=== PATIENT | female | born 1965 | race Caucasian/White ===

== ENCOUNTER 2016-09-21 14:00 | Outpatient (CLI) | payer MEDICARE, MEDICAID ==
[~2016-09-21 14:00] MED LIST: ?ANTIBIOTIC; ACHD5005 PO; AGM875T PO; ALBU0.8322 IH; AML5T PO; ANTIBIOTIC UNKNOWN; ARIXTRA SC; BUDE6HFA IH; BUME2TAB3 PO; CHOL50003 PO; CINNAMON PO; CIPR-225 PO; CLOT15CR6 TOP; CLPD75T PO; CYCL10TA9 PO; D50KC PO; DCS100C PO; DIPH25TA82 PO; DOXY100C2 PO; DRON5CAP PO; ESCI20TA2 PO; FENO145T2 PO; FENO48TA PO; FLT05NA16 NSEACH; GABA800T2 PO; HYDR-3714 PO; INSU100C4 SQ; INSU100I14 SQ; INSU100I4 SQ; IPRA3AMP11 INH; LEVA1.25 IH; LEVO75TA57 PO; LEVO75TA6 PO; LISI-594 PO; LISI40TA PO; LVB.63NB3 IH; METH500T7 PO; MORP15TA8 PO; MORP30TA28 PO; MS15TCR PO; MSCONTIN PO; NCT21TD TOP; NF-XOP-HFA INH; NITR-65 PO; OMEP20CA12 PO; ONDA8TAB13 SL; ONDA8TAB9 PO; ONDN4T PO; OXYC-197 PO; OXYC1TAB16 PO; OXYC20TA54; OXYC20TA63 PO; OXYC5TAB71; OXYGEN NS; PHEN-640 PO; POTA10CA43 PO; PRD10T PO; PRD20T PO; PRM25T PO; PROM25TA14 PO; Patanol OU; QTP25T PO; RIVA20TA4 PO; SENN-109 PO; SIMV20TA3 PO; SIMV40TA4 PO; TIZA4TAB55 PO; VARE0.5T PO; VIT D; [UNRECOGNIZED DRUG - CODE] SQ; [UNRECOGNIZED DRUG - OTHER] OU; [UNRECOGNIZED DRUG - OTHER] OU; [UNRECOGNIZED DRUG - OTHER] SQ
== END 2016-09-21 14:37 | disposition home or self-care (01) ==
LOC: SLEEP 14:00
PROVIDERS: ATTEND Nurse Practitioner Family
DX: G47.33 Obstructive sleep apnea (adult) (pediatric) (principal)

== ENCOUNTER → 2016-10-11 | Outpatient (CLI) | payer MEDICARE, MEDICAID ==
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
--- NOTE | 2016-10-11 18:09 | Diagnostic Imaging Report ---
EXAM: Bilateral breast ultrasound. INDICATION: Bilateral breast lumpiness. FINDINGS: The four-quadrants central subareolar regions of each breast were scanned with no underlying abnormality seen. IMPRESSION: Negative study. Prominent veins were seen in the breasts, particularly on the right side. If this is associated with head and neck or upper extremity swelling, then consider evaluation of the upper extremity veins with the Doppler ultrasound. Annual screening mammogram is also recommended. BI-RADS 1. ACR BI-RADS Category 1: Negative. Result letter will be mailed to the patient. Note: At least 10% of breast cancer is not imaged by mammography. Dictated by: Dictated on workstation # [id number]
== END ==
LOC: RAD 13:48
PROVIDERS: ATTEND Nurse Practitioner Adult Health
DX: N63 Unspecified lump in breast (principal)
CPT/HCPCS: 77066

== ENCOUNTER → 2016-10-12 | Outpatient (CLI) | payer MEDICARE, MEDICAID ==
[2016-10-12 15:57] LABS: ABG BASE EXCESS 1.5 MMOL/L (-2.5-2.5); ABG HCO3 27 MMOL/L (23-27); ABG OXYGEN SATURATION 89 % (94-100); ABG PCO2 52 MMHG (35-45); ABG PO2 52 MMHG (79-93); ABG TCO2 28.7 MMOL/L (21.0-31.0)
[2016-10-12 16:02] LABS: ABG PH 7.33 (7.37-7.43); PATIENT TEMP 96.6
== END ==
LOC: RT 15:24
PROVIDERS: ATTEND Internal Medicine Critical Care Medicine
DX: J44.9 Chronic obstructive pulmonary disease, unspecified (principal); R06.02 Shortness of breath; Z72.0 Tobacco use; M32.9 Systemic lupus erythematosus, unspecified; N63 Unspecified lump in breast; E66.9 Obesity, unspecified
CPT/HCPCS: 82805

== ENCOUNTER 2016-11-04 14:50 | Outpatient (RCR) | payer MEDICARE, MEDICAID ==
[2016-09-28 14:50] LABS: BASOPHILS % (AUTO) 0 % (0-10); EOSINOPHILS # (AUTO) 0.1 10^3/uL (0.0-0.3); EOSINOPHILS % (AUTO) 2 % (0-10); LYMPHOCYTES # (AUTO) 1.6 X 10^3 (1.0-4.0); LYMPHOCYTES % (AUTO) 26 % (12-44); MEAN CORPUSCULAR HEMOGLOBIN 33 PG (25-34); MEAN CORPUSCULAR HGB CONC 34 G/DL (32-36); MEAN CORPUSCULAR VOLUME 98 FL (80-99); MONOCYTES # (AUTO) 0.4 X 10^3 (0.0-1.0); MONOCYTES % (AUTO) 6 % (0-12); NEUTROPHILS # (AUTO) 4.1 X 10^3 (1.8-7.8); NEUTROPHILS % (AUTO) 66 % (42-75); PLATELET COUNT 118 10^3/uL (130-400); RED CELL DISTRIBUTION WIDTH 12.9 % (10.0-14.5); WHITE BLOOD COUNT 6.2 10^3/uL (4.3-11.0)
[2016-09-28 15:21] LABS: ALANINE AMINOTRANSFERASE 16 U/L (0-55); ALBUMIN 4.1 GM/DL (3.2-4.5); ANION GAP 7 MMOL/L (5-14); ASPARTATE AMINO TRANSFERASE 16 U/L (5-34); BILIRUBIN,TOTAL 0.7 MG/DL (0.1-1.0); BLOOD UREA NITROGEN 10 MG/DL (7-18); BUN/CREATININE RATIO 13 (0-20); CALCIUM 9.9 MG/DL (8.5-10.1); CARBON DIOXIDE 27 MMOL/L (21-32); CHLORIDE 104 MMOL/L (98-107); CREATININE SERUM 0.78 MG/DL (0.60-1.30); GFR ESTIMATED > 60; GLUCOSE 145 MG/DL (70-105); SODIUM 138 MMOL/L (135-145); TOTAL PROTEIN 6.8 GM/DL (6.4-8.2)
[2016-11-07] MEDS ORDERED: VARE1TAB21 PO (08:31)
== END 2016-12-27 | disposition home or self-care (01) ==
LOC: ONC 14:50
PROVIDERS: ATTEND Internal Medicine Hematology & Oncology
DX: M32.10 Systemic lupus erythematosus, organ or system involvement unspecified (principal); E11.9 Type 2 diabetes mellitus without complications; E03.9 Hypothyroidism, unspecified; I10 Essential (primary) hypertension; J44.9 Chronic obstructive pulmonary disease, unspecified; F32.9 Major depressive disorder, single episode, unspecified; F17.200 Nicotine dependence, unspecified, uncomplicated; G47.33 Obstructive sleep apnea (adult) (pediatric); Z86.718 Personal history of other venous thrombosis and embolism; Z86.711 Personal history of pulmonary embolism; Z86.2 Personal history of diseases of the blood and blood-forming organs and certain disorders involving the immune mechanism; Z79.01 Long term (current) use of anticoagulants
CPT/HCPCS: 80053; 82728; 85025; 99213

== ENCOUNTER 2016-11-07 07:58 | Emergency (ER) | payer MEDICARE, MEDICAID ==
[~2016-11-07] VITALS: Ht 170.2 cm; Wt 68.0 kg
[2016-11-07 08:28] LABS: BILIRUBIN,URINE NEGATIVE (NEGATIVE); KETONES,URINE NEGATIVE (NEGATIVE); LEUKOCYTE ESTERASE ,URINE 1+ (NEGATIVE); NITRITE,URINE NEGATIVE (NEGATIVE); PH,URINE 6 (5-9); PROTEIN,URINE NEGATIVE (NEGATIVE); UROBILINOGEN,URINE NORMAL (NORMAL)
[2016-11-07] MEDS ORDERED: fentaNYL INJECTION 100 MCG/2 ML AMP IVP ONE ×3 (08:30→10:00)
[2016-11-07] MEDS ORDERED: ONDANSETRON 4 MG/2 ML (SDV) Z0FRAN IVP ONE (08:30)
[2016-11-07] MEDS ORDERED: NS IV 1000 ML 1,000 ML IV SCH (08:30)
[2016-11-07] MEDS ORDERED: VARE1TAB21 PO (08:31)
[2016-11-07 08:55] LABS: BASOPHILS % (AUTO) 0 % (0-10); EOSINOPHILS # (AUTO) 0.2 10^3/uL (0.0-0.3); EOSINOPHILS % (AUTO) 2 % (0-10); LYMPHOCYTES # (AUTO) 2.9 X 10^3 (1.0-4.0); LYMPHOCYTES % (AUTO) 42 % (12-44); MEAN CORPUSCULAR HEMOGLOBIN 34 PG (25-34); MEAN CORPUSCULAR HGB CONC 35 G/DL (32-36); MEAN CORPUSCULAR VOLUME 96 FL (80-99); MEAN PLATELET VOLUME 10.6 FL (7.4-10.4); MONOCYTES # (AUTO) 0.4 X 10^3 (0.0-1.0); MONOCYTES % (AUTO) 6 % (0-12); NEUTROPHILS # (AUTO) 3.5 X 10^3 (1.8-7.8); NEUTROPHILS % (AUTO) 50 % (42-75); PLATELET COUNT 136 10^3/uL (130-400); RED BLOOD COUNT 4.33 10^6/uL (4.35-5.85); RED CELL DISTRIBUTION WIDTH 12.4 % (10.0-14.5)
[2016-11-07 09:11] LABS: ALANINE AMINOTRANSFERASE 18 U/L (0-55); ALBUMIN 4.2 GM/DL (3.2-4.5); ANION GAP 14 MMOL/L (5-14); ASPARTATE AMINO TRANSFERASE 17 U/L (5-34); BILIRUBIN,TOTAL 0.4 MG/DL (0.1-1.0); BLOOD UREA NITROGEN 18 MG/DL (7-18); BUN/CREATININE RATIO 22; CALCIUM 9.9 MG/DL (8.5-10.1); CARBON DIOXIDE 23 MMOL/L (21-32); CHLORIDE 101 MMOL/L (98-107); CREATININE SERUM 0.81 MG/DL (0.60-1.30); GFR ESTIMATED > 60; GLUCOSE 107 MG/DL (70-105); POTASSIUM 3.8 MMOL/L (3.6-5.0); SODIUM 138 MMOL/L (135-145); TOTAL PROTEIN 7.2 GM/DL (6.4-8.2)
--- NOTE | 2016-11-07 09:54 | ED Back Pain ---
General Chief Complaint: Back Problems Stated Complaint: BACK PAIN Nursing Triage Note: PT STATES HAS R FLANK PAIN AND LOW BACK PAIN TO FRONT OF LOW ABD. PT HAS HX KIDNEY STONES. SUDDEN ONSET OF PAIN AND NAUSEA Nursing Sepsis Screen: No Definite Risk Source of Information: Patient Exam Limitations: No Limitations History of Present Illness Time Seen by Provider: 09:49 Initial Comments The patient is a 51-year-old white female who is had 71 contacts over the past 6 years. She reports that she experienced the sudden onset of right flank pain this morning. It is now radiating to the right groin. She has a past history of kidney stones. She has not noted hematuria. Timing/Duration: 4-6 Hours Severity: Moderate Pain/Injury Location: Back, Pelvis Method of Injury: Unknown Allergies and Home Medications Allergies Coded Allergies: droperidol (Unverified Allergy, Severe, SOB, 02/22/11) ranitidine HCl (Verified Allergy, Intermediate, SOB, DIAPHORETIC, 02/22/11) Soap (Unverified Allergy, Unknown, RASH, 07/03/13) aspirin (Verified Allergy, Unknown, 07/03/13) codeine (Verified Allergy, Unknown, 07/03/13) ketorolac tromethamine (Verified Allergy, Unknown, 07/03/13) metoclopramide HCl (Unverified Allergy, Unknown, 07/03/13) povidone-iodine (Unverified Allergy, Unknown, RASH, 07/03/13) prochlorperazine edisylate (Unverified Allergy, Unknown, 07/03/13) prochlorperazine maleate (Unverified Allergy, Unknown, 07/03/13) sumatriptan (Verified Allergy, Unknown, 07/03/13) sumatriptan succinate (Verified Allergy, Unknown, 07/03/13) Home Medications Albuterol Sulfate 2.5 Mg/3 Ml Solution, 2.5 MG IH Q4HR PRN, (Reported) NEEDED FOR SHORTNESS OF BREATH Budesonide/Formoterol Fumarate 10.2 Gm Hfa.aer.ad, 2 PUFF IH BID, (Reported) Cholecalciferol 5,000 Unit Tablet, 5,000 UNIT PO 1200, (Reported) Gabapentin 800 Mg Tablet, 800 MG PO TID, (Reported) Levothyroxine Sodium 75 Mcg Tablet, 75 MCG PO DAILY @ 0800, (Reported) Lisinopril 40 Mg Tablet, 40 MG PO DAILY, (Reported) Omeprazole 20 Mg Capsule.dr, 20 MG PO EVERY AFTERNOON, (Reported) Ondansetron 8 Mg Tab.rapdis, 8 MG SL Q8H PRN for NAUSEA/VOMITING, (Reported) Oxycodone HCl 5 Mg Tablet, #120 (Reported) Oxycodone HCl 20 Mg Tab.er.12h, #60 (Reported) Oxycodone Hcl 20 Mg Tab.sr.12h, 20 MG PO BID, (Reported) Potassium Chloride 10 Meq Capsule.sa, 10 MEQ PO DAILY, (Reported) Rivaroxaban 20 Mg Tablet, 20 MG PO DAILY, (Reported) Sennosides/Docusate Sodium 1 Each Tablet, 2 EACH PO BID, #120 Ref 0 Prescribed by: JENNY MARIE on 04/07/16 1641 Simvastatin 20 Mg Tablet, 20 MG PO HS, (Reported) Varenicline Tartrate 1 Each Tab.ds.pk, Unknown Dose PO, (Reported) [Cinnamon] , 2 CAP PO BID, (Reported) [Patanol Opth. Drops] , 2 DROPS OU DAILY PRN, (Reported) two drops to eyes as needed for allergy symptoms Constitutional: see HPI EENTM: no symptoms reported, other (droopy eye) Respiratory: no symptoms reported Cardiovascular: no symptoms reported Gastrointestinal: no symptoms reported Genitourinary: see HPI Musculoskeletal: back pain Psychiatric/Neurological: No Symptoms Reported Past Ikkuutz-Bwffhm-Tuzurn Hx Patient Social History Alcohol Use: Denies Use Recreational Drug Use: No Type Used: Cigarettes Recent Foreign Travel: No Contact w/Someone Who Travel: No Recent Infectious Disease Expo: No Recent Hopitalizations: No Immunizations Up To Date Tetanus Booster (TDap): Less than 5yrs Date of Pneumonia Vaccine: Jan 16, 2014 Date of Influenza Vaccine: Jan 17, 2016 Seasonal Allergies Seasonal Allergies: No Surgeries HX Surgeries: Yes Surgeries: Abdominal, Appendectomy, Bowel Surgery, Cardiac, Eye Surgery, Gallbladder, Hysterectomy, Oophorectomy, Orthopedic, Vascular Surgery Respiratory Hx Respiratory Disorders: Yes (O2 AND CPAP) Respiratory Disorders: Asthma, Chronic Bronchitis, Pulmonary Embolism, Sleep Apnea, COPD Cardiovascular Hx Cardiac Disorders: Yes (MULTIPLE DVT'S IN ARMS AND LEGS, 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 Genitourinary Hx Genitourinary Disorders: Yes Genitourinary Disorders: Kidney Stones, Renal Failure Gastrointestinal Hx Gastrointestinal Disorders: Yes Gastrointestinal Disorders: Gastroesophageal Reflux, Obstructive Bowel, Pancreatitis, Gall Bladder Disease Musculoskeletal Hx Musculoskeletal Disorders: Yes (CHRONIC GENERALIZED PAIN--NARCOTIC DEPENDENT ) Musculoskeletal Disorders: Arthritis, Chronic Back Pain Endocrine Hx Endocrine Disorders: Yes Endocrine Disorders: Diabetes, Insulin dep, Hypothyroidsim, Lupus HEENT HX ENT Disorders: Yes (pt is blind in left eye) Hearing Impairment: Denies Cancer Hx Cancer: No Psychosocial Hx Psychiatric Problems: Yes Behavioral Health Disorders: Anxiety, Depression Integumentary HX Skin/Integumentary Disorder: No Blood Transfusions Hx Blood Disorders: Yes (DVT'S/P.E.'S ; PAD) Adverse Reaction to a Blood Tr: No Family Medical History Significant Family History: Heart Disease, Cancer, GI Disease Family Medial History: Asthma 19 FATHER G8 SISTER Diabetes mellitus G8 SISTER Hypercholesterolemia G8 SISTER Hypertension G8 SISTER Kidney disease 19 MOTHER Myocardial infarction 19 FATHER No Family History of: AIDS Abdominal aortic aneurysm [place]'s disease Alcoholism Alzheimer's disease Aphasia Arthritis Cancer of mouth Cardiovascular disease Cataracts Colon cancer Completed stroke Congenital disease Congenital heart disease Coronary thrombosis Cystic fibrosis Deafness or hearing loss Dementia Drug abuse Dysphasia Fibrocystic disease of breast Gastroenteritis Glaucoma Headache disorder Infertility Neoplasm Not obtainable due to adoption Osteoporosis Parkinson's disease Prostate cancer Psychosocial problem Respiratory disorder Seizure disorder Severe allergy Thyroid disease Tuberculosis Visual disorder Physical Exam Vital Signs Vital Sign - Last 12Hours 11/07/16 08:05 Temp 97.4 Pulse 77 Resp 18 B/P (MAP) 130/94 Pulse Ox 99 Capillary Refill : Less Than 3 Seconds General Appearance: Moderate Distress (right eye appears droopy, she states left eye is the problem.), Other HEENT: Other (right eye appears droopy, she states left eye is the problem.) Neck: Normal Inspection Cardiovascular: Regular Rate, Rhythm, No Edema, No Gallop, No JVD, No Murmur, Normal Peripheral Pulses Respiratory: Chest Non Tender, Lungs Clear, Normal Breath Sounds, No Accessory Muscle Use, No Respiratory Distress, Accessory Muscle Use Gastrointestinal: Normal Bowel Sounds, No Organomegaly, No Pulsatile Mass, Non Tender, Soft Back: CVA Tenderness (R), Other (tender suprapubic) Neurologic/Psychiatric: Alert, Oriented x3, No Motor/Sensory Deficits, Normal Mood/Affect, 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 Bronzy crew sock bilateral ankles) Lymphatic: No Adenopathy Progress/Results/Core Measures Results/Orders Lab Results Laboratory Tests Test 11/07/16 08:22 11/07/16 08:45 Range/Units Urine Color YELLOW Urine Clarity CLEAR Urine pH 6 5-9 Urine Specific Bradford 1.025 H 1.016-1.022 Urine Protein NEGATIVE NEGATIVE Urine Glucose (UA) NEGATIVE NEGATIVE Urine Ketones NEGATIVE NEGATIVE Urine Nitrite NEGATIVE NEGATIVE Urine Bilirubin NEGATIVE NEGATIVE Urine Urobilinogen NORMAL NORMAL MG/DL Urine Leukocyte Esterase 1+ H NEGATIVE Urine RBC (Auto) 2+ H NEGATIVE Urine RBC 2-5 H /HPF Urine WBC 5-10 H /HPF Urine Squamous Epithelial Cells 10-25 H /HPF Urine Crystals NONE /LPF Urine Bacteria FEW H /HPF Urine Casts NONE /LPF Urine Mucus NEGATIVE /LPF Urine Culture Indicated YES White Blood Count 7.0 4.3-11.0 10^3/uL Red Blood Count 4.33 L 4.35-5.85 10^6/uL Hemoglobin 14.5 11.5-16.0 G/DL Hematocrit 42 35-52 % Mean Corpuscular Volume 96 80-99 FL Mean Corpuscular Hemoglobin 34 25-34 PG Mean Corpuscular Hemoglobin Concent 35 32-36 G/DL Red Cell Distribution Width 12.4 10.0-14.5 % Platelet Count 136 130-400 10^3/uL Mean Platelet Volume 10.6 H 7.4-10.4 FL Neutrophils (%) (Auto) 50 42-75 % Lymphocytes (%) (Auto) 42 12-44 % Monocytes (%) (Auto) 6 0-12 % Eosinophils (%) (Auto) 2 0-10 % Basophils (%) (Auto) 0 0-10 % Neutrophils # (Auto) 3.5 1.8-7.8 X 10^3 Lymphocytes # (Auto) 2.9 1.0-4.0 X 10^3 Monocytes # (Auto) 0.4 0.0-1.0 X 10^3 Eosinophils # (Auto) 0.2 0.0-0.3 10^3/uL Basophils # (Auto) 0.0 0.0-0.1 10^3/uL Sodium Level 138 135-145 MMOL/L Potassium Level 3.8 3.6-5.0 MMOL/L Chloride Level 101 98-107 MMOL/L Carbon Dioxide Level 23 21-32 MMOL/L Anion Gap 14 5-14 MMOL/L Blood Urea Nitrogen 18 7-18 MG/DL Creatinine 0.81 0.60-1.30 MG/DL Estimat Glomerular Filtration Rate > 60 BUN/Creatinine Ratio 22 Glucose Level 107 H 70-105 MG/DL Calcium Level 9.9 8.5-10.1 MG/DL Total Bilirubin 0.4 0.1-1.0 MG/DL Aspartate Amino Transf (AST/SGOT) 17 5-34 U/L Alanine Aminotransferase (ALT/SGPT) 18 0-55 U/L Alkaline Phosphatase 114 40-136 U/L Total Protein 7.2 6.4-8.2 GM/DL Albumin 4.2 3.2-4.5 GM/DL Lipase 28 8-78 U/L My Orders Orders - MARIBELL RIVERA MD Cbc With Automated Diff (11/07/16 08:11) Comprehensive Metabolic Panel (11/07/16 08:11) Ua Culture If Indicated (11/07/16 08:11) Ns Iv 1000 Ml (Sodium Chloride 0.9%) (11/07/16 08:30) Fentanyl Injection (Sublimaze Injection (11/07/16 08:30) Ondansetron Injection (Zofran Injectio (11/07/16 08:30) Urine Culture (11/07/16 08:22) Ct Abd/Pelvis Wo(Kidney Stone) (11/07/16 09:48) Fentanyl Injection (Sublimaze Injection (11/07/16 10:00) Fentanyl Injection (Sublimaze Injection (11/07/16 10:00) Lipase (11/07/16 11:34) Hydromorphone Injection (Dilaudid Inject (11/07/16 12:00) Medications Given in ED Current Medications Medications Dose Ordered Sig/Aye Route Start Time Stop Time Status Last Admin Dose Admin Fentanyl Citrate 50 mcg ONCE ONCE IVP 11/07/16 08:30 11/07/16 08:31 DC 11/07/16 08:35 50 MCG Fentanyl Citrate 75 mcg ONCE ONCE IVP 11/07/16 10:00 11/07/16 10:01 DC 11/07/16 09:57 75 MCG Ondansetron HCl 8 mg ONCE ONCE IVP 11/07/16 08:30 11/07/16 08:31 DC 11/07/16 08:35 8 MG Vital Signs/I&O Vital Sign - Last 12Hours 11/07/16 08:05 Temp 97.4 Pulse 77 Resp 18 B/P (MAP) 130/94 Pulse Ox 99 Blood Pressure Mean: 106 Departure Communication Progress Notes 1153 CT scan returned negative for ureteral stone. There is a 2 mm stone reported in the right kidney which does not explain the pain or distribution. The patient has a past history of pancreatitis which might explain the back component but does not address the groin component. We are awaiting a lipase. She continues to request pain medicine. She states that the pain at first was intermittent and is now constant. Impression Impression: Primary Impression: ABDOMINAL PAIN Disposition: HOME, SELF-CARE Condition: Stable/Unchanged Departure-Patient Inst. Decision time for Depature: 12:58 Referrals: FADUMO HICKEY DO (PCP) Primary Care Physician VICENTA COUGHLIN (Family) Primary Care Physician Patient Instructions: MANAGING YOUR CHRONIC PAIN Add. Discharge Instructions: All discharge instructions reviewed with patient and/or family. Voiced understanding. Your CT scan shows a considerable amount of stool throughout the colon. Acquire MiraLAX and use 4 g tonight and repeat in a.m. if no results. MARIBELL RIVERA MD Nov 07, 2016 09:54
--- NOTE | 2016-11-07 10:21 | Diagnostic Imaging Report ---
PROCEDURE: CT urinary tract, rule out kidney stone. TECHNIQUE: Multiple contiguous axial images were obtained through the abdomen and pelvis without the use of intravenous contrast. DATE: November 07, 2016. COMPARISON: Abdominal radiographs April 07, 2016. CT abdomen and pelvis April 05, 2016. INDICATION: 51-year-old female, right flank and low back pain. FINDINGS: There are limitations for evaluation of the abdominal organs, neoplastic processes, abscess, and limited evaluation of the vasculature relating to the lack of intravenous contrast. There is very mild atelectasis or scarring in the dependent aspect of the right lower lobe. There is a 4 mm short axis anterior pericardial lymph node. The heart is not enlarged. There is a small amount of gas branching within the liver. It is difficult to discern whether or not this is within the vasculature or bile ducts. The gallbladder is not seen and likely is surgically absent. There is no intrahepatic or extrahepatic bile duct dilation. The liver is unremarkable in size and contour. There is no gross distention of the main pancreatic duct. The pancreatic parenchyma is unremarkable. The spleen is normal in size. The adrenal glands are unremarkable. Unremarkable appearance of the renal parenchyma. There is a 1 mm nonobstructing left renal stone on axial image 58. The urinary collecting systems are not distended. There is no identified ureteral stone. The urinary bladder is unremarkable. The uterus is not seen and may be surgically absent. There is a large amount of stool within the colon. There are postoperative changes of bowel. There is no identified pneumatosis. There is no prominent bowel wall thickening. There are atherosclerotic calcifications. There is an inferior vena cava filter. There is a line within the inferior vena cava near its atrial insertion, extending from the left femoral region. This is passing through a stent. There is no identified abnormally enlarged lymph node in the abdomen or pelvis which specifically meets CT size criteria for adenopathy. There is no identified acute bony abnormality. IMPRESSION: CT ABDOMEN AND PELVIS. 1. A small amount of gas branching within the liver. It is difficult to discern whether or not this relates to portal venous gas or pneumobilia. There is no distention of the common bile duct or intrahepatic bile ducts. The patient is status post cholecystectomy. No identified pneumatosis or prominent bowel wall thickening. Correlation for cause recommended. 2. Punctate nonobstructing 1 mm left renal stone. No ureteral stone or hydronephrosis. Venous stent with left-sided venous catheter extending to the upper margin of the inferior vena cava near its atrial insertion. 3. A large amount of colonic stool. Dictated by: Dictated on workstation # [id number]
[2016-11-07] MEDS ORDERED: HYDROmorphone (DILAUDID) 2 MG/ML VIAL IVP ONE (12:00)
[2016-11-07] MEDS ORDERED: RT-ALBUTEROL/IPRATROPIUM 3 ML (DUONEB) VIAL INH ONE (13:45)
[2016-11-07 13:50] VITALS: BP 132/87
== END 2016-11-07 13:50 | disposition home or self-care (01) ==
LOC: EDUNIT# 07:58 → ER 07:59
DX: Z87.442 Personal history of urinary calculi (principal); Z79.01 Long term (current) use of anticoagulants
CPT/HCPCS: 36415; 74176; 80053; 81000; 83690; 85025; 87088; 96374; 96375; 96376; 99282

== ENCOUNTER 2016-12-15 17:38 | Emergency (ER) | payer MEDICARE, MEDICAID ==
[~2016-12-15] VITALS: Ht 170.2 cm; Wt 68.0 kg
[~2016-12-15 17:38] MED LIST changes: +VARE1TAB21 PO
--- OUTSIDE RECORDS SUMMARY | 2016-12-15 17:43 | XMS REPORT | Clinical Summary ---
Author Author [facility] Organization [facility] Address Unknown Phone Unavailable Care Team Providers Care Manager Transition Name Role Phone PCP Unavailable Source Comments Some departments are not documenting in the electronic medical record. If you do not see the information that you expected, contact Release of Information in the Health Information Management department at [phone] for further assistance in locating additional records.[facility] Allergies Active Allergy Reactions Severity Noted Date Comments Aspirin ANAPHYLAXIS 07/24/2013 Codeine ANAPHYLAXIS 07/24/2013 Prochlorperazine ANAPHYLAXIS 07/24/2013 Edisylate Droperidol ANAPHYLAXIS 07/24/2013 Sumatriptan Succinate SEE COMMENTS 07/24/2013 Arm swelling and rash per Pt. Metoclopramide Hcl ANAPHYLAXIS 07/24/2013 Ketorolac Tromethamine ANAPHYLAXIS 07/24/2013 Current Medications Prescription Sig. Disp. Refills Start End Date Status Date acetaminophen (TYLENOL) Take 2 Tabs by mouth 30 Tab 0 07/27/19 Active 325 mg tablet every 4 hours as needed 14 for Pain. bacitracin 500 unit/g Please apply Q Daily on 1 Container 0 07/27/19 Active topical ointment the wound. 14 tiZANidine (ZANAFLEX) 4 Take 1 Tab by mouth every 30 Tab 0 07/27/19 Active mg tablet 6 hours. 14 triamcinolone acetonide Apply to itching rash on 80 g 1 08/02/19 Active (KENALOG) 0.1 % topical arms and hand as needed. 14 ointment Only use it when it's itching. pregabalin (LYRICA) 25 mg Take 1 Cap by mouth twice 60 Cap 2 02/05/20 Active capsule daily. 15 Active Problems Problem Noted Date Suicidal ideation 07/24/2013 Social History Tobacco Use Types Packs/Day Years Used Date Current Every Day Smoker Cigarettes 1 Alcohol Use Drinks/Week oz/Week Comments No Sex Assigned at Date Recorded Not on file Last Filed Vital Signs Vital Sign Reading Time Taken Blood Pressure 112/61 07/26/2013 9:03 AM CDT Pulse 85 07/26/2013 10:20 AM CDT Temperature 36.5 C (97.7 F) 07/26/2013 9:03 AM CDT Respiratory Rate - - Oxygen Saturation 98% 07/26/2013 10:20 AM CDT Inhaled Oxygen - - Concentration Weight 86.8 kg (191 lb 5.8 oz) 07/24/2013 1:15 PM CDT Height - - Body Mass Index - - Plan of Treatment Health Maintenance Due Date Last Done Comments HEPATITIS C SCREENING 1964 PHYSICAL (COMPREHENSIVE) 08/11/1971 EXAM PERTUSSIS VACCINE 08/11/1975 TETANUS VACCINE 1981 CERVICAL CANCER SCREENING 1994 BREAST CANCER SCREENING 2004 COLORECTAL CANCER 2014 SCREENING INFLUENZA VACCINE 12/17/2016 Results Not on filefrom Last 3 Months
--- OUTSIDE RECORDS SUMMARY | 2016-12-15 17:43 | XMS REPORT | Continuity of Care Document ---
Author Author [facility] Organization [facility] Address Unknown Phone Unavailable Care Team Providers Care Medical Examiner Name Role Phone [employer] Unavailable Unavailable Problems Problem Status Onset Date Classification Date Reported Comments Source Acute gastritis, without mention of hemorrhage 11/07/2014 [facility] Abdominal pain, unspecified site 11/07/2014 Diagnosis [facility]. No data available for this section Problem 11/11/2014 [facility]. Medications Medication Details Route Status Patient Instructions Ordering Provider Order Date Source No Known Medications No known medications [facility] Allergies, Adverse Reactions, Alerts Substance Category Reaction Severity Reaction type Status Date Reported Comments Source Aspirin Assertion Drug allergy difficulty breathing [facility]. Codeine Assertion Drug allergy airway swelling [facility]. Prochlorperazine Assertion Drug allergy difficulty breathing [facility] Sumatriptan Assertion Drug allergy swelling at injection site [facility]. Droperidol Assertion Drug allergy breathing difficulty [facility] Metoclopramide Assertion Drug allergy difficulty breathing [facility]. Ketorolac Assertion Drug allergy difficulty breathing [facility] Immunizations Immunization Date Given Site Status Last Updated Comments Source No data available for this section No data available for this section [facility]. Results Vital Signs Encounters Location Location Details Encounter Type Encounter Number Reason For Visit Attending Provider ADM Date DC Date Status Source [facility] [id number] Outpatient [id number] Mariano Almonte 11/07/2014 [facility] Procedures Procedure Code Date Perfomer Comments Source Esophagogastroduodenoscopy, flexible, transoral; diagnostic, including collection of specimen(s) by brushing or washing, when performed (separate procedure) [id number] 11[facility]07[facility]2014 [facility] append[facility] bowel obstruction surgeries-X21 [facility] cholecystectomy [facility] iyn blood filter [facility] hysterectomy [facility] left eye surgeries-x2 [facility] left knee surgeries-x2 [facility] mary cath placements [facility]. power port left groin [facility] Plan of Care Social History Assessment and Plan Family History Value Date Source Advance Directives Order Name Results Value Date Source
--- OUTSIDE RECORDS SUMMARY | 2016-12-15 17:44 | XMS REPORT ---
Author Author MAI SAN [facility] Address [address] [place] [address] Care Team Providers Care Station Worker Name Role Phone MAI SAN Unavailable PROBLEMS Type Condition ICD9-CM Code [id number] Code Onset Dates Condition Status SNOMED Code Problem Sciatica, unspecified laterality M54.30 Active 58842509 Problem Major depressive disorder, recurrent episode, unspecified severity F33.9 Active 16625424 Problem Anxiety F41.9 Active 35516425 Problem Chronic obstructive pulmonary disease, unspecified COPD type J44.9 Active 81615462 Problem Carpal tunnel syndrome, right upper limb G56.01 Active 58899635 Problem Chronic pancreatitis, unspecified pancreatitis type K86.1 Active 546272443 Problem Generalized abdominal pain R10.84 Active 802068258 Problem Gastroesophageal reflux disease, esophagitis presence not specified K21.9 Active 186151844 Problem Hypothyroidism, unspecified type E03.9 Active 73196542 Problem Vitamin D deficiency E55.9 Active 46116846 Problem Tobacco abuse counseling Z71.6 Active 10005382 Problem Gastroesophageal reflux disease without esophagitis K21.9 Active 252583177 Problem Hyperlipidemia, unspecified hyperlipidemia E78.5 Active 14657366 Problem Proteinuria R80.9 Active 30090102 Problem Venous insufficiency I87.2 Active 91844816 Problem Acute cystitis with hematuria N30.01 Active 28461074 Problem Exacerbation of systemic lupus M32.9 Active 44982560 Problem Pneumonia due to infectious organism, unspecified laterality, unspecified part of lung J18.9 Active 516338482 Problem Nausea R11.0 Active 383962385 Problem Essential hypertension I10 Active 13956358 Problem Obstructive sleep apnea G47.33 Active 82017821 Problem Type 2 diabetes mellitus without complication E11.9 Active 35051853 Problem Chronic pain syndrome G89.4 Active 098555351 Problem Port catheter in place Z95.828 Active 726211784 Problem Presence of IVC filter Z95.828 Active 790016072 Problem History of small bowel obstruction Z87.19 Active 969300671 Problem History of pulmonary embolism Z86.711 Active 978006404 ALLERGIES Substance Reaction Event Type Date Status Ketorolac Trometh & Lidocaine shortness of breath Drug Allergy Mar, Active Compazine anaphylaxis Drug Allergy Mar, Active Reglan shortness of breath Drug Allergy Mar, Active Imitrex shortness of breath Drug Allergy Mar, Active Droperidol shortness of breath Drug Allergy Mar, Active Codeine-Guaifenesin shortness of breath Drug Allergy Mar, Active Ativan sedation Drug Allergy Mar, Active Aspirin shortness of breath Drug Allergy Mar, Active SOCIAL HISTORY No smoking Hx information available PLAN OF CARE Activity Details Follow Up 3 Weeks Reason:Anxiety, depression VITAL SIGNS MEDICATIONS Unknown Medications RESULTS No Results PROCEDURES Procedure Date Ordered Related Diagnosis Body Site Psych diagnostic evaluation, new patient Apr 12, 2016 IMMUNIZATIONS No Known Immunizations
--- OUTSIDE RECORDS SUMMARY | 2016-12-15 17:44 | XMS REPORT ---
Author Author CED VICENTA Organization [facility] Address [address] [place] [address] Care Team Providers Care Cigarette Machines Mechanic Name Role Phone ELEAZAR COUGHLINNETTE Unavailable PROBLEMS Type Condition ICD9-CM Code [id number] Code Onset Dates Condition Status SNOMED Code Problem Sciatica, unspecified laterality M54.30 Active 83548885 Problem Major depressive disorder, recurrent episode, unspecified severity F33.9 Active 60950365 Problem Anxiety F41.9 Active 34945903 Problem Chronic obstructive pulmonary disease, unspecified COPD type J44.9 Active 21932617 Problem Carpal tunnel syndrome, right upper limb G56.01 Active 90689141 Problem Chronic pancreatitis, unspecified pancreatitis type K86.1 Active 132161423 Problem Generalized abdominal pain R10.84 Active 743068122 Problem Gastroesophageal reflux disease, esophagitis presence not specified K21.9 Active 971444631 Problem Hypothyroidism, unspecified type E03.9 Active 53395103 Problem Vitamin D deficiency E55.9 Active 34849257 Problem Tobacco abuse counseling Z71.6 Active 14207990 Problem Gastroesophageal reflux disease without esophagitis K21.9 Active 990081595 Problem Hyperlipidemia, unspecified hyperlipidemia E78.5 Active 63953994 Problem Proteinuria R80.9 Active 43605596 Problem Venous insufficiency I87.2 Active 58785275 Problem Acute cystitis with hematuria N30.01 Active 56733287 Problem Exacerbation of systemic lupus M32.9 Active 79451733 Problem Pneumonia due to infectious organism, unspecified laterality, unspecified part of lung J18.9 Active 886261840 Problem Nausea R11.0 Active 964405890 Problem Essential hypertension I10 Active 14313443 Problem Obstructive sleep apnea G47.33 Active 30448216 Problem Type 2 diabetes mellitus without complication E11.9 Active 45500840 Problem Chronic pain syndrome G89.4 Active 847308926 Problem Port catheter in place Z95.828 Active 089235989 Problem Presence of IVC filter Z95.828 Active 232307268 Problem History of small bowel obstruction Z87.19 Active 730168884 Problem History of pulmonary embolism Z86.711 Active 849758433 ALLERGIES Unknown Allergies SOCIAL HISTORY No smoking Hx information available PLAN OF CARE VITAL SIGNS MEDICATIONS Medication Instructions Dosage Frequency Start Date End Date Duration Status Amlodipine Besylate 10 mg Orally Once a day 1 tablet 24h Mar, 30 day(s) Active RESULTS No Results PROCEDURES No Known procedures IMMUNIZATIONS No Known Immunizations
--- OUTSIDE RECORDS SUMMARY | 2016-12-15 17:44 | XMS REPORT ---
Author Author CED VICENTA Organization [facility] Address [address] [place] [address] Care Team Providers Care Transportation Planner Name Role Phone ELEAZAR COUGHLINNETTE Unavailable PROBLEMS Type Condition ICD9-CM Code [id number] Code Onset Dates Condition Status SNOMED Code Problem Sciatica, unspecified laterality M54.30 Active 78353142 Problem Major depressive disorder, recurrent episode, unspecified severity F33.9 Active 19902595 Problem Anxiety F41.9 Active 69305511 Problem Chronic obstructive pulmonary disease, unspecified COPD type J44.9 Active 99870285 Problem Carpal tunnel syndrome, right upper limb G56.01 Active 19107746 Problem Chronic pancreatitis, unspecified pancreatitis type K86.1 Active 455038340 Problem Generalized abdominal pain R10.84 Active 199055256 Problem Gastroesophageal reflux disease, esophagitis presence not specified K21.9 Active 474103447 Problem Hypothyroidism, unspecified type E03.9 Active 16994392 Problem Vitamin D deficiency E55.9 Active 89838086 Problem Tobacco abuse counseling Z71.6 Active 05748445 Problem Gastroesophageal reflux disease without esophagitis K21.9 Active 662352733 Problem Hyperlipidemia, unspecified hyperlipidemia E78.5 Active 74433910 Problem Proteinuria R80.9 Active 31513471 Problem Venous insufficiency I87.2 Active 07442055 Problem Acute cystitis with hematuria N30.01 Active 30077913 Problem Exacerbation of systemic lupus M32.9 Active 25586647 Problem Pneumonia due to infectious organism, unspecified laterality, unspecified part of lung J18.9 Active 668980527 Problem Nausea R11.0 Active 268047167 Problem Essential hypertension I10 Active 90697743 Problem Obstructive sleep apnea G47.33 Active 12595300 Problem Type 2 diabetes mellitus without complication E11.9 Active 36506370 Problem Chronic pain syndrome G89.4 Active 258331489 Problem Port catheter in place Z95.828 Active 014443600 Problem Presence of IVC filter Z95.828 Active 888792470 Problem History of small bowel obstruction Z87.19 Active 965090652 Problem History of pulmonary embolism Z86.711 Active 252427498 ALLERGIES Substance Reaction Event Type Date Status [...] PLAN OF CARE Activity Details Follow Up 2 - 3 Days Reason:uti VITAL SIGNS Height 67 in 2016-04-07 Weight 155 lbs 2016-04-07 Temperature 97.7 degrees Fahrenheit 2016-04-07 Heart Rate 96 bpm 2016-04-07 Respiratory Rate 22 2016-04-07 BMI 24.27 kg/m2 2016-04-07 Blood pressure systolic 180 mmHg 2016-04-07 Blood pressure diastolic 100 mmHg 2016-04-07 MEDICATIONS Medication Instructions Dosage Frequency Start Date End Date Duration Status Timolol 0.5 % Ophthalmic 2 times a day 1 drop into affected eye 12h Active Zanaflex 4 MG Orally Three times a day 1 tablet as needed 8h Feb, Active Xarelto 20 mg take 1 tablet (20 mg) by oral route once daily with the evening meal Nov, Active Sinus & Allergy 12 Hour 120 MG Orally PRN 1 tablet as needed Active Simvastatin 20 mg 1 tablet by Oral route 1 time per day Nov, Active Eye Allergy Relief 0.025-0.3 % Ophthalmic PRN 2 drop into affected eye as needed Active Omeprazole 20 mg take 1 capsule (20 mg) by oral route once daily before a meal Jun, Active Horizant 600 MG Orally twice a day 1 tablet in the evening with food 12h Active Oxycodone HCl 5 MG Orally every 6 hrs 1 tablet 6h Active Cymbalta 60 mg Orally twice a day 1 capsule 12h Active Albuterol Sulfate 90 mcg/actuation 2 puffs by Inhalation route every 4-6 hours as needed for 30 days PRN May, Active Levothyroxine Sodium 75 MCG TAKE 1 TABLET BY MOUTH DAILY Active Lisinopril 20 mg Orally Once a day 1 tablet 24h Dec, Active OxyContin 20 MG Orally every 12 hrs 1 tablet 12h Active Zofran ODT 8 MG sublingually as needed 1 tablet by Oral route every 8 hours PRN nausea or vomiting Apr, Active DuoNeb 0.5 mg-3 mg(2.5 mg base)/3 mL 3 mL by Inhalation route 4 times per day PRN Dec, Active Vitamin D3 5000 UNIT Orally Once a day 1 capsule 24h Active Nitrofurantoin 100 MG Orally 2 times a day x 10 days 1 capsule with food Active RESULTS No Results PROCEDURES Procedure Date Ordered Related Diagnosis Body Site [facility] VISIT ESTABLISHED PATIENT Apr 07, 2016 Office Visit, Est Pt., Level 3 Apr 07, 2016 IMMUNIZATIONS No Known Immunizations
--- OUTSIDE RECORDS SUMMARY | 2016-12-15 17:45 | XMS REPORT ---
Author Author CED VICENTA Organization [facility] Address [address] [place] [address] Care Team Providers Care Railroad Car Inspector Name Role Phone ELEAZAR COUGHLINNETTE Unavailable PROBLEMS Type Condition ICD9-CM Code [id number] Code Onset Dates Condition Status SNOMED Code Problem Sciatica, unspecified laterality M54.30 Active 12972603 Problem Major depressive disorder, recurrent episode, unspecified severity F33.9 Active 22111247 Problem Anxiety F41.9 Active 06100826 Problem Chronic obstructive pulmonary disease, unspecified COPD type J44.9 Active 49523348 Problem Carpal tunnel syndrome, right upper limb G56.01 Active 98902271 Problem Chronic pancreatitis, unspecified pancreatitis type K86.1 Active 133516161 Problem Generalized abdominal pain R10.84 Active 060726265 Problem Gastroesophageal reflux disease, esophagitis presence not specified K21.9 Active 578418162 Problem Hypothyroidism, unspecified type E03.9 Active 21936147 Problem Vitamin D deficiency E55.9 Active 79468247 Problem Tobacco abuse counseling Z71.6 Active 78465606 Problem Gastroesophageal reflux disease without esophagitis K21.9 Active 698645621 Problem Hyperlipidemia, unspecified hyperlipidemia E78.5 Active 70857443 Problem Proteinuria R80.9 Active 52867106 Problem Venous insufficiency I87.2 Active 83288030 Problem Acute cystitis with hematuria N30.01 Active 30827772 Problem Exacerbation of systemic lupus M32.9 Active 04381980 Problem Pneumonia due to infectious organism, unspecified laterality, unspecified part of lung J18.9 Active 348202012 Problem Nausea R11.0 Active 796532380 Problem Essential hypertension I10 Active 17803082 Problem Obstructive sleep apnea G47.33 Active 64395091 Problem Type 2 diabetes mellitus without complication E11.9 Active 40800357 Problem Chronic pain syndrome G89.4 Active 444618623 Problem Port catheter in place Z95.828 Active 447899627 Problem Presence of IVC filter Z95.828 Active 798589937 Problem History of small bowel obstruction Z87.19 Active 014226646 Problem History of pulmonary embolism Z86.711 Active 690973523 ALLERGIES Unknown Allergies SOCIAL HISTORY No smoking Hx information available PLAN OF CARE VITAL SIGNS MEDICATIONS Unknown Medications RESULTS No Results PROCEDURES No Known procedures IMMUNIZATIONS No Known Immunizations
--- OUTSIDE RECORDS SUMMARY | 2016-12-15 17:45 | XMS REPORT ---
Author Author CED VICENTA Organization [facility] Address [address] [place] [address] Care Team Providers Care Pickler Helper Name Role Phone ELEAZAR COUGHLINNETTE Unavailable PROBLEMS Type Condition ICD9-CM Code NNC06-CU Code Onset Dates Condition Status SNOMED Code Problem Sciatica, unspecified laterality M54.30 Active 79169496 Problem Major depressive disorder, recurrent episode, unspecified severity F33.9 Active 72007602 Problem Anxiety F41.9 Active 91790161 Problem Chronic obstructive pulmonary disease, unspecified COPD type J44.9 Active 06885798 Problem Carpal tunnel syndrome, right upper limb G56.01 Active 88263604 Problem Chronic pancreatitis, unspecified pancreatitis type K86.1 Active 964780166 Problem Generalized abdominal pain R10.84 Active 590386146 Problem Gastroesophageal reflux disease, esophagitis presence not specified K21.9 Active 447111243 Problem Hypothyroidism, unspecified type E03.9 Active 29283055 Problem Vitamin D deficiency E55.9 Active 50920320 Problem Tobacco abuse counseling Z71.6 Active 29894255 Problem Gastroesophageal reflux disease without esophagitis K21.9 Active 650342357 Problem Hyperlipidemia, unspecified hyperlipidemia E78.5 Active 46297582 Problem Proteinuria R80.9 Active 31441804 Problem Venous insufficiency I87.2 Active 76289773 Problem Acute cystitis with hematuria N30.01 Active 04605682 Problem Exacerbation of systemic lupus M32.9 Active 17577724 Problem Pneumonia due to infectious organism, unspecified laterality, unspecified part of lung J18.9 Active 655980939 Problem Nausea R11.0 Active 204530465 Problem Essential hypertension I10 Active 44074557 Problem Obstructive sleep apnea G47.33 Active 32761614 Problem Type 2 diabetes mellitus without complication E11.9 Active 86297819 Problem Chronic pain syndrome G89.4 Active 669999629 Problem Port catheter in place Z95.828 Active 961101870 Problem Presence of IVC filter Z95.828 Active 668632898 Problem History of small bowel obstruction Z87.19 Active 057476239 Problem History of pulmonary embolism Z86.711 Active 186738522 ALLERGIES Unknown Allergies SOCIAL HISTORY No smoking Hx information available PLAN OF CARE VITAL SIGNS Height 67 in 2016-04-16 Weight 159.0 lbs 2016-04-16 Temperature 98.6 degrees Fahrenheit 2016-04-16 Heart Rate 88 bpm 2016-04-16 Respiratory Rate 20 2016-04-16 BMI 24.90 kg/m2 2016-04-16 Blood pressure systolic 148 mmHg 2016-04-16 Blood pressure diastolic 84 mmHg 2016-04-16 MEDICATIONS Medication Instructions Dosage Frequency Start Date End Date Duration Status Horizant 600 MG Orally twice a day 1 tablet in the evening with food 12h Active Pyridium 100 MG Orally Three times a day 2 tablets 8h Active Zanaflex 4 MG Orally Three times a day 1 tablet as needed 8h Feb, Active Amlodipine Besylate 10 mg Orally Once a day 1 tablet 24h Mar, 30 day(s) Active OxyContin 20 MG Orally every 12 hrs 1 tablet 12h Active Zofran ODT 8 MG sublingually as needed 1 tablet by Oral route every 8 hours PRN nausea or vomiting Apr, Active Sinus & Allergy 12 Hour 120 MG Orally PRN 1 tablet as needed Active Vitamin D3 5000 UNIT Orally Once a day 1 capsule 24h Active Levothyroxine Sodium 75 MCG TAKE 1 TABLET BY MOUTH DAILY Active Cinnamon 500 mg 2 Tablet by Oral route 1 time per day Dec, Active Omeprazole 20 mg take 1 capsule (20 mg) by oral route once daily before a meal Jun, Active Albuterol Sulfate 90 mcg/actuation 2 puffs by Inhalation route every 4-6 hours as needed for 30 days PRN May, Active DuoNeb 0.5 mg-3 mg(2.5 mg base)/3 mL 3 mL by Inhalation route 4 times per day PRN Dec, Active Oxycodone HCl 5 MG Orally every 6 hrs 1 tablet 6h Active Symbicort 160-4.5 mcg/actuation inhale 2 puffs by inhalation route 2 times per day in the morning and evening for 30 Jan, Active Nitrofurantoin 100 MG Orally 2 times a day x 10 days 1 capsule with food Active Cymbalta 60 mg Orally twice a day 1 capsule 12h Active Xarelto 20 mg take 1 tablet (20 mg) by oral route once daily with the evening meal Nov, Active Zofran ODT 8 MG sublingually as needed 1 tablet by Oral route every 8 hours PRN nausea or vomiting Active Cyclobenzaprine HCl 10 mg Orally in am & two tablets at bedtime 1 tablet Active PredniSONE 20 mg Orally Once a day x 5days 2 tablet Active Simvastatin 20 mg 1 tablet by Oral route 1 time per day Nov, Active Eye Allergy Relief 0.025-0.3 % Ophthalmic PRN 2 drop into affected eye as needed Active Lisinopril 20 mg Orally Once a day 1 tablet 24h Dec, Active Timolol 0.5 % Ophthalmic 2 times a day 1 drop into affected eye 12h Active RESULTS No Results PROCEDURES No Known procedures IMMUNIZATIONS No Known Immunizations
--- OUTSIDE RECORDS SUMMARY | 2016-12-15 17:47 | XMS REPORT ---
Author Author JEAN-PAUL GRANADO Organization [facility] Address [address] [place] [address] Care Team Providers Care Automatic Drilling Machine Operator Name Role Phone JEAN-PAUL GRANADO Unavailable PROBLEMS Type Condition ICD9-CM Code [id number]-TB Code Onset Dates Condition Status SNOMED Code Problem Sciatica, unspecified laterality M54.30 Active 92508070 Problem Major depressive disorder, recurrent episode, unspecified severity F33.9 Active 73408479 Problem Anxiety F41.9 Active 38641825 Problem Chronic obstructive pulmonary disease, unspecified COPD type J44.9 Active 84090256 Problem Carpal tunnel syndrome, right upper limb G56.01 Active 49684929 Problem Chronic pancreatitis, unspecified pancreatitis type K86.1 Active 631149329 Problem Generalized abdominal pain R10.84 Active 039768219 Problem Gastroesophageal reflux disease, esophagitis presence not specified K21.9 Active 188714058 Problem Hypothyroidism, unspecified type E03.9 Active 22860522 Problem Vitamin D deficiency E55.9 Active 54059537 Problem Tobacco abuse counseling Z71.6 Active 09191117 Problem Gastroesophageal reflux disease without esophagitis K21.9 Active 022738292 Problem Hyperlipidemia, unspecified hyperlipidemia E78.5 Active 03385408 Problem Proteinuria R80.9 Active 32680678 Problem Venous insufficiency I87.2 Active 69967421 Problem Acute cystitis with hematuria N30.01 Active 94432187 Problem Exacerbation of systemic lupus M32.9 Active 48870045 Problem Pneumonia due to infectious organism, unspecified laterality, unspecified part of lung J18.9 Active 663423013 Problem Nausea R11.0 Active 371545375 Problem Essential hypertension I10 Active 44023108 Problem Obstructive sleep apnea G47.33 Active 28026992 Problem Type 2 diabetes mellitus without complication E11.9 Active 03653953 Problem Chronic pain syndrome G89.4 Active 717070364 Problem Port catheter in place Z95.828 Active 782154856 Problem Presence of IVC filter Z95.828 Active 014252272 Problem History of small bowel obstruction Z87.19 Active 832079572 Problem History of pulmonary embolism Z86.711 Active 547989844 ALLERGIES Substance Reaction Event Type Date Status [...] PLAN OF CARE Activity Details Follow Up prn Reason: VITAL SIGNS Height 67 in 2016-04-01 Weight 159.8 lbs 2016-04-01 Temperature 98.6 degrees Fahrenheit 2016-04-01 Heart Rate 92 bpm 2016-04-01 Respiratory Rate 20 2016-04-01 BMI 25.03 kg/m2 2016-04-01 Blood pressure systolic 140 mmHg 2016-04-01 Blood pressure diastolic 88 mmHg 2016-04-01 MEDICATIONS Medication Instructions Dosage Frequency Start Date End Date Duration Status Oxycodone HCl 5 MG Orally every 6 hrs 1 tablet 6h Active DuoNeb 0.5 mg-3 mg(2.5 mg base)/3 mL 3 mL by Inhalation route 4 times per day PRN Dec, Active Levothyroxine Sodium 75 MCG TAKE 1 TABLET BY MOUTH DAILY Active OxyContin 20 MG Orally every 12 hrs 1 tablet 12h Active Simvastatin 20 mg 1 tablet by Oral route 1 time per day Nov, Active Zofran ODT 8 MG sublingually as needed 1 tablet by Oral route every 8 hours PRN nausea or vomiting Apr, Active Horizant 600 MG Orally twice a day 1 tablet in the evening with food 12h Active Omeprazole 20 mg take 1 capsule (20 mg) by oral route once daily before a meal Jun, Active Zanaflex 4 MG Orally Three times a day 1 tablet as needed 8h Feb, Active Xarelto 20 mg take 1 tablet (20 mg) by oral route once daily with the evening meal Nov, Active Albuterol Sulfate 90 mcg/actuation 2 puffs by Inhalation route every 4-6 hours as needed for 30 days PRN May, Active Eye Allergy Relief 0.025-0.3 % Ophthalmic PRN 2 drop into affected eye as needed Active PredniSONE 20 MG Orally Once a day 2 tablet 24h Mar, Mar, 5 days Active Vitamin D3 5000 UNIT Orally Once a day 1 capsule 24h Active Sinus & Allergy 12 Hour 120 MG Orally PRN 1 tablet as needed Active Cymbalta 60 mg Orally twice a day 1 capsule 12h Active Timolol 0.5 % Ophthalmic 2 times a day 1 drop into affected eye 12h Active Lisinopril 20 mg Orally Once a day 1 tablet 24h Dec, Active RESULTS Name Result Date Reference Range STREP A (IN HOUSE) 2016-04-01 STREP A negative Control + Lot # [id number] Exp date november 02 PROCEDURES Procedure Date Ordered Related Diagnosis Body Site STREP A ASSAY W/OPTIC Apr 01, 2016 [facility] VISIT ESTABLISHED PATIENT Apr 01, 2016 Office Visit, Est Pt., Level 3 Apr 01, 2016 IMMUNIZATIONS No Known Immunizations
--- OUTSIDE RECORDS SUMMARY | 2016-12-15 17:48 | XMS REPORT ---
Author Author ECD VICENTA Organization [facility] Address [address] [place] [address] Care Team Providers Care Catering Sous Chef Name Role Phone ELEAZAR COUGHLINNETTE Unavailable PROBLEMS Type Condition ICD9-CM Code [id number] Code Onset Dates Condition Status SNOMED Code Problem Sciatica, unspecified laterality M54.30 Active 89149703 Problem Major depressive disorder, recurrent episode, unspecified severity F33.9 Active 34664705 Problem Anxiety F41.9 Active 85556648 Problem Chronic obstructive pulmonary disease, unspecified COPD type J44.9 Active 22914667 Problem Carpal tunnel syndrome, right upper limb G56.01 Active 77958353 Problem Chronic pancreatitis, unspecified pancreatitis type K86.1 Active 989198664 Problem Generalized abdominal pain R10.84 Active 695264369 Problem Gastroesophageal reflux disease, esophagitis presence not specified K21.9 Active 387253349 Problem Hypothyroidism, unspecified type E03.9 Active 17081471 Problem Vitamin D deficiency E55.9 Active 94760535 Problem Tobacco abuse counseling Z71.6 Active 91192390 Problem Gastroesophageal reflux disease without esophagitis K21.9 Active 886662646 Problem Hyperlipidemia, unspecified hyperlipidemia E78.5 Active 13440718 Problem Proteinuria R80.9 Active 09132516 Problem Venous insufficiency I87.2 Active 49461379 Problem Acute cystitis with hematuria N30.01 Active 97920413 Problem Exacerbation of systemic lupus M32.9 Active 31110795 Problem Pneumonia due to infectious organism, unspecified laterality, unspecified part of lung J18.9 Active 788006967 Problem Nausea R11.0 Active 443363393 Problem Essential hypertension I10 Active 84407851 Problem Obstructive sleep apnea G47.33 Active 04687156 Problem Type 2 diabetes mellitus without complication E11.9 Active 03880143 Problem Chronic pain syndrome G89.4 Active 170182898 Problem Port catheter in place Z95.828 Active 397733930 Problem Presence of IVC filter Z95.828 Active 044183533 Problem History of small bowel obstruction Z87.19 Active 974831836 Problem History of pulmonary embolism Z86.711 Active 576714180 ALLERGIES Unknown Allergies SOCIAL HISTORY No smoking Hx information available PLAN OF CARE VITAL SIGNS MEDICATIONS Unknown Medications RESULTS No Results PROCEDURES No Known procedures IMMUNIZATIONS No Known Immunizations
--- OUTSIDE RECORDS SUMMARY | 2016-12-15 17:50 | XMS REPORT ---
Author Author [facility]ED VICENTA Organization [facility] Address [address] [place] [address] Care Team Providers Care Web Master Name Role Phone ELEAZAR COUGHLINNETTE Unavailable PROBLEMS Type Condition ICD9-CM Code [id number] Code Onset Dates Condition Status SNOMED Code Problem Sciatica, unspecified laterality M54.30 Active 46972840 Problem Major depressive disorder, recurrent episode, unspecified severity F33.9 Active 27877666 Problem Anxiety F41.9 Active 27883403 Problem Chronic obstructive pulmonary disease, unspecified COPD type J44.9 Active 51094435 Problem Carpal tunnel syndrome, right upper limb G56.01 Active 26471486 Problem Chronic pancreatitis, unspecified pancreatitis type K86.1 Active 520537034 Problem Generalized abdominal pain R10.84 Active 817318693 Problem Gastroesophageal reflux disease, esophagitis presence not specified K21.9 Active 563573669 Problem Hypothyroidism, unspecified type E03.9 Active 31744594 Problem Vitamin D deficiency E55.9 Active 47807906 Problem Tobacco abuse counseling Z71.6 Active 40067940 Problem Gastroesophageal reflux disease without esophagitis K21.9 Active 718364191 Problem Hyperlipidemia, unspecified hyperlipidemia E78.5 Active 68872779 Problem Proteinuria R80.9 Active 17263782 Problem Venous insufficiency I87.2 Active 85719773 Problem Acute cystitis with hematuria N30.01 Active 35555303 Problem Exacerbation of systemic lupus M32.9 Active 03175043 Problem Pneumonia due to infectious organism, unspecified laterality, unspecified part of lung J18.9 Active 428612464 Problem Nausea R11.0 Active 088265297 Problem Essential hypertension I10 Active 10382085 Problem Obstructive sleep apnea G47.33 Active 02083082 Problem Type 2 diabetes mellitus without complication E11.9 Active 01539756 Problem Chronic pain syndrome G89.4 Active 482414575 Problem Port catheter in place Z95.828 Active 570576206 Problem Presence of IVC filter Z95.828 Active 432734074 Problem History of small bowel obstruction Z87.19 Active 401012987 Problem History of pulmonary embolism Z86.711 Active 017334833 ALLERGIES Unknown Allergies SOCIAL HISTORY No smoking Hx information available PLAN OF CARE VITAL SIGNS MEDICATIONS Unknown Medications RESULTS No Results PROCEDURES No Known procedures IMMUNIZATIONS No Known Immunizations
--- NOTE | 2016-12-15 17:59 | ED Abdominal Pain ---
General Chief Complaint: Abdominal/GI Problems Stated Complaint: ABDOMINAL/BACK PAIN Source of Information: Patient Exam Limitations: No Limitations History of Present Illness Time Seen By Provider: 17:58 Initial Comments To ER with suprapubic bilateral lower quadrant abdominal pain that began 1-1/2 days ago. She believes she has a kidney stone. No fevers or chills or bowel changes. Timing/Duration: 1-2 Days Severity/Quality: Moderate Location: Suprapubic Radiation: No Radiation Activities at Onset: None Allergies and Home Medications Allergies Coded Allergies: droperidol (Unverified Allergy, Severe, SOB, 02/22/11) ranitidine HCl (Verified Allergy, Intermediate, SOB, DIAPHORETIC, 02/22/11) Soap (Unverified Allergy, Unknown, RASH, 07/03/13) aspirin (Verified Allergy, Unknown, 07/03/13) codeine (Verified Allergy, Unknown, 07/03/13) ketorolac tromethamine (Verified Allergy, Unknown, 07/03/13) metoclopramide HCl (Unverified Allergy, Unknown, 07/03/13) povidone-iodine (Unverified Allergy, Unknown, RASH, 07/03/13) prochlorperazine edisylate (Unverified Allergy, Unknown, 07/03/13) prochlorperazine maleate (Unverified Allergy, Unknown, 07/03/13) sumatriptan (Verified Allergy, Unknown, 07/03/13) sumatriptan succinate (Verified Allergy, Unknown, 07/03/13) Home Medications Albuterol Sulfate 2.5 Mg/3 Ml Solution, 2.5 MG IH Q4HR PRN, (Reported) NEEDED FOR SHORTNESS OF BREATH Budesonide/Formoterol Fumarate 10.2 Gm Hfa.aer.ad, 2 PUFF IH BID, (Reported) Cholecalciferol 5,000 Unit Tablet, 5,000 UNIT PO 1200, (Reported) Gabapentin 800 Mg Tablet, 800 MG PO TID, (Reported) Levothyroxine Sodium 75 Mcg Tablet, 75 MCG PO DAILY @ 0800, (Reported) Lisinopril 40 Mg Tablet, 40 MG PO DAILY, (Reported) Omeprazole 20 Mg Capsule.dr, 20 MG PO EVERY AFTERNOON, (Reported) Ondansetron 8 Mg Tab.rapdis, 8 MG SL Q8H PRN for NAUSEA/VOMITING, (Reported) Oxycodone HCl 5 Mg Tablet, #120 (Reported) Oxycodone HCl 20 Mg Tab.er.12h, #60 (Reported) Oxycodone Hcl 20 Mg Tab.sr.12h, 20 MG PO BID, (Reported) Potassium Chloride 10 Meq Capsule.sa, 10 MEQ PO DAILY, (Reported) Rivaroxaban 20 Mg Tablet, 20 MG PO DAILY, (Reported) Sennosides/Docusate Sodium 1 Each Tablet, 2 EACH PO BID, #120 Ref 0 Prescribed by: JENNY MARIE on 04/07/16 1641 Simvastatin 20 Mg Tablet, 20 MG PO HS, (Reported) Varenicline Tartrate 1 Each Tab.ds.pk, Unknown Dose PO, (Reported) [Cinnamon] , 2 CAP PO BID, (Reported) [Patanol Opth. Drops] , 2 DROPS OU DAILY PRN, (Reported) two drops to eyes as needed for allergy symptoms Review of Systems Constitutional: see HPI, No chills, No fever EENTM: No Symptoms Reported Respiratory: No Symptoms Reported Cardiovascular: No Symptoms Reported Gastrointestinal: See HPI, Abdominal Pain Genitourinary: No Symptoms Reported Musculoskeletal: no symptoms reported Skin: no symptoms reported Psychiatric/Neurological: No Symptoms Reported Endocrine: No Symptoms Reported Past Sqbftve-Qswfnl-Ublyhe Hx Patient Social History Alcohol Use: Denies Use Recreational Drug Use: No Smoking Status: Former Smoker Type Used: Cigarettes 2nd Hand Smoke Exposure: No Recent Foreign Travel: No Contact w/Someone Who Travel: No Recent Hopitalizations: No Physical Abuse: No Sexual Abuse: No Immunizations Up To Date Tetanus Booster (TDap): Less than 5yrs Date of Pneumonia Vaccine: Jan 16, 2014 Date of Influenza Vaccine: Jan 17, 2016 Seasonal Allergies Seasonal Allergies: No Surgeries History of Surgeries: Yes Surgeries: Abdominal, Appendectomy, Bowel Surgery, Cardiac, Eye Surgery, Gallbladder, Hysterectomy, Oophorectomy, Orthopedic, Vascular Surgery Respiratory History of Respiratory Disorde: Yes (O2 AND CPAP) Respiratory Disorders: Asthma, Chronic Bronchitis, Pulmonary Embolism, Sleep Apnea, COPD Cardiovascular History of Cardiac Disorders: Yes (MULTIPLE DVT'S IN ARMS AND LEGS, 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 Genitourinary Genitourinary Disorders: Kidney Stones, Renal Failure Gastrointestinal History of Gastrointestinal Di: Yes Gastrointestinal Disorders: Gastroesophageal Reflux, Obstructive Bowel, Pancreatitis, Gall Bladder Disease Musculoskeletal History of Musculoskeletal Dis: Yes (CHRONIC GENERALIZED PAIN--NARCOTIC DEPENDENT) Musculoskeletal Disorders: Arthritis, Chronic Back Pain Endocrine History of Endocrine Disorders: Yes Endocrine Disorders: Diabetes, Insulin dep, Hypothyroidsim, Lupus HEENT Hearing Impairment: Denies Cancer History of Cancer: No Psychosocial History of Psychiatric Problem: Yes Behavioral Health Disorders: Anxiety, Depression Suicide Risk Score: 0 Integumentary History of Skin or Integumenta: No Blood Transfusions History of Blood Disorders: Yes (DVT'S/P.E.'S ; PAD) Adverse Reaction to a Blood Tr: No Family Medical History Significant Family History: Heart Disease, Cancer, GI Disease Family Medial History: Asthma 19 FATHER G8 SISTER Diabetes mellitus G8 SISTER Hypercholesterolemia G8 SISTER Hypertension G8 SISTER Kidney disease 19 MOTHER Myocardial infarction 19 FATHER No Family History of: AIDS Abdominal aortic aneurysm Forgan's disease Alcoholism Alzheimer's disease Aphasia Arthritis Cancer of mouth Cardiovascular disease Cataracts Colon cancer Completed stroke Congenital disease Congenital heart disease Coronary thrombosis Cystic fibrosis Deafness or hearing loss Dementia Drug abuse Dysphasia Fibrocystic disease of breast Gastroenteritis Glaucoma Headache disorder Infertility Neoplasm Not obtainable due to adoption Osteoporosis Parkinson's disease Prostate cancer Psychosocial problem Respiratory disorder Seizure disorder Severe allergy Thyroid disease Tuberculosis Visual disorder Physical Exam Vital Signs VS - Last 72 Hours, by Label 12/15/16 17:53 Temp 98.1 Pulse 102 Resp 20 B/P (MAP) 114/75 Pulse Ox 97 O2 Delivery Room Air Capillary Refill : General Appearance: WD/WN, no apparent distress HEENT: PERRL/EOMI, normal ENT inspection Neck: non-tender, full range of motion Respiratory: no respiratory distress, no accessory muscle use Cardiovascular: regular rate, rhythm, no murmur Gastrointestinal: normal bowel sounds, soft, tenderness Extremities: normal range of motion, non-tender Neurologic/Psychiatric: alert, normal mood/affect, oriented x 3 Skin: normal color, warm/dry Exam Comments Patient is hardly able to keep her eyes open during conversation with me. She appears very sedate. Speech is slow delayed. Images 1 - Progress/Results/Core Measures Results/Orders Lab Results Laboratory Tests Test 12/15/16 18:02 Range/Units My Orders Orders - PATRICE PAREDES APRN Cbc With Automated Diff (12/15/16 17:53) Comprehensive Metabolic Panel (12/15/16 17:53) Ua Culture If Indicated (12/15/16 17:53) Lipase (12/15/16 17:53) Ct Abd/Pelvis Wo(Kidney Stone) (12/15/16 17:59) Vital Signs/I&O Vital Sign - Last 12Hours 12/15/16 17:53 Temp 98.1 Pulse 102 Resp 20 B/P (MAP) 114/75 Pulse Ox 97 O2 Delivery Room Air Departure Communication (Admissions) Progress Notes 1824-patient requests her port accessed and she be given IV pain medication. However she falls asleep during her conversation with me. I advised we should wait until we find a diagnosis until we give any potentially sedating medications. She states "you just assume I'm here for drugs". However, this was never implied or stated the patient. I did offer to access her port, draw labs, check urinalysis and a CT scan if she was having suprapubic abdominal pain. She states "no, I'll just go home since you've already pre-judged me!" Impression Impression: Primary Impression: abdominal pain Disposition: AGAINST MEDICAL ADVICE Condition: Against Medical Advice Departure-Patient Inst. Referrals: FADUMO HICKEY DO (PCP) Primary Care Physician VICENTA COUGHLIN (Family) Primary Care Physician PATRICE PAREDES APRN Dec 15, 2016 17:59
[2016-12-15 18:20] LABS: BILIRUBIN,URINE NEGATIVE (NEGATIVE); KETONES,URINE NEGATIVE (NEGATIVE); LEUKOCYTE ESTERASE ,URINE NEGATIVE (NEGATIVE); NITRITE,URINE NEGATIVE (NEGATIVE); PH,URINE 6 (5-9); PROTEIN,URINE NEGATIVE (NEGATIVE); UROBILINOGEN,URINE NORMAL (NORMAL)
[2016-12-15 18:27] LABS: WBC,URINE RARE /HPF
[2016-12-15 18:28] VITALS: BP 114/75
== END 2016-12-15 18:28 | disposition left against medical advice (07) ==
LOC: EDUNIT# 17:38 → ER 17:39
DX: R10.31 Right lower quadrant pain (principal); R10.32 Left lower quadrant pain; E78.00 Pure hypercholesterolemia, unspecified; I10 Essential (primary) hypertension; J44.9 Chronic obstructive pulmonary disease, unspecified; K21.9 Gastro-esophageal reflux disease without esophagitis; E11.40 Type 2 diabetes mellitus with diabetic neuropathy, unspecified; E03.9 Hypothyroidism, unspecified; F41.9 Anxiety disorder, unspecified; F32.9 Major depressive disorder, single episode, unspecified; G47.30 Sleep apnea, unspecified; Z87.19 Personal history of other diseases of the digestive system; Z90.49 Acquired absence of other specified parts of digestive tract; Z82.49 Family history of ischemic heart disease and other diseases of the circulatory system; Z87.442 Personal history of urinary calculi; Z86.718 Personal history of other venous thrombosis and embolism; Z90.710 Acquired absence of both cervix and uterus; Z79.01 Long term (current) use of anticoagulants; Z87.891 Personal history of nicotine dependence
CPT/HCPCS: 81000; 99282

== ENCOUNTER → 2017-01-10 | Outpatient (CLI) | payer MEDICARE, MEDICAID ==
--- NOTE | 2017-01-10 11:59 | Diagnostic Imaging Report ---
EXAMINATION: PA and lateral views of the chest. INDICATION: Shortness of breath. FINDINGS: There is pulmonary hyperinflation. Right pleural thickening is seen similar to 04/05/2016. The heart size is at the upper limits of normal. No effusion or pneumothorax. The mediastinum and jose g appear unremarkable. Surgical clips in the right side of the neck are seen. There is also an IVC filter and a central line femoral approach with the tip at the right atrium level. IMPRESSION: COPD. No acute process. Dictated by: Dictated on workstation # [id number]
== END ==
LOC: RAD 10:39
PROVIDERS: ATTEND Nurse Practitioner Family
DX: J44.9 Chronic obstructive pulmonary disease, unspecified (principal); J96.20 Acute and chronic respiratory failure, unspecified whether with hypoxia or hypercapnia; Z72.0 Tobacco use
CPT/HCPCS: 71020

== ENCOUNTER 2017-03-31 14:48 | Outpatient (RCR) | payer MEDICARE, MEDICAID ==
[~2017-03-31 14:48] MED LIST changes: +OXYC-529; -OXYC5TAB71
[2017-03-31 15:19] LABS: BASOPHILS % (AUTO) 0 % (0-10); EOSINOPHILS # (AUTO) 0.1 10^3/uL (0.0-0.3); EOSINOPHILS % (AUTO) 1 % (0-10); HEMATOCRIT 44 % (35-52); HEMOGLOBIN 15.5 G/DL (11.5-16.0); LYMPHOCYTES # (AUTO) 2.9 X 10^3 (1.0-4.0); LYMPHOCYTES % (AUTO) 39 % (12-44); MEAN CORPUSCULAR HEMOGLOBIN 35 PG (25-34); MEAN CORPUSCULAR HGB CONC 35 G/DL (32-36); MEAN CORPUSCULAR VOLUME 98 FL (80-99); MEAN PLATELET VOLUME 10.8 FL (7.4-10.4); MONOCYTES # (AUTO) 0.4 X 10^3 (0.0-1.0); MONOCYTES % (AUTO) 5 % (0-12); NEUTROPHILS % (AUTO) 54 % (42-75); PLATELET COUNT 143 10^3/uL (130-400); RED BLOOD COUNT 4.49 10^6/uL (4.35-5.85); RED CELL DISTRIBUTION WIDTH 12.4 % (10.0-14.5); WHITE BLOOD COUNT 7.4 10^3/uL (4.3-11.0)
[2017-03-31 15:34] LABS: ALANINE AMINOTRANSFERASE 14 U/L (0-55); ALBUMIN 4.4 GM/DL (3.2-4.5); ALKALINE PHOSPHATASE 92 U/L (40-136); BILIRUBIN,TOTAL 0.7 MG/DL (0.1-1.0); BUN/CREATININE RATIO 15; CALCIUM 10.1 MG/DL (8.5-10.1); CARBON DIOXIDE 28 MMOL/L (21-32); CHLORIDE 103 MMOL/L (98-107); CREATININE SERUM 0.79 MG/DL (0.60-1.30); GFR ESTIMATED > 60; GLUCOSE 121 MG/DL (70-105); POTASSIUM 3.8 MMOL/L (3.6-5.0); SODIUM 138 MMOL/L (135-145); TOTAL PROTEIN 7.7 GM/DL (6.4-8.2)
== END 2017-06-29 | disposition home or self-care (01) ==
LOC: ONC 14:48
PROVIDERS: ATTEND Internal Medicine Hematology & Oncology
DX: D68.62 Lupus anticoagulant syndrome (principal); D50.0 Iron deficiency anemia secondary to blood loss (chronic); E11.9 Type 2 diabetes mellitus without complications; E03.9 Hypothyroidism, unspecified; I10 Essential (primary) hypertension; J44.9 Chronic obstructive pulmonary disease, unspecified; F32.9 Major depressive disorder, single episode, unspecified; F17.200 Nicotine dependence, unspecified, uncomplicated; G47.33 Obstructive sleep apnea (adult) (pediatric); Z86.718 Personal history of other venous thrombosis and embolism; Z86.711 Personal history of pulmonary embolism; Z86.2 Personal history of diseases of the blood and blood-forming organs and certain disorders involving the immune mechanism; Z79.01 Long term (current) use of anticoagulants
CPT/HCPCS: 36415; 80053; 82728; 85025; 99213

== ENCOUNTER 2017-06-07 19:15 | Emergency (ER) | payer MEDICARE, MEDICAID ==
[~2017-06-07] VITALS: Ht 170.2 cm; Wt 68.0 kg
--- OUTSIDE RECORDS SUMMARY | 2017-06-07 19:22 | XMS REPORT ---
Author Author [facility] [employer] [facility] Address Unknown Phone Unavailable Care Team Providers Care Automatic Gluing Machine Operator Name Role Phone Non-Staff, Physician PCP Unavailable Encounter [id number] Date(s): 11/07/14 - 11/07/14 [facility] [address] [address] Discharge Diagnosis: Gastritis Discharge Diagnosis: Abdominal pain Discharge Disposition: Home Attending Physician: Mariano Almonte MD Admitting Physician: Mariano Almonte MD Referring Physician: Non-Staff, Physician Vital Signs No data available for this section Problem List No data available for this section Allergies, Adverse Reactions, Alerts Substance Reaction Severity Status aspirin1 Active codeine2 Active Compazine3 Active Imitrex4 Active Inapsine5 Active Reglan6 Active Toradol7 Active 1difficulty breathing 2airway swelling 3difficulty breathing 4swelling at injection site 5breathing difficulty 6difficulty breathing 7difficulty breathing Medications No Known Medications Results No data available for this section Immunizations No data available for this section Procedures Procedure Date Related Diagnosis Body Site Esophagogastroduodenoscopy, flexible, 11/07/14 transoral; diagnostic, including collection of specimen(s) by brushing or washing, when performed (separate procedure) appendectomy bowel obstruction surgeries-X21 cholecystectomy yin blood filter hysterectomy left eye surgeries-x2 left knee surgeries-x2 mary cath placements power port left groin Social History No data available for this section Assessment and Plan No data available for this section
--- OUTSIDE RECORDS SUMMARY | 2017-06-07 19:22 | XMS REPORT | Summary of Care ---
Author Author [facility] Organization [facility] Address Unknown Phone Unavailable Care Team Providers Care Buck Swamper Name Role Phone None, Stated PCP Unavailable Encounter PFNa [id number] [id number] Date(s): 05/27/17 [facility] [address] [address] [facility] [phone] Discharge Diagnosis: Encounter to establish care Discharge Diagnosis: Chronic pancreatitis Discharge Diagnosis: Bowel obstruction Discharge Diagnosis: Cervical cancer Discharge Diagnosis: Asthma with COPD Discharge Diagnosis: Chronic abdominal pain Discharge Diagnosis: Needs smoking cessation education Attending Physician: Linda Talavera DO Vital Signs No data available for this section Problem List No data available for this section Allergies, Adverse Reactions, Alerts Substance Reaction Severity Status Anaspaz Active codeine Compazine Active Compazine Active Imitrex Active low-dose aspirin Active Reglan Active Toradol Active Medications Cymbalta 60 mg oral delayed release capsule 2 Cap, Q24H, PO, 60 Cap, 1 Number of Refills, 1, Route to Pharmacy Electronically, [facility], [id number] Start Date: 05/27/17 Stop Date: 07/26/17 Status: Ordered Horizant 600 mg oral tablet, extended release 1 Tab, BID, PO, 0 Number of Refills Start Date: 05/27/17 Status: Ordered levothyroxine 75 mcg (0.075 mg) oral tablet 1 Tab, Q24H, PO, 0 Number of Refills Start Date: 05/27/17 Status: Ordered lisinopril 20 mg oral tablet 1 Tab, daily, PO, 30 Tab, 0 Number of Refills, TAB Start Date: 05/27/17 Status: Ordered MS Contin PO, 15mg IR, 0 Number of Refills, 0 Start Date: 05/27/17 Status: Ordered MS Contin 30 mg/12 hr oral tablet, extended release 1 Tab, Q12H, PO, 0 Number of Refills, 0, ERT Start Date: 05/27/17 Status: Ordered tizanidine 4 mg oral tablet 1 Tab, Q8H, PO, 180 Tab, 0 Number of Refills, TAB Start Date: 05/27/17 Status: Ordered Ventolin HFA 2 Puff(s), q4-6h, INH, 1 INH, 0 Number of Refills Start Date: 05/27/17 Status: Ordered Wellbutrin XL 150 mg/24 hours oral tablet, extended release 1 Tab, Q24H, PO, 30 Tab, 1 Number of Refills, 1, Route to Pharmacy Electronically, [facility], [id number]_[id number], ERT Start Date: 05/27/17 Status: Ordered Xarelto 20 mg oral tablet 1 Tab, QPM, PO, 0 Number of Refills Start Date: 05/27/17 Status: Ordered Zofran 8 mg oral tablet 1 Tab, TID, PO, 0 Number of Refills Start Date: 05/27/17 Status: Ordered Zofran ODT 8 mg oral tablet, disintegrating 1 Tab, TID, PO, 90 Tab, 1 Number of Refills, 1, Route to Pharmacy Electronically , [facility], NCPDP_[id number] Start Date: 05/27/17 Status: Ordered Results No data available for this section Immunizations Given and Recorded Vaccine Date Status Refusal Reason influenza virus vaccine 01/23/17 Given Procedures No data available for this section Social History No data available for this section Assessment and Plan No data available for this section
--- OUTSIDE RECORDS SUMMARY | 2017-06-07 19:22 | XMS REPORT | Continuity of Care Document ---
Author Author [employer] Organization [facility] Address Unknown Phone Unavailable Care Team Providers Care Police Pilot Name Role Phone [employer] Unavailable Unavailable Problems Problem Status Onset Date Classification Date Reported Comments Source Persons encountering health services in other specified circumstances 05/27/2017 Diagnosis 05/28/2017 [facility] Other chronic pancreatitis 05/27/2017 Diagnosis 2017 [facility] Unspecified intestinal obstruction, unspecified as to partial versus complete obstruction 05/27/2017 Diagnosis 05/28/2017 [facility] Malignant neoplasm of cervix uteri, unspecified 05/27/2017 Diagnosis 05/28/2017 [facility] Chronic obstructive pulmonary disease, unspecified 05/27/2017 Diagnosis 05/28/2017 [facility] Unspecified abdominal pain 05/27/2017 Diagnosis 2017 [facility] Nicotine dependence, unspecified, uncomplicated 05/27/2017 Diagnosis 05/28/2017 [facility] Acute gastritis, without mention of hemorrhage 11/07/2014 Diagnosis 11/11/2014 [facility] Abdominal pain, unspecified site 11/07/2014 Diagnosis [facility] Medications Medication Details Route Status Patient Instructions Ordering Provider Order Date Source tizanidine 4 mg oral tablet 1 Tab, Q8H, PO, 180 Tab, 0 Number of Refills, TAB Active [facility] MS Contin PO, 15mg IR, 0 Number of Refills, 0 Active [facility] Morphine Sulfate 30 MG Extended Release Tablet [MS Contin] 1 Tab, Q12H, PO, 0 Number of Refills, 0, ERT Active [facility] Ondansetron 8 MG Oral Tablet [Zofran] 1 Tab, TID, PO, 0 Number of Refills Active [facility] levothyroxine 75 mcg (0.075 mg) oral tablet 1 Tab, Q24H, PO, 0 Number of Refills Active [facility] lisinopril 20 mg oral tablet 1 Tab, daily, PO, 30 Tab, 0 Number of Refills, TAB Active [facility] gabapentin enacarbil 600 MG Extended Release Tablet [Horizant] 1 Tab, BID, PO, 0 Number of Refills Active [facility] Ondansetron 8 MG Disintegrating Tablet [Zofran] 1 Tab, TID, PO, 90 Tab, 1 Number of Refills, 1, Route to Pharmacy Electronically, [id number] Ventolin HFA 2 Puff(s), q4-6h, INH, 1 INH, 0 Number of Refills Active [facility] 24 HR Bupropion Hydrochloride 150 MG Extended Release Tablet [Wellbutrin] 1 Tab, Q24H, PO, 30 Tab, 1 Number of Refills, 1, Route to Pharmacy Electronically, [facility], [facility]_[id number], ERT Active [facility] duloxetine 60 MG Enteric Coated Capsule [Cymbalta] 2 Cap, Q24H, PO, 60 Cap, 1 Number of Refills, 1, Route to Pharmacy Electronically, [facility], HIP[facility]_[id number] Active [facility] rivaroxaban 20 MG Oral Tablet [Xarelto] 1 Tab, QPM, PO, 0 Number of Refills Active [facility] No Known Medications No known medications Active [facility]. Allergies, Adverse Reactions, Alerts Substance Category Reaction Severity Reaction type Status Date Reported Comments Source Hyoscyamine Assertion Drug allergy [facility] Codeine Assertion Compazine Drug allergy [facility] Prochlorperazine Assertion Drug allergy [facility] Sumatriptan Assertion Drug allergy [facility] Aspirin Assertion Drug allergy [facility] Metoclopramide Assertion Drug allergy [facility] Ketorolac Assertion Drug allergy [facility] Droperidol Assertion Drug allergy breathing difficulty [facility]. Immunizations Immunization Date Given Site Status Last Updated Comments Source influenza virus vaccine 01/23/2017 Immunization, History influenza virus vaccine [facility] Results Order Name Results Value Reference Range Date Interpretation Comments Source Office/Clinic Notes Office/Clinic Notes [facility] [address] [phone] PATIENT: SOPHIA SOSA MR #: [id number] : 1965 DATE SEEN: 05/27/2017 Chief Complaint Sophia is here to establish care. History of Present Illness Patient is 51-year-old female here to establish care. Patient has a past medical history of chronic pancreatitis, chronic bowel obstruction, blood clots , lupus, and COPD. Patient states that she has been dealing with a few specialists. She sees Dr. Almonte for gastroenterology. Patient sees Dr. Hernandez for hematology/oncology, and Dr. Blunt for severe COPD. Patient is currently still smoking. She is trying to stop smoking. She does sleep with a Ventimask because of her COPD with asthma. Patient states that she has tried Chantix in the past, but it has not helped. She is willing to try something else. Patient does take pain medication for her conditions, but it was filled by her primary care doctor, who she does not want to see anymore. Patient also states that she would like to transfer over to get her specialists to be done all through [facility], if possible. Review of Systems Constitutional: Denies fever, chills, or unexpected weight changes. Cardiovascular: Denies chest pains or palpitations. Pulmonary: Denies shortness of breath or cough. Gastrointestinal: Denies nausea, vomiting, diarrhea, or constipation. Positive abdominal pain. Genitourinary: Denies dysuria or frequency. Musculoskeletal: Positive back pain. Allergies codeine Toradol Imitrex Anaspaz Compazine Reglan low-dose aspirin Current Medications Horizant 600 mg oral tablet, extended release (gabapentin), 600 mg, Oral, 2 times a day levothyroxine 75 mcg (0.075 mg) oral tablet (levothyroxine), 75 mcg, Oral, Every 24 hours lisinopril 20 mg oral tablet (lisinopril), 20 mg, Oral, Daily MS Contin (morphine), , Oral MS Contin 30 mg/12 hr oral tablet, extended release (morphine), 30 mg, Oral, Every 12 hours tizanidine 4 mg oral tablet (tizanidine), 4 mg, Oral, Every 8 hours Ventolin HFA (albuterol), 2 Puff(s), Inhalation, every 4 to 6 hours Xarelto 20 mg oral tablet (rivaroxaban), 20 mg, Oral, Every evening Zofran 8 mg oral tablet (ondansetron), 8 mg, Oral, 3 times a day Problems and Past Medical History No problems found. Family History Alcoholism.. Father Breast cancer.. Aunt/Uncle DM (diabetes mellitus) type I controlled with renal manifestation Mother Heart attack.. Father Leukemia.. Mother Procedure History 21 bowel obstruction hysterectomy Cholecystectomy; left knee x 2 cataract surgery Appendectomy; Social History Tobacco/Nicotine Usage: Current Smoking Status: Smokes daily Tobacco/Nicotine Type: Chewing tobacco, Cigarettes Packs Per Day: 1 Number of Years-Tob Use: 30 Total Pack Years: 30 Recreational Drug Use: Denies Education Attained: College Physical Examination TEMP BP Pulse RR MAP O2 Sat 36.7 134/74 84 16 94 99 Blood Pressure Location: Left arm Oxygen Therapy: Room air Weight Height BMI BSA 68.5 kg (151.02 lbs) General: Acute, alert, oriented. Positive crying. Positive sad mood. Psychiatric: Positive depression. Positive anxiety. Negative homicidal or suicidal ideation. Negative psychotic episodes. Positive normal rate of thinking. Positive normal judgement. Impression 1. Cervical cancer (C53.9). 2. Encounter to establish care (Z76.89). 3. Chronic abdominal pain (R10.9). 4. Needs smoking cessation education (F17.200). 5. Asthma with COPD (J44.9). 6. Bowel obstruction (K56.609). 7. Chronic pancreatitis (K86.1). Plan Medication changes this visit: New Cymbalta 60 mg oral delayed release capsule, 120 mg, Oral, Q24H, Quantity: 60, Refills: 1 Wellbutrin XL 150 mg/24 hours oral tablet, extended release, 150 mg, Oral, Q24H , Quantity: 30, Refills: 1 Zofran ODT 8 mg oral tablet, disintegrating, 8 mg, Oral, TID, Quantity: 90, Refills: 1 Orders this visit: Referral - Request, Gastroenterology, Within 2 weeks, chronic pancreatitis bowel obstruction Referral - Request, Hematology, Within 2 weeks, blood clots lupus cervical cancer Referral - Request, Pulmonary, Within 2 weeks, copd with asthma with venti mask Referral - Request, Pain Clinic, Within 2 weeks, chronic abdominal , back and leg pain For her bowels, we will set her up with GI. For her chronic back pain and leg pain, we will set her up with Pain Management. For her COPD, we will set her up with Pulmonary. For her blood clots and lupus, we will set her up with Hematology. As for her smoking, we will trial her on Wellbutrin, since patient has failed Chantix, to help with her smoking cessation since she has COPD. Patient advised that it makes the COPD worse. Also, we discussed smoking cessation for about 3- 5 minutes. We will also have Wellbutrin to help her with her depression and anxiety. Patient did lose her a year and a half ago to a triple A, and since then she has been very depressed and has not spoken to anybody and has not taken anything for it. Patient encouraged to speak to a therapist or see a psychiatrist. Patient declined for it right now. She says when she gets settled from moving, she will consider it. Reviewed ambulatory nursing intake notes from today. Patient is agreeable to plan. TR: [id number] ALICE#: [id number] 05/27/2017 [Electronically Signed on 05.31.2017 01:48 PM] Linda Talavera, [facility] Vital Signs Encounters Location Location Details Encounter Type Encounter Number Reason For Visit Attending Provider ADM Date DC Date Status Source [facility] [id number] Outpatient [id number] Mariano Amlonte 11/07/2014 Active [facility] GI Lab [id number] Mariano Almonte 11/07/2014 11/08/2014 [facility] [address] [facility] [id number] [facility]2017 Active [facility] [id number] [facility] Procedures Procedure Code Date Perfomer Comments Source Upper gastrointestinal endoscopy including esophagus, stomach, and either the duodenum and/or jejunum as appropriate; diagnostic, with or without collection of specimen(s) by brushing or washing (separate procedure) 25052 11/07/2014 [facility] appendectomy [facility] bowel obstruction surgeries-X21 [facility] cholecystectomy [facility] yin blood filter [facility] hysterectomy [facility] left eye surgeries-x2 [facility] left knee surgeries-x2 [facility] mary cath placements [facility] power port left groin [facility] Plan of Care Social History Assessment and Plan Family History Advance Directives Functional Status
--- OUTSIDE RECORDS SUMMARY | 2017-06-07 19:22 | XMS REPORT | Clinical Summary ---
Author Author [facility] Organization [facility] Address Unknown Phone Unavailable Care Team Providers Care Community Relations Specialist Name Role Phone Shelbi Aleman RN Unavailable Unavailable No Pcp, Na PCP Unavailable Mohini Malhotra MD Unavailable Jonathan Pickett RN Unavailable Unavailable Source Comments Some departments are not documenting in the electronic medical record. If you do not see the information that you expected, contact Release of Information in the Health Information Management department at [phone] for further assistance in locating additional records.[facility] Allergies Active Allergy Reactions Severity Noted [...] 2004 COLORECTAL CANCER 2014 SCREENING INFLUENZA VACCINE 11/16/2016 Results Not on filefrom Last 3 Months
--- OUTSIDE RECORDS SUMMARY | 2017-06-07 19:23 | XMS REPORT ---
Author Author [employer] Organization [facility] Address [address] [place] [address] Care Team Providers Care Computer Drafter Name Role Phone ELEAZAR COUGHLINNETTE Unavailable PROBLEMS Type Condition ICD9-CM Code [id number] Code Onset Dates Condition Status SNOMED Code Problem Chronic pain syndrome G89.4 Active 015070157 Problem Carpal tunnel syndrome, right upper limb G56.01 Active 38952779 Problem Generalized abdominal pain R10.84 Active 347129816 Problem Presence of IVC filter Z95.828 Active 945999696 Problem Proteinuria R80.9 Active 58315200 Problem Chronic pancreatitis, unspecified pancreatitis type K86.1 Active 645671288 Problem Anxiety F41.9 Active 17925192 Problem Gastroesophageal reflux disease, esophagitis presence not specified K21.9 Active 745003723 Problem Hypothyroidism, unspecified type E03.9 Active 67892592 Problem Vitamin D deficiency E55.9 Active 43854479 Problem Tobacco abuse counseling Z71.6 Active 53184689 Problem Gastroesophageal reflux disease without esophagitis K21.9 Active 955878209 Problem Type 2 diabetes mellitus without complication E11.9 Active 01195823 Problem Hyperlipidemia, unspecified hyperlipidemia E78.5 Active 67056531 Problem Essential hypertension I10 Active 73782798 Problem Acute cystitis with hematuria N30.01 Active 38842024 Problem Exacerbation of systemic lupus M32.9 Active 20102771 Problem Nausea R11.0 Active 557767664 Problem Pneumonia due to infectious organism, unspecified laterality, unspecified part of lung J18.9 Active 556304836 Problem Venous insufficiency I87.2 Active 17488287 Problem Chronic obstructive pulmonary disease, unspecified COPD type J44.9 Active 55554004 Problem Sciatica, unspecified laterality M54.30 Active 19219639 Problem Major depressive disorder, recurrent episode, unspecified severity F33.9 Active 61477379 Problem History of small bowel obstruction Z87.19 Active 234092041 Problem Port catheter in place Z95.828 Active 413424502 Problem History of pulmonary embolism Z86.711 Active 976765634 Problem Obstructive sleep apnea G47.33 Active 15280093 ALLERGIES No Information SOCIAL HISTORY Never Assessed PLAN OF CARE VITAL SIGNS MEDICATIONS Medication Instructions Dosage Frequency Start Date End Date Duration Status Morphine Sulfate ER 30 MG Orally every 12 hrs 1 tablet 12h Jun, 28 days Active Morphine Sulfate 15 MG Orally 3 times a day 1 tablet as needed 8h Jun, Jul, 28 days Active RESULTS No Results PROCEDURES No Known procedures IMMUNIZATIONS No Known Immunizations MEDICAL (GENERAL) HISTORY Type Description Date Medical History Essential hypertension, benign Medical History hypertension Medical History respiratory disorder pt currently on 3L 0f O2 PRN during day . at night is on Bipap at 10L Medical History asthma Medical History chronic obstructive pulmonary disease Medical History gastrointestinal disorder - chronic nausea Medical History post cholecystectomy Medical History hyperlipidemia Medical History thyroid disorders Medical History DVT in both legs and upper extremities Medical History PE Medical History Bowel obstruction recurrent- has had 21 surgeries Surgical History small bowel resection- 21 bowel surgeries Surgical History appendectomy Surgical History hysterectomy Surgical History cholecystectomy Surgical History Left knee x 2 Surgical History Tumor removed from right shoulder- fatty Surgical History Left eye retinal detachment repair Surgical History Left eye laser treatment for glaucoma
--- OUTSIDE RECORDS SUMMARY | 2017-06-07 19:24 | XMS REPORT ---
Author Author [employer] Organization [facility] Address [address] [place] [address] Care Team Providers Care Damage Appraiser Name Role Phone ELEAZAR COUGHLINNETTE Unavailable PROBLEMS Type Condition ICD9-CM Code LIC74-BI Code Onset Dates Condition Status SNOMED Code Problem Chronic pain syndrome G89.4 Active 885006685 Problem Carpal tunnel syndrome, right upper limb G56.01 Active 58293093 Problem Generalized abdominal pain R10.84 Active 980697010 Problem Presence of IVC filter Z95.828 Active 606977345 Problem Proteinuria R80.9 Active 05298190 Problem Chronic pancreatitis, unspecified pancreatitis type K86.1 Active 776067481 Problem Anxiety F41.9 Active 63378247 Problem Gastroesophageal reflux disease, esophagitis presence not specified K21.9 Active 430402624 Problem Hypothyroidism, unspecified type E03.9 Active 27420943 Problem Vitamin D deficiency E55.9 Active 00352672 Problem Tobacco abuse counseling Z71.6 Active 62989991 Problem Gastroesophageal reflux disease without esophagitis K21.9 Active 419391638 Problem Type 2 diabetes mellitus without complication E11.9 Active 13044851 Problem Hyperlipidemia, unspecified hyperlipidemia E78.5 Active 98257136 Problem Essential hypertension I10 Active 62546502 Problem Acute cystitis with hematuria N30.01 Active 88662166 Problem Exacerbation of systemic lupus M32.9 Active 93918365 Problem Nausea R11.0 Active 136161349 Problem Pneumonia due to infectious organism, unspecified laterality, unspecified part of lung J18.9 Active 058433508 Problem Venous insufficiency I87.2 Active 18850296 Problem Chronic obstructive pulmonary disease, unspecified COPD type J44.9 Active 57152896 Problem Sciatica, unspecified laterality M54.30 Active 36140507 Problem Major depressive disorder, recurrent episode, unspecified severity F33.9 Active 57138465 Problem History of small bowel obstruction Z87.19 Active 452094667 Problem Port catheter in place Z95.828 Active 792144663 Problem History of pulmonary embolism Z86.711 Active 553931502 Problem Obstructive sleep apnea G47.33 Active 88627856 ALLERGIES Substance Reaction Event Type Date Status Ketorolac Trometh & Lidocaine shortness of breath Drug Allergy May, Active Compazine anaphylaxis Drug Allergy May, Active Reglan shortness of breath Drug Allergy May, Active Imitrex shortness of breath Drug Allergy May, Active Droperidol shortness of breath Drug Allergy May, Active Codeine-Guaifenesin shortness of breath Drug Allergy May, Active Ativan sedation Drug Allergy May, Active Aspirin shortness of breath Drug Allergy May, Active SOCIAL HISTORY Never Assessed PLAN OF CARE Activity Details Follow Up 3 Months Reason: VITAL SIGNS Height 67 in 2016-05-28 Weight 156.9 lbs 2016-05-28 Temperature 97.3 degrees Fahrenheit 2016-05-28 Heart Rate 120 bpm 2016-05-28 Respiratory Rate 24 2016-05-28 BMI 24.57 kg/m2 2016-05-28 Blood pressure systolic 130 mmHg 2016-05-28 Blood pressure diastolic 88 mmHg 2016-05-28 MEDICATIONS Medication Instructions Dosage Frequency Start Date End Date Duration Status Xarelto 20 mg take 1 tablet (20 mg) by oral route once daily with the evening meal Nov, Active Eye Allergy Relief 0.025-0.3 % Ophthalmic PRN 2 drop into affected eye as needed Active Omeprazole 20 mg take 1 capsule (20 mg) by oral route once daily before a meal Jun, Active Zofran 4 MG Orally 4 times a day 1 tablets 6h Apr, 30 day(s) Active Vitamin D3 5000 UNIT Orally Once a day 1 capsule 24h Active Levothyroxine Sodium 75 MCG TAKE 1 TABLET BY MOUTH DAILY Active Mucinex 600 MG Orally every 12 hrs 1 tablet as needed 12h May, Active Amlodipine Besylate 10 mg Orally Once a day 1 tablet 24h Mar, 30 day(s) Active Lisinopril 20 mg Orally Once a day 1 tablet 24h Dec, Active Morphine Sulfate 15 MG Orally 3 times a day 1 tablet as needed 8h May, Active Albuterol Sulfate 90 mcg/actuation 2 puffs by Inhalation route every 4-6 hours as needed for 30 days PRN May, Active Morphine Sulfate ER 30 MG Orally every 12 hrs 1 tablet 12h 10 May, 2016 Active Timolol 0.5 % Ophthalmic 2 times a day 1 drop into affected eye 12h Active Cymbalta 60 mg Orally twice a day 1 capsule 12h Active Zofran ODT 8 MG sublingually 4 times a day 1 tablet by Oral route every 8 hours PRN nausea or vomiting 6h Apr, Active Simvastatin 20 mg 1 tablet by Oral route 1 time per day Nov, Active DuoNeb 0.5 mg-3 mg(2.5 mg base)/3 mL 3 mL by Inhalation route 4 times per day PRN Dec, Active Sinus & Allergy 12 Hour 120 MG Orally PRN 1 tablet as needed Active Zanaflex 4 MG Orally Three times a day 1 tablet as needed 8h Feb, Active Horizant 600 MG Orally twice a day 1 tablet in the evening with food 12h Active RESULTS Name Result Date Reference Range AMERITOX 2016-05-28 PROCEDURES Procedure Date Ordered Result Body Site [facility] VISIT ESTABLISHED PATIENT May 28, 2016 No Charge May 28, 2016 IMMUNIZATIONS No Known Immunizations MEDICAL (GENERAL) HISTORY [...]
--- OUTSIDE RECORDS SUMMARY | 2017-06-07 19:24 | XMS REPORT ---
Author Author CED VICENTA Organization [facility] Address [address] [place] [address] Care Team Providers Care Stamps Or Coins Salesperson Name Role Phone ELEAZAR COUGHLINNETTE Unavailable PROBLEMS Type Condition ICD9-CM Code [id number] Code Onset Dates Condition Status SNOMED Code Problem Chronic pain syndrome G89.4 Active 072978975 Problem Carpal tunnel syndrome, right upper limb G56.01 Active 86857499 Problem Generalized abdominal pain R10.84 Active 590809486 Problem Presence of IVC filter Z95.828 Active 050958401 Problem Proteinuria R80.9 Active 52759669 Problem Chronic pancreatitis, unspecified pancreatitis type K86.1 Active 032891284 Problem Anxiety F41.9 Active 35274565 Problem Gastroesophageal reflux disease, esophagitis presence not specified K21.9 Active 565733999 Problem Hypothyroidism, unspecified type E03.9 Active 05032299 Problem Vitamin D deficiency E55.9 Active 98192382 Problem Tobacco abuse counseling Z71.6 Active 75639873 Problem Gastroesophageal reflux disease without esophagitis K21.9 Active 918192248 Problem Type 2 diabetes mellitus without complication E11.9 Active 96972631 Problem Hyperlipidemia, unspecified hyperlipidemia E78.5 Active 01893397 Problem Essential hypertension I10 Active 77589734 Problem Acute cystitis with hematuria N30.01 Active 24514213 Problem Exacerbation of systemic lupus M32.9 Active 60266934 Problem Nausea R11.0 Active 393719919 Problem Pneumonia due to infectious organism, unspecified laterality, unspecified part of lung J18.9 Active 030394555 Problem Venous insufficiency I87.2 Active 00158275 Problem Chronic obstructive pulmonary disease, unspecified COPD type J44.9 Active 24100985 Problem Sciatica, unspecified laterality M54.30 Active 08983194 Problem Major depressive disorder, recurrent episode, unspecified severity F33.9 Active 30469001 Problem History of small bowel obstruction Z87.19 Active 479853934 Problem Port catheter in place Z95.828 Active 781126978 Problem History of pulmonary embolism Z86.711 Active 291247503 Problem Obstructive sleep apnea G47.33 Active 73777330 ALLERGIES Substance Reaction Event Type Date Status Ketorolac Trometh & Lidocaine shortness of breath Drug Allergy Apr, Active Compazine anaphylaxis Drug Allergy Apr, Active Reglan shortness of breath Drug Allergy Apr, Active Imitrex shortness of breath Drug Allergy Apr, Active Droperidol shortness of breath Drug Allergy Apr, Active Codeine-Guaifenesin shortness of breath Drug Allergy Apr, Active Ativan sedation Drug Allergy Apr, Active Aspirin shortness of breath Drug Allergy Apr, Active SOCIAL HISTORY No smoking Hx information available PLAN OF CARE Activity Details Follow Up 4 Weeks Reason:nausea VITAL SIGNS Height 67 in 2016-05-06 Weight 164.0 lbs 2016-05-06 Temperature 98.5 degrees Fahrenheit 2016-05-06 Heart Rate 110 bpm 2016-05-06 Respiratory Rate 22 2016-05-06 Oximetry 96 % 2016-05-06 BMI 25.68 kg/m2 2016-05-06 Blood pressure systolic 130 mmHg 2016-05-06 Blood pressure diastolic 78 mmHg 2016-05-06 MEDICATIONS Medication Instructions Dosage Frequency Start Date End Date Duration Status Timolol 0.5 % Ophthalmic 2 times a day 1 drop into affected eye 12h Active Levaquin 500 MG Orally Once a day 1 tablet 24h Apr, Apr, 10 day(s) Active Omeprazole 20 mg take 1 capsule (20 mg) by oral route once daily before a meal Jun, Active Oxycodone HCl 5 MG Orally every 6 hrs 1 tablet 6h Active OxyContin 20 MG Orally every 12 hrs 1 tablet 12h Active Simvastatin 20 mg 1 tablet by Oral route 1 time per day Nov, Active Levothyroxine Sodium 75 MCG TAKE 1 TABLET BY MOUTH DAILY Active Albuterol Sulfate 90 mcg/actuation 2 puffs by Inhalation route every 4-6 hours as needed for 30 days PRN May, Active Lisinopril 20 mg Orally Once a day 1 tablet 24h Dec, Active Xarelto 20 mg take 1 tablet (20 mg) by oral route once daily with the evening meal Nov, Active Cymbalta 60 mg Orally twice a day 1 capsule 12h Active Horizant 600 MG Orally twice a day 1 tablet in the evening with food 12h Active Vitamin D3 5000 UNIT Orally Once a day 1 capsule 24h Active Amlodipine Besylate 10 mg Orally Once a day 1 tablet 24h Mar, 30 day(s) Active Zanaflex 4 MG Orally Three times a day 1 tablet as needed 8h Feb, Active Eye Allergy Relief 0.025-0.3 % Ophthalmic PRN 2 drop into affected eye as needed Active DuoNeb 0.5 mg-3 mg(2.5 mg base)/3 mL 3 mL by Inhalation route 4 times per day PRN Dec, Active Zofran 4 MG Orally 4 times a day 1 tablets 6h Apr, 30 day(s) Active Sinus & Allergy 12 Hour 120 MG Orally PRN 1 tablet as needed Active Zofran ODT 8 MG sublingually 4 times a day 1 tablet by Oral route every 8 hours PRN nausea or vomiting 6h Apr, Active RESULTS No Results PROCEDURES Procedure Date Ordered Related Diagnosis Body Site MEASURE BLOOD OXYGEN LEVEL May 06, 2016 [facility] VISIT ESTABLISHED PATIENT May 06, 2016 Office Visit, Est Pt., Level 4 May 06, 2016 IMMUNIZATIONS No Known Immunizations
--- OUTSIDE RECORDS SUMMARY | 2017-06-07 19:25 | XMS REPORT ---
Author Author CED VICENTA Organization [facility] Address [address] [place] [address] Care Team Providers Care Engine Assembler Name Role Phone ELEAZAR COUGHLINNETTE Unavailable PROBLEMS Type Condition ICD9-CM Code [id number] Code Onset Dates Condition Status SNOMED Code Problem Chronic pain syndrome G89.4 Active 616199517 Problem Carpal tunnel syndrome, right upper limb G56.01 Active 52825117 Problem Generalized abdominal pain R10.84 Active 314679936 Problem Presence of IVC filter Z95.828 Active 109606806 Problem Proteinuria R80.9 Active 83511177 Problem Chronic pancreatitis, unspecified pancreatitis type K86.1 Active 212650299 Problem Anxiety F41.9 Active 02396964 Problem Gastroesophageal reflux disease, esophagitis presence not specified K21.9 Active 451502523 Problem Hypothyroidism, unspecified type E03.9 Active 87607534 Problem Vitamin D deficiency E55.9 Active 25136654 Problem Tobacco abuse counseling Z71.6 Active 23606256 Problem Gastroesophageal reflux disease without esophagitis K21.9 Active 092799938 Problem Type 2 diabetes mellitus without complication E11.9 Active 98779967 Problem Hyperlipidemia, unspecified hyperlipidemia E78.5 Active 37031882 Problem Essential hypertension I10 Active 24565631 Problem Acute cystitis with hematuria N30.01 Active 17412257 Problem Exacerbation of systemic lupus M32.9 Active 02402776 Problem Nausea R11.0 Active 750552073 Problem Pneumonia due to infectious organism, unspecified laterality, unspecified part of lung J18.9 Active 369254452 Problem Venous insufficiency I87.2 Active 15116124 Problem Chronic obstructive pulmonary disease, unspecified COPD type J44.9 Active 02835118 Problem Sciatica, unspecified laterality M54.30 Active 10579013 Problem Major depressive disorder, recurrent episode, unspecified severity F33.9 Active 75608240 Problem History of small bowel obstruction Z87.19 Active 025550006 Problem Port catheter in place Z95.828 Active 460970459 Problem History of pulmonary embolism Z86.711 Active 813011131 Problem Obstructive sleep apnea G47.33 Active 41692024 ALLERGIES Substance Reaction Event Type Date Status [...] Details Follow Up 2 - 3 Days Reason: VITAL SIGNS Height 67 in 2016-05-04 Weight 165.0 lbs 2016-05-04 Temperature 97.7 degrees Fahrenheit 2016-05-04 Heart Rate 118 bpm 2016-05-04 Respiratory Rate 24 2016-05-04 Oximetry 97 % 2016-05-04 BMI 25.84 kg/m2 2016-05-04 Blood pressure systolic 150 mmHg 2016-05-04 Blood pressure diastolic 76 mmHg 2016-05-04 MEDICATIONS Medication Instructions Dosage Frequency Start Date End Date Duration Status Vitamin D3 5000 UNIT Orally Once a day 1 capsule 24h Active Amlodipine Besylate 10 mg Orally Once a day 1 tablet 24h Mar, 30 day(s) Active Symbicort 160-4.5 mcg/actuation inhale 2 puffs by inhalation route 2 times per day in the morning and evening for 30 Jan, Active Albuterol Sulfate 90 mcg/actuation 2 puffs by Inhalation route every 4-6 hours as needed for 30 days PRN May, Active Cinnamon 500 mg 2 Tablet by Oral route 1 time per day Dec, Active Xarelto 20 mg take 1 tablet (20 mg) by oral route once daily with the evening meal Nov, Active OxyContin 20 MG Orally every 12 hrs 1 tablet 12h Active Sinus & Allergy 12 Hour 120 MG Orally PRN 1 tablet as needed Active Oxycodone HCl 5 MG Orally every 6 hrs 1 tablet 6h Active Simvastatin 20 mg 1 tablet by Oral route 1 time per day Nov, Active Levothyroxine Sodium 75 MCG TAKE 1 TABLET BY MOUTH DAILY Active Zofran 4 MG Orally 4 times a day 1 tablets 6h Apr, 30 day(s) Active Nitrofurantoin 100 MG Orally 2 times a day x 10 days 1 capsule with food Active Cymbalta 60 mg Orally twice a day 1 capsule 12h Active Omeprazole 20 mg take 1 capsule (20 mg) by oral route once daily before a meal Jun, Active Zanaflex 4 MG Orally Three times a day 1 tablet as needed 8h Feb, Active Levaquin 500 MG Orally Once a day 1 tablet 24h Apr, Apr, 10 day(s) Active Zofran ODT 8 MG sublingually as needed 1 tablet by Oral route every 8 hours PRN nausea or vomiting Active Lisinopril 20 mg Orally Once a day 1 tablet 24h Dec, Active DuoNeb 0.5 mg-3 mg(2.5 mg base)/3 mL 3 mL by Inhalation route 4 times per day PRN Dec, Active Pyridium 100 MG Orally Three times a day 2 tablets 8h Active Eye Allergy Relief 0.025-0.3 % Ophthalmic PRN 2 drop into affected eye as needed Active Cyclobenzaprine HCl 10 mg Orally in am & two tablets at bedtime 1 tablet Active Horizant 600 MG Orally twice a day 1 tablet in the evening with food 12h Active Zofran ODT 8 MG sublingually as needed 1 tablet by Oral route every 8 hours PRN nausea or vomiting Apr, Active PredniSONE 20 mg Orally Once a day x 5days 2 tablet Active Timolol 0.5 % Ophthalmic 2 times a day 1 drop into affected eye 12h Active RESULTS Name Result Date Reference Range Xray : Chest (IN HOUSE) 2016-05-04 PROCEDURES Procedure Date Ordered Related Diagnosis Body Site MEASURE BLOOD OXYGEN LEVEL May 04, 2016 CHEST X-RAY May 04, 2016 DEPO MEDROL 40 MG/ML May 04, 2016 Office Visit, Est Pt., Level 3 May 04, 2016 [facility] VISIT ESTABLISHED PATIENT May 04, 2016 THER/PROPH/DIAG INJ, SC/IM May 04, 2016 DEXAMETHASONE 4MG/ML (PER 1 MG) May 04, 2016 IMMUNIZATIONS Vaccine Route Administration Date Status DEXAMETHASONE 4MG/ML (PER 1 MG) IM Intramuscular May 04, 2016 Administered DEPO MEDROL 40 MG/ML IM Intramuscular May 04, 2016 Administered
--- OUTSIDE RECORDS SUMMARY | 2017-06-07 19:26 | XMS REPORT ---
Author Author CED VICENTA Organization [facility] Address [address] [place] [address] Care Team Providers Care Privacy Specialist Name Role Phone ELEAZAR COUGHLINNETTE Unavailable PROBLEMS Type Condition ICD9-CM Code [id number] Code Onset Dates Condition Status SNOMED Code Problem Chronic pain syndrome G89.4 Active 383948008 Problem Carpal tunnel syndrome, right upper limb G56.01 Active 94700694 Problem Generalized abdominal pain R10.84 Active 971195816 Problem Presence of IVC filter Z95.828 Active 204194664 Problem Proteinuria R80.9 Active 65035046 Problem Chronic pancreatitis, unspecified pancreatitis type K86.1 Active 650363371 Problem Anxiety F41.9 Active 94565549 Problem Gastroesophageal reflux disease, esophagitis presence not specified K21.9 Active 526771622 Problem Hypothyroidism, unspecified type E03.9 Active 23751732 Problem Vitamin D deficiency E55.9 Active 09392918 Problem Tobacco abuse counseling Z71.6 Active 63853414 Problem Gastroesophageal reflux disease without esophagitis K21.9 Active 543350096 Problem Type 2 diabetes mellitus without complication E11.9 Active 99480630 Problem Hyperlipidemia, unspecified hyperlipidemia E78.5 Active 36878790 Problem Essential hypertension I10 Active 79775941 Problem Acute cystitis with hematuria N30.01 Active 35099085 Problem Exacerbation of systemic lupus M32.9 Active 82439516 Problem Nausea R11.0 Active 858930299 Problem Pneumonia due to infectious organism, unspecified laterality, unspecified part of lung J18.9 Active 698540781 Problem Venous insufficiency I87.2 Active 05649271 Problem Chronic obstructive pulmonary disease, unspecified COPD type J44.9 Active 86293208 Problem Sciatica, unspecified laterality M54.30 Active 47959005 Problem Major depressive disorder, recurrent episode, unspecified severity F33.9 Active 45395604 Problem History of small bowel obstruction Z87.19 Active 405364243 Problem Port catheter in place Z95.828 Active 681957149 Problem History of pulmonary embolism Z86.711 Active 892122302 Problem Obstructive sleep apnea G47.33 Active 96627602 ALLERGIES Unknown Allergies SOCIAL HISTORY No smoking Hx information available PLAN OF CARE VITAL SIGNS MEDICATIONS Unknown Medications RESULTS No Results PROCEDURES No Known procedures IMMUNIZATIONS No Known Immunizations
--- OUTSIDE RECORDS SUMMARY | 2017-06-07 19:27 | XMS REPORT ---
Author Author CED VICENTA Organization [facility] Address [address] [place] [address] Care Team Providers Care Net Maker Name Role Phone ELEAZAR COUGHLINNETTE Unavailable PROBLEMS Type Condition ICD9-CM Code [id number] Code Onset Dates Condition Status SNOMED Code Problem Chronic pain syndrome G89.4 Active 832853193 Problem Carpal tunnel syndrome, right upper limb G56.01 Active 19388718 Problem Generalized abdominal pain R10.84 Active 079494499 Problem Presence of IVC filter Z95.828 Active 606161909 Problem Proteinuria R80.9 Active 13304481 Problem Chronic pancreatitis, unspecified pancreatitis type K86.1 Active 772329513 Problem Anxiety F41.9 Active 59820512 Problem Gastroesophageal reflux disease, esophagitis presence not specified K21.9 Active 165671806 Problem Hypothyroidism, unspecified type E03.9 Active 43594271 Problem Vitamin D deficiency E55.9 Active 00959851 Problem Tobacco abuse counseling Z71.6 Active 76506250 Problem Gastroesophageal reflux disease without esophagitis K21.9 Active 716097016 Problem Type 2 diabetes mellitus without complication E11.9 Active 49939863 Problem Hyperlipidemia, unspecified hyperlipidemia E78.5 Active 10430010 Problem Essential hypertension I10 Active 92246315 Problem Acute cystitis with hematuria N30.01 Active 78434246 Problem Exacerbation of systemic lupus M32.9 Active 76758627 Problem Nausea R11.0 Active 279092914 Problem Pneumonia due to infectious organism, unspecified laterality, unspecified part of lung J18.9 Active 830046813 Problem Venous insufficiency I87.2 Active 31062685 Problem Chronic obstructive pulmonary disease, unspecified COPD type J44.9 Active 48453563 Problem Sciatica, unspecified laterality M54.30 Active 95153883 Problem Major depressive disorder, recurrent episode, unspecified severity F33.9 Active 74712901 Problem History of small bowel obstruction Z87.19 Active 829976030 Problem Port catheter in place Z95.828 Active 675978333 Problem History of pulmonary embolism Z86.711 Active 794446611 Problem Obstructive sleep apnea G47.33 Active 52823421 ALLERGIES No Information SOCIAL HISTORY Never Assessed PLAN OF CARE VITAL SIGNS MEDICATIONS Medication Instructions Dosage Frequency Start Date End Date Duration Status Morphine Sulfate ER 30 MG Orally every 12 hrs 1 tablet 12h Sep, 28 days Active Morphine Sulfate 15 MG Orally 3 times a day 1 tablet as needed 8h Sep, 28 days Active RESULTS No Results PROCEDURES [...]
--- OUTSIDE RECORDS SUMMARY | 2017-06-07 19:27 | XMS REPORT ---
Author Author CED VICENTA Organization [facility] Address [address] [place] [address] Care Team Providers Care Sheet Pile Driver Operator Name Role Phone ELEAZAR COUGHLINNETTE Unavailable PROBLEMS Type Condition ICD9-CM Code [id number] Code Onset Dates Condition Status SNOMED Code Problem Chronic pain syndrome G89.4 Active 252964984 Problem Carpal tunnel syndrome, right upper limb G56.01 Active 66298434 Problem Generalized abdominal pain R10.84 Active 566566097 Problem Presence of IVC filter Z95.828 Active 747648307 Problem Proteinuria R80.9 Active 61036368 Problem Chronic pancreatitis, unspecified pancreatitis type K86.1 Active 463084530 Problem Anxiety F41.9 Active 09435377 Problem Gastroesophageal reflux disease, esophagitis presence not specified K21.9 Active 511748638 Problem Hypothyroidism, unspecified type E03.9 Active 95372169 Problem Vitamin D deficiency E55.9 Active 11428171 Problem Tobacco abuse counseling Z71.6 Active 18719636 Problem Gastroesophageal reflux disease without esophagitis K21.9 Active 786461251 Problem Type 2 diabetes mellitus without complication E11.9 Active 48718062 Problem Hyperlipidemia, unspecified hyperlipidemia E78.5 Active 12848747 Problem Essential hypertension I10 Active 43166699 Problem Acute cystitis with hematuria N30.01 Active 20594657 Problem Exacerbation of systemic lupus M32.9 Active 56891147 Problem Nausea R11.0 Active 551611451 Problem Pneumonia due to infectious organism, unspecified laterality, unspecified part of lung J18.9 Active 892549436 Problem Venous insufficiency I87.2 Active 18522903 Problem Chronic obstructive pulmonary disease, unspecified COPD type J44.9 Active 74363326 Problem Sciatica, unspecified laterality M54.30 Active 65825450 Problem Major depressive disorder, recurrent episode, unspecified severity F33.9 Active 67148658 Problem History of small bowel obstruction Z87.19 Active 349123726 Problem Port catheter in place Z95.828 Active 949211998 Problem History of pulmonary embolism Z86.711 Active 796404954 Problem Obstructive sleep apnea G47.33 Active 25575487 ALLERGIES No Information SOCIAL HISTORY Never Assessed PLAN OF CARE VITAL SIGNS MEDICATIONS Medication Instructions Dosage Frequency Start Date End Date Duration Status Pyridium 200 mg Orally Three times a day 1 tablet after meals 8h August, August, 03 days Active RESULTS No Results PROCEDURES No [...]
--- OUTSIDE RECORDS SUMMARY | 2017-06-07 19:27 | XMS REPORT ---
Author Author CED VICENTA Organization [facility] Address [address] [place] [address] Care Team Providers Care Apparel Rental Clerk Name Role Phone ELEAZAR COUGHLINNETTE Unavailable PROBLEMS Type Condition ICD9-CM Code [id number] Code Onset Dates Condition Status SNOMED Code Problem Chronic pain syndrome G89.4 Active 544872435 Problem Carpal tunnel syndrome, right upper limb G56.01 Active 44419121 Problem Generalized abdominal pain R10.84 Active 778349383 Problem Presence of IVC filter Z95.828 Active 493670826 Problem Proteinuria R80.9 Active 37822317 Problem Chronic pancreatitis, unspecified pancreatitis type K86.1 Active 366094681 Problem Anxiety F41.9 Active 09129750 Problem Gastroesophageal reflux disease, esophagitis presence not specified K21.9 Active 866792784 Problem Hypothyroidism, unspecified type E03.9 Active 55335390 Problem Vitamin D deficiency E55.9 Active 28650541 Problem Tobacco abuse counseling Z71.6 Active 62600282 Problem Gastroesophageal reflux disease without esophagitis K21.9 Active 941479055 Problem Type 2 diabetes mellitus without complication E11.9 Active 94638150 Problem Hyperlipidemia, unspecified hyperlipidemia E78.5 Active 24956168 Problem Essential hypertension I10 Active 54862214 Problem Acute cystitis with hematuria N30.01 Active 84867933 Problem Exacerbation of systemic lupus M32.9 Active 86177828 Problem Nausea R11.0 Active 718523774 Problem Pneumonia due to infectious organism, unspecified laterality, unspecified part of lung J18.9 Active 432508230 Problem Venous insufficiency I87.2 Active 87031415 Problem Chronic obstructive pulmonary disease, unspecified COPD type J44.9 Active 79229406 Problem Sciatica, unspecified laterality M54.30 Active 02558735 Problem Major depressive disorder, recurrent episode, unspecified severity F33.9 Active 29104428 Problem History of small bowel obstruction Z87.19 Active 839948596 Problem Port catheter in place Z95.828 Active 791876910 Problem History of pulmonary embolism Z86.711 Active 235482100 Problem Obstructive sleep apnea G47.33 Active 26396282 ALLERGIES No Information SOCIAL HISTORY Never Assessed PLAN OF CARE VITAL SIGNS MEDICATIONS Medication Instructions Dosage Frequency Start Date End Date Duration Status Morphine Sulfate 15 MG Orally 3 times a day 1 tablet as needed 8h August, 28 days Active Morphine Sulfate ER 30 MG Orally every 12 hrs 1 tablet 12h August, 28 days Active RESULTS No Results PROCEDURES [...]
--- OUTSIDE RECORDS SUMMARY | 2017-06-07 19:35 | XMS REPORT | Continuity of Care Document ---
Author Author [facility] Address Unknown Phone Unavailable Allergies Active Description Code Type Severity Reaction Onset Reported/Identified Relationship to Patient Clinical Status Yes aspirin Drug Allergy N/A N/A 02/05/2011 Yes codeine Drug Allergy N/A N/A 02/05/2011 Yes Compazine Drug Allergy N/A N/A 02/05/2011 Yes droperidol Drug Allergy N/A N/A 02/05/2011 Yes Imitrex Drug Allergy N/A N/A 02/05/2011 Yes Reglan Drug Allergy N/A N/A 02/05/2011 Yes Toradol Drug Allergy N/A N/A 02/05/2011 Yes aspirin Drug Allergy 02/05/2011 Yes codeine Drug Allergy 02/05/2011 Yes Compazine Drug Allergy 02/05/2011 Yes droperidol Drug Allergy 02/05/2011 Yes Imitrex Drug Allergy 02/05/2011 Yes Reglan Drug Allergy 02/05/2011 Yes Toradol Drug Allergy 02/05/2011 Yes droperidol [id number] Drug Allergy Severe SOB 02/22/2011 Yes ranitidine HCl [id number] Drug Allergy Moderate SOB, DIAPHORETI 02/22/2011 Yes Ativan Drug Allergy N/A N/A 08/31/2011 Yes Ativan 1 mg Tablet Drug Allergy 08/31/2011 Yes aspirin [id number] Drug Allergy Unknown N/A 07/03/2013 Yes codeine [id number] Drug Allergy Unknown N/A 07/03/2013 Yes ketorolac tromethamine [id number] Drug Allergy Unknown N/A 07/03/2013 Yes metoclopramide HCl [id number] Drug Allergy Unknown N/A 07/03/2013 Yes povidone-iodine [id number] Drug Allergy Unknown RASH 07/03/2013 Yes prochlorperazine edisylate [id number] Drug Allergy Unknown N/A 2013 Yes prochlorperazine maleate [id number] Drug Allergy Unknown N/A 07/03/2013 Yes Soap [id number] Drug Allergy Unknown RASH 07/03/2013 Yes sumatriptan [id number] Drug Allergy Unknown N/A 07/03/2013 Yes sumatriptan succinate [id number] Drug Allergy Unknown N/A 07/03/2013 Medications There is no data. Problems Date Dx Coded Attending Type Code Diagnosis Diagnosed By 10/19/2010 Ot 276.8 HYPOPOTASSEMIA 10/19/2010 Ot 786.50 CHEST PAIN NOS 10/19/2010 Ot 786.52 PAINFUL RESPIRATION 10/23/2010 Ot 250.00 DIAB WALLY WO COMPL, TYPE II OR UNSPEC TY 10/23/2010 Ot 401.9 HYPERTENSION NOS 10/23/2010 Ot 496 CHR AIRWAY OBSTRUCT NEC 10/23/2010 Ot 710.0 SYST LUPUS ERYTHEMATOSIS 10/23/2010 Ot 786.52 PAINFUL RESPIRATION 10/23/2010 Ot V58.69 OTH MED,LT, CURRENT USE 10/28/2010 Ot 244.9 HYPOTHYROIDISM NOS 10/28/2010 Ot 272.4 HYPERLIPIDEMIA NEC/NOS 10/28/2010 Ot 286.9 COAGULAT DEFECT NEC/NOS 10/28/2010 Ot 305.1 TOBACCO USE DISORDER 10/28/2010 Ot 311 DEPRESSIVE DISORDER NEC 10/28/2010 Ot 338.29 OTHER CHRONIC PAIN 10/28/2010 Ot 401.9 HYPERTENSION NOS 10/28/2010 Ot 453.41 ACUTE VENOUS EMBOLISM THROMBOSIS DEEP 10/28/2010 Ot 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 10/28/2010 Ot 710.0 SYST LUPUS ERYTHEMATOSIS 10/28/2010 Ot 719.40 JOINT PAIN- UNSPEC 10/28/2010 Ot 789.00 ABDOMINAL PAIN, UNSPECIFIED SITE 10/28/2010 Ot 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 10/28/2010 Ot V12.51 HX-VENOUS THROMBOSIS EMBOLISM 11/09/2010 496 CHRONIC AIRWAY OBSTRUCTION NOT ELSEWHERE CLASSIFIED 11/09/2010 710.0 SYSTEMIC LUPUS ERYTHEMATOSUS 11/09/2010 496 CHRONIC AIRWAY OBSTRUCTION NOT ELSEWHERE CLASSIFIED 11/09/2010 710.0 SYSTEMIC LUPUS ERYTHEMATOSUS 11/09/2010 HERMINIA SEGURA MD [id number] CHRONIC AIRWAY OBSTRUCTION NOT ELSEWHERE CLASSIFIED 11/09/2010 HERMINIA SEGURA MD 710.0 SYSTEMIC LUPUS ERYTHEMATOSUS 11/09/2010 HERMINIA SEGURA MD CHRONIC AIRWAY OBSTRUCTION NOT ELSEWHERE CLASSIFIED 11/09/2010 HERMINIA SEGURA MD 710.0 SYSTEMIC LUPUS ERYTHEMATOSUS 11/09/2010 496 CHRONIC AIRWAY OBSTRUCTION NOT ELSEWHERE CLASSIFIED 11/09/2010 710.0 SYSTEMIC LUPUS ERYTHEMATOSUS 11/09/2010 496 CHRONIC AIRWAY OBSTRUCTION NOT ELSEWHERE CLASSIFIED 11/09/2010 710.0 SYSTEMIC LUPUS ERYTHEMATOSUS 11/09/2010 496 CHRONIC AIRWAY OBSTRUCTION NOT ELSEWHERE CLASSIFIED 11/09/2010 710.0 SYSTEMIC LUPUS ERYTHEMATOSUS 11/09/2010 496 CHRONIC AIRWAY OBSTRUCTION NOT ELSEWHERE CLASSIFIED 11/09/2010 710.0 SYSTEMIC LUPUS ERYTHEMATOSUS 11/09/2010 ANDERSON SEGURA PSYD ANN L 496 CHRONIC AIRWAY OBSTRUCTION NOT ELSEWHERE CLASSIFIED 11/09/2010 ANDERSON SEGURA PSYD ANN L 710.0 SYSTEMIC LUPUS ERYTHEMATOSUS 11/09/2010 HICKEY DO, FADUMO K 496 CHRONIC AIRWAY OBSTRUCTION NOT ELSEWHERE CLASSIFIED 11/09/2010 HICKEY DO FADUMO K 710.0 SYSTEMIC LUPUS ERYTHEMATOSUS 11/09/2010 HICKEY DO, FADUMO K 496 CHRONIC AIRWAY OBSTRUCTION NOT ELSEWHERE CLASSIFIED 11/09/2010 HICKEY DO FADUMO K 710.0 SYSTEMIC LUPUS ERYTHEMATOSUS 11/09/2010 ANDERSON SEGURA PSYD ANN L 496 CHRONIC AIRWAY OBSTRUCTION NOT ELSEWHERE CLASSIFIED 11/09/2010 ANDERSON SEGURA PSYD L 710.0 SYSTEMIC LUPUS ERYTHEMATOSUS 11/09/2010 HAZEL GARCIA MD 496 CHRONIC AIRWAY OBSTRUCTION NOT ELSEWHERE CLASSIFIED 11/09/2010 HAZEL GARCIA MD 710.0 SYSTEMIC LUPUS ERYTHEMATOSUS 11/09/2010 HAZEL GARCIA MD 496 CHRONIC AIRWAY OBSTRUCTION NOT ELSEWHERE CLASSIFIED 11/09/2010 HAZEL GARCIA MD 710.0 SYSTEMIC LUPUS ERYTHEMATOSUS 11/09/2010 HAZEL GARCIA MD 496 CHRONIC AIRWAY OBSTRUCTION NOT ELSEWHERE CLASSIFIED 11/09/2010 HAZEL GARCIA MD 710.0 SYSTEMIC LUPUS ERYTHEMATOSUS 11/09/2010 JUSTICE TRIPATHI APRN 496 CHRONIC AIRWAY OBSTRUCTION NOT ELSEWHERE CLASSIFIED 11/09/2010 JUSTICE TRIPATHI APRN 710.0 SYSTEMIC LUPUS ERYTHEMATOSUS 11/09/2010 HAZEL GARCIA MD 496 CHRONIC AIRWAY OBSTRUCTION NOT ELSEWHERE CLASSIFIED 11/09/2010 HAZEL GARCIA MD 710.0 SYSTEMIC LUPUS ERYTHEMATOSUS 11/09/2010 HAZEL GARCIA MD 496 CHRONIC AIRWAY OBSTRUCTION NOT ELSEWHERE CLASSIFIED 11/09/2010 HAZEL GARCIA MD N 710.0 SYSTEMIC LUPUS ERYTHEMATOSUS 11/09/2010 HAZEL GARCIA MD N 496 CHRONIC AIRWAY OBSTRUCTION NOT ELSEWHERE CLASSIFIED 11/09/2010 HAZEL GARCIA MD N 710.0 SYSTEMIC LUPUS ERYTHEMATOSUS 11/09/2010 HAZEL GARCIA MD N 496 CHRONIC AIRWAY OBSTRUCTION NOT ELSEWHERE CLASSIFIED 11/09/2010 HAZEL GARCIA MD N 710.0 SYSTEMIC LUPUS ERYTHEMATOSUS 11/09/2010 496 CHRONIC AIRWAY OBSTRUCTION NOT ELSEWHERE CLASSIFIED 11/09/2010 710.0 SYSTEMIC LUPUS ERYTHEMATOSUS 11/09/2010 HAZEL GARCIA MD N 496 CHRONIC AIRWAY OBSTRUCTION NOT ELSEWHERE CLASSIFIED 11/09/2010 HAZEL GARCIA MD N 710.0 SYSTEMIC LUPUS ERYTHEMATOSUS 11/09/2010 HAZEL GARCIA MD N 496 CHRONIC AIRWAY OBSTRUCTION NOT ELSEWHERE CLASSIFIED 11/09/2010 HAZEL GARCIA MD N 710.0 SYSTEMIC LUPUS ERYTHEMATOSUS 11/09/2010 HAZEL GARCIA MD N 496 CHRONIC AIRWAY OBSTRUCTION NOT ELSEWHERE CLASSIFIED 11/09/2010 HAZEL GARCIA MD N 710.0 SYSTEMIC LUPUS ERYTHEMATOSUS 11/09/2010 HAZEL GARCIA MD N 496 CHRONIC AIRWAY OBSTRUCTION NOT ELSEWHERE CLASSIFIED 11/09/2010 HAZEL GARCIA MD N 710.0 SYSTEMIC LUPUS ERYTHEMATOSUS 11/09/2010 FADUMO HICKEY DO 496 CHRONIC AIRWAY OBSTRUCTION NOT ELSEWHERE CLASSIFIED 11/09/2010 FADUMO HICKEY DO 710.0 SYSTEMIC LUPUS ERYTHEMATOSUS 11/09/2010 HAZEL GARCIA MD N 496 CHRONIC AIRWAY OBSTRUCTION NOT ELSEWHERE CLASSIFIED 11/09/2010 HAZEL GARCIA MD N 710.0 SYSTEMIC LUPUS ERYTHEMATOSUS 11/09/2010 HAZEL GARCIA MD N 496 CHRONIC AIRWAY OBSTRUCTION NOT ELSEWHERE CLASSIFIED 11/09/2010 HAZEL GARCIA MD N 710.0 SYSTEMIC LUPUS ERYTHEMATOSUS 11/09/2010 496 CHRONIC AIRWAY OBSTRUCTION NOT ELSEWHERE CLASSIFIED 11/09/2010 710.0 SYSTEMIC LUPUS ERYTHEMATOSUS 11/09/2010 HAZEL GARCIA MD N 496 CHRONIC AIRWAY OBSTRUCTION NOT ELSEWHERE CLASSIFIED 11/09/2010 HAZEL GARCIA MD N 710.0 SYSTEMIC LUPUS ERYTHEMATOSUS 11/09/2010 FADUMO HICKEY DO K 496 CHRONIC AIRWAY OBSTRUCTION NOT ELSEWHERE CLASSIFIED 11/09/2010 FADUMO HICKEY DO 710.0 SYSTEMIC LUPUS ERYTHEMATOSUS 11/28/2010 Ot 244.9 HYPOTHYROIDISM NOS 11/28/2010 Ot 272.4 HYPERLIPIDEMIA NEC/NOS 11/28/2010 Ot 286.9 COAGULAT DEFECT NEC/NOS 11/28/2010 Ot 401.9 HYPERTENSION NOS 11/28/2010 Ot 710.0 SYST LUPUS ERYTHEMATOSIS 11/28/2010 Ot 786.50 CHEST PAIN NOS 11/28/2010 Ot 786.52 PAINFUL RESPIRATION 11/28/2010 Ot V12.51 HX-VENOUS THROMBOSIS EMBOLISM 11/28/2010 Ot V58.69 OTH MED,LT, CURRENT USE 11/30/2010 Ot 729.5 PAIN IN LIMB 12/01/2010 729.1 Myalgia And Myositis Unspecified 12/01/2010 729.1 Myalgia And Myositis Unspecified 12/01/2010 HERMINIA SEGURA MD 729.1 Myalgia And Myositis Unspecified 12/01/2010 HERMINIA SEGURA MD 729.1 Myalgia And Myositis Unspecified 12/01/2010 729.1 Myalgia And Myositis Unspecified 12/01/2010 729.1 Myalgia And Myositis Unspecified 12/01/2010 729.1 Myalgia And Myositis Unspecified 12/01/2010 729.1 Myalgia And Myositis Unspecified 12/01/2010 ANDERSON SEGURA PSYD 729.1 Myalgia And Myositis Unspecified 12/01/2010 FADUMO HICKEY DO 729.1 Myalgia And Myositis Unspecified 12/01/2010 FADUMO HICKEY DO 729.1 Myalgia And Myositis Unspecified 12/01/2010 ANDERSON SEGURA PSYD 729.1 Myalgia And Myositis Unspecified 12/01/2010 HAZEL GARCIA MD 729.1 Myalgia And Myositis Unspecified 12/01/2010 HAZEL GARCIA MD 729.1 Myalgia And Myositis Unspecified 12/01/2010 HAZEL GARCIA MD 729.1 Myalgia And Myositis Unspecified 12/01/2010 JUSTICE TRIPATHI APRN 729.1 Myalgia And Myositis Unspecified 12/01/2010 RADHA MD, HAZEL N 729.1 Myalgia And Myositis Unspecified 12/01/2010 HAZEL GARCIA MD N 729.1 Myalgia And Myositis Unspecified 12/01/2010 HAZEL GARCIA MD N 729.1 Myalgia And Myositis Unspecified 12/01/2010 HAZEL GARCIA MD N 729.1 Myalgia And Myositis Unspecified 12/01/2010 729.1 Myalgia And Myositis Unspecified 12/01/2010 HAZEL GARCIA MD N 729.1 Myalgia And Myositis Unspecified 12/01/2010 HAZEL GARCIA MD N 729.1 Myalgia And Myositis Unspecified 12/01/2010 HAZEL GARCIA MD N 729.1 Myalgia And Myositis Unspecified 12/01/2010 HAZEL GARCIA MD N 729.1 Myalgia And Myositis Unspecified 12/01/2010 FADUMO HICKEY DO 729.1 Myalgia And Myositis Unspecified 12/01/2010 HAZEL GARCIA MD N 729.1 Myalgia And Myositis Unspecified 12/01/2010 HAZEL GARCIA MD N 729.1 Myalgia And Myositis Unspecified 12/01/2010 729.1 Myalgia And Myositis Unspecified 12/01/2010 HAZEL GARCIA MD N 729.1 Myalgia And Myositis Unspecified 12/01/2010 FADUMO HICKEY DO 729.1 Myalgia And Myositis Unspecified 02/05/2011 466.0 Acute Bronchitis 02/05/2011 466.0 Acute Bronchitis 02/05/2011 HERMINIA SEGURA MD 466.0 Acute Bronchitis 02/05/2011 HERMINIA SEGURA MD 466.0 Acute Bronchitis 02/05/2011 466.0 Acute Bronchitis 02/05/2011 466.0 Acute Bronchitis 02/05/2011 466.0 Acute Bronchitis 02/05/2011 466.0 Acute Bronchitis 02/05/2011 ANDERSON SEGURA PSYD 466.0 Acute Bronchitis 02/05/2011 FADUMO HICKEY DO 466.0 Acute Bronchitis 02/05/2011 HICKEY DO, FADUMO K 466.0 Acute Bronchitis 02/05/2011 COLTON WARDKALIEANDERSON L 466.0 Acute Bronchitis 02/05/2011 HAZEL GARCIA MD N 466.0 Acute Bronchitis 02/05/2011 HAZEL GARCIA MD N 466.0 Acute Bronchitis 02/05/2011 HAZEL GARCIA MD N 466.0 Acute Bronchitis 02/05/2011 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, 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 466.0 Acute Bronchitis 02/05/2011 HAZEL GARCIA MD N 466.0 Acute Bronchitis 02/05/2011 HAZEL GARCIA MD N 466.0 Acute Bronchitis 02/05/2011 HAZEL GARCIA MD N 466.0 Acute Bronchitis 02/05/2011 HAZEL GARCIA MD N 466.0 Acute Bronchitis 02/05/2011 466.0 Acute Bronchitis 02/05/2011 HAZEL GARCIA MD N 466.0 Acute Bronchitis 02/05/2011 HAZEL GARCIA MD N 466.0 Acute Bronchitis 02/05/2011 HAZEL GARCIA MD N 466.0 Acute Bronchitis 02/05/2011 HAZEL GARCIA MD N 466.0 Acute Bronchitis 02/05/2011 FADUMO HICKEY DO K 466.0 Acute Bronchitis 02/05/2011 HAZEL GARCIA MD N 466.0 Acute Bronchitis 02/05/2011 HAZEL GARCIA MD N 466.0 Acute Bronchitis 02/05/2011 466.0 Acute Bronchitis 02/05/2011 HAZEL GARCIA MD N 466.0 Acute Bronchitis 02/05/2011 FADUMO HICKEY DO K 466.0 Acute Bronchitis 02/11/2011 Ot 451.89 THROMBOPHLEBITIS NEC 02/11/2011 Ot 611.0 INFLAM DISEASE OF BREAST 02/11/2011 Ot 611.71 MASTODYNIA 02/22/2011 Ot 286.9 COAGULAT DEFECT NEC/NOS 02/22/2011 Ot 401.9 HYPERTENSION NOS 02/22/2011 Ot 459.81 VENOUS INSUFFICIENCY NOS 02/22/2011 Ot 496 CHR AIRWAY OBSTRUCT NEC 02/22/2011 Ot 710.0 SYST LUPUS ERYTHEMATOSIS 02/22/2011 Ot V12.51 HX-VENOUS THROMBOSIS EMBOLISM 02/22/2011 Ot V58.69 OTH MED,LT, CURRENT USE 03/06/2011 Ot 496 CHR AIRWAY OBSTRUCT NEC 03/06/2011 Ot 786.05 SHORTNESS OF BREATH 04/19/2011 Ot 244.9 HYPOTHYROIDISM NOS 04/19/2011 Ot 249.00 SEC DIABETES MELLITUS W/OUT MENTION COMP 04/19/2011 Ot 272.4 HYPERLIPIDEMIA NEC/NOS 04/19/2011 Ot 305.1 TOBACCO USE DISORDER 04/19/2011 Ot 401.9 HYPERTENSION NOS 04/19/2011 Ot 416.2 CHRONIC PULMONARY EMBOLISM 04/19/2011 Ot 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 04/19/2011 Ot 496 CHR AIRWAY OBSTRUCT NEC 04/19/2011 Ot 710.0 SYST LUPUS ERYTHEMATOSIS 04/19/2011 Ot V45.77 ACQRD ABSENCE OF GENITAL ORGANS 04/19/2011 Ot V58.63 LONG-TERM( CURRENT)USE OF ANTIPLATELET/AN 04/19/2011 Ot V58.69 OTH MED,LT, CURRENT USE 04/19/2011 Ot V58.81 FIT/ADJ VASCULAR CATHETER 04/20/2011 401.1 HYPERTENSION, BENIGN ESSENTIAL 04/20/2011 782.3 Edema 04/20/2011 784.0 Headache 04/20/2011 401.1 HYPERTENSION, BENIGN ESSENTIAL 04/20/2011 782.3 Edema 04/20/2011 784.0 Headache 04/20/2011 HERMINIA SEGURA MD 401.1 HYPERTENSION, BENIGN ESSENTIAL 04/20/2011 HERMINIA SEGURA MD 782.3 Edema 04/20/2011 HERMINIA SEGURA MD 784.0 Headache 04/20/2011 HERMINIA SEGURA MD 401.1 HYPERTENSION, BENIGN ESSENTIAL 04/20/2011 HERMINIA SEGURA MD 782.3 Edema 04/20/2011 HERMINIA SEGURA MD 784.0 Headache 04/20/2011 401.1 HYPERTENSION, BENIGN ESSENTIAL 04/20/2011 782.3 Edema 04/20/2011 784.0 Headache 04/20/2011 401.1 HYPERTENSION, BENIGN ESSENTIAL 04/20/2011 782.3 Edema 04/20/2011 784.0 Headache 04/20/2011 401.1 HYPERTENSION, BENIGN ESSENTIAL 04/20/2011 782.3 Edema 04/20/2011 784.0 Headache 04/20/2011 401.1 HYPERTENSION, BENIGN ESSENTIAL 04/20/2011 782.3 Edema 04/20/2011 784.0 Headache 04/20/2011 ANDERSON SEGURA PSYD L 401.1 HYPERTENSION, BENIGN ESSENTIAL 04/20/2011 ANDERSON SEGURA PSYD ANN L 782.3 Edema 04/20/2011 ANDERSON SEGURA PSYD L 784.0 Headache 04/20/2011 HICKEY DO, FADUMO K 401.1 HYPERTENSION, BENIGN ESSENTIAL 04/20/2011 HICKEY DO, FADUMO K 782.3 Edema 04/20/2011 HICKEY DO, FADUMO K 784.0 Headache 04/20/2011 HICKEY DO, FADUMO K 401.1 HYPERTENSION, BENIGN ESSENTIAL 04/20/2011 HICKEY DO, FADUMO K 782.3 Edema 04/20/2011 HICKYE DO, FADUMO K 784.0 Headache 04/20/2011 ANDERSON SEGURA PSYD L 401.1 HYPERTENSION, BENIGN ESSENTIAL 04/20/2011 ANDERSON SEGURA PSYD L 782.3 Edema 04/20/2011 ANDERSON SEGURA PSYD L 784.0 Headache 04/20/2011 HAZEL GARCIA MD N 401.1 HYPERTENSION, BENIGN ESSENTIAL 04/20/2011 HAZEL GARCIA MD N 782.3 Edema 04/20/2011 HAZEL GARCIA MD N 784.0 Headache 04/20/2011 HAZEL GARCIA MD N 401.1 HYPERTENSION, BENIGN ESSENTIAL 04/20/2011 HAZEL GARCIA MD N 782.3 Edema 04/20/2011 HAZEL GARCIA MD N 784.0 Headache 04/20/2011 HAZEL GARCIA MD N 401.1 HYPERTENSION, BENIGN ESSENTIAL 04/20/2011 HAZEL GARCIA MD N 782.3 Edema 04/20/2011 HAZEL GARCIA MD N 784.0 Headache 04/20/2011 DEUCE MALIK, JUSTICE A 401.1 HYPERTENSION, BENIGN ESSENTIAL 04/20/2011 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, 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 A 782.3 Edema 04/20/2011 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, 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 A 784.0 Headache 04/20/2011 HAZEL GARCIA MD N 401.1 HYPERTENSION, BENIGN ESSENTIAL 04/20/2011 HAZEL GARCIA MD N 782.3 Edema 04/20/2011 HAZEL GARCIA MD N 784.0 Headache 04/20/2011 HAZEL GARCIA MD N 401.1 HYPERTENSION, BENIGN ESSENTIAL 04/20/2011 HAZEL GARCIA MD N 782.3 Edema 04/20/2011 HAZEL GARCIA MD N 784.0 Headache 04/20/2011 HAZEL GARCIA MD N 401.1 HYPERTENSION, BENIGN ESSENTIAL 04/20/2011 HAEZL GARCIA MD N 782.3 Edema 04/20/2011 HAZEL GARCIA MD N 784.0 Headache 04/20/2011 HAZEL GARCIA MD N 401.1 HYPERTENSION, BENIGN ESSENTIAL 04/20/2011 HAZEL GARCIA MD N 782.3 Edema 04/20/2011 HAZEL GARCIA MD N 784.0 Headache 04/20/2011 401.1 HYPERTENSION, BENIGN ESSENTIAL 04/20/2011 782.3 Edema 04/20/2011 784.0 Headache 04/20/2011 HAZEL GARCIA MD N 401.1 HYPERTENSION, BENIGN ESSENTIAL 04/20/2011 HAZEL GARCIA MD N 782.3 Edema 04/20/2011 HAZEL GARCIA MD N 784.0 Headache 04/20/2011 HAZEL GARCIA MD N 401.1 HYPERTENSION, BENIGN ESSENTIAL 04/20/2011 HAZEL GARCIA MD N 782.3 Edema 04/20/2011 HAZEL GARCIA MD N 784.0 Headache 04/20/2011 HAZEL GARCIA MD N 401.1 HYPERTENSION, BENIGN ESSENTIAL 04/20/2011 HAZEL GARCIA MD N 782.3 Edema 04/20/2011 HAZEL GARCIA MD N 784.0 Headache 04/20/2011 HAZEL GARCIA MD N 401.1 HYPERTENSION, BENIGN ESSENTIAL 04/20/2011 HAZEL GARCIA MD N 782.3 Edema 04/20/2011 HAZEL GARCIA MD N 784.0 Headache 04/20/2011 HICKEY DO, FADUMO K 401.1 HYPERTENSION, BENIGN ESSENTIAL 04/20/2011 HICKEY DO, FADUMO K 782.3 Edema 04/20/2011 HICKEY DO, FADUMO K 784.0 Headache 04/20/2011 HAZEL GARCIA MD N 401.1 HYPERTENSION, BENIGN ESSENTIAL 04/20/2011 HAZEL GARCIA MD N 782.3 Edema 04/20/2011 HAZEL GARCIA MD N 784.0 Headache 04/20/2011 HAZEL GARCIA MD N 401.1 HYPERTENSION, BENIGN ESSENTIAL 04/20/2011 HAZEL GARCIA MD N 782.3 Edema 04/20/2011 HAZEL GARCIA MD N 784.0 Headache 04/20/2011 401.1 HYPERTENSION, BENIGN ESSENTIAL 04/20/2011 782.3 Edema 04/20/2011 784.0 Headache 04/20/2011 HAZEL GARCIA MD N 401.1 HYPERTENSION, BENIGN ESSENTIAL 04/20/2011 HAZEL GARCIA MD N 782.3 Edema 04/20/2011 HAZEL GARCIA MD N 784.0 Headache 04/20/2011 HICKEY , FADUMO K 401.1 HYPERTENSION, BENIGN ESSENTIAL 04/20/2011 RUPERTO BOWIE FADUMO K 782.3 Edema 04/20/2011 HICKEY DO, FADUMO K 784.0 Headache 04/23/2011 729.5 Pain In Limb 04/23/2011 729.5 Pain In Limb 04/23/2011 HERMINIA SEGURA MD 729.5 Pain In Limb 04/23/2011 HERMINIA SEGURA MD 729.5 Pain In Limb 04/23/2011 729.5 Pain In Limb 04/23/2011 729.5 Pain In Limb 04/23/2011 729.5 Pain In Limb 04/23/2011 729.5 Pain In Limb 04/23/2011 ANDERSON SEGURA PSYD 729.5 Pain In Limb 04/23/2011 FADUMO HICKEY DO K 729.5 Pain In Limb 04/23/2011 FADUMO HICKEY DO K 729.5 Pain In Limb 04/23/2011 ANDERSON SEGURA PSYD 729.5 Pain In Limb 04/23/2011 HAZEL GARCIA MD 729.5 Pain In Limb 04/23/2011 HAZEL GARCIA MD 729.5 Pain In Limb 04/23/2011 HAZEL GARCIA MD 729.5 Pain In Limb 04/23/2011 JUSTICE TRIPATHI APRN 729.5 Pain In Limb 04/23/2011 HAZEL GARCIA MD N 729.5 Pain In Limb 04/23/2011 HAZEL GARCIA MD N 729.5 Pain In Limb 04/23/2011 HAZEL GARCIA MD N 729.5 Pain In Limb 04/23/2011 HAZEL GARCIA MD N 729.5 Pain In Limb 04/23/2011 729.5 Pain In Limb 04/23/2011 HAZEL GARCIA MD N 729.5 Pain In Limb 04/23/2011 HAZEL GARCIA MD N 729.5 Pain In Limb 04/23/2011 HAZEL GARCIA MD N 729.5 Pain In Limb 04/23/2011 HAZEL GARCIA MD N 729.5 Pain In Limb 04/23/2011 FADUMO HICKEY DO 729.5 Pain In Limb 04/23/2011 HAZEL GARCIA MD N 729.5 Pain In Limb 04/23/2011 HAZEL GARCIA MD N 729.5 Pain In Limb 04/23/2011 729.5 Pain In Limb 04/23/2011 HAZEL GARCIA MD N 729.5 Pain In Limb 04/23/2011 FADUMO HICKEY DO K 729.5 Pain In Limb 04/25/2011 Ot 244.9 HYPOTHYROIDISM NOS 04/25/2011 Ot 272.4 HYPERLIPIDEMIA NEC/NOS 04/25/2011 Ot 311 DEPRESSIVE DISORDER NEC 04/25/2011 Ot 338.29 OTHER CHRONIC PAIN 04/25/2011 Ot 491.21 OBSTR CHRONIC BRONCHITIS, W (ACUTE) EXAC 04/25/2011 Ot 710.0 SYST LUPUS ERYTHEMATOSIS 04/25/2011 Ot 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 04/25/2011 Ot 996.74 OTH COMPL DUE TO OTH VASCULAR DEVICE,IMP 04/25/2011 Ot V12.51 HX-VENOUS THROMBOSIS EMBOLISM 04/25/2011 Ot V12.55 PERSONAL HISTORY OF PULMONARY EMBOLISM 04/26/2011 Ot 250.00 DIAB WALLY WO COMPL, TYPE II OR UNSPEC TY 04/26/2011 Ot 305.1 TOBACCO USE DISORDER 04/26/2011 Ot 491.21 OBSTR CHRONIC BRONCHITIS, W (ACUTE) EXAC 04/26/2011 Ot V12.51 HX-VENOUS THROMBOSIS EMBOLISM 04/26/2011 Ot V58.67 LONG-TERM ( 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 OF INSULIN 04/30/2011 786.07 Wheezing 04/30/2011 786.07 Wheezing 04/30/2011 HERMINIA SEGURA MD 786.07 Wheezing 04/30/2011 HERMINIA SEGURA MD 786.07 Wheezing 04/30/2011 786.07 Wheezing 04/30/2011 786.07 Wheezing 04/30/2011 786.07 Wheezing 04/30/2011 786.07 Wheezing 04/30/2011 ANDERSON SEGURA PSYD 786.07 Wheezing 04/30/2011 FADUMO HICKEY DO K 786.07 Wheezing 04/30/2011 FADUMO HICKEY DO K 786.07 Wheezing 04/30/2011 ANDERSON SEGURA PSYD 786.07 Wheezing 04/30/2011 RADHA POLLARD HAZEL N 786.07 Wheezing 04/30/2011 RADHA POLLARD HAZEL N 786.07 Wheezing 04/30/2011 RADHA POLLARD HAZEL N 786.07 Wheezing 04/30/2011 JUSTICE TRIPATHI APRN 786.07 Wheezing 04/30/2011 RADHA POLLARD HAZEL N 786.07 Wheezing 04/30/2011 RADHA POLLARD HAZEL N 786.07 Wheezing 04/30/2011 RADHA POLLARD HAZEL N 786.07 Wheezing 04/30/2011 RADHA POLLARD HAZEL N 786.07 Wheezing 04/30/2011 786.07 Wheezing 04/30/2011 RADHA POLLARD HAZEL N 786.07 Wheezing 04/30/2011 RADHA POLLARD HAZEL N 786.07 Wheezing 04/30/2011 RADHA POLLARD HAZEL N 786.07 Wheezing 04/30/2011 RADHA POLLARD HAZEL N 786.07 Wheezing 04/30/2011 FADUMO HICKEY DO 786.07 Wheezing 04/30/2011 RADHA POLLARD HAZEL N 786.07 Wheezing 04/30/2011 RADHA POLLARD HAZEL N 786.07 Wheezing 04/30/2011 786.07 Wheezing 04/30/2011 RADHA POLLARD HAZEL N 786.07 Wheezing 04/30/2011 FADUMO HICKEY DO K 786.07 Wheezing 05/03/2011 Ot 305.1 TOBACCO USE DISORDER 05/03/2011 Ot 496 CHR AIRWAY OBSTRUCT NEC 05/03/2011 Ot 786.05 SHORTNESS OF BREATH 05/03/2011 Ot V58.69 OTH MED,LT, CURRENT USE 05/03/2011 Ot 250.02 DIAB WALLY WO COMPL, TYPE II OR UNSPEC TY 05/03/2011 Ot 272.4 HYPERLIPIDEMIA NEC/NOS 05/03/2011 Ot 311 DEPRESSIVE DISORDER NEC 05/03/2011 Ot 401.9 HYPERTENSION NOS 05/03/2011 Ot 491.21 OBSTR CHRONIC BRONCHITIS, W (ACUTE) EXAC 05/03/2011 Ot 710.0 SYST LUPUS ERYTHEMATOSIS 05/03/2011 Ot V12.51 HX-VENOUS THROMBOSIS EMBOLISM 05/05/2011 Ot 459.81 VENOUS INSUFFICIENCY NOS 05/05/2011 Ot V74.8 SCREEN- BACTERIAL DIS NEC 05/08/2011 Ot 289.81 PRIMARY HYPERCOAGULABLE STATE 05/08/2011 Ot 451.9 THROMBOPHLEBITIS NOS 05/08/2011 Ot 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 05/12/2011 250.02 Diabetes Ii Uncontrolled (uncomplicated) 05/12/2011 300.00 ANXIETY UNSPEC 05/12/2011 786.05 Shortness Of Breath 05/12/2011 250.02 Diabetes Ii Uncontrolled (uncomplicated) 05/12/2011 300.00 ANXIETY UNSPEC 05/12/2011 786.05 Shortness Of Breath 05/12/2011 HERMINIA SEGURA MD 250.02 Diabetes Ii Uncontrolled (uncomplicated) 05/12/2011 HERMINIA SEGURA MD 300.00 ANXIETY UNSPEC 05/12/2011 HERMINIA SEGURA MD 786.05 Shortness Of Breath 05/12/2011 HERMINIA SEGURA MD 250.02 Diabetes Ii Uncontrolled (uncomplicated) 05/12/2011 HERMINIA SEGURA MD 300.00 ANXIETY UNSPEC 05/12/2011 HERMINIA SEGURA MD 786.05 Shortness Of Breath 05/12/2011 250.02 Diabetes Ii Uncontrolled (uncomplicated) 05/12/2011 300.00 ANXIETY UNSPEC 05/12/2011 786.05 Shortness Of Breath 05/12/2011 250.02 Diabetes Ii Uncontrolled (uncomplicated) 05/12/2011 300.00 ANXIETY UNSPEC 05/12/2011 786.05 Shortness Of Breath 05/12/2011 250.02 Diabetes Ii Uncontrolled (uncomplicated) 05/12/2011 300.00 ANXIETY UNSPEC 05/12/2011 786.05 Shortness Of Breath 05/12/2011 250.02 Diabetes Ii Uncontrolled (uncomplicated) 05/12/2011 300.00 ANXIETY UNSPEC 05/12/2011 786.05 Shortness Of Breath 05/12/2011 ANDERSON SEGURA PSYD 250.02 Diabetes Ii Uncontrolled (uncomplicated) 05/12/2011 ANDERSON SEGURA PSYD L 300.00 ANXIETY UNSPEC 05/12/2011 ANDERSON SEGURA PSYD 786.05 Shortness Of Breath 05/12/2011 HICKEY DO FADUMO K 250.02 Diabetes Ii Uncontrolled (uncomplicated) 05/12/2011 HICKEY DO, FADUMO K 300.00 ANXIETY UNSPEC 05/12/2011 HICKEY DO, FADUMO K 786.05 Shortness Of Breath 05/12/2011 HICKEY DO, FADUMO K 250.02 Diabetes Ii Uncontrolled (uncomplicated) 05/12/2011 HICKEY DO, FADUMO K 300.00 ANXIETY UNSPEC 05/12/2011 HICKEY DO, FADUMO K 786.05 Shortness Of Breath 05/12/2011 ANDERSON SEGURA PSYD 250.02 Diabetes Ii Uncontrolled (uncomplicated) 05/12/2011 ANDERSON SEGURA PSYD 300.00 ANXIETY UNSPEC 05/12/2011 ANDERSON SEGURA PSYD 786.05 Shortness Of Breath 05/12/2011 HAZEL GARCIA MD 250.02 Diabetes Ii Uncontrolled (uncomplicated) 05/12/2011 HAZEL GARCIA MD 300.00 ANXIETY UNSPEC 05/12/2011 HAZEL GARCIA MD 786.05 Shortness Of Breath 05/12/2011 HAZEL GARCIA MD 250.02 Diabetes Ii Uncontrolled (uncomplicated) 05/12/2011 HAZEL GARCIA MD 300.00 ANXIETY UNSPEC 05/12/2011 HAZEL GARCIA MD 786.05 Shortness Of Breath 05/12/2011 HAZEL GARCIA MD 250.02 Diabetes Ii Uncontrolled (uncomplicated) 05/12/2011 HAZEL GARCIA MD 300.00 ANXIETY UNSPEC 05/12/2011 HAZEL GARCIA MD 786.05 Shortness Of Breath 05/12/2011 JUSTICE TRIPATHI APRN 250.02 Diabetes Ii Uncontrolled (uncomplicated) 05/12/2011 JUSTICE TRIPATHI APRN 300.00 ANXIETY UNSPEC 05/12/2011 JUSTICE TRIPATHI APRN 786.05 Shortness Of Breath 05/12/2011 HAZEL GARCIA MD N 250.02 Diabetes Ii Uncontrolled (uncomplicated) 05/12/2011 HAZEL GARCIA MD N 300.00 ANXIETY UNSPEC 05/12/2011 HAZEL GARCIA MD N 786.05 Shortness Of Breath 05/12/2011 HAZEL GARCIA MD N 250.02 Diabetes Ii Uncontrolled (uncomplicated) 05/12/2011 HAZEL GARCIA MD N 300.00 ANXIETY UNSPEC 05/12/2011 HAZEL GARCIA MD N 786.05 Shortness Of Breath 05/12/2011 HAZEL GARCIA MD N 250.02 Diabetes Ii Uncontrolled (uncomplicated) 05/12/2011 HAZEL GARCIA MD N 300.00 ANXIETY UNSPEC 05/12/2011 HAZEL GARCIA MD N 786.05 Shortness Of Breath 05/12/2011 HAZEL GARCIA MD N 250.02 Diabetes Ii Uncontrolled (uncomplicated) 05/12/2011 HAZEL GARCIA MD N 300.00 ANXIETY UNSPEC 05/12/2011 HAZEL GARCIA MD N 786.05 Shortness Of Breath 05/12/2011 250.02 Diabetes Ii Uncontrolled (uncomplicated) 05/12/2011 300.00 ANXIETY UNSPEC 05/12/2011 786.05 Shortness Of Breath 05/12/2011 HAZEL GARCIA MD N 250.02 Diabetes Ii Uncontrolled (uncomplicated) 05/12/2011 HAZEL GARCIA MD N 300.00 ANXIETY UNSPEC 05/12/2011 HAZEL GARCIA MD N 786.05 Shortness Of Breath 05/12/2011 HAZEL GARCIA MD N 250.02 Diabetes Ii Uncontrolled (uncomplicated) 05/12/2011 HAZEL GARCIA MD N 300.00 ANXIETY UNSPEC 05/12/2011 HAZEL GARCIA MD N 786.05 Shortness Of Breath 05/12/2011 HAZEL GARCIA MD N 250.02 Diabetes Ii Uncontrolled (uncomplicated) 05/12/2011 HAZEL GARCIA MD N 300.00 ANXIETY UNSPEC 05/12/2011 HAZEL GARCIA MD N 786.05 Shortness Of Breath 05/12/2011 HAZEL GARCIA MD N 250.02 Diabetes Ii Uncontrolled (uncomplicated) 05/12/2011 HAZEL GARCIA MD N 300.00 ANXIETY UNSPEC 05/12/2011 HAZEL GARCIA MD N 786.05 Shortness Of Breath 05/12/2011 FAHEEM HICKEY DOA K 250.02 Diabetes Ii Uncontrolled (uncomplicated) 05/12/2011 RUPERTO BOWIE FADUMO K 300.00 ANXIETY UNSPEC 05/12/2011 RUPERTO BOWIE FADUMO K 786.05 Shortness Of Breath 05/12/2011 HAZEL GARCIA MD N 250.02 Diabetes Ii Uncontrolled (uncomplicated) 05/12/2011 HAZEL GARCIA MD N 300.00 ANXIETY UNSPEC 05/12/2011 HAZEL GARCIA MD N 786.05 Shortness Of Breath 05/12/2011 HAZEL GARCIA MD N 250.02 Diabetes Ii Uncontrolled (uncomplicated) 05/12/2011 HAZEL GARCIA MD N 300.00 ANXIETY UNSPEC 05/12/2011 HAZEL GARCIA MD N 786.05 Shortness Of Breath 05/12/2011 250.02 Diabetes Ii Uncontrolled (uncomplicated) 05/12/2011 300.00 ANXIETY UNSPEC 05/12/2011 786.05 Shortness Of Breath 05/12/2011 HAZEL GARCIA MD N 250.02 Diabetes Ii Uncontrolled (uncomplicated) 05/12/2011 HAZEL GARCIA MD N 300.00 ANXIETY UNSPEC 05/12/2011 HAZEL GARCIA MD N 786.05 Shortness Of Breath 05/12/2011 FADUMO HICKEY DO K 250.02 Diabetes Ii Uncontrolled (uncomplicated) 05/12/2011 FADUMO HICKEY DO K 300.00 ANXIETY UNSPEC 05/12/2011 FAHEEM HICKEY DOA K 786.05 Shortness Of Breath 05/13/2011 311 DEPRESSIVE DISORDER NOT ELSEWHERE CLASSIFIED 05/13/2011 311 DEPRESSIVE DISORDER NOT ELSEWHERE CLASSIFIED 05/13/2011 HERMINIA SEGURA MD 311 DEPRESSIVE DISORDER NOT ELSEWHERE CLASSIFIED 05/13/2011 HERMINIA SEGURA MD 311 DEPRESSIVE DISORDER NOT ELSEWHERE CLASSIFIED 05/13/2011 311 DEPRESSIVE DISORDER NOT ELSEWHERE CLASSIFIED 05/13/2011 311 DEPRESSIVE DISORDER NOT ELSEWHERE CLASSIFIED 05/13/2011 311 DEPRESSIVE DISORDER NOT ELSEWHERE CLASSIFIED 05/13/2011 311 DEPRESSIVE DISORDER NOT ELSEWHERE CLASSIFIED 05/13/2011 ANDERSON SEGURA PSYD 311 DEPRESSIVE DISORDER NOT ELSEWHERE CLASSIFIED 05/13/2011 FADUMO HICKEY DO 311 DEPRESSIVE DISORDER NOT ELSEWHERE CLASSIFIED 05/13/2011 FADUMO HICKEY DO 311 DEPRESSIVE DISORDER NOT ELSEWHERE CLASSIFIED 05/13/2011 ANDERSON SEGURA PSYD 311 DEPRESSIVE DISORDER NOT ELSEWHERE CLASSIFIED 05/13/2011 HAZEL GARCIA MD 311 DEPRESSIVE DISORDER NOT ELSEWHERE CLASSIFIED 05/13/2011 HAZEL GARCIA MD 311 DEPRESSIVE DISORDER NOT ELSEWHERE CLASSIFIED 05/13/2011 HAZEL GARCIA MD 311 DEPRESSIVE DISORDER NOT ELSEWHERE CLASSIFIED 05/13/2011 DEUCE MAILK JUSTICE Radha 311 DEPRESSIVE DISORDER NOT ELSEWHERE CLASSIFIED 05/13/2011 HAZEL GARCIA MD 311 DEPRESSIVE DISORDER NOT ELSEWHERE CLASSIFIED 05/13/2011 HAZEL GARCIA MD 311 DEPRESSIVE DISORDER NOT ELSEWHERE CLASSIFIED 05/13/2011 HAZEL GARCIA MD 311 DEPRESSIVE DISORDER NOT ELSEWHERE CLASSIFIED 05/13/2011 HAZEL GARCIA MD 311 DEPRESSIVE DISORDER NOT ELSEWHERE CLASSIFIED 05/13/2011 311 DEPRESSIVE DISORDER NOT ELSEWHERE CLASSIFIED 05/13/2011 HAZEL GARCIA MD 311 DEPRESSIVE DISORDER NOT ELSEWHERE CLASSIFIED 05/13/2011 HAZEL GARCIA MD 311 DEPRESSIVE DISORDER NOT ELSEWHERE CLASSIFIED 05/13/2011 HAZEL GARCIA MD 311 DEPRESSIVE DISORDER NOT ELSEWHERE CLASSIFIED 05/13/2011 HAZEL GARCIA MD 311 DEPRESSIVE DISORDER NOT ELSEWHERE CLASSIFIED 05/13/2011 FADUMO HICKEY DO 311 DEPRESSIVE DISORDER NOT ELSEWHERE CLASSIFIED 05/13/2011 HAZEL GARCIA MD 311 DEPRESSIVE DISORDER NOT ELSEWHERE CLASSIFIED 05/13/2011 HAZEL GARCIA MD 311 DEPRESSIVE DISORDER NOT ELSEWHERE CLASSIFIED 05/13/2011 311 DEPRESSIVE DISORDER NOT ELSEWHERE CLASSIFIED 05/13/2011 HAZEL GARCIA MD 311 DEPRESSIVE DISORDER NOT ELSEWHERE CLASSIFIED 05/13/2011 FADUMO HICKEY DO 311 DEPRESSIVE DISORDER NOT ELSEWHERE CLASSIFIED 05/17/2011 Ot 244.9 HYPOTHYROIDISM NOS 05/17/2011 Ot 272.4 HYPERLIPIDEMIA NEC/NOS 05/17/2011 Ot 286.9 COAGULAT DEFECT NEC/NOS 05/17/2011 Ot 311 DEPRESSIVE DISORDER NEC 05/17/2011 Ot 338.29 OTHER CHRONIC PAIN 05/17/2011 Ot 401.9 HYPERTENSION NOS 05/17/2011 Ot 453.6 VENOUS EMBOLISM THROMBOSIS OF SUPERFIC 05/17/2011 Ot 493.20 CHRONIC OBSTRUCTIVE ASTHMA, NOS 05/17/2011 Ot 710.0 SYST LUPUS ERYTHEMATOSIS 05/17/2011 Ot 799.02 HYPOXEMIA 08/17/2011 Ot 789.00 ABDOMINAL PAIN, UNSPECIFIED SITE 08/19/2011 466.0 Acute Bronchitis 08/19/2011 466.0 Acute Bronchitis 08/19/2011 HERMINIA SEGURA MD 466.0 Acute Bronchitis 08/19/2011 HERMINIA SEGURA MD 466.0 Acute Bronchitis 08/19/2011 466.0 Acute Bronchitis 08/19/2011 466.0 Acute Bronchitis 08/19/2011 466.0 Acute Bronchitis 08/19/2011 466.0 Acute Bronchitis 08/19/2011 ANDERSON SEGURA PSYD 466.0 Acute Bronchitis 08/19/2011 FADUMO HICKEY DO K 466.0 Acute Bronchitis 08/19/2011 FADUMO HICKEY DO K 466.0 Acute Bronchitis 08/19/2011 ANDERSON SEGURA PSYD 466.0 Acute Bronchitis 08/19/2011 HAZEL GARCIA MD 466.0 Acute Bronchitis 08/19/2011 HAZEL GARCIA MD 466.0 Acute Bronchitis 08/19/2011 HAZEL GARCIA MD 466.0 Acute Bronchitis 08/19/2011 JUSTICE TRIPATHI APRN 466.0 Acute Bronchitis 08/19/2011 HAZEL GARCIA MD 466.0 Acute Bronchitis 08/19/2011 HAZEL GARCIA MD 466.0 Acute Bronchitis 08/19/2011 HAZEL GARCIA MD 466.0 Acute Bronchitis 08/19/2011 HAZEL GARCIA MD 466.0 Acute Bronchitis 08/19/2011 466.0 Acute Bronchitis 08/19/2011 HAZEL GARCIA MD 466.0 Acute Bronchitis 08/19/2011 HAZEL GARCIA MD 466.0 Acute Bronchitis 08/19/2011 HAZEL GARCIA MD N 466.0 Acute Bronchitis 08/19/2011 HAZEL GARCIA MD N 466.0 Acute Bronchitis 08/19/2011 FADUMO HICKEY DO K 466.0 Acute Bronchitis 08/19/2011 HAZEL GARCIA MD N 466.0 Acute Bronchitis 08/19/2011 HAZEL GARCIA MD N 466.0 Acute Bronchitis 08/19/2011 466.0 Acute Bronchitis 08/19/2011 HAZEL GARCIA MD N 466.0 Acute Bronchitis 08/19/2011 FADUMO HICKEY DO K 466.0 Acute Bronchitis 08/29/2011 Ot 491.21 OBSTR CHRONIC BRONCHITIS, W (ACUTE) EXAC 08/29/2011 Ot 786.50 CHEST PAIN NOS 08/29/2011 Ot V58.69 OTH MED,LT, CURRENT USE 09/17/2011 Ot 244.9 HYPOTHYROIDISM NOS 09/17/2011 Ot 250.00 DIAB WALLY WO COMPL, TYPE II OR UNSPEC TY 09/17/2011 Ot 276.7 HYPERPOTASSEMIA 09/17/2011 Ot 285.9 ANEMIA NOS 09/17/2011 Ot 311 DEPRESSIVE DISORDER NEC 09/17/2011 Ot 338.29 OTHER CHRONIC PAIN 09/17/2011 Ot 401.9 HYPERTENSION NOS 09/17/2011 Ot 443.9 PERIPH VASCULAR DIS NOS 09/17/2011 Ot 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 09/17/2011 Ot 491.21 OBSTR CHRONIC BRONCHITIS, W (ACUTE) EXAC 09/17/2011 Ot 493.90 ASTHMA, UNSPECIFIED 09/17/2011 Ot 518.84 ACUTE AND CHRONIC RESPIRATORY FAILURE 09/17/2011 Ot 584.9 ACUTE RENAL FAILURE, UNSPECIFIED 09/17/2011 Ot 710.0 SYST LUPUS ERYTHEMATOSIS 09/17/2011 Ot E939.6 ADV EFF HALLUCINOGENS 09/17/2011 Ot V45.89 POSTSURGICAL STATES NEC 09/17/2011 Ot V55.8 ATTN TO ARTIF OPEN NEC 01/27/2012 Ot 710.0 SYST LUPUS ERYTHEMATOSIS 01/27/2012 Ot V58.81 FIT/ADJ VASCULAR CATHETER 02/01/2012 250.00 DIABETES MELLITUS WITHOUT MENTION OF COMPLICATION TYPE II OR UNSPECIFIED TYPE NOT STATED UNCONTROLLED 02/01/2012 V04.81 FLU DX ( MEDICARE ONLY) 02/01/2012 250.00 DIABETES MELLITUS WITHOUT MENTION OF COMPLICATION TYPE II OR UNSPECIFIED TYPE NOT STATED UNCONTROLLED 02/01/2012 V04.81 FLU DX ( MEDICARE ONLY) 02/01/2012 HERMINIA SEGURA MD 250.00 DIABETES MELLITUS WITHOUT MENTION OF COMPLICATION TYPE II OR UNSPECIFIED TYPE NOT STATED UNCONTROLLED 02/01/2012 HERMINIA SEGURA MD V04.81 FLU DX (MEDICARE ONLY) 02/01/2012 HERMINIA SEGURA MD 250.00 DIABETES MELLITUS WITHOUT MENTION OF COMPLICATION TYPE II OR UNSPECIFIED TYPE NOT STATED UNCONTROLLED 02/01/2012 HERMINIA SEGURA MD V04.81 FLU DX (MEDICARE ONLY) 02/01/2012 250.00 DIABETES MELLITUS WITHOUT MENTION OF COMPLICATION TYPE II OR UNSPECIFIED TYPE NOT STATED UNCONTROLLED 02/01/2012 V04.81 FLU DX ( MEDICARE ONLY) 02/01/2012 250.00 DIABETES MELLITUS WITHOUT MENTION OF COMPLICATION TYPE II OR UNSPECIFIED TYPE NOT STATED UNCONTROLLED 02/01/2012 V04.81 FLU DX ( MEDICARE ONLY) 02/01/2012 250.00 DIABETES MELLITUS WITHOUT MENTION OF COMPLICATION TYPE II OR UNSPECIFIED TYPE NOT STATED UNCONTROLLED 02/01/2012 V04.81 FLU DX ( MEDICARE ONLY) 02/01/2012 250.00 DIABETES MELLITUS WITHOUT MENTION OF COMPLICATION TYPE II OR UNSPECIFIED TYPE NOT STATED UNCONTROLLED 02/01/2012 V04.81 FLU DX ( MEDICARE ONLY) 02/01/2012 ANDERSON SEGURA PSYD L 250.00 DIABETES MELLITUS WITHOUT MENTION OF COMPLICATION TYPE II OR UNSPECIFIED TYPE NOT STATED UNCONTROLLED 02/01/2012 ANDERSON SEGURA PSYD L V04.81 FLU DX (MEDICARE ONLY) 02/01/2012 HICKEY DO FADUMO K 250.00 DIABETES MELLITUS WITHOUT MENTION OF COMPLICATION TYPE II OR UNSPECIFIED TYPE NOT STATED UNCONTROLLED 02/01/2012 HICKEY DO FADUMO K V04.81 FLU DX (MEDICARE ONLY) 02/01/2012 HICKEY DO FADUMO K 250.00 DIABETES MELLITUS WITHOUT MENTION OF COMPLICATION TYPE II OR UNSPECIFIED TYPE NOT STATED UNCONTROLLED 02/01/2012 HICKEY DO, FADUMO K V04.81 FLU DX (MEDICARE ONLY) 02/01/2012 ANDERSON SEGURA PSYD 250.00 DIABETES MELLITUS WITHOUT MENTION OF COMPLICATION TYPE II OR UNSPECIFIED TYPE NOT STATED UNCONTROLLED 02/01/2012 ANDERSON SEGURA PSYD V04.81 FLU DX (MEDICARE ONLY) 02/01/2012 HAZEL GARCIA MD 250.00 DIABETES MELLITUS WITHOUT MENTION OF COMPLICATION TYPE II OR UNSPECIFIED TYPE NOT STATED UNCONTROLLED 02/01/2012 HAZEL GARCIA MD V04.81 FLU DX (MEDICARE ONLY) 02/01/2012 HAZEL GARCIA MD 250.00 DIABETES MELLITUS WITHOUT MENTION OF COMPLICATION TYPE II OR UNSPECIFIED TYPE NOT STATED UNCONTROLLED 02/01/2012 HAZEL GARCIA MD V04.81 FLU DX (MEDICARE ONLY) 02/01/2012 HAZEL GARCIA MD 250.00 DIABETES MELLITUS WITHOUT MENTION OF COMPLICATION TYPE II OR UNSPECIFIED TYPE NOT STATED UNCONTROLLED 02/01/2012 HAZEL GARCIA MD V04.81 FLU DX (MEDICARE ONLY) 02/01/2012 JUSTICE TRIPATHI APRN A 250.00 DIABETES MELLITUS WITHOUT MENTION OF COMPLICATION TYPE II OR UNSPECIFIED TYPE NOT STATED UNCONTROLLED 02/01/2012 JUSTICE TRIPATHI APRN A V04.81 FLU DX (MEDICARE ONLY) 02/01/2012 HAZEL GARCIA MD 250.00 DIABETES MELLITUS WITHOUT MENTION OF COMPLICATION TYPE II OR UNSPECIFIED TYPE NOT STATED UNCONTROLLED 02/01/2012 HAZEL GARCIA MD V04.81 FLU DX (MEDICARE ONLY) 02/01/2012 HAZEL GARCIA MD N 250.00 DIABETES MELLITUS WITHOUT MENTION OF COMPLICATION TYPE II OR UNSPECIFIED TYPE NOT STATED UNCONTROLLED 02/01/2012 HAZEL GARCIA MD V04.81 FLU DX (MEDICARE ONLY) 02/01/2012 HAZEL GARCIA MD 250.00 DIABETES MELLITUS WITHOUT MENTION OF COMPLICATION TYPE II OR UNSPECIFIED TYPE NOT STATED UNCONTROLLED 02/01/2012 HAZEL GARCIA MD V04.81 FLU DX (MEDICARE ONLY) 02/01/2012 HAZEL GARCIA MD N 250.00 DIABETES MELLITUS WITHOUT MENTION OF COMPLICATION TYPE II OR UNSPECIFIED TYPE NOT STATED UNCONTROLLED 02/01/2012 HAZEL GARCIA MD V04.81 FLU DX (MEDICARE ONLY) 02/01/2012 250.00 DIABETES MELLITUS WITHOUT MENTION OF COMPLICATION TYPE II OR UNSPECIFIED TYPE NOT STATED UNCONTROLLED 02/01/2012 V04.81 FLU DX ( MEDICARE ONLY) 02/01/2012 HAZEL GARCIA MD 250.00 DIABETES MELLITUS WITHOUT MENTION OF COMPLICATION TYPE II OR UNSPECIFIED TYPE NOT STATED UNCONTROLLED 02/01/2012 HAZEL GARCIA MD V04.81 FLU DX (MEDICARE ONLY) 02/01/2012 HAZEL GARCIA MD 250.00 DIABETES MELLITUS WITHOUT MENTION OF COMPLICATION TYPE II OR UNSPECIFIED TYPE NOT STATED UNCONTROLLED 02/01/2012 HAZEL GARCIA MD V04.81 FLU DX (MEDICARE ONLY) 02/01/2012 HAZEL GARCIA MD N 250.00 DIABETES MELLITUS WITHOUT MENTION OF COMPLICATION TYPE II OR UNSPECIFIED TYPE NOT STATED UNCONTROLLED 02/01/2012 HAZEL GARCIA MD V04.81 FLU DX (MEDICARE ONLY) 02/01/2012 HAZEL GARCIA MD 250.00 DIABETES MELLITUS WITHOUT MENTION OF COMPLICATION TYPE II OR UNSPECIFIED TYPE NOT STATED UNCONTROLLED 02/01/2012 HAZEL GARCIA MD V04.81 FLU DX (MEDICARE ONLY) 02/01/2012 FADUMO HICKEY DO 250.00 DIABETES MELLITUS WITHOUT MENTION OF COMPLICATION TYPE II OR UNSPECIFIED TYPE NOT STATED UNCONTROLLED 02/01/2012 FADUMO HICKEY DO V04.81 FLU DX (MEDICARE ONLY) 02/01/2012 HAZEL GARCIA MD 250.00 DIABETES MELLITUS WITHOUT MENTION OF COMPLICATION TYPE II OR UNSPECIFIED TYPE NOT STATED UNCONTROLLED 02/01/2012 HAZEL GARCIA MD V04.81 FLU DX (MEDICARE ONLY) 02/01/2012 HAZEL GARCIA MD 250.00 DIABETES MELLITUS WITHOUT MENTION OF COMPLICATION TYPE II OR UNSPECIFIED TYPE NOT STATED UNCONTROLLED 02/01/2012 HAZEL GARCIA MD V04.81 FLU DX (MEDICARE ONLY) 02/01/2012 250.00 DIABETES MELLITUS WITHOUT MENTION OF COMPLICATION TYPE II OR UNSPECIFIED TYPE NOT STATED UNCONTROLLED 02/01/2012 V04.81 FLU DX ( MEDICARE ONLY) 02/01/2012 HAZEL GARCIA MD 250.00 DIABETES MELLITUS WITHOUT MENTION OF COMPLICATION TYPE II OR UNSPECIFIED TYPE NOT STATED UNCONTROLLED 02/01/2012 HAZEL GARCIA MD V04.81 FLU DX (MEDICARE ONLY) 02/01/2012 FADUMO HICKEY DO 250.00 DIABETES MELLITUS WITHOUT MENTION OF COMPLICATION TYPE II OR UNSPECIFIED TYPE NOT STATED UNCONTROLLED 02/01/2012 FADUMO HICKEY DO V04.81 FLU DX (MEDICARE ONLY) 03/24/2012 Ot 244.9 HYPOTHYROIDISM NOS 03/24/2012 Ot 250.02 DIAB WALLY WO COMPL, TYPE II OR UNSPEC TY 03/24/2012 Ot 272.4 HYPERLIPIDEMIA NEC/NOS 03/24/2012 Ot 311 DEPRESSIVE DISORDER NEC 03/24/2012 Ot 459.81 VENOUS INSUFFICIENCY NOS 03/24/2012 Ot 491.21 OBSTR CHRONIC BRONCHITIS, W (ACUTE) EXAC 03/24/2012 Ot 710.0 SYST LUPUS ERYTHEMATOSIS 03/24/2012 Ot 724.5 BACKACHE NOS 03/24/2012 Ot 780.52 INSOMNIA, UNSPECIFIED 03/24/2012 Ot 788.20 RETENTION OF URINE NOS 03/24/2012 Ot V12.51 HX-VENOUS THROMBOSIS EMBOLISM 03/24/2012 Ot V58.67 LONG-TERM ( 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 OF INSULIN 04/04/2012 Ot 244.9 HYPOTHYROIDISM NOS 04/04/2012 Ot 250.00 DIAB WALLY WO COMPL, TYPE II OR UNSPEC TY 04/04/2012 Ot 272.4 HYPERLIPIDEMIA NEC/NOS 04/04/2012 Ot 289.81 PRIMARY HYPERCOAGULABLE STATE 04/04/2012 Ot 300.00 ANXIETY STATE NOS 04/04/2012 Ot 305.1 TOBACCO USE DISORDER 04/04/2012 Ot 311 DEPRESSIVE DISORDER NEC 04/04/2012 Ot 338.4 CHRONIC PAIN SYNDROME 04/04/2012 Ot 401.9 HYPERTENSION NOS 04/04/2012 Ot 459.81 VENOUS INSUFFICIENCY NOS 04/04/2012 Ot 491.21 OBSTR CHRONIC BRONCHITIS, W (ACUTE) EXAC 04/04/2012 Ot 710.0 SYST LUPUS ERYTHEMATOSIS 04/04/2012 Ot 780.57 UNSPECIFIED SLEEP APNEA 04/04/2012 Ot V12.51 HX-VENOUS THROMBOSIS EMBOLISM 04/21/2012 Ot 250.00 DIAB WALLY WO COMPL, TYPE II OR UNSPEC TY 04/21/2012 Ot 996.74 OTH COMPL DUE TO OTH VASCULAR DEVICE,IMP 07/18/2012 Ot 244.9 HYPOTHYROIDISM NOS 07/18/2012 Ot 250.00 DIAB WALLY WO COMPL, TYPE II OR UNSPEC TY 07/18/2012 Ot 272.4 HYPERLIPIDEMIA NEC/NOS 07/18/2012 Ot 285.9 ANEMIA NOS 07/18/2012 Ot 300.00 ANXIETY STATE NOS 07/18/2012 Ot 304.00 OPIOID DEPENDENCE-UNSPEC 07/18/2012 Ot 311 DEPRESSIVE DISORDER NEC 07/18/2012 Ot 327.23 OBSTRUCTIVE SLEEP APNEA (ADULT) (PEDIATR 07/18/2012 Ot 338.29 OTHER CHRONIC PAIN 07/18/2012 Ot 401.9 HYPERTENSION NOS 07/18/2012 Ot 453.6 VENOUS EMBOLISM THROMBOSIS OF SUPERFIC 07/18/2012 Ot 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 07/18/2012 Ot 491.21 OBSTR CHRONIC BRONCHITIS, W (ACUTE) EXAC 07/18/2012 Ot 511.0 PLEURISY W/O EFFUS OR TB 07/18/2012 Ot 710.0 SYST LUPUS ERYTHEMATOSIS 07/18/2012 Ot V58.67 LONG-TERM ( 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 OF INSULIN 10/26/2012 599.0 URINARY TRACT INFECTION SITE NOT SPECIFIED 10/26/2012 599.0 URINARY TRACT INFECTION SITE NOT SPECIFIED 10/26/2012 ANDERSON SEGURA PSYD 599.0 URINARY TRACT INFECTION SITE NOT SPECIFIED 10/26/2012 FADUMO HICKEY DO K 599.0 URINARY TRACT INFECTION SITE NOT SPECIFIED 10/26/2012 FADUMO HICKEY DO K 599.0 URINARY TRACT INFECTION SITE NOT SPECIFIED 10/26/2012 ANDERSON SEGURA PSYD L 599.0 URINARY TRACT INFECTION SITE NOT SPECIFIED 10/26/2012 HAZEL GARCIA MD N 599.0 URINARY TRACT INFECTION SITE NOT SPECIFIED 10/26/2012 HAZEL GARCIA MD N 599.0 URINARY TRACT INFECTION SITE NOT SPECIFIED 10/26/2012 HAZEL GARCIA MD N 599.0 URINARY TRACT INFECTION SITE NOT SPECIFIED 10/26/2012 JUSTICE TRIPATHI APRN 599.0 URINARY TRACT INFECTION SITE NOT SPECIFIED 10/26/2012 HAZEL GARCIA MD N 599.0 URINARY TRACT INFECTION SITE NOT SPECIFIED 10/26/2012 HAZEL GARCIA MD N 599.0 URINARY TRACT INFECTION SITE NOT SPECIFIED 10/26/2012 HAZEL GARCIA MD N 599.0 URINARY TRACT INFECTION SITE NOT SPECIFIED 10/26/2012 HAZEL GARCIA MD N 599.0 URINARY TRACT INFECTION SITE NOT SPECIFIED 10/26/2012 599.0 URINARY TRACT INFECTION SITE NOT SPECIFIED 10/26/2012 HAZEL GARCIA MD N 599.0 URINARY TRACT INFECTION SITE NOT SPECIFIED 10/26/2012 HAZEL GARCIA MD N 599.0 URINARY TRACT INFECTION SITE NOT SPECIFIED 10/26/2012 HAZEL GARCIA MD N 599.0 URINARY TRACT INFECTION SITE NOT SPECIFIED 10/26/2012 HAZEL GARCIA MD N 599.0 URINARY TRACT INFECTION SITE NOT SPECIFIED 10/26/2012 FADUMO HICKEY DO K 599.0 URINARY TRACT INFECTION SITE NOT SPECIFIED 10/26/2012 HAZEL GARCIA MD N 599.0 URINARY TRACT INFECTION SITE NOT SPECIFIED 10/26/2012 HAZEL GARCIA MD N 599.0 URINARY TRACT INFECTION SITE NOT SPECIFIED 10/26/2012 HAZEL GARCIA MD N 599.0 URINARY TRACT INFECTION SITE NOT SPECIFIED 10/26/2012 FAHEEM HICKEY DOA K 599.0 URINARY TRACT INFECTION SITE NOT SPECIFIED 11/13/2012 296.32 MO DEPRESSIVE RECURRENT MODERATE 11/13/2012 296.32 MO DEPRESSIVE RECURRENT MODERATE 11/13/2012 ANDERSON SEGURA PSYD 296.32 MO DEPRESSIVE RECURRENT MODERATE 11/13/2012 HICKEY DO FADUMO K 296.32 MO DEPRESSIVE RECURRENT MODERATE 11/13/2012 HICKEY DO FADUMO K 296.32 MO DEPRESSIVE RECURRENT MODERATE 11/13/2012 ANDERSON SEGURA PSYD 296.32 MO DEPRESSIVE RECURRENT MODERATE 11/13/2012 HAZEL GARCIA MD N 296.32 MO DEPRESSIVE RECURRENT MODERATE 11/13/2012 HAZEL GARCIA MD 296.32 MO DEPRESSIVE RECURRENT MODERATE 11/13/2012 HAZEL GARCIA MD N 296.32 MO DEPRESSIVE RECURRENT MODERATE 11/13/2012 JUSTICE TRIPATHI APRN 296.32 MO DEPRESSIVE RECURRENT MODERATE 11/13/2012 HAZEL GARCIA MD N 296.32 MO DEPRESSIVE RECURRENT MODERATE 11/13/2012 HAZEL GARCIA MD N 296.32 MO DEPRESSIVE RECURRENT MODERATE 11/13/2012 HAZEL GARCIA MD N 296.32 MO DEPRESSIVE RECURRENT MODERATE 11/13/2012 HAZEL GARCIA MD N 296.32 MO DEPRESSIVE RECURRENT MODERATE 11/13/2012 296.32 MO DEPRESSIVE RECURRENT MODERATE 11/13/2012 HAZEL GARCIA MD N 296.32 MO DEPRESSIVE RECURRENT MODERATE 11/13/2012 HAZEL GARCIA MD N 296.32 MO DEPRESSIVE RECURRENT MODERATE 11/13/2012 HAZEL GARCIA MD N 296.32 MO DEPRESSIVE RECURRENT MODERATE 11/13/2012 HAZEL GARCIA MD N 296.32 MO DEPRESSIVE RECURRENT MODERATE 11/13/2012 FAHEEM HICKEY DOA K 296.32 MO DEPRESSIVE RECURRENT MODERATE 11/13/2012 HAZEL GARCIA MD N 296.32 MO DEPRESSIVE RECURRENT MODERATE 11/13/2012 HAZEL GARCIA MD N 296.32 MO DEPRESSIVE RECURRENT MODERATE 11/13/2012 HAZEL GARCIA MD N 296.32 MO DEPRESSIVE RECURRENT MODERATE 11/13/2012 HICKEY DO FADUMO K 296.32 MO DEPRESSIVE RECURRENT MODERATE 11/14/2012 728.85 SPASM OF MUSCLE 11/14/2012 728.85 SPASM OF MUSCLE 11/14/2012 ANDERSON SEGURA PSYD 728.85 SPASM OF MUSCLE 11/14/2012 FADUMO HICKEY DO K 728.85 SPASM OF MUSCLE 11/14/2012 FADUMO HICKEY DO 728.85 SPASM OF MUSCLE 11/14/2012 ANDERSON SEGURA PSYD 728.85 SPASM OF MUSCLE 11/14/2012 HAZEL GARCIA MD N 728.85 SPASM OF MUSCLE 11/14/2012 HAZEL GARCIA MD N 728.85 SPASM OF MUSCLE 11/14/2012 HAZEL GARCIA MD N 728.85 SPASM OF MUSCLE 11/14/2012 JUSTICE TRIPATHI APRN 728.85 SPASM OF MUSCLE 11/14/2012 HAZEL GARCIA MD N 728.85 SPASM OF MUSCLE 11/14/2012 HAZEL GARCIA MD N 728.85 SPASM OF MUSCLE 11/14/2012 HAZEL GARCIA MD N 728.85 SPASM OF MUSCLE 11/14/2012 HAZEL GARCIA MD N 728.85 SPASM OF MUSCLE 11/14/2012 728.85 SPASM OF MUSCLE 11/14/2012 HAZEL GARCIA MD N 728.85 SPASM OF MUSCLE 11/14/2012 HAZEL GARCIA MD N 728.85 SPASM OF MUSCLE 11/14/2012 HAZEL GARCIA MD N 728.85 SPASM OF MUSCLE 11/14/2012 HAZEL GARCIA MD N 728.85 SPASM OF MUSCLE 11/14/2012 FADUMO HICKEY DO 728.85 SPASM OF MUSCLE 11/14/2012 HAZEL GARCIA MD N 728.85 SPASM OF MUSCLE 11/14/2012 HAZEL GARCIA MD N 728.85 SPASM OF MUSCLE 11/14/2012 HAZEL GARCIA MD N 728.85 SPASM OF MUSCLE 11/14/2012 FADUMO HICKEY DO 728.85 SPASM OF MUSCLE 11/14/2012 JENNY MARIE MD Ot 724.5 BACKACHE NOS 11/14/2012 JENNY MARIE MD Ot 847.1 SPRAIN THORACIC REGION 11/14/2012 JENNY MARIE MD Ot E927.9 UNSP OVEREXERTION STRENUOUS REPETITI 11/23/2012 MONICA POLLARD, MAI S Ot 214.1 LIPOMA SKIN NEC 12/09/2012 789.01 ABDOMINAL PAIN RIGHT UPPER QUADRANT 12/09/2012 ANDERSON SEGURA PSYD 789.01 ABDOMINAL PAIN RIGHT UPPER QUADRANT 12/09/2012 FADUMO HICKEY DO K 789.01 ABDOMINAL PAIN RIGHT UPPER QUADRANT 12/09/2012 RUPERTO BOWIE FADUMO K 789.01 ABDOMINAL PAIN RIGHT UPPER QUADRANT 12/09/2012 ANDERSON SEGURA PSYD 789.01 ABDOMINAL PAIN RIGHT UPPER QUADRANT 12/09/2012 HAZEL GARCIA MD N 789.01 ABDOMINAL PAIN RIGHT UPPER QUADRANT 12/09/2012 HAZEL GARCIA MD N 789.01 ABDOMINAL PAIN RIGHT UPPER QUADRANT 12/09/2012 HAZEL GARCIA MD N 789.01 ABDOMINAL PAIN RIGHT UPPER QUADRANT 12/09/2012 JUSTICE TRIPATHI APRN 789.01 ABDOMINAL PAIN RIGHT UPPER QUADRANT 12/09/2012 HAZEL GARCIA MD N 789.01 ABDOMINAL PAIN RIGHT UPPER QUADRANT 12/09/2012 HAZEL GARCIA MD N 789.01 ABDOMINAL PAIN RIGHT UPPER QUADRANT 12/09/2012 HAZEL GARCIA MD N 789.01 ABDOMINAL PAIN RIGHT UPPER QUADRANT 12/09/2012 HAZEL GARCIA MD N 789.01 ABDOMINAL PAIN RIGHT UPPER QUADRANT 12/09/2012 789.01 ABDOMINAL PAIN RIGHT UPPER QUADRANT 12/09/2012 HAZEL GARCIA MD N 789.01 ABDOMINAL PAIN RIGHT UPPER QUADRANT 12/09/2012 HAZEL GARCIA MD N 789.01 ABDOMINAL PAIN RIGHT UPPER QUADRANT 12/09/2012 HAZEL GARCIA MD N 789.01 ABDOMINAL PAIN RIGHT UPPER QUADRANT 12/09/2012 HAZEL GARCIA MD N 789.01 ABDOMINAL PAIN RIGHT UPPER QUADRANT 12/09/2012 FADUMO HICKEY DO K 789.01 ABDOMINAL PAIN RIGHT UPPER QUADRANT 12/09/2012 HAZEL GARCIA MD N 789.01 ABDOMINAL PAIN RIGHT UPPER QUADRANT 12/09/2012 HAZEL GARCIA MD N 789.01 ABDOMINAL PAIN RIGHT UPPER QUADRANT 12/09/2012 HAZEL GARCIA MD N 789.01 ABDOMINAL PAIN RIGHT UPPER QUADRANT 12/09/2012 FADUMO HICKEY DO K 789.01 ABDOMINAL PAIN RIGHT UPPER QUADRANT 02/06/2013 RUPERTO FAHEEM BOWIEA K 786.09 RESPIRATORY ABNORMALITY OTHER 02/06/2013 HICKEY FADUMO BOWIE K 786.09 RESPIRATORY ABNORMALITY OTHER 02/06/2013 ANDERSON SEGURA PSYD 786.09 RESPIRATORY ABNORMALITY OTHER 02/06/2013 HAZEL GARCIA MD N 786.09 RESPIRATORY ABNORMALITY OTHER 02/06/2013 HAZEL GARCIA MD N 786.09 RESPIRATORY ABNORMALITY OTHER 02/06/2013 HAZEL GARCIA MD N 786.09 RESPIRATORY ABNORMALITY OTHER 02/06/2013 DEUCEJUSTICE Fleming APRN 786.09 RESPIRATORY ABNORMALITY OTHER 02/06/2013 HAZEL GARCIA MD N 786.09 RESPIRATORY ABNORMALITY OTHER 02/06/2013 HAZEL GARCIA MD N 786.09 RESPIRATORY ABNORMALITY OTHER 02/06/2013 HAZEL GARCIA MD N 786.09 RESPIRATORY ABNORMALITY OTHER 02/06/2013 HAZEL GARCIA MD N 786.09 RESPIRATORY ABNORMALITY OTHER 02/06/2013 786.09 RESPIRATORY ABNORMALITY OTHER 02/06/2013 HAZEL GARCIA MD N 786.09 RESPIRATORY ABNORMALITY OTHER 02/06/2013 HAZEL GARCIA MD N 786.09 RESPIRATORY ABNORMALITY OTHER 02/06/2013 HAZEL GARCIA MD N 786.09 RESPIRATORY ABNORMALITY OTHER 02/06/2013 HAZEL GARCIA MD N 786.09 RESPIRATORY ABNORMALITY OTHER 02/06/2013 FADUMO HICKEY DO 786.09 RESPIRATORY ABNORMALITY OTHER 02/06/2013 HAZEL GARCIA MD N 786.09 RESPIRATORY ABNORMALITY OTHER 02/06/2013 HAZEL GARCIA MD N 786.09 RESPIRATORY ABNORMALITY OTHER 02/06/2013 HAZEL GARCIA MD N 786.09 RESPIRATORY ABNORMALITY OTHER 02/06/2013 FADUMO HICKEY DO 786.09 RESPIRATORY ABNORMALITY OTHER 04/11/2013 MONICO VALLE MD Ot 244.9 HYPOTHYROIDISM NOS 04/11/2013 MONICO VALLE MD Ot 250.00 DIAB WALLY WO COMPL, TYPE II OR UNSPEC TY 04/11/2013 MONICO VALLE MD Ot 305.1 TOBACCO USE DISORDER 04/11/2013 MONICO VALLE MD Ot 311 DEPRESSIVE DISORDER NEC 04/11/2013 MONICO VALLE MD Ot 327.23 OBSTRUCTIVE SLEEP APNEA (ADULT) (PEDIATR 04/11/2013 MONICO VALLE MD Ot 401.9 HYPERTENSION NOS 04/11/2013 MONICO VALLE MD Ot 416.2 CHRONIC PULMONARY EMBOLISM 04/11/2013 MONICO VALLE MD Ot 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 04/11/2013 MONICO VALLE MD Ot 496 CHR AIRWAY OBSTRUCT NEC 04/11/2013 MONICO VALLE MD Ot 710.0 SYST LUPUS ERYTHEMATOSIS 04/11/2013 MONICO VALLE MD Ot V58.61 ANTICOAGULANTS,LT,CURRENT USE 04/11/2013 MONICO VALLE MD Ot V58.69 OTH MED,LT,CURRENT USE 05/01/2013 HAZEL GARCIA MD 338.4 CHRONIC PAIN SYNDROME 05/01/2013 HAZEL GARCIA MD 780.4 DIZZINESS AND GIDDINESS 05/01/2013 HAZEL GARCIA MD N 338.4 CHRONIC PAIN SYNDROME 05/01/2013 HAZEL GARCIA MD 780.4 DIZZINESS AND GIDDINESS 05/01/2013 JUSTICE TRIPATHI APRN 338.4 CHRONIC PAIN SYNDROME 05/01/2013 JUSTICE TRIPATHI APRN 780.4 DIZZINESS AND GIDDINESS 05/01/2013 HAZEL GARCIA MD N 338.4 CHRONIC PAIN SYNDROME 05/01/2013 HAZEL GARCIA MD 780.4 DIZZINESS AND GIDDINESS 05/01/2013 HAZEL GARCIA MD N 338.4 CHRONIC PAIN SYNDROME 05/01/2013 HAZEL GARCIA MD N 780.4 DIZZINESS AND GIDDINESS 05/01/2013 HAZEL GARCIA MD N 338.4 CHRONIC PAIN SYNDROME 05/01/2013 HAZEL GARCIA MD N 780.4 DIZZINESS AND GIDDINESS 05/01/2013 HAZEL GARCIA MD N 338.4 CHRONIC PAIN SYNDROME 05/01/2013 HAZEL GARCIA MD N 780.4 DIZZINESS AND GIDDINESS 05/01/2013 338.4 CHRONIC PAIN SYNDROME 05/01/2013 780.4 DIZZINESS AND GIDDINESS 05/01/2013 HAZEL GARCIA MD N 338.4 CHRONIC PAIN SYNDROME 05/01/2013 HAZEL GARCIA MD N 780.4 DIZZINESS AND GIDDINESS 05/01/2013 HAZEL GARCIA MD N 338.4 CHRONIC PAIN SYNDROME 05/01/2013 HAZEL GARCIA MD N 780.4 DIZZINESS AND GIDDINESS 05/01/2013 HAZEL GARCIA MD 338.4 CHRONIC PAIN SYNDROME 05/01/2013 HAZEL GARCIA MD 780.4 DIZZINESS AND GIDDINESS 05/01/2013 HAZEL GARCIA MD N 338.4 CHRONIC PAIN SYNDROME 05/01/2013 HAZEL GARCIA MD 780.4 DIZZINESS AND GIDDINESS 05/01/2013 FADUMO HICKEY DO K 338.4 CHRONIC PAIN SYNDROME 05/01/2013 FADUMO HICKEY DO K 780.4 DIZZINESS AND GIDDINESS 05/01/2013 HAZEL GARCIA MD 338.4 CHRONIC PAIN SYNDROME 05/01/2013 HAZEL GARCIA MD 780.4 DIZZINESS AND GIDDINESS 05/01/2013 HAZEL GARCIA MD 338.4 CHRONIC PAIN SYNDROME 05/01/2013 HAZEL GARCIA MD 780.4 DIZZINESS AND GIDDINESS 05/01/2013 HAZEL GARCIA MD 338.4 CHRONIC PAIN SYNDROME 05/01/2013 HAZEL GARCIA MD 780.4 DIZZINESS AND GIDDINESS 05/01/2013 FADUMO HICKEY DO K 338.4 CHRONIC PAIN SYNDROME 05/01/2013 FADUMO HICKEY DO K 780.4 DIZZINESS AND GIDDINESS 05/10/2013 JUSTICE TRIPATHI APRN 611.71 MASTODYNIA 05/10/2013 HAZEL GARCIA MD N 611.71 MASTODYNIA 05/10/2013 HAZEL GARCIA MD N 611.71 MASTODYNIA 05/10/2013 HAZEL GARCIA MD N 611.71 MASTODYNIA 05/10/2013 HAZEL GARCIA MD 611.71 MASTODYNIA 05/10/2013 611.71 MASTODYNIA 05/10/2013 HAZEL GARCIA MD N 611.71 MASTODYNIA 05/10/2013 HAZEL GARCIA MD 611.71 MASTODYNIA 05/10/2013 HAZEL GARCIA MD 611.71 MASTODYNIA 05/10/2013 HAZEL GARCIA MD 611.71 MASTODYNIA 05/10/2013 FADUMO HICKEY DO K 611.71 MASTODYNIA 05/10/2013 HAZEL GARCIA MD 611.71 MASTODYNIA 05/10/2013 HAZEL GARCIA MD N 611.71 MASTODYNIA 05/10/2013 HAZEL GARCIA MD N 611.71 MASTODYNIA 05/10/2013 FADUMO HICKEY DO 611.71 MASTODYNIA 06/05/2013 HAZEL GARCIA MD N 272.4 HYPERLIPIDEMIA 06/05/2013 HAZEL GARCIA MD N 459.81 VENOUS (PERIPHERAL) INSUFFICIENCY UNSPECIFIED 06/05/2013 HAZEL GARCIA MD N 709.9 UNSPECIFIED DISORDER OF SKIN AND SUBCUTANEOUS TISSUE 06/05/2013 HAZEL GARCIA MD N 791.0 PROTEINURIA 06/05/2013 HAZEL GARCIA MD N 272.4 HYPERLIPIDEMIA 06/05/2013 HAZEL GARCIA MD N 459.81 VENOUS (PERIPHERAL) INSUFFICIENCY UNSPECIFIED 06/05/2013 HAZEL GARCIA MD N 709.9 UNSPECIFIED DISORDER OF SKIN AND SUBCUTANEOUS TISSUE 06/05/2013 HAZEL GARCIA MD N 791.0 PROTEINURIA 06/05/2013 HAZEL GARCIA MD N 272.4 HYPERLIPIDEMIA 06/05/2013 HAZEL GARCIA MD N 459.81 VENOUS (PERIPHERAL) INSUFFICIENCY UNSPECIFIED 06/05/2013 HAZEL GARCIA MD N 709.9 UNSPECIFIED DISORDER OF SKIN AND SUBCUTANEOUS TISSUE 06/05/2013 HAZEL GARCIA MD N 791.0 PROTEINURIA 06/05/2013 272.4 HYPERLIPIDEMIA 06/05/2013 459.81 VENOUS ( PERIPHERAL) INSUFFICIENCY UNSPECIFIED 06/05/2013 709.9 UNSPECIFIED DISORDER OF SKIN AND SUBCUTANEOUS TISSUE 06/05/2013 791.0 PROTEINURIA 06/05/2013 HAZEL GARCIA MD N 272.4 HYPERLIPIDEMIA 06/05/2013 HAZEL GARCIA MD N 459.81 VENOUS (PERIPHERAL) INSUFFICIENCY UNSPECIFIED 06/05/2013 HAZEL GARCIA MD N 709.9 UNSPECIFIED DISORDER OF SKIN AND SUBCUTANEOUS TISSUE 06/05/2013 HAZEL GARCIA MD N 791.0 PROTEINURIA 06/05/2013 HAZEL GARCIA MD N 272.4 HYPERLIPIDEMIA 06/05/2013 HAZEL GARCIA MD N 459.81 VENOUS (PERIPHERAL) INSUFFICIENCY UNSPECIFIED 06/05/2013 HAZEL GARCIA MD N 709.9 UNSPECIFIED DISORDER OF SKIN AND SUBCUTANEOUS TISSUE 06/05/2013 HAZEL GARCIA MD N 791.0 PROTEINURIA 06/05/2013 HAZEL GARCIA MD N 272.4 HYPERLIPIDEMIA 06/05/2013 HAZEL GARCIA MD N 459.81 VENOUS (PERIPHERAL) INSUFFICIENCY UNSPECIFIED 06/05/2013 HAZEL GARCIA MD N 709.9 UNSPECIFIED DISORDER OF SKIN AND SUBCUTANEOUS TISSUE 06/05/2013 HAZEL GARCIA MD N 791.0 PROTEINURIA 06/05/2013 HAZEL GARCIA MD N 272.4 HYPERLIPIDEMIA 06/05/2013 HAZEL GARCIA MD N 459.81 VENOUS (PERIPHERAL) INSUFFICIENCY UNSPECIFIED 06/05/2013 HAZEL GARCIA MD N 709.9 UNSPECIFIED DISORDER OF SKIN AND SUBCUTANEOUS TISSUE 06/05/2013 HAZEL GARCIA MD N 791.0 PROTEINURIA 06/05/2013 FAHEEM HICKEY DOA K 272.4 HYPERLIPIDEMIA 06/05/2013 FADUMO HICKEY DO K 459.81 VENOUS (PERIPHERAL) INSUFFICIENCY UNSPECIFIED 06/05/2013 FADUMO HICKEY DO K 709.9 UNSPECIFIED DISORDER OF SKIN AND SUBCUTANEOUS TISSUE 06/05/2013 FADUMO HICKEY DO K 791.0 PROTEINURIA 06/05/2013 HAZEL GARCIA MD N 272.4 HYPERLIPIDEMIA 06/05/2013 HAZEL GARCIA MD N 459.81 VENOUS (PERIPHERAL) INSUFFICIENCY UNSPECIFIED 06/05/2013 HAZEL GARCIA MD N 709.9 UNSPECIFIED DISORDER OF SKIN AND SUBCUTANEOUS TISSUE 06/05/2013 HAZEL GARCIA MD N 791.0 PROTEINURIA 06/05/2013 HAZEL GARCIA MD N 272.4 HYPERLIPIDEMIA 06/05/2013 HAZEL GARCIA MD N 459.81 VENOUS (PERIPHERAL) INSUFFICIENCY UNSPECIFIED 06/05/2013 HAZEL GARCIA MD N 709.9 UNSPECIFIED DISORDER OF SKIN AND SUBCUTANEOUS TISSUE 06/05/2013 HAZEL GARCIA MD N 791.0 PROTEINURIA 06/05/2013 HAZEL GARCIA MD N 272.4 HYPERLIPIDEMIA 06/05/2013 HAZEL GARCIA MD N 459.81 VENOUS (PERIPHERAL) INSUFFICIENCY UNSPECIFIED 06/05/2013 HAZEL GARCIA MD N 709.9 UNSPECIFIED DISORDER OF SKIN AND SUBCUTANEOUS TISSUE 06/05/2013 HAZEL GARCIA MD 791.0 PROTEINURIA 06/05/2013 FADUMO HICKEY DO 272.4 HYPERLIPIDEMIA 06/05/2013 FADUMO HICKEY DO 459.81 VENOUS (PERIPHERAL) INSUFFICIENCY UNSPECIFIED 06/05/2013 FADUMO HICKEY DO 709.9 UNSPECIFIED DISORDER OF SKIN AND SUBCUTANEOUS TISSUE 06/05/2013 FADUMO HICKEY DO 791.0 PROTEINURIA 07/03/2013 RODNEY SHAW MD Ot 365.22 ACUTE ANGL-CLOS GLAUCOMA 07/03/2013 RODNEY SHAW MD Ot 379.91 PAIN IN OR AROUND EYE 08/05/2013 MONICO VALLE MD Ot 244.9 HYPOTHYROIDISM NOS 08/05/2013 MONICO VALLE MD Ot 250.00 DIAB WALLY WO COMPL, TYPE II OR UNSPEC TY 08/05/2013 MONICO VALLE MD Ot 305.1 TOBACCO USE DISORDER 08/05/2013 MONICO VALLE MD Ot 311 DEPRESSIVE DISORDER NEC 08/05/2013 MONICO VALLE MD Ot 327.23 OBSTRUCTIVE SLEEP APNEA (ADULT) (PEDIATR 08/05/2013 MONICO VALLE MD Ot 401.9 HYPERTENSION NOS 08/05/2013 MONICO VALLE MD Ot 496 CHR AIRWAY OBSTRUCT NEC 08/05/2013 MONICO VALLE MD Ot 710.0 SYST LUPUS ERYTHEMATOSIS 08/05/2013 MONICO VALLE MD Ot V12.3 HX-BLOOD DISEASES 08/05/2013 MONICO VALLE MD Ot V12.51 HX-VENOUS THROMBOSIS EMBOLISM 08/05/2013 MONICO VALLE MD Ot V12.55 PERSONAL HISTORY OF PULMONARY EMBOLISM 08/05/2013 MONICO VALLE MD Ot V58.61 ANTICOAGULANTS,LT,CURRENT USE 08/05/2013 MONICO VALLE MD, Ot V58.69 OTH MED,LT,CURRENT USE 10/09/2013 HAZEL GARCIA MD 354.0 CARPAL TUNNEL SYNDROME 10/09/2013 HAZEL GARCIA MD 354.0 CARPAL TUNNEL SYNDROME 10/09/2013 HAZEL GARCIA MD 354.0 CARPAL TUNNEL SYNDROME 10/09/2013 HAZEL GARICA MD 354.0 CARPAL TUNNEL SYNDROME 10/09/2013 FADUMO HICKEY DO 354.0 CARPAL TUNNEL SYNDROME 10/09/2013 HAZEL GARCIA MD 354.0 CARPAL TUNNEL SYNDROME 10/09/2013 HAZEL GARCIA MD 354.0 CARPAL TUNNEL SYNDROME 10/09/2013 HAZEL GARCIA MD 354.0 CARPAL TUNNEL SYNDROME 10/09/2013 FADUMO HICKEY DO 354.0 CARPAL TUNNEL SYNDROME 10/21/2013 PATRICE PAREDES EMPLOYEE BENEFITS COORDINATOR Ot 244.9 HYPOTHYROIDISM NOS 10/21/2013 PATRICE PAREDES EMPLOYEE BENEFITS COORDINATOR Ot 250.00 DIAB WALLY WO COMPL, TYPE II OR UNSPEC TY 10/21/2013 PATRICE PAREDES EMPLOYEE BENEFITS COORDINATOR Ot 311 DEPRESSIVE DISORDER NEC 10/21/2013 PATRICE PAREDES EMPLOYEE BENEFITS COORDINATOR Ot 369.60 BLINDNESS, ONE EYE 10/21/2013 PATRICE PAREDES APRN Ot 496 CHR AIRWAY OBSTRUCT NEC 10/21/2013 PATRICE PAREDES EMPLOYEE BENEFITS COORDINATOR Ot 710.0 SYST LUPUS ERYTHEMATOSIS 10/21/2013 PATRICE PAREDES EMPLOYEE BENEFITS COORDINATOR Ot 716.90 ARTHROPATHY NOS-UNSPEC 10/21/2013 PATRICE PAREDES EMPLOYEE BENEFITS COORDINATOR Ot 729.5 PAIN IN LIMB 10/21/2013 PATRICE PAREDES EMPLOYEE BENEFITS COORDINATOR Ot 729.81 SWELLING OF LIMB 10/21/2013 PATRICE PAREDES EMPLOYEE BENEFITS COORDINATOR Ot V58.67 LONG-TERM (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 OF INSULIN 10/21/2013 PATRICE PAREDES EMPLOYEE BENEFITS COORDINATOR Ot V58.69 OT MED,LT,CURRENT USE 12/11/2013 HAZEL GARCIA MD N 078.10 VIRAL WARTS UNSPECIFIED 12/11/2013 HAZEL GARCIA MD 782.2 LOCALIZED SUPERFICIAL SWELLING MASS OR LUMP 12/11/2013 HAZEL GARCIA MD 078.10 VIRAL WARTS UNSPECIFIED 12/11/2013 HAZEL GARCIA MD 782.2 LOCALIZED SUPERFICIAL SWELLING MASS OR LUMP 12/11/2013 FADUMO HICKEY DO 078.10 VIRAL WARTS UNSPECIFIED 12/11/2013 FADUMO HICKEY DO 782.2 LOCALIZED SUPERFICIAL SWELLING MASS OR LUMP 12/11/2013 HAZEL GARCIA MD 078.10 VIRAL WARTS UNSPECIFIED 12/11/2013 HAZEL GARCIA MD 782.2 LOCALIZED SUPERFICIAL SWELLING MASS OR LUMP 12/11/2013 HAZEL GARCIA MD 078.10 VIRAL WARTS UNSPECIFIED 12/11/2013 HAZEL GARCIA MD 782.2 LOCALIZED SUPERFICIAL SWELLING MASS OR LUMP 12/11/2013 HAZEL GARCIA MD 078.10 VIRAL WARTS UNSPECIFIED 12/11/2013 HAZEL GARCIA MD 782.2 LOCALIZED SUPERFICIAL SWELLING MASS OR LUMP 12/11/2013 FADUMO HICKEY DO 078.10 VIRAL WARTS UNSPECIFIED 12/11/2013 FADUMO HICKEY DO 782.2 LOCALIZED SUPERFICIAL SWELLING MASS OR LUMP 01/15/2014 JOSE GARZA Ot 244.9 HYPOTHYROIDISM NOS 01/15/2014 JOSE GARZA Ot 250.00 DIAB WALLY WO COMPL, TYPE II OR UNSPEC TY 01/15/2014 JOSE GARZA Ot 305.1 TOBACCO USE DISORDER 01/15/2014 JOSE GARZA Ot 311 DEPRESSIVE DISORDER NEC 01/15/2014 JOSE GARZA Ot 327.23 OBSTRUCTIVE SLEEP APNEA (ADULT) (PEDIATR 01/15/2014 JOSE GARZA Ot 401.9 HYPERTENSION NOS 01/15/2014 JOSE GARZA Ot 496 CHR AIRWAY OBSTRUCT NEC 01/15/2014 JOSE GARZA Ot 710.0 SYST LUPUS ERYTHEMATOSIS 01/15/2014 JOSE GARZA Ot V12.3 HX-BLOOD DISEASES 01/15/2014 JOSE GARZA Ot V12.51 HX-VENOUS THROMBOSIS EMBOLISM 01/15/2014 JOSE GARZA Ot V12.55 PERSONAL HISTORY OF PULMONARY EMBOLISM 01/15/2014 JOSE GARZA Ot V58.61 ANTICOAGULANTS,LT,CURRENT USE 01/15/2014 JOSE GARZA Ot V58.69 OTH MED,LT,CURRENT USE 03/15/2014 FADUMO HICKEY DO 454.1 VARICOSE VEINS OF LOWER EXTREMITIES WITH INFLAMMATION 03/15/2014 FADUMO HICKEY DO 454.9 ASYMPTOMATIC VARICOSE VEINS 03/15/2014 FADUMO HICKEY DO 724.3 SCIATICA 03/15/2014 FADUMO HICKEY DO 943.01 BURN OF UNSPECIFIED DEGREE OF FOREARM 03/15/2014 HAZEL GARCIA MD 454.1 VARICOSE VEINS OF LOWER EXTREMITIES WITH INFLAMMATION 03/15/2014 RADHA MD, HAZEL N 454.9 ASYMPTOMATIC VARICOSE VEINS 03/15/2014 HAZEL GARCIA MD N 724.3 SCIATICA 03/15/2014 HAZEL GARCIA MD N 943.01 BURN OF UNSPECIFIED DEGREE OF FOREARM 03/15/2014 HAZEL GARCIA MD N 454.1 VARICOSE VEINS OF LOWER EXTREMITIES WITH INFLAMMATION 03/15/2014 HAZEL GARCIA MD N 454.9 ASYMPTOMATIC VARICOSE VEINS 03/15/2014 HAZEL GACRIA MD N 724.3 SCIATICA 03/15/2014 HAZEL GARCIA MD N 943.01 BURN OF UNSPECIFIED DEGREE OF FOREARM 03/15/2014 HAZEL GARCIA MD N 454.1 VARICOSE VEINS OF LOWER EXTREMITIES WITH INFLAMMATION 03/15/2014 HAZEL GARCIA MD N 454.9 ASYMPTOMATIC VARICOSE VEINS 03/15/2014 HAZEL GARCIA MD N 724.3 SCIATICA 03/15/2014 HAZEL GARCIA MD N 943.01 BURN OF UNSPECIFIED DEGREE OF FOREARM 03/15/2014 RUPERTO BOWIE FADUMO K 454.1 VARICOSE VEINS OF LOWER EXTREMITIES WITH INFLAMMATION 03/15/2014 RUPERTO BOWIE FADUMO K 454.9 ASYMPTOMATIC VARICOSE VEINS 03/15/2014 RUPERTO BOWIE FADUMO K 724.3 SCIATICA 03/15/2014 RUPERTO BOWIE FADUMO K 943.01 BURN OF UNSPECIFIED DEGREE OF FOREARM 03/22/2014 RICARDO CHACKO [employer]GER [employer] GL[employer]ER Ot 280.9 03/22/2014 RICARDO CHACKO [employer]GER [employer] GLUER Ot 585.3 03/22/2014 RICARDO CHACKO [employer]ER Ot 795.79 03/22/2014 RICARDO CHACKO [employer]GER [employer] GLUER Ot V12.51 03/22/2014 RICARDO CHACKO [employer]GER [employer]UER Ot V12.55 03/22/2014 RICARDO CHACKO [employer]UER Ot V58.69 05/01/2014 JOSE GARZA N Ot 244.9 05/01/2014 KAYLAJOSE ACOSTA N Ot 250.00 05/01/2014 KAYLAJOSE ACOTSA N Ot 305.1 05/01/2014 KAYLAJOSE ACOSTA N Ot 311 05/01/2014 KAYLAJOSE ACOSTA N Ot 327.23 05/01/2014 KAYLAJOSE ACOSTA N Ot 401.9 05/01/2014 KAYLA, BOBAN N Ot 496 05/01/2014 KAYLA, BOBAN N Ot 710.0 05/01/2014 KAYLA, BOBAN N Ot V12.3 05/01/2014 KAYLA, BOBAN N Ot V12.51 05/01/2014 KAYLA, BOBAN N Ot V12.55 05/01/2014 KAYLA, BOBAN N Ot V58.61 05/01/2014 KAYLA, BOBAN N Ot V58.69 05/01/2014 KAYLA, BOBAN N Ot 244.9 05/01/2014 KAYLA, BOBAN N Ot 250.00 05/01/2014 KAYLA, BOBAN N Ot 305.1 05/01/2014 KAYLA, BOBAN N Ot 311 05/01/2014 KAYLA, BOBAN N Ot 327.23 05/01/2014 KAYLA, BOBAN N Ot 401.9 05/01/2014 KAYLA, BOBAN N Ot 496 05/01/2014 KAYLA, BOBAN N Ot 710.0 05/01/2014 KAYLA, BOBAN N Ot V12.3 05/01/2014 KAYLA, BOBAN N Ot V12.51 05/01/2014 KAYLA, BOBAN N Ot V12.55 05/01/2014 KAYLA, BOBAN N Ot V58.61 05/01/2014 KAYLA, BOBAN N Ot V58.69 05/01/2014 KAYLA, BOBAN N Ot 244.9 05/01/2014 KAYLA, BOBAN N Ot 250.00 05/01/2014 KAYLA, BOBAN N Ot 305.1 05/01/2014 KAYLA, BOBAN N Ot 311 05/01/2014 KAYLA, BOBAN N Ot 327.23 05/01/2014 KAYLA, BOBAN N Ot 401.9 05/01/2014 KAYLA, BOBAN N Ot 496 05/01/2014 KAYLA, BOBAN N Ot 710.0 05/01/2014 KAYLA, BOBAN N Ot V12.3 05/01/2014 KAYLA, BOBAN N Ot V12.51 05/01/2014 KAYLA, BOBAN N Ot V12.55 05/01/2014 KAYLA, BOBAN N Ot V58.61 05/01/2014 KAYLA, BOBAN N Ot V58.69 05/02/2014 JOSE GARZA Ot 244.9 05/02/2014 KAYLAJOSE ACOSTA Ot 250.00 05/02/2014 KAYLAJOSE ACOSTA Ot 305.1 05/02/2014 JOSE GARZA N Ot 311 05/02/2014 KAYLAJOSE ACOSTA N Ot 327.23 05/02/2014 KAYLAJOSE ACOSTA N Ot 401.9 05/02/2014 KAYLAJOSE ACOSTA N Ot 496 05/02/2014 KAYLAJOSE ACOSTA Ot 710.0 05/02/2014 KAYLAJOSE ACOSTA Ot V12.3 05/02/2014 KAYLAJOSE ACOSTA Ot V12.51 05/02/2014 JOSE GARZA Ot V12.55 05/02/2014 JOSE GARZA Ot V58.61 05/02/2014 JOSE GARZA Ot V58.69 05/16/2014 Ot 244.9 05/16/2014 Ot 249.00 05/16/2014 Ot 272.4 05/16/2014 Ot 305.1 05/16/2014 Ot 401.9 05/16/2014 Ot 453.50 05/16/2014 Ot 496 05/16/2014 Ot 710.0 05/16/2014 Ot V45.77 05/16/2014 Ot V58.63 05/16/2014 Ot V58.69 05/16/2014 Ot 289.81 05/16/2014 Ot 786.50 05/16/2014 Ot V12.51 05/16/2014 Ot 244.9 05/16/2014 Ot 249.00 05/16/2014 Ot 272.4 05/16/2014 Ot 305.1 05/16/2014 Ot 311 05/16/2014 Ot 416.2 05/16/2014 Ot 453.50 05/16/2014 Ot 496 05/16/2014 Ot 710.0 05/16/2014 Ot 780.57 05/16/2014 Ot V45.77 05/16/2014 Ot V58.63 05/16/2014 Ot V58.69 05/16/2014 Ot V12.51 05/16/2014 Ot V72.83 05/16/2014 Ot 453.50 05/16/2014 Ot 784.0 05/16/2014 Ot V64.3 05/16/2014 Ot 996.74 05/16/2014 Ot 286.9 05/16/2014 Ot V72.84 05/16/2014 Ot 453.41 05/16/2014 MONICA POLLARD, MAI S Ot 553.21 05/16/2014 MONICA POLLARD, MAI S Ot V72.84 05/16/2014 MONICA POLLARD, MAI S Ot V74.8 05/16/2014 LEONARD POLLARD, MONICO K Ot 244.9 05/16/2014 LEONARD POLLARD, MONICO Jones Ot 250.00 05/16/2014 LEONARD POLLARD, MONICO Jones Ot 305.1 05/16/2014 LEONARD POLLARD, MONICO Jones Ot 311 05/16/2014 LEONARD POLLARD, MONICO Jones Ot 327.23 05/16/2014 LEONARD POLLARD, MONICO Jones Ot 401.9 05/16/2014 LEONARD POLLARD, MONICO Jones Ot 416.2 05/16/2014 LEONARD POLLARD, MONICO Jones Ot 453.50 05/16/2014 LEONARD POLLARD, MONICO Jones Ot 496 05/16/2014 LEONARD POLLARD, MONICO Jones Ot 710.0 05/16/2014 LEONARD POLLARD, MONICO Jones Ot V58.61 05/16/2014 LEONARD POLLARD, MONICO Jones Ot V58.69 05/16/2014 QUINCY BRUNNER DOSON M Ot 285.9 05/16/2014 MYESHA BOWIE, MIKAL M Ot 305.1 05/16/2014 MYESHA BOWIE MIKAL M Ot 327.23 05/16/2014 MYESHA BOWIE, MIKAL M Ot 493.20 05/16/2014 MYESHA BOWIE MIKAL M Ot 710.0 05/16/2014 MYESHA OBWIE MIKAL M Ot 716.90 05/16/2014 QUINCY BRUNNER DOSON M Ot 786.05 05/16/2014 RADHA POLLARD, HAZEL Fleming Ot 728.85 05/16/2014 CANDE GRIFFIN MD Ot 724.2 05/16/2014 KAYLA, BOBAN N Ot 244.9 05/16/2014 KAYLA, BOBAN N Ot 250.00 05/16/2014 KAYLA, BOBAN N Ot 305.1 05/16/2014 KAYLA, BOBAN N Ot 311 05/16/2014 KAYLA, BOBAN N Ot 327.23 05/16/2014 KAYLA, BOBAN N Ot 401.9 05/16/2014 KAYLA, BOBAN N Ot 496 05/16/2014 KAYLA, BOBAN N Ot 710.0 05/16/2014 JOSE GARZA N Ot V12.3 05/16/2014 JOSE GARZA N Ot V12.51 05/16/2014 JOSE GARZA N Ot V12.55 05/16/2014 JOSE GARZA N Ot V58.61 05/16/2014 JOSE GARZA N Ot V58.69 05/16/2014 GINNA RICARDO Alexandra [employer] Ot 280.9 05/16/2014 CHACKO RICARDO Alexandra [employer] Ot 585.3 05/16/2014 GINNA RICARDO Alexandra [employer] Ot 795.79 05/16/2014 GINNA RICARDO S [employer] Ot V12.51 05/16/2014 CHACKO, RICARDO Alexandra [employer] Ot V12.55 05/16/2014 CHACKO, RICARDO Alexandra [employer] Ot V58.69 05/16/2014 JEWELS ROMANO Ot 729.5 PAIN IN LIMB 05/21/2014 Ot 244.9 05/21/2014 Ot 249.00 05/21/2014 Ot 272.4 05/21/2014 Ot 305.1 05/21/2014 Ot 401.9 05/21/2014 Ot 453.50 05/21/2014 Ot 496 05/21/2014 Ot 710.0 05/21/2014 Ot V45.77 05/21/2014 Ot V58.63 05/21/2014 Ot V58.69 05/21/2014 Ot 289.81 05/21/2014 Ot 786.50 05/21/2014 Ot V12.51 05/21/2014 Ot 244.9 05/21/2014 Ot 249.00 05/21/2014 Ot 272.4 05/21/2014 Ot 305.1 05/21/2014 Ot 311 05/21/2014 Ot 416.2 05/21/2014 Ot 453.50 05/21/2014 Ot 496 05/21/2014 Ot 710.0 05/21/2014 Ot 780.57 05/21/2014 Ot V45.77 05/21/2014 Ot V58.63 05/21/2014 Ot V58.69 05/21/2014 Ot V12.51 05/21/2014 Ot V72.83 05/21/2014 Ot 453.50 05/21/2014 Ot 784.0 05/21/2014 Ot V64.3 05/21/2014 Ot 996.74 05/21/2014 Ot 286.9 05/21/2014 Ot V72.84 05/21/2014 Ot 453.41 05/21/2014 MONICA POLLARD, MAI S Ot 553.21 05/21/2014 MONICA POLLARD, MAI S Ot V72.84 05/21/2014 MONICA POLLARD, MAI S Ot V74.8 05/21/2014 LEONARD POLLARD, MONICO K Ot 244.9 05/21/2014 LEONARD POLLARD, MONICO K Ot 250.00 05/21/2014 LEONARD POLLARD, MONICO Jones Ot 305.1 05/21/2014 LEONARD POLLARD, MONICO Jones Ot 311 05/21/2014 LEONARD POLLARD, MONICO Jones Ot 327.23 05/21/2014 LEONARD POLLARD, MONICO Jones Ot 401.9 05/21/2014 LEONARD POLLARD, MONICO Jones Ot 416.2 05/21/2014 LEONARD POLLARD, MONICO Jones Ot 453.50 05/21/2014 LEONARD POLLARD, MONICO Jones Ot 496 05/21/2014 LEONARD POLLARD, MONICO Jones Ot 710.0 05/21/2014 LEONARD POLLARD, MONICO Jones Ot V58.61 05/21/2014 LEONARD POLLARD, MONICO Jones Ot V58.69 05/21/2014 MIKAL BRUNNER DO Ot 285.9 05/21/2014 MIKAL BRUNNER DO Ot 305.1 05/21/2014 MYESHA BOWIE MIKAL M Ot 327.23 05/21/2014 MIKAL BRUNNER DO M Ot 493.20 05/21/2014 MIKAL BRUNNER DO Ot 710.0 05/21/2014 MIKAL BRUNNER DO Ot 716.90 05/21/2014 MIKAL BRUNNER DO M Ot 786.05 05/21/2014 RADHA POLLARD, HAZEL Fleming Ot 728.85 05/21/2014 CANDE GRIFFIN MD Ot 724.2 05/21/2014 KAYLA, BOBAN N Ot 244.9 05/21/2014 KAYLA, BOBAN N Ot 250.00 05/21/2014 KAYLA, BOBAN N Ot 305.1 05/21/2014 KAYLA, BOBAN N Ot 311 05/21/2014 KAYLA, BOBAN N Ot 327.23 05/21/2014 KAYLA, BOBAN N Ot 401.9 05/21/2014 KAYLA, BOBAN N Ot 496 05/21/2014 KAYLA, BOBAN N Ot 710.0 05/21/2014 KAYLA, BOBAN N Ot V12.3 05/21/2014 KAYLA, BOBAN N Ot V12.51 05/21/2014 KAYLA, BOBAN N Ot V12.55 05/21/2014 KAYLA, BOBAN N Ot V58.61 05/21/2014 KAYLA, BOBAN N Ot V58.69 05/21/2014 CHACKO HILAH S [employer] Ot 280.9 05/21/2014 CHACKO HILAH [employer] Ot 585.3 05/21/2014 CHACKO HILAH S [employer] Ot 795.79 05/21/2014 CHACKO, HILAH S [employer] Ot V12.51 05/21/2014 CHACKO, HILAH S [employer] Ot V12.55 05/21/2014 CHACKO HILAH S [employer] Ot V58.69 07/11/2014 KAYLA, BOBAN N Ot 244.9 07/11/2014 KAYLA, BOBAN N Ot 250.00 07/11/2014 KAYLA, BOBAN N Ot 305.1 07/11/2014 KAYLA, BOBAN N Ot 311 07/11/2014 KAYLA, BOBAN N Ot 327.23 07/11/2014 KAYLA, BOBAN N Ot 401.9 07/11/2014 KAYLA, BOBAN N Ot 496 07/11/2014 KAYLA, BOBAN N Ot 710.0 07/11/2014 KAYLA, BOBAN N Ot V12.3 07/11/2014 KAYLA, BOBAN N Ot V12.51 07/11/2014 KAYLA, BOBAN N Ot V12.55 07/11/2014 KAYLA, BOBAN N Ot V58.61 07/11/2014 KAYLA, BOBAN N Ot V58.69 07/11/2014 KAYLA, BOBAN N Ot 244.9 07/11/2014 KAYLA, BOBAN N Ot 250.00 07/11/2014 KAYLA, BOBAN N Ot 305.1 07/11/2014 KAYLA, BOBAN N Ot 311 07/11/2014 KAYLA, BOBAN N Ot 327.23 07/11/2014 KAYLA, BOBAN N Ot 401.9 07/11/2014 KAYLA, BOBAN N Ot 496 07/11/2014 KAYLA, BOBAN N Ot 710.0 07/11/2014 KAYLAJOSE N Ot V12.3 07/11/2014 KAYLAJOSE N Ot V12.51 07/11/2014 KAYLA BOBAN N Ot V12.55 07/11/2014 KAYLAGREYSONAN N Ot V58.61 07/11/2014 KAYLA BOBAN N Ot V58.69 07/30/2014 KAYLA BOBAN N Ot 244.9 HYPOTHYROIDISM NOS 07/30/2014 KAYLAGREYSONAN N Ot 250.00 DIAB WALLY WO COMPL, TYPE II OR UNSPEC TY 07/30/2014 KAYLA, BOBAN N Ot 305.1 TOBACCO USE DISORDER 07/30/2014 KAYLA BOBAN N Ot 311 DEPRESSIVE DISORDER NEC 07/30/2014 KAYLA, BOBAN N Ot 327.23 OBSTRUCTIVE SLEEP APNEA (ADULT) (PEDIATR 07/30/2014 KAYLAGREYSON ACOSTAAN N Ot 401.9 HYPERTENSION NOS 07/30/2014 KAYLA BOBAN N Ot 496 CHR AIRWAY OBSTRUCT NEC 07/30/2014 KAYLAJOSE ACOSTA N Ot 710.0 SYST LUPUS ERYTHEMATOSIS 07/30/2014 KAYLAJOSE ACOSTA N Ot V12.3 HX-BLOOD DISEASES 07/30/2014 KAYLA, BOBDONELL N Ot V12.51 HX-VENOUS THROMBOSIS EMBOLISM 07/30/2014 KAYLA, BOBAN N Ot V12.55 PERSONAL HISTORY OF PULMONARY EMBOLISM 07/30/2014 JOSE GARZA N Ot V58.61 ANTICOAGULANTS,LT,CURRENT USE 07/30/2014 KAYLA BOBDONELL N Ot V58.69 OTH MED,LT,CURRENT USE 07/31/2014 KAYLA BOBAN N Ot 244.9 07/31/2014 KAYLA, BOBAN N Ot 250.00 07/31/2014 KAYLA BOBAN N Ot 305.1 07/31/2014 KAYLA BOBAN N Ot 311 07/31/2014 KAYLA BOBAN N Ot 327.23 07/31/2014 KAYLA BOBAN N Ot 401.9 07/31/2014 KAYLA, BOBAN N Ot 496 07/31/2014 KAYLA BOBAN N Ot 710.0 07/31/2014 KAYLA, BOBAN N Ot V12.3 07/31/2014 KAYLA, BOBAN N Ot V12.51 07/31/2014 KAYLA, BOBAN N Ot V12.55 07/31/2014 KAYLA, BOBAN N Ot V58.61 07/31/2014 KAYLA, BOBAN N Ot V58.69 08/01/2014 KAYLA, BOBAN N Ot 244.9 08/01/2014 KAYLA, BOBAN N Ot 250.00 08/01/2014 KAYLA, BOBAN N Ot 305.1 08/01/2014 KAYLA, BOBAN N Ot 311 08/01/2014 KAYLA, BOBAN N Ot 327.23 08/01/2014 KAYLA, BOBAN N Ot 401.9 08/01/2014 KAYLA, BOBAN N Ot 496 08/01/2014 KAYLA, BOBAN N Ot 710.0 08/01/2014 KAYLA, BOBAN N Ot V12.3 08/01/2014 KAYLA, BOBAN N Ot V12.51 08/01/2014 KAYLA, BOBAN N Ot V12.55 08/01/2014 KAYLA, BOBAN N Ot V58.61 08/01/2014 KAYLA, BOBAN N Ot V58.69 08/02/2014 KAYLA, BOBAN N Ot 244.9 08/02/2014 KAYLA, BOBAN N Ot 250.00 08/02/2014 KAYLA, BOBAN N Ot 305.1 08/02/2014 KAYLA, BOBAN N Ot 311 08/02/2014 KAYLA, BOBAN N Ot 327.23 08/02/2014 KAYLA, BOBAN N Ot 401.9 08/02/2014 KAYLA, BOBAN N Ot 496 08/02/2014 KAYLA, BOBAN N Ot 710.0 08/02/2014 KAYLA, BOBAN N Ot V12.3 08/02/2014 KAYLA, BOBAN N Ot V12.51 08/02/2014 KAYLA, BOBAN N Ot V12.55 08/02/2014 KAYLA, BOBAN N Ot V58.61 08/02/2014 KAYLA, BOBAN N Ot V58.69 08/13/2014 COLTON POLLARD, HERMINIA Guzman Ot 244.9 HYPOTHYROIDISM NOS 08/13/2014 COLTON POLLARD, HERMINIA Guzman Ot 250.00 DIAB WALLY WO COMPL, TYPE II OR UNSPEC TY 08/13/2014 HERMINIA SEGURA MD Ot 272.4 HYPERLIPIDEMIA NEC/NOS 08/13/2014 HERMINIA SEGURA MD Ot 275.2 DIS MAGNESIUM METABOLISM 08/13/2014 HERMINIA SEGURA MD Ot 327.23 OBSTRUCTIVE SLEEP APNEA (ADULT) (PEDIATR 08/13/2014 HERMINIA SEGURA MD Ot 401.9 HYPERTENSION NOS 08/13/2014 HERMINIA SEGURA MD Ot 491.21 OBSTR CHRONIC BRONCHITIS, W (ACUTE) EXAC 08/13/2014 HERMINIA SEGURA MD Ot 787.01 NAUSEA WITH VOMITING 08/13/2014 HERMINIA SEGURA MD Ot 789.00 ABDOMINAL PAIN, UNSPECIFIED SITE 08/13/2014 HERMINIA SEGURA MD Ot V58.69 OTH MED,LT,CURRENT USE 08/14/2014 RADHA POLLARD, HAZEL Fleming Ot 599.0 08/21/2014 RADHA POLLARD, HAZEL N Ot 790.5 09/06/2014 RADHA POLLARD, HAZEL N Ot 790.5 09/25/2014 RADHA POLLARD, HAZEL N Ot 599.0 09/27/2014 KAYLA, BOBAN N Ot 244.9 09/27/2014 KAYLA, BOBAN N Ot 250.00 09/27/2014 KAYLA, BOBAN N Ot 305.1 09/27/2014 KAYLA, BOBAN N Ot 311 09/27/2014 KAYLA, BOBAN N Ot 327.23 09/27/2014 KAYLA, BOBAN N Ot 401.9 09/27/2014 KAYLA, BOBAN N Ot 496 09/27/2014 KAYLA, BOBAN N Ot 710.0 09/27/2014 KAYLA, BOBAN N Ot V12.3 09/27/2014 KAYLA, BOBAN N Ot V12.51 09/27/2014 KAYLA, BOBAN N Ot V12.55 09/27/2014 KAYLA, BOBAN N Ot V58.61 09/27/2014 KAYLA, BOBAN N Ot V58.69 09/27/2014 MONICA POLLARD, MAI Alexandra Ot 285.9 09/30/2014 KAYLA, BOBAN N Ot 244.9 09/30/2014 KAYLA, BOBAN N Ot 250.00 09/30/2014 KAYLA, BOBAN N Ot 305.1 09/30/2014 KAYLA, BOBAN N Ot 311 09/30/2014 KAYLA, BOBAN N Ot 327.23 09/30/2014 KAYLA, BOBAN N Ot 401.9 09/30/2014 KAYLA, BOBAN N Ot 496 09/30/2014 KAYLA, BOBAN N Ot 710.0 09/30/2014 KAYLAJOSE N Ot V12.3 09/30/2014 KAYLA BOBDONELL N Ot V12.51 09/30/2014 KAYLA, BOBAN N Ot V12.55 09/30/2014 KAYLA, BOBAN N Ot V58.61 09/30/2014 KAYLA, BOBAN N Ot V58.69 09/30/2014 MONICA POLLARD, MAI Alexandra Ot 285.9 10/30/2014 KAYLA BOBDONELL N Ot 244.9 HYPOTHYROIDISM NOS 10/30/2014 KAYLA BOBAN N Ot 250.00 DIAB WALLY WO COMPL, TYPE II OR UNSPEC TY 10/30/2014 KAYLA, BOBAN N Ot 305.1 TOBACCO USE DISORDER 10/30/2014 KAYLA, BOBAN N Ot 311 DEPRESSIVE DISORDER NEC 10/30/2014 KAYLA, BOBAN N Ot 327.23 OBSTRUCTIVE SLEEP APNEA (ADULT) (PEDIATR 10/30/2014 KAYLA BOBAN N Ot 401.9 HYPERTENSION NOS 10/30/2014 KAYLA BOBAN N Ot 496 CHR AIRWAY OBSTRUCT NEC 10/30/2014 KAYLA BOBAN N Ot 710.0 SYST LUPUS ERYTHEMATOSIS 10/30/2014 KAYLAJOSE ACOSTA N Ot V12.3 HX-BLOOD DISEASES 10/30/2014 KAYLA BOBAN N Ot V12.51 HX-VENOUS THROMBOSIS EMBOLISM 10/30/2014 KAYLA BOBAN N Ot V12.55 PERSONAL HISTORY OF PULMONARY EMBOLISM 10/30/2014 KAYLAJOSE ACOSTA N Ot V58.61 ANTICOAGULANTS,LT,CURRENT USE 10/30/2014 KAYLA BOBDONELL N Ot V58.69 OTH MED,LT,CURRENT USE 03/31/2015 Ot 244.9 03/31/2015 Ot 249.00 03/31/2015 Ot 272.4 03/31/2015 Ot 305.1 03/31/2015 Ot 401.9 03/31/2015 Ot 453.50 03/31/2015 Ot 496 03/31/2015 Ot 710.0 03/31/2015 Ot V45.77 03/31/2015 Ot V58.63 03/31/2015 Ot V58.69 03/31/2015 Ot 289.81 03/31/2015 Ot 786.50 03/31/2015 Ot V12.51 03/31/2015 Ot 244.9 03/31/2015 Ot 249.00 03/31/2015 Ot 272.4 03/31/2015 Ot 305.1 03/31/2015 Ot 311 03/31/2015 Ot 416.2 03/31/2015 Ot 453.50 03/31/2015 Ot 496 03/31/2015 Ot 710.0 03/31/2015 Ot 780.57 03/31/2015 Ot V45.77 03/31/2015 Ot V58.63 03/31/2015 Ot V58.69 03/31/2015 Ot V12.51 03/31/2015 Ot V72.83 03/31/2015 Ot 453.50 03/31/2015 Ot 784.0 03/31/2015 Ot V64.3 03/31/2015 Ot 996.74 03/31/2015 Ot 286.9 03/31/2015 Ot V72.84 03/31/2015 Ot 453.41 03/31/2015 MONICA POLLARD, MAI S Ot 553.21 03/31/2015 MONICA POLLARD, MAI S Ot V72.84 03/31/2015 MONICA POLLARD, MAI S Ot V74.8 03/31/2015 LEONARD POLLARD, MONICO Jones Ot 244.9 03/31/2015 LEONARD POLLARD, MONICO Jones Ot 250.00 03/31/2015 LEONARD POLLARD, MONICO Jones Ot 305.1 03/31/2015 LEONARD POLLARD, MONICO Jones Ot 311 03/31/2015 LEONARD POLLARD, MONICO Jones Ot 327.23 03/31/2015 LEONARD POLLARD, MONICO Jones Ot 401.9 03/31/2015 LEONARD POLLARD, MONICO Jones Ot 416.2 03/31/2015 LEONARD POLLARD, MONICO Jones Ot 453.50 03/31/2015 LEONARD POLLARD, MONICO Jones Ot 496 03/31/2015 LEONARD POLLARD, MONICO Jones Ot 710.0 03/31/2015 LEONARD POLLARD, MONICO Jones Ot V58.61 03/31/2015 LEONARD POLLARD, MONICO Jones Ot V58.69 03/31/2015 MIKAL BRUNNER DO Ot 285.9 03/31/2015 MIKAL BRUNNER DO Ot 305.1 03/31/2015 MIKAL BRUNNER DO Ot 327.23 03/31/2015 MIKAL BRUNNER DO Ot 493.20 03/31/2015 MIKAL BRUNNER DO Ot 710.0 03/31/2015 MIKAL BRUNNER DO Ot 716.90 03/31/2015 MIKAL BRUNNER DO Ot 786.05 03/31/2015 RADHA POLLARD, HAZEL N Ot 728.85 03/31/2015 GABY POLLARD, CANDE Gibbs Ot 724.2 03/31/2015 RICARDO CHACKO S [employer]ER Ot 280.9 03/31/2015 RICARDO CHACKO S [employer]ER Ot 585.3 03/31/2015 RICARDO CHACKO S [employer] Ot 795.79 03/31/2015 RICARDO CHACKO S [employer]ER Ot V12.51 03/31/2015 RICARDO CHACKO S [employer]UER Ot V12.55 03/31/2015 RICARDO CHACKO S [employer]ER Ot V58.69 03/31/2015 RADHA POLLARD, HAZEL N Ot 790.5 03/31/2015 RADHA POLLARD, HAZEL N Ot 599.0 03/31/2015 MONICA POLLARD, MAI Alexandra Ot 285.9 03/31/2015 KAYLA, BOBAN N Ot 244.9 03/31/2015 KAYLA, BOBAN N Ot 250.00 03/31/2015 KAYLA, BOBAN N Ot 305.1 03/31/2015 KAYLA, BOBAN N Ot 311 03/31/2015 KAYLA, BOBAN N Ot 327.23 03/31/2015 KAYLA, BOBAN N Ot 401.9 03/31/2015 KAYLA, BOBAN N Ot 496 03/31/2015 KAYLA, BOBAN N Ot 710.0 03/31/2015 KAYLA, BOBAN N Ot V12.3 03/31/2015 KAYLA, BOBAN N Ot V12.51 03/31/2015 KAYLA, BOBAN N Ot V12.55 03/31/2015 KAYLA, BOBAN N Ot V58.61 03/31/2015 KAYLA, BOBAN N Ot V58.69 04/23/2015 PORTERDANIEL WARD DO Ot M51.37 05/02/2015 DANIEL PORTER DO Ot M51.37 05/02/2015 DANIEL PORTER DO Ot M51.37 05/28/2015 KAYLA, BOBAN N Ot 244.9 05/28/2015 KAYLA, BOBAN N Ot 250.00 05/28/2015 KAYLA, BOBAN N Ot 305.1 05/28/2015 KAYLA, BOBAN N Ot 311 05/28/2015 KAYLA, BOBAN N Ot 327.23 05/28/2015 KAYLA, BOBAN N Ot 401.9 05/28/2015 KAYLA, BOBAN N Ot 496 05/28/2015 KAYLA, BOBAN N Ot 710.0 05/28/2015 KAYLA, BOBAN N Ot V12.3 05/28/2015 KAYLA, BOBAN N Ot V12.51 05/28/2015 KAYLA, BOBAN N Ot V12.55 05/28/2015 KAYLA, BOBAN N Ot V58.61 05/28/2015 KAYLA, BOBAN N Ot V58.69 06/02/2015 DANIEL PORTER DO Ot M51.37 06/27/2015 RICARDO CHACKO [employer] Ot E03.9 06/27/2015 RICARDO CHACKO [employer] Ot E11.9 06/27/2015 RICARDO CHACKO [employer] Ot F17.200 06/27/2015 RICARDO CHACKO [employer] Ot F32.9 06/27/2015 RICARDO CHACKO [employer] Ot G47.33 06/27/2015 RICARDO CHACKO [employer] Ot I10 06/27/2015 RICARDO CHACKO [employer] Ot J44.9 06/27/2015 RICARDO CHACKO [employer] Ot M32.10 06/27/2015 RICARDO CHACKO [employer] Ot Z79.01 06/27/2015 RICARDO CHACKO [employer] Ot Z86.2 06/27/2015 RICARDO CHACKO [employer] Ot Z86.711 06/27/2015 RICARDO CHACKO [employer] Ot Z86.718 07/03/2015 Ot 244.9 07/03/2015 Ot 249.00 07/03/2015 Ot 272.4 07/03/2015 Ot 305.1 07/03/2015 Ot 401.9 07/03/2015 Ot 453.50 07/03/2015 Ot 496 07/03/2015 Ot 710.0 07/03/2015 Ot V45.77 07/03/2015 Ot V58.63 07/03/2015 Ot V58.69 07/03/2015 Ot 289.81 07/03/2015 Ot 786.50 07/03/2015 Ot V12.51 07/03/2015 Ot 244.9 07/03/2015 Ot 249.00 07/03/2015 Ot 272.4 07/03/2015 Ot 305.1 07/03/2015 Ot 311 07/03/2015 Ot 416.2 07/03/2015 Ot 453.50 07/03/2015 Ot 496 07/03/2015 Ot 710.0 07/03/2015 Ot 780.57 07/03/2015 Ot V45.77 07/03/2015 Ot V58.63 07/03/2015 Ot V58.69 07/03/2015 Ot V12.51 07/03/2015 Ot V72.83 07/03/2015 Ot 453.50 07/03/2015 Ot 784.0 07/03/2015 Ot V64.3 07/03/2015 Ot 996.74 07/03/2015 Ot 286.9 07/03/2015 Ot V72.84 07/03/2015 Ot 453.41 07/03/2015 MONICA POLLARD, MAI S Ot 553.21 07/03/2015 MONICA POLLARD, MAI S Ot V72.84 07/03/2015 MONICA POLLARD, MAI S Ot V74.8 07/03/2015 LEONARD POLLARD, MONICO Jones Ot 244.9 07/03/2015 LEONARD POLLARD, MONICO Jones Ot 250.00 07/03/2015 LEONARD POLLARD, MONICO Jones Ot 305.1 07/03/2015 LEONARD POLLARD, MONICO Robert Ot 311 07/03/2015 LEONARD POLLARD, MONICO Robert Ot 327.23 07/03/2015 LEONARD POLLARD, MONICO Jones Ot 401.9 07/03/2015 LEONARD POLLARD, MONICO Jones Ot 416.2 07/03/2015 LEONARD POLLARD, MONICO Robert Ot 453.50 07/03/2015 LEONARD POLLARD, MONICO Robert Ot 496 07/03/2015 LEONARD POLLARD, MONICO Jones Ot 710.0 07/03/2015 LEONARD POLLARD, MONICO Jones Ot V58.61 07/03/2015 LEONARD POLLARD, MONICO Jones Ot V58.69 07/03/2015 MIKAL BRUNNER DO Ot 285.9 07/03/2015 MIKAL BRUNNER DO Ot 305.1 07/03/2015 MIKAL BRUNNER DO Ot 327.23 07/03/2015 MIKAL BRUNNER DO Ot 493.20 07/03/2015 MIKAL BRUNNER DO Ot 710.0 07/03/2015 MIKAL BRUNNER DO Ot 716.90 07/03/2015 MIKAL BRUNNER DO Ot 786.05 07/03/2015 RADHA POLLARD, HAZEL N Ot 728.85 07/03/2015 GABY POLLARD, CANDE Gibbs Ot 724.2 07/03/2015 RICARDO CHACKO [employer] Ot 280.9 07/03/2015 RICARDO CHACKO S [employer] Ot 585.3 07/03/2015 RICARDO CHACKO S [employer] Ot 795.79 07/03/2015 RICARDO CHACKO S [employer] Ot V12.51 07/03/2015 CHACKORICARDO Alexandra S [employer] Ot V12.55 07/03/2015 RICARDO CHACKO S [employer] Ot V58.69 07/03/2015 RADHA POLLARD, HAZEL N Ot 790.5 07/03/2015 RADHA POLLARD, HAZEL N Ot 599.0 07/03/2015 MONICA POLLARD, MAI S Ot 285.9 07/03/2015 KAYLAGREYSONAN N Ot E03.9 07/03/2015 KAYLA, BOBAN N Ot E11.9 07/03/2015 KAYLA, BOBAN N Ot F17.200 07/03/2015 KAYLA, BOBAN N Ot F32.9 07/03/2015 KAYLA, BOBAN N Ot G47.33 07/03/2015 KAYLA, BOBAN N Ot I10 07/03/2015 KAYLA, BOBAN N Ot J44.9 07/03/2015 KAYLA, BOBAN N Ot M32.10 07/03/2015 KAYLA, BOBAN N Ot Z79.01 07/03/2015 KAYLA, BOBAN N Ot Z86.2 07/03/2015 KAYLA, BOBAN N Ot Z86.711 07/03/2015 JOSE GARZA N Ot Z86.718 07/03/2015 DANIEL PORTER DO Ot M51.37 07/03/2015 GINNARICARDO S [employer]ER Ot E03.9 07/03/2015 CHACKORICARDO S [employer]ER Ot E11.9 07/03/2015 GINNA RICARDO S [employer] Ot F17.200 07/03/2015 GINNA RICARDO S [employer] Ot F32.9 07/03/2015 GINNA RICARDO S [employer]ER Ot G47.33 07/03/2015 GINNA RICARDO S [employer]GER [employer]UER Ot I10 07/03/2015 GINNA RICARDO S [employer]UER Ot J44.9 07/03/2015 GINNA RICARDO S [employer]UER Ot M32.10 07/03/2015 GINNA RICARDO S [employer]UER Ot Z79.01 07/03/2015 GINNA RICARDO S [employer]UER Ot Z86.2 07/03/2015 GINNA RICARDO S [employer]GER [employer] GLUER Ot Z86.711 07/03/2015 GINNA RICARDO S [employer]UER Ot Z86.718 07/03/2015 MILEY SANCHEZ [employer] Ot M46.04 07/04/2015 MILEY SANCHEZ [employer]ER Ot M46.04 07/04/2015 GINNA RICARDO S [employer]UER Ot E03.9 07/04/2015 GINNA RICARDO S [employer]UER Ot E11.9 07/04/2015 GINNA RICARDO S [employer]ER Ot F17.200 07/04/2015 GINNA RICARDO S [employer]UER Ot F32.9 07/04/2015 GINNA RICARDO S [employer]UER Ot G47.33 07/04/2015 GINNA RICARDO S [employer] GLUER Ot I10 07/04/2015 GINNA RICARDO S [employer]UER Ot J44.9 07/04/2015 GINNA RICARDO S [employer]UER Ot M32.10 07/04/2015 GINNA RICARDO S [employer]UER Ot Z79.01 07/04/2015 GINNA RICARDO S [employer]UER Ot Z86.2 07/04/2015 GINNA RICARDO S [employer]UER Ot Z86.711 07/04/2015 GINNA HILAH S [employer] Ot Z86.718 07/14/2015 JOSE GARZA Ot E03.9 07/14/2015 KAYLAJOSE ACOSTA N Ot E11.9 07/14/2015 JOSE GARZA N Ot F17.200 07/14/2015 KAYLAJOSE ACOSTA N Ot F32.9 07/14/2015 KAYLAJOSE ACOSTA Ot G47.33 07/14/2015 KAYLAJOSE ACOSTA N Ot I10 07/14/2015 KAYLAJOSE ACOSTA N Ot J44.9 07/14/2015 KAYLAJOSE ACOSTA N Ot M32.10 07/14/2015 KAYLAJOSE ACOSTA Ot Z79.01 07/14/2015 JOSE GARZA Ot Z86.2 07/14/2015 JOSE GARZA Ot Z86.711 07/14/2015 JOSE GARZA Ot Z86.718 07/15/2015 Ot 244.9 07/15/2015 Ot 249.00 07/15/2015 Ot 272.4 07/15/2015 Ot 305.1 07/15/2015 Ot 401.9 07/15/2015 Ot 453.50 07/15/2015 Ot 496 07/15/2015 Ot 710.0 07/15/2015 Ot V45.77 07/15/2015 Ot V58.63 07/15/2015 Ot V58.69 07/15/2015 Ot 289.81 07/15/2015 Ot 786.50 07/15/2015 Ot V12.51 07/15/2015 Ot 244.9 07/15/2015 Ot 249.00 07/15/2015 Ot 272.4 07/15/2015 Ot 305.1 07/15/2015 Ot 311 07/15/2015 Ot 416.2 07/15/2015 Ot 453.50 07/15/2015 Ot 496 07/15/2015 Ot 710.0 07/15/2015 Ot 780.57 07/15/2015 Ot V45.77 07/15/2015 Ot V58.63 07/15/2015 Ot V58.69 07/15/2015 Ot V12.51 07/15/2015 Ot V72.83 07/15/2015 Ot 453.50 07/15/2015 Ot 784.0 07/15/2015 Ot V64.3 07/15/2015 Ot 996.74 07/15/2015 Ot 286.9 07/15/2015 Ot V72.84 07/15/2015 Ot 453.41 07/15/2015 MONICA POLLARD, MAI S Ot 553.21 07/15/2015 MONICA POLLARD, MAI S Ot V72.84 07/15/2015 MONICA POLLARD, MAI S Ot V74.8 07/15/2015 LEONARD POLLARD, MONICO Jones Ot 244.9 07/15/2015 LEONARD POLLARD, MONICO Jones Ot 250.00 07/15/2015 LEONARD POLLARD, MONICO Jones Ot 305.1 07/15/2015 LEONARD POLLARD, MONICO Jones Ot 311 07/15/2015 LEOANRD POLLARD, MONICO Jones Ot 327.23 07/15/2015 LEONARD POLLARD, MONICO Jones Ot 401.9 07/15/2015 LEONARD POLLARD, MONICO Jones Ot 416.2 07/15/2015 LEONARD POLLARD, MONICO Jones Ot 453.50 07/15/2015 LEONARD POLLARD, MONICO Jones Ot 496 07/15/2015 LEONARD POLLARD, MONICO Jones Ot 710.0 07/15/2015 LEONARD POLLARD, MONICO Jones Ot V58.61 07/15/2015 LEONARD POLLARD, MONICO Jones Ot V58.69 07/15/2015 MIKAL BRUNNER DO M Ot 285.9 07/15/2015 MIKAL BRUNNER DO M Ot 305.1 07/15/2015 MIKAL BRUNNER DO M Ot 327.23 07/15/2015 MYESHA BOWIE MIKAL M Ot 493.20 07/15/2015 MIKAL BRUNNER DO M Ot 710.0 07/15/2015 MIKAL BRUNNER DO Ot 716.90 07/15/2015 MIKAL BRUNNER DO M Ot 786.05 07/15/2015 RADHA POLLARD, HAZEL Fleming Ot 728.85 07/15/2015 GABY POLLARD, CANDE Gibbs Ot 724.2 07/15/2015 RICARDO CHACKO [employer] Ot 280.9 07/15/2015 RICARDO CHACKO [employer] Ot 585.3 07/15/2015 RICARDO CHACKO [employer] Ot 795.79 07/15/2015 RICARDO CHACKO [employer]ER Ot V12.51 07/15/2015 RICARDO CHACKO [employer]ER Ot V12.55 07/15/2015 RICARDO CHACKO [employer]ER Ot V58.69 07/15/2015 RADHA POLLARD, HAZEL N Ot 790.5 07/15/2015 RADHA POLLARD, HAZEL N Ot 599.0 07/15/2015 MONICA POLLARD, MAI S Ot 285.9 07/15/2015 KAYLAJOSE ACOSTA N Ot E03.9 07/15/2015 KAYLA, BOBDONELL N Ot E11.9 07/15/2015 KAYLA, BOBAN N Ot F17.200 07/15/2015 KAYLA, BOBAN N Ot F32.9 07/15/2015 KAYLA, BOBAN N Ot G47.33 07/15/2015 KAYLA, BOBAN N Ot I10 07/15/2015 KAYLA, BOBAN N Ot J44.9 07/15/2015 KAYLA, BOBAN N Ot M32.10 07/15/2015 KAYLA, BOBAN N Ot Z79.01 07/15/2015 KAYLA, BOBAN N Ot Z86.2 07/15/2015 KAYLA, BOBAN N Ot Z86.711 07/15/2015 KAYLA, BOBAN N Ot Z86.718 07/15/2015 DANIEL PORTER DO Ot M51.37 07/15/2015 GINNA RICARDO S [employer] Ot E03.9 07/15/2015 TAMAR CHACKOTERE S [employer]GER [employer] GLUER Ot E11.9 07/15/2015 CHACKO RICARDO S [employer] Ot F17.200 07/15/2015 CHACKO RICARDO S [employer] Ot F32.9 07/15/2015 TAMAR CHACKOTERE S [employer]GER [employer]UER Ot G47.33 07/15/2015 CHACKOTAMARTERE S [employer]GER [employer]UER Ot I10 07/15/2015 CHACKO RICARDO S [employer] Ot J44.9 07/15/2015 CHACKO RICARDO S [employer] Ot M32.10 07/15/2015 CHACKO, HILTERE S [employer] Ot Z79.01 07/15/2015 CHACKORICARDO Alexandra S [employer] Ot Z86.2 07/15/2015 CHACKO, HILTERE S [employer] Ot Z86.711 07/15/2015 RICARDO CHACKO S [employer] Ot Z86.718 07/15/2015 MILEY SANCHEZ [employer] Ot M46.04 07/15/2015 COLIN POLLARD, RODNEY Rai Ot F17.210 NICOTINE DEPENDENCE, CIGARETTES, UNCOMPL 07/15/2015 COLIN POLLARD, RODNEY Rai Ot J44.9 CHRONIC OBSTRUCTIVE PULMONARY DISEASE, U 07/15/2015 COLIN POLLARD, RODNEY Rai Ot K59.00 CONSTIPATION, UNSPECIFIED 07/15/2015 COLIN POLLARD, RODNEY Rai Ot M54.5 LOW BACK PAIN 07/15/2015 COLIN POLLARD, RODNEY Rai Ot N20.0 CALCULUS OF KIDNEY 07/15/2015 COLIN POLLARD, RODNEY Rai Ot N39.0 URINARY TRACT INFECTION, SITE NOT SPECIF 07/15/2015 RICARDO CHACKO [employer] Ot E03.9 07/15/2015 RICARDO CHACKO [employer] Ot E11.9 07/15/2015 RIACRDO CAHCKO [employer] Ot F17.200 07/15/2015 RICARDO CHACKO [employer] Ot F32.9 07/15/2015 RICARDO CHACKO [employer] Ot G47.33 07/15/2015 RICARDO CHACKO [employer] Ot I10 07/15/2015 RICARDO CHACKO [employer]ER Ot J44.9 07/15/2015 RICARDO CHACKO [employer]UER Ot M32.10 07/15/2015 RICARDO CHACKO [employer] Ot Z79.01 07/15/2015 RICARDO CHACKO [employer] Ot Z86.2 07/15/2015 RICARDO CHACKO [employer]ER Ot Z86.711 07/15/2015 RICARDO CHACKO [employer] Ot Z86.718 08/01/2015 MILEY SANCHEZ [employer] Ot M46.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, THORACIC REGION 08/08/2015 MILEY SANCHEZ [employer] Ot M46.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, THORACIC REGION 08/25/2015 JOSE GARZA Ot E03.9 HYPOTHYROIDISM, UNSPECIFIED 08/25/2015 JOSE GARZA Ot E11.9 TYPE 2 DIABETES MELLITUS WITHOUT COMPLIC 08/25/2015 JOSE GARZA Ot F17.200 NICOTINE DEPENDENCE, UNSPECIFIED, UNCOMP 08/25/2015 JOSE GARZA Ot F32.9 MAJOR DEPRESSIVE DISORDER, SINGLE EPISOD 08/25/2015 JOSE GARZA Lonnie Ot G47.33 OBSTRUCTIVE SLEEP APNEA (ADULT) (PEDIATR 08/25/2015 JOSE GARZA Lonnie Ot I10 ESSENTIAL (PRIMARY) HYPERTENSION 08/25/2015 JOSE GARZA Lonnie Ot J44.9 CHRONIC OBSTRUCTIVE PULMONARY DISEASE, U 08/25/2015 JOSE GARZA Lonnie Ot M32.10 SYSTEMIC LUPUS ERYTHEMATOSUS, ORGAN OR S 08/25/2015 JOSE GARZA Lonnie Ot Z79.01 [employer] (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 OF ANTICOAGULANT 08/25/2015 JOSE GARZA Lonnie Ot Z86.2 PRSNL HISTORY OF DIS OF THE BLD/BLD-FORM 08/25/2015 JOSE GARZA Lonnie Ot Z86.711 PERSONAL HISTORY OF PULMONARY EMBOLISM 08/25/2015 JOSE GARZA Lonnie Ot Z86.718 PERSONAL HISTORY OF OTHER VENOUS THROMBO 09/17/2015 Ot 305.1 TOBACCO USE DISORDER 09/17/2015 Ot 496 CHR AIRWAY OBSTRUCT NEC 09/17/2015 Ot 786.05 SHORTNESS OF BREATH 09/17/2015 Ot V58.69 OTH MED,LT, CURRENT USE 10/13/2015 RODNEY SHAW MD Ot G89.29 OTHER CHRONIC PAIN 10/13/2015 RODNEY SHAW MD Ot J44.1 CHRONIC OBSTRUCTIVE PULMONARY DISEASE W 10/13/2015 RODNEY SHAW MD Ot R00.0 TACHYCARDIA, UNSPECIFIED 10/13/2015 RODNEY SHAW MD Ot R07.89 OTHER CHEST PAIN 10/13/2015 RODNEY SHAW MD Ot Z79.891 RESIDENTIAL (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 OF OPIATE ANALGE 10/13/2015 RODNEY SHAW MD Ot Z87.891 PERSONAL HISTORY OF NICOTINE DEPENDENCE 10/14/2015 RODNEY SHAW MD Ot G89.29 OTHER CHRONIC PAIN 10/14/2015 RODNEY SHAW MD Ot J44.1 CHRONIC OBSTRUCTIVE PULMONARY DISEASE W 10/14/2015 RODNEY SHAW MD Ot R00.0 TACHYCARDIA, UNSPECIFIED 10/14/2015 RODNEY SHAW MD Ot R07.89 OTHER CHEST PAIN 10/14/2015 RODNEY SHAW MD Ot Z79.891 [employer] (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 OF OPIATE ANALGE 10/14/2015 RODNEY SHAW MD Ot Z87.891 PERSONAL HISTORY OF NICOTINE DEPENDENCE 10/14/2015 RODNEY SHAW MD Ot G89.29 OTHER CHRONIC PAIN 10/14/2015 RODNEY SHAW MD Ot J44.1 CHRONIC OBSTRUCTIVE PULMONARY DISEASE W 10/14/2015 RODNEY SHAW MD Ot R00.0 TACHYCARDIA, UNSPECIFIED 10/14/2015 RODNEY SHAW MD Ot R07.89 OTHER CHEST PAIN 10/14/2015 RODNEY SHAW MD Ot Z79.891 RESIDENTIAL (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 OF OPIATE ANALGE 10/14/2015 RODNEY SHAW MD Ot Z87.891 PERSONAL HISTORY OF NICOTINE DEPENDENCE 11/06/2015 JOSE GARZA Ot D68.8 OTHER SPECIFIED COAGULATION DEFECTS 11/06/2015 JOSE GARZA Ot D68.8 OTHER SPECIFIED COAGULATION DEFECTS 11/19/2015 JOSE GARZA Ot E03.9 HYPOTHYROIDISM, UNSPECIFIED 11/19/2015 JOSE GARZA Ot E11.9 TYPE 2 DIABETES MELLITUS WITHOUT COMPLIC 11/19/2015 JOSE GARZA Ot F17.200 NICOTINE DEPENDENCE, UNSPECIFIED, UNCOMP 11/19/2015 JOSE GARZA Ot F32.9 MAJOR DEPRESSIVE DISORDER, SINGLE EPISOD 11/19/2015 JOSE GARZA Ot G47.33 OBSTRUCTIVE SLEEP APNEA (ADULT) (PEDIATR 11/19/2015 JOSE GARZA Ot I10 ESSENTIAL (PRIMARY) HYPERTENSION 11/19/2015 JOSE GARZA Ot J44.9 CHRONIC OBSTRUCTIVE PULMONARY DISEASE, U 11/19/2015 JOSE GARZA Ot M32.10 SYSTEMIC LUPUS ERYTHEMATOSUS, ORGAN OR S 11/19/2015 JOSE GARZA Ot Z79.01 RESIDENTIAL (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 OF ANTICOAGULANT 11/19/2015 JOSE GARZA Ot Z86.2 PRSNL HISTORY OF DIS OF THE BLD/BLD-FORM 11/19/2015 JOSE GARZA Ot Z86.711 PERSONAL HISTORY OF PULMONARY EMBOLISM 11/19/2015 JOSE GARZA Ot Z86.718 PERSONAL HISTORY OF OTHER VENOUS THROMBO 11/28/2015 KAYLA JOSE Fleming Ot D68.8 OTHER SPECIFIED COAGULATION DEFECTS 12/05/2015 KAYLAJOSE Ot D68.8 OTHER SPECIFIED COAGULATION DEFECTS 12/09/2015 KAYLA JOSE Fleming Ot E03.9 HYPOTHYROIDISM, UNSPECIFIED 12/09/2015 KAYLAJOSE N Ot E11.9 TYPE 2 DIABETES MELLITUS WITHOUT COMPLIC 12/09/2015 JOSE GARZA Ot F17.200 NICOTINE DEPENDENCE, UNSPECIFIED, UNCOMP 12/09/2015 KAYLA JOSE Fleming Ot F32.9 MAJOR DEPRESSIVE DISORDER, SINGLE EPISOD 12/09/2015 JOSE GARZA N Ot G47.33 OBSTRUCTIVE SLEEP APNEA (ADULT) (PEDIATR 12/09/2015 JOSE GARZA Ot I10 ESSENTIAL (PRIMARY) HYPERTENSION 12/09/2015 JOSE GARZA N Ot J44.9 CHRONIC OBSTRUCTIVE PULMONARY DISEASE, U 12/09/2015 JOSE GARZA N Ot M32.10 SYSTEMIC LUPUS ERYTHEMATOSUS, ORGAN OR S 12/09/2015 JOSE GARZA Ot Z79.01 [employer] (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 OF ANTICOAGULANT 12/09/2015 KAYLAJOSE Ot Z86.2 PRSNL HISTORY OF DIS OF THE BLD/BLD-FORM 12/09/2015 JOSE GARZA Ot Z86.711 PERSONAL HISTORY OF PULMONARY EMBOLISM 12/09/2015 JOSE GAZRA Ot Z86.718 PERSONAL HISTORY OF OTHER VENOUS THROMBO 12/18/2015 JOSE GARZA Ot E03.9 HYPOTHYROIDISM, UNSPECIFIED 12/18/2015 JOSE GARZA Ot E11.9 TYPE 2 DIABETES MELLITUS WITHOUT COMPLIC 12/18/2015 JOSE GARZA Ot F17.200 NICOTINE DEPENDENCE, UNSPECIFIED, UNCOMP 12/18/2015 JOSE GARZA Ot F32.9 MAJOR DEPRESSIVE DISORDER, SINGLE EPISOD 12/18/2015 JOSE GARZA N Ot G47.33 OBSTRUCTIVE SLEEP APNEA (ADULT) (PEDIATR 12/18/2015 JOSE GARZA N Ot I10 ESSENTIAL (PRIMARY) HYPERTENSION 12/18/2015 JOSE GARZA N Ot J44.9 CHRONIC OBSTRUCTIVE PULMONARY DISEASE, U 12/18/2015 JOSE GARZA N Ot M32.10 SYSTEMIC LUPUS ERYTHEMATOSUS, ORGAN OR S 12/18/2015 JOSE GARZA Ot Z79.01 RESIDENTIAL (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 OF ANTICOAGULANT 12/18/2015 JOSE GARZA Ot Z86.2 PRSNL HISTORY OF DIS OF THE BLD/BLD-FORM 12/18/2015 JOSE GARZA Ot Z86.711 PERSONAL HISTORY OF PULMONARY EMBOLISM 12/18/2015 JOSE GARZA Ot Z86.718 PERSONAL HISTORY OF OTHER VENOUS THROMBO 12/18/2015 Ot 244.9 HYPOTHYROIDISM NOS 12/18/2015 Ot 249.00 SEC DIABETES MELLITUS W/OUT MENTION COMP 12/18/2015 Ot 272.4 HYPERLIPIDEMIA NEC/NOS 12/18/2015 Ot 305.1 TOBACCO USE DISORDER 12/18/2015 Ot 401.9 HYPERTENSION NOS 12/18/2015 Ot 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 12/18/2015 Ot 496 CHR AIRWAY OBSTRUCT NEC 12/18/2015 Ot 710.0 SYST LUPUS ERYTHEMATOSIS 12/18/2015 Ot V45.77 ACQRD ABSENCE OF GENITAL ORGANS 12/18/2015 Ot V58.63 LONG-TERM( CURRENT)USE OF ANTIPLATELET/AN 12/18/2015 Ot V58.69 OTH MED,LT, CURRENT USE 12/18/2015 Ot 289.81 PRIMARY HYPERCOAGULABLE STATE 12/18/2015 Ot 786.50 CHEST PAIN NOS 12/18/2015 Ot V12.51 HX-VENOUS THROMBOSIS EMBOLISM 12/18/2015 Ot 244.9 HYPOTHYROIDISM NOS 12/18/2015 Ot 249.00 SEC DIABETES MELLITUS W/OUT MENTION COMP 12/18/2015 Ot 272.4 HYPERLIPIDEMIA NEC/NOS 12/18/2015 Ot 305.1 TOBACCO USE DISORDER 12/18/2015 Ot 311 DEPRESSIVE DISORDER NEC 12/18/2015 Ot 416.2 CHRONIC PULMONARY EMBOLISM 12/18/2015 Ot 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 12/18/2015 Ot 496 CHR AIRWAY OBSTRUCT NEC 12/18/2015 Ot 710.0 SYST LUPUS ERYTHEMATOSIS 12/18/2015 Ot 780.57 UNSPECIFIED SLEEP APNEA 12/18/2015 Ot V45.77 ACQRD ABSENCE OF GENITAL ORGANS 12/18/2015 Ot V58.63 LONG-TERM( CURRENT)USE OF ANTIPLATELET/AN 12/18/2015 Ot V58.69 OTH MED,LT, CURRENT USE 12/18/2015 Ot V12.51 HX-VENOUS THROMBOSIS EMBOLISM 12/18/2015 Ot V72.83 EXAM PRE- OPERATIVE NEC 12/18/2015 Ot 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 12/18/2015 Ot 784.0 HEADACHE 12/18/2015 Ot V64.3 NO PROC FOR REASONS NEC 12/18/2015 Ot 996.74 OTH COMPL DUE TO OT VASCULAR DEVICE,IMP 12/18/2015 Ot 286.9 COAGULAT DEFECT NEC/NOS 12/18/2015 Ot V72.84 EXAM PRE- OPERATIVE NOS 12/18/2015 Ot 453.41 ACUTE VENOUS EMBOLISM THROMBOSIS DEEP 12/18/2015 MONICA POLLARD, MAI Alexandra Ot 553.21 INCISIONAL HERNIA 12/18/2015 MONICA POLLARD, MAI Alexandra Ot V72.84 EXAM PRE-OPERATIVE NOS 12/18/2015 MONICA POLLARD, MAI Alexandra Ot V74.8 SCREEN-BACTERIAL DIS NEC 12/18/2015 MONICO VALLE MD Ot 244.9 HYPOTHYROIDISM NOS 12/18/2015 LEONARD POLLARD, MONICO Jones Ot 250.00 DIAB WALLY WO COMPL, TYPE II OR UNSPEC TY 12/18/2015 MONICO VALLE MD Ot 305.1 TOBACCO USE DISORDER 12/18/2015 MONICO VALLE MD Ot 311 DEPRESSIVE DISORDER NEC 12/18/2015 MONICO VALLE MD Ot 327.23 OBSTRUCTIVE SLEEP APNEA (ADULT) (PEDIATR 12/18/2015 MONICO VALLE MD Ot 401.9 HYPERTENSION NOS 12/18/2015 MONICO VALLE MD Ot 416.2 CHRONIC PULMONARY EMBOLISM 12/18/2015 MONICO VALLE MD Ot 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 12/18/2015 MONICO VALLE MD Ot 496 CHR AIRWAY OBSTRUCT NEC 12/18/2015 MONICO VALLE MD Ot 710.0 SYST LUPUS ERYTHEMATOSIS 12/18/2015 MONICO VALLE MD Ot V58.61 ANTICOAGULANTS,LT,CURRENT USE 12/18/2015 MONICO VALLE MD Ot V58.69 OTH MED,LT,CURRENT USE 12/18/2015 MIKAL BRUNNER DO Ot 285.9 ANEMIA NOS 12/18/2015 MIKAL BRUNNER DO Ot 305.1 TOBACCO USE DISORDER 12/18/2015 MIKAL BRUNNER DO Ot 327.23 OBSTRUCTIVE SLEEP APNEA (ADULT) (PEDIATR 12/18/2015 MIKAL BRUNNER DO Ot 493.20 CHRONIC OBSTRUCTIVE ASTHMA, NOS 12/18/2015 MIKAL BRUNNER DO Ot 710.0 SYST LUPUS ERYTHEMATOSIS 12/18/2015 MIKAL BRUNNER DO Ot 716.90 ARTHROPATHY NOS-UNSPEC 12/18/2015 MIKAL BRUNNER DO Ot 786.05 SHORTNESS OF BREATH 12/18/2015 RADHA POLLARD, HAZEL Fleming Ot 728.85 SPASM OF MUSCLE 12/18/2015 GABY POLLARD, CANDE Gibbs Ot 724.2 LUMBAGO 12/18/2015 RICARDO CHACKO [employer] Ot 280.9 IRON DEFIC ANEMIA NOS 12/18/2015 RICARDO CHACKO [employer] Ot 585.3 CHRONIC KIDNEY DISEASE, STAGE III (MODER 12/18/2015 RICARDO CHACKOP Ot 795.79 OTH AND UNSPEC NONSPECIFIC IMMUNOLOGICAL 12/18/2015 RICARDO CHACKO [employer] Ot V12.51 HX-VENOUS THROMBOSIS EMBOLISM 12/18/2015 RICARDO CHACKO [employer] Ot V12.55 PERSONAL HISTORY OF PULMONARY EMBOLISM 12/18/2015 RICARDO CHACKOP Ot V58.69 OTH MED,LT,CURRENT USE 12/18/2015 RADHA POLLARD, HAZEL Fleming Ot 790.5 ABN SERUM ENZY LEVEL NEC 12/18/2015 HAZEL GARCIA MD Ot 599.0 URIN TRACT INFECTION NOS 12/18/2015 MONICA POLLARD, MAI Alexandra Ot 285.9 ANEMIA NOS 12/18/2015 DANIEL PORTER DO Ot M51.37 OTHER INTERVERTEBRAL DISC DEGENERATION, 12/18/2015 RICARDO CHACKOP Ot E03.9 HYPOTHYROIDISM, UNSPECIFIED 12/18/2015 RICARDO CHACKO [employer] Ot E11.9 TYPE 2 DIABETES MELLITUS WITHOUT COMPLIC 12/18/2015 RICARDO CHACKO [employer] Ot F17.200 NICOTINE DEPENDENCE, UNSPECIFIED, UNCOMP 12/18/2015 RICARDO CHACKO [employer] Ot F32.9 MAJOR DEPRESSIVE DISORDER, SINGLE EPISOD 12/18/2015 RICARDO CHACKO [employer] Ot G47.33 OBSTRUCTIVE SLEEP APNEA (ADULT) (PEDIATR 12/18/2015 RICARDO CHACKO [employer] Ot I10 ESSENTIAL (PRIMARY) HYPERTENSION 12/18/2015 RICARDO CHACKO [employer] Ot J44.9 CHRONIC OBSTRUCTIVE PULMONARY DISEASE, U 12/18/2015 CHACKORICARDO Alexandra WEDGER AND GLUER Ot M32.10 SYSTEMIC LUPUS ERYTHEMATOSUS, ORGAN OR S 12/18/2015 CHACKORICARDO Alexandra WEDGER AND GLUER Ot Z79.01 RESIDENTIAL (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 OF ANTICOAGULANT 12/18/2015 CHACKORICARDO Alexandra WEDGER AND GLUER Ot Z86.2 PRSNL HISTORY OF DIS OF THE BLD/BLD-FORM 12/18/2015 GINNA RICARDO Ibrahima WEDGER AND GLUER Ot Z86.711 PERSONAL HISTORY OF PULMONARY EMBOLISM 12/18/2015 GINNA TAMARTERE Alexandra WEDGER AND GLUER Ot Z86.718 PERSONAL HISTORY OF OTHER VENOUS THROMBO 12/18/2015 MILEY SANCHEZ WEDGER AND GLUER Ot M46.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, THORACIC REGION 12/18/2015 JOSE GARZA Ot E03.9 HYPOTHYROIDISM, UNSPECIFIED 12/18/2015 JOSE GARZA Ot E11.9 TYPE 2 DIABETES MELLITUS WITHOUT COMPLIC 12/18/2015 JOSE GARZA Ot F17.200 NICOTINE DEPENDENCE, UNSPECIFIED, UNCOMP 12/18/2015 JOSE GARZA Ot F32.9 MAJOR DEPRESSIVE DISORDER, SINGLE EPISOD 12/18/2015 JOSE GARZA Ot G47.33 OBSTRUCTIVE SLEEP APNEA (ADULT) (PEDIATR 12/18/2015 JOSE GARZA Ot I10 ESSENTIAL (PRIMARY) HYPERTENSION 12/18/2015 JOSE GARZA Ot J44.9 CHRONIC OBSTRUCTIVE PULMONARY DISEASE, U 12/18/2015 JOSE GARZA N Ot M32.10 SYSTEMIC LUPUS ERYTHEMATOSUS, ORGAN OR S 12/18/2015 JOSE GARZA Ot Z79.01 RESIDENTIAL (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 OF ANTICOAGULANT 12/18/2015 JOSE GARZA Ot Z86.2 PRSNL HISTORY OF DIS OF THE BLD/BLD-FORM 12/18/2015 JOSE GARZA Ot Z86.711 PERSONAL HISTORY OF PULMONARY EMBOLISM 12/18/2015 JOSE GARZA Ot Z86.718 PERSONAL HISTORY OF OTHER VENOUS THROMBO 12/18/2015 JOSE GARZA Ot D68.8 OTHER SPECIFIED COAGULATION DEFECTS 12/19/2015 JOSE GARZA Ot E03.9 HYPOTHYROIDISM, UNSPECIFIED 12/19/2015 JOSE GARZA Ot E11.9 TYPE 2 DIABETES MELLITUS WITHOUT COMPLIC 12/19/2015 JOSE GARZA Ot F17.200 NICOTINE DEPENDENCE, UNSPECIFIED, UNCOMP 12/19/2015 KAYLA JOSE Fleming Ot F32.9 MAJOR DEPRESSIVE DISORDER, SINGLE EPISOD 12/19/2015 KAYLA JOSE Fleming Ot G47.33 OBSTRUCTIVE SLEEP APNEA (ADULT) (PEDIATR 12/19/2015 KAYLAJOSE Ot I10 ESSENTIAL (PRIMARY) HYPERTENSION 12/19/2015 KAYLAJOSE Ot J44.9 CHRONIC OBSTRUCTIVE PULMONARY DISEASE, U 12/19/2015 KAYLAJOSE Ot M32.10 SYSTEMIC LUPUS ERYTHEMATOSUS, ORGAN OR S 12/19/2015 KAYLAJOSE Ot Z79.01 RESIDENTIAL (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 OF ANTICOAGULANT 12/19/2015 KAYLAJOSE Ot Z86.2 PRSNL HISTORY OF DIS OF THE BLD/BLD-FORM 12/19/2015 JOSE GARZA Ot Z86.711 PERSONAL HISTORY OF PULMONARY EMBOLISM 12/19/2015 JOSE GARZA Ot Z86.718 PERSONAL HISTORY OF OTHER VENOUS THROMBO 01/16/2016 JENNY MARIE MD Ot F17.210 NICOTINE DEPENDENCE, CIGARETTES, UNCOMPL 01/16/2016 JENNY MARIE MD Ot I10 ESSENTIAL (PRIMARY) HYPERTENSION 01/16/2016 JENNY MARIE MD, Ot J44.9 CHRONIC OBSTRUCTIVE PULMONARY DISEASE, U 01/16/2016 JENNY MARIE MD Ot R10.12 LEFT UPPER QUADRANT PAIN 01/16/2016 JENNY MARIE MD Ot R10.32 LEFT LOWER QUADRANT PAIN 01/16/2016 JENNY MARIE MD Ot R11.2 NAUSEA WITH VOMITING, UNSPECIFIED 01/16/2016 JENNY MAREI MD Ot R19.7 DIARRHEA, UNSPECIFIED 01/16/2016 JENNY MARIE MD Ot Z79.891 RESIDENTIAL (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 OF OPIATE ANALGE 01/16/2016 JENNY MARIE MD Ot Z79.899 OTHER [employer] (CURRENT) DRUG THERAPY 01/16/2016 JENNY MARIE MD Ot Z98.0 INTESTINAL BYPASS AND ANASTOMOSIS STATUS 01/19/2016 JENNY MARIE MD Ot F17.210 NICOTINE DEPENDENCE, CIGARETTES, UNCOMPL 01/19/2016 VENETIE IRA MD, JENNY D Ot I10 ESSENTIAL (PRIMARY) HYPERTENSION 01/19/2016 JENNY MARIE MD Ot J44.9 CHRONIC OBSTRUCTIVE PULMONARY DISEASE, U 01/19/2016 JENNY MARIE MD Ot R10.12 LEFT UPPER QUADRANT PAIN 01/19/2016 JENNY MARIE MD Ot R10.32 LEFT LOWER QUADRANT PAIN 01/19/2016 JENNY MARIE MD Ot R11.2 NAUSEA WITH VOMITING, UNSPECIFIED 01/19/2016 JENNY MARIE MD Ot R19.7 DIARRHEA, UNSPECIFIED 01/19/2016 JENNY MARIE MD Ot Z79.891 [employer] (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 OF OPIATE ANALGE 01/19/2016 JENNY MARIE MD, Ot Z79.899 OTHER [employer] (CURRENT) DRUG THERAPY 01/19/2016 JENNY MARIE MD Ot Z98.0 INTESTINAL BYPASS AND ANASTOMOSIS STATUS 01/19/2016 JENNY MARIE MD Ot F17.210 NICOTINE DEPENDENCE, CIGARETTES, UNCOMPL 01/19/2016 JENNY MARIE MD Ot I10 ESSENTIAL (PRIMARY) HYPERTENSION 01/19/2016 JENNY MARIE MD, Ot J44.9 CHRONIC OBSTRUCTIVE PULMONARY DISEASE, U 01/19/2016 JENNY MARIE MD Ot R10.12 LEFT UPPER QUADRANT PAIN 01/19/2016 JENNY MARIE MD Ot R10.32 LEFT LOWER QUADRANT PAIN 01/19/2016 JENNY MARIE MD Ot R11.2 NAUSEA WITH VOMITING, UNSPECIFIED 01/19/2016 JENNY MARIE MD Ot R19.7 DIARRHEA, UNSPECIFIED 01/19/2016 JENNY MARIE MD Ot Z79.891 RESIDENTIAL (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 OF OPIATE ANALGE 01/19/2016 JENNY MARIE MD, Ot Z79.899 OTHER RESIDENTIAL (CURRENT) DRUG THERAPY 01/19/2016 JENNY MARIE MD Ot Z98.0 INTESTINAL BYPASS AND ANASTOMOSIS STATUS 02/09/2016 JOSE GARZA Ot E03.9 HYPOTHYROIDISM, UNSPECIFIED 02/09/2016 JOSE GARZA Ot E11.9 TYPE 2 DIABETES MELLITUS WITHOUT COMPLIC 02/09/2016 KAYLA, BOBAN N Ot F17.200 NICOTINE DEPENDENCE, UNSPECIFIED, UNCOMP 02/09/2016 JOSE GARZA N Ot F32.9 MAJOR DEPRESSIVE DISORDER, SINGLE EPISOD 02/09/2016 KAYLA JOSE N Ot G47.33 OBSTRUCTIVE SLEEP APNEA (ADULT) (PEDIATR 02/09/2016 KAYLA GREYSONDONELL N Ot I10 ESSENTIAL (PRIMARY) HYPERTENSION 02/09/2016 KAYLAJOSE N Ot J44.9 CHRONIC OBSTRUCTIVE PULMONARY DISEASE, U 02/09/2016 KAYLA, JOSE N Ot M32.10 SYSTEMIC LUPUS ERYTHEMATOSUS, ORGAN OR S 02/09/2016 KAYAL, JOSE N Ot Z79.01 [employer] (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 OF ANTICOAGULANT 02/09/2016 JOSE GARZA N Ot Z86.2 PRSNL HISTORY OF DIS OF THE BLD/BLD-FORM 02/09/2016 JOSE GARZA N Ot Z86.711 PERSONAL HISTORY OF PULMONARY EMBOLISM 02/09/2016 JOSE GARZA N Ot Z86.718 PERSONAL HISTORY OF OTHER VENOUS THROMBO 02/20/2016 JOSE GARZA Ot E03.9 HYPOTHYROIDISM, UNSPECIFIED 02/20/2016 KAYLAJOSE N Ot E11.9 TYPE 2 DIABETES MELLITUS WITHOUT COMPLIC 02/20/2016 KAYLA, JOSE N Ot F17.200 NICOTINE DEPENDENCE, UNSPECIFIED, UNCOMP 02/20/2016 KAYLA JOSE Fleming Ot F32.9 MAJOR DEPRESSIVE DISORDER, SINGLE EPISOD 02/20/2016 KAYLA JOSE N Ot G47.33 OBSTRUCTIVE SLEEP APNEA (ADULT) (PEDIATR 02/20/2016 KAYLAJOSE N Ot I10 ESSENTIAL (PRIMARY) HYPERTENSION 02/20/2016 JOSE GARZA Ot J44.9 CHRONIC OBSTRUCTIVE PULMONARY DISEASE, U 02/20/2016 KAYLA JOSE N Ot M32.10 SYSTEMIC LUPUS ERYTHEMATOSUS, ORGAN OR S 02/20/2016 JOSE GARZA N Ot Z79.01 RESIDENTIAL (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 OF ANTICOAGULANT 02/20/2016 JOSE GARZA N Ot Z86.2 PRSNL HISTORY OF DIS OF THE BLD/BLD-FORM 02/20/2016 JOSE GARZA N Ot Z86.711 PERSONAL HISTORY OF PULMONARY EMBOLISM 02/20/2016 JOSE GARZA N Ot Z86.718 PERSONAL HISTORY OF OTHER VENOUS THROMBO 03/17/2016 JOSE GARZA N Ot E03.9 HYPOTHYROIDISM, UNSPECIFIED 03/17/2016 KAYLAJOSE ACOSTA N Ot E11.9 TYPE 2 DIABETES MELLITUS WITHOUT COMPLIC 03/17/2016 JOSE GARZA N Ot F17.200 NICOTINE DEPENDENCE, UNSPECIFIED, UNCOMP 03/17/2016 JOSE GARZA N Ot F32.9 MAJOR DEPRESSIVE DISORDER, SINGLE EPISOD 03/17/2016 JOSE GARZA N Ot G47.33 OBSTRUCTIVE SLEEP APNEA (ADULT) (PEDIATR 03/17/2016 KAYLA GREYSONDONELL N Ot I10 ESSENTIAL (PRIMARY) HYPERTENSION 03/17/2016 KAYLA JOSE N Ot J44.9 CHRONIC OBSTRUCTIVE PULMONARY DISEASE, U 03/17/2016 KAYLA JOSE N Ot M32.10 SYSTEMIC LUPUS ERYTHEMATOSUS, ORGAN OR S 03/17/2016 KAYLAGREYSON ACOSTADONELL N Ot Z79.01 [employer] (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 OF ANTICOAGULANT 03/17/2016 JOSE GARZA N Ot Z86.2 PRSNL HISTORY OF DIS OF THE BLD/BLD-FORM 03/17/2016 JOSE GARZA N Ot Z86.711 PERSONAL HISTORY OF PULMONARY EMBOLISM 03/17/2016 JOSE GARZA N Ot Z86.718 PERSONAL HISTORY OF OTHER VENOUS THROMBO 03/18/2016 Ot 305.1 TOBACCO USE DISORDER 03/18/2016 Ot 496 CHR AIRWAY OBSTRUCT NEC 03/18/2016 Ot 786.05 SHORTNESS OF BREATH 03/18/2016 Ot V58.69 OTH MED,LT, CURRENT USE 03/18/2016 JOSE GARZA N Ot E03.9 HYPOTHYROIDISM, UNSPECIFIED 03/18/2016 KAYLA JOSE N Ot E11.9 TYPE 2 DIABETES MELLITUS WITHOUT COMPLIC 03/18/2016 JOSE GARZA N Ot F17.200 NICOTINE DEPENDENCE, UNSPECIFIED, UNCOMP 03/18/2016 JOSE GARZA N Ot F32.9 MAJOR DEPRESSIVE DISORDER, SINGLE EPISOD 03/18/2016 KAYLA JOSE N Ot G47.33 OBSTRUCTIVE SLEEP APNEA (ADULT) (PEDIATR 03/18/2016 KAYLA GREYSONAN N Ot I10 ESSENTIAL (PRIMARY) HYPERTENSION 03/18/2016 KAYLA, JOSE N Ot J44.9 CHRONIC OBSTRUCTIVE PULMONARY DISEASE, U 03/18/2016 KAYLAJOSE N Ot M32.10 SYSTEMIC LUPUS ERYTHEMATOSUS, ORGAN OR S 03/18/2016 JOSE GARZA Ot Z79.01 RESIDENTIAL (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 OF ANTICOAGULANT 03/18/2016 JOSE GARZA Ot Z86.2 PRSNL HISTORY OF DIS OF THE BLD/BLD-FORM 03/18/2016 JOSE GARZA Ot Z86.711 PERSONAL HISTORY OF PULMONARY EMBOLISM 03/18/2016 JOSE GARZA Ot Z86.718 PERSONAL HISTORY OF OTHER VENOUS THROMBO 04/05/2016 ABRAN DO, FLORIAN K Ot E11.9 TYPE 2 DIABETES MELLITUS WITHOUT COMPLIC 04/05/2016 ABRAN DO, FLORIAN K Ot F17.210 NICOTINE DEPENDENCE, CIGARETTES, UNCOMPL 04/05/2016 ABRAN DO, FLORIAN K Ot I10 ESSENTIAL (PRIMARY) HYPERTENSION 04/05/2016 ABRAN DO, FLORIAN K Ot J44.9 CHRONIC OBSTRUCTIVE PULMONARY DISEASE, U 04/05/2016 ABRAN DO, FLORIAN K Ot K59.00 CONSTIPATION, UNSPECIFIED 04/05/2016 ABRAN DO, FLORIAN K Ot L93.0 DISCOID LUPUS ERYTHEMATOSUS 04/05/2016 ABRAN DO, FLORIAN K Ot N20.0 CALCULUS OF KIDNEY 04/05/2016 ABRAN DO, FLORIAN K Ot N39.0 URINARY TRACT INFECTION, SITE NOT SPECIF 04/05/2016 ABRAN DO, FLORIAN K Ot R10.31 RIGHT LOWER QUADRANT PAIN 04/05/2016 ABRAN DO, FLORIAN K Ot Z79.891 RESIDENTIAL (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 OF OPIATE ANALGE 04/05/2016 ABRAN DO FLORIAN K Ot Z79.899 OTHER RESIDENTIAL (CURRENT) DRUG THERAPY 04/06/2016 ABRAN DO FLORIAN K Ot E11.9 TYPE 2 DIABETES MELLITUS WITHOUT COMPLIC 04/06/2016 ABRAN DO, FLORIAN K Ot F17.210 NICOTINE DEPENDENCE, CIGARETTES, UNCOMPL 04/06/2016 ABRAN DO, FLORIAN K Ot I10 ESSENTIAL (PRIMARY) HYPERTENSION 04/06/2016 ABRAN DO, FLORIAN K Ot J44.9 CHRONIC OBSTRUCTIVE PULMONARY DISEASE, U 04/06/2016 ABRAN DO, FLORIAN K Ot K59.00 CONSTIPATION, UNSPECIFIED 04/06/2016 ABRAN DO, FLORIAN K Ot L93.0 DISCOID LUPUS ERYTHEMATOSUS 04/06/2016 ABRAN DO, FLORIAN K Ot N20.0 CALCULUS OF KIDNEY 04/06/2016 FLORIAN OSULLIVAN DO Ot N39.0 URINARY TRACT INFECTION, SITE NOT SPECIF 04/06/2016 FLORIAN OSULLIVAN DO Ot R10.31 RIGHT LOWER QUADRANT PAIN 04/06/2016 FLORIAN OSULLIVAN DO Ot Z79.891 RESIDENTIAL (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 OF OPIATE ANALGE 04/06/2016 FLORIAN OSULLIVAN DO Ot Z79.899 OTHER RESIDENTIAL (CURRENT) DRUG THERAPY 04/07/2016 Ot 244.9 HYPOTHYROIDISM NOS 04/07/2016 Ot 249.00 SEC DIABETES MELLITUS W/OUT MENTION COMP 04/07/2016 Ot 272.4 HYPERLIPIDEMIA NEC/NOS 04/07/2016 Ot 305.1 TOBACCO USE DISORDER 04/07/2016 Ot 401.9 HYPERTENSION NOS 04/07/2016 Ot 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 04/07/2016 Ot 496 CHR AIRWAY OBSTRUCT NEC 04/07/2016 Ot 710.0 SYST LUPUS ERYTHEMATOSIS 04/07/2016 Ot V45.77 ACQRD ABSENCE OF GENITAL ORGANS 04/07/2016 Ot V58.63 LONG-TERM( CURRENT)USE OF ANTIPLATELET/AN 04/07/2016 Ot V58.69 OTH MED,LT, CURRENT USE 04/07/2016 Ot 289.81 PRIMARY HYPERCOAGULABLE STATE 04/07/2016 Ot 786.50 CHEST PAIN NOS 04/07/2016 Ot V12.51 HX-VENOUS THROMBOSIS EMBOLISM 04/07/2016 Ot 244.9 HYPOTHYROIDISM NOS 04/07/2016 Ot 249.00 SEC DIABETES MELLITUS W/OUT MENTION COMP 04/07/2016 Ot 272.4 HYPERLIPIDEMIA NEC/NOS 04/07/2016 Ot 305.1 TOBACCO USE DISORDER 04/07/2016 Ot 311 DEPRESSIVE DISORDER NEC 04/07/2016 Ot 416.2 CHRONIC PULMONARY EMBOLISM 04/07/2016 Ot 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 04/07/2016 Ot 496 CHR AIRWAY OBSTRUCT NEC 04/07/2016 Ot 710.0 SYST LUPUS ERYTHEMATOSIS 04/07/2016 Ot 780.57 UNSPECIFIED SLEEP APNEA 04/07/2016 Ot V45.77 ACQRD ABSENCE OF GENITAL ORGANS 04/07/2016 Ot V58.63 LONG-TERM( CURRENT)USE OF ANTIPLATELET/AN 04/07/2016 Ot V58.69 OTH MED,LT, CURRENT USE 04/07/2016 Ot V12.51 HX-VENOUS THROMBOSIS EMBOLISM 04/07/2016 Ot V72.83 EXAM PRE- OPERATIVE NEC 04/07/2016 Ot 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 04/07/2016 Ot 784.0 HEADACHE 04/07/2016 Ot V64.3 NO PROC FOR REASONS NEC 04/07/2016 Ot 996.74 OTH COMPL DUE TO OT VASCULAR DEVICE,IMP 04/07/2016 Ot 286.9 COAGULAT DEFECT NEC/NOS 04/07/2016 Ot V72.84 EXAM PRE- OPERATIVE NOS 04/07/2016 Ot 453.41 ACUTE VENOUS EMBOLISM THROMBOSIS DEEP 04/07/2016 MONICA POLLARD, MAI Alexandra Ot 553.21 INCISIONAL HERNIA 04/07/2016 MONICA POLLARD, MAI Alexandra Ot V72.84 EXAM PRE-OPERATIVE NOS 04/07/2016 MONICA POLLARD, MAI Alexandra Ot V74.8 SCREEN-BACTERIAL DIS NEC 04/07/2016 MONCIO VALLE MD Ot 244.9 HYPOTHYROIDISM NOS 04/07/2016 LEONARD POLLARD, MONICO Jones Ot 250.00 DIAB WALLY WO COMPL, TYPE II OR UNSPEC TY 04/07/2016 LEONARD POLLARD, MONICO Jones Ot 305.1 TOBACCO USE DISORDER 04/07/2016 MONICO VALLE MD Ot 311 DEPRESSIVE DISORDER NEC 04/07/2016 MONICO VALLE MD Ot 327.23 OBSTRUCTIVE SLEEP APNEA (ADULT) (PEDIATR 04/07/2016 MONICO VALLE MD Ot 401.9 HYPERTENSION NOS 04/07/2016 MONICO VALLE MD Ot 416.2 CHRONIC PULMONARY EMBOLISM 04/07/2016 MONICO VALLE MD Ot 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 04/07/2016 MONICO VALLE MD Ot 496 CHR AIRWAY OBSTRUCT NEC 04/07/2016 MONICO VALLE MD Ot 710.0 SYST LUPUS ERYTHEMATOSIS 04/07/2016 MONICO VALLE MD Ot V58.61 ANTICOAGULANTS,LT,CURRENT USE 04/07/2016 MONICO VALLE MD Ot V58.69 OTH MED,LT,CURRENT USE 04/07/2016 MIKAL BRUNNER DO Ot 285.9 ANEMIA NOS 04/07/2016 MIKAL BRUNNER DO Ot 305.1 TOBACCO USE DISORDER 04/07/2016 MIKAL BRUNNER DO Ot 327.23 OBSTRUCTIVE SLEEP APNEA (ADULT) (PEDIATR 04/07/2016 MIKAL BRUNNER DO Ot 493.20 CHRONIC OBSTRUCTIVE ASTHMA, NOS 04/07/2016 MIKAL BRUNNER DO Ot 710.0 SYST LUPUS ERYTHEMATOSIS 04/07/2016 MIKAL BRUNNER DO Ot 716.90 ARTHROPATHY NOS-UNSPEC 04/07/2016 MIKAL BRUNNER DO Ot 786.05 SHORTNESS OF BREATH 04/07/2016 RADHA POLLARD, HAZEL Fleming Ot 728.85 SPASM OF MUSCLE 04/07/2016 GABY POLLARD, CANDE Gibbs Ot 724.2 LUMBAGO 04/07/2016 RICARDO CHACKO WEDGER AND GLUER Ot 280.9 IRON DEFIC ANEMIA NOS 04/07/2016 RICARDO CHACKO WEDGER AND GLUER Ot 585.3 CHRONIC KIDNEY DISEASE, STAGE III (MODER 04/07/2016 RICARDO CHACKOP Ot 795.79 OTH AND UNSPEC NONSPECIFIC IMMUNOLOGICAL 04/07/2016 RICARDO CHACKO WEDGER AND GLUER Ot V12.51 HX-VENOUS THROMBOSIS EMBOLISM 04/07/2016 RICARDO CHACKO WEDGER AND GLUER Ot V12.55 PERSONAL HISTORY OF PULMONARY EMBOLISM 04/07/2016 RICARDO CHACKOP Ot V58.69 OTH MED,LT,CURRENT USE 04/07/2016 RADHA POLLARD, HAZEL Fleming Ot 790.5 ABN SERUM ENZY LEVEL NEC 04/07/2016 RADHA POLLARD, HAZEL Fleming Ot 599.0 URIN TRACT INFECTION NOS 04/07/2016 MONICA POLLARD, MAI Alexandra Ot 285.9 ANEMIA NOS 04/07/2016 DANIEL PORTER DO Ot M51.37 OTHER INTERVERTEBRAL DISC DEGENERATION, 04/07/2016 RICARDO CHACKO WEDGER AND GLUER Ot E03.9 HYPOTHYROIDISM, UNSPECIFIED 04/07/2016 RICARDO CHACKO WEDGER AND GLUER Ot E11.9 TYPE 2 DIABETES MELLITUS WITHOUT COMPLIC 04/07/2016 RICARDO CHACKO WEDGER AND GLUER Ot F17.200 NICOTINE DEPENDENCE, UNSPECIFIED, UNCOMP 04/07/2016 RICARDO CHACKO WEDGER AND GLUER Ot F32.9 MAJOR DEPRESSIVE DISORDER, SINGLE EPISOD 04/07/2016 RICARDO CHACKO WEDGER AND GLUER Ot G47.33 OBSTRUCTIVE SLEEP APNEA (ADULT) (PEDIATR 04/07/2016 RICARDO CHACKO WEDGER AND GLUER Ot I10 ESSENTIAL (PRIMARY) HYPERTENSION 04/07/2016 RICARDO CHACKO WEDGER AND GLUER Ot J44.9 CHRONIC OBSTRUCTIVE PULMONARY DISEASE, U 04/07/2016 RICARDO CHACKO WEDGER AND GLUER Ot M32.10 SYSTEMIC LUPUS ERYTHEMATOSUS, ORGAN OR S 04/07/2016 CHACKORICARDO Alexandra WEDGER AND GLUER Ot Z79.01 [employer] (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 OF ANTICOAGULANT 04/07/2016 CHACKORICARDO Alexandra WEDGER AND GLUER Ot Z86.2 PRSNL HISTORY OF DIS OF THE BLD/BLD-FORM 04/07/2016 CHACKORICARDO Alexandra WEDGER AND GLUER Ot Z86.711 PERSONAL HISTORY OF PULMONARY EMBOLISM 04/07/2016 CHACKORICARDO Alexandra WEDGER AND GLUER Ot Z86.718 PERSONAL HISTORY OF OTHER VENOUS THROMBO 04/07/2016 MILEY SANCHEZ WEDGER AND GLUER Ot M46.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, THORACIC REGION 04/07/2016 JOSE GARZA Ot D68.8 OTHER SPECIFIED COAGULATION DEFECTS 04/07/2016 JOSE GARZA Ot E03.9 HYPOTHYROIDISM, UNSPECIFIED 04/07/2016 JOSE GARZA N Ot E11.9 TYPE 2 DIABETES MELLITUS WITHOUT COMPLIC 04/07/2016 JOSE GARZA Ot F17.200 NICOTINE DEPENDENCE, UNSPECIFIED, UNCOMP 04/07/2016 JOSE GARZA N Ot F32.9 MAJOR DEPRESSIVE DISORDER, SINGLE EPISOD 04/07/2016 JOSE GARZA N Ot G47.33 OBSTRUCTIVE SLEEP APNEA (ADULT) (PEDIATR 04/07/2016 JOSE GARZA Ot I10 ESSENTIAL (PRIMARY) HYPERTENSION 04/07/2016 JOSE GARZA Ot J44.9 CHRONIC OBSTRUCTIVE PULMONARY DISEASE, U 04/07/2016 JOSE GARZA Ot M32.10 SYSTEMIC LUPUS ERYTHEMATOSUS, ORGAN OR S 04/07/2016 JOSE GARZA Ot Z79.01 [employer] (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 OF ANTICOAGULANT 04/07/2016 JOSE GARZA Ot Z86.2 PRSNL HISTORY OF DIS OF THE BLD/BLD-FORM 04/07/2016 JOSE GARZA N Ot Z86.711 PERSONAL HISTORY OF PULMONARY EMBOLISM 04/07/2016 JOSE GARZA N Ot Z86.718 PERSONAL HISTORY OF OTHER VENOUS THROMBO 04/07/2016 CYNTHIA POLLARD, JENNY Zarate Ot E11.9 TYPE 2 DIABETES MELLITUS WITHOUT COMPLIC 04/07/2016 CYNTHIA POLLARD, JENNY Zarate Ot F17.210 NICOTINE DEPENDENCE, CIGARETTES, UNCOMPL 04/07/2016 JENNY MARIE MD Ot I10 ESSENTIAL (PRIMARY) HYPERTENSION 04/07/2016 JENNY MARIE MD Ot J44.9 CHRONIC OBSTRUCTIVE PULMONARY DISEASE, U 04/07/2016 JENNY MARIE MD Ot K59.03 DRUG INDUCED CONSTIPATION 04/07/2016 JENNY MARIE MD Ot R10.31 RIGHT LOWER QUADRANT PAIN 04/07/2016 JENNY MARIE MD Ot R11.2 NAUSEA WITH VOMITING, UNSPECIFIED 04/07/2016 JENNY MARIE MD Ot Z79.4 RESIDENTIAL (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 OF INSULIN 04/07/2016 JENNY MARIE MD Ot Z79.899 OTHER RESIDENTIAL (CURRENT) DRUG THERAPY 04/08/2016 JENNY MARIE MD Ot E11.9 TYPE 2 DIABETES MELLITUS WITHOUT COMPLIC 04/08/2016 JENNY MARIE MD Ot F17.210 NICOTINE DEPENDENCE, CIGARETTES, UNCOMPL 04/08/2016 JENNY MARIE MD Ot I10 ESSENTIAL (PRIMARY) HYPERTENSION 04/08/2016 JENNY MARIE MD Ot J44.9 CHRONIC OBSTRUCTIVE PULMONARY DISEASE, U 04/08/2016 JENNY MARIE MD Ot K59.03 DRUG INDUCED CONSTIPATION 04/08/2016 JENNY MARIE MD Ot R10.31 RIGHT LOWER QUADRANT PAIN 04/08/2016 JENNY MARIE MD Ot R11.2 NAUSEA WITH VOMITING, UNSPECIFIED 04/08/2016 JENNY MARIE MD Ot Z79.899 OTHER RESIDENTIAL (CURRENT) DRUG THERAPY 04/09/2016 JENNY MARIE MD Ot E11.9 TYPE 2 DIABETES MELLITUS WITHOUT COMPLIC 04/09/2016 JENNY MARIE MD Ot F17.210 NICOTINE DEPENDENCE, CIGARETTES, UNCOMPL 04/09/2016 JENNY MARIE MD Ot I10 ESSENTIAL (PRIMARY) HYPERTENSION 04/09/2016 JENNY MARIE MD Ot J44.9 CHRONIC OBSTRUCTIVE PULMONARY DISEASE, U 04/09/2016 JENNY MARIE MD Ot K59.03 DRUG INDUCED CONSTIPATION 04/09/2016 JENNY MARIE MD Ot R10.31 RIGHT LOWER QUADRANT PAIN 04/09/2016 VENETIE IRA MD, JENNY D Ot R11.2 NAUSEA WITH VOMITING, UNSPECIFIED 04/09/2016 JENNY MARIE MD Ot Z79.4 RESIDENTIAL (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 OF INSULIN 04/09/2016 JENNY MARIE MD Ot Z79.899 OTHER [employer] (CURRENT) DRUG THERAPY 09/20/2016 MANA DUENAS APRN Ot G47.33 OBSTRUCTIVE SLEEP APNEA (ADULT) (PEDIATR 09/21/2016 MANA DUENAS APRN Ot G47.33 OBSTRUCTIVE SLEEP APNEA (ADULT) (PEDIATR 09/21/2016 MANA DUENAS APRN Ot G47.33 OBSTRUCTIVE SLEEP APNEA (ADULT) (PEDIATR 09/21/2016 Ot 996.74 OTH COMPL DUE TO OT VASCULAR DEVICE,IMP 09/21/2016 Ot 286.9 COAGULAT DEFECT NEC/NOS 09/21/2016 Ot V72.84 EXAM PRE- OPERATIVE NOS 09/21/2016 Ot 453.41 ACUTE VENOUS EMBOLISM THROMBOSIS DEEP 09/21/2016 MAI ANDERSON MD Ot 553.21 INCISIONAL HERNIA 09/21/2016 MAI ANDERSON MD Ot V72.84 EXAM PRE-OPERATIVE NOS 09/21/2016 MAI ANDERSON MD Ot V74.8 SCREEN-BACTERIAL DIS NEC 09/21/2016 MONICO VALLE MD Ot 244.9 HYPOTHYROIDISM NOS 09/21/2016 MONICO VALLE MD Ot 250.00 DIAB WALLY WO COMPL, TYPE II OR UNSPEC TY 09/21/2016 MONICO VALLE MD Ot 305.1 TOBACCO USE DISORDER 09/21/2016 MONICO VALLE MD Ot 311 DEPRESSIVE DISORDER NEC 09/21/2016 MONICO VALLE MD Ot 327.23 OBSTRUCTIVE SLEEP APNEA (ADULT) (PEDIATR 09/21/2016 MONICO VALLE MD Ot 401.9 HYPERTENSION NOS 09/21/2016 MONICO VALLE MD Ot 416.2 CHRONIC PULMONARY EMBOLISM 09/21/2016 MONICO VALLE MD Ot 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 09/21/2016 MONICO VALLE MD Ot 496 CHR AIRWAY OBSTRUCT NEC 09/21/2016 MONICO VALLE MD Ot 710.0 SYST LUPUS ERYTHEMATOSIS 09/21/2016 MONICO VALLE MD Ot V58.61 ANTICOAGULANTS,LT,CURRENT USE 09/21/2016 MONICO VALLE MD Ot V58.69 OTH MED,LT,CURRENT USE 09/21/2016 MIKAL BRUNNER DO Ot 285.9 ANEMIA NOS 09/21/2016 MIKAL BRUNNER DO Ot 305.1 TOBACCO USE DISORDER 09/21/2016 MIKAL BRUNNER DO Ot 327.23 OBSTRUCTIVE SLEEP APNEA (ADULT) (PEDIATR 09/21/2016 MIKAL BRUNNER DO Ot 493.20 CHRONIC OBSTRUCTIVE ASTHMA, NOS 09/21/2016 MIKAL BRUNNER DO Ot 710.0 SYST LUPUS ERYTHEMATOSIS 09/21/2016 MIKAL BRUNNER DO Ot 716.90 ARTHROPATHY NOS-UNSPEC 09/21/2016 MIKAL BRUNNER DO Ot 786.05 SHORTNESS OF BREATH 09/21/2016 RADHA POLLARD, HAZEL Fleming Ot 728.85 SPASM OF MUSCLE 09/21/2016 GABY POLLARD, CANDE Gibbs Ot 724.2 LUMBAGO 09/21/2016 RICARDO CHACKOP Ot 280.9 IRON DEFIC ANEMIA NOS 09/21/2016 RICARDO CHACKOP Ot 585.3 CHRONIC KIDNEY DISEASE, STAGE III (MODER 09/21/2016 RICARDO CHACKOP Ot 795.79 OTH AND UNSPEC NONSPECIFIC IMMUNOLOGICAL 09/21/2016 RICARDO CHACKO [employer]UER Ot V12.51 HX-VENOUS THROMBOSIS EMBOLISM 09/21/2016 RICARDO CHACKOP Ot V12.55 PERSONAL HISTORY OF PULMONARY EMBOLISM 09/21/2016 RICARDO CHACKOP Ot V58.69 OTH MED,LT,CURRENT USE 09/21/2016 HAZEL GARCIA MD Ot 790.5 ABN SERUM ENZY LEVEL NEC 09/21/2016 HAZEL GARCIA MD Ot 599.0 URIN TRACT INFECTION NOS 09/21/2016 MONICA POLLARD, MAI S Ot 285.9 ANEMIA NOS 09/21/2016 DANIEL PORTER DO Ot M51.37 OTHER INTERVERTEBRAL DISC DEGENERATION, 09/21/2016 RICARDO CHACKOP Ot E03.9 HYPOTHYROIDISM, UNSPECIFIED 09/21/2016 RICARDO CHACKO [employer] Ot E11.9 TYPE 2 DIABETES MELLITUS WITHOUT COMPLIC 09/21/2016 RICARDO CHACKO [employer] Ot F17.200 NICOTINE DEPENDENCE, UNSPECIFIED, UNCOMP 09/21/2016 CHACKO, HILAH S [employer] Ot F32.9 MAJOR DEPRESSIVE DISORDER, SINGLE EPISOD 09/21/2016 CHACKORICARDO Alexandra [employer] Ot G47.33 OBSTRUCTIVE SLEEP APNEA (ADULT) (PEDIATR 09/21/2016 CHACKORICARDOP Ot I10 ESSENTIAL (PRIMARY) HYPERTENSION 09/21/2016 RICARDO CHACKOP Ot J44.9 CHRONIC OBSTRUCTIVE PULMONARY DISEASE, U 09/21/2016 RICARDO CHACKOP Ot M32.10 SYSTEMIC LUPUS ERYTHEMATOSUS, ORGAN OR S 09/21/2016 RICARDO CHACKOP Ot Z79.01 [employer] (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 OF ANTICOAGULANT 09/21/2016 RICARDO CHACKO [employer] Ot Z86.2 PRSNL HISTORY OF DIS OF THE BLD/BLD-FORM 09/21/2016 RICARDO CHACKOP Ot Z86.711 PERSONAL HISTORY OF PULMONARY EMBOLISM 09/21/2016 RICARDO CHACKO [employer] Ot Z86.718 PERSONAL HISTORY OF OTHER VENOUS THROMBO 09/21/2016 MILEY SANCHEZ [employer] Ot M46.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, THORACIC REGION 09/21/2016 JOSE GARZA Ot D68.8 OTHER SPECIFIED COAGULATION DEFECTS 09/21/2016 JOSE GARZA Ot E03.9 HYPOTHYROIDISM, UNSPECIFIED 09/21/2016 JOSE GARZA N Ot E11.9 TYPE 2 DIABETES MELLITUS WITHOUT COMPLIC 09/21/2016 JOSE GARZA N Ot F17.200 NICOTINE DEPENDENCE, UNSPECIFIED, UNCOMP 09/21/2016 JOSE GARZA N Ot F32.9 MAJOR DEPRESSIVE DISORDER, SINGLE EPISOD 09/21/2016 JOSE GARZA N Ot G47.33 OBSTRUCTIVE SLEEP APNEA (ADULT) (PEDIATR 09/21/2016 JOSE GARZA N Ot I10 ESSENTIAL (PRIMARY) HYPERTENSION 09/21/2016 JOSE GARZA N Ot J44.9 CHRONIC OBSTRUCTIVE PULMONARY DISEASE, U 09/21/2016 JOSE GARZA N Ot M32.10 SYSTEMIC LUPUS ERYTHEMATOSUS, ORGAN OR S 09/21/2016 JOSE GARZA N Ot Z79.01 RESIDENTIAL (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 OF ANTICOAGULANT 09/21/2016 JOSE GARZA N Ot Z86.2 PRSNL HISTORY OF DIS OF THE BLD/BLD-FORM 09/21/2016 JOSE GARZA Ot Z86.711 PERSONAL HISTORY OF PULMONARY EMBOLISM 09/21/2016 JOSE GARZA Ot Z86.718 PERSONAL HISTORY OF OTHER VENOUS THROMBO 09/21/2016 MANA DUENAS APRN Ot G47.33 OBSTRUCTIVE SLEEP APNEA (ADULT) (PEDIATR 09/21/2016 MANA DUENAS APRN Ot G47.33 OBSTRUCTIVE SLEEP APNEA (ADULT) (PEDIATR 09/29/2016 JOSE GARZA Ot E03.9 HYPOTHYROIDISM, UNSPECIFIED 09/29/2016 JOSE GARZA Ot E11.9 TYPE 2 DIABETES MELLITUS WITHOUT COMPLIC 09/29/2016 JOSE GARZA Ot F17.200 NICOTINE DEPENDENCE, UNSPECIFIED, UNCOMP 09/29/2016 JOSE GARZA Ot F32.9 MAJOR DEPRESSIVE DISORDER, SINGLE EPISOD 09/29/2016 JOSE GARZA Ot G47.33 OBSTRUCTIVE SLEEP APNEA (ADULT) (PEDIATR 09/29/2016 JOSE GARZA Ot I10 ESSENTIAL (PRIMARY) HYPERTENSION 09/29/2016 JOSE GARZA Ot J44.9 CHRONIC OBSTRUCTIVE PULMONARY DISEASE, U 09/29/2016 JOSE GARZA Ot M32.10 SYSTEMIC LUPUS ERYTHEMATOSUS, ORGAN OR S 09/29/2016 JOSE GARZA Ot Z79.01 RESIDENTIAL (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 OF ANTICOAGULANT 09/29/2016 JOSE GARZA Ot Z86.2 PRSNL HISTORY OF DIS OF THE BLD/BLD-FORM 09/29/2016 JOSE GARZA Ot Z86.711 PERSONAL HISTORY OF PULMONARY EMBOLISM 09/29/2016 JOSE GARZA Ot Z86.718 PERSONAL HISTORY OF OTHER VENOUS THROMBO 10/11/2016 RICARDO CHACKO [employer] GLUER Ot N63 UNSPECIFIED LUMP IN BREAST 10/12/2016 RICARDO CHACKO [employer]UER Ot N63 UNSPECIFIED LUMP IN BREAST 10/12/2016 RICARDO CHACKO [employer]UER Ot N63 UNSPECIFIED LUMP IN BREAST 10/17/2016 RICARDO CHACKO WEDGER AND GLUER Ot N63 UNSPECIFIED LUMP IN BREAST 11/04/2016 RICARDO CHACKO WEDGER AND GLUER Ot N63 UNSPECIFIED LUMP IN BREAST 11/04/2016 MIKAL BRUNNER DO Ot E66.9 OBESITY, UNSPECIFIED 11/04/2016 MIKAL BRUNNER DO Ot J44.9 CHRONIC OBSTRUCTIVE PULMONARY DISEASE, U 11/04/2016 MIKAL BRUNNER DO Ot M32.9 SYSTEMIC LUPUS ERYTHEMATOSUS, UNSPECIFIE 11/04/2016 MIKAL BRUNNER DO Ot N63 UNSPECIFIED LUMP IN BREAST 11/04/2016 MIKAL BRUNNER DO Ot R06.02 SHORTNESS OF BREATH 11/04/2016 MIKAL BRUNNER DO Ot Z72.0 TOBACCO USE 11/07/2016 MARIBELL RIVERA MD Ot E03.9 HYPOTHYROIDISM, UNSPECIFIED 11/07/2016 MARIBELL RIVERA MD Ot E11.40 TYPE 2 DIABETES MELLITUS WITH DIABETIC N 11/07/2016 MARIBELL RIVERA MD Ot E78.00 PURE HYPERCHOLESTEROLEMIA, UNSPECIFIED 11/07/2016 MARIBELL RIVERA MD Ot F32.9 MAJOR DEPRESSIVE DISORDER, SINGLE EPISOD 11/07/2016 MARIBELL RIVERA MD Ot F41.9 ANXIETY DISORDER, UNSPECIFIED 11/07/2016 MARIBELL RIVERA MD Ot G47.30 SLEEP APNEA, UNSPECIFIED 11/07/2016 MARIBELL RIVERA MD Ot G89.29 OTHER CHRONIC PAIN 11/07/2016 MARIBELL RIVERA MD Ot I10 ESSENTIAL (PRIMARY) HYPERTENSION 11/07/2016 MARIBELL RIVERA MD Ot I73.9 PERIPHERAL VASCULAR DISEASE, UNSPECIFIED 11/07/2016 MARIBELL RIVERA MD Ot J44.9 CHRONIC OBSTRUCTIVE PULMONARY DISEASE, U 11/07/2016 MARIBELL RIVERA MD Ot K21.9 GASTRO-ESOPHAGEAL REFLUX DISEASE WITHOUT 11/07/2016 MARIBELL RIVERA MD Ot M19.90 UNSPECIFIED OSTEOARTHRITIS, UNSPECIFIED 11/07/2016 MARIBELL RIVERA MD Ot M54.9 DORSALGIA, UNSPECIFIED 11/07/2016 MARIBELL RIVERA MD Ot R10.30 LOWER ABDOMINAL PAIN, UNSPECIFIED 11/07/2016 MARIBELL RIVERA MD Ot Z79.01 RESIDENTIAL (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 OF ANTICOAGULANT 11/07/2016 MARIBELL RIVERA MD Ot Z82.49 FAMILY HX OF ISCHEM HEART DIS AND OTH DI 11/07/2016 MARIBELL RIVERA MD Ot Z86.718 PERSONAL HISTORY OF OTHER VENOUS THROMBO 11/07/2016 MARIBELL RIVERA MD, Ot Z87.19 PERSONAL HISTORY OF OTHER DISEASES OF TH 11/07/2016 MARIBELL RIVERA MD Ot Z87.442 PERSONAL HISTORY OF URINARY CALCULI 11/07/2016 MARIBELL RIVERA MD Ot Z90.49 ACQUIRED ABSENCE OF OTHER SPECIFIED PART 11/07/2016 MARIBELL RIVERA MD, Ot Z90.710 ACQUIRED ABSENCE OF BOTH CERVIX AND UTER 11/09/2016 MARIBELL RIVERA MD Ot R10.9 UNSPECIFIED ABDOMINAL PAIN 11/09/2016 MARIBELL RIVERA MD Ot Z79.01 [employer] (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 OF ANTICOAGULANT 11/09/2016 MARIBELL RIVERA MD, Ot Z87.442 PERSONAL HISTORY OF URINARY CALCULI 11/12/2016 RICARDO CHACKO WEDGER AND GLUER Ot N63 UNSPECIFIED LUMP IN BREAST 11/12/2016 MIKAL BRUNNER DO Ot E66.9 OBESITY, UNSPECIFIED 11/12/2016 MIKAL BRUNNER DO Ot J44.9 CHRONIC OBSTRUCTIVE PULMONARY DISEASE, U 11/12/2016 MIKAL BRUNNER DO, Ot M32.9 SYSTEMIC LUPUS ERYTHEMATOSUS, UNSPECIFIE 11/12/2016 MIKAL BRUNNER DO Ot N63 UNSPECIFIED LUMP IN BREAST 11/12/2016 MIKAL BRUNNER DO Ot R06.02 SHORTNESS OF BREATH 11/12/2016 MIKAL BRUNNER DO Ot Z72.0 TOBACCO USE 11/13/2016 MARIBELL RIVERA MD Ot E03.9 HYPOTHYROIDISM, UNSPECIFIED 11/13/2016 MARIBELL RIVERA MD Ot E11.40 TYPE 2 DIABETES MELLITUS WITH DIABETIC N 11/13/2016 MARIBELL RIVERA MD Ot E78.00 PURE HYPERCHOLESTEROLEMIA, UNSPECIFIED 11/13/2016 MARIBELL RIVERA MD Ot F32.9 MAJOR DEPRESSIVE DISORDER, SINGLE EPISOD 11/13/2016 MARIBELL RIVERA MD Ot F41.9 ANXIETY DISORDER, UNSPECIFIED 11/13/2016 MARIBELL RIVERA MD Ot G47.30 SLEEP APNEA, UNSPECIFIED 11/13/2016 MARIBELL RIVERA MD Ot G89.29 OTHER CHRONIC PAIN 11/13/2016 MARIBELL RIVERA MD Ot I10 ESSENTIAL (PRIMARY) HYPERTENSION 11/13/2016 MARIBELL RIVERA MD Ot I73.9 PERIPHERAL VASCULAR DISEASE, UNSPECIFIED 11/13/2016 MARIBELL RIVERA MD, Ot J44.9 CHRONIC OBSTRUCTIVE PULMONARY DISEASE, U 11/13/2016 MARIBELL RIVERA MD, Ot K21.9 GASTRO-ESOPHAGEAL REFLUX DISEASE WITHOUT 11/13/2016 MARIBELL RIVERA MD Ot M19.90 UNSPECIFIED OSTEOARTHRITIS, UNSPECIFIED 11/13/2016 MARIBELL RIVERA MD, Ot M54.9 DORSALGIA, UNSPECIFIED 11/13/2016 MARIBELL RIVERA MD, Ot R10.30 LOWER ABDOMINAL PAIN, UNSPECIFIED 11/13/2016 MARIBELL RIVERA MD, Ot Z79.01 [employer] (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 OF ANTICOAGULANT 11/13/2016 MARIBELL RIVERA MD, Ot Z82.49 FAMILY HX OF ISCHEM HEART DIS AND OTH DI 11/13/2016 MARIBELL RIVERA MD, Ot Z86.718 PERSONAL HISTORY OF OTHER VENOUS THROMBO 11/13/2016 MARIBELL RIVERA MD, Ot Z87.19 PERSONAL HISTORY OF OTHER DISEASES OF TH 11/13/2016 MARIBELL RIVERA MD, Ot Z87.442 PERSONAL HISTORY OF URINARY CALCULI 11/13/2016 MARIBELL RIVERA MD, Ot Z90.49 ACQUIRED ABSENCE OF OTHER SPECIFIED PART 11/13/2016 MARIBELL RIVERA MD Ot Z90.710 ACQUIRED ABSENCE OF BOTH CERVIX AND UTER 12/10/2016 JOSE GARZA Ot E03.9 HYPOTHYROIDISM, UNSPECIFIED 12/10/2016 JOSE GARZA Ot E11.9 TYPE 2 DIABETES MELLITUS WITHOUT COMPLIC 12/10/2016 JOSE GARZA Ot F17.200 NICOTINE DEPENDENCE, UNSPECIFIED, UNCOMP 12/10/2016 JOSE GARZA Ot F32.9 MAJOR DEPRESSIVE DISORDER, SINGLE EPISOD 12/10/2016 JOSE GARZA Ot G47.33 OBSTRUCTIVE SLEEP APNEA (ADULT) (PEDIATR 12/10/2016 JOSE GARZA Ot I10 ESSENTIAL (PRIMARY) HYPERTENSION 12/10/2016 JOSE GARZA Ot J44.9 CHRONIC OBSTRUCTIVE PULMONARY DISEASE, U 12/10/2016 JOSE GARZA Ot M32.10 SYSTEMIC LUPUS ERYTHEMATOSUS, ORGAN OR S 12/10/2016 JOSE GARZA Ot Z79.01 RESIDENTIAL (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 OF ANTICOAGULANT 12/10/2016 JOSE GARZA Ot Z86.2 PRSNL HISTORY OF DIS OF THE BLD/BLD-FORM 12/10/2016 JOSE GARZA N Ot Z86.711 PERSONAL HISTORY OF PULMONARY EMBOLISM 12/10/2016 KAYLA GREYSONDONELL Lonnie Ot Z86.718 PERSONAL HISTORY OF OTHER VENOUS THROMBO 12/13/2016 JOSE GARZA Lonnie Ot E03.9 HYPOTHYROIDISM, UNSPECIFIED 12/13/2016 KAYLA JOSE Fleming Ot E11.9 TYPE 2 DIABETES MELLITUS WITHOUT COMPLIC 12/13/2016 KAYLA JOSE Fleming Ot F17.200 NICOTINE DEPENDENCE, UNSPECIFIED, UNCOMP 12/13/2016 KAYLA JOSE Fleming Ot F32.9 MAJOR DEPRESSIVE DISORDER, SINGLE EPISOD 12/13/2016 KAYLA JOSE Fleming Ot G47.33 OBSTRUCTIVE SLEEP APNEA (ADULT) (PEDIATR 12/13/2016 KAYLAJOSE Ot I10 ESSENTIAL (PRIMARY) HYPERTENSION 12/13/2016 JOSE GARZA Ot J44.9 CHRONIC OBSTRUCTIVE PULMONARY DISEASE, U 12/13/2016 KAYLA JOSE Fleming Ot M32.10 SYSTEMIC LUPUS ERYTHEMATOSUS, ORGAN OR S 12/13/2016 KAYLA GREYSONDONELL Lonnie Ot Z79.01 RESIDENTIAL (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 OF ANTICOAGULANT 12/13/2016 JOSE GARZA Lonnie Ot Z86.2 PRSNL HISTORY OF DIS OF THE BLD/BLD-FORM 12/13/2016 JOSE GARZA Lonnie Ot Z86.711 PERSONAL HISTORY OF PULMONARY EMBOLISM 12/13/2016 KAYLA GREYSONDONELL Lonnie Ot Z86.718 PERSONAL HISTORY OF OTHER VENOUS THROMBO 12/15/2016 PATRICE PAREDES APRN Ot E03.9 HYPOTHYROIDISM, UNSPECIFIED 12/15/2016 PATRICE PAREDES APRN Ot E11.40 TYPE 2 DIABETES MELLITUS WITH DIABETIC N 12/15/2016 PATRICE PAREDES APRN Ot E78.00 PURE HYPERCHOLESTEROLEMIA, UNSPECIFIED 12/15/2016 PATRICE PAREDES APRN Ot F32.9 MAJOR DEPRESSIVE DISORDER, SINGLE EPISOD 12/15/2016 PATRICE PAREDES APRN Ot F41.9 ANXIETY DISORDER, UNSPECIFIED 12/15/2016 PATRICE PAREDES APRN Ot G47.30 SLEEP APNEA, UNSPECIFIED 12/15/2016 PATRICE PAREDES APRN Ot I10 ESSENTIAL (PRIMARY) HYPERTENSION 12/15/2016 PATRICE PAREDES APRN Ot J44.9 CHRONIC OBSTRUCTIVE PULMONARY DISEASE, U 12/15/2016 PATRICE PAREDES APRN Ot K21.9 GASTRO-ESOPHAGEAL REFLUX DISEASE WITHOUT 12/15/2016 PATRICE PAREDES APRN Ot R10.31 RIGHT LOWER QUADRANT PAIN 12/15/2016 PATRICE PAREDES APRN Ot R10.32 LEFT LOWER QUADRANT PAIN 12/15/2016 PATRICE PAREDES APRN Ot Z79.01 RESIDENTIAL (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 OF ANTICOAGULANT 12/15/2016 PATRICE PAREDES APRN Ot Z82.49 FAMILY HX OF ISCHEM HEART DIS AND OTH DI 12/15/2016 PATRICE PAREDES APRN Ot Z86.718 PERSONAL HISTORY OF OTHER VENOUS THROMBO 12/15/2016 PATRICE PAREDES APRN Ot Z87.19 PERSONAL HISTORY OF OTHER DISEASES OF TH 12/15/2016 PATRICE PAREDES APRN Ot Z87.442 PERSONAL HISTORY OF URINARY CALCULI 12/15/2016 PATRICE PAREDES APRN Ot Z87.891 PERSONAL HISTORY OF NICOTINE DEPENDENCE 12/15/2016 PATRICE PAREDES APRN Ot Z90.49 ACQUIRED ABSENCE OF OTHER SPECIFIED PART 12/15/2016 PATRICE PAREDES APRN Ot Z90.710 ACQUIRED ABSENCE OF BOTH CERVIX AND UTER 12/18/2016 PATRICE PAREDES APRN Ot E03.9 HYPOTHYROIDISM, UNSPECIFIED 12/18/2016 PATRICE PAREDES APRN Ot E11.40 TYPE 2 DIABETES MELLITUS WITH DIABETIC N 12/18/2016 PATRICE PAREDES APRN Ot E78.00 PURE HYPERCHOLESTEROLEMIA, UNSPECIFIED 12/18/2016 PATRICE PAREDES APRN Ot F32.9 MAJOR DEPRESSIVE DISORDER, SINGLE EPISOD 12/18/2016 PATRICE PAREDES APRN Ot F41.9 ANXIETY DISORDER, UNSPECIFIED 12/18/2016 PATRICE PAREDES APRN Ot G47.30 SLEEP APNEA, UNSPECIFIED 12/18/2016 PATRICE PAREDES APRN Ot I10 ESSENTIAL (PRIMARY) HYPERTENSION 12/18/2016 PATRICE PAREDES APRN Ot J44.9 CHRONIC OBSTRUCTIVE PULMONARY DISEASE, U 12/18/2016 PATRICE PAREDES APRN Ot K21.9 GASTRO-ESOPHAGEAL REFLUX DISEASE WITHOUT 12/18/2016 PATRICE PAREDES APRN Ot R10.31 RIGHT LOWER QUADRANT PAIN 12/18/2016 PATRICE PAREDES APRN Ot R10.32 LEFT LOWER QUADRANT PAIN 12/18/2016 PATRICE PAREDES APRN Ot Z79.01 [employer] (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 OF ANTICOAGULANT 12/18/2016 PATRICE PAREDES APRN Ot Z82.49 FAMILY HX OF ISCHEM HEART DIS AND OTH DI 12/18/2016 PATRICE PAREDES APRN Ot Z86.718 PERSONAL HISTORY OF OTHER VENOUS THROMBO 12/18/2016 PATRICE PAREDES APRN Ot Z87.19 PERSONAL HISTORY OF OTHER DISEASES OF TH 12/18/2016 PATRICE PAREDES APRN Ot Z87.442 PERSONAL HISTORY OF URINARY CALCULI 12/18/2016 PATRICE PAREDES APRN Ot Z87.891 PERSONAL HISTORY OF NICOTINE DEPENDENCE 12/18/2016 PATRICE PAREDES APRN Ot Z90.49 ACQUIRED ABSENCE OF OTHER SPECIFIED PART 12/18/2016 PATRICE PAREDES APRN Ot Z90.710 ACQUIRED ABSENCE OF BOTH CERVIX AND UTER 12/27/2016 JOSE GARZA Ot E03.9 HYPOTHYROIDISM, UNSPECIFIED 12/27/2016 JOSE GARZA Ot E11.9 TYPE 2 DIABETES MELLITUS WITHOUT COMPLIC 12/27/2016 JOSE GARZA Ot F17.200 NICOTINE DEPENDENCE, UNSPECIFIED, UNCOMP 12/27/2016 JOSE GARZA Ot F32.9 MAJOR DEPRESSIVE DISORDER, SINGLE EPISOD 12/27/2016 JOSE GARZA Ot G47.33 OBSTRUCTIVE SLEEP APNEA (ADULT) (PEDIATR 12/27/2016 JOSE GARZA Ot I10 ESSENTIAL (PRIMARY) HYPERTENSION 12/27/2016 JOSE GARZA Ot J44.9 CHRONIC OBSTRUCTIVE PULMONARY DISEASE, U 12/27/2016 JOSE GARZA Ot M32.10 SYSTEMIC LUPUS ERYTHEMATOSUS, ORGAN OR S 12/27/2016 JOSE GARZA Ot Z79.01 [employer] (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 OF ANTICOAGULANT 12/27/2016 JOSE GARZA Ot Z86.2 PRSNL HISTORY OF DIS OF THE BLD/BLD-FORM 12/27/2016 JOSE GARZA Ot Z86.711 PERSONAL HISTORY OF PULMONARY EMBOLISM 12/27/2016 JOSE GARZA Ot Z86.718 PERSONAL HISTORY OF OTHER VENOUS THROMBO 12/28/2016 JOSE GARZA Ot E03.9 HYPOTHYROIDISM, UNSPECIFIED 12/28/2016 KAYLA JOSE Fleming Ot E11.9 TYPE 2 DIABETES MELLITUS WITHOUT COMPLIC 12/28/2016 KAYLA JOSE Fleming Ot F17.200 NICOTINE DEPENDENCE, UNSPECIFIED, UNCOMP 12/28/2016 KAYLA JOSE Fleming Ot F32.9 MAJOR DEPRESSIVE DISORDER, SINGLE EPISOD 12/28/2016 KAYLA JOSE Fleming Ot G47.33 OBSTRUCTIVE SLEEP APNEA (ADULT) (PEDIATR 12/28/2016 KAYLAJOSE Ot I10 ESSENTIAL (PRIMARY) HYPERTENSION 12/28/2016 KAYLAJOSE Ot J44.9 CHRONIC OBSTRUCTIVE PULMONARY DISEASE, U 12/28/2016 KAYLA, JOSE Fleming Ot M32.10 SYSTEMIC LUPUS ERYTHEMATOSUS, ORGAN OR S 12/28/2016 JOSE GARZA Ot Z79.01 RESIDENTIAL (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 OF ANTICOAGULANT 12/28/2016 KAYLAJOSE Ot Z86.2 PRSNL HISTORY OF DIS OF THE BLD/BLD-FORM 12/28/2016 JOSE GARZA Ot Z86.711 PERSONAL HISTORY OF PULMONARY EMBOLISM 12/28/2016 KYALAJOSE ACOSTA Ot Z86.718 PERSONAL HISTORY OF OTHER VENOUS THROMBO 01/11/2017 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 Ot J44.9 CHRONIC OBSTRUCTIVE PULMONARY DISEASE, U 01/11/2017 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 Ot J96.20 ACUTE AND CHR RESP FAILURE, UNSP W HYPOX 01/11/2017 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 Ot Z72.0 TOBACCO USE 01/12/2017 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 Ot J44.9 CHRONIC OBSTRUCTIVE PULMONARY DISEASE, U 01/12/2017 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 Ot J96.20 ACUTE AND CHR RESP FAILURE, UNSP W HYPOX 01/12/2017 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 Ot Z72.0 TOBACCO USE 02/01/2017 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 Ot J44.9 CHRONIC OBSTRUCTIVE PULMONARY DISEASE, U 02/01/2017 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 Ot J96.20 ACUTE AND CHR RESP FAILURE, UNSP W HYPOX 02/01/2017 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 Ot Z72.0 TOBACCO USE 02/11/2017 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 Ot J44.9 CHRONIC OBSTRUCTIVE PULMONARY DISEASE, U 02/11/2017 MANA DUENAS APRN Ot J96.20 ACUTE AND CHR RESP FAILURE, UNSP W HYPOX 02/11/2017 MANA DUENAS APRN Ot Z72.0 TOBACCO USE 04/05/2017 JOSE GARZA N Ot D50.0 IRON DEFICIENCY ANEMIA SECONDARY TO BLOO 04/05/2017 JOSE GARZA N Ot 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 04/05/2017 JOSE GARZA N Ot E03.9 HYPOTHYROIDISM, UNSPECIFIED 04/05/2017 KAYLAJOSE N Ot E11.9 TYPE 2 DIABETES MELLITUS WITHOUT COMPLIC 04/05/2017 KAYLAJOSE N Ot F17.200 NICOTINE DEPENDENCE, UNSPECIFIED, UNCOMP 04/05/2017 JOSE GARZA N Ot F32.9 MAJOR DEPRESSIVE DISORDER, SINGLE EPISOD 04/05/2017 JOSE GARZA N Ot G47.33 OBSTRUCTIVE SLEEP APNEA (ADULT) (PEDIATR 04/05/2017 JOSE GARZA N Ot I10 ESSENTIAL (PRIMARY) HYPERTENSION 04/05/2017 JOSE GARZA Ot J44.9 CHRONIC OBSTRUCTIVE PULMONARY DISEASE, U 04/05/2017 JOSE GARZA N Ot Z79.01 RESIDENTIAL (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 OF ANTICOAGULANT 04/05/2017 JOSE GARZA N Ot Z86.2 PRSNL HISTORY OF DIS OF THE BLD/BLD-FORM 04/05/2017 JOSE GARZA N Ot Z86.711 PERSONAL HISTORY OF PULMONARY EMBOLISM 04/05/2017 JOSE GARZA N Ot Z86.718 PERSONAL HISTORY OF OTHER VENOUS THROMBO 05/10/2017 JOSE GARZA N Ot D50.0 IRON DEFICIENCY ANEMIA SECONDARY TO BLOO 05/10/2017 KAYLAJOSE N Ot 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 05/10/2017 JOSE GARZA N Ot E03.9 HYPOTHYROIDISM, UNSPECIFIED 05/10/2017 KAYLAJOSE N Ot E11.9 TYPE 2 DIABETES MELLITUS WITHOUT COMPLIC 05/10/2017 KAYLAJOSE N Ot F17.200 NICOTINE DEPENDENCE, UNSPECIFIED, UNCOMP 05/10/2017 JOSE GARZA N Ot F32.9 MAJOR DEPRESSIVE DISORDER, SINGLE EPISOD 05/10/2017 KAYLAJOSE N Ot G47.33 OBSTRUCTIVE SLEEP APNEA (ADULT) (PEDIATR 05/10/2017 KAYLAJOSE Ot I10 ESSENTIAL (PRIMARY) HYPERTENSION 05/10/2017 JOSE GARZA Ot J44.9 CHRONIC OBSTRUCTIVE PULMONARY DISEASE, U 05/10/2017 JOSE GARZA Ot Z79.01 [employer] (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 OF ANTICOAGULANT 05/10/2017 JOSE GARZA Ot Z86.2 PRSNL HISTORY OF DIS OF THE BLD/BLD-FORM 05/10/2017 JOSE GARZA Ot Z86.711 PERSONAL HISTORY OF PULMONARY EMBOLISM 05/10/2017 JOSE GARZA Ot Z86.718 PERSONAL HISTORY OF OTHER VENOUS THROMBO 05/20/2017 JOSE GARZA Ot D50.0 IRON DEFICIENCY ANEMIA SECONDARY TO BLOO 05/20/2017 JOSE GARZA Ot 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 05/20/2017 JOSE GARZA Ot E03.9 HYPOTHYROIDISM, UNSPECIFIED 05/20/2017 JOSE GARZA Ot E11.9 TYPE 2 DIABETES MELLITUS WITHOUT COMPLIC 05/20/2017 JOSE GARZA Ot F17.200 NICOTINE DEPENDENCE, UNSPECIFIED, UNCOMP 05/20/2017 JOSE GARZA Ot F32.9 MAJOR DEPRESSIVE DISORDER, SINGLE EPISOD 05/20/2017 JOSE GARZA Ot G47.33 OBSTRUCTIVE SLEEP APNEA (ADULT) (PEDIATR 05/20/2017 JOSE GARZA Ot I10 ESSENTIAL (PRIMARY) HYPERTENSION 05/20/2017 JOSE GARZA Ot J44.9 CHRONIC OBSTRUCTIVE PULMONARY DISEASE, U 05/20/2017 JOSE GARZA Ot Z79.01 [employer] (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 OF ANTICOAGULANT 05/20/2017 JOSE GARZA Ot Z86.2 PRSNL HISTORY OF DIS OF THE BLD/BLD-FORM 05/20/2017 JOSE GARZA Ot Z86.711 PERSONAL HISTORY OF PULMONARY EMBOLISM 05/20/2017 JOSE GARZA Ot Z86.718 PERSONAL HISTORY OF OTHER VENOUS THROMBO Procedures Code Description Performed By Performed On 88.51 VENA CAV ANGIOCARDIOGRAM 10/26/2010 38.7 PLICATION OF VENA CAVA 10/27/2010 39.99 VESSEL OPERATION NEC 10/27/2010 86.07 INSERTION OF TOTALLY IMPLANTABLE VASC AC 10/27/2010 38.93 VENOUS CATHETERIZATION NEC 04/02/2012 23625 MICRO ALBUMIN-IN HOUSE 06/20/2012 01973 A1C (IN-HOUSE) 06/20/2012 79527 MICROALBUMIN 06/20/2012 21120 PSYTX PT&/FAMILY 45 MINUTES 12/28/2012 11967 PSYTX PT&/FAMILY 45 MINUTES 03/14/2013 55829 OXIMETRY 03/27/2013 87987 TSH 05/01/2013 49712 CBC 05/01/2013 PULMONARY Mikal Brunner 05/01/2013 20900 MAMMOGRAM DX, MIRTA 05/10/2013 DERMATOLO JU CORMIER 06/05/2013 00934 A1C (IN-HOUSE) 06/05/2013 20002 MICRO ALBUMIN-IN HOUSE 06/05/2013 47828 URINE DRUG SCREEN (IN-HOUSE ) 06/05/2013 45092 MICROALBUMIN 06/06/2013 Medical O [facility] 06/11/2013 21329 A1C (IN-HOUSE) 10/09/2013 02824 BMP 10/09/2013 28983 OXIMETRY 10/09/2013 NEUROLOGY PABLO GRANDA 11/08/2013 ORTHOPEDI EDU KISER 12/11/2013 73061 US SOFT TISSUE (SPECIFY LOCATION) 12/11/2013 27897 A1C (IN-HOUSE) 03/22/2014 General S Ollie Diaz 06/27/2014 S8037 MRCP 07/18/2014 Urology Duane Meneses 07/18/2014 08821 UA W/ CULTURE IF INDICATED 07/18/2014 Results Test Result Range Complete urinalysis with reflex to culture - 01/16/16 18:09 Urine color determination YELLOW NRG Urine clarity determination CLEAR NRG Urine pH measurement by test strip 7 5-9 Specific gravity of urine by test strip 1.010 1.016- 1.022 Urine protein assay by test strip, semi-quantitative NEGATIVE NEGATIVE Urine glucose detection by automated test strip NEGATIVE NEGATIVE Erythrocytes detection in urine sediment by light microscopy 3+ NEGATIVE Urine ketones detection by automated test strip NEGATIVE NEGATIVE Urine nitrite detection by test strip NEGATIVE NEGATIVE Urine total bilirubin detection by test strip NEGATIVE NEGATIVE Urine urobilinogen measurement by automated test strip (mass/volume) NORMAL NORMAL Urine leukocyte esterase detection by dipstick 1+ NEGATIVE Automated urine sediment erythrocyte count by microscopy (number/high power field) [HPF] NRG Automated urine sediment leukocyte count by microscopy (number/high power field ) [HPF] NRG Bacteria detection in urine sediment by light microscopy NEGATIVE NRG Squamous epithelial cells detection in urine sediment by light microscopy 5-10 NRG Crystals detection in urine sediment by light microscopy NONE NRG Casts detection in urine sediment by light microscopy NONE NRG Mucus detection in urine sediment by light microscopy NEGATIVE NRG Complete urinalysis with reflex to culture NO NRG Complete blood count (CBC) with automated white blood cell (WBC) differential - 01/16/16 18:45 Blood leukocytes automated count (number/volume) 6.8 10*3/uL 4.3-11.0 Blood erythrocytes automated count (number/volume) 4.60 10*6/uL 4.35-5.85 Venous blood hemoglobin measurement (mass/volume) 15.8 g/dL 11.5-16.0 Blood hematocrit (volume fraction) 45 % 35-52 Automated erythrocyte mean corpuscular volume 97 [foz_us] 80-99 Automated erythrocyte mean corpuscular hemoglobin (mass per erythrocyte) 34 pg 25-34 Automated erythrocyte mean corpuscular hemoglobin concentration measurement ( mass/volume) 35 g/dL 32-36 Automated erythrocyte distribution width ratio 12.0 % 10.0-14.5 Automated blood platelet count (count/volume) 134 10*3/uL 130-400 Automated blood platelet mean volume measurement 10.7 [foz_us] 7.4-10.4 Automated blood neutrophils/100 leukocytes 55 % 42-75 Automated blood lymphocytes/100 leukocytes 37 % 12-44 Blood monocytes/100 leukocytes 5 % 0-12 Automated blood eosinophils/100 leukocytes 2 % 0-10 Automated blood basophils/100 leukocytes 1 % 0-10 Blood neutrophils automated count (number/volume) 3.7 10*3 1.8-7.8 Blood lymphocytes automated count (number/volume) 2.5 10*3 1.0-4.0 Blood monocytes automated count (number/volume) 0.4 10*3 0.0-1.0 Automated eosinophil count 0.2 10*3/uL 0.0-0.3 Automated blood basophil count (count/volume) 0.0 10*3/uL 0.0-0.1 Comprehensive metabolic panel - 01/16/16 18:45 Serum or plasma sodium measurement (moles/volume) 138 mmol/L 135-145 Serum or plasma potassium measurement (moles/volume) 3.8 mmol/L 3.6-5.0 Serum or plasma chloride measurement (moles/volume) 103 mmol/L 98-107 Carbon dioxide 26 mmol/L 21-32 Serum or plasma anion gap determination (moles/volume) 9 mmol/L 5-14 Serum or plasma urea nitrogen measurement (mass/volume) 10 mg/dL 7-18 Serum or plasma creatinine measurement (mass/volume) 0.73 mg/dL 0.60-1.30 Serum or plasma urea nitrogen/creatinine mass ratio 14 NRG Serum or plasma creatinine measurement with calculation of estimated glomerular filtration rate > NRG Serum or plasma glucose measurement (mass/volume) 93 mg/dL 70-105 Serum or plasma calcium measurement (mass/volume) 9.8 mg/dL 8.5-10.1 Serum or plasma total bilirubin measurement (mass/volume) 0.5 mg/dL 0.1-1.0 Serum or plasma alkaline phosphatase measurement (enzymatic activity/volume) 80 U/L 40-136 Serum or plasma aspartate aminotransferase measurement (enzymatic activity/ volume) 13 U/L 5-34 Serum or plasma alanine aminotransferase measurement (enzymatic activity/volume ) 8 U/L 0-55 Serum or plasma protein measurement (mass/volume) 6.9 g/dL 6.4-8.2 Serum or plasma albumin measurement (mass/volume) 4.2 g/dL 3.2-4.5 Serum or plasma amylase measurement (enzymatic activity/volume) - 01/16/16 18: 45 Serum or plasma amylase measurement (enzymatic activity/volume) 50 U /L 25-125 Lipase - 01/16/16 18:45 Lipase 12 U/L 8-78 Complete blood count (CBC) with automated white blood cell (WBC) differential - 04/05/16 06:03 Blood leukocytes automated count (number/volume) 10.5 10*3/uL 4.3-11.0 Blood erythrocytes automated count (number/volume) 4.30 10*6/uL 4.35-5.85 Venous blood hemoglobin measurement (mass/volume) 14.5 g/dL 11.5-16.0 Blood hematocrit (volume fraction) 42 % 35-52 Automated erythrocyte mean corpuscular volume 98 [foz_us] 80-99 Automated erythrocyte mean corpuscular hemoglobin (mass per erythrocyte) 34 pg 25-34 Automated erythrocyte mean corpuscular hemoglobin concentration measurement ( mass/volume) 34 g/dL 32-36 Automated erythrocyte distribution width ratio 12.4 % 10.0-14.5 Automated blood platelet count (count/volume) 150 10*3/uL 130-400 Automated blood platelet mean volume measurement 10.9 [foz_us] 7.4-10.4 Automated blood neutrophils/100 leukocytes 53 % 42-75 Automated blood lymphocytes/100 leukocytes 41 % 12-44 Blood monocytes/100 leukocytes 5 % 0-12 Automated blood eosinophils/100 leukocytes 1 % 0-10 Automated blood basophils/100 leukocytes 0 % 0-10 Blood neutrophils automated count (number/volume) 5.5 10*3 1.8-7.8 Blood lymphocytes automated count (number/volume) 4.3 10*3 1.0-4.0 Blood monocytes automated count (number/volume) 0.6 10*3 0.0-1.0 Automated eosinophil count 0.1 10*3/uL 0.0-0.3 Automated blood basophil count (count/volume) 0.0 10*3/uL 0.0-0.1 Comprehensive metabolic panel - 04/05/16 06:03 Serum or plasma sodium measurement (moles/volume) 139 mmol/L 135-145 Serum or plasma potassium measurement (moles/volume) 3.5 mmol/L 3.6-5.0 Serum or plasma chloride measurement (moles/volume) 105 mmol/L 98-107 Carbon dioxide 27 mmol/L 21-32 Serum or plasma anion gap determination (moles/volume) 7 mmol/L 5-14 Serum or plasma urea nitrogen measurement (mass/volume) 10 mg/dL 7-18 Serum or plasma creatinine measurement (mass/volume) 0.71 mg/dL 0.60-1.30 Serum or plasma urea nitrogen/creatinine mass ratio 14 NRG Serum or plasma creatinine measurement with calculation of estimated glomerular filtration rate > NRG Serum or plasma glucose measurement (mass/volume) 114 mg/dL 70-105 Serum or plasma calcium measurement (mass/volume) 9.4 mg/dL 8.5-10.1 Serum or plasma total bilirubin measurement (mass/volume) 0.3 mg/dL 0.1-1.0 Serum or plasma alkaline phosphatase measurement (enzymatic activity/volume) 98 U/L 40-136 Serum or plasma aspartate aminotransferase measurement (enzymatic activity/ volume) 15 U/L 5-34 Serum or plasma alanine aminotransferase measurement (enzymatic activity/volume ) 15 U/L 0-55 Serum or plasma protein measurement (mass/volume) 6.9 g/dL 6.4-8.2 Serum or plasma albumin measurement (mass/volume) 4.3 g/dL 3.2-4.5 Serum or plasma amylase measurement (enzymatic activity/volume) - 04/05/16 06: 03 Serum or plasma amylase measurement (enzymatic activity/volume) 72 U /L 25-125 Lipase - 04/05/16 06:03 Lipase 37 U/L 8-78 Complete urinalysis with reflex to culture - 04/05/16 07:00 Urine color determination YELLOW NRG Urine clarity determination SLIGHTLY CLOUDY NRG Urine pH measurement by test strip 5 5-9 Specific gravity of urine by test strip 1.030 1.016- 1.022 Urine protein assay by test strip, semi-quantitative 2+ NEGATIVE Urine glucose detection by automated test strip 1+ NEGATIVE Erythrocytes detection in urine sediment by light microscopy 4+ NEGATIVE Urine ketones detection by automated test strip 1+ NEGATIVE Urine nitrite detection by test strip NEGATIVE NEGATIVE Urine total bilirubin detection by test strip NEGATIVE NEGATIVE Urine urobilinogen measurement by automated test strip (mass/volume) 1 mg/dL NORMAL Urine leukocyte esterase detection by dipstick 2+ NEGATIVE Automated urine sediment erythrocyte count by microscopy (number/high power field) [HPF] NRG Automated urine sediment leukocyte count by microscopy (number/high power field ) [HPF] NRG Bacteria detection in urine sediment by light microscopy MODERATE NRG Squamous epithelial cells detection in urine sediment by light microscopy 25-50 NRG Crystals detection in urine sediment by light microscopy PRESENT NRG Casts detection in urine sediment by light microscopy NONE NRG Mucus detection in urine sediment by light microscopy NEGATIVE NRG Complete urinalysis with reflex to culture YES NRG Uric acid crystals detection in urine sediment by light microscopy MODERATE NRG Urine drug screening test - 04/05/16 07:00 Urine phencyclidine detection by screening method NEGATIVE NEGATIVE Urine benzodiazepines detection by screening method NEGATIVE NEGATIVE Urine cocaine detection NEGATIVE NEGATIVE Urine amphetamines detection by screening method NEGATIVE NEGATIVE Urine methamphetamine detection by screening method NEGATIVE NEGATIVE Urine cannabinoids detection by screening method POSITIVE NEGATIVE Urine opiates detection by screening method NEGATIVE NEGATIVE Urine barbiturates detection NEGATIVE NEGATIVE Screening urine tricyclic antidepressants detection NEGATIVE NEGATIVE Urine methadone detection by screening method NEGATIVE NEGATIVE Urine oxycodone detection POSITIVE NEGATIVE Urine propoxyphene detection NEGATIVE NEGATIVE Bacterial urine culture - 04/05/16 07:00 URINE CULTURE RESULTS <10,000/ML NRG Complete blood count (CBC) with automated white blood cell (WBC) differential - 04/07/16 14:10 Blood leukocytes automated count (number/volume) 7.0 10*3/uL 4.3-11.0 Blood erythrocytes automated count (number/volume) 4.00 10*6/uL 4.35-5.85 Venous blood hemoglobin measurement (mass/volume) 13.6 g/dL 11.5-16.0 Blood hematocrit (volume fraction) 39 % 35-52 Automated erythrocyte mean corpuscular volume 98 [foz_us] 80-99 Automated erythrocyte mean corpuscular hemoglobin (mass per erythrocyte) 34 pg 25-34 Automated erythrocyte mean corpuscular hemoglobin concentration measurement ( mass/volume) 35 g/dL 32-36 Automated erythrocyte distribution width ratio 12.5 % 10.0-14.5 Automated blood platelet count (count/volume) 145 10*3/uL 130-400 Automated blood platelet mean volume measurement 10.8 [foz_us] 7.4-10.4 Automated blood neutrophils/100 leukocytes 49 % 42-75 Automated blood lymphocytes/100 leukocytes 41 % 12-44 Blood monocytes/100 leukocytes 7 % 0-12 Automated blood eosinophils/100 leukocytes 3 % 0-10 Automated blood basophils/100 leukocytes 0 % 0-10 Blood neutrophils automated count (number/volume) 3.4 10*3 1.8-7.8 Blood lymphocytes automated count (number/volume) 2.9 10*3 1.0-4.0 Blood monocytes automated count (number/volume) 0.5 10*3 0.0-1.0 Automated eosinophil count 0.2 10*3/uL 0.0-0.3 Automated blood basophil count (count/volume) 0.0 10*3/uL 0.0-0.1 Complete urinalysis with reflex to culture - 04/07/16 14:10 Urine color determination YELLOW NRG Urine clarity determination CLEAR NRG Urine pH measurement by test strip 6 5-9 Specific gravity of urine by test strip 1.015 1.016- 1.022 Urine protein assay by test strip, semi-quantitative 1+ NEGATIVE Urine glucose detection by automated test strip NEGATIVE NEGATIVE Erythrocytes detection in urine sediment by light microscopy 4+ NEGATIVE Urine ketones detection by automated test strip NEGATIVE NEGATIVE Urine nitrite detection by test strip NEGATIVE NEGATIVE Urine total bilirubin detection by test strip NEGATIVE NEGATIVE Urine urobilinogen measurement by automated test strip (mass/volume) NORMAL NORMAL Urine leukocyte esterase detection by dipstick NEGATIVE NEGATIVE Automated urine sediment erythrocyte count by microscopy (number/high power field) [HPF] NRG Automated urine sediment leukocyte count by microscopy (number/high power field ) NONE NRG Bacteria detection in urine sediment by light microscopy NEGATIVE NRG Squamous epithelial cells detection in urine sediment by light microscopy RARE NRG Crystals detection in urine sediment by light microscopy NONE NRG Casts detection in urine sediment by light microscopy NONE NRG Mucus detection in urine sediment by light microscopy NEGATIVE NRG Complete urinalysis with reflex to culture NO NRG Comprehensive metabolic panel - 04/07/16 14:10 Serum or plasma sodium measurement (moles/volume) 138 mmol/L 135-145 Serum or plasma potassium measurement (moles/volume) 4.1 mmol/L 3.6-5.0 Serum or plasma chloride measurement (moles/volume) 100 mmol/L 98-107 Carbon dioxide 32 mmol/L 21-32 Serum or plasma anion gap determination (moles/volume) 6 mmol/L 5-14 Serum or plasma urea nitrogen measurement (mass/volume) 8 mg/dL 7-18 Serum or plasma creatinine measurement (mass/volume) 0.69 mg/dL 0.60-1.30 Serum or plasma urea nitrogen/creatinine mass ratio 12 NRG Serum or plasma creatinine measurement with calculation of estimated glomerular filtration rate > NRG Serum or plasma glucose measurement (mass/volume) 84 mg/dL 70-105 Serum or plasma calcium measurement (mass/volume) 9.1 mg/dL 8.5-10.1 Serum or plasma total bilirubin measurement (mass/volume) 0.4 mg/dL 0.1-1.0 Serum or plasma alkaline phosphatase measurement (enzymatic activity/volume) 88 U/L 40-136 Serum or plasma aspartate aminotransferase measurement (enzymatic activity/ volume) 15 U/L 5-34 Serum or plasma alanine aminotransferase measurement (enzymatic activity/volume ) 16 U/L 0-55 Serum or plasma protein measurement (mass/volume) 6.5 g/dL 6.4-8.2 Serum or plasma albumin measurement (mass/volume) 4.0 g/dL 3.2-4.5 Serum or plasma C reactive protein measurement (mass/volume) - 04/07/16 14:10 Serum or plasma C reactive protein measurement (mass/volume) 0.31 mg /dL 0.00-0.50 Arterial blood gas measurement - 10/12/16 13:50 Blood pCO2 52 mm[Hg] 35-45 Blood pO2 52 mm[Hg] 79-93 Arterial blood bicarbonate measurement (moles/volume) 27 mmol/L 23-27 Arterial blood base excess by calculation 1.5 mmol/L -2.5 -2.5 Arterial blood oxygen saturation measurement 89 % 94-100 * Inhaled oxygen flow rate ROOM AIR NRG Arterial blood pH measurement with patient temperature correction 7.33 7.37-7.43 Arterial blood carbon dioxide, total measurement (moles/volume) 28.7 mmol/L 21.0-31.0 Body site RIGHT BRACHIAL NRG Assessment of wrist artery patency prior to arterial puncture NA NRG Setting of ventilation mode NO NRG Measurement of body temperature 96.6 NRG Complete urinalysis with reflex to culture - 11/07/16 08:22 Urine color determination YELLOW NRG Urine clarity determination CLEAR NRG Urine pH measurement by test strip 6 5-9 Specific gravity of urine by test strip 1.025 1.016- 1.022 Urine protein assay by test strip, semi-quantitative NEGATIVE NEGATIVE Urine glucose detection by automated test strip NEGATIVE NEGATIVE Erythrocytes detection in urine sediment by light microscopy 2+ NEGATIVE Urine ketones detection by automated test strip NEGATIVE NEGATIVE Urine nitrite detection by test strip NEGATIVE NEGATIVE Urine total bilirubin detection by test strip NEGATIVE NEGATIVE Urine urobilinogen measurement by automated test strip (mass/volume) NORMAL NORMAL Urine leukocyte esterase detection by dipstick 1+ NEGATIVE Automated urine sediment erythrocyte count by microscopy (number/high power field) [HPF] NRG Automated urine sediment leukocyte count by microscopy (number/high power field ) [HPF] NRG Bacteria detection in urine sediment by light microscopy FEW NRG Squamous epithelial cells detection in urine sediment by light microscopy 10-25 NRG Crystals detection in urine sediment by light microscopy NONE NRG Casts detection in urine sediment by light microscopy NONE NRG Mucus detection in urine sediment by light microscopy NEGATIVE NRG Complete urinalysis with reflex to culture YES NRG Bacterial urine culture - 11/07/16 08:22 URINE CULTURE RESULTS <10,000/ML NRG Complete blood count (CBC) with automated white blood cell (WBC) differential - 11/07/16 08:45 Blood leukocytes automated count (number/volume) 7.0 10*3/uL 4.3-11.0 Blood erythrocytes automated count (number/volume) 4.33 10*6/uL 4.35-5.85 Venous blood hemoglobin measurement (mass/volume) 14.5 g/dL 11.5-16.0 Blood hematocrit (volume fraction) 42 % 35-52 Automated erythrocyte mean corpuscular volume 96 [foz_us] 80-99 Automated erythrocyte mean corpuscular hemoglobin (mass per erythrocyte) 34 pg 25-34 Automated erythrocyte mean corpuscular hemoglobin concentration measurement ( mass/volume) 35 g/dL 32-36 Automated erythrocyte distribution width ratio 12.4 % 10.0-14.5 Automated blood platelet count (count/volume) 136 10*3/uL 130-400 Automated blood platelet mean volume measurement 10.6 [foz_us] 7.4-10.4 Automated blood neutrophils/100 leukocytes 50 % 42-75 Automated blood lymphocytes/100 leukocytes 42 % 12-44 Blood monocytes/100 leukocytes 6 % 0-12 Automated blood eosinophils/100 leukocytes 2 % 0-10 Automated blood basophils/100 leukocytes 0 % 0-10 Blood neutrophils automated count (number/volume) 3.5 10*3 1.8-7.8 Blood lymphocytes automated count (number/volume) 2.9 10*3 1.0-4.0 Blood monocytes automated count (number/volume) 0.4 10*3 0.0-1.0 Automated eosinophil count 0.2 10*3/uL 0.0-0.3 Automated blood basophil count (count/volume) 0.0 10*3/uL 0.0-0.1 Comprehensive metabolic panel - 11/07/16 08:45 Serum or plasma sodium measurement (moles/volume) 138 mmol/L 135-145 Serum or plasma potassium measurement (moles/volume) 3.8 mmol/L 3.6-5.0 Serum or plasma chloride measurement (moles/volume) 101 mmol/L 98-107 Carbon dioxide 23 mmol/L 21-32 Serum or plasma anion gap determination (moles/volume) 14 mmol/L 5-14 Serum or plasma urea nitrogen measurement (mass/volume) 18 mg/dL 7-18 Serum or plasma creatinine measurement (mass/volume) 0.81 mg/dL 0.60-1.30 Serum or plasma urea nitrogen/creatinine mass ratio 22 NRG Serum or plasma creatinine measurement with calculation of estimated glomerular filtration rate > NRG Serum or plasma glucose measurement (mass/volume) 107 mg/dL 70-105 Serum or plasma calcium measurement (mass/volume) 9.9 mg/dL 8.5-10.1 Serum or plasma total bilirubin measurement (mass/volume) 0.4 mg/dL 0.1-1.0 Serum or plasma alkaline phosphatase measurement (enzymatic activity/volume) 114 U/L 40-136 Serum or plasma aspartate aminotransferase measurement (enzymatic activity/ volume) 17 U/L 5-34 Serum or plasma alanine aminotransferase measurement (enzymatic activity/volume ) 18 U/L 0-55 Serum or plasma protein measurement (mass/volume) 7.2 g/dL 6.4-8.2 Serum or plasma albumin measurement (mass/volume) 4.2 g/dL 3.2-4.5 Lipase - 11/07/16 08:45 Lipase 28 U/L 8-78 Complete urinalysis with reflex to culture - 12/15/16 18:02 Urine color determination YELLOW NRG Urine clarity determination CLEAR NRG Urine pH measurement by test strip 6 5-9 Specific gravity of urine by test strip 1.010 1.016- 1.022 Urine protein assay by test strip, semi-quantitative NEGATIVE NEGATIVE Urine glucose detection by automated test strip NEGATIVE NEGATIVE Erythrocytes detection in urine sediment by light microscopy 1+ NEGATIVE Urine ketones detection by automated test strip NEGATIVE NEGATIVE Urine nitrite detection by test strip NEGATIVE NEGATIVE Urine total bilirubin detection by test strip NEGATIVE NEGATIVE Urine urobilinogen measurement by automated test strip (mass/volume) NORMAL NORMAL Urine leukocyte esterase detection by dipstick NEGATIVE NEGATIVE Automated urine sediment erythrocyte count by microscopy (number/high power field) NONE NRG Automated urine sediment leukocyte count by microscopy (number/high power field ) RARE NRG Bacteria detection in urine sediment by light microscopy NEGATIVE NRG Squamous epithelial cells detection in urine sediment by light microscopy 5-10 NRG Crystals detection in urine sediment by light microscopy NONE NRG Casts detection in urine sediment by light microscopy NONE NRG Mucus detection in urine sediment by light microscopy NEGATIVE NRG Complete urinalysis with reflex to culture NO NRG Encounters ACCT No. Visit Date/Time Discharge Status Pt. Type Provider Facility Loc./Unit Complaint [id number] 07/18/2014 13:49:00 07/18/2014 23:59:59 CLS Outpatient FADUMO HICKEY DO [id number] 06/27/2014 13:42:00 06/27/2014 23:59:59 CLS Outpatient HAZEL GARCIA MD [id number] 03/22/2014 14:59:00 03/22/2014 23:59:59 CLS Outpatient HAZEL GARCIA MD [id number] 03/22/2014 14:59:00 03/22/2014 23:59:59 CLS Outpatient HAZEL GARCIA MD [id number] 03/15/2014 15:41:00 03/15/2014 23:59:59 CLS Outpatient FADUMO HICKEY DO [id number] 02/13/2014 00:00:00 02/13/2014 23:59:59 CLS Outpatient HAZEL GARCIA MD [id number] 12/11/2013 13:57:00 12/11/2013 23:59:59 CLS Outpatient HAZEL GARCIA MD [id number] 11/08/2013 14:36:00 11/08/2013 23:59:59 CLS Outpatient HAZEL GARCIA MD [id number] 10/09/2013 14:02:00 10/09/2013 23:59:59 CLS Outpatient HAZEL GARCIA MD [id number] 07/19/2013 08:54:00 07/19/2013 23:59:59 CLS Outpatient [id number] 07/11/2013 14:37:00 07/11/2013 23:59:59 CLS Outpatient HAZEL GARCIA MD [id number] 06/05/2013 15:27:00 06/05/2013 23:59:59 CLS Outpatient HAZEL GARCIA MD [id number] 06/05/2013 15:27:00 06/05/2013 23:59:59 CLS Outpatient HAZEL GARCIA MD [id number] 05/10/2013 14:37:00 05/10/2013 23:59:59 CLS Outpatient JUSTICE TRIPATHI APRN [id number] 05/01/2013 15:14:00 05/01/2013 23:59:59 CLS Outpatient HAZEL GARCIA MD [id number] 05/01/2013 15:14:00 05/01/2013 23:59:59 CLS Outpatient HAZEL GARCIA MD [id number] 03/27/2013 15:20:00 03/27/2013 23:59:59 CLS Outpatient HAZEL GARCIA MD [id number] 03/27/2013 15:20:00 03/27/2013 23:59:59 CLS Outpatient HAZEL GARCIA MD [id number] 03/13/2013 13:14:00 03/13/2013 23:59:59 CLS Outpatient ANDERSON SEGURA PSYD [id number] 02/06/2013 14:09:00 02/06/2013 23:59:59 CLS Outpatient FADUMO HICKEY DO [id number] 02/06/2013 14:09:00 02/06/2013 23:59:59 CLS Outpatient FADUMO HICKEY DO [id number] 12/28/2012 16:14:00 12/28/2012 23:59:59 CLS Outpatient ANDERSON SEGURA PSYD [id number] 06/20/2012 13:54:00 06/20/2012 23:59:59 CLS Outpatient HERMINIA SEGURA MD [id number] 06/20/2012 13:54:00 06/20/2012 23:59:59 CLS Outpatient [id number] 05/01/2012 16:50:00 05/01/2012 23:59:59 CLS Outpatient HERMINIA SEGURA MD [id number] 04/10/2012 08:15:00 04/10/2012 23:59:59 CLS Outpatient [id number] 02/01/2012 13:55:00 02/01/2012 23:59:59 CLS Outpatient [id number] 02/01/2012 13:55:00 02/01/2012 23:59:59 CLS Outpatient [id number] 12/09/2012 11:08:00 Document Registration [id number] 11/14/2012 16:25:00 Document Registration [id number] 08/08/2012 14:35:00 Document Registration [id number] 03/31/2017 14:48:00 03/31/2017 23:59:59 CLS Outpatient JOSE GARZA Via 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 Via [facility] ER ABDOMINAL/BACK PAIN [id number] 11/07/2016 07:59:00 11/07/2016 13:50:00 DIS Emergency NICOLE POLLARD, MARIBELL Jones Via [facility] ER BACK PAIN [id number] 10/12/2016 15:24:00 10/12/2016 23:59:59 CLS Outpatient MIKAL BRUNNER DO Via [facility] RT J44.9 M32.9 [id number] 10/11/2016 13:48:00 10/11/2016 23:59:59 CLS Outpatient RICARDO CHACKO [employer] Via [facility] RAD LUMP OF RT BREAST N63 [id number] 09/21/2016 14:00:00 09/21/2016 14:37:00 DIS Outpatient 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 Via [facility] SLEEP JUDI [id number] 04/07/2016 12:56:00 04/07/2016 16:56:00 DIS Emergency JENNY MARIE MD Via [facility] ER UTI SYMPTOMS ELEV BP/ PULSE [id number] 04/05/2016 05:03:00 04/05/2016 07:45:00 DIS Emergency FLORIAN OSULLIVAN DO Via [facility] ER POSSIBLE KIDNEY STONES [id number] 12/18/2015 10:58:00 03/17/2016 00:01:00 DIS Outpatient JOSE GARZA Via [facility] ONC [id number] 01/16/2016 16:34:00 01/16/2016 21:27:00 DIS Emergency JENNY MARIE MD Via [facility] ER BOWEL PROBLLEMS [id number] 11/05/2015 16:09:00 11/05/2015 23:59:59 CLS Outpatient JOSE GARZA Via [facility] LABNPT HYPER COAGULATION [id number] 10/13/2015 13:33:00 10/13/2015 16:33:00 DIS Emergency COLIN POLLARD, RODNEY Rai Via [facility] ER CHEST/LEFT ARM/JAW PAIN [id number] 06/04/2015 14:12:00 08/25/2015 00:01:00 DIS Outpatient JOSE GARZA Via [facility] ONC [id number] 07/14/2015 23:16:00 07/15/2015 02:40:00 DIS Emergency COLIN POLLARD, RODNEY Rai Via [facility] ER LOWER BACK HIP PAIN [id number] 07/03/2015 12:23:00 07/03/2015 23:59:59 CLS Outpatient MILEY SANCHEZ [employer] Via [facility] RAD THORAICALGIA [id number] 06/03/2015 13:07:00 06/03/2015 23:59:59 CLS Outpatient RICARDO CHACKO [employer] [facility] ONC [id number] 03/31/2015 13:02:00 03/31/2015 23:59:59 CLS Outpatient DANIEL PORTER DO Via [facility] RAD LUMBAGO,RADICULOPATHY [id number] 10/28/2014 08:04:00 10/30/2014 00:01:00 DIS Outpatient JOSE GARZA Via [facility] ONC [id number] 08/30/2014 17:42:00 08/30/2014 23:59:59 CLS Outpatient MONICA POLLARD, MAI Alexandra Via [facility] LABNPT ANEMIA [id number] 08/13/2014 15:17:00 08/13/2014 23:05:00 DIS Inpatient COLTON POLLARD, HERMINIA Guzman Via [facility] 4TH N/V;COPD;ABD PAIN [id number] 05/10/2014 10:06:00 07/30/2014 00:01:00 DIS Outpatient JOSE GARZA Via [facility] ONC [id number] 07/16/2014 08:48:00 07/16/2014 23:59:59 CLS Outpatient HAZEL GARCIA MD Via [facility] RAD ELEVATED LIVER ENZYMES [id number] 07/15/2014 09:30:00 07/15/2014 23:59:59 CLS Preadmit HAZEL GARCIA MD Via [facility] RAD OROPHARYNGEAL DYSPHAGIA [id number] 07/12/2014 11:00:00 07/12/2014 23:59:59 CLS Outpatient HAZEL GARCIA MD Via [facility] LABNPT UTI [id number] 05/16/2014 17:20:00 05/16/2014 20:30:00 DIS Emergency JEWELS ROMANO Via [facility] ER POSS BLOOD CLOT [id number] 02/19/2014 13:11:00 02/19/2014 23:59:59 CLS Outpatient RICARDO CHACKO [employer] Via [facility] ONC [id number] 10/24/2013 10:25:00 01/15/2014 00:01:00 DIS Outpatient JOSE GARZA Via [facility] ONC [id number] 10/21/2013 13:47:00 10/21/2013 17:32:00 DIS Emergency PATRICE PAREDES APRN Via [facility] ER L LEG PAIN [id number] 10/17/2013 13:30:00 10/17/2013 23:59:59 CLS Outpatient CANDE GRIFFIN MD Via [facility] RAD LUMBAGO [id number] 10/15/2013 17:48:00 10/15/2013 23:59:59 CLS Outpatient HAZEL GARCIA MD Via [facility] LABNPT SPASM OF MUSCLES [id number] 08/27/2013 14:07:00 08/27/2013 23:59:59 CLS Outpatient MIKAL BRUNNER DO Via [facility] RT COPD,ASTHMA [id number] 06/11/2013 13:49:00 08/05/2013 00:01:00 DIS Outpatient MONICO VALLE MD Via [facility] ONC [id number] 07/03/2013 00:06:00 07/03/2013 02:37:00 DIS Emergency COLIN POLLARD, RODNEY Rai Via [facility] ER L EYE PAIN,NAUSEA [id number] 01/11/2013 15:31:00 04/11/2013 00:01:00 DIS Outpatient MONICO VALLE MD Via [facility] ONC [id number] 12/14/2012 15:12:00 12/14/2012 23:59:59 CLS Outpatient MONICO VALLE MD Via [facility] ONC [id number] 11/22/2012 06:00:00 11/23/2012 12:35:00 DIS Outpatient MAI ANDERSON MD Via [facility] SDC INCISIONAL HERNIA X3 [id number] 11/20/2012 10:26:00 11/20/2012 23:59:59 CLS Outpatient MAI ANDERSON MD Via [facility] PREOP INCISIONAL HERNIA X3 [id number] 11/14/2012 10:56:00 11/14/2012 23:59:59 CLS Outpatient [id number] 11/14/2012 11:08:00 11/14/2012 11:44:00 DIS Emergency CYNTHIA POLLARD, JENNY Zarate [facility] ER BACK PAIN [id number] 05/16/2014 12:32:00 Document Registration [id number] 07/17/2012 16:14:00 Document Registration [id number] 06/12/2012 13:12:00 Document Registration [id number] 04/20/2012 07:25:00 Document Registration [id number] 04/14/2012 10:17:00 Document Registration [id number] 04/02/2012 16:11:00 Document Registration [id number] 03/22/2012 02:00:00 Document Registration [id number] 10/29/2011 15:30:00 Document Registration [id number] 09/15/2011 20:41:00 Document Registration [id number] 08/29/2011 09:57:00 Document Registration [id number] 08/17/2011 03:30:00 Document Registration [id number] 05/16/2011 12:59:00 Document Registration [id number] 05/06/2011 09:02:00 Document Registration [id number] 05/05/2011 10:14:00 Document Registration [id number] 05/03/2011 12:42:00 Document Registration [id number] 05/03/2011 04:10:00 Document Registration [id number] 04/26/2011 10:35:00 Document Registration [id number] 04/25/2011 02:52:00 Document Registration [id number] 04/21/2011 09:49:00 Document Registration [id number] 04/08/2011 14:16:00 Document Registration [id number] 03/06/2011 10:42:00 Document Registration [id number] 02/22/2011 12:20:00 Document Registration [id number] 02/19/2011 08:19:00 Document Registration [id number] 02/11/2011 12:42:00 Document Registration [id number] 02/04/2011 14:52:00 Document Registration [id number] 01/18/2011 14:16:00 Document Registration [id number] 11/30/2010 14:27:00 Document Registration [id number] 11/28/2010 19:46:00 Document Registration [id number] 11/26/2010 15:23:00 Document Registration [id number] 11/24/2010 14:12:00 Document Registration [id number] 10/25/2010 21:40:00 Document Registration [id number] 10/21/2010 01:00:00 Document Registration [id number] 10/19/2010 08:34:00 Document Registration
--- NOTE | 2017-06-07 20:42 | Diagnostic Imaging Report ---
INDICATION: Right-sided rib pain post fall. Shortness of breath. TECHNIQUE: 3 views right ribs 8:53 PM. CORRELATION STUDY: Chest 01/10/2017 FINDINGS: No acute displaced right rib fracture. Blunting of the right costophrenic angle again demonstrated and could be reflective of chronic pleural thickening. Right lung has chronic senescent type changes but overall otherwise relatively clear. There is presence of an inferior vena cava filter. A stent over the left hemipelvis. Left-sided central line courses over the stents and inferior vena cava tip terminates in the expected location of the inferior cava right atrial margins. Surgical changes with multiple suture lines and clips within the pelvis with air-fluid level noted in the bowel. IMPRESSION: 1. Negative for acute displaced right rib fracture. Likely chronic pleural thickening in the right costophrenic angle. Dictated by: Dictated on workstation # [id number]
--- NOTE | 2017-06-07 20:49 | ED Upper Extremity ---
General Chief Complaint: Trauma-Non Activation Stated Complaint: FALL WITH R SIDE AND BACK PAIN, HURTS TO BREATHE Nursing Triage Note: SEE TRAUMA NOTE. Nursing Sepsis Screen: No Definite Risk History of Present Illness Date Seen by Provider: Jun 07, 2017 Time Seen by Provider: 20:10 Initial Comments 51-year-old female presents with right rib pain. She states she was walking down her ramp at home when she slipped and fell with her right ribs onto the railing. She denies any head injury or loss of consciousness. She's had no previous history of rib injuries but she has multiple chronic respiratory issues. Per K Tracs she is getting morphine extended release 15 mg and morphine extended release 30 mg approximately every 3-4 weeks. She reports taking her morphine at 1500 today and she is due for her next dose in 2-3 hours. SHe has been using a pillow to splint the area where it is hurting on her ribs. She does complain of dyspnea with deep breathing. Location Injury Occurred: PT HOME Onset: just prior to arrival Pain/Injury Location: right other Method of Injury: fell Modifying Factors: Improves With Rest Allergies and Home Medications Allergies Coded Allergies: droperidol (Unverified Allergy, Severe, SOB, 02/22/11) ranitidine HCl (Verified Allergy, Intermediate, SOB, DIAPHORETIC, 02/22/11) Soap (Unverified Allergy, Unknown, RASH, 07/03/13) aspirin (Verified Allergy, Unknown, 07/03/13) codeine (Verified Allergy, Unknown, 07/03/13) ketorolac tromethamine (Verified Allergy, Unknown, 07/03/13) metoclopramide HCl (Unverified Allergy, Unknown, 07/03/13) povidone-iodine (Unverified Allergy, Unknown, RASH, 07/03/13) prochlorperazine edisylate (Unverified Allergy, Unknown, 07/03/13) prochlorperazine maleate (Unverified Allergy, Unknown, 07/03/13) sumatriptan (Verified Allergy, Unknown, 07/03/13) sumatriptan succinate (Verified Allergy, Unknown, 07/03/13) Home Medications Albuterol Sulfate 2.5 Mg/3 Ml Solution, 2.5 MG IH Q4HR PRN, (Reported) NEEDED FOR SHORTNESS OF BREATH Budesonide/Formoterol Fumarate 10.2 Gm Hfa.aer.ad, 2 PUFF IH BID, (Reported) Cholecalciferol 5,000 Unit Tablet, 5,000 UNIT PO 1200, (Reported) Gabapentin 800 Mg Tablet, 800 MG PO TID, (Reported) Levothyroxine Sodium 75 Mcg Tablet, 75 MCG PO DAILY @ 0800, (Reported) Lisinopril 40 Mg Tablet, 40 MG PO DAILY, (Reported) Omeprazole 20 Mg Capsule.dr, 20 MG PO EVERY AFTERNOON, (Reported) Ondansetron 8 Mg Tab.rapdis, 8 MG SL Q8H PRN for NAUSEA/VOMITING, (Reported) Oxycodone HCl 5 Mg Tablet, #120 (Reported) Oxycodone HCl 20 Mg Tab.er.12h, #60 (Reported) Oxycodone Hcl 20 Mg Tab.sr.12h, 20 MG PO BID, (Reported) Potassium Chloride 10 Meq Capsule.sa, 10 MEQ PO DAILY, (Reported) Rivaroxaban 20 Mg Tablet, 20 MG PO DAILY, (Reported) Sennosides/Docusate Sodium 1 Each Tablet, 2 EACH PO BID, #120 Ref 0 Prescribed by: JENNY MARIE on 04/07/16 1641 Simvastatin 20 Mg Tablet, 20 MG PO HS, (Reported) Varenicline Tartrate 1 Each Tab.ds.pk, Unknown Dose PO, (Reported) [Cinnamon] , 2 CAP PO BID, (Reported) [Patanol Opth. Drops] , 2 DROPS OU DAILY PRN, (Reported) two drops to eyes as needed for allergy symptoms Constitutional: no symptoms reported, see HPI Respiratory: see HPI, other (rib pain, right) All Other Systems Reviewed Negative Unless Noted: Yes Past Vfkxkle-Moxlsv-Zwkbau Hx Patient Social History Alcohol Use: Denies Use Recreational Drug Use: No Smoking Status: Current Everyday Smoker Type Used: Cigarettes 2nd Hand Smoke Exposure: No Recent Foreign Travel: No Contact w/Someone Who Travel: No Recent Infectious Disease Expo: No Recent Hopitalizations: No Immunizations Up To Date Tetanus Booster (TDap): Less than 5yrs Date of Pneumonia Vaccine: Jan 16, 2014 Date of Influenza Vaccine: Jan 17, 2016 Seasonal Allergies Seasonal Allergies: No Surgeries History of Surgeries: Yes Surgeries: Abdominal, Appendectomy, Bowel Surgery, Cardiac, Eye Surgery, Gallbladder, Hysterectomy, Oophorectomy, Orthopedic, Vascular Surgery Respiratory History of Respiratory Disorde: Yes (O2 AND CPAP) Respiratory Disorders: Asthma, Chronic Bronchitis, Pulmonary Embolism, Sleep Apnea, COPD Cardiovascular History of Cardiac Disorders: Yes (MULTIPLE DVT'S IN ARMS AND LEGS, 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 Genitourinary Genitourinary Disorders: Kidney Stones, Renal Failure Gastrointestinal History of Gastrointestinal Di: Yes Gastrointestinal Disorders: Gastroesophageal Reflux, Obstructive Bowel, Pancreatitis, Gall Bladder Disease Musculoskeletal History of Musculoskeletal Dis: Yes (CHRONIC GENERALIZED PAIN--NARCOTIC DEPENDENT) Musculoskeletal Disorders: Arthritis, Chronic Back Pain Endocrine History of Endocrine Disorders: Yes Endocrine Disorders: Diabetes, Insulin dep, Hypothyroidsim, Lupus HEENT Hearing Impairment: Denies Cancer History of Cancer: No Psychosocial History of Psychiatric Problem: Yes Behavioral Health Disorders: Anxiety, Depression Integumentary History of Skin or Integumenta: No Blood Transfusions History of Blood Disorders: Yes (DVT'S/P.E.'S ; PAD) Adverse Reaction to a Blood Tr: No Reviewed Nursing Assessment Reviewed/Agree w Nursing PMH: Yes Family Medical History Significant Family History: Heart Disease, Cancer, GI Disease Family Medial History: Asthma 19 FATHER G8 SISTER Diabetes mellitus G8 SISTER Hypercholesterolemia G8 SISTER Hypertension G8 SISTER Kidney disease 19 MOTHER Myocardial infarction 19 FATHER No Family History of: AIDS Abdominal aortic aneurysm Starbuck's disease Alcoholism Alzheimer's disease Aphasia Arthritis Cancer of mouth Cardiovascular disease Cataracts Colon cancer Completed stroke Congenital disease Congenital heart disease Coronary thrombosis Cystic fibrosis Deafness or hearing loss Dementia Drug abuse Dysphasia Fibrocystic disease of breast Gastroenteritis Glaucoma Headache disorder Infertility Neoplasm Not obtainable due to adoption Osteoporosis Parkinson's disease Prostate cancer Psychosocial problem Respiratory disorder Seizure disorder Severe allergy Thyroid disease Tuberculosis Visual disorder Physical Exam Vital Signs Vital Signs - First Documented 06/07/17 19:55 Temp 97.6 Pulse 86 Resp 16 B/P (MAP) 137/99 (112) Pulse Ox 97 O2 Delivery Room Air Capillary Refill : Less Than 3 Seconds General Appearance: WD/WN, no apparent distress Neck: non-tender, full range of motion, supple, normal inspection Cardiovascular: normal peripheral pulses, regular rate, rhythm, no murmur Respiratory: lungs clear, normal breath sounds, no respiratory distress, other (chest tender along the mid to lower lateral ribs) Gastrointestinal: normal bowel sounds, non tender, soft Neurologic/Psychiatric: no motor/sensory deficits, alert, normal mood/affect, oriented x 3 Progress/Results/Core Measures Results/Orders My Orders Orders - EVERETT ERNST Ribs, Right 2-3 Views (06/07/17 20:24) Vital Signs/I&O Vital Sign - Last 12Hours 06/07/17 06/07/17 19:55 21:00 Temp 97.6 97.6 Pulse 86 86 Resp 16 16 B/P (MAP) 137/99 (112) 137/99 (112) Pulse Ox 97 97 O2 Delivery Room Air Blood Pressure Mean: 112 Diagnostic Imaging Diagonstic Imaging: Xray Plain Films/CT/US/NM/MRI: other (ribs) Comments NAME: MEGAN SOSA [facility] REC#: [id number] PT STATUS: REG ER : 1965 PHYSICIAN: EVERETT ERNST ADMIT DATE: 06/07/17/ER Draft Date of Exam:06/07/17 RIBS, RIGHT 2-3 VIEWS INDICATION: Right-sided rib pain post fall. Shortness of breath. TECHNIQUE: 3 views right ribs 8:53 PM. CORRELATION STUDY: Chest 01/10/2017 FINDINGS: No acute displaced right rib fracture. Blunting of the right costophrenic angle again demonstrated and could be reflective of chronic pleural thickening. Right lung has chronic senescent type changes but overall otherwise relatively clear. There is presence of an inferior vena cava filter. A stent over the left hemipelvis. Left-sided central line courses over the stents and inferior vena cava tip terminates in the expected location of the inferior cava right atrial margins. Surgical changes with multiple suture lines and clips within the pelvis with air-fluid level noted in the bowel. IMPRESSION: 1. Negative for acute displaced right rib fracture. Likely chronic pleural thickening in the right costophrenic angle. Dictated on workstation # [id number] Dict: 06/07/172034 Trans: 06/07/172041 [facility] [phone] Interpreted by: JORI BARCENAS DO Electronically signed by: Departure Impression Impression: Primary Impression: Contusion of rib on right side Qualified Codes: S20.211A - Contusion of right front wall of thorax, initial encounter Disposition: HOME, SELF-CARE Condition: Stable Departure-Patient Inst. Decision time for Depature: 20:50 Referrals: LILLIANA ARRIAGA MD (PCP/Family) Primary Care Physician Patient Instructions: RIB CONTUSION Add. Discharge Instructions: Continue to usual morphine you already have at home Warm moist compresses to the right ribs as needed. Follow up with your primary care provider if symptoms are not improving. Return to emergency department for increased pain, difficulty breathing, or new problems. Continue to use a pillow to splint the ribs. Every hour take 5-10 deep breaths and cough. All discharge instructions reviewed with patient and/or family. Voiced understanding. Copy Copies To 1: FADUMO HICKEY AMY ARNP Jun 07, 2017 20:49
[2017-06-07 21:00] VITALS: BP 137/99
== END 2017-06-07 21:00 | disposition home or self-care (01) ==
LOC: EDUNIT# 19:15 → ER 19:17
DX: S20.211A Contusion of right front wall of thorax, initial encounter (principal); F41.9 Anxiety disorder, unspecified; F32.9 Major depressive disorder, single episode, unspecified; E11.40 Type 2 diabetes mellitus with diabetic neuropathy, unspecified; E03.9 Hypothyroidism, unspecified; E78.00 Pure hypercholesterolemia, unspecified; K21.9 Gastro-esophageal reflux disease without esophagitis; I10 Essential (primary) hypertension; J44.9 Chronic obstructive pulmonary disease, unspecified; F17.210 Nicotine dependence, cigarettes, uncomplicated; Z86.711 Personal history of pulmonary embolism; Z86.718 Personal history of other venous thrombosis and embolism; Z90.710 Acquired absence of both cervix and uterus; Z87.442 Personal history of urinary calculi; Z90.49 Acquired absence of other specified parts of digestive tract; Z88.5 Allergy status to narcotic agent; Z88.6 Allergy status to analgesic agent; Z88.1 Allergy status to other antibiotic agents; Z88.8 Allergy status to other drugs, medicaments and biological substances; Z99.81 Dependence on supplemental oxygen; W10.2XXA Fall (on)(from) incline, initial encounter; Y92.009 Unspecified place in unspecified non-institutional (private) residence as the place of occurrence of the external cause
CPT/HCPCS: 71100

== ENCOUNTER → 2017-07-27 | Outpatient (CLI) | payer MEDICARE, MEDICAID ==
--- NOTE | 2017-07-28 16:18 | RADIOLOGY REPORT ---
NAME: MEGAN SOSA [facility] REC#: [id number] PT STATUS: REG CLI : 1965 PHYSICIAN: MAI EDWARDS MD ADMIT DATE: 07/27/17/RAD CORRECTED Signed Date of Exam:07/27/17 CHEST PA/LAT (2 VIEW) INDICATION: COPD. COMPARISON: 01/10/2017. FINDINGS: Two views of the chest are obtained. Heart size is normal. The pulmonary vessels appear unremarkable. There is no pneumothorax, mediastinal widening, or pleural fluid. There is blunting of the right costophrenic angle which is unchanged and may represent scarring. The diaphragms are flattened consistent with COPD. The lungs are otherwise clear. Femoral central line is unchanged. Vena cava filter not appreciated today. The osseous structures appear unremarkable. IMPRESSION: No acute abnormality is seen. No interval change from the prior study. Dictated by: Dictated on workstation # [id number] Dict: 07/27/17 1538 Trans: 07/28/17 0937 [id number] Interpreted by: SUYAPA VILLARREAL DO Electronically signed by: SUYAPA VILLARREAL DO 07/28/17 0937 MTDD
== END ==
LOC: RAD 15:14
PROVIDERS: ATTEND Anesthesiology
DX: J44.9 Chronic obstructive pulmonary disease, unspecified (principal); G62.9 Polyneuropathy, unspecified; F17.210 Nicotine dependence, cigarettes, uncomplicated; G89.4 Chronic pain syndrome; R10.9 Unspecified abdominal pain; M25.519 Pain in unspecified shoulder; Z79.891 Long term (current) use of opiate analgesic
CPT/HCPCS: 71046

== ENCOUNTER → 2017-09-14 | Outpatient (CLI) | payer MEDICARE, MEDICAID ==
[2017-09-14 16:24] LABS: BASOPHILS % (AUTO) 0 % (0-10); EOSINOPHILS # (AUTO) 0.4 10^3/uL (0.0-0.3); EOSINOPHILS % (AUTO) 5 % (0-10); HEMATOCRIT 41 % (35-52); HEMOGLOBIN 14.3 G/DL (11.5-16.0); LYMPHOCYTES # (AUTO) 2.9 X 10^3 (1.0-4.0); LYMPHOCYTES % (AUTO) 41 % (12-44); MEAN CORPUSCULAR HEMOGLOBIN 34 PG (25-34); MEAN CORPUSCULAR HGB CONC 35 G/DL (32-36); MEAN CORPUSCULAR VOLUME 96 FL (80-99); MEAN PLATELET VOLUME 10.9 FL (7.4-10.4); MONOCYTES # (AUTO) 0.4 X 10^3 (0.0-1.0); MONOCYTES % (AUTO) 6 % (0-12); NEUTROPHILS # (AUTO) 3.4 X 10^3 (1.8-7.8); NEUTROPHILS % (AUTO) 48 % (42-75); PLATELET COUNT 158 10^3/uL (130-400); RED BLOOD COUNT 4.26 10^6/uL (4.35-5.85); RED CELL DISTRIBUTION WIDTH 12.7 % (10.0-14.5); WHITE BLOOD COUNT 7.1 10^3/uL (4.3-11.0)
[2017-09-14 16:42] LABS: BUN/CREATININE RATIO 15; CREATININE SERUM 0.78 MG/DL (0.60-1.30); GFR ESTIMATED > 60
== END ==
LOC: LAB 08:00
PROVIDERS: ATTEND Nurse Practitioner Family
DX: J44.1 Chronic obstructive pulmonary disease with (acute) exacerbation (principal); R63.4 Abnormal weight loss; J96.20 Acute and chronic respiratory failure, unspecified whether with hypoxia or hypercapnia; M32.9 Systemic lupus erythematosus, unspecified; G47.33 Obstructive sleep apnea (adult) (pediatric); Z72.0 Tobacco use
CPT/HCPCS: 36415; 82565; 82728; 84520; 85025

== ENCOUNTER → 2017-09-15 | Outpatient (CLI) | payer MEDICARE, MEDICAID ==
[~2017-09-15] MED LIST changes: +CATHETER FLUSH 10 ML SYR IV PRN; +IOHEXOL 350 MG/ML 150 ML (OMNIPAQUE 350) VIAL IV ONE; +NS 250 ML (IVPB) BAG IV ONE
--- NOTE | 2017-09-15 12:38 | Diagnostic Imaging Report ---
PROCEDURE: CT angiography of the chest with contrast. TECHNIQUE: Multiple contiguous axial images were obtained through the chest after uneventful bolus administration of intravenous contrast. Reconstructed CTA MIP acquisitions were also performed. INDICATION: Unintentional weight loss. COMPARISON: Comparison is made with prior CT angiogram of the chest from 07/17/2012. FINDINGS: Evaluation of the pulmonary arterial system is without evidence of thromboembolism. No filling defects are seen within central, lobar, or segmental branches. The thoracic aorta is normal in caliber. No dissection is seen. No pericardial or pleural fluid is seen. There is some pleural thickening on the right. No definite axillary lymphadenopathy is seen. Small mediastinal lymph nodes are similar to prior study. Occlusion of the supra-azygos SVC is again noted with multiple collateral vessels present. There appears to be some right apical pleural-parenchymal scarring. There is some scarring in the right upper lobe, similar to prior exam. Linear scarring or atelectasis in the right lower lobe is also noted, similar to prior. No parenchymal mass, nodule, or infiltrate is identified. The upper abdomen is unremarkable. IMPRESSION: Overall stable CT angiogram of the chest when compared with exam from 07/17/2012. There is no evidence of pulmonary embolism or thoracic aortic dissection. 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 There are areas of scarring or atelectasis in the lungs, as described. No new abnormality is seen. Dictated by: Dictated on workstation # [id number]
== END ==
LOC: RAD 11:34
PROVIDERS: ATTEND Nurse Practitioner Family
DX: I82.819 Embolism and thrombosis of superficial veins of unspecified lower extremity (principal); J96.20 Acute and chronic respiratory failure, unspecified whether with hypoxia or hypercapnia; J44.1 Chronic obstructive pulmonary disease with (acute) exacerbation; M32.9 Systemic lupus erythematosus, unspecified; G47.33 Obstructive sleep apnea (adult) (pediatric); R63.4 Abnormal weight loss; Z72.0 Tobacco use
CPT/HCPCS: 36415; 71275; 82565; 82728; 84520; 85025

== ENCOUNTER 2017-09-18 07:04 | Emergency (ER) | payer MEDICARE, MEDICAID ==
[~2017-09-18] VITALS: Ht 170.2 cm; Wt 65.8 kg
[~2017-09-18 07:04] MED LIST changes: -CATHETER FLUSH 10 ML SYR IV PRN; -IOHEXOL 350 MG/ML 150 ML (OMNIPAQUE 350) VIAL IV ONE; -NS 250 ML (IVPB) BAG IV ONE
--- NOTE | 2017-09-18 07:41 | ED Respiratory ---
General Chief Complaint: Respiratory Problems Stated Complaint: SOB Nursing Triage Note: pt presents to ed with SOA and wheazing x 4 days. Pt states at 0600 this am her breathing got significantly worse. 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 Source: patient, EMS Exam Limitations: no limitations History of Present Illness Date Seen by Provider: Sep 18, 2017 Time Seen by Provider: 07:36 Initial Comments The patient is a 52-year-old white female who presents by ambulance after calling for severe shortness of breath. She has long-standing respiratory problems. She has been a heavy smoker. She states that presently she is smoking about 5 cigarettes per day and using Chantix in hopes of being able to stop once and for all. She sees Dr. Blunt for her lung disease. She saw the nurse practitioner therefore increasing symptoms Tuesday and was placed on a prednisone taper. She reports that she was awakened at 0600 this morning with severe shortness of breath. She normally sleeps with oxygen at 8 L/m during the sleeping hours. She generally does not use this during the daytime hours. She reports a bit more sputum production than usual. Timing/Duration: this morning Prior Episodes/Possible Cause: frequent episodes Modifying Factors: Improves With Albuterol Nebulizer Allergies and Home Medications Allergies Coded Allergies: droperidol (Unverified Allergy, Severe, SOB, 02/22/11) ranitidine HCl (Verified Allergy, Intermediate, SOB, DIAPHORETIC, 02/22/11) Soap (Unverified Allergy, Unknown, RASH, 07/03/13) aspirin (Verified Allergy, Unknown, 07/03/13) codeine (Verified Allergy, Unknown, 07/03/13) ketorolac tromethamine (Verified Allergy, Unknown, 07/03/13) metoclopramide HCl (Unverified Allergy, Unknown, 07/03/13) povidone-iodine (Unverified Allergy, Unknown, RASH, 07/03/13) prochlorperazine edisylate (Unverified Allergy, Unknown, 07/03/13) prochlorperazine maleate (Unverified Allergy, Unknown, 07/03/13) sumatriptan (Verified Allergy, Unknown, 07/03/13) sumatriptan succinate (Verified Allergy, Unknown, 07/03/13) Home Medications Albuterol Sulfate 2.5 Mg/3 Ml Solution, 2.5 MG IH Q4HR PRN, (Reported) NEEDED FOR SHORTNESS OF BREATH Budesonide/Formoterol Fumarate 10.2 Gm Hfa.aer.ad, 2 PUFF IH BID, (Reported) Cholecalciferol 5,000 Unit Tablet, 5,000 UNIT PO 1200, (Reported) Gabapentin 800 Mg Tablet, 800 MG PO TID, (Reported) Levothyroxine Sodium 75 Mcg Tablet, 75 MCG PO DAILY @ 0800, (Reported) Lisinopril 40 Mg Tablet, 40 MG PO DAILY, (Reported) Omeprazole 20 Mg Capsule.dr, 20 MG PO EVERY AFTERNOON, (Reported) Ondansetron 8 Mg Tab.rapdis, 8 MG SL Q8H PRN for NAUSEA/VOMITING, (Reported) Oxycodone Hcl 20 Mg Tab.sr.12h, 20 MG PO BID, (Reported) Potassium Chloride 10 Meq Capsule.sa, 10 MEQ PO DAILY, (Reported) Rivaroxaban 20 Mg Tablet, 20 MG PO DAILY, (Reported) Sennosides/Docusate Sodium 1 Each Tablet, 2 EACH PO BID Prescribed by: JENNY MARIE on 04/07/16 1641 Simvastatin 20 Mg Tablet, 20 MG PO HS, (Reported) [Cinnamon] , 2 CAP PO BID, (Reported) [Patanol Opth. Drops] , 2 DROPS OU DAILY PRN, (Reported) two drops to eyes as needed for allergy symptoms Patient Home Medication List Home Medication List Reviewed: Yes Review of Systems Constitutional: see HPI EENTM: no symptoms reported Respiratory: see HPI, cough, phlegm, short of breath, wheezing Cardiovascular: no symptoms reported Gastrointestinal: other (many previous operations for bowel obstructions) Genitourinary: no symptoms reported Musculoskeletal: muscle weakness Skin: no symptoms reported Psychiatric/Neurological: No Symptoms Reported Hematologic/Lymphatic: No Symptoms Reported Immunological/Allergic: no symptoms reported Past Lyyjfeo-Zcyjlp-Qcvkqr Hx Patient Social History Alcohol Use: Denies Use Recreational Drug Use: No Smoking Status: Current Everyday Smoker Type Used: Cigarettes 2nd Hand Smoke Exposure: No Recent Foreign Travel: No Contact w/Someone Who Travel: No Recent Infectious Disease Expo: No Recent Hopitalizations: No Physical Abuse: No Sexual Abuse: No Mistreated: No Fear: No Immunizations Up To Date Tetanus Booster (TDap): Less than 5yrs Date of Pneumonia Vaccine: Jan 16, 2014 Date of Influenza Vaccine: Jan 17, 2016 Seasonal Allergies Seasonal Allergies: No Past Medical History Surgeries: Yes Abdominal, Appendectomy, Bowel Surgery, Cardiac, Coronary Stent, Eye Surgery, Gallbladder, Hysterectomy, Oophorectomy, Orthopedic, Vascular Surgery Respiratory: Yes (O2 AND CPAP) Asthma, Chronic Bronchitis, Pulmonary Embolism, Sleep Apnea, COPD Cardiac: Yes (MULTIPLE DVT'S IN ARMS AND LEGS, 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 Sexually Transmitted Disease: No HIV/AIDS: No Kidney Stones, Renal Failure Gastrointestinal: Yes Gastroesophageal Reflux, Obstructive Bowel, Pancreatitis, Gall Bladder Disease Musculoskeletal: Yes (CHRONIC GENERALIZED PAIN--NARCOTIC DEPENDENT) Arthritis, Chronic Back Pain Endocrine: Yes Diabetes, Insulin dep, Hypothyroidsim, Lupus Hearing Impairment: Denies Cancer: No Psychosocial: Yes Anxiety, Depression Nursing Suicide Risk Score: 0 Integumentary: No Blood Disorders: Yes (DVT'S/P.E.'S ; PAD) Adverse Reaction/Blood Tranf: No Family Medical History Asthma 19 FATHER G8 SISTER Diabetes mellitus G8 SISTER Hypercholesterolemia G8 SISTER Hypertension G8 SISTER Kidney disease 19 MOTHER Myocardial infarction 19 FATHER No Family History of: AIDS Abdominal aortic aneurysm Nhan's disease Alcoholism Alzheimer's disease Aphasia Arthritis Cancer of mouth Cardiovascular disease Cataracts Colon cancer Completed stroke Congenital disease Congenital heart disease Coronary thrombosis Cystic fibrosis Deafness or hearing loss Dementia Drug abuse Dysphasia Fibrocystic disease of breast Gastroenteritis Glaucoma Headache disorder Infertility Neoplasm Not obtainable due to adoption Osteoporosis Parkinson's disease Prostate cancer Psychosocial problem Respiratory disorder Seizure disorder Severe allergy Thyroid disease Tuberculosis Visual disorder Heart Disease, Cancer, GI Disease Physical Exam Vital Signs Vital Signs - First Documented 09/18/17 07:11 Temp 96.9 Pulse 76 Resp 18 B/P (MAP) 145/100 (115) Pulse Ox 99 Capillary Refill : Less Than 3 Seconds General Appearance: other (appears older than stated age.) Eyes: Bilateral Eye Normal Inspection HEENT: normal ENT inspection Neck: full range of motion Respiratory: decreased breath sounds (minimal airflow) Cardiovascular: normal peripheral pulses, regular rate, rhythm, no edema, no gallop, no JVD, no murmur Gastrointestinal: other (the abdominal wall shows many previous surgical incisions and induration of skin) Extremities: other (no edema. Bronzy discoloration from the malleoli to midshin consistent with venous stasis) Neurologic/Psychiatric: natural fabricator II-XII nml as tested, no motor/sensory deficits, alert, normal mood/affect, oriented x 3 Skin: normal color, warm/dry, cyanosis, cool, diaphoresis, damp Lymphatic: no adenopathy Progress/Results/Core Measures Suspected Sepsis Recent Fever Within 48 Hours: No Infection Criteria Present: None New/Unexplained Altered Menta: No Sepsis Screen: No Definite Risk SIRS Temperature:96.9 Pulse: 76 Respiratory Rate: 18 Laboratory Tests 09/18/17 07:14: White Blood Count 7.8 Blood Pressure 145 /100 Mean: 115 Laboratory Tests 09/18/17 07:14: Creatinine 0.77, Platelet Count 161, Total Bilirubin 0.9 Results/Orders Lab Results Laboratory Tests Test 09/18/17 07:14 09/18/17 07:40 Range/Units White Blood Count 7.8 4.3-11.0 10^3/uL Red Blood Count 4.21 L 4.35-5.85 10^6/uL Hemoglobin 14.2 11.5-16.0 G/DL Hematocrit 41 35-52 % Mean Corpuscular Volume 96 80-99 FL Mean Corpuscular Hemoglobin 34 25-34 PG Mean Corpuscular Hemoglobin Concent 35 32-36 G/DL Red Cell Distribution Width 12.9 10.0-14.5 % Platelet Count 161 130-400 10^3/uL Mean Platelet Volume 10.3 7.4-10.4 FL Neutrophils (%) (Auto) 60 42-75 % Lymphocytes (%) (Auto) 30 12-44 % Monocytes (%) (Auto) 6 0-12 % Eosinophils (%) (Auto) 4 0-10 % Basophils (%) (Auto) 1 0-10 % Neutrophils # (Auto) 4.7 1.8-7.8 X 10^3 Lymphocytes # (Auto) 2.3 1.0-4.0 X 10^3 Monocytes # (Auto) 0.5 0.0-1.0 X 10^3 Eosinophils # (Auto) 0.3 0.0-0.3 10^3/uL Basophils # (Auto) 0.0 0.0-0.1 10^3/uL Sodium Level 139 135-145 MMOL/L Potassium Level 4.0 3.6-5.0 MMOL/L Chloride Level 105 98-107 MMOL/L Carbon Dioxide Level 24 21-32 MMOL/L Anion Gap 10 5-14 MMOL/L Blood Urea Nitrogen 11 7-18 MG/DL Creatinine 0.77 0.60-1.30 MG/DL Estimat Glomerular Filtration Rate > 60 BUN/Creatinine Ratio 14 Glucose Level 147 H 70-105 MG/DL Calcium Level 9.6 8.5-10.1 MG/DL Total Bilirubin 0.9 0.1-1.0 MG/DL Aspartate Amino Transf (AST/SGOT) 15 5-34 U/L Alanine Aminotransferase (ALT/SGPT) 11 0-55 U/L Alkaline Phosphatase 98 40-136 U/L Total Protein 7.3 6.4-8.2 GM/DL Albumin 4.1 3.2-4.5 GM/DL Blood Gas Puncture Site LR Blood Gas Patient Temperature 96.9 Arterial Blood pH 7.40 7.37-7.43 Arterial Blood Partial Pressure CO2 44 35-45 MMHG Arterial Blood Partial Pressure O2 57 L 79-93 MMHG Arterial Blood HCO3 27 23-27 MMOL/L Arterial Blood Total CO2 28.1 21.0-31.0 MMOL/L Arterial Blood Oxygen Saturation 89 L 94-100 % Arterial Blood Base Excess 2.1 -2.5-2.5 MMOL/L Zach Test YES-POS Blood Gas Ventilator Setting NO Blood Gas Inspired Oxygen ROOM AIR My Orders Orders - MARIBELL RIVERA MD Arterial Blood Gas (09/18/17 07:44) Cbc With Automated Diff (09/18/17 07:53) Comprehensive Metabolic Panel (09/18/17 07:53) Ua Culture If Indicated (09/18/17 07:53) Chest 1 View, Ap/Pa Only (09/18/17 07:53) Methylprednisolone Sod Succ (Solu-Medrol (09/18/17 08:00) Methylprednisolone Sod Succ (Solu-Medrol (09/18/17 08:45) Morphine Immediate Release Tab (Morphine (09/18/17 09:00) Morphine Er Tablet (Ms Contin Tablet) (09/18/17 09:00) Medications Given in ED Current Medications Medications Dose Ordered Sig/Aye Route Start Time Stop Time Status Last Admin Dose Admin Methylprednisolone Sodium Succinate 125 mg ONCE ONCE IVP 09/18/17 08:45 09/18/17 08:46 DC 09/18/17 09:07 125 MG Morphine Sulfate 15 mg ONCE ONCE PO 09/18/17 09:00 09/18/17 09:01 DC 09/18/17 09:07 15 MG Vital Signs/I&O 09/18/17 07:11 Temp 96.9 Pulse 76 Resp 18 B/P (MAP) 145/100 (115) Pulse Ox 99 Capillary Refill : Less Than 3 Seconds Blood Pressure Mean: 115 Departure Communication (Admissions) 0906 the patient shows some improvement in her function. Given that she is been on prednisone for several days and had to report here it is recommended that she be admitted. She reports that she will not be admitted here although she is willing to have treatment elsewhere. She was informed that, given treatments which are available here, transfer to another facility would likely bring expenses for which she would be responsible. She reported that she did not care and that she would take on the responsibility for these expenses. She will be required to sign out AMA. She states that she would arrange her transfer by ambulance. Impression Primary Impression: COPD exacerbation Disposition: Condition: Stable/Unchanged Transfer Transfer Time: 09:45 Transfer Facility: Patient has elected to transfer to [facility]. Spoke to Dr. Christian Garcia of the ER. He accepted her an admission for the hospitalist service. Method of Transfer: EMS Departure-Patient Inst. Decision time for Depature: 09:27 Referrals: ANETTE BLAIR DO (PCP/Family) Primary Care Physician MARIBELL RIVERA MD Sep 18, 2017 07:41
[2017-09-18 07:55] LABS: ABG BASE EXCESS 2.1 MMOL/L (-2.5-2.5); ABG OXYGEN SATURATION 89 % (94-100); ABG PCO2 44 MMHG (35-45); ABG PO2 57 MMHG (79-93); ABG TCO2 28.1 MMOL/L (21.0-31.0)
[2017-09-18 07:56] LABS: ALLENS TEST YES-POS; INSPIRED O2 ROOM AIR; VENTILATOR NO
[2017-09-18 07:57] LABS: PATIENT TEMP 96.9
[2017-09-18] MEDS ORDERED: methylPREDNISolone 125 MG (Solu-MEDROL) VIAL IM ONE (08:00)
[2017-09-18 08:17] LABS: BASOPHILS % (AUTO) 1 % (0-10); EOSINOPHILS # (AUTO) 0.3 10^3/uL (0.0-0.3); EOSINOPHILS % (AUTO) 4 % (0-10); HEMATOCRIT 41 % (35-52); HEMOGLOBIN 14.2 G/DL (11.5-16.0); LYMPHOCYTES # (AUTO) 2.3 X 10^3 (1.0-4.0); LYMPHOCYTES % (AUTO) 30 % (12-44); MEAN CORPUSCULAR HEMOGLOBIN 34 PG (25-34); MEAN CORPUSCULAR HGB CONC 35 G/DL (32-36); MEAN CORPUSCULAR VOLUME 96 FL (80-99); MEAN PLATELET VOLUME 10.3 FL (7.4-10.4); MONOCYTES # (AUTO) 0.5 X 10^3 (0.0-1.0); MONOCYTES % (AUTO) 6 % (0-12); NEUTROPHILS # (AUTO) 4.7 X 10^3 (1.8-7.8); NEUTROPHILS % (AUTO) 60 % (42-75); PLATELET COUNT 161 10^3/uL (130-400); RED BLOOD COUNT 4.21 10^6/uL (4.35-5.85); RED CELL DISTRIBUTION WIDTH 12.9 % (10.0-14.5); WHITE BLOOD COUNT 7.8 10^3/uL (4.3-11.0)
--- NOTE | 2017-09-18 08:26 | Diagnostic Imaging Report ---
INDICATION: COPD COMPARISON: 07/27/2017 TECHNIQUE: Single frontal radiograph of the chest dated 09/18/2017 FINDINGS: Central venous catheter is identified extending from the inferior aspect of the image with the distal tip overlying the expected location of the right atrium, stable from the prior examination. The cardiac silhouette is within normal limits in size. No significant pulmonary vascular congestion. The lungs are again noted to be hyperinflated with flattening of the diaphragm. No focal pulmonary opacity. No significant left pleural effusion. Blunting of the right costophrenic angle. No pneumothorax. Surgical clips overlying the right neck. No acute osseous abnormality. IMPRESSION: Pulmonary hyperinflation, which may relate to background chronic obstructive pulmonary disease. Trace pleural fluid versus pleural scarring associated with the right lung base. Additional stable findings as above. Dictated by: Dictated on workstation # [id number]
[2017-09-18 08:35] LABS: ALANINE AMINOTRANSFERASE 11 U/L (0-55); ALBUMIN 4.1 GM/DL (3.2-4.5); ALKALINE PHOSPHATASE 98 U/L (40-136); BILIRUBIN,TOTAL 0.9 MG/DL (0.1-1.0); BUN/CREATININE RATIO 14; CALCIUM 9.6 MG/DL (8.5-10.1); CARBON DIOXIDE 24 MMOL/L (21-32); CHLORIDE 105 MMOL/L (98-107); CREATININE SERUM 0.77 MG/DL (0.60-1.30); GFR ESTIMATED > 60; GLUCOSE 147 MG/DL (70-105); SODIUM 139 MMOL/L (135-145); TOTAL PROTEIN 7.3 GM/DL (6.4-8.2)
[2017-09-18] MEDS ORDERED: methylPREDNISolone 125 MG (Solu-MEDROL) VIAL IVP ONE (08:45)
[2017-09-18] MEDS ORDERED: morphine IMMEDIATE RELEASE 15 MG TABLET PO SCH (09:00)
[2017-09-18] MEDS ORDERED: morphine ER 15 MG (MS CONTIN) TAB PO ONE (09:00)
[2017-09-18 12:40] LABS: CLARITY,URINE VERY CLOUDY; GLUCOSE, URINE (UA) NEGATIVE (NEGATIVE); KETONES,URINE 1+ (NEGATIVE); LEUKOCYTE ESTERASE ,URINE 1+ (NEGATIVE); NITRITE,URINE POSITIVE (NEGATIVE); PH,URINE 8 (5-9); PROTEIN,URINE 2+ (NEGATIVE); UROBILINOGEN,URINE 12 MG/DL (NORMAL)
[2017-09-18 12:52] LABS: AMORPHOUS SEDIMENT,UR LARGE AMOR PHOSPHATE /LPF; BACTERIA,URINE FEW /HPF; BILIRUBIN,URINE 3+ (NEGATIVE); COLOR,URINE ORANGE
[2017-09-18 13:00] VITALS: BP 140/95
== END 2017-09-18 13:00 | disposition short-term general hospital (02) ==
LOC: EDUNIT# 07:04 → ER 07:05
DX: J44.1 Chronic obstructive pulmonary disease with (acute) exacerbation (principal); G47.30 Sleep apnea, unspecified; E78.00 Pure hypercholesterolemia, unspecified; I10 Essential (primary) hypertension; I73.9 Peripheral vascular disease, unspecified; K21.9 Gastro-esophageal reflux disease without esophagitis; E11.9 Type 2 diabetes mellitus without complications; E03.9 Hypothyroidism, unspecified; F41.9 Anxiety disorder, unspecified; F32.9 Major depressive disorder, single episode, unspecified; F17.210 Nicotine dependence, cigarettes, uncomplicated; Z88.6 Allergy status to analgesic agent; Z88.8 Allergy status to other drugs, medicaments and biological substances; Z90.89 Acquired absence of other organs; Z82.49 Family history of ischemic heart disease and other diseases of the circulatory system; Z87.442 Personal history of urinary calculi; Z87.19 Personal history of other diseases of the digestive system; Z86.718 Personal history of other venous thrombosis and embolism; Z95.5 Presence of coronary angioplasty implant and graft; Z90.710 Acquired absence of both cervix and uterus; Z88.5 Allergy status to narcotic agent; Z79.51 Long term (current) use of inhaled steroids; Z79.01 Long term (current) use of anticoagulants
CPT/HCPCS: 36415; 36600; 71045; 80053; 81000; 82805; 85025; 87088; 94640; 94664; 96374

== ENCOUNTER 2017-10-20 11:00 | Outpatient (RCR) | payer MEDICARE, MEDICAID ==
[~2017-10-20 11:00] MED LIST changes: -OXYC-197 PO; +OXYC1TAB87 PO
[2017-10-20 11:09] LABS: BASOPHILS % (AUTO) 1 % (0-10); EOSINOPHILS # (AUTO) 0.2 10^3/uL (0.0-0.3); EOSINOPHILS % (AUTO) 3 % (0-10); HEMATOCRIT 39 % (35-52); HEMOGLOBIN 13.5 G/DL (11.5-16.0); LYMPHOCYTES # (AUTO) 2.2 X 10^3 (1.0-4.0); LYMPHOCYTES % (AUTO) 35 % (12-44); MEAN CORPUSCULAR HEMOGLOBIN 34 PG (25-34); MEAN CORPUSCULAR HGB CONC 34 G/DL (32-36); MEAN CORPUSCULAR VOLUME 99 FL (80-99); MEAN PLATELET VOLUME 10.3 FL (7.4-10.4); MONOCYTES # (AUTO) 0.4 X 10^3 (0.0-1.0); MONOCYTES % (AUTO) 7 % (0-12); NEUTROPHILS # (AUTO) 3.5 X 10^3 (1.8-7.8); NEUTROPHILS % (AUTO) 55 % (42-75); PLATELET COUNT 176 10^3/uL (130-400); RED BLOOD COUNT 3.96 10^6/uL (4.35-5.85); RED CELL DISTRIBUTION WIDTH 13.8 % (10.0-14.5); WHITE BLOOD COUNT 6.4 10^3/uL (4.3-11.0)
[2017-10-20 11:31] LABS: ALANINE AMINOTRANSFERASE 20 U/L (0-55); ALBUMIN 4.1 GM/DL (3.2-4.5); ALKALINE PHOSPHATASE 101 U/L (40-136); BILIRUBIN,TOTAL 0.6 MG/DL (0.1-1.0); BUN/CREATININE RATIO 12; CARBON DIOXIDE 27 MMOL/L (21-32); CHLORIDE 105 MMOL/L (98-107); CREATININE SERUM 0.81 MG/DL (0.60-1.30); GFR ESTIMATED > 60; GLUCOSE 190 MG/DL (70-105); POTASSIUM 4.3 MMOL/L (3.6-5.0); SODIUM 140 MMOL/L (135-145); TOTAL PROTEIN 6.8 GM/DL (6.4-8.2)
== END 2017-11-15 | disposition home or self-care (01) ==
LOC: ONC 11:00
PROVIDERS: ATTEND Internal Medicine Hematology & Oncology
DX: D68.62 Lupus anticoagulant syndrome (principal); D50.0 Iron deficiency anemia secondary to blood loss (chronic); E11.9 Type 2 diabetes mellitus without complications; E03.9 Hypothyroidism, unspecified; I10 Essential (primary) hypertension; J44.9 Chronic obstructive pulmonary disease, unspecified; F32.9 Major depressive disorder, single episode, unspecified; F17.200 Nicotine dependence, unspecified, uncomplicated; G47.33 Obstructive sleep apnea (adult) (pediatric); Z86.718 Personal history of other venous thrombosis and embolism; Z86.711 Personal history of pulmonary embolism; Z86.2 Personal history of diseases of the blood and blood-forming organs and certain disorders involving the immune mechanism; Z79.01 Long term (current) use of anticoagulants
CPT/HCPCS: 36415; 80053; 82728; 85025; 99213

== ENCOUNTER → 2017-11-14 | Outpatient (CLI) | payer MEDICARE, MEDICAID ==
[~2017-11-14] MED LIST changes: +OXYC-197 PO; -OXYC1TAB87 PO
[2017-11-14 11:14] LABS: BUN/CREATININE RATIO 17; CALCIUM 10.5 MG/DL (8.5-10.1); CARBON DIOXIDE 22 MMOL/L (21-32); CHLORIDE 106 MMOL/L (98-107); CREATININE SERUM 0.78 MG/DL (0.60-1.30); GFR ESTIMATED > 60; GLUCOSE 118 MG/DL (70-105); SODIUM 139 MMOL/L (135-145); URIC ACID 6.9 MG/DL (2.6-7.2)
[2017-11-14 11:17] LABS: POTASSIUM 4.5 MMOL/L (3.6-5.0)
== END ==
LOC: HH 08:00
PROVIDERS: ATTEND Urology
DX: N20.0 Calculus of kidney (principal)
CPT/HCPCS: 80048; 83735; 84550

== ENCOUNTER 2018-03-24 15:48 | Emergency (ER) | payer MEDICARE, MEDICAID ==
[~2018-03-24] VITALS: Ht 170.2 cm; Wt 72.6 kg
[~2018-03-24 15:48] MED LIST changes: -OXYC-197 PO; +OXYC1TAB87 PO
[2018-03-24] MEDS ORDERED: RT-ALBUTEROL/IPRATROPIUM 3 ML (DUONEB) VIAL INH ONE (17:15)
[2018-03-24] MEDS ORDERED: RT-ALBUTEROL SULF 2.5 MG/3 ML PRE-MIX VIAL ONE (17:20)
[2018-03-24] MEDS ORDERED: RT-ALBUTEROL SULF 2.5 MG/3 ML PRE-MIX VIAL INH SCH (17:30)
[2018-03-24 17:49] LABS: BASOPHILS # (AUTO) 0.1 10^3/uL (0.0-0.1); BASOPHILS % (AUTO) 1 % (0-10); EOSINOPHILS # (AUTO) 0.2 10^3/uL (0.0-0.3); EOSINOPHILS % (AUTO) 2 % (0-10); HEMATOCRIT 46 % (35-52); HEMOGLOBIN 15.9 G/DL (11.5-16.0); LYMPHOCYTES # (AUTO) 2.8 X 10^3 (1.0-4.0); LYMPHOCYTES % (AUTO) 32 % (12-44); MEAN CORPUSCULAR HEMOGLOBIN 34 PG (25-34); MEAN CORPUSCULAR HGB CONC 34 G/DL (32-36); MEAN CORPUSCULAR VOLUME 98 FL (80-99); MONOCYTES # (AUTO) 0.6 X 10^3 (0.0-1.0); MONOCYTES % (AUTO) 7 % (0-12); NEUTROPHILS % (AUTO) 58 % (42-75); PLATELET COUNT 176 10^3/uL (130-400); RED BLOOD COUNT 4.73 10^6/uL (4.35-5.85); RED CELL DISTRIBUTION WIDTH 12.2 % (10.0-14.5); WHITE BLOOD COUNT 8.6 10^3/uL (4.3-11.0)
[2018-03-24] MEDS ORDERED: ONDANSETRON 4 MG/2 ML (SDV) Z0FRAN ONE (18:10)
[2018-03-24 18:11] LABS: ALANINE AMINOTRANSFERASE 12 U/L (0-55); ALBUMIN 4.6 GM/DL (3.2-4.5); ALKALINE PHOSPHATASE 109 U/L (40-136); BILIRUBIN,TOTAL 1.1 MG/DL (0.1-1.0); BUN/CREATININE RATIO 15; CALCIUM 10.9 MG/DL (8.5-10.1); CARBON DIOXIDE 24 MMOL/L (21-32); CHLORIDE 103 MMOL/L (98-107); CREATININE SERUM 0.79 MG/DL (0.60-1.30); GFR ESTIMATED > 60; GLUCOSE 125 MG/DL (70-105); POTASSIUM 4.2 MMOL/L (3.6-5.0); SODIUM 139 MMOL/L (135-145); TOTAL PROTEIN 8.4 GM/DL (6.4-8.2)
--- NOTE | 2018-03-24 18:12 | Diagnostic Imaging Report ---
INDICATION: Shortness of air. Back pain COMPARISON: 09/18/2017 FINDINGS: Single frontal view of the chest demonstrates normal heart size and pulmonary vascularity. The lungs are hyperinflated, but are otherwise clear. No large pleural effusion or pneumothorax is seen. The visualized osseous structures show no acute abnormalities. IMPRESSION: 1. No acute cardiopulmonary process. 2. Hyperinflated appearance to the lungs. Correlation with underlying obstructive pulmonary disease is recommended. Dictated by: Dictated on workstation # [id number]
[2018-03-24] MEDS ORDERED: fentaNYL INJECTION 100 MCG/2 ML AMP IVP ONE ×2 (18:15→18:30)
--- NOTE | 2018-03-24 18:35 | ED Respiratory ---
General Chief Complaint: Respiratory Problems Stated Complaint: COPD/SOB Nursing Triage Note: Pt brought to rm 3 in wheelchair due to back pain. Pt reports back pain that began last night. Pt also reports increased SOB that pt feels is due to the pain from pt's back. Pt reports painful urination, and urgency. Pt place on 2 L NC for patient comfort. Pt reports hx of chronic kidney stones. Source: patient Exam Limitations: no limitations History of Present Illness Date Seen by Provider: Mar 24, 2018 Time Seen by Provider: 17:00 Initial Comments Patient is a 52-year-old female who presents to the emergency room with reports of upper back pain and increased shortness of breath. She is concerned that she might have pneumonia due to recent upper respiratory cold. She reports a long history of some COPD and wears 2 L 02 nasal cannula at all times. Timing/Duration: week Prior Episodes/Possible Cause: frequent episodes Associated Symptoms: cough, nasal congestion, shortness of breath, wheezing Allergies and Home Medications Allergies Coded Allergies: droperidol (Unverified Allergy, Severe, SOB, 02/22/11) ranitidine HCl (Verified Allergy, Intermediate, SOB, DIAPHORETIC, 02/22/11) Soap (Unverified Allergy, Unknown, RASH, 07/03/13) aspirin (Verified Allergy, Unknown, 07/03/13) codeine (Verified Allergy, Unknown, 07/03/13) ketorolac tromethamine (Verified Allergy, Unknown, 07/03/13) metoclopramide HCl (Unverified Allergy, Unknown, 07/03/13) povidone-iodine (Unverified Allergy, Unknown, RASH, 07/03/13) prochlorperazine edisylate (Unverified Allergy, Unknown, 07/03/13) prochlorperazine maleate (Unverified Allergy, Unknown, 07/03/13) sumatriptan (Verified Allergy, Unknown, 07/03/13) sumatriptan succinate (Verified Allergy, Unknown, 07/03/13) Home Medications Albuterol Sulfate 2.5 Mg/3 Ml Solution, 2.5 MG IH Q4HR PRN, (Reported) NEEDED FOR SHORTNESS OF BREATH Budesonide/Formoterol Fumarate 10.2 Gm Hfa.aer.ad, 2 PUFF IH BID, (Reported) Cholecalciferol 5,000 Unit Tablet, 5,000 UNIT PO 1200, (Reported) Gabapentin 800 Mg Tablet, 800 MG PO TID, (Reported) Levothyroxine Sodium 75 Mcg Tablet, 75 MCG PO DAILY @ 0800, (Reported) Lisinopril 40 Mg Tablet, 40 MG PO DAILY, (Reported) Omeprazole 20 Mg Capsule.dr, 20 MG PO EVERY AFTERNOON, (Reported) Ondansetron 8 Mg Tab.rapdis, 8 MG SL Q8H PRN for NAUSEA/VOMITING, (Reported) Oxycodone Hcl 20 Mg Tab.sr.12h, 20 MG PO BID, (Reported) Potassium Chloride 10 Meq Capsule.sa, 10 MEQ PO DAILY, (Reported) Prednisone 20 Mg Tab, 40 MG PO DAILY Prescribed by: JHOAN RODRIGUEZ on 03/24/18 183 Rivaroxaban 20 Mg Tablet, 20 MG PO DAILY, (Reported) Sennosides/Docusate Sodium 1 Each Tablet, 2 EACH PO BID Prescribed by: JENNY MARIE on 04/07/16 1641 Simvastatin 20 Mg Tablet, 20 MG PO HS, (Reported) [Cinnamon] , 2 CAP PO BID, (Reported) [Patanol Opth. Drops] , 2 DROPS OU DAILY PRN, (Reported) two drops to eyes as needed for allergy symptoms Patient Home Medication List Home Medication List Reviewed: Yes Review of Systems Review of Systems Constitutional: no symptoms reported, see HPI Respiratory: see HPI, wheezing Musculoskeletal: see HPI, back pain (upper back pain) All Other Systems Reviewed Negative Unless Noted: Yes Past Nyjnkjz-Fraiaw-Pqeusq Hx Past Med/Social Hx: Reviewed Nursing Past Med/Soc Hx Patient Social History Alcohol Use: Denies Use Recreational Drug Use: No Smoking Status: Current Everyday Smoker Type Used: Cigarettes 2nd Hand Smoke Exposure: No Recent Foreign Travel: No Contact w/Someone Who Travel: No Recent Infectious Disease Expo: No Recent Hopitalizations: No Immunizations Up To Date Tetanus Booster (TDap): Less than 5yrs Date of Pneumonia Vaccine: Jan 16, 2014 Date of Influenza Vaccine: Jan 17, 2016 Seasonal Allergies Seasonal Allergies: No Past Medical History Surgeries: Yes Abdominal, Appendectomy, Bowel Surgery, Cardiac, Coronary Stent, Eye Surgery, Gallbladder, Hysterectomy, Oophorectomy, Orthopedic, Vascular Surgery Respiratory: Yes (O2 AND CPAP) Asthma, Chronic Bronchitis, Pulmonary Embolism, Sleep Apnea, COPD Cardiac: Yes (MULTIPLE DVT'S IN ARMS AND LEGS, 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 H[employer] History: Hysterectomy Sexually Transmitted Disease: No HIV/AIDS: No Kidney Stones, Renal Failure Gastrointestinal: Yes Gastroesophageal Reflux, Obstructive Bowel, Pancreatitis, Gall Bladder Disease Musculoskeletal: Yes (CHRONIC GENERALIZED PAIN--NARCOTIC DEPENDENT) Arthritis, Chronic Back Pain Endocrine: Yes Diabetes, Insulin dep, Hypothyroidsim, Lupus Hearing Impairment: Denies Cancer: No Psychosocial: Yes Anxiety, Depression Integumentary: No Blood Disorders: Yes (DVT'S/P.E.'S ; PAD) Adverse Reaction/Blood Tranf: No Family Medical History Reviewed Nursing Family Hx Asthma 19 FATHER G8 SISTER Diabetes mellitus G8 SISTER Hypercholesterolemia G8 SISTER Hypertension G8 SISTER Kidney disease 19 MOTHER Myocardial infarction 19 FATHER No Family History of: AIDS Abdominal aortic aneurysm Nhan's disease Alcoholism Alzheimer's disease Aphasia Arthritis Cancer of mouth Cardiovascular disease Cataracts Colon cancer Completed stroke Congenital disease Congenital heart disease Coronary thrombosis Cystic fibrosis Deafness or hearing loss Dementia Drug abuse Dysphasia Fibrocystic disease of breast Gastroenteritis Glaucoma Headache disorder Infertility Neoplasm Not obtainable due to adoption Osteoporosis Parkinson's disease Prostate cancer Psychosocial problem Respiratory disorder Seizure disorder Severe allergy Thyroid disease Tuberculosis Visual disorder Heart Disease, Cancer, GI Disease Physical Exam Vital Signs - First Documented 03/24/18 03/24/18 16:30 16:40 Temp 97.7 Pulse 82 Resp 24 B/P (MAP) 141/96 (111) Pulse Ox 98 O2 Delivery Room Air O2 Flow Rate 2.00 Capillary Refill : Less Than 3 Seconds Height: 5'7.00" Weight: 160lbs. 0oz. 72.256692lo; 24.27 BMI Method:Stated General Appearance: WD/WN, no apparent distress HEENT: PERRL/EOMI, normal ENT inspection, TMs normal, pharynx normal Neck: non-tender, full range of motion, supple, normal inspection, carotid bruit Respiratory: chest non-tender, no respiratory distress, no accessory muscle use , wheezing Cardiovascular: normal peripheral pulses, regular rate, rhythm, no edema, no gallop, no JVD, no murmur Gastrointestinal: normal bowel sounds, non tender, soft, no organomegaly, no pulsatile mass Neurologic/Psychiatric: alert, normal mood/affect, oriented x 3 Skin: normal color, warm/dry Progress/Results/Core Measures Suspected Sepsis Recent Fever Within 48 Hours: No Infection Criteria Present: None New/Unexplained Altered Menta: No Sepsis Screen: No Definite Risk SIRS Temperature:97.7 Pulse: 82 Respiratory Rate: 24 Laboratory Tests 03/24/18 17:40: White Blood Count 8.6 Blood Pressure 141 /96 Mean: 111 Laboratory Tests 03/24/18 17:40: Creatinine 0.79, Platelet Count 176, Total Bilirubin 1.1H Results/Orders Lab Results Laboratory Tests Test 03/24/18 17:40 Range/Units White Blood Count 8.6 4.3-11.0 10^3/uL Red Blood Count 4.73 4.35-5.85 10^6/uL Hemoglobin 15.9 11.5-16.0 G/DL Hematocrit 46 35-52 % Mean Corpuscular Volume 98 80-99 FL Mean Corpuscular Hemoglobin 34 25-34 PG Mean Corpuscular Hemoglobin Concent 34 32-36 G/DL Red Cell Distribution Width 12.2 10.0-14.5 % Platelet Count 176 130-400 10^3/uL Mean Platelet Volume 11.0 H 7.4-10.4 FL Neutrophils (%) (Auto) 58 42-75 % Lymphocytes (%) (Auto) 32 12-44 % Monocytes (%) (Auto) 7 0-12 % Eosinophils (%) (Auto) 2 0-10 % Basophils (%) (Auto) 1 0-10 % Neutrophils # (Auto) 5.0 1.8-7.8 X 10^3 Lymphocytes # (Auto) 2.8 1.0-4.0 X 10^3 Monocytes # (Auto) 0.6 0.0-1.0 X 10^3 Eosinophils # (Auto) 0.2 0.0-0.3 10^3/uL Basophils # (Auto) 0.1 0.0-0.1 10^3/uL Sodium Level 139 135-145 MMOL/L Potassium Level 4.2 3.6-5.0 MMOL/L Chloride Level 103 98-107 MMOL/L Carbon Dioxide Level 24 21-32 MMOL/L Anion Gap 12 5-14 MMOL/L Blood Urea Nitrogen 12 7-18 MG/DL Creatinine 0.79 0.60-1.30 MG/DL Estimat Glomerular Filtration Rate > 60 BUN/Creatinine Ratio 15 Glucose Level 125 H 70-105 MG/DL Calcium Level 10.9 H 8.5-10.1 MG/DL Corrected Calcium 8.5-10.1 MG/DL Total Bilirubin 1.1 H 0.1-1.0 MG/DL Aspartate Amino Transf (AST/SGOT) 15 5-34 U/L Alanine Aminotransferase (ALT/SGPT) 12 0-55 U/L Alkaline Phosphatase 109 40-136 U/L Total Protein 8.4 H 6.4-8.2 GM/DL Albumin 4.6 H 3.2-4.5 GM/DL My Orders Orders - JHOAN RODRIGUEZ Cbc With Automated Diff (03/24/18 17:03) Comprehensive Metabolic Panel (03/24/18 17:03) Chest 1 View, Ap/Pa Only (03/24/18 17:03) Albuterol/Ipra Inhalation Soln (Duoneb I (03/24/18 17:15) O2 (03/24/18 17:03) Saline Lock/Iv-Start (03/24/18 17:03) Monitor-Rhythm Ecg Trace Only (03/24/18 17:03) Svn Small Volume Nebulizer (03/24/18 17:03) Albuterol Pre-Mix Nebs (Rt) (Proventil (03/24/18 17:20) Albuterol Pre-Mix Nebs (Rt) (Proventil (03/24/18 17:30) Svn Small Volume Nebulizer (03/24/18 17:26) Fentanyl Injection (Sublimaze Injection (03/24/18 18:15) Ondansetron Injection (Zofran Injectio (03/24/18 18:10) Fentanyl Injection (Sublimaze Injection (03/24/18 18:30) Heparin (Central Iv Flush) (Heparin ([place] (03/24/18 19:30) Medications Given in ED Vital Signs/I&O 03/24/18 03/24/18 03/24/18 03/24/18 16:30 16:40 17:10 17:30 Temp 97.7 Pulse 82 Resp 24 B/P (MAP) 141/96 (111) Pulse Ox 98 91 95 93 O2 Delivery Room Air Room Air Nasal Cannula Nasal Cannula O2 Flow Rate 2.00 2.00 2.00 03/24/18 19:30 Temp 97.7 Pulse 85 Resp 22 B/P (MAP) 113/93 (100) Pulse Ox 94 O2 Delivery Nasal Cannula O2 Flow Rate 2.00 Capillary Refill : Less Than 3 Seconds Blood Pressure Mean: 111 Progress Note : Time: 18:30 Progress Note I have seen and evaluated the patient. After initial breathing treatment the patient lungs opened up to have more air movement and had increase in wheezing. She then received and hour long treatment that cleared her lungs of all wheezing. Pain medication relieved her of her back pain. I will be using a short course of steroids for COPD exacerbation. She agrees with plan of care. Return precautions were given. Diagnostic Imaging Diagonstic Imaging: Xray Plain Films/CT/US/NM/MRI: chest Comments NAME: JENNIFER SOSAON Robert [facility] REC#: [id number] PHYSICIAN: JHOAN RODRIGUEZ CC: JHOAN RODRIGUEZ; FLORES FINK MD Page 1 of 1 RADIOLOGY REPORT [facility] [place], [place], [place] CC: JO RODRIGUEZ NICHOLAS M MD Page 1 of 1 RADIOLOGY REPORT NAME: MEGAN SOSA [facility] REC#: [id number] PT STATUS: REG ER : 1965 PHYSICIAN: JHOAN RODRIGUEZ ADMIT DATE: 03/24/18/ER Signed Date of Exam: 03/24/18 CHEST 1 VIEW, AP/PA ONLY INDICATION: Shortness of air. Back pain COMPARISON: 09/18/2017 FINDINGS: Single frontal view of the chest demonstrates normal heart size and pulmonary vascularity. The lungs are hyperinflated, but are otherwise clear. No large pleural effusion or pneumothorax is seen. The visualized osseous structures show no acute abnormalities. IMPRESSION: 1. No acute cardiopulmonary process. 2. Hyperinflated appearance to the lungs. Correlation with underlying obstructive pulmonary disease is recommended. Dictated by: Dictated on workstation # [id number] Dict: 03/24/18 1810 Trans: 03/24/18 1849 Interpreted by: FLORES FINK MD Electronically signed by: FLORES FINK MD 03/24/18 1849 Reviewed: Reviewed by Me Departure Impression Primary Impression: COPD exacerbation Disposition: 01 HOME, SELF-CARE Condition: Stable/Unchanged Departure-Patient Inst. Decision time for Depature: 18:33 Referrals: ANETTE BLAIR DO (PCP/Family) Primary Care Physician Patient Instructions: Exacerbation of COPD (DC) Add. Discharge Instructions: Take medications as directed. Resume your home medications including her breathing treatment as scheduled. Follow-up with your primary care provider within 1 week for recheck. Return back to the emergency room for any worsening symptoms or concerns as needed. All discharge instructions reviewed with patient and/or family. Voiced understanding. Scripts Prednisone (Prednisone) 20 Mg Tab 40 MG PO DAILY for 5 Days, #10 TAB Prov: JHOAN RODRIGUEZ 03/24/18 JHOAN RODRIGUEZ Mar 24, 2018 18:35
[2018-03-24] MEDS ORDERED: PRD20T PO (18:37)
[2018-03-24 19:30] VITALS: BP 113/93
[2018-03-24] MEDS ORDERED: HEParin (CENTRAL IV FLUSH) 500 UNIT/5 ML SYR IV ONE (19:30)
== END 2018-03-24 19:30 | disposition home or self-care (01) ==
LOC: EDUNIT# 15:48 → ER 15:49
DX: J44.1 Chronic obstructive pulmonary disease with (acute) exacerbation (principal); E78.00 Pure hypercholesterolemia, unspecified; I10 Essential (primary) hypertension; E11.59 Type 2 diabetes mellitus with other circulatory complications; I73.9 Peripheral vascular disease, unspecified; E11.40 Type 2 diabetes mellitus with diabetic neuropathy, unspecified; G47.30 Sleep apnea, unspecified; K21.9 Gastro-esophageal reflux disease without esophagitis; E03.9 Hypothyroidism, unspecified; M32.9 Systemic lupus erythematosus, unspecified; F41.9 Anxiety disorder, unspecified; F32.9 Major depressive disorder, single episode, unspecified; F17.210 Nicotine dependence, cigarettes, uncomplicated; Z95.5 Presence of coronary angioplasty implant and graft; Z90.49 Acquired absence of other specified parts of digestive tract; Z86.711 Personal history of pulmonary embolism; Z87.442 Personal history of urinary calculi; Z82.49 Family history of ischemic heart disease and other diseases of the circulatory system; Z87.19 Personal history of other diseases of the digestive system; Z86.718 Personal history of other venous thrombosis and embolism; Z90.710 Acquired absence of both cervix and uterus; Z98.890 Other specified postprocedural states; Z88.8 Allergy status to other drugs, medicaments and biological substances; Z88.6 Allergy status to analgesic agent; Z88.4 Allergy status to anesthetic agent; Z88.5 Allergy status to narcotic agent; Z91.041 Radiographic dye allergy status; Z79.51 Long term (current) use of inhaled steroids; Z79.52 Long term (current) use of systemic steroids; Z79.01 Long term (current) use of anticoagulants
CPT/HCPCS: 36415; 71045; 80053; 85025; 93041

== ENCOUNTER → 2018-06-21 | Outpatient (CLI) | payer MEDICARE, MEDICAID ==
--- NOTE | 2018-06-21 11:55 | Diagnostic Imaging Report ---
PROCEDURE: US left lower extremity venous. TECHNIQUE: Multiple real-time grayscale images were obtained over the left lower extremity in various projections. Additional duplex Doppler and color Doppler images were also obtained. INDICATION: Left leg pain and swelling. Left lower extremity deep venous system shows normal compression with normal response to augmentation and Valsalva. There was some limited compression of the common femoral vein and the upper superficial femoral vein due to pain. No thrombus was seen. No fluid collection is identified. Patient appears to have a port in the left groin. The catheter does not appear to be in the common femoral vein. The catheter is in the region of a greater saphenous vein branch. IMPRESSION: No evidence of left lower extremity DVT. The left groin port does not appear to be located in the common femoral vein and may actually be located in a greater saphenous vein branch. Dictated by: Dictated on workstation # [id number]
== END ==
LOC: RAD 08:38
PROVIDERS: ATTEND Nurse Practitioner Adult Health
DX: M79.89 Other specified soft tissue disorders (principal)

== ENCOUNTER 2018-09-13 10:09 | Outpatient (RCR) | payer MEDICARE, MEDICAID ==
[2018-06-20 16:17] LABS: BASOPHILS % (AUTO) 0 % (0-10); EOSINOPHILS # (AUTO) 0.1 10^3/uL (0.0-0.3); EOSINOPHILS % (AUTO) 2 % (0-10); HEMATOCRIT 42 % (35-52); HEMOGLOBIN 14.6 G/DL (11.5-16.0); LYMPHOCYTES # (AUTO) 2.4 X 10^3 (1.0-4.0); LYMPHOCYTES % (AUTO) 36 % (12-44); MEAN CORPUSCULAR HEMOGLOBIN 34 PG (25-34); MEAN CORPUSCULAR HGB CONC 34 G/DL (32-36); MEAN CORPUSCULAR VOLUME 99 FL (80-99); MEAN PLATELET VOLUME 11.1 FL (7.4-10.4); MONOCYTES # (AUTO) 0.4 X 10^3 (0.0-1.0); MONOCYTES % (AUTO) 5 % (0-12); NEUTROPHILS # (AUTO) 3.8 X 10^3 (1.8-7.8); NEUTROPHILS % (AUTO) 57 % (42-75); PLATELET COUNT 135 10^3/uL (130-400); RED CELL DISTRIBUTION WIDTH 12.7 % (10.0-14.5); WHITE BLOOD COUNT 6.7 10^3/uL (4.3-11.0)
[2018-06-20 16:40] LABS: ALANINE AMINOTRANSFERASE 12 U/L (0-55); ALBUMIN 4.3 GM/DL (3.2-4.5); ALKALINE PHOSPHATASE 104 U/L (40-136); BILIRUBIN,TOTAL 0.5 MG/DL (0.1-1.0); BUN/CREATININE RATIO 10; CALCIUM 9.7 MG/DL (8.5-10.1); CARBON DIOXIDE 24 MMOL/L (21-32); CHLORIDE 104 MMOL/L (98-107); CREATININE SERUM 0.79 MG/DL (0.60-1.30); GFR ESTIMATED > 60; GLUCOSE 119 MG/DL (70-105); POTASSIUM 3.9 MMOL/L (3.6-5.0); SODIUM 139 MMOL/L (135-145); TOTAL PROTEIN 7.2 GM/DL (6.4-8.2)
[~2018-09-13 10:09] MED LIST changes: +ALTEPLASE 2 MG (CATHFLO) CANCER CENTER IV ONE
== END 2018-09-14 | disposition home or self-care (01) ==
LOC: ONC 10:09
PROVIDERS: ATTEND Internal Medicine Hematology & Oncology
DX: D68.62 Lupus anticoagulant syndrome (principal); D50.0 Iron deficiency anemia secondary to blood loss (chronic); E11.9 Type 2 diabetes mellitus without complications; E03.9 Hypothyroidism, unspecified; I10 Essential (primary) hypertension; J44.9 Chronic obstructive pulmonary disease, unspecified; F32.9 Major depressive disorder, single episode, unspecified; F17.200 Nicotine dependence, unspecified, uncomplicated; G47.33 Obstructive sleep apnea (adult) (pediatric); Z86.718 Personal history of other venous thrombosis and embolism; Z86.711 Personal history of pulmonary embolism; Z86.2 Personal history of diseases of the blood and blood-forming organs and certain disorders involving the immune mechanism; Z79.01 Long term (current) use of anticoagulants; Z45.2 Encounter for adjustment and management of vascular access device
CPT/HCPCS: 36593; 80053; 82728; 85025; 96523

== ENCOUNTER → 2018-09-20 | Outpatient (CLI) | payer MEDICARE, MEDICAID ==
[~2018-09-20] MED LIST changes: -ALTEPLASE 2 MG (CATHFLO) CANCER CENTER IV ONE
--- NOTE | 2018-09-20 13:23 | Diagnostic Imaging Report ---
CLINICAL INDICATION: Patient with neck mass. EXAM: Limited and focused ultrasound of the right lateral base of the neck soft tissue just above the level of the clavicle in the lump area of concern. COMPARISON: None. FINDINGS AND IMPRESSION: There is a 2.0 cm x 1.7 cm x 1.0 cm isoechoic and hypoechoic heterogeneous nodular area seen in the palpable area of concern in the right supraclavicular base of neck region. There is some posterior shadowing seen associated with this area. There is no significant central Doppler flow. This area is nonspecific. Since there is no central Doppler flow, a lymph node is suspected to be less likely. CT scan of the neck with contrast is suggested to better characterize this area. A BB marker should be placed in the area of concern for appropriate localization. Dictated by: Dictated on workstation # [id number]
== END ==
LOC: RAD 08:56
PROVIDERS: ATTEND Nurse Practitioner Community Health
DX: R22.1 Localized swelling, mass and lump, neck (principal)
CPT/HCPCS: 76536

== ENCOUNTER → 2018-09-26 | Outpatient (CLI) | payer MEDICARE, MEDICAID | LOC: LAB 13:55 | PROVIDERS: ATTEND Nurse Practitioner Community Health | DX: I10 Essential (primary) hypertension (principal) ==

== ENCOUNTER → 2018-09-28 | Outpatient (CLI) | payer MEDICARE, MEDICAID ==
[~2018-09-28] MED LIST changes: +HEParin (CENTRAL IV FLUSH) 500 UNIT/5 ML SYR IV ONE; +HOLD METFORMIN - RECEIVED CONTRAST 20 ML VIAL IV SCH; +IOHEXOL 350 MG/ML 100 ML (OMNIPAQUE 350) VIAL IV ONE; +NS 100 ML (IVPB) BAG IV ONE
--- NOTE | 2018-09-28 11:16 | Diagnostic Imaging Report ---
PROCEDURE: CT neck soft tissue with contrast. TECHNIQUE: Multiple contiguous axial images were obtained through the neck after the administration of contrast. Auto Exposure Controls were utilized during the CT exam to meet ALARA standards for radiation dose reduction. INDICATION: Neck mass. FINDINGS: Reportedly, the patient has a mass in the right supraclavicular region. A marker was placed over the area of concern. In this region, there is a 1.7 x 1.7 cm rounded area of mixed density just below the skin surface. This would correspond to the 2.0 x 1.7 x 1.0 cm area of mixed echogenicity seen in this region on the recent ultrasound exam of 09/20/2018. This finding has developed in the interval since the previous CT chest exam of 09/15/2017. This may be related to a mild inflammatory/infectious process. There is no other mass or adenopathy involving the neck. As noted on the prior exam, there are numerous surgical clips about the sternocleidomastoid muscle on the right. Correlation of the patient's surgical history would be recommended. The parotid and submandibular glands appear generally symmetrical. The thyroid gland is not enlarged and the gland appears homogeneous. The carotid or vertebrobasilar systems are well opacified. There is no hemodynamically significant stenosis of either carotid system. The bone windows show no sign of a fracture or of a destructive lesion. There is degenerative disc and bony disease at C5-C6 and C6-C7. The lung apices are clear. There are mild emphysematous changes in both upper lobes. The intracranial contents, where visualized, are unremarkable. IMPRESSION: 1. There is a small complex mass in the area of the patient's palpable abnormality in the right supraclavicular region. This finding would correspond to the abnormality identified on the recent ultrasound exam of 09/20/2018. Most likely this is a small inflammatory/infectious process. Clinical followup is recommended. 2. There is no other mass or adenopathy involving the neck and there is no sign of an acute abnormality. 3. There are surgical clips about the sternocleidomastoid muscle on the right. Correlation the patient's surgical history would recommended. 4. These results were discussed with Nima Tenorio APRN. Dictated by: Dictated on workstation # [id number]
== END ==
LOC: RAD 09:08
PROVIDERS: ATTEND Nurse Practitioner Community Health
DX: I10 Essential (primary) hypertension (principal); R22.1 Localized swelling, mass and lump, neck
CPT/HCPCS: 70491

== ENCOUNTER 2018-10-08 12:33 | Emergency (ER) | payer MEDICARE, MEDICAID | END 2018-10-08 14:20 | disposition home or self-care (01) | LOC: ER 12:33 ==

== ENCOUNTER 2018-10-10 05:44 | Outpatient (CLI) | payer MEDICARE, MEDICAID ==
[~2018-10-10] VITALS: Ht 170.2 cm; Wt 70.3 kg
[~2018-10-10 05:44] MED LIST changes: +DOXY100T2 PO; -HEParin (CENTRAL IV FLUSH) 500 UNIT/5 ML SYR IV ONE; -HOLD METFORMIN - RECEIVED CONTRAST 20 ML VIAL IV SCH; -IOHEXOL 350 MG/ML 100 ML (OMNIPAQUE 350) VIAL IV ONE; -NS 100 ML (IVPB) BAG IV ONE
[2018-10-10] MEDS ORDERED: OMEP20CA12 PO (10:29)
[2018-10-10] MEDS ORDERED: BUPR600F2 MM (10:29)
[2018-10-10] MEDS ORDERED: MORP15TA PO (10:29)
[2018-10-10] MEDS ORDERED: FLUT1BLS3 IH (10:29)
[2018-10-10] MEDS ORDERED: CYCL10TA9 PO (10:29)
[2018-10-10] MEDS ORDERED: ALBU18HF2 IH (10:29)
[2018-10-10] MEDS ORDERED: ONDA8TAB13 PO (10:29)
[2018-10-10] MEDS ORDERED: LEVO75TA6 PO (10:29)
[2018-10-10] MEDS ORDERED: RIVA20TA PO (10:38)
== END 2018-10-10 10:43 | disposition home or self-care (01) ==
LOC: PREOP 05:44
PROVIDERS: ATTEND Surgery
DX: Z01.818 Encounter for other preprocedural examination (principal)

== ENCOUNTER 2018-10-12 11:37 | Day surgery (SDC) | payer MEDICARE, MEDICAID ==
[2018-10-12] VITALS (13 sets, daily range): BP systolic 115–158; BP diastolic 80–102
[~2018-10-12] VITALS: Ht 170.2 cm; Wt 70.3 kg
[~2018-10-12 11:37] MED LIST changes: +ALBU18HF2 IH; +BUPR600F2 MM; +FLUT1BLS3 IH; +MORP15TA PO; +ONDA8TAB13 PO; +RIVA20TA PO
[2018-10-12] MEDS ORDERED: ceFAZolin INJECTION 1,000 MG in WATER (STERILE) FOR INJECTION 10 ML IV ONE (12:00)
[2018-10-12] MEDS: LACTATED RINGERS 1,000 ML IV PRN ×2 (12:05→17:10)
[2018-10-12] MEDS ORDERED: ONDANSETRON 4 MG/2 ML (SDV) Z0FRAN ONE ×2 (12:58→14:46)
[2018-10-12] MEDS ORDERED: fentaNYL INJECTION 100 MCG/2 ML AMP ONE ×2 (12:58→14:42)
[2018-10-12] MEDS ORDERED: ONDANSETRON 4 MG/2 ML (SDV) Z0FRAN IV ONE (13:00)
[2018-10-12] MEDS ORDERED: fentaNYL INJECTION 100 MCG/2 ML AMP IV ONE ×2 (13:00→14:30)
[2018-10-12] MEDS ORDERED: RT-ALBUTEROL SULF 2.5 MG/3 ML PRE-MIX VIAL INH ONE (13:00)
[2018-10-12] MEDS ORDERED: RT-ALBUTEROL SULF 2.5 MG/3 ML PRE-MIX VIAL ONE (13:10)
[2018-10-12] MEDS ORDERED: ceFAZolin INJECTION 1,000 MG ONE (14:31)
[2018-10-12] MEDS ORDERED: BUP/EPI 0.5% 1:200,000 (SENSORCAINE) 30 ML VIAL ONE (14:33)
[2018-10-12] MEDS ORDERED: MIDAZOLAM 2 MG/2 ML (VERSED) VIAL ONE (14:40)
[2018-10-12] MEDS ORDERED: LIDOCAINE PF 2% 5 ML (XYLOCAINE) VIAL ONE (14:40)
[2018-10-12] MEDS ORDERED: proPOfol 200 MG/20 ML (DIPRIVAN) VIAL IV ONE (14:40)
[2018-10-12] MEDS ORDERED: DEXAMETHASONE 10 MG/ML (DECADRON) 1 ML VIAL ONE (14:46)
--- NOTE | 2018-10-12 15:45 | Progress Note-Pre Operative ---
Pre-Operative Progress Note H&P Reviewed The H&P was reviewed, patient examined and no changes noted. Date Seen by Provider: Oct 12, 2018 Time Seen by Provider: 15:10 Date H&P Reviewed: Oct 12, 2018 Time H&P Reviewed: 15:10 Pre-Operative Diagnosis: cyst of right neck BRANDI DIAZ DO Oct 12, 2018 15:45
--- NOTE | 2018-10-12 16:10 | Progress Note-Post Operative ---
Post-Operative Progess Note Surgeon (s)/Steel Turner (s) Surgeon BRANDI DIAZ DO Steel Turner: NA Pre-Operative Diagnosis cyst of right neck Post-Operative Diagnosis SAME Procedure & Operative Findings Date of Procedure 10/12/18 Procedure Performed/Findings excision cyst right neck Anesthesia Type gen Estimated Blood Loss Estimated blood loss (mL): min Specimens/Packing Specimens Removed cyst right neck BRANDI DIAZ DO Oct 12, 2018 16:10
--- NOTE | 2018-10-12 16:12 | Discharge Inst-Simple/Standard ---
Discharge Inst-Standard Patient Instructions/Follow Up Plan of Care/Instructions/FU: 2 weeks Emily Activity as Tolerated: No Discharge Diet: Regular Diet Other Inst to Patient Follow up Appt: Make appointment for 2 week. Instructions: No lifting greater than 10 pounds. No strenuous activity. May shower in 24 hours, no tub bath or soaking. Use incentive spirometer at home as directed. No Smoking Skin/Wound Care: You have special glue over incisions it will fall off on its own. Symptoms to Report: Appetite Changes, Extremity Discoloration, Numbness/Tingling, Swelling I ncreased, Bleeding Excessive, Eyesight Changes, Pain Increased, Urine Color Change, Constipation(Persistent), Fever over 101 degree F, Pain/Pressure in chest, Urinating Difficulty, Cough Up/Vomit Blood, Heart Beat Irreg/Pounding, Pain/Pressure in jaw, Vaginal Bleeding Increase, Cramps in feet or legs, Lightheadedness, Pain/Pressure in shoulder, Diarrhea(Persistent), Memory Changes Suddenly, Questions/Concerns, Weight gain consecutive days, Dizziness/Fainting, Nausea/Vomiting, Shortness of Breath, Weight gain over 2 pounds If questions or concerns contact your physician Or seek help at emergency department. BRANDI DIAZ DO Oct 12, 2018 16:12
[2018-10-12] MEDS ORDERED: SEVOFLURANE (ULTANE) 15 ML INHAL SOLN ONE (16:27)
[2018-10-12] MEDS ORDERED: LABETALOL HCL 20 MG/4 ML VIAL ONE (16:28)
[2018-10-12] MEDS ORDERED: morphine INJ 10 MG/ML 1ML (SYR OR VIAL) IVP ONE (16:30)
[2018-10-12] MEDS ORDERED: LABETALOL HCL 100 MG/20 ML VIAL IV PRN (16:30)
[2018-10-12] MEDS ORDERED: ONDANSETRON 4 MG/2 ML (SDV) Z0FRAN IVP PRN (16:30)
[2018-10-12] MEDS ORDERED: morphine INJ 10 MG/ML 1ML (SYR OR VIAL) ONE (16:42)
[2018-10-12] MEDS ORDERED: HYDROcodone/APAP 5 MG/325 MG (LORTAB) TAB ONE (18:10)
[2018-10-12] MEDS ORDERED: HYDROcodone/APAP 5 MG/325 MG (LORTAB) TAB PO ONE (18:15)
[2018-10-12] MEDS ORDERED: HEParin (CENTRAL IV FLUSH) 500 UNIT/5 ML SYR ONE (18:36)
--- NOTE | 2018-10-12 21:35 | OPERATIVE REPORT ---
DATE OF SERVICE: 10/12/2018 PREOPERATIVE DIAGNOSIS: Cyst of right neck. POSTOPERATIVE DIAGNOSIS: Cyst of right neck. PROCEDURE: Excision of cyst, right neck 1.6 x 5 cm. SURGEON: Brandi Diaz DO ANESTHESIA: General. ESTIMATED BLOOD LOSS: Minimal. COMPLICATIONS: None. INDICATIONS: The patient is a 53-year-old female with a cyst on the right neck, which has been bothering him for quite some time. She understands risks and benefits of procedure and wished to proceed with procedure. Consent was signed in the chart. DESCRIPTION OF PROCEDURE: The patient was taken to the operating suite. She was prepped and draped in sterile fashion. Surgical pause was performed. An elliptical incision measuring 1.6 x 5 cm was made around the palpable cyst. The subcutaneous tissue then began to be dissected around using cautery. The cyst cavity was visualized. The cyst was continued to be dissected around until the cyst and the subcutaneous tissues were removed completely. The wound was then irrigated and the subcutaneous tissues were then reapproximated using 3-0 Vicryl. The skin was then closed using 4-0 Monocryl in a running subcuticular fashion. The right neck was then washed and dried and Skin Affix was placed over the incisions. The patient tolerated the procedure well without complication. She was taken to recovery room in stable condition. Job ID: [id number] DocumentID: [id number] Dictated Date: 10/12/2018 20:01:00 Advertising Writer Date: 10/12/2018 21:34:45 Dictated By: BRANDI DIAZ DO
== END 2018-10-12 18:50 | disposition home or self-care (01) ==
LOC: SDC 11:37
PROVIDERS: ATTEND Surgery
DX: L72.0 Epidermal cyst (principal); I25.10 Atherosclerotic heart disease of native coronary artery without angina pectoris; I12.9 Hypertensive chronic kidney disease with stage 1 through stage 4 chronic kidney disease, or unspecified chronic kidney disease; N18.9 Chronic kidney disease, unspecified; I73.9 Peripheral vascular disease, unspecified; Z95.5 Presence of coronary angioplasty implant and graft; G47.33 Obstructive sleep apnea (adult) (pediatric); J44.9 Chronic obstructive pulmonary disease, unspecified; K21.9 Gastro-esophageal reflux disease without esophagitis; M32.9 Systemic lupus erythematosus, unspecified; F17.210 Nicotine dependence, cigarettes, uncomplicated; Z79.01 Long term (current) use of anticoagulants; Z79.899 Other long term (current) drug therapy
CPT/HCPCS: 87081; 94640

== ENCOUNTER → 2018-12-19 | Outpatient (RCR) | payer MEDICARE, MEDICAID ==
[2018-09-26 14:32] LABS: BUN/CREATININE RATIO 13; CREATININE SERUM 0.92 MG/DL (0.60-1.30); GFR ESTIMATED > 60
[~2018-12-19] MED LIST changes: +OMEP20CA13 PO
[2018-12-19 15:05] LABS: BASOPHILS % (AUTO) 0 % (0-10); EOSINOPHILS % (AUTO) 0 % (0-10); HEMATOCRIT 44 % (35-52); HEMOGLOBIN 15.7 G/DL (11.5-16.0); LYMPHOCYTES # (AUTO) 1.3 X 10^3 (1.0-4.0); LYMPHOCYTES % (AUTO) 13 % (12-44); MEAN CORPUSCULAR HEMOGLOBIN 36 PG (25-34); MEAN CORPUSCULAR HGB CONC 35 G/DL (32-36); MEAN CORPUSCULAR VOLUME 101 FL (80-99); MONOCYTES # (AUTO) 0.2 X 10^3 (0.0-1.0); MONOCYTES % (AUTO) 2 % (0-12); NEUTROPHILS # (AUTO) 7.9 X 10^3 (1.8-7.8); NEUTROPHILS % (AUTO) 84 % (42-75); PLATELET COUNT 165 10^3/uL (130-400); RED CELL DISTRIBUTION WIDTH 12.3 % (10.0-14.5); WHITE BLOOD COUNT 9.4 10^3/uL (4.3-11.0)
[2018-12-19 15:23] LABS: ALBUMIN 4.2 GM/DL (3.2-4.5); BILIRUBIN,TOTAL 0.4 MG/DL (0.1-1.0); CALCIUM 9.5 MG/DL (8.5-10.1); CREATININE SERUM 0.97 MG/DL (0.60-1.30); POTASSIUM 4.7 MMOL/L (3.6-5.0); TOTAL PROTEIN 7.2 GM/DL (6.4-8.2)
== END | disposition home or self-care (01) ==
LOC: ONC 09-20 09:21
PROVIDERS: ATTEND Internal Medicine Hematology & Oncology
DX: D68.62 Lupus anticoagulant syndrome (principal); D50.0 Iron deficiency anemia secondary to blood loss (chronic); E11.9 Type 2 diabetes mellitus without complications; E03.9 Hypothyroidism, unspecified; I10 Essential (primary) hypertension; J44.9 Chronic obstructive pulmonary disease, unspecified; F32.9 Major depressive disorder, single episode, unspecified; F17.200 Nicotine dependence, unspecified, uncomplicated; G47.33 Obstructive sleep apnea (adult) (pediatric); Z86.718 Personal history of other venous thrombosis and embolism; Z86.711 Personal history of pulmonary embolism; Z86.2 Personal history of diseases of the blood and blood-forming organs and certain disorders involving the immune mechanism; Z79.01 Long term (current) use of anticoagulants; Z45.2 Encounter for adjustment and management of vascular access device
CPT/HCPCS: 36591; 80053; 82565; 82728; 84520; 85025; 96523

== ENCOUNTER → 2019-02-22 | Outpatient (CLI) | payer MEDICARE, MEDICAID ==
--- NOTE | 2019-02-22 15:45 | Diagnostic Imaging Report ---
PROCEDURE: US right lower extremity venous. TECHNIQUE: Multiple real-time grayscale images were obtained over the right lower extremity in various projections. Additional spectral analysis and color Doppler duplex images were also obtained. INDICATION: Leg pain and swelling. FINDINGS: The previous right lower extremity venous Doppler exam of 05/16/2014 noted thrombosis of the superficial femoral and popliteal veins. On this exam, there is still evidence of thrombus formation in the superficial femoral vein. The remainder of the deep venous system shows fairly good blood flow and compressibility. IMPRESSION: 1. There is thrombosis of the superficial femoral vein. Whether this is chronic, acute or combination of both not certain. 2. These results were called to Dutch Chavarria by our sinologist. Dictated by: Dictated on workstation # [id number]
== END ==
LOC: RAD 14:07
PROVIDERS: ATTEND Nurse Practitioner Adult Health
DX: I82.811 Embolism and thrombosis of superficial veins of right lower extremity (principal); D68.59 Other primary thrombophilia

== ENCOUNTER 2019-03-21 10:47 | Outpatient (RCR) | payer MEDICARE, MEDICAID ==
[~2019-03-21 10:47] MED LIST changes: +OMEP-280 PO; -OMEP20CA13 PO
== END 2019-03-26 | disposition home or self-care (01) ==
LOC: ONC 10:47
PROVIDERS: ATTEND Internal Medicine Hematology & Oncology
DX: D68.62 Lupus anticoagulant syndrome (principal); D50.0 Iron deficiency anemia secondary to blood loss (chronic); E11.9 Type 2 diabetes mellitus without complications; E03.9 Hypothyroidism, unspecified; I10 Essential (primary) hypertension; J44.9 Chronic obstructive pulmonary disease, unspecified; F32.9 Major depressive disorder, single episode, unspecified; F17.200 Nicotine dependence, unspecified, uncomplicated; G47.33 Obstructive sleep apnea (adult) (pediatric); Z86.718 Personal history of other venous thrombosis and embolism; Z86.711 Personal history of pulmonary embolism; Z86.2 Personal history of diseases of the blood and blood-forming organs and certain disorders involving the immune mechanism; Z79.01 Long term (current) use of anticoagulants; Z45.2 Encounter for adjustment and management of vascular access device
CPT/HCPCS: 96523

== ENCOUNTER → 2019-05-08 | Outpatient (CLI) | payer MEDICARE, MEDICAID ==
--- NOTE | 2019-05-08 15:53 | Diagnostic Imaging Report ---
INDICATION: DVT. TECHNIQUE: Grayscale, color flow, and duplex Doppler evaluation of both the right and left upper extremity deep venous systems was performed. FINDINGS: Both the right and left upper extremity deep venous systems are unremarkable. The right and left internal jugular, subclavian, and axillary veins are widely patent. Both brachial as well as basilic and cephalic veins are patent. The radial and ulnar veins are patent. No thrombus is seen. No fluid collections are identified. IMPRESSION: No evidence of right or left upper extremity DVT. Dictated by: Dictated on workstation # [id number]
== END ==
LOC: RAD 13:10
PROVIDERS: ATTEND Nurse Practitioner Adult Health
DX: I82.409 Acute embolism and thrombosis of unspecified deep veins of unspecified lower extremity (principal)
CPT/HCPCS: 93970

== ENCOUNTER → 2019-05-17 | Outpatient (CLI) | payer MEDICARE, MEDICAID | LOC: RAD 13:05 | PROVIDERS: ATTEND Nurse Practitioner Adult Health | DX: I27.20 Pulmonary hypertension, unspecified (principal) | CPT/HCPCS: 93306 ==

== ENCOUNTER 2019-06-03 16:40 | Observation (INO) | payer MEDICARE, MEDICAID ==
[2019-06-03] VITALS (8 sets, daily range): BP systolic 118–167; BP diastolic 75–100
[~2019-06-03] VITALS: Ht 170.2 cm; Wt 77.7 kg
[2019-06-03] MEDS: NITROGLYCERIN 0.4 MG SL TABS BTL 25'S SL PRN ×2 (17:17→17:35)
[2019-06-03 17:22] LABS: BASOPHILS % (AUTO) 0 % (0-10); EOSINOPHILS # (AUTO) 0.2 10^3/uL (0.0-0.3); EOSINOPHILS % (AUTO) 3 % (0-10); HEMATOCRIT 42 % (35-52); HEMOGLOBIN 13.6 G/DL (11.5-16.0); LYMPHOCYTES # (AUTO) 2.6 X 10^3 (1.0-4.0); LYMPHOCYTES % (AUTO) 36 % (12-44); MEAN CORPUSCULAR HEMOGLOBIN 30 PG (25-34); MEAN CORPUSCULAR HGB CONC 32 G/DL (32-36); MEAN CORPUSCULAR VOLUME 94 FL (80-99); MEAN PLATELET VOLUME 11.2 FL (7.4-10.4); MONOCYTES # (AUTO) 0.5 X 10^3 (0.0-1.0); MONOCYTES % (AUTO) 7 % (0-12); NEUTROPHILS # (AUTO) 3.9 X 10^3 (1.8-7.8); NEUTROPHILS % (AUTO) 54 % (42-75); PLATELET COUNT 183 10^3/uL (130-400); RED CELL DISTRIBUTION WIDTH 13.4 % (10.0-14.5); WHITE BLOOD COUNT 7.3 10^3/uL (4.3-11.0)
[2019-06-03 17:37] LABS: INR 0.9 (0.8-1.4); PROTHROMBIN TIME PATIENT 12.3 SEC (12.2-14.7)
[2019-06-03 17:45] LABS: LIPASE 31 U/L (8-78)
[2019-06-03 17:47] LABS: ALANINE AMINOTRANSFERASE 17 U/L (0-55); ALKALINE PHOSPHATASE 151 U/L (40-136); BILIRUBIN,TOTAL 0.3 MG/DL (0.1-1.0); BUN/CREATININE RATIO 7; CALCIUM 9.5 MG/DL (8.5-10.1); CARBON DIOXIDE 26 MMOL/L (21-32); CHLORIDE 101 MMOL/L (98-107); GFR ESTIMATED > 60; GLUCOSE 250 MG/DL (70-105); MAGNESIUM 1.8 MG/DL (1.6-2.4); SODIUM 138 MMOL/L (135-145); TOTAL PROTEIN 7.2 GM/DL (6.4-8.2)
--- NOTE | 2019-06-03 17:57 | Diagnostic Imaging Report ---
INDICATION: Chest pain. EXAMINATION: Frontal view of the chest was obtained at 5:43 p.m. COMPARISON: 05/25/2017. FINDINGS: Heart is normal in size. There are mild chronic appearing increased interstitial markings. There is no acute consolidation, pneumothorax or pleural fluid. IMPRESSION: Mild chronic appearing increased interstitial markings with no acute process in the chest. Dictated by: Dictated on workstation # [id number]
[2019-06-03 18:09] LABS: FREE T4 (FREE THYROXINE) 1.15 NG/DL (0.70-1.48)
[2019-06-03] MEDS ORDERED: NS 100 ML (IVPB) BAG IV ONE (18:15)
[2019-06-03] MEDS ORDERED: IOHEXOL 350 MG/ML 100 ML (OMNIPAQUE 350) VIAL IV ONE (18:15)
[2019-06-03] MEDS ORDERED: CATHETER FLUSH 10 ML SYR IV PRN (18:15)
[2019-06-03] MEDS ORDERED: HOLD METFORMIN - RECEIVED CONTRAST 20 ML VIAL IV SCH (18:15)
[2019-06-03] MEDS ORDERED: fentaNYL INJECTION 100 MCG/2 ML AMP IVP ONE ×2 (18:15→19:15)
--- NOTE | 2019-06-03 18:47 | Diagnostic Imaging Report ---
INDICATION: Chest pain and pressure. TECHNIQUE: Multiple contiguous axial images were obtained through the chest after uneventful bolus administration of intravenous contrast. 3D reconstructed CTA MIP acquisitions were also performed. Auto Exposure Controls were utilized during the CT exam to meet ALARA standards for radiation dose reduction. Comparison made to 09/15/2017. The pulmonary parenchymal vessels are well-opacified with no evidence of pulmonary emboli. The thoracic aortic arch is patent with no evidence of aneurysm or dissection. The great vessel origins are patent. There are some borderline pretracheal nodes, the largest measured about 11 mm. These nodes appeared similar on the previous study. There is some pleural thickening in the right inferior chest posteriorly but no well-defined pleural fluid collection. There is some linear scarring in the right lower lobe. There is calcified granuloma in the right middle lobe. There are some emphysematous changes. There are ill-defined sub-solid densities in the upper lobes on both sides which may represent pneumonitis, which were not present on previous study. There does appear to be diffuse esophageal thickening. Visualized portions of the upper abdomen demonstrate an IVC filter in place. There is a central venous catheter from inferior approach with tip overlying the inferior portion of the right atrium. IMPRESSION: No CT evidence of pulmonary emboli or aortic dissection or aneurysm. There is a borderline sized pretracheal node which is stable compared to the prior study. There is some pleural scarring and parenchymal scarring in the left lower lobe. There are underlying emphysematous changes. There are some patchy areas of ill-defined density in the upper lobes on both sides which may represent pneumonitis, for which follow-up is recommended. There appears to be diffuse esophageal thickening. Dictated by: Dictated on workstation # [id number]
[2019-06-03 18:48] LABS: BILIRUBIN,URINE NEGATIVE (NEGATIVE); CLARITY,URINE SL CLOUDY; COLOR,URINE YELLOW; GLUCOSE, URINE (UA) 1+ (NEGATIVE); KETONES,URINE NEGATIVE (NEGATIVE); LEUKOCYTE ESTERASE ,URINE TRACE (NEGATIVE); NITRITE,URINE NEGATIVE (NEGATIVE); PROTEIN,URINE NEGATIVE (NEGATIVE)
[2019-06-03 18:54] LABS: RBC,URINE RARE /HPF; WBC,URINE 0-2 /HPF
--- NOTE | 2019-06-03 18:54 | ED Chest Pain ---
General Chief Complaint: Chest Pain Stated Complaint: HEART RACING/CHEST PRESSURE Nursing Triage Note: PT TO ROOM 07 WITH C/O CHEST PRESSURE AND PALPATATIONS STARTING APPROX 1 HOUR PATENTS EXAMINER Nursing Sepsis Screen: No Definite Risk Source: patient, old records Exam Limitations: no limitations History of Present Illness Date Seen by Provider: Jun 03, 2019 Time Seen by Provider: 16:45 Initial Comments This 53-year-old woman presents to the emergency room with complaints of chest pressure, tachycardia, leg aching, and shortness of breath. She reports symptoms have been present for a few weeks but the more intense chest pressure started about 30 minutes prior to arrival. She rates it as 7/10. Patient has history of lupus and DVTs. She is using Arixtra for treatment presently. She reports failing Xarelto therapy in the past. [facility]. Patient is very anxious. Heart rate is in the 120s during assessment. She started bupropion a few weeks ago for smoking cessation. She wonders if this is contributing to her symptoms. Patient denies any history of known cardiac disease. She denies ever having a workup. The recall history in this chart states cardiac stent so the history is confusing. Patient states she has a lot of anxiety in the healthcare setting because her from a supposedly missed abdominal aortic aneurysm according to her report. This makes healthcare encounters intense for her. Allergies and Home Medications Allergies Coded Allergies: droperidol (Unverified Allergy, Severe, SOB, 02/22/11) ranitidine HCl (Verified Allergy, Intermediate, SOB, DIAPHORETIC, 02/22/11) Soap (Unverified Allergy, Unknown, RASH, 07/03/13) aspirin (Verified Allergy, Unknown, 07/03/13) codeine (Verified Allergy, Unknown, 07/03/13) ketorolac tromethamine (Verified Allergy, Unknown, 07/03/13) metoclopramide HCl (Unverified Allergy, Unknown, 07/03/13) povidone-iodine (Unverified Allergy, Unknown, RASH, 07/03/13) prochlorperazine edisylate (Unverified Allergy, Unknown, 07/03/13) prochlorperazine maleate (Unverified Allergy, Unknown, 07/03/13) sumatriptan (Verified Allergy, Unknown, 07/03/13) sumatriptan succinate (Verified Allergy, Unknown, 07/03/13) Home Medications Albuterol Sulfate 18 Gm Hfa.aer.ad, 2 PUFF IH Q4H PRN for WHEEZING, (Reported) Buprenorphine HCl 600 Mcg Film, 600 MCG MM Q12H, (Reported) Cyclobenzaprine HCl 10 Mg Tablet, 10 MG PO Q12H, (Reported) Doxycycline Hyclate 100 Mg Tablet, 100 MG PO BID Prescribed by: EVERETT ERNST on 10/08/18 1402 Fluticasone/Umeclidin/Vilanter 1 Each Blst.w.dev, 1 PUFF IH BID, (Reported) Levothyroxine Sodium 75 Mcg Tablet, 75 MCG PO DAILY, (Reported) Morphine Sulfate 15 Mg Tablet, 15 MG PO Q12H PRN for PAIN-MILD TO MODERATE, (Reported) Omeprazole 20 Mg Capsule.dr, 20 MG PO DAILY, (Reported) Ondansetron 8 Mg Tab.rapdis, 8 MG PO Q8H PRN for NAUSEA/VOMITING, (Reported) Rivaroxaban 20 Mg Tablet, 20 MG PO DAILY, (Reported) Patient Home Medication List Home Medication List Reviewed: Yes Review of Systems Review of Systems Constitutional: no symptoms reported EENTM: No Symptoms Reported Respiratory: See HPI Cardiovascular: See HPI Gastrointestinal: No Symptoms Reported Genitourinary: No Symptoms Reported Musculoskeletal: see HPI Skin: no symptoms reported Psychiatric/Neurological: See HPI Endocrine: No Symptoms Reported Hematologic/Lymphatic: No Symptoms Reported Past Tsqeksz-Soscrg-Bkuvru Hx Past Med/Social Hx: Reviewed and Corrections made Patient Social History Alcohol Use: Denies Use Recreational Drug Use: No Smoking Status: Current Everyday Smoker Type Used: Cigarettes 2nd Hand Smoke Exposure: No Recent Foreign Travel: No Contact w/Someone Who Travel: No Recent Infectious Disease Expo: No Recent Hopitalizations: No Physical Abuse: No Sexual Abuse: No Mistreated: No Fear: No Immunizations Up To Date Tetanus Booster (TDap): Less than 5yrs Date of Pneumonia Vaccine: Jan 16, 2014 Date of Influenza Vaccine: Jan 17, 2016 Seasonal Allergies Seasonal Allergies: No Past Medical History Surgeries: Yes (port, several bowel obstruction sx, IVC filter, bile duct stent) Abdominal, Appendectomy, Bowel Surgery, Cardiac, Coronary Stent, Eye Surgery, Gallbladder, Hysterectomy, Oophorectomy, Orthopedic, Vascular Surgery Respiratory: Yes (O2 AND trilogy machine) Asthma, Chronic Bronchitis, Pulmonary Embolism, Sleep Apnea, COPD Cardiac: Yes (MULTIPLE DVT'S IN ARMS AND LEGS, 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 Sexually Transmitted Disease: No HIV/AIDS: No Genitourinary: Yes Kidney Stones, Renal Failure Gastrointestinal: Yes Gastroesophageal Reflux, Obstructive Bowel, Pancreatitis, Gall Bladder Disease Musculoskeletal: Yes (CHRONIC GENERALIZED PAIN--NARCOTIC DEPENDENT) Arthritis, Chronic Back Pain Endocrine: Yes (diabetes prior to wt loss) Hypothyroidsim, Diabetes, Non-Insulin dep, Lupus HEENT: No Hearing Impairment: Denies Cancer: No Psychosocial: Yes Anxiety, Depression Integumentary: No Blood Disorders: Yes (DVT'S/P.E.'S ; PAD) Adverse Reaction/Blood Tranf: No Family Medical History Asthma 19 FATHER G8 SISTER Diabetes mellitus G8 SISTER Hypercholesterolemia G8 SISTER Hypertension G8 SISTER Kidney disease 19 MOTHER Myocardial infarction 19 FATHER No Family History of: AIDS Abdominal aortic aneurysm Johnston's disease Alcoholism Alzheimer's disease Aphasia Arthritis Cancer of mouth Cardiovascular disease Cataracts Colon cancer Completed stroke Congenital disease Congenital heart disease Coronary thrombosis Cystic fibrosis Deafness or hearing loss Dementia Drug abuse Dysphasia Fibrocystic disease of breast Gastroenteritis Glaucoma Headache disorder Infertility Neoplasm Not obtainable due to adoption Osteoporosis Parkinson's disease Prostate cancer Psychosocial problem Respiratory disorder Seizure disorder Severe allergy Thyroid disease Tuberculosis Visual disorder Heart Disease, Cancer, GI Disease Physical Exam Vital Signs Vital Signs - First Documented 06/03/19 16:51 Temp 37.7 Pulse 123 Resp 20 B/P (MAP) 186/113 (137) O2 Delivery Room Air Capillary Refill : Less Than 3 Seconds Height, Weight, BMI Height: 5'7.00" Weight: 155lbs. 0.0oz. 70.701196of; 27.00 BMI Method:Stated General Appearance: WD/WN, Moderate Distress HEENT: PERRL/EOMI, Normal ENT Inspection Neck: Normal Inspection Respiratory: Lungs Clear, Normal Breath Sounds, No Accessory Muscle Use, No Respiratory Distress Cardiovascular: No Edema, No Murmur, Normal Peripheral Pulses, Tachycardia (Regular) Gastrointestinal: Normal Bowel Sounds, Non Tender, Soft Extremity: Other (Mild edema and chronic skin changes) Neurologic/Psychiatric: Alert, Oriented x3, No Motor/Sensory Deficits, director of audiology II- XII Norm as Tested, Other (Anxious) Skin: Normal Color, Warm/Dry Progress/Results/Core Measures Results/Orders Lab Results Laboratory Tests Test 06/03/19 17:02 06/03/19 18:32 Range/Units White Blood Count 7.3 4.3-11.0 10^3/uL Red Blood Count 4.51 4.35-5.85 10^6/uL Hemoglobin 13.6 11.5-16.0 G/DL Hematocrit 42 35-52 % Mean Corpuscular Volume 94 80-99 FL Mean Corpuscular Hemoglobin 30 25-34 PG Mean Corpuscular Hemoglobin Concent 32 32-36 G/DL Red Cell Distribution Width 13.4 10.0-14.5 % Platelet Count 183 130-400 10^3/uL Mean Platelet Volume 11.2 H 7.4-10.4 FL Neutrophils (%) (Auto) 54 42-75 % Lymphocytes (%) (Auto) 36 12-44 % Monocytes (%) (Auto) 7 0-12 % Eosinophils (%) (Auto) 3 0-10 % Basophils (%) (Auto) 0 0-10 % Neutrophils # (Auto) 3.9 1.8-7.8 X 10^3 Lymphocytes # (Auto) 2.6 1.0-4.0 X 10^3 Monocytes # (Auto) 0.5 0.0-1.0 X 10^3 Eosinophils # (Auto) 0.2 0.0-0.3 10^3/uL Basophils # (Auto) 0.0 0.0-0.1 10^3/uL Prothrombin Time 12.3 12.2-14.7 SEC INR Comment 0.9 0.8-1.4 Activated Partial Thromboplast Time 32 24-35 SEC Sodium Level 138 135-145 MMOL/L Potassium Level 4.0 3.6-5.0 MMOL/L Chloride Level 101 98-107 MMOL/L Carbon Dioxide Level 26 21-32 MMOL/L Anion Gap 11 5-14 MMOL/L Blood Urea Nitrogen 6 L 7-18 MG/DL Creatinine 0.90 0.60-1.30 MG/DL Estimat Glomerular Filtration Rate > 60 BUN/Creatinine Ratio 7 Glucose Level 250 H 70-105 MG/DL Calcium Level 9.5 8.5-10.1 MG/DL Corrected Calcium 9.5 8.5-10.1 MG/DL Magnesium Level 1.8 1.6-2.4 MG/DL Total Bilirubin 0.3 0.1-1.0 MG/DL Aspartate Amino Transf (AST/SGOT) 19 5-34 U/L Alanine Aminotransferase (ALT/SGPT) 17 0-55 U/L Alkaline Phosphatase 151 H 40-136 U/L Myoglobin 21.5 10.0-92.0 NG/ML Troponin I < 0.028 <0.028 NG/ML C-Reactive Protein High Sensitivity 1.72 H 0.00-0.50 MG/DL B-Type Natriuretic Peptide 19.5 <100.0 PG/ML Total Protein 7.2 6.4-8.2 GM/DL Albumin 4.0 3.2-4.5 GM/DL Lipase 31 8-78 U/L Thyroid Stimulating Hormone (TSH) 1.08 0.35-4.94 UIU/ML Free Thyroxine 1.15 0.70-1.48 NG/DL Urine Color YELLOW Urine Clarity SL CLOUDY Urine pH 8.0 5-9 Urine Specific [place] 1.010 L 1.016-1.022 Urine Protein NEGATIVE NEGATIVE Urine Glucose (UA) 1+ H NEGATIVE Urine Ketones NEGATIVE NEGATIVE Urine Nitrite NEGATIVE NEGATIVE Urine Bilirubin NEGATIVE NEGATIVE Urine Urobilinogen 0.2 < = 1.0 MG/DL Urine Leukocyte Esterase TRACE H NEGATIVE Urine RBC (Auto) NEGATIVE NEGATIVE Urine RBC RARE /HPF Urine WBC 0-2 /HPF Urine Squamous Epithelial Cells 5-10 /HPF Urine Crystals NONE /LPF Urine Bacteria FEW H /HPF Urine Casts NONE /LPF Urine Mucus NEGATIVE /LPF Urine Culture Indicated NO Urine Opiates Screen POSITIVE H NEGATIVE Urine Oxycodone Screen NEGATIVE NEGATIVE Urine Methadone Screen NEGATIVE NEGATIVE Urine Propoxyphene Screen NEGATIVE NEGATIVE Urine Barbiturates Screen NEGATIVE NEGATIVE Ur Tricyclic Antidepressants Screen NEGATIVE NEGATIVE Urine Phencyclidine Screen NEGATIVE NEGATIVE Urine Amphetamines Screen NEGATIVE NEGATIVE Urine Methamphetamines Screen NEGATIVE NEGATIVE Urine Benzodiazepines Screen NEGATIVE NEGATIVE Urine Cocaine Screen NEGATIVE NEGATIVE Urine Cannabinoids Screen POSITIVE H NEGATIVE Micro Results Microbiology 06/03/19 Influenza Types A,B Antigen (WILLIAM) - Final, Complete My Orders Orders - RODNEY SHAW MD Cbc With Automated Diff (06/03/19 16:59) Magnesium (2/16/20 16:59) Chest 1 View, Ap/Pa Only (06/03/19 16:59) Ekg Tracing (06/03/19 16:59) Comprehensive Metabolic Panel (06/03/19 16:59) Myoglobin Serum (06/03/19 16:59) Protime With Inr (06/03/19 16:59) Partial Thromboplastin Time (06/03/19 16:59) O2 (06/03/19 16:59) Monitor-Rhythm Ecg Trace Only (06/03/19 16:59) Lipid Panel (06/04/19 06:00) Ed Iv/Invasive Line Start (06/03/19 16:59) Troponin I (06/03/19 16:59) Lipase (06/03/19 17:09) Nitroglycerin 0.4 Mg Btl 25's (Nitrostat (06/03/19 17:15) Thyroid Stimulating Hormone (06/03/19 17:11) Free T4 (Free Thyroxine) (06/03/19 17:11) Hs C Reactive Protein (06/03/19 17:33) Drug Screen Stat (Urine) (06/03/19 17:33) Ua Culture If Indicated (06/03/19 17:33) BNP (06/03/19 18:01) Fentanyl Injection (Sublimaze Injection (06/03/19 18:15) Ct Angio Chest W (06/03/19 18:06) Iohexol Injection (Omnipaque 350 Mg/Ml 1 (06/03/19 18:15) Received Contrast (Hold Metformin- Contr (06/03/19 18:15) Sodium Chloride Flush (Catheter Flush Sy (06/03/19 18:15) Ns (Ivpb) (Sodium Chloride 0.9% Ivpb Bag (06/03/19 18:15) Influenza A And B Antigens (06/03/19 18:36) Ns Iv 1000 Ml (Sodium Chloride 0.9%) (06/03/19 18:57) Fentanyl Injection (Sublimaze Injection (06/03/19 19:15) Medications Given in ED Current Medications Medications Dose Ordered Sig/Aye Route Start Time Stop Time Status Last Admin Dose Admin Fentanyl Citrate 50 mcg ONCE ONCE IVP 06/03/19 18:15 06/03/19 18:16 DC 06/03/19 18:15 50 MCG Fentanyl Citrate 50 mcg ONCE ONCE IVP 06/03/19 19:15 06/03/19 19:16 DC 06/03/19 19:15 50 MCG Iohexol 100 ml ONCE ONCE IV 06/03/19 18:15 06/03/19 18:16 DC 06/03/19 18:29 70 ML Nitroglycerin 0.4 mg UD PRN SL 06/03/19 17:15 06/03/19 21:25 DC 06/03/19 17:35 0.4 MG Sodium Chloride 10 ml NEEDED PRN IV 06/03/19 18:15 06/03/19 18:29 10 ML Sodium Chloride 100 ml ONCE ONCE IV 06/03/19 18:15 06/03/19 18:16 DC 06/03/19 18:29 80 ML Vital Signs/I&O 06/03/19 06/03/19 16:51 16:53 Temp 37.7 Pulse 123 Resp 20 B/P (MAP) 186/113 (137) O2 Delivery Room Air Room Air Blood Pressure Mean: 137 Progress Progress Note : Progress Note Chest pain workup was unremarkable. Because of DVT present in the lower extremities, CT angiogram of the chest was obtained. There was some upper lobe pneumonitis but otherwise no acute findings. Specifically there was no PE. Patient's pain was treated with fentanyl. She was hydrated with a liter of IV fluid. Azithromycin was given for possible upper lung atypical pneumonia. I discussed the case with Dr. Anglin who agrees patient should be admitted as she is at risk with history of diabetes, lupus, and smoking, especially since there is no recorded history of cardiac workup in her chart. Dr. Anglin suggested giving Plavix since she is allergic to aspirin. I discussed this with since patient is on the Arixtra. She believed this was an acceptable treatment plan in the inpatient setting. Initial ECG Impression Date: Jun 03, 2019 Initial ECG Impression Time: 16:45 Initial ECG Rate: 126 Initial ECG Rhythm: S.Tach Initial ECG Intervals Sinus tachycardia with no ST elevation or depression. Possible right bundle branch block. No axis deviation. Diagnostic Imaging Diagonstic Imaging: Xray Plain Films/CT/US/NM/MRI: chest Comments Chest x-ray viewed by me and report reviewed. See report below: NAME: MEGAN SOSA REC#: [id number] PT STATUS: REG ER : 1965 PHYSICIAN: RODNEY SHAW MD ADMIT DATE: 06/03/19/ER Signed Date of Exam:06/03/19 CHEST 1 VIEW, AP/PA ONLY INDICATION: Chest pain. EXAMINATION: Frontal view of the chest was obtained at 5:43 p.m. COMPARISON: 05/25/2017. FINDINGS: Heart is normal in size. There are mild chronic appearing increased interstitial markings. There is no acute consolidation, pneumothorax or pleural fluid. IMPRESSION: Mild chronic appearing increased interstitial markings with no acute process in the chest. Dictated by: Dictated on workstation # [id number] Dict: 06/03/191747 Trans: 06/03/191757 PJE [id number] Interpreted by: MAI FERMIN MD Electronically signed by: MAI FERMIN MD 06/03/191757 Diagonstic Imaging: CT Plain Films/CT/US/NM/MRI: chest Comments CT angiogram of the chest viewed by me and report reviewed. See report below: NAME: MEGAN SOSA [facility] REC#: [id number] PT STATUS: REG ER : 1965 PHYSICIAN: RODNEY SHAW MD ADMIT DATE: 06/03/19/ER Dr don Date of Exam:06/03/19 CT ANGIO CHEST W INDICATION: Chest pain and pressure. TECHNIQUE: Multiple contiguous axial images were obtained through the chest after uneventful bolus administration of intravenous contrast. 3D reconstructed CTA MIP acquisitions were also performed. Auto Exposure Controls were utilized during the CT exam to meet ALARA standards for radiation dose reduction. Comparison made to 09/15/2017. The pulmonary parenchymal vessels are well-opacified with no evidence of pulmonary emboli. The thoracic aortic arch is patent with no evidence of aneurysm or dissection. The great vessel origins are patent. There are some borderline pretracheal nodes, the largest measured about 11 mm. These nodes appeared similar on the previous study. There is some pleural thickening in the right inferior chest posteriorly but no well-defined pleural fluid collection. There is some linear scarring in the right lower lobe. There is calcified granuloma in the right middle lobe. There are some emphysematous changes. There are ill-defined sub-solid densities in the upper lobes on both sides which may represent pneumonitis, which were not present on previous study. There does appear to be diffuse esophageal thickening. Visualized portions of the upper abdomen demonstrate an IVC filter in place. There is a central venous catheter from inferior approach with tip overlying the inferior portion of the right atrium. IMPRESSION: No CT evidence of pulmonary emboli or aortic dissection or aneurysm. There is a borderline sized pretracheal node which is stable compared to the prior study. There is some pleural scarring and parenchymal scarring in the left lower lobe. There are underlying emphysematous changes. There are some patchy areas of ill-defined density in the upper lobes on both sides which may represent pneumonitis, for which follow-up is recommended. There appears to be diffuse esophageal thickening. Dictated on workstation # [id number] Dict: 06/03/19 1836 Trans: 06/03/19 1846 [facility] [id number] Interpreted by: MAI FERMIN MD Departure Communication (Admissions) Time/Spoke to Admitting Phy: 19:33 Dr. Venancio Colon at 19:30 Dr. Anglin at 19:25 Impression Primary Impression: Chest pain Qualified Codes: R07.9 - Chest pain, unspecified Additional Impressions: Sinus tachycardia Pneumonitis Disposition: ADMITTED INPATIENT Condition: Improved Admissions Decision to Admit Reason: Admit from ER (General) Decision to Admit/Date: Jun 03, 2019 Time/Decision to Admit Time: 19:30 Departure-Patient Inst. Referrals: ANETTE BLAIR DO (PCP/Family) Primary Care Physician RODNEY SHAW MD Jun 03, 2019 18:54
[2019-06-03 18:55] LABS: BACTERIA,URINE FEW /HPF
[2019-06-03] MEDS ORDERED: NS IV 1000 ML 1,000 ML IV SCH (18:57)
[2019-06-03 19:03] LABS: AMPHETAMINE SCREEN, URINE NEGATIVE (NEGATIVE); BARBITURATE SCREEN URINE NEGATIVE (NEGATIVE); BENZODIAZEPINES SCREEN URINE NEGATIVE (NEGATIVE); CANNABINOID SCREEN, URINE POSITIVE (NEGATIVE); COCAINE SCREEN URINE NEGATIVE (NEGATIVE); METHADONE STAT NEGATIVE (NEGATIVE); METHAMPHETAMINE SCREEN URINE S NEGATIVE (NEGATIVE); OPIATE SCREEN URINE POSITIVE (NEGATIVE); OXYCODONE STAT NEGATIVE (NEGATIVE); PROPOXYPHENE STAT NEGATIVE (NEGATIVE); TRICYCLIC ANTIDEPRESSANTS SCRE NEGATIVE (NEGATIVE)
[2019-06-03] MEDS ORDERED: AZITHROMYCIN 250 MG TAB (ZITHROMAX) PO ONE (19:45)
[2019-06-03] MEDS ORDERED: CLOPIDOGREL 75 MG (PLAVIX) TABLET PO ONE (19:45)
--- NOTE | 2019-06-03 21:05 | NUR ---
MEGAN SOSA admitted to room 429-1, with an admitting diagnosis of CHEST PAIN, SOA, TACHYCARDIA, on 06/03/19 from [place] via WHEELCHAIR, accompanied by STAFF AND SON.MEGAN SOSA introduced to surroundings, call light, bed controls, phone, TV, temperature control, lights, meal times, smoking policy, visitor policy, side rail policy, bathrooms and showers. Patient Rights given to patient in the handbook. MEGAN SOSA verbalizes understanding that [facility] is not responsible for the loss or damage to any personal effects or valuables that are kept in the patients posession during their hospitalization.
[2019-06-03] MEDS ORDERED: HYDROcodone/APAP 5 MG/325 MG (LORTAB) TAB PO PRN (21:30)
--- NOTE | 2019-06-03 21:59 | NUR ---
DR WADE CONTACTED REGARDING PT HOME MED FONDAPARINUX. SAID IT WAS OKAY TO TAKE WITH PLAVIX THAT WAS GIVEN IN ER. PT REPORTS SHE TAKES MORPHINE IR AT HOME INSTEAD OF MORPHINE ER. DR ORDERED TO KEEP THE MORPHINE ER IN [facility]
[2019-06-03] MEDS: PREGABALIN 75 MG (LYRICA) CAP PO SCH (22:21)
[2019-06-03] MEDS: fentaNYL INJECTION 100 MCG/2 ML AMP IV PRN (22:21)
[2019-06-03] MEDS: morphine ER 15 MG (MS CONTIN) TAB PO SCH (22:21)
--- NOTE | 2019-06-03 22:40 | NUR ---
EKG OBTAINED AT THIS TIME. THIS NURSE AND PCT PLACED LEADS ON PT CHEST, PATIENT PULLED GOWN DOWN OVER LEADS, CAUSING ARTIFACT. THIS NURSE AND PCT TOLD PT THAT THE GOWN IS CAUSING A BAD READING, AND THAT IT NEEDED TO BE PULLED OUT OF THE WAY, PT BECAME UPSET, AND SAID, "COULD YOU PLEASE NOT LEAVE MY BREAST EXPOSED FOR ANYONE TO SEE WHEN THEY WALK IN." THIS NURSE AND PCT EXPLAINED TO PT THAT WE DIDN'T MEAN TO EXPOSE HER CHEST, THAT WE NEEDED IT UP FOR THE EKG, AND APOLOGIZED TO PT. PT STATES UNDERSTANDING.
[2019-06-04] VITALS (7 sets, daily range): BP systolic 101–186; BP diastolic 60–113
[2019-06-04] MEDS: ONDANSETRON 4 MG/2 ML (SDV) Z0FRAN IV PRN ×2 (01:38→08:44)
[2019-06-04] MEDS: fentaNYL INJECTION 100 MCG/2 ML AMP IV PRN ×4 (01:43→11:13)
--- NOTE | 2019-06-04 03:18 | NUR ---
DUONEB. CHANCE AND IS BID AND PRN. RT TO REASSESS OR REEVALUATE IN 72 HOURS OR NEEDED. INITIATE 02 TO KEEP SATS ABOVE 90% Addendum: 06/04/19 at 0323 by ALYX BRUNNER RT Amended: Links added.
[2019-06-04] MEDS ORDERED: RT-ALBUTEROL/IPRATROPIUM 3 ML (DUONEB) VIAL INH PRN (03:30)
[2019-06-04 05:20] LABS: BASOPHILS % (AUTO) 0 % (0-10); EOSINOPHILS # (AUTO) 0.2 10^3/uL (0.0-0.3); EOSINOPHILS % (AUTO) 3 % (0-10); HEMATOCRIT 36 % (35-52); HEMOGLOBIN 11.5 G/DL (11.5-16.0); LYMPHOCYTES # (AUTO) 2.1 X 10^3 (1.0-4.0); LYMPHOCYTES % (AUTO) 38 % (12-44); MEAN CORPUSCULAR HEMOGLOBIN 30 PG (25-34); MEAN CORPUSCULAR HGB CONC 32 G/DL (32-36); MEAN CORPUSCULAR VOLUME 95 FL (80-99); MEAN PLATELET VOLUME 11.1 FL (7.4-10.4); MONOCYTES # (AUTO) 0.4 X 10^3 (0.0-1.0); MONOCYTES % (AUTO) 7 % (0-12); NEUTROPHILS # (AUTO) 2.8 X 10^3 (1.8-7.8); NEUTROPHILS % (AUTO) 51 % (42-75); PLATELET COUNT 155 10^3/uL (130-400); RED CELL DISTRIBUTION WIDTH 13.2 % (10.0-14.5); WHITE BLOOD COUNT 5.4 10^3/uL (4.3-11.0)
[2019-06-04 05:42] LABS: ALANINE AMINOTRANSFERASE 15 U/L (0-55); ALBUMIN 3.3 GM/DL (3.2-4.5); ALKALINE PHOSPHATASE 117 U/L (40-136); BILIRUBIN,TOTAL 0.2 MG/DL (0.1-1.0); BUN/CREATININE RATIO 11; CALCIUM 8.8 MG/DL (8.5-10.1); CARBON DIOXIDE 27 MMOL/L (21-32); CHLORIDE 104 MMOL/L (98-107); CHOLESTEROL 166 MG/DL (< 200); CREATININE SERUM 0.72 MG/DL (0.60-1.30); GFR ESTIMATED > 60; GLUCOSE 221 MG/DL (70-105); HDL CHOLESTEROL 43 MG/DL (40-60); POTASSIUM 4.1 MMOL/L (3.6-5.0); SODIUM 138 MMOL/L (135-145); TRIGLYCERIDES 110 MG/DL (<150); VLDL CHOLESTEROL 22 MG/DL (5-40)
[2019-06-04] MEDS ORDERED: LEVOTHYROXINE 75 MCG (LEVOTHROID) TABLET PO SCH (06:30)
--- NOTE | 2019-06-04 06:58 | NUR ---
DR GARZA CALLED TO BE NOTIFIED ABOUT CONSULTATION ON THIS PATIENT
[2019-06-04] MEDS ORDERED: RT-ALBUTEROL/IPRATROPIUM 3 ML (DUONEB) VIAL INH SCH ×2 (08:00→14:00)
[2019-06-04] MEDS: morphine ER 15 MG (MS CONTIN) TAB PO SCH (08:06)
[2019-06-04] MEDS: PREGABALIN 75 MG (LYRICA) CAP PO SCH (08:06)
[2019-06-04] MEDS ORDERED: FOND7.5D9 SQ ×2 (08:21→08:29)
[2019-06-04] MEDS ORDERED: BUPRENORPHINE HCL 600 MCG MM SCH (08:30)
[2019-06-04] MEDS ORDERED: PATIENT MAY USE OWN MEDS, ALL MC SCH (08:45)
[2019-06-04] MEDS ORDERED: FONDAPARINUX SODIUM 7.5 MG/0.6 ML SQ SCH (08:52)
[2019-06-04] MEDS ORDERED: AZITHROMYCIN 250 MG TAB (ZITHROMAX) PO SCH (09:00)
[2019-06-04] MEDS ORDERED: TIMOLOL MALEATE 0.5% 5 ML (TIMOPTIC) BTL OU SCH (09:00)
[2019-06-04] MEDS ORDERED: lisINopril 20 MG (PRINIVIL) TABLET PO SCH (09:00)
[2019-06-04] MEDS ORDERED: CLOPIDOGREL 75 MG (PLAVIX) TABLET PO SCH (09:00)
--- NOTE | 2019-06-04 10:37 | Consultation-Cardiology ---
HPI-Cardiology Cardiology Consultation Date of Consultation 06/04/19 Date of Admission Time Seen by Provider: 10:32 Indication: Chest pain HPI Patient is a 53 y/o female with history of COPD, HTN, DM, Lupus with history of multiple DVT, PE in the past. Presented to the ER with complaints of chest pain that has been present for the past 2 weeks, however, became more intense yeste rday. Was given SL nitro in the ER without relief of her symptoms. Currently rates pain as 5/10. Associated increased dyspnea over the past few weeks. Denies any dizziness or lightheadedness or syncope. Has hx of lupus with recurrent DVT/PE, has failed Xarelto therapy and currently on Arixtra. 53-year-old lady with extensive history with DVT PE, COPD, lupus, chronic pa ncreatitis, dependent on pain medication, start to have chest pain sharp on the left side radiating to the left shoulder, on my evaluation she was very anxious and irritated that she is not getting her pain medication. Cardiac enzymes and EKG did not show any acute abnormality. I discussed with her the management plan recommended stress test that can be done as an outpatient, patient is demanding to go home to take her home pain medication. Home Medications & Allergies Allergies: Coded Allergies: droperidol (Unverified Allergy, Severe, SOB, 02/22/11) ranitidine HCl (Verified Allergy, Intermediate, SOB, DIAPHORETIC, 02/22/11) Soap (Unverified Allergy, Unknown, RASH, 07/03/13) aspirin (Verified Allergy, Unknown, 07/03/13) codeine (Verified Allergy, Unknown, 07/03/13) ketorolac tromethamine (Verified Allergy, Unknown, 07/03/13) metoclopramide HCl (Unverified Allergy, Unknown, 07/03/13) povidone-iodine (Unverified Allergy, Unknown, RASH, 07/03/13) prochlorperazine edisylate (Unverified Allergy, Unknown, 07/03/13) prochlorperazine maleate (Unverified Allergy, Unknown, 07/03/13) sumatriptan (Verified Allergy, Unknown, 07/03/13) sumatriptan succinate (Verified Allergy, Unknown, 07/03/13) Home Medication List Reviewed: Yes ANO-Mkcilt-Wltfub Hx Patient Social History Marital Status: Alcohol Use: Denies Use Recreational Drug Use: No Smoking Status: Current Everyday Smoker Type Used: Cigarettes 2nd Hand Smoke Exposure: No Recent Foreign Travel: No Recent Infectious Disease Expo: No Recent Hopitalizations: No Immunizations Up To Date Tetanus Booster (TDap): Less than 5yrs Date of Pneumonia Vaccine: Jan 16, 2014 Date of Influenza Vaccine: Jan 31, 2019 Past Medical History HTN, DM, Lupus, DVT/PE, COPD. Family Medical History Significant Family History: Heart Disease, Cancer, GI Disease Family History: 19 FATHER Asthma Myocardial infarction 19 MOTHER Kidney disease G8 SISTER Asthma Diabetes mellitus Hypercholesterolemia Hypertension Review of Systems-General Review of Systems Constitutional: see HPI; No dizziness, No fever; malaise, weakness EENTM: see HPI, no symptoms reported; No blurred vision, No double vision Respiratory: see HPI, cough, dyspnea on exertion; No hemoptysis, No orthopnea; short of breath Cardiovascular: chest pain; No edema, No Hx of Intervention; palpitations; No syncope, No vascular heart diseas Gastrointestinal: no symptoms reported, see HPI Genitourinary: no symptoms reported, see HPI; No dysuria, No frequency Musculoskeletal: see HPI; No back pain, No joint pain Skin: no symptoms reported; No lesions, No rash Psychiatric/Neurological: See HPI, Anxiety Reviewed Test Results Reviewed Test Results Lab Laboratory Tests 06/03/19 17:02: White Blood Count 7.3, Red Blood Count 4.51, Hemoglobin 13.6, Hematocrit 42, Mean Corpuscular Volume 94, Mean Corpuscular Hemoglobin 30, Mean Corpuscular Hemoglobin Concent 32, Red Cell Distribution Width 13.4, Platelet Count 183, Mean Platelet Volume 11.2H, Neutrophils (%) (Auto) 54, Lymphocytes (%) (Auto) 36, Monocytes (%) (Auto) 7, Eosinophils (%) (Auto) 3, Basophils (%) (Auto) 0, Neutrophils # (Auto) 3.9, Lymphocytes # (Auto) 2.6, Monocytes # (Auto) 0.5, Eosinophils # (Auto) 0.2, Basophils # (Auto) 0.0, Prothrombin Time 12.3, INR Comment 0.9, Activated Partial Thromboplast Time 32, Sodium Level 138, Potassium Level 4.0, Chloride Level 101, Carbon Dioxide Level 26, Anion Gap 11, Blood Urea Nitrogen 6L, Creatinine 0.90, Estimat Glomerular Filtration Rate > 60, BUN/Creatinine Ratio 7, Glucose Level 250H, Calcium Level 9.5, Corrected Calcium 9.5, Magnesium Level 1.8, Total Bilirubin 0.3, Aspartate Amino Transf (AST/SGOT) 19, Alanine Aminotransferase (ALT/SGPT) 17, Alkaline Phosphatase 151H, Myoglobin 21.5, Troponin I < 0.028, C-Reactive Protein High Sensitivity 1.72H, B-Type Natriuretic Peptide 19.5, Total Protein 7.2, Albumin 4.0, Lipase 31, Thyroid Stimulating Hormone (TSH) 1.08, Free Thyroxine 1.15 06/03/19 18:32: Urine Color YELLOW, Urine Clarity SL CLOUDY, Urine pH 8.0, Urine Specific [place] 1.010L, Urine Protein NEGATIVE, Urine Glucose (UA) 1+H, Urine Ketones NEGATIVE, Urine Nitrite NEGATIVE, Urine Bilirubin NEGATIVE, Urine Urobilinogen 0.2, Urine Leukocyte Esterase TRACEH, Urine RBC (Auto) NEGATIVE, Urine RBC RARE, Urine WBC 0-2, Urine Squamous Epithelial Cells 5-10, Urine Crystals NONE, Urine Bacteria FEWH, Urine Casts NONE, Urine Mucus NEGATIVE, Urine Culture Indicated NO, Urine Opiates Screen POSITIVEH, Urine Oxycodone Screen NEGATIVE, Urine Methadone Screen NEGATIVE, Urine Propoxyphene Screen NEGATIVE, Urine Barbiturates Screen NEGATIVE, Ur Tricyclic Antidepressants Screen NEGATIVE, Urine Phencyclidine Screen NEGATIVE, Urine Amphetamines Screen NEGATIVE, Urine Methamphetamines Screen NEGATIVE, Urine Benzodiazepines Screen NEGATIVE, Urine Cocaine Screen NEGATIVE, Urine Cannabinoids Screen POSITIVEH 06/03/19 21:53: Troponin I < 0.028 06/04/19 05:05: White Blood Count 5.4, Red Blood Count 3.83L, Hemoglobin 11.5, Hematocrit 36, Mean Corpuscular Volume 95, Mean Corpuscular Hemoglobin 30, Mean Corpuscular Hemoglobin Concent 32, Red Cell Distribution Width 13.2, Platelet Count 155, Mean Platelet Volume 11.1H, Neutrophils (%) (Auto) 51, Lymphocytes (%) (Auto) 38, Monocytes (%) (Auto) 7, Eosinophils (%) (Auto) 3, Basophils (%) (Auto) 0, Neutrophils # (Auto) 2.8, Lymphocytes # (Auto) 2.1, Monocytes # (Auto) 0.4, Eosinophils # (Auto) 0.2, Basophils # (Auto) 0.0, Sodium Level 138, Potassium Level 4.1, Chloride Level 104, Carbon Dioxide Level 27, Anion Gap 7, Blood Urea Nitrogen 8, Creatinine 0.72, Estimat Glomerular Filtration Rate > 60, BUN/Creatinine Ratio 11, Glucose Level 221H, Calcium Level 8.8, Corrected Calcium 9.4, Total Bilirubin 0.2, Aspartate Amino Transf (AST/SGOT) 16, Alanine Aminotransferase (ALT/SGPT) 15, Alkaline Phosphatase 117, Total Protein 6.0L, Albumin 3.3, Triglycerides Level 110, Cholesterol Level 166, LDL Cholesterol Direct 117, VLDL Cholesterol 22, HDL Cholesterol 43 Microbiology 06/03/19 Influenza Types A,B Antigen (WILLIAM) - Final, Complete ECG Impression ECG Initial ECG Rhythm: S.Tach Physical Exam Physical Exam Vital Signs Vital Signs - First Documented 06/03/19 06/03/19 06/04/19 16:51 20:57 02:15 Temp 37.7 Pulse 123 Resp 20 B/P (MAP) 186/113 (137) Pulse Ox 97 O2 Delivery Room Air O2 Flow Rate 8.00 Capillary Refill : Less Than 3 Seconds Height, Weight, BMI Height: 5'7.00" Weight: 155lbs. 0.0oz. 70.806647zv; 26.82 BMI Method:Stated General Appearance: No Apparent Distress, WD/WN, Anxious HEENT: PERRL/EOMI, Normal ENT Inspection Neck: Normal Inspection Respiratory: Lungs Clear, Normal Breath Sounds, No Accessory Muscle Use, No Respiratory Distress Cardiovascular: Regular Rate, Rhythm, No Edema, No JVD, No Murmur, Normal Peripheral Pulses, Tachycardia (Regular) Gastrointestinal: Normal Bowel Sounds, Non Tender, Soft Rectal: Deferred Back: No CVA Tenderness Extremity: Non Tender, No Calf Tenderness, No Pedal Edema, Other (Mild edema and chronic skin changes) Neurologic/Psychiatric: Alert, Oriented x3, No Motor/Sensory Deficits, 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 Pain was not relieved by SL nitro. EKG reveals no acute ST changes. Cardiac enzymes negative. Patient has multiple risk factors for underlying CAD, planning for 2D Echo, LST for further evaluation Dyspnea- patient has underlying COPD, used O2 PRN at home. CT chest revealed no PE, questionable pneumonitis. Sinus tachycardia- improved, continue to monitor. Abn EKG with RBBB and LAFB, plan as discussed above HTN- restart home medications and continue to monitor. DM- management per PCP Lupus Hx of multiple DVT/PE- no acute PE on CT Chest. Patient has failed Xarelto treatment, currently on Arixtra. Tobaccoism- educated on the importance of smoking cessation. Anxiety Thank you for allowing us to participate in the management of Ms. Hawkins. This is Ame Lockwood PA-C, as a scribe for Dr. Anglin. Patient was seen and evaluated with Ame, examination performed, management plan was discussed, agree with the current scribed note, I made few changes to the note using Italic font Patient was agitated and anxious about the severe pain, depending her pain medication. Discussed with her in length her management plan recommended stress test as an outpatient and follow-up in my office as an outpatient. Continue on home medication and arrange for follow-up in one to 2 weeks. Clinical Quality Measures AMI/AHF: ASA po Prior to arrival: No DVT/VTE Risk/Contraindication: Risk Factor Score Per Nursin RFS Level Per Nursing on Admit: 4+=Very High AME MARCELINO Jun 04, 2019 10:37 CATHERINE ANGLIN MD Jun 04, 2019 11:45
--- NOTE | 2019-06-04 11:47 | Short Stay Summary ---
HPI Attending Physician Hillary Craft MD PCP [place] Consult Date of Admission Jun 03, 2019 at 19:36 Home Medications Home Medications Reviewed patient Home Medication Reconciliation performed by pharmacy medication reconciliations field installation technician and/or nursing. Patients Allergies have been reviewed. Allergies Coded Allergies: droperidol (Unverified Allergy, Severe, SOB, 02/22/11) ranitidine HCl (Verified Allergy, Intermediate, SOB, DIAPHORETIC, 02/22/11) Soap (Unverified Allergy, Unknown, RASH, 07/03/13) aspirin (Verified Allergy, Unknown, 07/03/13) codeine (Verified Allergy, Unknown, 07/03/13) ketorolac tromethamine (Verified Allergy, Unknown, 07/03/13) metoclopramide HCl (Unverified Allergy, Unknown, 07/03/13) povidone-iodine (Unverified Allergy, Unknown, RASH, 07/03/13) prochlorperazine edisylate (Unverified Allergy, Unknown, 07/03/13) prochlorperazine maleate (Unverified Allergy, Unknown, 07/03/13) sumatriptan (Verified Allergy, Unknown, 07/03/13) sumatriptan succinate (Verified Allergy, Unknown, 07/03/13) XEZ-Xeqwnj-Exumdl Hx Patient Social History Marrital Status: Alcohol Use: Denies Use Recreational Drug Use: No Smoking Status: Current Everyday Smoker Type Used: Cigarettes 2nd Hand Smoke Exposure: No Recent Foreign Travel: No Contact w/other who traveled: No Recent Hopitalizations: No Recent Infectious Disease Expo: No Immunizations Up To Date Tetanus Booster (TDap): Less than 5yrs Date of Pneumonia Vaccine: Jan 16, 2014 Date of Influenza Vaccine: Jan 31, 2019 Past Medical History Past Medical History 1. Chronic Obstructive Pulmonary Disease- on O2 2. Obstructive Sleep Apnea -requiring CPAP 3. Reported history of Lupus without positive testing 4. History of DVT's with Pulmonary Emboli- on Xarelto 5. Chronic Pain- with chronic narcotic use 6. Diabetes Mellitus- non-compliance with medications (pt. not filling her insulin and advised the med tech she was no longer needing) 7. Hypertension 8. Hyperlipidemia 9. Depression/Anxiety 10. Hypothyroidism 11. Dysphagia -pt. had appt. with Dr. Diaz and did not show for her appt. 12. Hematuria- pt. had appt with Dr. Meneses and did not show for her appt. 13. Small 4mm non obstructing renal calculi on CT 14. Cholelithiasis with recent CBD stent placement at [place] 2014 15. Hospitalization for Suicidal ideation 07/30 [facility]- Diagnosed with substance related mood disorder 16. History of THC use 17. Tobaccoism Past Surgical History 1. IVC Filter placement 2. Multiple [place] catheters secondary to poor venous access 3. Cholecystectomy 4. Common Bile Duct Stent- 2014 6. Appendectomy 7. Multiple exploratory laparotomies secondary to bowel obstruction with resultant adhesions and chronic pain Family Medical History Significant Family History: Heart Disease, Cancer, GI Disease Family History: Asthma 19 FATHER G8 SISTER Diabetes mellitus G8 SISTER Hypercholesterolemia G8 SISTER Hypertension G8 SISTER Kidney disease 19 MOTHER Myocardial infarction 19 FATHER No Family History of: AIDS Abdominal aortic aneurysm Nhan's disease Alcoholism Alzheimer's disease Aphasia Arthritis Cancer of mouth Cardiovascular disease Cataracts Colon cancer Completed stroke Congenital disease Congenital heart disease Coronary thrombosis Cystic fibrosis Deafness or hearing loss Dementia Drug abuse Dysphasia Fibrocystic disease of breast Gastroenteritis Glaucoma Headache disorder Infertility Neoplasm Not obtainable due to adoption Osteoporosis Parkinson's disease Prostate cancer Psychosocial problem Respiratory disorder Seizure disorder Severe allergy Thyroid disease Tuberculosis Visual disorder Physical Exam-([facility]) Physical Exam Vital Signs VS - Last 72 Hours, by Label 06/03/19 06/03/19 06/03/19 06/03/19 16:51 16:53 20:57 21:05 Temp 37.7 Pulse 123 107 Resp 20 18 B/P (MAP) 186/113 (137) 188/117 Pulse Ox 97 O2 Delivery Room Air Room Air Room Air Room Air 06/03/19 06/03/19 06/03/19 06/03/19 21:25 21:39 21:55 22:03 Temp 36.9 36.8 36.6 36.9 Pulse 89 84 92 89 Resp 18 18 20 18 B/P (MAP) 150/95 (113) 147/88 (107) 141/87 (105) 150/95 Pulse Ox 97 97 94 97 O2 Delivery Room Air Room Air Room Air Room Air 06/03/19 06/03/19 06/03/19 06/03/19 22:10 22:15 22:45 22:57 Temp 36.6 36.6 36.6 Pulse 105 97 96 100 Resp 22 18 B/P (MAP) 157/100 (119) 167/95 (119) 147/80 (102) Pulse Ox 94 94 96 O2 Delivery Room Air Room Air Room Air 06/03/19 06/04/19 06/04/19 06/04/19 23:15 00:15 01:00 01:01 Temp 36.6 36.2 36.0 Pulse 93 93 92 85 Resp 18 20 B/P (MAP) 118/75 (89) 101/62 (75) 129/82 (98) Pulse Ox 94 98 99 O2 Delivery Room Air Room Air 06/04/19 06/04/19 06/04/19 06/04/19 02:15 03:01 03:15 07:00 Temp 37.7 Pulse 82 123 87 90 Resp 20 20 B/P (MAP) 133/88 (103) 154/90 (111) Pulse Ox 99 100 O2 Delivery NIV CPAP NIV CPAP O2 Flow Rate 8.00 8.00 06/04/19 06/04/19 06/04/19 06/04/19 08:00 08:00 10:01 10:01 Temp 35.9 35.9 Pulse 91 72 Resp 18 B/P (MAP) 164/60 (94) Pulse Ox 95 96 96 96 O2 Delivery Room Air Nasal Cannula Nasal Cannula O2 Flow Rate 2.00 2.00 Capillary Refill : Less Than 3 Seconds Clinical Quality Measures AMI/AHF: ASA po Prior to arrival: No DVT/VTE Risk/Contraindication: Risk Factor Score Per Nursin RFS Level Per Nursing on Admit: 4+=Very High MARIUM KINCAID MD Jun 04, 2019 11:47
--- NOTE | 2019-06-04 11:50 | Discharge Summary ---
Discharge [facility] Reconcile Patient Problems Problems Reviewed?: Yes Discharge Medications Continued Medications: Albuterol Sulfate (Ventolin Hfa) 18 Gm Hfa.aer.ad 2 PUFF IH Q4H PRN for WHEEZING Buprenorphine HCl (Belbuca) 600 Mcg Film 600 MCG MM Q12H Cyclobenzaprine HCl (Cyclobenzaprine HCl) 10 Mg Tablet 10 MG PO Q12H Doxycycline Hyclate (Doxycycline Hyclate) 100 Mg Tablet 100 MG PO BID, #20 TAB 0 Refills Fluticasone/Umeclidin/Vilanter (Trelegy Ellipta 100-62.5-25) 1 Each Blst.w.dev 1 PUFF IH BID Fondaparinux Sodium (Fondaparinux Sodium) 7.5 Mg/0.6 Ml Syringe 7.5 MG SQ DAILY, #30 SYRINGE Levothyroxine Sodium (Levothyroxine Sodium) 75 Mcg Tablet 75 MCG PO DAILY, TAB Morphine Sulfate (Morphine Sulfate IR Tablet) 15 Mg Tablet 15 MG PO Q12H PRN for PAIN-MILD TO MODERATE Omeprazole (Omeprazole) 20 Mg Capsule.dr 20 MG PO DAILY, CAP Ondansetron (Ondansetron Odt) 8 Mg Tab.rapdis 8 MG PO Q8H PRN for NAUSEA/VOMITING Discontinued Medications: Rivaroxaban (Xarelto) 20 Mg Tablet 20 MG PO DAILY, TAB Patient Instructions Goal/Follow Up Appt: F.u appt with Dr Anglin on Tue for Stress test F.u with PCP Manoj Tenorio on Jun 13 @940 AM Activity & Diet Discharge Diet: No Restrictions Activity as Tolerated: Yes Orders-Post D/C & Referrals Pneu Vac Indicated: Yes MARIUM KINCAID MD Jun 04, 2019 11:50
== END 2019-06-04 13:55 | disposition home or self-care (01) ==
LOC: EDUNIT# 16:40 → ER 16:41 → 4TH 19:36
PROVIDERS: ADMIT Internal Medicine; ATTEND Internal Medicine
DX: J18.9 Pneumonia, unspecified organism (principal); I10 Essential (primary) hypertension; R00.0 Tachycardia, unspecified; I82.509 Chronic embolism and thrombosis of unspecified deep veins of unspecified lower extremity; E78.00 Pure hypercholesterolemia, unspecified; E11.40 Type 2 diabetes mellitus with diabetic neuropathy, unspecified; E78.5 Hyperlipidemia, unspecified; K21.0 Gastro-esophageal reflux disease with esophagitis; M19.90 Unspecified osteoarthritis, unspecified site; G89.29 Other chronic pain; J44.9 Chronic obstructive pulmonary disease, unspecified; M54.9 Dorsalgia, unspecified; E03.9 Hypothyroidism, unspecified; F41.9 Anxiety disorder, unspecified; F17.210 Nicotine dependence, cigarettes, uncomplicated; Z88.6 Allergy status to analgesic agent; Z88.5 Allergy status to narcotic agent; Z90.710 Acquired absence of both cervix and uterus; Z88.8 Allergy status to other drugs, medicaments and biological substances; Z91.09 Other allergy status, other than to drugs and biological substances; Z79.82 Long term (current) use of aspirin; Z79.891 Long term (current) use of opiate analgesic; Z79.899 Other long term (current) drug therapy; Z90.89 Acquired absence of other organs; Z90.49 Acquired absence of other specified parts of digestive tract
CPT/HCPCS: 36415; 71045; 71275; 80053; 80061; 80306; 81000; 83690; 83735; 83874; 83880; 84439; 84443; 84484; 85025; 85610; 85730; 86141; 87804; 93005; 93041; 94640; 94760; G0378

== ENCOUNTER 2019-06-21 14:10 | Outpatient (RCR) | payer MEDICARE, MEDICAID ==
[~2019-06-21 14:10] MED LIST changes: +FOND7.5D9 SQ; -OMEP-280 PO; +OMEP20CA18 PO
[2019-06-21 14:38] LABS: BASOPHILS % (AUTO) 1 % (0-10); EOSINOPHILS # (AUTO) 0.3 10^3/uL (0.0-0.3); EOSINOPHILS % (AUTO) 4 % (0-10); HEMATOCRIT 42 % (35-52); HEMOGLOBIN 13.6 G/DL (11.5-16.0); LYMPHOCYTES # (AUTO) 2.6 X 10^3 (1.0-4.0); LYMPHOCYTES % (AUTO) 40 % (12-44); MEAN CORPUSCULAR HEMOGLOBIN 30 PG (25-34); MEAN CORPUSCULAR HGB CONC 32 G/DL (32-36); MEAN CORPUSCULAR VOLUME 94 FL (80-99); MEAN PLATELET VOLUME 11.1 FL (7.4-10.4); MONOCYTES # (AUTO) 0.4 X 10^3 (0.0-1.0); MONOCYTES % (AUTO) 7 % (0-12); NEUTROPHILS # (AUTO) 3.2 X 10^3 (1.8-7.8); NEUTROPHILS % (AUTO) 49 % (42-75); PLATELET COUNT 184 10^3/uL (130-400); RED CELL DISTRIBUTION WIDTH 13.9 % (10.0-14.5); WHITE BLOOD COUNT 6.5 10^3/uL (4.3-11.0)
[2019-06-21 14:53] LABS: ALANINE AMINOTRANSFERASE 14 U/L (0-55); ALBUMIN 3.9 GM/DL (3.2-4.5); ALKALINE PHOSPHATASE 127 U/L (40-136); BILIRUBIN,TOTAL 0.6 MG/DL (0.1-1.0); BUN/CREATININE RATIO 9; CALCIUM 9.3 MG/DL (8.5-10.1); CARBON DIOXIDE 28 MMOL/L (21-32); CHLORIDE 101 MMOL/L (98-107); CREATININE SERUM 0.88 MG/DL (0.60-1.30); GFR ESTIMATED > 60; GLUCOSE 222 MG/DL (70-105); POTASSIUM 4.4 MMOL/L (3.6-5.0); SODIUM 138 MMOL/L (135-145); TOTAL PROTEIN 7.2 GM/DL (6.4-8.2)
== END 2019-06-26 | disposition home or self-care (01) ==
LOC: ONC 14:10
PROVIDERS: ATTEND Internal Medicine Hematology & Oncology
DX: Z45.2 Encounter for adjustment and management of vascular access device (principal); D68.62 Lupus anticoagulant syndrome; D50.0 Iron deficiency anemia secondary to blood loss (chronic); E11.9 Type 2 diabetes mellitus without complications; E03.9 Hypothyroidism, unspecified; I10 Essential (primary) hypertension; J44.9 Chronic obstructive pulmonary disease, unspecified; F32.9 Major depressive disorder, single episode, unspecified; F17.200 Nicotine dependence, unspecified, uncomplicated; G47.33 Obstructive sleep apnea (adult) (pediatric); Z86.718 Personal history of other venous thrombosis and embolism; Z86.711 Personal history of pulmonary embolism; Z86.2 Personal history of diseases of the blood and blood-forming organs and certain disorders involving the immune mechanism; Z79.01 Long term (current) use of anticoagulants
CPT/HCPCS: 36591; 80053; 82728; 85025; 96523

== ENCOUNTER → 2019-06-27 | Outpatient (CLI) | payer MEDICARE, MEDICAID ==
[~2019-06-27] VITALS: Ht 170 cm; Wt 77.0 kg
[~2019-06-27] MED LIST changes: +CATHETER FLUSH 10 ML SYR IV PRN; +HEParin (CENTRAL IV FLUSH) 500 UNIT/5 ML SYR IV ONE; +HEParin (CENTRAL IV FLUSH) 500 UNIT/5 ML SYR ONE; +REGADENOSON 0.4 MG/5 ML SYR (LEXISCAN) IV ONE
[2019-06-27 13:44] VITALS: BP 117/86
--- NOTE | 2019-06-27 17:03 | STRESS TEST ---
DATE OF SERVICE: 06/27/2019 LEXISCAN MYOVIEW STRESS TEST REPORT REFERRING PHYSICIAN: [facility]. Baseline heart rate is 99. Baseline blood pressure 141/96. Baseline EKG is sinus rhythm with no ischemic changes. In summary, the patient was injected with 10.43 mCi of technetium-99 Myoview and the resting images were obtained. Then, the patient received 0.4 mg of Lexiscan followed by 27.8 mCi of technetium-99 Myoview. Throughout the test, there were no EKG changes. The resting and stress images were reviewed and compared in the short axis, horizontal long axis, and vertical long axis views. Review of the images showed good radiotracer uptake with no ischemia or infarction. SSS is 3, SDS 1. TID value 0.97. On the gated images, the left ventricle appeared to be normal size with normal contractility. Calculated ejection fraction 66%. CONCLUSION: 1. The patient tolerated Lexiscan well. 2. No ischemia or infarction on SPECT images. 3. Normal left ventricular size with normal contractility. Calculated ejection fraction 66%. Job ID: [id number] DocumentID: [id number] Dictated Date: 06/27/2019 15:42:01 Charity Fundraiser Date: 06/27/2019 17:02:45 Dictated By: CATHERINE HALL MD
== END ==
LOC: CARD 06-06 11:30
PROVIDERS: ATTEND Physician Assistant
DX: R07.9 Chest pain, unspecified (principal); R06.02 Shortness of breath
CPT/HCPCS: 78452; 93017

== ENCOUNTER → 2019-06-29 | Outpatient (CLI) | payer MEDICARE, MEDICAID ==
[~2019-06-29] MED LIST changes: -CATHETER FLUSH 10 ML SYR IV PRN; -HEParin (CENTRAL IV FLUSH) 500 UNIT/5 ML SYR IV ONE; -HEParin (CENTRAL IV FLUSH) 500 UNIT/5 ML SYR ONE; -REGADENOSON 0.4 MG/5 ML SYR (LEXISCAN) IV ONE
--- NOTE | 2019-06-29 09:44 | Diagnostic Imaging Report ---
PROCEDURE: US right lower extremity venous. TECHNIQUE: Multiple real-time grayscale images were obtained over the right lower extremity in various projections. Additional spectral analysis and color Doppler duplex images were also obtained. INDICATION: Leg swelling. Patient has history of DVT. FINDINGS: Right common femoral vein is patent. There appears to be occlusive DVT within the upper, mid and lower superficial femoral vein. Popliteal vein is patent. Calf veins are patent. No fluid collections are seen. IMPRESSION: Occlusive right lower extremity DVT, as described. Dictated by: Dictated on workstation # [id number]
== END ==
LOC: RAD 08:52
PROVIDERS: ATTEND Nurse Practitioner Adult Health
DX: I82.401 Acute embolism and thrombosis of unspecified deep veins of right lower extremity (principal); D68.59 Other primary thrombophilia; Z86.718 Personal history of other venous thrombosis and embolism

== ENCOUNTER → 2019-08-07 | Outpatient (CLI) | payer MEDICARE, MEDICAID ==
[~2019-08-07] MED LIST changes: -OXYC-529; +OXYC5TAB96
[2019-08-07 11:38] LABS: BASOPHILS % (AUTO) 1 % (0-10); EOSINOPHILS # (AUTO) 0.2 10^3/uL (0.0-0.3); EOSINOPHILS % (AUTO) 3 % (0-10); HEMATOCRIT 42 % (35-52); HEMOGLOBIN 14.1 G/DL (11.5-16.0); LYMPHOCYTES % (AUTO) 39 % (12-44); MEAN CORPUSCULAR HGB CONC 33 G/DL (32-36); MEAN CORPUSCULAR VOLUME 98 FL (80-99); MONOCYTES # (AUTO) 0.4 X 10^3 (0.0-1.0); MONOCYTES % (AUTO) 7 % (0-12); NEUTROPHILS # (AUTO) 2.6 X 10^3 (1.8-7.8); NEUTROPHILS % (AUTO) 50 % (42-75); PLATELET COUNT 135 10^3/uL (130-400); RED CELL DISTRIBUTION WIDTH 16.3 % (10.0-14.5); WHITE BLOOD COUNT 5.1 10^3/uL (4.3-11.0)
[2019-08-07 11:42] LABS: MEAN CORPUSCULAR HEMOGLOBIN 32 PG (25-34)
[2019-08-07 12:00] LABS: ALANINE AMINOTRANSFERASE 16 U/L (0-55); ALBUMIN 3.7 GM/DL (3.2-4.5); ALKALINE PHOSPHATASE 111 U/L (40-136); BILIRUBIN,TOTAL 0.5 MG/DL (0.1-1.0); BUN/CREATININE RATIO 11; CALCIUM 8.8 MG/DL (8.5-10.1); CARBON DIOXIDE 26 MMOL/L (21-32); CHLORIDE 101 MMOL/L (98-107); CREATININE SERUM 0.84 MG/DL (0.60-1.30); GFR ESTIMATED > 60; GLUCOSE 263 MG/DL (70-105); POTASSIUM 4.3 MMOL/L (3.6-5.0); SODIUM 137 MMOL/L (135-145); TOTAL PROTEIN 6.8 GM/DL (6.4-8.2)
== END ==
LOC: LAB 11:00
PROVIDERS: ATTEND Nurse Practitioner Community Health
DX: E11.9 Type 2 diabetes mellitus without complications (principal); I10 Essential (primary) hypertension; D50.8 Other iron deficiency anemias
CPT/HCPCS: 36415; 80053; 84443; 85025

== ENCOUNTER 2019-09-01 13:51 | Emergency (ER) | payer MEDICARE, MEDICAID ==
[~2019-09-01] VITALS: Ht 170 cm; Wt 77.0 kg
--- OUTSIDE RECORDS SUMMARY | 2019-09-01 13:58 | XMS REPORT | Encounter Summary ---
Author Author [facility], [place], [place], [place] Organization [facility], [place], [place] Address Unknown Phone Unavailable Care Team Providers Care Screen Print Operator Name Role Phone Jose CoronaKristie DO PCP Reason for Visit * Reason Comments Dimed Vision Encounter Details Care Team Description Date Type Department Neil Farooq MD [address] [facility] [address] [place] [address] Dimed Vision 04/20/2018 Telephone [facility] Cardia c Thoracic and Vasc Surg [place] [address] [facility] [address] [place] [address] Social History Date Tobacco Use Types Packs/Day Years Used Current Every Day Smoker Cigarettes 1 25 Smokeless Tobacco: Never Used Drinks/Week oz/Week Comments Alcohol Use No Sex Assigned at Date Recorded Not on file Industry Job Start Date Occupation Not on file Not on file Not on file Travel End Travel History Travel Start No recent travel history available. documented as of this encounter Miscellaneous Notes * Telephone Encounter - Neil Farooq MD - 04/24/2018 9:48 AM RIGGING LOFT MECHANIC Given that, I am no sure there is much else to offer other than placement of an abdominal or thoracic catheter which would be heroic. Might be best to get her to an cohoes. ING LOFT MECHANIC * Telephone Encounter - Neil Farooq MD - 04/20/2018 11:40 AM RIGGING LOFT MECHANIC Looks like one could try a right leg catheter ----- Message from Judie Han RN sent at 04/20/2018 10:11 AM RIGGING LOFT MECHANIC ----- This is a referral from Dr. Argueta about port placement. This port was placed Sep by Dr. Argueta thru a venous stent in the left groin. Pt has had multiple p orts in the past and Dr. Argueta' note even mentions multiple scars on chest and s ubclavian occlusion. It sounds like the pt has long standing Lupus and a history of small bowel obstructions with multiple surgeries now requiring retirement TPN, which is what the port is being used for. Recently the port is unable to draw blood or flush. Dr. Argueta is out of options and didn't know if you would be able to offer anything else. His note states if you are unable to offer anything then he will place a referral to [facility] or [facility]. Dr. Argueta ordered an LE Venous Duplex Bilat, hasn't been done yet. Please advise. NANI Dimas ING LOFT MECHANIC documented in this encounter Plan of Treatment Not on filedocumented as of this encounter Visit Diagnoses Not on filedocumented in this encounter Additional Health Concerns Assessment Noted Time A Depression follow-up plan has been documented for t paola patient 06/07/2017 12:05 PM RIGGING LOFT MECHANIC documented as of this encounter
--- OUTSIDE RECORDS SUMMARY | 2019-09-01 13:58 | XMS REPORT | Clinical Summary ---
Author Author [facility], [place], [place], [place], [facility] Organization [facility], [place], [place], [place], [place] Address Unknown Phone Unavailable Care Team Providers Care Buncher Machine Name Role Phone Jose CoronaKristie DO PCP Allergies Comments Active Allergy Reactions Severity Noted Date Adhesive Tape-Silicones Rash 08/30/2014 Aspirin Unknown 07/24/2010 Povidone-Iodine Rash Low 10/03/2017 Codeine Unknown 07/24/2010 Prochlorperazine Unknown 07/24/2010 Edisylate Sumatriptan Succinate Unknown 07/24/2010 Droperidol Unknown 07/24/2010 Metoclopramide Anaphylaxis 08/27/2010 Minal-30 Unknown 07/24/2010 Ketorolac Unknown 09/27/2010 Medications End Date Status Medication Sig Dispensed Refills Start Date Active ALBUTEROL INHALATION 0 Active docusate sodium (COLACE) Take 1 Cap by 0 100 mg Oral capsule mouth 2 times daily. Active diphenhydrAMINE Take 25 mg by 0 (BENADRYL) 25 mg Oral mouth every 6 tablet hours as needed. Allergies Active morphine (MS IR) 15 mg Take 15 mg by 0 Oral tablet mouth every 4 hours as needed. breakthru pain Active omeprazole (PRILOSEC) 20 Take 20 mg by 0 mg Oral CpDR mouth daily. Active DULoxetine (CYMBALTA) 60 Take 60 mg by 0 mg Capsule, Delayed mouth 2 times Release(E.C.) daily . Active timolol (TIMOPTIC) 0.5 % Administer 1 0 solution Drop in left eye 2 times daily. Active levothyroxine 75 mcg Take 75 mcg 0 tablet by mouth daily bag washer. Active buprenorphine HCl Place 75 mcg 0 (BELBUCA) 75 mcg Film inside cheek 2 times daily. Active lisinopril (PRINIVIL) 20 Take 1 Tablet 90 Tablet 1 mg tablet (20 mg) by 8 mouth daily. Active hydrOXYzine pamoate Take 1 30 Capsule 0 (VISTARIL) 50 mg capsule Capsule (50 8 mg) by mouth 3 times daily as needed for Anxiety. Active rivaroxaban (XARELTO) 20 Take 20 mg by 0 mg Tablet mouth daily. Active gabapentin enacarbil Take 1,200 mg 0 (HORIZANT ORAL) by mouth daily . Active Blood-Glucose Meter To test blood 1 Kit 0 (ONETOUCH VERIO FLEX glucose at 8 START) Kit home. ICD 10: R73.9. Active blood sugar diagnostic To test fsbg 100 Each 0 (ONETOUCH VERIO) Strip three times 8 daily. ICD 10: R73.9.. Active lancets (One Touch To test fsbg 100 Each 0 Delica) 33 gauge three times 8 daily. ICD 10 R73.9. Active ipratropium-albuterol Take 3 mL by 90 mL 0 (DUONEB) 0.5 mg-3 mg(2.5 inhalation 8 mg base)/3 mL Solution every 6 hours for Nebulization as needed for Shortness of Breath. Active fluticasone-vilanterol Take 1 Puff 1 Inhaler 0 (BREO ELLIPTA) 200-25 by inhalation 8 mcg/dose Disk with Device daily. Active insulin glargine (LANTUS) Inject 10 3 mL 0 100 unit/mL injection Units by 8 subcutaneous injection daily with breakfast. Active atorvastatin (LIPITOR) 80 Take 0.5 30 Tablet 0 mg tablet Tablets (40 8 mg) by mouth daily at bedtime. Active ondansetron (ZOFRAN ODT) Take 1 Tablet 30 Tablet 0 8 mg Tablet, Rapid (8 mg) by 8 Dissolve mouth every 6 hours as needed for Nausea/Emesis . Active Problems Problem Noted Date Slow transit constipation 10/02/2017 Personal history of DVT (deep vein thrombosis) 10/02 Chronic venous embolism and thrombosis of deep vessel s of distal end of 10/02/2017 right lower extremity Encounter for care related to vascular access port 0 09/30/2017 Chest pain 09/29/2017 Steroid-induced hyperglycemia 09/20/2017 Lupus anticoagulant with hypercoagulable state 09/19 Tobacco use 09/18/2017 Chronic pain syndrome 09/18/2017 Overview: With narcotic dependence Narcotic dependence 09/18/2017 H/O small bowel obstruction 09/18/2017 Overview: Multiple times, requiring multiple surg eries with long-term TPN Other sleep apnea 09/18/2017 Overview: Wears 8 liters via ventimask with sleep . Acquired hypothyroidism 09/18/2017 CO2 narcosis 09/03/2011 Acute exacerbation of chronic obstructive pulmonary d isease (COPD) 07/24/2010 Resolved Problems Problem Noted Date Resolved Date Acute bronchitis 07/24/2010 09/18/2017 Immunizations Name Administration Dates Next Due Influenza Vaccine 01/18/2017, 07/24/2009 Pneumococcal Vaccine 02/10/2009, 07/25/2007 Family History Medical History Relation Name Comments Healthy Brother Heart Disease Father Cancer Mother Healthy Sister Relation Name Status Comments Brother Alive Father Mother Sister Alive Social History Date Tobacco Use Types Packs/Day Years Used Current Every Day Smoker Cigarettes 1 25 Smokeless Tobacco: Never Used Drinks/Week oz/Week Comments Alcohol Use No Sex Assigned at Date Recorded Not on file Industry Job Start Date Occupation Not on file Not on file Not on file Travel End Travel History Travel Start No recent travel history available. Last Filed Vital Signs Reading Time Taken Comments Vital Sign 144/84 04/13/2018 10:05 AM PROJECT MANAGEMENT ANALYST Blood Pressure 77 04/13/2018 10:05 AM PROJECT MANAGEMENT ANALYST Pulse 36.9 C (98.4 F) 04/13/2018 10:05 AM PROJECT MANAGEMENT ANALYST Temperature 18 10/04/2017 12:45 PM CDT Respiratory Rate 95% 10/05/2017 4:30 PM CDT Oxygen Saturation - - Inhaled Oxygen Concentration 75.6 kg (166 lb 11.2 oz) 04/13/2018 10:05 AM PROJECT MANAGEMENT ANALYST Weight 170.2 cm (5' 7") 04/13/2018 10:05 AM PROJECT MANAGEMENT ANALYST Height 26.11 04/13/2018 10:05 AM PROJECT MANAGEMENT ANALYST Body Mass Index Plan of Treatment Health Maintenance Due Date Last Done Comments PNEUMOCOCCAL VACCINE 0-64 1970 02/10/2009, 07/25/2007 YEARS (1 of 1 - PPSV23) CERVICAL CANCER SCREENING 1994 BREAST CANCER SCREENING 2004 COLORECTAL SCREENING 2014 ZOSTER VACCINE (1 of 2) 2014 INFLUENZA VACCINE 11/16/2018 01/18/2017, 010 Implants Device Identifier Shelf Expiration Date Model / Serial / L ot Implanted Type Area Manufactur er 06/16/2012 [id number] / / [id number] Powerport Port Right: Arterial BARD DAVOL Implanted: Qty: 1 on 10/08/2010 at [facility] 03/17/2019 [id number] / / [id number] Port Pwrprt 9.6fr Attachabl [id number] Port Left: Groi n CR BARD- - [id number] YING VASC Implanted: Qty: 1 on 10/03/2017 by INC Emigdio Argueta MD at [facility] Filter Description:Right groin Results Not on filefrom Last 3 Months Insurance Type Payer Benefit Subscriber ID Effective Phone Address Plan / Dates Group Medicare MEDICARE MEDICARE [id number] 2007-P PART A AND resent B Medicaid MEDICAID MEDICAID [id number] 2011- [place] Present Medicaid MED[place] MEDICAID [id number] 2017- [place] Present Advance Directives For more information, please contact: [phone] Patient Junior Programmer Explanation Type Date Recorded Advance Directive 12/26/2016 10:02 PM POA Advance Directive 12/26/2016 10:01 PM Living Will Date Inactivated Comments Code Status Date Activated 10/04/2017 3:46 PM Full Code 10/03/2017 2:43 PM 10/03/2017 2:43 PM Full Code 09/29/2017 3:33 PM 09/20/2017 6:49 PM Full Code 09/18/2017 1:58 PM 08/30/2014 5:30 PM Full Code 08/30/2014 12:18 PM 10/08/2010 7:10 PM Full Code 10/08/2010 10:00 AM
--- OUTSIDE RECORDS SUMMARY | 2019-09-01 13:58 | XMS REPORT | Encounter Summary ---
Author Author [facility] Jah Garcia, [place], [place], [facility] Organization [facility], Jah Garcia [place], [place], [place] Address Unknown Phone Unavailable Care Team Providers Care Machine Ceramic Coater Name Role Phone ChloeJose king Ciaran DO PCP Reason for Referral * Eval and Treat (Routine) Referred By Contact Referred To Contact Status Reason Specialty Diagnoses / Procedures Emigdio Argueta MD [address] [facility] [address] [place] [address] [facility] [address] [facility] [place] [address] Closed Cardiothoracic Diagnoses Surgery Venous obstruction Encounter Details Care Team Description Date Type Department Emigdio Argueta MD [address] [facility] [address] [place] [address] Venous obstruction (Primary Dx) 04/24/2018 Orders Only [facility] Genera l and Specialty Surgery [place] [address] [facility] [address] [place] [address] Social History Date Tobacco Use Types [...] history available. documented as of this encounter Plan of Treatment Order Schedule Name Type Priority Associated Diag noses Ordered: 04/24/2018 AMB REFERRAL TO Outpatient Routine Venous obstruc tion CARDIOTHORACIC SURGEON Referral documented as of this encounter Visit Diagnoses Diagnosis Venous obstruction - Primary Compression of vein documented in this encounter Additional Health Concerns Assessment Noted Time A Depression follow-up plan has been documented for t paola patient 06/07/2017 12:05 PM PARK MAINTENANCE TECHNICIAN documented as of this encounter
--- OUTSIDE RECORDS SUMMARY | 2019-09-01 13:58 | XMS REPORT | Encounter Summary ---
Author Author [facility] Jah Garcia, [place], [place], [facility] Organization [facility], Jah Garcia [place], [place], [place] Address Unknown Phone Unavailable Care Team Providers Care Telephoto Engineer Name Role Phone Jose CoronaKristie DO PCP Encounter Details Care Team Description Date Type Department Emigdio Argueta MD 100 [facility] [address] [place] [address] Venous obstruction (Primary Dx) 05/15/2018 Orders Only [facility] and Specialty Surgery [place] 100 [facility] [address] [place] [phone] Social History Date Tobacco Use Types Packs/Day [...] history available. documented as of this encounter Progress Notes * Zoë Paz CMA - 05/15/2018 11:00 AM COMPUTER REPAIR ENGINEER Per Dr. Argueta, referral to UTER REPAIR ENGINEER documented in this encounter Plan of Treatment Order Schedule Name Type Priority Associated Diag noses Ordered: 05/15/2018 MD RPLCMT COMPL [facility] Cardiac Routine Venou s obstruction VAD W/SUBQ PORT Services documented as of this encounter Visit Diagnoses Diagnosis Venous obstruction - Primary Compression of vein documented in this encounter Additional Health Concerns Assessment Noted Time A Depression follow-up plan has been documented for t paola patient 06/07/2017 12:05 PM COMPUTER REPAIR ENGINEER documented as of this encounter
--- OUTSIDE RECORDS SUMMARY | 2019-09-01 13:59 | XMS REPORT | Encounter Summary ---
Author Author [facility], Jah Garcia, [place], [place], [place] Organization [facility], Jah Garcia, [place], [place], [place] Address Unknown Phone Unavailable Care Team Providers Care Talent Management Specialist Name Role Phone Jose CoronaKristie DO PCP Reason for Visit * Reason Comments Needs Appointment Encounter Details Care Team Description Date Type Department Emigdio Argueta MD 100 [facility] [address] [place] [address] Needs Appointment 04/12/2018 Telephone [facility] and Specialty Surgery [place] 100 [facility] [address] [place] [address] Social History Date Tobacco Use [...] encounter Miscellaneous Notes * Telephone Encounter - Zoë Paz CMA - 04/12/2018 1:49 PM SEARCH CONSULTANT Chuckie Gandhi MD sent to Zoë Paz CMA Caller: Unspecified (2 weeks ago) If it's not infected - leave alone and follow-up with tina BRENNAN. Previous Messages ----- Message ----- From: Zoë Paz CMA Sent: 03/29/2018 2:16 PM To: Chuckie Gandhi MD Got a call from [facility] via [employer]. This is a DR. Argueta patient( not here this week and he said you are covering for him) Dr. Argueta placed a port 09/29/17 PROCEDURE: #1 removal of left groin nonfunctioning port #2 placement of a left from oral PowerPo rt They tried to flush her her port and it is not taking the flush easily and patie nt reports that she feels pressure in her groin after they try to flush. Do yo u want her to wait and see Dr. Argueta after he gets back or does something need t o be done sooner. No pain Multiple attempts to contact this patient was made with no response. 04/12/18 I called this patient again regarding her port problem. She did answer the phone and I attempted to make an appointment. 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 . Patient called back and appt was made for 04/13/[address] Argueta for check of p ort CH CONSULTANT documented in this encounter Plan of Treatment Not on filedocumented as of this encounter Visit Diagnoses Not on filedocumented in this encounter Additional Health Concerns Assessment Noted Time A Depression follow-up plan has been documented for t paola patient 06/07/2017 12:05 PM SEARCH CONSULTANT documented as of this encounter
--- OUTSIDE RECORDS SUMMARY | 2019-09-01 13:59 | XMS REPORT | Encounter Summary ---
Author Author [facility], Jah Garcia, [place], [place], [facility] Organization [facility], Jah Garcia, [place], [place], [facility] Address Unknown Phone Unavailable Care Team Providers Care Environmental Designer Name Role Phone Chloe, Jose K. DO PCP Reason for Referral * Eval and Treat (Routine) Referred By Contact Referred To Contact Status Reason Specialty Diagnoses / Procedures Emigdio Argueta MD [address] [place] [address] [address] [place] [address] [facility] Cardiac Thoracic And Vasc Surg [address] [place] [address] Closed Thoracic Surgery Diagnoses / Cardiovascular Chronic venous Surgery embolism and thrombosis of deep vessels of distal end of right lower extremity Reason for Visit * Reason Comments Follow Up check of port, 10/03/17 rem oval of left groin nonfunctioning port placement of a left from oral PowerPort Encounter Details Care Team Description Date Type Department Emigdio Argueta MD [address] [place] [address] [address] [place] [address] Chronic venous embolism and thrombosis o f deep vessels of distal end of right lower extremity (Primary Dx) 04/13/2018 Office Visit [facility] and Specialty Surgery [address] [place] [address] Social History Date Tobacco Use Types Packs/Day [...] history available. documented as of this encounter Last Filed Vital Signs Reading Time Taken Comments Vital Sign 144/84 04/13/2018 10:05 AM AUTOMATION ENGINEERING TECHNICIAN Blood Pressure 77 04/13/2018 10:05 AM AUTOMATION ENGINEERING TECHNICIAN Pulse 36.9 C (98.4 F) 04/13/2018 10:05 AM AUTOMATION ENGINEERING TECHNICIAN Temperature - - Respiratory Rate - - Oxygen Saturation - - Inhaled Oxygen Concentration 75.6 kg (166 lb 11.2 oz) 04/13/2018 10:05 AM AUTOMATION ENGINEERING TECHNICIAN Weight 170.2 cm (5' 7") 04/13/2018 10:05 AM AUTOMATION ENGINEERING TECHNICIAN Height 26.11 04/13/2018 10:05 AM AUTOMATION ENGINEERING TECHNICIAN Body Mass Index documented in this encounter Progress Notes * Emigdio Argueta MD - 04/13/2018 10:08 AM AUTOMATION ENGINEERING TECHNICIAN GENERAL and SPECIALTY SURGERY Office Visit Patient Name: Sophia Hawkins Age/Sex: 52 y.o. female : 1965 Visit Date: 04/13/18 CSN: [id number] HISTORY OF PRESENT ILLNESS Sophia Hawkins, a 52 y.o. female presents with a Chief Complaint of Follow Up ( check of port, 10/03/17 removal of left groin nonfunctioning port placement of a left from oral PowerPort) Patient reports that 3 weeks they had trouble with port due to and cardiac event , in [place]. Had trouble getting blood and flushing. Has not been accessed since. . Patient port is not working, was placed about 6 months ago. Was placed in the l eft groin through the venous stent. Subjective Subjective: Allergies Allergen Reactions Adhesive Tape-Silicones Rash Aspirin Unknown Codeine Unknown Compazine [Prochlorperazine Edisylate] Unknown Imitrex [Sumatriptan Succinate] Unknown Inapsine [Droperidol] Unknown Reglan [Metoclopramide] Anaphylaxis Minal-30 Unknown Toradol [Ketorolac] Unknown Betadine [Povidone-Iodine] Rash REVIEW OF SYSTEMS Review of Systems Constitutional: Negative for chills and fever. Eyes: Negative. Respiratory: Negative. Cardiovascular: Negative. Gastrointestinal: Positive for abdominal pain, constipation and nausea. Negative for anal bleeding, blood in stool, diarrhea, rectal pain and vomiting. Endocrine: Negative. Genitourinary: Negative. Chronic urination problems. Musculoskeletal: Negative. Skin: Negative. Allergic/Immunologic: Negative. Neurological: Positive for headaches (cfhronic). Negative for dizziness and ligh t-headedness. Hematological: Negative. Psychiatric/Behavioral: Negative. All other systems reviewed and are negative. Past Medical History: Diagnosis Date Anxiety Asthma BiPAP (biphasic positive airway pressure) dependence Bowel obstruction 5 bowel obstructions Bowel obstruction Chest pain clots Chronic pain COPD (chronic obstructive pulmonary disease) CRI (chronic renal insufficiency) Depression HTN (hypertension) Hyperlipidemia Hypothyroidism Lupus Lupus Obstructive sleep apnea (adult) (pediatric) Pancreatitis Pulmonary embolism june 2010 Thromboembolism Past Surgical History: Procedure Laterality Date CHG ANES FREEING BOWEL ADHESION,ENTEROLYSIS states had "21 surgeries for bowel obstructions" HX APPENDECTOMY HX CHOLECYSTECTOMY HX GALLBLADDER SURGERY HX HYSTERECTOMY HX KNEE ARTHROSCOPY Left HX KNEE SURGERY HX TUMOR REMOVAL abdominal [place] ERCP W/SPHINCTEROTOMY/PAPILLOTOMY N/A 08/30/2014 CHOLANGIOPANCREATOGRAPHY RETROGRADE ENDOSCOPIC performed by Edilberto Urbina MD at [facility] [place] ERCP,RMV F.B./CHANGE STENT N/A 08/30/2014 STENT REMOVAL performed by Edilberto Urbina MD at [facility] [place] INSJ TUNNELED CTR VAD W/SUBQ PORT AGE 5 YR/> 10/08/2010 CATHETER VENOUS ACCESS PLACEMENT performed by APOLLO PINEDA at [facility] [place] INSJ TUNNELED CTR VAD W/SUBQ PORT AGE 5 YR/> Left 10/03/2017 CATHETER VENOUS ACCESS PLACEMENT performed by Emigdio Argueta MD at [facility] [place] RMVL MICKEY CTR VAD W/SUBQ PORT/TUBE REBUILDER CTR/PRPH INSJ Left 10/03/2017 CATHETER VENOUS ACCESS REMOVAL performed by Emigdio Argueta MD at [facility] [place] Current Outpatient Prescriptions Medication Sig Dispense Refill ondansetron (ZOFRAN ODT) 8 mg Tablet, Rapid Dissolve Take 1 Tablet (8 mg) by mouth every 6 hours as needed for Nausea/Emesis. 30 Tablet 0 insulin glargine (LANTUS) 100 unit/mL injection Inject 10 Units by subcutane ous injection daily with breakfast. 3 mL 0 atorvastatin (LIPITOR) 80 mg tablet Take 0.5 Tablets (40 mg) by mouth daily at bedtime. 30 Tablet 0 Blood-Glucose Meter (ProjjixTOUCH VERIO FLEX START) Kit To test blood glucose at home. ICD 10: R73.9. 1 Kit 0 blood sugar diagnostic (ONETOUCH VERIO) Strip To test fsbg three times daily . ICD 10: R73.9.. 100 Each 0 lancets (One Touch DelOnarbor) 33 gauge To test fsbg three times daily. ICD 10 R 73.9. 100 Each 0 ipratropium-albuterol (DUONEB) 0.5 mg-3 mg(2.5 mg base)/3 mL Solution for Ne bulization Take 3 mL by inhalation every 6 hours as needed for Shortness of Amirah th. 90 mL 0 fluticasone-vilanterol (BREO ELLIPTA) 200-25 mcg/dose Disk with Device Take 1 Puff by inhalation daily. 1 Inhaler 0 rivaroxaban (XARELTO) 20 mg Tablet Take 20 mg by mouth daily. gabapentin enacarbil (HORIZANT ORAL) Take 1,200 mg by mouth daily . buprenorphine HCl (BELBUCA) [address] 75 mcg inside cheek 2 times da brenna. lisinopril (PRINIVIL) 20 mg tablet Take 1 Tablet (20 mg) by mouth daily. 90 Tablet 1 hydrOXYzine pamoate (VISTARIL) 50 mg capsule Take 1 Capsule (50 mg) by mouth 3 times daily as needed for Anxiety. 30 Capsule 0 levothyroxine 75 mcg tablet Take 75 mcg by mouth daily instrument mechanics supervisor. DULoxetine (CYMBALTA) 60 mg Capsule, Delayed Release(E.C.) Take 60 mg by sania th 2 times daily . timolol (TIMOPTIC) 0.5 % solution Administer 1 Drop in left eye 2 times karlene y. diphenhydrAMINE (BENADRYL) 25 mg Oral tablet Take 25 mg by mouth every 6 filiberto rs as needed. Allergies morphine (MS IR) 15 mg Oral tablet Take 15 mg by mouth every 4 hours as need ed. breakthru pain omeprazole (PRILOSEC) 20 mg Oral CpDR Take 20 mg by mouth daily. docusate sodium (COLACE) 100 mg Oral capsule Take 1 Cap by mouth 2 times agustín ly. ALBUTEROL INHALATION No current facility-administered medications for this visit. Allergies Allergen Reactions Adhesive Tape-Silicones Rash Aspirin Unknown Codeine Unknown Compazine [Prochlorperazine Edisylate] Unknown Imitrex [Sumatriptan Succinate] Unknown Inapsine [Droperidol] Unknown Reglan [Metoclopramide] Anaphylaxis Minal-30 Unknown Toradol [Ketorolac] Unknown Betadine [Povidone-Iodine] Rash Family History Problem Relation Age of Onset Heart Disease Father Cancer Mother Healthy Sister Healthy Brother Social History Social History Marital status: Spouse name: N/A Number of children: N/A Years of education: N/A Occupational History Disabled Social History Main Topics Smoking status: Current Every Day Smoker Packs/day: 1.00 Years: 25.00 Types: Cigarettes Smokeless tobacco: Never Used Alcohol use No Drug use: Yes Types: Marijuana Sexual activity: No Other Topics Concern Not on file Social History Narrative No narrative on file Objective Objective: PHYSICAL EXAM BP (!) 144/84 (BP Location: Left arm, Patient Position (BP): Sitting, BP Cuff Si ze: Adult) | Pulse 77 | Temp 98.4 F (36.9 C) (Temporal) | Ht 5' 7" (1.702 m) | Wt 75.6 kg (166 lb 11.2 oz) | BMI 26.11 kg/m Physical Exam Constitutional: She is oriented to person, place, and time. She appears well-dev eloped. HENT: Head: Normocephalic. Eyes: Conjunctivae are normal. Neck: Neck supple. Numerous bilateral neck scars from line placement Cardiovascular: Normal rate. Pulmonary/Chest: Effort normal and breath sounds normal. Numerous chest scars bilateral chest due to port placement Abdominal: Soft. Neurological: She is alert and oriented to person, place, and time. Assessment Assessment and Plan: ASSESSMENT and PLAN: ICD-10-CM ICD-9-CM 1. Chronic venous embolism and thrombosis of deep vessels of distal end of right lower extremity I82.5Z1 453.52 AMB REFERRAL TO CARDIOVASCULAR SURGERY US LOW EXT LUCAS DUPLEX COMP BILAT Orders Placed This Encounter US LOW EXT LUCAS DUPLEX COMP BILAT AMB REFERRAL TO CARDIOVASCULAR SURGERY Will plan for duplex to see if no clot in groin vessels, does not have limb swel ling. I do not have anything to offer this patient , this groin may be the only patient vein with stents, very difficult placing this and unfortunate may be co krish at the end of possible access, will send to CV surgery to see they have any options consider do venograms, but based on past exam, has subclavian stricture s, and SVC occulusion. If CV unable to provide access the recommend referral to [facility] or [facility] for evaluation. This was discussed in detail with patient Emigdio Argueta MD MATION ENGINEERING TECHNICIAN documented in this encounter Plan of Treatment Order Schedule Name Type Priority Associated Diag noses Ordered: 04/13/2018 AMB REFERRAL TO Outpatient Routine Chronic venous embolism CARDIOVASCULAR SURGERY Referral and thrombosis of deep vessels of distal end of right lower extremity documented as of this encounter Visit Diagnoses Diagnosis Chronic venous embolism and thrombosis of deep vessels of distal end of right lower extremity - Primary documented in this encounter Additional Health Concerns Assessment Noted Time A Depression follow-up plan has been documented for t he patient 06/07/2017 12:05 PM AUTOMATION ENGINEERING TECHNICIAN documented as of this encounter
--- OUTSIDE RECORDS SUMMARY | 2019-09-01 13:59 | XMS REPORT | Encounter Summary ---
Author Author [facility], Jah Garcia, [place], [place], [facility] Organization [facility] Jah Garcia, [place], [place], [facility] Address Unknown Phone Unavailable Care Team Providers Care Fisher Oyster Name Role Phone Jose Corona DO PCP Reason for Visit * Reason Comments TRANSITION CARE MANAGEMENT Encounter Details Care Team Description Date Type Department Aimee Cody, SECURITY PROFESSIONAL CARE MANAGEMENT 10/05/2017 Patient [facility] re Outreach Management [address] [id number] Social History Date Tobacco Use Types Packs/Day [...] as of this encounter Progress Notes * Aimee Cody, RN - 10/06/2017 1:05 PM CDT Transition of Care Management: OUTBOUND CALL Name: Sophia Hawkins : 1965 DISCHARGE DATE:10/05/17 READMISSION RISK SCORE: 8 HIGH READMISSION RISK 8 Total Score 3 COPD 5 Prior Hospitalizations REASON FOR THE ADMISSION: Chest Pain FACILITY TYPE: Inpatient FACILITY [facility]: [facility] PCP: Jose Corona DO Performed by: Milena Cody RN on 10/06/2017. Spoke with: patient. CURRENT SYMPTOMS AND STATUS 1. Is patient feeling as well as they expected to feel at this point? no could not urinate yesterday and ended up going to the ED 2. What problems has patient had since coming home? Denies any chest pain or di scomfort but could not urinate yesterday and ended up going to the ED and they s ent her home with a trivedi catheter and instructed to follow-up with PCP 3. The following symptoms to report were discussed with patient: Return of ches t pain/discomfort, shortness of breath, and symptoms as in the past REVIEW DISCHARGE AND FOLLOW-UP PLAN 1. Follow-Up Appointment Scheduled: Yes FOR: October 07, PROVIDER: Dr. Moreira. Appointment within 7 days Appointment within 7 days after discharge: Yes. . 2. Is there anything that will keep the patient from making it to this appointm ent? No 3. Was the patient set up with any home health, medical equipment, or other ser vices upon discharge? No - was already on service Services patient is supposed to receive: halfway What agency is delivering these services? [facility] 4. Identify any tests patient feels have been recommended, but not yet completed : Repeat CT Chest in 6 months. 5. Did the patient decide to quit smoking in the hospital no. Does the patient h ave cessation resources no - hoping to cut back - currently smoking a pack a day SUPPORT/CAREGIVER ASSESSMENT 1. Patient's current living arrangement: lives with their family - she is the c aregiver for her [id number] 2. Who is currently acting as patient's caregiver since discharge? Self 3. Is there anything patient is having difficulty with in terms of taking care of basic needs at home (ADL's)? Yes has in-home services to assist as necessary. FALL RISK She has had no falls in the past year. N/A FOOD INSECURITY SCREENING 1. Within the past 12 months have you worried whether your food would run out or did it run out before you were able to afford to buy more? No MEDICATION RECONCILIATION A. Reconcile medications patient is actually taking against the EMR List: Current and discharge medications reviewed and reconciled: Yes 1. Does the patient have a current updated list? yes 2. Was patient told to stop any existing medications or start any new ones? Ye s Start Lipitor, Robaxin x 3 days, Zofran prm nausea, Lantus Insulin until BS ar e < 120, stop Patanol, Prednisone, and Zanaflex, cont all other meds as before 3. Patient has access to the updated/new medications? yes 4. Patient/caregiver understands medication changes that were made during hospi talization or ED Visit? yes 5. Patient/caregiver understands medication purpose(s) and dosing? yes 6. Do discrepancies exist? No B. Overall Medication Adherence: The patient reports adherence to this regimen Requested patient/caregiver to bring actual medicine bottles for all medicines laisha chambers are taking to the follow up appointment. Educated patient on how to reach th eir provider or access appropriate medical assistance after hours or if office i s closed. Informed of Nurse complaint investigations officer service and how to access. Do you have an email address? No Would you like for me to email or mail you some information about your condition ? no EMMIs sent: no Materials sent via postal mail:No At this time, do you have any emotional or spiritual concerns? No Ambulatory Pastoral Care (REF [id number]) referral made:no Staff: The following issues/concerns will be escalated to the primary care provider: Dariel roth has a trivedi cath in place due to urinary retention/inability to urinate Referrals made secondary to concerns: none How much time did it take to make this call: 55 minutes, including call prep, ch art review, documentation, interventions, and follow up. RIZWANA Meehan RN Case Management documented in this encounter Plan of Treatment Not on filedocumented as of this encounter Visit Diagnoses Not on filedocumented in this encounter Additional Health Concerns Assessment Noted Time A Depression follow-up plan has been documented for laisha guevara patient 06/07/2017 12:05 PM [employer] documented as of this encounter
--- OUTSIDE RECORDS SUMMARY | 2019-09-01 13:59 | XMS REPORT | Encounter Summary ---
Author Author [facility], [facility], [place] Organization [facility] Jah Garcia, [place], [place], [facility] Address Unknown Phone Unavailable Care Team Providers Care Psychologist Experimental Name Role Phone Jose CoronaKristie DO PCP Reason for Visit * Auth/Cert Referred By Contact Referred To Contact Status Reason Specialty Diagnoses / Procedures [facility] 7 Cardiac Medical Telemetry [address] [place] [address] Multi Specialty Diagnoses Chest Pain Encounter Details Care Team Description Date Type Department Ramez Mcghee MD [address] [place] [address] Laura Mccormack, DO [address] [id number] Shaniqua Burgess MD [address] [place] [id number] Danielle Rudd MD [address] [place] [address] Tushar Valente (Do Not Use)MD NO ADDRESS ON FILE Chest pain 09/29/2017 [facility] in 7 - Encounter Floor Cardiac Medic al 10/04/2017 Telemetry [address] [place] [id number] Social History Date Tobacco Use Types Packs/Day [...] Signs Reading Time Taken Comments Vital Sign 109/62 10/04/2017 8:12 AM CDT Blood Pressure 80 10/04/2017 12:45 PM CDT Pulse 36.8 C (98.3 F) 10/04/2017 8:12 AM CDT Temperature 18 10/04/2017 12:45 PM CDT Respiratory Rate 95% 10/04/2017 8:12 AM CDT Oxygen Saturation - - Inhaled Oxygen Concentration 67.8 kg (149 lb 7.6 oz) 10/03/2017 3:33 AM CDT Weight 170.2 cm (5' 7") 09/29/2017 3:36 PM CDT Height 23.41 09/29/2017 3:36 PM CDT Body Mass Index documented in this encounter Discharge Summaries * Tushar Valente MD - 10/04/2017 11:56 AM CDT Hospitalist Discharge Summary PATIENT: Sophia Hawkins AGE: 52 y.o. CSN: [id number] SEX: female Date of : 1965 Reason for Hospitalization: Chest pain Admit date: 09/29/2017 Discharge date: 10/04/2017 Hospital day: LOS: 4 days Significant procedures performed: CXR 1. Scarring versus small recurrent right pleural fluid collection. 2. Possible catheter with tip projected over the region of the inferior vena cava/right atrial junction, versus a foreign body located external to the patient. 3. No other evidence of an acute process, with stable postsurgical changes at the base of the right neck CTA Chest Study limited by patient motion. Negative for definite CTA evidence of pulmonary embolism. Chronic pleural thickening at both lung apices. Interstitial prominence, some areas of which demonstrate a nodular configuration. 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 Rd Manager sheila deep venous thrombosis is noted in the femoral and peroneal veins. Left: There is no evidence of deep or superficial venous thrombosis. NMST EF 67 %. No infarct or ischemic segmental pattern. Normal contractility/wall motion. No left ventricular cavity enlargement. Cardiolite study otherwise within normal limits (WNL). Consults: general surgery Hospital Course: Sophia Hawkins is a 52 y.o., female with past medical history significant for lupus anticoagulant with hypercoagulable state, DVT on Xarelto, chronic pancreatitis admitted with complaints of chest pain which was described more as a pressure associated with upper extremity numbness. Labs done in the ER revealed normal troponin. EKG was also unremarkable. During the course of her stay in the hospital, she had a stress test done which was normal. She also had CTA chest done which was negative for acute PE. Following CT Chest , PORT could no longer be accessed & Surgery was consulted. Plan was to wire out existing port or replace it if necessary today. She continues to complain of RLE pain (has chronic DVT, femoral & peroneal veins) & is on significantly high doses of pain meds. 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 Disposition: home Activity: As tolerated Diet: Diabetic diet (specify calories / restrictions) and heart healthy Medication List START taking these medications atorvastatin 80 mg tablet Commonly known as: LIPITOR Take 0.5 Tablets (40 mg) by mouth daily at bedtime. Signed by: Danielle Rudd MD Quantity: 30 Tablet Refills: 0 insulin glargine 100 unit/mL injection Commonly known as: LANTUS Inject 10 Units by subcutaneous injection daily with breakfast. Signed by: Danielle Rudd MD Quantity: 3 mL Refills: 0 methocarbamol 500 mg tablet Commonly known as: ROBAXIN Take 1 Tablet (500 mg) by mouth 4 times daily for 3 days. Signed by: Danielle Rudd MD Quantity: 12 Tablet Refills: 0 CHANGE how you take these medications ondansetron 8 mg Tablet, Rapid Dissolve Commonly known as: ZOFRAN ODT What changed: medication strength how to take this when to take this Take 1 Tablet (8 mg) by mouth every 6 hours as needed for Nausea/Emesis. Signed by: Tushar Valente MD Quantity: 30 Tablet Refills: 0 CONTINUE taking these medications ALBUTEROL INHALATION Refills: 0 [address] 75 mcg inside cheek 2 times daily. Signed by: Paul Pelletier MD Refills: 0 Generic drug: buprenorphine HCl blood sugar diagnostic Strip Commonly known as: ONETOUCH VERIO To test fsbg three times daily. ICD 10: R73.9.. Signed by: BRIAN Kay Quantity: 100 Each Refills: 0 Blood-Glucose Meter Kit Commonly known as: ONETOUCH VERIO FLEX START To test blood glucose at home. ICD 10: R73.9. Signed by: BRIAN Kay Quantity: 1 Kit Refills: 0 COLACE 100 mg capsule Take 1 Cap by mouth 2 times daily. Refills: 0 Generic drug: docusate sodium diphenhydrAMINE 25 mg tablet Commonly known as: BENADRYL Take 25 mg by mouth every 6 hours as needed. Allergies Refills: 0 DULoxetine 60 mg Capsule, Delayed Release(E.C.) Commonly known as: CYMBALTA Take 60 mg by mouth 2 times daily . Refills: 0 fluticasone-vilanterol 200-25 mcg/dose Disk with Device Commonly known as: BREO ELLIPTA Take 1 Puff by inhalation daily. Signed by: Tushar Valente MD Quantity: 1 Inhaler Refills: 0 HORIZANT ORAL Take 1,200 mg by mouth daily . Refills: 0 hydrOXYzine pamoate 50 mg capsule Commonly known as: VISTARIL Take 1 Capsule (50 mg) by mouth 3 times daily as needed for Anxiety. Signed by: Rayna Gao MD Quantity: 30 Capsule Refills: 0 ipratropium-albuterol 0.5 mg-3 mg(2.5 mg base)/3 mL Solution for Nebulization Commonly known as: DUONEB Take 3 mL by inhalation every 6 hours as needed for Shortness of Breath. Signed by: Tushar Valente MD Quantity: 90 mL Refills: 0 lancets 33 gauge Commonly known as: One Touch Delica To test fsbg three times daily. ICD 10 R73.9. Signed by: BRIAN Kay Quantity: 100 Each Refills: 0 levothyroxine 75 mcg tablet Commonly known as: SYNTHROID Take 75 mcg by mouth daily hospital account manager. Refills: 0 lisinopril 20 mg tablet Commonly known as: PRINIVIL Take 1 Tablet (20 mg) by mouth daily. Signed by: Rayna Gao MD Quantity: 90 Tablet Refills: 1 morphine 15 mg tablet Commonly known as: MS IR Take 15 mg by mouth every 4 hours as needed. breakthru pain Refills: 0 omeprazole 20 mg Capsule, Delayed Release(E.C.) Commonly known as: PriLOSEC Take 20 mg by mouth daily. Refills: 0 timolol 0.5 % solution Commonly known as: TIMOPTIC Administer 1 Drop in left eye 2 times daily. Refills: 0 XARELTO 20 mg Tablet Take 20 mg by mouth daily. Refills: 0 Generic drug: rivaroxaban STOP taking these medications olopatadine 0.1 % solution Commonly known as: PATANOL phenazopyridine 95 mg Tablet predniSONE 20 mg tablet Commonly known as: DELTASONE tiZANidine 4 mg Tablet Commonly known as: ZANAFLEX Where to Get Your Medications These medications were sent to [facility] [address] [place], [facility] [id number] atorvastatin 80 mg tablet methocarbamol 500 mg tablet ondansetron 8 mg Tablet, Rapid Dissolve Information about where to get these medications is not yet available Ask your nurse or doctor about these medications insulin glargine 100 unit/mL injection Discharge Condition: Improved Discharge review/exam- Met with the patient and family and reviewed results of h ospital stay, discharge meds and follow up plan. Answered question to patient's satisfaction. BP 109/62 (BP Location: Right arm, Patient Position (BP): Supine) | Pulse 77 | Temp 98.3 F (36.8 C) (Oral) | Resp 18 | Ht 5' 7" (1.702 m) | Wt 67.8 kg (149 lb 7.6 oz) | SpO2 95% | ? No | BMI 23.41 kg/m -Physical Exam Constitutional: See Vitals above. no acute distress. HEENT: No scleral icterus or conjunctival injection Cardiovascular:RRR without murmur, no edema Respiratory: no respiratory distress. Auscultation: CTAB Gastrointensitnal: Abdomen Soft, Non-tender, Non-distended Musculoskeletal: No gross deformity noted. Left groin with incision from port re placement c/d/i without significant hematoma Neurologic: No focal deficit noted Psychiatric: Alert and Oriented x 3. Normal judgement Diet: Diabetic 1800 kcal/day Activity: activity as tolerated Special Instructions: -Take medications as prescribed -Check your blood sugar before each meal (3x/day) and give novolog sliding scale . Once morning blood sugar is <120, ok to stop lantus -Be cautious with activity while left groin is healing -Recommend that you have repeat CT chest in 6 months Follow up: with Jose Corona DO in 3 days Follow up with Primary Care Provider or the Emergency room sooner if: fever, chi lls, increased pain, swelling or bleeding of your groin or other concern Important notification concerning prescription medicine During your hospital stay, you were cared for by physicians in the [facility] list program. At the time of your discharge we will supply prescriptions for any medications that are new or changed during your hospital stay. As Hospitalist o ur practice is restricted to patients in the hospital. As a result, we cannot re fill medications after your discharge from the hospital. It is very important t hat you contact your usual physician for any issues related to refilling a medic ation or changing current medications. Also, at the time of discharge we will be giving you recommendations concerning followup care with your physician. Other patient instructions/education materials see separate discharge instructio n sheet. Signed: Tushar Valente MD 10/04/2017, 11:50 AM CC: Jose Corona DO [address] [address] [address] / [facility] [id number] documented in this encounter Discharge Instructions * Instructions* Mary Beth Lockwood RN - 10/04/2017 Hospitalist Discharge Instructions Discharge Diagnoses Chest pain Active Hospital Problems Diagnosis Slow transit constipation Personal history of DVT (deep vein thrombosis) Chronic venous embolism and thrombosis of deep vessels of distal end of righ t lower extremity Encounter for care related to vascular access port Chest pain Lupus anticoagulant with hypercoagulable state Tobacco use Chronic pain syndrome Narcotic dependence H/O small bowel obstruction Other sleep apnea Acquired hypothyroidism Resolved Hospital Problems Diagnosis Date Resolved No resolved problems to display. Diet: Diabetic 1800 kcal/day Activity: activity as tolerated Special Instructions: -Take medications as prescribed -Check your blood sugar before each meal (3x/day) and give novolog sliding scale . Once morning blood sugar is <120, ok to stop lantus -Be cautious with activity while left groin is healing -Recommend that you have repeat CT chest in 6 months Follow up: with Jose Corona, DO in 3 days Follow up with Primary Care Provider or the Emergency room sooner if: fever, chi lls, increased pain, swelling or bleeding of your groin or other concern Important notification concerning prescription medicine During your hospital stay, you were cared for by physicians in the [facility] list program. At the time of your discharge we will supply prescriptions for any medications that are new or changed during your hospital stay. As Hospitalist o ur practice is restricted to patients in the hospital. As a result, we cannot re fill medications after your discharge from the hospital. It is very important t hat you contact your usual physician for any issues related to refilling a medic ation or changing current medications. Signed: Tushar Valente MD 10/04/2017, 11:45 AM [facility] to resume previous [facility] plan of care. documented in this encounter Medications at Time of Discharge Start Date End Date Medication Sig Dispensed Refills 10/04/2017 ondansetron (ZOFRAN ODT) Take 1 Tablet 30 Tablet 0 8 mg Tablet, Rapid (8 mg) by Dissolve mouth every 6 hours as needed for Nausea/Emesis . 10/03/2017 insulin glargine (LANTUS) Inject 10 3 mL 0 100 unit/mL injection Units by subcutaneous injection daily with breakfast. 10/03/2017 atorvastatin (LIPITOR) 80 Take 0.5 30 Tablet 0 mg tablet Tablets (40 mg) by mouth daily at bedtime. 09/20/2017 Blood-Glucose Meter To test blood 1 Kit 0 (ONETOUCH VERIO FLEX glucose at START) Kit home. ICD 10: R73.9. 09/20/2017 blood sugar diagnostic To test fsbg 100 Each 0 (ONETOUCH VERIO) Strip three times daily. ICD 10: R73.9.. 09/20/2017 lancets (One Touch To test fsbg 100 Each 0 Delica) 33 gauge three times daily. ICD 10 R73.9. 09/20/2017 ipratropium-albuterol Take 3 mL by 90 mL 0 (DUONEB) 0.5 mg-3 mg(2.5 inhalation mg base)/3 mL Solution every 6 hours for Nebulization as needed for Shortness of Breath. 09/20/2017 fluticasone-vilanterol Take 1 Puff 1 Inhaler 0 (BREO ELLIPTA) 200-25 by inhalation mcg/dose Disk with Device daily. rivaroxaban (XARELTO) 20 Take 20 mg by 0 mg Tablet mouth daily. gabapentin enacarbil Take 1,200 mg 0 (HORIZANT ORAL) by mouth daily . buprenorphine HCl Place 75 mcg 0 (BELBUCA) 75 mcg Film inside cheek 2 times daily. 08/03/2017 lisinopril (PRINIVIL) 20 Take 1 Tablet 90 Tablet 1 mg tablet (20 mg) by mouth daily. 08/03/2017 hydrOXYzine pamoate Take 1 30 Capsule 0 (VISTARIL) 50 mg capsule Capsule (50 mg) by mouth 3 times daily as needed for Anxiety. levothyroxine 75 mcg Take 75 mcg 0 tablet by mouth daily hospital account manager. DULoxetine (CYMBALTA) 60 Take 60 mg by 0 mg Capsule, Delayed mouth 2 times Release(E.C.) daily . timolol (TIMOPTIC) 0.5 % Administer 1 0 solution Drop in left eye 2 times daily. diphenhydrAMINE Take 25 mg by 0 (BENADRYL) 25 mg Oral mouth every 6 tablet hours as needed. Allergies morphine (MS IR) 15 mg Take 15 mg by 0 Oral tablet mouth every 4 hours as needed. breakthru pain omeprazole (PRILOSEC) 20 Take 20 mg by 0 mg Oral CpDR mouth daily. docusate sodium (COLACE) Take 1 Cap by 0 100 mg Oral capsule mouth 2 times daily. ALBUTEROL INHALATION 0 10/03/2017 10/06/2017 methocarbamol (ROBAXIN) Take 1 Tablet 12 Tablet 0 500 mg tablet (500 mg) by mouth 4 times daily for 3 days. documented as of this encounter Progress Notes * Leslee Pedroza RN - 10/04/2017 12:02 PM CDT Discharge plan: Home, resume [facility] for SN visits CM met with patient and discussed IM letter, signature received, copy offered an d declined. States no needs at this time. CM to follow. NANI Camilo, BSN, Communications Marketing Intern [phone] * Francine Kumar RN - 10/04/2017 11:26 AM CDT 1039: Dr. Valente called. Patient requesting to be discharged by 1300 due to radha t being the only time the patient will have a ride home. Left massage. No return ed call at this time. * Mary Beth Lockwood RN - 10/04/2017 11:04 AM CDT [facility] FYI NOTE--pt is a current [facility] client with [facility] for Skilled Nurse Visits. Per [facility]--pt does not have home PT in place, as she will not part icipate with home PT. Following... Tessa.ALLISON CARDOZA [facility] liaison * Francine Kumar RN - 10/04/2017 10:35 AM CDT Assessing patient this AM concerning nausea and vomiting. Patient stated that sh e was not feeling nauseated at that time. Gave patient morning medications then patient requested morphine and Zofran for nausea. Questioned patient about stati ng she was not feeling nauseated just a few minutes prior and patient states "oh yeah, I'm not". Patient was then asked about her goal and the patient stated "to go home and get better medications". * Danielle Rudd MD - 10/03/2017 3:51 PM CDT Hospitalist Progress Note Note date: 10/10/2017 ADMIT DATE 09/29/2017 Hospital LOS: 4 days Primary admission Dx- Chest pain Subjective Chief Complaint- Chest pain HPI- Sophia Hawkins is a 52 y.o. female Sophia Hawkins is a 52 y.o., female wi th past medical history significant for lupus anticoagulant with hypercoagulable state, DVT on Xarelto, chronic pancreatitis admitted with complaints of chest p ain which was described more as a pressure associated with upper extremity numbn ess. Labs done in the ER revealed normal troponin. EKG was also unremarkable. During the course of her stay in the hospital, she had a stress test done which was normal. She also had CTA chest done which was negative for acute PE. Following CT Chest , PORT could no longer be accessed & Surgery was consulted. Plan was to wire out existing port or replace it if necessary today. She continues to complain of RLE pain (has chronic DVT, femoral & peroneal veins) & is on significantly high doses of pain meds. Will most likely be d/manny in a.m after PORT placement ROS Constitutional- No fever, night sweats, fatigue EYE- no blurred vision, double vision ENT-, no difficulty swallowing, no symptoms of oral candidiasis Lungs- no complaint of respiratory distress, no wheezing CV- no chest pain, palpitation GI- no nausea, vomiting, diarrhea, no abdominal pain - no difficulty voiding, no flank pain MS- no significant edema Remainder of 10 point review of system is negative Objective BP 109/62 (BP Location: Right arm, Patient Position (BP): Supine) | Pulse 80 | Temp 98.3 F (36.8 C) (Oral) | Resp 18 | Ht 5' 7" (1.702 m) | Wt 67.8 kg (149 lb 7.6 oz) | SpO2 95% | ? No | BMI 23.41 kg/m The range of BP in the last 24 hours is: BP: -- No intake or output data in the 24 hours ending 10/10/17 1551 Physical Exam Lung- CTA B/L Heart- RRR, No Murmur Abd- BS active, non tender Ext- NO Edema Reviewed All recent data in "lab, imaging, CV and pathology" section All pertinent notes under the "all notes" section. Current orders, adjustments made as appropriate. Telemetry tracing in paper chart Impression Principle problem Chest pain Current Active Hospital Problem List Active Hospital Problems Diagnosis Slow transit constipation Personal history of DVT (deep vein thrombosis) Chronic venous embolism and thrombosis of deep vessels of distal end of righ t lower extremity Encounter for care related to vascular access port Chest pain Lupus anticoagulant with hypercoagulable state Tobacco use Chronic pain syndrome Narcotic dependence H/O small bowel obstruction Other sleep apnea Acquired hypothyroidism Resolved Hospital Problems Diagnosis Date Resolved No resolved problems to display. Discussion/Plan -NMST was normal -CTA Chest-no PE -For PORT placement today -D/C in a.m if stable Danielle Rudd MD, 10/10/2017 3:51 PM * Melanie Cisse RN - 10/03/2017 2:23 PM CDT Betadine nasal swab not given due to allergy. Patient transported to OR via [facility]. * Laura Mccormack DO - 10/02/2017 10:46 AM CDT Hospitalist Progress Note Note date: 10/02/2017 ADMIT DATE 09/29/2017 Hospital LOS: 2 days Primary admission Dx- Chest pain Subjective: Chief Complaint- Chest pain HPI- Sophia Hawkins is a 52 y.o. female who has multiple complaints once again today. Needs her pain medication increased due to right leg pain that has the chronic D VT noted on ultrasound. Dr. Argueta will attempt to remove that clot tomorrow. Did not sleep well last night. No bowel movement for the past 2 days so we will initiate lactulose and Colace. Overall she is doing well labs reviewed medication reviewed. Review of Systems Constitutional: Positive for malaise/fatigue. Gastrointestinal: Positive for constipation. Musculoskeletal: Positive for joint pain and myalgias. Psychiatric/Behavioral: Positive for depression. All other systems reviewed and are negative. Objective: BP 135/67 (BP Location: Left arm, Patient Position (BP): Sitting) | Pulse 68 | Temp 97.5 F (36.4 C) (Oral) | Resp 20 | Ht 5' 7" (1.702 m) | Wt 67.4 kg (148 lb 11.2 oz) | SpO2 92% | ? No | BMI 23.29 kg/m The range of BP in the last 24 hours is: BP: (113-135)/(59-73) Intake/Output Summary (Last 24 hours) at 10/02/17 1047 Last data filed at 10/02/17 0700 Gross per 24 hour Intake 1590 ml Output 0 ml Net 1590 ml Physical Exam Constitutional: She is oriented to person, place, and time. She appears well-dev eloped and well-nourished. HENT: Head: Normocephalic and atraumatic. Eyes: Conjunctivae and EOM are normal. Pupils are equal, round, and reactive to light. Neck: Normal range of motion. Neck supple. Cardiovascular: Normal rate, regular rhythm and normal heart sounds. Pulmonary/Chest: Effort normal and breath sounds normal. Abdominal: Soft. Bowel sounds are normal. Neurological: She is alert and oriented to person, place, and time. She has norm al reflexes. Skin: Skin is warm and dry. Psychiatric: She has a normal mood and affect. Her behavior is normal. Judgment and thought content normal. Reviewed All recent data in "lab, imaging, CV and pathology" section All pertinent notes under the "all notes" section. Current orders, adjustments made as appropriate. Assessment: Principle problem Chest pain Current Active Hospital Problem List Active Hospital Problems Diagnosis Slow transit constipation Personal history of DVT (deep vein thrombosis) Chronic venous embolism and thrombosis of deep vessels of distal end of righ t lower extremity Encounter for care related to vascular access port Chest pain Lupus anticoagulant with hypercoagulable state Tobacco use Chronic pain syndrome Narcotic dependence H/O small bowel obstruction Other sleep apnea Acquired hypothyroidism Resolved Hospital Problems Diagnosis Date Resolved No resolved problems to display. Plan: 1. Proceed on with replacement of port tomorrow by Dr. Argueta 2. Increased pain medication slightly at patient's request 3. Bowel regimen 4. Continue Lovenox for DVT prophylaxis therapeutic dose since she has been off oral anticoagulation 5. Restart oral anticoagulation after procedure tomorrow 6. Smoking cessation 7. Hopefully discharge tomorrow The patient was seen by me on 10/02/17 at about 0900 Laura Mccormack DO 10/02/2017 10:47 AM * Emigdio Argueta MD - 10/02/2017 8:14 AM CDT Discussed with patient that will try to wire out the exisiting port and replace if possible, if not will try other areas and plan on venogram for evaluation of venous access. Also discussed with patient of failure of not being able to prov pita access, hemopneumothorax and vessel injury. The risks, benefits and alterna tives of surgery were discussed and , included pain, bleeding, infection, VT, P E/DVT, stroke . Patient verbalized understanding and all questions were answered to patient satisfaction * Laura Mccormack DO - 10/01/2017 9:54 AM CDT Hospitalist Progress Note Note date: 10/01/2017 ADMIT DATE 09/29/2017 Hospital LOS: 1 day Primary admission Dx- Chest pain Subjective: Chief Complaint- Chest pain HPI- Sophia Hawkins is a 52 y.o. female who is overall stable but has multiple complaints. Feels like she cannot urinate and has had a catheter before in addition to kidne y failure so we will bladder scan and maintain Pyridium. After that was complet ed I did follow up on the nurse note and only 92 cc of post void residual remain ed in the bladder. Has a lot of pain wondering if she can go back on the Robaxin so I did order radha t. We will discontinue telemetry. She is on 8 L of oxygen at night since she does not use the breathing machine th at she does at night at home. She really feels like she threw a clot since she has had that many times before and that is consistent with a normal cardiac stress test and considering she was off Xarelto for 5 days in order to obtain a procedure so that would be consiste nt. Patient on Lovenox twice daily. Review of Systems Constitutional: Positive for malaise/fatigue. Genitourinary: Positive for frequency and urgency. Musculoskeletal: Positive for back pain. Neurological: Positive for dizziness. Psychiatric/Behavioral: The patient is nervous/anxious. Objective: BP 117/65 (BP Location: Left arm, Patient Position (BP): Sitting) | Pulse 70 | Temp 98.4 F (36.9 C) (Oral) | Resp 18 | Ht 5' 7" (1.702 m) | Wt 71.6 kg (157 lb 12.8 oz) | SpO2 98% | ? No | BMI 24.71 kg/m The range of BP in the last 24 hours is: BP: (112-145)/(56-79) No intake or output data in the 24 hours ending 10/01/17 0954 Physical Exam Constitutional: She is oriented to person, place, and time. She appears well-dev eloped and well-nourished. Cardiovascular: Normal rate and regular rhythm. Pulmonary/Chest: Effort normal and breath sounds normal. Neurological: She is alert and oriented to person, place, and time. Reviewed All recent data in "lab, imaging, CV and pathology" section All pertinent notes under the "all notes" section. Current orders, adjustments made as appropriate. Assessment: Principle problem Chest pain Current Active Hospital Problem List Active Hospital Problems Diagnosis Encounter for care related to vascular access port Chest pain Lupus anticoagulant with hypercoagulable state Tobacco use Chronic pain syndrome Narcotic dependence H/O small bowel obstruction Other sleep apnea Acquired hypothyroidism Resolved Hospital Problems Diagnosis Date Resolved No resolved problems to display. Plan: 1. Maintain Lovenox 60 mg subcu every 12 hours until procedure performed to repl david port by Dr. Argueta on Tuesday 2. Robaxin to be restarted 3. Bladder scan as needed to maintain Pyridium and urinalysis was reviewed at [facility] and that was negative for infection 4. Check labs in morning 5. Maintain oxygen supplementation at night The patient was seen by me on 10/01/17 at about 0800 Laura Mccormack DO 10/01/2017 9:54 AM * Melanie Cisse RN - 10/01/2017 8:36 AM CDT 10/01/17 0400 10/01/17 0817 Void Output Unmeasured Void Moderate amount urine -- *Bladder Volume Per Scan (mL) -- 92 mL * Emigdio Argueta MD - 10/01/2017 8:18 AM CDT Patient with poor venous access, nonfunction left groin port, possible clot, meek l try to take to the OR for access on Tuesday since on anticoagulants, will hold lovenox the morning of surgery. Xray does not show port but appears intact, has possible venous stent. If unable to to provide acess will need evaluation by v ascular surgery * Debbie Wise, NANI - 09/30/2017 4:54 PM CDT Patient has called out multiple times today. Has had consistent pain, with short lived relief. Requesting food and drink as soon as her Echo was completed. Dinn er has been ordered. * Sophia Nance RN - 09/30/2017 3:40 PM CDT Pt currently with IV in her Right foot and Right upper arm, unable to visualize adequate vein for midline insertion in left upper extremity. Pt with extensive v ascular access issues. If pt loses current access re-consult PICC team and we wi ll attempt access, pt states she does not want this nurse to attempt at this deny e, that PICCs have never been successful in the past * Sabrina Del Cid RN - 09/30/2017 11:26 AM CDT Attempted to call nurse with update but no answer. Stress portion of Lexiscan p ostponed per Dr. Pringle until port can be placed for use. Per nuc med IV only delivering half of dose of injected medication. Pt refusing another IV placemen t and agrees to wait until another port is placed by surgeon to proceed with priya t. She was also informed radioactive material needed expires after 1300 today s o likely test not able to be performed today. Per Satnam in Nuc Med resting imag es will be usable for 1-2wks so only stress images will need to be rescheduled i f in that time frame. Transport returning pt room. * Laura Mccormack, DO - 09/30/2017 10:12 AM CDT Hospitalist Progress Note Note date: 09/30/2017 ADMIT DATE 09/29/2017 Hospital LOS: 0 days Primary admission Dx- Chest pain Subjective: Chief Complaint- Chest pain HPI- Sophia Hawkins is a 52 y.o. female who was admitted yesterday due to nonsp ecific chest pressure. She has a stress test scheduled for this morning. She has not had any chest pressure or chest pain since admission. She has had multiple blood clots in the past maintain on anticoagulation but she feels like she has thrown a lot of clots in her femoral region especially since her Gro[place]ong port became dysfunctional last night and she has no vascular access which she is very concerned about and requires a port at all times because of difficulty with access. Considering those complaints I did order a venous Doppl er ultrasound of the lower extremities and did speak with Dr. Argueta general surg santana who will see her in consultation for possibly placement of a new Groshong po rt or working with the one in her left femoral that is currently dysfunctional. Due to the lupus history I was recommended to change it to inpatient status so w e will change that order from observation and will await for stress test results venous Doppler ultrasound and Dr. Argueta plan regarding the port. Smoking cessation counseled. Nuclear medicine did notify me that her peripheral IV was infiltrating so I spok e with Dr. Argueta who recommends anesthesia placement of peripheral IV versus mid line in order to get the cardiac evaluation completed to have a port placed so I did talk to the nurse will put the orders then to get that done before 1:00 when the nuclear tracer is still able to be used. Nuclear medicine did report the patient was less than cooperative so hopefully we can support this patient in an y way we can but she may ultimately leave AGAINST MEDICAL ADVICE. Multiple times during the day I was notified regarding the patient's issues and lastly nuclear scan was completed with anesthesia placement of peripheral IV in her foot and Dr. Argueta recommended holding Xarelto and Plavix in preparation for port placement on Tuesday and will require inpatient hospital stay due to the se verity of her medical problems requiring IV access until per minute port placed on Tuesday. Review of Systems Constitutional: Positive for malaise/fatigue. HENT: Negative. Eyes: Negative. Respiratory: Negative. Cardiovascular: Positive for chest pain and leg swelling. Gastrointestinal: Positive for nausea. Musculoskeletal: Negative. Skin: Negative. Psychiatric/Behavioral: Positive for depression. Patient denies any chest pain or chest pressure currently Patient does report lower extremity pressure just like she had a blood clot in t he past Objective: BP 131/69 | Pulse 88 | Temp 98.4 F (36.9 C) | Resp 20 | Ht 5' 7" (1.702 m) | Wt 64.4 kg (141 lb 15.6 oz) | SpO2 97% | ? No | BMI 22.24 kg/m The range of BP in the last 24 hours is: BP: (116-160)/(61-79) No intake or output data in the 24 hours ending 09/30/17 1420 Physical Exam Constitutional: She is oriented to person, place, and time. She appears well-dev eloped and well-nourished. Neck: Normal range of motion. Neck supple. Cardiovascular: Normal rate, regular rhythm, normal heart sounds and intact dist al pulses. Pulmonary/Chest: Effort normal and breath sounds normal. Neurological: She is alert and oriented to person, place, and time. She has norm al reflexes. Skin: Skin is warm and dry. Psychiatric: She has a normal mood and affect. Her behavior is normal. Judgment and thought content normal. Reviewed All recent data in "lab, imaging, CV and pathology" section All pertinent notes under the "all notes" section. Current orders, adjustments made as appropriate. Telemetry tracing in paper chart reviewed. Assessment: Principle problem Chest pain Current Active Hospital Problem List Active Hospital Problems Diagnosis Encounter for care related to vascular access port Chest pain Lupus anticoagulant with hypercoagulable state Tobacco use Chronic pain syndrome Narcotic dependence H/O small bowel obstruction Other sleep apnea Acquired hypothyroidism Resolved Hospital Problems Diagnosis Date Resolved No resolved problems to display. Plan: 1. Chest pain undergoing stress test this morning results pending 2. Groshong port dysfunction Dr. 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 3. History of multiple DVTs in the past even while maintained on anticoagulation long-term without recent cessation will obtain venous Doppler ultrasound she is describing symptoms consistent with DVTs 4. Change to inpatient per EHR recommendation 5. Lupus 6. Smoker The patient was seen by me on 09/30/17 at about 0800 Laura Mccormack DO 09/30/2017 2:20 PM * Eli Graham RN - 09/30/2017 3:30 AM CDT Port de-accessed due to bleeding beneath device. VSS. Will continue to monitor. * Eli Graham RN - 09/29/2017 10:50 PM CDT Pt left femoral port unable to flush or draw. Dr. Bajwa at bedside to push Cat hflo Acivase after 3 failed attempts to re-access the port. VSS. Will continue t o monitor. * Kenneth Sanchez RT - 09/29/2017 7:[address] IMAGING SERVICES (RADIOLOGY) MEDICATION AND FLUSH PROTOCOL 1. Orders are entered per protocol. 2. Enter the protocol in the patients electronic health record using [employer] ase: [place] protocol 3. For Imaging procedures requiring intravenous access: ? Initiate a peripheral IV, if not already in place, and if the patient is an ou tpatient discontinue IV prior to discharge. ? Enter order if needed: Insert Peripheral IV 4. If required to complete procedure, nurse may place indwelling Trivedi catheter for procedure. Trivedi will be discontinued after procedure. Medication Orders: ? Sodium chloride 0.9% (normal saline) flush will be used to test patency of IV, as well as pre, post and during contrast administration ? Sodium chloride 0.9% (normal saline) flush 10 mL PRN for saline lock or medica tion administration. CT ORAL CONTRAST PROTOCOLS ? Omnipaque 300: Used for routine and stat exams unless patient is allergic to c ontrast. Preferred route is oral. May use any GI tract access approved by the o rdering physician. Dilute 50 mL of Omnipaque 300 in a 32oz cup and fill with wa ter. Administer over a 1-hour time period for Emergency Department patients an d 1.5 hours for inpatient and outpatients, one time only. ? CT Barium: Preferred route is oral. May use any GI tract access approved by the ordering physician. Barium is used only for patients who are allergic to Io dine or when specifically ordered by the ordering physician. Administer 900 mL o emma a 2-hour time period, one time only ? If at any time the ict managers has a question about which option to admini ster, seek clarification from Radiologist. DATE/TIME: ? ELECTRONIC SIGNATURE: ? CT IV Contrast Protocols-Pediatrics Pediatrics: Patients under the age of 18. If doing a combination of exams, ple ase refer to a radiologist for contrast amounts. For any exam not listed, refer to a radiologist for contrast amounts. Abdomen and/or Pelvis Administer 1 mL per pound of Isovue 300 contrast, intraven ously, not to exceed 133 mL. One time only Chest Administer 1 mL per pound of Isovue 300 contrast, intravenously, not to ex ceed 80 mL. One time only Soft Tissue Neck Administer 1 mL per pound of Isovue 300 contrast, intravenously , not to exceed 80 mL. One time only Head Administer 1 mL per pound of Isovue 300 contrast, intravenously, not to exc eed 50 mL. One time only Sinus/Orbits/Facials Administer 1 mL per pound of Isovue 300 contrast, intraveno usly, not to exceed 50 mL. One time only Angio studies Administer 3 mL per pound of Isovue 300 contrast, intravenously, n ot to exceed 94 mL[address] One [address] IV Contrast Protocols-Adults Adults: For any exam not listed, refer to a radiologist for contrast amounts. Abdomen and/or Pelvis Administer Isovue 300 contrast determined by P3T software on injector, intravenously, not to exceed 133 mL. One time only Chest Administer 80 mL Isovue 300 contrast, intravenously. One time only Chest/Abdomen/Pelvis Administer Isovue 300 contrast determined by P3T software o n injector, intravenously, not to exceed 133 mL. One time only Soft Tissue Neck Administer 80 mL Isovue 300 contrast, intravenously. One time only Head Administer 50 mL Isovue 300 contrast, intravenously. One time only Sinus/Orbits/Facials/IAC Administer 50 mL Isovue 300 contrast, intravenously. O ne time only. If more than one plane is ordered, give 100 mL divided (50 mL eac h). DATE/TIME: ? ELECTRONIC SIGNATURE: ? CT IV Contrast Protocols-Adults Adults: For any exam not listed, refer to a radiologist for contrast amounts. Extremities Administer 100 mL Isovue 300 contrast, intravenously. One time only Combination of Head and Sinus/Orbits/Facials/IAC Administer 100 mL Isovue 300 co ntrast divided, intravenously (50 mL each). One time only. Combination of Head and Soft Tissue Neck Administer 100 mL Isovue 300 contrast d ivided, intravenously (50 mL each). One time only. Combination Head and Chest Administer 100 mL Isovue 300 contrast divided, intrav enously (chest 75 mL and head 25 mL). One time only. Combination Head and Abdomen and/or Pelvis and/or Chest Administer 150 mL Isovue 300 contrast divided, intravenously (chest abdomen pelvis 100 mL and the head 50 mL). One time only. Combination of Soft Tissue Neck and Chest and/or Abdomen and/or Pelvis Administe r 150 mL Isovue 300 contrast divided, intravenously (chest abdomen pelvis 100 mL and the soft tissue neck 50 mL). One time only. Cardiac Administer Isovue 370 contrast determined by P3T software on injector, i ntravenously, not to exceed 150 mL. One time only Runoff Angio Study Administer 120 mL Isovue 370 contrast, intravenously. One ti me only Abdomen and/or Pelvis Angio Studies Administer 100 mL Isovue 370 contrast, intra venously. One time only Neck and/or Head Angio Studies Administer 80 mL Isovue 370 contrast, intravenous ly. One time only Chest Angio Studies Administer Isovue 370 contrast determined by P3T software on injector, intravenously, not to exceed 94 mL. One time only Chest Angio and routine abdomen and/or pelvis Administer 100 mL Isovue 370 contr ast, intravenously. One time only Chest Abdomen and/or pelvis Angio Studies Administer 100 mL Isovue 370 contrast, intravenously. One time only Combination of any Angio study Administer Isovue 370 contrast, intravenously, di vided between studies (75 mL each). Not to exceed 150 mL. DATE/TIME: ? ELECTRONIC SIGNATURE: ? CT Rectal Contrast Protocols ? When ordered by physician, dilute 50 mL of Omnipaque 300 in a 32oz cup and inocencia l with water. Pour into an empty enema bag. documented in this encounter H&P Notes * Ramez Mcghee MD - 09/29/2017 12:39 PM CDT Hospitalist Admission History and Physical PATIENT: Sophia Hawkins AGE: 52 y.o. CSN: [id number] : 1965 PCP: Jose Corona DO HPI: Sophia Hawkins is a 52 y.o. White female with Lupus on hypercoagulable state on chronic anticoagulation with DVThx, COPD, HTN, HLD, Hypothyroidism, Chronic Mann creatitis a patient of Jose Corona DO who is being admitted through [facility] from another facility due to chest pain of one day duration related to act ivity described as pressure like with upper extremities numbness. It is to menti on that patient was recently discharge from this institution on 09/20/17 after a s hort stay for COPD exacerbation. Allergies: Allergies Allergen Reactions Adhesive Tape-Silicones Rash Aspirin Unknown Codeine Unknown Compazine [Prochlorperazine Edisylate] Unknown Imitrex [Sumatriptan Succinate] Unknown Inapsine [Droperidol] Unknown Reglan [Metoclopramide] Anaphylaxis Minal-30 Unknown Toradol [Ketorolac] Unknown PMHx: Past Medical History: Diagnosis Date Anxiety Asthma BiPAP (biphasic positive airway pressure) dependence Bowel obstruction 5 bowel obstructions Bowel obstruction Chest pain clots Chronic pain COPD (chronic obstructive pulmonary disease) CRI (chronic renal insufficiency) Depression HTN (hypertension) Hyperlipidemia Hypothyroidism Lupus Lupus Obstructive sleep apnea (adult) (pediatric) Pancreatitis Pulmonary embolism june 2010 Thromboembolism PSHx: Past Surgical History: Procedure Laterality Date CHG ANES FREEING BOWEL ADHESION,ENTEROLYSIS states had "21 surgeries for bowel obstructions" HX APPENDECTOMY HX CHOLECYSTECTOMY HX GALLBLADDER SURGERY HX HYSTERECTOMY HX KNEE ARTHROSCOPY Left HX KNEE SURGERY HX TUMOR REMOVAL abdominal [place] ERCP W/SPHINCTEROTOMY/PAPILLOTOMY N/A 08/30/2014 CHOLANGIOPANCREATOGRAPHY RETROGRADE ENDOSCOPIC performed by Edilberto Urbina MD at [facility] [place] ERCP,RMV F.B./CHANGE STENT N/A 08/30/2014 STENT REMOVAL performed by Edilberto Urbina MD at [facility] [place] INSJ TUNNELED CTR VAD W/SUBQ PORT AGE 4 YR/> 10/08/2010 CATHETER VENOUS ACCESS PLACEMENT performed by APOLLO PINEDA at [facility] Medications: No prescriptions prior to admission. Social Hx: Social History Substance Use Topics Smoking status: Current Every Day Smoker Packs/day: 1.00 Years: 25.00 Types: Cigarettes Smokeless tobacco: Never Used Alcohol use No Family Hx: Family History Problem Relation Age of Onset Heart Disease Father Cancer Mother Healthy Sister Healthy Brother Review of Systems Constitutional- no fever, sweats, night sweats, change in fatigue level EYE- no blurred vision, double vision ENT-, no difficulty swallowing, no symptoms of oral candidiasis Lungs- no complaint of respiratory distress, no wheezing CV- chest pain. GI- no nausea, vomiting, diarrhea, no abdominal pain - no difficulty voiding, no flank pain MS- no significant edema 10 system review is otherwise negative except as discussed above. Physical: Vitals No data found. Physical Exam General appearance - alert, well appearing, and in no distress Mental status - alert, oriented to person, place, and time, normal mood, behavio r, speech, dress, motor activity, and thought processes Eyes - pupils equal and reactive, extraocular eye movements intact, sclera anict [place] Neck - supple, no significant adenopathy, carotids upstroke normal bilaterally, no bruits, thyroid exam: thyroid is normal in size without nodules or tenderness Lymphatics - no palpable cervical lymphadenopathy Chest - clear to auscultation, no wheezes, rales or rhonchi, symmetric air entry Heart - normal rate, regular rhythm, normal S1, S2, no murmur, rubs, clicks or gallops Abdomen - soft, nontender, nondistended, no masses or organomegaly no rebound tenderness noted Neurological - neck supple without rigidity, cranial nerves II through XII intac t, motor and sensory grossly normal bilaterally, normal muscle tone, no tremors, strength 5/5 Extremities - peripheral pulses normal, no pedal edema, no clubbing or cyanosis Skin - normal coloration and turgor, no rashes, no suspicious skin lesions noted Data Review: No results found for this visit on 09/29/17 (from the past 24 hour(s)). EKG: pending, will follow XRAY: pending, will follow Past records available through [facility] Assessment: Principal Problem: Chest pain Active Problems: Tobacco use Chronic pain syndrome Overview: With narcotic dependence Narcotic dependence H/O small bowel obstruction Overview: Multiple times, requiring multiple surgeries with long-term TPN Other sleep apnea Overview: Wears 8 liters via ventimask with sleep. Acquired hypothyroidism Lupus anticoagulant with hypercoagulable state Plan: 1. Cardiac telemetry 2. Serial cardiac enzymes 3. Stress test to follow in AM 4. Continue home medications as Xarelto 5. Patient on chronic Buprenorphine, will manage with morphine. Patient requesti ng higher dosis, educated upon it. The patient was seen by me on 09/29/17 at about 1600. Ramez Shah MD, 09/29/2017 12:39 PM CC. Jose Corona, DO [address] / [facility] [id number] documented in this encounter Consult Notes * Emigdio Argueta MD - 09/30/2017 12:34 PM CDT Consults HISTORY OF PRESENT ILLNESS Sophia Hawkins is a 52 y.o. female admitted with chest pain on 09/29/2017 Subjective HPI Patient with long standing lupus, numerous operations. Was here yesterday and u ndwent CTA of chest via port and now is not working, states was able to draw blo od from it yesterday. I tried to ascess port and will not flush or withdrawal, evalaution of right groin with 5mm femoral vein, non collaspible on the left, ri ght IJ is collaspablile but numerous scars in this area, two attempts at EJ vs c ollateral placement of IV with no success. No IJ to asscess on the left. Patie nt is on Xarelto and plavix Past Medical History: Diagnosis Date Anxiety Asthma [...] HX KNEE SURGERY HX TUMOR REMOVAL abdominal [place] ERCP W/SPHINCTEROTOMY/PAPILLOTOMY N/A 08/30/2014 CHOLANGIOPANCREATOGRAPHY RETROGRADE ENDOSCOPIC performed by Edilberto Urbina MD at [facility] [place] ERCP,RMV F.B./CHANGE STENT N/A 08/30/2014 STENT REMOVAL performed by Edilberto Urbina MD at [facility] [place] INSJ TUNNELED CTR VAD W/SUBQ PORT AGE 4 YR/> 10/08/2010 CATHETER VENOUS ACCESS PLACEMENT performed by APOLLO PINEDA at [facility] Current Facility-Administered Medications Medication Dose Route Frequency Provider Last Rate Last Dose ondansetron (ZOFRAN ODT) tablet 4 mg 4 mg Oral q 8 hour PRN Hamlet Lomax DO 4 mg at 09/30/17 0329 [DISCONTINUED] regadenoson (LEXISCAN) 0.4 mg/5 mL injection 0.4 mg IV Intra -Proc Once Elvin Nielson MD [DISCONTINUED] sodium chloride flush injection 10 mL 10 mL IV Intra-Proc On ce PRN Elvin Nielson MD hydrOXYzine HCl (ATARAX) tablet 50 mg 50 mg Oral TID PRN Joel Mcghee MD lisinopril (PRINIVIL) tablet 20 mg 20 mg Oral Daily Ramez Mcghee MD 20 mg at 09/30/17 0838 ipratropium-albuterol (DUONEB) 0.5 mg-3 mg(2.5 mg base)/3 mL inhalation solu tion 3 mL 3 mL Inhalation Resp q 1 hour PRN Ramez Mcghee MD 3 mL a t 09/30/17 1014 fluticasone-vilanterol (BREO ELLIPTA) 200-25 mcg/dose inhaler 1 Puff 1 Puff Inhalation Resp Daily Ramez Mcghee MD 1 Puff at 09/30/17 0839 rivaroxaban (XARELTO) tablet 20 mg 20 mg Oral Daily SUPPER Lorri Mcghee MD gabapentin enacarbil (HORIZANT) SR 24 hour tablet 1,200 mg 1,200 mg Oral Da brenna Ramez Mcghee MD timolol (TIMOPTIC) 0.5 % ophthalmic solution 1 Drop 1 Drop Left Eye BID Mar Ramez Pineda MD 1 Drop at 09/30/17 0839 pantoprazole (PROTONIX) tablet 40 mg 40 mg Oral AC Daily Breakfast Ramez Mcghee MD 40 mg at 09/30/17 0651 DULoxetine (CYMBALTA) capsule 60 mg 60 mg Oral BID Ramez Mcghee MD 60 mg at 09/30/17 0838 levothyroxine (SYNTHROID) tablet 75 mcg 75 mcg Oral Daily EARLY Ramez Powell MD 75 mcg at 09/30/17 0617 acetaminophen (TYLENOL) tablet 650 mg 650 mg Oral q 6 hour PRN Ramez Watson MD naloxone (NARCAN) 0.4 mg/mL injection 0.1 mg 0.1 mg IV See Admin Notes Ramez Kam MD nitroglycerin (NITROSTAT) tablet 0.4 mg 0.4 mg Sublingual q 5 min PRN Ramez Barillas MD clopidogrel (PLAVIX) tablet 75 mg 75 mg Oral Daily Ramez Mcghee MD atorvastatin (LIPITOR) tablet 80 mg 80 mg Oral Daily BEDTIME Ramez Mcghee MD 80 mg at 09/29/172120 hydrALAZINE (APRESOLINE) 20 mg/mL injection 10 mg 10 mg IV q 6 hour PRN Mar Ramez Pineda MD morphine (ROXANOL) oral concentrate 10 mg 10 mg Oral q 6 hour Ramez Mcghee MD 10 mg at 09/30/17 0617 [COMPLETED] methylPREDNISolone sodium succinate PF (SOLU-Medrol PF) injectio n 125 mg 125 mg IV ONCE Ramez Mcghee MD 125 mg at 09/29/17 1744 sodium chloride flush injection 10 mL 10 mL IV q 12 hour Joel Mcghee MD 10 mL at 09/30/17 0900 sodium chloride flush injection 5 mL 5 mL IV See Admin Notes Ramez Mcghee MD 5 mL at 09/30/17 0837 sodium chloride 0.9 % 250 mL flush bag 25 mL 25 mL IV See Admin Notes Ramez Barillas MD dextrose 5 % in water 250 mL flush bag 25 mL 25 mL IV See Admin Notes Ramez Barillas MD [COMPLETED] sodium chloride 0.9% bolus solution 100 mL 100 mL IV ONCE Jf Mendez MD 6,000 mL/hr at 09/29/171914 100 mL at 09/29/171914 [COMPLETED] iopamidol (ISOVUE-370) 76 % injection 100 mL 100 mL IV Intra-Pr oc Once Jf Menezes MD 58 mL at 09/29/171915 [COMPLETED] alteplase (CATHFLO ACTIVASE) 2 mg injection 2 mg 2 mg Dwell ONC E Ramez Mcghee MD 2 mg at 09/29/172208 morphine 4 mg/mL injection 3 mg 3 mg IV q 4 hour PRN Ramez Mcghee MD 3 mg at 09/30/17 0836 [DISCONTINUED] morphine (MS IR) tablet 15 mg 15 mg Oral q 4 hour PRN Ramez Carolina MD [DISCONTINUED] HYDROmorphone (DILAUDID) 2 mg/mL injection 0.3 mg 0.3 mg IV q 4 hour PRN Ramez Mcghee MD 0.3 mg at 09/29/172000 Allergies Allergen Reactions Adhesive Tape-Silicones Rash Aspirin Unknown Codeine Unknown Compazine [Prochlorperazine Edisylate] Unknown Imitrex [Sumatriptan Succinate] Unknown Inapsine [Droperidol] Unknown Reglan [Metoclopramide] Anaphylaxis Minal-30 Unknown Toradol [Ketorolac] Unknown Family History Problem Relation Age of Onset [...] Social History Narrative No narrative on file REVIEW OF SYSTEMS Review of Systems Constitutional: Positive for activity change and appetite change. Negative for f ever. HENT: Negative. Eyes: Negative. Respiratory: Positive for shortness of breath. Cardiovascular: Positive for chest pain. Gastrointestinal: Positive for abdominal pain. Endocrine: Negative. Genitourinary: Negative. Musculoskeletal: Positive for back pain. Allergic/Immunologic: Negative. Neurological: Negative. Hematological: Negative. Psychiatric/Behavioral: Negative. Objective PHYSICAL EXAM Last Vitals: BP (!) 154/77 | Pulse 86 | Temp 98.4 F (36.9 C) | Resp 16 | Ht 5' 7" (1.702 m) | Wt 64.4 kg (141 lb 15.6 oz) | SpO2 98% | ? No | BMI 22.24 kg/m Physical Exam Assessment ASSESSMENT/PLAN: Principal Problem: Chest pain Active Problems: Tobacco use Chronic pain syndrome Overview: With narcotic dependence Narcotic dependence H/O small bowel obstruction Overview: Multiple times, requiring multiple surgeries with long-term TPN Other sleep apnea Overview: Wears 8 liters via ventimask with sleep. Acquired hypothyroidism Lupus anticoagulant with hypercoagulable state Patient continues to smoke even though with her medical problems, I will take to the OR and try to obtain some kind of acess, at this time concern that will not be able to. Will try to place IV in neck with wire and controlled environment so she can have testing that is ordered. Appears to have clot around the port c atheter and will obtain xray to see if fractured. Discussed this with patient a nd since on plavix and xarelto high risk for bleeding if artery stick. The risks , benefits and alternatives of surgery were discussed and , included pain, blee ding, infection, VT, PE/DVT, stroke, failure of port . Patient verbalized unders tanding and all questions were answered to patient satisfaction documented in this encounter OR Notes * Operative Report - Emigdio Argueta MD - 10/03/2017 8:27 PM CDT NAME: Sophia Hawkins : 1965 MRN; [id number] CSN: [id number] ADMISSION DATE: 09/29/2017 OPERATIVE REPORT DATE: 10/03/2017 SURGEON: Surgeon(s) and Role: * Emigdio Argueta MD - Primary PRE-OP DIAGNOSIS: Poor venous access with a nonfunctioning left femoral port POST-OP DIAGNOSIS: SAME PROCEDURE: #1 removal of left groin nonfunctioning port #2 placement of a left from oral PowerPort FINDINGS: See report assistant manager bilingual: Anjali Goss PA-C COMPLICATIONS: None Procedure(s) and Anesthesia Type: * CATHETER VENOUS ACCESS REMOVAL - General * CATHETER VENOUS ACCESS PLACEMENT - General Additional CPT Codes: *No additional CPT codes listed in log* Procedure Start: 1632 Procedure End: 174 ESTIMATED BLOOD LOSS: 25 mL FLUIDS: See record SPECIMENS: * No specimens in log * IMPLANTS: Implant Name Type Inv. Item Serial No. Ammonium Nitrate Crystallizer Lot No. LRB No. Used Action PORT PWRPRT 9.6FR ATTACHABL [id number] - [id number] Port PORT PWRPRT 9.6FR ATTACHAB L [id number] [employer] [id number] Left 1 Implanted INDICATIONS FOR OPERATION: Patient is a 52-year-old female with lupus that gets weekly IV treatments has severe venous disease with unable to have access and cu rrently has a nonfunctioning left groin port that will not flush or withdraw PROCEDURE IN DETAIL: Patient was taken operating room placed supine on operating table after general LMA anesthesia patient was prepped and draped in the usual sterile fashion. Fluoroscopy review reveals that the port is kinked right at th e level of the port. At this time skin incision was made in the old scar to per manent appearing braided sutures were removed with the port out to the wound. O nce this was straightened out it withdrew and flushed. The problem is discounte d port we did not have on hand that could not repair at the kink and placed back into the groin. At this time remove the port and passed a wire through the por t but the port has a cap on the end of the catheter and wire was able to be pass ed from the side hole of the catheter. Attempted to pull the catheter over the wire was very adherent and very difficult to pull the catheter fractured multipl e times and concern was losing the catheter. At this time made a decision to do a separate stick and pass a wire to make sure to have access. The femoral vein is not collapsible in this area due to the fact that patient has 2 stents to go up into the inferior vena cava with IVC filters. At this time I was able to re move the catheter intact. Stick I use was through the stent due to the fact radha t could not gain access below where the stents were down into the thigh. I was able to pass the peel-away sheath through the stent and into the iliac vein. Tr y to use an 035 Glidewire but still could not pass any wires through the end of the stent up into the IVC they continue to curl in the IVC at this time I really did not have any other option for placement so I put the catheter through the p eel-away sheath about 15 cm up into the iliac vein is as far as I could advance it. At this time a place the port on the end of the catheter and placed it into the subcutaneous pocket and anchored to it to the subcutaneous tissues with 3-0 Polysorb. It withdrew and flushed with saline without difficulty and packed wi th 100 U/mL of heparin 3 cc worth. At this time pocket was irrigated dermal lay er closed with interrupted 3-0 Polysorb skin with 4-0 subcuticular Biosyn by my sales and marketing assistant and then skin glue for dressing patient was extubated and sent to [facility] room. Emigdio Argueta MD * Ying-OP - Judie Metzger RN - 10/03/2017 1:20 PM CDT Gerald Gómez Pre-op Verification Contacts- RN 1. ____Heather RN 2. CN 3. Patient underwriting support specialist time/date ____1529 (subject to change, pre-op meek l notify with scheduling changes) Pre-Op Orders __x___ Yes ____ No (If No, call Physician and obtain order s for consent, antibiotic) Proper consents obtained _x___ Yes ____ No (Correct Procedure, Anesthesia, Bloo d, Refusal of Blood Products) H&P __x__ Yes ____ No Anesthesia seen pt? Was anesthesia protocol followed? NPO since __midnight Alert/Oriented __x__ Yes ____ No (If no, next of kin, guardian or DPOA present ?) Vitals stable? __x__ Yes ____ No On O2? __x__ Yes ____ L/Min _2___ No IV patent? _y___ Size _22g___Site _Lt upper arm__ Fluids LR Pending Labs? EKG? CXR? HCG? MRSA swab? Beta Rod given if indicated? na Antibiotic? Routine (Send any routine antibiotics with krissy ent if due during surgical time) Intra-operative (Pre-op/OR personnel will obtain) Surgical Preps performed? Antibacterial Soap Chlorhexidi ne Hair Clipped Bactroban Nasal Ointment __ Other Undergarments/Dentures/Partials/Jewelry/Glasses/Contacts/Hearing Aids Removed? Does patient need bowel prep? If no trivedi present, toileting performed before pickup time Send SCD garment with patient Complete preop checklist _x___ Yes ____ No Nasal swabs documented in this encounter Miscellaneous Notes * Care Plan - Tommie Finley RN - 10/04/2017 5:25 AM CDT Pt calls out of pain medications frequently. She states that her pain is uncontr olled since her surgery however she is asleep when nursing staff checks on her. Pt is agitated at times about her pain medication. Pt able to sleep much of the night. * Care Plan - Milli Kim RCP - 10/03/2017 10:42 AM CDT Problem: Respiratory Goal: Achieve optimal respiratory function by discharge and/or maintain baseline function Outcome: Progressing 10/03/17 1040 10/03/17 1041 Respiratory Care Plan Respiratory Care Plan Problems -- Bronchospasm, potential or actual Respiratory Interventions -- Supplemental oxygen;Cough and deep breathing encou raged;Effective breathing techniques encouraged Aerosol Therapy Neb Tx Status given -- * Care Plan - Facundo Medrano RN - 10/03/2017 6:26 AM CDT Pt rested at times during the night. Pt has continuous complaints of pain with m inor relief by pain medications. VSS. Will continue to monitor. * Care Plan - Kayce Child RCP - 10/03/2017 1:42 AM CDT Problem: Respiratory Goal: Achieve optimal respiratory function by discharge and/or maintain baseline function Outcome: Progressing 10/03/17 0141 Respiratory Care Plan Respiratory Care Plan Problems Ventilation/oxygenation, impaired Respiratory Interventions Monitor for level of consciousness change;Non-Invasive ventilation * Care Plan - Melanie Cisse RN - 10/02/2017 5:59 PM CDT INTERDIS PW: CHEST PAIN Pathway Day 2 Hemodynamics: Patient able to maintain SBP greater than 90 and less than 1 60 mmHg, HR greater than 50 and less than 110/min, Respirations greater than 10/ min and less than 29/min, O2 sat greater than 90%. Not Met BLOOD PRESSURE GREATER THAN GOAL - 135/67, 189/91, 173/82 (treated w/IV hy dralazine), 96/51 INTERDIS PW: HYPERGLYCEMIA, ADULT Pathway Day 1 Metabolic: Maintain glucose between 70-180 mg/dL when receiving subcutaneo us insulin and between 110-160 mg/dL when receiving IV insulin. Not Met SERUM GLUCOSE GREATER THAN GOAL - 189, 222 Pain, Potential/Actual Verbalizes/displays acceptable comfort level or baseline comfort level Varia nce Patient continues to complain of R groin and R leg pain. PO pain meds given when due and PRN pain meds given when patient requests it. BP normal this morning (1 35/67), however this afternoon it was 189/91, 173/82 (treated w/IV hydralazine). Evening BP 96/51. Will continue to monitor and to treat her pain. * Care Plan - Vanesa Smith RCP - 10/02/2017 1:29 PM CDT Problem: Respiratory Goal: Achieve optimal respiratory function by discharge and/or maintain baseline function 10/02/17 1315 10/02/17 1321 Respiratory Care Plan Respiratory Care Plan Problems -- Dysfunctional breathing pattern Respiratory Interventions -- Effective breathing techniques encouraged Aerosol Therapy Neb Tx Status given -- * Care Plan - Facundo Medrano RN - 10/02/2017 6:09 AM CDT Pt rested at times during the night. Pt has continuous complaints of pain with m inor relief by pain medications. VSS Will continue to monitor. * Care Plan - Milli Bell RCP - 10/02/2017 2:07 AM CDT Problem: Respiratory Goal: Achieve optimal respiratory function by discharge and/or maintain baseline function Outcome: Progressing 10/02/17 0207 Respiratory Care Plan Respiratory Care Plan Problems Bronchospasm, potential or actual;Ventilation/oxy genation, impaired Respiratory Interventions Supplemental oxygen;Effective breathing techniques enc ouraged;Cough and deep breathing encouraged Aerosol Therapy Neb Tx Status given * Care Plan - Melanie Cisse RN - 10/01/2017 6:31 PM CDT INTERDIS PW: CHEST PAIN Pathway Day 1 Symptom Management: Patient reports improvement in symptoms since arrival. Not Met PATIENT IS CURRENTLY IN THIS PHASE OF CARE - continues to c/o R leg and gr oin pain Pain, Potential/Actual Verbalizes/displays acceptable comfort level or baseline comfort level Varia nce Patient continues to c/o right leg and groin pain. Treated with IV morphine, PO Roxanol, and robaxin. She states pain is better, however not completely gone. VS S * Care Plan - Edgard Mir RCP - 10/01/2017 5:59 PM CDT Problem: Respiratory Goal: Achieve optimal respiratory function by discharge and/or maintain baseline function Outcome: Progressing 10/01/17 1755 Aerosol Therapy Neb Tx Status given Respiratory Care Plan Respiratory Care Plan Problems Bronchospasm, potential or actual Respiratory Interventions Effective breathing techniques encouraged;Cough and de ep breathing encouraged Sophia Hawkins tolerating and benefiting well from breathing treatments at this time. * Care Plan - Indiana Rai RN - 10/01/2017 1:05 PM CDT Problem: Discharge Planning Goal: Identify discharge needs upon admission and through discharge Outcome: Progressing Initial Discharge Planning Assessment completed. Care Management visited with patient, and discussed Care Management role and dis charge planning. Prior to admission, patient's functional level was independent . 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 Next of kin/contact verified as Francesca Rodgers (sister), contact number PCP verified as Jose Corona. Patient's insurance verified as Medicare. Patient has prescription coverage: yes Patient's [facility] in [facility] Equipment in home of: cane, home oxygen, baseline 2l/nc in the day as needed, an d 8L at night through her triology machine, has no portable tanks, supplied by [facility]. Discussed discharge goals and possible discharge needs. Transportation on discharge son or family Comments: Patient denies any current needs. She has HH through [facility] and if she needs therapy, she would want it through them. She wants to resume services with [facility] on discharge, contact and send resumption order, Allison at [phone] Care Management will continue to follow and assist as needed. Indiana Rai RN, Care Management, [phone] * Care Plan - Facundo Medrano RN - 10/01/2017 6:00 AM CDT Pain, Potential/Actual Verbalizes/displays acceptable comfort level or baseline comfort level Varia nce Pt rested periodically during the night. Pt has continuous complaints of pain wi th temporary relief by pain medications. VSS Will continue to monitor. * Care Plan - Debbie Wise RN - 09/30/2017 5:36 PM CDT Pain, Potential/Actual Verbalizes/displays acceptable comfort level or baseline comfort level Varia nce Patient has only gotten short periods of relief from pain medications. Notified Dr. Mccormack of issue of gabapentin being SR, without a home supply. Doctor will a djust medication. * Care Plan - Hillary Hwang RN - 09/29/2017 6:34 PM CDT Patient's pain been controlled by prn pain medication this shift. IV remains pat ent this shift. Patient progressing toward pathways this shift. Will continue to monitor. documented in this encounter Plan of Treatment Not on filedocumented as of this encounter Procedures Comments Procedure Name Priority Date/Time Associated Diag nosis TELEMETRY REPORT 10/06/2017 10:56 AM CDT POC GLUCOSE Routine 10/04/2017 12:03 PM CDT POC GLUCOSE Routine 10/04/2017 6:38 AM CDT POC GLUCOSE Routine 10/03/2017 11:16 PM CDT POC GLUCOSE Routine 10/03/2017 7:36 PM CDT XR FLUORO GREATER THAN 1 Routine 10/03/2017 HOUR 5:57 PM CDT CATHETER VENOUS ACCESS 10/03/2017 Chest pain, un specified PLACEMENT 3:57 PM CDT type CATHETER VENOUS ACCESS 10/03/2017 Chest pain, un specified REMOVAL 3:57 PM CDT type POC GLUCOSE Routine 10/03/2017 2:22 PM CDT POC GLUCOSE Routine 10/03/2017 11:55 AM CDT POC GLUCOSE Routine 10/03/2017 8:02 AM CDT POC GLUCOSE Routine 10/02/2017 8:52 PM CDT POC GLUCOSE Routine 10/02/2017 5:38 PM CDT POC GLUCOSE Routine 10/02/2017 12:26 PM CDT POC GLUCOSE Routine 10/02/2017 8:30 AM CDT CBC WITH DIFFERENTIAL Routine 10/02/2017 3:52 AM CDT COMPREHENSIVE METABOLIC Routine 10/02/2017 PANEL 3:52 AM CDT POC GLUCOSE Routine 10/01/2017 7:30 PM CDT US VENOUS DOPPLER LEG Routine 09/30/2017 BILATERAL 4:29 PM CDT XR ABDOMEN 1 VW Routine 09/30/2017 3:55 PM CDT XR CHEST PA OR AP 1 VW Routine 09/30/2017 3:52 PM CDT NM MYOCARD PERF IMAG Routine 09/30/2017 SPECT MULT 2:55 PM CDT NM PHARMACOLOGICAL STRESS Routine 09/30/2017 TEST 1:59 PM CDT EXTRA TUBE (GREEN) Routine 09/30/2017 3:37 AM CDT EXTRA TUBE (LAV) Routine 09/30/2017 3:37 AM CDT EXTRA TUBE Routine 09/30/2017 3:37 AM CDT LIPID RFLX Routine 09/30/2017 3:37 AM CDT CBC WITH DIFFERENTIAL Routine 09/30/2017 3:37 AM CDT COMPREHENSIVE METABOLIC Routine 09/30/2017 PANEL 3:37 AM CDT TROPONIN Routine 09/29/2017 11:35 PM CDT CTA CHEST W CONTRAST Routine 09/29/2017 7:11 PM CDT TSH REFLEXIVE Routine 09/29/2017 5:47 PM CDT CBC WITH DIFFERENTIAL Routine 09/29/2017 5:47 PM CDT SEDIMENTATION RATE Routine 09/29/2017 5:47 PM CDT PROTIME-INR Routine 09/29/2017 5:47 PM CDT D-DIMER Routine 09/29/2017 5:47 PM CDT TROPONIN Routine 09/29/2017 5:47 PM CDT T4 FREE Routine 09/29/2017 5:47 PM CDT BRAIN NATRIURETIC Routine 09/29/2017 PEPTIDE, BNP OR PROBNP 5:47 PM CDT LIPASE Routine 09/29/2017 5:47 PM CDT COMPREHENSIVE METABOLIC Routine 09/29/2017 PANEL 5:47 PM CDT XR CHEST PA OR AP 1 VW Routine 09/29/2017 5:25 PM CDT OH ELECTROCARDIOGRAM, Routine 09/29/2017 COMPLETE 3:35 PM CDT documented in this encounter Results * TELEMETRY REPORT (10/06/2017 10:56 AM CDT) Narrative Performed At This result has an attachment that is n ot available. * POC GLUCOSE (10/04/2017 12:03 PM CDT) POC GLUCOSE 179 (H) 70 - 105 mg/dL [facility] [place] [employer] NAME Rebecca Guzman [facility] [place] Specimen Whole blood sample (specimen) Performing Organization Address [facility] one [facility] LABORATORY SERVICES CLIA # [id number] [place] [address] - [place] 100 [facility] CLIA # [id number] [place], [place] [address] - [place] 100 [facility] * POC GLUCOSE (10/04/2017 6:38 AM CDT) POC GLUCOSE 159 (H) 70 - 105 mg/dL [facility] [place] [employer] NAME tommie finley [facility] [place] Specimen Whole blood sample (specimen) Performing Organization Address [facility] one [facility] LABORATORY SERVICES CLIA # [id number] [place] [address] - [place] 100 [facility] CLIA # [id number] [place], [place] [address] - [place] [address] * POC GLUCOSE (10/03/2017 11:16 PM CDT) POC GLUCOSE 207 (H) 70 - 105 mg/dL [facility] [place] [employer] NAME tommie finley [facility] [place] Specimen Whole blood sample (specimen) Performing Organization Address [facility] [facility] one [facility] [employer] SERVICES CLIA # [id number] [place] [address] - [place] 100 [facility] LABOR[facility]ORY SERVICES CLIA # [id number] [place], [place] [address] - [place] [address] * POC GLUCOSE (10/03/2017 7:36 PM CDT) POC GLUCOSE 102 70 - 105 mg/dL [facility] [place] [employer] [facility] [place] Specimen Whole blood sample (specimen) Performing Organization Address [facility] [facility] one [facility]ORATORY SERVICES CLIA # [id number] [place] [address] - [place] 100 [facility] CLIA # [id number] [place], [place] [address] - [place] [address] * XR FLUORO GREATER THAN 1 HOUR (10/03/2017 5:57 PM CDT) Specimen Narrative Performed At Order information only. Exam was auto -finalized. * POC GLUCOSE (10/03/2017 2:22 PM CDT) POC GLUCOSE 87 70 - 105 mg/dL [facility] [place] [employer] NAME melanie cisse [facility] [place] Specimen Whole blood sample (specimen) Performing Organization Address [facility] [facility] one [facility]ATORY SERVICES CLIA # [id number] [place] [address] - [place] 100 [facility] SERVICES CLIA # [id number] [place], [place] [address] - [place] [address] * POC GLUCOSE (10/03/2017 11:55 AM CDT) POC GLUCOSE 146 (H) 70 - 105 mg/dL [facility] [place] [employer] NAME deangelo choi [facility] [place] Specimen Whole blood sample (specimen) Performing Organization Address [facility] LABORATORY SERVICES CLIA # [id number] [place] [address] - [place] 100 [facility] LABORATORY SERVICES CLIA # [id number] [place], [place] [address] - [place] [address] [facility] [employer] * POC GLUCOSE (10/03/2017 8:02 AM CDT) POC GLUCOSE 155 (H) 70 - 105 mg/dL [facility] [place] [employer] NAME deangelo choi [facility] [place] Specimen Whole blood sample (specimen) Performing Organization Address [facility] LABORATORY SERVICES CLIA # [id number] [place] [address] - [place] 100 [facility] SERVICES CLIA # [id number] [place] [address] - [place] [address] [facility] [employer] * POC GLUCOSE (10/02/2017 8:52 PM CDT) POC GLUCOSE 182 (H) 70 - 105 mg/dL [facility] [place] [employer] NAME ike jules [facility] [facility] [place] Specimen Whole blood sample (specimen) Performing Organization Address [facility] one [facility] [employer] [facility] CLIA # [id number] [place] [address] - [place] 100 [facility] LAB[facility] SERVICES CLIA # [id number] [place], [place] [address] - [place] [address] * POC GLUCOSE (10/02/2017 5:38 PM CDT) POC GLUCOSE 222 (H) 70 - 105 mg/dL [facility] [place] [employer] NAME keithike borja [facility] [place] Specimen Whole blood sample (specimen) Performing Organization Address [facility] one [facility] LABORATORY SERVICES CLIA # [id number] [place] [address] - [place] 100 [facility] LAB[facility]ORY SERVICES CLIA # [id number] [place], [place] [address] - [place] 100 [facility] [employer] * POC GLUCOSE (10/02/2017 12:26 PM CDT) POC GLUCOSE 123 (H) 70 - 105 mg/dL [facility] [place] [employer] NAME ike parker [facility] [place] Specimen Whole blood sample (specimen) Performing Organization Address [facility] one [facility] LABORATORY SERVICES CLIA # [id number] [place] [address] - [place] 100 [facility] [facility] LABORATORY SERVICES CLIA # [id number] [place] [address] - [place] 100 [facility] * POC GLUCOSE (10/02/2017 8:30 AM CDT) POC GLUCOSE 189 (H) 70 - 105 mg/dL [facility] LABORATORY SERVICES - [place] FOAM RUBBER MOLDER NAME ike parker [facility] Voddler SERVICES - [place] Specimen Whole blood sample (specimen) Performing Organization Address [facility] one [facility] LABORATORY SERVICES CLIA # [id number] [place] [address] - [place] 100 [facility] LABORATORY SERVICES CLIA # [id number] [place], [place] [address] - [place] 100 [facility] [employer] * COMPREHENSIVE METABOLIC PANEL (10/02/2017 3:52 AM CDT) SODIUM 140 136 - 145 mmol/L [facility] LABORATORY SERVICES - [place] POTASSIUM 4.2 3.5 - 5.1 mmol/L [facility] LABORATORY SERVICES - [place] CHLORIDE 100 98 - 107 mmol/L [facility] LABORATORY SERVICES - [place] CO2 30 (H) 22 - 29 mmol/L [facility] LABORATORY SERVICES - [place] CALCIUM 9.0 8.6 - 10.0 mg/dL [facility] LABORATORY SERVICES - [place] BUN 21 (H) 6 - 20 mg/dL [facility] - [place] CREATININE 0.69 0.51 - 0.95 mg/dL [facility] - [place] GLUCOSE 217 (H) 74 - 105 mg/dL [facility] - [place] TOTAL PROTEIN 6.1 (L) 6.4 - 8.3 g/dL [facility] - [place] ALBUMIN 3.6 (L) 4.0 - 4.9 g/dL [facility] - [place] BILIRUBIN TOTAL 0.4 <=1.2 mg/dL [facility] - [place] ALKALINE 96 35 - 104 U/L [facility] PHOSPHATASE LABORATORY SERVICES - [place] AST 11 0 - 32 U/L [facility] - [place] ALT 12 0 - 33 U/L [facility] - [place] GFR >60 >=60 mL/min/1.73 sq [facility] Comment: meter LABORATORY eGFR has not been validated SERVICES - for use in the elderly (> 70 [place] years of age), women, patients with serious co-morbid conditions, or persons with extremes of body size or muscle mass and should also be interpreted with caution in patients with acute kidney failure, dialysis dependent patients, patients reporting exceptional dietary intake (e.g. vegetarian diet, high protein diets, creatine supplementation), and patients with severe liver disease. Based on National Kidney Disease Education Program If patient is , please refer to the GFR result. GFR, >60 >=60 mL/min/1.73 sq [facility] MOLDOVAN meter LABORATORY SERVICES - [place] ANION GAP 10 4 - 13 mmol/L [facility] [place] Specimen Blood Performing Organization Address City/State/Zipcode Ph one Number [facility] LABORATORY SERVICES CLIA # [id number] [place] [address] - [place] [address] [facility] [address] [facility] LABORATORY SERVICES CLIA # [id number] [place], [place] [address] - [place] 100 [facility] * CBC WITH DIFFERENTIAL (10/02/2017 3:52 AM CDT) WBC 8.3 4.0 - 11.0 K/uL [facility] - [place] RBC 3.76 (L) 4.20 - 5.40 M/uL [facility] - [place] HEMOGLOBIN 12.6 12.5 - 16.0 g/dL [facility] [place] HEMATOCRIT 38.7 37.0 - 47.0 % [facility] [place] MCV 102.9 (H) 78.0 - 100.[address] [facility] [place] MCH 33.5 27.0 - 34.[address] [facility] [place] MCHC 32.6 31.0 - 37.0 g/dL [facility] [place] RDW 13.2 12.0 - 15.0 % [facility] [place] RDW-STDEV 49.3 (H) 37.1 - 48.7 fL [facility] LABORATORY SERVICES - [place] PLATELETS 137 (L) 150 - 450 K/uL [facility] LABORATORY SERVICES - [place] MPV 10.5 9.3 - 12.[address] [facility] [place] NEUTROPHILS 63 31 - 76 % [facility] - [place] LYMPHOCYTES 29 24 - 44 % [facility] - [place] MONOCYTES 6 2 - 11 % [facility] - [place] EOSINOPHILS 1 0 - 6 % [facility] - [place] BASOPHILS 0 0 - 2 % [facility] - [place] IMMATURE 1 0 - 2 % [facility] GRANULOCY[facility] LABORATORY SERVICES - [place] NEUTROPHIL 5.28 1.80 - 7.70 K/uL [facility] LAB[facility]ATORY SERVICES - [place] LYMPHOCYTE 2.37 1.00 - 4.80 K/uL [facility] - [place] MONOCYTE 0.48 0.10 - 1.30 K/uL [facility] SERVICES - [place] EOSINOPHIL 0.08 0.00 - 0.70 K/uL [facility] SERVICES - [place] BASOPHILS 0.03 0.00 - 0.20 K/uL [facility] SERVICES - [place] IMMATURE 0.08 0.00 - 0.10 K/uL [facility] LABORATORY ABSOLUTE SERVICES - [place] Specimen Blood Performing Organization Address City/State/Zipcode Ph one Number [facility] LABORATORY SERVICES CLIA # [id number] [place] [address] - [place] 100 [facility] LABORATORY SERVICES CLIA # [id number] [place] [address] - [place] [address] [facility] [address] * POC GLUCOSE (10/01/2017 7:30 PM CDT) POC GLUCOSE 234 (H) 70 - 105 mg/dL [facility] LABORATORY SERVICES - [place] FOAM RUBBER MOLDER NAME facundo medrano [facility] LABORATORY SERVICES - [place] Specimen Whole blood sample (specimen) Performing Organization Address City/State/Zipcode Ph one Number [facility] LABORATORY SERVICES CLIA # [id number] [place] [address] - [place] 100 [facility] LABORATORY SERVICES CLIA # [id number] [place] [address] - [place] 100 [facility] * US VENOUS DOPPLER LEG BILATERAL (09/30/2017 4:29 PM CDT) Specimen Narrative Performed At This result has an attachment that is n ot available. [x] [place] [] Sandra da [] [place] [] Cecilia [] [place] [] [place] Venous duplex examination using B-mode, color flow and spectral doppler Prior Exam: 0 Prior Surgeries: 0 Flow 1. Phasic, spontaneous w/response 2. Flow present w/augmentation 3. Continuous flow 4. No flow visualized 5. Unable to visualize vein 6. Reduced flow Image A. Compressible lumen B. Non compressible lumen C. Partially compressible lumen D. Unable to visualize vein Reflex (+) or (-) + = Present - = Absent Right Flow Image Reflux Deep Venous System External Iliac Commo n Femoral 1 A - Deep Femoral 2 A - Superficial Femoral 6 C - Popliteal 2 A - Anterior Tibial 2 A - Posterior Tibial 2 A - Peroneal 6 C - Superficial Venous System Proximal Saph enous 1 A - Distal Saphenous 2 A - Left Flow Image Reflux Deep Venous System External Iliac Commo n Femoral 1 A - Deep Femoral 1 A - Superficial Femoral 1 A - Popliteal 1 A - Anterior Tibial 2 A - Posterior Tibial 2 A - Peroneal 2 A - Superficial Venous System Proximal Saph enous 1 A - Distal Saphenous 2 A - Impression: Right: There is no evidence of acute deep or superficial venous thrombosis. Chronic deep venous thrombo sis is noted in the femoral and peroneal veins. Left: There is no evidence of deep or superficial venous thrombosis. Tech: TC Machine: 6 Image Quality: [x] Good [x] Fair [] Poor Reason: shadowing * XR ABDOMEN 1 VW (09/30/2017 3:55 PM CDT) Specimen Impressions Performed At IMPRESSION: INTERFACE SYSTEM Left femoral approach catheter appears intact. Narrative Performed At Supine abdomen radiograph 09/30/2017 3:55 PM INTERFAC E SYSTEM HISTORY: 52 years Female presents with evaluate catheter COMPARISON: 09/09/2010 FINDINGS: The evaluation for free intraperitoneal air is suboptimal secondary to supine technique. There is large coloni c fecal burden. Postsurgical changes in the abdomen. Vascular sten t in the left pelvis and groin. There is a left femoral approach cathet er. The catheter appears intact. The distal tip is not visualize d. There is an inferior vena cava filter. Procedure Note Interface, [facility] [place] Incoming Radiology Results - 09/30/2017 4:35 PM CDT Supine abdomen radiograph 09/30/2017 3:55 PM HISTORY: 52 years Female presents with evaluate catheter COMPARISON: 09/09/2010 FINDINGS: The evaluation for free intraperitoneal air is suboptimal secondary to supine technique. There is large colonic fecal burden. Postsurgical changes in the abdomen. Vascular stent in the left pelvis and groin. There is a left femoral approach catheter. The catheter appears intact. The distal tip is not visualized. There is an inferior vena cava filter. IMPRESSION: Left femoral approach catheter appears intact. Performing Organization Address City/State/Zipcode Ph one Number INTERFACE SYSTEM INTERFACE SYSTEM Refer to clinic/hospital department * XR CHEST PA OR AP 1 VW (09/30/2017 3:52 PM CDT) Specimen Narrative Performed At History: Line placement. INTERFACE SYSTEM AP upright chest: Comparison 09/29/2017. No visualized new supportive tube or catheter. Clinical correlation recommended. Small right pleural fluid collection unchanged. Cat heter projected over the region of the junction of the inferior vena ca va and right atrium unchanged, entering from femoral access. CONCLUSION: 1. No new supportive tube or catheter. Clinical correlation advised. 2. Small right pleural fluid collection unchanged. 3. Stable catheter with tip projected o emma the region of the junction of the inferior vena cava and right atr ium. Procedure Note [facility], [facility] [place] Incoming Radiology Results - 09/30/2017 4:30 PM CDT History: Line placement. AP upright chest: Comparison 09/29/2017. No visualized new supportive tube or catheter. Clinical correlation recommended. Small right pleural fluid collection unchanged. Catheter projected over the region of the junction of the inferior vena cava and right atrium unchanged, entering from femoral access. CONCLUSION: 1. No new supportive tube or catheter. C linical correlation advised. 2. Small right pleural fluid collection unchanged. 3. Stable catheter with tip projected ov er the region of the junction of the inferior vena cava and right atrium. Performing Organization Address City/State/Zipcode Ph one Number INTERFACE SYSTEM INTERFACE SYSTEM Refer to clinic/hospital department * NM MYOCARD PERF IMAG SPECT MULT (09/30/2017 2:55 PM CDT) EJECTION 67 50 - 65 percent INTERFACE FRACTION SYSTEM Specimen Impressions Performed At IMPRESSION: EF 67 %. INTERFACE SYSTEM No infarct or ischemic segmental patter n. Normal contractility/wall motion. No left ventricular cavity enlargemen t. Cardiolite study otherwise within remedios l limits (WNL). Contact interpreting radiologist # for physician inquiry/clinical information/consultation ([facility] [place], [place]): OFFICE: [phone] / secondary back up #s: [phone] (lead animal care technician office). Narrative Performed At Nuclear Medicine stress and rest SPECT 99M technetium tetrofosmin INTERFACE SYSTEM Myoview study. 10 / 30 mCi used for rest study and mCi for stress study respectively. Lexiscan pharmacologic stress. HISTORY: 52 years Female with Lizz[address] Pain . Xray correlation is currently available . FINDINGS: ejection fraction = 67%. Ending diastolic volume = 74 mls. Ending systolic volume = 24 mls. Stroke volume = 50 mls. TID = 1.3. Less than 1.2 is within norm al limits. Stress severity segment index measureme nts = : 3. Rest severity segment index measurement s = : 0. Differential severity segment index red istribution measurements = : 3. No infarctive nor ischemic pattern. No LV endocavity enlargement. TID WNL. Normal range ejection fraction (EF), an d contractility and wall motion within normal limits. Procedure Note Interface, [facility] Incoming Radiology Results - 09/30/2017 3:00 PM CDT Nuclear Medicine stress and rest SPECT 99M technetium tetrofosmin Myoview study. 10 / 30 mCi used for rest study and mC i for stress study respectively. Lexiscan pharmacologic stress. HISTORY: 52 years Female with Chest Pain . Xray correlation is currently available. FINDINGS: ejection fraction = 67%. Ending diastolic volume = 74 mls. Ending systolic volume = 24 mls. Stroke volume = 50 mls. TID = 1.3. Less than 1.2 is within normal limits. Stress severity segment index measurements = : 3. Rest severity segment index measurements = : 0. Differential severity segment index redistribution measurements = : 3. No infarctive nor ischemic pattern. No LV endocavity enlargement. TID WNL. Normal range ejection fraction (EF), and contractility and wall motion within normal limits. IMPRESSION: EF 67 %. No infarct or ischemic segmental pattern. Normal contractility/wall motion. No left ventricular cavity enlargement. Cardiolite study otherwise within normal limits (WNL). Contact interpreting radiologist # for physician inquiry/clinical information/consultation ([place], [place]): OFFICE: [phone] / secondary back up #s: [phone] (lead animal care technician office). Performing Organization Address City/State/Zipcode Ph one Number INTERFACE SYSTEM INTERFACE SYSTEM Refer to clinic/hospital department * NM PHARMACOLOGICAL STRESS TEST (09/30/2017 1:59 PM CDT) Specimen Narrative Performed At [facility] Cardiology - [place], [place] CADIOLOGY STRESS REPORT Name: Sophia Hawkins : 1965 Sex: female Date: 09/30/2017 Referring Provider: Chaim Mcghee MD [address] [place] [phone] PCP: Jose Corona DO Instructor Trainer Canine Service: NONE Symptom Complaint/Indication: Chest p ain Ordering Physician: Jonelle Mcghee Family Physician: Jose Corona DO History/Indications: Chest Pain Intervention: Lexiscan 0.4mg IV over 10 seconds Baseline ECG: Normal sinus, RBBB Symptoms: Dyspnea, Headache, Nausea ECG changes: None Baseline blood pressure: 140/75 Response to intervention: Normal Heart rate response: Normal Supervising Provider: Elvin Nielson MD,FACC ,FSCAI,RPVI Performing Organization Address City/State/Zipcode Ph one Number [facility] [place] CLIA # [id number] [place] [address] CADIOLOGY 100 [facility] * COMPREHENSIVE METABOLIC PANEL (09/30/2017 3:37 AM CDT) [facility] SODIUM 141 136 - 145 mmol/L [facility] LABORATORY SERVICES - [place] POTASSIUM 4.8 3.5 - 5.1 mmol/L [facility] LABORATORY SERVICES - [place] CHLORIDE 100 98 - 107 mmol/L [employer] LABORATORY SERVICES - [place] CO2 27 22 - 29 mmol/L [facility] LABORATORY SERVICES - [place] CALCIUM 10.0 8.6 - 10.0 mg/dL [facility] LABORATORY SERVICES - [place] BUN 16 6 - 20 mg/dL [facility] LABORATORY SERVICES - [place] CREATININE 0.71 0.51 - 0.95 mg/dL [facility] - [place] GLUCOSE 393 (H) 74 - 105 mg/dL [facility] LABORATORY SERVICES - [place] TOTAL PROTEIN 6.8 6.4 - 8.3 g/dL [facility] LABORATORY SERVICES - [place] ALBUMIN 4.1 4.0 - 4.9 g/dL [facility] LABORATORY SERVICES - [place] BILIRUBIN TOTAL 0.3 <=1.2 mg/dL [facility] LABORATORY SERVICES - [place] ALKALINE 108 (H) 35 - 104 U/L [facility] PHOSPHATASE LABORATORY SERVICES - [place] AST 12 0 - 32 U/L [facility] LABORATORY SERVICES - [place] ALT 15 0 - 33 U/L [facility] LABORATORY SERVICES - [place] GFR >60 >=60 mL/min/1.73 sq [facility] Comment: meter LABORATORY eGFR has not been validated SERVICES - for use in the elderly (> 70 [place] years of age), women, patients with serious co-morbid conditions, or persons with extremes of body size or muscle mass and should also be interpreted with caution in patients with acute kidney failure, dialysis dependent patients, patients reporting exceptional dietary intake (e.g. vegetarian diet, high protein diets, creatine supplementation), and patients with severe liver disease. Based on National Kidney Disease Education Program If patient is , please refer to the GFR result. GFR, >60 >=60 mL/min/1.73 sq [facility] LABORATORY SERVICES - [place] ANION GAP 14 (H) 4 - 13 mmol/L [facility] LABORATORY SERVICES - [place] Specimen Blood Performing Organization Address City/State/Zipcode Ph one Number [facility] LABORATORY SERVICES CLIA # [id number] [place] [address] - [place] 100 [facility] LABORATORY SERVICES CLIA # [id number] [place] [address] - [place] 100 [facility] * CBC WITH DIFFERENTIAL (09/30/2017 3:37 AM CDT) [facility] WBC 9.7 4.0 - 11.0 K/uL [facility] LABORATORY SERVICES - [place] RBC 4.03 (L) 4.20 - 5.40 M/uL [facility] LABORATORY SERVICES - [place] HEMOGLOBIN 13.4 12.5 - 16.0 g/dL [facility] LABORATORY SERVICES - [place] HEMATOCRIT 40.0 37.0 - 47.0 % [facility] LABORATORY SERVICES - [place] MCV 99.3 78.0 - 100.0 fL [facility] LABORATORY SERVICES - [place] MCH 33.3 27.0 - 34.0 pg [facility] LABORATORY SERVICES - [place] MCHC 33.5 31.0 - 37.0 g/dL [facility] LABORATORY SERVICES - [place] RDW 13.0 12.0 - 15.0 % [facility] LABORATORY SERVICES - [place] RDW-STDEV 46.5 37.1 - 48.7 fL [facility] LABORATORY SERVICES - [place] PLATELETS 172 150 - 450 K/uL [facility] LABORATORY SERVICES - [place] MPV 10.4 9.3 - 12.[address] - [place] NEUTROPHILS 92 (H) 31 - 76 % [facility] LABORATORY SERVICES - [place] LYMPHOCYTES 5 (L) 24 - 44 % [facility] - [place] MONOCYTES 1 (L) 2 - 11 % [facility] - [place] EOSINOPHILS 0 0 - 6 % [facility] - [place] BASOPHILS 0 0 - 2 % [facility] - [place] IMMATURE 2 0 - 2 % [facility] LABORATORY SERVICES - [place] NEUTROPHIL 8.91 (H) 1.80 - 7.70 K/uL [facility] LABORATORY SERVICES - [place] LYMPHOCYTE 0.51 (L) 1.00 - 4.80 K/uL [facility] LAB[facility]AT[facility] SERVICES - [place] MONOCYTE 0.09 (L) 0.10 - 1.30 K/uL [facility] LABORAT[facility] SERVICES - [place] EOSINOPHIL 0.00 0.00 - 0.70 K/uL [facility] SERVICES - [place] BASOPHILS 0.02 0.00 - 0.20 K/uL [facility] LABORATORY SERVICES - [place] IMMATURE 0.18 (H) 0.00 - 0.10 K/uL [facility] LABORATORY ABSOLUTE SERVICES - [place] Specimen Blood Narrative Performed At Smear reviewed: Automated differential confirmed. [facility] LABORATORY SERVICES - [place] Performing Organization Address City[facility] Ph one [facility] LABORATORY SERVICES CLIA # [id number] [place] [address] - [place] 100 [facility] LABORATORY SERVICES CLIA # [id number] [place] [address] - [place] [address] [facility] [facility] [address] * EXTRA TUBE (LAV) (09/30/2017 3:37 AM CDT) Specimen Blood Performing Organization Address City[facility] Ph one Number [facility] LABORATORY SERVICES CLIA # [id number] [place] [address] - [place] [address] * EXTRA TUBE (GREEN) (09/30/2017 3:37 AM CDT) Specimen Blood Performing Organization Address [facility] Ph one Number [facility] LABORATORY SERVICES CLIA # [id number] [place] [address] - [place] [address] * LIPID RFLX (09/30/2017 3:37 AM CDT) CHOLESTEROL 242 (H) <200 mg/dL [facility] LABORATORY SERVICES - [place] TRIGLYCERIDE 85 <150 mg/dL [employer] LABORATORY SERVICES - [place] HDL 107 (H) 40 - 59 mg/dL [facility] LABORATORY SERVICES - [place] LDL CALCULATED 118 (H) <100 mg/dL [facility] LABORATORY SERVICES - [place] NON-HDL 135 (H) <130 mg/dL [facility] CHOLESTEROL LABORATORY SERVICES - [place] Specimen Blood Narrative Performed At TOTAL CHOLESTEROL mg/dL [facility] LABORATORY Desirable <200 SERVICES - [place] Borderline high 200-239 High >=240 TRIGLYCERIDES mg/dL Normal <150 Borderline high 150-199 High 200-499 Very high >=500 HDL CHOLESTEROL mg/dL Low <40 Normal 40-59 Desirable >=60 NON HDL CHOLESTEROL mg/dL Optimal <130 Near Optimal 130-159 Borderline High 160-189 Very High >=190 Calculated LDL mg/dL Optimal <100 Near Optimal 100-129 Borderline High 130-159 High 160-189 Very High >=190 ATPIII Guidelines Reference Ranges for Lipid Panels (NCEP/AMA) Performing Organization Address City/State/[facility] Ph one [facility] [employer] LABORATORY SERVICES CLIA # [id number] [place] [address] - [place] 100 [employer] LABORATORY SERVICES CLIA # [id number] [place], [place] [address] - [place] 100 [employer] * TROPONIN (09/29/2017 11:35 PM CDT) TROPONIN T <0.01 <0.01 ng/mL [facility] LABORATORY SERVICES - [place] Specimen Blood Narrative Performed At Testing methodologies for Troponin vary between labor atories. Because of this, [facility] LABORATORY values obtained with different assay methods or kits may be different, and SERVICES - [place] cannot be used interchangeably or in a continuum of care situation. Performing Organization Address City/State/[facility] Ph one Number [employer] LABORATORY SERVICES CLIA # [id number] [place] [address] - [place] 100 [employer] LABORATORY SERVICES CLIA # [id number] [place], [place] [address] - [place] [address] * CTA CHEST W CONTRAST (09/29/2017 7:11 PM CDT) Specimen Impressions Performed At IMPRESSION: INTERFACE SYSTEM Study limited by patient motion. Nega tive for definite CTA evidence of pulmonary embolism. Chronic pleural thickening at both lung apices. Interstitial prominence, some areas of which demonst rate a nodular configuration. 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 TECHNIQUE: Axial thoracic scans performed followin g IV administration 58 mL Isovue-370 contrast 3-dimensional reconstructions of the pu lmonary vasculature performed, permanently stored FINDINGS: Patient motion artifact limits interpre tation Negative for intraluminal filling defec t involving the visualized pulmonary arterial branches to suggest pulmonary embolism Negative for focal aneurysm, mural disr uption or intimal dissection involving the thoracic aorta There is mild pleural thickening at bot h lung apices, and interstitial prominence, perhaps reflecting chronic scarring. Some of these areas of interstitial thickening show a nodul ar configuration, measuring up to 1.1 x 0.7 cm cross section on the ri ght Negative for focal alveolar consolidati ve infiltrate Negative for significant pleural or per icardial effusion Negative for pathologically enlarged ly mph node within the thorax A vascular catheter courses through the inferior vena cava, its tip is seen near the junction of the RA and IV C Status post IVC filter placement Right 10th rib demonstrates a chronical ly ununited fracture deformity at its posterior aspect Procedure Note Interface, [facility] [place] [facility] Incoming Radiology Results - 09/29/2017 8:51 PM CDT Exam: CTA CHEST W CONTRAST Date/Time of Exam: 09/29/2017 7:11 PM Reason For Exam: SOB. TECHNIQUE: Axial thoracic scans performed following IV administration 58 mL Isovue-370 contrast 3-dimensional reconstructions of the pul monary vasculature performed, permanently stored FINDINGS: Patient motion artifact limits interpretation Negative for intraluminal filling defect involving the visualized pulmonary arterial branches to suggest pulmonary embolism Negative for focal aneurysm, mural disruption or intimal dissection involving the thoracic aorta There is mild pleural thickening at both lung apices, and interstitial prominence, perhaps reflecting chronic scarring. Some of these areas of interstitial thickening show a nodular configuration, measuring up to 1.1 x 0.7 cm cross section on the right Negative for focal alveolar consolidative infiltrate Negative for significant pleural or pericardial effusion Negative for pathologically enlarged lymph node within the thorax A vascular catheter courses through the inferior vena cava, its tip is seen near the junction of the RA and IVC Status post IVC filter placement Right 10th rib demonstrates a chronically ununited fracture deformity at its posterior aspect IMPRESSION: Study limited by patient motion. Negative for definite CTA evidence of pulmonary embolism. Chronic pleural thickening at both lung apices. Interstitial prominence, some areas of which demonstrate a nodular configuration. 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, with chronic nonunion Performing Organization Address [facility] Number INTERFACE SYSTEM INTERFACE SYSTEM Refer to clinic/hospital department * T4 FREE (09/29/2017 5:47 PM CDT) T4 FREE 1.27 0.93 - 1.70 ng/dL [facility] LAB[facility]ATORY [facility] - [place] Specimen Blood Performing Organization Address [facility] one Number [facility] LABORATORY SERVICES CLIA # [id number] [place] [address] - [place] [address] [facility] LABORATORY SERVICES CLIA # [id number] [place], [place] [address] - [place] 100 [facility] * COMPREHENSIVE METABOLIC PANEL (09/29/2017 5:47 PM CDT) SODIUM 137 136 - 145 mmol/L [facility] [place] POTASSIUM 4.2 3.5 - 5.1 mmol/L [facility] [place] CHLORIDE 95 (L) 98 - 107 mmol/L [facility] [place] CO2 29 22 - 29 mmol/L [facility] [place] CALCIUM 9.4 8.6 - 10.0 mg/dL [facility] [place] BUN 13 6 - 20 mg/dL [facility] [place] CREATININE 0.75 0.51 - 0.95 mg/dL [facility] [place] GLUCOSE 187 (H) 74 - 105 mg/dL [facility] [place] TOTAL PROTEIN 6.9 6.4 - 8.3 g/dL [facility] [place] ALBUMIN 4.0 4.0 - 4.9 g/dL [facility] [place] BILIRUBIN TOTAL 0.5 <=1.2 mg/dL [facility] [place] ALKALINE 92 35 - 104 U/L [facility] PHOSPHATASE LABORATORY SERVICES - [place] AST 11 0 - 32 U/L [facility] - [place] ALT 15 0 - 33 U/L [facility] [place] GFR >60 >=60 mL/min/1.73 sq [facility] Comment: meter LABORATORY eGFR has not been validated SERVICES - for use in the elderly (> 70 [place] years of age), women, patients with serious co-morbid conditions, or persons with extremes of body size or muscle mass and should also be interpreted with caution in patients with acute kidney failure, dialysis dependent patients, patients reporting exceptional dietary intake (e.g. vegetarian diet, high protein diets, creatine supplementation), and patients with severe liver disease. Based on National Kidney Disease Education Program If patient is , please refer to the GFR result. GFR, >60 >=60 mL/min/1.73 sq [facility] MOLD[place]AN meter LABORATORY SERVICES - [place] ANION GAP 13 4 - 13 mmol/L [facility] LAB[facility]ORY SERVICES - [place] Specimen Blood Performing Organization Address [facility] one [facility] LABORATORY SERVICES CLIA # [id number] [place] [address] - [place] 100 [facility] LABORATORY SERVICES CLIA # [id number] [place], [place] [address] - [place] 100 [facility] * PROTIME-INR (09/29/2017 5:47 PM CDT) PROTIME 12.7 11.8 - 14.6 [facility] - [place] INR 0.9 0.9 - 1.2 [facility]ORY [facility] - [place] Specimen Blood Narrative Performed At Therapeutic range: 2.0 - 3.5 [facility]ORY [facility] - [place] Performing Organization Address [facility] one Number [facility] LABORATORY SERVICES CLIA # [id number] [place] [address] - [place] 100 [facility] LABORATORY SERVICES CLIA # [id number] [place], [place] [address] - [place] 100 [facility] * SEDIMENTATION RATE (09/29/2017 5:47 PM CDT) Pathologist [facility] ESR 9 0 - 20 mm/Hr [facility] (SEDIMENTATION LABORATORY RATE) SERVICES - [place] Specimen Blood Performing Organization Address [facility] LABORATORY SERVICES CLIA # [id number] [place] [address] - [place] 100 [facility] LABORATORY SERVICES CLIA # [id number] [place] [address] - [place] [address] * D-DIMER (09/29/2017 5:47 PM CDT) [facility] D-DIMER QUANT 1.29 (HH) 0.00 - 0.46 ug/mL [facility] FEU LABORATORY SERVICES - [place] Specimen Blood Narrative Performed At Various clinical studies utilizing this method have shown that a result of < 0.5 [facility] LABORATORY mcg/ml FEU excludes deep vein thrombosis and pulmonar y embolism with high SERVICES - [place] sensitivity when used in conjunction wi th a low risk clinical pre-test probability assessment. Performing Organization Address [facility] Number [facility] LABORATORY SERVICES CLIA # [id number] [place] [address] - [place] 100 [facility] LABORATORY SERVICES CLIA # [id number] [place] [address] - [place] [address] * CBC WITH DIFFERENTIAL (09/29/2017 5:47 PM CDT) [facility] WBC 11.9 (H) 4.0 - 11.0 K/uL [facility] [place] RBC 4.01 (L) 4.20 - 5.40 M/uL [facility] LAB[facility] SERVICES - [place] HEMOGLOBIN 13.5 12.5 - 16.0 g/dL [facility] [place] HEMATOCRIT 40.2 37.0 - 47.0 % [facility] [place] MCV 100.2 (H) 78.0 - 100.0 fL [facility] [place] MCH 33.7 27.0 - 34.0 pg [facility] SERVICES - [place] MCHC 33.6 31.0 - 37.0 g/dL [facility] [place] RDW 12.9 12.0 - 15.0 % [facility] [place] RDW-STDEV 47.2 37.1 - 48.[address] [facility] [place] PLATELETS 167 150 - 450 K/uL [facility] [place] MPV 10.3 9.3 - 12.[address] [facility] [place] NEUTROPHILS 68 31 - 76 % [facility] [place] LYMPHOCYTES 24 24 - 44 % [facility] [place] MONOCYTES 5 2 - 11 % [facility] [place] EOSINOPHILS 1 0 - 6 % [facility] [place] BASOPHILS 0 0 - 2 % [facility] [place] IMMATURE 2 0 - 2 % [facility]ANUL[facility] - [place] NEUTROPHIL 8.04 (H) 1.80 - 7.70 K/uL [facility] - [place] LYMPHOCYTE 2.86 1.00 - 4.80 K/uL [facility] ABSOLUTE LABORATORY SERVICES - [place] MONOCYTE 0.54 0.10 - 1.30 K/uL [facility] ABSOLUTE LABORATORY SERVICES - [place] EOSINOPHIL 0.13 0.00 - 0.70 K/uL [facility] ABSOLUTE LABORATORY SERVICES - [place] BASOPHILS 0.04 0.00 - 0.20 K/uL [facility] [place] IMMATURE 0.25 (H) 0.00 - 0.10 K/uL [facility] GR[facility] ABSOLUTE SERVICES - [place] Specimen Blood Performing Organization Address [facility] [facility] one Number [facility] LABORATORY SERVICES CLIA # [id number] [place] [address] - [place] 100 [facility] LABORATORY SERVICES CLIA # [id number] [place] [address] - [place] [address] [facility] * BRAIN NATRIURETIC PEPTIDE, BNP OR PROBNP (09/29/2017 5:47 PM CDT) PROBNP, N 118 0 - 125 pg/mL [facility] TERMINAL LABORATORY SERVICES - [place] Specimen Blood Performing Organization Address [facility] one Number [facility] LABORATORY SERVICES CLIA # [id number] [place] [address] - [place] 100 [facility] LABORATORY SERVICES CLIA # [id number] [place] [address] - [place] [address] * LIPASE (09/29/2017 5:47 PM CDT) LIPASE 63 (H) 13 - 60 U/L [facility] [place] Specimen Blood Performing Organization Address [facility] one Number [facility] LABORATORY SERVICES CLIA # [id number] [place] [address] - [place] 100 [facility] LABORATORY SERVICES CLIA # [id number] [place] [address] - [place] [address] * TSH REFLEXIVE (09/29/2017 5:47 PM CDT) TSH 5.78 (H) 0.27 - 4.20 uIU/mL [facility] [place] Specimen Blood Performing Organization Address [facility] one [facility] CLIA # [id number] [place] [address] - [place] 100 [facility] LABORATORY SERVICES CLIA # [id number] [place] [address] - [place] [address] * TROPONIN (09/29/2017 5:47 PM CDT) TROPONIN T <0.01 <0.01 ng/mL [facility] [place] Specimen Blood Narrative Performed At Testing methodologies for Troponin vary between labor atories. Because of this, [facility] LABOR[facility]ORY values obtained with different assay methods or kits may be different, and SERVICES - [place] cannot be used interchangeably or in a continuum of care situation. Performing Organization Address [facility] one Number [facility] LABORATORY SERVICES CLIA # [id number] [place] [address] - [place] 100 [facility] LABORATORY SERVICES CLIA # [id number] [place] [address] - [place] [address] * XR CHEST PA OR AP 1 VW (09/29/2017 5:25 PM CDT) Specimen Narrative Performed At History: Chest pain. INTERFACE SYSTEM AP upright chest: Comparison 10/08/2010. Blunting of the right lateral costophrenic sulcus, similar to previou sly, suggesting scarring. Small recurrent pleural fluid collection is a lso possible. Linear structure suggesting a catheter projected over th e abdomen and lower chest to the right of midline with the tip proje cted over the region of the junction of the inferior vena cava and right atrium. Alternately, this may reside outside the patient. IVC inocencia ter projected to the right of the upper lumbar spine. No focal consol idation or acute congestive failure. No significant atelectasis. No rmal heart size and mediastinal width. Stable postsurgical changes at t he base of the right neck. CONCLUSION: 1. Scarring versus small recurrent righ t pleural fluid collection. 2. Possible catheter with tip projected over the region of the inferior vena cava/right atrial junctio n, versus a foreign body located external to the patient. 3. No other evidence of an acute proces s, with stable postsurgical changes at the base of the right neck. Procedure Note Interface, [facility] Incoming Radiology Results - 09/29/2017 5:32 PM CDT History: Chest pain. AP upright chest: Comparison 10/08/2010. Blunting of the right lateral costophrenic sulcus, similar to previously, suggesting scarring. Small recurrent pleural fluid collection is also possible. Linear structure suggesting a catheter projected over the abdomen and lower chest to the right of midline with the tip projected over the region of the junction of the inferior vena cava and right atrium. Alternately, this may reside outside the patient. IVC filter projected to the right of the upper lumbar spine. No focal consolidation or acute congestive failure. No significant atelectasis. Normal heart size and mediastinal width. Stable postsurgical changes at the base of the right neck. CONCLUSION: 1. Scarring versus small recurrent right pleural fluid collection. 2. Possible catheter with tip projected over the region of the inferior vena cava/right atrial junction, versus a foreign body located external to the patient. 3. No other evidence of an acute process , with stable postsurgical changes at the base of the right neck. 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 : 1965 Requested By: Order Number: [id number] Reading MD: Sourav Damian MD Severity: Abnormal ECG Measurements Intervals [place] Rate: 88 P: 79 [place]: 156 QRS: 79 QRSD: 114 T: 44 QT: 384 QTc: 464 Interpretive Statements N ormal sinus rhythm Right bundle branch block Abnormal ECG Electronically Signed On 09-29-2017 23:3 4:40 CDT by Sourav Damian MD Procedure Note Interface, [facility] Incoming Radiology Results - 09/29/2017 11:34 PM CDT Stationary ECG Study [address] [address] Test Date: 09/29/2017 4:09 PM Pat Name: SOPHIA HAWKINS Department: 30 Room: [address] [place] [address] Gender: Female 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 [employer]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: [id number] : 1965 Requested By: Order Number: [id number] Reading MD: Sourav Damian MD Severity: Abnormal ECG Measurements Intervals [place] Rate: 88 P: 79 [place]: 156 QRS: 79 QRSD: 114 T: 44 QT: 384 QTc: 464 Interpretive Statements Normal sinus rhythm Right bundle branch block Abnormal ECG Electronically Signed On 09-29-2017 23:34:40 CDT by Sourav Damian MD Performing Organization Address City/State/[facility] one Number INTERFACE SYSTEM INTERFACE SYSTEM Refer to clinic/hospital department documented in this encounter Visit Diagnoses Diagnosis Chest pain - Primary Chest pain, unspecified Tobacco use Tobacco use disorder Chronic pain syndrome Narcotic dependence Unspecified drug dependence, unspecifie d H/O small bowel obstruction Personal history of other diseases of d igestive system Other sleep apnea Acquired hypothyroidism Unspecified hypothyroidism Lupus anticoagulant with hypercoagulabl e state Primary hypercoagulable state Encounter for care related to vascular access port Fitting and adjustment of vascular cath eter Slow transit constipation Personal history of DVT (deep vein thro mbosis) Personal history of venous thrombosis a nd embolism Chronic venous embolism and thrombosis of deep vessels of distal end of right lower extremity documented in this encounter Administered Medications Action Date Dose Rate Site Medication Order MAR Action 09/29/2017 10:09 PM CDT 2 mg Groin, L eft alteplase (CATHFLO ACTIVASE) 2 mg Given injection 2 mg 2 mg, Dwell, ONE TIME ONLY, 1 dose, [facility] 09/29/17 at 2115, Routine 10/03/2017 9:00 PM CDT 80 mg atorvastatin (LIPITOR) tablet 80 mg Given 80 mg, Oral, DAILY AT BEDTIME, First dose on Tue09/29/17 at 2100, Until Discontinued, Routine 80 mg Given 10/02/2017 8:46 PM CDT 80 mg Given 10/01/2017 9:23 PM CDT 09/30/2017 12:46 PM CDT 75 mg clopidogrel (PLAVIX) tablet 75 mg Given 75 mg, Oral, DAILY, First dose on Tue09/30/17 at 0900, Until Discontinued, Routine dextrose 5 % in water 250 mL flush bag 25 mL 25 mL, IV, SEE ADMIN INSTRUCTIONS, Starting María Elena 09/29/17 at 1819, Until Tue10/04/17 at 1551, Routine dextrose 5% infusion IV, at 40 mL/hr, SEE ADMIN INSTRUCTIONS , Starting [place] 10/02/17 at 1043, Until Tue10/04/17 at 1551, Routine dextrose 50% (D50) syringe 12.5 Gram 12.5 Gram, IV, SEE ADMIN INSTRUCTIONS, Starting [place] 10/02/17 at 1043, Until Tue10/04/17 at 1551, Routine dextrose 50% (D50) syringe 25 Gram 25 Gram, IV, SEE ADMIN INSTRUCTIONS, Starting [place] 10/02/17 at 1043, Until Tue10/04/17 at 1551, Routine 10/04/2017 8:33 AM CDT 60 mg DULoxetine (CYMBALTA) capsule 60 mg Given 60 mg, Oral, TWO TIMES DAILY, First dos e on María Elena 09/29/17 at 2100, Until Discontinued, Routine 60 mg Given 10/03/2017 9:00 PM CDT 60 mg Given 10/03/2017 8:32 AM CDT 10/02/2017 1:15 PM CDT 60 mg Abdomen, Right Lower Quadrant enoxaparin (LOVENOX) injection 60 mg Given 60 mg, subCUT, EVERY 12 HOURS, 5 doses, First dose on Tue09/30/17 at 1400, Last dose on Tue10/02/17 at 1400, Routine 60 mg Abdomen, Left Lower Quadrant Given 10/02/2017 1:52 AM CDT 60 mg Abdomen, Right Lower Quadrant Given 10/01/2017 1:47 PM CDT 10/03/2017 8:40 AM CDT 1 Puff fluticasone-vilanterol (BREO ELLIPTA) Given 200-25 mcg/dose inhaler 1 Puff 1 Puff, Inhalation, DAILY RESPIRATORY, First dose on Tue09/30/17 at 0800, Unti l Discontinued, Routine 1 Puff Given 10/02/2017 8:25 AM CDT 1 Puff Given 10/01/2017 8:42 AM CDT 10/04/2017 8:32 AM CDT 600 mg gabapentin (NEURONTIN) capsule 600 mg Given 600 mg, Oral, TWO TIMES DAILY, First dose on Tue09/30/17 at 1745, Until Discontinued, Routine 600 mg Given 10/03/2017 9:00 PM CDT 600 mg Given 10/03/2017 8:32 AM CDT glucagon HCl 1 mg injection 1 mg 1 mg, IM, SEE ADMIN INSTRUCTIONS, Starting Tue10/02/17 at 1043, Until Tue10/04/17 at 1551, Routine 10/02/2017 10:59 AM CDT 10 mg hydrALAZINE (APRESOLINE) 20 mg/mL Given injection 10 mg 10 mg, IV, EVERY 6 HOURS PRN, Starting María Elena 09/29/17 at 1537, Until Tue10/04/17 at 1551, Blood Pressure, SBP>160, Routine 09/29/2017 8:01 PM CDT 0.3 mg HYDROmorphone (DILAUDID) 2 mg/mL Given injection 0.3 mg 0.3 mg, IV, EVERY 4 HOURS PRN, Starting María Elena 09/29/17 at 1553, Until Tue09/29/17 at 2218, Pain (See admin instructions), Routine 10/03/2017 11:17 PM CDT 10 Units Arm, Rig ht insulin glargine (LANTUS) injection 10 Given Units 10 Units, subCUT, DAILY AT BEDTIME, First dose on Tue10/02/17 at 2100, Unti l Discontinued, Routine 10 Units Arm, Right Upper Given 10/02/2017 9:24 PM CDT 10/02/2017 8:42 AM CDT 5 Units Arm, Rig ht insulin lispro (HumaLOG) injection 5 Given Units 5 Units, subCUT, THREE TIMES DAILY WITH MEALS, First dose on Tue10/01/17 at 1930, Until Discontinued, Routine 5 Units Arm, Left Upper Given 10/01/2017 7:30 PM CDT 10/04/2017 6:39 AM CDT 6 Units Arm, Rig ht insulin lispro (HumaLOG) injection 6 Given Units 6 Units, subCUT, THREE TIMES DAILY WITH MEALS, First dose on 10/02/17 at 1200, Until Discontinued, Routine 6 Units Arm, Right Given 10/03/2017 11:59 AM CDT 6 Units Arm, Right Given 10/02/2017 5:39 PM CDT 09/29/2017 7:16 PM CDT 58 mL iopamidol (ISOVUE-370) 76 % injection Contrast 100 mL Given 100 mL, IV, INTRA-PROCEDURE ONCE, 1 dose, Starting Tue09/29/17 at 1900, Until Tue09/29/17 at 1916, Routine 10/04/2017 12:43 PM CDT 3 mL ipratropium-albuterol (DUONEB) 0.5 mg-3 Given mg(2.5 mg base)/3 mL inhalation solutio n 3 mL 3 mL, Inhalation, EVERY 1 HOUR PRN RESPIRATORY, Starting Tue09/29/17 at 1532, Until Tue10/04/17 at 1551, Shortness of Breath, Routine 3 mL Given 10/04/2017 4:34 AM CDT 3 mL Given 10/03/2017 6:42 PM CDT IPRATROPIUM-ALBUTEROL 0.5 MG-3 MG(2.5 M G BASE)/3 ML NEBULIZATION SOLN (CABINET OVERRIDE) 1 dose, Starting Tue09/30/17 at 1009, Until Tue09/30/17 at 1014, Isaac OCAMPO: cabinet override, 10/02/2017 11:59 PM CDT 40 mL/hr lactated Ringers solution New Bag IV, at 75 mL/hr, CONTINUOUS, Starting Tue10/03/17 at 0000, Until Tue10/04/17 at 1551, Routine 10/04/2017 6:05 AM CDT 75 mcg levothyroxine (SYNTHROID) tablet 75 mcg Given 75 mcg, Oral, DAILY EARLY, First dose o n Tue09/30/17 at 0600, Until Discontinued , Routine 75 mcg Given 10/03/2017 6:09 AM CDT 75 mcg Given 10/02/2017 6:24 AM CDT 10/03/2017 8:32 AM CDT 20 mg lisinopril (PRINIVIL) tablet 20 mg Given 20 mg, Oral, DAILY, First dose on María Elena 09/29/17 at 1545, Until Discontinued, Routine 20 mg Given 10/02/2017 8:23 AM CDT 20 mg Given 10/01/2017 8:38 AM CDT 10/04/2017 8:33 AM CDT 500 mg methocarbamol (ROBAXIN) tablet 500 mg Given 500 mg, Oral, FOUR TIMES DAILY, First dose on [facility] 10/01/17 at 0900, Until Discontinued, Routine 500 mg Given 10/03/2017 9:00 PM CDT 500 mg Given 10/03/2017 6:50 PM CDT 09/29/2017 5:44 PM CDT 125 mg methylPREDNISolone sodium succinate PF Given (SOLU-Medrol PF) injection 125 mg 125 mg, IV, ONE TIME ONLY, 1 dose, [facility] 09/29/17 at 1700, Routine 10/04/2017 6:04 AM CDT 10 mg morphine (ROXANOL) oral concentrate 10 Given mg 10 mg, Oral, EVERY 6 HOURS, First dose on [facility] 09/29/17 at 1800, Until Discontinued, Routine 10 mg Given 10/03/2017 11:52 PM CDT 10 mg Given 10/03/2017 6:48 PM CDT 10/03/2017 4:03 AM CDT 2 mg morphine 4 mg/mL injection 2 mg Given 2 mg, IV, ONE TIME ONLY, 1 dose, 10/03/17 at 0400, Routine 10/02/2017 4:54 AM CDT 3 mg morphine 4 mg/mL injection 3 mg Given 3 mg, IV, EVERY 4 HOURS PRN, Starting [facility] 09/29/17 at 2217, Until [place] 10/02/17 at 0854, Pain (See admin instructions), Routine 3 mg Given 10/02/2017 1:51 AM CDT 3 mg Given 10/01/2017 10:25 PM CDT 10/04/2017 8:40 AM CDT 4 mg morphine 4 mg/mL injection 4 mg Given 4 mg, IV, EVERY 3 HOURS PRN, Starting [place] 10/02/17 at 0900, Until Tue10/04/17 at 1551, Pain (See admin instructions), Routine 4 mg Given 10/04/2017 4:45 AM CDT 4 mg Given 10/04/2017 1:04 AM CDT 10/03/2017 9:00 PM CDT 4 mg ondansetron (ZOFRAN ODT) tablet 4 mg Given 4 mg, Oral, EVERY 8 HOURS PRN, Starting Tue09/30/17 at 0310, Until Tue10/04/17 at 1551, Nausea/Emesis, Routine 4 mg Given 10/03/2017 8:41 AM CDT 4 mg Given 10/02/2017 9:28 PM CDT 10/04/2017 6:05 AM CDT 40 mg pantoprazole (PROTONIX) tablet 40 mg Given 40 mg, Oral, DAILY BEFORE BREAKFAST, First dose on Tue09/30/17 at 0730, Unti l Discontinued, Routine 40 mg Given 10/03/2017 6:09 AM CDT 40 mg Given 10/02/2017 6:24 AM CDT 10/03/2017 12:00 PM CDT 95 mg phenazopyridine tablet 95 mg Given 95 mg, Oral, THREE TIMES DAILY AFTER MEALS, 9 doses, First dose on Tue09/30/17 at 1800, Last dose on Tue10/03/17 at 1300, Routine 95 mg Given 10/03/2017 8:32 AM CDT 95 mg Given 10/02/2017 5:18 PM CDT 10/04/2017 8:32 AM CDT 17 Grams polyethylene glycol (MIRALAX) packet 17 Given Gram 17 Gram, Oral, TWO TIMES DAILY, First dose on Tue10/02/17 at 0900, Until Discontinued, Routine 17 Grams Given 10/03/2017 8:38 AM CDT 17 Grams Given 10/02/2017 9:10 AM CDT 09/30/2017 1:54 PM CDT 0.4 mg regadenoson (LEXISCAN) 0.4 mg/5 mL Given injection 0.4 mg, IV, INTRA-PROCEDURE ONCE, 1 dose, Starting Tue09/30/17 at 1349, Until Tue09/30/17 at 1354, Routine 10/04/2017 8:33 AM CDT 1 Tablet sennosides-docusate sodium (SENNA-S) Given 8.6-50 mg per tablet 1 Tablet 1 Tablet, Oral, TWO TIMES DAILY, First dose on Tue10/02/17 at 0900, Until Discontinued, Routine 1 Tablet Given 10/03/2017 8:32 AM CDT 1 Tablet Given 10/02/2017 8:46 PM CDT sodium chloride 0.9 % 250 mL flush bag 25 mL 25 mL, IV, SEE ADMIN INSTRUCTIONS, Starting [facility] 09/29/17 at 1819, Until Tue10/04/17 at 1551, Routine 09/29/2017 7:15 PM CDT 100 mL 6000 mL/hr sodium chloride 0.9% bolus solution 100 Bolus mL 100 mL, IV, ONE TIME ONLY, 1 dose, [facility] 09/29/17 at 1915, at 6,000 mL/hr, Administer over 1 Minutes, Routine 10/03/2017 4:08 PM CDT sodium chloride 0.9% infusion Continue IV, at 30 mL/hr, CONTINUOUS, Starting from Pre-Op 10/03/17 at 1445, Until Tue10/04/17 at 1551, Stat 30 mL/hr New Bag 10/03/2017 2:40 PM CDT 10/04/2017 8:34 AM CDT 10 mL sodium chloride flush injection 10 mL Given 10 mL, IV, EVERY 12 HOURS, First dose o n [facility] 09/29/17 at 2100, Until Discontinued , Routine 10 mL Given 10/03/2017 10:05 PM CDT 10 mL Given 10/02/2017 8:46 PM CDT 09/30/2017 1:55 PM CDT 10 mL sodium chloride flush injection 10 mL Given 10 mL, IV, TWO TIMES DAILY, First dose on Tue09/30/17 at 1400, Until Discontinued, Routine 10 mL Given 09/30/2017 1:54 PM CDT 10 mL Given 09/30/2017 8:30 AM CDT 10/04/2017 4:46 AM CDT 5 mL sodium chloride flush injection 5 mL Given 5 mL, IV, SEE ADMIN INSTRUCTIONS, Starting [facility] 09/29/17 at 1819, Until Tue10/04/17 at 1551, Routine 5 mL Given 10/04/2017 1:05 AM CDT 5 mL Given 10/02/2017 9:22 PM CDT 10/04/2017 8:34 AM CDT 1 Drop timolol (TIMOPTIC) 0.5 % ophthalmic Given solution 1 Drop 1 Drop, Left Eye, TWO TIMES DAILY, Firs t dose on María Elena 09/29/17 at 2100, Until Discontinued, Routine 1 Drop Given 10/03/2017 10:04 PM CDT 1 Drop Given 10/03/2017 8:35 AM CDT documented in this encounter Additional Health Concerns Assessment Noted Time A Depression follow-up plan has been documented for t he patient 06/07/2017 12:05 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
--- OUTSIDE RECORDS SUMMARY | 2019-09-01 13:59 | XMS REPORT | Encounter Summary ---
Author Author [facility], Jah Garcia, [place], [place], [facility] Organization [facility], Jah Garcia, [place], [place], [place] Address Unknown Phone Unavailable Care Team Providers Care [employer] Clerk Name Role Phone Jose CoronaKristie DO PCP Reason for Visit * Reason Comments Urinary Retention * Auth/Cert Referred By Contact Referred To Contact Status Reason Specialty Diagnoses / Procedures [facility] Emergency Department [address] [place] [id number] Emergency Medicine Encounter Details Care Team Description Date Type Department Doris Goodman, DO [address] [place] [id number] Urinary retention (Primary Dx) 10/05/[address] [facility] in Emergency Department [address] [place] [id number] Social History Date Tobacco Use Types [...] Signs Reading Time Taken Comments Vital Sign 128/72 10/05/2017 4:30 PM CDT Blood Pressure - - Pulse 36.4 C (97.6 F) 10/05/2017 4:30 PM CDT Temperature - - Respiratory Rate 95% 10/05/2017 4:30 PM CDT Oxygen Saturation - - Inhaled Oxygen Concentration 70.3 kg (155 lb) 10/05/2017 4:30 PM CDT Weight 170.2 cm (5' 7") 10/05/2017 4:30 PM CDT Height 24.28 10/05/2017 4:30 PM CDT Body Mass Index documented in this encounter Discharge Instructions * Instructions* Doris Goodman, - 10/05/2017 You were seen today for urinary retention. You had a trivedi catheter placed. The catheter can be removed on Tuesday. Your lab results were negative for any concerning findings. Please take medications as prescribed. Please follow up with Dr Corona Please return to the ER for any changes in your condition or other concerns. * Attachments The following attachments cannot be sent through Care Everywhere.* Urinary Retention (Faroese) documented in this encounter Medications at Time [...] 75 mcg 0 tablet by mouth daily tabular typist. DULoxetine (CYMBALTA) 60 Take 60 mg by [...] 3 days. documented as of this encounter ED Notes * Joann Graham RN - 10/05/2017 4:32 PM CDT Bed: ED 16 Expected date: Expected time: Means of arrival: Comments: adia * Gonzalo Mares RN - 10/05/2017 4:30 PM CDT Sophia Hawkins presents to [facility], ambulatory alone, with reports of u rinary retention since being discharged yesterday. * Doris Goodman, DO - 10/05/2017 4:29 PM CDT HISTORY OF PRESENT ILLNESS Sophia Hawkins, a 52 y.o. female presents to the ED with a Chief Complaint of U rinary Retention Subjective H&P PERFORMED AT: 1650 PT, A 52 YO FEMALE, PRESENTS TO ED C/O URINE RETENTION ONSET LAST NIGHT. PT STAT ES SHE WAS ABLE TO URINATE LAST NIGHT THOUGH IT WAS PAINFUL AND TODAY WHEN SHE T RIED TO URINATE SHE WAS UNABLE TO. PT RECENTLY WAS ADMITTED TO THE HOSPITAL AND WAS DISCHARGED TODAY. DENIES ANY OTHER ASSOCIATED SX AT THIS TIME. ALLERGIES: ADHESIVE TAPE-SILICONES. ASPRIN. CODEINE. COMPAZINE. IMITREX. INAPSI NE. REGLAN. JUAN-30. TORADOL. BETADINE. PMHX: THROMBOEMBOLISM. LUPUS. ASTHMA. HTN. CRI. PULMONARY EMBOLISM. COPD. BOWEL OBSTRUCTION. ANXIETY. DEPRESSION. HYPOTHYROIDISM. HYPERLIPIDEMIA.SLEEP APNEA. PA NCREATITIS. SURGICAL HX: APPENDECTOMY. HYSTERECTOMY. CHOLECYSTECTOMY. KNEE SURGERY. SOCIAL HX: PT CURRENTLY SMOKES 1 PACK PER DAY. History provided by: The patient rn night used: No Arrived by: Private vehicle Arrived from: Home REVIEW OF SYSTEMS Review of Systems Constitutional: Negative for chills and fever. HENT: Negative for congestion, rhinorrhea and sore throat. Respiratory: Negative for cough and shortness of breath. Cardiovascular: Negative for chest pain. Gastrointestinal: Negative for abdominal pain, diarrhea, nausea and vomiting. Genitourinary: Positive for dysuria. Negative for flank pain. URINE RETENTION. Musculoskeletal: Negative for back pain and neck pain. Skin: Negative for rash. Neurological: Negative for headaches. PAST MEDICAL HISTORY REVIEWED MEDICAL: Patient has a past medical history of Anxiety; Asthma; BiPAP (biphasic positive airway pressure) dependence; Bowel obstruction; Bowel obstruction; Chest pain; Chronic pain; COPD (chronic obstructive pulmonary disease); CRI (chronic renal i nsufficiency); Depression; HTN (hypertension); Hyperlipidemia; Hypothyroidism; L upus; Lupus; Obstructive sleep apnea (adult) (pediatric); Pancreatitis; Pulmonar y embolism (june 2010); and Thromboembolism. She also has no past medical histo ry of Diabetes mellitus or Unspecified adverse effect of anesthesia. SURGICAL: Patient has a past surgical history that includes hx appendectomy; hx hysterect cachorro; hx cholecystectomy; hx knee surgery; pr insj tunneled ctr vad w/subq port a ge 5 yr/> (10/08/2010); chg anes freeing bowel adhesion,enterolysis; hx gallbladder surgery; hx knee arthroscopy (Left); hx tumor removal; pr ercp w/sphincterotomy/papillotomy (N/A, 08/30/2014); pr ercp,rmv f.b./change stent (N/A, 08/30/2014); pr insj tunneled ctr vad w/subq port age 4 yr/> (Left, 10/03/2017); and pr rmvl abdirashid ctr vad w/subq port/corporate bond trader ctr/prph insj (Left, 10/03/2017). FAMILY: Patient's family history includes Cancer in her mother; Healthy in her brother a nd sister; Heart Disease in her father. SOCIAL: reports that she has been smoking Cigarettes. She has a 25.00 pack-year smokin g history. She has never used smokeless tobacco. She reports that she uses drugs , including Marijuana. She reports that she does not drink alcohol or engage in sexual activity. No history on file. Social History Other Topics Concern Not on file PROBLEM LIST: Patient has Acute exacerbation of chronic obstructive pulmonary disease (COPD); CO2 narcosis; Tobacco use; Chronic pain syndrome; Narcotic dependence; H/O small bowel obstruction; Other sleep apnea; Acquired hypothyroidism; Lupus anticoagul ant with hypercoagulable state; Steroid-induced hyperglycemia; Chest pain; Encou nter for care related to vascular access port; Slow transit constipation; Person al history of DVT (deep vein thrombosis); and Chronic venous embolism and thromb osis of deep vessels of distal end of right lower extremity on her problem list. ALLERGIES Adhesive tape-silicones; Aspirin; Codeine; Compazine [prochlorperazine edisylate ]; Imitrex [sumatriptan succinate]; Inapsine [droperidol]; Reglan [metoclopramid e]; Juan-30; Toradol [ketorolac]; and Betadine [povidone-iodine] HOME MEDICATIONS Discharge Medication List as of 10/05/2017 5:58 PM CONTINUE these medications which have NOT CHANGED Details ondansetron (ZOFRAN ODT) 8 mg Tablet, Rapid Dissolve Take 1 Tablet (8 mg) by sania th every 6 hours as needed for Nausea/Emesis., Disp-30 Tablet, R-0 insulin glargine (LANTUS) 100 unit/mL injection Inject 10 Units by subcutaneous injection daily with breakfast., Disp-3 mL, R-0 methocarbamol (ROBAXIN) 500 mg tablet Take 1 Tablet (500 mg) by mouth 4 times da brenna for 3 days., Disp-12 Tablet, R-0 atorvastatin (LIPITOR) 80 mg tablet Take 0.5 Tablets (40 mg) by mouth daily at b edtime., Disp-30 Tablet, R-0 Blood-Glucose Meter (THE MELT VERIO FLEX START) Kit To test blood glucose at lemuel e. ICD 10: R73.9., Disp-1 Kit, R-0 blood sugar diagnostic (Glu MobileUCH VERIO) Strip To test fsbg three times daily. IC D 10: R73.9.., Disp-100 Each, R-0 lancets (One Touch Delica) 33 gauge To test fsbg three times daily. ICD 10 R73.9 ., Disp-100 Each, R-0 ipratropium-albuterol (DUONEB) 0.5 mg-3 mg(2.5 mg base)/3 mL Solution for Nebuli zation Take 3 mL by inhalation every 6 hours as needed for Shortness of Breath., Disp-90 mL, R-0 fluticasone-vilanterol (BREO ELLIPTA) 200-25 mcg/dose Disk with Device Take 1 Pu ff by inhalation daily., Disp-1 Inhaler, R-0 rivaroxaban (XARELTO) 20 mg Tablet Take 20 mg by mouth daily. gabapentin enacarbil (HORIZANT ORAL) Take 1,200 mg by mouth daily . buprenorphine HCl (BELBUCA) [address] 75 mcg inside cheek 2 times daily. lisinopril (PRINIVIL) 20 mg tablet Take 1 Tablet (20 mg) by mouth daily., Disp-9 0 Tablet, R-1 hydrOXYzine pamoate (VISTARIL) 50 mg capsule Take 1 Capsule (50 mg) by mouth 3 t imes daily as needed for Anxiety., Disp-30 Capsule, R-0 levothyroxine 75 mcg tablet Take 75 mcg by mouth daily tabular typist. DULoxetine (CYMBALTA) 60 mg Capsule, Delayed Release(E.C.) Take 60 mg by mouth 2 times daily . timolol (TIMOPTIC) 0.5 % solution Administer 1 Drop in left eye 2 times daily. diphenhydrAMINE (BENADRYL) 25 mg Oral tablet Take 25 mg by mouth every 6 hours a s needed. Allergies morphine (MS IR) 15 mg Oral tablet Take 15 mg by mouth every 4 hours as needed. breakthru pain omeprazole (PRILOSEC) 20 mg Oral CpDR Take 20 mg by mouth daily. docusate sodium (COLACE) 100 mg Oral capsule Take 1 Cap by mouth 2 times daily. ALBUTEROL INHALATION Objective PHYSICAL EXAM INITIAL VS BP: 128/72 (10/05/17 1630), Heart Rate: 95 bpm (10/05/17 1630), Resp: (not recor ded), Temp: 97.6 F (36.4 C) (10/05/17 1630), Temp src: Oral (10/05/17 1630), SpO2: 95 % (10/05/17 1630), Height: 5' 7" (170.2 cm) (10/05/17 1630), Weight: 7 0.3 kg (155 lb) (10/05/17 1630), BMI (Calculated): 24.27 (10/05/17 1630) No LMP recorded. Patient has had a hysterectomy. Physical Exam Constitutional: She is oriented to person, place, and time. She appears well-dev eloped and well-nourished. No distress. HENT: Head: Normocephalic and atraumatic. Right Ear: External ear normal. Left Ear: External ear normal. Nose: Nose normal. Eyes: Conjunctivae and EOM are normal. Pupils are equal, round, and reactive to light. Right eye exhibits no discharge. Left eye exhibits no discharge. Neck: Neck supple. No tracheal deviation present. No thyromegaly present. Cardiovascular: Normal rate, regular rhythm and normal heart sounds. Exam revea ls no gallop and no friction rub. No murmur heard. Pulmonary/Chest: Effort normal and breath sounds normal. No respiratory distress . She has no wheezes. She has no rales. Abdominal: Soft. She exhibits distension. There is tenderness in the right lower quadrant, suprapubic area and left lower quadrant. DISTENSION OVER LOWER ABDOMEN AND SUPRAPUBIC REGIONS. Musculoskeletal: Normal range of motion. Neurological: She is alert and oriented to person, place, and time. Skin: Skin is warm and dry. No rash noted. She is not diaphoretic. Psychiatric: She has a normal mood and affect. Her behavior is normal. Nursing note and vitals reviewed. DIAGNOSTICS LAB: RADIOLOGY: Physical Exam Abdomen Abdomen comments: DISTENSION OVER LOWER ABDOMEN AND SUPRAPUBIC REGIONS. EKG: PROCEDURES Procedures MEDICAL DECISION MAKING AND PLAN OF CARE [facility] 1732: PT SLEEPING IN NAD AND EASILY AROUSED. RECOMMENDED PT KEEP THE FOLLY ALEX TER IN PLACE FOR 4 DAYS AND TO HAVE THE VISITING NURSES TO HER HOME REMOVE IT. D ISCUSS REASONS TO RETURN. PT IS COMFORTABLE WITH PLAN AND VERBALIZED AGREEMENT. PT IS STABLE FOR DISCHARGE AT THIS TIME. Discharge Medication List as of 10/05/2017 5:58 PM CONTINUE these medications which have NOT CHANGED Details ondansetron (ZOFRAN ODT) 8 mg Tablet, Rapid Dissolve Take 1 Tablet (8 mg) by sania th every 6 hours as needed for Nausea/Emesis., Disp-30 Tablet, R-0 insulin glargine (LANTUS) 100 unit/mL injection Inject 10 Units by subcutaneous injection daily with breakfast., Disp-3 mL, R-0 methocarbamol (ROBAXIN) 500 mg tablet Take 1 Tablet (500 mg) by mouth 4 times da brenna for 3 days., Disp-12 Tablet, R-0 atorvastatin (LIPITOR) 80 mg tablet Take 0.5 Tablets (40 mg) by mouth daily at b edtime., Disp-30 Tablet, R-0 Blood-Glucose Meter (ONETOUCH VERIO FLEX START) Kit To test blood glucose at lemuel e. ICD 10: R73.9., Disp-1 Kit, R-0 blood sugar diagnostic (ONETOUCH VERIO) Strip To test fsbg three times daily. IC D 10: R73.9.., Disp-100 Each, R-0 lancets (One Touch Delica) 33 gauge To test fsbg three times daily. ICD 10 R73.9 ., Disp-100 Each, R-0 ipratropium-albuterol (DUONEB) 0.5 mg-3 mg(2.5 mg base)/3 mL Solution for Nebuli zation Take 3 mL by inhalation every 6 hours as needed for Shortness of Breath., Disp-90 mL, R-0 fluticasone-vilanterol (BREO ELLIPTA) 200-25 mcg/dose Disk with Device Take 1 Pu ff by inhalation daily., Disp-1 Inhaler, R-0 rivaroxaban (XARELTO) 20 mg Tablet Take 20 mg by mouth daily. gabapentin enacarbil (HORIZANT ORAL) Take 1,200 mg by mouth daily . buprenorphine HCl (BELBUCA) [address] 75 mcg inside cheek 2 times daily. lisinopril (PRINIVIL) 20 mg tablet Take 1 Tablet (20 mg) by mouth daily., Disp-9 0 Tablet, R-1 hydrOXYzine pamoate (VISTARIL) 50 mg capsule Take 1 Capsule (50 mg) by mouth 3 t imes daily as needed for Anxiety., Disp-30 Capsule, R-0 levothyroxine 75 mcg tablet Take 75 mcg by mouth daily tabular typist. DULoxetine (CYMBALTA) 60 mg Capsule, Delayed Release(E.C.) Take 60 mg by mouth 2 times daily . timolol (TIMOPTIC) 0.5 % solution Administer 1 Drop in left eye 2 times daily. diphenhydrAMINE (BENADRYL) 25 mg Oral tablet Take 25 mg by mouth every 6 hours a s needed. Allergies morphine (MS IR) 15 mg Oral tablet Take 15 mg by mouth every 4 hours as needed. breakthru pain omeprazole (PRILOSEC) 20 mg Oral CpDR Take 20 mg by mouth daily. docusate sodium (COLACE) 100 mg Oral capsule Take 1 Cap by mouth 2 times daily. ALBUTEROL INHALATION LAST VS BP: 128/72 (10/05/17 1630), Heart Rate: 95 bpm (10/05/17 1630), Resp: (not recor ded), Temp: 97.6 F (36.4 C) (10/05/17 1630), Temp src: Oral (10/05/17 1630), SpO2: 95 % (10/05/17 1630) CLINICAL IMPRESSION Final diagnoses: [R33.9] Urinary retention (Primary) DISPOSITION, EDUCATION AND MEDICATION RECONCILIATION Medications reconciled. See after visit summary for patient education on discha rged patients. ED Disposition ED Disposition Condition User Date/Time Comment Discharge Stable Doris Goodman DO TueOct 05, 2017 5:34 PM ATTESTATION STATEMENTS By signing my name below, I, Gay Villa, attest that this documentation has been prepared under the direction and in the presence of Dr. Doris Goodman DO . Electronically Signed: Abraham Leigh. 10/07/2017 8:46 PM ATTESTATIONS The scribe's documentation has been prepared under my direction and personally r eviewed by me in its entirety. I confirm that the note above accurately reflects all work, treatment, procedures, and medical decision making performed by me. Dipika Goodman DO documented in this encounter Plan of Treatment Not on filedocumented as of this encounter Procedures Comments Procedure Name Priority Date/Time Associated Diag nosis URINALYSIS WITH REFLEX Stat 10/05/2017 CULTURE 5:11 PM CDT documented in this encounter Results * URINALYSIS WITH REFLEX CULTURE (10/05/2017 5:11 PM CDT) COLOR UA Milli (A) Pale to dark yellow [facility] [place] CLARITY UA Clear Clear [facility] [place] SPECIFIC 1.015 1.003 - 1.035 [facility] [place] PH UA 5.0 5.0 - 8.0 [facility] [place] LEUKOCYTE Negative Negative [facility] [place] NITRITE UA Negative Negative [facility] [place] PROTEIN UA Negative Negative [facility] [place] GLUCOSE UA 1+ (A) Negative [facility] [place] KETONES UA Negative Negative [facility] [place] UROBILINOGEN UA 4.0 (A) <2.0 mg/dL [facility] [place] BILIRUBIN UA Negative Negative [facility] [place] BLOOD UA 1+ (A) Negative [facility] [place] WBC UA 0-2 0 - 2 /hpf [facility] [place] RBC UA 11-25 (A) 0 - 2 /hpf [facility] [place] BACTERIA UA Negative Negative /hpf [facility] [place] EPITHELIAL 0-5 0 - 5 /hpf [facility], URINE [facility] [place] Specimen Urine - Urine, indwelling (Trivedi) catheter Performing Organization Address City/State/Zipcode Ph one Number [facility] CLIA # [id number] [place]ANCY Duarte [address] - [place] [address] [facility] CLIA # [id number] NANCY Duarte [address] - [place] [address] [facility] documented in this encounter Visit Diagnoses Diagnosis Urinary retention - Primary Retention of urine, unspecified documented in this encounter Additional Health Concerns Assessment Noted Time A Depression follow-up plan has been documented for t paola patient 06/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
--- OUTSIDE RECORDS SUMMARY | 2019-09-01 14:00 | XMS REPORT | Encounter Summary ---
Author Author [facility] Jah Garcia [place], [place], [place] Organization [facility] Jah GarciaG[place], [place], [place] Address Unknown Phone Unavailable Care Team Providers Care Tents Assembler Name Role Phone Jose CoronaKristie DO PCP Reason for Visit * Auth/Cert Referred By Contact Referred To Contact Status Reason Specialty Diagnoses / Procedures [facility] 7 Cardiac Medical Telemetry [address] [place] [address] Multi Specialty Diagnoses Chest Pain Encounter Details Care Team Description Date Type Department Emigdio Argueta MD 100 [facility] [address] [place] [address] CATHETER VENOUS ACCESS REMOVAL 10/03/2017 Surgery [facility] in Operating Room [address] [place] [address] Social History Date Tobacco Use [...] PATIENT: Sophia Hawkins AGE: 52 y.o. CSN: [id number] SEX: female Date of : 1965 Reason [...] of acute deep or superficial venous thrombosis. Director Strategy sheila deep venous thrombosis is noted in [...] SYNTHROID Take 75 mcg by mouth daily co pilot. Refills: 0 lisinopril 20 mg tablet Commonly [...] Your Medications These medications were sent to [facility], [facility] [address] [facility], [place] [address] atorvastatin 80 mg tablet methocarbamol 500 mg [...] were cared for by physicians in the [facility] list program. At the time of your [...] 10/04/2017, 11:50 AM CC: Jose Corona DO [address] [address] [address] / [facility] [address] documented in this encounter Discharge Instructions * [...] were cared for by physicians in the [facility] list program. At the time of your [...] Signed: Tushar Valente MD 10/04/2017, 11:45 AM [facility] to resume previous [facility] plan of care. documented in this encounter [...] 75 mcg 0 tablet by mouth daily co pilot. DULoxetine (CYMBALTA) 60 Take 60 mg by [...] 12:02 PM CDT Discharge plan: Home, resume [facility] for SN visits CM met with patient and discussed IM letter, signature received, copy offered an d declined. States no needs at this time. CM to follow. NANI Camilo, BSN, [employer]ancer [phone] * Francine Kumar RN - 10/04/2017 11:26 AM CDT 1039: Dr. Valente called. Patient requesting to be discharged by 1300 due to radha t being the only time the patient will have a ride home. Left massage. No return ed call at this time. * Mary Beth Lockwood RN - 10/04/2017 11:04 AM CDT [facility] FYI NOTE--pt is a current [facility] client with Critical access hospital for Skilled Nurse Visits. Per [facility]--pt does not have home PT in place, as she will not part icipate with home PT. Following... EDGAR CARDOZA [facility] liaison * Francine Kumar RN - 10/04/2017 10:35 AM CDT Assessing patient this AM concerning nausea and vomiting. Patient stated that sh marni was not feeling nauseated at that time. [...] to allergy. [facility] * Laura Mccormack DO - 10/02/2017 10:46 [...] discussed and , included pain, bleeding, infection, CT, P E/DVT, stroke . Patient verbalized understanding and all questions were answered to patient satisfaction * Laura Mccormack, DO - 10/01/2017 9:54 AM CDT Hospitalist [...] Pyridium and urinalysis was reviewed at [facility] and that was negative for infection 4. Check labs in morning 5. Maintain oxygen supplementation at night The patient was seen by me on 10/01/17 at about 0800 Laura Mccormack DO 10/01/2017 9:54 AM * Melanie Cisse, RN - 10/01/2017 8:36 AM CDT 10/01/17 [...] by v ascular surgery * Debbie Wise, RN - 09/30/2017 4:54 PM CDT Patient has [...] successful in the past * Sabrina Del Cid, NANI - 09/30/2017 11:26 AM CDT Attempted to [...] frame. Transport returning pt room. * Laura Mccormack DO - 09/30/2017 10:12 AM CDT Hospitalist [...] consulted who will replace her port on but will hold Xarelto and Plavix in [...] in the patients electronic health record using [employer] ase: RosamariaplinCAngelica protocol 3. For Imaging procedures requiring intravenous [...] any GI tract access approved by the [facility] physician. Dilute 50 mL of Omnipaque 300 [...] only ? If at any time the clinical laboratory aides teacher has a question about which option to [...] PATIENT: Sophia Hawkins AGE: 52 y.o. CSN: [id number] : 1965 PCP: Jose Corona DO HPI: Sophia Hawkins is a 52 y.o. White female with Lupus on hypercoagulable state on chronic anticoagulation with DVThx, COPD, HTN, HLD, Hypothyroidism, Chronic Mann creatitis a patient of Jose Corona DO who is being admitted through [facility] nsfer from another facility due to chest pain [...] HX KNEE SURGERY HX TUMOR REMOVAL abdominal OR ERCP W/SPHINCTEROTOMY/PAPILLOTOMY N/A 08/30/2014 CHOLANGIOPANCREATOGRAPHY RETROGRADE ENDOSCOPIC performed by Edilberto Urbina MD at [facility] OR ERCP,RMV F.B./CHANGE STENT N/A 08/30/2014 STENT REMOVAL performed by Edilberto Urbina MD at [facility] OR INSJ TUNNELED CTR VAD W/SUBQ PORT AGE 5 YR/> 10/08/2010 CATHETER VENOUS ACCESS PLACEMENT performed by APOLLO PINEDA at [facility] Home Medications: No prescriptions prior to admission. Social [...] pending, will follow Past records available through [facility] Assessment: Principal Problem: Chest pain Active Problems: [...] Buprenorphine, will manage with morphine. Patient requesti marie german dosis, educated upon it. The patient was seen by me on 09/29/17 at about 1600. Ramez Shah MD, 09/29/2017 12:39 PM CC. Jose Corona, DO [address] [facility] [address] / [facility] [address] documented in this encounter Consult Notes * [...] HX KNEE SURGERY HX TUMOR REMOVAL abdominal OR ERCP W/SPHINCTEROTOMY/PAPILLOTOMY N/A 08/30/2014 CHOLANGIOPANCREATOGRAPHY RETROGRADE ENDOSCOPIC performed by Edilberto Urbina MD at [facility] OR ERCP,RMV F.B./CHANGE STENT N/A 08/30/2014 STENT REMOVAL performed by Edilberto Urbina MD at [facility] OR INSJ TUNNELED CTR VAD W/SUBQ PORT AGE 5 YR/> 10/08/2010 CATHETER VENOUS ACCESS PLACEMENT performed by APOLLO PINEDA at [facility] Current Facility-Administered Medications Medication Dose Route [...] 1 Drop 1 Drop Left Eye BID Ramez Marie MD 1 Drop at 09/30/17 0839 pantoprazole [...] 0.4 mg Sublingual q 5 min PRN Ramze Barillas MD clopidogrel (PLAVIX) tablet 75 mg 75 mg Oral Daily Ramez Mcghee MD atorvastatin (LIPITOR) tablet 80 mg 80 mg Oral Daily BEDTIME Ramez Mcghee MD 80 mg at 09/29/172120 hydrALAZINE (APRESOLINE) 20 mg/mL injection 10 mg 10 mg IV q 6 hour PRN Ramez Marie MD morphine (ROXANOL) oral concentrate 10 mg [...] E Ramez Mcghee MD 2 mg at 09/29/17 2209 morphine 4 mg/mL injection 3 mg 3 mg IV q 4 hour PRN Ramez Mcghee MD 3 mg at 09/30/17 0836 [DISCONTINUED] morphine (MS IR) tablet 15 mg 15 mg Oral q 4 hour PRN Ramez Carolina MD [DISCONTINUED] HYDROmorphone (DILAUDID) 2 mg/mL injection 0.3 mg 0.3 mg IV q 4 hour PRN aRmez Mcghee MD 0.3 mg at 09/29/172000 Allergies [...] and , included pain, blee ding, infection, CT, PE/DVT, stroke, failure of port . Patient verbalized unders tanding and all questions were answered to patient satisfaction documented in this encounter OR Notes * Operative Report - Emigdio Argueta MD - 10/03/2017 8:27 PM CDT NAME: Sophia Hawkins : 1965 MRN; [id number] CSN: [id number] ADMISSION DATE: 09/29/2017 OPERATIVE REPORT DATE: 10/03/2017 SURGEON: Surgeon(s) and Role: * Emigdio Argueta MD - Primary PRE-OP DIAGNOSIS: Poor venous access with a nonfunctioning left femoral port POST-OP DIAGNOSIS: SAME PROCEDURE: #1 removal of left groin nonfunctioning port #2 placement of a left from oral PowerPort FINDINGS: See report lpn medical assistant: Anjali Goss PA-C COMPLICATIONS: None Procedure(s) and Anesthesia Type: * CATHETER VENOUS ACCESS REMOVAL - General * CATHETER VENOUS ACCESS PLACEMENT - General Additional CPT Codes: *No additional CPT codes listed in log* Procedure Start: 163 Procedure End: 174 ESTIMATED BLOOD LOSS: 25 mL FLUIDS: See record SPECIMENS: * No specimens in log * IMPLANTS: Implant Name Type Inv. Item Serial No. Analytics Developer Lot No. LRB No. Used Action PORT PWRPRT 9.6FR ATTACHABL [id number] - [id number] Port PORT PWRPRT 9.6FR ATTACHAB L [id number] CR BARD[employer] [id number] Left 1 Implanted INDICATIONS FOR OPERATION: Patient [...] skin with 4-0 subcuticular Biosyn by my optometric assistant and then skin glue for dressing patient was extubated and sent to rambo very room. Emigdio Argueta MD * Ying-OP - Judie Metzger RN - 10/03/2017 1:20 PM CDT Gerald Gómez Pre-op Verification Contacts- RN 1. ____Heather RN 2. CN 3. Patient supervisor cooler service time/date ____1530 (subject to change, pre-op meek l notify [...] requests it. BP normal this morning (1 35/), however this afternoon it was 189/91, 173/82 [...] . 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 Next of kin/contact verified as Francesca Rodgers (sister), contact number PCP verified as Jose Corona. Patient's insurance verified as Medicare. Patient has prescription coverage: yes Patient's preferred pharmacy: [facility], in [facility] [place] Equipment in home of: cane, home oxygen, baseline 2l/nc in the day as needed, an d 8L at night through her triology machine, has no portable tanks, supplied by [employer]. Discussed discharge goals and possible discharge needs. Transportation on discharge son or family Comments: Patient denies any current needs. She has HH through [facility] and if she needs therapy, she would want it through them. She wants to resume services with [facility] on discharge, contact and send resumption order, Allison at [phone] Care Management will continue to follow and assist as needed. Indiana Rai RN, Care Management, [phone] * Care Plan - Facundo Medrano RN - 10/01/2017 6:00 AM CDT Pain, Potential/Actual Verbalizes/displays acceptable comfort level or baseline comfort level Varia nce Pt rested periodically during the night. Pt has continuous complaints of pain wi th temporary relief by pain medications. VSS Will continue to monitor. * Care Plan - Debbie Wise, NANI - 09/30/2017 5:36 PM CDT Pain, Potential/Actual [...] Comments Procedure Name Priority Date/Time Associated Diag jaylanis TELEMETRY REPORT 10/06/2017 10:56 AM CDT POC [...] 1 VW Routine 09/29/2017 5:25 PM CDT OR ELECTROCARDIOGRAM, Routine 09/29/2017 COMPLETE 3:35 PM CDT documented in this encounter Results * TELEMETRY REPORT (10/06/2017 10:56 AM CDT) Narrative Performed At This result has an attachment that is n ot available. * POC GLUCOSE (10/04/2017 12:03 PM CDT) POC GLUCOSE 179 (H) 70 - 105 mg/dL [facility] [place] PLANT OPERATIONS MANAGER NAME Rebecca Guzman [facility] [place] Specimen Whole blood sample (specimen) Performing Organization Address [facility]/Counts Include 234 [facility] At [facility] CLIA # [id number] [place] [address] - [place] 100 [facility] CLIA # [id number] [place], [place] [address] - [place] 100 [facility] * POC GLUCOSE (10/04/2017 6:38 AM CDT) POC GLUCOSE 159 (H) 70 - 105 mg/dL [facility] [place] PLANT OPERATIONS MANAGER NAME tommie finley [facility] [place] Specimen Whole blood sample (specimen) Performing Organization Address [facility]/Counts Include 234 [facility] CLIA # [id number] [place] [address] - [place] 100 [facility] LABORAT[facility] SERVICES CLIA # [id number] [place], [place] [address] - [place] 100 [facility] * POC GLUCOSE (10/03/2017 11:16 PM CDT) POC GLUCOSE 207 (H) 70 - 105 mg/dL [facility] [place] PLANT OPERATIONS MANAGER NAME tommie finley [facility] [place] Specimen Whole blood sample (specimen) Performing Organization Address [facility]/Counts Include 234 [facility] CLIA # [id number] [place] [address] - [place] 100 [facility] LABORATORY SERVICES CLIA # [id number] [place], [place] [address] - [place] [address] [facility] [address] * POC GLUCOSE (10/03/2017 7:36 PM CDT) POC GLUCOSE 102 70 - 105 mg/dL [facility] [place] PLANT OPERATIONS MANAGER NAME tommie finley [facility] [place] Specimen Whole blood sample (specimen) Performing Organization Address [facility] LABORATORY SERVICES CLIA # [id number] [place] [address] - [place] 100 [facility] LABORATORY SERVICES CLIA # [id number] [place], [place] [address] - [place] [address] [facility] [address] [facility] [address] * XR FLUORO GREATER THAN 1 HOUR (10/03/2017 5:57 PM CDT) Specimen Narrative Performed At Order information only. Exam was auto -finalized. * POC GLUCOSE (10/03/2017 2:22 PM CDT) POC GLUCOSE 87 70 - 105 mg/dL [facility] [place] PLANT OPERATIONS MANAGER NAME melanie cisse [facility] [place] Specimen Whole blood sample (specimen) Performing Organization Address [facility] LABORATORY SERVICES CLIA # [id number] [place] [address] - [place] 100 [facility] LABORATORY SERVICES CLIA # [id number] [place], [place] [address] - [place] 100 [facility] * POC GLUCOSE (10/03/2017 11:55 AM CDT) POC GLUCOSE 146 (H) 70 - 105 mg/dL [facility] [place] PLANT OPERATIONS MANAGER NAME deangelo choi [facility] [place] Specimen Whole blood sample (specimen) Performing Organization Address [facility]/Counts Include 234 [facility] one [facility] LABORATORY SERVICES CLIA # [id number] [place] [address] - [place] 100 [facility] LABORATORY SERVICES CLIA # [id number] [place], [place] [address] - [place] [address] [facility] [address] * POC GLUCOSE (10/03/2017 8:02 AM CDT) POC GLUCOSE 155 (H) 70 - 105 mg/dL [facility] [place] PLANT OPERATIONS MANAGER NAME deangelo choi [facility] [place] Specimen Whole blood sample (specimen) Performing Organization Address [facility] LABORATORY SERVICES CLIA # [id number] [place] [address] - [place] 100 [facility] LABORATORY SERVICES CLIA # [id number] [place], [place] [address] - [place] 100 [facility] * POC GLUCOSE (10/02/2017 8:52 PM CDT) POC GLUCOSE 182 (H) 70 - 105 mg/dL [facility] [place] PLANT OPERATIONS MANAGER NAME ike jules [facility] [place] Specimen Whole blood sample (specimen) Performing Organization Address [facility] [employer] [facility] CLIA # [id number] [place] [address] - [place] 100 [facility] LABORATORY SERVICES CLIA # [id number] [place], [place] [address] - [place] 100 [facility] * POC GLUCOSE (10/02/2017 5:38 PM CDT) POC GLUCOSE 222 (H) 70 - 105 mg/dL [facility] [place] PLANT OPERATIONS MANAGER NAME ike parker [facility] [employer] [facility] [place] Specimen Whole blood sample (specimen) Performing Organization Address [facility] [employer] SERVICES CLIA # [id number] [place] [address] - [place] 100 [facility] LABORATORY SERVICES CLIA # [id number] [place], [place] [address] - [place] 100 [facility] [employer] * POC GLUCOSE (10/02/2017 12:26 PM CDT) POC GLUCOSE 123 (H) 70 - 105 mg/dL [facility] [place] PLANT OPERATIONS MANAGER NAME ike parker [facility] [place] Specimen Whole blood sample (specimen) Performing Organization Address [facility] Ph one Number [facility] CLIA # [id number] [place] [address] - [place] 100 [facility] LABORATORY SERVICES CLIA # [id number] [place], [place] [address] - [place] 100 [facility] * POC GLUCOSE (10/02/2017 8:30 AM CDT) Pathologist [facility] POC GLUCOSE 189 (H) 70 - 105 mg/dL [facility] [place] PLANT OPERATIONS MANAGER NAME ike parker [facility] [place] Specimen Whole blood sample (specimen) Performing Organization Address [facility] Ph one Number [facility] CLIA # [id number] [place] [address] - [place] 100 [facility] LABORATORY SERVICES CLIA # [id number] [place], [place] [address] - [place] 100 [facility] * COMPREHENSIVE METABOLIC PANEL (10/02/2017 3:52 AM CDT) Pathologist [facility] SODIUM 140 136 - 145 mmol/L [facility] [place] POTASSIUM 4.2 3.5 - 5.1 mmol/L [facility] [place] CHLORIDE 100 98 - 107 mmol/L [facility] [place] CO2 30 (H) 22 - 29 mmol/L [facility] [place] CALCIUM 9.0 8.6 - 10.0 mg/dL [facility] [place] BUN 21 (H) 6 - 20 mg/dL [facility] [place] CREATININE 0.69 0.51 - 0.95 mg/dL [facility] [place] GLUCOSE 217 (H) 74 - 105 mg/dL [facility] [place] TOTAL PROTEIN 6.1 (L) 6.4 - 8.3 g/dL [facility] [place] ALBUMIN 3.6 (L) 4.0 - 4.9 g/dL [facility] [place] BILIRUBIN TOTAL 0.4 <=1.2 mg/dL [facility] [place] ALKALINE 96 35 - 104 U/L [facility] PHOSPHATASE LAB[facility]ATORY SERVICES - [place] AST 11 0 - 32 U/L [facility] [place] ALT 12 0 - 33 U/L [facility] [place] GFR >60 >=60 mL/min/1.73 sq [facility] Comment: meter LABORATORY eGFR has not been [...] GFR result. GFR, >60 >=60 mL/min/1.73 sq [facility] - [place] ANION GAP 10 4 - 13 mmol/L [facility] - [place] Specimen Blood Performing Organization Address City/State/Zipcode Ph one Number [facility] CLIA # [id number] [place] [address] - [place] 100 [facility] LABORATORY SERVICES CLIA # [id number] [place] [address] - [facility] 100 [facility] * CBC WITH DIFFERENTIAL (10/02/2017 3:52 AM CDT) WBC 8.3 4.0 - 11.0 K/uL [facility] - [facility] RBC 3.76 (L) 4.20 - 5.40 M/uL [facility] [place] HEMOGLOBIN 12.6 12.5 - 16.0 g/dL [facility] [place] HEMATOCRIT 38.7 37.0 - 47.0 % [facility] - [place] MCV 102.9 (H) 78.0 - 100.0 fL [facility] [place] MCH 33.5 27.0 - 34.0 pg [facility] [place] MCHC 32.6 31.0 - 37.0 g/dL [facility] - [place] RDW 13.2 12.0 - 15.0 % [facility] - [place] RDW-STDEV 49.3 (H) 37.1 - 48.7 fL [facility] [place] PLATELETS 137 (L) 150 - 450 K/uL [facility] [place] MPV 10.5 9.3 - 12.4 fL [facility] [place] NEUTROPHILS 63 31 [...] [place] BASOPHILS 0.03 0.00 - 0.20 K/uL [facility] - [place] IMMATURE 0.08 0.00 - 0.10 K/uL [facility] ABSOLUTE SERVICES - [place] Specimen Blood Performing Organization Address [facility] Ph one [facility] LABORATORY SERVICES CLIA # [id number] [place] [address] - [place] 100 [facility] LABORATORY SERVICES CLIA # [id number] [place] [address] - [place] 100 [facility] * POC GLUCOSE (10/01/2017 7:30 PM CDT) POC GLUCOSE 234 (H) 70 - 105 mg/dL [facility] - [place] PLANT OPERATIONS MANAGER NAME facundo medrano [facility] [place] Specimen Whole blood sample (specimen) Performing Organization Address [facility] Ph one [facility] LABORATORY SERVICES CLIA # [id number] [place] [address] - [place] 100 [facility] LABORATORY SERVICES CLIA # [id number] [place] [address] - [place] 100 [facility] * US VENOUS DOPPLER LEG BILATERAL (09/30/2017 4:29 PM CDT) Specimen Narrative Performed At This result has an attachment that is n ot available. [x] [place] [] Sandra da [] [place] [] [place] [] [place] [] [place] Venous duplex examination using B-mode, color flow [...] inferior vena cava filter. Procedure Note Interface, [facility] Sgf Incoming Radiology Results - 09/30/2017 4:35 PM [...] approach catheter appears intact. Performing Organization Address [facility]/Counts Include 234 Beds At The [facility] one Number INTERFACE SYSTEM INTERFACE SYSTEM [...] cava and right atr ium. Procedure Note Interface, Sunil Sgf Incoming Radiology Results - 09/30/2017 4:30 PM [...] cava and right atrium. Performing Organization Address [facility]/Counts Include 234 Beds At The [facility] one Number INTERFACE SYSTEM INTERFACE SYSTEM [...] interpreting radiologist # for physician inquiry/clinical information/consultation ([place], [place]): OFFICE: [phone] / secondary back up #s: [phone] (lead experimental technician office). Narrative Performed At Nuclear Medicine [...] motion within normal limits. Procedure Note Interface, [facility] Sgf Incoming Radiology Results - 09/30/2017 3:00 [...] interpreting radiologist # for physician inquiry/clinical information/consultation ([place], [place]): OFFICE: [phone] / secondary back up #s: [phone] (lead experimental technician office). Performing Organization Address [facility] Ph one Number INTERFACE SYSTEM INTERFACE SYSTEM Refer to clinic/hospital department * NM PHARMACOLOGICAL STRESS TEST (09/30/2017 1:59 PM CDT) Specimen Narrative Performed At [facility] Cardiology - [place] CADIOLOGY STRESS REPORT Name: Sophia Hawkins : 1965 Sex: female Date: 09/30/2017 Referring Provider: Chaim Mcghee MD [address] [place], [place] [address] [address] PCP: Jose Corona DO Mexican Food Maker: NONE Symptom Complaint/Indication: Chest p ain Ordering Physician: Jonelle Mcghee Family Physician: Jose Corona DO History/Indications: Chest Pain Intervention: Lexiscan 0.4mg IV over 10 seconds Baseline ECG: Normal sinus, RBBB Symptoms: Dyspnea, Headache, Nausea ECG changes: None Baseline blood pressure: 140/75 Response to intervention: Normal Heart rate response: Normal Supervising Provider: Elvin Nielson MD,FACC ,FSCAI,RPVI Performing Organization Address [facility] Ph one Number [facility] CLIA # [id number] [place] [address] [address] * COMPREHENSIVE METABOLIC PANEL (09/30/2017 3:37 AM CDT) SODIUM 141 136 - 145 mmol/L [facility] [place] POTASSIUM 4.8 3.5 - 5.1 mmol/L [facility] [place] CHLORIDE 100 98 - 107 mmol/L [facility] [place] CO2 27 22 - 29 mmol/L [facility] [place] CALCIUM 10.0 8.6 - 10.0 mg/dL [facility] [place] BUN 16 6 - 20 mg/dL [facility] [place] CREATININE 0.71 0.51 - 0.95 mg/dL [facility] [place] GLUCOSE 393 (H) 74 - 105 mg/dL [facility] [place] TOTAL PROTEIN 6.8 6.4 - 8.3 g/dL [facility] [place] ALBUMIN 4.1 4.0 - 4.9 g/dL [facility] [place] BILIRUBIN TOTAL 0.3 <=1.2 mg/dL [facility] [place] ALKALINE 108 (H) 35 - 104 U/L [facility] PHOSPHATASE [facility] [place] AST 12 0 - 32 U/L [facility] [place] ALT 15 0 - 33 U/L [facility] [place] GFR >60 >=60 mL/min/1.73 sq [facility] Comment: meter LABORATORY eGFR has not been [...] GFR result. GFR, >60 >=60 mL/min/1.73 sq [facility] MONEGASQUE meter [facility] [place] ANION GAP 14 (H) 4 - 13 mmol/L [facility] [place] Specimen Blood Performing Organization Address City/State/[place] Ph one Number [facility] CLIA # [id number] [place] [address] - [place] 100 [facility] LABORATORY SERVICES CLIA # [id number] [place] Duarte [address] - [place] 100 [facility] * CBC WITH DIFFERENTIAL (09/30/2017 3:37 AM CDT) [facility] Signature WBC 9.7 4.0 - 11.0 K/uL [facility] [place] RBC 4.03 (L) 4.20 - 5.40 M/uL [facility] [place] HEMOGLOBIN 13.4 12.5 - 16.0 g/dL [facility] [place] HEMATOCRIT 40.0 37.0 - 47.0 % [facility] [place] MCV 99.3 78.0 - 100.0 fL [facility] [place] MCH 33.3 27.0 - 34.0 pg [facility] [place] MCHC 33.5 31.0 - 37.0 g/dL [facility] [place] RDW 13.0 12.0 - 15.0 % [facility] [place] RDW-STDEV 46.5 37.1 - 48.7 fL [facility] [place] PLATELETS 172 150 - 450 K/uL [facility] [place] MPV 10.4 9.3 - 12.4 fL [facility] [place] NEUTROPHILS 92 (H) 31 - 76 % [facility] [place] LYMPHOCYTES 5 (L) 24 - 44 % [facility] [place] MONOCYTES 1 (L) 2 - 11 % [facility] [place] EOSINOPHILS 0 0 - 6 % [facility] [place] BASOPHILS 0 0 - 2 % [facility] [place] IMMATURE 2 0 - 2 % [facility] GRANULOCYTES [facility] [place] NEUTROPHIL 8.91 (H) 1.80 - 7.70 K/uL [facility] ABSOLUTE [facility] - [place] LYMPHOCYTE 0.51 (L) 1.00 - 4.80 K/uL [facility] [place] MONOCYTE 0.09 (L) 0.10 - 1.30 K/uL [facility] [place] EOSINOPHIL 0.00 0.00 - 0.70 K/uL [facility] ABSOLUTE [facility] [place] BASOPHILS 0.02 0.00 - 0.20 K/uL [facility] ABSOLUTE [facility] [place] IMMATURE 0.18 (H) 0.00 - 0.10 K/uL [facility] GRANULOCYTES LABORATORY ABSOLUTE SERVICES - [place] Specimen Blood Narrative Performed At Smear reviewed: Automated differential confirmed. [facility] - [place] Performing Organization Address City/[facility]/Counts Include [facility] one [facility] LABORATORY SERVICES CLIA # [id number] [place] [address] - [place] 100 [facility] LABORATORY SERVICES CLIA # [id number] [place], [place] [address] - [place] 100 [facility] * EXTRA TUBE (LAV) (09/30/2017 3:37 AM CDT) Specimen Blood Performing Organization Address [facility] Ph one [facility] LABORATORY SERVICES CLIA # [id number] [place] [address] - [place] 100 [facility] * EXTRA TUBE (GREEN) (09/30/2017 3:37 AM CDT) Specimen Blood Performing Organization Address [facility]/Counts Include [facility] one [facility] LABORATORY SERVICES CLIA # [id number] [place] [address] - [place] 100 [facility] * LIPID RFLX (09/30/2017 3:37 AM CDT) CHOLESTEROL 242 (H) <200 mg/dL [facility] [place] TRIGLYCERIDE 85 <150 mg/dL [facility] [place] HDL 107 (H) 40 - 59 mg/dL [facility] [place] LDL CALCULATED 118 (H) <100 mg/dL [facility] [employer] [facility] [place] NON-HDL 135 (H) <130 mg/dL [facility] CHOLESTEROL [facility] [place] Specimen Blood Narrative Performed At TOTAL CHOLESTEROL mg/dL [facility] Desirable <200 SERVICES - [place] Borderline [...] for Lipid Panels (NCEP/AMA) Performing Organization Address City/[facility]/Counts Include [facility] one Number [facility] CLIA # [id number] [place] [address] - [place] 100 [facility] LABORATORY SERVICES CLIA # [id number] [place] [address] - [place] [address] * TROPONIN (09/29/2017 11:35 PM CDT) TROPONIN T <0.01 <0.01 ng/mL [facility] [place] Specimen Blood Narrative Performed At Testing methodologies for Troponin vary between labor atories. Because of this, [facility] values obtained with different assay methods or kits may be different, and [facility] [place] cannot be used interchangeably or in a continuum of care situation. Performing Organization Address [facility]/Counts Include [facility] one Number [facility] CLIA # [id number] [place] [address] - [place] 100 [facility] CLIA # [id number] [place] [address] - [place] [address] * CTA CHEST W CONTRAST (09/29/2017 [...] at its posterior aspect Procedure Note Interface, [facility] Incoming Radiology Results - 09/29/2017 8:51 [...] fracture, with chronic nonunion Performing Organization Address City/State/Zipcode Ph one Number INTERFACE SYSTEM INTERFACE SYSTEM Refer to clinic/hospital department * T4 FREE (09/29/2017 5:47 PM CDT) T4 FREE 1.27 0.93 - 1.70 ng/dL [facility] [place] Specimen Blood Performing Organization Address City/State/Zipcode Ph one Number [facility] CLIA # [id number] [place] [address] - [place] 100 [facility] LABORATORY SERVICES CLIA # [id number] [place] Du[place] [address] - [place] 100 [facility] * COMPREHENSIVE METABOLIC PANEL (09/29/2017 5:47 PM CDT) SODIUM 137 136 - 145 mmol/L [facility] [place] POTASSIUM 4.2 3.5 - 5.1 mmol/L [facility] [place] CHLORIDE 95 (L) 98 - 107 mmol/L [facility] [place] CO2 29 22 - 29 mmol/L [facility] [place] CALCIUM 9.4 8.6 - 10.0 mg/dL [facility] [place] BUN 13 6 - 20 mg/dL [facility] [place] CREATININE 0.75 0.51 - 0.95 mg/dL [facility] [place] GLUCOSE 187 (H) 74 - 105 mg/dL [facility] [place] TOTAL PROTEIN 6.9 6.4 - 8.3 g/dL [facility] [place] ALBUMIN 4.0 4.0 - 4.9 g/dL [facility] [place] BILIRUBIN TOTAL 0.5 <=1.2 mg/dL [facility] [place] ALKALINE 92 35 - 104 U/L [facility] PHOSPHATASE [facility] - [place] AST 11 0 - 32 U/L [facility] [place] ALT 15 0 - 33 U/L [facility] [place] GFR >60 >=60 mL/min/1.73 sq [facility] Comment: meter LABORATORY eGFR has not been [...] GFR result. GFR, >60 >=60 mL/min/1.73 sq [facility] LAB[facility]ATORY [facility] - [place] ANION GAP 13 4 - 13 mmol/L [facility] [place] Specimen Blood Performing Organization Address [facility]/Counts Include [facility] one [facility] LABORATORY SERVICES CLIA # [id number] [place] [address] - [place] 100 [facility] LABORATORY SERVICES CLIA # [id number] [place], [place] [address] - [place] 100 [facility] * PROTIME-INR (09/29/2017 5:47 PM CDT) PROTIME 12.7 11.8 - 14.6 Seconds [facility] - [place] INR 0.9 0.9 - 1.2 [facility] - [place] Specimen Blood Narrative Performed At Therapeutic range: 2.0 - 3.5 [facility] - [place] Performing Organization Address [facility] LABORATORY SERVICES CLIA # [id number] [place] [address] - [place] 100 [facility] LABORATORY SERVICES CLIA # [id number] [place], [place] [address] - [place] 100 [facility] * SEDIMENTATION RATE (09/29/2017 5:47 PM CDT) ESR 9 0 - 20 mm/Hr [facility] (SEDIMENTATION LABORATORY RATE) SERVICES - [place] Specimen Blood Performing Organization Address [facility]/Counts Include [facility] one [facility] LABORATORY SERVICES CLIA # [id number] [place] [address] - [place] 100 [facility] LABORATORY SERVICES CLIA # [id number] [place], [place] [address] - [place] 100 [facility] * D-DIMER (09/29/2017 5:47 PM CDT) D-DIMER QUANT 1.29 (HH) 0.00 - 0.46 ug/mL [facility] - [place] Specimen Blood Narrative Performed At Various clinical studies utilizing this method have shown that a result of < 0.5 [facility] mcg/ml FEU excludes deep vein thrombosis and pulmonar y embolism with high [facility] [place] sensitivity when used in conjunction wi th a low risk clinical pre-test probability assessment. Performing Organization Address City/State/Zipcode Ph one Number [facility] SERVICES CLIA # [id number] [place] [address] - [place] [address] [facility] CLIA # [id number] [place] [address] - [place] [address] * CBC WITH DIFFERENTIAL (09/29/2017 5:47 PM CDT) WBC 11.9 (H) 4.0 - 11.0 K/uL [facility] [place] RBC 4.01 (L) 4.20 - 5.40 M/uL [facility] [place] HEMOGLOBIN 13.5 12.5 - 16.0 g/dL [facility] [place] HEMATOCRIT 40.2 37.0 - 47.0 % [facility] [place] MCV 100.2 (H) 78.0 - 100.0 fL [facility] [place] MCH 33.7 27.0 - 34.0 pg [facility] [place] MCHC 33.6 31.0 - 37.0 g/dL [facility] [place] RDW 12.9 12.0 - 15.0 % [facility] [place] RDW-STDEV 47.2 37.1 - 48.7 fL [facility] [place] PLATELETS 167 150 - 450 K/uL [facility] [place] MPV 10.3 9.3 - 12.4 fL [facility] [place] NEUTROPHILS 68 31 [...] NEUTROPHIL 8.04 (H) 1.80 - 7.70 K/uL [facility] ABSOLUTE LABORATORY SERVICES - [place] LYMPHOCYTE 2.86 1.00 - 4.80 K/uL [facility] ABSOLUTE LAB[facility]ATORY SERVICES - [place] MONOCYTE 0.54 0.10 - 1.30 K/uL [facility] ABSOLUTE LAB[facility] - [place] EOSINOPHIL 0.13 0.00 - 0.70 K/uL [facility] ABSOLUTE LAB[facility] SERVICES - [place] BASOPHILS 0.04 0.00 - 0.20 K/uL [facility] ABSOLUTE LAB[facility]AT[facility] SERVICES - [place] IMMATURE 0.25 (H) 0.00 - 0.10 K/uL [facility] GRANULOCYTES LABORATORY ABSOLUTE SERVICES - [place] Specimen Blood Performing Organization Address City/[facility] Ph one [facility] LABORATORY SERVICES CLIA # [id number] [place] [address] - [place] 100 [facility] LABORATORY SERVICES CLIA # [id number] [place], [place] [address] - [place] [address] [place] [address] * BRAIN NATRIURETIC PEPTIDE, BNP OR PROBNP (09/29/2017 5:47 PM CDT) Pathologist [facility] PROBNP, N 118 0 - 125 pg/mL [facility] TERMINAL LABORATORY SERVICES - [place] Specimen Blood Performing Organization Address [facility]/Counts Include [facility] one [facility] LABORATORY SERVICES CLIA # [id number] [place] [address] - [place] 100 [facility] LABORATORY SERVICES CLIA # [id number] [place] [address] - [place] 100 [facility] * LIPASE (09/29/2017 5:47 PM CDT) LIPASE 63 (H) 13 - 60 U/L [facility] - [place] Specimen Blood Performing Organization Address City/State/Zipcode Ph one [facility] LABORATORY SERVICES CLIA # [id number] [place] [address] - [place] 100 [facility] LABORATORY SERVICES CLIA # [id number] [place], [place] [address] - [place] 100 [facility] * TSH REFLEXIVE (09/29/2017 5:47 PM CDT) TSH 5.78 (H) 0.27 - 4.20 uIU/mL [facility] LAB[facility]AT[facility] SERVICES - [place] Specimen Blood Performing Organization Address [facility]/Counts Include [facility] one Number [facility] LABORATORY SERVICES CLIA # [id number] [place] [address] - [place] 100 [facility] CLIA # [id number] [place] [address] - [place] [address] * TROPONIN (09/29/2017 5:47 PM CDT) TROPONIN T <0.01 <0.01 ng/mL [facility] - [place] Specimen Blood Narrative Performed At Testing methodologies for Troponin vary between labor atories. Because of this, [facility] values obtained with different assay methods or kits may be different, and SERVICES - [place] cannot be used interchangeably or in a continuum of care situation. Performing Organization Address [facility]/Counts Include [facility] one Number [facility] LABORATORY SERVICES CLIA # [id number] [place] [address] - [place] 100 [facility] LABORATORY SERVICES CLIA # [id number] [place] [address] - [place] [address] * XR CHEST PA OR AP [...] of the right neck. 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 : 1965 Requested By: Order Number: [id number] Reading MD: Sourav Damian MD Severity: Abnormal ECG Measurements Intervals Evans Rate: 88 P: 79 OR: 156 QRS: 79 QRSD: 114 T: 44 QT: 384 QTc: 464 Interpretive Statements N ormal sinus rhythm Right bundle branch block Abnormal ECG Electronically Signed On 09-29-2017 23:3 4:40 CDT by Sourav Damian MD Procedure Note Interface, [facility] Incoming Radiology Results - 09/29/2017 11:34 PM CDT Stationary ECG Study [address] [place] [address] Test Date: 09/29/2017 4:09 PM Pat Name: SOPHIA HAWKINS Department: 30 Room: 7122 01 Gender: Female Biochemistry Technician: [id number] : 1965 Requested By: Order Number: [id number] Reading MD: Sourav Damian MD Severity: Abnormal ECG Measurements Intervals Evans Rate: 88 P: 79 OR: 156 QRS: 79 QRSD: 114 T: 44 QT: 384 QTc: 464 Interpretive Statements Normal sinus rhythm Right bundle branch block Abnormal ECG Electronically Signed On 09-29-2017 23:34:40 CDT by Sourav Damian MD Performing Organization Address City/State/Zipcode Ph one Number INTERFACE SYSTEM INTERFACE SYSTEM Refer to clinic/hospital department documented in this encounter Visit Diagnoses Diagnosis Chest pain, unspecified type documented in this encounter Administered Medications Action Date Dose Rate Site Medication Order MAR Action 10/03/2017 9:00 PM CDT 80 mg atorvastatin (LIPITOR) tablet 80 mg Given 80 mg, Oral, DAILY AT BEDTIME, First dose on Tue09/29/17 at 2100, Until Discontinued, Routine 80 mg Given 10/02/2017 8:46 PM CDT 80 mg Given 10/01/2017 9:23 PM CDT dextrose 5 % in water 250 mL flush bag 25 mL 25 mL, IV, SEE ADMIN INSTRUCTIONS, Starting Tue09/29/17 at 1819, Until Tue10/04/17 at 1551, Routine dextrose 5% infusion IV, at 40 mL/hr, SEE ADMIN INSTRUCTIONS , Starting Tue10/02/17 at 1043, Until Tue10/04/17 at 1551, Routine dextrose 50% (D50) syringe 12.5 Gram 12.5 Gram, IV, SEE ADMIN INSTRUCTIONS, Starting Tue10/02/17 at 1043, Until Tue10/04/17 at 1551, Routine dextrose 50% (D50) syringe 25 Gram 25 Gram, IV, SEE ADMIN INSTRUCTIONS, Starting Tue10/02/17 at 1043, Until Tue10/04/17 at 1551, Routine 10/04/2017 8:33 AM CDT 60 mg DULoxetine (CYMBALTA) capsule 60 mg Given 60 mg, Oral, TWO TIMES DAILY, First dos e on Tue09/29/17 at 2100, Until Discontinued, Routine 60 mg Given 10/03/2017 9:00 PM CDT 60 mg Given 10/03/2017 8:32 AM CDT 10/03/2017 8:40 AM CDT 1 Puff fluticasone-vilanterol (BREO ELLIPTA) Given 200-25 mcg/dose inhaler 1 Puff 1 Puff, Inhalation, DAILY RESPIRATORY, First dose on Tue09/30/17 at 0800, Franci yepez Discontinued, Routine 1 Puff Given 10/02/2017 8:25 [...] at 1043, Until Tue10/04/17 at 1551, Routine 10/03/2017 4:40 PM CDT 500 Units Operativ e Site heparin, porcine lock flush (pf) 100 Given unit/mL injection INTRA-PROCEDURE PRN, Starting Tue10/03/17 at 1640, Until Tue10/03/17 at 1755, Routine, Intra-op 10/02/2017 10:59 AM CDT 10 mg hydrALAZINE (APRESOLINE) 20 mg/mL Given injection 10 mg 10 mg, IV, EVERY 6 HOURS PRN, Starting María Elena 09/29/17 at 1537, Until Tue10/04/17 at 1551, Blood Pressure, SBP>160, Routine 10/03/2017 11:17 PM CDT 10 Units Arm, Rig ht insulin glargine (LANTUS) injection 10 Given Units 10 Units, subCUT, DAILY AT BEDTIME, First dose on Tue10/02/17 at 2100, Franci l Discontinued, Routine 10 Units Arm, Right Upper Given 10/02/2017 9:24 PM CDT 10/04/2017 6:39 AM CDT 6 Units Arm, Rig ht insulin lispro (HumaLOG) injection 6 Given Units 6 Units, subCUT, THREE TIMES DAILY WITH MEALS, First dose on Tue18 at 1200, Until Discontinued, Routine 6 Units Arm, Right Given 10/03/2017 11:59 AM CDT 6 Units Arm, Right Given 10/02/2017 5:39 PM CDT 10/04/2017 12:43 PM CDT 3 mL ipratropium-albuterol (DUONEB) 0.5 mg-3 Given mg(2.5 mg base)/3 mL inhalation solutio n 3 mL 3 mL, Inhalation, EVERY 1 HOUR PRN RESPIRATORY, Starting María Elena 09/29/17 at 1532, Until Tue10/04/17 at 1551, Shortness of Breath, Routine 3 mL Given 10/04/2017 4:34 AM CDT 3 mL Given 10/03/2017 6:42 PM CDT 10/02/2017 11:59 PM CDT 40 mL/hr lactated Ringers solution New Bag IV, at 75 mL/hr, CONTINUOUS, Starting Tue10/03/17 at 0000, Until Tue10/04/17 at 1551, Routine 10/04/2017 6:05 AM CDT 75 mcg levothyroxine (SYNTHROID) tablet 75 mcg Given 75 mcg, Oral, DAILY EARLY, First dose o n 09/30/17 at 0600, Until Discontinued , Routine 75 mcg Given 10/03/2017 6:09 AM CDT 75 mcg Given 10/02/2017 6:24 AM CDT 10/03/2017 4:41 PM CDT 15 mL Operativ e Site lidocaine PF 1 % (XYLOCAINE MPF) Given injection INTRA-PROCEDURE PRN, Starting Tue10/03/17 at 1641, Until Tue10/03/17 at 1755, Routine, Intra-op 10/03/2017 8:32 AM CDT 20 mg lisinopril (PRINIVIL) tablet 20 mg Given 20 mg, Oral, DAILY, First dose on María Elena 09/29/17 at 1545, Until Discontinued, Routine 20 mg Given 10/02/2017 8:23 AM CDT 20 mg Given 10/01/2017 8:38 AM CDT 10/04/2017 8:33 AM CDT 500 mg methocarbamol (ROBAXIN) tablet 500 mg Given 500 mg, Oral, FOUR TIMES DAILY, First dose on 10/01/17 at 0900, Until Discontinued, Routine 500 mg Given 10/03/2017 9:00 PM CDT 500 mg Given 10/03/2017 6:50 PM CDT 10/04/2017 6:04 AM CDT 10 mg morphine (ROXANOL) oral concentrate 10 Given mg 10 mg, Oral, EVERY 6 HOURS, First dose on Tue09/29/17 at 1800, Until Discontinued, Routine 10 mg Given 10/03/2017 11:52 PM CDT 10 mg Given 10/03/2017 6:48 PM CDT 10/04/2017 8:40 AM CDT 4 mg morphine 4 mg/mL injection 4 mg Given 4 mg, IV, EVERY 3 HOURS PRN, Starting Tue10/02/17 at 0900, Until Tue10/04/17 at 1551, Pain [...] 40 mg Given 10/02/2017 6:24 AM CDT 10/04/2017 8:32 AM CDT 17 Grams polyethylene glycol (MIRALAX) packet 17 Given Gram 17 Gram, Oral, TWO TIMES DAILY, First dose on Tue10/02/17 at 0900, Until Discontinued, Routine 17 Grams Given 10/03/2017 8:38 AM CDT 17 Grams Given 10/02/2017 9:10 AM CDT 10/04/2017 8:33 AM CDT 1 Tablet sennosides-docusate sodium (SENNA-S) Given 8.6-50 mg per tablet 1 Tablet 1 Tablet, Oral, TWO TIMES DAILY, First dose on Tue10/02/17 at 0900, Until Discontinued, Routine 1 Tablet Given 10/03/2017 8:32 AM CDT 1 Tablet Given 10/02/2017 8:46 PM CDT sodium chloride 0.9 % 250 mL flush bag 25 mL 25 mL, IV, SEE ADMIN INSTRUCTIONS, Starting [facility] 09/29/17 at 1819, Until Tue10/04/17 at 1551, Routine 10/03/2017 4:08 PM CDT sodium chloride 0.9% infusion Continue IV, at 30 mL/hr, CONTINUOUS, Starting from Pre-Op 10/03/17 at 1445, Until Tue10/04/17 at 1551, Stat 30 mL/hr New Bag 10/03/2017 2:40 PM CDT 10/04/2017 8:34 AM CDT 10 mL sodium chloride flush injection 10 mL Given 10 mL, IV, EVERY 12 HOURS, First dose o n [facility] 09/29/17 at 2100, Until Discontinued , Routine 10 mL Given 10/03/2017 10:05 PM CDT 10 mL Given 10/02/2017 8:46 PM CDT 10/04/2017 4:46 AM CDT 5 mL sodium chloride flush injection 5 mL Given 5 mL, IV, SEE ADMIN INSTRUCTIONS, Starting [facility] 09/29/17 at 1819, Until Tue10/04/17 at 1551, [...] for t he patient 06/07/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
--- OUTSIDE RECORDS SUMMARY | 2019-09-01 14:00 | XMS REPORT | Encounter Summary ---
Author Author [facility], Jah Garcia, [place], [place], 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 Protocols used: [facility] ANSW[facility]ING SERV[facility] Patient has already been scheduled a TCM appt within the time frame. NOC added a ppt to appt desk. 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
--- OUTSIDE RECORDS SUMMARY | 2019-09-01 14:00 | XMS REPORT | Encounter Summary ---
Author Author [facility], [place], [place] Organization [facility] Jah Garcia, [place], [place], [place] Norma Address Unknown Phone Unavailable Care Team Providers Care Delinquency Counselor Name Role Phone Jose CoronaKristie DO PCP Reason for Visit * Auth/Cert Referred By Contact Referred To Contact Status Reason Specialty Diagnoses / Procedures Jo 7 Cardiac Medical Telemetry [address] [place] [address] Multi Specialty Diagnoses Chest Pain Encounter Details Care Team Description Date Type Department Haider Mills MD [address] [place] [address] Jona Bravo MD [address] [place] [address] 10/03/2017 Anesthesia [facility] in Event Operating Room [address] [place] [address] Anesthesia Record Responsible Anesthesiologist Anesthesia Start Time Anesthesi a Stop Time Procedure Name Haider Mills MD 10/03/17 1608 10/03/17 1913 CATHETER VENOUS ACCESS REMOVAL (Left Groin) Date Time Event Comment 1041 Intended 2018 Opioids 1443 AN Equip Check Anesthesia equipmen t and materials checked in accordance with local policy. 1608 An Start 1609 An Start Data 1609 Pre-Induction Immediate pre-induc tion anesthetic assessment performed. Vital signs as noted on graphic. 1618 An Induction 1622 An LMA 1622 Anesthesia Ready 1755 Supraglottic Spontaneous respira tions. LMA discontinued without difficulty. Oropharynx Removed suctioned as indicated. 175 an stop data 191 An Stop 1022 Follow-up 2018 Complete Meds Name Total fentaNYL (SUBLIMAZE) PF 50mcg/mL 100 mcg injection propofol (DIPRIVAN) 10mg/mL injection 150 mg lidocaine PF (XYLOCAINE MPF) 2% 2.5 mL injection ceFAZolin (ANCEF) 1000 mg vial 2,000 mg ePHEDrine 50 mg/mL injection 50 mg atropine 1 mg/mL injection 0.4 mg phenylephrine 100 mcg/mL injection 400 mcg phenylephrine (LIAM-SYNEPHRINE) 10 mg in 1.74 mg sodium chloride 0.9% 250 mL infusion sodium chloride 0.9% infusion 0 mL * Name Sevoflurane % Desflurane % Sevoflurane Desflurane O2 N2O Inspired N2O O2 * No blood administrations on file. Removal Type Details Placement 10/04/17 1146 by Francine Kumar RN Peripheral Pre-Hospital Start: No; Orientation: 0 10/02/172119 by COLLINS Medrano Proximal, Left; Location: Arm; Device: NANI Loredo Angiocath; Gauge: 22 gauge; Needle Length: 1.25 in length; Insertion Attempts: 3; Patient Tolerance: tolerated well 10/03/17 175 by Miles Metzger CRNA Supraglott Mask Taz: ventilated by mask; Type: LMA ; 10/03/17 1622 by brendan Villareal Airway Size: 4; Attempts: 1; Confirmation: Andrew cordero CRNA satisfactory chest rise, SAO2, end tida l CO2 10/05/17 0146 by PROVIDER, DISCHARGE PAT IENT Incision 10/03/17; 1745; surgical incision; Left ; 10/03/17 1745 by kayli Enriquez; 10/05/17; 0146 Mounika Jones RN documented in this encounter Social History Date Tobacco Use Types Packs/Day [...] history available. documented as of this encounter OR Notes * Anesthesia Post-Op Follow-up Note - Meet Busby CRNA - 10/04/2017 10:23 AM CDT POST ANESTHESIA CARE NOTE Blood pressure 109/62, pulse 77, temperature 36.8 C, temperature source Oral, resp. rate 18, height 5' 7" (1.702 m), weight 67.8 kg (149 lb 7.6 oz), SpO2 95 % , not currently . Oxygen saturation and respiration adequate. O2 per nasal canula. Stable cardiovascular status. Adequate hydration. Normothermic. Pain Controlled. No anesthesia complications noted. Meet Busby CRNA * Anesthesia Handoff - Miles Metzger CRNA - 10/03/2017 7:13 PM CDT Post-Anesthetic transfer of care report elements to appropriate post-anesthesia recovery environment completed in accordance with procedure. I completed my handoff to the receiving nurse during which we: 1. Identified the patient 2. Identified the responsible provider 3. Reviewed the pertinent medical history 4. Discussed the surgical course 5. Reviewed intra-op anesthesia management and issues during anesthesia 6. Set expectations for post-procedure period 7. Allowed opportunity for questions and acknowledgement of understanding. Vital Signs: BP: 123/82 (10/03/2017 6:46 PM) Pulse: 87 (10/03/2017 6:46 PM) Heart Rate: 97 bpm (10/03/2017 6:15 PM) Temp: 35.7 C (10/03/2017 5:59 PM) Resp: 15 (10/03/2017 6:42 PM) SpO2: 94 % (10/03/2017 6:46 PM) 7:13 PM Miles Metzger CRNA * Anesthesia Postprocedure Evaluation - Haider Mills MD - 10/03/2017 5:15 PM CDT Post Anesthesia Evaluation Vitals: BP 123/82 (BP Location: Right arm, Patient Position (BP): Supine) | Pu lse 87 | Temp (!) 35.7 C (Temporal) | Resp 15 | Ht 5' 7" (1.702 m) | Wt 67 .8 kg (149 lb 7.6 oz) | SpO2 94% | ? No | BMI 23.41 kg/m Pain Rating: Pain Rating: Rest: 9 (10/03/17 1843) Pain Rating: Activity: 6 (10/03/17 1815) Nausea/Vomiting: no nausea and no vomiting Post-Op hydration: well hydrated Respiratory function: no respiratory symptoms Airway patency: normal Cardiovascular function: Normal - Regular rate and rhythm Mental status, LOC: 0=alert; keenly responsive Patient participated in evaluation: yes Unanticipated Events: no Haider Mills MD * Anesthesia Preprocedure Evaluation - Haider Mills MD - 10/02/2017 10:43 AM CDT Relevant Problems (+) Acute exacerbation of chronic obstructive pulmonary disease (COPD) (+) H/O small bowel obstruction (+) Other sleep apnea Anesthesia Evaluation Patient summary reviewed and Nursing notes reviewed Airway Mallampati: II TM distance: >3 FB Neck ROM: full Dental (+) upper dentures Pulmonary breath sounds clear to auscultation (+) COPD, asthma, shortness of breath, sleep apnea (BIPAP), decreased breath alonso nds, (-) pneumonia, recent URI ROS comment: Smoker 1 ppd x 25 yrs O2--8 liters via BiPAP qhs CXR 09/30/2017 History: Line placement. AP upright chest: Comparison 09/29/2017. No visualized new supportive tube or cat heter. Clinical correlation recommended. Small right pleural fluid collection un changed. Catheter projected over the region of the junction of the inferior vena cava and right atrium unchanged, entering f rom femoral access. CONCLUSION: 1. No new supportive tube or catheter. Clinical correlation advised. 2. Small right pleural fluid collection unchanged. 3. 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 -No infarct or ischemic segmental pattern. -Normal contractility/wall motion. -No left ventricular cavity enlargement. Cardiolite study otherwise within normal limits (WNL). Neuro/Psych (+) headaches, psychiatric history (anxiety, depression) (-) seizures, neuromuscular disease, TIA, CVA Comments: Chronic pain syndrome with narcotic dependence GI/Hepatic/Renal (+) GERD well controlled, chronic renal disease CRI, (-) hiatal hernia, PUD, hepatitis, liver disease, bowel prep Endo/Other (+) hypothyroidism, blood dyscrasia (hypercoagulable), (-) diabetes mellitus, hyperthyroidism, arthritis Comments: Lupus with hypercoagulable state Abdominal - normal exam Anesthesia History No history of anesthetic complications, no history of difficult intubation, no h istory of malignant hyperthermia, no history of PONV and no pseudocholinesterase deficiency. Other findings: Results for SOPHIA HAWKINS ( ) as of 10/02/2017 1 0:48 10/02/2017 03:52 WBC: 8.3 RBC: 3.76 (L) HEMOGLOBIN: 12.6 HEMATOCRIT: 38.7 MCV: 102.9 (H) MCH: 33.5 MCHC: 32.6 PLATELETS: 137 (L) MPV: 10.5 RDW: 13.2 RDW-STDEV: 49.3 (H) NEUTROPHILS: 63 LYMPHOCYTES: 29 MONOCYTES: 6 EOSINOPHILS: 1 BASOPHILS: 0 IMMATURE GRANULOCYTES: 1 NEUTROPHIL ABSOLUTE: 5.28 LYMPHOCYTE ABSOLUTE: 2.37 MONOCYTE ABSOLUTE: 0.48 EOSINOPHIL ABSOLUTE: 0.08 BASOPHILS ABSOLUTE: 0.03 IMMATURE GRANULOCYTES ABSOLUTE: 0.08 SODIUM: 140 POTASSIUM: 4.2 CHLORIDE: 100 CO2: 30 (H) CALCIUM: 9.0 BUN: 21 (H) CREATININE: 0.69 GFR: >60 GFR, : >60 GLUCOSE: 217 (H) TOTAL PROTEIN: 6.1 (L) ALBUMIN: 3.6 (L) BILIRUBIN TOTAL: 0.4 ALKALINE PHOSPHATASE: 96 AST: 11 ALT: 12 ANION GAP: 10 Anesthesia Plan ASA 3 General (MAC vs GA (lma)) Intravenous induction NPO status: NPO after MN discussed. Anesthetic plan and risks discussed with Patient. Plan discussed with Nurse Chemical Dependency Attendant. Post-op Pain Control Plan to use Per surgeon for post-op pain control. Plan for postoperative opioid use Smoking Compliance Patient did not smoke on day of surgery documented in this encounter Miscellaneous Notes * Addendum Note - Meet Busby CRNA - 10/04/2017 10:24 AM CDT Addendum created 10/04/17 1024 by Meet Busby CRNA Anesthesia Event edited, Sign clinical note documented in this encounter Plan of Treatment Not on filedocumented as of this encounter Visit Diagnoses Not on filedocumented in this encounter Administered Medications Action Date Dose Rate Site Medication Order MAR Action 10/03/2017 4:37 PM CDT 0.4 mg atropine injection Given INTRA-PROCEDURE PRN, Starting 10/03/17 at 1637, Until Tue10/03/17 at 1913, Routine, Anesthesia Intra-op 10/03/2017 4:28 PM CDT 2,000 mg ceFAZolin (ANCEF,KEFZOL) vial Given INTRA-PROCEDURE PRN, Starting 10/03/17 at 1628, Until Tue10/03/17 at 1913, Routine, Anesthesia Intra-op 10/03/2017 4:34 PM CDT 20 mg ePHEDrine injection Given INTRA-PROCEDURE PRN, Starting 10/03/17 at 1628, Until 10/03/17 at 1913, Routine, Anesthesia Intra-op 15 mg Given 10/03/2017 4:31 PM CDT 15 mg Given 10/03/2017 4:28 PM CDT 10/03/2017 4:18 PM CDT 100 mcg fentaNYL PF (SUBLIMAZE) 50 mcg/mL Given injection INTRA-PROCEDURE PRN, Starting 10/03/17 at 1618, Until Tue10/03/17 at 1913, Pain (See admin instructions), Routine, Anesthesia Intra-op 10/03/2017 4:18 PM CDT 2.5 mL lidocaine PF 2 % (XYLOCAINE MPF) Given injection INTRA-PROCEDURE PRN, Starting 10/03/17 at 1618, Until Tue10/03/17 at 1913, Other (See Comment), Routine, Anesthesia Intra-op 10/03/2017 5:05 PM CDT 0.2 mcg/kg/min 20.3 mL/hr phenylephrine (LIAM-SYNEPHRINE) 10 mg in New Bag sodium chloride 0.9% 250 mL infusion INTRA-PROCEDURE CONTINUOUS PRN, Startin g 10/03/17 at 1705, Until Tue10/03/17 at 1913, Anesthesia Intra-op 10/03/2017 5:01 PM CDT 100 mcg phenylephrine 1 mg/10 mL (100 mcg/mL) Given injection INTRA-PROCEDURE PRN, Starting 10/03/17 at 1635, Until Tue10/03/17 at 1913, Routine, Anesthesia Intra-op 100 mcg Given 10/03/2017 4:54 PM CDT 100 mcg Given 10/03/2017 4:49 PM CDT 10/03/2017 4:18 PM CDT 150 mg propofol (DIPRIVAN) injection Given INTRA-PROCEDURE PRN, Starting Tue10/03/17 at 1618, Until Tue10/03/17 at 1913, Anesthesia Intra-op 10/03/2017 4:08 PM CDT sodium chloride 0.9% infusion Continue IV, at 30 mL/hr, CONTINUOUS, Starting from Pre-Op 10/03/17 at 1445, Until 10/04/17 at 1551, Stat 30 mL/hr New Bag 10/03/2017 2:40 PM CDT documented in this encounter Additional Health Concerns Assessment Noted Time A Depression follow-up plan has been documented for t he patient 06/07/2017 12:05 PM CHIEF ENVIRONMENTAL COMMITMENT OFFICER documented as of this encounter
--- OUTSIDE RECORDS SUMMARY | 2019-09-01 14:00 | XMS REPORT | Encounter Summary ---
Author Author [facility], [place], [place] Norma Organization [facility] Garcia, [place], [place] Norma Address Unknown Phone Unavailable Care Team Providers Care Protection Officer Name Role Phone Jose Corona Ciaran DO PCP Reason for Visit * Reason Comments Surgery Encounter Details Care Team Description Date Type Department Emigdio Argueta MD 100 [facility] [address] [place] [address] 09/30/2017 Nurse Only [facility] [place] [address] [facility] [address] [place] [address] Social History Date Tobacco Use [...] as of this encounter Progress Notes * Jacquelyn Garcia - 09/30/2017 1:52 PM CDT Aye'd procedure for 10/03/[address] Argueta' request. documented in this encounter Plan of Treatment Not on filedocumented as of this encounter Visit Diagnoses Not on filedocumented in this encounter Additional Health Concerns Assessment Noted Time A Depression follow-up plan has been documented for t he patient 06/07/2017 12:05 PM BUGGY RUNNER documented as of this encounter
--- OUTSIDE RECORDS SUMMARY | 2019-09-01 14:01 | XMS REPORT | Encounter Summary ---
Author Author [facility], [place], [place], [place], [place] Areas Organization [facility], [place], [place], [place], [place] Areas Address Unknown Phone Unavailable Care Team Providers Care Prepared Foods Service Team Member Name Role Phone PCP Unavailable Encounter Details Care Team Description Date Type Department Rayna Gao MD [address] [place] [phone] 08/05/2017 Abstract [facility] Family Medicine [address] [facility] [address] [place] [phone] Social History Date Tobacco Use Types Packs/Day [...] as of this encounter Plan of Treatment Not on filedocumented as of this encounter Visit Diagnoses Not on filedocumented in this encounter Additional Health Concerns Assessment Noted Time A Depression follow-up plan has been documented for t paola patient 06/07/2017 12:05 PM WIRE TINNER documented as of this encounter
--- OUTSIDE RECORDS SUMMARY | 2019-09-01 14:01 | XMS REPORT | Encounter Summary ---
Author Author [facility], Jah Garcia, [place], [place], [facility] Organization [facility], Jah Garcia, [place], [place], [place] Norma Address Unknown Phone Unavailable Care Team Providers Care Alterations Sewer Name Role Phone PCP Unavailable Reason for Visit * Reason Comments Hypertension 2 month F/U Encounter Details Care Team Description Date Type Department Rayna Gao MD [address] [place] [address] [phone] VERONICA (generalized anxiety disorder) (Prim salome Dx); Episode of recurrent major depressive disorder, unspecified depression episode severity; HTN (hypertension), benign; Chronic pain syndrome 08/03/2017 Office Visit [facility] Family Medicine [address] [place] [address] [address] [place] [phone] Social History Date Tobacco Use Types Packs/Day [...] Signs Reading Time Taken Comments Vital Sign 136/88 08/03/2017 3:43 PM CDT Blood Pressure 60 08/03/2017 3:43 PM CDT Pulse 36.2 C (97.2 F) 08/03/2017 3:43 PM CDT Temperature 20 08/03/2017 3:43 PM CDT Respiratory Rate 95% 08/03/2017 3:43 PM CDT Oxygen Saturation - - Inhaled Oxygen Concentration 67.9 kg (149 lb 9.6 oz) 08/03/2017 3:43 PM CDT Weight 171.5 cm (5' 7.5") 08/03/2017 3:43 PM CDT Height 23.08 08/03/2017 3:43 PM CDT Body Mass Index documented in this encounter Progress Notes * Rayna Gao MD - 08/03/2017 4:43 PM CDT HISTORY OF PRESENT ILLNESS Sophia Hawkins, a 51 y.o. female presents with a Chief Complaint of Hypertensio n (2 month F/U ) Subjective HPI Patient presents today for follow-up. This is our second encounter with this pat ient. Recently established with us 2 months ago -in May. Patient was not cooperative during the encounter. When entering, patient states that she will no longer be taking her medications because she feels like her pro viders are "casting her aside." When asked to elaborate, she states that she has mammogram results that have not been followed up on. States she has been follow ed by a cancer doctor in [place] for 7 yrs and was told she will have to wait until the nurse practitioner comes back and will discuss about it. No records of above stated problem on file. States she also has a "mass on the left side of the body" - state she has been e valuated by Dr. Urbina and apparently referred her to [place]. She says that these doctors are killing her and killed her . She says the only person who ever cared about her was her now- and states th at she wishes to be reunited with him. Hx of chronic pancreatitis. She sees pain mgt - states she is on Morphine sulfate and oxycodone. Past medical, surgical, social, and family history have been reviewed as well as current medications. REVIEW OF SYSTEMS Review of Systems Constitutional: Negative for fever. HENT: Negative for congestion. Respiratory: Negative for cough and shortness of breath. Psychiatric/Behavioral: Positive for agitation and behavioral problems. Objective PHYSICAL EXAM BP 136/88 | Pulse 60 | Temp 97.2 F (36.2 C) (Temporal) | Resp 20 | Ht 5' 7.5" (1.715 m) | Wt 67.9 kg (149 lb 9.6 oz) | SpO2 95% | BMI 23.08 kg/m Physical Exam Psychiatric: Does not have direct eye contact with interviewer, somewhat irritable and demario with conversation at times. Nursing note and vitals reviewed. Procedures Assessment ASSESSMENT and PLAN: Sophia was seen today for hypertension. Diagnoses and all orders for this visit: VERONICA (generalized anxiety disorder) Episode of recurrent major depressive disorder, unspecified depression episode s everity HTN (hypertension), benign Chronic pain syndrome - Attempted to redirect patient to how we could help her today, she became angry and said that we didn't care about her either. It was impossible to elicit her concerns other than her complaints about other providers which was all accusator y and with great animosity. - Attempted to address the mammogram situation, telling the patient that we can refer her to a new provider. She became more agitated and complaining that we t oo were pushing her off to other providers. Of note, we do not have copy of her mammogram. -She brought up wanting to [facility]. Patient was asked a bout depression and suicidal thoughts. Patient denied suicidality , raised her v oice and said 'I am not suicidal". She has been referred to psychiatry but did not follow through. We suggested referring her again to a psychiatry to help with her psych conditio ns and stress at home. She once again became angry at our suggestion. She accuse d us of not caring about her. We told her that was not the case as we would be m ore than happy to address her concerns today, but if she would like another prov ider whom she could have a better connection with, that we understood. She kristie nued with accusatory statements and said that there was no other point to this v isit today. We agreed and recommended she find a provider that would better addr ess her needs. documented in this encounter Plan of Treatment Not on filedocumented as of this encounter Visit Diagnoses Diagnosis VERONICA (generalized anxiety disorder) - Pr imary Generalized anxiety disorder Episode of recurrent major depressive d isorder, unspecified depression episode severity HTN (hypertension), benign Essential hypertension, benign Chronic pain syndrome documented in this encounter Additional Health Concerns Assessment Noted Time A Depression follow-up plan has been documented for laisha guevara patient 06/07/2017 12:05 PM CASH APPLICATIONS CLERK documented as of this encounter
--- OUTSIDE RECORDS SUMMARY | 2019-09-01 14:01 | XMS REPORT | Encounter Summary ---
Author Author [facility], [place], [place], [place], [place] Areas Organization [facility], [place], [place], [place], [place] Areas Address Unknown Phone Unavailable Care Team Providers Care Computer Language Coder Name Role Phone Rayna Gao MD PCP Encounter Details Care Team Description Date Type Department Rayna Gao MD [address] [place], [place] [phone] 07/29/[address] [facility] Family Medicine [address] [facility] [address] [place] [phone] Social History Date Tobacco Use Types Packs/Day [...] for t paola patient 06/07/2017 12:05 PM FRONTLOAD DRIVER documented as of this encounter
--- OUTSIDE RECORDS SUMMARY | 2019-09-01 14:01 | XMS REPORT | Encounter Summary ---
Author Author [facility], [place], [place], [place], [place] Areas Organization [facility], [place], [place], [place], [place] Areas Address Unknown Phone Unavailable Care Team Providers Care Ic Engineer Name Role Phone PCP Unavailable Encounter Details Care Team Description Date Type Department Rayna Gao MD [address] [place] [phone] 08/03/2017 Abstract [facility] Family Medicine [address] [facility] [address] [place] [address] [phone] Social History Date Tobacco Use Types Packs/Day [...] for t paola patient 06/07/2017 12:05 PM LEAD CASTER documented as of this encounter
--- OUTSIDE RECORDS SUMMARY | 2019-09-01 14:01 | XMS REPORT | Encounter Summary ---
Author Author [facility], Jah Garcia, [place], [place], Adrian Norma Organization [facility], Jah Garcai, [place], [place], Adrian Norma Address Unknown Phone Unavailable Care Team Providers Care Development Representative Name Role Phone Jose Corona Ciaran DO PCP Reason for Referral * Eval and Treat (Routine) Referred By Contact Referred To Contact Status Reason Specialty Diagnoses / Procedures Tushar Valente (Do Not Use)MD NO ADDRESS ON FILE [facility] [address] [place] [address] Closed Diagnoses Chronic pain syndrome Reason for Visit * Auth/Cert Referred By Contact Referred To Contact Status Reason Specialty Diagnoses / Procedures Jo 7 Cardiac Medical Telemetry [address] [place] [address] Multi Specialty Diagnoses COPD EXAC Encounter Details Care Team Description Date Type Department Aman Todd MD NO ADDRESS ON FILE Malachi Andrade MD [address] [facility] [place] [address] Tushar Valente (Do Not Use)MD NO ADDRESS ON FILE Acute exacerbation of chronic obstructiv e pulmonary disease (COPD) 09/18/2017 [facility] in 7 - Encounter Floor Cardiac Medic al 09/20/2017 Telemetry [address] [place] [address] Social History Date Tobacco Use [...] Signs Reading Time Taken Comments Vital Sign 166/76 09/20/2017 12:08 PM CDT Blood Pressure 64 09/20/2017 12:55 PM CDT Pulse 36.1 C (97 F) 09/20/2017 12:08 PM CDT Temperature 18 09/20/2017 12:55 PM CDT Respiratory Rate 94% 09/20/2017 12:55 PM CDT Oxygen Saturation - - Inhaled Oxygen Concentration 71.5 kg (157 lb 10.1 oz) 09/20/2017 3:15 AM CDT Weight 171.5 cm (5' 7.5") 09/18/2017 7:34 PM CDT Height 24.32 09/18/2017 7:34 PM CDT Body Mass Index documented in this encounter Discharge Summaries * Tushar Valente MD - 09/20/2017 3:46 PM CDT [facility] Medical Discharge Summary Sophia Hawkins 52 y.o. female 1965 CSN: [id number] Date of Admission: 09/18/2017 Date of Discharge: 09/20/2017 Discharging Physician: Tushar Valente MD PCP: Jose Corona DO LOS: 0 days Code Status at Discharge: Full Code Dispo: Home Labs and studies from this hospitalization needing follow up: none Follow-up: You must follow up with Jose Corona DO in 1 week Discharge Diagnoses and Relevant Hospital Course: Active Hospital Problems Diagnosis Steroid-induced hyperglycemia Lupus anticoagulant with hypercoagulable state Tobacco use Chronic pain syndrome Narcotic dependence H/O small bowel obstruction Other sleep apnea Acquired hypothyroidism Acute exacerbation of chronic obstructive pulmonary disease (COPD) Resolved Hospital Problems Diagnosis Date Resolved No resolved problems to display. Sophia Hawkins is a 52 y.o. female who was admitted to [facility] on 09/18/2017 and found to have a principle diagnosis of COPD exacerbation. HPI from H&P " Sophia Hawkins is a 52 y.o. White female a patient of No primary care provider on file. with past medical history of tobacco abuse, COPD, JUDI, HTN, chronic pain with narcotic dependence, hypothyroidism, presented to the [facility] ED on day of admission with a 1 day history of shortness of breath. Patient states she woke up this morning with shortness of breath. She admits to coughing up brown sputum. She continues to smoke about 1/2 - 1 pack cigarettes per day. She was offered admission at [facility], however, she declined stating her at that hospital and she would not stay there. She requested transfer to [facility]. Patient presents to [facility] with SaO2 95% on 3 liters without respiratory distress . She complains of pain all over and requests IV pain medication. " Hospital Course: Patient was treated for COPD with IV steroids, IV azithromycin 500 mg 3 doses, IV Rocephin 1. She was given small volume nebulizer treatment with bronchodil ators. Clinically she improved, and was able to wean off oxygen during the day w ith appropriate room air saturations. Review of outside chest x-ray and CT of chest showed no acute PE or acute pneumo unique identified. Discharge medications and new prescriptions: Medication List START taking these medications blood sugar diagnostic Strip Commonly known as: ONETOUCH VERIO To test fsbg three times daily. ICD 10: R73.9.. Signed by: BRIAN Kay Quantity: 100 Each Refills: 0 Blood-Glucose Meter Kit Commonly known as: ONETOUCH VERIO FLEX START To test blood glucose at home. ICD 10: R73.9. Signed by: BRIAN Kay Quantity: 1 Kit Refills: 0 cane Length of Need: 99 months. Weight: 71.5 kg (157 lb 10.1 oz) (09/20/17 0315) Ye ght: Wt Readings from Last 1 Encounters: 09/20/17 : 71.5 kg (157 lb 10.1 oz) He ight: Ht Readings from Last 1 Encounters: 09/18/17 : 5' 7.5" (1.715 m) Type: single cane. If over 250 lb, needs heavy duty. Signed by: Tushar Valente MD Quantity: 1 Each Refills: 0 fluticasone-vilanterol 200-25 mcg/dose Disk with Device Commonly known as: BREO ELLIPTA Take 1 Puff by inhalation daily. Signed by: Tushar Valente MD Quantity: 1 Inhaler Refills: 0 lancets 33 gauge Commonly known as: One Touch Delica To test fsbg three times daily. ICD 10 R73.9. Signed by: BRIAN Kay Quantity: 100 Each Refills: 0 phenazopyridine 95 mg Tablet Take 1 Tablet (95 mg) by mouth 3 times daily as needed for Pain. Signed by: Tushar Valente MD Quantity: 30 Tablet Refills: 0 predniSONE 20 mg tablet Commonly known as: DELTASONE 3 tablets daily for 3 days then 2 tablets daily for 3 days then 1 tablet daily f or 3 days then stop.. Signed by: Tushar Valente MD Quantity: 18 Tablet Refills: 0 CHANGE how you take these medications ondansetron 4 mg Tablet, Rapid Dissolve Commonly known as: ZOFRAN ODT What changed: how much to take Place 2 Tablets (8 mg) under tongue every 8 hours as needed for Nausea/Emesis. Signed by: Tushar Valente MD Quantity: 30 Tablet Refills: 0 CONTINUE taking these medications ALBUTEROL INHALATION Refills: 0 BELBUCA [address] 75 mcg inside cheek 2 times daily. Signed by: Paul Pelletier MD Refills: 0 Generic drug: buprenorphine HCl COLACE 100 mg capsule Take 1 Cap by mouth 2 times daily. Refills: 0 Generic drug: docusate sodium diphenhydrAMINE 25 mg tablet Commonly known as: BENADRYL Take 25 mg by mouth every 6 hours as needed. Allergies Refills: 0 DULoxetine 60 mg Capsule, Delayed Release(E.C.) Commonly known as: CYMBALTA Take 60 mg by mouth 2 times daily . 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 Refills: 0 lisinopril 20 mg tablet Commonly known as: PRINIVIL Take 1 Tablet (20 mg) by mouth daily. Signed by: Rayna Gao MD Quantity: 90 Tablet Refills: 1 morphine 15 mg tablet Commonly known as: MS IR Take 15 mg by mouth every 4 hours as needed. breakthru pain Refills: 0 olopatadine 0.1 % solution Commonly known as: PATANOL Administer 1 Drop in both eyes 1 time daily as needed. Daily Prn allergies Refills: 0 omeprazole 20 mg Capsule, Delayed Release(E.C.) Commonly known as: PriLOSEC Take 20 mg by mouth daily. Refills: 0 timolol 0.5 % solution Commonly known as: TIMOPTIC Administer 1 Drop in left eye 2 times daily. Refills: 0 tiZANidine 4 mg Tablet Commonly known as: ZANAFLEX Take 4 mg by mouth every 6 hours as needed for Spasm. Refills: 0 XARELTO 20 mg Tablet Take 20 mg by mouth daily. Refills: 0 Generic drug: rivaroxaban Where to Get Your Medications These medications were sent to [facility], [facility] [address] [facility], [facility] [address], [facility] [address] blood sugar diagnostic Strip Blood-Glucose Meter Kit fluticasone-vilanterol 200-25 mcg/dose Disk with Device ipratropium-albuterol 0.5 mg-3 mg(2.5 mg base)/3 mL Solution for Nebulization lancets 33 gauge ondansetron 4 mg Tablet, Rapid Dissolve phenazopyridine 95 mg Tablet predniSONE 20 mg tablet Information about where to get these medications is not yet available Ask your nurse or doctor about these medications cane Consultants: IP CONSULT TO CASE MANAGEMENT IP CONSULT TO HOME CARE NEEDS IP CONSULT TO SOCIAL WORK IP CONSULT TO PULMONARY REHAB Procedures performed: Discharge Lab Data: (Please note date of lab as some may have preceeded admissio n) Hospital Encounter on 09/18/17 (from the past 24 hour(s)) POC GLUCOSE Collection Time: 09/19/17 5:54 PM Result Value Ref Range POC GLUCOSE 357 (H) 70 - 105 mg/dL TOOL STRAIGHTENER NAME marin romero URINALYSIS WITH REFLEX MICROSCOPIC Collection Time: 09/19/17 6:27 PM Result Value Ref Range COLOR UA Yellow Pale to dark yellow CLARITY UA Clear Clear SPECIFIC GRAVITY UA 1.029 1.003 - 1.035 PH UA 6.0 5.0 - 8.0 LEUKOCYTE ESTERASE UA Negative Negative NITRITE UA Negative Negative PROTEIN UA Negative Negative GLUCOSE UA 3+ (A) Negative KETONES UA Negative Negative UROBILINOGEN UA <2.0 <2.0 mg/dL BILIRUBIN UA Negative Negative BLOOD UA 2+ (A) Negative WBC UA 0-2 0 - 2 /hpf RBC UA 6-10 (A) 0 - 2 /hpf BACTERIA UA Negative Negative /hpf EPITHELIAL CELLS, URINE 0-5 0 - 5 /hpf POC GLUCOSE Collection Time: 09/19/17 9:33 PM Result Value Ref Range POC GLUCOSE 205 (H) 70 - 105 mg/dL TOOL STRAIGHTENER NAME pedrorosmerymeng CBC WITH DIFFERENTIAL Collection Time: 09/20/17 4:47 AM Result Value Ref Range WBC 16.5 (H) 4.0 - 11.0 K/uL RBC 3.80 (L) 4.20 - 5.40 M/uL HEMOGLOBIN 12.6 12.5 - 16.0 g/dL HEMATOCRIT 38.3 37.0 - 47.0 % MCV 100.8 (H) 78.0 - 100.0 fL MCH 33.2 27.0 - 34.0 pg MCHC 32.9 31.0 - 37.0 g/dL RDW 12.4 12.0 - 15.0 % RDW-STDEV 45.9 37.1 - 48.7 fL PLATELETS 134 (L) 150 - 450 K/uL MPV 11.3 9.3 - 12.4 fL NEUTROPHILS 91 (H) 31 - 76 % LYMPHOCYTES 6 (L) 24 - 44 % MONOCYTES 2 2 - 11 % EOSINOPHILS 0 0 - 6 % BASOPHILS 0 0 - 2 % IMMATURE GRANULOCYTES 1 0 - 2 % NEUTROPHIL ABSOLUTE 15.02 (H) 1.80 - 7.70 K/uL LYMPHOCYTE ABSOLUTE 1.05 1.00 - 4.80 K/uL MONOCYTE ABSOLUTE 0.29 0.10 - 1.30 K/uL EOSINOPHIL ABSOLUTE 0.00 0.00 - 0.70 K/uL BASOPHILS ABSOLUTE 0.02 0.00 - 0.20 K/uL IMMATURE GRANULOCYTES ABSOLUTE 0.16 (H) 0.00 - 0.10 K/uL BASIC METABOLIC PANEL Collection Time: 09/20/17 4:47 AM Result Value Ref Range SODIUM 139 136 - 145 mmol/L POTASSIUM 4.5 3.5 - 5.1 mmol/L CHLORIDE 103 98 - 107 mmol/L CO2 27 22 - 29 mmol/L CALCIUM 9.4 8.6 - 10.0 mg/dL BUN 25 (H) 6 - 20 mg/dL CREATININE 0.80 0.51 - 0.95 mg/dL GLUCOSE 271 (H) 74 - 105 mg/dL GFR >60 >=60 mL/min/1.73 sq meter GFR, >60 >=60 mL/min/1.73 sq meter ANION GAP 9 4 - 13 mmol/L HEMOGLOBIN A1C Collection Time: 09/20/17 4:47 AM Result Value Ref Range HEMOGLOBIN A1C 6.1 (H) 4.8 - 5.9 % EST. AVG GLUCOSE, A1C 128 mg/dL Narrative HGB A1C INTERPRETATION NORMAL: <5.7% PRE-DIABETES: 5.7 - 6.4% DIABETES: 6.5% OR GREATER POC GLUCOSE Collection Time: 09/20/17 7:31 AM Result Value Ref Range POC GLUCOSE 230 (H) 70 - 105 mg/dL TOOL STRAIGHTENER NAME isabelle castro POC GLUCOSE Collection Time: 09/20/17 12:13 PM Result Value Ref Range POC GLUCOSE 214 (H) 70 - 105 mg/dL TOOL STRAIGHTENER NAME isabelle castro Discharge Exam: BP (!) 166/76 | Pulse 64 | Temp 97 F (36.1 C) | Resp 18 | Ht 5' 7.5" (1. 715 m) | Wt 71.5 kg (157 lb 10.1 oz) | SpO2 94% | BMI 24.32 kg/m Last documented weight: Weight: 71.5 kg (157 lb 10.1 oz) (09/20/17 0315) Physical Exam: Constitutional: See Vitals above. no acute distress. HEENT: No scleral icterus or conjunctival injection Cardiovascular:RRR without murmur, no edema Respiratory: no respiratory distress. Auscultation: Scattered wheezes that clear somewhat with coughing Gastrointensitnal: Abdomen Soft, Non-tender, Non-distended Musculoskeletal: No gross deformity noted Neurologic: No focal deficit noted Psychiatric: Alert and Oriented x 3. Normal judgement Discharge Condition: improving. Discharge Instructions: Diet: No restrictions Activity: activity as tolerated Special Instructions: -Take prednisone 3 tablets daily for 3 days then 2 tablets daily for 3 days then 1 tablet daily for 3 days then stop. Next dose is tomorrow morning with breakfa st. -Continue duoneb every 4-6 hours for then next 2-3 days, then every 4-6 hours as needed after that. -Otherwise, take medications as directed Continue home Trilogy/Oxygen at night Follow up: with Jose Corona DO in 7-10 days Follow up with Primary Care Provider or the Emergency room sooner if: fever, chi ll, nausea/vomiting, increased trouble breathing, increased pain or other concer ns Primary Emergency Contact: ROJAS FRANCESCA Guzman, Signed: Tushar Valente MD This discharge took less than 30 minutes of time to prepare CC. Jose Corona DO [address] [facility] [address] / [facility] [address] documented in this encounter Discharge Instructions * Instructions* Tushar Valente MD - 09/20/2017 Hospitalist Discharge Instructions Discharge Diagnoses Acute exacerbation of chronic obstructive pulmonary disease (COPD) Active Hospital Problems Diagnosis Steroid-induced hyperglycemia Lupus anticoagulant with hypercoagulable state Tobacco use Chronic pain syndrome Narcotic dependence H/O small bowel obstruction Other sleep apnea Acquired hypothyroidism Acute exacerbation of chronic obstructive pulmonary disease (COPD) Resolved Hospital Problems Diagnosis Date Resolved No resolved problems to display. Diet: No restrictions Activity: activity as tolerated Special Instructions: -Take prednisone 3 tablets daily for 3 days then 2 tablets daily for 3 days then 1 tablet daily for 3 days then stop. Next dose is tomorrow morning with breakfa st. -Continue duoneb every 4-6 hours for then next 2-3 days, then every 4-6 hours as needed after that. -Otherwise, take medications as directed Continue home Trilogy/Oxygen at night Follow up: with Jose Corona, DO in 7-10 days Follow up with Primary Care Provider or the Emergency room sooner if: fever, chi ll, nausea/vomiting, increased trouble breathing, increased pain or other concer ns Important notification concerning prescription medicine During your hospital stay, you were cared for by physicians in the [facility] program. At the time of your discharge [...] changing current medications. 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 DULoxetine (CYMBALTA) 60 Take 60 mg by [...] mouth 2 times daily. ALBUTEROL INHALATION 0 09/20/2017 09/21/2017 cane Length of 1 Each 0 Need: 99 months. Weight: 71.5 kg (157 lb 10.1 oz) (09/20/17 0315) Weight: Wt Readings from Last 1 Encounters: 09/20/17 : 71.5 kg (157 lb 10.1 oz) Height: Ht Readings from Last 1 Encounters: 09/18/17 : 5' 7.5" (1.715 m) Type: single cane. If over 250 lb, needs heavy duty. 09/20/2017 10/04/2017 ondansetron (ZOFRAN ODT) Place 2 30 Tablet 0 4 mg Tablet, Rapid Tablets (8 Dissolve mg) under tongue every 8 hours as needed for Nausea/Emesis . 09/20/2017 10/03/2017 phenazopyridine 95 mg Take 1 Tablet 30 Tablet 0 Tablet (95 mg) by mouth 3 times daily as needed for Pain. 09/20/2017 10/03/2017 predniSONE (DELTASONE) 20 3 tablets 18 Tablet 0 mg tablet daily for 3 days then 2 tablets daily for 3 days then 1 tablet daily for 3 days then stop.. 10/03/2017 tiZANidine (ZANAFLEX) 4 Take 4 mg by 0 mg Tablet mouth every 6 hours as needed for Spasm. 10/03/2017 olopatadine (PATANOL) 0.1 Administer 1 0 % OP solution Drop in both eyes 1 time daily as needed. Daily Prn allergies documented as of this encounter Progress Notes * Hillary Hwang RN - 09/20/2017 4:42 PM CDT Patient left in wheel chair with spouse via private car to home. * Hillary Hwang RN - 09/20/2017 4:36 PM CDT Gave patient discharge summary, went over medications, prescriptions given pt vo iced understanding. Patient had no questions at this time. * Hillary Hwang RN - 09/20/2017 4:18 PM CDT Flushed port with 20 ml of normal saline and heparin locked with 300 units of fatima. * Terrence Castro RN - 09/20/2017 2:37 PM CDT Cane ordered and DME notified. The patient is going to pick the cane up at [facility]. Terrence Castro, Electric Power Superintendent [phone] * Ana Yanez PA - 09/20/2017 11:32 AM CDT Sophia Hawkins is a 52 y.o. female who presents for consultation regarding her steroid induced hyperglycemia. SUBJECTIVE Sophia is admitted for acute exacerbation of COPD. She reports having DM several years ago but said she no longer does. Current A1c is 6.1%. Her home DM mediati ons include: none. She is currently feeling much better, denies any complaints except her current c hronic pain. Appetite is good. Glucose accordion reviewed. BG elevated over 200. Current hospital DM medication s are: Humalog per low-medium correction ac and Humalog per low correction hs. PAST MEDICAL & SURGICAL HISTORY Past Medical History: Diagnosis Date Anxiety Asthma [...] HX KNEE SURGERY HX TUMOR REMOVAL abdominal [place] ERCP W/SPHINCTEROTOMY/PAPILLOTOMY N/A 08/30/2014 CHOLANGIOPANCREATOGRAPHY RETROGRADE ENDOSCOPIC performed by Edilberto Urbina MD at [facility] ENDO AK ERCP,RMV F.B./CHANGE STENT N/A 08/30/2014 STENT REMOVAL performed by Edilberto Urbina MD at [facility] AK INSJ TUNNELED CTR VAD W/SUBQ PORT AGE 5 YR/> 10/08/2010 CATHETER VENOUS ACCESS PLACEMENT performed by APOLLO PINEDA at [facility] MOR MEDICATIONS Current Facility-Administered Medications: sodium chloride flush injection 10 mL, 10 mL, IV, See Admin Notes, Tushar Valente MD, 10 mL at 09/20/17 0446 insulin lispro (HumaLOG) variable dose injection, , subCUT, TID Meals, Mens e, Ana N, PA insulin lispro (HumaLOG) variable dose injection, , subCUT, Daily BEDTIME, Mense, Ana N, PA morphine (MS CONTIN) SR tablet 15 mg, 15 mg, Oral, ONCE, Radha Quesada MD morphine (ROXANOL) oral concentrate 15 mg, 15 mg, Oral, q 4 hour PRN, Tushar Fox MD, 15 mg at 09/20/17 1012 ipratropium-albuterol (DUONEB) 0.5 mg-3 mg(2.5 mg base)/3 mL inhalation virgen ution 3 mL, 3 mL, Inhalation, Resp q 6 hour, 3 mL at 09/20/17 0751 AND albut karin (PROVENTIL,VENTOLIN) inhalation solution 2.5 mg, 2.5 mg, Inhalation, Resp q 4 h PRN, Tushar Valente MD rivaroxaban (XARELTO) tablet 20 mg, 20 mg, Oral, Daily SUPPER, Bobby Valente MD, 20 mg at 09/19/17 1736 dextrose 5% infusion, , IV, See Admin Notes, Tushar Valente MD dextrose 50% (D50) syringe 12.5 Gram, 12.5 Gram, IV, See Admin Notes, Tushar Fox MD dextrose 50% (D50) syringe 25 Gram, 25 Gram, IV, See Admin Notes, Tushar Valente MD glucagon HCl 1 mg injection 1 mg, 1 mg, IM, See Admin Notes, Tushar Valente MD cefTRIAXone (ROCEPHIN) 1,000 mg in sodium chloride 0.9% 50 mL IVPB (MBP), 1 ,000 mg, IV, q 24 hour (daily), Tushar Valente MD, Last Rate: 100 mL/hr at 1014, 1,000 mg at 09/20/17 1014 phenazopyridine tablet 95 mg, 95 mg, Oral, TID PRN, Tushar Valente MD, 9 5 mg at 09/19/172021 [DISCONTINUED] insulin lispro (HumaLOG) variable dose injection, , subCUT, TID Meals, Tushar Valente MD, 5 Units at 09/20/17 0841 [DISCONTINUED] insulin lispro (HumaLOG) variable dose injection, , subCUT, Daily BEDTIME, Tushar Valente MD, 1 Units at 09/19/17 2134 azithromycin (ZITHROMAX) tablet 500 mg, 500 mg, Oral, q 24 hour, Anna Perdue sa, PA-C, 500 mg at 09/19/17 1505 methylPREDNISolone sodium succinate PF (SOLU-Medrol PF) injection 80 mg, 80 mg, IV, q 8 hour, Lorie Perdue PA-C, 80 mg at 09/20/17 0444 acetaminophen (TYLENOL) tablet 650 mg, 650 mg, Oral, q 6 hour PRN, Mario Perdue PA-C ondansetron (ZOFRAN ODT) tablet 4 mg, 4 mg, Oral, q 6 hour PRN, Prem Perdue PA-C, 4 mg at 09/19/17 0308 calcium as carbonate (TUMS) 500 mg (200 mg elemental) chewable tablet 400 m g, 400 mg, Oral, q 6 hour PRN, Lorie Perdue PA-C sennosides-docusate sodium (SENNA-S) 8.6-50 mg per tablet 1 Tablet, 1 Table t, Oral, BID, Lorie Perdue PA-C, 1 Tablet at 09/20/17 1013 polyethylene glycol (MIRALAX) packet 17 Gram, 17 Gram, Oral, Daily PRN OR bisacodyl (DULCOLAX) rectal suppository 10 mg, 10 mg, Rectal, Daily PRN, Lorie Perdue PA-C montelukast (SINGULAIR) 10 mg tablet 10 mg, 10 mg, Oral, Daily BEDTIME, Lorie Chen PA-C, 10 mg at 09/19/172021 guaiFENesin (MUCINEX) SR tablet 1,200 mg, 1,200 mg, Oral, q 12 hour (BID), Lorie Perdue PA-C, 1,200 mg at 09/20/17 1013 fluticasone-vilanterol (BREO ELLIPTA) 200-25 mcg/dose inhaler 1 Puff, 1 Puf f, Inhalation, Resp Daily, Lorie Perdue PA-C, 1 Puff at 09/20/17 0842 ondansetron (ZOFRAN ODT) tablet 4 mg, 4 mg, Sublingual, q 8 hour PRN, Lorie Perdue PA-C, 4 mg at 09/20/17 0010 diphenhydrAMINE (BENADRYL) tablet 25 mg, 25 mg, Oral, q 6 hour PRN, Cecelia Perdue PA-C hydrOXYzine HCl (ATARAX) tablet 50 mg, 50 mg, Oral, TID PRN, Lorie Perdue PA-C, 50 mg at 09/19/17 0058 olopatadine (PATANOL) 0.1 % ophthalmic solution 1 Drop, 1 Drop, Both Eyes, Daily PRN, Lorie Perdue PA-C docusate sodium (COLACE) capsule 100 mg, 100 mg, Oral, BID, Lorie Perdue PA-C, 100 mg at 09/20/17 1013 timolol (TIMOPTIC) 0.5 % ophthalmic solution 1 Drop, 1 Drop, Left Eye, BID, Lorie Perdue PA-C, 1 Drop at 09/20/17 1015 pantoprazole (PROTONIX) tablet 40 mg, 40 mg, Oral, Daily, Lorie Perdue P A-Dariel, 40 mg at 09/20/17 0619 DULoxetine (CYMBALTA) capsule 60 mg, 60 mg, Oral, BID, Lorie Perdue PA-C , 60 mg at 09/20/17 1013 tiZANidine (ZANAFLEX) tablet 4 mg, 4 mg, Oral, q 6 hour PRN, Lorie Perdue PA-C levothyroxine (SYNTHROID) tablet 75 mcg, 75 mcg, Oral, Daily EARLY, Cecelia Pedrue PA-C, 75 mcg at 09/20/17 0619 sodium chloride flush injection 5 mL, 5 mL, IV, BID, Aman Todd MD, 5 m L at 09/20/17 1013 sodium chloride flush injection 5 mL, 5 mL, IV, See Admin Notes, Steven Todd MD, 5 mL at 09/19/17 1253 sodium chloride 0.9 % 250 mL flush bag 25 mL, 25 mL, IV, See Admin Notes, Aman Anaya MD, 25 mL at 09/20/17 1015 ALLERGIES Allergies as of 09/18/2017 - Reviewed 09/18/2017 Allergen Reaction Noted Adhesive tape-silicones Rash 08/30/2014 Aspirin Unknown 07/24/2010 Codeine Unknown 07/24/2010 Compazine [prochlorperazine edisylate] Unknown 07/24/2010 Imitrex [sumatriptan succinate] Unknown 07/24/2010 Inapsine [droperidol] Unknown 07/24/2010 Reglan [metoclopramide] Anaphylaxis 08/27/2010 Minal-30 Unknown 07/24/2010 Toradol [ketorolac] Unknown 09/27/2010 FAMILY HISTORY Family History Problem Relation Age of Onset Heart Disease Father Cancer Mother Healthy Sister Healthy Brother SOCIAL HISTORY Social History Substance Use Topics Smoking status: Current Every Day Smoker Packs/day: 1.00 Years: 25.00 Types: Cigarettes Smokeless tobacco: Never Used Alcohol use No REVIEW OF SYSTEMS Constitutional: denies fevers, chills Eye: denies visual changes Ear, Nose, Mouth, Throat: denies nasal congestion, sore throat Respiratory: denies cough, shortness of breath Cardiovascular: denies chest pain Gastrointestinal: denies abdominal pain, n/v/d, constipation Genitourinary: denies dysuria, frequency, Integementary: denies skin changes Musculoskeletal: (+) chronic pain; denies: myalgia, neck pain, back pain Neurological: denies dizziness, focal weakness PHYSICAL EXAM General: NAD, appears stated age, obese body habitus HEENT: atraumatic, normocephalic, EOM intact Neck: no thyromegaly, no palpable nodules, no lymphadenopathy CV: RRR Chest: CTA bilaterally, normal effort Abdomen: soft, non-tender Extr: no edema Neuro: awake and alert x 3, no definable deficits Psych: normal conversation and eye contact Skin: warm, dry, no rashes to exposed skin DIAGNOSTIC DATA Labs and glucose accordion reviewed. ASSESSMENT AND PLAN 1.) Steroid inducted hyperglycemia - does not have meter or test strips at home - will send rx for this - she has been trained on insulin use so would benefit from a correction over 2 00 at discharge - increase Humalog correction to medium scale ac tid - increase Humalog hs correction to low-medium - will continue to monitor glucose accordion for further titrations [facility]RIAN [facility] Endocrinology * Mary Beth Lockwood RN - 09/19/2017 3:38 PM CDT [facility] FYI NOTE --pt is a current [facility] client with [facility] Dix [facility] [place] for Skilled Nurse visits. Home PT is not in place, as pt declines and will not p articipate--per [facility] staff. FollowingLexy HERNÁNDEZ RN [facility] liaison * Bonnie Hitchcock - 09/19/2017 1:16 PM CDT DC Plan: HOME Initial Discharge Planning Assessment completed. Care Management visited with patient, and discussed Care Management role and dis charge planning. Cultural needs identified/ language barriers: none Prior to admission, patient resided [place] with brother in law Next of kin/contact verified as Francesca Myles, Sister, Prior to admission, patient's functional level was independent. Home Health thro [facility] for port. PCP verified as Dr. Jose Corona Patient's insurance verified as Medicare and Medicaid DME:power chair, trilogy, O2 8L ([facility]), blood pressure, shower chair Plan to DC to: Home Transportation will be provided by: Sons Girlfriend or [employer] Prescription coverage yes Preferred Pharmacy [facility] Comments/Discharge Needs: none at this time. Care Management will continue to follow and assist as needed. Bonnie Hitchcock, Interactive Media Marketing Director Phone [phone] * Tushar Valente MD - 09/19/2017 8:55 AM CDT Admit Date: 09/18/2017 Hospital day: 2 Subjective: Patient continues to have ongoing abdominal pain-reports that it is poorly contr olled. She is on a buccal buprenorphine at home-reports that she has unreliable gut absorption. Breathing still SOB, similar to yesterday with ongoing wheezing. Reports that was diagnosed with recurrent kidney stones last week in clinic. 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 Last BM yesterday. She has chronic nausea but no vomiting . Reportedly last week she also had CT of chest to rule out PE, has had multiple DVT/PE as well as clotting of her superior vena cava waited to lupus anticoagul ant/hyperchromic state. She is chronically on Xarelto. ROS as noted above Current Facility-Administered Medications Medication Dose Route Frequency Provider Last Rate Last Dose morphine (MS CONTIN) SR tablet 15 mg 15 mg Oral ONCE Radha Quesada MD [COMPLETED] morphine (MS CONTIN) SR tablet 15 mg 15 mg Oral ONCE Kylee Quesada MD 15 mg at 09/19/17 0058 [COMPLETED] morphine 4 mg/mL injection 2 mg 2 mg IV ONCE Tushar Valente MD 2 mg at 09/19/17 1231 morphine (ROXANOL) oral concentrate 15 mg 15 mg Oral q 4 hour PRN Tushar Valente MD albuterol (PROVENTIL,VENTOLIN) inhalation solution 2.5 mg 2.5 mg Inhalation Resp q 4 h PRN Tushar Valente MD And ipratropium-albuterol (DUONEB) 0.5 mg-3 mg(2.5 mg base)/3 mL inhalation solu tion 3 mL 3 mL Inhalation Resp q 6 hour Tushar Valente MD rivaroxaban (XARELTO) tablet 20 mg 20 mg Oral Daily SUPPER Tushar Valente MD dextrose 5% infusion IV See Admin Notes Tushar Valente MD dextrose 50% (D50) syringe 12.5 Gram 12.5 Gram IV See Admin Notes Tushar Valente MD dextrose 50% (D50) syringe 25 Gram 25 Gram IV See Admin Notes Andrés Valente MD glucagon HCl 1 mg injection 1 mg 1 mg IM See Admin Notes Tushar Valente MD insulin lispro (HumaLOG) variable dose injection subCUT TID Meals Tushar Valente MD insulin lispro (HumaLOG) variable dose injection subCUT Daily BEDTIME Tushar Reveles MD [DISCONTINUED] morphine (MS CONTIN) SR tablet 30 mg 30 mg Oral q 12 hour (B ID) Tushar Valente MD azithromycin (ZITHROMAX) tablet 500 mg 500 mg Oral q 24 hour Lorie Perdue PA-C 500 mg at 09/18/17 1602 methylPREDNISolone sodium succinate PF (SOLU-Medrol PF) injection 80 mg 80 mg IV q 8 hour Lorie Perdue PA-C 80 mg at 09/19/17 0535 acetaminophen (TYLENOL) tablet 650 mg 650 mg Oral q 6 hour PRN Lorie Perdue PA-C ondansetron (ZOFRAN ODT) tablet 4 mg 4 mg Oral q 6 hour PRN Lorie Perdue PA-C 4 mg at 09/19/17 0308 calcium as carbonate (TUMS) 500 mg (200 mg elemental) chewable tablet 400 mg 400 mg Oral q 6 hour PRN Lorie Perdue PA-C sennosides-docusate sodium (SENNA-S) 8.6-50 mg per tablet 1 Tablet 1 Tablet Oral BID Lorie Perdue PA-C polyethylene glycol (MIRALAX) packet 17 Gram 17 Gram Oral Daily PRN Cecelia Perdue PA-C Or bisacodyl (DULCOLAX) rectal suppository 10 mg 10 mg Rectal Daily PRN Lorie Perdue PA-C montelukast (SINGULAIR) 10 mg tablet 10 mg 10 mg Oral Daily BEDTIME Cecelia Perdue PA-C 10 mg at 09/18/172037 guaiFENesin (MUCINEX) SR tablet 1,200 mg 1,200 mg Oral q 12 hour (BID) Lorie Perdue PA-C 1,200 mg at 09/19/17 0944 fluticasone-vilanterol (BREO ELLIPTA) 200-25 mcg/dose inhaler 1 Puff 1 Puff Inhalation Resp Daily Lorie Perdue PA-C 1 Puff at 09/19/17 0945 ondansetron (ZOFRAN ODT) tablet 4 mg 4 mg Sublingual q 8 hour PRN Rodriguez PA-C 4 mg at 09/18/17 1837 diphenhydrAMINE (BENADRYL) tablet 25 mg 25 mg Oral q 6 hour PRN Prem Perdue PA-C hydrOXYzine HCl (ATARAX) tablet 50 mg 50 mg Oral TID PRN Lorie Perdue PA -C 50 mg at 09/19/17 0058 olopatadine (PATANOL) 0.1 % ophthalmic solution 1 Drop 1 Drop Both Eyes Manjula ly PRN Lorie Perdue PA-C docusate sodium (COLACE) capsule 100 mg 100 mg Oral BID Lorie Perdue PA- C timolol (TIMOPTIC) 0.5 % ophthalmic solution 1 Drop 1 Drop Left Eye BID Bar Lorie douglas PA-C 1 Drop at 09/19/17 0947 pantoprazole (PROTONIX) tablet 40 mg 40 mg Oral Daily Lorie Perdue PA-C 40 mg at 09/19/17 0535 DULoxetine (CYMBALTA) capsule 60 mg 60 mg Oral BID Lorie Perdue PA-C 6 0 mg at 09/19/17 0944 tiZANidine (ZANAFLEX) tablet 4 mg 4 mg Oral q 6 hour PRN Lorie Perdue PA -C levothyroxine (SYNTHROID) tablet 75 mcg 75 mcg Oral Daily EARLY Prem Perdue PA-C 75 mcg at 09/19/17 0535 [COMPLETED] morphine 4 mg/mL injection 2 mg 2 mg IV ONCE Lorie Perdue PA -C 2 mg at 09/18/17 1459 [COMPLETED] SODIUM CHLORIDE 0.9 % INJECTION SYRINGE (CABINET OVERRIDE) 20 mL at 09/18/17 1500 [COMPLETED] SODIUM CHLORIDE 0.9 % INJECTION SYRINGE (CABINET OVERRIDE) 10 mL at 09/18/17 2041 sodium chloride flush injection 5 mL 5 mL IV BID Aman Todd MD 5 mL a t 09/19/17 0949 sodium chloride flush injection 5 mL 5 mL IV See Admin Notes Aman Todd MD 5 mL at 09/19/17 0535 sodium chloride 0.9 % 250 mL flush bag 25 mL 25 mL IV See Admin Notes Aman Todd MD [DISCONTINUED] ipratropium-albuterol (DUONEB) 0.5 mg-3 mg(2.5 mg base)/3 mL inhalation solution 3 mL 3 mL Inhalation Resp q 6 hour Lorie Perdue PA-C 3 mL at 09/19/17 0625 [DISCONTINUED] albuterol (PROVENTIL,VENTOLIN) inhalation solution 2.5 mg 2. 5 mg Inhalation Resp q 6 h PRN Lorie Perdue PA-C 2.5 mg at 09/18/17 2219 [DISCONTINUED] heparin injection 5,000 Units 5,000 Units subCUT q 8 hour Ba Lorie su PA-C 5,000 Units at 09/19/17 0535 [DISCONTINUED] buprenorphine HCl Film 75 mcg 75 mcg Buccal BID Lorie Perdue PA-C [DISCONTINUED] morphine (MS IR) tablet 15 mg 15 mg Oral q 4 hour PRN Lorie Perdue PA-C 15 mg at 09/19/17 0306 Objective: Patient Vitals for the past 8 hrs: BP Temp Temp src Pulse Resp SpO2 Weight 09/19/17 0819 (!) 143/63 98 F (36.7 C) Oral 66 18 94 % - 09/19/17 0625 - - - 68 16 - - 09/19/17 0353 125/58 98.4 F (36.9 C) Axillary (!) 52 20 97 % 70.8 kg (156 lb 1.4 oz) Intake/Output Summary (Last 24 hours) at 09/19/17 0959 Last data filed at 09/19/17 0819 Gross per 24 hour Intake 835 ml Output 0 ml Net 835 ml Hospital Encounter on 09/18/17 (from the past 24 hour(s)) EDUCATION ADVANCE DIRECTIVES - JOHN Collection Time: 09/18/17 2:04 PM Result Value Ref Range Education Name ADVANCE DIRECTIVES Education URL [email or web address] EDUCATION ACCESS CODE [id number] EDUCATION ISSUE DATE Sep 18, 2017 EDUCATION START DATE EDUCATION COMPLETED DATE EDUCATION EXPIRATION DATE Oct 18, 2017 EDUCATION MESSAGE EVENT Scheduled EDUCATION SMOKING CESSATION - THINKING ABOUT QUITTING SMOKING - JOHN Collection Time: 09/18/17 2:04 PM Result Value Ref Range Education Name SMOKING CESSATION - THINKING ABOUT QUITTING SMOKING Education URL [email or web address] EDUCATION ACCESS CODE [id number] EDUCATION ISSUE DATE Sep 18, 2017 EDUCATION START DATE EDUCATION COMPLETED DATE EDUCATION EXPIRATION DATE Oct 18, 2017 EDUCATION MESSAGE EVENT Scheduled CBC WITH DIFFERENTIAL Collection Time: 09/19/17 5:42 AM Result Value Ref Range WBC 13.4 (H) 4.0 - 11.0 K/uL RBC 3.92 (L) 4.20 - 5.40 M/uL HEMOGLOBIN 13.3 12.5 - 16.0 g/dL HEMATOCRIT 38.8 37.0 - 47.0 % MCV 99.0 78.0 - 100.0 fL MCH 33.9 27.0 - 34.0 pg MCHC 34.3 31.0 - 37.0 g/dL RDW 12.5 12.0 - 15.0 % RDW-STDEV 45.6 37.1 - 48.7 fL PLATELETS 146 (L) 150 - 450 K/uL MPV 10.8 9.3 - 12.4 fL NEUTROPHILS 90 (H) 31 - 76 % LYMPHOCYTES 8 (L) 24 - 44 % MONOCYTES 2 2 - 11 % EOSINOPHILS 0 0 - 6 % BASOPHILS 0 0 - 2 % IMMATURE GRANULOCYTES 1 0 - 2 % NEUTROPHIL ABSOLUTE 11.99 (H) 1.80 - 7.70 K/uL LYMPHOCYTE ABSOLUTE 1.06 1.00 - 4.80 K/uL MONOCYTE ABSOLUTE 0.25 0.10 - 1.30 K/uL EOSINOPHIL ABSOLUTE 0.00 0.00 - 0.70 K/uL BASOPHILS ABSOLUTE 0.01 0.00 - 0.20 K/uL IMMATURE GRANULOCYTES ABSOLUTE 0.08 0.00 - 0.10 K/uL BASIC METABOLIC PANEL Collection Time: 09/19/17 5:42 AM Result Value Ref Range SODIUM 136 136 - 145 mmol/L POTASSIUM 4.4 3.5 - 5.1 mmol/L CHLORIDE 98 98 - 107 mmol/L CO2 26 22 - 29 mmol/L CALCIUM 9.6 8.6 - 10.0 mg/dL BUN 24 (H) 6 - 20 mg/dL CREATININE 0.77 0.51 - 0.95 mg/dL GLUCOSE 236 (H) 74 - 105 mg/dL GFR >60 >=60 mL/min/1.73 sq meter GFR, >60 >=60 mL/min/1.73 sq meter ANION GAP 12 4 - 13 mmol/L Physical Exam: Constitutional: See Vitals above. no acute distress. HEENT: No scleral icterus or conjunctival injection Cardiovascular:RRR without murmur, no edema Respiratory: no respiratory distress. Auscultation: left mid and lower insp crac kles and scattered exp wheeze Gastrointensitnal: Abdomen Soft, mild diffuse abd ttp but more noted LUQ and epi gastric as well as suprapubic, no rebound or guarding Non-distended Musculoskeletal: No gross deformity noted Neurologic: No focal deficit noted Psychiatric: Alert and Oriented x 3. Normal judgement Assessment: Principal Problem: Acute exacerbation of chronic obstructive pulmonary disease (COPD) Active Problems: Tobacco use Chronic pain syndrome Overview: With narcotic dependence Narcotic dependence H/O small bowel obstruction Overview: Multiple times, requiring multiple surgeries with long-term TPN Other sleep apnea Overview: Wears 8 liters via ventimask with sleep. Acquired hypothyroidism Lupus anticoagulant with hypercoagulable state Plan: See orders. Principal Problem: Acute exacerbation of chronic obstructive pulmonary disease (COPD) -Arterial blood gas on admission at outside facility showed pH 7.4 with PCO2 of 40, however PaO2 of 57 -Continue azithromycin, add rocephin -IV steroids -SVN scheduled and prn -Will request records from [facility] including chest x-ray, recent CT of chest , records regarding recent diagnosis of recurrent kidney stones Active Problems: Tobacco use -nicotine patch prn Chronic pain syndrome Overview: With narcotic dependence Narcotic dependence -She reports difiiculty with GI absorption, we do not have buccal buprenoprhine -PRN roxanol H/O small bowel obstruction Overview: Multiple times, requiring multiple surgeries with long-term TPN -Continue pain management Other sleep apnea Overview: Wears 8 liters via ventimask with sleep. -Nocturnal Trilogy Acquired hypothyroidism -Synthroid replacement Lupus anticoagulant with hypercoagulable state -Restart Xarelto DVT Prophylaxis: Xarelto Code Status: Full Disposition: Continue current care, as continues to require oxygen, of note had PO2 on arterial blood gas at outside facility upon admission of 57. Possible dis charge in the next 1-2 days if rest her status improves Signed: Tushar Valente MD 09/19/2017, 9:59 AM * Brigid Stovall RN - 09/19/2017 1:00 AM CDT Called to pt's room.Nurse reports pt would like to go down to ER to have pain me dication because attending night Dr would not treat pain. Home medications revie wed with pt. Offered to call night and request Tramadol or other low dose med ication. Pt frustrated stating that she was in extreme pain 12/26-01/25 in abdome n due to chronic pancreatitis, colitis etc and we "messed up her home medication s. If I would have known that they wouldn't have my medication(belbuca) I would have here with me." Pt refused to take offer and states she wants to leave and g o to ER or have Dr come discharge her. Explained that she would be leaving AMA d ue to leaving floor to seek other medical treatment if Dr did not discharge her. Pt states "well you would be lying. I don't want to leave." I again repeated th at this was our policy. I left and called Dr. Quesada who stated that she was in h ere for her breathing and he was already giving her Morphine IR every 4 hours AK N and he was not willing to give her IV medications.That he would give her an ad ditional dose of Morphine IR and if she chose to leave AMA that was her choice. Explained Options to pt who stated "well I don't have a choice do I." I explaine d that many choices were offered to her. Pt then refuses medication options. Sta priya she wants to leave to go to ER. AMA paperwork given. Pt refused to sign. Was getting pt's belongings and explained to her that if again admitted she would g et same attending Dr. Pt states "You lied to me, you told me I would get a new D r." I explained that ER Dr would be the "new" Dr but NOT her attending.Pt change d her mind. Agreed to stay took oral Morphine and Atarax for anxiety. Pt had emma balized during our long conversation that she "Just wanted to ." I asked pt i f she felt SI/HI. She stated "No you took me all wrong." that's not what I meant ." I am in pain and tired one person should not go through this." Pt requested a warehouse assembly worker. I offered to pray. Pt agreed. I placed my right hand on pt's right shou lder(with permission) and prayed with pt. Pt apologized and was left to watching her tablet. Nurse updated. * Elida Medel RN - 09/19/2017 12:45 AM CDT 0005: Pt called out complaining of unbearable abdominal pain. Pt requested addit ion pain medication. This nurse informed Pt that it was too soon for her PRN nataly n medication. Pt requested the physician cinnamon grinder be notified for additional pain medicine. Dr Quesada notified. No new orders received. Physician stated to contin ued the current medication regimen. 0012: Pt made aware that the physician cinnamon grinder did not order additional pain med ication. Pt became irate stating, "I was told my home medications would be kristie nued and they are not. I take Belbuca at home and I have not received it." This nurse explained to the Pt that the hospital pharmacy does not have Belbuca in [facility] and that she could use her home supply. Pt stated, "I do not have my Belbuca with me and there is no one that can drive from [place] to bring it to me. I nee d something else to help with my pain. If I do not get something else I will go back through the ER." Dr Quesada notified of the situation again. Order received f or a one time additional dose of the patient's home dose of morphine (MS IR) 15 mg oral tablet. 0017: Informed Pt that the physician cinnamon grinder order an additional one time dose o f morphine (MS IR) 15 mg oral tablet. Pt refused and became irate stating, "It d oesn't work; not without the Belbuca. I need something else. I will go to the ER to seen another physician if I have to." Pt became more irate, raising her voic e & becoming confrontational. This nurse left the Pt's room & shut the door. Nursing Management Psychologist notified of the situation and stated that she would come to the floor to speak with the patient. * Clari Grey RCP - 09/18/2017 10:30 PM CDT Pt stated she wears a venti mask at night for O2 therapy- I brought her up a lavon ti mask and she stated no that's not it, I have a machine that I wear- pt juana c alled her home health RT and she informed us that the pt wears BiPAP in AVAPS mo de target VT 400, Max pressure 30, minimum pressure 12, Peep +6, with 8 lpm O2 b led in- pt placed on our BiPAP with those settings and is tolerating well documented in this encounter H&P Notes * Lorie Perdue PA-C - 09/18/2017 2:32 PM CDT Hospitalist Admission History and Physical Hx Present Illness Sophia Hawkins is a 52 y.o. White female a patient of No primary care provider on file. with past medical history of tobacco abuse, COPD, JUDI, HTN, chronic pa in with narcotic dependence, hypothyroidism, presented to the [facility] ED on day of admission with a 1 day history of shortness of breath. Patient states bud grider woke up this morning with shortness of breath. She admits to coughing up brow n sputum. She continues to smoke about 1/2 - 1 pack cigarettes per day. She w as offered admission at [facility], however, she declined stating her d ied at that hospital and she would not stay there. She requested transfer to [facility]. Patient presents to [facility] with SaO2 95% on 3 liters without respiratory distress . She complains of pain all over and requests IV pain medication. Prior to Admission Medications Prescriptions Last Dose Informant Patient Reported? Taking? ALBUTEROL INHALATION 09/17/2017 at Unknown time Yes Yes DULoxetine (CYMBALTA) 60 mg Capsule, Delayed Release(E.C.) Yes No Sig: Take 60 mg by mouth 2 times daily . buprenorphine HCl (BELBUCA) 75 mcg Film 09/17/2017 at Unknown time Yes Yes Sig: Place 75 mcg inside cheek 2 times daily. diphenhydrAMINE (BENADRYL) 25 mg Oral tablet 09/17/2017 at Unknown time Yes Yes Sig: Take 25 mg by mouth every 6 hours as needed. Allergies docusate sodium (COLACE) 100 mg Oral capsule 09/17/2017 at Unknown time Yes Yes Sig: Take 1 Cap by mouth 2 times daily. hydrOXYzine pamoate (VISTARIL) 50 mg capsule 09/17/2017 at Unknown time No Yes Sig: Take 1 Capsule (50 mg) by mouth 3 times daily as needed for Anxiety. 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 lisinopril (PRINIVIL) 20 mg tablet No No Sig: Take 1 Tablet (20 mg) by mouth daily. morphine (MS IR) 15 mg Oral tablet 09/17/2017 at Unknown time Yes Yes Sig: Take 15 mg by mouth every 4 hours as needed. breakthru pain olopatadine (PATANOL) 0.1 % OP solution 09/17/2017 at Unknown time Yes Yes Sig: Administer 1 Drop in both eyes 1 time daily as needed. Daily Prn allergies omeprazole (PRILOSEC) 20 mg Oral CpDR Yes No Sig: Take 20 mg by mouth daily. ondansetron (ZOFRAN ODT) 4 mg Tablet, Rapid Dissolve 09/17/2017 at Unknown time N o Yes Sig: Place 1 Tablet (4 mg) under tongue every 8 hours as needed for Nausea/Emesi s. tiZANidine (ZANAFLEX) 4 mg Tablet 09/17/2017 at Unknown time Yes Yes Sig: Take 4 mg by mouth every 6 hours as needed for Spasm. timolol (TIMOPTIC) 0.5 % solution 09/17/2017 at Unknown time Yes Yes Sig: Administer 1 Drop in left eye 2 times daily. Facility-Administered Medications: None Allergies Allergies Allergen Reactions Adhesive Tape-Silicones Rash Aspirin Unknown Codeine Unknown Compazine [Prochlorperazine Edisylate] Unknown Imitrex [Sumatriptan Succinate] Unknown Inapsine [Droperidol] Unknown Reglan [Metoclopramide] Anaphylaxis Minal-30 Unknown Toradol [Ketorolac] Unknown Past Medical History: Diagnosis Date Anxiety Asthma [...] HX KNEE SURGERY HX TUMOR REMOVAL abdominal AK ERCP W/SPHINCTEROTOMY/PAPILLOTOMY N/A 08/30/2014 CHOLANGIOPANCREATOGRAPHY RETROGRADE ENDOSCOPIC performed by Edilberto Urbina MD at [facility] ENDO AK ERCP,RMV F.B./CHANGE STENT N/A 08/30/2014 STENT REMOVAL performed by Edilberto Urbina MD at [facility] END[facility] AK INSJ TUNNELED CTR VAD W/SUBQ PORT AGE 5 YR/> 10/08/2010 CATHETER VENOUS ACCESS PLACEMENT performed by APOLLO PINEDA at [facility] TRESSA Family History Problem Relation Age of Onset [...] Social History Narrative No narrative on file ROS Constitutional- no fever, sweats, night sweats, change in fatigue level EYE- no blurred vision, double vision ENT-, no difficulty swallowing, no symptoms of oral candidiasis Lungs- no wheezing CV- no chest pain, palpitation GI- no nausea, vomiting, diarrhea, no abdominal pain - no difficulty voiding, no flank pain MS- no joint swelling Remainder of 10 point review of system is negative Vitals Patient Vitals for the past 8 hrs: BP Temp Temp src Pulse Resp SpO2 Weight 09/18/17 1420 138/81 98.1 F (36.7 C) Oral 95 18 95 % 67.9 kg (149 lb 11.1 oz ) Physical Exam General appearance - alert, well appearing, and in no distress Mental status - alert, oriented x 3, answers questions appropriately Eyes - PERRL Neck - supple, no significant adenopathy Chest - markedly diminished breath sounds bilaterally. Reduced air entry Heart - normal rate, regular rhythm, no murmur, rubs, clicks or gallops Abdomen - soft, nontender, nondistended, positive bowel sounds Neurological - moves all 4 extremities equal, face symmetrical Extremities - no lower extremity edema Skin - normal coloration and turgor, no rashes to exposed skin DATA Review Results for orders placed or performed during the hospital encounter of 09/18/17 (from the past 24 hour(s)) EDUCATION ADVANCE DIRECTIVES - JOHN Result Value Ref Range Education Name ADVANCE DIRECTIVES Education URL [email or web address] EDUCATION ACCESS CODE [id number] EDUCATION ISSUE DATE Sep 18, 2017 EDUCATION START DATE EDUCATION COMPLETED DATE EDUCATION EXPIRATION DATE Oct 18, 2017 EDUCATION MESSAGE EVENT Scheduled EDUCATION SMOKING CESSATION - THINKING ABOUT QUITTING SMOKING - JOHN Result Value Ref Range Education Name SMOKING CESSATION - THINKING ABOUT QUITTING SMOKING Education URL [email or web address] EDUCATION ACCESS CODE [id number] EDUCATION ISSUE DATE Sep 18, 2017 EDUCATION START DATE EDUCATION COMPLETED DATE EDUCATION EXPIRATION DATE Oct 18, 2017 EDUCATION MESSAGE EVENT Scheduled EKG: Results for orders placed or performed during the hospital encounter of 09/03/11 EKG 12-LEAD Social Work Program Coordinator XRAY: Results for orders placed or performed during the hospital encounter of 10/08/10 XR CHEST PA OR AP Narrative History: Preoperative. One view chest: Comparison 06/11/2010. No evidence of pneumonia, acute congestive failure, pleural effusion, or atelectasis. Stable blunting of the right lateral costophrenic sulcus likely due to scarring. Postsurgical changes at the base of the right neck unchanged. Conclusion: No evidence of acute cardiopulmonary disease with no interval change. Past records available through EP[facility] Impression Active Problems: Acute exacerbation of chronic obstructive pulmonary disease (COPD) Tobacco use Chronic pain syndrome Overview: With narcotic dependence Narcotic dependence H/O small bowel obstruction Overview: Multiple times, requiring multiple surgeries with long-term TPN Other sleep apnea Overview: Wears 8 liters via ventimask with sleep. Acquired hypothyroidism Discussion/plan 1. Acute COPD exacerbation - Solumdrol - Duonebs, Breo, Mucinex, Singulair - O2 support 2. Chronic pain syndrome - Continue Cymbalta, MS IR, buprenorphine (home meds) - Morphine 2mg IV once 3. Sleep apnea - O2 with sleep. Uses 8 liters at home per patient 4. Hypothroidism - Continue levothyroxine 5. DVT px - Heparin Lorie Perdue PA-C, 09/18/2017 2:32 PM CC. No primary care provider on file. No primary physician on file. None Associated attestation - Aman Todd MD - 09/18/2017 4:48 PM CDT I have evaluated and examined the patient in conjunction with advanced practice or student teacher as noted. Of note: Patient with PMH of COPD, JUDI presents with worsening shortness of doris th and wheezing over the past few days. She had minimal improvement with duoneb treatments at home. Exam: Moderate wheezing noted bilaterally. Agree with note including assessment and plan documented in this encounter Miscellaneous Notes * Care Plan - Roxana Josue, Stock Fitter - 09/20/2017 3:52 PM CDT Problem: Physical Mobility, Impaired Goal: Mobility goal: Improve ambulation by discharge Patient will ambulate 400 feet on level surface, using appropriate or no assisti ve device, with modified independence so patient can navigate discharge environm ent. Outcome: Progressing [facility] Acute Therapy Services Main: Acute: For questions regarding this patient's status or care, please call [phone]. Acute Physical Therapy Treatment 09/20/2017 [facility]: [facility] Name: Sophia Hawkins Age: 52 y.o. Date of : 1965 Insurance: Payor: MEDICARE / Plan: MEDICARE PART A A ND B / Product Type: Medicare / PT Treatment Minutes Therapy Start Time: 1438 (09/20/17 1438) Therapy Stop Time: 1501 (09/20/17 1438) Total Timed Treatment (min): 23 (09/20/17 1438) Total Treatment Time (min): 23 (09/20/17 1438) Minute breakdown: Individual (09/20/178) Confirmed patient's identification of name and date of : on name band, by patient report Consent to treatment given by patient and nurse with results as follows: Physical Therapy Assessment Patient is progressing towards care plan goals. Patients functional mobility continues to be limited by gait disturbance, pain and risk for falls. Continue with plan of care as patient does require skilled PT to address fun ctional deficits. Plan for subsequent sessions includes equipment training, gait training, lemuel e safety instruction, patient/family education and stair navigation Therapy Frequency: Will follow 6 times per week, daily Patient presents lying in bed when therapist arrives. Patient is completing king sfers with modified independence this session. Patient gait trains 300 ft with d ecreased tj, step height, step length, heel strike, toe off using single ca ne and requiring supervision assistance from the therapist. V/c provided for saf ety and use of single cane. No LOB noted during gait training. Will continue to progress activity as pt is able to tolerate. Precautions Patient precautions: DVT, fall precautions and oxygen precautions Weight Bearing: no restriction Other pertinent findings: IV Recommendations Discharge Recommendation: Home with assistance pending medical course and bas ed on patient's safety with Her current level of functional mobility. Equipment recommended at discharge: single cane Pt exhibits improvement wi th gait pattern and noted decrease in circumduction during gait with use of sing le cane. At this time, patient appears safe with recommended device. Subjective Information Provided by: patient. Patient denies further needs upon discharge aside from training with use of single cane. Pain: Refer to Doc Flowsheet for documented pain levels. Mobility Training Functional Mobility ( Therapeutic Activity 29651) Rolling: modified independent Scooting: modified independent Supine to sit: modified independent Sit to supine: modified independent Sit to stand: modified independent Bed to chair: did not perform Gait Trainin 300 feet with single cane, with supervision for safety . Patient required verbal cues for use of equipment and to use safe techniques and posture during ADLS and functional transfers. Balance/Safety: Therapeutic Activity 46633, Gait training 35993 : Good sitti ng, Good- standing Vitals: Patient on room air At Rest: HR: O2 Sat: % During/After: HR: activity O2 Sat: % Education Method: demonstration and verbal Provided to: patient Regarding gait training with single cane. Response to learning: will need further training in formal therapy sessions a nd verbalizes understanding Disposition Before treatment session: Patient found lying in bed. After treatment session: Patient left lying in bed with call light and phone within reach Prior to PT session a thorough chart review was completed, including prior [facility] notes, as applicable. Further treatment notes and therapeutic goals can be found in Care Plan Notes . Thank you for this referral, Roxana Josue, Stock Fitter Electronically signed by Roxana Josue, Stock Fitter at 08/2017 3:52 PM CDT * Care Plan - Melissa Zapien RCP - 09/20/2017 8:03 AM CDT Problem: Respiratory Goal: Achieve optimal respiratory function by discharge and/or maintain baseline function Outcome: Progressing Breath sounds crackles on the right with clear and diminished on left, SpO2 96% on 2 L/M oxygen via nasal cannula. Patient is tolerating nebulizer treatments w ell. * Care Plan - Milli Bell RCP - 09/20/2017 1:13 AM CDT Problem: Respiratory Goal: Achieve optimal respiratory function by discharge and/or maintain baseline function Outcome: Progressing 09/20/17 0113 Respiratory Care Plan Respiratory Care Plan Problems Ventilation/oxygenation, impaired Respiratory Interventions Supplemental oxygen;Cough and deep breathing encourage d;Effective breathing techniques encouraged;Non-Invasive ventilation Aerosol Therapy Neb Tx Status given * Care Plan - Marilynn Abbasi RN - 09/19/2017 6:57 PM CDT Problem: Safety/Fall Goal: Safety/Fall: Absence of fall, injury, harm during hospitalization Outcome: Progressing Patient remains free of fall/injury this shift. * Care Plan - Julee Cohen RCP - 09/19/2017 12:45 PM CDT Problem: Respiratory Goal: Achieve optimal respiratory function by discharge and/or maintain baseline function 09/19/17 1241 09/19/17 1244 Respiratory Care Plan Respiratory Care Plan Problems -- Bronchospasm, potential or actual;Ventilation /oxygenation, impaired Respiratory Interventions -- Monitor for level of consciousness change;Calming/ relaxation techniques utilized;Supplemental oxygen;Cough and deep breathing enco uraged;Effective breathing techniques encouraged;Non-Invasive ventilation Aerosol Therapy Neb Tx Status given -- Patient tolerating tx well. SOB with activity, while going to the bathroom. Will continue to monitor * Therapy Evaluation - Kiarra Link, Physical Therapist - 09/19/2017 12:41 PM CDT [facility] Acute Therapy Services Main: Acute: Acute Physical Therapy Evaluation 09/19/2017 (Evaluation CPT Code--23282) Room: [address] [place] [address] Name: Sophia Hawkins Age: 52 y.o. Date of : 1965 Insurance: Payor: MEDICARE / Plan: MEDICARE PART A A ND B / Product Type: Medicare / Patient Class: Observation Confirmed patient's identification of name and date of : on name band, by patient report Consent to treatment given by patient and nurse with results as follows: Onset of illness/injury or date of surgery: 09/18/2017 PT Evaluation Time PT Evaluation Start Time: 929 (09/19/17929) PT Evaluation Stop Time: 1000 (09/19/17929) PT Evaluation Total Minutes: 30 (09/19/17929) PT Treatment 0513-3182 PT Treatment Total Minutes: 25 Subjective Information Provided by: patient states she has been providing care for her twin sister's and he has been residing at her home for over 3 years. She manages his medications and ensures he attends his appointments while sister resides in [facility] and works as an RN. Patient feels overwhelmed that her sister is not managin g her own . Patient states she has a known hx of PE and gut absoprtion Patient/Family Goals Statement: "not hurt" Prior level of function was independence with no assistive device. Patient h as no family who is able to assist in home environment. Vtffayy-[id number] resides with her but does not assist Patient does have a history of falls. States she has fallen one time when she lost her balance several months ago. She does not use a device at home Home environment: 1-Story home and Number of Outside Stairs: 1 step. Pain: Refer to Doc Flowsheet for documented pain levels. Reports 9/10 pain "a ll over" and states she take "a lot" of pain medication at home Objective Upper Extremity Function: Defer to OT. Lower Extremity Function: Left: ROM: mildly impaired Strength: mildly impaired Right: ROM: mildly impaired Strength: mildly impaired Muscle Tone: normal Coordination: mildly impaired; jittery with fatigue Sensation: not tested; Vitals: Patient on 2 liters/min via nasal cannula At Rest: HR: 75 bpm O2 Sat: 94-96% During/After: HR: 86 bpm activity O2 Sat: 91-96% [facility] PT Acute Care Functional Outcomes Tool 7 = Ind, 6 = Mod I, 5 = Sup, 4 = Min A, 3 = Mod A, 2 = Max A, 1 = Total A, 0 = N/A Level of Assist (see murrell above) 1. Bed Mobility: Lying down to sitting on EOB Comments: Modified independence 6 2. Transfers: Bed to Chair (Including sit to/from stand) Comments: modified independence 6 3. Gait: Walking on Level Surfaces Comments/Deviations: 350 feet without device with supervision to minimal assist x 1; antalgic with mild circumduction with L LE 4 4. Walking Distance: 350 feet without device with supervision to minimal jose antonio t x 1; antalgic with mild circumduction with L LE Comments: vcs for PLB; suggested potential use of RW and patient open to attempt ing gait again with RW next visit for energy conservation purposes 7 7= 201+ ft, 6= 151-200ft, 5= 101-150ft, 4= 51-100ft, 3= 31-50ft, 2= 11-30ft, 1= 1-10ft Patient required cues and education for energy conservation and to use safe t echniques and posture during ADLS and functional transfers. Safety Awareness Patient is oriented to Person, Place, Date and Situation and demonstrates Goo d ability to follow commands. Safety Awareness: good; Balance Sitting :modified independence statically and dynamically without UE support Standing: modified independence statically without device; supervision to min imal assist x 1 dynamically without device Assessment Therapeutic Diagnosis: Sophia Hawkins is a 52 y.o. female referred for phys ical therapy. Patient presents with and would benefit from skilled physical the rapy to address balance deficits, decreased activity tolerance, gait disturbance , pain and risk for falls. Rehabilitation Potential: Good Participation level: Good Patient has been admitted with AECOPD, JUDI and SOB x 1 day. She is typically on 2L supplemental O2 during the day and uses 8L QHS. Patient is cooperative and willing to participate with therapies. She requires 2L O2 for SpO2>90% during mobility/activity. She is modified independence with transfers and bed mobility and requires minimal assist x 1 with gait for balance and vcs for PLB and energy conservation techniques. Pt would benefit from continued skilled PT services to improve functional mobility and endurance with gait and transfer t raining in order to maximize patient's independence and ultimately return home. Discharge Recommendation Anticipated discharge disposition: Home with assistance Equipment needed at discharge: possible RW Recommendations for referral to another service: case management specialist/care coordinato r Precautions Weight Bearing: no restriction Patient precautions: DVT, fall precautions and oxygen precautions Plan Of Care Therapy Frequency: Will follow 6 times per week, Daily Plan will include but is not limited to balance training, functional transfer training, gait training, patient/family education, stair navigation and strengt hening exercises Discussed PT plan of care with the patient, who is in agreement, and also jamel talbert their RN Education Method: demonstration and verbal Provided to: patient Regarding: Energy Conservation, Breathing Skills/Pursed Lip Breathing, PT Laurie n of care, Gait Training . Response to learning: will need further training in formal therapy sessions a nd verbalizes understanding Disposition Before treatment session: Patient found: lying in bed. After treatment session: Patient left: lying in bed with call light and phone within reach Current Diagnoses Patient Active Problem List Diagnosis Code Acute exacerbation of chronic obstructive pulmonary disease (COPD) J44.1 CO2 narcosis R06.89 Tobacco use Z72.0 Chronic pain syndrome G89.4 Narcotic dependence F11.20 H/O small bowel obstruction Z87.19 Other sleep apnea G47.39 Acquired hypothyroidism E03.9 Lupus anticoagulant with hypercoagulable state D68.62 Past Medical History has a past medical history of Anxiety; Asthma; BiPAP (biphasic positive airway pressure) dependence; Bowel obstruction; Bowel obstruction; Chest pain; Chronic pain; COPD (chronic obstructive pulmonary disease); CRI (chronic renal insuffici ency); Depression; HTN (hypertension); Hyperlipidemia; Hypothyroidism; Lupus; Meg pus; Obstructive sleep apnea (adult) (pediatric); Pancreatitis; Pulmonary emboli (june 2010); and Thromboembolism. She also has no past medical history of Di abetes mellitus or Unspecified adverse effect of anesthesia. Prior to PT session a thorough chart review was completed including prior PT notes as applicable. Further treatment notes and therapeutic goals can be found in Care Plan Notes . Thank you for this referral, Kiarra Link, Physical Therapist [phone] G-Codes: Initial Status: G8978 - Mobility current status: Mobility: Walking and moving around functional limitation, current status, at therapy outset and at reportin g intervals CJ: At least 20% but less than 40% impaired, limited, or restricted Goal Status: G8979 - Mobility goal status: Mobility: Walking and moving aroun d functional limitation, projected goal status, at therapy outset and at reporti ng intervals, and at discharge or to end reporting CI: At least 1% but less than 20% impaired, limited or restricted * Care Plan - Clari Grey, [facility] - 09/19/2017 1:54 AM CDT Problem: Respiratory Goal: Achieve optimal respiratory function by discharge and/or maintain baseline function Outcome: Progressing 09/18/17 2228 09/19/17 0147 Aerosol Therapy Neb Tx Status -- given Respiratory Care Plan Respiratory Care Plan Problems Bronchospasm, potential or actual;Ventilation/oxy genation, impaired -- Respiratory Interventions Supplemental oxygen;Weaning O2 as tolerated;Non-Invasi ve ventilation;Cough and deep breathing encouraged;Effective breathing technique s encouraged -- Pt tolerating tx's well- placed on BiPAP at night per home regimen * Care Plan - Marilynn Abbasi RN - 09/18/2017 6:27 PM CDT Problem: Safety/Fall Goal: Safety/Fall: Absence of fall, injury, harm during hospitalization Outcome: Progressing Patient remains free of fall/injury this shift. Call light within reach. documented in this encounter Plan of Treatment Order Schedule Name Type Priority Associated Diag noses ONE TIME for 1 Occurrences starting 06/2017 until 09/18/2017 PT EVAL AND TREAT PT Routine Order Schedule Name Type Priority Associated Diag noses Ordered: 09/20/2017 AMB REFERRAL TO DME Outpatient Routine Chronic pa in syndrome Referral documented as of this encounter Procedures Comments Procedure Name Priority Date/Time Associated Diag nosis POC GLUCOSE Routine 09/20/2017 12:13 PM CDT POC GLUCOSE Routine 09/20/2017 7:31 AM CDT CBC WITH DIFFERENTIAL Routine 09/20/2017 4:47 AM CDT HEMOGLOBIN A1C Routine 09/20/2017 4:47 AM CDT BASIC METABOLIC PANEL Routine 09/20/2017 4:47 AM CDT POC GLUCOSE Routine 09/19/2017 9:33 PM CDT URINALYSIS W/REFLEX Routine 09/19/2017 MICROSCOPIC 6:27 PM CDT POC GLUCOSE Routine 09/19/2017 5:54 PM CDT POC GLUCOSE Routine 09/19/2017 11:25 AM CDT CBC WITH DIFFERENTIAL Routine 09/19/2017 5:42 AM CDT BASIC METABOLIC PANEL Routine 09/19/2017 5:42 AM CDT EDUCATION SMOKING Routine 09/18/2017 CESSATION - THINKING 2:04 PM CDT ABOUT QUITTING SMOKING EDUCATION ADVANCE Routine 09/18/2017 DIRECTIVES 2:04 PM CDT OT EVAL AND TREAT Routine 09/18/2017 1:58 PM CDT documented in this encounter Results * POC GLUCOSE (09/20/2017 12:13 PM CDT) POC GLUCOSE 214 (H) 70 - 105 mg/dL [facility] [place] TOOL STRAIGHTENER NAME isabelle castro [facility] - [place] Specimen Whole blood sample (specimen) Performing Organization Address [facility] one [facility] CLIA # [id number] [place] [address] - [place] 100 [employer] [facility] CLIA # [id number] [place], [place] [address] - [place] [address] [employer] * POC GLUCOSE (09/20/2017 7:31 AM CDT) POC GLUCOSE 230 (H) 70 - 105 mg/dL [facility] - [place] TOOL STRAIGHTENER NAME isabelle castro [employer] [facility] - [place] Specimen Whole blood sample (specimen) Performing Organization Address [facility] one [facility] CLIA # [id number] [place] [address] - [place] [address] [employer] [facility] CLIA # [id number] [place], [place] [address] - [place] [address] * BASIC METABOLIC PANEL (09/20/2017 4:47 AM CDT) SODIUM 139 136 - 145 mmol/L [facility] [place] POTASSIUM 4.5 3.5 - 5.1 mmol/L [facility] [place] CHLORIDE 103 98 - 107 mmol/L [facility] [place] CO2 27 22 - 29 mmol/L [facility] [place] CALCIUM 9.4 8.6 - 10.0 mg/dL [facility] [place] BUN 25 (H) 6 - 20 mg/dL [facility] [place] CREATININE 0.80 0.51 - 0.95 mg/dL [facility] [place] GLUCOSE 271 (H) 74 - 105 mg/dL [facility] [place] GFR >60 >=60 mL/min/1.73 sq [facility] Comment: meter LABORATORY eGFR has not been [...] GFR result. GFR, >60 >=60 mL/min/1.73 sq [facility] IRAQI meter LABORATORY SERVICES - [place] ANION GAP 9 4 - 13 mmol/L [facility] - [facility] Specimen Blood Performing Organization Address City/State/Zipcode Ph one Number [facility] CLIA # [id number] [place] [address] - [place] [address] [facility] LAB[facility] SERVICES CLIA # [id number] [place], [place] [address] - [place] 100 [facility] * CBC WITH DIFFERENTIAL (09/20/2017 4:47 AM CDT) WBC 16.5 (H) 4.0 - 11.0 K/uL [facility] [facility] - [place] RBC 3.80 (L) 4.20 - 5.40 M/uL [facility] - [place] HEMOGLOBIN 12.6 12.5 - 16.0 g/dL [facility] - [place] HEMATOCRIT 38.3 37.0 - 47.0 % [facility] [place] MCV 100.8 (H) 78.0 - 100.0 fL [facility] [place] MCH 33.2 27.0 - 34.0 pg [facility] [place] MCHC 32.9 31.0 - 37.0 g/dL [facility] [place] RDW 12.4 12.0 - 15.0 % [facility] [place] RDW-STDEV 45.9 37.1 - 48.7 fL [facility] [place] PLATELETS 134 (L) 150 - 450 K/uL [facility] [place] MPV 11.3 9.3 - 12.4 fL [facility] [place] NEUTROPHILS 91 (H) 31 - 76 % [facility] [place] LYMPHOCYTES 6 (L) 24 - 44 % [facility] [place] MONOCYTES 2 2 - 11 % [facility] [place] EOSINOPHILS 0 0 - 6 % [facility] [place] BASOPHILS 0 0 - 2 % [facility] [place] IMMATURE 1 0 - 2 % [facility] [place] NEUTROPHIL 15.02 (H) 1.80 - 7.70 K/uL [facility] [place] LYMPHOCYTE 1.05 1.00 - 4.80 K/uL [facility] [place] MONOCYTE 0.29 0.10 - 1.30 K/uL [facility] [place] EOSINOPHIL 0.00 0.00 - 0.70 K/uL [facility] [place] BASOPHILS 0.02 0.00 - 0.20 K/uL [facility] [place] IMMATURE 0.16 (H) 0.00 - 0.10 K/uL [facility] ABSOLUTE [facility] - [place] Specimen Blood Performing Organization Address City/State/Zipcode Ph one Number [facility] CLIA # [id number] [place] [address] - [place] [address] [facility] CLIA # [id number] [place] [address] - [place] 100 [facility] * HEMOGLOBIN A1C (09/20/2017 4:47 AM CDT) HEMOGLOBIN A1C 6.1 (H) 4.8 - 5.9 % [facility] [place] EST. AVG 128 mg/dL [facility] GLUCOSE, A1C LABORATORY SERVICES - [place] Specimen Blood Narrative Performed At HGB A1C INTERPRETATION [facility] LABORATORY NORMAL: <5.7% SERVICES - [place] PRE-DIABETES: 5.7 - 6.4% DIABETES: 6.5% OR GREATER Performing Organization Address [facility] LAB[facility]ATORY SERVICES CLIA # [id number] [place] [address] - [place] 100 [facility] SERVICES CLIA # [id number] [place], [place] [address] - [place] 100 [facility] * POC GLUCOSE (09/19/2017 9:33 PM CDT) POC GLUCOSE 205 (H) 70 - 105 mg/dL [facility] - [place] TOOL STRAIGHTENER NAME meng vasquez [facility] - [place] Specimen Whole blood sample (specimen) Performing Organization Address [facility] LAB[facility]ORY SERVICES CLIA # [id number] [place] [address] - [place] 100 [facility] SERVICES CLIA # [id number] [place], [place] [address] - [place] 100 [facility] * URINALYSIS WITH REFLEX MICROSCOPIC (09/19/2017 6:27 PM CDT) COLOR UA Yellow Pale to dark yellow [facility] - [place] CLARITY UA Clear Clear [facility] - [place] SPECIFIC 1.029 1.003 - 1.035 [facility] - [place] PH UA 6.0 5.0 - 8.0 [facility] - [place] LEUKOCYTE Negative Negative [facility] - [place] NITRITE UA Negative Negative [employer] [facility] - [place] PROTEIN UA Negative Negative [facility] - [place] GLUCOSE UA 3+ (A) Negative [facility] - [place] KETONES UA Negative Negative [facility] - [place] UROBILINOGEN UA <2.0 <2.0 mg/dL [employer] [facility] - [place] BILIRUBIN UA Negative Negative [facility] - [place] BLOOD UA 2+ (A) Negative [facility] - [place] WBC UA 0-2 0 - 2 /hpf [facility] - [place] RBC UA 6-10 (A) 0 - 2 /hpf [facility] - [place] BACTERIA UA Negative Negative /hpf [facility] - [place] EPITHELIAL 0-5 0 - 5 /hpf [facility] CELLS, URINE LABORATORY SERVICES - [place] Specimen Urine - Urine specimen obtained by clean catch procedure (specimen) Performing Organization Address [facility] LABORATORY SERVICES CLIA # [id number] [place] [address] - [place] [address] [facility]ORY SERVICES CLIA # [id number] [place], [place] [address] - [place] 100 [facility] * POC GLUCOSE (09/19/2017 5:54 PM CDT) POC GLUCOSE 357 (H) 70 - 105 mg/dL [facility] - [place] TOOL STRAIGHTENER NAME marin romero [facility] - [place] Specimen Whole blood sample (specimen) Performing Organization Address [facility] LABORATORY SERVICES CLIA # [id number] [place] [address] - [place] [address] [facility] LAB[facility]ORY SERVICES CLIA # [id number] [place], [place] [address] - [place] 100 [facility] * POC GLUCOSE (09/19/2017 11:25 AM CDT) POC GLUCOSE 236 (H) 70 - 105 mg/dL [facility] - [place] TOOL STRAIGHTENER NAME marin romero [facility] - [place] Specimen Whole blood sample (specimen) Performing Organization Address [facility] LABORATORY SERVICES CLIA # [id number] [place] [address] - [place] [address] [facility] SERVICES CLIA # [id number] [place], [place] [address] - [place] 100 [facility] * BASIC METABOLIC PANEL (09/19/2017 5:42 AM CDT) SODIUM 136 136 - 145 mmol/L [facility] - [place] POTASSIUM 4.4 3.5 - 5.1 mmol/L [facility] - [place] CHLORIDE 98 98 - 107 mmol/L [facility] - [place] CO2 26 22 - 29 mmol/L [facility] - [place] CALCIUM 9.6 8.6 - 10.0 mg/dL [facility] - [place] BUN 24 (H) 6 - 20 mg/dL [facility]ORY SERVICES - [place] CREATININE 0.77 0.51 - 0.95 mg/dL [facility] - [place] GLUCOSE 236 (H) 74 - 105 mg/dL [facility] - [place] GFR >60 >=60 mL/min/1.73 sq [facility] Comment: meter LABORATORY eGFR has not been [...] GFR result. GFR, >60 >=60 mL/min/1.73 sq [facility] IRAQI meter LABORATORY SERVICES - [place] ANION GAP 12 4 - 13 mmol/L [facility] LABORATORY SERVICES - [place] Specimen Blood Performing Organization Address City/State/[facility] Ph one Number [facility] LABORATORY SERVICES CLIA # [id number] Eek NANCY [address] - JOIN [facility] LABORATORY SERVICES CLIA # [id number] Eek NANCY 6 [phone] - [facility] * CBC WITH DIFFERENTIAL (09/19/2017 5:42 AM CDT) WBC 13.4 (H) 4.0 - 11.0 K/uL [facility] LABORATORY SERVICES - [place] RBC 3.92 (L) 4.20 - 5.40 M/uL [facility] LABORATORY SERVICES - [place] HEMOGLOBIN 13.3 12.5 - 16.0 g/dL [facility] LABORATORY SERVICES - [place] HEMATOCRIT 38.8 37.0 - 47.0 % [facility] LABORATORY SERVICES - [place] MCV 99.0 78.0 - 100.0 fL [facility] [place] MCH 33.9 27.0 - 34.0 pg [facility] LABORATORY SERVICES - [place] MCHC 34.3 31.0 - 37.0 g/dL [facility] LABORATORY SERVICES - [place] RDW 12.5 12.0 - 15.0 % [facility] LABORATORY SERVICES - [place] RDW-STDEV 45.6 37.1 - 48.7 [facility] LABORATORY SERVICES - [place] PLATELETS 146 (L) 150 - 450 K/uL [facility] LABORATORY SERVICES - [place] MPV 10.8 9.3 - 12.4 [facility] LABORATORY SERVICES - [place] NEUTROPHILS 90 (H) 31 - 76 % [facility] [place] LYMPHOCYTES 8 (L) 24 - 44 % [facility] LABORATORY SERVICES - [place] MONOCYTES 2 2 - 11 % [facility] - [place] EOSINOPHILS 0 0 - 6 % [facility] [place] BASOPHILS 0 0 - 2 % [facility] [place] IMMATURE 1 0 - 2 % [facility] GRANULOCYTES LABORATORY SERVICES - [place] NEUTROPHIL 11.99 (H) 1.80 - 7.70 K/uL [facility] ABSOLUTE LABORATORY SERVICES - [place] LYMPHOCYTE 1.06 1.00 - 4.80 K/uL [facility] ABSOLUTE LABORATORY SERVICES - [place] MONOCYTE 0.25 0.10 - 1.30 K/uL [facility] ABSOLUTE LABORATORY SERVICES - [place] EOSINOPHIL 0.00 0.00 - 0.70 K/uL [facility] ABSOLUTE LABORATORY SERVICES - [place] BASOPHILS 0.01 0.00 - 0.20 K/uL [facility] ABSOLUTE LABORATORY SERVICES - [place] IMMATURE 0.08 0.00 - 0.10 K/uL [facility] GRANULOCYTES LABORATORY ABSOLUTE SERVICES - [place] Specimen Blood Performing Organization Address City/State/Zipcode Ph one Number [facility] LABORATORY SERVICES CLIA # [id number] NANCY Duarte [address] - [place] 100 [facility] LABORATORY SERVICES CLIA # [id number] NANCY Duarte 6 [address] - [place] 100 [facility] * EDUCATION SMOKING CESSATION - THINKING ABOUT QUITTING SMOKING - JOHN (09/18/2017 2:04 PM CDT) Education Name SMOKING CESSATION - THINKING [facility] CATION ABOUT QUITTING SMOKING INTERFACE Education URL [email or web address] JOHN E DUCATION mmi INTERFACE EDUCATION [id number] JOHN EDUCATION ACCESS CODE INTERFACE EDUCATION ISSUE Sep 18, 2017 JOHN EDUCATION DATE INTERFACE EDUCATION START JOHN EDUCATION DATE INTERFACE EDUCATION This program was not started JOHN EDU CATION COMPLETED DATE and flagged as on: Oct EDUCATION Oct 18, 2017 JOHN EDUCATION EXPIRATION DATE INTERFACE EDUCATION JOHN EDUCATION MESSAGE EVENT INTERFACE Specimen Performing Organization Address City/State/Zipcode Ph one Number JOHN EDUCATION INTERFACE * EDUCATION ADVANCE DIRECTIVES - JOHN (09/18/2017 2:04 PM CDT) Education Name ADVANCE DIRECTIVES JOHN EDUCATION INTERFACE Education URL [email or web address] JOHN E DUCATION mmi INTERFACE EDUCATION [phone] JOHN EDUCATION ACCESS CODE INTERFACE EDUCATION ISSUE Sep 18, 2017 JOHN EDUCATION DATE INTERFACE EDUCATION START JOHN EDUCATION DATE INTERFACE EDUCATION This program was not started JOHN EDU CATION COMPLETED DATE and flagged as on: Oct EDUCATION Oct 18, 2017 JOHN EDUCATION EXPIRATION DATE INTERFACE EDUCATION JOHN EDUCATION MESSAGE EVENT INTERFACE Specimen Performing Organization Address City[facility] Number JOHN EDUCATION INTERFACE documented in this encounter Visit Diagnoses Diagnosis Chronic pain syndrome - Primary Tobacco use Tobacco use disorder Acute exacerbation of chronic obstructi ve pulmonary disease (COPD) Obstructive chronic bronchitis with exa cerbation Narcotic dependence Unspecified drug dependence, unspecifie d H/O small bowel obstruction Personal history of other diseases of d igestive system Other sleep apnea Acquired hypothyroidism Unspecified hypothyroidism Lupus anticoagulant with hypercoagulabl e state Primary hypercoagulable state Steroid-induced hyperglycemia Other abnormal glucose documented in this encounter Administered Medications Action Date Dose Rate Site Medication Order MAR Action acetaminophen (TYLENOL) tablet 650 mg 650 mg, Oral, EVERY 6 HOURS PRN, Starting 09/18/17 at 1358, Until Tue09/20/17 at 1844, temperature greater radha n 100.3 or general pain, pain of headache or pain with score less than 4, Routine 09/18/2017 10:19 PM CDT 2.5 mg albuterol (PROVENTIL,VENTOLIN) Given inhalation solution 2.5 mg 2.5 mg, Inhalation, EVERY 6 HOURS PRN RESPIRATORY, Starting 09/18/17 at 1358, Until Tue09/19/17 at 0901, Shortness of Breath, Wheezing, Routine albuterol (PROVENTIL,VENTOLIN) inhalation solution 2.5 mg 2.5 mg, Inhalation, EVERY 4 HOURS PRN RESPIRATORY, Starting Tue09/19/17 at 0915, Until Tue09/20/17 at 1844, Shortness of Breath, Wheezing, Routine 09/20/2017 3:35 PM CDT 500 mg azithromycin (ZITHROMAX) tablet 500 mg Given 500 mg, Oral, EVERY 24 HOURS, 5 doses, First dose on Tue09/18/17 at 1400, Last dose on María Elena 09/22/17 at 1400, Routine, Antibiotic Indication: Upper Respirator y Tract / ENT Infection / COPD Exacerbation 500 mg Given 09/19/2017 3:05 PM CDT 500 mg Given 09/18/2017 4:02 PM CDT bisacodyl (DULCOLAX) rectal suppository 10 mg 10 mg, Rectal, DAILY PRN, Starting Tue09/18/17 at 1358, Until Tue09/20/17 at 1844, Constipation, Routine calcium as carbonate (TUMS) 500 mg (200 mg elemental) chewable tablet 400 mg 400 mg, Oral, EVERY 6 HOURS PRN, Starting Tue09/18/17 at 1358, Until Tue09/20/17 at 1844, Indigestion, Routine 09/20/2017 10:14 AM CDT 1,000 mg 100 mL/hr cefTRIAXone (ROCEPHIN) 1,000 mg in New Bag sodium chloride 0.9% 50 mL IVPB (MBP) 1,000 mg, IV, EVERY 24 HOURS (DAILY), First dose on Tue09/19/17 at 1030, Until Discontinued, Routine, Antibiotic Indication: Upper Respiratory Tract / ENT Infection 1,000 mg 100 mL/hr New Bag 09/19/2017 11:29 AM CDT dextrose 5% infusion IV, at 40 mL/hr, SEE ADMIN INSTRUCTIONS , Starting Tue09/19/17 at 0903, Until Tue09/20/17 at 1844, Routine dextrose 50% (D50) syringe 12.5 Gram 12.5 Gram, IV, SEE ADMIN INSTRUCTIONS, Starting Tue09/19/17 at 0903, Until Tue09/20/17 at 1844, Routine dextrose 50% (D50) syringe 25 Gram 25 Gram, IV, SEE ADMIN INSTRUCTIONS, Starting Tue09/19/17 at 0903, Until Tue09/20/17 at 1844, Routine 09/20/2017 10:13 AM CDT 100 mg docusate sodium (COLACE) capsule 100 mg Given 100 mg, Oral, TWO TIMES DAILY, First dose on Tue09/18/17 at 1500, Until Discontinued, Routine 09/20/2017 10:13 AM CDT 60 mg DULoxetine (CYMBALTA) capsule 60 mg Given 60 mg, Oral, TWO TIMES DAILY, First dos e on Tue09/18/17 at 2100, Until Discontinued, Routine 60 mg Given 09/19/2017 8:22 PM CDT 60 mg Given 09/19/2017 9:44 AM CDT 09/20/2017 8:42 AM CDT 1 Puff fluticasone-vilanterol (BREO ELLIPTA) Given 200-25 mcg/dose inhaler 1 Puff 1 Puff, Inhalation, DAILY RESPIRATORY, First dose on Tue09/18/17 at 1600, Until Discontinued, Routine 1 Puff Given 09/19/2017 9:45 AM CDT 1 Puff Given 09/18/2017 4:05 PM CDT glucagon HCl 1 mg injection 1 mg 1 mg, IM, SEE ADMIN INSTRUCTIONS, Starting Tue09/19/17 at 0903, Until Tue09/20/17 at 1844, Routine 09/20/2017 10:13 AM CDT 1,200 mg guaiFENesin (MUCINEX) SR tablet 1,200 mg Given 1,200 mg, Oral, EVERY 12 HOURS (BlD), First dose on Tue09/18/17 at 1400, Until Discontinued, Routine 1,200 mg Given 09/19/2017 8:22 PM CDT 1,200 mg Given 09/19/2017 9:44 AM CDT 09/19/2017 5:35 AM CDT 5,000 Units Abdomen, Right Lower Quadrant heparin injection 5,000 Units Given 5,000 Units, subCUT, EVERY 8 HOURS, First dose on Tue09/18/17 at 1430, Until Discontinued, Routine 5,000 Units Abdomen, Left Lower Quadrant Given 09/18/2017 8:38 PM CDT 5,000 Units Abdomen, Right Lower Quadrant Given 09/18/2017 4:04 PM CDT 09/20/2017 4:12 PM CDT 300 Units heparin, porcine lock flush (pf) 100 Given unit/mL injection 300 Units 300 Units, IV, ONE TIME ONLY, 1 dose, Tue09/20/17 at 1600, Routine 09/19/2017 12:58 AM CDT 50 mg hydrOXYzine HCl (ATARAX) tablet 50 mg Given 50 mg, Oral, THREE TIMES DAILY PRN, Starting Tue09/18/17 at 1425, Until Tue09/20/17 at 1844, Anxiety, Routine 09/20/2017 8:41 AM CDT 5 Units Abdomen, Left Lower Quadrant insulin lispro (HumaLOG) variable dose Given injection subCUT, THREE TIMES DAILY WITH MEALS, First dose on Tue09/19/17 at 0915, Until Discontinued, Routine 8 Units Arm, Right Upper Given 09/19/2017 6:07 PM CDT 09/19/2017 9:34 PM CDT 1 Units Abdomen, Right Lower Quadrant insulin lispro (HumaLOG) variable dose Given injection subCUT, DAILY AT BEDTIME, First dose on Tue09/19/17 at 2100, Until Discontinued, Routine 09/20/2017 12:36 PM CDT 5 Units Abdomen, Left Lower Quadrant insulin lispro (HumaLOG) variable dose Given injection subCUT, THREE TIMES DAILY WITH MEALS, First dose on Tue09/20/17 at 1200, Until Discontinued, Routine insulin lispro (HumaLOG) variable dose injection subCUT, DAILY AT BEDTIME, First dose on Tue09/20/17 at 2100, Until Discontinued, Routine 09/19/2017 6:25 AM CDT 3 mL ipratropium-albuterol (DUONEB) 0.5 mg-3 Given mg(2.5 mg base)/3 mL inhalation solutio n 3 mL 3 mL, Inhalation, EVERY 6 HOURS RESPIRATORY, First dose on Tue09/18/17 a t 1400, Until Discontinued, Routine 3 mL Given 09/19/2017 1:47 AM CDT 3 mL Given 09/18/2017 6:40 PM CDT 09/20/2017 12:55 PM CDT 3 mL ipratropium-albuterol (DUONEB) 0.5 mg-3 Given mg(2.5 mg base)/3 mL inhalation solutio n 3 mL 3 mL, Inhalation, EVERY 6 HOURS RESPIRATORY, First dose (after last modification) on Tue09/19/17 at 1300, Until Discontinued, Routine 3 mL Given 09/20/2017 7:51 AM CDT 3 mL Given 09/20/2017 1:06 AM CDT 09/20/2017 6:19 AM CDT 75 mcg levothyroxine (SYNTHROID) tablet 75 mcg Given 75 mcg, Oral, DAILY EARLY, First dose o n Tue09/19/17 at 0600, Until Discontinued, Routine 75 mcg Given 09/19/2017 5:35 AM CDT 09/20/2017 12:37 PM CDT 80 mg methylPREDNISolone sodium succinate PF Given (SOLU-Medrol PF) injection 80 mg 80 mg, IV, EVERY 8 HOURS, First dose on Tue09/18/17 at 1400, Until Discontinued, Routine 80 mg Given 09/20/2017 4:44 AM CDT 80 mg Given 09/19/2017 8:24 PM CDT 09/19/2017 8:22 PM CDT 10 mg montelukast (SINGULAIR) 10 mg tablet 10 Given mg 10 mg, Oral, DAILY AT BEDTIME, First dose on Tue09/18/17 at 2100, Until Discontinued, Routine 10 mg Given 09/18/2017 8:38 PM CDT 09/19/2017 12:58 AM CDT 15 mg morphine (MS CONTIN) SR tablet 15 mg Given 15 mg, Oral, ONE TIME ONLY, 1 dose, Tue09/19/17 at 0045, Routine 09/19/2017 3:06 AM CDT 15 mg morphine (MS IR) tablet 15 mg Given 15 mg, Oral, EVERY 4 HOURS PRN, Startin g [place] 09/18/17 at 1425, Until Tue09/19/17 at 0900, Pain (See admin instructions), Routine 15 mg Given 09/18/2017 10:16 PM CDT 15 mg Given 09/18/2017 6:35 PM CDT 09/20/2017 2:33 PM CDT 15 mg morphine (ROXANOL) oral concentrate 15 Given mg 15 mg, Oral, EVERY 4 HOURS PRN, Startin g Tue09/19/17 at 0900, Until Tue09/20/17 at 1844, Pain (See admin instructions), Routine 15 mg Given 09/20/2017 10:12 AM CDT 15 mg Given 09/20/2017 4:40 AM CDT 09/18/2017 2:59 PM CDT 2 mg morphine 4 mg/mL injection 2 mg Given 2 mg, IV, ONE TIME ONLY, 1 dose, [place] 09/18/17 at 1430, Routine 09/19/2017 9:44 AM CDT 2 mg morphine 4 mg/mL injection 2 mg Given 2 mg, IV, ONE TIME ONLY, 1 dose, Tue09/19/17 at 0915, Routine 09/19/2017 3:08 AM CDT 4 mg ondansetron (ZOFRAN ODT) tablet 4 mg Given 4 mg, Oral, EVERY 6 HOURS PRN, Starting Tue09/18/17 at 1358, Until Tue09/20/17 at 1844, Nausea/Emesis, Routine 09/20/2017 12:10 AM CDT 4 mg ondansetron (ZOFRAN ODT) tablet 4 mg Given 4 mg, Sublingual, EVERY 8 HOURS PRN, Starting Tue09/18/17 at 1425, Until Tue09/20/17 at 1844, Nausea/Emesis, Routine 4 mg Given 09/19/2017 12:44 PM CDT 4 mg Given 09/18/2017 6:37 PM CDT 09/20/2017 6:19 AM CDT 40 mg pantoprazole (PROTONIX) tablet 40 mg Given 40 mg, Oral, DAILY, First dose on Tue09/19/17 at 0600, Until Discontinued, Routine 40 mg Given 09/19/2017 5:35 AM CDT 09/19/2017 8:22 PM CDT 95 mg phenazopyridine tablet 95 mg Given 95 mg, Oral, THREE TIMES DAILY PRN, Starting Tue09/19/17 at 1801, Until Tue09/20/17 at 1844, Pain, Routine polyethylene glycol (MIRALAX) packet 17 Gram 17 Gram, Oral, DAILY PRN, Starting Tue09/18/17 at 1358, Until Tue09/20/17 at 1844, Constipation, Routine 09/19/2017 5:36 PM CDT 20 mg rivaroxaban (XARELTO) tablet 20 mg Given 20 mg, Oral, DAILY WITH SUPPER, First dose on Tue09/19/17 at 1700, Until Discontinued, Routine 09/20/2017 10:13 AM CDT 1 Tablet sennosides-docusate sodium (SENNA-S) Given 8.6-50 mg per tablet 1 Tablet 1 Tablet, Oral, TWO TIMES DAILY, First dose on Tue09/18/17 at 1400, Until Discontinued, Routine 09/20/2017 10:15 AM CDT 25 mL sodium chloride 0.9 % 250 mL flush bag Given 25 mL 25 mL, IV, SEE ADMIN INSTRUCTIONS, Starting Tue09/18/17 at 2132, Until Tue09/20/17 at 1844, Routine 09/18/2017 3:00 PM CDT 20 mL SODIUM CHLORIDE 0.9 % INJECTION SYRINGE Given (CABINET OVERRIDE) 1 dose, Starting Tue09/18/17 at 1452, Until Tue09/18/17 at 1500, Ayleen OCAMPO: cabinet override, 09/18/2017 8:41 PM CDT 10 mL SODIUM CHLORIDE 0.9 % INJECTION SYRINGE Given (CABINET OVERRIDE) 1 dose, Starting Tue09/18/17 at 2031, Until Tue09/18/17 at 204, Liz OCAMPO: cabinet override, 09/20/2017 4:13 PM CDT 10 mL sodium chloride flush injection 10 mL Given 10 mL, IV, SEE ADMIN INSTRUCTIONS, Starting Tue09/20/17 at 0435, Until Tue09/20/17 at 1844, Routine 10 mL Given 09/20/2017 12:39 PM CDT 10 mL Given 09/20/2017 4:46 AM CDT 09/20/2017 10:13 AM CDT 5 mL sodium chloride flush injection 5 mL Given 5 mL, IV, TWO TIMES DAILY, First dose o n 09/19/17 at 0900, Until Discontinued, Routine 5 mL Given 09/19/2017 8:25 PM CDT 5 mL Given 09/19/2017 9:49 AM CDT 09/19/2017 12:53 PM CDT 5 mL sodium chloride flush injection 5 mL Given 5 mL, IV, SEE ADMIN INSTRUCTIONS, Starting Tue09/18/17 at 2132, Until Tue09/20/17 at 1844, Routine 5 mL Given 09/19/2017 5:35 AM CDT 09/20/2017 10:15 AM CDT 1 Drop timolol (TIMOPTIC) 0.5 % ophthalmic Given solution 1 Drop 1 Drop, Left Eye, TWO TIMES DAILY, Firs t dose on Tue09/18/17 at 1430, Until Discontinued, Routine 1 Drop Given 09/19/2017 8:27 PM CDT 1 Drop Given 09/19/2017 9:47 AM CDT documented in this encounter Additional Health Concerns Assessment Noted Time A Depression follow-up plan has been documented for t paola patient 06/07/2017 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
--- OUTSIDE RECORDS SUMMARY | 2019-09-01 14:01 | XMS REPORT | Encounter Summary ---
Author Author [facility], [place], [place], [place], [place] Organization [facility], [place], [place], [place], [place] Address Unknown Phone Unavailable Care Team Providers Care Claim Agent Name Role Phone PCP Unavailable Encounter Details Care Team Description Date Type Department Rayna Gao MD [address] [place] [address] [id number] 08/09/2017 Abstract [facility] Family Medicine [address] [facility] [address] [place] [address] [phone] Social History Date Tobacco Use Types Packs/Day [...] for t paola patient 06/07/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
--- OUTSIDE RECORDS SUMMARY | 2019-09-01 14:01 | XMS REPORT | Encounter Summary ---
Author Author [facility] [place], [place], [facility] Organization [facility] [place], [place], [facility] Address Unknown Phone Unavailable Care Team Providers Care Line Runner Name Role Phone Jose Corona DO PCP Reason for Visit * Reason Comments Medication Review Home Medication Reconciliat ion Encounter Details Care Team Description Date Type Department Denise Islas Medication Review (Home Medication Recon ciliation) 09/26/2017 Telephone [facility] Pharmacotherapy Management [address] [place] [address] Social History Date Tobacco Use Types [...] encounter Miscellaneous Notes * Telephone Encounter - Denise Islas - 09/28/2017 10:01 AM CDT Medication Reconciliation Post Discharge Discharged 09/20/17 Medications were reviewed by phone 09/28/17 Medication Discrepancies Compared to EPIC/Discharge Summary: Sophia reports the following medications are NOT being taken as listed in EPIC/D ischarge summary medication list: olpatadine 0.1% solution 1 drop daily both eyes- not longer using Phenazopyridine 95 mg tab TID as needed for pain- not taking Prednisone 20 mg tab - done taking Tizanidine 4 mg tab every 6 hours as needed Other medications she is taking that are not on the [facility] medication list are: Montelukast 10 mg daily Cetirizine 10 mg daily Musinex OTC- as needed Methocarbamol 750 mg Bid Clarification: Will forward to Pharmacotherapy Pharmacist for out of network physician contact regard the above discrepancies as this patient has no current in network physici an. 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
--- OUTSIDE RECORDS SUMMARY | 2019-09-01 14:01 | XMS REPORT | Encounter Summary ---
Author Author [facility], [place], [place], [place], [place] Organization [facility], [place], [place], [place], [place] Address Unknown Phone Unavailable Care Team Providers Care Telephone Order Dispatcher Name Role Phone PCP Unavailable Encounter Details Care Team Description Date Type Department Rayna Gao MD [address] [place] [address] [phone] 08/03/2017 Abstract [facility] Family Medicine [address] [facility] [address] [place] [address] [phone] Social History Date Tobacco Use Types Packs/Day [...] for t paola patient 06/07/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
--- OUTSIDE RECORDS SUMMARY | 2019-09-01 14:01 | XMS REPORT | Encounter Summary ---
Author Author [facility], [place], [place], [place], [facility] [place] Organization [facility], [place], [place], [place], [facility] [place] Address Unknown Phone Unavailable Care Team Providers Care Ambulatory Nurse Name Role Phone Jose Corona DO PCP Reason for Referral * Eval and Treat (Routine) Referred By Contact Referred To Contact Status Reason Specialty Diagnoses / Procedures Jose Corona, DO [address] [address] Closed Pastoral Care Diagnoses Chronic obstructive pulmonary disease with acute exacerbation * Eval and Treat (Routine) Referred By Contact Referred To Contact Status Reason Specialty Diagnoses / Procedures Jose Corona, [address] [address] [address] [place] [address] [facility] Pharmacotherapy [facility] [address] [address] Closed Pharmacy Diagnoses Chronic obstructive pulmonary disease with acute exacerbation Reason for Visit * Reason Comments TRANSITION CARE MANAGEMENT Encounter Details Care Team Description Date Type Department Riya Chiang RN TRANSITION CARE MANAGEMENT 09/21/2017 Patient [facility] Ca re Outreach Management [address] [address] Social History Date Tobacco Use Types Packs/Day [...] as of this encounter Progress Notes * Riya Chiang RN - 09/21/2017 4:04 PM CDT [facility] Case Management Note: Updated patient is issue with diabetic supplies and that the PCP office will take care of it. She was happy with this information. No further calls needed. Thank you, Riya WAGONER, RN, [facility] Podiatric Surgeon 2/ ACO 2 [facility] Case Management * Riya Chiang RN - 09/21/2017 3:19 PM CDT Transition of Care Management: OUTBOUND CALL Name: Sophia Hawkins : 1965 DISCHARGE DATE:09/20/17 READMISSION RISK SCORE: 3 Readmission Risk (patient becomes high risk with a score of 8 or greater) 3 Total Score 3 COPD REASON FOR THE ADMISSION: Acute exacerbation of COPD FACILITY TYPE: Inpatient FACILITY NAME: [facility] PCP: Jose Corona DO Performed by: Riya Chiang RN on 09/21/2017. Spoke with: patientSophia CURRENT SYMPTOMS AND STATUS 1. Is patient feeling as well as they expected to feel at this point? yes 2. What problems has patient had since coming home? None 3. The following symptoms to report were discussed with patient: The following symptoms to report were discussed with patient: increased SOB/wheeze/cough not r elieved by as needed Inhalers/Nebulizer, increased sputum volume, change in sput um color to: koenig/brown/yellow/green, temperature > or = to 100.5 for > or = 12 hours REVIEW DISCHARGE AND FOLLOW-UP PLAN 1. Follow-Up Appointment Scheduled: Yes FOR: September 29, PROVIDER: Dr. Jose finn. Appointment within 7 days Appointment within 7 days after discharge: No. The appointment time is earliest available per office. 2. Is there anything that will keep the patient from making it to this appointm ent? No 3. Was the patient set up with any home health, medical equipment, or other ser vices upon discharge? To resume [facility] Services patient is supposed to receive: [facility] () What agency is delivering these services? [facility] 4. Identify any tests patient feels have been recommended, but not yet completed : Not Applicable. 5. Did the patient decide to quit smoking in the hospital yes quit months ago. D oes the patient have cessation resources yes SUPPORT/CAREGIVER ASSESSMENT 1. Patient's current living arrangement: lives with their family, is primary ca regiver for brother in law 2. Who is currently acting as patient's caregiver since discharge? Self 3. Is there anything patient is having difficulty with in terms of taking care of basic needs at home (ADL's)? No. FALL RISK She has had a fall with injury in the past year. Stressed importance of fall prevention and safety. Provided education FOOD INSECURITY SCREENING 1. Within the past 12 months have you worried whether your food would run out or did it run out before you were able to afford to buy more? No MEDICATION RECONCILIATION A. Reconcile medications patient is actually taking against the EMR List: Current and discharge medications reviewed and reconciled: Yes, reviewed new, ch anged and stopped meds only 1. Does the patient have a current updated list? yes 2. Was patient told to stop any existing medications or start any new ones? Ye s, to start:One Touch meter, strips and lancets, Breo Ellipta, Cane, Phenazopyri dine and Prednisone. 3. Patient has access to the updated/new medications? yes 4. Patient/caregiver understands medication changes that were made during hospi talization or ED Visit? yes 5. Patient/caregiver understands medication purpose(s) and dosing? yes 6. Do discrepancies exist? Referral to Pharmacotherapy for medication reconcili ation per department guidelines. B. Overall Medication Adherence: The patient reports adherence to this regimen Requested patient/caregiver to bring actual medicine bottles for all medicines t hey are taking to the follow up appointment. Educated patient on how to reach th eir provider or access appropriate medical assistance after hours or if office i s closed. Informed of Nurse human relations teacher service and how to access. Do you have an email address? No Would you like for me to email or mail you some information about your condition ? No/offered /declined EMMIs sent: no internet Materials sent via postal mail:No /offered /declined At this time, do you have any emotional or spiritual concerns? Requesting pray er and encouragement since just out of hospital Ambulatory Pastoral Care (REF [id number]) referral made:yes [facility]: Declined Staff: The following issues/concerns will be escalated to the primary care provider: P atient and pharmacy are requesting a Medicare acceptable diagnosis for the evertone tic supplies. The Pharmacy has already sent request to PCP. Spoke to Bella at the PCP office. Referrals made secondary to concerns: Pastoral Care / Pharmacotherapy How much time did it take to make this call: 77 minutes, including call prep, ch art review, documentation, interventions, and follow up. Patient qualifies for follow up calls, but patient is not interested. Thank you, Riya WAGONER, RN, [facility] Podiatric Surgeon 2/ ACO 2 [facility] Case Management * Riya Chiang RN - 09/21/2017 1:53 PM CDT [facility] Case Management Note: Patient discharged from [facility] yesterday. Chart revie tue. Per policy, attempted to contact patient. Message left stating purpose of c all to review discharge instructions and verify follow up appointment. Provided my name and callback number. Follow up appointment not scheduled prior to discharge. Message sent to Doctor Finder Staff to schedule appointment with PCP within 7 days. Thank you, Riya WAGONER RN Case Manager 2/ ACO 2 [facility] Case Management documented in this encounter Plan of Treatment Order Schedule Name Type Priority Associated Diag noses Ordered: 09/21/2017 AMB REFERRAL TO CLINICAL Outpatient Routine Chron ic obstructive PHARMACIST Referral pulmonary disease w ith acute exacerbation Ordered: 09/21/2017 AMB REFERRAL TO PASTORAL OP Referral No Routine Chron ic obstructive CARE Cosign pulmonary disease w ith acute exacerbation documented as of this encounter Visit Diagnoses Diagnosis Chronic obstructive pulmonary disease w ith acute exacerbation - Primary Obstructive chronic bronchitis with exa cerbation documented in this encounter Additional Health Concerns Assessment Noted Time A Depression follow-up plan has been documented for t he patient 06/07/2017 12:05 PM DEVELOPMENT ASSISTANT documented as of this encounter
--- OUTSIDE RECORDS SUMMARY | 2019-09-01 14:01 | XMS REPORT | Encounter Summary ---
Author Author [facility], [place], [place], [place], [place] Organization [facility], [place], [place], [place], [facility] Address Unknown Phone Unavailable Care Team Providers Care Temporary Receptionist Name Role Phone Jose CoronaKristie DO PCP Reason for Visit * Reason Comments Case Management Screen Encounter Details Care Team Description Date Type Department Aimee Cody, telephone maintainer (Screen) 09/21/2017 Patient [facility] Ambulatory Ca re Outreach Management [address] [address] Social History Date Tobacco Use Types Packs/Day [...] of this encounter Progress Notes * Aimee Cody RN - 09/21/2017 10:36 AM CDT [facility] Case Management Note: Post discharge screening completed to determine elig ibility for enrollment in Case Management follow up. Hospitalization was determi annalisa to be related to HF/COPD/Pneumonia. May benefit from workflow. Routed to [facility] for assignment to . 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
--- OUTSIDE RECORDS SUMMARY | 2019-09-01 14:01 | XMS REPORT | Encounter Summary ---
Author Author [facility], [place], [place], [place] Organization [facility] [place], [place], [place] Address Unknown Phone Unavailable Care Team Providers Care Apprenticeship Representative Name Role Phone Jose CoronaKristie DO PCP Reason for Visit * Reason Comments Spiritual Distress Encounter Details Care Team Description Date Type Department John Samson Spiritual Distress 09/23/2017 Telephone [facility] in Pastoral Care [address] [facility] [place] [address] Social History Date Tobacco Use Types [...] as of this encounter Progress Notes * John Samson - 09/23/2017 11:06 AM CDT Responded to TCM referral to contact patient. Patient's primary conversation focus surrounds her caregiving relationship with her rmwsoww-ya-dym. This relationship causes the patient stress and she feels t hat it isolates her from sources of support and her miguel community. Tongue Carrier encouraged meaning making. Also encouraged the patient to firmly set elba ndaries with her jjgctyn-df-oin to clarify which behaviors she will not tolerate . Offered prayer with patient. Patient expressed thanks for the visit. Pastoral Services will follow PRN. Chaplain John Samson Office ext. [phone] Pager [phone] documented in this encounter Plan of Treatment Not on filedocumented as of this encounter Visit Diagnoses Not on filedocumented in this encounter Additional Health Concerns Assessment Noted Time A Depression follow-up plan has been documented for t he patient 06/07/2017 12:05 PM PROMOTIONS TEAM LEADER documented as of this encounter
--- OUTSIDE RECORDS SUMMARY | 2019-09-01 14:01 | XMS REPORT | Encounter Summary ---
Author Author [facility], [place], [place], [place], [place] Areas Organization [facility] [place], [place], [place], [place] Areas Address Unknown Phone Unavailable Care Team Providers Care Inspector Chief Name Role Phone Rayna Gao MD PCP Encounter Details Care Team Description Date Type Department Edilberto Urbina MD [address] [facility] [address] [place], [place] [address] 07/31/2017 Chart Note [facility] Family Medicine [address] [place] [address] [place] [phone] Social History Date Tobacco Use Types Packs/Day [...] for t paola patient 06/07/2017 12:05 PM COIL WINDER documented as of this encounter
--- OUTSIDE RECORDS SUMMARY | 2019-09-01 14:01 | XMS REPORT | Encounter Summary ---
Author Author [facility], [place], [place], [place], [place] Areas Organization [facility], [place], [place], [place], [place] Areas Address Unknown Phone Unavailable Care Team Providers Care Wet Pan Operator Name Role Phone PCP Unavailable Encounter Details Care Team Description Date Type Department Rayna Gao MD [address] [place] [id number] 08/03/2017 Abstract [facility] Family Medicine [address] [facility] [address] [place] [phone] Social History Date Tobacco Use Types Packs/Day [...] for t paola patient 06/07/2017 12:05 PM TOLL BRIDGE ATTENDANT documented as of this encounter
--- OUTSIDE RECORDS SUMMARY | 2019-09-01 14:01 | XMS REPORT | Encounter Summary ---
Author Author [facility], [place], [place], [place], [facility] Organization [facility], [place], [place], [place], [place] Address Unknown Phone Unavailable Care Team Providers Care Intramural Director Name Role Phone ChloeJose king Ciaran DO PCP Reason for Visit * Reason Comments TRANSITION CARE NOC TCM APPT MANAGEMENT Encounter Details Care Team Description Date Type Department Krista Lowry 09/21/2017 Nurse Triage Jerica Nurse pay station attendant [address] [address] Social History Date Tobacco Use [...] * Telephone Encounter - Krista Lowry - 09/21/2017 3:36 PM CDT Reason for Disposition TCM notification/request researched and appt already scheduled or TCM criter ia not met? Protocols used: SHARIF NOC P ANSWERING SERVICE NOC added appt to appt desk. * Telephone Encounter - Krista Lowry - 09/21/2017 3:35 PM CDT Regarding: [employer] Message ----- Message from Krista Lowry sent at 09/21/2017 3:35 PM CDT ----- Patient's address on file: [address] [facility] [address] Patient's current location: Same as above documented in this encounter Plan of Treatment Not on filedocumented as of this encounter Visit Diagnoses Not on filedocumented in this encounter Additional Health Concerns Assessment Noted Time A Depression follow-up plan has been documented for t paola patient 06/07/2017 12:05 PM SECURITY PATROL OFFICER documented as of this encounter
--- OUTSIDE RECORDS SUMMARY | 2019-09-01 14:02 | XMS REPORT | Encounter Summary ---
Author Author [facility], [place], [place], [place], [place] Areas Organization [facility], [place], [place], [place], [place] Areas Address Unknown Phone Unavailable Care Team Providers Care Research Project Manager Name Role Phone Rayna Gao MD PCP Encounter Details Care Team Description Date Type Department Rayna Gao MD [address] [place], [place] [address] 06/22/2017 Abstract [facility] Family Medicine [address] [facility] [address] [place] [phone] Social History Date Tobacco Use Types Packs/Day [...] for t paola patient 06/07/2017 12:05 PM SAND SIFTER documented as of this encounter
--- OUTSIDE RECORDS SUMMARY | 2019-09-01 14:02 | XMS REPORT | Encounter Summary ---
Author Author [facility], [place], [place], [place], [place] Areas Organization [facility], [place], [place], [place], [place] Areas Address Unknown Phone Unavailable Care Team Providers Care Slasher Tender Helper Name Role Phone Rayna Gao MD PCP Encounter Details Care Team Description Date Type Department Rayna Gao MD [address] [place], [place] [phone] 06/14/2017 Orders Only [facility] Family Medicine [address] [facility] [address], [place] [phone] Social History Date Tobacco Use Types Packs/Day [...] for t paola patient 06/07/2017 12:05 PM MANUAL WINDER documented as of this encounter
--- OUTSIDE RECORDS SUMMARY | 2019-09-01 14:02 | XMS REPORT | Encounter Summary ---
Author Author [facility], [place], [place], [place] [facility] Organization [facility] [place], [place], [place] Areas Address Unknown Phone Unavailable Care Team Providers Care Admissions Assistant Name Role Phone Rayna Gao MD PCP Encounter Details Care Team Description Date Type Department Provider, Abstract Spg 07/23/2017 Chart Note [facility] Family Medicine [address] [place] [address] [facility] [place] [phone] Social History Date Tobacco Use Types Packs/Day [...] for t paola patient 06/07/2017 12:05 PM SUPERVISOR PHOSPHORIC ACID documented as of this encounter
--- OUTSIDE RECORDS SUMMARY | 2019-09-01 14:02 | XMS REPORT | Encounter Summary ---
Author Author [facility], [place], [place], [place], [place] Areas Organization [facility], [place], [place], [place], [place] Areas Address Unknown Phone Unavailable Care Team Providers Care Building Code Inspector Name Role Phone Rayna Gao MD PCP Encounter Details Care Team Description Date Type Department Paul Pelletier MD [address] [phone] 07/06/2017 Chart Note [facility] Family Medicine [address] [facility] [address] [place] [phone] Social History Date Tobacco Use Types Packs/Day [...] for t paola patient 06/07/2017 12:05 PM MUD JACK NOZZLE WORKER documented as of this encounter
--- OUTSIDE RECORDS SUMMARY | 2019-09-01 14:02 | XMS REPORT | Encounter Summary ---
Author Author [facility], [place], [place], [place], [place] Areas Organization [facility], [place], [place], [place], [place] Areas Address Unknown Phone Unavailable Care Team Providers Care Paper Baler Name Role Phone Rayna Gao MD PCP Encounter Details Care Team Description Date Type Department Rayna Gao MD [address] [place], [place] [address] 06/21/[address] [facility] Family Medicine [address] [facility] [address], [place] [address] Social History Date Tobacco Use Types [...] for t paola patient 06/07/2017 12:05 PM POLE CUTTER documented as of this encounter
--- OUTSIDE RECORDS SUMMARY | 2019-09-01 14:02 | XMS REPORT | Encounter Summary ---
Author Author [facility], [place], [place], [place], [facility] Organization [facility] [place], [place], [place], [facility] Address Unknown Phone Unavailable Care Team Providers Care Manufacture Specialist Name Role Phone Rayna Gao MD PCP Encounter Details Care Team Description Date Type Department Rayna Gao MD [address] [place] [phone] 07/08/2017 Orders Only [address] [place] [phone] Social History Date Tobacco Use Types [...] Procedure Name Priority Date/Time Associated Diag nosis LIPID PANEL Routine 06/09/2017 documented in this encounter Results * LIPID PANEL (06/09/2017) Specimen Blood Narrative Performed At This result has an attachment that is n ot available. Performing Organization Address City/State/Zipcode Ph one Number [facility] CLIA #[id number] [place] [address] - [address] [place] [address] documented in this encounter Visit Diagnoses Not on filedocumented in this encounter Additional Health Concerns Assessment Noted Time A Depression follow-up plan has been documented for t paola patient 06/07/2017 12:05 PM BENCH PRECISION ASSEMBLER documented as of this encounter
--- OUTSIDE RECORDS SUMMARY | 2019-09-01 14:02 | XMS REPORT | Encounter Summary ---
Author Author [facility], [place], [place], [place], [place] Areas Organization [facility], [place], [place], [place], [place] Areas Address Unknown Phone Unavailable Care Team Providers Care Loose Hand Packer Name Role Phone Rayna Gao MD PCP Encounter Details Care Team Description Date Type Department Rayna Gao MD [address] [place], [place] [address] 06/24/2017 Abstract [facility] Family Medicine [address] [facility] [address], [place] [address] Social History Date Tobacco Use [...] for t paola patient 06/07/2017 12:05 PM LOCAL DRIVER documented as of this encounter
--- OUTSIDE RECORDS SUMMARY | 2019-09-01 14:02 | XMS REPORT | Encounter Summary ---
Author Author [facility] Jah Garcia, [place], [place], [place] Norma Organization [facility], Jah Garcia [place], [place], [place] Address Unknown Phone Unavailable Care Team Providers Care Buckle Coverer Name Role Phone Rayna Gao MD PCP Reason for Visit * Reason Comments Information Encounter Details Care Team Description Date Type Department Rayna Gao MD [address], [place] [phone] Information 06/14/2017 Telephone [facility] Family Medicine [address] [place] [address] [address] [place] [phone] Social History Date Tobacco Use Types [...] encounter Miscellaneous Notes * Telephone Encounter - Rosemary Jovel CMA - 06/14/2017 10:58 AM JAW SKINNER nurse called to report that the patient doesn't want to have anything done an ymore, no more port flushes or take any of her meds except pain med, she is upse t that the dr giving her pain med is tapering her down. She reports of having di arrhea again the kind she gets when she has a blockage and pt doesn't care and w on't seek treatment for it. The nurse said she doesn't feel she will harm her se lf but more just feeling sorry for her self. I advised the nurse that if she fee ls the patient is going to harm her self then she needs to call the appropriate people and have her 96 hold. She said ok....Rosemary Jovel CMA, 06/14/2017 11:02 AM SKINNER documented in this encounter Plan of Treatment Not on filedocumented as of this encounter Visit Diagnoses Not on filedocumented in this encounter Additional Health Concerns Assessment Noted Time A Depression follow-up plan has been documented for t paola patient 06/07/2017 12:05 PM JAW SKINNER documented as of this encounter
--- OUTSIDE RECORDS SUMMARY | 2019-09-01 14:02 | XMS REPORT | Encounter Summary ---
Author Author [facility], [place], [place], [place], [place] Areas Organization [facility], [place], [place], [place], [place] Areas Address Unknown Phone Unavailable Care Team Providers Care Strawhat Sizer Name Role Phone Rayna Gao MD PCP Encounter Details Care Team Description Date Type Department Rayna Gao MD [address] [place], [place] [address] 06/24/2017 Abstract [facility] Family Medicine [address] [facility] [address], [place] [address] Social History Date Tobacco Use [...] for t paola patient 06/07/2017 12:05 PM REPLANTER documented as of this encounter
--- OUTSIDE RECORDS SUMMARY | 2019-09-01 14:02 | XMS REPORT | Encounter Summary ---
Author Author [facility], [place], [place], [place], [facility] Organization [facility], [place], [place], [place], [place] Address Unknown Phone Unavailable Care Team Providers Care Short Haul Driver Name Role Phone Rayna Gao MD PCP Reason for Referral * Eval and Treat (Routine) Referred By Contact Referred To Contact Status Reason Specialty Diagnoses / Procedures Rayna Gao MD [address] [place] [id number] [facility] [address] [phone] Closed Psychiatry Diagnoses Moderate single current episode of major depressive disorder * Eval and Treat (Routine) Referred By Contact Referred To Contact Status Reason Specialty Diagnoses / Procedures Rayna Gao MD [address] [place] [id number] [facility] [address] [place] [address] Closed Pain Management Diagnoses Chronic pain syndrome Reason for Visit * Reason Comments Establish Care Needs PCP and is from [facility] Encounter Details Care Team Description Date Type Department Rayna Gao MD [address] [place] [id number] HTN (hypertension), benign (Primary Dx); Hypothyroidism due to acquired atrophy of thyroid; Hypercholesterolemia; Chronic pain syndrome; Primary osteoarthritis involving multiple joints; Moderate single current episode of major depressive disorder; Chronic obstructive pulmonary disease, unspecified COPD type; Tobacco use; PVD (peripheral vascular disease); Chronic anticoagulation; Hx of diabetes mellitus; Other local lupus erythematosus 06/07/2017 Office Visit [facility] Medicine th [place] [address] [place] [id number] Social History Date Tobacco Use Types Packs/Day [...] Signs Reading Time Taken Comments Vital Sign 122/86 06/07/2017 11:22 AM STEEL FLOOR PAN PLACING SUPERVISOR Blood Pressure 99 06/07/2017 11:22 AM STEEL FLOOR PAN PLACING SUPERVISOR Pulse 36.8 C (98.3 F) 06/07/2017 11:22 AM STEEL FLOOR PAN PLACING SUPERVISOR Temperature 20 06/07/2017 11:22 AM STEEL FLOOR PAN PLACING SUPERVISOR Respiratory Rate 98% 06/07/2017 11:22 AM STEEL FLOOR PAN PLACING SUPERVISOR Oxygen Saturation - - Inhaled Oxygen Concentration 68.6 kg (151 lb 3.2 oz) 06/07/2017 11:22 AM STEEL FLOOR PAN PLACING SUPERVISOR Weight 171.5 cm (5' 7.5") 06/07/2017 11:22 AM STEEL FLOOR PAN PLACING SUPERVISOR Height 23.33 06/07/2017 11:22 AM STEEL FLOOR PAN PLACING SUPERVISOR Body Mass Index documented in this encounter Progress Notes * Rayna Goa MD - 06/07/2017 11:55 AM STEEL FLOOR PAN PLACING SUPERVISOR HISTORY OF PRESENT ILLNESS Sophia Hawkins, a 51 y.o. female presents with a Chief Complaint of Establish C are (Needs PCP and is from [place]) Subjective HPI Here to establish care. States she has HTN - takes Lisinopril. Hx of diabetes , was on insulin in the past - states she lost a lot of weight fr om her chronic pancreatitis and she is no longer diabetic, does not take meds an ymore for diabetes. She is takes thyroid supplement. She has depression, takes Cymbalta - saw psychiatrist in the past. Feeling more depressed due to recent loss of her . Admits has a lot of stress, also ta cheryl care of her sick brother in law. She has chronic pain - hx of multiple abdominal surgeries , chronic pancreatitis , bowel obstruction. Sees GI as well. Takes Morphine for pain control. She has COPD, still smokes. She has PVD - states she has a port that nurse flushes daily. States her veins a re all clogged up. She is on Xarelto. States she has lupus as well. Past medical, surgical, social, and family history have been reviewed as well as current medications. REVIEW OF SYSTEMS Review of Systems Constitutional: Negative for activity change, chills, fatigue, fever and unexpec raphael weight change. HENT: Negative for congestion, rhinorrhea and sinus pressure. Eyes: Negative for pain and visual disturbance. Respiratory: Negative for cough and shortness of breath. Cardiovascular: Negative for chest pain, palpitations and leg swelling. Gastrointestinal: Negative for abdominal distention, abdominal pain, blood in st ool, constipation, diarrhea, nausea and vomiting. Genitourinary: Negative for dysuria and hematuria. Musculoskeletal: Positive for arthralgias, back pain and myalgias. Skin: Negative for rash. Neurological: Negative for dizziness, weakness, numbness and headaches. Psychiatric/Behavioral: Positive for dysphoric mood. Negative for suicidal ideas . The patient is nervous/anxious. The patient is not hyperactive. Objective PHYSICAL EXAM BP 122/86 | Pulse 99 | Temp 98.3 F (36.8 C) (Temporal) | Resp 20 | Ht 5' 7.5" (1.715 m) | Wt 68.6 kg (151 lb 3.2 oz) | SpO2 98% | BMI 23.33 kg/m Physical Exam Constitutional: She is oriented to person, place, and time. No distress. Cardiovascular: Normal rate and regular rhythm. Pulmonary/Chest: Effort normal and breath sounds normal. No respiratory distress . She has no wheezes. Abdominal: Soft. Bowel sounds are normal. She exhibits no distension and no mass . There is no tenderness. There is no guarding. Musculoskeletal: She exhibits no edema. Neurological: She is alert and oriented to person, place, and time. Skin: No pallor. Psychiatric: She has been tearful throughout this visit Nursing note and vitals reviewed. Assessment ASSESSMENT and PLAN: Sophia was seen today for establish care. Diagnoses and all orders for this visit: HTN (hypertension), benign - COMPREHENSIVE METABOLIC PANEL; Future - LIPID PANEL; Future - TSH; Future - T4 FREE; Future Hypothyroidism due to acquired atrophy of thyroid - TSH; Future - T4 FREE; Future Hypercholesterolemia - COMPREHENSIVE METABOLIC PANEL; Future - LIPID PANEL; Future Chronic pain syndrome Primary osteoarthritis involving multiple joints - AMB REFERRAL TO PAIN CLINIC Moderate single current episode of major depressive disorder - AMB REFERRAL TO PSYCHIATRY Chronic obstructive pulmonary disease, unspecified COPD type Tobacco use - discussed smoking cessation PVD (peripheral vascular disease) Chronic anticoagulation - cont. meds Hx of diabetes mellitus - HEMOGLOBIN A1C; Future Other local lupus erythematosus - obtain previous medical records Other orders - levothyroxine 75 mcg tablet; Take 75 mcg by mouth daily filler shaker. - lisinopril (PRINIVIL) 20 mg tablet; Take 20 mg by mouth daily. - simvastatin (ZOCOR) 20 mg tablet; Take 20 mg by mouth late in the day. - tiotropium (SPIRIVA) 18 mcg capsule; Take 18 mcg by inhalation daily. - cholecalciferol, Vitamin D3, 5,000 unit Capsule; Take 5,000 Units by mouth 2 times daily. - rivaroxaban (XARELTO) 20 mg Tablet; Take 20 mg by mouth daily. L FLOOR PAN PLACING SUPERVISOR * Rayna Gao MD - 06/07/2017 11:24 AM STEEL FLOOR PAN PLACING SUPERVISOR Fall Risk She has had no falls in the past year. Tobacco Intervention She was counseled to discontinue tobacco use. Depression Screen Positive: PHQ-2 score > 2 or PHQ-9 score > 9 PHQ-2 Total: 5 (06/07/17 1100) PHQ-9 Total: 11 (06/07/17 1100) Her antidepressant medication was reviewed L FLOOR PAN PLACING SUPERVISOR documented in this encounter Plan of Treatment Order Schedule Name Type Priority Associated Diag noses Ordered: 06/07/2017 AMB REFERRAL TO PAIN Outpatient Routine Chronic p ain syndrome CLINIC Referral Ordered: 06/07/2017 AMB REFERRAL TO Outpatient Routine Moderate Singl e Current PSYCHIATRY Referral Episode Of Major Depressive Disorder documented as of this encounter Visit Diagnoses Diagnosis HTN (hypertension), benign - Primary Essential hypertension, benign Hypothyroidism due to acquired atrophy of thyroid Hypercholesterolemia Pure hypercholesterolemia Chronic pain syndrome Primary osteoarthritis involving multip le joints Moderate single current episode of ramirez r depressive disorder Chronic obstructive pulmonary disease, unspecified COPD type Tobacco use Tobacco use disorder PVD (peripheral vascular disease) Peripheral vascular disease, unspecifie d Chronic anticoagulation Encounter for long-term (current) use o f anticoagulants Hx of diabetes mellitus Personal history of other endocrine, me tabolic, and immunity disorders Other local lupus erythematosus documented in this encounter Additional Health Concerns Assessment Noted Time A Depression follow-up plan has been documented for t paola patient 06/07/2017 12:05 PM STEEL FLOOR PAN PLACING SUPERVISOR documented as of this encounter
--- OUTSIDE RECORDS SUMMARY | 2019-09-01 14:02 | XMS REPORT | Encounter Summary ---
Author Author [facility] [place], [place], [place] Areas Organization [facility], [place], [place], [place], [place] Areas Address Unknown Phone Unavailable Care Team Providers Care Chief Engineer'S Helper Name Role Phone Rayna Gao MD PCP Reason for Visit * Reason Comments Information Encounter Details Care Team Description Date Type Department Rayan Gao MD [address], [place] [id number] Information 07/22/2017 Telephone [facility] Family Medicine [address] [place] [address] [place] [phone] Social History Date Tobacco Use Types [...] encounter Miscellaneous Notes * Telephone Encounter - Rayna Escalera LPN - 07/22/2017 11:55 AM CDT Home health called and stated that patient did not like the doctors she went to see for pain and that she just wants to have her port pulled out and that she wa nts to be with her who has passed and home health is getting ready to di radha patient, she was suppose to come back and see us last month and she did not and we have only seen her once, not sure what we can do for patient at this time.Rayna Escalera LPN, 07/22/2017 12:00 PM documented in this encounter Plan of Treatment Not on filedocumented as of this encounter Visit Diagnoses Not on filedocumented in this encounter Additional Health Concerns Assessment Noted Time A Depression follow-up plan has been documented for t he patient 06/07/2017 12:05 PM MOLD MAKER PLASTIC MOLDS documented as of this encounter
--- OUTSIDE RECORDS SUMMARY | 2019-09-01 14:02 | XMS REPORT | Encounter Summary ---
Author Author [facility] [place], [place], [place], [place] Areas Organization [facility] [place] [place], [place] Address Unknown Phone Unavailable Care Team Providers Care Compressor Station Engineer Name Role Phone Rayna Gao MD PCP Reason for Visit * Reason Comments Information lab orders/home health [place] Encounter Details Care Team Description Date Type Department Rayna Gao MD [address] [place] [id number] Information (lab orders/home health agen [place]) 06/07/2017 Telephone [facility] Family Medicine [address] [place] [address] [address] [place] [phone] Social History Date Tobacco Use Types [...] Telephone Encounter - Rayna Escalera LPN - 06/07/2017 3:48 PM MUSHROOM CULTIVATOR Called patient to ask about her home health agency as she gave me a fax number a nd family member stated that she would not be able to call me back till tomorrow .Rayna Escalera LPN, 06/07/2017 3:49 PM ROOM CULTIVATOR documented in this encounter Plan of Treatment Not on filedocumented as of this encounter Visit Diagnoses Not on filedocumented in this encounter Additional Health Concerns Assessment Noted Time A Depression follow-up plan has been documented for t paola patient 06/07/2017 12:05 PM MUSHROOM CULTIVATOR documented as of this encounter
--- OUTSIDE RECORDS SUMMARY | 2019-09-01 14:02 | XMS REPORT | Encounter Summary ---
Author Author [facility], Jah Garcia, [place], [place], [place] [facility] Organization [facility], Jah Garcia, [place], [place], [place] Norma Address Unknown Phone Unavailable Care Team Providers Care After School Teacher Name Role Phone Sunshine Elmore KING PCP [phone] Reason for Visit * Reason Comments Back Pain onset 2 days ago Groin Pain Encounter Details Care Team Description Date Type Department Deepali Canela MD 100 [facility] [place], [place] [id number] Pyelonephritis (Primary Dx) 12/26/2016 Emergency [facility] in - Emergency Department 12/27/2016 100 [facility] [place] [id number] Social History Date Tobacco Use Types Packs/Day Years Used Quit: 05/06/2011 Former Smoker Cigarettes 0 25 Smokeless Tobacco: Never Used Drinks/Week oz/Week Comments Alcohol Use No Sex Assigned at Date Recorded Not on file Industry Job Start Date Occupation Not on file Not on file Not on file Travel End Travel History Travel Start No recent travel history available. documented as of this encounter Last Filed Vital Signs Reading Time Taken Comments Vital Sign 172/86 12/26/2016 9:28 PM CDT Blood Pressure - - Pulse 36.4 C (97.5 F) 12/26/2016 9:28 PM CDT Temperature 16 12/26/2016 9:28 PM CDT Respiratory Rate 96% 12/26/2016 9:28 PM CDT Oxygen Saturation - - Inhaled Oxygen Concentration 68 kg (150 lb) 12/26/2016 9:28 PM CDT Weight 170.2 cm (5' 7") 12/26/2016 9:28 PM CDT Height 23.49 12/26/2016 9:28 PM CDT Body Mass Index documented in this encounter Discharge Instructions * Instructions* Deepali Canela MD - 12/26/2016 Follow up with your doctor in 2-3 days. Return to the emergency department for u ncontrolled/worsening pain, fever, uncontrolled vomiting, trouble breathing, abd ominal pain, or any other concerning symptoms. * Attachments The following attachments cannot be sent through Care Everywhere.* PYELONEPHRITIS (SWISS) documented in this encounter Medications at Time of Discharge Start Date End Date Medication Sig Dispensed Refills DULoxetine (CYMBALTA) 60 Take 60 mg by [...] mouth 2 times daily. ALBUTEROL INHALATION 0 12/26/2016 01/05/2017 cefdinir (OMNICEF) 300 mg Take 1 20 Capsule 0 capsule Capsule (300 mg) by mouth every 12 hours for 10 days. 10/03/2017 tiZANidine (ZANAFLEX) 4 Take 4 mg by 0 mg Tablet mouth every 6 hours as needed for Spasm. 12/26/2016 09/20/2017 ondansetron (ZOFRAN ODT) Place 1 10 Tablet 0 4 mg Tablet, Rapid Tablet (4 mg) Dissolve under tongue every 8 hours as needed for Nausea/Emesis . 10/03/2017 olopatadine (PATANOL) 0.1 Administer 1 0 % OP solution Drop in both eyes 1 time daily as needed. Daily Prn allergies documented as of this encounter ED Notes * Haley Louis RN - 12/26/2016 9:51 PM CDT Pt states she has had back pain that started a couple of days ago and she also c o bilat groin pain and states she thinks she might have another kidney stone. Sh e states she has had urinary urgency and she has burning with urination. * Myah Moreno RN - 12/26/2016 9:44 PM CDT Bed: ED 02 Expected date: Expected time: Means of arrival: Comments: Fidencio Magy [id number] * Deepali Canela MD - 12/26/2016 9:21 PM CDT HISTORY OF PRESENT ILLNESS Sophia Hawkins, a 51 y.o. female presents to the ED with a Chief Complaint of B ack Pain and Groin Pain Subjective HPI Comments: H & P PERFORMED AT: 2200 51 Y/O FEMALE PRESENTS TO THE ED C/O LOWER BACK PAIN THAT RADIATES TO HER GROINS BILATERALLY. SHE REPORTS THAT SHE HAS A HX OF KIDNEY STONES AND HER CURRENT SX FEEL SIMILAR TO HER PRIOR STONES. SHE C/O NEEDING TO URINATE FREQUENTLY BUT IS O NLY ABLE TO PRODUCE A LITTLE URINE. SHE DENIES FEVER, N/V/D, DYSURIA, HEMATURIA, OR ANY OTHER SX AT THIS TIME. HER MEDICAL HX INCLUDES BOWEL OBSTRUCTIONS, LUPUS, CHRONIC PANCREATITIS, ASTHMA, AND COPD. ALLERGIES: ASA, CODEINE, COMPAZINE, IMTIREX, INAPSINE, REGLAN, JUAN-30, TORADOL. History provided by: The patient planisher used: No Arrived by: Private vehicle Arrived from: Home Back Pain Location: Lumbar spine Radiates to: GROIN. Associated symptoms: abdominal pain (CHRONIC, UNCHANGED) Associated symptoms: no bladder incontinence, no bowel incontinence, no chest pa in, no dysuria, no fever, no headaches, no numbness, no tingling and no weakness REVIEW OF SYSTEMS Review of Systems Constitutional: Negative for chills and fever. HENT: Negative for congestion. Respiratory: Negative for cough and shortness of breath. Cardiovascular: Negative for chest pain. Gastrointestinal: Positive for abdominal pain (CHRONIC, UNCHANGED). Negative for bowel incontinence, diarrhea, nausea and vomiting. Genitourinary: Positive for frequency. Negative for bladder incontinence and dys uria. GROIN PAIN. Musculoskeletal: Positive for back pain. Negative for neck pain. Skin: Negative for rash and wound. Neurological: Negative for tingling, weakness, numbness and headaches. Psychiatric/Behavioral: The patient is not nervous/anxious. All other systems reviewed and are negative. PAST MEDICAL HISTORY REVIEWED MEDICAL: Patient has a past medical history of Anxiety; Asthma; BiPAP (biphasic positive airway pressure) dependence; Bowel obstruction; Bowel obstruction; Chest pain; Chronic pain; COPD (chronic obstructive pulmonary disease); CRI (chronic renal i nsufficiency); Depression; Diabetes mellitus; HTN (hypertension); Hyperlipidemia ; Hypothyroidism; Lupus; Lupus; Obstructive sleep apnea (adult) (pediatric); Pul monary embolism (june 2010); and Thromboembolism. She also has no past medical history of Unspecified adverse effect of anesthesia. SURGICAL: Patient has a past surgical history that includes appendectomy; hysterectomy; c holecystectomy; knee surgery; insj tunneled ctr vad w/subq port age 4 yr/> (10/08/2010); chg anes freeing bowel adhesion,enterolysis; gallbladder surgery; knee arthroscopy (Left); tumor removal; ercp w/sphincterotomy/papillotomy (N/A, 08/30/2014); and ercp,rmv f.b./change stent (N/A, 08/30/2014). FAMILY: Patient's family history includes Cancer in her mother; Healthy in her brother a nd sister; Heart Disease in her father. SOCIAL: reports that she quit smoking about 5 years ago. Her smoking use included Cigar ettes. She smoked 0.00 packs per day for 25.00 years. She has never used smokele ss tobacco. She reports that she does not drink alcohol or use illicit drugs. No history on file. Social History Other Topics Concern Not on file PROBLEM LIST: Patient has Acute bronchitis; Chronic airway obstruction, not elsewhere classifi ed; and CO2 narcosis on her problem list. ALLERGIES Adhesive tape-silicones; Aspirin; Codeine; Compazine [prochlorperazine edisylate ]; Imitrex [sumatriptan succinate]; Inapsine [droperidol]; Reglan [metoclopramid e]; Juan-30; and Toradol [ketorolac] HOME MEDICATIONS Patient's Home Medications Current Home Medications ALBUTEROL INHALATION DIPHENHYDRAMINE (BENADRYL) 25 MG ORAL TABLET DOCUSATE SODIUM (COLACE) 100 MG ORAL CAPSULE DULOXETINE (CYMBALTA) 60 MG CAPSULE, DELAYED RELEASE(E.C.) LEVOTHYROXINE (SYNTHROID) 100 MCG ORAL TABLET MORPHINE (MS IR) 15 MG ORAL TABLET MORPHINE SR (MS CONTIN) 30 MG ORAL TABLET OLOPATADINE (PATANOL) 0.1 % OP SOLUTION OMEPRAZOLE (PRILOSEC) 20 MG ORAL CPDR TIMOLOL (TIMOPTIC) 0.5 % SOLUTION TIZANIDINE (ZANAFLEX) 4 MG TABLET Medications Modified during this Encounter Medications Discontinued during this Encounter AMLODIPINE (NORVASC) 5 MG ORAL TABLET BUMETANIDE (BUMEX) 2 MG ORAL TABLET CHOLECALCIFEROL, VITAMIN D3, 5,000 UNIT ORAL CAP CITALOPRAM (CELEXA) 20 MG ORAL TABLET CLOPIDOGREL (PLAVIX) 75 MG ORAL TAB ERGOCALCIFEROL (VITAMIN D) 50,000 UNIT ORAL CAPSULE FENOFIBRATE NANOCRYSTALLIZED (TRICOR) 145 MG ORAL TABLET GABAPENTIN (NEURONTIN) 800 MG TABLET INSULIN ASPART (NOVOLOG JR PENFILL) 100 UNIT/ML SUBCUT CRTG INSULIN GLARGINE (LANTUS) 100 UNIT/ML SUBCUT SOLN LEVALBUTEROL (XOPENEX) 1.25 MG/0.5 ML INHALATION NEBU LISINOPRIL (PRINIVIL) 10 MG ORAL TABLET METHOCARBAMOL (ROBAXIN) 500 MG TABLET ONDANSETRON (ZOFRAN) 8 MG ORAL TAB OXYCODONE (OXYCONTIN) 20 MG CONTROLLED RELEASE 12 HOUR CRUSH RESISTANT TABLET OXYCODONE-ACETAMINOPHEN (PERCOCET) 7.5-500 MG TABLET POTASSIUM CHLORIDE (KLOR-CON,K-TAB) 10 MEQ ORAL TBSR PREDNISONE (DELTASONE) 10 MG ORAL TABLET QUETIAPINE (SEROQUEL) 50 MG ORAL TABLET RIVAROXABAN (XARELTO) 20 MG TABLET SIMVASTATIN (ZOCOR) 10 MG TABLET TRIMETHOPRIM-SULFAMETHOXAZOLE (BACTRIM DS) 800-160 MG ORAL TABLET Objective PHYSICAL EXAM INITIAL VS BP: (!) 172/86 (12/26/162127), Heart Rate: 77 bpm (12/26/162127), Resp: 16 (2127), Temp: 97.5 F (36.4 C) (12/26/162127), Temp src: Oral (2127), SpO2: 96 % (12/26/162127), Height: 5' 7" (170.2 cm) (12/26/162127), W eight: 68 kg (150 lb) (12/26/162127), BMI (Calculated): 23.49 (12/26/162127) N o LMP recorded. Patient has had a hysterectomy. Physical Exam Constitutional: She is oriented to person, place, and time. She appears well-dev eloped and well-nourished. No distress. HENT: Head: Normocephalic and atraumatic. Right Ear: External ear normal. Left Ear: External ear normal. Nose: Nose normal. Mouth/Throat: Oropharynx is clear and moist and mucous membranes are normal. Eyes: Conjunctivae are normal. Right eye exhibits no discharge. Left eye exhibit s no discharge. Neck: Neck supple. No tracheal deviation present. Cardiovascular: Normal rate, regular rhythm, normal heart sounds and intact dist al pulses. Exam reveals no gallop and no friction rub. No murmur heard. Pulmonary/Chest: Effort normal and breath sounds normal. No respiratory distress . She has no wheezes. She has no rales. Abdominal: Soft. Bowel sounds are normal. She exhibits no distension. There is t enderness. There is CVA tenderness (BILATERAL). There is no rebound and no guard ing. DIFFUSE ABD TENDERNESS (PT REPORTS THIS TO BE CHRONIC). Musculoskeletal: She exhibits no edema. Neurological: She is alert and oriented to person, place, and time. BILATERAL CVA TENDERNESS. BILATERAL GROIN TENDERNESS. Skin: Skin is warm and dry. No rash noted. She is not diaphoretic. Psychiatric: She has a normal mood and affect. Her behavior is normal. Nursing note and vitals reviewed. DIAGNOSTICS LAB: Labs this ED Encounter CBC WITH DIFFERENTIAL - Abnormal Result Value RBC 4.00 (*) MCV 106.5 (*) RDW-STDEV 48.9 (*) PLATELETS 133 (*) WBC 7.3 HEMOGLOBIN 13.6 HEMATOCRIT 42.6 MCH 34.0 MCHC 31.9 RDW 12.5 MPV 10.7 NEUTROPHILS 52 LYMPHOCYTES 40 MONOCYTES 5 EOSINOPHILS 3 BASOPHILS 1 IMMATURE GRANULOCYTES 0 NEUTROPHIL ABSOLUTE 3.79 LYMPHOCYTE ABSOLUTE 2.90 MONOCYTE ABSOLUTE 0.37 EOSINOPHIL ABSOLUTE 0.18 BASOPHILS ABSOLUTE 0.05 IMMATURE GRANULOCYTES ABSOLUTE 0.02 COMPREHENSIVE METABOLIC PANEL - Abnormal ALBUMIN 3.9 (*) SODIUM 140 POTASSIUM 5.0 CHLORIDE 103 CO2 24 CALCIUM 9.5 BUN 14 CREATININE 0.67 GLUCOSE 95 TOTAL PROTEIN 6.6 BILIRUBIN TOTAL 0.4 ALKALINE PHOSPHATASE 81 AST 17 ALT 11 GFR >60 GFR, >60 ANION GAP 13 URINALYSIS WITH REFLEX CULTURE - Abnormal CLARITY UA Slightly Cloudy (*) LEUKOCYTE ESTERASE UA 1+ (*) WBC UA 26-50 (*) RBC UA 3-5 (*) BACTERIA UA 2+ (*) COLOR UA Yellow SPECIFIC GRAVITY UA 1.024 PH UA 6.0 NITRITE UA Negative PROTEIN UA Negative GLUCOSE UA Negative KETONES UA Negative UROBILINOGEN UA <2.0 BILIRUBIN UA Negative BLOOD UA Negative EPITHELIAL CELLS, URINE 0-5 COMMENT, URINE Mucous: few Narrative: Based on results, a urine culture has been reflexed. URINE CULTURE RADIOLOGY: CT URINARY CALCULI WO CONTRAST Preliminary Result IMPRESSION: Moderate constipation. No evidence for bowel obstruction or bowel wall thickening. Tiny nonobstructing left renal calculus. There is no hydronephrosis. Please note the lack of IV contrast limits evaluation of the renal parenchyma for pyelonephritis. Other incidental findings as described. DICTATED BY: Dennis Quiroz on Tuesday12/26/2016 11:47PM CDT EKG: PROCEDURES Procedures MEDICAL DECISION MAKING AND PLAN OF CARE [facility] 2357: DISCUSSED FINDINGS AND PLAN FOR DISCHARGE. WILL PLACE PT ON ABX FOR PYELON EPHRITIS AND ADVISED THAT THE PT SEEK FOLLOW UP WITH HER PCP WITHIN 2-3 DAYS TO ENSURE IMPROVEMENT IN SYMPTOMS. SHE VERBALIZES HER UNDERSTANDING AND AGREES WITH PLAN. SHE IS STABLE AT TIME OF DISCHARGE. ED Course Medications Administered During the ED Stay from 12/26/20162120 to 12/27/2016 0 001 Date/Time Order Dose Route Action 12/26/20162237 fentaNYL PF (SUBLIMAZE) 50 mcg/mL injection 50 mcg 50 mcg IV G iven 12/26/20162214 sodium chloride 0.9% bolus solution 1,000 mL 1,000 mL IV New B ag . New Prescriptions for this Encounter CEFDINIR (OMNICEF) 300 MG CAPSULE Take 1 Capsule (300 mg) by mouth every 12 hours for 10 days. ONDANSETRON (ZOFRAN ODT) 4 MG TABLET, RAPID DISSOLVE Place 1 Tablet (4 mg) u nder tongue every 8 hours as needed for Nausea/Emesis. LAST VS BP: (!) 172/86 (12/26/162127), Heart Rate: 77 bpm (12/26/162127), Resp: 16 (2127), Temp: 97.5 F (36.4 C) (12/26/162127), Temp src: Oral (2127), SpO2: 96 % (12/26/162127) CLINICAL IMPRESSION Final diagnoses: [N12] Pyelonephritis (Primary) DISPOSITION, EDUCATION AND MEDICATION RECONCILIATION Medications reconciled. See after visit summary for patient education on discha rged patients. ATTESTATION STATEMENTS By signing my name below, I, ENOC BAH, attest that this document has been prepared under the direction and in the presence of DR. DEEPALI CANELA MD. Electronically signed: Abraham BURT. 12/27/2016 12:01 AM The scribe's documentation has been prepared under my direction and personally r eviewed by me in its entirety. I confirm that the note above accurately reflects all work, treatment, procedures, and medical decision making performed by me. Deepali Canela MD documented in this encounter Plan of Treatment Not on filedocumented as of this encounter Procedures Comments Procedure Name Priority Date/Time Associated Diag nosis CT URINARY CALCULI WO Stat 12/26/2016 CONTRAST 11:26 PM CDT CBC WITH DIFFERENTIAL Stat 12/26/2016 10:47 PM CDT COMPREHENSIVE METABOLIC Stat 12/26/2016 PANEL 10:47 PM CDT URINALYSIS WITH REFLEX Stat 12/26/2016 CULTURE 10:30 PM CDT URINE CULTURE Routine 12/26/2016 10:30 PM CDT documented in this encounter Results * CT URINARY CALCULI WO CONTRAST (12/26/2016 11:26 PM CDT) Specimen Impressions Performed At Impression: INTERFACE SYSTEM 1. Punctate nonobstructive left intrare nal calculus. No obstructive uropathy. 2. Constipation. Focal dilation of smal l bowel at the anastomotic site. No acute abnormality CT abdomen a nd pelvis. Narrative Performed At CT abdomen and pelvis without contrast. [facility] Comparison 09/15/2010 History: Flank Pain Renal: Punctate nonobstructive left int rarenal calculus. No obstructive uropathy bilaterally. Segme nts of both ureters demonstrate a normal course and caliber. Visualized lung bases scarring noted bi laterally.. Unenhanced liver, spleen, pancreas and bilateral supra re nals show no significant abnormality. Gallbladder status postcho lecystectomy.. No free fluid in visualized in abdomen. Moderate to sign ificant colonic stool noted. There is focal dilation at the anastomo tic site within small bowel in left hemiabdomen. No evidence of obstru ction at the anastomotic site. A stent is present in the left common a nd external iliac wing. The port enters through the left common fem oral vein up to partially visualized IVC. An IVC stent is seen in place. CT pelvis: Urinary bladder demonstrate no signific ant abnormality.. No free fluid in pelvis. Age-appropriate degenerati ve changes visualized osseous structures.. Status post hysterectomy. Procedure Note [facility], [facility] Incoming Radiology Results - 12/27/2016 7:[address] abdomen and pelvis without contrast. Comparison 09/15/2010 History: Flank Pain Renal: Punctate nonobstructive left intrarenal calculus. No obstructive uropathy bilaterally. Segments of both ureters demonstrate a normal course and caliber. Visualized lung bases scarring noted bilaterally.. Unenhanced liver, spleen, pancreas and bilateral supra renals show no significant abnormality. Gallbladder status postcholecystectomy.. No free fluid in visualized in abdomen. Moderate to significant colonic stool noted. There is focal dilation at the anastomotic site within small bowel in left hemiabdomen. No evidence of obstruction at the anastomotic site. A stent is present in the left common and external iliac wing. The port enters through the left common femoral vein up to partially visualized IVC. An IVC stent is seen in place. CT pelvis: Urinary bladder demonstrate no significant abnormality.. No free fluid in pelvis. Age-appropriate degenerative changes visualized osseous structures.. Status post hysterectomy. IMPRESSION Impression: 1. Punctate nonobstructive left intraren al calculus. No obstructive uropathy. 2. Constipation. Focal dilation of small bowel at the anastomotic site. No acute abnormality CT abdomen and pelvis. Performing Organization Address City/State/Zipcode Ph one Number INTERFACE SYSTEM INTERFACE SYSTEM Refer to clinic/hospital department * COMPREHENSIVE METABOLIC PANEL (12/26/2016 10:47 PM CDT) SODIUM 140 136 - 145 mmol/L [facility] POTASSIUM 5.0 3.5 - 5.1 mmol/L [facility] CHLORIDE 103 98 - 107 mmol/L [facility] CO2 24 22 - 29 mmol/L [facility] CALCIUM 9.5 8.6 - 10.0 mg/dL [facility] [place] BUN 14 6 - 20 mg/dL [facility] [place] CREATININE 0.67 0.51 - 0.95 mg/dL [facility] [place] GLUCOSE 95 74 - 105 mg/dL [facility] [place] TOTAL PROTEIN 6.6 6.4 - 8.3 g/dL [facility] [place] ALBUMIN 3.9 (L) 4.0 - 4.9 g/dL [facility] [place] BILIRUBIN TOTAL 0.4 <=1.2 mg/dL [facility] [place] ALKALINE 81 35 - 104 U/L [facility] PHOSPHATASE [facility] [place] AST 17 0 - 32 U/L [facility] Comment: LABORATORY Hemolysis present. Result may SERVICES - be falsely elevated. [place] ALT 11 0 - 33 U/L [facility] [...] GFR result. GFR, >60 >=60 mL/min/1.73 sq [facility] LABORATORY SERVICES - [place] ANION GAP 13 4 - 13 mmol/L [facility] [place] Specimen Blood Performing Organization Address City/State/Zipcode Ph one Number [facility] LABORATORY SERVICES CLIA # [id number] [place] [address] - [place] [address] [facility] [address] [facility] CLIA # [id number] [place] [phone] - [place] [address] [facility] [address] * CBC WITH DIFFERENTIAL (12/26/2016 10:47 PM CDT) [facility] WBC 7.3 4.0 - 11.0 K/uL [facility] [place] RBC 4.00 (L) 4.20 - 5.40 M/uL [facility] [place] HEMOGLOBIN 13.6 12.5 - 16.0 g/dL [facility] [place] HEMATOCRIT 42.6 37.0 - 47.0 % [facility] [place] MCV 106.5 (H) 78.0 - 100.0 fL [facility] [place] MCH 34.0 27.0 - 34.0 pg [facility] [place] MCHC 31.9 31.0 - 37.0 g/dL [facility] [place] RDW 12.5 12.0 - 15.0 % [facility] [place] RDW-STDEV 48.9 (H) 37.1 - 48.7 fL [employer] [facility] SERVICES - [place] PLATELETS 133 (L) 150 - 450 K/uL [facility] [place] MPV 10.7 9.3 - 12.4 fL [facility] [place] NEUTROPHILS 52 31 - 76 % [facility] [place] LYMPHOCYTES 40 24 - 44 % [facility] [place] MONOCYTES 5 2 - 11 % [facility] [place] EOSINOPHILS 3 0 - 6 % [facility] [place] BASOPHILS 1 0 - 2 % [facility] [place] IMMATURE 0 0 - 2 % [facility] GRANULOCYTES [facility] [place] NEUTROPHIL 3.79 1.80 - 7.70 K/uL [facility] ABSOLUTE LABORATORY SERVICES - [place] LYMPHOCYTE 2.90 1.00 - 4.80 K/uL [facility] ABSOLUTE [facility]ORY [facility] - [place] MONOCYTE 0.37 0.10 - 1.30 K/uL [facility] ABSOLUTE [facility] [place] EOSINOPHIL 0.18 0.00 - 0.70 K/uL [facility] ABSOLUTE [facility] - [place] BASOPHILS 0.05 0.00 - 0.20 K/uL [facility] ABSOLUTE LAB[facility]ATORY SERVICES - [place] IMMATURE 0.02 0.00 - 0.10 K/uL [facility] GRANULOCYTES LABORATORY ABSOLUTE SERVICES - [place] Specimen Blood Performing Organization Address [facility] one [facility] LABORATORY SERVICES CLIA # [id number] [place] [address] - [place] 100 [facility] LABORATORY SERVICES CLIA # [id number] [place] [address] - [address] * URINE CULTURE (12/26/2016 10:30 PM CDT) Pathologist [facility] CULTURE Polymicrobial growth [facility] consistent with normal LABORATORY urethral ginny and/or SERVICES - colonizing bacteria [place] Specimen Urine - Urine specimen obtained by clean catch procedure (specimen) Performing Organization Address [facility] one [facility]ly [facility] LABORATORY SERVICES CLIA # [id number] [place] [address] - [place] 100 [facility] LABORATORY SERVICES CLIA # [id number] [place] [address] - [place] 100 [facility] * URINALYSIS WITH REFLEX CULTURE (12/26/2016 10:30 PM CDT) COLOR UA Yellow Pale to dark yellow [facility]ATORY SERVICES - [place] CLARITY UA Slightly Cloudy (A) Clear [facility] LAB[facility]ATORY SERVICES - [place] SPECIFIC 1.024 1.003 - 1.035 [facility] GRAVITY [facility]A [facility] - [place] PH UA 6.0 5.0 - 8.0 [facility] LAB[facility]ATORY SERVICES - [place] LEUKOCYTE 1+ (A) Negative [facility] ESTERASE [facility] - [place] NITRITE UA Negative Negative [facility] - [place] PROTEIN UA Negative Negative [facility] - [place] GLUCOSE UA Negative Negative [facility] - [place] KETONES UA Negative Negative [facility] [place] UROBILINOGEN UA <2.0 <2.0 mg/dL [facility] - [place] BILIRUBIN UA Negative Negative [facility] [place] BLOOD UA Negative Negative [facility] [place] WBC UA 26-50 (A) 0 - 2 /hpf [facility] - [place] RBC UA 3-5 (A) 0 - 2 /hpf [facility] - [place] BACTERIA UA 2+ (A) Negative /hpf [facility] SERVICES - [place] EPITHELIAL 0-5 0 - 5 /hpf [facility] CELLS, URINE LABORATORY SERVICES - [place] COMMENT, URINE Mucous: few [facility] LAB[facility]ATORY SERVICES - [place] Specimen Urine - Urine specimen obtained by clean catch procedure (specimen) Narrative Performed At Based on results, a urine culture has been reflexed. [employer] LABORATORY SERVICES - [place] Performing Organization Address City/State/Zipcode Ph one Number [facility] LABORATORY SERVICES CLIA # [id number] [place] [address] - [place] 100 [facility] LABORATORY SERVICES CLIA # [id number] [place] [address] - [place] 100 [facility] documented in this encounter Visit Diagnoses Diagnosis Pyelonephritis - Primary Pyelonephritis, unspecified documented in this encounter Administered Medications Action Date Dose Rate Site Medication Order MAR Action 12/27/2016 12:06 AM CDT 50 mcg fentaNYL PF (SUBLIMAZE) 50 mcg/mL Given injection 50 mcg 50 mcg, IV, EVERY 1 HOUR PRN, 3 doses, Starting 12/26/16 at 2204, Until 12/27/16 at 0230, Pain, Routine 50 mcg Given 12/26/2016 10:38 PM CDT 12/26/2016 10:15 PM CDT 1,000 mL 2000 mL/hr sodium chloride 0.9% bolus solution New Bag 1,000 mL 1,000 mL, IV, ONE TIME ONLY, 1 dose, Alberto n 12/26/16 at 2215, at 2,000 mL/hr, Administer over 30 Minutes, Routine documented in this encounter
--- OUTSIDE RECORDS SUMMARY | 2019-09-01 14:02 | XMS REPORT | Encounter Summary ---
Author Author [facility], [place], [place], [place], [place] Areas Organization [facility], [place], [place], [place], [place] Areas Address Unknown Phone Unavailable Care Team Providers Care E Commerce Merchandising Coordinator Name Role Phone Rayna Gao MD PCP Encounter Details Care Team Description Date Type Department Rayna Gao MD [address] [place], [place] [id number] 06/15/2017 Abstract [facility] Family Medicine [address] [facility] [address] [place] [phone] Social History Date Tobacco Use Types [...] for t paola patient 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
--- OUTSIDE RECORDS SUMMARY | 2019-09-01 14:02 | XMS REPORT | Encounter Summary ---
Author Author [facility], [place], [place], [place], [place] Areas Organization [facility], [place], [place], [place], [place] Areas Address Unknown Phone Unavailable Care Team Providers Care President And Chief Commercial Officer Name Role Phone Rayna Gao MD PCP Encounter Details Care Team Description Date Type Department Rayna Gao MD [address] [place], [place] [address] 06/22/2017 Abstract [facility] Family Medicine 50[address] [facility] [address] [place] [phone] Social History Date Tobacco Use Types [...] for t paola patient 06/07/2017 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
--- OUTSIDE RECORDS SUMMARY | 2019-09-01 14:02 | XMS REPORT | Encounter Summary ---
Author Author [facility], [place], [place], [place], [facility] Organization [facility], [place], [place], [place], [place] Areas Address Unknown Phone Unavailable Care Team Providers Care Administrative Personal Assistant Name Role Phone Rayna Gao MD PCP Reason for Visit * Reason Comments Cough Chest Congestion Encounter Details Care Team Description Date Type Department Rayna Gao MD [address] [place] [phone] Cough; Chest Congestion 06/15/2017 Telephone [facility] Family Medicine [address] [place] [address] [address] [place] [phone] Social History Date Tobacco Use Types [...] encounter Miscellaneous Notes * Telephone Encounter - aNncy Arguello CMA - 06/16/2017 10:54 AM IMPLEMENTATION SPECIALIST PAYROLL Rayna Gao MD Danner, Meranda, CMA Caller: Unspecified (Yesterday, 3:52 PM) zpak as directed Tessalon pearles 100 mg TID x 7 EMENTATION SPECIALIST PAYROLL * Telephone Encounter - Nancy Arguello CMA - 06/15/2017 3:52 PM IMPLEMENTATION SPECIALIST PAYROLL [facility] called stating pt has a cough with green mucus and lung crackling an d would like to know if she can maybe get some mucinex and tessalon pearls to he lp please advise EMENTATION SPECIALIST PAYROLL documented in this encounter Plan of Treatment Not on filedocumented as of this encounter Visit Diagnoses Not on filedocumented in this encounter Additional Health Concerns Assessment Noted Time A Depression follow-up plan has been documented for t he patient 06/07/2017 12:05 PM IMPLEMENTATION SPECIALIST PAYROLL documented as of this encounter
--- OUTSIDE RECORDS SUMMARY | 2019-09-01 14:02 | XMS REPORT | Encounter Summary ---
Author Author [facility], [place], [place], [place], [place] Areas Organization [facility], [place], [place], [place], [place] Areas Address Unknown Phone Unavailable Care Team Providers Care Aerospace Assembler Name Role Phone Rayna Gao MD PCP Reason for Visit * Reason Comments Referral Encounter Details Care Team Description Date Type Department Rayna Gao MD [address], [place] [phone] Referral 06/14/2017 Telephone [facility] Family Medicine [address] [place] [address] [place] [phone] Social History Date Tobacco Use Types [...] Encounter - Rosemary Jovel CMA - 06/14/2017 1:56 PM CARTOGRAPHIC DRAFTER Sent everything...Rosemary Jovel CMA, 06/14/2017 1:56 PM OGRAPHIC DRAFTER * Telephone Encounter - Rosemary Jovel CMA - 06/14/2017 1:49 PM CARTOGRAPHIC DRAFTER [phone] OGRAPHIC DRAFTER * Telephone Encounter - Doris Quiroz - 06/14/2017 11:43 AM CARTOGRAPHIC DRAFTER The patient is wanting pain referral sent to [facility] in [place], [place]. They will schedule her within two weeks of receiving referral. The phone number is [phone] she did not have fax # OGRAPHIC DRAFTER documented in this encounter Plan of Treatment Not on filedocumented as of this encounter Visit Diagnoses Not on filedocumented in this encounter Additional Health Concerns Assessment Noted Time A Depression follow-up plan has been documented for t he patient 06/07/2017 12:05 PM CARTOGRAPHIC DRAFTER documented as of this encounter
--- OUTSIDE RECORDS SUMMARY | 2019-09-01 14:02 | XMS REPORT | Encounter Summary ---
Author Author [facility], [place], [place], [place], [facility] Organization [facility], [place], [place], [place], [place] Address Unknown Phone Unavailable Care Team Providers Care Financial Reporting Analyst Name Role Phone Rayna Gao MD PCP Reason for Visit * Reason Comments Information medication Encounter Details Care Team Description Date Type Department Rayna Gao MD [address] [place] [phone] Information (medication) 07/01/2017 Telephone [facility] Family Medicine [address] [place] [address] [place] [phone] Social History Date Tobacco Use Types [...] encounter Miscellaneous Notes * Telephone Encounter - Gay Canales LPN - 07/01/2017 5:24 PM CDT Tried returning Sophia's call, after speaking with Riya, she will need to follo w up with Dr. Gao as noted in the chart on or around 07/05/17 to further discus s the anxiety. No refills will be sent in at this time. * Telephone Encounter - Rayna Escalera LPN - 07/01/2017 2:38 PM CDT Patient called as she is wanting a refill of vistaril that was given in the ER a nd she has only been seen once by Dr. Gao and I let her know she was out of e office for a week and would have to ask the CARRIAGE FEEDER Riya and see if she would refi ll it and we would call her back and let her know and she stated that she unders tood.Rayna Escalera LPN, 07/01/2017 2:39 PM documented in this encounter Plan of Treatment Not on filedocumented as of this encounter Visit Diagnoses Not on filedocumented in this encounter Additional Health Concerns Assessment Noted Time A Depression follow-up plan has been documented for t paola patient 06/07/2017 12:05 PM FOREST RANGER documented as of this encounter
--- OUTSIDE RECORDS SUMMARY | 2019-09-01 14:02 | XMS REPORT | Encounter Summary ---
Author Author [facility], [place], [place], [place], [facility] Organization [facility], [place], [place], [place], [place] Address Unknown Phone Unavailable Care Team Providers Care Concrete Mixing Truck Driver Name Role Phone Rayna Gao MD PCP Reason for Visit * Reason Comments Pain Management Depression Suicidal * Auth/Cert Referred By Contact Referred To Contact Status Reason Specialty Diagnoses / Procedures [facility] Emergency Department [address] [facility] [place] [address] Emergency Medicine Encounter Details Care Team Description Date Type Department Mia Goodman, DO [address] [facility] [place] [address] Alex Rothman MD [facility] [address] [place] [address] Anxiety state (Primary Dx) 06/07/[address] [facility] in Emergency Department [address] [facility] [place] [address] Social History Date Tobacco Use [...] Signs Reading Time Taken Comments Vital Sign 141/80 06/07/2017 3:01 PM COLLAR POINTER Blood Pressure 88 06/07/2017 3:01 PM COLLAR POINTER Pulse 36.7 C (98.1 F) 06/07/2017 3:01 PM COLLAR POINTER Temperature 22 06/07/2017 3:01 PM COLLAR POINTER Respiratory Rate 92% 06/07/2017 3:01 PM COLLAR POINTER Oxygen Saturation - - Inhaled Oxygen Concentration - - Weight - - Height - - Body Mass Index documented in this encounter Discharge Instructions * Instructions* Mia Goodman, - 06/07/2017 You were seen today for feelings of anxiety secondary to medication changes. You were given Zofran here in the ER. You have been given a prescription for Vistaril. Please take medications as pre scribed. Please follow up with your primary care physician. Please return to the ER for any changes in your condition or other concerns. * Attachments The following attachments cannot be sent through Care Everywhere.* Anxiety Disorders: General Info ([place]) documented in this encounter Medications at Time of Discharge Start Date End Date Medication Sig Dispensed Refills levothyroxine 75 mcg Take 75 mcg 0 tablet by mouth daily jacquard twine polisher operator. DULoxetine (CYMBALTA) 60 Take 60 mg by [...] mouth 2 times daily. ALBUTEROL INHALATION 0 08/03/2017 lisinopril (PRINIVIL) 20 Take 20 mg by 0 mg tablet mouth daily. 06/07/2017 08/03/2017 hydrOXYzine pamoate Take 1 30 Capsule 1 (VISTARIL) 50 mg capsule Capsule (50 mg) by mouth 3 times daily as needed for Anxiety. 10/03/2017 tiZANidine (ZANAFLEX) 4 Take 4 mg [...] as of this encounter Progress Notes * Ratna Arnold RN - 06/07/2017 2:43 PM COLLAR POINTER Was asked to evaluate Sophia for suicidality. She denies that she is suicidal, s ays she has a lot to live for , has a son who has an inoperable brain tumor and helps with him and has a brother in law living with her who has had two strokes and has physically been aggressive with his so is living with her.She says she feels an obligation to this man as he helped she and her during a ve ry rough time. Her a year ago this month and this has been an emoti onal factor in her life but the most recent issue is that her doctor that gives her her pain pills has told her she will be decreasing them weekly. This has Sha vianey in a panic and she was hoping the ER could help. She does have an appointmen t with a new pain management doctor in a month but was concerned she couldn't ge t through this and was hoping we could give her some more medication. She says s he is not on any medication for anxiety and Dr Goodman says she will give her a script. Sophia has been told she will be able to get into counseling at her [facility] sooner than she can get into any one here in [place]. Did offer her the option of admission to but could not give her the guarantee th at she would get her pain medication as she wants. She has elected to go home. A gain she denies suicidality/ AR POINTER documented in this encounter ED Notes * Angeles Brown RN - 06/07/2017 12:51 PM COLLAR POINTER Pt emphatically denies suicidal ideation. States she came to get help with her pain so she would not get suicidal. AR POINTER * Idania Young RN - 06/07/2017 12:31 PM COLLAR POINTER Bed: ED 26 Expected date: Expected time: Means of arrival: Comments: zBH AR POINTER * Dipti Valle RN - 06/07/2017 12:25 PM COLLAR POINTER Pt also states she has been referred to pain management and psychiatry but "it c ould take months" "what am I supposed to do in the mean time" AR POINTER * Dipti Valle RN - 06/07/2017 12:23 PM COLLAR POINTER Pt ambulatory to triage, pt reports she has been cut down on her MS Contin, stat es suicidal thoughts driving her car and having an accident. However pt states " I am not suicidal I have a lot of responsibility" Pt states "I am scared and I a m overwhelmed" AR POINTER * Mia Goodman DO - 06/07/2017 12:08 PM COLLAR POINTER HISTORY OF PRESENT ILLNESS Sophia Hawkins, a 51 y.o. female presents to the ED with a Chief Complaint of P ain Management; Depression; and Suicidal Subjective PT IS A 51 YO FEMALE PRESENTING TO ED C/O STRESS, DEPRESSION, AND ANXIETY. 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 SHE IS STRESSED A S SHE IS AWAITING APPOINTMENTS FOR PAIN MANAGEMENT AND PSYCHIATRIST THAT ARE OVE R 1 MONTH AWAY. SHE DENIES ANY SUICIDAL IDEATION AT THIS TIME. SHE DENIES HAVING MEDICATIONS AT HOME FOR HER ANXIETY. History provided by: The patient and medical records Arrived by: Private vehicle Arrived from: Home REVIEW OF SYSTEMS Review of Systems Constitutional: Negative for chills and fever. HENT: Negative. Respiratory: Negative. Cardiovascular: Negative. Gastrointestinal: Negative. Genitourinary: Negative. Musculoskeletal: Positive for arthralgias and myalgias. Negative for gait proble m. Skin: Negative for wound. Neurological: Negative for syncope, weakness, light-headedness and headaches. Psychiatric/Behavioral: Positive for agitation and dysphoric mood. Negative for self-injury and suicidal ideas. The patient is nervous/anxious. All other systems reviewed and are [...] tumor removal; pr ercp w/sphincterotomy/papillotomy (N/A, 08/30/2014); and pr ercp,rmv f.b./change stent (N/A, 08/30/2014). FAMILY: Patient's [...] [sumatriptan succinate]; Inapsine [droperidol]; Reglan [metoclopramid e]; Minal-30; and Toradol [ketorolac] HOME MEDICATIONS Discharge Medication List as of 06/07/2017 3:03 PM START taking these medications Details hydrOXYzine pamoate (VISTARIL) 50 mg capsule Take 1 Capsule (50 mg) by mouth 3 t imes daily as needed for Anxiety., Disp-30 Capsule, R-1 CONTINUE these medications which have NOT CHANGED Details levothyroxine 75 mcg tablet Take 75 mcg by mouth daily jacquard twine polisher operator. lisinopril (PRINIVIL) 20 mg tablet Take 20 mg by mouth daily. simvastatin (ZOCOR) 20 mg tablet Take 20 mg by mouth late in the day. tiotropium (SPIRIVA) 18 mcg capsule Take 18 mcg by inhalation daily. cholecalciferol, Vitamin D3, 5,000 unit Capsule Take 5,000 Units by mouth 2 time s daily. rivaroxaban (XARELTO) 20 mg Tablet Take 20 mg by mouth daily. tiZANidine (ZANAFLEX) 4 mg Tablet Take 4 mg by mouth every 6 hours as needed for Spasm. DULoxetine (CYMBALTA) 60 mg Capsule, Delayed Release(E.C.) Take 60 mg by mouth 2 times daily . timolol (TIMOPTIC) 0.5 % solution Administer 1 Drop in left eye 2 times daily. ondansetron (ZOFRAN ODT) 4 mg Tablet, Rapid Dissolve Place 1 Tablet (4 mg) under tongue every 8 hours as needed for Nausea/Emesis., Disp-10 Tablet, R-0 diphenhydrAMINE (BENADRYL) 25 mg Oral tablet Take [...] by mouth 2 times daily. ALBUTEROL INHALATION olopatadine (PATANOL) 0.1 % OP solution Administer 1 Drop in both eyes 1 time da brenna as needed. Daily Prn allergies morphine SR (MS CONTIN) 30 mg Oral tablet Take 1 Tab by mouth 2 times daily . Objective PHYSICAL EXAM INITIAL VS BP: (!) 141/80 (06/07/17 1501), Heart Rate: (not recorded), Resp: 22 (06/07/17 1 501), Temp: 98.1 F (36.7 C) (06/07/17 1501), Temp src: Oral (06/07/17 1501), SpO2: 92 % (06/07/17 1501), Height: (not recorded), Weight: (not recorded), BMI (Calculated): (not recorded) No LMP recorded. Patient has had a hysterectomy. Physical Exam Constitutional: She is oriented to person, place, and time. She appears well-dev eloped and well-nourished. No distress. HENT: Head: Normocephalic and atraumatic. Mouth/Throat: Oropharynx is clear and moist and mucous membranes are normal. Eyes: Conjunctivae are normal. Neck: Normal range of motion. Neck supple. Cardiovascular: Normal rate, regular rhythm and normal heart sounds. No murmur heard. Pulmonary/Chest: Effort normal and breath sounds normal. No respiratory distress . She has no decreased breath sounds. She has no wheezes. She has no rhonchi. Sh e has no rales. Musculoskeletal: Normal range of motion. Neurological: She is alert and oriented to person, place, and time. Skin: Skin is warm and dry. Psychiatric: Her mood appears anxious. Her speech is rapid and/or pressured. She expresses no homicidal and no suicidal ideation. She expresses no suicidal plan s and no homicidal plans. TEARFUL. DENIES SI/HI. Nursing note and vitals reviewed. DIAGNOSTICS LAB: No data to display RADIOLOGY: No orders to display EKG: PROCEDURES Procedures MEDICAL DECISION MAKING AND PLAN OF CARE ED Course 135Cr- KAREL FOSTER, HAS SPOKEN WITH PT. SHE DOES NOT FEEL PT IS A HARM TO HERSELF OR OTHERS. ASKS TO PRESCRIBE ANTI-ANXIETY MEDICATION FOR THE NEXT FEW DAYS. PT IS INSTRUCTED TO [facility]CT [facility] [place] [place] FOR [facility]SELING WHILE SHE IS WAITING ON PSYCHIATRIST REFERRAL. MDM I have reviewed previous: notes I have reviewed nursing notes related to past medical history, social history, a nd review of systems and agree, unless otherwise noted. Medications Administered During the ED Stay from 06/07/2017 1208 to 06/07/2017 2 030 Date/Time Order Dose Route Action 06/07/2017 1504 ondansetron (ZOFRAN ODT) tablet 8 mg 8 mg Oral Given Discharge Medication List as of 06/07/2017 3:03 PM START taking these medications Details hydrOXYzine pamoate (VISTARIL) 50 mg capsule Take 1 Capsule (50 mg) by mouth 3 t imes daily as needed for Anxiety., Disp-30 Capsule, R-1 CONTINUE these medications which have NOT CHANGED Details levothyroxine 75 mcg tablet Take 75 mcg by mouth daily jacquard twine polisher operator. lisinopril (PRINIVIL) 20 mg tablet Take 20 mg by mouth daily. simvastatin (ZOCOR) 20 mg tablet Take 20 mg by mouth late in the day. tiotropium (SPIRIVA) 18 mcg capsule Take 18 mcg by inhalation daily. cholecalciferol, Vitamin D3, 5,000 unit Capsule Take 5,000 Units by mouth 2 time s daily. rivaroxaban (XARELTO) 20 mg Tablet Take 20 mg by mouth daily. tiZANidine (ZANAFLEX) 4 mg Tablet Take 4 mg by mouth every 6 hours as needed for Spasm. DULoxetine (CYMBALTA) 60 mg Capsule, Delayed Release(E.C.) Take 60 mg by mouth 2 times daily . timolol (TIMOPTIC) 0.5 % solution Administer 1 Drop in left eye 2 times daily. ondansetron (ZOFRAN ODT) 4 mg Tablet, Rapid Dissolve Place 1 Tablet (4 mg) under tongue every 8 hours as needed for Nausea/Emesis., Disp-10 Tablet, R-0 diphenhydrAMINE (BENADRYL) 25 mg Oral tablet Take [...] by mouth 2 times daily. ALBUTEROL INHALATION olopatadine (PATANOL) 0.1 % OP solution Administer 1 Drop in both eyes 1 time da brenna as needed. Daily Prn allergies morphine SR (MS CONTIN) 30 mg Oral tablet Take 1 Tab by mouth 2 times daily . LAST VS BP: (!) 141/80 (06/07/17 1501), Heart Rate: (not recorded), Resp: 22 (06/07/17 1 501), Temp: 98.1 F (36.7 C) (06/07/17 1501), Temp src: Oral (06/07/17 1501), SpO2: 92 % (06/07/17 1501) CLINICAL IMPRESSION Final diagnoses: [F41.1] Anxiety state (Primary) DISPOSITION, EDUCATION AND MEDICATION RECONCILIATION Medications reconciled. See after visit summary for patient education on discha rged patients. ED Disposition ED Disposition Condition User Date/Time Comment Discharge Stable Mia Goodman DO Jun 07, 2017 2:27 PM ATTESTATION STATEMENTS By signing my name below, IMelissa, attest that this documentation has been pre pared under the direction and in the presence of MIA GOODMAN DO. Electronically signed: Abraham Friend. ATTESTATIONS The scribe's documentation has been prepared under my direction and personally r eviewed by me in its entirety. I confirm that the note above accurately reflects all work, treatment, procedures, and medical decision making performed by me. Dipika Goodman DO AR POINTER documented in this encounter Plan of Treatment Not on filedocumented as of this encounter Visit Diagnoses Diagnosis Anxiety state - Primary Anxiety state, unspecified documented in this encounter Administered Medications Action Date Dose Rate Site Medication Order MAR Action 06/07/2017 3:04 PM COLLAR POINTER 8 mg ondansetron (ZOFRAN ODT) tablet 8 mg Given 8 mg, Oral, ONE TIME ONLY, 1 dose, [facility] 06/07/17 at 1445, Routine documented in this encounter Additional Health Concerns Assessment Noted Time A Depression follow-up plan has been documented for t he patient 06/07/2017 12:05 PM COLLAR POINTER documented as of this encounter
--- OUTSIDE RECORDS SUMMARY | 2019-09-01 14:02 | XMS REPORT | Encounter Summary ---
Author Author [facility], [place], [place], [place], [place] Areas Organization [facility], [place], [place], [place], [place] Areas Address Unknown Phone Unavailable Care Team Providers Care Convenience Store Clerk Name Role Phone Rayna Gao MD PCP Reason for Visit * Reason Comments Medication Refill Encounter Details Care Team Description Date Type Department Rayna Gao MD [address], [place] [phone] 07/05/2017 Refill [facility] Family Medicine [address] [place] [address] [address] [place] [phone] Social History Date Tobacco Use Types Packs/Day [...] for t paola patient 06/07/2017 12:05 PM YARDER ENGINEER documented as of this encounter
--- OUTSIDE RECORDS SUMMARY | 2019-09-01 14:02 | XMS REPORT | Encounter Summary ---
Author Author [facility], [place], [place], [place], [place] Areas Organization [facility], [place], [place], [place], [place] Areas Address Unknown Phone Unavailable Care Team Providers Care Accountant Controller Name Role Phone Rayna Gao MD PCP Reason for Visit * Reason Comments verbal orders Encounter Details Care Team Description Date Type Department Rayna Gao MD [address], [place] [phone] verbal orders 07/25/2017 Telephone [facility] Family Medicine [address] [place] [address] [place] [phone] Social History Date Tobacco Use Types [...] Telephone Encounter - Rosemary Jovel CMA - 07/25/2017 2:48 PM CDT CALLED BRANDIE BACK TO LET HER KNOW SHE WILL FOLLOW ...Rosemary Jovel CMA, 07/26/19 2:48 PM * Telephone Encounter - Rosemary Jovel CMA - 07/25/2017 1:00 PM CDT Rayna Gao MD Goade, Kristie, CMA Caller: Unspecified (Today, 10:47 AM) Ok to follow HH Why does she refuse taking her meds? * Telephone Encounter - Rosemary Jovel CMA - 07/25/2017 10:58 AM CDT But after we were talking, Brandie said that pt is REFUSING to take ANY of her me dications EXCEPT for her pain medications. So, do you want to follow her for HH ?..Rosemary Jovel CMA, 07/25/2017 11:08 AM * Telephone Encounter - Rosemary Jovel CMA - 07/25/2017 10:57 AM CDT Called Brandie and gave verbal orders..Rosemary Jovel CMA, 07/25/2017 10:57 AM * Telephone Encounter - Christelle Brooke - 07/25/2017 10:47 AM CDT Please call Brandie at [facility] back. They need verbal orders to r e-certify patient documented in this encounter Plan of Treatment Not on filedocumented as of this encounter Visit Diagnoses Not on filedocumented in this encounter Additional Health Concerns Assessment Noted Time A Depression follow-up plan has been documented for t paola patient 06/07/2017 12:05 PM UNDERPRESSER HAND documented as of this encounter
--- OUTSIDE RECORDS SUMMARY | 2019-09-01 14:02 | XMS REPORT | Encounter Summary ---
Author Author [facility], [place], [place], [place], [place] Areas Organization [facility], [place], [place], [place], [place] Areas Address Unknown Phone Unavailable Care Team Providers Care Shoe Sprayer Name Role Phone Rayna Gao MD PCP Encounter Details Care Team Description Date Type Department Rayna Gao MD [address] [place], [place] [id number] 07/05/2017 Abstract [facility] Family Medicine [address] [facility] [address] [place] [phone] Social History Date Tobacco Use Types [...] for t paola patient 06/07/2017 12:05 PM APPLICATIONS SYSTEM ANALYST documented as of this encounter
--- OUTSIDE RECORDS SUMMARY | 2019-09-01 14:02 | XMS REPORT | Encounter Summary ---
Author Author [facility], [place], [place], [place], [place] Areas Organization [facility], [place], [place], [place], [place] Areas Address Unknown Phone Unavailable Care Team Providers Care Scroll Assembler Name Role Phone Rayna Gao MD PCP Encounter Details Care Team Description Date Type Department Rayna Gao MD [address] [place], [place] [address] 07/29/2017 Abstract [facility] Family Medicine [address] [facility] [address] [place] [phone] Social History Date Tobacco Use Types Packs/Day [...] for t paola patient 06/07/2017 12:05 PM MARKET INTELLIGENCE CONSULTANT documented as of this encounter
--- OUTSIDE RECORDS SUMMARY | 2019-09-01 14:03 | XMS REPORT | Encounter Summary ---
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 Name Role Phone PCP Unavailable Reason for Visit * Auth/Cert Referred By Contact Referred To Contact Status Reason Specialty Diagnoses / Procedures [facility] [address] [facility] [place] [address] Closed Diagnoses C ommon bile duct dilation [576.8] P rocedures CHOLANGIOPANCREATO GRAPHY RETROGRADE ENDOSCOPIC Encounter Details Care Team Description Date Type Department Edilberto Urbina MD [address], [place] [id number] CHOLANGIOPANCREATOGRAPHY RETROGRADE ENDO SCOPIC 08/30/2014 Surgery [facility] in Endoscopy [address] [facility] [place] [address] Social History Date Tobacco Use [...] Signs Reading Time Taken Comments Vital Sign 148/87 08/30/2014 3:05 PM CDT Blood Pressure 80 08/30/2014 3:05 PM CDT Pulse 36.9 C (98.5 F) 08/30/2014 3:05 PM CDT Temperature 14 08/30/2014 3:05 PM CDT Respiratory Rate 95% 08/30/2014 3:05 PM CDT Oxygen Saturation - - Inhaled Oxygen Concentration 75.9 kg (167 lb 6.4 oz) 08/30/2014 11:49 AM CDT Weight 171.5 cm (5' 7.5") 08/30/2014 11:49 AM CDT Height 25.83 08/30/2014 11:49 AM CDT Body Mass Index documented in this encounter Discharge Instructions * Instructions* Ary Llanes, RN - 08/30/2014 Discharge Instruction Record ENDOSCOPY LAB PROCEDURE Teaching Content o Medicare Important Message letter signed (date/time): I. Your diet will be: Slowly advance to regular diet II. Dietary Restrictions: Following a biopsy or Polypectomy DO NOT EAT any coar se or scratchy foods ie popcorn, seeds or nuts for 48 hours. III. The following activities are encouraged (or any other special instructions) : 1. Follow these instructions for smoking cessation: A. Stop all tobacc o use, for help quitting call [phone] or 1-942-RASOIHT (Core Indicators) 2. You may experience lightheadedness, dizziness and sleepiness following the pr ocedure, so rest the remainder of the day. 3. Someone should stay with you until you are fully alert. 4. Do not make any important decisions or sign legal papers for 24 hours. 5. Do not drink alcoholic beverages for 24 hours. 6. Do not drive a motor vehicle or operate machinery or power tools for 24 hours . 7. Someone must drive you home. 8. Following a polypectomy, avoid vigorous activity for one (1) week. 9. Continue home medications as instructed per you physician. IV. Follow-up Care: Bring all medications in original container and medication list with you to your follow up doctors appointments: V. Call your doctor for any of the followin. Fever greater than 101 2. Rectal bleeding or black bowel movements 3. Vomiting blood, coughing up blood 4. Any stomach, chest or abdominal pain that you did not experience before the p rocedure. documented in this encounter Medications at Time of Discharge Start Date End Date Medication Sig Dispensed Refills diphenhydrAMINE Take 25 mg by 0 (BENADRYL) [...] 2 times daily. ALBUTEROL INHALATION 0 12/26/2016 oxyCODONE (OXYCONTIN) 20 Take 20 mg by 0 mg Controlled Release 12 mouth 2 times hour crush resistant daily. tablet 12/26/2016 oxyCODONE-acetaminophen Take 1 Tab by 0 (PERCOCET) 7.5-500 mg mouth every 4 Tablet hours as needed for Pain, Moderate. 12/26/2016 gabapentin (NEURONTIN) Take 800 mg 0 800 mg tablet by mouth 3 times daily. 12/26/2016 methocarbamol (ROBAXIN) Take 500 mg 0 500 mg tablet by mouth 3 times daily. 12/26/2016 simvastatin (ZOCOR) 10 mg Take 10 mg by 0 tablet mouth Daily LATE. 12/26/2016 rivaroxaban (XARELTO) 20 Take 20 mg by 0 mg Tablet mouth daily. 12/26/2016 bumetanide (BUMEX) 2 mg Take 2 mg by 0 Oral tablet mouth daily. 1-2 tabs prn diuretic as needed 12/26/2016 insulin glargine (LANTUS) Inject 40 0 100 unit/mL subCUT Soln Units by subcutaneous injection daily at bedtime. 12/26/2016 citalopram (CELEXA) 20 mg Take 20 mg by 0 Oral tablet mouth daily. 12/26/2016 lisinopril (PRINIVIL) 10 Take 40 mg by 0 mg Oral tablet mouth daily . 12/26/2016 insulin aspart (NOVOLOG Inject 12 0 JR PENFILL) 100 unit/mL Units by subCUT Crtg subcutaneous injection 3 times daily with meals. 10/03/2017 olopatadine (PATANOL) 0.1 Administer 1 0 % OP solution Drop in both eyes 1 time daily as needed. Daily Prn allergies 12/26/2016 potassium chloride Take 10 mEq 0 (KLOR-CON,K-TAB) 10 mEq by mouth Oral TbSR every 12 hours as needed. If taking bumex 12/26/2016 QUEtiapine (SEROQUEL) 50 Take 50 mg by 0 mg Oral tablet mouth daily at bedtime. 12/26/2016 Cholecalciferol, Vitamin Take 5,000 0 D3, 5,000 unit Oral Cap Units by mouth every 7 days. 12/26/2016 fenofibrate Take 145 mg 0 nanocrystallized (TRICOR) by mouth 145 mg Oral tablet daily at bedtime. 12/26/2016 trimethoprim-sulfamethoxa Take 1 Tab by 0 zole (BACTRIM DS) 800-160 mouth 2 times mg Oral tablet daily. 12/26/2016 predniSONE (DELTASONE) 10 Take 10 mg by 0 mg Oral tablet mouth daily. 12/26/2016 levalbuterol (XOPENEX) Take 1.25 mg 0 1.25 mg/0.5 mL Inhalation by inhalation Nebu one time only. 12/26/2016 ergocalciferol (VITAMIN Take 1 Cap by 0 D) 50,000 unit Oral mouth every 7 capsule days. 12/26/2016 amLODIPine (NORVASC) 5 mg Take 1 Tab by 0 Oral tablet mouth daily. 12/26/2016 ondansetron (ZOFRAN) 8 mg Take 63 Tabs 0 Oral Tab by mouth every 8 hours as needed . 12/26/2016 clopidogrel (PLAVIX) 75 0 mg Oral Tab documented as of this encounter Progress Notes * Edilberto Urbina MD - 08/30/2014 2:08 PM CDT Colonoscopy procedure. report dictated. 08/30/2014 Job number [id number] Post operative findings 1. Previous biliary sphincterotomy. 2. Removal biliary stent. 3. Dilated CBD and intrahepatic ducts. 4. Papillary stenosis resolved EBL: None Plan Resume op orders. documented in this encounter H&P Notes * Edilberto Urbina MD - 08/30/2014 1:10 PM CDT SOPHIA HAWKINS 1965 [id number] 08/30/2014 No primary provider on file. Endoscopy History and Physical This is a 49 y.o. female patient scheduled for ERCP for f/u Papillary stenosis.. Past Medical History Diagnosis Date Thromboembolism Lupus Asthma HTN (hypertension) CRI (chronic renal insufficiency) Pulmonary embolism june 2010 COPD (chronic obstructive pulmonary disease) Bowel obstruction 5 bowel obstructions Anxiety Depression Hypothyroidism Diabetes mellitus Lupus BiPAP (biphasic positive airway pressure) dependence Chronic pain Bowel obstruction Hyperlipidemia Chest pain clots Obstructive sleep apnea (adult) (pediatric) Past Surgical History Procedure Laterality Date Hx appendectomy Hx hysterectomy Hx cholecystectomy Hx knee surgery Pr insert tunneled cv cath with port 10/08/2010 CATHETER VENOUS ACCESS PLACEMENT performed by APOLLO PINEDA at [facility] freeing bowel adhesion,enterolysis states had "21 surgeries for bowel obstructions" Hx gallbladder surgery Hx knee arthroscopy Left Hx tumor removal abdominal Allergies Allergen Reactions Adhesive Tape-Silicones Rash Aspirin Unknown Codeine Unknown Compazine [Prochlorperazine Edisylate] Unknown Imitrex [Sumatriptan Succinate] Unknown Inapsine [Droperidol] Unknown Reglan [Metoclopramide] Anaphylaxis Minal-30 Unknown Toradol [Ketorolac] Unknown Prescriptions prior to admission Medication Sig Dispense Refill oxyCODONE (OXYCONTIN) 20 mg Controlled Release 12 hour crush resistant table t Take 20 mg by mouth 2 times daily. oxyCODONE-acetaminophen (PERCOCET) 7.5-500 mg Tablet Take 1 Tab by mouth roxana ry 4 hours as needed for Pain, Moderate. gabapentin (NEURONTIN) 800 mg tablet Take 800 mg by mouth 3 times daily. methocarbamol (ROBAXIN) 500 mg tablet Take 500 mg by mouth 3 times daily. simvastatin (ZOCOR) 10 mg tablet Take 10 mg by mouth Daily LATE. rivaroxaban (XARELTO) 20 mg Tablet Take 20 mg by mouth daily. lisinopril (PRINIVIL) 10 mg Oral tablet Take 40 mg by mouth daily . potassium chloride (KLOR-CON,K-TAB) 10 mEq Oral TbSR Take 10 mEq by mouth ev prudence 12 hours as needed. If taking bumex Cholecalciferol, Vitamin D3, 5,000 unit Oral Cap Take 5,000 Units by mouth e very 7 days. docusate sodium (COLACE) 100 mg Oral capsule Take 1 Cap by mouth 2 times agustín ly. ondansetron (ZOFRAN) 8 mg Oral Tab Take 63 Tabs by mouth every 8 hours as ne eded . ALBUTEROL INHALATION levothyroxine (SYNTHROID) 100 mcg Oral tablet 75 mcg . bumetanide (BUMEX) 2 mg Oral tablet Take 2 mg by mouth daily. 1-2 tabs prn d iuretic as needed diphenhydrAMINE (BENADRYL) 25 mg Oral tablet Take 25 mg by mouth every 6 filiberto rs as needed. Allergies insulin glargine (LANTUS) 100 unit/mL subCUT Soln Inject 40 Units by subcuta neous injection daily at bedtime. citalopram (CELEXA) 20 mg Oral tablet Take 20 mg by mouth daily. morphine (MS IR) 15 mg Oral tablet Take 15 mg by mouth every 4 hours as need ed. breakthru pain insulin aspart (NOVOLOG JR PENFILL) 100 unit/mL subCUT Crtg Inject 12 Units by subcutaneous injection 3 times daily with meals. omeprazole (PRILOSEC) 20 mg Oral CpDR Take 20 mg by mouth daily. olopatadine (PATANOL) 0.1 % OP solution Administer 1 Drop in both eyes 1 deny e daily as needed. Daily Prn allergies QUEtiapine (SEROQUEL) 50 mg Oral tablet Take 50 mg by mouth daily at bedtime . fenofibrate nanocrystallized (TRICOR) 145 mg Oral tablet Take 145 mg by mout h daily at bedtime. trimethoprim-sulfamethoxazole (BACTRIM DS) 800-160 mg Oral tablet Take 1 Tab by mouth 2 times daily. predniSONE (DELTASONE) 10 mg Oral tablet Take 10 mg by mouth daily. levalbuterol (XOPENEX) 1.25 mg/0.5 mL Inhalation Nebu Take 1.25 mg by inhala tion one time only. morphine SR (MS CONTIN) 30 mg Oral tablet Take 1 Tab by mouth 2 times daily . ergocalciferol (VITAMIN D) 50,000 unit Oral capsule Take 1 Cap by mouth ever y 7 days. amLODIPine (NORVASC) 5 mg Oral tablet Take 1 Tab by mouth daily. clopidogrel (PLAVIX) 75 mg Oral Tab Personal history. Denies use of alcohol or tobacco usage. Family History Problem Relation Age of Onset Heart Disease Father Cancer Mother Healthy Sister Healthy Brother ROS: Unremarkable Physical Exam: Airway Assessment Short/fat neck: No Short chin No Protruding upper teeth No Neck full ROM Yes Mouth opens>2 finers Yes Lungs: clear to auscultation bilaterally, normal respiratory effort Heart: regular rate and rhythm, S1, S2 normal, no murmur, click, rub or gallop Abdomen: Soft, non-tender. Bowel sounds normal. No masses, no organomegaly. Neuro: Alert, awake and Oriented X3 Assessment: F/U Papillary stenosis and removal of stent Patient Active Problem List Diagnosis Code Acute bronchitis 466.0 Chronic airway obstruction, not elsewhere classified 496 CO2 narcosis 786.09 Plan: Will proceed with the above mentioned procedure as scheduled. Edilberto Urbina MD documented in this encounter OR Notes * Operative Report - Edilberto Urbina MD - 08/30/2014 6:38 PM CDT [facility] [address] NAME: SOPHIA HAWKINS CSN: [id number] : 1965 ADMISSION DATE: 08/30/2014 OPERATIVE REPORT DATE: 08/30/2014 SURGEON: Alexa Urbina MD PROCEDURE: Endoscopic retrograde cholangiopancreatography. PREOPERATIVE DIAGNOSIS: Followup endoscopic retrograde cholangiopancreatography to evaluate papillary stenosis changes, removal of previously placed biliary st ent. ANESTHESIA: As per Anesthesia service. POSTOPERATIVE DIAGNOSES: 1. Previously noted papillary stenosis changes, this is resolved. 2. Previously placed biliary stent was removed. 3. Biliary sphincterotomy changes noted. 4. Dilated common bile duct and intrahepatic ducts. 5. Pancreatic duct not cannulated. INDICATION: This is a 49-year-old white female, who presents for followup ERCP. A flexible ERCP is being performed to evaluate possible removal of previously placed biliary stent and papillary stenosis changes. An informed consent was ob tained. DESCRIPTION OF PROCEDURE: The patient was placed in supine position. Following giving anesthesia, a flexible Pentax side-viewing duodenal scope was introduced through the oropharynx and esophagus under direct vision, which revealed normal esophageal mucosa and peristalsis. The scope was advanced through gastroesopha geal junction into the stomach and into second portion of duodenum, which reveal ed normal gastric and duodenal mucosa. The previously placed biliary stent was noted per major papilla which was successfully removed using a polypectomy snare . Following which, previous biliary sphincterotomy changes were noted. Using a cannulatome, the major papilla was cannulated and a selective cholangiogram was obtained, which revealed dilated common bile duct and intraoperative. The comm on bile duct measured around 12 mm in its maximum diameter. The previously note d papillary changes have improved significantly. Good drainage of bile and dye was noted per major papilla. A balloon catheter of size 9-12 mm was advanced to the common hepatic duct and keeping the balloon inflated down to the major brijesh lla which resulted in minimal amount of bile and dye. Following which an occlus sree cholangiogram was obtained, which revealed no filling defects. The scope wa s withdrawn. The patient tolerated the procedure well and there were no complic ations. PLAN: Supine and n.p.o. until the patient is awake, alert. Resume her medicati ons and diet. Plan is to obtain endoscopic ultrasound if her abdominal pain per sists with Dr. Matthieu Bailey. Follow with me in the clinic in 2 weeks. Alexa Urbina MD SA/esperanza VOICE JOB ID: [id number] DOCUMENT ID: [id number] cc: Alexa Urbina MD * Anesthesia Handoff - Meet Busby CRNA - 08/30/2014 2:25 PM CDT Post-Anesthetic transfer of care report elements to appropriate post-anesthesia recovery environment completed in accordance with procedure. Vital Signs: BP: 146/87 mmHg (08/30/2014 2:20 PM) Pulse: 87 (08/30/2014 2:20 PM) Temp: 36.7 C (08/30/2014 2:20 PM) Resp: 12 (08/30/2014 2:20 PM) SpO2: 100 % (08/30/2014 2:20 PM) 2:25 PM Meet Busby CRNA documented in this encounter Plan of Treatment Not on filedocumented as of this encounter Procedures Comments Procedure Name Priority Date/Time Associated Diag nosis XR FLUORO LESS THAN 1 Routine 08/30/2014 HOUR 2:12 PM CDT STENT REMOVAL 08/30/2014 Common bile duct di lation 1:42 PM CDT CHOLANGIOPANCREATOGRAPHY 08/30/2014 Common bile duct dilation RETROGRADE ENDOSCOPIC 1:42 PM CDT POC GLUCOSE Routine 08/30/2014 11:48 AM CDT documented in this encounter Results * XR FLUORO LESS THAN 1 HOUR (08/30/2014 2:12 PM CDT) Specimen Narrative Performed At Order information only. Exam was auto -finalized. * POC GLUCOSE (08/30/2014 11:48 AM CDT) POC GLUCOSE 157 (H) 70 - 105 mg/dL [employer] [facility] [place] Specimen Blood, capillary Performing Organization Address City/State/[facility] Ph one Number [facility] CLIA # [id number] [place] [address] - [place] 100 [facility] LABORATORY SERVICES CLIA # [id number] [place] [address] - [place] 100 [facility] documented in this encounter Visit Diagnoses Diagnosis Common bile duct dilation Other specified disorders of biliary tr act documented in this encounter Administered Medications Action Date Dose Rate Site Medication Order MAR Action 08/30/2014 3:20 PM CDT 500 Units heparin, porcine lock flush (pf) 100 Given unit/mL injection 500 Units 500 Units (5 mL), IV, ONE TIME ONLY, 1 dose, Tue08/30/14 at 1430, Routine 08/30/2014 2:54 PM CDT 0.5 mg hydromorPHONE (DILAUDID) 1 mg/mL syringe Given 0.5 mg 0.5 mg, IV, POST-PROCEDURE Q 5 MINUTES PRN, 4 doses, Starting Tue08/30/14 at 1218, Until Tue08/30/14 at 1730, Pain, Moderate, For pain scale 4-6, Routine 0.5 mg Given 08/30/2014 2:38 PM CDT 08/30/2014 2:28 PM CDT 1 mg HYDROMORPHONE 1 MG/ML INJECTION SYRINGE Given 1 dose, Starting Tue08/30/14 at 1425, Until Tue08/30/14 at 1428, Ryan EDULL: cabinet override, 08/30/2014 2:18 PM CDT 100 mg Penis indomethacin (INDOCIN) rectal Given suppository INTRA-PROCEDURE PRN, Starting Tue08/30/14 at 1418, Until Tue08/30/14 at 1453, Routine, Intra-op 08/30/2014 2:15 PM CDT 12.5 mL Operativ e Site iohexol (OMNIPAQUE) 300 mg iodine/mL Given injection INTRA-PROCEDURE PRN, Starting Tue08/30/14 at 1415, Until Tue08/30/14 at 1453, Intra-op 08/30/2014 12:29 PM CDT 5 mg MORPHINE 4 MG/ML INTRAVENOUS CARTRIDGE Given 1 dose, Starting Tue08/30/14 at 1223, Until Tue08/30/14 at 1229, Olimpiahmash OMNICELL: carli override, 08/30/2014 12:29 PM CDT 4 mg ondansetron (ZOFRAN) 4 mg/2 mL injection Given 4 mg 4 mg, IV, PRE-PROCEDURE ONCE, 1 dose, Starting Tue08/30/14 at 1218, Until Tue08/30/14 at 1229, Routine 08/30/2014 2:33 PM CDT 4 mg ondansetron (ZOFRAN) 4 mg/2 mL injection Given 4 mg 4 mg, IV, POST-PROCEDURE ONCE PRN, 1 dose, Starting Tue08/30/14 at 1218, Until Tue08/30/14 at 1433, Nausea/Emesis, Routine, PACU 08/30/2014 3:20 PM CDT 10 mL SODIUM CHLORIDE 0.9 % INJECTION SYRINGE Given 1 dose, Starting Tue08/30/14 at 1133, Until Tue08/30/14 at 1520, Mala OMNICELL: carli override, 08/30/2014 11:59 AM CDT 30 mL/hr 30 mL/hr sodium chloride 0.9% infusion New Bag IV, at 30 mL/hr, CONTINUOUS, Starting Tue08/30/14 at 1130, Until Tue08/30/14 at 1730, Routine, Pre-Procedure documented in this encounter
--- OUTSIDE RECORDS SUMMARY | 2019-09-01 14:03 | XMS REPORT | Encounter Summary ---
Author Author [facility], Jah Garcia, [place], [place], [place] Organization [facility], Jah Garcia, [place], [place], [place] Address Unknown Phone Unavailable Care Team Providers Care Dietary Aid Name Role Phone PCP Unavailable Reason for Visit * Reason Comments Depression * Auth/Cert Referred By Contact Referred To Contact Status Reason Specialty Diagnoses / Procedures [facility] Medical Surgical F [address] [place] [id number] Closed Encounter Details Care Team Description Date Type Department Emigdio Fisher, NO ADDRESS ON FILE Lisa Villa MD NO ADDRESS ON FILE [facility] Nicole, Physician Hospitalist, Collin Garland MD NO ADDRESS ON FILE Chidi Haro, [address] [place] [address] CO2 narcosis 09/03/2011 [facility] in - Encounter Medical Surgical F 09/05/[address] [place] [id number] Social History Date Tobacco Use Types Packs/Day [...] Signs Reading Time Taken Comments Vital Sign 154/79 09/05/2011 11:18 AM CDT Blood Pressure 90 09/05/2011 11:18 AM CDT Pulse 36.7 C (98.1 F) 09/05/2011 11:18 AM CDT Temperature 20 09/05/2011 11:18 AM CDT Respiratory Rate 93% 09/05/2011 11:18 AM CDT Oxygen Saturation - - Inhaled Oxygen Concentration 93 kg (205 lb 2 oz) 09/04/2011 12:50 AM CDT Weight 170.2 cm (5' 7") 09/03/2011 4:50 PM CDT Height 32.13 09/03/2011 4:50 PM CDT Body Mass Index documented in this encounter Discharge Summaries * Chidi Haro DO - 09/05/2011 9:16 AM CDT Physician Discharge Summary Patient: Sophia Hawkins / 46 y.o. / female : 1965 Admit date: 09/03/2011 Indication for Admission: narcosis. Admitting Diagnoses: No admission diagnoses for hospital encounter. Attending Physician: Chidi Haro DO Consults: none. Emergency Department Diagnoses: 1. Depression 2. Acute pain due to trauma 3. Altered mental status 4. Chronic pain syndrome Problem List: Patient Active Problem List Diagnoses Code Acute bronchitis 466.0 Chronic airway obstruction, not elsewhere classified 496 CO2 narcosis 786.09 Treatments: IV hydration, respiratory therapy: O2 and gen support. Significant Diagnostic Studies: labs: and radiology: . Hospital Course: she has awoken from narcosis and reports that this occurred due to taking meds as they had been prescribed, and that she had no intention of wei rming herself. She is anxious to go home today. Admission Condition: improved. Discharge date: 09/05/2011 Discharging Physician: Chidi Haro DO Discharge Exam: BP 107/54 | Pulse 83 | Temp(Src) 98.4 F (36.9 C) (Oral) | Resp 20 | Ht 5' 7" (1.702 m) | Wt 205 lb 2 oz (93.044 kg) | BMI 32.13 kg/m2 | SpO2 99% General: Alert, cooperative, no distress, appears stated age. Head: Normocephalic, without obvious abnormality, atraumatic. Eyes: Conjunctivae/corneas clear. PERRL, EOMs intact. Fundi benign. Ears: Normal TMs and external ear canals both ears. Nose: Nares normal. Septum midline. Mucosa normal. No drainage or sinus tenderne ss. Throat: Lips, mucosa, and tongue normal. Teeth and gums normal. Neck: Supple, symmetrical, trachea midline, no adenopathy, thyroid: no enlargmen t/tenderness/nodules, no carotid bruit and no JVD. Back: Symmetric, no curvature. ROM normal. No CVA tenderness. Lungs: Clear to auscultation bilaterally. Chest wall: She cont to have left sided rib pain from a fall, and relates pain is not well controlled. Heart: Regular rate and rhythm, S1, S2 normal, no murmur, click, rub or gallop. Abdomen: Soft, non-tender. Bowel sounds normal. No masses, No organomegaly. Extremities: Extremities normal, atraumatic, no cyanosis or edema. Pulses: 2+ and symmetric all extremities. Skin: Skin color, texture, turgor normal. No rashes or lesions. Lymph nodes: Cervical, supraclavicular, and axillary nodes normal. Neurologic: CNII-XII intact. Normal strength, sensation and reflexes throughout. Fully oriented. . Discharge Condition: improved to baseline. Discharge Diagnoses: narcosis Disposition: home. MEDICATIONS Prior to admission: Prescriptions prior to admission Medication Sig Dispense Refill LORazepam (ATIVAN) 1 mg Oral tablet Take 1 mg by mouth every 12 hours as nee ded. Anxiety bumetanide (BUMEX) 2 mg Oral tablet Take [...] tablet Take 20 mg by mouth daily. lisinopril (PRINIVIL) 10 mg Oral tablet Take 10 mg by mouth daily. morphine (MS IR) [...] e daily as needed. Daily Prn allergies potassium chloride (KLOR-CON,K-TAB) 10 mEq Oral TbSR Take 10 mEq by mouth ev prudence 12 hours as needed. If taking bumex QUEtiapine (SEROQUEL) 50 mg Oral tablet Take 50 mg by mouth daily at bedtime . Cholecalciferol, Vitamin D3, 5,000 unit Oral Cap Take 5,000 Units by mouth e very 7 days. levothyroxine (SYNTHROID) 75 mcg Oral tablet Take 75 mcg by mouth daily mike y morning. fenofibrate nanocrystallized (TRICOR) 145 mg Oral tablet Take 145 mg by mout h daily at bedtime. morphine SR (MS CONTIN) 30 mg Oral tablet Take 1 Tab by mouth 3 times daily. fondaparinux (ARIXTRA) 7.5 mg/0.6 mL subCUT Syrg Inject 7.5 mg by subcutaneo us injection daily at bedtime. cyclobenzaprine (FLEXERIL) 10 mg Oral tablet Take 1 Tab by mouth 3 times agustín ly as needed. Muscle spasms ondansetron (ZOFRAN) 8 mg Oral Tab Take 1 Tab by mouth every 8 hours as need ed. ALBUTEROL INHALATION clopidogrel (PLAVIX) 75 mg Oral Tab methocarbamol (ROBAXIN) 750 mg Oral tablet Take 1 Tab by mouth 3 times daily . 60 Tab 0 dexamethasone (DECADRON) 4 mg Oral tablet Take 1 Tab by mouth 3 times daily. 1 tid x 3 d-> 1bid x 3d-> 1 qd 20 Tab None trimethoprim-sulfamethoxazole (BACTRIM DS) 800-160 mg Oral tablet Take 1 Tab by mouth 2 times daily. predniSONE (DELTASONE) 10 mg Oral tablet Take 10 mg by mouth daily. HYDROcodone-acetaminophen (NORCO) 5-325 mg Oral tablet Take 1 Tab by mouth e very 4 hours as needed for Pain. 12 Tab None levalbuterol (XOPENEX) 1.25 mg/0.5 mL Inhalation Nebu Take 1.25 mg by inhala tion one time only. ergocalciferol (VITAMIN D) 50,000 unit Oral capsule Take 1 Cap by mouth ever y 7 days. amLODIPine (NORVASC) 5 mg Oral tablet Take 1 Tab by mouth daily. docusate sodium (COLACE) 100 mg Oral capsule Take 1 Cap by mouth 2 times agustín ly. promethazine (PHENERGAN) 25 mg Oral tablet Take by mouth every 6 hours as n eeded. 25 to 50 mg levothyroxine (SYNTHROID) 100 mcg Oral tablet escitalopram (LEXAPRO) 20 mg Oral tablet Discharge medications and new prescriptions: Current Discharge Medication List CONTINUE these medications which have NOT CHANGED Details LORazepam (ATIVAN) 1 mg Oral tablet Take 1 mg by mouth every 12 hours as needed. Anxiety bumetanide (BUMEX) 2 mg Oral tablet Take 2 mg by mouth daily. 1-2 tabs prn diure tic as needed diphenhydrAMINE (BENADRYL) 25 mg Oral tablet Take 25 mg by mouth every 6 hours a s needed. Allergies insulin glargine (LANTUS) 100 unit/mL subCUT Soln Inject 40 Units by subcutaneou s injection daily at bedtime. citalopram (CELEXA) 20 mg Oral tablet Take 20 mg by mouth daily. lisinopril (PRINIVIL) 10 mg Oral tablet Take 10 mg by mouth daily. morphine (MS IR) 15 mg Oral tablet Take 15 mg by mouth every 4 hours as needed. breakthru pain insulin aspart (NOVOLOG JR PENFILL) 100 unit/mL subCUT Crtg Inject 12 Units by s ubcutaneous injection 3 times daily with meals. omeprazole (PRILOSEC) 20 mg Oral CpDR Take 20 mg by mouth daily. olopatadine (PATANOL) 0.1 % OP solution Administer 1 Drop in both eyes 1 time da brenna as needed. Daily Prn allergies potassium chloride (KLOR-CON,K-TAB) 10 mEq Oral TbSR Take 10 mEq by mouth every 12 hours as needed. If taking bumex QUEtiapine (SEROQUEL) 50 mg Oral tablet Take 50 mg by mouth daily at bedtime. Cholecalciferol, Vitamin D3, 5,000 unit Oral Cap Take 5,000 Units by mouth every 7 days. !! 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 fenofibrate nanocrystallized (TRICOR) 145 mg Oral tablet Take 145 mg by mouth da brenna at bedtime. morphine SR (MS CONTIN) 30 mg Oral tablet Take 1 Tab by mouth 3 times daily. fondaparinux (ARIXTRA) 7.5 mg/0.6 mL subCUT Syrg Inject 7.5 mg by subcutaneous i njection daily at bedtime. cyclobenzaprine (FLEXERIL) 10 mg Oral tablet Take 1 Tab by mouth 3 times daily a s needed. Muscle spasms ondansetron (ZOFRAN) 8 mg Oral Tab Take 1 Tab by mouth every 8 hours as needed. ALBUTEROL INHALATION clopidogrel (PLAVIX) 75 mg Oral Tab methocarbamol (ROBAXIN) 750 mg Oral tablet Take 1 Tab by mouth 3 times daily. Qty: 60 Tab, Refills: 0 dexamethasone (DECADRON) 4 mg Oral tablet Take 1 Tab by mouth 3 times daily. 1 t id x 3 d-> 1bid x 3d-> 1 qd Qty: 20 Tab, Refills: None trimethoprim-sulfamethoxazole (BACTRIM DS) 800-160 mg Oral tablet Take 1 Tab by mouth 2 times daily. predniSONE (DELTASONE) 10 mg Oral tablet Take 10 mg by mouth daily. HYDROcodone-acetaminophen (NORCO) 5-325 mg Oral tablet Take 1 Tab by mouth every 4 hours as needed for Pain. Qty: 12 Tab, Refills: None levalbuterol (XOPENEX) 1.25 mg/0.5 mL Inhalation Nebu Take 1.25 mg by inhalation one time only. ergocalciferol (VITAMIN D) 50,000 unit Oral capsule Take 1 Cap by mouth every 7 days. amLODIPine (NORVASC) 5 mg Oral tablet Take 1 Tab by mouth daily. docusate sodium (COLACE) 100 mg Oral capsule Take 1 Cap by mouth 2 times daily. promethazine (PHENERGAN) 25 mg Oral tablet Take by mouth every 6 hours as neede d. 25 to 50 mg !! levothyroxine (SYNTHROID) 100 mcg Oral tablet escitalopram (LEXAPRO) 20 mg Oral tablet !! - Potential duplicate medications found. Please discuss with provider. Patient instructions: Activity: activity as tolerated. Diet: Diabetic Diet. Wound Care: None needed. Follow-up with No primary provider on file. PCP in one week.. Signed: Chidi Haro DO 09/05/2011, 9:16 AM documented in this encounter Discharge Instructions * Instructions* Shauna Steve, NANI - 09/05/2011 Patient instructions: Activity: activity as tolerated. Diet: Diabetic Diet. Wound Care: None needed. Follow-up with No primary provider on file. PCP in one week.. Hand written script given for Iron 325mg BID per Dr. Haro Pain Management, Chronic You have a painful condition that has required frequent use of narcotic-type nataly n medicine. We would like to see that you receive the best possible care for you r problem. To achieve this, you must have a personal physician who can supervise a treatment plan for you. You may locate a personal physician on your own or co ntact one of the doctors whose name has been given to you. If your physician determines that you need to visit the Emergency Department for pain control, that doctor should provide you with a PAIN CONTRACT. This a letter from your doctor which describes what pain medicine you may receive, how much and how often. You sign it agreeing to the terms of the treatment plan. Bring th is with each time you come to this facility. It will help the Emergency Physicia n provide the proper treatment for you with minimal delay. Please Note: In the future you may not be able to receive narcotic pain medicine from this facility without a pain contract or telephone approval from your pers onmi physician. ExitCare Patient Information 2006 [employer]. documented in this encounter Medications at Time [...] 2 times daily. ALBUTEROL INHALATION 0 12/26/2016 bumetanide (BUMEX) 2 mg Take 2 [...] as of this encounter Progress Notes * Shauna Steve RN - 09/05/2011 2:00 PM CDT Pt's discharge paperwork and script found in room after pt left. Called availabl e phone number but received no answer. * Shauna Steve RN - 09/05/2011 12:17 PM CDT Pt given discharge instructions, prescriptions, and educational materials. Pt ve rbalized understanding. Port access flushed and removed. Pt awaiting family, and wheelchair to be taken to private vehicle per PCS. * Tara Aquino RN - 09/05/2011 5:30 AM CDT lidoderm patch removed as ordered 12 h on, 12 h off * Collin Koch MD - 09/04/2011 1:59 PM CDT Admit Date: 09/03/2011 Hospital day: 1 Subjective: Patient has complaints of sever right sided rib pain, somnolent still but arous able.. Medication side effects: none. Current Facility-Administered Medications Medication Dose Route Frequency Provider Last Rate Last Dose lisinopril (PRINIVIL) tablet 10 mg 10 mg Oral Daily Vish Villa MD 10 mg at 09/04/11 0800 Cholecalciferol (Vitamin D3) tablet Tab 5,000 Units 5,000 Units Oral q 7 da y Vish Villa MD levothyroxine (SYNTHROID) tablet 75 mcg 75 mcg Oral Daily EARLY Law vero Villa MD 75 mcg at 09/04/11 0631 SODIUM CHLORIDE 0.9 % SYRINGE 3 mL at 09/04/11 0245 citalopram (CELEXA) tablet 20 mg 20 mg Oral Daily Vish Villa MD 20 mg at 09/04/11 0800 insulin glargine (LANTUS) 100 unit/mL injection 20 Units 20 Units subCUT Da brenna BEDTIME Collin Koch MD ondansetron (ZOFRAN) 4 mg/2 mL injection 4 mg 4 mg IV ONCE Emigdio Fisher, DO 4 mg at 09/03/11 1904 fentanyl (SUBLIMAZE) 50 mcg/mL injection 50 mcg 50 mcg IV q 1 hour PRN Stew Emigdio lacy, DO 25 mcg at 09/04/11 0240 clopidogrel (PLAVIX) tablet 75 mg 75 mg Oral Daily Vish Villa MD 75 mg at 09/04/11 0800 docusate sodium (COLACE) capsule 100 mg 100 mg Oral BID Vish Villa MD 100 mg at 09/04/11 0800 fenofibrate tablet 160 mg 160 mg Oral Daily Vish Villa MD 160 mg at 09/04/11 0800 DISCONTD: amLODIPine (NORVASC) tablet 5 mg 5 mg Oral Daily Vish Villa MD DISCONTD: fenofibrate nanocrystallized (TRICOR) tablet 145 mg 145 mg Oral D aily Vish Villa MD DISCONTD: levothyroxine (SYNTHROID) tablet 100 mcg 100 mcg Oral AC Daily Br eakfast Vish Villa MD DISCONTD: ergocalciferol (VITAMIN D2) capsule 50,000 Units 1 Cap Oral q 7 d ay Vish Villa MD Objective: Patient Vitals for the past 8 hrs: BP Temp Temp src Pulse Resp SpO2 09/04/11 1202 126/62 mmHg 99.4 F (37.4 C) Oral 88 22 97 % 09/04/11 0700 108/60 mmHg 97.9 F (36.6 C) Oral 91 22 94 % Intake/Output Summary (Last 24 hours) at 09/04/11 1400 Last data filed at 09/04/11 0417 Gross per 24 hour Intake 200 ml Output 400 ml Net -200 ml Results for orders placed during the hospital encounter of 09/03/11 (from the [facility] 24 hour(s)) COMPREHENSIVE METABOLIC PANEL Collection Time 09/03/11 6:11 PM Component Value Range SODIUM 127 (*) 136-145 (mmol/L) POTASSIUM 3.5 3.5-5.1 (mmol/L) CHLORIDE 90 (*) 98-111 (mmol/L) CO2 31 22-31 (mmol/L) CALCIUM 9.1 8.3-10.3 (mg/dL) BUN 16 7-21 (mg/dL) CREATININE 1.08 (*) 0.44-1.00 (mg/dL) GLUCOSE 184 (*) 70-105 (mg/dL) TOTAL PROTEIN 7.8 5.8-8.2 (g/dL) ALBUMIN 4.1 3.5-5.0 (g/dL) BILIRUBIN TOTAL 0.7 0.2-1.3 (mg/dL) ALKALINE PHOSPHATASE 107 38-126 (U/L) AST 66 (*) 15-46 (U/L) ALT 58 11-66 (U/L) GFR 54 (*) >=60 (mL/min/1.73 sq meter) GFR, 66 >=60 (mL/min/1.73 sq meter) Narrative: eGFR has not been validated for use in the elderly (> 70 years of age), women, patients with serious co-morbid conditions, or persons with extremes of body size or muscle mass and should also be interpreted with caution in patients with acute kidney failure, dialysis dependant patients, patients reporting exceptional dietary intake (e.g. vegetarian diet, high protein diets, creatine supplementation), and patients with severe liver disease. Based on National Kidney Disease Education Program ETHANOL LEVEL Collection Time 09/03/11 6:11 PM Component Value Range ETHANOL <5.00 ETHANOL % <0.01 <=0.01 (%w/v) SALICYLATE LEVEL Collection Time 09/03/11 6:11 PM Component Value Range SALICYLATE LEVEL <4.0 3.0-20.0 (mg/dL) ACETAMINOPHEN LEVEL Collection Time 09/03/11 6:11 PM Component Value Range ACETAMINOPHEN LEVEL 11 10-30 (ug/mL) MAGNESIUM LEVEL Collection Time 09/03/11 6:11 PM Component Value Range MAGNESIUM 1.8 1.6-2.4 (mg/dL) PHOSPHORUS Collection Time 09/03/11 6:11 PM Component Value Range PHOSPHORUS 3.5 2.5-4.5 (mg/dL) CBC WITH DIFFERENTIAL Collection Time 09/03/11 6:26 PM Component Value Range WBC 5.7 4.0-11.0 (K/uL) RBC 3.52 (*) 4.20-5.40 (M/uL) HEMOGLOBIN 9.4 (*) 12.5-16.0 (g/dL) HEMATOCRIT 30.4 (*) 37.0-47.0 (%) MCV 86.4 78.0-100.0 (fL) MCH 26.7 (*) 27.0-34.0 (pg) MCHC 30.9 (*) 31.0-37.0 (g/dL) RDW 16.1 (*) 12.0-15.0 (%) RDW-STDEV 49.5 (*) 37.1-48.7 (fL) PLATELETS 201 150-450 (K/uL) MPV 10.2 9.3-12.4 (fL) SPECIMEN HOLD, BLUE TOP Collection Time 09/03/11 6:26 PM Component Value Range EXTRA TUBE RECEIVED Blue SPECIMEN HOLD, RED TOP Collection Time 09/03/11 6:26 PM Component Value Range EXTRA TUBE RECEIVED Red MANUAL DIFFERENTIAL Collection Time 09/03/11 6:26 PM Component Value Range ADJUSTED WBC 5.7 4.0-11.0 (K/uL) SEGMENTED NEUTROPHILS 49 31-76 (%) BANDS RELATIVE 13 (*) 2-6 (%) LYMPHOCYTES RELATIVE 25 24-44 (%) MONOCYTES RELATIVE 4 2-11 (%) EOSINOPHILS RELATIVE 5 0-6 (%) BASOPHILS RELATIVE 2 0-2 (%) MYELOCYTES - REL (DIFF) 2 (*) <=0 (%) PLATELET EST. Adequate NEUTROPHILS ABSOLUTE COUNT 3.53 1.24-8.36 (K/uL) LYMPHOCYTES ABSOLUTE 1.43 1.00-4.80 (K/uL) MONOCYTES ABSOLUTE 0.23 0.10-1.30 (K/uL) EOSINOPHILS ABSOLUTE 0.29 0.00-0.70 (K/uL) BASOPHILS ABSOLUTE 0.11 0.00-0.20 (K/uL) MYELOCYTES - ABS (DIFF) 0.11 (*) <=0.00 (K/uL) ANISOCYTOSIS 1+ POLYCHROMASIA 1+ BASOPHILIC STIPPLING 1+ HYPOCHROMIA 1+ TOTAL CELLS COUNTED IN DIFF 100 WBC MORPHOLOGY Normal POC GLUCOSE Collection Time 09/03/11 6:44 PM Component Value Range POC GLUCOSE 168 (*) 65-99 (mg/dL) DRUG SCREEN, URINE Collection Time 5/18/12 8:57 PM Component Value Range ACETAMINOPHEN QUAL URINE Presumptive Positive (*) Negative, Test Not Included AMPHETAMINE QUAL, URINE Negative Negative METHAMPHETAMINE QUAL, URINE Negative Negative BARBITURATE QUAL, URINE Negative Negative BENZODIAZEPINE QUAL, URINE Negative Negative COCAINE QUAL URINE Negative Negative METHADONE QUAL, URINE Negative Negative OPIATE QUAL, URINE Presumptive Positive (*) Negative PCP QUAL, URINE Negative Negative CANNABINOIDS QUAL, URINE Presumptive Positive (*) Negative TRICYCLICS QUAL, URINE Presumptive Positive (*) Negative Narrative: Cut-off concentrations for each drug class are listed below: Acetaminophen 5 mcg/mL Amphetamines 1000 ng/mL Methamphetamines 1000 ng/mL Barbiturates 300 ng/mL Benzodiazepines 300 ng/mL Cocaine 300 ng/mL Methadone 300 ng/mL Opiates 300 ng/mL Phencyclidine 25 ng/mL Tetrahydrocannabinol 50 ng/mL Tricyclic Antidepressants 1000 ng/mL This test provides a preliminary result only. Clinical consideration and profes sional judgment must be applied to any drug of abuse test, particularly in evalu ating a preliminary positive result. The most common method of confirming preli minary positive results is Gas Chromatography/Mass Spectroscopy (GC/MS). HCG QUALITATIVE, URINE Collection Time 09/03/11 8:57 PM Component Value Range HCG QUAL URINE Negative Negative SPECIFIC GRAVITY UA 1.004 (*) 1.005-1.050 Narrative: Urine results may be falsely negative due to low specific gravity. URINALYSIS WITH REFLEX CULTURE Collection Time 09/03/11 8:57 PM Component Value Range COLOR UA Yellow CLARITY UA Clear SPECIFIC GRAVITY UA 1.004 (*) 1.005-1.050 PH UA 6.0 LEUKOCYTE ESTERASE UA Negative Negative NITRITE UA Negative Negative PROTEIN UA Negative Negative GLUCOSE UA Negative Negative KETONES UA Negative Negative UROBILINOGEN UA 4.0 (*) 0.2, 1.0 (mg/dL) BILIRUBIN UA Negative Negative BLOOD UA 2+ (*) Negative WBC UA None Seen None Seen, 0-2 (/hpf) RBC UA 0-2 None Seen, 0-2 (/hpf) BACTERIA UA Negative Negative EPITHELIAL CELLS, URINE 0-5 0-5 (/hpf) POC, BLOOD GASES Collection Time 09/04/11 12:26 AM Component Value Range PH BLOOD POC 7.25 (*) 7.38-7.46 PCO2 POC 86 (*) 32-46 (mm Hg) POC PO2 <15 (*) 74-108 (mm Hg) HCO3 (CALC) POC 38 (*) 21-29 (mmol/L) POC HEMOGLOBIN 11.2 (*) 12.5-15.5 (g/dL) BASE EXCESS POC 10 (*) -2-2 (mmol/L) POC O2 SAT <15 (*) 92-98 (%) TOTAL CO2 POC 40 (*) 22-31 (mmol/L) POC SODIUM 131 (*) 136-145 (meq/L) POC POTASSIUM 4.1 3.5-5.1 (meq/L) POC HEMATOCRIT 33.0 (*) 37.0-47.0 (%) POC IONIZED CALCIUM 1.25 1.12-1.30 (mg/dL) POC GLUCOSE 136 (*) 65-99 (mg/dL) PATIENT'S TEMPERATURE 97.8 PH TEMP CORRECT 7.26 (*) 7.38-7.46 PCO2 TEMP CORRECT 84 (*) 32-46 (mm Hg) PO2 TEMP CORRECT <15 (*) 74-108 (mm Hg) SPECIMEN SOURCE, GASES ART COMMENT, GASES POC Not Applicable Narrative: References ranges displayed is for Blood Gas Arterial URINALYSIS Collection Time 09/04/11 2:39 AM Component Value Range COLOR UA Yellow CLARITY UA Clear SPECIFIC GRAVITY UA 1.004 (*) 1.005-1.050 PH UA 6.0 LEUKOCYTE ESTERASE UA Negative Negative NITRITE UA Negative Negative PROTEIN UA Negative Negative GLUCOSE UA Negative Negative KETONES UA Negative Negative UROBILINOGEN UA 4.0 (*) <2.0 (mg/dL) BILIRUBIN UA Negative Negative BLOOD UA 2+ (*) Negative WBC UA 0-2 None Seen, 0-2 (/hpf) RBC UA 0-2 None Seen, 0-2 (/hpf) BACTERIA UA Negative Negative EPITHELIAL CELLS, URINE 0-5 0-5 (/hpf) POC GLUCOSE Collection Time 09/04/11 8:08 AM Component Value Range POC GLUCOSE 165 (*) 65-99 (mg/dL) General appearance: alert, in no distress, appears older than stated age, slowed mentation, somnolent Head: atraumatic, Normocephalic, without obvious abnormality Nose: Nares normal. Septum midline. Mucosa normal. No drainage or sinus tenderne ss. Neck: supple, symmetrical, trachea midline, no adenopathy, thyroid: not enlarged , symmetric, no tenderness/mass/nodules and no JVD Lungs: clear to auscultation bilaterally, normal respiratory effort Heart: normal rate, regular rhythm, normal S1, S2, no murmurs, rubs, clicks or g allops Abdomen: Soft, non-tender. Bowel sounds normal. No masses, no organomegaly. Chest : severe tenderness in the right sided chest wall. Extremities: extremities normal, atraumatic, no cyanosis or edema, intact distal pulses, moves all extremities equally, no edema, redness or tenderness in the c zulu[place] or thighs, normal strength, normal tone Assessment: Active Problems: CO2 narcosis Plan: # AMS due to drug overdose of narcotics, Benzos- Is doing well, still somnolent but arousable. Monitor resp status closely. # Hx of depression- since her in may 2011, continue on celexa. # COPD - no overt issues at present. # Smoker- Interested in quitting, will try the wellbutrin and nicotine patch. # DM2 - continue on low dose lantus, hold off on meal time insulin due to MS. # HTN -continue on lisinopril. # Chest pain on right chest wall secondary to rib fracture from a fall in intoxi cated state- will do lidoderm patch. * Gay Medrano RN - 09/04/2011 6:18 AM CDT Told patient she could leave AMA. Patient unable to find a ride. Patient states "If you get ahold of Dr. Villa and we can work my pain medication out, I'll sta y". documented in this encounter H&P Notes * Vish Villa MD - 09/03/2011 11:17 PM CDT 46 y/o white female with hx of depression, copd, dm2, tobacco, chronic narcotic use left AMA from hospital 2 days ago. She now presents somnolent, to the point of not being aroused by verbal or physical stimuli. She is sleeping, saturating in the high 90's. I suspect that this is all due to overuse of narcotics. An abg is being ordered. We will avoid narcan for now. She does have a sodium of 127. Pt is not talkative, non arousable but is known to have depression. She did lose her two months ago. She will be admitted to telemetry for further evalu ation. Past Medical History Diagnosis Date Thromboembolism Lupus Bowel obstruction Asthma HTN (hypertension) CRI (chronic renal insufficiency) Pulmonary embolism june 2010 COPD (chronic obstructive pulmonary disease) Past Surgical History Procedure Date Hx appendectomy Hx hysterectomy Hx cholecystectomy Hx knee surgery Pr insert tunneled cv cath with port 10/08/2010 CATHETER VENOUS ACCESS PLACEMENT performed by APOLLO PINEDA at [facility] History Social History Marital Status: Spouse Name: N/A Number of Children: N/A Years of Education: N/A Occupational History Not on file. Social History Main Topics Smoking status: Current Everyday Smoker -- 0.5 packs/day for 20 years Types: Cigarettes Smokeless tobacco: Not on file Alcohol Use: No Drug Use: No Sexually Active: Other Topics Concern Not on file Social History Narrative No narrative on file Family History Problem Relation Age of Onset Cancer Father BP 112/68 | Pulse 80 | Resp 16 | Ht 5' 7" (1.702 m) | Wt 211 lb (95.709 kg) | BM I 33.05 kg/m2 | SpO2 98% ROS nonverbal, somnolent PE Gen AAOx2, appears somnolent HEENT EOMI, PERRLA CV nsr, no m/r/g Neck no jvd, no adenopathy Abd soft, nt, nt Ext no c/c/e Musculoskeletal no restricted ROM Skin warm, dry Psych sedate on narcotics, cannot assess Neuro nonfocal But somnolent Results for orders placed during the hospital encounter of 09/03/11 (from the [facility] 24 hour(s)) COMPREHENSIVE METABOLIC PANEL Component Value Range SODIUM 127 (*) 136-145 (mmol/L) POTASSIUM 3.5 3.5-5.1 (mmol/L) CHLORIDE 90 (*) 98-111 (mmol/L) CO2 31 22-31 (mmol/L) CALCIUM 9.1 8.3-10.3 (mg/dL) BUN 16 7-21 (mg/dL) CREATININE 1.08 (*) 0.44-1.00 (mg/dL) GLUCOSE 184 (*) 70-105 (mg/dL) TOTAL PROTEIN 7.8 5.8-8.2 (g/dL) ALBUMIN 4.1 3.5-5.0 (g/dL) BILIRUBIN TOTAL 0.7 0.2-1.3 (mg/dL) ALKALINE PHOSPHATASE 107 38-126 (U/L) AST 66 (*) 15-46 (U/L) ALT 58 11-66 (U/L) GFR 54 (*) >=60 (mL/min/1.73 sq meter) GFR, 66 >=60 (mL/min/1.73 sq meter) ETHANOL LEVEL Component Value Range ETHANOL <5.00 ETHANOL % <0.01 <=0.01 (%w/v) SALICYLATE LEVEL Component Value Range SALICYLATE LEVEL <4.0 3.0-20.0 (mg/dL) ACETAMINOPHEN LEVEL Component Value Range ACETAMINOPHEN LEVEL 11 10-30 (ug/mL) MAGNESIUM LEVEL Component Value Range MAGNESIUM 1.8 1.6-2.4 (mg/dL) PHOSPHORUS Component Value Range PHOSPHORUS 3.5 2.5-4.5 (mg/dL) CBC WITH DIFFERENTIAL Component Value Range WBC 5.7 4.0-11.0 (K/uL) RBC 3.52 (*) 4.20-5.40 (M/uL) HEMOGLOBIN 9.4 (*) 12.5-16.0 (g/dL) HEMATOCRIT 30.4 (*) 37.0-47.0 (%) MCV 86.4 78.0-100.0 (fL) MCH 26.7 (*) 27.0-34.0 (pg) MCHC 30.9 (*) 31.0-37.0 (g/dL) RDW 16.1 (*) 12.0-15.0 (%) RDW-STDEV 49.5 (*) 37.1-48.7 (fL) PLATELETS 201 150-450 (K/uL) MPV 10.2 9.3-12.4 (fL) SPECIMEN HOLD, BLUE TOP Component Value Range EXTRA TUBE RECEIVED Blue SPECIMEN HOLD, RED TOP Component Value Range EXTRA TUBE RECEIVED Red MANUAL DIFFERENTIAL Component Value Range ADJUSTED WBC 5.7 4.0-11.0 (K/uL) SEGMENTED NEUTROPHILS 49 31-76 (%) BANDS RELATIVE 13 (*) 2-6 (%) LYMPHOCYTES RELATIVE 25 24-44 (%) MONOCYTES RELATIVE 4 2-11 (%) EOSINOPHILS RELATIVE 5 0-6 (%) BASOPHILS RELATIVE 2 0-2 (%) MYELOCYTES - REL (DIFF) 2 (*) <=0 (%) PLATELET EST. Adequate NEUTROPHILS ABSOLUTE COUNT 3.53 1.24-8.36 (K/uL) LYMPHOCYTES ABSOLUTE 1.43 1.00-4.80 (K/uL) MONOCYTES ABSOLUTE 0.23 0.10-1.30 (K/uL) EOSINOPHILS ABSOLUTE 0.29 0.00-0.70 (K/uL) BASOPHILS ABSOLUTE 0.11 0.00-0.20 (K/uL) MYELOCYTES - ABS (DIFF) 0.11 (*) <=0.00 (K/uL) ANISOCYTOSIS 1+ POLYCHROMASIA 1+ BASOPHILIC STIPPLING 1+ HYPOCHROMIA 1+ TOTAL CELLS COUNTED IN DIFF 100 WBC MORPHOLOGY Normal POC GLUCOSE Component Value Range POC GLUCOSE 168 (*) 65-99 (mg/dL) DRUG SCREEN, URINE Component Value Range ACETAMINOPHEN QUAL URINE Presumptive Positive (*) Negative, Test Not Included AMPHETAMINE QUAL, URINE Negative Negative METHAMPHETAMINE QUAL, URINE Negative Negative BARBITURATE QUAL, URINE Negative Negative BENZODIAZEPINE QUAL, URINE Negative Negative COCAINE QUAL URINE Negative Negative METHADONE QUAL, URINE Negative Negative OPIATE QUAL, URINE Presumptive Positive (*) Negative PCP QUAL, URINE Negative Negative CANNABINOIDS QUAL, URINE Presumptive Positive (*) Negative TRICYCLICS QUAL, URINE Presumptive Positive (*) Negative HCG QUALITATIVE, URINE Component Value Range HCG QUAL URINE Negative Negative SPECIFIC GRAVITY UA 1.004 (*) 1.005-1.050 URINALYSIS WITH REFLEX CULTURE Component Value Range COLOR UA Yellow CLARITY UA Clear SPECIFIC GRAVITY UA 1.004 (*) 1.005-1.050 PH UA 6.0 LEUKOCYTE ESTERASE UA Negative Negative NITRITE UA Negative Negative PROTEIN UA Negative Negative GLUCOSE UA Negative Negative KETONES UA Negative Negative UROBILINOGEN UA 4.0 (*) 0.2, 1.0 (mg/dL) BILIRUBIN UA Negative Negative BLOOD UA 2+ (*) Negative WBC UA None Seen None Seen, 0-2 (/hpf) RBC UA 0-2 None Seen, 0-2 (/hpf) BACTERIA UA Negative Negative EPITHELIAL CELLS, URINE 0-5 0-5 (/hpf) Imp 1. Narcotic abuse 2. Depression 3. Probable CO2 narcosis Plan 1. Telemetry monitoring 2. Continue celexa 3. Await results of abg and hold off using opiates 4. DVT/GI prophylaxis documented in this encounter Procedure Notes * Sgf Scanning, [facility] - 09/09/2011 8:19 AM CDT Associated Order(s): EKG 12-LEAD Electronically signed by Interface, [facility] Transcriptions Incoming at 2 8:19 AM CDT * Sgf Scanning, [facility] - 09/07/2011 12:13 PM CDT Associated Order(s): TELEMETRY REPORT Electronically signed by Interface, [facility] Transcriptions Incoming at 2 12:13 PM CDT documented in this encounter ED Notes * Brian Jimenez RN - 09/04/2011 12:22 AM CDT Telemetry #[id number] called to [place]. * Brian Jimenez RN - 09/04/2011 12:19 AM CDT Pt requests something for her pain. Dr. Villa notified. No new orders as we are hold narcotic medications at this time. * Brian Jimenez RN - 09/03/2011 11:55 PM CDT Resting in bed. Awaiting bed placement. VSS. Arouses to verbal stimuli. * Brian Jimenez RN - 09/03/2011 11:02 PM CDT Resting in bed. Denies chest pain. Awaiting admit bed. Updated on plan of care. * Brian Jimenez RN - 09/03/2011 9:56 PM CDT Resting in bed. VSS. Awaiting disposition. Eyes closed, respirations even and un labored. Able to rouse with verbal stimuli. * Brian Jimenez RN - 09/03/2011 8:51 PM CDT Resting in bed. VSS. * Brian Jimenez RN - 09/03/2011 7:13 PM CDT Resting in bed. Unable to provide UA at this time. Encouraged that sample was ne eded. * Emigdio Fisher DO - 09/03/2011 6:22 PM CDT HISTORY OF PRESENT ILLNESS Sophia Hawkins, a 46 y.o. female presents to the ED with a Chief Complaint of D epression Patient was hospitalized at [facility] 2 days and signed herself out AMA. Di agnosed with COPD, interstitial pulmonary disease, anemia, and uncontrolled diab etes, was ruled out for PE by VQ scan. HPI Comments: THIS NOTE IS PREPARED BY [employer] ACTING A SCRIBE FOR SORAIDA FISHER DO. H&P PERFORMED AT:1824 PT IS A 46 YO FEMALE C/O DEPRESSION. PT STATES THAT SHE IS A SITUATION AT HOME W ERE SHE FEELS LIKE SHE IS NOT GETTING THE PROPER CARE THAT SHE NEEDED. PT STATES THAT SHE IS DIABETIC AND HAS NOT EATEN ALL DAY BECAUSE NO ONE WOULD MAKE HER AN YTHING. PT STATES THAT SHE WAS IN THE HOSPITAL TWO DAYS AGO AND SIGNED HERSELF O [facility] BECAUSE THEY WERE TALKING ABOUT PUTTING HER INTO A PENITENTIARY AND SHE DID N OT WANT TO GO THERE. PT DENIES EVER WANTING TO HURT HERSELF OR HAVE ANY SUICIDAL IDEATION. PT IS UNDER A LOT OF EMOTIONAL STRESS BECAUSE SHE LOST HER TWO MONTHS AGO. PT ALSO IS EXPERIENCING ABDOMINAL PAIN. PT STATES THAT SHE HAS PRE VIOUSLY BEEN ADMITTED TO THE [facility] BUT CANNOT RECALL WHAT FOR. PT HAS BEEN A PREVIOUS SMOKER BUT STATES SHE QUITE THE FIRST OF THIS YEAR. PT DENIES AN Y PROBLEMS WITH BOWEL MOVEMENTS AND DENIES ANY DIARRHEA. Patient is a 46 y.o. female presenting with depression. The history is provided by the patient and medical records. The history is limited by the condition of t he patient. No spanish language lecturer was used. Depression The primary symptoms do not include delusions, hallucinations, bizarre behavior, disorganized speech, negative symptoms or somatic symptoms. The current episode started today. This is a new problem. The onset of the illness is precipitated by emotional stress. The degree of inca pacity that she is experiencing as a consequence of her illness is moderate. Seq uelae of the illness include an inability to care for self. Additional symptoms of the illness include insomnia, feelings of worthlessness and abdominal pain. A dditional symptoms of the illness do not include no anhedonia, no hypersomnia, n o appetite change, no unexpected weight change, no fatigue, no agitation, no psy chomotor retardation, no attention impairment, no euphoric mood, no increased go al-directed activity, no flight of ideas, no inflated self-esteem, no decreased need for sleep, not distractible, no poor judgment, no visual change, no headach es or no seizures. She does not admit to suicidal ideas. She does not have a bladimir n to commit suicide. She does not contemplate harming herself. She has not alrea dy injured self. She does not contemplate injuring another person. She has not a lready injured another person. Risk factors: UNKNOWN. REVIEW OF SYSTEMS Review of Systems Constitutional: Negative for fever, chills, appetite change, fatigue and unexpec raphael weight change. HENT: Negative for ear pain, congestion, sore throat, neck pain and neck stiffne ss. Eyes: Negative for redness. Respiratory: Negative for cough and shortness of breath. Cardiovascular: Negative for chest pain. Gastrointestinal: Positive for abdominal pain. Negative for nausea, vomiting and diarrhea. Genitourinary: Negative for dysuria. Musculoskeletal: Negative for arthralgias. Neurological: Negative for seizures and headaches. Psychiatric/Behavioral: Positive for depression. Negative for hallucinations, co nfusion and agitation. The patient has insomnia. PAST MEDICAL HISTORY REVIEWED Past Medical History Diagnosis Date Thromboembolism Lupus Bowel obstruction Asthma HTN (hypertension) CRI (chronic renal insufficiency) Pulmonary embolism june 2010 COPD (chronic obstructive pulmonary disease) Past Surgical History Procedure Date Hx appendectomy Hx hysterectomy Hx cholecystectomy Hx knee surgery Pr insert tunneled cv cath with port 10/08/2010 CATHETER VENOUS ACCESS PLACEMENT performed by APOLLO PINEDA at [facility] Family History Problem Relation Age of Onset Cancer Father Social History Other Topics Concern Not on file History Social History Main Topics Smoking status: Current Everyday Smoker -- 0.5 packs/day for 20 years Types: Cigarettes Smokeless tobacco: Not on file Alcohol Use: No Drug Use: No Sexually Active: Patient Active Problem List Diagnoses Date Noted CO2 narcosis 09/03/2011 Acute bronchitis 07/24/2010 Chronic airway obstruction, not elsewhere classified 07/24/2010 ALLERGIES Aspirin; Codeine; Compazine; Heparin (bovine); Imitrex; Inapsine; Reglan; Minal-3 0; and Toradol HOME MEDICATIONS Patient's Home Medications New Prescriptions for this Encounter Current Home Medications ALBUTEROL INHALATION AMLODIPINE (NORVASC) 5 MG ORAL TABLET Take 1 Tab by mouth daily. CLOPIDOGREL (PLAVIX) 75 MG ORAL TAB CYCLOBENZAPRINE (FLEXERIL) 10 MG ORAL TABLET Take 1 Tab by mouth every 6 filiberto rs as needed. DEXAMETHASONE (DECADRON) 4 MG ORAL TABLET Take 1 Tab by mouth 3 times daily. 1 tid x 3 d-> 1bid x 3d-> 1 qd DOCUSATE SODIUM (COLACE) 100 MG ORAL CAPSULE Take 1 Cap by mouth 2 times agustín ly. ERGOCALCIFEROL (VITAMIN D) 50,000 UNIT ORAL CAPSULE Take 1 Cap by mouth ever y 7 days. ESCITALOPRAM (LEXAPRO) 20 MG ORAL TABLET FENOFIBRATE NANOCRYSTALLIZED (TRICOR) 145 MG ORAL TABLET Take 145 mg by mout h daily. FONDAPARINUX (ARIXTRA) 7.5 MG/0.6 ML SUBCUT SYRG Inject 7.5 mg by subcutaneo us injection daily. HYDROCODONE-ACETAMINOPHEN (NORCO) 5-325 MG ORAL TABLET Take 1 Tab by mouth e very 4 hours as needed for Pain. LEVALBUTEROL (XOPENEX) 1.25 MG/0.5 ML INHALATION NEBU Take 1.25 mg by inhala tion one time only. LEVOTHYROXINE (SYNTHROID) 100 MCG ORAL TABLET METHOCARBAMOL (ROBAXIN) 750 MG ORAL TABLET Take 1 Tab by mouth 3 times daily . MORPHINE SR (MS CONTIN) 30 MG ORAL TABLET Take 1 Tab by mouth 3 times daily. ONDANSETRON (ZOFRAN) 8 MG ORAL TAB Take 1 Tab by mouth every 8 hours as need ed. PREDNISONE (DELTASONE) 10 MG ORAL TABLET Take 10 mg by mouth daily. PROMETHAZINE (PHENERGAN) 25 MG ORAL TABLET Take by mouth every 6 hours as n eeded. 25 to 50 mg TRIMETHOPRIM-SULFAMETHOXAZOLE (BACTRIM DS) 800-160 MG ORAL TABLET Take 1 Tab by mouth 2 times daily. Medications Modified during this Encounter Medications Discontinued during this Encounter PHYSICAL EXAM Initial Vitals BP 09/03/11 1650 138/70 mmHg Pulse 09/03/11 1650 125 Resp 09/03/11 1650 32 Temp -- Temp src -- SpO2 09/03/11 1650 100 % Physical Exam Nursing note and vitals reviewed. Constitutional: She is oriented to person, place, and time. She appears well-dev eloped and well-nourished. HENT: Head: Normocephalic and atraumatic. Right Ear: External ear normal. Left Ear: External ear normal. Nose: Nose normal. Mouth/Throat: Oropharynx is clear and moist and mucous membranes are normal. Eyes: Conjunctivae are normal. Right eye exhibits no discharge. Left eye exhibit s no discharge. Neck: Normal range of motion. Neck supple. Cardiovascular: Normal rate, regular rhythm and normal heart sounds. Exam revea ls no gallop and no friction rub. No murmur heard. Pulmonary/Chest: Effort normal and breath sounds normal. No respiratory distress . She has no wheezes. She has no rales. Abdominal: Soft. There is tenderness. TENDERNESS ON LEFT SIDE OF RIB CAGE. Musculoskeletal: Normal range of motion. Arms: MULTIPLE BRUISES ON UPPER EXTREMITIES WITH VARYING AGES. Neurological: She is alert and oriented to person, place, and time. No cranial n erve deficit or sensory deficit. Skin: Skin is warm and dry. She is not diaphoretic. Psychiatric: She has a normal mood and affect. Her behavior is normal. Judgment and thought content normal. DIAGNOSTICS LAB: Results for orders placed during the hospital encounter of 09/03/11 (from the [facility] 24 hour(s)) COMPREHENSIVE METABOLIC PANEL Component Value Range SODIUM 127 (*) 136-145 (mmol/L) POTASSIUM 3.5 3.5-5.1 (mmol/L) CHLORIDE 90 (*) 98-111 (mmol/L) CO2 31 22-31 (mmol/L) CALCIUM 9.1 8.3-10.3 (mg/dL) BUN 16 7-21 (mg/dL) CREATININE 1.08 (*) 0.44-1.00 (mg/dL) GLUCOSE 184 (*) 70-105 (mg/dL) TOTAL PROTEIN 7.8 5.8-8.2 (g/dL) ALBUMIN 4.1 3.5-5.0 (g/dL) BILIRUBIN TOTAL 0.7 0.2-1.3 (mg/dL) ALKALINE PHOSPHATASE 107 38-126 (U/L) AST 66 (*) 15-46 (U/L) ALT 58 11-66 (U/L) GFR 54 (*) >=60 (mL/min/1.73 sq meter) GFR, 66 >=60 (mL/min/1.73 sq meter) ETHANOL LEVEL Component Value Range ETHANOL <5.00 ETHANOL % <0.01 <=0.01 (%w/v) SALICYLATE LEVEL Component Value Range SALICYLATE LEVEL <4.0 3.0-20.0 (mg/dL) ACETAMINOPHEN LEVEL Component Value Range ACETAMINOPHEN LEVEL 11 10-30 (ug/mL) MAGNESIUM LEVEL Component Value Range MAGNESIUM 1.8 1.6-2.4 (mg/dL) PHOSPHORUS Component Value Range PHOSPHORUS 3.5 2.5-4.5 (mg/dL) CBC WITH DIFFERENTIAL Component Value Range WBC 5.7 4.0-11.0 (K/uL) RBC 3.52 (*) 4.20-5.40 (M/uL) HEMOGLOBIN 9.4 (*) 12.5-16.0 (g/dL) HEMATOCRIT 30.4 (*) 37.0-47.0 (%) MCV 86.4 78.0-100.0 (fL) MCH 26.7 (*) 27.0-34.0 (pg) MCHC 30.9 (*) 31.0-37.0 (g/dL) RDW 16.1 (*) 12.0-15.0 (%) RDW-STDEV 49.5 (*) 37.1-48.7 (fL) PLATELETS 201 150-450 (K/uL) MPV 10.2 9.3-12.4 (fL) SPECIMEN HOLD, BLUE TOP Component Value Range EXTRA TUBE RECEIVED Blue SPECIMEN HOLD, RED TOP Component Value Range EXTRA TUBE RECEIVED Red MANUAL DIFFERENTIAL Component Value Range ADJUSTED WBC 5.7 4.0-11.0 (K/uL) SEGMENTED NEUTROPHILS 49 31-76 (%) BANDS RELATIVE 13 (*) 2-6 (%) LYMPHOCYTES RELATIVE 25 24-44 (%) MONOCYTES RELATIVE 4 2-11 (%) EOSINOPHILS RELATIVE 5 0-6 (%) BASOPHILS RELATIVE 2 0-2 (%) MYELOCYTES - REL (DIFF) 2 (*) <=0 (%) PLATELET EST. Adequate NEUTROPHILS ABSOLUTE COUNT 3.53 1.24-8.36 (K/uL) LYMPHOCYTES ABSOLUTE 1.43 1.00-4.80 (K/uL) MONOCYTES ABSOLUTE 0.23 0.10-1.30 (K/uL) EOSINOPHILS ABSOLUTE 0.29 0.00-0.70 (K/uL) BASOPHILS ABSOLUTE 0.11 0.00-0.20 (K/uL) MYELOCYTES - ABS (DIFF) 0.11 (*) <=0.00 (K/uL) ANISOCYTOSIS 1+ POLYCHROMASIA 1+ BASOPHILIC STIPPLING 1+ HYPOCHROMIA 1+ TOTAL CELLS COUNTED IN DIFF 100 WBC MORPHOLOGY Normal POC GLUCOSE Component Value Range POC GLUCOSE 168 (*) 65-99 (mg/dL) DRUG SCREEN, URINE Component Value Range ACETAMINOPHEN QUAL URINE Presumptive Positive (*) Negative, Test Not Included AMPHETAMINE QUAL, URINE Negative Negative METHAMPHETAMINE QUAL, URINE Negative Negative BARBITURATE QUAL, URINE Negative Negative BENZODIAZEPINE QUAL, URINE Negative Negative COCAINE QUAL URINE Negative Negative METHADONE QUAL, URINE Negative Negative OPIATE QUAL, URINE Presumptive Positive (*) Negative PCP QUAL, URINE Negative Negative CANNABINOIDS QUAL, URINE Presumptive Positive (*) Negative TRICYCLICS QUAL, URINE Presumptive Positive (*) Negative HCG QUALITATIVE, URINE Component Value Range HCG QUAL URINE Negative Negative SPECIFIC GRAVITY UA 1.004 (*) 1.005-1.050 URINALYSIS WITH REFLEX CULTURE Component Value Range COLOR UA Yellow CLARITY UA Clear SPECIFIC GRAVITY UA 1.004 (*) 1.005-1.050 PH UA 6.0 LEUKOCYTE ESTERASE UA Negative Negative NITRITE UA Negative Negative PROTEIN UA Negative Negative GLUCOSE UA Negative Negative KETONES UA Negative Negative UROBILINOGEN UA 4.0 (*) 0.2, 1.0 (mg/dL) BILIRUBIN UA Negative Negative BLOOD UA 2+ (*) Negative WBC UA None Seen None Seen, 0-2 (/hpf) RBC UA 0-2 None Seen, 0-2 (/hpf) BACTERIA UA Negative Negative EPITHELIAL CELLS, URINE 0-5 0-5 (/hpf) RADIOLOGY: EKG: FIRST ED EKG Signed and interpreted by the Emergency Physician. Time Performed:1850 Time Interpreted:1854 Rate:89 Interpretation:NSR, RIGHT BUNDLE BRANCH BLOCK. NO ECTOPY. Comparison:NO PRIOR. PROCEDURES Procedures REEVALUATION 2129. Awaiting labs, patient requesting something for pain. Given fentanyl. 2199. Sleeping. Medical records from [facility] reviewed by me. 2299. Patient admission to behavioral health retracted. Patient has medical issu es that require stabilization in hospital. Will admit to hospitalist service. MEDICAL DECISION MAKING AND PLAN OF CARE . New Prescriptions for this Encounter Last vitals BP 112/68 | Pulse 80 | Resp 16 | Ht 5' 7" (1.702 m) | Wt 95.709 kg | BMI 33.05 kg/m2 | SpO2 98% Recent hospitalization but left AMA. Will obtain all old medical records to eval medical issues. Patient will need psych eval to address her depression. Denies feeling suicidal but wants to because her is from a rupture d abdominal aneurysm. Patient may be overmedicating. Is not monitoring her blood sugars, eating or drinking. Coding CLINICAL IMPRESSION Encounter Diagnoses Name Primary? Depression Acute pain due to trauma Altered mental status Chronic pain syndrome CASE DISCUSSED PATIENT COUNSELING Diagnostics reviewed and questions answered. Diagnosis, treatment options and p ricky of care discussed with understanding verbalized. DISPOSITION, EDUCATION AND MEDICATION RECONCILIATION Medications reconciled. See after visit summary for patient education on discha rged patients. The scribe's documentation has been prepared under my direction and personally r eviewed by me in its entirety. I confirm that the note above accurately reflects all work, treatment, procedures, and medical decision making performed by me. * Emigdio Fisher DO - 09/03/2011 6:21 PM CDT HISTORY OF PRESENT ILLNESS Sophia Hawkins, a 46 y.o. female presents to the ED with a Chief Complaint of D epression Patient is a 46 y.o. female presenting with depression. The history is provided by the patient. Depression REVIEW OF SYSTEMS Review of Systems Psychiatric/Behavioral: Positive for depression. PAST MEDICAL HISTORY REVIEWED Past Medical History Diagnosis Date Thromboembolism Lupus Bowel obstruction Asthma HTN (hypertension) CRI (chronic renal insufficiency) Pulmonary embolism june 2010 COPD (chronic obstructive pulmonary disease) Past Surgical History Procedure Date Hx appendectomy Hx hysterectomy Hx cholecystectomy Hx knee surgery Pr insert tunneled cv cath with port 10/08/2010 CATHETER VENOUS ACCESS PLACEMENT performed by APOLLO PINEDA at [facility] Family History Problem Relation Age of Onset Cancer Father Social History Other Topics Concern Not on file History Social History Main Topics Smoking status: Current Everyday Smoker -- 0.5 packs/day for 20 years Types: Cigarettes Smokeless tobacco: Not on file Alcohol Use: No Drug Use: No Sexually Active: Patient Active Problem List Diagnoses Date Noted Acute bronchitis 07/24/2010 Chronic airway obstruction, not elsewhere classified 07/24/2010 ALLERGIES Aspirin; Codeine; Compazine; Heparin (bovine); Imitrex; Inapsine; Reglan; Minal-3 0; and Toradol HOME MEDICATIONS Patient's Home Medications Current Home Medications ALBUTEROL INHALATION AMLODIPINE (NORVASC) 5 MG ORAL TABLET Take 1 Tab by mouth daily. CLOPIDOGREL (PLAVIX) 75 MG ORAL TAB CYCLOBENZAPRINE (FLEXERIL) 10 MG ORAL TABLET Take 1 Tab by mouth every 6 filiberto rs as needed. DEXAMETHASONE (DECADRON) 4 MG ORAL TABLET Take 1 Tab by mouth 3 times daily. 1 tid x 3 d-> 1bid x 3d-> 1 qd DOCUSATE SODIUM (COLACE) 100 MG ORAL CAPSULE Take 1 Cap by mouth 2 times agustín ly. ERGOCALCIFEROL (VITAMIN D) 50,000 UNIT ORAL CAPSULE Take 1 Cap by mouth ever y 7 days. ESCITALOPRAM (LEXAPRO) 20 MG ORAL TABLET FENOFIBRATE NANOCRYSTALLIZED (TRICOR) 145 MG ORAL TABLET Take 145 mg by mout h daily. FONDAPARINUX (ARIXTRA) 7.5 MG/0.6 ML SUBCUT SYRG Inject 7.5 mg by subcutaneo us injection daily. HYDROCODONE-ACETAMINOPHEN (NORCO) 5-325 MG ORAL TABLET Take 1 Tab by mouth e very 4 hours as needed for Pain. LEVALBUTEROL (XOPENEX) 1.25 MG/0.5 ML INHALATION NEBU Take 1.25 mg by inhala tion one time only. LEVOTHYROXINE (SYNTHROID) 100 MCG ORAL TABLET METHOCARBAMOL (ROBAXIN) 750 MG ORAL TABLET Take 1 Tab by mouth 3 times daily . MORPHINE SR (MS CONTIN) 30 MG ORAL TABLET Take 1 Tab by mouth 3 times daily. ONDANSETRON (ZOFRAN) 8 MG ORAL TAB Take 1 Tab by mouth every 8 hours as need ed. PREDNISONE (DELTASONE) 10 MG ORAL TABLET Take 10 mg by mouth daily. PROMETHAZINE (PHENERGAN) 25 MG ORAL TABLET Take by mouth every 6 hours as n eeded. 25 to 50 mg TRIMETHOPRIM-SULFAMETHOXAZOLE (BACTRIM DS) 800-160 MG ORAL TABLET Take 1 Tab by mouth 2 times daily. Medications Modified during this Encounter Medications Discontinued during this Encounter PHYSICAL EXAM Initial Vitals BP 09/03/11 1650 138/70 mmHg Pulse 09/03/11 1650 125 Resp 09/03/11 1650 32 Temp -- Temp src -- SpO2 09/03/11 1650 100 % Physical Exam DIAGNOSTICS LAB: RADIOLOGY: EKG: PROCEDURES Procedures REEVALUATION MEDICAL DECISION MAKING AND PLAN OF CARE . New Prescriptions for this Encounter Last vitals BP 128/74 | Pulse 95 | Resp 20 | Ht 5' 7" (1.702 m) | Wt 95.709 kg | BMI 33.05 kg/m2 | SpO2 94% Coding CLINICAL IMPRESSION No diagnosis found. CASE DISCUSSED PATIENT COUNSELING Diagnostics reviewed and questions answered. Diagnosis, treatment options and p ricky of care discussed with understanding verbalized. DISPOSITION, EDUCATION AND MEDICATION RECONCILIATION Medications reconciled. See after visit summary for patient education on discha rged patients. * Christelle Cortez RN - 09/03/2011 5:52 PM CDT 1752: Pt states she is depressed. Pt states she is feeling very overwhelmed. Pt states she recently lost her , and has numerous health problems. Pt denie s SI/HI. Pt states she is living with her son and girlfriend and is not getting adequate care there. 1828: Dr Fisher in with pt 8: Report to Milton CARDOZA * Luana Pina RN - 09/03/2011 4:53 PM CDT Patient here with [facility] for SI and depression. documented in this encounter Miscellaneous Notes * Scanned Form - Sgf Scanning, Him - 09/07/2011 12:13 PM CDT Electronically signed by Interface, Sunil Sgf Transcriptions Incoming at 2 12:13 PM CDT * Patient Instructions - Sgf Scanning, [facility] - 09/07/2011 12:13 PM CDT Electronically signed by Interface, Sunil Sgf Transcriptions Incoming at 2 12:13 PM CDT * Scanned Form - Sgf Scanning, [facility] - 09/06/2011 12:16 PM CDT Electronically signed by Interface, Sunil Sgf Transcriptions Incoming at 2 12:16 PM CDT documented in this encounter Plan of Treatment Not on filedocumented as of this encounter Procedures Comments Procedure Name Priority Date/Time Associated Diag nosis [place] ELECTROCARDIOGRAM, Stat 09/09/2011 COMPLETE 8:19 AM CDT TELEMETRY REPORT 09/07/2011 12:13 PM CDT POC GLUCOSE Routine 09/05/2011 11:50 AM CDT IRON, TIBC, AND PERCENT Routine 09/05/2011 SATURATION 10:31 AM CDT CBC WITH DIFFERENTIAL Routine 09/05/2011 10:31 AM CDT BASIC METABOLIC PANEL Routine 09/05/2011 10:31 AM CDT POC GLUCOSE Routine 09/04/2011 8:07 PM CDT POC GLUCOSE Routine 09/04/2011 5:40 PM CDT POC GLUCOSE Routine 09/04/2011 2:18 PM CDT POC GLUCOSE Routine 09/04/2011 8:08 AM CDT URINALYSIS W/REFLEX Stat 09/04/2011 MICROSCOPIC 2:39 AM CDT POC, BLOOD GASES Routine 09/04/2011 12:26 AM CDT OXYGEN VIA DEVICE TO KEEP Stat 09/03/2011 O2 SAT ABOVE 10:52 PM CDT URINALYSIS WITH REFLEX Stat 09/03/2011 CULTURE 8:57 PM CDT DRUG SCREEN, URINE Stat 09/03/2011 8:57 PM CDT HCG QUALITATIVE, URINE Stat 09/03/2011 8:57 PM CDT POC GLUCOSE Stat 09/03/2011 6:44 PM CDT SPECIMEN HOLD, BLUE TOP Stat 09/03/2011 6:26 PM CDT SPECIMEN HOLD, RED TOP Stat 09/03/2011 6:26 PM CDT DIFFERENTIAL, MANUAL Stat 09/03/2011 6:26 PM CDT CBC WITH DIFFERENTIAL Stat 09/03/2011 6:26 PM CDT PHOSPHORUS Stat 09/03/2011 6:11 PM CDT MAGNESIUM LEVEL Stat 09/03/2011 6:11 PM CDT ETHANOL LEVEL Stat 09/03/2011 6:11 PM CDT ACETAMINOPHEN LEVEL Stat 09/03/2011 6:11 PM CDT SALICYLATE LEVEL Stat 09/03/2011 6:11 PM CDT COMPREHENSIVE METABOLIC Stat 09/03/2011 PANEL 6:11 PM CDT documented in this encounter Results * EKG 12-LEAD (09/09/2011 8:19 AM CDT) Narrative Performed At This result has an attachment that is n ot available. Transcriptions 09/09/2011 8:19 AM CDT * TELEMETRY REPORT (09/07/2011 12:13 PM CDT) Narrative Performed At This result has an attachment that is n ot available. Transcriptions 09/07/2011 12:13 PM CDT * POC GLUCOSE (09/05/2011 11:50 AM CDT) POC GLUCOSE 216 (H) 65 - 99 mg/dL [facility] LABORATORY SERVICES - [place] Specimen Capillary blood specimen (specimen) Performing Organization Address [facility] one Joe [facility] LABORATORY SERVICES CLIA # [id number] [place] [address] - [place] 100 [facility] LABORATORY SERVICES CLIA # [id number] [place] [address] - [place] 2817 [facility] * BASIC METABOLIC PANEL (09/05/2011 10:31 AM CDT) SODIUM 135 (L) 136 - 145 mmol/L [facility] - [place] POTASSIUM 3.5 3.5 - 5.1 mmol/L [facility] [place] CHLORIDE 96 (L) 98 - 111 mmol/L [facility] - [place] CO2 37 (H) 22 - 31 mmol/L [facility] LABORATORY SERVICES - [place] CALCIUM 9.2 8.3 - 10.3 mg/dL [facility] LAB[facility] SERVICES - [place] BUN 16 7 - 21 mg/dL [facility] LAB[facility] SERVICES - [place] CREATININE 0.74 0.44 - 1.00 mg/dL [facility] LAB[facility]ATORY SERVICES - [place] GLUCOSE 267 (H) 70 - 105 mg/dL [facility] LAB[facility]ATORY SERVICES - [place] GFR 84 >=60 mL/min/1.73 sq [facility] LAB[facility]ORY [facility] - [place] GFR, 102 >=60 mL/min/1.73 sq [facility] meter LABORATORY SERVICES - [place] Specimen Blood specimen (specimen) Narrative Performed At eGFR has not been validated for use in the elderly (> 70 years of age), [facility] LABORATORY women, patients with serious co-morbid conditions, or persons with extremes of SERVICES - [place] body size or muscle mass and should als o be interpreted with caution in patients with acute kidney failure, dialysis dep endant patients, patients reporting exceptional dietary intake (e.g. vegeta brandon diet, high protein diets, creatine supplementation), and patients with sev ere liver disease. Based on National Kidney Disease Educat ion Program Performing Organization Address [facility] Ph one Joe [facility] LABORATORY SERVICES CLIA # [id number] [place] [address] - [place] 100 [facility] LABORATORY SERVICES CLIA # [id number] [place] [address] - [facility] * IRON, TIBC, AND PERCENT SATURATION (09/05/2011 10:31 AM CDT) IRON 50 35 - 170 ug/dL [facility] TIBC 508 (H) 250 - 450 ug/dL [facility] LABORATORY SERVICES - [place] IRON % 10 (L) 15 - 50 % [facility] SATURATION LABORATORY SERVICES - [place] Specimen Blood specimen (specimen) Performing Organization Address City/State/Zipcode Ph one Number [facility] CLIA # [id number] [place] [address] - [place] [address] [facility] LABORATORY SERVICES CLIA # [id number] [place] [address] - [place] [id number] [facility] * CBC WITH DIFFERENTIAL (09/05/2011 10:31 AM CDT) WBC 5.4 4.0 - 11.0 K/uL [facility] LABORATORY SERVICES - [place] RBC 3.38 (L) 4.20 - 5.40 M/uL [facility] LABORATORY SERVICES - [place] HEMOGLOBIN 9.1 (L) 12.5 - 16.0 g/dL [facility] LABORATORY SERVICES - [place] HEMATOCRIT 30.2 (L) 37.0 - 47.0 % [facility] LABORATORY SERVICES - [place] MCV 89.3 78.0 - 100.0 fL [facility] LABORATORY SERVICES - [place] MCH 26.9 (L) 27.0 - 34.0 pg [facility] LABORATORY SERVICES - [place] MCHC 30.1 (L) 31.0 - 37.0 g/dL [facility] LABORATORY SERVICES - [place] RDW 16.9 (H) 12.0 - 15.0 % [facility] LAB[place]ATORY [place] RDW-STDEV 53.5 (H) 37.1 - 48.7 fL [facility] LABORATORY SERVICES - [place] PLATELETS 198 150 - 450 K/uL [facility] LABORATORY SERVICES - [place] MPV 9.8 9.3 - 12.4 fL [facility] - [place] NEUTROPHILS 61 31 - 76 % [facility] - [place] LYMPHOCYTES 27 24 - 44 % [facility] - [place] MONOCYTES 10 2 - 11 % [facility] - [place] EOSINOPHILS 2 0 - 6 % [facility] - [place] BASOPHILS 0 0 - 2 % [facility] - [place] NEUTROPHIL 3.28 1.80 - 7.70 K/uL [facility] ABSOLUTE LABORATORY SERVICES - [place] LYMPHOCYTE 1.46 1.00 - 4.80 K/uL [facility] SERVICES - [place] MONOCYTE 0.56 0.10 - 1.30 K/uL [facility]UTE [facility]ATORY SERVICES - [place] EOSINOPHIL 0.08 0.00 - 0.70 K/uL [facility] ABSOLUTE LABORATORY SERVICES - [place] BASOPHILS 0.01 0.00 - 0.20 K/uL [facility] ABSOLUTE LABORATORY SERVICES - [place] Specimen Blood specimen (specimen) Performing Organization Address [facility] LABORATORY SERVICES CLIA # [id number] [place] [address] - [place] [address] [facility] LABORATORY SERVICES CLIA # [id number] [place] [address] - [place] 2817 [facility] * POC GLUCOSE (09/04/2011 8:07 PM CDT) POC GLUCOSE 230 (H) 65 - 99 mg/dL [facility] [employer] SERVICES - [place] Specimen Capillary blood specimen (specimen) Performing Organization Address [facility] one [facility] [employer] LABORATORY SERVICES CLIA # [id number] [place] [address] - [place] 100 [facility] [employer] LABORATORY SERVICES CLIA # [id number] [place], [place] [address] - [place] 2817 [facility] * POC GLUCOSE (09/04/2011 5:40 PM CDT) POC GLUCOSE 213 (H) 65 - 99 mg/dL [facility] LABORATORY SERVICES - [place] Specimen Capillary blood specimen (specimen) Performing Organization Address [facility] one [facility] [employer] LABORATORY SERVICES CLIA # [id number] [place] [address] - [place] [address] [facility] LABORATORY SERVICES CLIA # [id number] [place], [place] [address] - [place] 2817 [facility] * POC GLUCOSE (09/04/2011 2:18 PM CDT) POC GLUCOSE 171 (H) 65 - 99 mg/dL [facility] LABORATORY SERVICES - [place] Specimen Capillary blood specimen (specimen) Performing Organization Address [facility] one [facility] LABORATORY SERVICES CLIA # [id number] [place] [address] - [place] [address] [facility] LABORATORY SERVICES CLIA # [id number] [place], [place] [address] - [place] 2817 [facility] * POC GLUCOSE (09/04/2011 8:08 AM CDT) POC GLUCOSE 165 (H) 65 - 99 mg/dL [facility] LABORATORY SERVICES - [place] Specimen Capillary blood specimen (specimen) Performing Organization Address [facility] one Number [facility] LABORATORY SERVICES CLIA # [id number] [place] [address] - [place] [address] [facility] LABORATORY SERVICES CLIA # [id number] [place], [place] [address] - [place] 2817 [facility] * URINALYSIS (09/04/2011 2:39 AM CDT) COLOR UA Yellow [facility] LABORATORY SERVICES - [place] CLARITY UA Clear [facility] LABORATORY SERVICES - [place] SPECIFIC 1.004 (L) 1.005 - 1.050 [facility] GRAVITY [facility] LABORATORY SERVICES - [place] PH UA 6.0 [facility] LABORATORY SERVICES - [place] LEUKOCYTE Negative Negative [facility] LAB[facility]ATORY SERVICES - [place] NITRITE UA Negative Negative [facility] LABORATORY SERVICES - [place] PROTEIN UA Negative Negative [facility] LABORATORY SERVICES - [place] GLUCOSE UA Negative Negative [facility] LABORATORY SERVICES - [place] KETONES UA Negative Negative [facility] LABORATORY SERVICES - [place] UROBILINOGEN UA 4.0 (A) <2.0 mg/dL [facility] LABORATORY SERVICES - [place] BILIRUBIN UA Negative Negative [facility] LABORATORY SERVICES - [place] BLOOD UA 2+ (A) Negative [facility] LABORATORY SERVICES - [place] WBC UA 0-2 None Seen, 0-2 /hpf [facility] LABORATORY SERVICES - [place] RBC UA 0-2 None Seen, 0-2 /hpf [facility] LABORATORY SERVICES - [place] BACTERIA UA Negative Negative [facility] LABORATORY SERVICES - [place] EPITHELIAL 0-5 0 - 5 /hpf [facility] CELLS, URINE LABORATORY SERVICES - [place] Specimen Urine, clean catch - Urine, clean catch Performing Organization Address City/State/Zipcode Ph one Number [facility] LABORATORY SERVICES CLIA # [id number] [place] [address] - [place] [address] [facility] LABORATORY SERVICES CLIA # [id number] [place] [address] - [place] 2817 [facility] * POC, BLOOD GASES (09/04/2011 12:26 AM CDT) PH BLOOD POC 7.25 (L) 7.38 - 7.46 [facility] LABORATORY SERVICES - [place] PCO2 POC 86 (HH) 32 - 46 mm Hg [facility] LABORATORY SERVICES - [place] POC PO2 <15 (LL) 74 - 108 mm Hg [facility] LABORATORY SERVICES - [place] HCO3 (CALC) POC 38 (H) 21 - 29 mmol/L [facility] LABORATORY SERVICES - [place] POC HEMOGLOBIN 11.2 (L) 12.5 - 15.5 g/dL [facility] LABORATORY SERVICES - [place] BASE EXCESS POC 10 (H) -2 - 2 mmol/L [facility] LABORATORY SERVICES - [place] POC O2 SAT <15 (L) 92 - 98 % [facility] LABORATORY SERVICES - [place] TOTAL CO2 POC 40 (H) 22 - 31 mmol/L [facility] LABORATORY SERVICES - [place] POC SODIUM 131 (L) 136 - 145 meq/L [facility] LABORATORY SERVICES - [place] POC POTASSIUM 4.1 3.5 - 5.1 meq/L [facility] LABORATORY SERVICES - [place] POC HEMATOCRIT 33.0 (L) 37.0 - 47.0 % [facility] LABORATORY SERVICES - [place] POC IONIZED 1.25 1.12 - 1.30 mg/dL [facility] CALCIUM LABORATORY SERVICES - [place] POC GLUCOSE 136 (H) 65 - 99 mg/dL [facility] SERVICES - [place] PATIENT'S 97.8 degrees [facility] TEMPERATURE LABORATORY SERVICES - [place] PH TEMP CORRECT 7.26 (L) 7.38 - 7.46 [facility] - [place] PCO2 TEMP 84 (HH) 32 - 46 mm Hg [facility] CORRECT LABORATORY SERVICES - [place] PO2 TEMP <15 (LL) 74 - 108 mm Hg [facility] CORRECT LABORATORY SERVICES - [place] SPECIMEN ART [facility] SOURCE, GASES LABORATORY SERVICES - [place] COMMENT, GASES Not Applicable [facility] POC LABORATORY SERVICES - [place] Specimen Blood specimen (specimen) Narrative Performed At References ranges displayed is for Blood Gas Arterial [facility] - [place] Performing Organization Address City/State/Zipcode Ph one Number [facility]ORY SERVICES CLIA # [id number] [place] [address] - [place] 100 [facility] SERVICES CLIA # [id number] [place] [address] - [place] 2817 [facility] * URINALYSIS WITH REFLEX CULTURE (09/03/2011 8:57 PM CDT) COLOR UA Yellow [facility] - [place] CLARITY UA Clear [facility] - [place] SPECIFIC 1.004 (L) 1.005 - 1.050 [facility] GRAVITY [facility]A LABORATORY SERVICES - [place] PH UA 6.0 [facility] - [place] LEUKOCYTE Negative Negative [facility] ESTERASE [facility] LABORATORY SERVICES - [place] NITRITE UA Negative Negative [facility] - [place] PROTEIN UA Negative Negative [facility] - [place] GLUCOSE UA Negative Negative [facility] - [place] KETONES UA Negative Negative [facility] - [place] UROBILINOGEN UA 4.0 (A) 0.2, 1.0 mg/dL [facility] - [place] BILIRUBIN UA Negative Negative [facility] - [place] BLOOD UA 2+ (A) Negative [facility] - [place] WBC UA None Seen None Seen, 0-2 /hpf [facility] - [place] RBC UA 0-2 None Seen, 0-2 /hpf [facility] - [place] BACTERIA UA Negative Negative [facility] SERVICES - [place] EPITHELIAL 0-5 0 - 5 /hpf [facility] CELLS, URINE LABORATORY SERVICES - [place] Specimen Urine specimen (specimen) Performing Organization Address [facility] Ph one Number [facility] LABORATORY SERVICES CLIA # [id number] [place] [address] - [place] [address] [facility] LABORATORY SERVICES CLIA # [id number] [place] [address] - [place] 2817 [facility] * HCG QUALITATIVE, URINE (09/03/2011 8:57 PM CDT) HCG QUAL URINE Negative Negative [facility] - [place] SPECIFIC 1.004 (L) 1.005 - 1.050 [facility] GRAVITY [facility]A LABORATORY SERVICES - [place] Specimen Urine specimen (specimen) Narrative Performed At Urine results may be falsely negative due t o low specific gravity. [facility] LABORATORY SERVICES - [place] Performing Organization Address [facility] one Number [facility] LABORATORY SERVICES CLIA # [id number] [place] [address] - [place] 100 [facility] LABORATORY SERVICES CLIA # [id number] [place], [place] [address] - [place] 2817 [facility] * DRUG SCREEN, URINE (09/03/2011 8:57 PM CDT) ACETAMINOPHEN Presumptive Positive (A) Negative, Test Not M [facility] QUAL URINE Included LABORATORY SERVICES - [place] AMPHETAMINE Negative Negative [facility] QUAL, URINE LAB[facility]ATORY SERVICES - [place] METHAMPHETAMINE Negative Negative [facility] QUAL, URINE LABORATORY SERVICES - [place] BARBITURATE Negative Negative [facility] QUAL, URINE LABORATORY SERVICES - [place] BENZODIAZEPINE Negative Negative [facility] QUAL, URINE LABORATORY SERVICES - [place] COCAINE QUAL Negative Negative [facility] URINE LAB[facility] SERVICES - [place] METHADONE QUAL, Negative Negative [facility] URINE LAB[facility] SERVICES - [place] OPIATE QUAL, Presumptive Positive (A) Negative [facility] URINE LAB[facility] SERVICES - [place] PCP QUAL, URINE Negative Negative [facility] - [place] CANNABINOIDS Presumptive Positive (A) Negative [facility] QUAL, URINE LABORATORY SERVICES - [place] TRICYCLICS Presumptive Positive (A) Negative [facility] QUAL, URINE LAB[facility]ATORY SERVICES - [place] Specimen Urine specimen (specimen) Narrative Performed At Cut-off concentrations for each drug class are listed below: [facility] Acetaminophen 5 mcg/mL SERVICES - [place] Amphetamines 1000 n g/mL Methamphetamines 1000 ng/ mL Barbiturates 300 n g/mL Benzodiazepines 300 ng /mL Cocaine 30 0 ng/mL Methadone 300 ng/mL Opiates 30 0 ng/mL Phencyclidine 25 n g/mL Tetrahydrocannabinol 50 ng/m L Tricyclic Antidepressants 1000 ng/mL This test provides a preliminary result only. Clinical consideration and professional judgment must be applied t o any drug of abuse test, particularly in evaluating a preliminary positive resul t. The most common method of confirming preliminary positive results is Gas Chr omatography/Mass Spectroscopy (GC/MS). Performing Organization Address [facility] one [facility] LABORATORY SERVICES CLIA # [id number] [place] [address] - [place] 100 [facility] LABORATORY SERVICES CLIA # [id number] [place] [address] - [place] 2817 [facility] * POC GLUCOSE (09/03/2011 6:44 PM CDT) POC GLUCOSE 168 (H) 65 - 99 mg/dL [facility] LABORATORY SERVICES - [place] Specimen Capillary blood specimen (specimen) Performing Organization Address [facility] one [facility] SERVICES CLIA # [id number] [place] [address] - [place] 100 [facility] LABORATORY SERVICES CLIA # [id number] [place] [address] - [place] 2817 [facility] * MANUAL DIFFERENTIAL (09/03/2011 6:26 PM CDT) ADJUSTED WBC 5.7 4.0 - 11.0 K/uL [facility] LABORATORY SERVICES - [place] SEGMENTED 49 31 - 76 % [facility] NEUTROPHILS LABORATORY SERVICES - [place] BANDS RELATIVE 13 (H) 2 - 6 % [facility] - [place] LYMPHOCYTES 25 24 - 44 % [facility] RELATIVE LAB[facility]ATORY SERVICES - [place] MONOCYTES 4 2 - 11 % [facility] RELATIVE LAB[facility]AT[facility] SERVICES - [place] EOSINOPHILS 5 0 - 6 % [facility] REL[facility]IVE LAB[facility] SERVICES - [place] BASOPHILS 2 0 - 2 % [facility] RELATIVE LAB[facility]AT[facility] SERVICES - [place] MYELOCYTES - 2 (H) <=0 % [facility] REL (DIFF) LABORATORY SERVICES - [place] PLATELET EST. Adequate [facility] SERVICES - [place] NEUTROPHILS 3.53 1.24 - 8.36 K/uL [facility] ABSOLUTE COUNT LABORATORY SERVICES - [place] LYMPHOCYTES 1.43 1.00 - 4.80 K/uL [facility] ABSOLUTE LAB[facility]ATORY SERVICES - [place] MONOCYTES 0.23 0.10 - 1.30 K/uL [facility] ABSOLUTE LAB[facility]AT[facility] SERVICES - [place] EOSINOPHILS 0.29 0.00 - 0.70 K/uL [facility] ABSOLUTE LAB[facility]ATORY SERVICES - [place] BASOPHILS 0.11 0.00 - 0.20 K/uL [facility] ABSOLUTE LABORATORY SERVICES - [place] MYELOCYTES - 0.11 (H) <=0.00 K/uL [facility] ABS (DIFF) LABORATORY SERVICES - [place] ANISOCYTOSIS 1+ /hpf [facility] LABORATORY SERVICES - [place] POLYCHROMASIA 1+ /hpf [facility] LABORATORY SERVICES - [place] BASOPHILIC 1+ /hpf [facility] STIPPLING LABORATORY SERVICES - [place] HYPOCHROMIA 1+ /hpf [facility] LABORATORY SERVICES - [place] TOTAL CELLS 100 [facility] COUNTED IN DIFF LABORATORY SERVICES - [place] WBC MORPHOLOGY Normal [facility] LABORATORY SERVICES - [place] Specimen Blood specimen (specimen) Performing Organization Address City/[facility] Ph one [facility] LABORATORY SERVICES CLIA # [id number] [place] [address] - [place] 100 [facility] LABORATORY SERVICES CLIA # [id number] [place] [address] - [place] 2816 [facility] * SPECIMEN HOLD, RED TOP (09/03/2011 6:26 PM CDT) EXTRA TUBE Red [facility] RECEIVED LABORATORY SERVICES - [place] Specimen Blood specimen (specimen) Performing Organization Address City/[facility] Ph one Number [facility] LABORATORY SERVICES CLIA # [id number] [place] [address] - [place] 100 [facility] LABORATORY SERVICES CLIA # [id number] [place], [place] [address] - [place] 2819 [facility] * SPECIMEN HOLD, BLUE TOP (09/03/2011 6:26 PM CDT) Pathologist [facility] EXTRA TUBE Blue [facility] LABORATORY SERVICES - [place] Specimen Blood specimen (specimen) Performing Organization Address [facility] Ph one Number [facility] LABORATORY SERVICES CLIA # [id number] [place] [address] - [place] 100 [facility] LABORATORY SERVICES CLIA # [id number] [place] [address] - [place] 2813 [facility] * CBC WITH DIFFERENTIAL (09/03/2011 6:26 PM CDT) [facility] WBC 5.7 4.0 - 11.0 K/uL [facility] LABORATORY SERVICES - [place] RBC 3.52 (L) 4.20 - 5.40 M/uL [facility] LABORATORY SERVICES - [place] HEMOGLOBIN 9.4 (L) 12.5 - 16.0 g/dL [facility] LABORATORY SERVICES - [place] HEMATOCRIT 30.4 (L) 37.0 - 47.0 % [facility] LABORATORY SERVICES - [place] MCV 86.4 78.0 - 100.0 fL [facility] LABORATORY SERVICES - [place] MCH 26.7 (L) 27.0 - 34.0 pg [facility] LABORATORY SERVICES - [place] MCHC 30.9 (L) 31.0 - 37.0 g/dL [facility] LABORATORY SERVICES - [place] RDW 16.1 (H) 12.0 - 15.0 % [facility] LAB[place]ATORY SERVICES - [place] RDW-STDEV 49.5 (H) 37.1 - 48.7 [facility] LABORATORY SERVICES - [place] PLATELETS 201 150 - 450 K/uL [facility] LABORATORY SERVICES - [place] MPV 10.2 9.3 - 12.4 [facility] LABORATORY SERVICES - [place] Specimen Blood specimen (specimen) Performing Organization Address City/State/[facility] Ph one Number [facility] LABORATORY SERVICES CLIA # [id number] [place] [address] - [place] 100 [facility] LABORATORY SERVICES CLIA # [id number] [place], [place] [address] - [place] [address] [facility] * PHOSPHORUS (09/03/2011 6:11 PM CDT) PHOSPHORUS 3.5 2.5 - 4.5 mg/dL [facility] LABORATORY SERVICES - [place] Specimen Blood specimen (specimen) Performing Organization Address [facility] LABORATORY SERVICES CLIA # [id number] [place] [address] - [place] 100 [facility] LABORATORY SERVICES CLIA # [id number] [place], [place] [address] - [place] 2817 [facility] * MAGNESIUM LEVEL (09/03/2011 6:11 PM CDT) MAGNESIUM 1.8 1.6 - 2.4 mg/dL [facility] LABORATORY SERVICES - [place] Specimen Blood specimen (specimen) Performing Organization Address [facility] LABORATORY SERVICES CLIA # [id number] [place] [address] - [place] 100 [facility] LABORATORY SERVICES CLIA # [id number] [place] [address] - [place] [facility] * ACETAMINOPHEN LEVEL (09/03/2011 6:11 PM CDT) ACETAMINOPHEN 11 10 - 30 ug/mL [facility] LAB[facility]ORY SERVICES - [place] Specimen Blood specimen (specimen) Performing Organization Address [facility] LABORATORY SERVICES CLIA # [id number] [place] [address] - [place] [address] [facility] LABORATORY SERVICES CLIA # [id number] [place], [place] [address] - [place] [facility] * SALICYLATE LEVEL (09/03/2011 6:11 PM CDT) SALICYLATE <4.0 3.0 - 20.0 mg/dL [facility] LABORATORY SERVICES - [place] Specimen Blood specimen (specimen) Performing Organization Address [facility] LABORATORY SERVICES CLIA # [id number] [place] [address] - [place] 100 [facility] LABORATORY SERVICES CLIA # [id number] NANCY Duarte 6 [address] - [place] 2817 [facility] * ETHANOL LEVEL (09/03/2011 6:11 PM CDT) ETHANOL <5.00 mg/dL [facility] LABORATORY SERVICES - [place] ETHANOL % <0.01 <=0.01 %w/v [facility] LABORATORY SERVICES - [place] Specimen Blood specimen (specimen) Performing Organization Address City/State/[facility] Ph one Number [facility] LABORATORY SERVICES CLIA # [id number] [place] [address] - [place] 100 [facility] LABORATORY [facility] CLIA # [id number] NANCY Duarte 6 [address] - [place] 2817 [facility] * COMPREHENSIVE METABOLIC PANEL (09/03/2011 6:11 PM CDT) SODIUM 127 (L) 136 - 145 mmol/L [facility] LABORATORY SERVICES - [place] POTASSIUM 3.5 3.5 - 5.1 mmol/L [facility] LABORATORY SERVICES - [place] CHLORIDE 90 (L) 98 - 111 mmol/L [facility] LABORATORY SERVICES - [place] CO2 31 22 - 31 mmol/L [facility] LABORATORY SERVICES - [place] CALCIUM 9.1 8.3 - 10.3 mg/dL [facility] LABORATORY SERVICES - [place] BUN 16 7 - 21 mg/dL [facility] LABORATORY SERVICES - [place] CREATININE 1.08 (H) 0.44 - 1.00 mg/dL [facility] LABORATORY SERVICES - [place] GLUCOSE 184 (H) 70 - 105 mg/dL [facility] LABORATORY SERVICES - [place] TOTAL PROTEIN 7.8 5.8 - 8.2 g/dL [facility] LABORATORY SERVICES - [place] ALBUMIN 4.1 3.5 - 5.0 g/dL [facility] LABORATORY SERVICES - [place] BILIRUBIN TOTAL 0.7 0.2 - 1.3 mg/dL [facility] LABORATORY SERVICES - [place] ALKALINE 107 38 - 126 U/L [facility] PHOSPHATASE LABORATORY SERVICES - [place] AST 66 (H) 15 - 46 U/L [facility] LABORATORY SERVICES - [place] ALT 58 11 - 66 U/L [facility] LABORATORY SERVICES - [place] GFR 54 (L) >=60 mL/min/1.73 sq [facility] LAB[facility] - [place] GFR, 66 >=60 mL/min/1.73 sq [facility] LABORATORY SERVICES - [place] Specimen Blood specimen (specimen) Narrative Performed At eGFR has not been validated for use in the elderly (> 70 years of age), [facility] LABORATORY women, patients with serious co-morbid conditions, or persons with extremes of SERVICES - [place] body size or muscle mass and should als o be interpreted with caution in patients with acute kidney failure, dialysis dep endant patients, patients reporting exceptional dietary intake (e.g. vegeta brandon diet, high protein diets, creatine supplementation), and patients with sev ere liver disease. Based on National Kidney Disease Educat ion Program Performing Organization Address City/State/[facility] Ph one Number [facility] LABORATORY SERVICES CLIA # [id number] NANCY Duarte [address] - [place] 100 [facility] LABORATORY SERVICES CLIA # [id number] NANCY Duarte 6 [address] - [place] 2817 [facility] documented in this encounter Visit Diagnoses Diagnosis Depression Depressive disorder, not elsewhere clas sified Acute pain due to trauma Altered mental status Chronic pain syndrome CO2 narcosis Other dyspnea and respiratory abnormali ty documented in this encounter Administered Medications Action Date Dose Rate Site Medication Order MAR Action 09/05/2011 8:31 AM CDT 150 mg buPROPion XL 24 hour (WELLBUTRIN-XL) Given tablet 150 mg 150 mg, Oral, DAILY, First dose on 09/04/11 at 1415, Until Discontinued, Routine 150 mg Given 09/04/2011 3:28 PM CDT 09/05/2011 8:31 AM CDT 5,000 Units Cholecalciferol (Vitamin D3) tablet Tab Given 5,000 Units 5,000 Units, Oral, EVERY 7 DAYS, First dose on 09/04/11 at 0230, Until Discontinued, Routine, Previous Med: Cholecalciferol, Vitamin D3, 5,000 unit Oral Cap - Orig Sig - Take 5,000 Units by mouth every 7 days., 09/05/2011 8:31 AM CDT 20 mg citalopram (CELEXA) tablet 20 mg Given 20 mg, Oral, DAILY, First dose on 09/04/11 at 0900, Until Discontinued, Routine 20 mg Given 09/04/2011 8:00 AM CDT 09/05/2011 8:31 AM CDT 75 mg clopidogrel (PLAVIX) tablet 75 mg Given 75 mg, Oral, DAILY, First dose on Tue09/03/11 at 2300, Until Discontinued, Routine 75 mg Given 09/04/2011 8:00 AM CDT 75 mg Given 09/04/2011 2:32 AM CDT 09/04/2011 9:36 PM CDT 5 mg diazepam (VALIUM) tablet 5 mg Given 5 mg, Oral, ONE TIME ONLY, 1 dose, 09/04/11 at 2130, Stat 09/05/2011 8:31 AM CDT 100 mg docusate sodium (COLACE) capsule 100 mg Given 100 mg, Oral, TWO TIMES DAILY, First dose on Tue09/03/11 at 2300, Until Discontinued, Routine, Previous Med: docusate sodium (COLACE) 100 mg Oral capsule - Orig Sig - Take 1 Cap by mout h 2 times daily. , 100 mg Given 09/04/2011 8:10 PM CDT 100 mg Given 09/04/2011 8:00 AM CDT 09/05/2011 8:31 AM CDT 160 mg fenofibrate tablet 160 mg Given 160 mg, Oral, DAILY, First dose on Tue09/03/11 at 2315, Until Discontinued, Routine 160 mg Given 09/04/2011 8:00 AM CDT 160 mg Given 09/04/2011 2:31 AM CDT 09/04/2011 2:40 AM CDT 25 mcg fentanyl (SUBLIMAZE) 50 mcg/mL injection Given 50 mcg 50 mcg, IV, EVERY 1 HOUR PRN, 2 doses, Starting Tue09/03/11 at 1835, Until 09/04/11 at 0240, Pain, Break-Through, Routine 50 mcg Given 09/03/2011 7:04 PM CDT 09/05/2011 5:17 AM CDT 300 Units heparin, porcine (pf) 100 unit/mL Given injection 300 Units 300 Units (3 mL), IV, EVERY 12 HOURS PRN, Starting 09/04/11 at 1703, Unti l 09/05/11 at 1549, Other (See Comment), Infusaport flush, Routine 300 Units Given 09/04/2011 6:40 PM CDT 09/04/2011 8:31 PM CDT 20 Units Arm, Rig ht Upper insulin glargine (LANTUS) 100 unit/mL Given injection 20 Units 20 Units, subCUT, DAILY AT BEDTIME, First dose on 09/04/11 at 2100, Unti l Discontinued, Routine, Give only if pt is eating., 09/05/2011 5:17 AM CDT 75 mcg levothyroxine (SYNTHROID) tablet 75 mcg Given 75 mcg, Oral, DAILY EARLY, First dose o n 09/04/11 at 0600, Until Discontinued , Routine, Previous Med: levothyroxine (SYNTHROID) 75 mcg Oral tablet - Orig Sig - 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 , 75 mcg Given 09/04/2011 6:31 AM CDT 09/05/2011 9:56 AM CDT 1 Patch Abdomen, Left Upper Quadrant lidocaine (LIDODERM) 5 % topical patch 1 Given Patch 1 Patch, Topical, DAILY, First dose on 09/04/11 at 1415, Until Discontinued , Routine 1 Patch Chest, Left Given 09/04/2011 3:28 PM CDT 09/05/2011 8:31 AM CDT 10 mg lisinopril (PRINIVIL) tablet 10 mg Given 10 mg, Oral, DAILY, First dose on 09/04/11 at 0900, Until Discontinued, Routine, Previous Med: lisinopril (PRINIVIL) 10 mg Oral tablet - Orig Sig - Take 10 mg by mouth daily. , 10 mg Given 09/04/2011 8:00 AM CDT 09/05/2011 8:31 AM CDT 1 mg morphine 2 mg/mL injection 1 mg Given 1 mg, IV, EVERY 4 HOURS PRN, Starting 09/04/11 at 1405, Until 09/05/11 at 1549, Pain, Routine 1 mg Given 09/05/2011 5:12 AM CDT 1 mg Given 09/05/2011 1:51 AM CDT 09/05/2011 9:49 AM CDT 1 mg morphine 2 mg/mL injection 1 mg Given 1 mg, IV, ONE TIME ONLY, 1 dose, 09/05/11 at 0930, Routine 09/05/2011 5:14 AM CDT 30 mg morphine SR (MS CONTIN) tablet 30 mg Given 30 mg, Oral, EVERY 8 HOURS, First dose on 09/04/11 at 1730, Until Discontinued, Routine 30 mg Given 09/04/2011 6:40 PM CDT 09/05/2011 8:30 AM CDT 1 Patch Arm, Rig ht Upper nicotine (NICODERM CQ) 21 mg/24 hr Given transdermal patch 1 Patch 1 Patch, Transdermal, DAILY, First dose on 09/04/11 at 1415, Until Discontinued, Routine 1 Patch Arm, Left Upper Given 09/04/2011 3:27 PM CDT 09/03/2011 7:04 PM CDT 4 mg ondansetron (ZOFRAN) 4 mg/2 mL injection Given 4 mg 4 mg, IV, ONE TIME ONLY, 1 dose, 09/03/11 at 1845, Routine 09/04/2011 8:10 PM CDT 50 mg QUEtiapine (SEROQUEL) tablet 50 mg Given 50 mg, Oral, DAILY AT BEDTIME, First dose on 09/04/11 at 2100, Until Discontinued, Routine 09/05/2011 9:50 AM CDT 10 mL sodium chloride 0.9 % flush injection 10 Given mL 10 mL, IV, TWO TIMES DAILY, First dose on 09/04/11 at 2100, Until Discontinued, Routine 10 mL Given 09/04/2011 9:00 PM CDT 09/04/2011 6:41 PM CDT 5 mL mL/hr sodium chloride 0.9 % flush injection 5 New Bag mL 5 mL, IV, CONTINUOUS PRN, Starting 09/04/11 at 1800, Until 09/05/11 at 1549, Other (See Comment), After IV pushes, Routine 09/04/2011 2:45 AM CDT 3 mL SODIUM CHLORIDE 0.9 % SYRINGE Given 1 dose, Starting 09/04/11 at 0238, Until 09/04/11 at 0245, Mitchell OCAMPO: cabinet override, documented in this encounter
--- OUTSIDE RECORDS SUMMARY | 2019-09-01 14:03 | XMS REPORT | Encounter Summary ---
Author Author [facility], Jah Garcia, [place], [place], [facility] Organization [facility] [place], [place], [place], [facility] Address Unknown Phone Unavailable Care Team Providers Care Airplane And Engine Inspector Name Role Phone PCP Unavailable Reason for Visit * Auth/Cert Referred By Contact Referred To Contact Status Reason Specialty Diagnoses / Procedures [facility] [address] [place] [address] Closed Diagnoses C ommon bile duct dilation [576.8] P rocedures CHOLANGIOPANCREATO GRAPHY RETROGRADE ENDOSCOPIC Encounter Details Care Team Description Date Type Department Meet Busby CRNA [address] [place] [address] Amparo Garduno MD NO ADDRESS ON FILE 08/30/2014 Anesthesia [facility] in Event Endoscopy [address] [place] [address] Anesthesia Record Responsible Anesthesiologist Anesthesia Start Time Anesthesi a Stop Time Procedure Name Meet Busby CRNA 08/30/14 1338 08/30/14 1423 CHOLANGIOPANCREATOGRAPHY RETROGRADE ENDOSCOPIC (N/A Abdomen) Date Time Event Comment 1217 1330 AN Equip Check Anesthesia equipmen t and materials checked in accordance with local policy. 1338 An Start 1341 An Start Data 1342 Pre-Induction Immediate pre-induc tion anesthetic assessment performed. Vital signs as noted on graphic. 1344 An Induction 1346 Anesthesia Ready 1405 an jose luis now 1413 an stop data 1423 An Stop Meds Name Total propofol (DIPRIVAN) 10mg/mL injection 60 mg propofol 10 mg/mL infusion 30.36 mg midazolam (VERSED) 1mg/mL injection 2 mg ondansetron (ZOFRAN) 4mg/2 mL syringe 4 mg lidocaine (XYLOCAINE) 2% injection 60 mg esmolol (BREVIBLOC) 10mg/mL injection 20 mg glucagon human recombinant (GLUCAGEN) 1 0.5 mg mg solution for injection sodium chloride 0.9% infusion 150 mL * Name O2 N2O Inspired N2O O2 * No blood administrations on file. Removal Type Details Placement 09/02/17 0908 by PROVIDER, DISCHARGE PAT IENT Vascular 09/03/11; 190; No; Right:; (Groin); 09/03/11 190 by Diego Access top entry; noncoring 90 degree bend; 21 Christelle Bar RN Port gauge; 1.25 in length; 1; t olerated well; 09/02/17 (Administratively Removed); 09 (Administratively Removed) 08/30/14 1525 by Ary Vickers RN Vascular 08/30/14; 1156; Yes; Left:; (groin); 08/30/14 1156 by Rancho Access top entry; 1 in length; 1 (accesssed pe r Ary Burrell RN [place] joya rn); tolerated we ll; 08/30/14; 1525; no longer indicated; pressure dressing, direct pressure, catheter intact 09/20/17 1555 by Hillary Hwang RN [place] Type: nasal cannula; Confirmation: 1341 by brendan Busby Airway satisfactory chest rise, SAO2, end tida l Meet Child CRNA CO2 documented in this encounter Social History Date [...] of this encounter OR Notes * Anesthesia Postprocedure Evaluation - Amparo Garduno MD - 08/30/2014 2:38 PM CDT Post Anesthesia Evaluation Vitals: BP 146/87 | Pulse 87 | Temp(Src) 36.7 C (Temporal) | Resp 12 | Ht 5' 7.5" (1.715 m) | Wt 167 lb 6.4 oz (75.932 kg) | BMI 25.82 kg/m2 | SpO2 100% Pain Rating: Pain Rating: Rest: 10 (08/30/14 1428) Nausea/Vomiting: no nausea and no vomiting Post-Op hydration: well hydrated Respiratory function: no respiratory symptoms Airway patency: normal Cardiovascular function: Normal - Regular rate and rhythm Mental status, LOC: 0=alert; keenly responsive Patient participated in evaluation: yes Anesthetic complications: no Amparo Garduno MD * Anesthesia Preprocedure Evaluation - Amparo Garduno MD - 08/30/2014 12:15 PM CDT Anesthesia Evaluation Airway Mallampati: III TM distance: >3 FB Neck ROM: full Dental (+) upper dentures and lower dentures Pulmonary - normal exam breath sounds clear to auscultation (+) COPD severe, asthma, Cardiovascular (+) hypertension, (-) past AR Rhythm: regular Rate: normal Neuro/Psych (+) psychiatric history (-) CVA GI/Hepatic/Renal (+) GERD well controlled, Endo/Other (+) diabetes mellitus type 2 using insulin, hypothyroidism, Abdominal Anesthesia History No history of anesthetic complications. Anesthesia Plan ASA 3 MAC NPO status > 8 hours Anesthetic plan and risks discussed with Patient. Post-op Pain Control Plan to use IV or IM medication for post-op pain control. documented in this encounter Plan of Treatment Not on filedocumented as of this encounter Visit Diagnoses Not on filedocumented in this encounter Administered Medications Action Date Dose Rate Site Medication Order MAR Action 08/30/2014 2:04 PM CDT 10 mg esmolol (BREVIBLOC) 100 mg/10 mL Given injection INTRA-PROCEDURE PRN, Starting Tue08/30/14 at 1358, Until Tue08/30/14 at 1425, Routine, Anesthesia Intra-op 10 mg Given 08/30/2014 1:58 PM CDT 08/30/2014 2:01 PM CDT 0.5 mg glucagon human recombinant (GLUCAGEN) 1 Given mg injection INTRA-PROCEDURE PRN, Starting Tue08/30/14 at 1401, Until Tue08/30/14 at 1425, Routine, Anesthesia Intra-op 08/30/2014 1:44 PM CDT 60 mg lidocaine 2 % (XYLOCAINE) injection Given INTRA-PROCEDURE PRN, Starting Tue08/30/14 at 1344, Until Tue08/30/14 at 1425, Other (See Comment), Routine, Anesthesia Intra-op 08/30/2014 1:42 PM CDT 2 mg midazolam (VERSED) injection Given INTRA-PROCEDURE PRN, Starting Tue08/30/14 at 1342, Until Tue08/30/14 at 1425, Routine, Anesthesia Intra-op 08/30/2014 2:13 PM CDT 4 mg ondansetron (ZOFRAN) 4 mg/2 mL syringe Given INTRA-PROCEDURE PRN, Starting Tue08/30/14 at 1413, Until Tue08/30/14 at 1425, Nausea/Emesis, Routine, Anesthesi a Intra-op 08/30/2014 1:55 PM CDT 40 mcg/kg/min 18.22 mL/hr propofol (DIPRIVAN) 10 mg/mL continuous Rate Change infusion INTRA-PROCEDURE CONTINUOUS PRN, Startin g Tue08/30/14 at 1347, Until Tue08/30/14 at 1425, Anesthesia Intra-op 25 mcg/kg/min 11.39 mL/hr New Bag 08/30/2014 1:47 PM CDT 08/30/2014 1:50 PM CDT 20 mg propofol (DIPRIVAN) injection Given IV, INTRA-PROCEDURE PRN, Starting Tue08/30/14 at 1345, Until Tue08/30/14 at 1425, Anesthesia Intra-op 20 mg Given 08/30/2014 1:48 PM CDT 20 mg Given 08/30/2014 1:45 PM CDT documented in this encounter
--- OUTSIDE RECORDS SUMMARY | 2019-09-01 14:03 | XMS REPORT | Encounter Summary ---
Author Author [facility], Jah Garcia, [place], [place], [place] [facility] Organization [facility] Jah Garcia, [place], [place], [place] Address Unknown Phone Unavailable Care Team Providers Care Fiberglass Luggage Molder Name Role Phone PCP Unavailable Reason for Visit * Auth/Cert Referred By Contact Referred To Contact Status Reason Specialty Diagnoses / Procedures [facility] [address] [facility] [place] [address] Closed Diagnoses C ommon bile duct dilation [576.8] P rocedures CHOLANGIOPANCREATO GRAPHY RETROGRADE ENDOSCOPIC Encounter Details Care Team Description Date Type Department Edilberto Urbina MD [address] [facility] [address] [place] [id number] 08/30/2014 [facility] in Pre Encounter Post 100 [place] [address] Social History Date Tobacco Use Types [...] tobacc o use, for help quitting call [phone] or [phone] (Core Indicators) 2. You may experience lightheadedness, [...] Colonoscopy procedure. report dictated. 08/30/2014 Job number [id number] Post operative findings 1. Previous biliary sphincterotomy. 2. Removal biliary stent. 3. Dilated CBD and intrahepatic ducts. 4. Papillary stenosis resolved EBL: None Plan Resume op orders. documented in this encounter H&P Notes * Edilberto Urbina MD - 08/30/2014 1:10 PM CDT SOPHIA HAWKINS 1965 [id number] 08/30/2014 No primary provider on file. Endoscopy [...] ACCESS PLACEMENT performed by APOLLO PINEDA at [facility] freeing bowel adhesion,enterolysis states had "21 surgeries [...] Urbina MD - 08/30/2014 6:38 PM CDT [facility] [place] [address] NAME: SOPHIA HAWKINS CSN: [id number] : 1965 ADMISSION DATE: 08/30/2014 OPERATIVE REPORT [...] clinic in 2 weeks. Alexa Urbina MD SA/medq VOICE JOB ID: [id number] DOCUMENT ID: [id number] cc: Alexa Urbina MD * Anesthesia Handoff [...] GLUCOSE 157 (H) 70 - 105 mg/dL [facility] LABORATORY SERVICES - [place] [facility] Specimen Blood, capillary Performing Organization Address City/State/Zipcode Ph one Number [facility] LABORATORY SERVICES CLIA # [id number] N[place]Y Duarte [address] - [place] 100 [facility] LABORATORY SERVICES CLIA # [id number] NANCY Duarte [address] - [place] 100 [facility] documented in this encounter Visit Diagnoses Not [...] at 1425, Until Tue08/30/14 at 1428, Ryan OMNICELL: cabinet override, 08/30/2014 12:29 PM CDT 5 mg MORPHINE 4 MG/ML INTRAVENOUS CARTRIDGE Given 1 dose, Starting Tue08/30/14 at 1223, Until Tue08/30/14 at 1229, Olimpiahmsangeetha OMNICELL: cabinet override, 08/30/2014 12:29 PM CDT 4 mg [...] 1133, Until Tue08/30/14 at 1520, Mala OMNICELL: cabinet override, 08/30/2014 11:59 AM CDT 30 mL/hr 30 mL/hr sodium chloride 0.9% infusion New Bag IV, at 30 mL/hr, CONTINUOUS, Starting Tue08/30/14 at 1130, Until Tue08/30/14 at 1730, Routine, Pre-Procedure documented in this encounter
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
--- OUTSIDE RECORDS SUMMARY | 2019-09-01 14:04 | XMS REPORT | Encounter Summary ---
Author Author [facility] [place], [place], [facility] [place] Organization [facility] [place], [place], [facility] [place] Address Unknown Phone Unavailable Care Team Providers Care Perishable Freight Inspector Name Role Phone PCP Unavailable Encounter Details Care Team Description Date Type Department Provider, Abstract Spg 05/21/2011 Abstract [facility] Rosamaria in Abstraction Social History Date Tobacco Use Types Packs/Day [...]
--- OUTSIDE RECORDS SUMMARY | 2019-09-01 14:04 | XMS REPORT | Encounter Summary ---
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 Phone PCP Unavailable Reason for Visit * Auth/Cert Referred By Contact Referred To Contact Status Reason Specialty Diagnoses / Procedures [facility] [address] [place] [phone] Closed Diagnoses poor venous access P rocedures CATHETER VENOUS ACCESS PLACEMENT Encounter Details Care Team Description Date Type Department Eder Pineda MD [address] [place] [address] CATHETER VENOUS ACCESS PLACEMENT 10/08/2010 Surgery [facility] in Operating Room [address] [place] [id number] Social History Date Tobacco Use Types [...] Signs Reading Time Taken Comments Vital Sign 111/87 10/08/2010 4:00 PM CDT Blood Pressure 68 10/08/2010 4:00 PM CDT Pulse 36.3 C (97.3 F) 10/08/2010 2:53 PM CDT Temperature 16 10/08/2010 4:00 PM CDT Respiratory Rate 93% 10/08/2010 4:00 PM CDT Oxygen Saturation - - Inhaled Oxygen Concentration 72.6 kg (160 lb) 10/08/2010 8:27 AM CDT Weight 170.2 cm (5' 7") 10/08/2010 8:27 AM CDT Height 25.06 10/08/2010 8:27 AM CDT Body Mass Index documented in this encounter Discharge Instructions * Instructions* Chelsea Ryan RN - 10/08/2010 PRESCRIPTIONS Prescriptions given? Yes SIGNS AND SYMPTOMS TO REPORT Contact your health care provider if you experience any of the following symptom s: increase in pain, increase in redness, swelling, or warmth of incision site or persistent bleeding or drainage. ACTIVITY Your activity level is: may shower, no smoking and no tub baths. If you smoke you are advised to quit. Ask your health care provider for advice if you need a ssistance to stop smoking. Avoid second-hand smoke exposure and do not let peop le smoke in your home. Follow-up care is a murrell part of your treatment and safety. Be sure to make/go to all appointments. DIET Your diet is: regular WOUND CARE For your wound/incision: keep wound clean and dry, allow steri-strips to fall o ff and may shower in 48 hours Patient Discharge Instruction Record Anesthesia/Sedation discharge within 24 hours Teaching Content ? Medicare Important Message letter signed (date/time): I. ?Your diet will be: Start with clear liquids (soda, tea, broth, Jell-O, gonzález le or cranberry juice, soup). If no nausea, progress to soft foods such as milk , yogurt, and mashed foods. Increase fluids, fruits, vegetables and fiber to av oid constipation than can be caused by pain medication. You should be able to r esume your normal diet after 24 hours. II. Dietary Restrictions: Avoid highly spiced or greasy foods. III. ?The following activities are encouraged (or any other special instructions ): 1. Apply ice to operative site as directed ?N/A or 2. You may feel sleepy today and nap on and off, especially if taking pain medic ation. 3. Rest at home today and gradually increase activity. 4. When you change position, move slowly to minimize any dizziness, nausea or vo miting. 5. Have a responsible person with you the first few times you get up as you may need assistance walking, etc. 6. Nausea and vomiting occasionally occur after surgery. If nauseated, keep on clear liquids until passes and rest or sleep on your side to avoid accidentally inhaling. If it persists, notify the surgeon/physician. 7. Follow these instructions for smoking cessation: ?Stop all tobacco use, for help quitting call [phone] ? Core Me asure ?Activity limitations 1. Avoid stress to any suture lines such as pulling, pushing, or lifting. 2. Do not drink alcoholic beverages including beer or wine for 24 hours. 3. Do not drive a motor vehicle, operate machinery or power tools for [address] you home. 4. If a child, no bicycle riding, skateboarding or use of gym sets, etc. 5. Do not make important decisions or sign important papers for 24 hours 6. We recommend that you do not stay alone as you may experience light-headednes s, dizziness and sleepiness following anesthesia/sedation. A responsible adult should be with you for the first 24 hour period. 7. Avoid sneezing or blowing nose. 8. Keep water out of ears. IV. ?Follow-up Care: Telephone your doctor after your discharge for follow-up care. Bring all medications in original container and medication list with you t o your follow up doctors appointments: Follow any written or verbal instructions your surgeon/physician may have given you. V. Call your doctor for any of the followin. Excessive or persistent pain, swelling, bleeding, foul odor or temperature gr eater than 101 degrees F. 2. Change of color, coldness, numbness or tingling or increased pain in affected extremity. 3. Difficulty breathing 4. Persistent nausea and vomiting. 5. Increasing levels of unresponsiveness or unconsciousness 6. Any other problems regarding the specific surgery/procedure 7. If you feel there is not a normal recovery taking place. If unable to reach your surgeon/physician, go to the nearest Emergency Departmen t, or call 911 in acute emergency. . documented in this encounter Medications at Time of Discharge Start Date End Date Medication Sig Dispensed Refills docusate sodium (COLACE) Take 1 Cap by 0 100 mg Oral capsule mouth 2 times daily. ALBUTEROL INHALATION 0 09/28/2010 10/08/2010 amoxicillin-clavulanate Take 1 Tab by 20 Tab 0 (AUGMENTIN) 875-125 mg mouth every Oral tablet 12 hours for 10 days. 12/26/2016 fenofibrate Take 145 mg 0 nanocrystallized (TRICOR) by mouth 145 mg Oral tablet daily at bedtime. 09/18/2010 09/05/2011 methocarbamol (ROBAXIN) Take 1 Tab by 60 Tab 0 750 mg Oral tablet mouth 3 times daily. 09/18/2010 09/05/2011 dexamethasone (DECADRON) Take 1 Tab by 20 Tab 0 4 mg Oral tablet mouth 3 times daily. 1 tid x 3 d-> 1bid x 3d-> 1 qd 12/26/2016 trimethoprim-sulfamethoxa Take 1 Tab by 0 [...] Oral tablet documented as of this encounter H&P Notes * Eder Pineda MD - 10/15/2010 9:24 AM CDT History and Physical Subjective: Patient is a 45 y.o. female scheduled for Procedure(s): CATHETER VENOUS ACCESS PLACEMENT. Indications for procedure are revision of old infusaport that is need for blood draw/infusion. The port can flush but not with draw. It was placed over a year ago in the femoral position. Pt has sig central venous stenosis. Patient Active Problem List Diagnoses Date Noted Acute bronchitis [466.0] 07/24/2010 Chronic airway obstruction, not elsewhere classified [496] 07/24/2010 Past Medical History Diagnosis Date Thromboembolism Lupus Bowel obstruction Asthma HTN (hypertension) CRI (chronic renal insufficiency) Pulmonary embolism june 2010 COPD (chronic obstructive pulmonary disease) Past Surgical History Procedure Date Hx appendectomy Hx hysterectomy Hx cholecystectomy Hx knee surgery Pr insert tunneled cv cath with port 10/08/2010 CATHETER VENOUS ACCESS PLACEMENT performed by EDER PINEDA at [facility] No prescriptions prior to admission Allergies Allergen Reactions Imitrex (Sumatriptan Succinate) Unknown Heparin (Bovine) Unknown Aspirin Unknown Codeine Unknown Compazine (Prochlorperazine Edisylate) Unknown Inapsine (Droperidol) Unknown Minal-30 Unknown Reglan (Metoclopramide) Anaphylaxis Toradol (Ketorolac) Unknown History Substance Use Topics Smoking status: Current Everyday Smoker -- 0.5 packs/day for 20 years Types: Cigarettes Smokeless tobacco: Not on file Alcohol Use: No Family History Problem Relation Age of Onset Cancer Father Review of Systems Cardiovascular: negative. Gastrointestinal: negative. Genitourinary:negative. Respiratory: negative. Objective: Empty flowsheet group. Lungs: clear to auscultation bilaterally, normal respiratory effort Heart: regular rate and rhythm, S1, S2 normal, no murmur, click, rub or gallop Abdomen: Soft, non-tender. Bowel sounds normal. No masses, no organomegaly. Extremities: extremities normal, atraumatic, no cyanosis or edema, moves all ext remities equally, no edema, redness or tenderness in the calves or thighs, remedios l strength, normal tone Assessment: Multiple medical problems-see above Non functioning infusaport Chronic upper body venous stenosis-central Plan: Scheduled for surgery, risk and benefits discussed with patient. Will replace fe moral infusaport. Unable to place upper body port due to central venous stenosis . The procedure, risk, benefits, and alternatives, including not limited to deat h, bleeding, infection, mi,port failure were discussed at length. All questions were answered. The patient and family understand and agree to proceed. documented in this encounter Procedure Notes * Sgf Scanning, [facility] - 10/11/2010 9:41 AM CDT Associated Order(s): EKG 12-LEAD; EKG 12-LEAD documented in this encounter OR Notes * OR Anesthesia - Aimee Ulloa MD - 11/03/2010 9:09 AM CDT No apparent anesthetic complications. * OR Anesthesia - Sgf Scanning, [facility] - 10/11/2010 11:20 AM CDT * Operative Report - Eder Pineda MD - 10/08/2010 2:52 PM CDT Mediport Placement Operative Note Sophia Hawkins 45 y.o. female CSN : [id number] PCP: No primary provider on file. Pre-operative Diagnosis: cri, lupus, chronic pain, htn, asthma, bowel obstructio n, hyperlipidemia Post-operative Diagnosis: Same Procedure/Anesthesia: Procedure(s) and Anesthesia Type: * CATHETER VENOUS ACCESS PLACEMENT - Monitored Anesthetic Care Right femoral Mediport Removal and replacement on right anterior abdominal wall . Flouroscopy with supervision and interpretation. Surgeons/Assistants: Surgeon(s) and Role: * Eder Pineda MD - Primary Anesthesia: mac/localSpecimens Removed: old infusaport Estimated Blood Loss: Minimal ml Complications: none PROCEDURE IN DETAIL: Informed consent was obtained and the patient taken to health system operating room, placed on the table in supine position. He was given intrave nous sedation. The chest was prepared with Betadine solution draped in a steri le fashion. A mixture of 1% lidocaine was used for local anesthesia. skin in cision at previous port on anterior abdominal wall was made. The port was dissec raphael with cautery. Hemostasis was achieved. The old port was removed with cathete r as one entire unit. The right femoral vein area was cannulated percutaneously under fluoroscopic guidance. A J wire was advanced into the superior vena cava . A limited skin incision was then made around the entry site with a #11 scalp el blade. By both sharp and blunt dissection a pocket for the MediPort was fas hioned on anterior abdominal wall at old site. Hemostasis was obtained with t he Bovie cautery. The dilator and peel-away introducer were then advanced over t he wire into the central circulation. The MediPort catheter was trimmed to the appropriate length. The wire and dilator were removed and the MediPort cathet er was advanced to the peel-away introducer which was subsequently removed. The catheter was tunneled from the femoral vein insertion site to the pocket subcuta neously. The MediPort was attched and flushed and aspirated without difficulty. It was placed in the pocket and sutured in position with a 3-0 Vicryl suture. The wound was irrigated by irrigating with antibiotic solution and closed in layers with absorbable suture. The MediPort was reassessed percutaneously and 1.2 ml of heparin 1,000 units per ml was inserted into the MediPort. Post proc edure flouroscopy revealed showed a gentle flowing catheter in excellent positio n. The patient was taken to the recovery room in stable condition. Eder Pineda MD Cardiac Thoracic & Vascular Surgery 10/08/2010, 2:52 PM * Operative Report - Eder Pineda MD - 10/08/2010 2:46 PM CDT Brief Postoperative Note Sophia Hawkins 45 y.o. female CSN : [id number] PCP: No primary provider on file. Pre-operative Diagnosis: chronic pain, lupus, cri, htn, hyperlipidemia, asthma, bowel obstruction Post-operative Diagnosis: Same Procedure/Anesthesia: Procedure(s) and Anesthesia Type: Removal and replacement of right femoral infusaport with flouroscopy and super vision and interpretation CATHETER VENOUS ACCESS PLACEMENT - Monitored Anesthetic Care/local Surgeons/Assistants: Surgeon(s) and Role: * Eder Pineda MD - Primary Anesthesia: mac/local Specimens Removed: infusaport Estimated Blood Loss: Minimal ml Complications: none Procedure in detail dictated (Job # done) Eder Pineda MD Cardiac Thoracic & Vascular Surgery 10/08/2010, 2:46 PM * [place]aca-OP - Sarah Varner RN - 10/08/2010 2:21 PM CDT 1% Lidocaine to back table for [address] Pineda 6,000 units Heparin in 60 ml IV Normal Saline to back table * OR Anesthesia - Aimee Ulloa MD - 10/08/2010 10:00 AM CDT Subjective: 10/08/2010 , the patient was interviewed in the Pre-Op. Patient is a 45 y.o. fem alvina scheduled for Procedure(s): CATHETER VENOUS ACCESS PLACEMENT. Medical record [id number]. Patient Active Problem List Diagnoses Date Noted Acute bronchitis [466.0] 07/24/2010 Chronic airway obstruction, not elsewhere classified [496] 07/24/2010 Past Medical History Diagnosis Date Thromboembolism Lupus Bowel obstruction Asthma HTN (hypertension) CRI (chronic renal insufficiency) Pulmonary embolism june 2010 COPD (chronic obstructive pulmonary disease) Past Surgical History Procedure Date Hx appendectomy Hx hysterectomy Hx cholecystectomy Hx knee surgery History Social History Marital Status: Spouse Name: N/A Number of Children: N/A Years of Education: N/A Social History Main Topics Smoking status: Current Everyday Smoker -- 0.5 packs/day for 20 years Types: Cigarettes Smokeless tobacco: Not on file Alcohol Use: No Drug Use: No Sexually Active: Other Topics Concern Not on file Social History Narrative No narrative on file No current facility-administered medications on file prior to encounter. Current outpatient prescriptions ordered prior to encounter Medication Sig Dispense Refill fenofibrate nanocrystallized (TRICOR) 145 mg Oral tablet Take 145 mg by mout h daily. predniSONE (DELTASONE) 10 mg Oral tablet Take 10 mg by mouth daily. levalbuterol (XOPENEX) 1.25 mg/0.5 mL Inhalation Nebu Take 1.25 mg by inhala tion one time only. morphine SR (MS CONTIN) 30 mg Oral tablet Take 1 Tab by mouth 3 times daily. ergocalciferol (VITAMIN D) 50,000 unit Oral capsule Take 1 Cap by mouth ever y 7 days. fondaparinux (ARIXTRA) 7.5 mg/0.6 mL subCUT Syrg Inject 7.5 mg by subcutaneo us injection daily. amLODIPine (NORVASC) 5 mg Oral tablet Take 1 Tab by mouth daily. docusate sodium (COLACE) 100 mg Oral capsule Take 1 Cap by mouth 2 times agustín ly. cyclobenzaprine (FLEXERIL) 10 mg Oral tablet Take 1 Tab by mouth every 6 filiberto rs as needed. promethazine (PHENERGAN) 25 mg Oral tablet Take by mouth every 6 hours as n eeded. 25 to 50 mg ondansetron (ZOFRAN) 8 mg Oral Tab Take 1 Tab by mouth every 8 hours as need ed. ALBUTEROL INHALATION levothyroxine (SYNTHROID) 100 mcg Oral tablet clopidogrel (PLAVIX) 75 mg Oral Tab escitalopram (LEXAPRO) 20 mg Oral tablet amoxicillin-clavulanate (AUGMENTIN) 875-125 mg Oral tablet Take 1 Tab by sania th every 12 hours for 10 days. 20 Tab None methocarbamol (ROBAXIN) 750 mg Oral tablet Take 1 Tab by mouth 3 times daily . 60 Tab 0 dexamethasone (DECADRON) 4 mg Oral tablet Take 1 Tab by mouth 3 times daily. 1 tid x 3 d-> 1bid x 3d-> 1 qd 20 Tab None trimethoprim-sulfamethoxazole (BACTRIM DS) 800-160 mg Oral tablet Take 1 Tab by mouth 2 times daily. HYDROcodone-acetaminophen (NORCO) 5-325 mg Oral tablet Take 1 Tab by mouth e very 4 hours as needed for Pain. 12 Tab None Current facility-administered medications:lactated ringers solution, , IV, Pre-P jada Continuous, Eder Pineda MD; midazolam (VERSED) injection 2 mg, 2 mg, IV, Pre-Proc Once, Aimee Ulloa MD; famotidine (PEPCID) tablet 20 mg, 20 mg, Ora l, Pre-Proc Once, Aimee Ulloa MD; ondansetron (ZOFRAN) 4 mg/2 mL injection 4 mg, 4 mg, IV, q 6 hour PRN, Aimee Ulloa MD fentaNYL PF (SUBLIMAZE) 50 mcg/mL injection 25 mcg, 25 mcg, IV, q 15 min PRN, Mario Ulloa MD; lactated ringers solution, , IV, Post-Proc Continuous, Aimee Ulloa MD; fentaNYL PF (SUBLIMAZE) 50 mcg/mL injection 25 mcg, 25 mcg, IV, Pos t-Proc q 15 min, Aimee Ulloa MD; ondansetron (ZOFRAN) 4 mg/2 mL injection 4 mg, 4 mg, IV, Post-Proc q 5 min PRN, Aimee Ulloa MD Allergies Allergen Reactions Imitrex (Sumatriptan Succinate) Unknown Heparin (Bovine) Unknown Aspirin Unknown Codeine Unknown Compazine (Prochlorperazine Edisylate) Unknown Inapsine (Droperidol) Unknown Minal-30 Unknown Reglan (Metoclopramide) Anaphylaxis Toradol (Ketorolac) Unknown Anesthesia Concerns No anesthesia problems/complications ASA Risk ASA 2 - Patient with mild systemic disease with no functional limitations or ASA 3 - Patient with moderate systemic disease with functional limitations Lungs: clear to auscultation bilaterally, normal respiratory effort Heart: regular rate and rhythm, S1, S2 normal, no murmur, click, rub or gallop Plan: MAC Monitoring explained. Airway assessment was perfomed; a Mallampati score of II I (soft palate, base of uvula visible) was given. The risks and benefits of the proposed anesthetic have been discussed with patient. The patient/designee has agreed to monitored anesthesia with general as backup plan. Anesthesia guideli ne orders initiated. Aimee Ulloa MD documented in this encounter Miscellaneous Notes * Scanned Form - Sgf Scanning, [facility] - 10/12/2010 6:34 PM CDT * Scanned Form - Sgf Scanning, [facility] - 10/11/2010 11:20 AM CDT * Scanned Form - Sgf Scanning, [facility] - 10/11/2010 11:20 AM CDT * Scanned Form - Sgf Scanning, [facility] - 10/11/2010 11:20 AM CDT * Patient Instructions - Sgf Scanning, [facility] - 10/11/2010 11:20 AM CDT documented in this encounter Plan of Treatment Not on filedocumented as of this encounter Procedures Comments Procedure Name Priority Date/Time Associated Diag nosis IN ELECTROCARDIOGRAM, Stat 10/11/2010 COMPLETE 9:41 AM CDT XR FLUORO LESS THAN 1 Routine 10/08/2010 HOUR 2:59 PM CDT CATHETER VENOUS ACCESS 10/08/2010 poor venous ac cess PLACEMENT 1:30 PM CDT CBC WITHOUT DIFFERENTIAL Stat 10/08/2010 10:30 AM CDT HEMOGLOBIN A1C Routine 10/08/2010 Sick 10:30 AM CDT BASIC METABOLIC PANEL Stat 10/08/2010 10:30 AM CDT XR CHEST PA OR AP 1 VW Stat 10/08/2010 10:11 AM CDT documented in this encounter Results * EKG 12-LEAD (10/11/2010 9:41 AM CDT) Narrative Performed At This result has an attachment that is n ot available. Transcriptions 10/11/2010 9:41 AM CDT * XR FLUORO LESS THAN 1 HOUR (10/08/2010 2:59 PM CDT) Specimen Narrative Performed At Order information only. Exam was auto -finalized. Procedure Note 10/08/2010 2:59 PM CDT Order information only. Exam was auto-finalized. * HEMOGLOBIN A1C (10/08/2010 10:30 AM CDT) HEMOGLOBIN A1C 6.0 4.0 - 6.3 % [facility] EST. AVG 126 mg/dL [facility] GLUCOSE, A1C [facility] Specimen Blood specimen (specimen) Performing Organization Address City/State/[facility] Ph one [facility] CLIA # [id number] [place] [address] - [place] [address] [facility] CLIA # [id number] [place], [place] [id number] [place] [address] * BASIC METABOLIC PANEL (10/08/2010 10:30 AM CDT) SODIUM 136 136 - 145 mmol/L [facility] POTASSIUM 3.8 3.5 - 5.1 mmol/L [facility] CHLORIDE 99 98 - 111 mmol/L [facility] CO2 30 22 - 31 mmol/L [facility] CALCIUM 9.0 8.3 - 10.3 mg/dL [facility] BUN 22 (H) 7 - 21 mg/dL [facility] CREATININE 0.79 0.44 - 1.00 mg/dL [facility] GLUCOSE 119 (H) 70 - 105 mg/dL [facility] GFR 78 >=60 mL/min/1.73 sq [facility] GFR, 95 >=60 mL/min/1.73 sq [facility] Specimen Blood specimen (specimen) Performing Organization Address [facility] Ph one Joe [facility] CLIA # [id number] [place] [address] - [place] [address] [facility] CLIA # [id number] [place] [address] * CBC WITHOUT DIFFERENTIAL (10/08/2010 10:30 AM CDT) WBC 7.6 4.0 - 11.0 K/uL [facility] RBC 3.88 (L) 4.20 - 5.40 M/uL [facility] HEMOGLOBIN 13.3 12.5 - 16.0 g/dL [facility] HEMATOCRIT 39.3 37.0 - 47.0 % [facility] MCV 101.3 (H) 78.0 - 100.0 fL [facility] MCH 34.3 (H) 27.0 - 34.0 pg [facility] MCHC 33.8 31.0 - 37.0 % [facility] PLATELETS 178 150 - 450 K/uL [facility] MPV 10.1 9.3 - 12.4 fL [facility] RDW 13.1 12.0 - 15.0 % [facility] RDW-STDEV 48 37.1 - 48.7 % [facility] Specimen Blood specimen (specimen) Performing Organization Address City/[facility] Ph one Number [facility] CLIA # [id number] [place] [address] - [place] [address] [facility] CLIA # [id number] [place] [address] * XR CHEST PA OR AP (10/08/2010 10:11 AM CDT) Specimen Narrative Performed At History: Preoperative. INTERFACE SYSTEM One view chest: Comparison 06/11/2010. No evidence of pneumonia, acute congestive failure, pleural effusion, o r atelectasis. Stable blunting of the right lateral costophrenic sulcu s likely due to scarring. Postsurgical changes at the base of the right neck unchanged. Conclusion: No evidence of acute cardio pulmonary disease with no interval change. Procedure Note [facility] Incoming Radiology Results - 10/08/2010 10:59 AM CDT History: Preoperative. One view chest: Comparison 06/11/2010. No evidence of pneumonia, acute congestive failure, pleural effusion, or atelectasis. Stable blunting of the right lateral costophrenic sulcus likely due to scarring. Postsurgical changes at the base of the right neck unchanged. Conclusion: No evidence of acute cardiopulmonary disease with no interval change. Performing Organization Address [facility] Ph one Number INTERFACE SYSTEM INTERFACE SYSTEM Refer to clinic/hospital department documented in this encounter Visit Diagnoses Not on filedocumented in this encounter Administered Medications Action Date Dose Rate Site Medication Order MAR Action 10/08/2010 10:45 AM CDT 20 mg famotidine PF (PEPCID) 20 mg/2 mL Given injection 20 mg 20 mg, IV, TWO TIMES DAILY, First dose on María Elena 10/08/10 at 1045, Until Discontinued, Routine FENTANYL (PF) 50 MCG/ML INJECTION 1 dose, Starting María Elena 10/08/10 at 1123, Until María Elena 10/08/10 at 1130, Head OMNICELL: Cabinet Override, 10/08/2010 3:56 PM CDT 25 mcg fentaNYL PF (SUBLIMAZE) 50 mcg/mL Given injection 25 mcg 25 mcg, IV, EVERY 15 MINUTES PRN, Starting María Elena 10/08/10 at 0958, Until María Elena 10/08/10 at 1840, Pain, Routine 25 mcg Given 10/08/2010 3:38 PM CDT 25 mcg Given 10/08/2010 3:29 PM CDT 10/08/2010 11:30 AM CDT 25 mcg fentaNYL PF (SUBLIMAZE) 50 mcg/mL Given injection 25 mcg 25 mcg, IV, POST-PROCEDURE Q 15 MINUTES , First dose on María Elena 10/08/10 at 1000, Unti l Discontinued, Routine 10/08/2010 3:48 PM CDT 125 mL/hr lactated ringers solution New Bag IV, at 125 mL/hr, POST-PROCEDURE CONTINUOUS, Starting María Elena 10/08/10 at 1000, Until María Elena 10/08/10 at 1840, Routin e 10/08/2010 10:44 AM CDT 2 mg midazolam (VERSED) injection 2 mg Given 2 mg, IV, PRE-PROCEDURE ONCE, 1 dose, Starting María Elena 10/08/10 at 0955, Until María Elena 10/08/10 at 1044, Routine 10/08/2010 3:00 PM CDT 4 mg ondansetron (ZOFRAN) 4 mg/2 mL injection Given 4 mg 4 mg, IV, POST-PROCEDURE Q 5 MINUTES PRN, 2 doses, Starting María Elena 10/08/10 at 0959, Until María Elena 10/08/10 at 1840, Nausea/Emesis, Routine documented in this encounter
--- OUTSIDE RECORDS SUMMARY | 2019-09-01 14:04 | XMS REPORT | Encounter Summary ---
Author Author [facility] Jah Garcia, [place], [place], [facility] Organization [facility], Jah Garcia, [place], [place], [place] Norma Address Unknown Phone Unavailable Care Team Providers Care Director Community Organization Name Role Phone PCP Unavailable Reason for Visit * Reason Comments Breathing Problem Complains of shortness of b reath assoc with pain with deep inspiration x 30 min Encounter Details Care Team Description Date [place] [address] [place] [address] [place] [phone] 09/27/2010 Emergency [facility] in - Emergency Services 09/28/2010 [address] [place] [id number] Social History Date Tobacco Use Types Packs/Day [...] Signs Reading Time Taken Comments Vital Sign 121/63 09/28/2010 3:10 AM CDT Blood Pressure 61 09/28/2010 3:10 AM CDT Pulse 36.4 C (97.6 F) 09/27/2010 11:28 PM CDT Temperature 18 09/28/2010 3:10 AM CDT Respiratory Rate 97% 09/28/2010 3:10 AM CDT Oxygen Saturation - - Inhaled Oxygen Concentration 68 kg (150 lb) 09/27/2010 11:28 PM CDT Weight 170.2 cm (5' 7") 09/27/2010 11:28 PM CDT Height 23.49 09/27/2010 11:28 PM CDT Body Mass Index documented in this encounter Medications at Time [...] Oral tablet documented as of this encounter Procedure Notes * Sgf Scanning, Him - 10/01/2010 10:44 AM CDT Associated Order(s): EKG 12-LEAD; EKG 12-LEAD documented in this encounter ED Notes * Sgf Scanning, [facility] - 09/30/2010 8:20 AM CDT * Adrian Ch RN - 09/28/2010 3:35 AM CDT Patient discharged to home viawheelchair with spouse. Patient states feeling be tter. Discharge information and education provided to patient. Questions answe red, understanding of discharge instruction verbalized. Printed copy given. * Adrian Ch RN - 09/28/2010 3:16 AM CDT Pt states pain down to a 4. Pt states it doesn't hurt to take a deep breath now . * Basil Martinez RN - 09/28/2010 2:54 AM CDT Patient complains of discomfort at the iv site with zithromax infusing. Infusio n stopped to notify physician * Adrian Ch RN - 09/28/2010 2:31 AM CDT Pt states pain down to a 7. Pt seems less anxious. * Adrian Ch RN - 09/28/2010 1:04 AM CDT Pt back from CT. Pt in bed, on monitor. * Adrian Ch RN - 09/28/2010 12:37 AM CDT Pt to CT, consent signed. * Jonathan Razo MD - 09/28/2010 12:12 AM CDT HISTORY OF PRESENT ILLNESS Sophia Hawkins, a 45 y.o. female presents to the ED with a Chief Complaint of B reathing Problem Patient is a 45 y.o. female presenting with difficulty breathing. The history is provided by the patient (history of recurrent pulmonary embolism. Has failed i vc filter and intolorrance to coumadin). Breathing Problem This is a recurrent problem. The problem occurs intermittently.The problem has b een gradually worsening. Associated symptoms include wheezing and chest pain. Pe rtinent negatives include no fever, no vomiting and no rash. She has tried inhal ed steroids for the symptoms. She has had prior hospitalizations. She has had pr ior ED visits. Risk factor(s) for DVT/PE include hisotry of PE or DVT REVIEW OF SYSTEMS Review of Systems Constitutional: Negative for fever and chills. Respiratory: Positive for shortness of breath and wheezing. Cardiovascular: Positive for chest pain. Gastrointestinal: Negative for nausea and vomiting. Skin: Negative for rash. Neurological: Positive for dizziness. PAST MEDICAL HISTORY REVIEWED Past Medical History Diagnosis Date Thromboembolism Lupus Bowel obstruction Asthma HTN (hypertension) CRI (chronic renal insufficiency) Pulmonary embolism june 2010 COPD (chronic obstructive pulmonary disease) Past Surgical History Procedure Date Hx appendectomy Hx hysterectomy Hx cholecystectomy Hx knee surgery Family History Problem Relation Age of Onset Cancer Father History Social History Main Topics Smoking status: Current Everyday Smoker -- 0.5 packs/day for 20 years Types: Cigarettes Smokeless tobacco: Not on file Alcohol Use: No Drug Use: No Sexually Active: ALLERGIES Imitrex, Heparin (bovine), Aspirin, Codeine, Compazine, Inapsine, Minal-30, Gail n and Toradol HOME MEDICATIONS Patient's Home Medications [...] this Encounter PHYSICAL EXAM Initial Vitals BP 09/27/10 2328 156/88 mmHg Pulse 09/27/10 2328 84 Resp 09/27/10 2328 22 Temp 09/27/10 2328 97.6 F (36.4 C) Temp src 09/27/10 2328 Oral SpO2 09/27/10 2328 100 % Physical Exam Constitutional: She is oriented to person, place, and time. She appears well-dev eloped and well-nourished. HENT: Head: Normocephalic and atraumatic. Mouth/Throat: Oropharynx is clear and moist. Eyes: Pupils are equal, round, and reactive to light. Neck: Neck supple. Cardiovascular: Regular rhythm and normal heart sounds. Pulmonary/Chest: Breath sounds normal. Abdominal: Soft. No tenderness. She has no rebound. Musculoskeletal: Normal range of motion. She exhibits no edema. Neurological: She is alert and oriented to person, place, and time. Skin: Skin is warm and dry. Psychiatric: She has a normal mood and affect. Coding DIAGNOSTICS LAB: Results for orders placed during the hospital encounter of 09/27/10 (from the [facility] 24 hour(s)) CBC WITH DIFFERENTIAL Component Value Range WBC 11.7 (*) 4.0-11.0 (K/uL) RBC 4.03 (*) 4.20-5.40 (M/uL) HEMOGLOBIN 13.5 12.5-16.0 (g/dL) HEMATOCRIT 39.4 37.0-47.0 (%) MCV 97.8 78.0-100.0 (fL) MCH 33.5 27.0-34.0 (pg) MCHC 34.3 31.0-37.0 (%) RDW 13.1 12.0-15.0 (%) RDW-STDEV 46.1 37.1-48.7 (%) PLATELETS 225 150-450 (K/uL) MPV 10.1 9.3-12.4 (fL) NEUTROPHILS 66 31-76 (%) LYMPHOCYTES 28 24-44 (%) MONOCYTES 5 2-11 (%) EOSINOPHILS 0 0-6 (%) BASOPHILS 0 0-2 (%) NEUTROPHIL ABSOLUTE 7.74 (*) 1.80-7.70 (K/uL) LYMPHOCYTE ABSOLUTE 3.28 1.00-4.80 (K/uL) MONOCYTE ABSOLUTE 0.57 0.10-1.30 (K/uL) EOSINOPHIL ABSOLUTE 0.04 0.00-0.70 (K/uL) BASOPHILS ABSOLUTE 0.03 0.00-0.20 (K/uL) IMMATURE GRANULOCYTES 1 <=2 (%) IMMATURE GRANULOCYTES ABSOLUTE 0.10 <=8.00 (K/uL) COMPREHENSIVE METABOLIC PANEL Component Value Range SODIUM 135 (*) 136-145 (mmol/L) POTASSIUM 3.7 3.5-5.1 (mmol/L) CHLORIDE 102 98-111 (mmol/L) CO2 25 22-31 (mmol/L) CALCIUM 9.4 8.3-10.3 (mg/dL) BUN 21 7-21 (mg/dL) CREATININE 0.83 0.44-1.00 (mg/dL) GLUCOSE 139 (*) 70-105 (mg/dL) TOTAL PROTEIN 6.7 5.8-8.2 (g/dL) ALBUMIN 4.1 3.5-5.0 (g/dL) BILIRUBIN TOTAL 0.2 0.2-1.3 (mg/dL) ALKALINE PHOSPHATASE 66 38-126 (U/L) AST 16 15-46 (U/L) ALT 12 11-66 (U/L) GFR 74 >=60 (mL/min/1.73 sq meter) GFR, 90 >=60 (mL/min/1.73 sq meter) RADIOLOGY: CTA CHEST W WO CONTRAST (Results Pending) EKG: PROCEDURES MEDICAL DECISION MAKING AND PLAN OF CARE Last vitals BP 165/84 | Pulse 75 | Temp(Src) 97.6 F (36.4 C) (Oral) | Resp 20 | Ht 5' 7" (1.702 m) | Wt 68.04 kg | BMI 23.49 kg/m2 | SpO2 96% CLINICAL IMPRESSION Encounter Diagnoses Code Name Primary? 486F Pneumonia CASE DISCUSSED PATIENT COUNSELING Diagnostics reviewed and questions answered. Diagnosis, treatment options and p ricky of care discussed with understanding verbalized. DISPOSITION, EDUCATION AND MEDICATION RECONCILIATION Medications reconciled. See after visit summary for patient education on discha rged patients. * Aimee Garcia RN - 09/27/2010 11:37 PM CDT Simple O2 mask removed at triage due to empty tank. SaO2 100% upon arrival. SaO2 97% after 5 min on room air * Aimee Garcia RN - 09/27/2010 11:34 PM CDT Presents with simple mask on but O2 bottle empty. States uses home O2 24/7 "whe n I'm like this". Anxious * Adrian Ch RN - 09/27/2010 11:34 PM CDT Pt co CP and SOB started about a half hour ago. Pt states it feels like she has a blood clot in her lungs, pt states she has had them before. Pt breath sounds diminished all lobes. Pt 93% on rm air. Pt placed on 2l NC, Pt on monitor. * Aimee Garcia RN - 09/27/2010 11:26 PM CDT Complains of shortness of breath x 30 min. Assoc with pain in chest with attemp t to take a deep breath. Hx of pulmonary emboli - last one in June. No fever or chills. Cough present - nonproductive. documented in this encounter Miscellaneous Notes * Scanned Form - Sgf Scanning, [facility] - 09/30/2010 8:20 AM CDT * Scanned Form - Sgf Scanning, [facility] - 09/30/2010 8:20 AM CDT * Scanned Form - Sgf Scanning, [facility] - 09/30/2010 8:20 AM CDT documented in this encounter Plan of Treatment Not on filedocumented as of this encounter Procedures Comments Procedure Name Priority Date/Time Associated Diag nosis [place] ELECTROCARDIOGRAM, Stat 10/01/2010 COMPLETE 10:44 AM CDT CTA CHEST W WO CONTRAST Stat 09/28/2010 1:09 AM CDT CBC WITH DIFFERENTIAL Stat 09/28/2010 12:05 AM CDT COMPREHENSIVE METABOLIC Stat 09/28/2010 PANEL 12:05 AM CDT documented in this encounter Results * EKG 12-LEAD (10/01/2010 10:44 AM CDT) Narrative Performed At This result has an attachment that is n ot available. Transcriptions 10/01/2010 10:44 AM CDT * CTA CHEST W WO CONTRAST (09/28/2010 1:09 AM CDT) Specimen Impressions Performed At Impression: INTERFACE SYSTEM 1. No evidence for pulmonary embolus. 2. Minimal groundglass opacities right upper lung and lingular segment left upper lung likely related to atele ctasis or small focal infiltrates. Correlate. Minimal ple ural thickening right posterior lower hemithorax. Preliminary report given by [facility]. A 39 Narrative Performed At History: Shortness of Breath rule out pulmonary e mbolus. INTERFACE SYSTEM Comparison: None. Technique: CT angiogram chest was perfo rmed following timed intravenous injection of contrast. Thin slice axial images and reformatted coronal images were obtaine d. Three dimensional reformatted images of the chest were al so obtained using a [employer] workstation. Findings: Pulmonary arteries: No pulmonary embolu s. No evidence for aortic aneurysm or diss ection. No mediastinal hematoma. The enhanced heart and medi astinal structures are otherwise unremarkable. Linear scarring or atelectasis right lo wer lobe. Small focal groundglass opacity lingular segment le ft upper lung likely related to atelectasis or small infiltrate. Mini mal slight groundglass opacity right upper lung as well. Otherwise, the lungs are clear. No effusions or pneumothorax. Minimal pl eural thickening right posterior hemithorax. Visualized upper abdomen: unremarkable. The superficial soft tissues are unrema rkable. the bones are grossly unremarkable. Procedure Note Interface, [facility] Sgf Incoming Radiology Results - 11/03/2010 10:25 AM CDT History: Shortness of Breath rule out pulmonary embolus. Comparison: None. Technique: CT angiogram chest was performed following timed intravenous injection of contrast. Thin slice axial images and reformatted coronal images were obtained. Three dimensional reformatted images of the chest were also obtained using a [employer] workstation. Findings: Pulmonary arteries: No pulmonary embolus. No evidence for aortic aneurysm or dissection. No mediastinal hematoma. The enhanced heart and mediastinal structures are otherwise unremarkable. Linear scarring or atelectasis right lower lobe. Small focal groundglass opacity lingular segment left upper lung likely related to atelectasis or small infiltrate. Minimal slight groundglass opacity right upper lung as well. Otherwise, the lungs are clear. No effusions or pneumothorax. Minimal pleural thickening right posterior hemithorax. Visualized upper abdomen: unremarkable. The superficial soft tissues are unremarkable. the bones are grossly unremarkable. IMPRESSION Impression: 1. No evidence for pulmonary embolus. 2. Minimal groundglass opacities right u pper lung and lingular segment left upper lung likely related to atelectasis or small focal infiltrates. Correlate. Minimal pleural thickening right posterior lower hemithorax. Preliminary report given by [facility]. A 39 Performing Organization Address [facility] [place] INTERFACE SYSTEM INTERFACE SYSTEM Refer to clinic/hospital department * COMPREHENSIVE METABOLIC PANEL (09/28/2010 12:05 AM CDT) SODIUM 135 (L) 136 - 145 mmol/L [facility] POTASSIUM 3.7 3.5 - 5.1 mmol/L [facility] CHLORIDE 102 98 - 111 mmol/L [facility] CO2 25 22 - 31 mmol/L [facility] CALCIUM 9.4 8.3 - 10.3 mg/dL [facility] BUN 21 7 - 21 mg/dL [facility] CREATININE 0.83 0.44 - 1.00 mg/dL [facility] GLUCOSE 139 (H) 70 - 105 mg/dL [facility] TOTAL PROTEIN 6.7 5.8 - 8.2 g/dL [facility] ALBUMIN 4.1 3.5 - 5.0 g/dL [facility] BILIRUBIN TOTAL 0.2 0.2 - 1.3 mg/dL [facility] ALKALINE 66 38 - 126 U/L [facility] AST 16 15 - 46 U/L [facility] ALT 12 11 - 66 U/L [facility] GFR 74 >=60 mL/min/1.73 sq [facility] GFR, 90 >=60 mL/min/1.73 sq [place] [facility] Specimen Blood specimen (specimen) Performing Organization Address City/[facility]/Zipcode Ph one Number [facility] CLIA # [id number] [place] [address] - [place] [address] [facility] CLIA # [id number] [place] [address] * CBC WITH DIFFERENTIAL (09/28/2010 12:05 AM CDT) WBC 11.7 (H) 4.0 - 11.0 K/uL [facility] RBC 4.03 (L) 4.20 - 5.40 M/uL [facility] HEMOGLOBIN 13.5 12.5 - 16.0 g/dL [facility] HEMATOCRIT 39.4 37.0 - 47.0 % [facility] MCV 97.8 78.0 - 100.0 fL [facility] MCH 33.5 27.0 - 34.0 pg [facility] MCHC 34.3 31.0 - 37.0 % [facility] RDW 13.1 12.0 - 15.0 % [facility] RDW-STDEV 46.1 37.1 - 48.7 % [facility] PLATELETS 225 150 - 450 K/uL [facility] MPV 10.1 9.3 - 12.4 fL [facility] NEUTROPHILS 66 31 - 76 % [facility] LYMPHOCYTES 28 24 - 44 % [facility] MONOCYTES 5 2 - 11 % [facility] EOSINOPHILS 0 0 - 6 % [facility] BASOPHILS 0 0 - 2 % [facility] NEUTROPHIL 7.74 (H) 1.80 - 7.70 K/uL [facility] LYMPHOCYTE 3.28 1.00 - 4.80 K/uL [facility] MONOCYTE 0.57 0.10 - 1.30 K/uL [facility] EOSINOPHIL 0.04 0.00 - 0.70 K/uL [facility] BASOPHILS 0.03 0.00 - 0.20 K/uL [facility] ABSOLUTE [facility] IMMATURE 1 <=2 % [facility] GRANULOCYTES [facility] IMMATURE 0.10 <=8.00 K/uL [facility] GRANULOCYTES [facility] Specimen Blood specimen (specimen) Performing Organization Address City/State/Zipcode Ph one Number [facility] CLIA # [id number] [place] [address] - [place] [address] [facility] CLIA # [id number] [place] [address] [place] [id number] KENAN ARANDA documented in this encounter Visit Diagnoses Diagnosis Pneumonia Pneumonia, organism unspecified Pneumonia, organism unspecified(486) Pneumonia, organism unspecified documented in this encounter Administered Medications Action Date Dose Rate Site Medication Order MAR Action 09/28/2010 2:27 AM CDT 500 mg azithromycin (ZITHROMAX) IVPB 500 mg Given 500 mg, IV, ONE TIME ONLY, 1 dose, 09/28/10 at 0145, Routine 09/28/2010 3:13 AM CDT 500 mg azithromycin (ZITHROMAX) tablet 500 mg Given 500 mg, Oral, DAILY, First dose on Tue09/28/10 at 0900, Until Discontinued, Routine AZITHROMYCIN 250 MG TAB 1 dose, Starting Tue09/28/10 at 0310, Until Tue09/28/10 at 0313, Jing OCAMPO: Cabinet Override, 09/28/2010 2:01 AM CDT 1,000 mg cefTRIAXone (ROCEPHIN) IVPB 1,000 mg Given 1,000 mg, IV, ONE TIME ONLY, 1 dose, Bebeto farah 09/28/10 at 0145, Routine CEFTRIAXONE 1000 MG INFUSION SO 1 dose, Starting Tue09/28/10 at 0151, Until Tue09/28/10 at 0201, Jing OCAMPO: Cabinet Override, FENTANYL (PF) 50 MCG/ML INJECTION 1 dose, Starting Tue09/28/10 at 0102, Until Tue09/28/10 at 0107, Jing OCAMPO: Cabinet Override, 09/28/2010 1:07 AM CDT 100 mcg fentaNYL PF (SUBLIMAZE) 50 mcg/mL Given injection 100 mcg 100 mcg, IV, ONE TIME ONLY, 1 dose, Tue09/28/10 at 0045, Routine 09/28/2010 2:24 AM CDT 50 mcg fentaNYL PF (SUBLIMAZE) 50 mcg/mL Given injection 50 mcg 50 mcg, IV, ONE TIME ONLY, 1 dose, Tue09/28/10 at 0200, Routine 09/28/2010 12:59 AM CDT 80 mL iopamidol (ISOVUE 370) 76 % injection Given 100 mL 100 mL, IV, INTRA-PROCEDURE ONCE, 1 dose, Starting Tue09/28/10 at 0028, Until Tue09/28/10 at 0059, Routine 09/28/2010 1:15 AM CDT 8 mg ondansetron (ZOFRAN) 4 mg/2 mL injection Given 8 mg 8 mg, IV, ONE TIME ONLY, 1 dose, Tue09/28/10 at 0115, Routine ONDANSETRON HCL (PF) 4 MG/2 ML INJECTIO N 1 dose, Starting Tue09/28/10 at 0113, Until Tue09/28/10 at 0115, Jing OCAMPO: Cabinet Override, 09/28/2010 12:50 AM CDT 10 mL sodium chloride 0.9 % flush injection 10 Given mL 10 mL, IV, ONE TIME ONLY, 1 dose, Tue09/28/10 at 0030, Routine documented in this encounter
--- OUTSIDE RECORDS SUMMARY | 2019-09-01 14:04 | XMS REPORT | Encounter Summary ---
Author Author [facility], Jah Garcia, [place], [place], [place] Norma Organization [facility], Jah Garcia, [place], [place], [place] Address Unknown Phone Unavailable Care Team Providers Care Carver Hand Name Role Phone PCP Unavailable Reason for Visit * Reason Comments Back Pain Encounter Details Care Team Description Date Type Department 09/15/2010 Emergency [facility] in Emergency Services [address] [place] [id number] Social History Date Tobacco Use Types Packs/Day [...] Signs Reading Time Taken Comments Vital Sign 122/80 09/15/2010 8:30 PM CDT Blood Pressure 95 09/15/2010 8:30 PM CDT Pulse 36.5 C (97.7 F) 09/15/2010 8:30 PM CDT Temperature 20 09/15/2010 8:30 PM CDT Respiratory Rate 95% 09/15/2010 8:30 PM CDT Oxygen Saturation - - Inhaled Oxygen Concentration - - Weight - - Height - - Body Mass Index documented in this encounter Discharge Instructions * Instructions* Arely Murillo NP - 09/15/2010 Home rest Warm moist heat. Medications as directed Follow-up with Dr. Borja. * Attachments The following attachments cannot be sent through Care Everywhere.* BACK PAIN, EMERGENCY OR URGENT SYMPTOMS: AFTER YOUR VISIT (TELUGU) documented in this encounter Medications at Time [...] Oral tablet documented as of this encounter ED Notes * Oskar Salgado, Bacilio - 09/25/2010 10:11 AM CDT * Holly Nava, RN - 09/15/2010 11:08 PM CDT Patient discharged to home viawheelchair with spouse. Patient states feeling be tter. Discharge information and education provided to patient. Questions answe red, understanding of discharge instruction verbalized. Printed copy given. * Holly Nava RN - 09/15/2010 10:22 PM CDT Pt back from CT, requesting pain medication, practitioner notified. * Arely Murillo NP - 09/15/2010 10:03 PM CDT HISTORY OF PRESENT ILLNESS Sophia Hawkins, a 45 y.o. female presents to the ED with a Chief Complaint of B ack Pain Patient is a 45 y.o. female presenting with back pain. Back Pain REVIEW OF SYSTEMS Review of Systems Musculoskeletal: Positive for back pain. PAST MEDICAL HISTORY REVIEWED Past Medical History Diagnosis Date Thromboembolism Lupus COPD (chronic obstructive pulmonary disease) Bowel obstruction Asthma HTN (hypertension) CRI (chronic renal insufficiency) Past Surgical History Procedure Date Hx appendectomy Hx hysterectomy Hx cholecystectomy Family History Problem Relation Age of Onset Cancer Father History Social History Main Topics Smoking status: Current Everyday Smoker -- 0.5 packs/day for 20 years Types: Cigarettes Smokeless tobacco: Not on file Alcohol Use: No Drug Use: No Sexually Active: ALLERGIES Imitrex, Heparin (bovine), Aspirin, Codeine, Compazine, Inapsine, Minal-30 and Re glan HOME MEDICATIONS Patient's Home Medications New Prescriptions for this Encounter HYDROCODONE-ACETAMINOPHEN (NORCO) 5-325 MG ORAL TABLET Take 1 Tab by mouth e very 4 hours as needed for Pain. Current Home Medications ALBUTEROL INHALATION AMLODIPINE (NORVASC) 5 MG ORAL TABLET Take 1 Tab by mouth daily. CLOPIDOGREL (PLAVIX) 75 MG ORAL TAB CYCLOBENZAPRINE (FLEXERIL) 10 MG ORAL TABLET Take 1 Tab by mouth every 6 filiberto rs as needed. DOCUSATE SODIUM (COLACE) 100 MG ORAL CAPSULE Take 1 Cap by mouth 2 times agustín ly. ERGOCALCIFEROL (VITAMIN D) 50,000 UNIT ORAL CAPSULE Take 1 Cap by mouth ever y 7 days. ESCITALOPRAM (LEXAPRO) 20 MG ORAL TABLET FONDAPARINUX (ARIXTRA) 7.5 MG/0.6 ML SUBCUT SYRG Inject 7.5 mg by subcutaneo us injection daily. LEVALBUTEROL (XOPENEX) 1.25 MG/0.5 ML INHALATION NEBU Take 1.25 mg by inhala tion one time only. LEVOTHYROXINE (SYNTHROID) 100 MCG ORAL TABLET MORPHINE SR (MS CONTIN) 30 [...] this Encounter PHYSICAL EXAM Initial Vitals BP 09/15/102029 122/80 mmHg Pulse 09/15/102029 95 Resp 09/15/102029 20 Temp 09/15/102029 97.7 F (36.5 C) Temp src 09/15/102029 Oral SpO2 09/15/102029 95 % Physical Exam Coding DIAGNOSTICS LAB: RADIOLOGY: CT ABDOMEN PELVIS WO CONTRAST Radiologist Impression: Impression: 1. Punctate nonobstructing stone lower pole of the left kidney. 2. Constipation. 3. Left iliac venous stent with intraluminal calcification. 4. Status post cholecystectomy, appendectomy and hysterectomy. 5. No acute findings. Final [facility] Incoming Radiology Results Interface (09/15/102219) Impression: Impression: 1. Punctate nonobstructing stone lower pole of the left kidney. 2. Constipation. 3. Left iliac venous stent with intraluminal calcification. 4. Status post cholecystectomy, appendectomy and hysterectomy. 5. No acute findings. Narrative: CT abdomen and pelvis, unenhanced. History: Pain . Comparison: None available. Spiral images were obtained from the lower chest through the pelvis. Lower chest: No significant abnormality. Liver: Normal. Gallbladder: Status post cholecystectomy. Bile ducts: Normal intrahepatic bile ducts. Borderline dilated common bile duct. Spleen: Normal. Pancreas: Normal. Adrenal glands: Normal. Kidneys: Punctate calcification lower pole of the left kidney. Kidneys are otherwise normal. No hydronephrosis or hydroureter. Retroperitoneum: Normal. GI tract and mesentery: Status post appendectomy. Post surgical changes left abdominal small bowel and right colon. Constipation. No evidence of significant bowel obstruction. No inflammatory changes or mesenteric adenopathy. Colon contracted. Where not contracted, wall thickness is normal. Aorta/vascular: Aorta of normal caliber. Right central line and port anterior right pelvis with the catheter coursing through the femoral route and has the tip located within the distal IVC. Status post stenting of the left iliac veins extending from the proximal left common iliac vein to the left common femoral vein. There is intraluminal calcification consistent with old thrombus. Anterior pelvic wall collateral veins. Ascites: None. Abdominal wall: No significant abnormality. Skeletal: Normal for age. Miscellaneous: None. Pelvis Organs: Status post hysterectomy. No adnexal mass or cul-de-sac fluid. Bladder: Decompressed by Amin catheter. Adenopathy: None. Miscellaneous: None. Results were called to the ER at 2215 today. EKG: PROCEDURES MEDICAL DECISION MAKING AND PLAN OF CARE Last vitals BP 122/80 | Pulse 95 | Temp(Src) 97.7 F (36.5 C) (Oral) | Resp 20 | SpO2 95% CLINICAL IMPRESSION Encounter Diagnoses Code Name Primary? 724.5E Back pain CASE DISCUSSED Patient resting with eyes closed after CT scan, patient arouses easily and immed iately requested more pain medication. Discussed results with patient explainin g no kidney stone that was in a position to cause severe pain she experienced wi th bending over today. Advised patient with negative neurological exam, pain pr obably musculoskeletal in nature, will treat and have patient follow up with Dr. Borja. PATIENT COUNSELING Diagnostics reviewed and questions answered. Diagnosis, treatment options and p ricky of care discussed with understanding verbalized. DISPOSITION, EDUCATION AND MEDICATION RECONCILIATION Medications reconciled. See after visit summary for patient education on discha rged patients. * Jo Ann Quijano RN - 09/15/2010 9:40 PM CDT 2100 Patient has had to be discharged in computer and readmitted. This visit is in 2 charts. documented in this encounter Miscellaneous Notes * Scanned Form - Sgf Scanning, [facility] - 09/29/2010 7:58 PM CDT * Scanned Form - Sgf Scanning, [facility] - 09/25/2010 10:11 AM CDT documented in this encounter Plan of Treatment Not on filedocumented as of this encounter Procedures Comments Procedure Name Priority Date/Time Associated Diag nosis CT ABDOMEN PELVIS WO Stat 09/15/2010 CONTRAST 9:59 PM CDT CBC WITH DIFFERENTIAL Stat 09/15/2010 Back nataly n 8:31 PM CDT documented in this encounter Results * CT ABDOMEN PELVIS WO CONTRAST (09/15/2010 9:59 PM CDT) Specimen Addenda Addendum by Sourav Goins MD on 01/05/2012 2:52 PM Addendum: The following report was reported and signed by Dr. Goins. Impressions Performed At Impression: INTERFACE SYSTEM 1. Punctate nonobstructing stone lower pole of the left kidney. 2. Constipation. 3. Left iliac venous stent with intralu ludmila calcification. 4. Status post cholecystectomy, appende ctomy and hysterectomy. 5. No acute findings. Narrative Performed At CT abdomen and pelvis, unenhanced. INTERFACE SYSTEM History: Pain . Comparison: None available. Spiral images were obtained from the lo wer chest through the pelvis. Lower chest: No significant abnormality . Liver: Normal. Gallbladder: Status post cholecystectom y. Bile ducts: Normal intrahepatic bile du cts. Borderline dilated common bile duct. Spleen: Normal. Pancreas: Normal. Adrenal glands: Normal. Kidneys: Punctate calcification lower p ole of the left kidney. Kidneys are otherwise normal. No hydr onephrosis or hydroureter. Retroperitoneum: Normal. GI tract and mesentery: Status post goznález endectomy. Post surgical changes left abdominal small bowel and right colon. Constipation. No evidence of significant bowel obstru ction. No inflammatory changes or mesenteric adenopathy. Colon co ntracted. Where not contracted, wall thickness is normal. Aorta/vascular: Aorta of normal caliber . Right central line and port anterior right pelvis with the catheter coursing through the femoral route and has the tip located within th e distal IVC. Status post stenting of the left iliac veins extend ing from the proximal left common iliac vein to the left common fe moral vein. There is intraluminal calcification consistent w ith old thrombus. Anterior pelvic wall collateral veins. Ascites: None. Abdominal wall: No significant abnormal ity. Skeletal: Normal for age. Miscellaneous: None. Pelvis Organs: Status post hysterectomy. No adnexal mass or cul-de-sac fluid. Bladder: Decompressed by Amin catheter . Adenopathy: None. Miscellaneous: None. Results were called to the ER at 2215 t millie. Procedure Note Sourav Goins MD - 01/05/2012 2:[address] abdomen and pelvis, unenhanced. History: Pain . Comparison: None available. Spiral images were obtained from the lower chest through the pelvis. Lower chest: No significant abnormality. Liver: Normal. Gallbladder: Status post cholecystectomy. Bile ducts: Normal intrahepatic bile ducts. Borderline dilated common bile duct. Spleen: Normal. Pancreas: Normal. Adrenal glands: Normal. Kidneys: Punctate calcification lower pole of the left kidney. Kidneys are otherwise normal. No hydronephrosis or hydroureter. Retroperitoneum: Normal. GI tract and mesentery: Status post appendectomy. Post surgical changes left abdominal small bowel and right colon. Constipation. No evidence of significant bowel obstruction. No inflammatory changes or mesenteric adenopathy. Colon contracted. Where not contracted, wall thickness is normal. Aorta/vascular: Aorta of normal caliber. Right central line and port anterior right pelvis with the catheter coursing through the femoral route and has the tip located within the distal IVC. Status post stenting of the left iliac veins extending from the proximal left common iliac vein to the left common femoral vein. There is intraluminal calcification consistent with old thrombus. Anterior pelvic wall collateral veins. Ascites: None. Abdominal wall: No significant abnormality. Skeletal: Normal for age. Miscellaneous: None. Pelvis Organs: Status post hysterectomy. No adnexal mass or cul-de-sac fluid. Bladder: Decompressed by Amin catheter. Adenopathy: None. Miscellaneous: None. Results were called to the ER at 2215 today. IMPRESSION Impression: 1. Punctate nonobstructing stone lower p ole of the left kidney. 2. Constipation. 3. Left iliac venous stent with intralum inal calcification. 4. Status post cholecystectomy, appendec valeria and hysterectomy. 5. No acute findings. Performing Organization Address City/State/Zipcode Ph one Number INTERFACE SYSTEM INTERFACE SYSTEM Refer to clinic/hospital department * CBC WITH DIFFERENTIAL (09/15/2010 8:31 PM CDT) WBC 7.2 4.0 - 11.0 K/uL [facility] RBC 3.65 (L) 4.20 - 5.40 M/uL [facility] HEMOGLOBIN 12.4 (L) 12.5 - 16.0 g/dL [facility] HEMATOCRIT 36.3 (L) 37.0 - 47.0 % [facility] MCV 99.5 78.0 - 100.0 fL [facility] MCH 34.0 27.0 - 34.0 pg [facility] MCHC 34.2 31.0 - 37.0 % [facility] RDW 12.7 12.0 - 15.0 % [facility] PLATELETS 214 150 - 450 K/uL [facility] MPV 8.2 (L) 9.3 - 12.4 fL [facility] NEUTROPHILS 76Comment: This parameter 31 - 76 % [facility] includes Neutrophils, REGIONAL Eosinophils, and Basophils. [facility] LYMPHOCYTES 20 (L) 24 - 44 % [facility] MONOCYTES 5 2 - 11 % [facility] EOSINOPHILS 0 0 - 6 % [facility] BASOPHILS 0 0 - 2 % [facility] NEUTROPHIL 5.40Comment: This parameter 1.80 - 7.70 K/uL [facility] ABSOLUTE includes Neutrophils, REGIONAL Eosinophils, and Basophils. [facility] LYMPHOCYTE 1.40 1.00 - 4.80 K/uL [facility] MONOCYTE 0.30 0.10 - 1.30 K/uL [facility] EOSINOPHIL 0.00 0.00 - 0.70 K/uL [facility] BASOPHILS 0.00 0.00 - 0.20 K/uL [facility] Specimen Blood specimen (specimen) Narrative Performed At Performed by: [facility] [address] [place] [address] CLIA#[id number] Performing Organization Address City/State/Zipcode Ph one Number [facility] CLIA # [id number] [place] [address] [place] [address] CLIA # [id number] [place] [address] [place] [address] KENAN ARANDA documented in this encounter Visit Diagnoses Diagnosis Back pain Backache, unspecified Backache, unspecified documented in this encounter Administered Medications Action Date Dose Rate Site Medication Order MAR Action 09/15/2010 9:15 PM CDT 1 mg hydromorPHONE (DILAUDID) 1 mg/mL Given injection 1 mg 1 mg, IV, ONE TIME ONLY, 1 dose, 09/15/10 at 2115, Routine 09/15/2010 11:02 PM CDT 1 mg hydromorPHONE (DILAUDID) 1 mg/mL Given injection 1 mg 1 mg, IV, ONE TIME ONLY, 1 dose, 09/15/10 at 2245, Routine HYDROMORPHONE 1 MG/ML INJECTION SO 1 dose, Starting 09/15/10 at 2109, Until 09/15/10 at 2115, Macie OCAMPO: Cabinet Override, documented in this encounter"
--- OUTSIDE RECORDS SUMMARY | 2019-09-01 14:04 | XMS REPORT | Encounter Summary ---
Author Author [facility], Jah Garcia, [place], [place], [place] Norma Organization [facility], Jah Garcia, [place], [place], [place] Norma Address Unknown Phone Unavailable Care Team Providers Care Door Technician Name Role Phone PCP Unavailable Reason for Visit * Auth/Cert Referred By Contact Referred To Contact Status Reason Specialty Diagnoses / Procedures [facility] Operating [facility] [address] [facility] [place] [address] Closed Diagnoses poor venous access P rocedures CATHETER VENOUS ACCESS PLACEMENT Encounter Details Care Team Description Date Type Department Eder Pineda MD [address] [place] [address] 10/08/2010 [facility] Outpatient Alberto rgery Encounter [place] [address] [place] [address] Social History Date Tobacco Use Types [...] all tobacco use, for help quitting call [phone] ? Core Me asure ?Activity limitations 1. [...] ACCESS PLACEMENT performed by EDER PINEDA at [facility] No prescriptions prior to admission Allergies Allergen [...] this encounter Procedure Notes * Sgf Scanning, [facility] - 10/11/2010 9:41 AM CDT Associated Order(s): EKG 12-LEAD; EKG 12-LEAD documented in this encounter OR Notes * OR Anesthesia - Aimee Ulloa MD - 11/03/2010 9:09 AM CDT No apparent anesthetic complications. * OR Anesthesia - Sgf Scanning, [facility] - 10/11/2010 11:20 AM CDT * Operative Report - Eder Pineda MD - 10/08/2010 2:52 PM CDT Mediport Placement Operative Note Sophia Hawkins 45 y.o. female CSN : [id number] PCP: No primary provider on file. Pre-operative [...] was obtained and the patient taken to [facility] operating room, placed on the table in [...] Sophia Hawkins 45 y.o. female CSN : [id number] PCP: No primary provider on file. Pre-operative [...] Procedure(s): CATHETER VENOUS ACCESS PLACEMENT. Medical record [id number]. Patient Active Problem List Diagnoses Date Noted [...] Notes * Scanned Form - Sgf Scanning, [facility] - 10/12/2010 6:34 PM CDT * Scanned Form - Sgf Scanning, [facility] - 10/11/2010 11:20 AM CDT * Scanned Form - Sgf Scanning, [facility] - 10/11/2010 11:20 AM CDT * Scanned Form - Sgf Scanning, [facility] - 10/11/2010 11:20 AM CDT * Patient Instructions - Sgf Scanning, [facility] - 10/11/2010 11:20 AM CDT documented in this encounter Plan of Treatment Not on filedocumented as of this encounter Procedures Comments Procedure Name Priority Date/Time Associated Diag nosis [place] ELECTROCARDIOGRAM, Stat 10/11/2010 COMPLETE 9:41 AM CDT [...] HEMOGLOBIN A1C 6.0 4.0 - 6.3 % [facility] EST. AVG 126 mg/dL [facility] GLUCOSE, A1C [facility] Specimen Blood specimen (specimen) Performing Organization Address City/State/[facility] Ph one Number [facility] CLIA # [id number] [place] [address] - JOIN [address] [facility] CLIA # [id number] [place] [address] * BASIC METABOLIC PANEL (10/08/2010 10:30 AM CDT) SODIUM 136 136 - 145 mmol/L [facility] POTASSIUM 3.8 3.5 - 5.1 mmol/L [facility] CHLORIDE 99 98 - 111 mmol/L [facility] CO2 30 22 - 31 mmol/L [facility] CALCIUM 9.0 8.3 - 10.3 mg/dL [facility] BUN 22 (H) 7 - 21 mg/dL [facility] CREATININE 0.79 0.44 - 1.00 mg/dL [facility] GLUCOSE 119 (H) 70 - 105 mg/dL [facility] GFR 78 >=60 mL/min/1.73 sq [facility] GFR, 95 >=60 mL/min/1.73 sq [facility] Specimen Blood specimen (specimen) Performing Organization Address City/[facility]/Zipcode Ph one [facility] CLIA # [id number] [place] [address] - JOIN [address] [facility] CLIA # [id number] [place] [address] * CBC WITHOUT DIFFERENTIAL (10/08/2010 10:30 AM CDT) WBC 7.6 4.0 - 11.0 K/uL [facility] RBC 3.88 (L) 4.20 - 5.40 M/uL [facility] HEMOGLOBIN 13.3 12.5 - 16.0 g/dL [facility] HEMATOCRIT 39.3 37.0 - 47.0 % [facility] MCV 101.3 (H) 78.0 - 100.0 fL [facility] MCH 34.3 (H) 27.0 - 34.0 pg [facility] MCHC 33.8 31.0 - 37.0 % [facility] PLATELETS 178 150 - 450 K/uL [facility] MPV 10.1 9.3 - 12.4 fL [facility] RDW 13.1 12.0 - 15.0 % [facility] RDW-STDEV 48 37.1 - 48.7 % [facility] Specimen Blood specimen (specimen) Performing Organization Address City/State/[facility] Ph one Number [facility] CLIA # [id number] [place] [address] [place] [address] [facility] CLIA # [id number] [place] [address] * XR CHEST PA OR AP [...] with no interval change. Procedure Note Melanie [facility] Incoming Radiology Results - 10/08/2010 10:59 AM CDT History: Preoperative. One view chest: Comparison 06/11/2010. No evidence of pneumonia, acute congestive failure, pleural effusion, or atelectasis. Stable blunting of the right lateral costophrenic sulcus likely due to scarring. Postsurgical changes at the base of the right neck unchanged. Conclusion: No evidence of acute cardiopulmonary disease with no interval change. Performing Organization Address [facility] Ph one Number INTERFACE SYSTEM INTERFACE SYSTEM Refer to clinic/hospital department documented in this encounter Visit Diagnoses Diagnosis Sick Other unknown and unspecified cause of morbidity or mortality documented in this encounter Administered Medications Action [...] María Elena 10/08/10 at 1130, Head OMNICELL: Neymart Override, 10/08/2010 3:56 PM CDT 25 mcg [...]
--- OUTSIDE RECORDS SUMMARY | 2019-09-01 14:04 | XMS REPORT | Encounter Summary ---
Author Author [facility], [place], [place], [place], [place] [facility] Organization [facility] [place], [place], [facility] Address Unknown Phone Unavailable Care Team Providers Care Digital Strategist Senior Manager Name Role Phone PCP Unavailable Encounter Details Care Team Description Date Type Department Chuyita Briscoe MD [address] [facility] [place] [id number] 11/18/2010 [facility] Pulmonology-Medical Bldg [address] [facility] [address] Social History Date Tobacco Use Types Packs/Day [...]
--- OUTSIDE RECORDS SUMMARY | 2019-09-01 14:04 | XMS REPORT | Encounter Summary ---
Author Author [facility], [place], [place], [place], [place] Organization [facility], [place], [place], [place], [place] Address Unknown Phone Unavailable Care Team Providers Care Senior Data Modeler Name Role Phone PCP Unavailable Reason for Visit * Reason Comments Back Pain Encounter Details Care Team Description Date Type Department Ken Ren MD [address] [place], [place] [id number] 09/18/2010 Emergency [facility] in Emergency Services [address] [place] [id number] Social History Date Tobacco Use Types Packs/Day [...] Signs Reading Time Taken Comments Vital Sign 128/76 09/18/2010 5:00 PM CDT Blood Pressure 86 09/18/2010 5:00 PM CDT Pulse 37.4 C (99.3 F) 09/18/2010 1:55 PM CDT Temperature 18 09/18/2010 5:00 PM CDT Respiratory Rate 98% 09/18/2010 5:00 PM CDT Oxygen Saturation - - Inhaled Oxygen Concentration - - Weight - - Height - - Body Mass Index documented in this encounter Discharge Instructions * Instructions* Ken Ren MD - 09/18/2010 Back Pain (Lumbo-Sacral Strain) You have been seen by a caregiver for back pain. Back pain is common and second only to headaches as a cause of pain. If you have previously had x-rays, your pr ovider will determine if bony injury may be the cause of your pain. Your spinal column (backbone) is made up of 24 main vertebral bodies in addition to the sacrum and coccyx. These are held together by tough fibrous tissue called ligaments, and also by the support of your muscles. Nerve roots pass through the openings between the vertebrae. A sudden wrenching move or injury to the back may cause injury to, or pressure upon these nerves. This may result in localized back pain or radiation (movement) of pain into the buttocks and down the leg i nto the foot. The condition known as sciatica is frequently associated with a ru ptured (herniated) disc. Pain is also created by muscle spasm alone. TO PREVENT: Avoid an underactive life style. Active exercise, as directed by your caregiver, is your greatest weapon against back pain. Hard physical activities such as ten nis, racquetball, water skiing etc., without proper physical conditioning may ag gravate and/or create problems, especially if you are not in condition for that activity. If you have a back problem it is especially important to avoid sports requiring sudden body movements. Swimming and walking are generally safer activi ties. Maintain good posture. Avoid obesity. Use bed rest for only the most extreme, acute (sudden) episode. Prolonged bed re st over 48 hours will aggravate your condition. Ice used for acute conditions is very effective. Use a large plastic bag filled with ice and wrapped in a towel. This also provides excellent pain relief. This may be continuous or for thirty minutes every two hours during acute phase, then as needed. Heat for thirty tawanna priya prior to activities is helpful. See your caregiver for continued problems. Your caregiver can help or refer you for appropriate exercises and work hardening. Work hardening means that the back is put through the proper exercises and rehabilitation to treat the present pro blems and prevent future problems. With conditioning, most back problems can be avoided. Sometimes a more serious issue may be the cause of back pain and you sh ould be seen immediately again if new problems seem to be developing. seek immediate medical attention if: Numbness, tingling, weakness, or problem with the use of your arms or legs. Severe back pain not relieved with medications. Change in bowel or bladder control. Increasing pain in any areas of the body. Shortness of breath, dizziness or fainting. Nausea (feeling sick to your stomach), vomiting or sweats. [facility] Patient Information 2007 [employer] [facility]. Back Exercises Back exercises help treat and prevent back injuries. The goal of back exercises is to increase the strength of your abdominal muscles and the flexibility of you r back. These exercises should be started when you no longer have back pain. Ba ck exercises include: 1. Pelvic Tilt - Lie on your back with your knees bent. Tilt your pelvis until t he lower part of your back is against the floor. Hold this position 5-10 sec and repeat 5-10 times. 2. Knee to Chest - Pull first one knee up against your chest and hold for 20-30 seconds, repeat this with the other knee, and then both knees. This may be done with the other leg straight or bent, whichever feels better. 3. Sit-Ups or Curl-Ups - Bend your knees 90 degrees. Start with tilting your pel vis, and do a partial, slow sit-up, lifting your trunk only 30-45 degrees off th e floor. Take at least 2-3 sec for each sit-up. Do not do sit-ups with your knee s out straight. 4. Hip-Lift - Lie on your back with your knees flexed 90 degrees. Push down with your feet and shoulders as you raise your hips off the floor; hold for 10 sec, repeat 5-10 times. 5. Back arches - Lie on your stomach, propping yourself up on bent elbows. Slowl y press on your hands, causing an arch in your low back. Repeat 3-5 times. Any initial stiffness and discomfort should lessen with repetition over time. 6. Shoulder-Lifts - Lie face down with arms beside you body. Keep hips and tors o pressed to floor as you slowly lift your head and shoulders off the floor. Do not overdo your exercises, especially in the beginning. Exercises may cause y ou some mild back discomfort which lasts for a few minutes; however, if the pain is more severe, or lasts for more than 15 minutes, do no further exercises until you see your caregiver. Improvement with exercise therapy for back problems is slow. See your caregivers for assistance with developing a proper back exercise program. [employer] Patient Information 2007 [employer]. documented in this encounter Medications at Time of Discharge Start Date End Date Medication Sig Dispensed Refills docusate sodium (COLACE) Take 1 Cap by 0 100 mg Oral capsule mouth 2 times daily. ALBUTEROL INHALATION 0 09/18/2010 09/05/2011 methocarbamol (ROBAXIN) Take 1 Tab [...] as of this encounter ED Notes * Homer Rivera RN - 09/18/2010 5:22 PM CDT Pt d/c home in care of family * Ken Ren MD - 09/18/2010 2:50 PM CDT HISTORY OF PRESENT ILLNESS Sophia Hawkins, a 45 y.o. female presents to the ED with a Chief Complaint of B ack Pain Patient is a 45 y.o. female presenting with back pain. The history is provided b y the patient. No epoxy specialist was used. Back Pain This is a recurrent problem. The current episode started more than 1 week ago. T he problem occurs constantly. The problem has been gradually worsening. The pain is associated with twisting. The pain is present in the lumbar spine. The quali ty of the pain is described as aching and cramping. The pain does not radiate. T he pain is at a severity of 5/10. The pain is moderate. The symptoms are aggrava raphael by certain positions and bending. Associated symptoms include paresthesias. Pertinent negatives include no chest pain, no fever, no headaches, no abdominal pain, no dysuria and no weakness. She has tried analgesics for the symptoms. The treatment provided mild relief. Risk factors: Pain management. REVIEW OF SYSTEMS Review of Systems Constitutional: Negative for fever, chills and malaise/fatigue. HENT: Negative for neck pain. Eyes: Negative for double vision and photophobia. Respiratory: Negative for shortness of breath, wheezing and stridor. Cardiovascular: Negative for chest pain, palpitations, orthopnea and leg swellin g. Gastrointestinal: Negative for nausea, vomiting, abdominal pain and diarrhea. Genitourinary: Negative for dysuria and frequency. Musculoskeletal: Positive for back pain. Negative for myalgias and joint pain. Neurological: Negative for dizziness, speech change, focal weakness, weakness an d headaches. Lupus Psychiatric/Behavioral: The patient is not nervous/anxious. All other systems reviewed and are negative. PAST MEDICAL HISTORY REVIEWED Past Medical History [...] this Encounter PHYSICAL EXAM Initial Vitals BP 09/18/10 1355 134/88 mmHg Pulse 09/18/10 1355 139 Resp 09/18/10 1355 16 Temp 09/18/10 1355 99.3 F (37.4 C) Temp src 09/18/10 1355 Oral SpO2 09/18/10 1355 97 % Physical Exam Nursing note and vitals reviewed. Constitutional: She is oriented to person, place, and time. She appears well-dev eloped and well-nourished. HENT: Head: Normocephalic and atraumatic. Eyes: Pupils are equal, round, and reactive to light. Neck: Normal range of motion. Neck supple. Cardiovascular: Normal rate and regular rhythm. Pulmonary/Chest: No respiratory distress. She has no wheezes. She has no rales. Abdominal: She exhibits no distension. No tenderness. She has no rebound. Musculoskeletal: She exhibits tenderness. She exhibits no edema. L5-S1 Neurological: She is alert and oriented to person, place, and time. She has norm al reflexes. Skin: Skin is warm and dry. Psychiatric: She has a normal mood and affect. Coding DIAGNOSTICS LAB: RADIOLOGY: EKG: PROCEDURES MEDICAL DECISION MAKING AND PLAN OF CARE Last vitals BP 134/88 | Pulse 139 | Temp(Src) 99.3 F (37.4 C) (Oral) | Resp 16 | SpO2 97% CLINICAL IMPRESSION Encounter Diagnoses Code Name Primary? 724.5E Back pain 847.9E Back strain 715.90AJ DJD (degenerative joint disease) CASE DISCUSSED PATIENT COUNSELING Diagnostics reviewed and questions answered. Diagnosis, treatment options and p ricky of care discussed with understanding verbalized. DISPOSITION, EDUCATION AND MEDICATION RECONCILIATION Medications reconciled. See after visit summary for patient education on discha rged patients. documented in this encounter Miscellaneous Notes * Patient Instructions - Sgf Scanning, [facility] - 09/21/2010 3:24 PM CDT documented in this encounter Plan of Treatment Not on filedocumented as of this encounter Visit Diagnoses Diagnosis Back pain Backache, unspecified Back strain Sprain of unspecified site of back DJD (degenerative joint disease) Osteoarthrosis, unspecified whether gen eralized or localized, unspecified site documented in this encounter Administered Medications Action Date Dose Rate Site Medication Order MAR Action 09/18/2010 3:46 PM CDT 12 mg dexamethasone (DECADRON) injection 12 mg Given 12 mg, IV, ONE TIME ONLY, 1 dose, Tue09/18/10 at 1515, Stat DEXAMETHASONE 4 MG/ML INJECTION 1 dose, Starting Tue09/18/10 at 1539, Until Tue09/18/10 at 1546, Miguel OCAMPO: Robertinet Override, 09/18/2010 3:45 PM CDT mg diphenhydrAMINE (BENADRYL) injection 50 Given mg 50 mg, IV, ONE TIME ONLY, 1 dose, Tue09/18/10 at 1515, Routine DIPHENHYDRAMINE 50 MG/ML INJECTION 1 dose, Starting Tue09/18/10 at 1539, Until Tue09/18/10 at 1545, Miguel OCAMPO: Robertinet Override, 09/18/2010 3:44 PM CDT 750 mg methocarbamol (ROBAXIN) tablet 1,500 mg Given 1,500 mg, Oral, ONE TIME ONLY, 1 dose, Tue09/18/10 at 1515, Stat documented in this encounter"
--- OUTSIDE RECORDS SUMMARY | 2019-09-01 14:04 | XMS REPORT | Encounter Summary ---
Author Author [facility], [place], [facility] Organization [facility], [place], [facility] Address Unknown Phone Unavailable Care Team Providers Care Executive Office Manager Name Role Phone PCP Unavailable Encounter Details Care Team Description Date Type Department Provider, Abstract Spg 05/26/2011 Abstract [facility] [place] in [place] Social History Date Tobacco [...]
--- NOTE | 2019-09-01 14:05 | ED Lower Extremity ---
General Stated Complaint: R KNEE PAIN Source: patient Exam Limitations: no limitations History of Present Illness Date Seen by Provider: September 01, 2019 Time Seen by Provider: 14:02 Initial Comments To ER with reports of right knee pain that shoots down the right leg after a twisting mechanism earlier today. She is already on buprenorphine buccal films, morphine tablets, Lyrica. Onset: just prior to arrival Severity: moderate Pain/Injury Location: right knee Method of Injury: twisted Modifying Factors: Worse With Movement Allergies and Home Medications Allergies Coded Allergies: droperidol (Unverified Allergy, Severe, SOB, 02/22/11) ranitidine HCl (Verified Allergy, Intermediate, SOB, DIAPHORETIC, 02/22/11) Soap (Unverified Allergy, Unknown, RASH, 07/03/13) aspirin (Verified Allergy, Unknown, 07/03/13) codeine (Verified Allergy, Unknown, 07/03/13) ketorolac tromethamine (Verified Allergy, Unknown, 07/03/13) metoclopramide HCl (Unverified Allergy, Unknown, 07/03/13) povidone-iodine (Unverified Allergy, Unknown, RASH, 07/03/13) prochlorperazine edisylate (Unverified Allergy, Unknown, 07/03/13) prochlorperazine maleate (Unverified Allergy, Unknown, 07/03/13) sumatriptan (Verified Allergy, Unknown, 07/03/13) sumatriptan succinate (Verified Allergy, Unknown, 07/03/13) Home Medications Albuterol Sulfate 18 Gm Hfa.aer.ad, 2 PUFF IH Q4H PRN for WHEEZING, (Reported) Buprenorphine HCl 600 Mcg Film, 600 MCG MM Q12H, (Reported) Cyclobenzaprine HCl 10 Mg Tablet, 10 MG PO Q12H, (Reported) Doxycycline Hyclate 100 Mg Tablet, 100 MG PO BID Prescribed by: EVERETT ERNST on 10/08/18 1402 Fluticasone/Umeclidin/Vilanter 1 Each Blst.w.dev, 1 PUFF IH BID, (Reported) Fondaparinux Sodium 7.5 Mg/0.6 Ml Syringe, 7.5 MG SQ DAILY Prescribed by: WARNER KAN on 06/04/19 0821 Levothyroxine Sodium 75 Mcg Tablet, 75 MCG PO DAILY, (Reported) Morphine Sulfate 15 Mg Tablet, 15 MG PO Q12H PRN for PAIN-MILD TO MODERATE, (Reported) Omeprazole 20 Mg Capsule.dr, 20 MG PO DAILY, (Reported) Ondansetron 8 Mg Tab.rapdis, 8 MG PO Q8H PRN for NAUSEA/VOMITING, (Reported) Patient Home Medication List Home Medication List Reviewed: Yes Review of Systems Constitutional: see HPI EENTM: see HPI Respiratory: no symptoms reported Cardiovascular: no symptoms reported Genitourinary: no symptoms reported Musculoskeletal: see HPI Skin: no symptoms reported Past Xmndjcl-Ctnlyv-Nsdfpn Hx Patient Social History Type Used: Cigarettes 2nd Hand Smoke Exposure: No Recent Foreign Travel: No Contact w/Someone Who Travel: No Recent Hopitalizations: No Immunizations Up To Date Tetanus Booster (TDap): Less than 5yrs Date of Pneumonia Vaccine: Jan 16, 2014 Date of Influenza Vaccine: Jan 31, 2019 Seasonal Allergies Seasonal Allergies: No Past Medical History Surgeries: Yes (port, several bowel obstruction sx, IVC filter, bile duct stent) Abdominal, Appendectomy, Bowel Surgery, Cardiac, Coronary Stent, Eye Surgery, Gallbladder, Hysterectomy, Oophorectomy, Orthopedic, Vascular Surgery Respiratory: Yes (O2 AND trilogy machine) Asthma, Chronic Bronchitis, Pulmonary Embolism, Sleep Apnea, COPD Cardiac: Yes (MULTIPLE DVT'S IN ARMS AND LEGS, 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 Sexually Transmitted Disease: No HIV/AIDS: No Genitourinary: Yes Kidney Stones, Renal Failure Gastrointestinal: Yes Gastroesophageal Reflux, Obstructive Bowel, Pancreatitis, Gall Bladder Disease Musculoskeletal: Yes (CHRONIC GENERALIZED PAIN--NARCOTIC DEPENDENT) Arthritis, Chronic Back Pain Endocrine: Yes (diabetes prior to wt loss) Hypothyroidsim, Diabetes, Non-Insulin dep, Lupus HEENT: No Hearing Impairment: Denies Cancer: No Psychosocial: Yes Anxiety, Depression Integumentary: No Blood Disorders: Yes (DVT'S/P.E.'S ; PAD) Adverse Reaction/Blood Tranf: No Family Medical History Asthma 19 FATHER G8 SISTER Diabetes mellitus G8 SISTER Hypercholesterolemia G8 SISTER Hypertension G8 SISTER Kidney disease 19 MOTHER Myocardial infarction 19 FATHER No Family History of: AIDS Abdominal aortic aneurysm Breathitt's disease Alcoholism Alzheimer's disease Aphasia Arthritis Cancer of mouth Cardiovascular disease Cataracts Colon cancer Completed stroke Congenital disease Congenital heart disease Coronary thrombosis Cystic fibrosis Deafness or hearing loss Dementia Drug abuse Dysphasia Fibrocystic disease of breast Gastroenteritis Glaucoma Headache disorder Infertility Neoplasm Not obtainable due to adoption Osteoporosis Parkinson's disease Prostate cancer Psychosocial problem Respiratory disorder Seizure disorder Severe allergy Thyroid disease Tuberculosis Visual disorder Heart Disease, Cancer, GI Disease Physical Exam Vital Signs Vital Signs - First Documented 09/01/19 13:55 Temp 36.6 Pulse 74 Resp 14 B/P (MAP) 167/102 (123) Pulse Ox 97 O2 Delivery Room Air Capillary Refill : Height, Weight, BMI Height: 5'7.00" Weight: 155lbs. 0.0oz. 70.004827bb; 26.64 BMI Method:Stated General Appearance: WD/WN, no apparent distress Respiratory: no respiratory distress, no accessory muscle use Hips: bilateral hip non-tender, bilateral hip normal inspection, bilateral hip normal range of motion Legs: bilateral leg non-tender, bilateral leg normal inspection, bilateral leg normal range of motion Knees: right knee pain, right knee soft tissue tenderness; bilateral knee other (no palpable effusion and ecchymosis or erythema. She does have some engorged varicose veins. States that she has a known DVT in the right leg and is on Lovenox injections) Ankles: bilateral ankle non-tender, bilateral ankle normal inspection, bilateral ankle normal range of motion Feet: bilateral foot non-tender, bilateral foot normal inspection, bilateral foot normal range of motion Neurologic/Psychiatric: alert, normal mood/affect, oriented x 3 Skin: normal color, warm/dry Progress/Results/Core Measures Results/Orders My Orders Orders - PATRICE PAREDES APRN Knee, Right, 3 Views (09/01/19 13:58) Acetaminophen Tablet (Tylenol Tablet) (09/01/19 14:15) Ibuprofen Tablet (Motrin Tablet) (09/01/19 14:15) Ondansetron Oral Dissolve Tab (Zofran (09/01/19 14:15) Vital Signs/I&O 09/01/19 13:55 Temp 36.6 Pulse 74 Resp 14 B/P (MAP) 167/102 (123) Pulse Ox 97 O2 Delivery Room Air Departure Impression Primary Impression: Internal derangement of knee Qualified Codes: M23.91 - Unspecified internal derangement of right knee Additional Impression: Chronic pain Disposition: 01 HOME, SELF-CARE Condition: Stable Departure-Patient Inst. Decision time for Depature: 14:04 Referrals: HERMINIA SEGURA MD (PCP) Primary Care Physician JIM AMAYA (Family) Primary Care Physician Patient Instructions: Internal Derangement of the Knee Add. Discharge Instructions: Tylenol and ibuprofen for pain control in addition to your morphine. PATRICE PAREDES HORTICULTURAL FARMER September 01, 2019 14:05
--- OUTSIDE RECORDS SUMMARY | 2019-09-01 14:05 | XMS REPORT | Encounter Summary ---
Author Author [facility], [place], [place], [place], [place] Organization [facility], [place], [place], [place] Address Unknown Phone Unavailable Care Team Providers Care Travel Pt Name Role Phone Jose CoronaKristie DO PCP Encounter Details Care Team Description Date Type Department Sourav Goins MD [address] [facility] [address] [place] [phone] Shortness of breath (Primary Dx) 06/12/2010 Outpatient [facility] Conversion Historical [address] [place], [place] [address], [place] [address] Social History Date Tobacco Use Types Packs/Day Years Used Never Assessed Sex Assigned at Date Recorded Not on file Industry Job Start Date Occupation Not on file Not on file Not on file Travel End Travel History Travel Start No recent travel history available. documented as of this encounter Plan of Treatment Not on filedocumented as of this encounter Visit Diagnoses Diagnosis Shortness of breath - Primary documented in this encounter
--- OUTSIDE RECORDS SUMMARY | 2019-09-01 14:05 | XMS REPORT | Encounter Summary ---
Author Author [facility] Jah Garcia, [place], [place], [place] Organization [facility] Jah GarciaG[place], [place], [place] Address Unknown Phone Unavailable Care Team Providers Care Innovation Manager Name Role Phone PCP Unavailable Reason for Visit * Reason Comments Back Pain Severe back pain after bend ing over Encounter Details Care Team Description Date Type Department 09/15/2010 Emergency [facility] in Emergency Services [address] [place] [address] [place] [phone] Social History Date Tobacco Use Types Packs/Day [...] Signs Reading Time Taken Comments Vital Sign 142/76 09/15/2010 6:09 PM CDT Blood Pressure 79 09/15/2010 6:09 PM CDT Pulse 36.4 C (97.6 F) 09/15/2010 6:09 PM CDT Temperature 20 09/15/2010 6:09 PM CDT Respiratory Rate 96% 09/15/2010 6:09 PM CDT Oxygen Saturation - - Inhaled Oxygen Concentration 72.1 kg (159 lb) 09/15/2010 6:09 PM CDT Weight 170.2 cm (5' 7") 09/15/2010 6:09 PM CDT Height 24.9 09/15/2010 6:09 PM CDT Body Mass Index documented in [...] as of this encounter ED Notes * Nicolás Mariee MD - 09/29/2010 8:51 AM CDT HISTORY OF PRESENT ILLNESS Sophia Hawkins, a 45 y.o. female presents to the ED with a Chief Complaint of B ack Pain Patient is a 45 y.o. female presenting with back pain. The history is provided b y the patient. No furnace firer was used. Back Pain This is a new problem. The current episode started 3 to 5 hours ago. The problem occurs constantly. The problem has been gradually worsening. The pain is associ ated with twisting. The pain is present in the lumbar spine. The quality of the pain is described as shooting. The pain is at a severity of 4/10. The pain is mo derate. The symptoms are aggravated by bending. Pertinent negatives include no c hest pain, no fever, no weight loss, no abdominal pain and no dysuria. She has t ried nothing for the symptoms. Risk factors include obesity. REVIEW OF SYSTEMS Review of Systems Constitutional: Negative for fever and weight loss. HENT: Negative for sore throat. Eyes: Negative for blurred vision. Respiratory: Negative for cough. Cardiovascular: Negative for chest pain. Gastrointestinal: Negative for vomiting and abdominal pain. Genitourinary: Negative for dysuria. Musculoskeletal: Positive for back pain. Skin: Negative for itching. Neurological: Negative for loss of consciousness. Endo/Heme/Allergies: Negative for environmental allergies. Psychiatric/Behavioral: Negative for depression. PAST MEDICAL HISTORY REVIEWED Past [...] this Encounter PHYSICAL EXAM Initial Vitals BP 09/15/10 1809 142/76 mmHg Pulse 09/15/10 1809 79 Resp 09/15/10 1809 20 Temp 09/15/10 1809 97.6 F (36.4 C) Temp src 09/15/10 1809 Oral SpO2 09/15/10 1809 96 % Physical Exam Nursing note and vitals reviewed. Constitutional: She is oriented to person, place, and time. She appears well-dev eloped. HENT: Head: Normocephalic and atraumatic. Right Ear: External ear normal. Left Ear: External ear normal. Nose: Nose normal. Mouth/Throat: Oropharynx is clear and moist. Eyes: Conjunctivae and extraocular motions are normal. Pupils are equal, round, and reactive to light. Neck: Normal range of motion. Neck supple. Cardiovascular: Normal rate, regular rhythm, normal heart sounds and intact dist al pulses. Pulmonary/Chest: Effort normal and breath sounds normal. Abdominal: Soft. Bowel sounds are normal. Musculoskeletal: Normal range of motion. Neurological: She is alert and oriented to person, place, and time. She has norm al reflexes. Skin: Skin is warm and dry. Psychiatric: She has a normal mood and affect. MDM Coding Reviewed: nursing note and vitals DIAGNOSTICS LAB: RADIOLOGY: CT ABDOMEN PELVIS WO CONTRAST (Results Pending) EKG: PROCEDURES MEDICAL DECISION MAKING AND PLAN OF CARE Last vitals BP 142/76 | Pulse 79 | Temp(Src) 97.6 F (36.4 C) (Oral) | Resp 20 | Ht 5' 7" (1.702 m) | Wt 72.122 kg | BMI 24.90 kg/m2 | SpO2 96% CLINICAL IMPRESSION No diagnosis found. CASE DISCUSSED PATIENT COUNSELING Diagnostics reviewed and questions answered. Diagnosis, treatment options and p ricky of care discussed with understanding verbalized. DISPOSITION, EDUCATION AND MEDICATION RECONCILIATION Medications reconciled. See after visit summary for patient education on discha rged patients. Pt has non-traumatic lumbar back pain * Arely Murillo NP - 09/15/2010 6:20 PM CDT HISTORY OF PRESENT ILLNESS Sophia Hawkins, a 45 y.o. female presents to the ED with a Chief Complaint of B ack Pain Patient is a 45 y.o. female presenting with back pain. The history is provided b y the patient (C/O back pain; diagnosed with kidney stone last week, unknown if stone passed.). Back Pain This is a recurrent problem. The current episode started more than 2 days ago. T he problem occurs intermittently. The problem has been rapidly worsening. The pa in is present in the lumbar spine. The quality of the pain is described as stabb ing. Radiates to: right buttocks. The pain is at a severity of 10/10. The pain i s severe. The symptoms are aggravated by certain positions. Associated symptoms include weakness. REVIEW OF SYSTEMS Review of Systems Constitutional: Unable to walk secondary to pain HENT: Negative. Respiratory: Positive for cough and shortness of breath. Sleep apnea Cardiovascular: Positive for orthopnea. Gastrointestinal: Positive for nausea. Genitourinary: Positive for flank pain. Right Musculoskeletal: Positive for back pain. Skin: Negative. Neurological: Positive for weakness. PAST MEDICAL HISTORY REVIEWED Past Medical History [...] this Encounter PHYSICAL EXAM Initial Vitals BP 09/15/10 1809 142/76 mmHg Pulse 09/15/10 1809 79 Resp 09/15/10 1809 20 Temp 09/15/10 1809 97.6 F (36.4 C) Temp src 09/15/10 1809 Oral SpO2 09/15/10 1809 96 % Physical Exam Constitutional: She is oriented to person, place, and time. She appears well-dev eloped and well-nourished. She appears distressed. Moderate distress. Cardiovascular: Normal rate and regular rhythm. Pulmonary/Chest: Effort normal and breath sounds normal. Decrease in bases Abdominal: Tenderness is present. generalized Musculoskeletal: She exhibits tenderness. Lumbar back: She exhibits tenderness and pain. Back: Right lumbar and flank tenderness. Neurological: She is alert and oriented to person, place, and time. Skin: Skin is warm and dry. Coding DIAGNOSTICS LAB: Results for orders placed during the hospital encounter of 09/15/10 (from the [facility] 24 hour(s)) URINALYSIS Component Value Range COLOR UA Yellow CLARITY UA Clear SPECIFIC GRAVITY UA 1.005 1.005-1.050 PH UA 6.0 LEUKOCYTE ESTERASE UA Negative Negative NITRITE UA Negative Negative PROTEIN UA Negative Negative GLUCOSE UA Negative Negative KETONES UA Negative Negative UROBILINOGEN UA <2.0 <2.0 (EU/dL) BILIRUBIN UA Negative Negative BLOOD UA 1+ (*) Negative BASIC METABOLIC PANEL Component Value Range SODIUM 135 (*) 136-145 (mmol/L) POTASSIUM 4.6 3.5-5.1 (mmol/L) CHLORIDE 101 98-111 (mmol/L) CO2 25 22-31 (mmol/L) CALCIUM 10.3 8.3-10.3 (mg/dL) BUN 14 7-21 (mg/dL) CREATININE 1.00 0.44-1.00 (mg/dL) GLUCOSE 121 (*) 70-105 (mg/dL) GFR 60 >=60 (mL/min/1.73 sq meter) GFR, 72 >=60 (mL/min/1.73 sq meter) RADIOLOGY: CT ABDOMEN PELVIS WO CONTRAST (Results Pending) EKG: PROCEDURES MEDICAL DECISION MAKING AND PLAN OF CARE Last vitals BP 142/76 | Pulse 79 | Temp(Src) 97.6 F (36.4 C) (Oral) | Resp 20 | Ht 5' 7" (1.702 m) | Wt 72.122 kg | BMI 24.90 kg/m2 | SpO2 96% Very little relief with fentanyl; order given for dilaudid. CLINICAL IMPRESSION No diagnosis found. CASE DISCUSSED PATIENT COUNSELING Diagnostics reviewed and questions answered. Diagnosis, treatment options and p ircky of care discussed with understanding verbalized. DISPOSITION, EDUCATION AND MEDICATION RECONCILIATION Medications reconciled. See after visit summary for patient education on discha rged patients. * Jo Ann Quijano RN - 09/15/2010 6:11 PM CDT To room documented in this encounter Plan of Treatment Not on filedocumented as of this encounter Procedures Comments Procedure Name Priority Date/Time Associated Diag nosis BASIC METABOLIC PANEL Stat 09/15/2010 8:31 PM CDT URINALYSIS W/REFLEX Stat 09/15/2010 MICROSCOPIC 7:52 PM CDT documented in this encounter Results * BASIC METABOLIC PANEL (09/15/2010 8:31 PM CDT) SODIUM 135 (L) 136 - 145 mmol/L [facility] POTASSIUM 4.6 3.5 - 5.1 mmol/L [facility] CHLORIDE 101 98 - 111 mmol/L [facility] CO2 25 22 - 31 mmol/L [facility] CALCIUM 10.3 8.3 - 10.3 mg/dL [facility] BUN 14 7 - 21 mg/dL [facility] CREATININE 1.00 0.44 - 1.00 mg/dL [facility] GLUCOSE 121 (H) 70 - 105 mg/dL [facility] GFR 60 >=60 mL/min/1.73 sq [facility] GFR, 72 >=60 mL/min/1.73 sq [facility] Specimen Blood specimen (specimen) Narrative Performed At eGFR has not been validated for use in the elderly (> 70 years of age), [facility] women, patients with serious co-morbid conditions, or persons with extremes of [facility] body size or muscle mass and should als o be interpreted with caution in patients with acute kidney failure, dialysis dep endant patients, patients reporting exceptional dietary intake (e.g. vegeta brandon diet, high protein diets, creatine supplementation), and patients with sev ere liver disease. Performed by: [facility] [address] [place] [address] CLIA#[id number] Performing Organization Address City/State/Zipcode Ph one Number [facility] CLIA # [id number] [place] [address] - [place] [address] [facility] CLIA # [id number] [place] [address] * URINALYSIS (09/15/2010 7:52 PM CDT) COLOR UA Yellow [facility] CLARITY UA Clear [facility] SPECIFIC 1.005 1.005 - 1.050 [facility] GRAVITY [facility] PH UA 6.0 [facility] LEUKOCYTE Negative Negative [facility] ESTERASE [facility] NITRITE UA Negative Negative [facility] PROTEIN UA Negative Negative [facility] GLUCOSE UA Negative Negative [facility] KETONES UA Negative Negative [facility] UROBILINOGEN UA <2.0 <2.0 EU/dL [facility] BILIRUBIN UA Negative Negative [facility] BLOOD UA 1+ (A) Negative [facility] Specimen Urinary catheter specimen (specimen) Performing Organization Address City/State/[facility] Ph one Number [facility] CLIA # [id number] [place] [address] - [place] [address] [facility] CLIA # [id number] [place] [id number] [address] [facility] documented in this encounter Visit Diagnoses Diagnosis Dyspnea Other dyspnea and respiratory abnormali ty documented in this encounter Administered Medications Action Date Dose Rate Site Medication Order MAR Action 09/15/2010 7:30 PM CDT 50 mcg fentaNYL PF (SUBLIMAZE) 50 mcg/mL Given injection 50 mcg 50 mcg, IV, EVERY 1 HOUR PRN, Starting Tue09/15/10 at 1834, Until Tue09/15/10 at 2044, Pain, Severe, may give total o f 100mcg, Routine 09/15/2010 7:30 PM CDT 4 mg ondansetron (ZOFRAN) 4 mg/2 mL injection Given 4 mg 4 mg, IV, ONE TIME ONLY, 1 dose, Tue09/15/10 at 1845, Routine 09/15/2010 9:25 PM CDT 1,000 mL 2000 mL/hr sodium chloride 0.9% bolus solution Given 1,000 mL 1,000 mL, IV, ONE TIME ONLY, 1 dose, Tu marni 09/15/10 at 1845, at 2,000 mL/hr, Administer over 30 Minutes, Routine documented in this encounter
--- OUTSIDE RECORDS SUMMARY | 2019-09-01 14:05 | XMS REPORT | Encounter Summary ---
[facility] [place], [place], [place] [facility] Organization [facility], [place], [place] Address Unknown Phone Unavailable Care Team Providers Care Mining Speculator Name Role Phone Jose CoronaKristie DO PCP Encounter Details Care Team Description Date Type Department Sourav Damian MD [address] [place] [address] [address] [place] [phone] Other chest pain (Primary Dx) 06/15/2010 Outpatient JOPL Conversion Historical [facility] [place] [address] Social History Date Tobacco Use Types Packs/Day Years Used Never Assessed Sex Assigned at Date Recorded Not on file Industry Job Start Date Occupation Not on file Not on file Not on file Travel End Travel History Travel Start No recent travel history available. documented as of this encounter Plan of Treatment Not on filedocumented as of this encounter Visit Diagnoses Diagnosis Other chest pain - Primary documented in this encounter
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
--- OUTSIDE RECORDS SUMMARY | 2019-09-01 14:05 | XMS REPORT | Encounter Summary ---
Author Author [facility], [place], [place], [place], [place] [facility] Organization [facility], [place], [facility] Address Unknown Phone Unavailable Care Team Providers Care Ski Lift Attendant Name Role Phone Jose CoronaKristie DO PCP Encounter Details Care Team Description Date Type Department Chuckie Little, DO [address] [facility] [place] [id number] Painful respiration (Primary Dx); Personal history of tobacco use, presenting hazards to health 06/11/2010 Outpatient JOPL Conversion Historical [facility] [place] [address] Social History Date Tobacco Use Types Packs/Day Years Used Never Assessed Sex Assigned at Date Recorded Not on file Industry Job Start Date Occupation Not on file Not on file Not on file Travel End Travel History Travel Start No recent travel history available. documented as of this encounter Plan of Treatment Not on filedocumented as of this encounter Visit Diagnoses Diagnosis Painful respiration - Primary Personal history of tobacco use, presen ting hazards to health documented in this encounter
--- OUTSIDE RECORDS SUMMARY | 2019-09-01 14:05 | XMS REPORT | Encounter Summary ---
Author Author [facility], [place], [place], [place], [place] Areas Organization [facility], [place], [place], [place], [place] Address Unknown Phone Unavailable Care Team Providers Care Therapy Tech Name Role Phone Jose CoronaKristie DO PCP Encounter Details Care Team Description Date Type Department Jonathan Razo MD [address] [place] [address] Unspecified constipation (Primary Dx); Personal history of tobacco use, presenting hazards to health 05/06/2010 Outpatient JOPL Conversion Historical [facility] [place] [address] Social History Date Tobacco Use Types Packs/Day Years Used Never Assessed Sex Assigned at Date Recorded Not on file Industry Job Start Date Occupation Not on file Not on file Not on file Travel End Travel History Travel Start No recent travel history available. documented as of this encounter Plan of Treatment Not on filedocumented as of this encounter Visit Diagnoses Diagnosis Unspecified constipation - Primary Personal history of tobacco use, presen ting hazards to health documented in this encounter
--- OUTSIDE RECORDS SUMMARY | 2019-09-01 14:05 | XMS REPORT | Encounter Summary ---
Author Author [facility], [place], [place], [place] [facility] Organization [facility], [place], [place], [place], [place] Areas Address Unknown Phone Unavailable Care Team Providers Care Construction Project Coordinator Name Role Phone Chloe Jose Ciaran DO PCP Encounter Details Care Team Description Date Type Department Santoyo, Jf Bar DO Abdominal pain, unspecified site (Primar y Dx) 05/06/2010 Outpatient JOPL Conversion Historical [address] [facility] [place] [place] [address] Social History Date Tobacco Use Types Packs/Day Years Used Never Assessed Sex Assigned at Date Recorded Not on file Industry Job Start Date Occupation Not on file Not on file Not on file Travel End Travel History Travel Start No recent travel history available. documented as of this encounter Plan of Treatment Not on filedocumented as of this encounter Visit Diagnoses Diagnosis Abdominal pain, unspecified site - Prim salome documented in this encounter
--- OUTSIDE RECORDS SUMMARY | 2019-09-01 14:05 | XMS REPORT | Encounter Summary ---
Author Author [facility], [place], [place], [place], [place] Areas Organization [facility], [place], [place], [facility] Address Unknown Phone Unavailable Care Team Providers Care Dredge Pipeman Name Role Phone Jose CoronaKristie DO PCP Encounter Details Care Team Description Date Type Department Jonathan Razo MD [address] [place] [address] [place] [phone] Ed, Physician Unspecified psychosis (Primary Dx) 06/10/2010 Emergency [facility] in Emergency Services [address] [place] [address] [place] [phone] Social History Date Tobacco Use Types Packs/Day Years Used Never Assessed Sex Assigned at Date Recorded Not on file Industry Job Start Date Occupation Not on file Not on file Not on file Travel End Travel History Travel Start No recent travel history available. documented as of this encounter Plan of Treatment Not on filedocumented as of this encounter Visit Diagnoses Diagnosis Unspecified psychosis - Primary documented in this encounter
--- OUTSIDE RECORDS SUMMARY | 2019-09-01 14:05 | XMS REPORT | Encounter Summary ---
Author Author [facility], [place], [place], [place], [place] Areas Organization [facility] [place], [place], [facility] Address Unknown Phone Unavailable Care Team Providers Care Grain Buyer Name Role Phone Jose CoronaKristie DO PCP Encounter Details Care Team Description Date Type Department Jonathan Razo MD [address] [place] [address] [place] [phone] Ed, Physician Unspecified constipation (Primary Dx) 05/06/2010 Emergency [facility] in Emergency Services [address] [place] [address] [place] [phone] Social History Date Tobacco Use Types Packs/Day [...] Visit Diagnoses Diagnosis Unspecified constipation - Primary documented in this encounter
--- OUTSIDE RECORDS SUMMARY | 2019-09-01 14:05 | XMS REPORT | Encounter Summary ---
Author Author [facility], [place], [place], [place], [place] Areas Organization [facility], [place], [place], [place], [place] Areas Address Unknown Phone Unavailable Care Team Providers Care Revenue Accounting Manager Name Role Phone Jose CoronaKristie DO PCP Encounter Details Care Team Description Date Type Department Refugio Patrick MD NO ADDRESS ON FILE Other specified cardiac dysrhythmias (Pr imary Dx); Left bundle branch hemiblock 06/10/2010 Outpatient JOPL Conversion Historical [address] [place] [address] Social History Date Tobacco Use Types Packs/Day Years Used Never Assessed Sex Assigned at Date Recorded Not on file Industry Job Start Date Occupation Not on file Not on file Not on file Travel End Travel History Travel Start No recent travel history available. documented as of this encounter Plan of Treatment Not on filedocumented as of this encounter Visit Diagnoses Diagnosis Other specified cardiac dysrhythmias(42 7.89) - Primary Other specified cardiac dysrhythmias Left bundle branch hemiblock documented in this encounter
--- OUTSIDE RECORDS SUMMARY | 2019-09-01 14:05 | XMS REPORT | Encounter Summary ---
Author Author [facility] [place], [place], [place] [facility] Organization [facility] [place], [place], [place], [place] Areas Address Unknown Phone Unavailable Care Team Providers Care Director Dental Services Name Role Phone Jose CoronaKristie DO PCP Encounter Details Care Team Description Date Type Department Neil Cruz MD [address] [facility] [place] [phone] Unspecified chest pain (Primary Dx) 06/15/2010 Outpatient JOPL Conversion Historical [facility] [place] [address] Social History Date Tobacco Use Types Packs/Day Years Used Never Assessed Sex Assigned at Date Recorded Not on file Industry Job Start Date Occupation Not on file Not on file Not on file Travel End Travel History Travel Start No recent travel history available. documented as of this encounter Plan of Treatment Not on filedocumented as of this encounter Visit Diagnoses Diagnosis Chest pain, unspecified - Primary documented in this encounter
--- OUTSIDE RECORDS SUMMARY | 2019-09-01 14:05 | XMS REPORT | Encounter Summary ---
Author Author [facility] [place], [place], [place] [facility] Organization [facility] [place], [place], [place], [place] Areas Address Unknown Phone Unavailable Care Team Providers Care Parliamentary Counsel Name Role Phone Jose Corona DO PCP Encounter Details Care Team Description Date Type Department Santoyo, Jf Bar DO Unspecified chest pain (Primary Dx) 06/11/2010 Outpatient JOPL Conversion Historical [address] [place] [address] Social History Date Tobacco Use Types Packs/Day [...]
--- OUTSIDE RECORDS SUMMARY | 2019-09-01 14:05 | XMS REPORT | Encounter Summary ---
Author Author [facility] [place], [place], [place] Areas Organization [facility] [place], [place], [place], [place] Areas Address Unknown Phone Unavailable Care Team Providers Care Coach Professional Athletes Name Role Phone Jose CoronaKristie DO PCP Encounter Details Care Team Description Date Type Department Jonathan Razo MD [address] [facility] [place] [phone] Unspecified psychosis (Primary Dx); Precordial pain 06/10/2010 Outpatient JOPL Conversion Historical [facility] [place] [address] Social History Date Tobacco Use Types Packs/Day [...] Visit Diagnoses Diagnosis Unspecified psychosis - Primary Precordial pain documented in this encounter
--- OUTSIDE RECORDS SUMMARY | 2019-09-01 14:05 | XMS REPORT | Encounter Summary ---
Author Author [facility] [place], [place], [place] [facility] Organization [facility], [place], [place], [place] Areas Address Unknown Phone Unavailable Care Team Providers Care Mobile Plant Operators Name Role Phone Jose CoronaKristie DO PCP Encounter Details Care Team Description Date Type Department Sourav Damian MD [address] [place] [address] [address] [place] [phone] Other chest pain (Primary Dx) 06/15/2010 Outpatient JOPL Conversion Historical [facility] [place] [address] Social History Date Tobacco Use Types Packs/Day [...]
--- OUTSIDE RECORDS SUMMARY | 2019-09-01 14:05 | XMS REPORT | Encounter Summary ---
Author Author [facility], [place], [place], [place], [place] [facility] Organization [facility], [place], [place], [place], [facility] Address Unknown Phone Unavailable Care Team Providers Care Business Analysis Consultant Name Role Phone Jose CoronaKristie DO PCP Encounter Details Care Team Description [place] [address] [facility] [address] [place] [phone] Conversion, History Other chest pain (Primary Dx) 06/12/2010 Inpatient [facility] [facility] [address] Historical MEDICAL CARDIAC [address] [place] [phone] Social History Date Tobacco Use Types Packs/Day [...]
--- OUTSIDE RECORDS SUMMARY | 2019-09-01 14:05 | XMS REPORT | Encounter Summary ---
Author Author [facility] Jah GarciaG[place], [place], [facility] Organization [facility] Jah GarciaGerald [place], [place] Address Unknown Phone Unavailable Care Team Providers Care Land Checker Name Role Phone Jacob Borja MD PCP Encounter Details Care Team Description Date Type Department Eder Ulrich MD [address] [place] [address] 08/27/2010 [facility] er Encounter [place] [phone] Social History Date Tobacco Use Types Packs/Day Years Used Never Assessed Drinks/Week oz/Week Comments Alcohol Use No Sex Assigned at Date Recorded Not on file Industry Job Start Date Occupation Not on file Not on file Not on file Travel End Travel History Travel Start No recent travel history available. documented as of this encounter Last Filed Vital Signs Reading Time Taken Comments Vital Sign 119/75 08/27/2010 2:35 PM CDT Blood Pressure 71 08/27/2010 2:35 PM CDT Pulse 35.8 C (96.5 F) 08/27/2010 2:35 PM CDT Temperature 20 08/27/2010 2:35 PM CDT Respiratory Rate - - Oxygen Saturation - - Inhaled Oxygen Concentration - - Weight - - Height - - Body Mass Index documented in this encounter Medications at Time of Discharge Start Date End Date Medication Sig Dispensed Refills docusate sodium (COLACE) Take 1 Cap by 0 100 mg Oral capsule mouth 2 times daily. ALBUTEROL INHALATION 0 12/26/2016 ergocalciferol (VITAMIN Take 1 Cap by [...] Oral tablet documented as of this encounter Progress Notes * Teagan Gonzalez RN - 08/27/2010 2:57 PM CDT . Right port flushed per protocal and deaccessed. A little sluggish to flush. dismissed to home per own ambulation. * Teagan Gonzalez RN - 08/27/2010 2:32 PM CDT Arrived per own ambulation for treatment series of infusaport flushing. documented in this encounter Plan of Treatment Not on filedocumented as of this encounter Visit Diagnoses Not on filedocumented in this encounter Administered Medications Action Date Dose Rate Site Medication Order MAR Action 08/27/2010 2:53 PM CDT 500 Units heparin, porcine (pf) 100 unit/mL Given injection 500 Units 500 Units (5 mL), IV, SEE ADMIN INSTRUCTIONS, Starting María Elena 08/27/10 at 1446, Until 08/28/10 at 0211, Routin e HEPARIN, PORCINE (PF) 100 UNIT/ML IV SYRINGE 1 dose, Starting María Elena 08/27/10 at 1447, Until María Elena 08/27/10 at 1453, Lisa OCAMPO: Cabinet Override, 08/27/2010 2:53 PM CDT 10 mL sodium chloride 0.9 % flush injection 10 Given mL 10 mL, IV, SEE ADMIN INSTRUCTIONS, Starting María Elena 08/27/10 at 1446, Until Tue08/28/10 at 0211, Routine 10 mL Given 08/27/2010 2:50 PM CDT SODIUM CHLORIDE 0.9 % SYRINGE 1 dose, Starting María Elena 08/27/10 at 1447, Until María Elena 08/27/10 at 1450, Lisa OCAMPO: Robertinet Override, documented in this encounter
--- OUTSIDE RECORDS SUMMARY | 2019-09-01 14:05 | XMS REPORT | Encounter Summary ---
Author Author [facility] Jah Garcia, [place], [place], [place] Organization [facility] [place], [place], [place] Address Unknown Phone Unavailable Care Team Providers Care Wafer Polisher Name Role Phone PCP Unavailable Reason for Visit * Reason Comments Arm pain pt reports numbness and tin gleing in left hand Encounter Details Care Team Description Date Type Department 09/04/2010 Emergency [facility] in Emergency Services [address] [place] [address] [place] [phone] Social History Date Tobacco Use Types Packs/Day [...] Signs Reading Time Taken Comments Vital Sign 140/70 09/04/2010 7:53 PM CDT Blood Pressure 77 09/04/2010 7:53 PM CDT Pulse 36.6 C (97.8 F) 09/04/2010 7:53 PM CDT Temperature 18 09/04/2010 7:53 PM CDT Respiratory Rate 99% 09/04/2010 7:53 PM CDT Oxygen Saturation - - Inhaled Oxygen Concentration - - Weight - - Height - - Body Mass Index documented in this encounter Discharge Instructions * Instructions* Rosalio Bartlett FNP - 09/04/2010 Apply heating pad to wrist/forearm as needed. * Attachments The following attachments cannot be sent through Care Everywhere.* TENDON INJURY (TENDINOPATHY): AFTER YOUR VISIT (DIVEHI) documented in this encounter Medications at Time [...] as of this encounter ED Notes * Rosalio Bartlett, GASTON - 09/04/2010 9:13 PM CDT HISTORY OF PRESENT ILLNESS Sophia Robert Hawkins, a 45 y.o. female presents to the ED with a Chief Complaint of A rm pain Patient is a 45 y.o. female presenting with arm pain. The history is provided by the patient. Arm pain This is a new problem. The current episode started 6 to 12 hours ago. The proble m occurs constantly. The pain is present in the left arm. The quality of the nataly n is described as sharp. The pain is moderate. REVIEW OF SYSTEMS ROS PAST MEDICAL HISTORY REVIEWED Past Medical History [...] mouth every 8 hours as need ed. PROMETHAZINE (PHENERGAN) 25 MG ORAL TABLET Take by mouth every 6 hours as n eeded. 25 to 50 mg Medications Modified during this Encounter Medications Discontinued during this Encounter PHYSICAL EXAM Initial Vitals BP 09/04/101952 140/70 mmHg Pulse 09/04/101952 77 Resp 09/04/101952 18 Temp 09/04/101952 97.8 F (36.6 C) Temp src -- SpO2 09/04/101952 99 % Physical Exam Nursing note and vitals [...] exhibits no discharge. Left eye exhibits no dis charge. No scleral icterus. Neck: Normal range of motion. Neck supple. No JVD present. No tracheal deviation present. No thyromegaly present. Cardiovascular: Normal rate, regular rhythm, normal heart sounds and intact dist al pulses. Exam reveals no gallop and no friction rub. No murmur heard. Pulmonary/Chest: Effort normal and breath sounds normal. No respiratory distress . She has no wheezes. She has no rales. She exhibits no tenderness. Abdominal: Soft. Bowel sounds are normal. She exhibits no distension and no mass . No tenderness. She has no rebound and no guarding. Musculoskeletal: She exhibits tenderness. She exhibits no edema. Right shoulder: She exhibits decreased range of motion and tenderness. She exhibits no bony tenderness, no swelling, no effusion, no crepitus, no deformity , no laceration, no pain, no spasm, normal pulse and normal strength. Arms: Lymphadenopathy: She has no cervical adenopathy. Neurological: She is alert and oriented to person, place, and time. She has norm al reflexes. No cranial nerve deficit. She exhibits normal muscle tone. Coordina tion normal. Skin: Skin is warm. No rash noted. She is not diaphoretic. No erythema. No pallo r. Psychiatric: She has a normal mood and affect. Judgment and thought content norm al. MDM Coding Reviewed: nursing note and vitals DIAGNOSTICS LAB: RADIOLOGY: EKG: PROCEDURES MEDICAL DECISION MAKING AND PLAN OF CARE Last vitals BP 140/70 | Pulse 77 | Temp 97.8 F (36.6 C) | Resp 18 | SpO2 99 % CLINICAL IMPRESSION Encounter Diagnoses Code Name Primary? 726.90D Tendonitis CASE DISCUSSED PATIENT COUNSELING Diagnostics reviewed and questions answered. Diagnosis, treatment options and p ricky of care discussed with understanding verbalized. Patient does not want NSAIDS due to renal function. DISPOSITION, EDUCATION AND MEDICATION RECONCILIATION Medications reconciled. See after visit summary for patient education on discha rged patients. documented in this encounter Miscellaneous Notes * Patient Instructions - Sgf Scanning, Him - 06/17/2011 2:26 PM ELECTRONIC VIDEO GAMES SERVICER Electronically signed by Interface, Sunil Schmitt Transcriptions Incoming at 2 2:26 PM ELECTRONIC VIDEO GAMES SERVICER documented in this encounter Plan of Treatment Not on filedocumented as of this encounter Visit Diagnoses Diagnosis Tendonitis Enthesopathy of unspecified site documented in this encounter"
--- OUTSIDE RECORDS SUMMARY | 2019-09-01 14:05 | XMS REPORT | Encounter Summary ---
Author Author [facility], [place], [place], [place], [place] Areas Organization [facility] [place], [place], [place], [place] Areas Address Unknown Phone Unavailable Care Team Providers Care Manager Coding Name Role Phone Jose Corona Ciaran DO PCP Encounter Details Care Team Description Date Type Department Justin Plata MD [address] [place] [address] [address] [place] [address] Tricuspid valve disorders, specified as nonrheumatic (Primary Dx); Other chest pain 06/13/2010 Outpatient JOPL Conversion Historical [facility] [place] [address] Social History Date Tobacco Use Types Packs/Day Years Used Never Assessed Sex Assigned at Date Recorded Not on file Industry Job Start Date Occupation Not on file Not on file Not on file Travel End Travel History Travel Start No recent travel history available. documented as of this encounter Plan of Treatment Not on filedocumented as of this encounter Visit Diagnoses Diagnosis Tricuspid valve disorders, specified as nonrheumatic - Primary Other chest pain documented in this encounter
--- OUTSIDE RECORDS SUMMARY | 2019-09-01 14:05 | XMS REPORT | Encounter Summary ---
Author Author [facility], [place], [place], [place], [place] Areas Organization [facility], [place], [place], [place], [place] Areas Address Unknown Phone Unavailable Care Team Providers Care Glove Cutter Name Role Phone Chloe Jose Ciaran DO PCP Encounter Details Care Team Description Date Type Department Santoyo, Jf Bar DO Calculus of kidney (Primary Dx); Abdominal pain, other specified site 05/06/2010 Outpatient JOPL Conversion Historical [address] [place] [address] Social History Date Tobacco Use Types Packs/Day Years Used Never Assessed Sex Assigned at Date Recorded Not on file Industry Job Start Date Occupation Not on file Not on file Not on file Travel End Travel History Travel Start No recent travel history available. documented as of this encounter Plan of Treatment Not on filedocumented as of this encounter Visit Diagnoses Diagnosis Calculus of kidney - Primary Abdominal pain, other specified site documented in this encounter
--- OUTSIDE RECORDS SUMMARY | 2019-09-01 14:05 | XMS REPORT | Encounter Summary ---
Author Author [facility], [place], [place], [place], [place] Areas Organization [facility], [place], [place], [place], [place] Areas Address Unknown Phone Unavailable Care Team Providers Care Welt Sole Layer Name Role Phone ChloeJose king Ciaran DO PCP Encounter Details Care Team Description Date Type Department Eder Ulrich MD [address] [place] [address] Fitting and adjustment of vascular lisa ter (Primary Dx) 05/19/2010 Inpatient Historical [place] [facility] Social History Date Tobacco Use Types Packs/Day Years Used Never Assessed Sex Assigned at Date Recorded Not on file Industry Job Start Date Occupation Not on file Not on file Not on file Travel End Travel History Travel Start No recent travel history available. documented as of this encounter Plan of Treatment Not on filedocumented as of this encounter Visit Diagnoses Diagnosis Fitting and adjustment of vascular cath eter - Primary documented in this encounter
--- OUTSIDE RECORDS SUMMARY | 2019-09-01 14:05 | XMS REPORT | Encounter Summary ---
Author Author [facility] [place] [place], [place], [place] Areas Organization [facility], [place], [place], [place], [place] Areas Address Unknown Phone Unavailable Care Team Providers Care Solidworks Designer Name Role Phone Jose CoronaKristie DO PCP Encounter Details Care Team Description Date Type Department Sourav Goins MD [address] [facility] [address] [place] [address] Altered mental status (Primary Dx) 06/10/2010 Outpatient JOPL Conversion Historical [address] [place] [address] [place] [address] Social History Date Tobacco Use Types Packs/Day Years Used Never Assessed Sex Assigned at Date Recorded Not on file Industry Job Start Date Occupation Not on file Not on file Not on file Travel End Travel History Travel Start No recent travel history available. documented as of this encounter Plan of Treatment Not on filedocumented as of this encounter Visit Diagnoses Diagnosis Altered mental status - Primary documented in this encounter
--- OUTSIDE RECORDS SUMMARY | 2019-09-01 14:05 | XMS REPORT | Encounter Summary ---
Author Author [facility] [place], [place], [place] Areas Organization [facility] [place], [place], [place] Areas Address Unknown Phone Unavailable Care Team Providers Care Priming Machine Operator Name Role Phone Jose Corona Ciaran DO PCP Encounter Details Care Team Description Date Type Department Yosef Melendez DO [address] [facility] [place] [address] Unspecified chest pain (Primary Dx) 06/10/2010 Outpatient JOPL Conversion Historical [facility] [place] [address] Social History Date Tobacco Use Types Packs/Day [...]
--- OUTSIDE RECORDS SUMMARY | 2019-09-01 14:05 | XMS REPORT | Encounter Summary ---
Author Author [facility] [place], [place], [place] Areas Organization [facility], [place], [place], [place], [place] Areas Address Unknown Phone Unavailable Care Team Providers Care Land Surveying Survey Worker Name Role Phone Chloe Jose Ciaran DO PCP Encounter Details Care Team Description Date Type Department Santoyo, Jf Bar DO Abdominal pain, unspecified site (Primar y Dx) 05/03/2010 Outpatient JOPL Conversion Historical [address] [facility] [place] [address] Social History Date Tobacco Use Types Packs/Day [...]
--- OUTSIDE RECORDS SUMMARY | 2019-09-01 14:06 | XMS REPORT | Encounter Summary ---
Author Author [facility] [place], [place], [facility] Organization [facility] Jah GarciaG[place], [place], [facility] Address Unknown Phone Unavailable Care Team Providers Care Small Engine Specialist Name Role Phone Jose CoronaKristie DO PCP Encounter Details Care Team Description [place] [address] [address] Other malaise and fatigue (Primary Dx) 02/12/2010 Inpatient Historical [place] [facility] Social History Date Tobacco Use Types Packs/Day Years Used Never Assessed Sex Assigned at Date Recorded Not on file Industry Job Start Date Occupation Not on file Not on file Not on file Travel End Travel History Travel Start No recent travel history available. documented as of this encounter Plan of Treatment Not on filedocumented as of this encounter Visit Diagnoses Diagnosis Other malaise and fatigue - Primary documented in this encounter
--- OUTSIDE RECORDS SUMMARY | 2019-09-01 14:06 | XMS REPORT | Encounter Summary ---
Author Author [facility], [place], [place], [place], [place] Areas Organization [facility], Jah Garcia, [place], [place], [place] Areas Address Unknown Phone Unavailable Care Team Providers Care Painter Chassis Name Role Phone Jose CoronaKristie DO PCP Encounter Details Care Team Description Date Type Department Mayank Richter MD [address] [place] [id number] Ed, Physician Other and unspecified noninfectious tacos roenteritis and colitis (Primary Dx) 05/01/2010 Emergency [facility] [place] in Emergency Services [address] [place] [address] [place] [phone] Social History Date Tobacco Use Types Packs/Day Years Used Never Assessed Sex Assigned at Date Recorded Not on file Industry Job Start Date Occupation Not on file Not on file Not on file Travel End Travel History Travel Start No recent travel history available. documented as of this encounter Plan of Treatment Not on filedocumented as of this encounter Visit Diagnoses Diagnosis Other and unspecified noninfectious gas troenteritis and colitis(558.9) - Primary Other and unspecified noninfectious gas troenteritis and colitis documented in this encounter
--- OUTSIDE RECORDS SUMMARY | 2019-09-01 14:06 | XMS REPORT | Encounter Summary ---
Author Author [facility], [place], [place], [place], [place] Areas Organization [facility], [place], [place], [place], [place] Areas Address Unknown Phone Unavailable Care Team Providers Care Supervisor Buffing And Pasting Name Role Phone Chloe Jose Ciaran DO PCP Encounter Details Care Team Description Date Type Department Chuckie Little, DO 100 [facility] [place] [address] [phone] Ed, Physician Abdominal pain, other specified site (P rimary Dx) 05/03/2010 Emergency [facility] in Emergency Services [address] [place] [address] [place] [phone] Social History Date Tobacco Use Types Packs/Day [...] this encounter Visit Diagnoses Diagnosis Abdominal pain, other specified site - Primary documented in this encounter
--- OUTSIDE RECORDS SUMMARY | 2019-09-01 14:06 | XMS REPORT | Encounter Summary ---
Author [facility] [place], [place], [facility] [place] [facility] Organization [facility] [place], [place], [facility] Address Unknown Phone Unavailable Care Team Providers Care Shafting Cleaner Name Role Phone Jose CoronaKristie DO PCP Encounter Details Care Team Description Date Type Department Orqiudea Kitchen MD (John) [address] [address] [place] [address] Loss of weight (Primary Dx); Unspecified constipation 04/28/2010 Outpatient JOPL Conversion Historical [place] [place] [address] Social History Date Tobacco Use Types Packs/Day Years Used Never Assessed Sex Assigned at Date Recorded Not on file Industry Job Start Date Occupation Not on file Not on file Not on file Travel End Travel History Travel Start No recent travel history available. documented as of this encounter Plan of Treatment Not on filedocumented as of this encounter Visit Diagnoses Diagnosis Loss of weight - Primary Unspecified constipation documented in this encounter
--- OUTSIDE RECORDS SUMMARY | 2019-09-01 14:06 | XMS REPORT | Encounter Summary ---
Author Author [facility], [place], [place], [place], [place] Areas Organization [facility], [place], [place], [place], [place] Areas Address Unknown Phone Unavailable Care Team Providers Care Developing Machine Operator Name Role Phone ChloeJose king Ciaran DO PCP Encounter Details Care Team Description Date Type Department Eder Ulrich MD [address] [place] [address] Fitting and adjustment of vascular lisa ter (Primary Dx) 01/16/2010 Inpatient Historical [place] Historical [facility] Social History Date [...]
--- OUTSIDE RECORDS SUMMARY | 2019-09-01 14:06 | XMS REPORT | Encounter Summary ---
Author Author [facility], [place], [place], [place], [place] Areas Organization [facility], [place], [place], [place], [place] Areas Address Unknown Phone Unavailable Care Team Providers Care Oyster Harvester Name Role Phone Jose CoronaKristie DO PCP Encounter Details Care Team Description Date Type Department Chuyita Briscoe MD [address] [facility] [place] [phone] Shortness of Breath (Primary Dx) 08/19/2009 Outpatient JOPL Conversion Historical [address] [facility] [place] [address] Social History Date Tobacco Use Types Packs/Day [...]
--- OUTSIDE RECORDS SUMMARY | 2019-09-01 14:06 | XMS REPORT | Encounter Summary ---
Author Author [facility], [place], [place], [place], [place] Areas Organization [facility] [employer], [place], [place], [place] Areas Address Unknown Phone Unavailable Care Team Providers Care Foot Miter Operator Name Role Phone ChloeJose king Ciaran DO PCP Encounter Details Care Team Description Date Type Department Eder Ulrich MD [address] [place] [address] Fitting and adjustment of vascular lisa ter (Primary Dx) 02/16/2010 Inpatient Historical [place] Historical [facility] Social History Date [...]
--- OUTSIDE RECORDS SUMMARY | 2019-09-01 14:06 | XMS REPORT | Encounter Summary ---
Author Author [facility], [place], [place], [place], [place] Areas Organization [facility], [place], [place], [place], [place] Areas Address Unknown Phone Unavailable Care Team Providers Care Publications Designer Name Role Phone Jose CoronaKristie DO PCP Encounter Details Care Team Description Date Type Department Chuyita Briscoe MD [address] [facility] [place] [phone] Shortness of Breath (Primary Dx) 08/19/2009 Outpatient JOPL Conversion Historical [address] [place] [address] Social History Date Tobacco Use Types Packs/Day [...]
--- OUTSIDE RECORDS SUMMARY | 2019-09-01 14:06 | XMS REPORT | Encounter Summary ---
Author Author [facility] [place], [place], [facility] Organization [facility] [place], [place], [facility] Address Unknown Phone Unavailable Care Team Providers Care Hot Kettle Tender Name Role Phone Jose CoronaKristie DO PCP Encounter Details Care Team Description Date Type Department Neil Cruz MD 100 [facility] [place] [address] Unspecified Chest Pain (Primary Dx); Pulmonary Collapse 08/13/2009 Outpatient JOPL Conversion Historical [facility] [place] [address] Social History Date Tobacco Use Types Packs/Day [...] Diagnoses Diagnosis Chest pain, unspecified - Primary Pulmonary collapse documented in this encounter
--- OUTSIDE RECORDS SUMMARY | 2019-09-01 14:06 | XMS REPORT | Encounter Summary ---
Author Author [facility] [place], [place], [place] Areas Organization [facility], [place], [place], [place] Areas Address Unknown Phone Unavailable Care Team Providers Care Sales Contract Administrator Name Role Phone Jose Corona Ciaran DO PCP Encounter Details Care Team Description Date Type Department Chuckie Little, DO 100 [facility] [place] [id number] Abdominal pain, other specified site (P rimary Dx); Unspecified constipation 05/03/2010 Outpatient JOPL Conversion Historical [facility] [place] [address] Social History Date Tobacco Use Types Packs/Day [...] Abdominal pain, other specified site - Primary Unspecified constipation documented in this encounter
--- OUTSIDE RECORDS SUMMARY | 2019-09-01 14:06 | XMS REPORT | Encounter Summary ---
Author Author [facility] [place], [place], [place] Areas Organization [facility], [place], [place], [place] Areas Address Unknown Phone Unavailable Care Team Providers Care Slots Manager Name Role Phone Jose Corona Ciaran DO PCP Encounter Details Care Team Description Date Type Department Chuckie Little, DO 100 [facility] Hospital[facility] [place] [address] Unspecified Chest Pain (Primary Dx) 08/13/2009 Outpatient JOPL Conversion Historical [facility]7 [facility] [place] [address] Social History Date Tobacco Use Types Packs/Day [...]
--- OUTSIDE RECORDS SUMMARY | 2019-09-01 14:06 | XMS REPORT | Encounter Summary ---
Author Author [facility], [place], [place], [place], [place] Areas Organization [facility], [place], [place], [place], [place] Areas Address Unknown Phone Unavailable Care Team Providers Care Spinning Room Worker Name Role Phone Jose CoronaKristie DO PCP Encounter Details Care Team Description Date Type Department Chuyita Briscoe MD [address] [place] [address] Acute bronchitis (Primary Dx); Chronic airway obstruction, not elsewhere classified 04/02/2010 Outpatient JOPL Conversion Historical [address] [place] [address] Social History Date Tobacco Use Types Packs/Day Years Used Never Assessed Sex Assigned at Date Recorded Not on file Industry Job Start Date Occupation Not on file Not on file Not on file Travel End Travel History Travel Start No recent travel history available. documented as of this encounter Plan of Treatment Not on filedocumented as of this encounter Visit Diagnoses Diagnosis Acute bronchitis - Primary Chronic airway obstruction, not elsewhe re classified documented in this encounter
--- OUTSIDE RECORDS SUMMARY | 2019-09-01 14:06 | XMS REPORT | Encounter Summary ---
Author Author [facility], [place], [place], [place], [place] Areas Organization [facility], [place], [place], [place], [place] Areas Address Unknown Phone Unavailable Care Team Providers Care Project Director Name Role Phone Jose CoronaKristie DO PCP Encounter Details Care Team Description Date Type Department Chuyita Briscoe MD [address] [facility] [place] [phone] Shortness of Breath (Primary Dx) 08/19/2009 Outpatient JOPL Conversion Historical [address] [facility] [place] [address] Social History Date Tobacco Use Types Packs/Day [...]
--- OUTSIDE RECORDS SUMMARY | 2019-09-01 14:06 | XMS REPORT | Encounter Summary ---
Author Author [facility], [place], [place], [place], [place] Areas Organization [facility], [place], [place], [place], [place] Areas Address Unknown Phone Unavailable Care Team Providers Care Fondant Puff Maker Name Role Phone Jose CoronaKristie DO PCP Encounter Details Care Team Description Date Type Department Chuyita Briscoe MD [address] [facility] [place] [phone] Shortness of Breath (Primary Dx) 08/19/2009 Outpatient JOPL Conversion Historical [address] [place] [address] Social History Date Tobacco Use Types Packs/Day [...]
--- OUTSIDE RECORDS SUMMARY | 2019-09-01 14:06 | XMS REPORT | Encounter Summary ---
Author Author [facility], [place], [place], [place], [place] Areas Organization [facility], [place], [place], [place], [place] Areas Address Unknown Phone Unavailable Care Team Providers Care Facilities Maintenance Manager Name Role Phone Jose Corona Ciaran DO PCP Encounter Details Care Team Description Date Type Department Other and unspecified noninf ectious gastroenteritis and colitis (Primary Dx); Personal history of tobacco use, presenting hazards to health 05/01/2010 Outpatient JOPL Conversion Historical [address] [place] [address] Social History Date Tobacco Use Types Packs/Day [...] and unspecified noninfectious gas troenteritis and colitis Personal history of tobacco use, presen ting hazards to health documented in this encounter
--- OUTSIDE RECORDS SUMMARY | 2019-09-01 14:06 | XMS REPORT | Encounter Summary ---
Author Author [facility] [place], [place], [place] Areas Organization [facility], [place], [place], [place], [place] Areas Address Unknown Phone Unavailable Care Team Providers Care Route Jumper Name Role Phone Chloe Jose Ciaran DO PCP Encounter Details Care Team Description Date Type Department Jf Santoyo DO Loss of weight (Primary Dx); Other malaise and fatigue 02/12/2010 Outpatient JOPL Conversion Historical [address] [place] [address] Social History Date Tobacco Use Types Packs/Day [...] Diagnoses Diagnosis Loss of weight - Primary Other malaise and fatigue documented in this encounter
--- OUTSIDE RECORDS SUMMARY | 2019-09-01 14:06 | XMS REPORT | Encounter Summary ---
Author Author [facility], [place], [place], [place], [place] Areas Organization [facility], [place], [place], [place], [place] Areas Address Unknown Phone Unavailable Care Team Providers Care Photo Offset Printer Name Role Phone ChloeJose king Ciaran DO PCP Encounter Details Care Team Description Date Type Department Eder Ulrich MD [address] [place] [address] Fitting and adjustment of vascular lisa ter (Primary Dx) 03/20/2010 Inpatient Historical [place] Historical [facility] Social History Date [...]
--- OUTSIDE RECORDS SUMMARY | 2019-09-01 14:06 | XMS REPORT | Encounter Summary ---
Author Author [facility], [place], [place], [place] Areas Organization [facility], [place], [place], [place], [place] Areas Address Unknown Phone Unavailable Care Team Providers Care Policy Officer Name Role Phone Chloe Jose Ciaran DO PCP Encounter Details Care Team Description Date Type Department Jf Santoyo DO Loss of weight (Primary Dx); Other malaise and fatigue 02/12/2010 Outpatient JOPL Conversion Historical [address] [place] [address] Social History Date Tobacco Use Types Packs/Day [...]
--- OUTSIDE RECORDS SUMMARY | 2019-09-01 14:06 | XMS REPORT | Encounter Summary ---
Author Author [facility] [place], [place], [facility] Organization [facility] [place], [place], [facility] Address Unknown Phone Unavailable Care Team Providers Care Supervisor Metal Furniture Assembly Name Role Phone Jose CoronaKristie DO PCP Encounter Details Care Team Description Date Type Department Terrence Pringle MD 100 [facility] [place] [address] Abdominal pain, unspecified site (Primar y Dx) 05/01/2010 Outpatient JOPL Conversion Historical [facility]7 [facility] [place] [address] Social History Date Tobacco Use Types Packs/Day [...]
--- OUTSIDE RECORDS SUMMARY | 2019-09-01 14:06 | XMS REPORT | Encounter Summary ---
Author Author [facility] [place], [place], [place] Areas Organization [facility], [place], [place], [place], [place] Areas Address Unknown Phone Unavailable Care Team Providers Care Demurrage Clerk Name Role Phone Chloe Jose Ciaran DO PCP Encounter Details Care Team Description Date Type Department Jf Santoyo DO Loss of weight (Primary Dx); Other malaise and fatigue 02/12/2010 Outpatient JOPL Conversion Historical [address] [place] [address] Social History Date Tobacco Use Types Packs/Day [...]
--- OUTSIDE RECORDS SUMMARY | 2019-09-01 14:06 | XMS REPORT | Encounter Summary ---
Author Author [facility] [place], [place], [place] [facility] Organization [facility] [place], [place], [facility] Address Unknown Phone Unavailable Care Team Providers Care Insurance Actuary Name Role Phone Jose CoronaKristie DO PCP Encounter Details Care Team Description Date Type Department Selvin Escobedo MD 100 [facility] [place] [address] Unspecified Pleural Effusion (Primary Dx ); Abn Findings-Lung Field 09/29/2009 Outpatient JOPL Conversion Historical [facility] [address] [place] [address] Social History Date Tobacco Use Types Packs/Day Years Used Never Assessed Sex Assigned at Date Recorded Not on file Industry Job Start Date Occupation Not on file Not on file Not on file Travel End Travel History Travel Start No recent travel history available. documented as of this encounter Plan of Treatment Not on filedocumented as of this encounter Visit Diagnoses Diagnosis Unspecified pleural effusion - Primary Nonspecific (abnormal) findings on radi ological and other examination of lung field documented in this encounter
--- OUTSIDE RECORDS SUMMARY | 2019-09-01 14:06 | XMS REPORT | Encounter Summary ---
Author Author [facility] [place], [place], [place] Areas Organization [facility] [place], [place], [place] Areas Address Unknown Phone Unavailable Care Team Providers Care Family Helper Name Role Phone [place], Jacob Bar MD PCP Reason for Visit * Reason Comments COPD Encounter Details Care Team Description Date Type Department Chuyita Briscoe MD [address] [facility] [place] [phone] 04/02/2010 Abstract [facility] [place] in [place] Social History Date Tobacco [...] Signs Reading Time Taken Comments Vital Sign 144/88 07/24/2010 10:58 AM CDT Blood Pressure 74 07/24/2010 10:58 AM CDT Pulse - - Temperature 20 07/24/2010 10:58 AM CDT Respiratory Rate 100% 07/24/2010 10:58 AM CDT Oxygen Saturation - - Inhaled Oxygen Concentration 71.7 kg (158 lb) 07/24/2010 10:58 AM CDT Weight - - Height - - Body Mass Index documented in this encounter Plan of Treatment Not on filedocumented as of this encounter Visit Diagnoses Not on filedocumented in this encounter
--- OUTSIDE RECORDS SUMMARY | 2019-09-01 14:06 | XMS REPORT | Encounter Summary ---
Author Author [facility], [place], [place], [place], [place] Areas Organization [facility] [place], [place], [place] Areas Address Unknown Phone Unavailable Care Team Providers Care Metal Fabrication Supervisor Name Role Phone Jose Corona Ciaran DO PCP Encounter Details Care Team Description Date Type Department Eder Ulrich MD [address] [place] [address] Compression of Vein (Primary Dx) 09/29/2009 Inpatient [facility] Outpatient [facility] [place] [address] [facility] [place] [address] Social History Date Tobacco Use Types Packs/Day Years Used Never Assessed Sex Assigned at Date Recorded Not on file Industry Job Start Date Occupation Not on file Not on file Not on file Travel End Travel History Travel Start No recent travel history available. documented as of this encounter Plan of Treatment Not on filedocumented as of this encounter Visit Diagnoses Diagnosis Compression of vein - Primary documented in this encounter
--- OUTSIDE RECORDS SUMMARY | 2019-09-01 14:06 | XMS REPORT | Encounter Summary ---
Author Author [facility], [place], [place], [place], [place] Areas Organization [facility], [place], [place], [place], [place] Areas Address Unknown Phone Unavailable Care Team Providers Care Tempering Machine Operator Name Role Phone Jose CoronaKristie DO PCP Encounter Details Care Team Description Date Type Department Jonathan Razo MD [address] [place] [address] Unspecified backache (Primary Dx); Personal history of tobacco use, presenting hazards to health 01/26/2010 Outpatient JOPL Conversion Historical [address] [place] [address] Social History Date Tobacco Use Types Packs/Day Years Used Never Assessed Sex Assigned at Date Recorded Not on file Industry Job Start Date Occupation Not on file Not on file Not on file Travel End Travel History Travel Start No recent travel history available. documented as of this encounter Plan of Treatment Not on filedocumented as of this encounter Visit Diagnoses Diagnosis Backache, unspecified - Primary Personal history of tobacco use, presen ting hazards to health documented in this encounter
--- OUTSIDE RECORDS SUMMARY | 2019-09-01 14:06 | XMS REPORT | Encounter Summary ---
Author Author [facility], [place], [place], [place], [place] Areas Organization [facility], [place], [place], [place], [place] Areas Address Unknown Phone Unavailable Care Team Providers Care Enamel Sprayer Name Role Phone ChloeJose king Ciaran DO PCP Encounter Details Care Team Description Date Type Department Eder Ulrich MD [address] [place] [address] Fitting and Adjustment of Vascular Jerica ter (Primary Dx) 10/28/2009 Inpatient Historical [place] Historical [facility] Social History Date [...]
--- OUTSIDE RECORDS SUMMARY | 2019-09-01 14:06 | XMS REPORT | Encounter Summary ---
Author Author [facility], [place], [place], [place], [facility] Organization [facility] Jah [place], [place], [place], [facility] Address Unknown Phone Unavailable Care Team Providers Care Print Traffic Manager Name Role Phone Jose CoronaKristie DO PCP Encounter Details Care Team Description Date Type Department Chuyita Briscoe MD [address] [place] [phone] Chronic Airway Obstruction, not Elsewher e Classified (Primary Dx) 08/19/2009 Inpatient [facility] Historical Pulmonary [place] [address] [place] [phone] Social History Date Tobacco Use Types Packs/Day Years Used Never Assessed Sex Assigned at Date Recorded Not on file Industry Job Start Date Occupation Not on file Not on file Not on file Travel End Travel History Travel Start No recent travel history available. documented as of this encounter Plan of Treatment Not on filedocumented as of this encounter Visit Diagnoses Diagnosis Chronic airway obstruction, not elsewhe re classified - Primary documented in this encounter
--- OUTSIDE RECORDS SUMMARY | 2019-09-01 14:06 | XMS REPORT | Encounter Summary ---
Author Author [facility], [place], [place], [place], [place] Areas Organization [facility], [place], [place], [place], [place] Areas Address Unknown Phone Unavailable Care Team Providers Care Haz Tech Name Role Phone ChloeJose king Ciaran DO PCP Encounter Details Care Team Description Date Type Department Eder Ulrich MD [address] [place] [address] Fitting and adjustment of vascular lisa ter (Primary Dx) 04/18/2010 Inpatient Historical [place] Historical [facility] Social History Date [...]
--- OUTSIDE RECORDS SUMMARY | 2019-09-01 14:06 | XMS REPORT | Encounter Summary ---
Author Author [facility] [place], [place], [facility] Organization [facility], [place], [place], [facility] Address Unknown Phone Unavailable Care Team Providers Care General Education Professor Name Role Phone Jose CornoaKristie DO PCP Encounter Details Care Team Description [place] [address] [address] Abdominal pain, unspecified site (Primar y Dx) 04/29/2010 Inpatient Historical [place] Tyler HOBSON Rad Historical Social History Date Tobacco Use Types Packs/Day [...]
--- OUTSIDE RECORDS SUMMARY | 2019-09-01 14:06 | XMS REPORT | Encounter Summary ---
Author Author [facility], [place], [place], [place], [place] Areas Organization [facility], [place], [place], [place], [place] Areas Address Unknown Phone Unavailable Care Team Providers Care Roll Handler Name Role Phone ChloeJose king Ciaran DO PCP Encounter Details Care Team Description Date Type Department Eder Ulrich MD [address] [place] [address] Fitting and Adjustment of Vascular Jerica ter (Primary Dx) 11/16/2009 Inpatient Historical [place] Historical [facility] [place] Social History Date [...]
--- OUTSIDE RECORDS SUMMARY | 2019-09-01 14:06 | XMS REPORT | Encounter Summary ---
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
--- OUTSIDE RECORDS SUMMARY | 2019-09-01 14:06 | XMS REPORT | Encounter Summary ---
Author Author [facility] [place], [place], [facility] Organization [facility] [place], [place], [place], [facility] Address Unknown Phone Unavailable Care Team Providers Care Rn Diabetes Educator Name Role Phone Jose CoronaKristie DO PCP Encounter Details Care Team Description Date Type Department Neil Cruz MD 100 [facility] [place] [address] Abdominal pain, unspecified site (Primar y Dx) 04/29/2010 Outpatient JOPL Conversion Historical [facility]7 [facility] [place] [address] Social History Date Tobacco Use Types Packs/Day [...]
--- OUTSIDE RECORDS SUMMARY | 2019-09-01 14:06 | XMS REPORT | Encounter Summary ---
Author Author [facility], [place], [place], [place], [place] Areas Organization [facility], [place], [place], [place], [place] Areas Address Unknown Phone Unavailable Care Team Providers Care Documentation Designer Name Role Phone ChloeJose king Ciaran DO PCP Encounter Details Care Team Description Date Type Department Eder Ulrich MD [address] [place] [address] Fitting and Adjustment of Vascular Jerica ter (Primary Dx) 12/17/2009 Inpatient Historical [place] Historical [facility] [place] Social History Date [...]
--- OUTSIDE RECORDS SUMMARY | 2019-09-01 14:06 | XMS REPORT | Encounter Summary ---
Author Author [facility], [place], [place], [place], [place] Areas Organization [facility], Jah Garcia, [place], [place], [facility] Address Unknown Phone Unavailable Care Team Providers Care Architecture Professor Name Role Phone Jose CoronaKristie DO PCP Encounter Details Care Team Description Date [place] [address] [place] [address] [place] [phone] Ed, Physician Unspecified backache (Primary Dx) 01/26/2010 Emergency [facility] in Emergency Services [address] [place] [address] [place] [phone] Social History Date Tobacco Use Types Packs/Day [...] Visit Diagnoses Diagnosis Backache, unspecified - Primary documented in this encounter
--- OUTSIDE RECORDS SUMMARY | 2019-09-01 14:07 | XMS REPORT | Encounter Summary ---
Author Author [facility] [place], [place], [place] Areas Organization [facility], [place], [place], [place] Areas Address Unknown Phone Unavailable Care Team Providers Care Border Patrol Officer Name Role Phone Jose CoronaKristie DO PCP Encounter Details Care Team Description Date Type Department Sourav Goins MD [address] [facility] [address] [place] [address] Other Chronic Nonalcoholic Liver Disease (Primary Dx); Paralytic Ileus 05/08/2009 Outpatient JOPL Conversion Historical [address] [place] [address] Social History Date Tobacco Use Types Packs/Day Years Used Never Assessed Sex Assigned at Date Recorded Not on file Industry Job Start Date Occupation Not on file Not on file Not on file Travel End Travel History Travel Start No recent travel history available. documented as of this encounter Plan of Treatment Not on filedocumented as of this encounter Visit Diagnoses Diagnosis Other chronic nonalcoholic liver diseas e - Primary Paralytic ileus documented in this encounter
--- OUTSIDE RECORDS SUMMARY | 2019-09-01 14:07 | XMS REPORT | Encounter Summary ---
Author Author [facility] [place], [place], [place] Areas Organization [facility] [place], [place], [place], [place] Areas Address Unknown Phone Unavailable Care Team Providers Care Director Of Financial Planning Name Role Phone Jose CoronaKristie DO PCP Encounter Details Care Team Description Date Type Department Neil Cruz MD 100 [facility] [place] [address] Other Emphysema (Primary Dx) 08/08/2009 Outpatient JOPL Conversion Historical [address] [place] [address] [place] [address] Social History Date Tobacco Use Types Packs/Day Years Used Never Assessed Sex Assigned at Date Recorded Not on file Industry Job Start Date Occupation Not on file Not on file Not on file Travel End Travel History Travel Start No recent travel history available. documented as of this encounter Plan of Treatment Not on filedocumented as of this encounter Visit Diagnoses Diagnosis Other emphysema - Primary documented in this encounter
--- OUTSIDE RECORDS SUMMARY | 2019-09-01 14:07 | XMS REPORT | Encounter Summary ---
Author Author [facility] [place], [place], [facility] Organization [facility], [place], [place], [facility] Address Unknown Phone Unavailable Care Team Providers Care Hospice Social Worker Name Role Phone Jose Corona Ciaran DO PCP Encounter Details Care Team Description Date Type Department Conversion, History 02/10/2009 Inpatient [facility] Historical NEUROVASCULAR PEDIATRIC [address] [facility] [place] [phone] Social History Date Tobacco Use Types Packs/Day [...]
--- OUTSIDE RECORDS SUMMARY | 2019-09-01 14:07 | XMS REPORT | Encounter Summary ---
Author Author [facility] [place], [place], [place] Areas Organization [facility], [place], [place], [place] Areas Address Unknown Phone Unavailable Care Team Providers Care Carton Stamper Name Role Phone Jose CoronaKristie DO PCP Encounter Details Care Team Description Date Type Department Selvin Escobedo MD 100 [facility] [place] [address] Unspecified Chest Pain (Primary Dx) 02/24/2009 Outpatient JOPL Conversion Historical [facility] [place] [address] Social History Date Tobacco Use Types Packs/Day [...]
--- OUTSIDE RECORDS SUMMARY | 2019-09-01 14:07 | XMS REPORT | Encounter Summary ---
Author Author [facility] [place], [place], [place] Areas Organization [facility], [place], [place], [place] Areas Address Unknown Phone Unavailable Care Team Providers Care Transplant Immunologist Name Role Phone Jose CoronaKristie DO PCP Encounter Details Care Team Description Date Type Department Sourav Goins MD [address] [facility] [address] [place] [address] Other Chronic Nonalcoholic Liver Disease (Primary Dx); Paralytic Ileus 05/08/2009 Outpatient JOPL Conversion Historical [address] [place] [address] Social History Date Tobacco Use Types Packs/Day [...]
--- OUTSIDE RECORDS SUMMARY | 2019-09-01 14:07 | XMS REPORT | Encounter Summary ---
Author Author [facility], [place], [place], [place], [place] Areas Organization [facility], Jah Garcia, [place], [place], [facility] Address Unknown Phone Unavailable Care Team Providers Care Wellness Assistant Name Role Phone Jose CoronaKristie DO PCP Encounter Details Care Team Description Date Type Department Nicolás Mariee MD NO ADDRESS ON FILE Ed, Physician Contusion of Chest Wall (Primary Dx) 02/24/2009 Emergency [facility] Services [address] [facility] [place] [phone] Social History Date Tobacco Use Types Packs/Day Years Used Never Assessed Sex Assigned at Date Recorded Not on file Industry Job Start Date Occupation Not on file Not on file Not on file Travel End Travel History Travel Start No recent travel history available. documented as of this encounter Plan of Treatment Not on filedocumented as of this encounter Visit Diagnoses Diagnosis Contusion of chest wall - Primary documented in this encounter
--- OUTSIDE RECORDS SUMMARY | 2019-09-01 14:07 | XMS REPORT | Encounter Summary ---
Author Author [facility] [place], [place], [facility] Organization [facility] [place], [place], [facility] Address Unknown Phone Unavailable Care Team Providers Care Psychology Assistant Name Role Phone Jose Corona Ciaran DO PCP Encounter Details Care Team Description Date Type Department Jonathan Garcia, DO 100 [facility] [place] [address] Obstructive Chronic Bronchitis with Exac erbation (Primary Dx); Painful Respiration 03/03/2009 Outpatient JOPL Conversion Historical [facility] [place] [address] Social History Date Tobacco Use Types Packs/Day Years Used Never Assessed Sex Assigned at Date Recorded Not on file Industry Job Start Date Occupation Not on file Not on file Not on file Travel End Travel History Travel Start No recent travel history available. documented as of this encounter Plan of Treatment Not on filedocumented as of this encounter Visit Diagnoses Diagnosis Obstructive chronic bronchitis with exa cerbation - Primary Painful respiration documented in this encounter
--- OUTSIDE RECORDS SUMMARY | 2019-09-01 14:07 | XMS REPORT | Encounter Summary ---
Author Author [facility], [place], [place], [place], [place] Areas Organization [facility], [place], [place], [place], [place] Areas Address Unknown Phone Unavailable Care Team Providers Care Cooker Tender Name Role Phone Chloe Jose K. DO PCP Encounter Details Care Team Description Date Type Department Ean Hugo DO NO ADDRESS ON FILE Obstructive Chronic Bronchitis with Exac erbation (Primary Dx) 03/15/2009 Outpatient JOPL Conversion Historical [address] [place] [address] Social History Date Tobacco Use Types Packs/Day [...] chronic bronchitis with exa cerbation - Primary documented in this encounter
--- OUTSIDE RECORDS SUMMARY | 2019-09-01 14:07 | XMS REPORT | Encounter Summary ---
Author Author [facility], [place], [place], [place] Areas Organization [facility], [place], [place], [place], [place] Areas Address Unknown Phone Unavailable Care Team Providers Care Protozoologist Name Role Phone Jose CoronaKristie DO PCP Encounter Details Care Team Description Date Type Department Sourav Goins MD [address] [facility] [address] [place] [address] Pain in Soft Tissues of Limb (Primary Dx ); Swelling of Limb 05/07/2009 Outpatient JOPL Conversion Historical [address] [place] [address] Social History Date Tobacco Use Types Packs/Day Years Used Never Assessed Sex Assigned at Date Recorded Not on file Industry Job Start Date Occupation Not on file Not on file Not on file Travel End Travel History Travel Start No recent travel history available. documented as of this encounter Plan of Treatment Not on filedocumented as of this encounter Visit Diagnoses Diagnosis Pain in limb - Primary Swelling of limb documented in this encounter
--- OUTSIDE RECORDS SUMMARY | 2019-09-01 14:07 | XMS REPORT | Encounter Summary ---
Author Author [facility], [place], [place], [place], [facility] Organization [facility], [place], [place], [place], [facility] Address Unknown Phone Unavailable Care Team Providers Care Job Service Consultant Name Role Phone Jose CoronaKristie DO PCP Encounter Details Care Team Description Date Type Department Lance Lopez MD NO ADDRESS ON FILE Conversion, History Poisoning by Opiates and Related Narcoti cs, Other (Primary Dx) 04/08/2009 Inpatient [facility]W Historical MEDICAL RENAL [address] [facility] [place] [address] Social History Date Tobacco Use Types Packs/Day Years Used Never Assessed Sex Assigned at Date Recorded Not on file Industry Job Start Date Occupation Not on file Not on file Not on file Travel End Travel History Travel Start No recent travel history available. documented as of this encounter Plan of Treatment Not on filedocumented as of this encounter Visit Diagnoses Diagnosis Poisoning by opiates and related narcot ics, other - Primary documented in this encounter
--- OUTSIDE RECORDS SUMMARY | 2019-09-01 14:07 | XMS REPORT | Encounter Summary ---
Author Author [facility], [place], [place], [place], [place] Areas Organization [facility], [place], [place], [place], [place] Areas Address Unknown Phone Unavailable Care Team Providers Care Upholsterer [place] And Hearse Name Role Phone Jose CoronaKristie DO PCP Encounter Details Care Team Description Date Type Department Emre Magallanes MD [address] [address] Other and Unspecified Reactive Psychosis (Primary Dx); Chronic Airway Obstruction, not Elsewhere Classified 05/08/2009 Outpatient JOPL Conversion Historical [address] [place] [address] Social History Date Tobacco Use Types Packs/Day [...] encounter Visit Diagnoses Diagnosis Other and unspecified reactive psychosi s - Primary Chronic airway obstruction, not elsewhe re classified documented in this encounter
--- OUTSIDE RECORDS SUMMARY | 2019-09-01 14:07 | XMS REPORT | Encounter Summary ---
Author Author [facility], [place], [place], [place], [place] Areas Organization [facility], [place], [place], [place], [place] Areas Address Unknown Phone Unavailable Care Team Providers Care Apparel Patternmaker Name Role Phone Chloe Jose Ciaran DO PCP Encounter Details Care Team Description Date Type Department Tessa Inman DO NO ADDRESS ON FILE Unspecified Chest Pain (Primary Dx) 08/08/2009 Outpatient JOPL Conversion Historical [address] [place] [address] Social History Date Tobacco Use Types Packs/Day [...]
--- OUTSIDE RECORDS SUMMARY | 2019-09-01 14:07 | XMS REPORT | Encounter Summary ---
Author Author [facility] [place], [place], [facility] Organization [facility] [place], [place], [facility] Address Unknown Phone Unavailable Care Team Providers Care Career Guidance Technician Name Role Phone Chloe Jose K. DO PCP Encounter Details Care Team Description Date Type Department Jonathan Garcia, DO 100 [facility] [address] [phone] Ed, Physician Obstructive Chronic Bronchitis with Exac erbation (Primary Dx) 03/03/2009 Emergency [facility] in Emergency Services [address] [place] [address] [place] [phone] Social History Date Tobacco Use Types Packs/Day [...]
--- OUTSIDE RECORDS SUMMARY | 2019-09-01 14:07 | XMS REPORT | Encounter Summary ---
Author Author [facility], [place], [place], [place], [place] Areas Organization [facility], [place], [place], [place], [place] Areas Address Unknown Phone Unavailable Care Team Providers Care Blanker Operator Name Role Phone Jose CoronaKristie DO PCP Encounter Details Care Team Description Date Type Department Nicolás Mariee MD NO ADDRESS ON FILE Contusion of Chest Wall (Primary Dx); Contusion of Hip 02/24/2009 Outpatient JOPL Conversion Historical [address] [place] [address] Social History Date Tobacco Use Types Packs/Day [...] Diagnosis Contusion of chest wall - Primary Contusion of hip documented in this encounter
--- OUTSIDE RECORDS SUMMARY | 2019-09-01 14:07 | XMS REPORT | Encounter Summary ---
Author Author [facility] [place], [place], [place] Areas Organization [facility], [place], [place], [place] Areas Address Unknown Phone Unavailable Care Team Providers Care Customer Liaison Name Role Phone Jose CoronaKristie DO PCP Encounter Details Care Team Description Date Type Department Refugio Patrick MD NO ADDRESS ON FILE Acute Respiratory Failure (Primary Dx) 05/09/2009 Outpatient JOPL Conversion Historical [address] [place] [address] Social History Date Tobacco Use Types Packs/Day Years Used Never Assessed Sex Assigned at Date Recorded Not on file Industry Job Start Date Occupation Not on file Not on file Not on file Travel End Travel History Travel Start No recent travel history available. documented as of this encounter Plan of Treatment Not on filedocumented as of this encounter Visit Diagnoses Diagnosis Acute respiratory failure - Primary documented in this encounter
--- OUTSIDE RECORDS SUMMARY | 2019-09-01 14:07 | XMS REPORT | Encounter Summary ---
Author Author [facility], [place], [place], [place], [place] Areas Organization [facility], [place], [place], [place], [place] Areas Address Unknown Phone Unavailable Care Team Providers Care Instruments Sales Representative Name Role Phone Jose CoronaKristie DO PCP Encounter Details Care Team Description Date Type Department Chuyita Briscoe MD [address] [place] [phone] Chronic Airway Obstruction, not Elsewher e Classified (Primary Dx); Other Dyspnea and Respiratory Abnormality 07/17/2009 Outpatient JOPL Conversion Historical [address] [place] [address] Social History Date Tobacco Use Types Packs/Day [...] obstruction, not elsewhe re classified - Primary Other dyspnea and respiratory abnormali ty documented in this encounter
--- OUTSIDE RECORDS SUMMARY | 2019-09-01 14:07 | XMS REPORT | Encounter Summary ---
Author Author [facility], [place], [place], [facility] Organization [facility], [place]our[place]aria[place], [place], [facility] Address Unknown Phone Unavailable Care Team Providers Care Welfare Manager Name Role Phone Jose CoronaKristie DO PCP Encounter Details Care Team Description Date Type Department Zaid Vergara MD [address] [place] [address] [address] [place] [address] Acute and Chronic Respiratory Failure (P rimary Dx); Obstructive Chronic Bronchitis with Exacerbation 04/09/2009 Outpatient JOPL Conversion Historical [facility] [place] [address] Social History Date Tobacco Use Types Packs/Day Years Used Never Assessed Sex Assigned at Date Recorded Not on file Industry Job Start Date Occupation Not on file Not on file Not on file Travel End Travel History Travel Start No recent travel history available. documented as of this encounter Plan of Treatment Not on filedocumented as of this encounter Visit Diagnoses Diagnosis Acute and chronic respiratory failure - Primary Obstructive chronic bronchitis with exa cerbation documented in this encounter
--- OUTSIDE RECORDS SUMMARY | 2019-09-01 14:07 | XMS REPORT | Encounter Summary ---
Author Author [facility], [place], [place], [place], [place] Areas Organization [facility], [place], [place], [place], [place] Areas Address Unknown Phone Unavailable Care Team Providers Care Management Development Specialist Name Role Phone Jose Corona Ciaran DO PCP Encounter Details Care Team Description Date [place] [address] [place] [address] [place] [address] [phone] Conversion, History Primary Hypercoagulable State (Primary D x) 08/08/2009 Inpatient [facility] [place] in [facility] [address] [facility] [phone] Social History Date Tobacco Use Types Packs/Day Years Used Never Assessed Sex Assigned at Date Recorded Not on file Industry Job Start Date Occupation Not on file Not on file Not on file Travel End Travel History Travel Start No recent travel history available. documented as of this encounter Plan of Treatment Not on filedocumented as of this encounter Visit Diagnoses Diagnosis Primary hypercoagulable state - Primary documented in this encounter
--- OUTSIDE RECORDS SUMMARY | 2019-09-01 14:07 | XMS REPORT | Encounter Summary ---
Author Author [facility] [place], [place], [place] Areas Organization [facility], [place], [place], [place] Areas Address Unknown Phone Unavailable Care Team Providers Care Acoustical Carpenter Name Role Phone Jose CoronaKristie DO PCP Encounter Details Care Team Description Date Type Department Selvin Escobedo MD 100 [facility] [place] [address] Unspecified Chest Pain (Primary Dx) 02/24/2009 Outpatient JOPL Conversion Historical [facility] [place] [address] Social History Date Tobacco Use Types Packs/Day [...]
--- OUTSIDE RECORDS SUMMARY | 2019-09-01 14:07 | XMS REPORT | Encounter Summary ---
Author Author [facility], [place], [place], [place], [place] Areas Organization [facility], [place], [place], [place], [facility] Address Unknown Phone Unavailable Care Team Providers Care R D Manager Name Role Phone Jose CoronaKristie DO PCP Encounter Details Care Team Description Date Type Department Edy Maldonado MD [address] [facility] [address] [place] [id number] Conversion, History Unspecified Chest Pain (Primary Dx) 08/13/2009 Inpatient [facility] 3E Historical CARDIAC SURGERY [address] [place] [phone] Social History Date Tobacco Use Types Packs/Day [...]
--- OUTSIDE RECORDS SUMMARY | 2019-09-01 14:07 | XMS REPORT | Encounter Summary ---
Author Author [facility], [place], [place], [place], [place] Areas Organization [facility], [place], [place], [place], [place] Areas Address Unknown Phone Unavailable Care Team Providers Care Boiler Operator Name Role Phone Jose CoronaKristie DO PCP Encounter Details Care Team Description Date Type Department Chuyita Briscoe MD [address] [place] [phone] Chronic Airway Obstruction, not Elsewher e Classified (Primary Dx); Other Chronic Pulmonary Heart Diseases 08/13/2009 Outpatient [facility] Conversion Historical [address] [place] [address] Social History Date Tobacco Use Types Packs/Day [...] not elsewhe re classified - Primary Other chronic pulmonary heart diseases documented in this encounter
--- OUTSIDE RECORDS SUMMARY | 2019-09-01 14:07 | XMS REPORT | Encounter Summary ---
Author Author [facility], [place], [place], [facility] Organization [facility], [place], [place], [facility] Address Unknown Phone Unavailable Care Team Providers Care Weaver Narrow Fabrics Name Role Phone Jose CoronaKristie DO PCP Encounter Details Care Team Description Date Type Department Zaid Vergara MD [address] [place] [address] [address] [place] [address] Acute and Chronic Respiratory Failure (P rimary Dx); Obstructive Chronic Bronchitis with Exacerbation 03/16/2009 Outpatient [facility] Conversion Historical [address] [place] [address] Social History Date Tobacco Use Types Packs/Day [...]
--- OUTSIDE RECORDS SUMMARY | 2019-09-01 14:07 | XMS REPORT | Encounter Summary ---
Author Author [facility] [place], [place], [place], [facility] Organization [facility], [place], [place], [facility] Address Unknown Phone Unavailable Care Team Providers Care Boots And Shoes Supervisor Name Role Phone Jose Corona Ciaran DO PCP Encounter Details Care Team Description Date Type Department Yosef Melendez, DO [address] [facility] [place], [place] [id number] Other Diseases of Lung, not Elsewhere Cl assified (Primary Dx); Shortness of Breath 03/16/2009 Outpatient [facility] Conversion Historical [facility] [place] [address] Social History Date Tobacco Use Types Packs/Day Years Used Never Assessed Sex Assigned at Date Recorded Not on file Industry Job Start Date Occupation Not on file Not on file Not on file Travel End Travel History Travel Start No recent travel history available. documented as of this encounter Plan of Treatment Not on filedocumented as of this encounter Visit Diagnoses Diagnosis Other diseases of lung, not elsewhere c lassified - Primary Shortness of breath documented in this encounter
--- OUTSIDE RECORDS SUMMARY | 2019-09-01 14:07 | XMS REPORT | Encounter Summary ---
Author Author [facility], [place], [place], [place] Areas Organization [facility], [place], [place], [place] Areas Address Unknown Phone Unavailable Care Team Providers Care Yard Caller Name Role Phone Jose CoronaKristie DO PCP Encounter Details Care Team Description Date Type Department Sourav Goins MD [address] [facility] [address] [place] [address] Shortness of Breath (Primary Dx) 05/07/2009 Outpatient [facility] Conversion Historical [address] [place] [address] [address] Social History Date Tobacco Use Types Packs/Day [...]
--- OUTSIDE RECORDS SUMMARY | 2019-09-01 14:07 | XMS REPORT | Encounter Summary ---
Author Author [facility], [place], [place], [place], [place] Areas Organization [facility], [place], [place], [place], [place] Areas Address Unknown Phone Unavailable Care Team Providers Care Data Sciences Director Name Role Phone Jose Corona Ciaran DO PCP Encounter Details Care Team Description Date Type Department Ludwin Alfred MD [address] [place] [address] [phone] Conversion, History Obstructive Chronic Bronchitis with Exac erbation (Primary Dx) 05/07/2009 Inpatient [facility] Medical Surgical [address] [place] [phone] Social History Date Tobacco Use Types Packs/Day [...]
--- OUTSIDE RECORDS SUMMARY | 2019-09-01 14:07 | XMS REPORT | Encounter Summary ---
Author Author [facility], [place], [place], [place], [place] Areas Organization [facility], [place], [place], [place], [place] Areas Address Unknown Phone Unavailable Care Team Providers Care Service Provider Name Role Phone Jose CoronaKristie DO PCP Encounter Details Care Team Description Date Type Department Emre Magallanes MD [address] [address] Abdominal Pain, Generalized (Primary Dx) ; Other Specified Circulatory System Disorders 05/20/2009 Outpatient [facility] Conversion Historical [facility] [place] [address] Social History Date Tobacco Use Types Packs/Day [...] this encounter Visit Diagnoses Diagnosis Abdominal pain, generalized - Primary Other specified circulatory system diso rders documented in this encounter
--- OUTSIDE RECORDS SUMMARY | 2019-09-01 14:07 | XMS REPORT | Encounter Summary ---
Author Author [facility], [place], [place], [place] [facility] Organization [facility], [place], [place], [facility] Address Unknown Phone Unavailable Care Team Providers Care Bisque Finisher Name Role Phone Jose CoronaKristie DO PCP Encounter Details Care Team Description Date Type Department Zaid Vergara MD [address] [place] [address] [address] [place] [address] Acute and Chronic Respiratory Failure (P rimary Dx); Obstructive Chronic Bronchitis with Exacerbation 03/16/2009 Outpatient [facility] Conversion Historical [address] [place] [address] Social History Date Tobacco Use Types Packs/Day [...]
--- OUTSIDE RECORDS SUMMARY | 2019-09-01 14:07 | XMS REPORT | Encounter Summary ---
Author Author [facility] [place], [place], [place] Areas Organization [facility], [place], [place], [place], [place] Areas Address Unknown Phone Unavailable Care Team Providers Care Distribution Collection Operator Name Role Phone Jose Corona Ciaran DO PCP Encounter Details Care Team Description Date Type Department Chuckie Little, DO 100 [facility] [place] [address] Obstructive Chronic Bronchitis with Exac erbation (Primary Dx); Tobacco Use Disorder 05/07/2009 Outpatient [facility] Conversion Historical [facility] [place] [address] Social History Date Tobacco Use Types Packs/Day [...] chronic bronchitis with exa cerbation - Primary Tobacco use disorder documented in this encounter
--- OUTSIDE RECORDS SUMMARY | 2019-09-01 14:07 | XMS REPORT | Encounter Summary ---
Author Author [facility], [place], [place], [place], [place] Areas Organization [facility], [place], [place], [place], [place] Areas Address Unknown Phone Unavailable Care Team Providers Care Box Car Bracer Name Role Phone Jose CoronaKristie DO PCP Encounter Details Care Team Description Date Type Department Selvin Escobedo MD 100 [facility] [place] [address] Pain in Joint, Pelvic Region and Thigh ( Primary Dx) 02/24/2009 Outpatient [facility] Conversion Historical [facility] [place] [address] Social History Date Tobacco Use Types Packs/Day [...] this encounter Visit Diagnoses Diagnosis Pain in joint, pelvic region and thigh - Primary documented in this encounter
--- OUTSIDE RECORDS SUMMARY | 2019-09-01 14:07 | XMS REPORT | Encounter Summary ---
Author Author [facility] [place], [place], [facility] Organization [facility] [place], [place], [facility] Address Unknown Phone Unavailable Care Team Providers Care Criminal Psychologist Name Role Phone Chloe Jose Ciaran DO PCP Encounter Details Care Team Description Date Type Department Jonathan Garcia, DO 100 [facility] [place] [address] [phone] Ed, Physician Embl Suprfcl Ves Low Ext (Primary Dx) 02/03/2009 Emergency [facility] in Emergency Services [address] [place] [address] [place] [phone] Social History Date Tobacco Use Types Packs/Day Years Used Never Assessed Sex Assigned at Date Recorded Not on file Industry Job Start Date Occupation Not on file Not on file Not on file Travel End Travel History Travel Start No recent travel history available. documented as of this encounter Plan of Treatment Not on filedocumented as of this encounter Visit Diagnoses Diagnosis Venous embolism and thrombosis of super ficial vessels of lower extremity - Primary documented in this encounter
--- OUTSIDE RECORDS SUMMARY | 2019-09-01 14:07 | XMS REPORT | Encounter Summary ---
Author Author [facility], [place], [place], [place], [facility] Organization [facility], [place], [place], [place], [facility] Address Unknown Phone Unavailable Care Team Providers Care Journeyman Electrician Name Role Phone Jose CoronaKristie DO PCP Encounter Details Care Team Description Date Type Department Crys Caldera MD 100 [facility] [address] [place] [address] Conversion, History Acute and Chronic Respiratory Failure (P rimary Dx) 03/16/2009 Inpatient [facility] Historical CARDIOVASCULAR ICU [address] [place] [address] [place] [phone] Social History Date Tobacco Use Types Packs/Day [...] Acute and chronic respiratory failure - Primary documented in this encounter
--- OUTSIDE RECORDS SUMMARY | 2019-09-01 14:07 | XMS REPORT | Encounter Summary ---
Author Author [facility] [place], [place], [facility] Organization [facility] [place], [place], [facility] Address Unknown Phone Unavailable Care Team Providers Care Facility Manager Histology Name Role Phone Jose Cornoa Ciaran DO PCP Encounter Details Care Team Description Date Type Department Jonathan Garcia, DO 100 [facility] [place] [id number] Other Dyspnea and Respiratory Abnormalit y (Primary Dx); Other Abnormal Glucose 04/08/2009 Outpatient [facility]OP[facility] Conversion Historical [facility] [place] [address] Social History Date Tobacco Use Types Packs/Day Years Used Never Assessed Sex Assigned at Date Recorded Not on file Industry Job Start Date Occupation Not on file Not on file Not on file Travel End Travel History Travel Start No recent travel history available. documented as of this encounter Plan of Treatment Not on filedocumented as of this encounter Visit Diagnoses Diagnosis Other dyspnea and respiratory abnormali ty - Primary Other abnormal glucose documented in this encounter
--- OUTSIDE RECORDS SUMMARY | 2019-09-01 14:07 | XMS REPORT | Encounter Summary ---
Author Author [facility], [place], [place], [place], [place] Areas Organization [facility], [place], [place], [place], [place] Areas Address Unknown Phone Unavailable Care Team Providers Care Spindle Carver Name Role Phone Jose CoronaKristie DO PCP Encounter Details Care Team Description Date Type Department Chuyita Briscoe MD [address] [place] [phone] Acute and Chronic Respiratory Failure (P rimary Dx); Obstructive Chronic Bronchitis with Exacerbation 05/07/2009 Outpatient [facility] Conversion Historical [address] [place] [address] Social History Date Tobacco Use Types Packs/Day [...]
--- OUTSIDE RECORDS SUMMARY | 2019-09-01 14:08 | XMS REPORT | Encounter Summary ---
Author Author [facility], [place], [place], [place], [place] Areas Organization [facility], Jah GarciaRosamaria[place], [place], [place] Areas Address Unknown Phone Unavailable Care Team Providers Care Substitute Nurse Name Role Phone Jose CoronaKristie DO PCP Encounter Details Care Team Description Date Type Department Jonathan Razo MD [address] [place] [address] [place] [phone] Ed, Physician Painful Respiration (Primary Dx) 08/01/2005 Emergency [facility] in Emergency Services [address] [place] [address] [place] [phone] Social History Date Tobacco Use Types Packs/Day [...] Visit Diagnoses Diagnosis Painful respiration - Primary documented in this encounter
--- OUTSIDE RECORDS SUMMARY | 2019-09-01 14:08 | XMS REPORT | Encounter Summary ---
Author Author [facility] [place], [place], [facility] Organization [facility], [place], [place], [facility] Address Unknown Phone Unavailable Care Team Providers Care Territory Sales Representative Name Role Phone Jose Corona Ciaran DO PCP Encounter Details Care Team Description Date [place] [address] [address] Edema (Primary Dx) 07/04/2008 Inpatient [facility] Laboratory Se rvices Historical [place] [address] [place] [phone] Social History Date Tobacco Use Types Packs/Day Years Used Never Assessed Sex Assigned at Date Recorded Not on file Industry Job Start Date Occupation Not on file Not on file Not on file Travel End Travel History Travel Start No recent travel history available. documented as of this encounter Plan of Treatment Not on filedocumented as of this encounter Visit Diagnoses Diagnosis Edema - Primary documented in this encounter
--- OUTSIDE RECORDS SUMMARY | 2019-09-01 14:08 | XMS REPORT | Encounter Summary ---
Author Author [facility], [place], [place], [place], [place] Areas Organization [facility], [place], [place], [place], [facility] Address Unknown Phone Unavailable Care Team Providers Care Seam Rubber Name Role Phone Jose CoronaKristie DO PCP Encounter Details Care Team Description Date Type Department Amaya Ferrer MD [address] [place], [place] [address] Conversion, History Cellulitis and Abscess of Leg, except Fo ot (Primary Dx) 04/15/2008 Inpatient [facility] Historical ONCOLOGY [address] [facility] [place] [phone] Social History Date Tobacco Use Types Packs/Day Years Used Never Assessed Sex Assigned at Date Recorded Not on file Industry Job Start Date Occupation Not on file Not on file Not on file Travel End Travel History Travel Start No recent travel history available. documented as of this encounter Plan of Treatment Not on filedocumented as of this encounter Visit Diagnoses Diagnosis Cellulitis and abscess of leg, except f oot - Primary documented in this encounter
--- OUTSIDE RECORDS SUMMARY | 2019-09-01 14:08 | XMS REPORT | Encounter Summary ---
Author Author [facility], [place], [place], [place], [place] Areas Organization [facility], Jah Garcia, [place], [place], [place] Areas Address Unknown Phone Unavailable Care Team Providers Care Manager Spa Name Role Phone Jose CoronaKristie DO PCP Encounter Details Care Team Description Date Type Department Nicolás Mariee MD NO ADDRESS ON FILE Ed, Physician Abdominal Pain, Generalized (Primary Dx) 01/25/2008 Emergency [facility] in Emergency Services [address] [facility] [place] [phone] Social History Date Tobacco Use Types Packs/Day [...] Diagnoses Diagnosis Abdominal pain, generalized - Primary documented in this encounter
--- OUTSIDE RECORDS SUMMARY | 2019-09-01 14:08 | XMS REPORT | Encounter Summary ---
Author Author [facility], [place], [place], [place], [place] Organization [facility], [place], [place], [place], [facility] Address Unknown Phone Unavailable Care Team Providers Care Injection Molding Machine Operator Name Role Phone Jose CoronaKristie DO PCP Encounter Details Care Team Description [place] [address] [facility] [place] [address] Conversion, History Acute Respiratory Failure (Primary Dx) 01/20/2009 Inpatient [facility] Historical ONCOLOGY [address] [place], [place] [address] [phone] Social History Date Tobacco Use Types Packs/Day [...]
--- OUTSIDE RECORDS SUMMARY | 2019-09-01 14:08 | XMS REPORT | Encounter Summary ---
Author Author [facility], [place], [place], [place], [place] Areas Organization [facility], [place], [place], [place], [place] Areas Address Unknown Phone Unavailable Care Team Providers Care Fisheries Management Biologist Name Role Phone Chloe Jose K. DO PCP Encounter Details Care Team Description Date Type Department Chuckie Little, DO 100 [facility] [place] [address] [phone] Ed, Physician Unspecified Site of Ankle Sprain and Str ain (Primary Dx) 2005 Emergency [facility] in Emergency Services [address] [place] [address] [place] [phone] Social History Date Tobacco Use Types Packs/Day Years Used Never Assessed Sex Assigned at Date Recorded Not on file Industry Job Start Date Occupation Not on file Not on file Not on file Travel End Travel History Travel Start No recent travel history available. documented as of this encounter Plan of Treatment Not on filedocumented as of this encounter Visit Diagnoses Diagnosis Sprain of ankle, unspecified site - Madhavi alberto documented in this encounter
--- OUTSIDE RECORDS SUMMARY | 2019-09-01 14:08 | XMS REPORT | Encounter Summary ---
Author Author [facility] [place], [place], [facility] Organization [facility], [place], [place], [place] Areas Address Unknown Phone Unavailable Care Team Providers Care Laborer Rags Name Role Phone Jose CoronaKristie DO PCP Encounter Details Care Team Description Date Type Department Nicolás Soto MD [address] [address] [place] [address] HEMATURIA (Primary Dx) 02/22/2005 Inpatient [facility] [address] [facility] [place] [address] Social History Date Tobacco Use Types Packs/Day Years Used Never Assessed Sex Assigned at Date Recorded Not on file Industry Job Start Date Occupation Not on file Not on file Not on file Travel End Travel History Travel Start No recent travel history available. documented as of this encounter Plan of Treatment Not on filedocumented as of this encounter Visit Diagnoses Diagnosis Hematuria - Primary documented in this encounter
--- OUTSIDE RECORDS SUMMARY | 2019-09-01 14:08 | XMS REPORT | Encounter Summary ---
Author Author [facility], [place], [place], [place], [place] Areas Organization [facility] [place], [place], [place] Areas Address Unknown Phone Unavailable Care Team Providers Care Lead Advisor Name Role Phone Jose Corona Ciaran DO PCP Encounter Details Care Team Description Date Type Department Wade Renee MD [address] [place], [place] [phone] Unspecified Hypothyroidism (Primary Dx) 06/24/2005 Inpatient [facility] Laboratory Se rvices Historical [place] [address] [place] [phone] Social History Date Tobacco Use Types Packs/Day Years Used Never Assessed Sex Assigned at Date Recorded Not on file Industry Job Start Date Occupation Not on file Not on file Not on file Travel End Travel History Travel Start No recent travel history available. documented as of this encounter Plan of Treatment Not on filedocumented as of this encounter Visit Diagnoses Diagnosis Unspecified hypothyroidism - Primary documented in this encounter
--- OUTSIDE RECORDS SUMMARY | 2019-09-01 14:08 | XMS REPORT | Encounter Summary ---
Author Author [facility], [place], [place], [place], [facility] Organization [facility], [place], [place], [facility] Address Unknown Phone Unavailable Care Team Providers Care Site Specialist Name Role Phone Jose Corona Ciaran DO PCP Encounter Details Care Team Description Date Type Department Bryan [place] MD 100 [place] [address] Conversion, History Hyposmolality and/or Hyponatremia (Prima ry Dx) 01/11/2009 Inpatient [facility] 3E Historical CARDIAC SURGERY [address] [place] [address] [place] [phone] Social History Date Tobacco Use Types Packs/Day Years Used Never Assessed Sex Assigned at Date Recorded Not on file Industry Job Start Date Occupation Not on file Not on file Not on file Travel End Travel History Travel Start No recent travel history available. documented as of this encounter Plan of Treatment Not on filedocumented as of this encounter Visit Diagnoses Diagnosis Hyposmolality and/or hyponatremia - Madhavi alberto documented in this encounter
--- OUTSIDE RECORDS SUMMARY | 2019-09-01 14:08 | XMS REPORT | Encounter Summary ---
Author Author [facility], [place], [place], [place], [place] Areas Organization [facility], [place], [place], [place], [place] Areas Address Unknown Phone Unavailable Care Team Providers Care Assistant Financial Accountant Name Role Phone Jose CoronaKristie DO PCP Encounter Details Care Team Description [place] [address] [address] [facility] [place] [address] Conversion, History Cellulitis and Abscess of Leg, except Fo ot (Primary Dx) 03/21/2008 Inpatient [facility] in Historical Medical Surgical 28[address] [facility] [place] [phone] Social History Date Tobacco Use Types Packs/Day [...]
--- OUTSIDE RECORDS SUMMARY | 2019-09-01 14:08 | XMS REPORT | Encounter Summary ---
Author Author [facility], [place], [place], [place], [place] Areas Organization [facility], [place], [place], [place], [place] Areas Address Unknown Phone Unavailable Care Team Providers Care Mutuel Clerk Name Role Phone Jose Corona Ciaran DO PCP Encounter Details Care Team Description Date [place] [address] [place] [address] Emergency Department [place] [id number] Ed, Physician Sebaceous Cyst (Primary Dx) 01/19/[address] [facility] in Emergency Services [address] [place] [address] [place] [phone] Social History Date Tobacco Use Types Packs/Day Years Used Never Assessed Sex Assigned at Date Recorded Not on file Industry Job Start Date Occupation Not on file Not on file Not on file Travel End Travel History Travel Start No recent travel history available. documented as of this encounter Plan of Treatment Not on filedocumented as of this encounter Visit Diagnoses Diagnosis Sebaceous cyst - Primary documented in this encounter
--- OUTSIDE RECORDS SUMMARY | 2019-09-01 14:08 | XMS REPORT | Encounter Summary ---
Author Author [facility], [place], [place], [place], [place] Areas Organization [facility], [place], [place], [place], [place] Areas Address Unknown Phone Unavailable Care Team Providers Care Ramp Attendant Name Role Phone Chloe Jose Ciaran DO PCP Encounter Details Care Team Description Date Type Department Nicolás Javed, DO [address], [place] [address] Ed, Physician ABDOMINAL PAIN OTHER SPEC SITE (Primary Dx) 11/21/2004 Emergency [facility] in Emergency Services [address] [place] [phone] Social History Date Tobacco Use Types Packs/Day [...]
--- OUTSIDE RECORDS SUMMARY | 2019-09-01 14:08 | XMS REPORT | Encounter Summary ---
Author Author [facility], Jah Garcia, [place], [place], [place] Areas Organization [facility], [place], [place], [place], [place] Address Unknown Phone Unavailable Care Team Providers Care Executive Wellness Programs Director Name Role Phone Jose Corona Ciaran DO PCP Encounter Details Care Team Description Date Type Department Wade Renee MD [address] [place], [place] [phone] Encounter for Long-Term (Current) Use of Anticoagulants (Primary Dx) 08/25/2005 Inpatient [facility] Laboratory Se rvices Historical [place] [address] [place] [phone] Social History Date Tobacco Use Types Packs/Day Years Used Never Assessed Sex Assigned at Date Recorded Not on file Industry Job Start Date Occupation Not on file Not on file Not on file Travel End Travel History Travel Start No recent travel history available. documented as of this encounter Plan of Treatment Not on filedocumented as of this encounter Visit Diagnoses Diagnosis long-term (current) use of anticoagulan ts - Primary Long-term (current) use of anticoagulan ts documented in this encounter
--- OUTSIDE RECORDS SUMMARY | 2019-09-01 14:08 | XMS REPORT | Encounter Summary ---
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
--- OUTSIDE RECORDS SUMMARY | 2019-09-01 14:08 | XMS REPORT | Encounter Summary ---
Author Author [facility], [place], [place], [place], [place] Areas Organization [facility], [place], [place], [place] Areas Address Unknown Phone Unavailable Care Team Providers Care Door Fitter Name Role Phone Jose Corona Ciaran DO PCP Encounter Details Care Team Description Date Type Department Wade Renee MD [address] [place], [place] [phone] Lump or Mass in Breast (Primary Dx) 08/19/2005 Inpatient [facility] [place] [facility] [address] [place] [phone] Social History Date Tobacco Use Types Packs/Day Years Used Never Assessed Sex Assigned at Date Recorded Not on file Industry Job Start Date Occupation Not on file Not on file Not on file Travel End Travel History Travel Start No recent travel history available. documented as of this encounter Plan of Treatment Not on filedocumented as of this encounter Visit Diagnoses Diagnosis Lump or mass in breast - Primary documented in this encounter
--- OUTSIDE RECORDS SUMMARY | 2019-09-01 14:08 | XMS REPORT | Encounter Summary ---
Author [facility] [place], [place], [place] [facility] Organization [facility], [place], [place], [facility] Address Unknown Phone Unavailable Care Team Providers Care Service Employee Name Role Phone Jose Corona Ciaran DO PCP Encounter Details Care Team Description [place] [address] [phone] Other Malaise and Fatigue (Primary Dx) 01/07/2009 Inpatient [facility] Laboratory Se rvices Historical [place] [address] [place] [phone] Social History Date Tobacco Use Types Packs/Day [...]
--- OUTSIDE RECORDS SUMMARY | 2019-09-01 14:08 | XMS REPORT | Encounter Summary ---
Author Author [facility] [place], [place], [facility] Organization [facility] [place], [place], [place] Address Unknown Phone Unavailable Care Team Providers Care Insurance Special Agent Name Role Phone Jose CoronaKristie DO PCP Encounter Details Care Team Description Date Type Department Sj Ed, Physician Suhas Grimaldo III, DO [address] [place] [address] Other Specified Cardiac Dysrhythmias; Right Bundle Branch Block; Systemic Lupus Erythematosus; Unspecified Asthma; Other Emphysema; Personal History of Allergy to Analgesic Agent; Personal History of Allergy to Other Specified Medicinal Agents; Coronary Atherosclerosis of [place] Coronary Artery; Pure Hypercholesterolemia; Tobacco Use Disorder; Personal History of Venous Thrombosis and Embolism; Postsurgical Percutaneous Transluminal Coronary Angioplasty Status; Acquired Absence of Organ, Genital Organs; Other Acquired Absence of Organ 11/17/2007 Emergency [facility] Emergency Medicine [address] [place] [address] Social History Date Tobacco Use Types Packs/Day [...] Procedure Name Priority Date/Time Associated Diag nosis NM LUNG VENT PERF Routine 11/17/2007 7:00 AM CDT XR CHEST PA OR AP 1 VW Routine 11/17/2007 4:29 AM CDT CBC WITH DIFFERENTIAL Stat 11/17/2007 4:17 AM CDT CARDIAC ENZYMES Stat 11/17/2007 4:16 AM CDT PTT Stat 11/17/2007 4:16 AM CDT PROTIME-INR Stat 11/17/2007 4:16 AM CDT BASIC METABOLIC PANEL Stat 11/17/2007 4:16 AM CDT documented in this encounter Results * NM LUNG VENT PERF (11/17/2007 7:00 AM CDT) Specimen Narrative Performed At Radionuclide Ventilation/Perfusion Lung Imaging: [facility] Radiopharmaceutical: Xe-133 (Xenon gas) Dose: 15.6 mCi Radiopharmaceutical: Tc-99m MAA (tech netium-99m albumin aggregated) Dose: 6.49 mCi Reason for Consultation: Chest pain, history of pulmonary embolism, asthma, COPD for evaluation of pulmonary function: Possible acute pulm onary embolism Radionuclide Single Gaseous Ventilation Pulmonary Imaging: The patient was imaged in the posterior projection in supine position following single breath, rebreathing, and washout of the gaseous agent. Initial distribution of tracer is decreased at the left base with subsequent delayed washout bi basally left more prominent than right. A chest x-ray was not available for reviewed at the time of i nterpretation. Radionuclide Particulate Perfusion Pulm onary Imaging: Pulmonary arterial perfusion distributi on was imaged in multiple projections with the patient in the supine position. Perfusion distributi on is modestly irregular and decreased at the left base matched to the ventilation abnormality.. No abso lute segmental perfusion defects are present. Impression: There are no findings suggestive of acu te, chronic or microembolization. Findings at the left base consistent with any pulmonary parenchym al/bronchoalveolar abnormality: Consider a pneumonitic process. These findings were verbally conveyed t o the attending physician. - Dictated By: Vianey Santiago Electronically Signed By: Paul dillard M.D. Date Signed: 11/17/07 Procedure Note Interface, [facility] [place] Radiology Results - 11/17/2007 8:26 AM CDT Radionuclide Ventilation/Perfusion Lung Imaging: Radiopharmaceutical: Xe-133 (Xenon gas) Dose: 15.6 mCi Radiopharmaceutical: Tc-99m MAA (technetium-99m albumin aggregated) Dose: 6.49 mCi Reason for Consultation: Chest pain, history of pulmonary embolism, asthma, COPD for evaluation of pulmonary function: Possible acute pulmonary embolism Radionuclide Single Gaseous Ventilation Pulmonary Imaging: The patient was imaged in the posterior projection in supine position following single breath, rebreathing, and washout of the gaseous agent. Initial distribution of tracer is decreased at the left base with subsequent delayed washout bibasally left more prominent than right. A chest x-ray was not available for reviewed at the time of interpretation. Radionuclide Particulate Perfusion Pulmonary Imaging: Pulmonary arterial perfusion distribution was imaged in multiple projections with the patient in the supine position. Perfusion distribution is modestly irregular and decreased at the left base matched to the ventilation abnormality.. No absolute segmental perfusion defects are present. Impression: There are no findings suggestive of acute, chronic or microembolization. Findings at the left base consistent with any pulmonary parenchymal/bronchoalveolar abnormality: Consider a pneumonitic process. These findings were verbally conveyed to the attending physician. - Dictated By: Paul Joe M.D. Electronically Signed By: Paul Joe M.D. Date Signed: 11/17/07 Performing Organization Address City/State/Zipcode Ph one Number INTERFACE SYSTEM INTERFACE SYSTEM Refer to clinic/hospital department * XR CHEST PA OR AP (11/17/2007 4:29 AM CDT) Specimen Narrative Performed At Exam: Chest - Portable INTERFACE SYSTEM Date/Time of Exam: Nov 17, 2007 4:29:45 AM History: Chest pain. Findings: No comparison. Surgical cli ps are present at the base of the neck on the right. They are no pulmonary infiltrates. There is some bl unting of the right costophrenic angle which is probably secondary to minimal pleural thickening. The hear t and pulmonary vasculature are normal. Impression: Postoperative changes. Prob able chronic pleural thickening at the right costophrenic angle. No definite evidence of active disease. - Dictated By: Bernie Nam MD Electronically Signed By: Bernie Nam MD Date Signed: 11/18/07 JAW Procedure Note Interface, [facility] [place]coming Radiology Results - 11/18/2007 12:29 PM CDT Exam: Chest - Portable Date/Time of Exam: Nov 17, 2007 4:29:45 AM History: Chest pain. Findings: No comparison. Surgical clips are present at the base of the neck on the right. They are no pulmonary infiltrates. There is some blunting of the right costophrenic angle which is probably secondary to minimal pleural thickening. The heart and pulmonary vasculature are normal. Impression: Postoperative changes. Probable chronic pleural thickening at the right costophrenic angle. No definite evidence of active disease. - Dictated By: Bernie Nam MD Electronically Signed By: Bernie Nam MDKY Date Signed: 11/18/07 JAW Performing Organization Address City/State/Zipcode Ph one Number INTERFACE SYSTEM INTERFACE SYSTEM Refer to clinic/hospital department * CBC WITH DIFFERENTIAL (11/17/2007 4:17 AM CDT) MCV 96.4 84.0 - 103.0 Fl [facility] MPV 10.6 8.9 - 12.8 Fl [facility] BASOPHILS 0.1 0.0 - 0.2 K/ul [facility] BASOPHILS 0.7 0.0 - 1.0 % [facility] HEMOGLOBIN 13.2 12.0 - 16.0 g/dL [facility] RDW 12.4 11.0 - 14.5 % [facility] MONOCYTE 0.5 0.1 - 0.6 K/ul [facility] MONOCYTES 6.6 2.0 - 10.0 % [facility] WBC 7.3 4.5 - 11.0 K/ul [facility] MCH 34.3 (H) 27.0 - 34.0 pg [facility] NEUTROPHIL 4.5 2.0 - 8.0 K/ul [facility] NEUTROPHILS 62.1 42.2 - 75.2 % [facility] HEMATOCRIT 37.1 36.0 - 46.0 % [facility] EOSINOPHILS 1.9 0.0 - 7.0 % [facility] PLATELETS 244 140 - 440 K/ul [facility] EOSINOPHIL 0.1 0.0 - 0.7 K/ul [facility] RBC 3.85 (L) 4.20 - 5.40 Mil/ul [facility] LYMPHOCYTES 28.7 24.0 - 44.0 % [facility] MCHC 35.6 (H) 30.0 - 35.0 g/dL [facility] LYMPHOCYTE 2.1 1.2 - 4.0 K/ul [facility] Specimen Blood specimen (specimen) Performing Organization Address [facility] Ph one Number [facility] CLIA# [id number] [place], [place] [address] [facility] [address] [facility] CLIA# [id number] [facility] [place] [address] [facility] * PTT (11/17/2007 4:16 AM CDT) Pathologist [facility] PTT 31.2 22.5 - 36.5 Secs [facility] Comment: HOSPITAL LAB Therapeutic Range: Hi-level PE/DVT heparin protocol 80.1 -95.0 sec Lo-level PE/DVT heparin protocol 67.1 - 80.0 sec Cardiac Heparin Protocol 67.1 - 85.0 sec Neuro Heparin Protocol 67.1 - 80.0 sec As of 07/06/2007 note change in APTT Normal Range. Specimen Blood specimen (specimen) Performing Organization Address [facility] Ph one Number [facility] CLIA# [id number] [place], [place] [address] [facility] 12[address] [facility] CLIA# [id number] [facility] [place] [address] [facility] * PROTIME-INR (11/17/2007 4:16 AM CDT) INR 0.9 [facility] Comment: HOSPITAL LAB Expected Values for INR: DVT/PE Goal INR 2.5; range 2.0 - 3.0 Valve Replacement Tissue Goal INR 2.5; range 2.0 - 3.0 Mechanical Goal INR 3.0; range 2.5 - 3.5 POST-PR Goal INR 2.5; range 2.0 - 3.0 or Goal 3.0; range 2.5 - 3.5 Atrial Fibrillation Goal INR 2.5; range 2.0 - 3.0 Ischemic Stroke Goal INR 2.5; range 2.0 - 3.0 For additional information see "Guidelines for Anticoagulation" available from the pharmacy Maurilio Duncan [phone] PROTIME 13.7Comment: As of 2007 12.8 - 15.8 Secs [facility] note change in normal range. HOSPITAL LAB Specimen Blood specimen (specimen) Performing Organization Address [facility] CLIA# [id number] [place], [place] [address] [address] [place] [id number] [facility] CLIA# [id number] [facility] [address] [place] [address] * CARDIAC ENZYMES (11/17/2007 4:16 AM CDT) [facility] CKMB 0.7 0.0 - 5.0 ng/mL [facility] TROPONIN I <0.1 0.0 - 1.3 ng/mL [facility] Specimen Blood specimen (specimen) Performing Organization Address [facility]ORY SERVICES CLIA# [id number] [place], [place] [address] LAB CLIA# [id number] [facility] [address] [place] [address] * BASIC METABOLIC PANEL (11/17/2007 4:16 AM CDT) Pathologist [facility] OSMOLALITY, [phone] - 295 mOsm/Kg [facility] CREATININE 0.8 0.7 - 1.2 mg/dL [facility] CALCIUM 10.0 8.4 - 10.5 mg/dL [facility] GLUCOSE 110 70 - 110 mg/dL [facility] CHLORIDE 109 95 - 110 mEq/L [facility] ANION GAP 9 9 - 20 mEq/L [facility] SODIUM 139 136 - 145 mEq/L [facility] BUN 16 7 - 17 mg/dL [facility] CO2 24 22 - 32 mmol/l [facility] POTASSIUM 3.3 (L) 3.5 - 5.0 mEq/L [facility] Specimen Blood specimen (specimen) Performing Organization Address City/State/[facility] [place] Ph one Number [facility] CLIA# [id number] [place], [place] [address] [address] LAB CLIA# [id number] [place] [facility] [address] [place] [address] documented in this encounter Visit Diagnoses Diagnosis Other specified cardiac dysrhythmias(42 7.89) Other specified cardiac dysrhythmias Right bundle branch block Systemic lupus erythematosus Unspecified asthma(493.90) Unspecified asthma Other emphysema Personal history of allergy to analgesi c agent Personal history of allergy to other sp ecified medicinal agents Coronary atherosclerosis of [place] nary artery Pure hypercholesterolemia Tobacco use disorder Personal history of venous thrombosis a nd embolism Postsurgical percutaneous transluminal coronary angioplasty status Acquired absence of organ, genital orga ns Other acquired absence of organ documented in this encounter
--- OUTSIDE RECORDS SUMMARY | 2019-09-01 14:08 | XMS REPORT | Encounter Summary ---
Author Author [facility], Jah Garcia, [place], [place], [place] Areas Organization [facility], [place], [place], [place] Address Unknown Phone Unavailable Care Team Providers Care Blender / Cook Name Role Phone Jose Corona Ciaran DO PCP Encounter Details Care Team Description Date Type Department Wade Renee MD [address] [place], [place] [phone] Encounter for Long-Term (Current) Use of Anticoagulants (Primary Dx) 08/20/2005 Inpatient [facility] Laboratory Se rvices Historical [place] [address] [place] [phone] Social History Date Tobacco Use Types Packs/Day Years Used Never Assessed Sex Assigned at Date Recorded Not on file Industry Job Start Date Occupation Not on file Not on file Not on file Travel End Travel History Travel Start No recent travel history available. documented as of this encounter Plan of Treatment Not on filedocumented as of this encounter Visit Diagnoses Diagnosis halfway (current) use of anticoagulan ts - Primary Long-term (current) use of anticoagulan ts documented in this encounter
--- OUTSIDE RECORDS SUMMARY | 2019-09-01 14:08 | XMS REPORT | Encounter Summary ---
Author Author [facility] [place], [place], [place] Areas Organization [facility] [place], [place], [facility] Address Unknown Phone Unavailable Care Team Providers Care Honing Machine Operator Tool Name Role Phone Jose CoronaKristie DO PCP Encounter Details Care Team Description Date Type Department Anurag Mckeon, [address] [facility] [place] [phone] Ed, Physician PAIN IN LIMB (Primary Dx) 06/19/2005 Emergency [facility] in Emergency Services [address] [place] [address] [place] [phone] Social History Date Tobacco Use Types Packs/Day [...] Diagnoses Diagnosis Pain in limb - Primary documented in this encounter
--- OUTSIDE RECORDS SUMMARY | 2019-09-01 14:08 | XMS REPORT | Encounter Summary ---
Author Author [facility], [place], [place], [place], [place] Areas Organization [facility] [place], [place], [place], [facility] Address Unknown Phone Unavailable Care Team Providers Care Endless Belt Finisher Name Role Phone Jose CoronaKristie DO PCP Encounter Details Care Team Description Date Type Department Denise Benson MD [address] [place] [address] [address] [place] [phone] Conversion, History Unspecified Acute Renal Failure (Primary Dx) 06/25/2008 Inpatient [facility] in [facility] Medical Surgical [address] [facility] [place] [phone] Social History Date Tobacco Use Types Packs/Day Years Used Never Assessed Sex Assigned at Date Recorded Not on file Industry Job Start Date Occupation Not on file Not on file Not on file Travel End Travel History Travel Start No recent travel history available. documented as of this encounter Plan of Treatment Not on filedocumented as of this encounter Visit Diagnoses Diagnosis Acute kidney failure, unspecified - Madhavi alberto documented in this encounter
--- OUTSIDE RECORDS SUMMARY | 2019-09-01 14:08 | XMS REPORT | Encounter Summary ---
Author Author [facility], [place], [place], [place], [place] Areas Organization [facility], [place], [place], [place], [place] Areas Address Unknown Phone Unavailable Care Team Providers Care Missile And Missile Checkout Technician Name Role Phone Chloe Jose K. DO PCP Encounter Details Care Team Description Date Type Department Mikal Huffman, DO [address] [place] [address] Abdominal or Pelvic Swelling, Mass or Meg mp, Unspecified Site (Primary Dx) 03/20/2008 Inpatient Historical [place] O DC Rad Historical Social History Date Tobacco Use [...] of this encounter Visit Diagnoses Diagnosis Abdominal or pelvic swelling, mass or l ump, unspecified site - Primary documented in this encounter
--- OUTSIDE RECORDS SUMMARY | 2019-09-01 14:08 | XMS REPORT | Encounter Summary ---
Author Author [facility], [place], [place], [place] Organization [facility] [place], [place], [facility] Address Unknown Phone Unavailable Care Team Providers Care Early Childhood Education Worker Name Role Phone Jose Corona Ciaran DO PCP Encounter Details Care Team Description Date Type Department Wade Renee MD [address] [place], [place] [phone] [employer] BUILDING CONTRACTOR ANTICOAG USE (Primar y Dx) 11/23/2004 Inpatient [facility] Laboratory Se rvices Historical [place] [address] [place] [phone] Social History Date Tobacco Use Types Packs/Day Years Used Never Assessed Sex Assigned at Date Recorded Not on file Industry Job Start Date Occupation Not on file Not on file Not on file Travel End Travel History Travel Start No recent travel history available. documented as of this encounter Plan of Treatment Not on filedocumented as of this encounter Visit Diagnoses Diagnosis senior living (current) use of anticoagulan ts - Primary Long-term (current) use of anticoagulan ts documented in this encounter
--- OUTSIDE RECORDS SUMMARY | 2019-09-01 14:08 | XMS REPORT | Encounter Summary ---
Author Author [facility] [place], [place], [facility][Note 2] Organization [facility] [place], [place], [facility][Note 2] Address Unknown Phone Unavailable Care Team Providers Care Service Delivery Analyst Name Role Phone ChloeJose tellez DO PCP Encounter Details Care Team Description Date Type Department Conversion, History 08/25/2006 Inpatient Historical [place] O JAZLYN Rad Historical Social History Date Tobacco Use [...]
--- OUTSIDE RECORDS SUMMARY | 2019-09-01 14:08 | XMS REPORT | Encounter Summary ---
Author Author [facility] [place], [place], [facility] Organization [facility], [place], [facility] Address Unknown Phone Unavailable Care Team Providers Care Precinct Commanding Officer Name Role Phone Jose Corona Ciaran DO PCP Encounter Details Care Team Description Date Type Department Conversion, History Swelling, Mass, or Lump in Head and Neck (Primary Dx) 09/06/2006 Inpatient Historical [place] O DC Rad Historical Social History Date [...] as of this encounter Visit Diagnoses Diagnosis Swelling, mass, or lump in head and nec k - Primary documented in this encounter
--- OUTSIDE RECORDS SUMMARY | 2019-09-01 14:08 | XMS REPORT | Encounter Summary ---
Author Author [facility], [place], [place], [place], [facility] Organization [facility], Jah Garcia, [place], [place], [facility] Address Unknown Phone Unavailable Care Team Providers Care Platform Man Name Role Phone Jose Corona DO PCP Encounter Details Care Team Description Date Type Department Wade Renee MD [address] [place], [place] [phone] ABDOMINAL PAIN UNSPEC SITE (Primary Dx) 05/25/2005 Inpatient Historical [place] DC Rad Historical Social History Date Tobacco [...]
--- OUTSIDE RECORDS SUMMARY | 2019-09-01 14:08 | XMS REPORT | Encounter Summary ---
Author Author [facility] [place], [place], [place], [place] [facility] Organization [facility] Jah GarciaRosamaria[place]owl[place], [place], [facility] Address Unknown Phone Unavailable Care Team Providers Care Credit Administration Officer Name Role Phone Jose Corona Ciaran DO PCP Encounter Details Care Team Description Date Type Department Wade Renee MD [address] [place], [place] [phone] AFTERCARE RESIDENT ADVISOR ANTICOAG USE (Primar y Dx) 05/14/2005 Inpatient [facility] Laboratory Se rvices Historical [place] [address] [place] [phone] Social History Date Tobacco Use Types Packs/Day Years Used Never Assessed Sex Assigned at Date Recorded Not on file Industry Job Start Date Occupation Not on file Not on file Not on file Travel End Travel History Travel Start No recent travel history available. documented as of this encounter Plan of Treatment Not on filedocumented as of this encounter Visit Diagnoses Diagnosis [facility] (current) use of anticoagulan ts - Primary Long-term (current) use of anticoagulan ts documented in this encounter
--- OUTSIDE RECORDS SUMMARY | 2019-09-01 14:08 | XMS REPORT | Encounter Summary ---
Author Author [facility], [place], [place], [place], [place] Areas Organization [facility], [place], [place], [place] Address Unknown Phone Unavailable Care Team Providers Care Welding Equipment Sales Representative Name Role Phone Jsoe Corona Ciaran DO PCP Encounter Details Care Team Description Date Type Department Julianna Liu MD [address] [place] [address] Special Screening for Osteoporosis (Prim salome Dx) 12/28/[address] [facility] [address] [facility] [place] [address] [place] [phone] Social History Date Tobacco Use Types Packs/Day Years Used Never Assessed Sex Assigned at Date Recorded Not on file Industry Job Start Date Occupation Not on file Not on file Not on file Travel End Travel History Travel Start No recent travel history available. documented as of this encounter Plan of Treatment Not on filedocumented as of this encounter Visit Diagnoses Diagnosis Special screening for osteoporosis - Pr imary documented in this encounter
--- OUTSIDE RECORDS SUMMARY | 2019-09-01 14:08 | XMS REPORT | Encounter Summary ---
Author Author [facility] [place], [place], [place], [place] [facility] Organization [facility] Jah GarciaRosamariaDorchester, [place], [facility] Address Unknown Phone Unavailable Care Team Providers Care High Pressure Cleaner Name Role Phone Jose Corona Ciaran DO PCP Encounter Details Care Team Description Date Type Department Wade Renee MD [address] [place], [place] [phone] AFTERCARE HUMAN RESOURCES BENEFITS ADMINISTRATOR ANTICOAG USE (Primar y Dx) 03/15/2005 Inpatient [facility] Laboratory Se rvices Historical [place] [address] [place] [phone] Social History Date Tobacco Use Types Packs/Day Years Used Never Assessed Sex Assigned at Date Recorded Not on file Industry Job Start Date Occupation Not on file Not on file Not on file Travel End Travel History Travel Start No recent travel history available. documented as of this encounter Plan of Treatment Not on filedocumented as of this encounter Visit Diagnoses Diagnosis intermediate (current) use of anticoagulan ts - Primary Long-term (current) use of anticoagulan ts documented in this encounter
--- OUTSIDE RECORDS SUMMARY | 2019-09-01 14:08 | XMS REPORT | Encounter Summary ---
Author Author [facility], [place], [place], [place], [place] Areas Organization [facility] [place], [place], [place], [place] Address Unknown Phone Unavailable Care Team Providers Care Core Blower Operator Name Role Phone Jose CoronaKristie DO PCP Encounter Details Care Team Description Date Type Department Wade Renee MD [address] [place], [place] [phone] Fitting and Adjustment of Vascular Jerica ter (Primary Dx) 08/25/2005 Inpatient Historical [place] Historical [facility] [place] Social History Date [...]
--- OUTSIDE RECORDS SUMMARY | 2019-09-01 14:08 | XMS REPORT | Encounter Summary ---
Author Author [facility] [place], [place], [place], [facility] Organization [facility] Jah GarciaRosamariaBiloxi, [place], [facility] Address Unknown Phone Unavailable Care Team Providers Care Cyber Security Specialist Name Role Phone Jose Corona Ciaran DO PCP Encounter Details Care Team Description Date Type Department Wade Renee MD [address] [place], [place] [phone] AFTERCARE ADMINISTRATIVE ASST ANTICOAG USE (Primar y Dx) 06/15/2005 Inpatient [facility] Laboratory Se rvices Historical [place] [address] [place] [phone] Social History Date Tobacco Use Types Packs/Day Years Used Never Assessed Sex Assigned at Date Recorded Not on file Industry Job Start Date Occupation Not on file Not on file Not on file Travel End Travel History Travel Start No recent travel history available. documented as of this encounter Plan of Treatment Not on filedocumented as of this encounter Visit Diagnoses Diagnosis care home (current) use of anticoagulan ts - Primary Long-term (current) use of anticoagulan ts documented in this encounter
--- OUTSIDE RECORDS SUMMARY | 2019-09-01 14:08 | XMS REPORT | Encounter Summary ---
Author Author [facility], [place], [place], [place] Organization [facility] Jah GarciaRosamaria[place], [place], [facility] Address Unknown Phone Unavailable Care Team Providers Care Sail Lay Out Worker Name Role Phone Jose Corona Ciaran DO PCP Encounter Details Care Team Description Date Type Department Wade Renee MD [address] [place], [place] [phone] AFTERCARE SPACE OPERATIONS ANTICOAG USE (Primar y Dx) 06/09/2005 Inpatient [facility] Laboratory Se rvices Historical [place] [address] [place] [phone] Social History Date Tobacco Use Types Packs/Day Years Used Never Assessed Sex Assigned at Date Recorded Not on file Industry Job Start Date Occupation Not on file Not on file Not on file Travel End Travel History Travel Start No recent travel history available. documented as of this encounter Plan of Treatment Not on filedocumented as of this encounter Visit Diagnoses Diagnosis nursing home (current) use of anticoagulan ts - Primary Long-term (current) use of anticoagulan ts documented in this encounter
--- OUTSIDE RECORDS SUMMARY | 2019-09-01 14:09 | XMS REPORT | Encounter Summary ---
Author Author [facility], [place], [place], [place], [facility] Organization [facility], [place], [place], [place], [place] Areas Address Unknown Phone Unavailable Care Team Providers Care Disassembler Product Name Role Phone Jose CoronaKristie DO PCP Encounter Details Care Team Description Date Type Department Lei Davis MD [address] [place] [phone] ABDOMINAL PAIN LUQ (Primary Dx) 02/06/2003 Inpatient Historical [place] P ain Historical Therapy Social History Date Tobacco Use Types Packs/Day [...] this encounter Visit Diagnoses Diagnosis Abdominal pain, left upper quadrant - P rimary documented in this encounter
--- OUTSIDE RECORDS SUMMARY | 2019-09-01 14:09 | XMS REPORT | Encounter Summary ---
Author Author [facility], [place], [place], [place], [place] Areas Organization [facility] [place], [place], [place] Areas Address Unknown Phone Unavailable Care Team Providers Care Casework Supervisor Name Role Phone Jose CoronaKristie DO PCP Encounter Details Care Team Description Date Type Department Wade Renee MD [address] [place], [place] [phone] HYPOTHYROIDISM NOS (Primary Dx) 07/22/2003 Inpatient [facility] Laboratory Se rvices Historical [place] [address] [place] [phone] Social History Date Tobacco Use Types Packs/Day [...]
--- OUTSIDE RECORDS SUMMARY | 2019-09-01 14:09 | XMS REPORT | Encounter Summary ---
Author Author [facility], [place], [place], [place], [facility] Organization [facility] [place], [place], [place], [place] Areas Address Unknown Phone Unavailable Care Team Providers Care Arc Cutter Name Role Phone Jose CoronaKristie DO PCP Encounter Details Care Team Description Date Type Department Lei Davis MD [address] [place] [address] ABDOMINAL PAIN UNSPEC SITE (Primary Dx) 07/28/2004 Inpatient Historical [place] Historical Therapy Social History Date Tobacco Use [...]
--- OUTSIDE RECORDS SUMMARY | 2019-09-01 14:09 | XMS REPORT | Encounter Summary ---
Author Author [facility] [place], [place], [facility] Organization [facility], [place], [facility] Address Unknown Phone Unavailable Care Team Providers Care Breaker Tender Name Role Phone Jose Corona Ciaran DO PCP Encounter Details Care Team Description Date Type Department Wade Renee MD [address] [place], [place] [phone] AFTERCARE TANK OFFICER ANTICOAG USE (Primar y Dx) 03/13/2003 Inpatient [facility] Laboratory Se rvices Historical [place] [address] [place] [phone] Social History Date Tobacco Use Types Packs/Day Years Used Never Assessed Sex Assigned at Date Recorded Not on file Industry Job Start Date Occupation Not on file Not on file Not on file Travel End Travel History Travel Start No recent travel history available. documented as of this encounter Plan of Treatment Not on filedocumented as of this encounter Visit Diagnoses Diagnosis penitentiary (current) use of anticoagulan ts - Primary Long-term (current) use of anticoagulan ts documented in this encounter
--- OUTSIDE RECORDS SUMMARY | 2019-09-01 14:09 | XMS REPORT | Encounter Summary ---
Author Author [facility] [place], [place], [place] [facility] Organization [facility], [place], [facility] Address Unknown Phone Unavailable Care Team Providers Care Online Content Editor Name Role Phone Jose Corona Ciaran DO PCP Encounter Details Care Team Description Date Type Department Wade Renee MD [address] [place], [place] [phone] AFTERCARE HEEL SPLITTER ANTICOAG USE (Primar y Dx) 02/01/2003 Inpatient [facility] Laboratory Se rvices Historical [place] [address] [place] [phone] Social History Date Tobacco Use Types Packs/Day Years Used Never Assessed Sex Assigned at Date Recorded Not on file Industry Job Start Date Occupation Not on file Not on file Not on file Travel End Travel History Travel Start No recent travel history available. documented as of this encounter Plan of Treatment Not on filedocumented as of this encounter Visit Diagnoses Diagnosis senior care (current) use of anticoagulan ts - Primary Long-term (current) use of anticoagulan ts documented in this encounter
--- OUTSIDE RECORDS SUMMARY | 2019-09-01 14:09 | XMS REPORT | Encounter Summary ---
Author Author [facility] [place], [place], [place], [place] [facility] Organization [facility] [place]am[place], [place], [facility] Address Unknown Phone Unavailable Care Team Providers Care Pie Bakery Laborer Name Role Phone Jose Corona Ciaran DO PCP Encounter Details Care Team Description Date Type Department Wade Renee MD [address] [place], [place] [phone] AFTERCARE ANIMAL NUTRITIONIST ANTICOAG USE (Primar y Dx) 02/10/2004 Inpatient [facility] Laboratory Se rvices Historical [place] [address] [place] [phone] Social History Date Tobacco Use Types Packs/Day Years Used Never Assessed Sex Assigned at Date Recorded Not on file Industry Job Start Date Occupation Not on file Not on file Not on file Travel End Travel History Travel Start No recent travel history available. documented as of this encounter Plan of Treatment Not on filedocumented as of this encounter Visit Diagnoses Diagnosis skilled nursing (current) use of anticoagulan ts - Primary Long-term (current) use of anticoagulan ts documented in this encounter
--- OUTSIDE RECORDS SUMMARY | 2019-09-01 14:09 | XMS REPORT | Encounter Summary ---
Author Author [facility], [place], [place], [facility] Organization [facility] [place], [place], [facility] Address Unknown Phone Unavailable Care Team Providers Care Vaccine Specialist Name Role Phone Jose CoronaKristie DO PCP Encounter Details Care Team Description Date Type Department Neil Farooq MD [address] [place] [address] [address] [place] [phone] ACUTE LYMPHADENITIS (Primary Dx) 10/14/2003 Inpatient [facility] [address] [place] [phone] Social History Date Tobacco Use Types Packs/Day Years Used Never Assessed Sex Assigned at Date Recorded Not on file Industry Job Start Date Occupation Not on file Not on file Not on file Travel End Travel History Travel Start No recent travel history available. documented as of this encounter Plan of Treatment Not on filedocumented as of this encounter Visit Diagnoses Diagnosis Acute lymphadenitis - Primary documented in this encounter
--- OUTSIDE RECORDS SUMMARY | 2019-09-01 14:09 | XMS REPORT | Encounter Summary ---
Author Author [facility], [place], [place], [place], [place] Areas Organization [facility] [place], [place], [place], [place] Areas Address Unknown Phone Unavailable Care Team Providers Care Ragman Name Role Phone Jose CoronaKristie DO PCP Encounter Details Care Team Description Date [place] [address] [place] [address] [place] [phone] Ed, Physician LOWER EXTR THROMBOSIS DISTAL (Primary Dx ) 02/10/2004 Emergency [facility] in Emergency Services [address] [place] [address] [place] [phone] Social History Date Tobacco Use Types Packs/Day Years Used Never Assessed Sex Assigned at Date Recorded Not on file Industry Job Start Date Occupation Not on file Not on file Not on file Travel End Travel History Travel Start No recent travel history available. documented as of this encounter Plan of Treatment Not on filedocumented as of this encounter Visit Diagnoses Diagnosis Acute venous embolism and thrombosis of deep vessels of distal lower extremity - Primary documented in this encounter
--- OUTSIDE RECORDS SUMMARY | 2019-09-01 14:09 | XMS REPORT | Encounter Summary ---
Author Author [facility], [place], [place], [place], [facility] Organization [facility], Jah Garcia, [place], [place], [facility] Address Unknown Phone Unavailable Care Team Providers Care Wrapper Cashier Name Role Phone Jose Corona DO PCP Encounter Details Care Team Description Date Type Department Wade Renee MD [address] [place], [place] [phone] ABDOMINAL PAIN UNSPEC SITE (Primary Dx) 11/16/2004 Inpatient Historical [place] HOBSON Rad Historical Social History Date [...]
--- OUTSIDE RECORDS SUMMARY | 2019-09-01 14:09 | XMS REPORT | Encounter Summary ---
Author Author [facility] [place], [place], [place] [facility] Organization [facility]anna[facility], [place], [facility] Address Unknown Phone Unavailable Care Team Providers Care Equipment Maintenance Supervisor Name Role Phone Jose Corona Ciaran DO PCP Encounter Details Care Team Description Date Type Department Wade Renee MD [address] [place], [place] [phone] AFTERCARE PRIVACY ANALYST ANTICOAG USE (Primar y Dx) 03/07/2003 Inpatient [facility] Laboratory Se rvices Historical [place] [address] [place] [phone] Social History Date Tobacco Use Types Packs/Day Years Used Never Assessed Sex Assigned at Date Recorded Not on file Industry Job Start Date Occupation Not on file Not on file Not on file Travel End Travel History Travel Start No recent travel history available. documented as of this encounter Plan of Treatment Not on filedocumented as of this encounter Visit Diagnoses Diagnosis shelter (current) use of anticoagulan ts - Primary Long-term (current) use of anticoagulan ts documented in this encounter
--- OUTSIDE RECORDS SUMMARY | 2019-09-01 14:09 | XMS REPORT | Encounter Summary ---
Author Author [facility] [place], [place], [place] Areas Organization [facility] [place], [place], [facility] Address Unknown Phone Unavailable Care Team Providers Care Metallurgical Technician Name Role Phone Jose CoronaKristie DO PCP Encounter Details Care Team Description Date Type Department Terrence Elizondo DO [address] [place] [phone] Ed, Physician HEADACHE (Primary Dx) 10/14/2003 Emergency [facility] in Emergency Services [address] [place], [place] [address] [phone] Social History Date Tobacco Use Types Packs/Day Years Used Never Assessed Sex Assigned at Date Recorded Not on file Industry Job Start Date Occupation Not on file Not on file Not on file Travel End Travel History Travel Start No recent travel history available. documented as of this encounter Plan of Treatment Not on filedocumented as of this encounter Visit Diagnoses Diagnosis Headache(784.0) - Primary Headache documented in this encounter
--- OUTSIDE RECORDS SUMMARY | 2019-09-01 14:09 | XMS REPORT | Encounter Summary ---
Author Author [facility] [place], [place], [place] [facility] Organization [facility] [place], [place], [facility] Address Unknown Phone Unavailable Care Team Providers Care Rail Car Driver Name Role Phone Jose Corona Ciaran DO PCP Encounter Details Care Team Description Date Type Department Wade Renee MD [address] [place], [place] [phone] AFTERCARE PLANT AND MACHINERY VALUER ANTICOAG USE (Primar y Dx) 04/05/2003 Inpatient [facility] Laboratory Se rvices Historical [place] [address] [place] [phone] Social History Date Tobacco Use Types Packs/Day Years Used Never Assessed Sex Assigned at Date Recorded Not on file Industry Job Start Date Occupation Not on file Not on file Not on file Travel End Travel History Travel Start No recent travel history available. documented as of this encounter Plan of Treatment Not on filedocumented as of this encounter Visit Diagnoses Diagnosis [facility] (current) use of anticoagulan ts - Primary Long-term (current) use of anticoagulan ts documented in this encounter
--- OUTSIDE RECORDS SUMMARY | 2019-09-01 14:09 | XMS REPORT | Encounter Summary ---
Author Author [facility], [place], [place], [place], [place] Areas Organization [facility], [place], [place], [place] Address Unknown Phone Unavailable Care Team Providers Care Director Of Revenue Cycle Management Name Role Phone Jose Corona Ciaran DO PCP Encounter Details Care Team Description Date Type Department Wade Renee MD [address] [place], [place] [phone] HYPERLIPIDEMIA NEC/NOS (Primary Dx) 05/25/2004 Inpatient [facility] Laboratory Se rvices Historical [place] [address] [place] [phone] Social History Date Tobacco Use Types Packs/Day [...] encounter Visit Diagnoses Diagnosis Other and unspecified hyperlipidemia - Primary documented in this encounter
--- OUTSIDE RECORDS SUMMARY | 2019-09-01 14:09 | XMS REPORT | Encounter Summary ---
Author Author [facility] [place], [place], [place] [facility] Organization [facility], [place], [facility] Address Unknown Phone Unavailable Care Team Providers Care Cv Tech Name Role Phone Jose Corona Ciaran DO PCP Encounter Details Care Team Description Date Type Department Wade Renee MD [address] [place], [place] [phone] AFTERCARE PERSONAL DEVELOPMENT MENTOR ANTICOAG USE (Primar y Dx) 08/06/2004 Inpatient [facility] Laboratory Se rvices Historical [place] [address] [place] [phone] Social History Date Tobacco Use Types Packs/Day Years Used Never Assessed Sex Assigned at Date Recorded Not on file Industry Job Start Date Occupation Not on file Not on file Not on file Travel End Travel History Travel Start No recent travel history available. documented as of this encounter Plan of Treatment Not on filedocumented as of this encounter Visit Diagnoses Diagnosis group home (current) use of anticoagulan ts - Primary Long-term (current) use of anticoagulan ts documented in this encounter
--- OUTSIDE RECORDS SUMMARY | 2019-09-01 14:09 | XMS REPORT | Encounter Summary ---
Author Author [facility], [place], [place], [place], [place] [facility] Organization [facility], [place], [place], [place], [facility] Address Unknown Phone Unavailable Care Team Providers Care Metal Fabrication Supervisor Name Role Phone Jose Corona Ciaran DO PCP Encounter Details Care Team Description Date Type Department Nicolás Javed, DO [address] [place], [place] [address] OBST CHRON BRONCHITIS WITH EXAC (Primary Dx) 02/24/[address] [facility] in Emergency Services [address] [place], [place] [address] [address] Social History Date Tobacco Use Types [...]
--- OUTSIDE RECORDS SUMMARY | 2019-09-01 14:09 | XMS REPORT | Encounter Summary ---
Author Author [facility] [place], [place], [place], [place] [facility] Organization [facility], [place], [place], [place], [place] Areas Address Unknown Phone Unavailable Care Team Providers Care Service Delivery Consultant Name Role Phone Jose CoronaKristie DO PCP Encounter Details Care Team Description Date Type Department Hamlet Abraham MD [address] [place] [address] [id number] FEMALE GENITAL SYMPTOMS NOS (Primary Dx) 01/22/2004 Inpatient Historical [place] O DC Rad Historical Social History Date [...] of this encounter Visit Diagnoses Diagnosis Unspecified symptom associated with fem alvina genital organs - Primary documented in this encounter
--- OUTSIDE RECORDS SUMMARY | 2019-09-01 14:09 | XMS REPORT | Encounter Summary ---
Author Author [facility] [place], [place], [facility] Organization [facility] [place], [place], [facility] Address Unknown Phone Unavailable Care Team Providers Care Training Representative Name Role Phone Chloe Jose Ciaran DO PCP Encounter Details Care Team Description Date Type Department Jonathan Garcia, DO [address] [facility] N[place]Y Freitas [address] [phone] PAINFUL RESPIRATION (Primary Dx) 03/18/2003 Emergency [facility] in Emergency Services [address] [place] [address] N[place]Y FREITAS [phone] Social History Date Tobacco Use Types Packs/Day [...]
--- OUTSIDE RECORDS SUMMARY | 2019-09-01 14:09 | XMS REPORT | Encounter Summary ---
Author Author [facility], [place], [place], [place], [place] [facility] Organization [facility], Jah Garcia, [place], [place], [facility] Address Unknown Phone Unavailable Care Team Providers Care Bodily Injury Adjuster Name Role Phone Jose Corona DO PCP Encounter Details Care Team Description Date Type Department Brandt-Paul Robledo MD NO ADDRESS ON FILE Ed, Physician CELLULITIS OF LEG (Primary Dx) 06/12/2003 Emergency [facility] in Emergency Services [address] [place] [phone] Social History Date Tobacco Use Types Packs/Day [...]
--- OUTSIDE RECORDS SUMMARY | 2019-09-01 14:09 | XMS REPORT | Encounter Summary ---
Author Author [facility] [place], [place], [place], [place] [facility] Organization [facility] [place], [place], [facility] Address Unknown Phone Unavailable Care Team Providers Care Retail Loan Originator Name Role Phone Jose Corona Ciaran DO PCP Encounter Details Care Team Description Date Type Department Wade Renee MD [address] [place], [place] [phone] AFTERCARE KEYSMITH ANTICOAG USE (Primar y Dx) 10/05/2004 Inpatient [facility] Laboratory Se rvices Historical [place] [address] [place] [phone] Social History Date Tobacco Use Types Packs/Day [...]
--- OUTSIDE RECORDS SUMMARY | 2019-09-01 14:09 | XMS REPORT | Encounter Summary ---
Author Author [facility], Jah Garcia [place], [place], [facility] Organization [facility], [place], [place], [facility] Address Unknown Phone Unavailable Care Team Providers Care Senior Vice President Name Role Phone Jose CoronaKristie DO PCP Encounter Details Care Team Description Date Type Department Wade Renee MD [address] [place], [place] [phone] AFTERCARE DISPUTE COORDINATOR USE MEDICATN (Primar y Dx) 04/25/2003 Inpatient [facility] Laboratory Se rvices Historical [place] [address] [place] [phone] Social History Date Tobacco Use Types Packs/Day Years Used Never Assessed Sex Assigned at Date Recorded Not on file Industry Job Start Date Occupation Not on file Not on file Not on file Travel End Travel History Travel Start No recent travel history available. documented as of this encounter Plan of Treatment Not on filedocumented as of this encounter Visit Diagnoses Diagnosis Encounter for long-term (current) use o f other medications - Primary documented in this encounter
--- OUTSIDE RECORDS SUMMARY | 2019-09-01 14:09 | XMS REPORT | Encounter Summary ---
Author Author [facility], [place], [place], [place], [place] [facility] Organization [facility], [place], [place], [place], [place] Areas Address Unknown Phone Unavailable Care Team Providers Care Mobile Device Engineer Name Role Phone Jose CoronaKristie DO PCP Encounter Details Care Team Description Date Type Department Lei Davis MD [address] [place] [address] ABDOMINAL PAIN LUQ (Primary Dx) 07/18/2003 Inpatient Historical [place] P ain Historical Therapy Social History Date [...]
--- OUTSIDE RECORDS SUMMARY | 2019-09-01 14:09 | XMS REPORT | Encounter Summary ---
Author Author [facility], [place], [place], [place], [facility] Organization [facility], [place], [place], [place], [facility] Address Unknown Phone Unavailable Care Team Providers Care Seafood Harvester Name Role Phone Jose Corona Ciaran DO PCP Encounter Details Care Team Description Date Type Department Wade Renee MD [address] [place], [place] [phone] UNSPEC CONSTIPATION (Primary Dx) 12/09/2003 Inpatient [facility] Historical OTHOPEDICS [address] [place] [phone] Social History Date Tobacco Use Types Packs/Day [...]
--- OUTSIDE RECORDS SUMMARY | 2019-09-01 14:09 | XMS REPORT | Encounter Summary ---
Author Author [facility] [place], [place], [place], [place] [facility] Organization [facility] [place], [place], [facility] Address Unknown Phone Unavailable Care Team Providers Care Sound Recording Technician Name Role Phone Jose Corona Ciaran DO PCP Encounter Details Care Team Description Date Type Department Wade Renee MD [address] [place], [place] [phone] AFTERCARE PROTOCOL OFFICER ANTICOAG USE (Primar y Dx) 07/06/2004 Inpatient [facility] Laboratory Se rvices Historical [place] [address] [place] [phone] Social History Date Tobacco Use Types Packs/Day [...]
--- OUTSIDE RECORDS SUMMARY | 2019-09-01 14:09 | XMS REPORT | Encounter Summary ---
Author Author [facility], [place], [place], [place], [place] [facility] Organization [facility], Jah Garcia, [place], [place], [place] Areas Address Unknown Phone Unavailable Care Team Providers Care Steward/Stewardess Lounge Name Role Phone Jose CoronaKristie DO PCP Encounter Details Care Team Description Date Type Department Nicolás Mariee MD NO ADDRESS ON FILE Ed, Physician CONTUSION OF FOOT (Primary Dx) 07/08/2003 Emergency [facility] [place] in Emergency Services [address] [facility] [place] [phone] Social History Date Tobacco Use Types Packs/Day [...] this encounter Visit Diagnoses Diagnosis Contusion of foot - Primary documented in this encounter
--- OUTSIDE RECORDS SUMMARY | 2019-09-01 14:09 | XMS REPORT | Encounter Summary ---
Author Author [facility], [place], [place], [place], [place] Areas Organization [facility], [place], [place], [place] Areas Address Unknown Phone Unavailable Care Team Providers Care Director Vaccine Name Role Phone Jose Corona Ciaran DO PCP Encounter Details Care Team Description Date Type Department Wade Renee MD [address] [place], [place] [phone] DECREASED LIBIDO (Primary Dx) 02/21/2004 Inpatient [facility] Laboratory Se rvices Historical [place] [address] [place] [phone] Social History Date Tobacco Use Types Packs/Day Years Used Never Assessed Sex Assigned at Date Recorded Not on file Industry Job Start Date Occupation Not on file Not on file Not on file Travel End Travel History Travel Start No recent travel history available. documented as of this encounter Plan of Treatment Not on filedocumented as of this encounter Visit Diagnoses Diagnosis Decreased libido - Primary documented in this encounter
--- OUTSIDE RECORDS SUMMARY | 2019-09-01 14:09 | XMS REPORT | Encounter Summary ---
Author Author [facility], [place], [place], [place], [place] Areas Organization [facility] Jah Garcia, [place], [place], [place] Areas Address Unknown Phone Unavailable Care Team Providers Care Freight Inspector Name Role Phone Jose Corona Ciaran DO PCP Encounter Details Care Team Description Date Type Department Wade Renee MD [address] [place], [place] [phone] INFEC/INFLAM-VASC DEVICE (Primary Dx) 02/26/2003 Inpatient [facility] Medical Surgical [address] [place] [address] [phone] Social History Date Tobacco Use Types Packs/Day Years Used Never Assessed Sex Assigned at Date Recorded Not on file Industry Job Start Date Occupation Not on file Not on file Not on file Travel End Travel History Travel Start No recent travel history available. documented as of this encounter Plan of Treatment Not on filedocumented as of this encounter Visit Diagnoses Diagnosis Infection and inflammatory reaction due to other vascular device, implant, and graft - Primary documented in this encounter
--- OUTSIDE RECORDS SUMMARY | 2019-09-01 14:09 | XMS REPORT | Encounter Summary ---
Author Author [facility], [place], [place], [place] Areas Organization [facility], [place], [place], [place] Areas Address Unknown Phone Unavailable Care Team Providers Care High School Director Name Role Phone Jose CoronaKristie DO PCP Encounter Details Care Team Description Date Type Department Wade Renee MD [address] [place], [place] [phone] DEPRESSIVE DISORDER NEC (Primary Dx) 06/07/2003 Inpatient [facility] Laboratory Se rvices Historical [place] [address] [place] [phone] Social History Date Tobacco Use Types Packs/Day Years Used Never Assessed Sex Assigned at Date Recorded Not on file Industry Job Start Date Occupation Not on file Not on file Not on file Travel End Travel History Travel Start No recent travel history available. documented as of this encounter Plan of Treatment Not on filedocumented as of this encounter Visit Diagnoses Diagnosis Depressive disorder, not elsewhere clas sified - Primary documented in this encounter
--- OUTSIDE RECORDS SUMMARY | 2019-09-01 14:09 | XMS REPORT | Encounter Summary ---
Author Author [facility] [place], [place], [place], [place] [facility] Organization [facility] Jah GarciaRosamaria[place], [place], [facility] Address Unknown Phone Unavailable Care Team Providers Care Police Communications Dispatcher Name Role Phone Jose Corona Ciaran DO PCP Encounter Details Care Team Description Date Type Department Wade Renee MD [address] [place], [place] [phone] AFTERCARE PRE WAVE ASSEMBLER ANTICOAG USE (Primar y Dx) 09/02/2004 Inpatient [facility] Laboratory Se rvices Historical [place] [address] [place] [phone] Social History Date Tobacco Use Types Packs/Day Years Used Never Assessed Sex Assigned at Date Recorded Not on file Industry Job Start Date Occupation Not on file Not on file Not on file Travel End Travel History Travel Start No recent travel history available. documented as of this encounter Plan of Treatment Not on filedocumented as of this encounter Visit Diagnoses Diagnosis [facility] (current) use of anticoagulan ts - Primary Long-term (current) use of anticoagulan ts documented in this encounter
--- OUTSIDE RECORDS SUMMARY | 2019-09-01 14:09 | XMS REPORT | Encounter Summary ---
Author Author [facility] [place], [place], [place], [place] [facility] Organization [facility] [place], [place], [facility] Address Unknown Phone Unavailable Care Team Providers Care Property Clerk Name Role Phone Jose Corona Ciaran DO PCP Encounter Details Care Team Description Date Type Department Wade Renee MD [address] [place], [place] [phone] AFTERCARE LAB ASST ANTICOAG USE (Primar y Dx) 05/15/2003 Inpatient [facility] Laboratory Se rvices Historical [place] [address] [place] [phone] Social History Date Tobacco Use Types Packs/Day Years Used Never Assessed Sex Assigned at Date Recorded Not on file Industry Job Start Date Occupation Not on file Not on file Not on file Travel End Travel History Travel Start No recent travel history available. documented as of this encounter Plan of Treatment Not on filedocumented as of this encounter Visit Diagnoses Diagnosis [facility] (current) use of anticoagulan ts - Primary Long-term (current) use of anticoagulan ts documented in this encounter
--- OUTSIDE RECORDS SUMMARY | 2019-09-01 14:09 | XMS REPORT | Encounter Summary ---
Author Author [facility], [place], [place], [facility] Organization [facility], Jah GarciaG[place], [place], [facility] Address Unknown Phone Unavailable Care Team Providers Care Architectural Engineering Teacher Name Role Phone Jose CoronaKristie DO PCP Encounter Details Care Team Description Date Type Department Aiden Medrano MD [address] [place] [address] [address] [place], [place] [address] AFTERCARE FACILITIES PLANNER ANTICOAG USE (Primar y Dx) 07/01/2004 Inpatient [facility] Laboratory Se rvices Historical [place] [address] [place] [phone] Social History Date Tobacco Use Types Packs/Day Years Used Never Assessed Sex Assigned at Date Recorded Not on file Industry Job Start Date Occupation Not on file Not on file Not on file Travel End Travel History Travel Start No recent travel history available. documented as of this encounter Plan of Treatment Not on filedocumented as of this encounter Visit Diagnoses Diagnosis joint terminal attack controller (current) use of anticoagulan ts - Primary Long-term (current) use of anticoagulan ts documented in this encounter
--- OUTSIDE RECORDS SUMMARY | 2019-09-01 14:09 | XMS REPORT | Encounter Summary ---
Author Author [facility], [place], [place], [place], [place] Areas Organization [facility], [place], [place], [place], [facility] Address Unknown Phone Unavailable Care Team Providers Care Office Technology Instructor Name Role Phone Jose Corona Ciaran DO PCP Encounter Details Care Team Description Date Type Department Wade Renee MD [address] [place], [place] [phone] Anthony Gaona DO NO ADDRESS ON FILE INFEC/INFLAM-VASC DEVICE (Primary Dx) 05/01/2003 Inpatient [facility] [address] Historical ONCOLOGY [address] [place] [phone] Social History Date Tobacco Use Types Packs/Day [...]
--- OUTSIDE RECORDS SUMMARY | 2019-09-01 14:09 | XMS REPORT | Encounter Summary ---
Author Author [facility] [place], [place], [facility] Organization [facility] [place], [place], [facility] Address Unknown Phone Unavailable Care Team Providers Care Traveling Clerk Name Role Phone Jose Corona DO PCP Encounter Details Care Team Description Date Type Department 04/25/2003 Inpatient Historical Social History Date Tobacco Use Types [...]
--- OUTSIDE RECORDS SUMMARY | 2019-09-01 14:09 | XMS REPORT | Encounter Summary ---
Author Author [facility], [place], [place], [place], [facility] Organization [facility] [place], [place], [place], [facility] Address Unknown Phone Unavailable Care Team Providers Care Intake Coordinator Name Role Phone Jose Corona Ciaran DO PCP Encounter Details Care Team Description Date Type Department Wade Renee MD [address] [place], [place] [phone] UNSPEC CONSTIPATION (Primary Dx) 12/15/2003 [facility] [address]E Historical OTHOPEDICS [address] [place] [address] [phone] Social History Date Tobacco Use Types Packs/Day [...]
--- OUTSIDE RECORDS SUMMARY | 2019-09-01 14:09 | XMS REPORT | Encounter Summary ---
Author Author [facility], [place], [place], [place], [place] Areas Organization [facility] [place], [place], [place] Areas Address Unknown Phone Unavailable Care Team Providers Care Heat Pump Installer Name Role Phone Jose oCronaKristie DO PCP Encounter Details Care Team Description Date Type Department Wade Renee MD [address] [place], [place] [phone] HYPOTHYROIDISM NOS (Primary Dx) 09/02/2003 Inpatient [facility] Laboratory Se rvices Historical [place] [address] [place] [phone] Social History Date Tobacco Use Types Packs/Day [...]
--- OUTSIDE RECORDS SUMMARY | 2019-09-01 14:10 | XMS REPORT | Encounter Summary ---
Author Author [facility], [place], [place], [place], [place] Areas Organization [facility], [place], [place], [place], [place] Areas Address Unknown Phone Unavailable Care Team Providers Care Negotiator Sales Name Role Phone Jose CoronaKristie DO PCP Encounter Details Care Team Description Date Type Department Lei Davis MD [address] [place] [address] ABDOMINAL PAIN LLQ (Primary Dx) 11/08/2002 Inpatient Historical [place] P ain Historical Therapy Social History Date [...] encounter Visit Diagnoses Diagnosis Abdominal pain, left lower quadrant - P rimary documented in this encounter
--- OUTSIDE RECORDS SUMMARY | 2019-09-01 14:10 | XMS REPORT | Encounter Summary ---
Author Author [facility], [place], [place], [place], [place] Areas Organization [facility], [place], [place], [place], [place] Areas Address Unknown Phone Unavailable Care Team Providers Care Architectural Examiner Name Role Phone ChloeJose king Ciaran DO PCP Encounter Details Care Team Description Date Type Department Lei Graff, DO [address] [place] [phone] Ed, Physician FX PHALANX, FOOT-CLOSED (Primary Dx) 12/25/2002 Emergency [facility] in Emergency Services [address] [place] [address] [phone] Social History Date Tobacco Use Types Packs/Day Years Used Never Assessed Sex Assigned at Date Recorded Not on file Industry Job Start Date Occupation Not on file Not on file Not on file Travel End Travel History Travel Start No recent travel history available. documented as of this encounter Plan of Treatment Not on filedocumented as of this encounter Visit Diagnoses Diagnosis Closed fracture of one or more phalange s of foot - Primary documented in this encounter
--- OUTSIDE RECORDS SUMMARY | 2019-09-01 14:10 | XMS REPORT | Encounter Summary ---
Author Author [facility] [place], [place], [place] Areas Organization [facility] [place], [place], [facility] Address Unknown Phone Unavailable Care Team Providers Care Admissions Coordinator Name Role Phone Jose CoronaKristie BOWIE PCP Encounter Details Care Team Description Date Type Department Anurag Mckeon, [address] [facility] [place] [address] Ed, Physician COMPLIC OTHR VASCUL DEVICE (Primary Dx) 01/05/2002 Emergency [facility] in Emergency Services [address] [place], [place] [address] [phone] Social History Date Tobacco Use Types Packs/Day Years Used Never Assessed Sex Assigned at Date Recorded Not on file Industry Job Start Date Occupation Not on file Not on file Not on file Travel End Travel History Travel Start No recent travel history available. documented as of this encounter Plan of Treatment Not on filedocumented as of this encounter Visit Diagnoses Diagnosis Other complications due to other vascul ar device, implant, and graft - Primary documented in this encounter
--- OUTSIDE RECORDS SUMMARY | 2019-09-01 14:10 | XMS REPORT | Encounter Summary ---
Author Author [facility], [place], [place], [place] Areas Organization [facility], [place], [place], [facility] Address Unknown Phone Unavailable Care Team Providers Care Asphalt Mixer Name Role Phone Jose Corona Ciaran DO PCP Encounter Details Care Team Description Date Type Department Wade Renee MD [address] [place], [place] [phone] SHORTNESS OF BREATH (Primary Dx) 11/30/2002 Inpatient [facility] Se rvices Historical [place] [address] [place] [phone] Social History Date Tobacco Use Types Packs/Day [...]
--- OUTSIDE RECORDS SUMMARY | 2019-09-01 14:10 | XMS REPORT | Encounter Summary ---
Author Author [facility], [place], [place], [place], [place] Areas Organization [facility], [place], [place], [place], [place] Areas Address Unknown Phone Unavailable Care Team Providers Care Yoke Presser Name Role Phone Jose CoronaKristie DO PCP Encounter Details Care Team Description Date Type Department Jonathan Razo MD [address] [place] [address] [place] [phone] Ed, Physician HEADACHE (Primary Dx) 05/06/2002 Emergency [facility] in Emergency Services [address] [place] [address] [place] [phone] Social History Date Tobacco Use Types Packs/Day [...]
--- OUTSIDE RECORDS SUMMARY | 2019-09-01 14:10 | XMS REPORT | Encounter Summary ---
Author Author [facility] [place], [place], [place], [facility] Organization [facility], [place], [place], [facility] Address Unknown Phone Unavailable Care Team Providers Care Fly Setter Name Role Phone Jose Corona Ciaran DO PCP Encounter Details Care Team Description Date Type Department Taj Gray IV, DO [address] [place] [address] [place] [address] URIN TRACT INFECTION NOS (Primary Dx) 05/26/2002 Inpatient [facility] Laboratory Se rvices Historical [place] [address] [facility] [phone] Social History Date Tobacco Use Types Packs/Day Years Used Never Assessed Sex Assigned at Date Recorded Not on file Industry Job Start Date Occupation Not on file Not on file Not on file Travel End Travel History Travel Start No recent travel history available. documented as of this encounter Plan of Treatment Not on filedocumented as of this encounter Visit Diagnoses Diagnosis Urinary tract infection, site not speci fied - Primary documented in this encounter
--- OUTSIDE RECORDS SUMMARY | 2019-09-01 14:10 | XMS REPORT | Encounter Summary ---
Author Author [facility], [place], [place], [place], [facility] Organization [facility], [place], [place], [place], [facility] Address Unknown Phone Unavailable Care Team Providers Care Dump Attendant Name Role Phone Jose Corona Ciaran DO PCP Encounter Details Care Team Description Date Type Department Wade Renee MD [address] [place], [place] [phone] VENOUS THROMBOSIS NEC (Primary Dx) 12/02/[address] [facility] BETTIE [address] Historical CARDIAC SURGERY [address] [place] [phone] Social History Date Tobacco Use Types Packs/Day Years Used Never Assessed Sex Assigned at Date Recorded Not on file Industry Job Start Date Occupation Not on file Not on file Not on file Travel End Travel History Travel Start No recent travel history available. documented as of this encounter Plan of Treatment Not on filedocumented as of this encounter Visit Diagnoses Diagnosis Other acute embolism veins - Primary Acute venous embolism and thrombosis of other specified veins documented in this encounter
--- OUTSIDE RECORDS SUMMARY | 2019-09-01 14:10 | XMS REPORT | Encounter Summary ---
Author Author [facility] [place], [place], [facility] Organization [facility] [place], [place], [facility] Address Unknown Phone Unavailable Care Team Providers Care Program Admin Name Role Phone ChloeJose kingKristie BOWIE PCP Encounter Details Care Team Description Date Type Department Baljeet Aguilar, [address] [place] [address] Ed, Physician RESPIRATORY ABNORM NEC (Primary Dx) 12/02/2001 Emergency [facility] in Emergency Services [address] [place], [place] [address] [phone] Social History Date Tobacco Use Types Packs/Day [...] dyspnea and respiratory abnormali ty - Primary documented in this encounter
--- OUTSIDE RECORDS SUMMARY | 2019-09-01 14:10 | XMS REPORT | Encounter Summary ---
Author Author [facility], [place], [place], [place] Areas Organization [facility], [place], [place], [place], [place] Address Unknown Phone Unavailable Care Team Providers Care Associate Financial Analyst Name Role Phone ChloeJose king Ciaran BOWIE PCP Encounter Details Care Team Description Date Type Department Baljeet Aguilar, [address] [place] [address] Ed, Physician COMPLIC OTHR VASCUL DEVICE (Primary Dx) 10/03/2001 Emergency [facility] in Emergency Services [address] [place], [place] [address] [phone] Social History Date Tobacco Use Types Packs/Day [...]
--- OUTSIDE RECORDS SUMMARY | 2019-09-01 14:10 | XMS REPORT | Encounter Summary ---
Author Author [facility], [place], [place], [place], [place] Areas Organization [facility], [place], [place], [place] Address Unknown Phone Unavailable Care Team Providers Care Therapy Administrative Assistant Name Role Phone Jose Corona Ciaran DO PCP Encounter Details Care Team Description Date Type Department Jesu Reyes MD [address] [place] [address] [phone] ATTEN TO GASTROSTOMY (Primary Dx) 06/27/2001 Emergency [facility] in Emergency Services [address] [place] [address] [place] [phone] Social History Date Tobacco Use Types Packs/Day Years Used Never Assessed Sex Assigned at Date Recorded Not on file Industry Job Start Date Occupation Not on file Not on file Not on file Travel End Travel History Travel Start No recent travel history available. documented as of this encounter Plan of Treatment Not on filedocumented as of this encounter Visit Diagnoses Diagnosis Attention to gastrostomy - Primary documented in this encounter
--- OUTSIDE RECORDS SUMMARY | 2019-09-01 14:10 | XMS REPORT | Encounter Summary ---
Author Author [facility] [place], [place], [facility] Organization [facility] [place], [place], [facility] Address Unknown Phone Unavailable Care Team Providers Care Enterprise Business Architect Name Role Phone Jose Corona DO PCP Encounter Details Care Team Description Date Type Department 12/06/2002 Inpatient Historical Social History Date Tobacco Use [...]
--- OUTSIDE RECORDS SUMMARY | 2019-09-01 14:10 | XMS REPORT | Encounter Summary ---
Author Author [facility] [place], [place], [facility] Organization [facility] [place], [place], [facility] Address Unknown Phone Unavailable Care Team Providers Care Rampman Name Role Phone Jose Corona DO PCP Encounter Details Care Team Description Date Type Department 10/24/2002 Inpatient Historical Social History Date Tobacco Use [...]
--- OUTSIDE RECORDS SUMMARY | 2019-09-01 14:10 | XMS REPORT | Encounter Summary ---
Author Author [facility], [place], [place], [facility] Organization [facility], [place], [place], [facility] Address Unknown Phone Unavailable Care Team Providers Care Hand Sewer Name Role Phone Jose Corona Ciaran DO PCP Encounter Details Care Team Description Date Type Department Ean Duenas MD [address] [place] [phone] SEPTICEMIA NOS (Primary Dx) 08/24/2001 Inpatient [facility] Laboratory Se rvices Historical [place] [address] [place] [phone] Social History Date Tobacco Use Types Packs/Day Years Used Never Assessed Sex Assigned at Date Recorded Not on file Industry Job Start Date Occupation Not on file Not on file Not on file Travel End Travel History Travel Start No recent travel history available. documented as of this encounter Plan of Treatment Not on filedocumented as of this encounter Visit Diagnoses Diagnosis Unspecified septicemia(038.9) - Primary Unspecified septicemia documented in this encounter
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
--- OUTSIDE RECORDS SUMMARY | 2019-09-01 14:10 | XMS REPORT | Encounter Summary ---
Author Author [facility], [place], [place], [place], [place] Areas Organization [facility], [place], [place], [place], [place] Areas Address Unknown Phone Unavailable Care Team Providers Care Consulting Solution Manager Name Role Phone Jose CoronaKristie DO PCP Encounter Details Care Team Description Date Type Department Wade Renee MD [address] [place] [address] SCREENING MAMM-MAILG NEOPL-OTHER (Primar y Dx) 11/22/[address] [facility] [place] [address] [place] [phone] Social History Date Tobacco Use Types Packs/Day Years Used Never Assessed Sex Assigned at Date Recorded Not on file Industry Job Start Date Occupation Not on file Not on file Not on file Travel End Travel History Travel Start No recent travel history available. documented as of this encounter Plan of Treatment Not on filedocumented as of this encounter Visit Diagnoses Diagnosis Other screening mammogram - Primary documented in this encounter
--- OUTSIDE RECORDS SUMMARY | 2019-09-01 14:10 | XMS REPORT | Encounter Summary ---
Author Author [facility] [place], [place], [place] Areas Organization [facility] [place], [place], [facility] Address Unknown Phone Unavailable Care Team Providers Care Clay Stain Mixer Name Role Phone Jose CoronaKristie DO PCP Encounter Details Care Team Description Date Type Department Terrence Elizondo DO [address] [place] [phone] Ed, Physician HEADACHE (Primary Dx) 12/13/2001 Emergency [facility] in Emergency Services [address] [place], [place] [address] [phone] Social History Date Tobacco Use Types Packs/Day [...]
--- OUTSIDE RECORDS SUMMARY | 2019-09-01 14:10 | XMS REPORT | Encounter Summary ---
Author Author [facility] [place], [place], [place], [facility] Organization [facility] [place], [place], [facility] Address Unknown Phone Unavailable Care Team Providers Care Clinical Coder Name Role Phone Jose Corona Ciaran DO PCP Encounter Details Care Team Description Date Type Department Ean Duenas MD [address] [place] [phone] ABDOMINAL PAIN UNSPEC SITE (Primary Dx) 11/15/2001 Inpatient [facility] Historical [place] [address] [place] [phone] Social History Date Tobacco Use Types Packs/Day [...]
--- OUTSIDE RECORDS SUMMARY | 2019-09-01 14:10 | XMS REPORT | Encounter Summary ---
Author Author [facility] [place], [place], [place], [facility] Organization [facility] [place], [place], [facility] Address Unknown Phone Unavailable Care Team Providers Care Automotive Service Manager Name Role Phone Jose CoronaKristie DO PCP Encounter Details Care Team Description Date Type Department Ean Duenas MD [address] [place] [phone] INTESTINAL OBSTRUCT NOS (Primary Dx) 10/25/2001 Inpatient [facility] Se rvices Historical [place] [address] [place] [phone] Social History Date Tobacco Use Types Packs/Day Years Used Never Assessed Sex Assigned at Date Recorded Not on file Industry Job Start Date Occupation Not on file Not on file Not on file Travel End Travel History Travel Start No recent travel history available. documented as of this encounter Plan of Treatment Not on filedocumented as of this encounter Visit Diagnoses Diagnosis Unspecified intestinal obstruction - Pr imary documented in this encounter
--- OUTSIDE RECORDS SUMMARY | 2019-09-01 14:10 | XMS REPORT | Encounter Summary ---
Author Author [facility], [place], [place], [place], [place] Areas Organization [facility], [place], [place], [place] Areas Address Unknown Phone Unavailable Care Team Providers Care Wireless Retail Manager Name Role Phone Jose Corona Ciaran DO PCP Encounter Details Care Team Description Date Type Department Jesu Reyes MD [address] [place] [address] [phone] ATTEN TO GASTROSTOMY (Primary Dx) 10/20/2001 Emergency [facility] in Emergency Services [address] [place] [address] [place] [phone] Social History Date Tobacco Use Types Packs/Day [...]
--- OUTSIDE RECORDS SUMMARY | 2019-09-01 14:10 | XMS REPORT | Encounter Summary ---
Author Author [facility], [place], [place], [place], [place] Areas Organization [facility], [place], [place], [place], [facility] Address Unknown Phone Unavailable Care Team Providers Care Administrative Hearing Officer Name Role Phone Jose CoronaKristie DO PCP Encounter Details Care Team Description Date Type Department Jonathan Abraham [address] [place] [address] [place] [address] Jesu Reyes MD [address] [address] PARALYTIC ILEUS (Primary Dx) 07/01/2001 Inpatient [facility] BETTIE [address]E Historical OTHOPEDICS [address] [facility] [place] [phone] Social History Date Tobacco Use Types Packs/Day Years Used Never Assessed Sex Assigned at Date Recorded Not on file Industry Job Start Date Occupation Not on file Not on file Not on file Travel End Travel History Travel Start No recent travel history available. documented as of this encounter Plan of Treatment Not on filedocumented as of this encounter Visit Diagnoses Diagnosis Paralytic ileus - Primary documented in this encounter
--- OUTSIDE RECORDS SUMMARY | 2019-09-01 14:10 | XMS REPORT | Encounter Summary ---
Author Author [facility], [place], [place], [place], [place] Areas Organization [facility], [place], [place], [place], [place] Areas Address Unknown Phone Unavailable Care Team Providers Care Peanut Vendor Name Role Phone Chloe Jose Ciaran DO PCP Encounter Details Care Team Description Date Type Department Chuckie Little, DO [address] [place] [address] [phone] Ed, Physician NAUSEA WITH VOMITING (Primary Dx) 12/10/2001 Emergency [facility] in Emergency Services [address] [place] [address] [place] [phone] Social History Date Tobacco Use Types Packs/Day Years Used Never Assessed Sex Assigned at Date Recorded Not on file Industry Job Start Date Occupation Not on file Not on file Not on file Travel End Travel History Travel Start No recent travel history available. documented as of this encounter Plan of Treatment Not on filedocumented as of this encounter Visit Diagnoses Diagnosis Nausea with vomiting - Primary documented in this encounter
--- OUTSIDE RECORDS SUMMARY | 2019-09-01 14:10 | XMS REPORT | Encounter Summary ---
Author Author [facility] [place], [place], [place] Areas Organization [facility], [place], [place], [facility] Address Unknown Phone Unavailable Care Team Providers Care Expansion Envelope Maker Hand Name Role Phone Jose CoronaKristie DO PCP Encounter Details Care Team Description Date Type Department Anurag Mckeon, [address] [place] [address] Ed, Physician MIGRAINE NOS W/O MENTN INTRACTABLE (Prim salome Dx) 10/18/2002 Emergency [facility] in Emergency Services [address] [place], [place] [address] [phone] Social History Date Tobacco Use Types Packs/Day Years Used Never Assessed Sex Assigned at Date Recorded Not on file Industry Job Start Date Occupation Not on file Not on file Not on file Travel End Travel History Travel Start No recent travel history available. documented as of this encounter Plan of Treatment Not on filedocumented as of this encounter Visit Diagnoses Diagnosis Migraine, unspecified, without mention of intractable migraine without mention of status migrainosus - Primary documented in this encounter
--- OUTSIDE RECORDS SUMMARY | 2019-09-01 14:10 | XMS REPORT | Encounter Summary ---
Author Author [facility], [place], [place], [place], [place] Areas Organization [facility], Jah [place], [place], [place], [place] Areas Address Unknown Phone Unavailable Care Team Providers Care Prize Coordinator Name Role Phone Jose CoronaKristie DO PCP Encounter Details Care Team Description Date Type Department Gilmar Bravo MD [address] [place] [address] [phone] Ed, Physician ABDOMINAL PAIN OTHER SPEC SITE (Primary Dx) 10/25/2001 Emergency [facility] in Emergency Services [address] [facility] [place] [phone] Social History Date Tobacco Use Types Packs/Day [...]
--- OUTSIDE RECORDS SUMMARY | 2019-09-01 14:10 | XMS REPORT | Encounter Summary ---
Author Author [facility], [place], [place], [place], [place] Areas Organization [facility], [place], [place], [place], [facility] Address Unknown Phone Unavailable Care Team Providers Care Transcription Specialist Name Role Phone Jose Corona Ciaran DO PCP Encounter Details Care Team Description Date Type Department Wade Renee MD [address] [place], [place] [phone] Anthony Gaona DO NO ADDRESS ON FILE PULM EMBOLISM/INFARCT NOS (Primary Dx) 12/11/2002 Inpatient [facility] BETTIE [address]E Historical OTHOPEDICS [address] [place] [phone] Social History Date Tobacco Use Types Packs/Day Years Used Never Assessed Sex Assigned at Date Recorded Not on file Industry Job Start Date Occupation Not on file Not on file Not on file Travel End Travel History Travel Start No recent travel history available. documented as of this encounter Plan of Treatment Not on filedocumented as of this encounter Visit Diagnoses Diagnosis Other pulmonary embolism and infarction - Primary documented in this encounter
--- OUTSIDE RECORDS SUMMARY | 2019-09-01 14:10 | XMS REPORT | Encounter Summary ---
Author Author [facility] [place], [place], [facility] Organization [facility] [place], [place], [facility] Address Unknown Phone Unavailable Care Team Providers Care Shot Core Drill Operator Name Role Phone Jose Corona Ciaran DO PCP Encounter Details Care Team Description Date Type Department Wade Renee MD [address] [place], [place] [phone] AFTERCARE ROTARY ADJUSTER ANTICOAG USE (Primar y Dx) 12/24/2002 Inpatient [facility] Laboratory Se rvices Historical [place] [address] [place] [phone] Social History Date Tobacco Use Types Packs/Day Years Used Never Assessed Sex Assigned at Date Recorded Not on file Industry Job Start Date Occupation Not on file Not on file Not on file Travel End Travel History Travel Start No recent travel history available. documented as of this encounter Plan of Treatment Not on filedocumented as of this encounter Visit Diagnoses Diagnosis [facility] (current) use of anticoagulan ts - Primary Long-term (current) use of anticoagulan ts documented in this encounter
--- OUTSIDE RECORDS SUMMARY | 2019-09-01 14:10 | XMS REPORT | Encounter Summary ---
Author Author [facility] [place], [place], [place] [facility] Organization [facility], [place], [facility] Address Unknown Phone Unavailable Care Team Providers Care Parish Nurse Name Role Phone Jose Corona Ciaran DO PCP Encounter Details Care Team Description Date Type Department Wade Renee MD [address] [place], [place] [phone] AFTERCARE GUIDE DOG TRAINER ANTICOAG USE (Primar y Dx) 01/01/2003 Inpatient [facility] Laboratory Se rvices Historical [place] [address] [place] [phone] Social History Date Tobacco Use Types Packs/Day [...]
--- OUTSIDE RECORDS SUMMARY | 2019-09-01 14:10 | XMS REPORT | Encounter Summary ---
Author Author [facility], [place], [place], [place], [place] Areas Organization [facility], Jah [place], [place], [place], [place] Areas Address Unknown Phone Unavailable Care Team Providers Care Tool Clerk Name Role Phone Jose CoronaKristie DO PCP Encounter Details Care Team Description Date Type Department Gilmar Bravo MD [address] [place] [address] [phone] Ed, Physician NAUSEA WITH VOMITING (Primary Dx) 11/01/2001 Emergency [facility] in Emergency Services [address] [place] [phone] Social History Date Tobacco Use Types Packs/Day [...]
--- OUTSIDE RECORDS SUMMARY | 2019-09-01 14:10 | XMS REPORT | Encounter Summary ---
Author Author [facility] [place], [place], [place] [facility] Organization [facility], [place], [place], [facility] Address Unknown Phone Unavailable Care Team Providers Care Collar Padder Blindstitch Name Role Phone Jose Corona Ciaran DO PCP Encounter Details Care Team Description Date Type Department Areli Farr [address] [facility] [address] [address] VENOUS THROMBOSIS NEC (Primary Dx) 06/04/2002 Inpatient [facility] Laboratory Se rvices Historical [place] [address] [facility] [place] [phone] Social History Date Tobacco Use Types Packs/Day [...]
--- OUTSIDE RECORDS SUMMARY | 2019-09-01 14:10 | XMS REPORT | Encounter Summary ---
Author Author [facility] [place], [place], [place] Areas Organization [facility] [place] Garcia, [place], [place] Areas Address Unknown Phone Unavailable Care Team Providers Care Biometrician Name Role Phone Jose CoronaKristie DO PCP Encounter Details Care Team Description Date Type Department Jonathan Wren MD [address] [place] [address] MALFUNC VASC DEVICE/JAMES (Primary Dx) 12/02/2001 Inpatient [facility] in [facility] [address] [place] [facility] [place] [phone] Social History Date Tobacco Use Types Packs/Day Years Used Never Assessed Sex Assigned at Date Recorded Not on file Industry Job Start Date Occupation Not on file Not on file Not on file Travel End Travel History Travel Start No recent travel history available. documented as of this encounter Plan of Treatment Not on filedocumented as of this encounter Visit Diagnoses Diagnosis Mechanical complication of other vascul ar device, implant, and graft - Primary documented in this encounter
--- OUTSIDE RECORDS SUMMARY | 2019-09-01 14:10 | XMS REPORT | Encounter Summary ---
Author Author [facility], Jah Garcia [place], [place], [place] Areas Organization [facility], [place], [place], [facility] Address Unknown Phone Unavailable Care Team Providers Care Trapper Bird Name Role Phone Jose CoronaKristie DO PCP Encounter Details Care Team Description Date Type Department Wade Renee MD [address] [place], [place] [phone] CHRONIC AIRWAY OBSTRUCTION NEC (Primary Dx) 10/24/2002 Inpatient [facility] Laboratory Se rvices Historical [place] [address] [place] [phone] Social History Date Tobacco Use Types Packs/Day [...]
--- OUTSIDE RECORDS SUMMARY | 2019-09-01 14:10 | XMS REPORT | Encounter Summary ---
Author Author [facility] [place], [place], [facility] Organization [facility] [place], [place], [facility] Address Unknown Phone Unavailable Care Team Providers Care Firer Retort Name Role Phone Chloe Jose K. DO PCP Encounter Details Care Team Description Date Type Department Jonathan Garcia, DO [address] [facility] [place] [address] [phone] Ed, Physician ABDOMINAL PAIN OTHER SPEC SITE (Primary Dx) 06/29/2001 Emergency [facility] in Emergency Services [address] [facility] [place] [phone] Social History Date Tobacco Use Types Packs/Day [...]
--- OUTSIDE RECORDS SUMMARY | 2019-09-01 14:10 | XMS REPORT | Encounter Summary ---
Author Author [facility], [place], [place], [place], [place] [facility] Organization [facility] [place], [place], [place], [place] Areas Address Unknown Phone Unavailable Care Team Providers Care Looping Inspector Name Role Phone Jose CoronaKristie DO PCP Encounter Details Care Team Description Date Type Department Nicolás Mariee MD NO ADDRESS ON FILE Ed, Physician HEADACHE (Primary Dx) 05/12/2002 Emergency [facility] in Emergency Services [address] [facility] [place] [phone] Social History Date Tobacco Use Types Packs/Day [...]
--- OUTSIDE RECORDS SUMMARY | 2019-09-01 14:10 | XMS REPORT | Encounter Summary ---
Author Author [facility], [place], [place], [place], [place] Areas Organization [facility], [place], [place], [place] Areas Address Unknown Phone Unavailable Care Team Providers Care Cyber Threat Analyst Name Role Phone Jose CoronaKristie DO PCP Encounter Details Care Team Description Date Type Department Wade Renee MD [address] [place], [place] [phone] DYSURIA (Primary Dx) 12/26/2002 Inpatient [facility] Laboratory Se rvices Historical [place] [address] [place] [phone] Social History Date Tobacco Use Types Packs/Day Years Used Never Assessed Sex Assigned at Date Recorded Not on file Industry Job Start Date Occupation Not on file Not on file Not on file Travel End Travel History Travel Start No recent travel history available. documented as of this encounter Plan of Treatment Not on filedocumented as of this encounter Visit Diagnoses Diagnosis Dysuria - Primary documented in this encounter
--- OUTSIDE RECORDS SUMMARY | 2019-09-01 14:11 | XMS REPORT | Encounter Summary ---
Author Author [facility] Address Unknown Phone Unavailable Care Team Providers Care Public Works Supervisor Name Role Phone Linda Talavera PCP Reason for Referral * Consultation (Routine) Referred By Contact Referred To Contact Status Reason Specialty Diagnoses / Procedures Linda Talavera [address] [place] [address] [facility] [address] [address] Closed Specialty Services Gastroenterology Diagnoses Required Chronic pancreatitis (HCC) Bowel obstruction (HCC) Encounter Details Care Team Description Date Type Department HansaLinda jordan [address] [place] [address] [phone] Chronic pancreatitis (HCC) (Primary Dx); Bowel obstruction (HCC) 06/09/2017 Transcribe [facility] Orders Specialists [address] [id number] Social History Date Tobacco Use Types Packs/Day Years Used Never Assessed Sex Assigned at Date Recorded Not on file Industry Job Start Date Occupation Not on file Not on file Not on file Travel End Travel History Travel Start No recent travel history available. documented as of this encounter Plan of Treatment Order Schedule Name Type Priority Associated Diag noses 1 Occurrences starting 06/09/2017 until 12/07/2017 Amb Referral To Outpatient Routine Chronic pancre atitis Gastroenterology Referral (HCC) Bowel obstruction documented as of this encounter Visit Diagnoses Diagnosis Chronic pancreatitis (HCC) Chronic pancreatitis Bowel obstruction (HCC) Unspecified intestinal obstruction documented in this encounter
--- OUTSIDE RECORDS SUMMARY | 2019-09-01 14:11 | XMS REPORT | Encounter Summary ---
Author Author [facility] Address Unknown Phone Unavailable Care Team Providers Care Heavy Repairer Name Role Phone Linda Talavera DO PCP Encounter Details Care Team Description Date Type Department Linda Talavera DO [address] [place] [address] [phone] 05/27/2017 [facility] Primar y Visit Care-[address] [address] Social History Date Tobacco Use Types Packs/Day Years Used Never Assessed Sex Assigned at Date Recorded Not on file Industry Job Start Date Occupation Not on file Not on file Not on file Travel End Travel History Travel Start No recent travel history available. documented as of this encounter Miscellaneous Notes * Clinic Note - Linda Talavera DO - 05/27/2017 12:00 AM TELEPHONE OPERATOR RECEPTIONIST [facility] Care at [address] [phone] PATIENT: MEGAN HAWKINS MR #: [id number] : 1965 DATE SEEN: 05/27/2017 Chief Complaint Megan is here to establish care. History of Present Illness Patient is 51-year-old female here to establish care. Patient has a past medical history of chronic pancreatitis, chronic bowel obstruction, blood clots, lupus, and COPD. Patient states that she has been dealing with a few specialists. She sees Dr. Almonte for gastroenterology. Patient sees Dr. Hernandez for hematology/on cology, and Dr. Blunt for severe COPD. Patient is currently still smoking. She is trying to stop smoking. She does sleep with a Ventimask because of her COPD w ith asthma. Patient states that she has tried Chantix in the past, but it has no t helped. She is willing to try something else. Patient does take pain medicatio n for her conditions, but it was filled by her primary care doctor, who she does not want to see anymore. Patient also states that she would like to transfer ov er to get her specialists to be done all through [facility], if possible. Review of Systems Constitutional: Denies fever, chills, or unexpected weight changes. Cardiovascular: Denies chest pains or palpitations. Pulmonary: Denies shortness of breath or cough. Gastrointestinal: Denies nausea, vomiting, diarrhea, or constipation. Positive a bdominal pain. Genitourinary: Denies dysuria or frequency. Musculoskeletal: Positive back pain. Allergies codeine Toradol Imitrex Anaspaz Compazine Reglan low-dose aspirin Current Medications Horizant 600 mg oral tablet, extended release (gabapentin), 600 mg, Oral, 2 time s a day levothyroxine 75 mcg (0.075 mg) oral tablet (levothyroxine), 75 mcg, Oral, Every 24 hours lisinopril 20 mg oral tablet (lisinopril), 20 mg, Oral, Daily MS Contin (morphine), , Oral MS Contin 30 mg/12 hr oral tablet, extended release (morphine), 30 mg, Oral, Precious ry 12 hours tizanidine 4 mg oral tablet [...] Positive depression. Positive anxiety. Negative homicidal or suicid al ideation. Negative psychotic episodes. Positive normal rate of thinking. Posi tive normal judgement. Impression 1. Cervical cancer (C53.9). 2. Encounter to establish care (Z76.89). 3. Chronic abdominal pain (R10.9). 4. Needs smoking cessation education (F17.200). 5. Asthma with COPD (J44.9). 6. Bowel obstruction (K56.609). 7. Chronic pancreatitis (K86.1). Plan Medication changes this visit: New Cymbalta 60 mg oral delayed release capsule, 120 mg, Oral, Q24H, Quantity: 60, R efills: 1 Wellbutrin XL 150 mg/24 hours oral tablet, extended release, 150 mg, Oral, Q24H, Quantity: 30, Refills: 1 Zofran ODT 8 mg oral tablet, disintegrating, 8 mg, Oral, TID, Quantity: 90, Refi lls: 1 Orders this visit: Referral - Request, Gastroenterology, Within 2 weeks, chronic pancreatitis edvin l obstruction Referral - Request, Hematology, Within 2 weeks, blood clots lupus cervical ca ncer Referral - Request, Pulmonary, Within 2 weeks, copd with asthma with venti mask Referral - Request, Pain Clinic, Within 2 weeks, chronic abdominal , back and le g pain For her bowels, we will set [...] her on Wellbutrin, since patient has failed Ch antix, to help with her smoking cessation since she has COPD. Patient advised th at it makes the COPD worse. Also, we discussed smoking cessation for about 3-5 m inutes. We will also have Wellbutrin to help her with her depression and anxiety. Pieter interiano did lose her a year and a half ago to a triple A, and since then she h as been very depressed and has not spoken to anybody and has not taken anything for it. Patient encouraged to speak to a therapist or see a psychiatrist. Leilani welch declined for it right now. She says when she gets settled from moving, she wi ll consider it. Reviewed ambulatory nursing intake notes from today. Patient is agreeable to bladimir castellano TR: [id number] ALICE#: [id number] PHONE OPERATOR RECEPTIONIST documented in this encounter Plan of Treatment Not on filedocumented as of this encounter Visit Diagnoses Not on filedocumented in this encounter
--- OUTSIDE RECORDS SUMMARY | 2019-09-01 14:11 | XMS REPORT | Encounter Summary ---
Author Author [facility] Address Unknown Phone Unavailable Care Team Providers Care Broaching Machine Operator Name Role Phone PCP Unavailable Encounter Details Care Team Description Date Type Department [facility] [address] [place], [place] [phone] Social History Date Tobacco Use Types Packs/Day [...] Procedure Name Priority Date/Time Associated Diag nosis HEPARIN INDUCED PLATELET Routine 07/29/2000 ANTIBODY 1:15 PM CDT documented in this encounter Results * Heparin Induced Platelet Antibody (07/29/2000 1:15 PM CDT) Heparin NEGATIVE SUNQUEST Antibody Specimen Blood Performing Organization Address City/State/Zipcode Ph one Number [facility] [address] [place], [place] [address] SUNQUEST documented in this encounter Visit Diagnoses Not on filedocumented in this encounter
--- OUTSIDE RECORDS SUMMARY | 2019-09-01 14:11 | XMS REPORT | Encounter Summary ---
Author Author [facility], [place], [place], [place], [facility] Organization [facility], [place], [place], [facility] Address Unknown Phone Unavailable Care Team Providers Care Director Of Industrial Relations Name Role Phone Jose Corona Ciaran DO PCP Encounter Details Care Team Description Date Type Department Sj Ed, Physician ABDOMINAL PAIN UNSPEC SITE (Primary Dx) 05/30/2001 Emergency [facility] Jopl in Emergency Services [address] [place] [phone] Social History Date Tobacco Use Types Packs/Day [...]
--- OUTSIDE RECORDS SUMMARY | 2019-09-01 14:11 | XMS REPORT | Encounter Summary ---
Author [facility] [place] [place], [facility] Organization [facility] [place], [place], [facility] Address Unknown Phone Unavailable Care Team Providers Care Insurance Claims Examiner Name Role Phone Chloe Jose Ciaran DO PCP Encounter Details Care Team Description Date Type Department Jonathan Garcia, DO [address] [facility] [place] [address] [phone] Ed, Physician CHEST PAIN NOS (Primary Dx) 06/11/2001 Emergency [facility] in Emergency Services [address] [place] [address] [place] [phone] Social History Date Tobacco Use Types Packs/Day [...]
--- OUTSIDE RECORDS SUMMARY | 2019-09-01 14:11 | XMS REPORT | Encounter Summary ---
Author Author [facility] Address Unknown Phone Unavailable Care Team Providers Care Junior Loan Processor Name Role Phone Linda Talavera DO PCP Encounter Details Care Team Description Date Type Department Linda Talavera DO [address] [place] [address] [phone] 10/18/2017 Documentation [facility] Primut y Care-Ali Chukson [address] [place] [address] [place] [address] Social History Date Tobacco Use Types Packs/Day [...]
--- OUTSIDE RECORDS SUMMARY | 2019-09-01 14:11 | XMS REPORT | Encounter Summary ---
Author Author [facility] [place], [place], [place] Areas Organization [facility], [place], [place] Address Unknown Phone Unavailable Care Team Providers Care Pneumatic Tester Mechanic Name Role Phone Chloe Jose Ciaran DO PCP Encounter Details Care Team Description Date Type Department Jesu Reyes MD [address] [place] [address] [phone] MECHANICAL COMPLIC OF GASTROSTOMY (Prima ry Dx) 06/16/2001 Inpatient [facility] Medical Surgical [address] [facility] [place] [phone] Social History Date Tobacco Use Types Packs/Day [...] encounter Visit Diagnoses Diagnosis Mechanical complication of gastrostomy - Primary documented in this encounter
--- OUTSIDE RECORDS SUMMARY | 2019-09-01 14:11 | XMS REPORT | Encounter Summary ---
Author Author [facility], [place], [place], [place], [facility] Organization [facility], [place], [place], [place] Areas Address Unknown Phone Unavailable Care Team Providers Care Dining Room Attendant Name Role Phone Jose CoronaKristie DO PCP Encounter Details Care Team Description Date Type Department Justo Hinojosa MD [address] [facility] [place] [phone] ABDOMINAL PAIN UNSPEC SITE (Primary Dx) 06/15/2001 Inpatient [facility] [address] [facility] [place] [phone] Social History Date Tobacco Use Types Packs/Day [...]
--- OUTSIDE RECORDS SUMMARY | 2019-09-01 14:11 | XMS REPORT | Encounter Summary ---
Author Author [facility] [place], [place], [place] Areas Organization [facility], [place], [facility] Address Unknown Phone Unavailable Care Team Providers Care Photostatic Copy Maker Name Role Phone ChloeJose king Ciaran BOWIE PCP Encounter Details Care Team Description Date Type Department Baljeet Aguilar, [address] [facility] [place] [phone] Ed, Physician UNSPEC CONSTIPATION (Primary Dx) 06/22/2001 Emergency [facility] in Emergency Services [address] [place] [address] [place] [phone] Social History Date Tobacco Use Types Packs/Day [...]
--- OUTSIDE RECORDS SUMMARY | 2019-09-01 14:11 | XMS REPORT | Encounter Summary ---
Author Author [facility] [place], [place] Areas Organization [facility] [place], [place], [facility] Address Unknown Phone Unavailable Care Team Providers Care Mental Tester Name Role Phone ChloeJose king Ciaran BOWIE PCP Encounter Details Care Team Description Date Type Department Baljeet Aguilar, DO [address] [place] [phone] Ed, Physician ABDOMINAL PAIN LUQ (Primary Dx) 05/23/2001 Emergency [facility] in Emergency Services [address] [place], [place] [address] [phone] Social History Date Tobacco Use Types Packs/Day [...]
--- OUTSIDE RECORDS SUMMARY | 2019-09-01 14:11 | XMS REPORT | Encounter Summary ---
Author Author [facility] [place], [place], [place], [place] Areas Organization [facility] [place], [place], [place], [place] Areas Address Unknown Phone Unavailable Care Team Providers Care Liner Worker Name Role Phone Jose Corona Ciaran DO PCP Encounter Details Care Team Description Date Type Department Jesu Reyes MD [address] [place] [address] 06/15/2001 Emergency [facility] Jo in Emergency Services [address] [place] [phone] Social History Date Tobacco Use Types Packs/Day [...]
--- OUTSIDE RECORDS SUMMARY | 2019-09-01 14:11 | XMS REPORT | Encounter Summary ---
Author Author [facility] Address Unknown Phone Unavailable Care Team Providers Care Machine Crater Name Role Phone Linda Talavera DO PCP Encounter Details Care Team Description Date Type Department Linda Talavera DO [address] [place] [address] [phone] 06/09/2017 Documentation [facility] GI Specialists [address] [place] [address] Social History Date Tobacco Use Types Packs/Day [...]
--- OUTSIDE RECORDS SUMMARY | 2019-09-01 14:11 | XMS REPORT | Encounter Summary ---
Author Author [facility], [place], [place], [place], [facility] Organization [facility] [place], [place], [facility] Address Unknown Phone Unavailable Care Team Providers Care Ward Attendant Name Role Phone Jose Corona Ciaran DO PCP Encounter Details Care Team Description Date Type Department Prem Talley MD [address] [place] [phone] INTESTINAL OBSTRUCT NOS (Primary Dx) 05/31/2001 Inpatient [facility] [address] Historical ONCOLOGY [address] [place] [phone] Social History Date Tobacco Use Types Packs/Day [...]
--- OUTSIDE RECORDS SUMMARY | 2019-09-01 14:11 | XMS REPORT | Clinical Summary ---
Author Author [facility] Organization [facility] Address Unknown Phone Unavailable Care Team Providers Care Metal Milling Machine Operator Name Role Phone Linda Talavera DO PCP Allergies Not on File Medications Not on file Active Problems Not on file Social History Date Tobacco Use Types Packs/Day Years Used Never Assessed Sex Assigned at Date Recorded Not on file Industry Job Start Date Occupation Not on file Not on file Not on file Travel End Travel History Travel Start No recent travel history available. Last Filed Vital Signs Not on file Plan of Treatment Health Maintenance Due Date Last Done Comments Hepatitis C Screen 1965 Medicare Annual Wellness 1965 Td # 1965 Pneumococcal Vaccine: 1970 Pediatrics (0 to 5 Years) and At-Risk Patients (6 to 64 Years) (1 of 1 - PPSV23) Cervical Cancer Screening 1985 via Pap Smear Colorectal Screening via 2014 Colonoscopy Mammogram Screening 2014 Zoster Vaccine# (1 of 2) 2014 Influenza Vaccine (Season 02/17/2020 Ended) Results Not on filefrom Last 3 Months Insurance Type Payer Benefit Subscriber ID Effective Phone Address Plan / Dates Group Medicare MEDICARE MEDICARE xxxxxxxxxx 1992-P [place] PART [place] B [place], [place]
--- OUTSIDE RECORDS SUMMARY | 2019-09-01 14:13 | XMS REPORT | Encounter Summary ---
Author Author [facility] Organization [facility] Address Unknown Phone Unavailable Care Team Providers Care Industrial Truck Operator Name Role Phone Shelbi Aleman RN Unavailable Unavailable Mohini Malhotra MD Unavailable Jonathan Pickett RN Unavailable Unavailable Nima Tenorio APRN PCP Chetan Dominguez MD 21 Encounter Details Care Team Description Date Type Department 07/03/2019 Travel Social History Date Tobacco Use Types Packs/Day Years Used Current Every Day Smoker Cigarettes 1 Smokeless Tobacco: Never Used Drinks/Week oz/Week Comments Alcohol Use No Sex Assigned at Date Recorded Not on file Industry Job Start Date Occupation Not on file Not on file Not on file Travel End Travel History Travel Start No recent travel history available. documented as of this encounter Functional Status Date of Assessment Functional Status Response 07/26/2013 Does the patient have a hearing impairment: No 07/26/2013 Does the patient have a visual impairment: No 07/26/2013 Does the patient have impaired ambulation: No 07/26/2013 Does the patient have an activity of daily living No (ADL) impairment: 07/26/2013 Does the patient have an instrumental activity of No daily living (IADL) impairment: Date of Assessment Cognitive Status Response 07/26/2013 Does the patient have a cognitive impairment: No documented as of this encounter Plan of Treatment Not on filedocumented as of this encounter Visit Diagnoses Not on filedocumented in this encounter
--- OUTSIDE RECORDS SUMMARY | 2019-09-01 14:13 | XMS REPORT | Clinical Summary ---
Author Author [facility] Organization [facility] Address Unknown Phone Unavailable Care Team Providers Care Director Embalmer Name Role Phone Shelbi Aleman RN Unavailable Unavailable Mohini Malhotra MD Unavailable Jonathan Pickett RN Unavailable Unavailable Nima Tenorio APRN PCP Chetan Dominguez MD 21 Source Comments Some departments are not documenting in the electronic medical record. If you d o not see the information that you expected, contact Release of Information in [facility] Information Management department at [phone] for further assistan ce in locating additional records.[facility] Allergies Comments Active Allergy Reactions Severity Noted Date Adhesive Tape-Silicones RASH High 2014 Aspirin ANAPHYLAXIS High 07/24/2013 Codeine ANAPHYLAXIS High 07/24/2013 Prochlorperazine ANAPHYLAXIS High 07/24/2013 Edisylate Droperidol ANAPHYLAXIS High 07/24/2013 Arm swelling and rash per Pt. Sumatriptan Succinate EDEMA High 07/25/19 14 difficulty breathing Metoclopramide SHORTNESS OF Medium 05/17/2019 BREATH Metoclopramide Hcl ANAPHYLAXIS High 07/24/2013 Ketorolac Tromethamine ANAPHYLAXIS High 014 Medications End Date Status Medication Sig Dispensed Refills Start Date Active ondansetron (ZOFRAN ODT) Dissolve 8 mg 0 8 mg rapid dissolve by mouth tablet every 6 hours as needed for Nausea or Vomiting. Place on tongue to disolve. Active albuterol-ipratropium Inhale 3 mL 0 (DUO-NEB, DUO-VENT) 0.5 solution by mg-3 mg(2.5 mg base)/3 mL nebulizer as nebulizer solution directed every 6 hours as needed for Wheezing. Active rivaroxaban (XARELTO) 20 Take 20 mg by 0 mg tablet mouth daily. Take with food. Active buprenorphine HCl Place 75 mcg 0 (BELBUCA) 75 mcg film inside cheek (side of mouth) twice daily. Active lisinopril (PRINIVIL; Take 20 mg by 0 ZESTRIL) 20 mg tablet mouth daily as needed (For Blood Pressure over 140/90). Active arbqzdyudvx-rtgsefuql-bmg Inhale 1 puff 0 anter (TRELEGY ELLIPTA) by mouth into 100-62.5-25 mcg dsdv the lungs daily. Active hydrOXYzine (ATARAX) 50 Take 50 mg by 0 mg tablet mouth three times daily as needed for Itching. Active levothyroxine (SYNTHROID) Take 75 mcg 0 75 mcg tablet by mouth daily 30 minutes before breakfast. Active timolol maleate Apply 1 drop 0 (TIMOPTIC) 0.5 % to both eyes ophthalmic drops twice daily. Active Diphenhydramine-Phenyleph Take 1 tablet 0 rine 25-10 mg tab by mouth every 6 hours as needed. Active morphine IR (MS-IR) 15 mg Take 15 mg by 0 tablet mouth twice daily Active omeprazole DR(+) Take 20 mg by 0 (PRILOSEC) 20 mg capsule mouth daily before breakfast. Active albuterol (PROAIR HFA, Inhale 2 0 VENTOLIN HFA, OR puffs by PROVENTIL HFA) 90 mouth into mcg/actuation inhaler the lungs every 6 hours as needed for Wheezing or Shortness of Breath. Shake well before use. Active pregabalin (LYRICA) 50 mg Take 50 mg by 0 /0 capsule mouth every 8 9 hours as needed. Active naphazoline 0.025 % Apply 1 drop 0 /pheniramine 0.3 % (EYE to both eyes ALLERGY RELIEF) 0.025/0.3 twice daily % drop as needed. Active fondaparinux (ARIXTRA) 0 7.5 mg/0.6 mL injection syringe Active cyclobenzaprine 0 (FLEXERIL) 10 mg tablet 0 Active Problems Problem Noted Date Suicidal ideation 07/24/2013 Encounters Care Team Description Date Type Specialty Matthieu Campbell MD Chronic deep vein thrombosis (DVT) of corey th lower extremities, unspecified vein (HCC) (Primary Dx) 07/03/2019 Office Visit Oncology 07/03/2019 Travel Matthieu Campbell MD Follow-up Phone Call 07/02/2019 Telephone Oncology Matthieu Campbell MD Other (appt ) 06/22/2019 Telephone Oncology Matthieu Campbell MD Appointment Request 06/07/2019 Telephone Oncology Matthieu Campbell MD Appointment (06/04 appointment ) 06/04/2019 Telephone Oncology from Last 3 Months Family History Medical History Relation Name Comments Coronary Artery Disease Father Cancer-Breast Maternal Aunt Cancer Maternal Grandfather Cancer-Lung Maternal Grandmother Thyroid Disease Maternal Grandmother Cancer Mother Hypertension Mother Rashes/Skin Problems Mother Cancer-Breast Sister Relation Name Status Comments Father Maternal Aunt Maternal Grandfather Maternal Grandmother Mother Sister Social History Date Tobacco Use Types Packs/Day [...] Signs Reading Time Taken Comments Vital Sign 130/87 07/03/2019 1:23 PM CDT Blood Pressure 95 07/03/2019 1:23 PM CDT Pulse 36.5 C (97.7 F) 07/03/2019 1:23 PM CDT Temperature 16 07/03/2019 1:23 PM CDT Respiratory Rate 93% 07/03/2019 1:23 PM CDT Oxygen Saturation - - Inhaled Oxygen Concentration 77.1 kg (170 lb) 07/03/2019 1:23 PM CDT Weight 170.2 cm (5' 7.01") 07/03/2019 1:23 PM CDT Height 26.62 07/03/2019 1:23 PM CDT Body Mass Index Plan of Treatment Health Maintenance Due Date Last Done Comments MEDICARE ANNUAL WELLNESS 1964 VISIT HIV SCREENING 08/11/1979 DTAP/TDAP VACCINES (1 - 1982 Tdap) HEPATITIS C SCREENING 1982 PHYSICAL (COMPREHENSIVE) 1982 EXAM CERVICAL CANCER SCREENING 1985 BREAST CANCER SCREENING 2004 COLORECTAL CANCER 2014 SCREENING SHINGLES RECOMBINANT 2014 VACCINE (1 of 2) INFLUENZA VACCINE 01/17/2020 Implants Device Identifier Shelf Expiration Date Model / Serial / L ot Implanted Type Area Manufactur er [id number] 09/16/2019 [id number] / N/A / [id number] Port Implantable 8 Float Point Unit Left: Groin C R Siom Intermediate - Sn/A BARD:ACCES Implanted: Qty: 1 on 05/31/2018 by Jewel Prakash MD at [facility] [id number] 09/16/2019 [id number] / N/A / [id number] Port Implantable 8 Float Point Unit Left: Groin C R Siom Intermediate - Sn/A BARD:ACCES Implanted: Qty: 1 on 06/29/2018 by Adrian Meadows MD at [facility] Results Not on filefrom Last 3 Months Insurance Type Payer Benefit Subscriber ID Effective Phone Address Plan / Dates Group Medicare MEDICARE MEDICARE xxxxxxxxxxx 1992-P PART [place] resent [place] 2016-[place], [place] Advance Directives Patient Bait Man Explanation Type Date Recorded Advance 07/24/2013 2:26 PM Directive/DPOA Date Inactivated Comments Code Status Date Activated 07/26/2013 7:23 PM Full Code 07/24/2013 7:50 PM Provider has discussed Code Status No, discussion no t w/Patient or Family? necessary based on Dx
--- OUTSIDE RECORDS SUMMARY | 2019-09-01 14:14 | XMS REPORT | Encounter Summary ---
Author Author [facility] Organization [facility] Address Unknown Phone Unavailable Care Team Providers Care Supervisor Kosher Dietary Service Name Role Phone Jonathan De Paz MD PCP Unavailable Encounter Details Care Team Description Date Type Department Sergei Jessica MD [address] [place] [address] Chest pain, unspecified (Primary Dx) 06/02/2000 Outpatient HIS [facility] Historical REHAB Social History Date Tobacco Use Types Packs/Day [...]
--- OUTSIDE RECORDS SUMMARY | 2019-09-01 14:14 | XMS REPORT | Encounter Summary ---
Author Author [facility] Organization [facility] Address Unknown Phone Unavailable Care Team Providers Care Preschool Principal Name Role Phone Jonathan De Paz MD PCP Unavailable Encounter Details Care Team Description Date Type Department Nima Mirza MD [address] [place] [phone] Other and unspecified mycoses (Primary D x); Unspecified septicemia(038.9); Abdominal pain, unspecified site; Unspecified protein-calorie malnutrition 08/13/2000 Outpatient HIS [facility] IT[facility] Historical IP Social History Date Tobacco Use Types Packs/Day [...] encounter Visit Diagnoses Diagnosis Other and unspecified mycoses - Primary Unspecified septicemia(038.9) Unspecified septicemia Abdominal pain, unspecified site Unspecified protein-calorie malnutritio n documented in this encounter
--- OUTSIDE RECORDS SUMMARY | 2019-09-01 14:14 | XMS REPORT | Encounter Summary ---
Author Author [facility] Organization [facility] Address Unknown Phone Unavailable Care Team Providers Care Technical Sales Representative Name Role Phone Shelbi Aleman RN Unavailable Unavailable Mohini Malhotra MD Unavailable Jonathan Pickett RN Unavailable Unavailable Nima Tenorio APRN PCP Chetan Dominguez MD 21 Reason for Visit * Reason Comments Follow-up Phone Call Encounter Details Care Team Description Date Type Department Matthieu Campbell MD [address] [place] [address] [phone] Follow-up Phone Call 07/02/[address] [phone] Social History Date Tobacco Use Types Packs/Day [...] impairment: No documented as of this encounter Miscellaneous Notes * Telephone Encounter - Brittany Padron RN - 07/02/2019 2:04 PM CDT 1401: RN placed call and spoke to pt. Pt states she got a doppler of her right l ower extremity at [address] with Dr. Stovall office on Tuesday. She mentioned t hat the clot has gotten bigger and it's getting more difficult to move. RN infor med pt hat Dr. Campbell is happy to see her tomorrow. Let pt know I would reach o ut to their office to get results faxed over. Pt comfortable with plan. * Telephone Encounter - Brittany Padron RN - 07/02/2019 2:00 PM CDT 1315: RN placed call and spoke to pt regarding her upcoming appt. Informed pt th at Dr. Campbell recommended we push back her appt to a later time due to the COVI D-19. Pt states she has been dealing with this for months and would like to be seen. Pt states she got studies last week that showed her DVT had grown. RN info rmed pt I would speak with Dr. Campbell regarding plan moving forward. Pt comfort able with plan. documented in this encounter Plan of Treatment Not on filedocumented as of this encounter Visit Diagnoses Not on filedocumented in this encounter
--- OUTSIDE RECORDS SUMMARY | 2019-09-01 14:14 | XMS REPORT | Encounter Summary ---
Author Author [facility] Organization [facility] Address Unknown Phone Unavailable Care Team Providers Care Fence Maker Name Role Phone Jonathan De Paz MD PCP Unavailable Encounter Details Care Team Description Date Type Department Sergei Jessica MD [address] [place] [address] Chest pain, unspecified (Primary Dx) 06/02/2000 Outpatient HIS [facility] Historical Social History Date Tobacco Use Types [...]
--- OUTSIDE RECORDS SUMMARY | 2019-09-01 14:14 | XMS REPORT | Encounter Summary ---
Author Author [facility] Organization [facility] Address Unknown Phone Unavailable Care Team Providers Care Distribution Transformer Assembler Name Role Phone Jonathan De Paz MD PCP Unavailable Encounter Details Care Team Description Date Type Department Sergei Jessica MD [address] [place] [address] Chest pain, unspecified (Primary Dx) 05/26/2000 Outpatient HIS [facility] CE NTER Historical Social History Date Tobacco [...]
--- OUTSIDE RECORDS SUMMARY | 2019-09-01 14:14 | XMS REPORT | Encounter Summary ---
Author Author [facility] Organization [facility] Address Unknown Phone Unavailable Care Team Providers Care Radiology Technologist Name Role Phone Jonathan De Paz MD PCP Unavailable Encounter Details Care Team Description Date Type Department Mary Beth Rodriguez, LILIANE [address] [place] [phone] Constipation (Primary Dx); Type II or unspecified type diabetes mellitus without mention of complication, not stated as uncontrolled; Pleurisy without mention of effusion or current tuberculosis; General symptoms NEC 09/14/2000 Outpatient HIS [facility] NTER Historical Social History Date Tobacco Use [...] as of this encounter Visit Diagnoses Diagnosis Constipation - Primary Type II or unspecified type diabetes me llitus without mention of complication, not stated as uncontrolled Pleurisy without mention of effusion or current tuberculosis General symptoms NEC Other general symptoms documented in this encounter
--- OUTSIDE RECORDS SUMMARY | 2019-09-01 14:14 | XMS REPORT | Encounter Summary ---
Author Author [facility] Organization [facility] Address Unknown Phone Unavailable Care Team Providers Care Temperer Name Role Phone Jonathan De Paz MD PCP Unavailable Encounter Details Care Team Description Date Type Department Sergei Jessica MD [address] [place] [address] Paul Castellanos MD NO ADDRESS ON FILE Other chest pain (Primary Dx) 06/03/2000 Outpatient [facility] Historical Social History Date Tobacco Use Types [...]
--- OUTSIDE RECORDS SUMMARY | 2019-09-01 14:14 | XMS REPORT | Encounter Summary ---
Author Author [facility] Organization [facility] Address Unknown Phone Unavailable Care Team Providers Care Leather Sponger Name Role Phone Shelbi Aleman RN Unavailable Unavailable No Pcp, Na PCP Unavailable Mohini Malhotra MD Unavailable Jonathan Pickett RN Unavailable Unavailable Nima Tenorio APRN PCP Chetan Dominguez MD 21 Encounter Details Care Team Description Date Type Department Mayra De Paz 03/30/2019 Telephone The [facility] [address] [facility] [phone] [place], [place] [id number] Social History Date Tobacco Use Types Packs/Day Years Used Current Every Day Smoker Cigarettes 1 Drinks/Week oz/Week Comments Alcohol Use No Sex [...]
--- OUTSIDE RECORDS SUMMARY | 2019-09-01 14:14 | XMS REPORT | Encounter Summary ---
Author Author [facility] Organization [facility] Address Unknown Phone Unavailable Care Team Providers Care Gas Transfer Operator Name Role Phone Shelbi Aleman RN Unavailable Unavailable Mohini Malhotra MD Unavailable Jonathan Pickett RN Unavailable Unavailable Nima Tenorio APRN PCP Chetan Dominguez MD 21 Reason for Visit * Reason Comments Appointment Request Encounter Details Care Team Description Date Type Department Matthieu Campbell MD [address] [place] [address] [phone] Appointment Request 06/07/[address] [address] Social History Date Tobacco Use Types Packs/Day [...] encounter Miscellaneous Notes * Telephone Encounter - Bruna Sarabia - 06/07/2019 3:48 PM IT SYSTEMS ENGINEER Patient called requesting to reschedule the return appointment with Dr. Campbell that she missed on 06/04/19 due to being hospitalized. Informed the patient that due to limited availability the nurse would need to be consulted about schedulin g and she would be called back. SYSTEMS ENGINEER documented in this encounter Plan of Treatment Not on filedocumented as of this encounter Visit Diagnoses Not on filedocumented in this encounter
--- OUTSIDE RECORDS SUMMARY | 2019-09-01 14:14 | XMS REPORT | Encounter Summary ---
Author Author [facility] Organization [facility] Address Unknown Phone Unavailable Care Team Providers Care Power Wood Sawyer Name Role Phone Jonathan De Paz MD PCP Unavailable Encounter Details Care Team Description Date Type Department Manuel Quintana MD NO ADDRESS ON FILE Other chest pain (Primary Dx) 06/03/2000 Emergency [facility] Emergency Department [address] [place] [address] Social History Date Tobacco Use Types Packs/Day [...]
--- OUTSIDE RECORDS SUMMARY | 2019-09-01 14:14 | XMS REPORT | Encounter Summary ---
Author Author [facility] Organization [facility] Address Unknown Phone Unavailable Care Team Providers Care Fast Food Fry Cook Name Role Phone Shelbi Aleman RN Unavailable Unavailable Mohini Malhotra MD Unavailable Jonathan Pickett RN Unavailable Unavailable Nima Tenorio APRN PCP Chetan Dominguez MD 21 Reason for Visit * Reason Comments Other APPT CONFIRMATION Encounter Details Care Team Description Date [place] [address] [place] [address] [phone] Other (APPT CONFIRMATION ) 06/01/[address] [phone] Social History Date Tobacco Use Types Packs/Day [...]
--- OUTSIDE RECORDS SUMMARY | 2019-09-01 14:14 | XMS REPORT | Encounter Summary ---
Author Author [facility] Organization [facility] Address Unknown Phone Unavailable Care Team Providers Care Safety Attendant Name Role Phone Jonathan De Paz MD PCP Unavailable Encounter Details Care Team Description Date Type Department Sourav Foreman MD [address] [place] [address] [address] [facility] [place] [address] Other and unspecified mycoses (Primary D x); Unspecified septicemia(038.9); Abdominal pain, unspecified site; Unspecified protein-calorie malnutrition 08/03/2000 Outpatient HIS [facility] ITAL Historical IP Social History Date [...]
--- OUTSIDE RECORDS SUMMARY | 2019-09-01 14:14 | XMS REPORT | Encounter Summary ---
Author Author [facility] Organization [facility] Address Unknown Phone Unavailable Care Team Providers Care Prisoner Classification Interviewer Name Role Phone Jonathan De Paz MD PCP Unavailable Encounter Details Care Team Description Date Type Department Sourav Foreman MD [address] [place] [address] [place] [address] Other and unspecified mycoses (Primary D x) 08/03/2000 Inpatient [facility] Intensive Care [facility] [place] [address] Social History Date Tobacco Use Types Packs/Day [...] Diagnosis Other and unspecified mycoses - Primary documented in this encounter
--- OUTSIDE RECORDS SUMMARY | 2019-09-01 14:14 | XMS REPORT | Encounter Summary ---
Author Author [facility] Organization [facility] Address Unknown Phone Unavailable Care Team Providers Care Fast Food Services Manager Name Role Phone Jonathan De Paz MD PCP Unavailable Encounter Details Care Team Description Date Type Department Mary Beth Rodriguez ANP [address] [place] [phone] Nausea alone (Primary Dx); Dysuria; Backache, unspecified; Abnormal glucose 08/25/2000 Outpatient HIS [facility] Historical Social History Date [...] of this encounter Visit Diagnoses Diagnosis Nausea alone - Primary Dysuria Backache, unspecified Abnormal glucose documented in this encounter
--- OUTSIDE RECORDS SUMMARY | 2019-09-01 14:14 | XMS REPORT | Encounter Summary ---
Author Author [facility] Organization [facility] Address Unknown Phone Unavailable Care Team Providers Care Rocket Test Fire Worker Name Role Phone Jonathan De Paz MD PCP Unavailable Encounter Details Care Team Description Date Type Department [facility] [address] [place] [phone] Other and unspecified mycoses (Primary D x); Unspecified septicemia(038.9); Abdominal pain, unspecified site; Unspecified protein-calorie malnutrition 08/07/[address] [facility] ITAL Historical IP Social History Date Tobacco [...]
--- OUTSIDE RECORDS SUMMARY | 2019-09-01 14:14 | XMS REPORT | Encounter Summary ---
Author Author [facility] Organization [facility] Address Unknown Phone Unavailable Care Team Providers Care Office Messenger Name Role Phone Jonathan De Paz MD PCP Unavailable Encounter Details Care Team Description Date Type Department Lei Bonilla MD [address] [place] [address] Abdominal pain, unspecified site (Primar y Dx) 07/11/2000 Outpatient [facility] Social History Date Tobacco Use Types Packs/Day [...]
--- OUTSIDE RECORDS SUMMARY | 2019-09-01 14:14 | XMS REPORT | Encounter Summary ---
Author Author [facility] Organization [facility] Address Unknown Phone Unavailable Care Team Providers Care Buffing Turner And Counter Name Role Phone Jonathan De Paz MD PCP Unavailable Encounter Details Care Team Description Date Type Department Mary Beth Rodriguez, LILIANE [address] [place] [phone] Pneumonia due to other specified bacteri a(482.89) (Primary Dx); Shortness of breath 08/18/2000 Outpatient HIS [facility] CE [facility] Historical Social History Date [...] as of this encounter Visit Diagnoses Diagnosis Pneumonia due to other specified bacter ia(482.89) - Primary Pneumonia due to other specified bacter ia Shortness of breath documented in this encounter
--- OUTSIDE RECORDS SUMMARY | 2019-09-01 14:14 | XMS REPORT | Encounter Summary ---
Author Author [facility] Organization [facility] Address Unknown Phone Unavailable Care Team Providers Care Syrup Mixer Helper Name Role Phone Jonathan De Paz MD PCP Unavailable Encounter Details Care Team Description Date Type Department Lei Bonilla MD [address] [place] [address] Abdominal pain, unspecified site (Primar y Dx) 07/11/2000 Outpatient [facility] Services Physician Rukhsana [address] [place] [address] [address] [place] [address] Social History Date Tobacco Use Types Packs/Day [...]
--- OUTSIDE RECORDS SUMMARY | 2019-09-01 14:14 | XMS REPORT | Encounter Summary ---
Author Author [facility] Organization [facility] Address Unknown Phone Unavailable Care Team Providers Care Enroller Name Role Phone Shelbi Aleman RN Unavailable Unavailable Mohini Malhotra MD Unavailable Jonathan Pickett RN Unavailable Unavailable Nima Tenorio APRN PCP Chetan Dominguez MD 21 Reason for Visit * Reason Comments Appointment 06/04 appointment Encounter Details Care Team Description Date Type Department Matthieu Campbell MD [address] [place] [address] [phone] Appointment (06/04 appointment ) 06/04/[address] [address] Social History Date Tobacco Use Types Packs/Day [...]
--- OUTSIDE RECORDS SUMMARY | 2019-09-01 14:14 | XMS REPORT | Encounter Summary ---
Author Author [facility] Organization [facility] Address Unknown Phone Unavailable Care Team Providers Care Field Map Technician Name Role Phone Jonathan De Paz MD PCP Unavailable Encounter Details Care Team Description Date Type Department Jerson Tan DO NO ADDRESS ON FILE Chest pain, unspecified (Primary Dx); Other nonspecific abnormal cardiovascular system function study 05/23/[address] [facility] ITAL Historical IP Social History Date [...] Diagnoses Diagnosis Chest pain, unspecified - Primary Other nonspecific abnormal cardiovascul ar system function study documented in this encounter
--- OUTSIDE RECORDS SUMMARY | 2019-09-01 14:14 | XMS REPORT | Encounter Summary ---
Author Author [facility] Organization [facility] Address Unknown Phone Unavailable Care Team Providers Care Sheet Metal Worker Name Role Phone Jonathan De Paz MD PCP Unavailable Encounter Details Care Team Description Date Type Department Lei Bonilla MD [address] [place] [address] Chest pain, unspecified (Primary Dx) 06/02/2000 Outpatient [facility] Social [...]
--- OUTSIDE RECORDS SUMMARY | 2019-09-01 14:14 | XMS REPORT | Encounter Summary ---
Author Author [facility] Organization [facility] Address Unknown Phone Unavailable Care Team Providers Care Maritime Engineer Name Role Phone Jonathan De Paz MD PCP Unavailable Encounter Details Care Team Description Date Type Department Lei Bonilla MD [address] [place] [address] Chest pain, unspecified (Primary Dx) 06/08/2000 Outpatient [facility] Social [...]
--- OUTSIDE RECORDS SUMMARY | 2019-09-01 14:14 | XMS REPORT | Encounter Summary ---
Author Author [facility] Organization [facility] Address Unknown Phone Unavailable Care Team Providers Care Tread Builder Name Role Phone Shelbi Aleman RN Unavailable Unavailable Mohini Malhotra MD Unavailable Jonathan Pickett RN Unavailable Unavailable Nima Tenorio APRN PCP Chetan Dominguez MD 21 Reason for Visit * Reason Comments New CA Pt * Consult, Test & Treat (Routine) Referred By Contact Referred To Contact Status Reason Specialty Diagnoses / Procedures Chetan Hernandez MD [address] [place] [address] Cc - Ww Cl Exm/Proc [address] No Auth Needed Oncology Diagnoses Clotting disorder Encounter Details Care Team Description Date Type Department Matthieu Campbell MD [address] [place] [address] [phone] Chronic deep vein thrombosis (DVT) of corey th lower extremities, unspecified vein (HCC) (Primary Dx) 04/02/2019 Office Visit The [address] [phone] Social History Date Tobacco Use Types Packs/Day [...] Signs Reading Time Taken Comments Vital Sign 152/88 04/02/2019 1:06 PM PRECISION MACHINING INSTRUCTOR Blood Pressure 115 04/02/2019 1:06 PM PRECISION MACHINING INSTRUCTOR Pulse 36.6 C (97.9 F) 04/02/2019 1:06 PM PRECISION MACHINING INSTRUCTOR Temperature 18 04/02/2019 1:06 PM PRECISION MACHINING INSTRUCTOR Respiratory Rate 96% 04/02/2019 1:06 PM PRECISION MACHINING INSTRUCTOR Oxygen Saturation - - Inhaled Oxygen Concentration 75.7 kg (166 lb 12.8 oz) 04/02/2019 1:06 PM PRECISION MACHINING INSTRUCTOR Weight 170.2 cm (5' 7") 04/02/2019 1:06 PM PRECISION MACHINING INSTRUCTOR Height 26.12 04/02/2019 1:06 PM PRECISION MACHINING INSTRUCTOR Body Mass Index documented in this encounter Functional Status Date of Assessment [...] impairment: No documented as of this encounter Patient Instructions * Patient Instructions* Lynn Mcknight, NANI - 04/02/2019 1:00 PM PRECISION MACHINING INSTRUCTOR Your care team: Dr. Matthieu Campbell Plate Glass Installer Clinical Nurse Coordinators (CNC's) Meera Padron RN, BSN Lynn Mcknight RN, BSN Phone numbers: Scheduling # [phone] CNCs Meera and Lynn # [phone] Messages left on nurses' line are checked Tuesday-Tuesday 8:00 AM - 4:00 PM. Evening (after 4:00 PM), weekend and holiday on-call # [phone] For urgent needs after hours, please ask for the oncologist on-call to be paged. For urgent needs during business hours, please ask for Meera or Lynn, Dr. Chito wilson's nurses, to be paged. Notes: - Allow one business week for our office to complete any requested paperwork (FM [place], etc.) - Allow two to three business days for all medication refills. Please call your pharmacy first to check for available refills. ISION MACHINING INSTRUCTOR documented in this encounter Progress Notes * Matthieu Campbell MD - 04/02/2019 1:00 PM PRECISION MACHINING INSTRUCTOR Name: Sophia Hawkins : 1965 AGE: 53 y .o. DATE OF SERVICE: 04/02/2019 Subjective: Reason for Visit: Recommendations for anticoagulation in view of recurrent venou s thromboembolic events Sophia Hawkins is a 53 y.o. female. History of Present Illness: This patient has a long and complicated history of venous thromboembolic events and a history of a lupus anticoagulant. She states that her first episode occur red approximately 20 years ago, at which time she had a pulmonary embolus. In , the patient states that she was diagnosed as having "clots in both legs" an d has had at least 8 or 9 episodes of recurrent DVT's since that time. She was found to have thrombus in the superior vena cava, extending into both upper extr emities, approximately 7 years ago, which apparently was related to the previous placement of a Port-A-Cath. She states that she has not had any repeat studies of the upper extremities or the superior vena cava. In September 2018, the patient apparently had a recurrent thrombus in the left lower extremity, possibly relate d to a Port-A-Cath in the left femoral vein. Approximately 3-1/2 weeks ago, the patient states that she was found to have "a clot in my right thigh". A report of an ultrasound from September 2017 is available and reveals chronic deep venous thr omboses in the femoral and peroneal veins. The patient's records reveal that sh e had a left femoral Port-A-Cath exchange in May 2018. A report is also av ailable for review of an ultrasound in February 2019, revealing a thrombus in th e right superficial femoral vein and popliteal vein, but the radiologist was josh ble to define whether this was chronic, acute, or chronic and acute in character .. Further review of the patient's outside records indicates multiple other Dop pler venous studies, as well as multiple CT scans of the chest, which appear not to have revealed any evidence of recurrent pulmonary emboli. The patient states that a large portion of her medical records were lost in the [facility] several years ago and are not available to document studies revealing ot her episodes of recurrent venous thromboembolic events. The patient states that she has been treated in the past with Coumadin, which she states could not be r egulated. She also had treatment several years ago with "daily blood thinner sh ots". In addition, the patient relates that she has had placement of venous inocencia ters in the proximal veins of both lower extremities. Over the last 7 years, th e patient has been on Xarelto, under the care of Dr. Chetan Graff in [place], [place] and is now referred to our clinic for recommendations in reference to continued anticoagulation. In November 2010, the patient had a work-up for hypercoagulable state, with record s revealing a normal protein C, protein S, and anti-thrombin 3. Her factor VIII level at that time was 135. Prothrombin gene mutation and factor V Leiden were negative. A study for lupus anticoagulant was negative, and anti-cardiolipin I gG was 2.3 and IgM was 4.7. Beta-2 glycoprotein IgG was 2.7 and IgM was 2.3. The patient has a history of a very severe allergy to aspirin, with a reaction c haracterized by "swelling of my trachea". The patient states that there is also been some concern about malabsorption of m edications, and she has had a history of chronic bowel obstruction, "occurring 2 1 times" since 1987 and requiring multiple operations for "adhesions". 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 Her in 2011 from a ruptured abdominal aortic aneurysm. The patient has a 32-year-old son, w rudolph is in good health, and a 36-year-old son who had "a brain tumor". The patien t does not use alcohol. She has a history of excessive tobacco use since age 16 years and continues to smoke 1 pack/day. She also smokes marijuana. Family history: Mother had acute myelogenous leukemia. History of diabetes mellitus in a twin s ister and in her oldest son. History of "clots" in a niece. History of hypoth yroidism in the patient's oldest son. Acute myocardial infarction in the patien t's father. No history of hypertension or CVA. History of tuberculosis in a ny ternal grandmother, to whom the patient was not exposed. History of cancer in [facility] maternal and paternal grandmothers, type unknown. Past medical history: History of iron deficiency anemia. History of kidney failure approximately 10 y ears ago, of uncertain etiology. History of diabetes mellitus type 2, with the patient now having normal blood sugars since a weight loss of 65 pounds followin g an episode of chronic pancreatitis 1-1/2 years ago. History of depression and suicidal ideation. Patient known to have hypothyroidism. Patient has hyperlip idemia. She denies any history of heart disease. Patient has known longstandin g and apparently severe chronic obstructive pulmonary disease. History of hyper tension. Recent removal of a mass from the right neck and shoulder, apparently benign. History of granuloma annulare. Chronic pain syndrome with history of n arcotic dependence. History of glaucoma. Positive history for obstructive slee p apnea. History of systemic lupus erythematosus. History, as noted above, of abdominal adhesions with multiple bowel obstructions, requiring multiple operati ons. History of multiple recurrent DVT's and pulmonary emboli see kenny grider. Review of Systems: Positive for frequent headaches, decreased visual acuity secondary to cataracts s/p operation, chronic cough and dyspnea, chronic bilateral lower extremity deyanira a/left greater than right, chronic pain syndrome with ongoing chest/abdominal/an d lower extremity pain. Objective: albuterol (PROAIR HFA, VENTOLIN HFA, OR PROVENTIL HFA) 90 mcg/actuation inha ler Inhale 2 puffs by mouth into the lungs every 6 hours as needed for Wheezing or Shortness of Breath. Shake well before use. albuterol-ipratropium (DUO-NEB, DUO-VENT) 0.5 mg-3 mg(2.5 mg base)/3 mL nebu lizer solution Inhale 3 mL solution by nebulizer as directed every 6 hours as ne eded for Wheezing. buprenorphine HCl (BELBUCA) [address] 75 mcg inside cheek (side of m outh) twice daily. Diphenhydramine-Phenylephrine 25-10 mg tab Take 1 tablet by mouth every 6 ho urs as needed. hiobzkkckzl-xiymdrqap-kmyukukd (TRELEGY ELLIPTA) 100-62.5-25 mcg dsdv Inhale 1 puff by mouth into the lungs daily. hydrOXYzine (ATARAX) 50 mg tablet Take 50 mg by mouth three times daily as n eeded for Itching. levothyroxine (SYNTHROID) 75 mcg tablet Take 75 mcg by mouth daily 30 minute s before breakfast. lisinopril (PRINIVIL; ZESTRIL) 20 mg tablet Take 20 mg by mouth daily as nee ded (For Blood Pressure over 140/90). morphine IR (MS-IR) 15 mg tablet Take 15 mg by mouth twice daily naphazoline 0.025 % /pheniramine 0.3 % (EYE ALLERGY RELIEF) 0.025/0.3 % drop Apply 1 drop to both eyes twice daily as needed. omeprazole DR(+) (PRILOSEC) 20 mg capsule Take 20 mg by mouth daily before b reakfast. ondansetron (ZOFRAN ODT) 8 mg rapid dissolve tablet Dissolve 8 mg by mouth e very 6 hours as needed for Nausea or Vomiting. Place on tongue to disolve. pregabalin (LYRICA) 50 mg capsule Take 50 mg by mouth every 8 hours as neede d. rivaroxaban (XARELTO) 20 mg tablet Take 20 mg by mouth daily. Take with food . timolol maleate (TIMOPTIC) 0.5 % ophthalmic drops Apply 1 drop to both eyes twice daily. Vitals: 04/02/19 1306 BP: 152/88 Pulse: 115 Resp: 18 Temp: 36.6 C (97.9 F) TempSrc: Oral SpO2: 96% Weight: 75.7 kg (166 lb 12.8 oz) Height: 170.2 cm (67") Body mass index is 26.12 kg/m. Pain Score: Seven Pain Loc: Generalized Fatigue Scale: 7 Pain Addressed: Current regimen working to control pain. Physical Exam: HEENT: No scleral icterus, cranial nerve function normal, neck veins are not sig nificantly distended. Chest and lungs: Bilateral coarse rhonchi, basilar crackles. Bilateral superfic ial venous dilatation over the upper anterior chest, with minimal venous promine nce along the lateral chest bilaterally. Heart: I do not appreciate a gallop rhythm, increased P2, or murmur, although he art tones are distant. Abdomen: No palpably enlarged liver or spleen. Patient has a transverse right u pper quadrant surgical scar and midline surgical scars. No abdominal distention or hyperactive bowel sounds noted Extremities: 1+ lower extremity edema, bilateral, with superficial varicosities and spider veins bilaterally noted. No upper extremity edema was appreciated Assessment and Plan: Extensive history of venous thromboembolic events, including pulmonary emboli, b ilateral upper extremity and superior vena caval thrombosis secondary to a previ ous Port-A-Cath, and recurrent bilateral lower extremity DVTs, with venous filte rs placed in both femoral veins/patient history Previous failure on Coumadin, due to inability to regulate. Apparently, failure to prevent recurrent DVT's on Xarelto Recommendations: 1. I would recommend changing the patient from Xarelto to either Lovenox or tuan daparinux, with the latter having benefit of once daily dosing. This was discus sed in detail with the patient, and she stated that she would be quite willing t o take subcutaneous injections on a daily basis. 2. Although the patient has had relatively recent lower extremity Doppler venou s studies, she has not had repeat venous studies of the upper extremities x timur ral years, and I would recommend repeat bilateral upper extremity Doppler venous studies. Comment: The patient has not been taking Xarelto with food, but I doubt that thi s is a major factor in this patient continuing to have venous thromboembolic roxana nts on Xarelto. The possibility of malabsorption apparently has been considered , however the patient's chronic constipation and now stable weight since recover ing from pancreatitis would make this questionable. Peak and trough anti-factor X activity levels could be obtained, but there is no established therapeutic ra nge for DOAC's. Regardless, it would seem that changing to a parenteral anticoa gulant is most reasonable in view of her extensive history of venous thromboembo lic events. The above was discussed by telephone with Dr. Chetan Graff. The patient will continue follow-up with him and initiation of either Lovenox or fondaparinux. ISION MACHINING INSTRUCTOR documented in this encounter Plan of Treatment Not on filedocumented as of this encounter Visit Diagnoses Diagnosis Chronic deep vein thrombosis (DVT) of b oth lower extremities, unspecified vein (HCC) documented in this encounter
--- OUTSIDE RECORDS SUMMARY | 2019-09-01 14:14 | XMS REPORT | Encounter Summary ---
Author Author [facility] Organization [facility] Address Unknown Phone Unavailable Care Team Providers Care Day Care Center Director Name Role Phone Shelbi Aleman RN Unavailable Unavailable Mohini Malhotra MD Unavailable Jonathan Pickett RN Unavailable Unavailable Nima Tenorio APRN PCP Chetan Dominguez MD 21 Reason for Visit * Reason Comments Other appt Encounter Details Care Team Description Date Type Department Matthieu Campbell MD [address] [place] [address] [phone] Other (appt ) 06/22/[address] [phone] Social History Date Tobacco Use Types Packs/Day [...] encounter Miscellaneous Notes * Telephone Encounter - Lynn Mcknight RN - 06/22/2019 11:34 AM FLORAL ASSOCIATE Faxed request to Dr. Dominguez's office and [facility] for recent records . Dr. Dominguez's fax [phone] [facility] medical records fax [phone] AL ASSOCIATE documented in this encounter Plan of Treatment Not on filedocumented as of this encounter Visit Diagnoses Not on filedocumented in this encounter
--- OUTSIDE RECORDS SUMMARY | 2019-09-01 14:14 | XMS REPORT | Encounter Summary ---
Author Author [facility] Organization [facility] Address Unknown Phone Unavailable Care Team Providers Care Grainer Machine Name Role Phone Shelbi Aleman RN Unavailable Unavailable No Pcp, Na PCP Unavailable Mohini Malhotra MD Unavailable Jonathan Pickett RN Unavailable Unavailable Reason for Visit * Reason Comments Navigation Assessment Encounter Details Care Team Description Date Type Department Matthieu Campbell MD [address] [place] [address] Navigation Assessment 03/20/2019 Telephone The [facility] [address], [place] [id number] Social History Date Tobacco Use Types Packs/Day [...] encounter Miscellaneous Notes * Telephone Encounter - Homa Gonzalez RN - 03/20/2019 3:06 PM WARRANTY CLERK Navigation Intake Assessment Document Patient Name: Sophia Hawkins : 1965 Insurance: Medicare Appointment Info: Future Appointments Date Time Provider Department Center 04/02/2019 1:00 PM Matthieu Campbell MD [facility] Exam Diagnosis & Reason for Visit: Recurrent clots-anticoagulation recommendations. Patient has a history of thrombophilia due to lupus anticoagulant. She has had multiple episodes of DVT and PE. She is currently taking Xarelto 20mg daily. She has been referred to hematology services for anticoagulation recommendations due to recurrent clots. In speaking with patient she states she was previously seen by a cnc machine setter in [facility] but she cannot remember the office or the name of the physician. Some records are in Care Everywhere. Physician Info: Referring Physician: Chetan Dominguez[place] [facility] [place] [phone] PCP: Nima Tenorio Location of Films: PACS. Clouding request made 03/20/2019 for US performed 02/22. ANTY CLERK documented in this encounter Plan of Treatment Not on filedocumented as of this encounter Visit Diagnoses Not on filedocumented in this encounter
--- OUTSIDE RECORDS SUMMARY | 2019-09-01 14:14 | XMS REPORT | Encounter Summary ---
Author Author [facility] Organization [facility] Address Unknown Phone Unavailable Care Team Providers Care Plant Production Manager Name Role Phone Jonathan De Paz MD PCP Unavailable Encounter Details Care Team Description Date Type Department Mary Beth Rodriguez, LILIANE [address] [place] [phone] Other chronic nonalcoholic liver disease (Primary Dx) 09/14/2000 Outpatient [facility] [address] [place] [phone] Social History Date Tobacco Use Types Packs/Day [...] chronic nonalcoholic liver diseas e - Primary documented in this encounter
--- OUTSIDE RECORDS SUMMARY | 2019-09-01 14:14 | XMS REPORT | Clinical Summary ---
Author Author [facility] Organization [facility] Address Unknown Phone Unavailable Care Team Providers Care Sanding Machine Tender Automatic Name Role Phone PCP Unavailable Allergies Not on File Medications Not on [...] Health Maintenance Due Date Last Done Comments CERVICAL CANCER SCREENING 1994 BREAST CANCER SCREENING 2004 COLORECTAL SCREENING 2014 ZOSTER VACCINE (1 of 2) 2014 INFLUENZA VACCINE 11/16/2018 PNEUMOCOCCAL VACCINE 0-64 Aged Out No longer el igible based YEARS on patient's age to complete this topic Results Not on filefrom Last 3 Months
--- OUTSIDE RECORDS SUMMARY | 2019-09-01 14:14 | XMS REPORT | Encounter Summary ---
Author Author [facility] Organization [facility] Address Unknown Phone Unavailable Care Team Providers Care Bottling Machine Operator Name Role Phone Shelbi Aleman RN Unavailable Unavailable Mohini Malhotra MD Unavailable Jonathan Pickett RN Unavailable Unavailable Nima Tenorio APRN PCP Chetan Dominguez MD 21 Reason for Visit * Reason Comments Deep Vein Thrombosis Encounter Details Care Team Description Date Type Department Matthieu Campbell MD [address] [place], [place] [phone] Chronic deep vein thrombosis (DVT) of corey th lower extremities, unspecified vein (HCC) (Primary Dx) 07/03/2019 Office Visit [facility] [address] [phone] Social History Date Tobacco Use Types Packs/Day [...] 07/03/2019 1:23 PM CDT Body Mass Index documented in [...] impairment: No documented as of this encounter Progress Notes * Matthieu Campbell MD - 07/03/2019 1:30 PM CDT Name: Sophia Hawkins : 1965 AGE: 53 y .o. DATE OF SERVICE: 07/03/2019 Subjective: Reason for Visit: Recurrent venous thrombo-embolic events, with Doppler venous studies of the [facility] lower extremity at [facility] in [place], [place] on 06/16 revealing progression of previously noted DVT. Sophia Hawkins is a 53 y.o. female. History of Present Illness: This patient was previously seen by me on April 02, 2019, with a long and com plicated history of recurrent venous thromboembolic events, despite ongoing anti coagulation, with my recommendation at that time to change the patient from Xare lto to either Lovenox or fondaparinux. The patient did begin fondaparinux 7.5 m g p.o. daily under the care of her silo operator in [place], [place], Dr. Durga rocha. The patient was to have follow-up in our clinic on June 04, 2019, but was hospitalized in [place], [place], because of hypertension. She states radha t she recently experienced an increase in edema and right lower extremity pain, prompting venous Doppler studies of the right lower extremity, and was informed by her nurse practitioner, that the study revealed an increase in thrombus. We do not currently have that study for review, but the report is available, shashi ling occlusive DVT within the upper, mid, and lower superficial femoral vein. T he previously noted popliteal venous thrombus has apparently resolved, and calf veins were patent. The patient complained today of pain and swelling, primarily in the right lower extremity, marked fatigue, dyspnea on exertion, and leg fatigue of the lower ext remities with any ambulation. She has had no significant epistaxis, gross chika turia, hematochezia or melena. She has had no pleuritic chest pain, and she has not experienced any hemoptysis. Additional pertinent history of the present illness, as follows: Long, complicated history of venous thromboembolic events and a ? history of a l upus anticoagulant. She states that her first episode occurred approximately 20 years ago, at which time she had a pulmonary embolus. In 2000, the patient sta priya that she was diagnosed as having "clots in both legs" and had had at least 8 or 9 episodes of recurrent DVT's since that time. She was found to have thromb us in the superior vena cava, extending into both upper extremities, approximate ly 7 years ago, which apparently was related to the previous placement of a Port -A-Cath. She stated that she had not had any repeat studies of the upper extrem ities or the superior vena cava since then. In September 2018, the patient apparentl y had a recurrent thrombus in the left lower extremity, possibly related to a Po rt-A-Cath in the left femoral vein. Approximately 3 months ago, the patient stat ed that she was found to have "a clot in my right thigh". A report of an ultras ound from September 2017 is available and revealed chronic deep venous thromboses in the femoral and peroneal veins. The patient's records revealed that she had a l eft femoral Port-A-Cath exchange in May 2018. A report is also available f or review of an ultrasound in February 2019, revealing a thrombus in the right s uperficial femoral vein and popliteal vein, but the radiologist was unable to de fine whether this was chronic, acute, or chronic and acute in character.. [facility] er review of the patient's outside records indicates multiple other Doppler veno us studies, as well as multiple CT scans of the chest, which appear not to have revealed any evidence of recurrent pulmonary emboli. The patient stated that a large portion of her medical records were lost in the [facility] years ago and were not available to document studies revealing other epis odes of recurrent venous thromboembolic events. The patient stated that she has been treated in the past with Coumadin, which she states could not be regulated. She also had treatment several years ago with "daily blood thinner shots". In addition, the patient relates that she has had placement of venous filters in the proximal veins of both lower extremities. Review of that history today wi th the patient reveals that a previous [place] IVC filter had been placed but then removed, but a trapeze filter placed in the "right groin" several years ago had never been removed. Over the last 7 years, the patient had been on Xarelto, under the care of Dr. Chetan Graff in [place], [place], until she was seen in our clinic in March 2019 and started on fondaparinux 7.5 mg daily. It should be noted that, in November 2010, the patient had a work-up for hypercoag ulable state, with records revealing a normal protein C, protein S, and anti-thr ombin 3. Her factor VIII level at that time was 135. Prothrombin gene mutation and factor V Leiden were negative. A study for lupus anticoagulant was negativ e, and anti-cardiolipin IgG was 2.3 and IgM was 4.7. Beta-2 glycoprotein IgG wa s 2.7 and IgM was 2.3. The patient has a history of a very severe allergy to aspirin, with a reaction c haracterized by "swelling of my trachea". Past medical history reveals diabetes mellitus type 2, chronic pain syndrome wit h narcotic dependence, hypertension, previous history of granuloma annulare, obs tructive sleep apnea, adhesions with bowel obstructions, and severe chronic obst ructive pulmonary disease. Review of Systems: See above Objective: albuterol (PROAIR HFA, VENTOLIN HFA, OR [...] cheek (side of m outh) twice daily. cyclobenzaprine (FLEXERIL) 10 mg tablet Diphenhydramine-Phenylephrine 25-10 mg tab Take 1 tablet by mouth every 6 ho urs as needed. lmlnckwcgjq-tmjizakdt-dbnqakzo (TRELEGY ELLIPTA) 100-62.5-25 mcg dsdv Inhale 1 puff by mouth into the lungs daily. fondaparinux (ARIXTRA) 7.5 mg/0.6 mL injection syringe hydrOXYzine (ATARAX) 50 mg tablet Take 50 [...] drop to both eyes twice daily. Vitals: 07/03/19 1323 BP: 130/87 BP Source: Arm, Left Upper Patient Position: Sitting Pulse: 95 Resp: 16 Temp: 36.5 C (97.7 F) TempSrc: Oral SpO2: 93% Weight: 77.1 kg (170 lb) Height: 170.2 cm (67.01") PainSc: Seven Body mass index is 26.62 kg/m. Pain Score: Seven Pain Loc: Leg Fatigue Scale: 5 Pain Addressed: Current regimen working to control pain. Physical Exam: Patient is alert and oriented, and, at rest, is in no distress. Blood pressure 130/87, pulse 95, oxygen saturation 93% on room air. No scleral icterus; mild conjunctival injection. Neck veins are not mildly dila raphael to the inferior border of the sternocleidomastoid muscle, at 45 degrees, but collapse on inspiration. Chest and lungs: Breath sounds are distant, but surprisingly the previously note d bilateral coarse rhonchi and basilar crackles are significantly decreased on t millie's exam. Minimal, but definite venous prominence of superficial veins over the upper anterior chest bilaterally and along the lateral chest bilaterally. Cardiac examination reveals no S3 or S4 or murmur, although heart tones are dist ant. Extremities reveal lower extremity superficial varicosities and spider veins marianne aterally. 1+ bilateral lower extremity pretibial edema, with 2+ ankle edema on the right side. Assessment and Plan: 1. Long history of recurrent venous thromboembolic events, including pulmonary emboli, bilateral upper extremity and superior vena caval thrombosis, and recurr ent bilateral lower extremity DVTs, with present extensive thrombosis involving the right upper, mid, and lower superficial femoral vein. Apparently, the previ ously noted involvement of the popliteal vein by thrombus has resolved, although the patient was informed that the superficial right femoral vein thrombus was m ore extensive than in February 2019. 2. Severe chronic obstructive pulmonary disease, which, in my judgment, is a ma stephan contributing factor to the patient's overall cardiopulmonary symptomatology. 3. Concern for peripheral artery disease involving the lower extremities (ruby nt states that she has been previously informed that she has "PAD"). Certainly it is possible that the apparent increase in extent of superficial fem oral vein thrombus on Doppler venous studies performed 4 days ago, as compared to those in February 2019, reflect progression that had already occurred prior t o our seeing the patient in March 2019 and placing the patient on fondaparinu x. However, with recent increasing pain and edema involving the right lower ext remity, I have recommended to the patient that fondaparinux be discontinued and that she be placed on weight-based dosing of Lovenox at 1 mg/kg of actual body w eight subcutaneously every 12 hours. She has agreed to do so; however, I stated that we would be sending our recommendations to Dr. Chetan Graff in [place], [place], and it would be most appropriate for him to make this change after hi s review and if he is in agreement with this recommendation. The patient is also planning to follow-up with her securities consultant and her cardiol ogist in [place], [place]. A tentative appointment was made for follow-up in our clinic in 3 months, if con sidered appropriate by Dr. Graff or desired by the patient. documented in this encounter Plan of Treatment Order Schedule Name Type Priority Associated Diag noses Expected: 10/03/2019 (Approximate), Expi res: 07/02/2020 CBC AND DIFF Lab Routine Chronic deep ve in thrombosis (DVT) of both lower extremities, unspecified vein (HCC) Expected: 10/03/2019 (Approximate), Expi res: 07/02/2020 D-DIMER Lab Routine Chronic deep ve in thrombosis (DVT) of both lower extremities, unspecified vein (HCC) documented as of this encounter Visit Diagnoses Diagnosis Chronic deep vein thrombosis (DVT) of b oth lower extremities, unspecified vein (HCC) documented in this encounter
[2019-09-01] MEDS ORDERED: IBUPROFEN 800 MG (MOTRIN) TAB PO ONE (14:15)
[2019-09-01] MEDS ORDERED: ACETAMINOPHEN 500 MG TAB (TYLENOL) PO ONE (14:15)
[2019-09-01] MEDS ORDERED: ONDANSETRON 4 MG (ZOFRAN) ORAL DISSOLVE TAB PO ONE (14:15)
--- OUTSIDE RECORDS SUMMARY | 2019-09-01 14:15 | XMS REPORT | Encounter Summary ---
Author Author [facility] Organization [facility] Address Unknown Phone Unavailable Care Team Providers Care Hall Tender Name Role Phone Jonathan De Paz MD PCP Unavailable Encounter Details Care Team Description Date Type Department Paul Parra MD [address] [place], [place] [id number] Hematuria (Primary Dx) 03/05/2000 Emergency [facility] Emergency Department [address] [place] [phone] Social History Date Tobacco Use Types Packs/Day [...]
--- OUTSIDE RECORDS SUMMARY | 2019-09-01 14:15 | XMS REPORT | Encounter Summary ---
Author Author [facility] Organization [facility] Address Unknown Phone Unavailable Care Team Providers Care Order Control Clerk Blood Bank Name Role Phone Jonathan De Paz MD PCP Unavailable Encounter Details Care Team Description Date Type Department Sergei Jessica MD [address] [place] [address] Chest pain, unspecified (Primary Dx) 05/20/2000 Outpatient [facility] Historical Social History Date [...]
--- OUTSIDE RECORDS SUMMARY | 2019-09-01 14:15 | XMS REPORT | Encounter Summary ---
Author Author [facility] Organization [facility] Address Unknown Phone Unavailable Care Team Providers Care Dairy Manufacturing Technologist Name Role Phone Jonathan De Paz MD PCP Unavailable Encounter Details Care Team Description Date Type Department Manuel Quintana MD NO ADDRESS ON FILE 12/25/1999 Outpatient Historical Social History Date Tobacco Use Types [...]
--- OUTSIDE RECORDS SUMMARY | 2019-09-01 14:15 | XMS REPORT | Encounter Summary ---
Author Author [facility] Organization [facility] Address Unknown Phone Unavailable Care Team Providers Care Survey Engineer Name Role Phone Jonathan De Paz MD PCP Unavailable Encounter Details Care Team Description Date Type Department Sergei Jessica MD [address] [place] [address] Other symptoms involving digestive syste m(787.99) (Primary Dx) 03/04/2000 Outpatient [facility] Diagnostic Imaging [facility] [place] [phone] Social History Date Tobacco Use Types Packs/Day Years Used Never Assessed Sex Assigned at Date Recorded Not on file Industry Job Start Date Occupation Not on file Not on file Not on file Travel End Travel History Travel Start No recent travel history available. documented as of this encounter Plan of Treatment Not on filedocumented as of this encounter Visit Diagnoses Diagnosis Other symptoms involving digestive syst em(787.99) - Primary Other symptoms involving digestive syst em documented in this encounter
--- OUTSIDE RECORDS SUMMARY | 2019-09-01 14:15 | XMS REPORT | Encounter Summary ---
Author Author [facility] Organization [facility] Address Unknown Phone Unavailable Care Team Providers Care Curtain Mender Name Role Phone Jonathan De Paz MD PCP Unavailable Encounter Details Care Team Description Date Type Department Manuel Quintana MD NO ADDRESS ON FILE 12/31/1999 Outpatient Historical Social History Date Tobacco Use [...]
--- OUTSIDE RECORDS SUMMARY | 2019-09-01 14:15 | XMS REPORT | Encounter Summary ---
Author Author [facility] Organization [facility] Address Unknown Phone Unavailable Care Team Providers Care Test Borer Name Role Phone Jonathan De Paz MD PCP Unavailable Encounter Details Care Team Description Date Type Department Yoko Hills MD [address] [place] [phone] Migraine, unspecified, without mention o f intractable migraine without mention of status migrainosus (Primary Dx); Other ovarian failure 12/31/1999 Outpatient [facility] al Historical Office [address] [place] [address] Social History Date Tobacco Use Types Packs/Day [...] without mention of status migrainosus - Primary Other ovarian failure documented in this encounter
--- OUTSIDE RECORDS SUMMARY | 2019-09-01 14:15 | XMS REPORT | Encounter Summary ---
Author Author [facility] Organization [facility] Address Unknown Phone Unavailable Care Team Providers Care Vending Technician Name Role Phone Jonathan De Paz MD PCP Unavailable Encounter Details Care Team Description Date Type Department Peter Thomas MD [address] [place] [address] Unspecified circulatory system disorder (Primary Dx) 01/20/2000 Outpatient [facility] ITAL Historical IP Social History Date [...] of this encounter Visit Diagnoses Diagnosis Unspecified circulatory system disorder - Primary documented in this encounter
--- OUTSIDE RECORDS SUMMARY | 2019-09-01 14:15 | XMS REPORT | Encounter Summary ---
Author Author [facility] Organization [facility] Address Unknown Phone Unavailable Care Team Providers Care Four Slide Machine Operator Name Role Phone Jonathan De Paz MD PCP Unavailable Encounter Details Care Team Description Date Type Department Patricio Perez MD [address] [place], [place] [address] [phone] Other chest pain (Primary Dx) 05/21/2000 Inpatient [facility] Historical Social History Date Tobacco Use Types [...]
--- OUTSIDE RECORDS SUMMARY | 2019-09-01 14:15 | XMS REPORT | Encounter Summary ---
Author Author [facility] Organization [facility] Address Unknown Phone Unavailable Care Team Providers Care Dealer Sales Rep Name Role Phone Jonathan De Paz MD PCP Unavailable Encounter Details Care Team Description Date Type Department Sergei Jessica MD [address] [place] [phone] Abdominal pain, unspecified site (Primar y Dx) 03/04/2000 Outpatient [facility] Historical Social History Date [...]
--- OUTSIDE RECORDS SUMMARY | 2019-09-01 14:15 | XMS REPORT | Encounter Summary ---
Author Author [facility] Organization [facility] Address Unknown Phone Unavailable Care Team Providers Care Table Inspector Name Role Phone Jonathan De Paz MD PCP Unavailable Encounter Details Care Team Description Date Type Department Manuel Quintana MD NO ADDRESS ON FILE 12/26/1999 Outpatient Historical Social History Date Tobacco Use [...]
--- OUTSIDE RECORDS SUMMARY | 2019-09-01 14:15 | XMS REPORT ---
Author Author Sophia Corona Organization [facility] Address [address] [place], [place] [id number] Care Team Providers Care Java Android Developer Name Role Phone Jose Corona PCP Jose Corona PreferredProvider Allergies and Adverse Reactions Name Reaction Notes aspirin codeine sulfate Compazine Toradol Imitrex Reglan naproxen adhesive Plan of Treatment Planned Activity Comments Planned Date Planned Time Plan/Goal BMP 10/31/2017 12:00 AM URIC ACID. 10/31/2017 12:00 AM URIC ACID. 10/31/2017 12:00 AM Magnesium level 10/31/2017 12:00 AM ABDOMEN ONE VIEW 12/09/2017 12:00 AM Urinary retention with trivedi catheter in place and hematuria 10/31/2017 2:30 PM Medications Active Name Start Date Estimated Completion Date SIG Co mments duloxetine 60 mg oral capsule,delayed release(DR/EC) take 1 capsule (60 mg) by oral route twice daily Eye Allergy Relief 0.025-0.3 % ophthalmic (eye) drops instill 2 drops in affected eye daily as needed Horizant 600 mg oral tablet extended release take 1 tablet (600 mg) by oral route 2 times per day ipratropium-albuterol 0.5 mg-3 mg(2.5 mg base)/3 mL inhalation solution for nebulization inhale 3 milliliters by nebulization route 4 times per day as needed pseudoephedrine HCl 120 mg oral tablet extended release take 1 tablet (120 mg) by oral route daily as needed Belbuca 300 mcg buccal film plac e 1 film (300 mcg) against the inside of the cheek, holding in place for 5 seconds, by buccal route 2 times per day morphine 15 mg oral tablet take 1 tablet (15 mg) by oral route twice daily as needed Ventolin HFA 90 mcg/actuation inhalation HFA aerosol inhaler inhale 2 puffs (180 mcg) by inhalation route every 4 hours as needed Vistaril 50 mg oral capsule 12/09/2017 take 1 capsule (50 mg) by oral route 3 times per day for anxiety guaifenesin 600 mg oral tablet extended release 12hr 12/09/2017 take 1 tablet (600 mg) by oral route every 12 hours cyclobenzaprine 10 mg oral tablet take 1 tablet (10 mg) by oral route 3 times per day as needed timolol maleate 0.5 % ophthalmic (eye) drops 06/15/2018 instill 1 drop in affected eye 2 times a day omeprazole 20 mg oral capsule,delayed release(DR/EC) 11/22/2018 11/17/2019 take 1 capsule (20 mg) by oral route once daily before a meal for 90 days ondansetron 8 mg oral tablet,disintegrating 03/09/2019 dissolve 1 tablet by oral route every 8 hours as needed Name Start Date Expiration Date SIG Comments amoxicillin-pot clavulanate 500-125 mg oral tablet 08/18/2017 08/25/2017 take 1 tablet by oral route every 12 hours for 7 days amoxicillin-pot clavulanate 500-125 mg oral tablet 12/09/2017 12/16/2017 take 1 tablet by oral route every 12 hours for 7 days levothyroxine 75 mcg oral tablet 06/15/2018 06/10/2019 take 1 tablet (75 mcg) by oral route once daily for 90 days Xarelto 20 mg oral tablet 06/15/2018 06/10/2019 take 1 tablet (20 mg) by oral route once daily with the evening meal for 90 days Discontinued Name Start Date Discontinued Date SIG Comments lisinopril 20 mg oral tablet 06/15/2018 rajendra e 1 tablet (20 mg) by oral route once daily 'not taking, my blood pressure is fne" morphine 15 mg oral tablet extended release 12/09 take 1 tablet (15 mg) by oral route three times per day as needed dose change Mucinex 600 mg oral tablet extended release 12hr 10/07/2017 take 1 tablet (600 mg) by oral route every 12 hours as needed tizanidine 4 mg oral capsule 10/07/2017 rajendra e 1 capsule (4 mg) by oral route 3 times per day as needed Vitamin D3 5,000 unit oral tablet 10/07/2017 take 1 tablet by oral route 2 times a day ProAir HFA 90 mcg/actuation inhalation HFA aerosol inhaler 10/07/2017 inhale 2 puffs (180 mcg) by inhalation route every 4-6 hours PRN shortness of breath Belbuca 75 mcg buccal film 10/07/2017 place 1 film (75 mcg) against the inside of the cheek, holding in place for 5 seconds, by buccal route once daily increased Belbuca 150 mcg buccal film 12/09/2017 plac e 1 film (150 mcg) against the inside of the cheek, holding in place for 5 seconds, by buccal route 2 times per day dose change Robaxin-750 750 mg oral tablet 06/15/2018 t anayeli 1 tablet (750 mg) by oral route 3 times per day changed to Flexeril Breo Ellipta 200-25 mcg/dose inhalation blister with device 201712/09/2017 inhale 1 puff by inhalation route once daily at the same time each day changed to Trelogy Novolog Flexpen U-100 Insulin 100 unit/mL subcutaneous insul in pen 11/01/2017 06/15/2018 inject by subcutaneous route per sliding scale directi ons only taking while on steroids Lantus Solostar U-100 Insulin 100 unit/mL (3 mL) subcu taneous insulin pen 11/01/2017 06/15/2018 inject 10 by subcutaneous route at bedti me only taking when on steroids Myrbetriq 06/15/2018 one tablet by oral route onc e daily Problem List Description Status Onset COPD (chronic obstructive pulmonary disease) Active Diabetes mellitus Active Essential hypertension Active Pulmonary Embolism, History Active Systemic lupus Active 08/21/2017 Chronic pancreatitis Active 08/21/2017 Vital Signs Date Time BP-Sys(mm[Hg] BP-Zoya(mm[Hg]) HR(bpm) RR(rpm) Temp WT HT HC BMI BSA BMI Percentile O2 Sat(%) 06/15/2018 1:45:00 PM 132 mm[Hg] 62 mm[Hg] 98 {beats}/min 20 rpm 98.1 F 161 lbs 67.5 in 24.8437 kg/m2 1.8649 m2 99 % 12/09/2017 10:31:00 AM 120 mm[Hg] 82 mm[Hg] 75 {beats}/min 16 rpm 98.1 F 168.125 lbs 67.5 in 25.94 kg/m2 1.91 m2 99 % 12/09/2017 9:26:00 AM 122 mm[Hg] 62 mm[Hg] 73 {beats}/min 20 rpm 97.7 F 168 lbs 67.5 in 25.92 kg/m2 1.91 m2 97 % 10/31/2017 2:51:00 PM 124 mm[Hg] 78 mm[Hg] 96 {beats}/min 14 rpm 98.2 F 158.312 lbs 67 in 24.795 kg/m2 1.8424 m2 94 % 10/07/2017 10:35:00 AM 130 mm[Hg] 82 mm[Hg] 75 {beats}/min 18 rpm 98.1 F 158 lbs 67.5 in 24.38 kg/m2 1.85 m2 100 % 08/18/2017 2:58:00 PM 125 mm[Hg] 76 mm[Hg] 100 {beats}/min 18 rpm 98.1 F 153.125 lbs 67.5 in 23.6285 kg/m2 1.8188 m2 97 % Social History Name Description Comments Alcohol Never Tobacco Current every day smoker Quit smoking History of Procedures Date Ordered Description Order Status 10/31/2017 12:00 AM URINALYSIS AUTO W/SCOPE Reviewed 10/31/2017 12:[address] ABD & PELVIS W/O CONTRAST Reviewed Results Summary Date and Description Results 10/31/2017 4:58 PM COLOR YELLOW APPEARANCE AVILA R SPEC GRAV 1.015 pH 6.0 PROTEIN NEGATIVE GLUCOSE NEGATIVE KETONE NEGATIVE BILIRUBIN NEGATIVE BLOOD SMALL NITRITE NEGATIVE LEUK SCREEN SMALL WBC/HPF 0-5 RBC/HPF RARE CASTS/LPF NEGATIVE CRYSTALS NEGATIVE MUCOUS THRDS NEGATIVE BACTERIA NEGATIVE EPITH CELLS FEW SQUAMOUS TRICHOMONAS NEGATIVE YEAST NEGATIVE CULT SET UP? YES History Of Immunizations Not available. History of Past Illness Name Date of Onset Comments COPD (chronic obstructive pulmonary disease) Diabetes mellitus Essential hypertension Venous insufficiency (chronic) (peripheral) Major Depression (Single Episode) custodial use of anticoagulants Pulmonary Embolism, History intermediate frame tender (current) use of opiate analgesic Systemic lupus 08/21/2017 Chronic pancreatitis 08/21/2017 COPD (chronic obstructive pulmonary disease) Aug 18 2017 3: 00PM Diabetes mellitus Aug 18 2017 3:00PM Essential hypertension Aug 18 2017 3:00PM Systemic lupus Aug 18 2017 3:00PM Chronic pancreatitis Aug 18 2017 3:00PM Abnormal mammogram Aug 18 2017 3:00PM Depression with anxiety Aug 18 2017 3:00PM Acute sinusitis Aug 18 2017 3:00PM COPD (chronic obstructive pulmonary disease) Oct 07 2017 10: 37AM Diabetes mellitus Oct 07 2017 10:37AM Essential hypertension Oct 07 2017 10:37AM Hematuria Oct 07 2017 10:37AM Urinary retention Oct 07 2017 10:37AM OAB (overactive bladder) Oct 31 2017 2:54PM Kidney Stones Oct 31 2017 2:54PM Lupus (systemic lupus erythematosus) Oct 31 2017 2:54PM Kidney Stones Oct 07 2017 11:26AM Gross hematuria Oct 07 2017 11:26AM Urinary retention Oct 07 2017 11:26AM Kidney Stones Dec 09 2017 10:34AM Short gut syndrome Dec 09 2017 10:34AM Hyperoxaluria Dec 09 2017 10:34AM Acute bronchitis Dec 09 2017 9:28AM Acute frontal sinusitis, recurrence not specified Dec 09 201 8 9:28AM COPD (chronic obstructive pulmonary disease) Dec 09 2017 9: 28AM Diabetes mellitus Dec 09 2017 9:28AM Essential hypertension Dec 09 2017 9:28AM Systemic lupus Jun 15 2018 1:47PM COPD (chronic obstructive pulmonary disease) Jun 15 2018 1: 47PM Diabetes mellitus Jun 15 2018 1:47PM Essential hypertension Jun 15 2018 1:47PM Payers Insurance Name Company Name Plan Name Plan Number Policy Number Segun cy Group Number Start Date Medicare RHC Medicare RHC [id number] Mo 1992 [place] Medical Assistance Program [place] [employer] Johnnie tance Prog [id number] N/A Medicare Part B Medicare Of [place] [id number] N/A Medicare RHC Medicare RHC [id number] N/A [place] [employer] - RHC [place] [employer] - RH C [id number] N/A [employer] - [place] [employer] [place] [id number] N/A Medicare Part A Medicare - Lab/Xray [id number] N/A Medicare Part B Medicare [place] [id number] N/A [employer] [place] [employer] [place] [id number] N/A History of Encounters Visit Date Visit Type Provider 06/15/2018 Office visit Jose Corona DO 12/09/2017 Office visit Edgard Maldonado MD 12/09/2017 Office visit Jose Corona DO 10/31/2017 Office visit Edgard Maldonado MD 10/07/2017 Office visit Edgard Maldonado MD 10/07/2017 Office visit Jose Corona DO 09/29/2017 [facility] Liam Tan MD 08/18/2017 Office visit Jose Corona DO
--- OUTSIDE RECORDS SUMMARY | 2019-09-01 14:15 | XMS REPORT | Encounter Summary ---
Author Author [facility] Organization [facility] Address Unknown Phone Unavailable Care Team Providers Care Straight Knife Cutter Machine Name Role Phone Jonathan De Paz MD PCP Unavailable Encounter Details Care Team Description Date Type Department Francesca Franklin MD [address] [place] [address] [phone] Yoko Hills MD [address] [place] [phone] Sprain of ankle, unspecified site (Prima ry Dx) 04/02/2000 Emergency [facility] Emergency Department [address] [facility] [place] [phone] Social History Date Tobacco Use Types Packs/Day [...]
--- OUTSIDE RECORDS SUMMARY | 2019-09-01 14:15 | XMS REPORT | Encounter Summary ---
Author Author [facility] Organization [facility] Address Unknown Phone Unavailable Care Team Providers Care Cut Pressman Name Role Phone Jonathan De Paz MD PCP Unavailable Encounter Details Care Team Description Date Type Department Yoko Hills MD [address] [place] [phone] Unspecified intestinal obstruction (Prim salome Dx); Unspecified asthma(493.90) 01/25/2000 Outpatient [facility] Historical IP Social History Date Tobacco Use [...] Diagnosis Unspecified intestinal obstruction - Pr imary Unspecified asthma(493.90) Unspecified asthma documented in this encounter
--- OUTSIDE RECORDS SUMMARY | 2019-09-01 14:15 | XMS REPORT | Encounter Summary ---
Author Author [facility] Organization [facility] Address Unknown Phone Unavailable Care Team Providers Care Methane Gas Collection System Operator Name Role Phone Jonathan De Paz MD PCP Unavailable Encounter Details Care Team Description Date Type Department Fitz Hanna, Kenneth Castillo MD NO ADDRESS ON FILE Acute upper respiratory infections of un specified site (Primary Dx) 03/24/2000 Outpatient [facility] Ce nter Historical After Hours [address] [place] [phone] Social History Date Tobacco Use Types Packs/Day Years Used Never Assessed Sex Assigned at Date Recorded Not on file Industry Job Start Date Occupation Not on file Not on file Not on file Travel End Travel History Travel Start No recent travel history available. documented as of this encounter Plan of Treatment Not on filedocumented as of this encounter Visit Diagnoses Diagnosis Acute upper respiratory infections of u nspecified site - Primary documented in this encounter
--- OUTSIDE RECORDS SUMMARY | 2019-09-01 14:15 | XMS REPORT | Encounter Summary ---
Author Author [facility] Organization [facility] Address Unknown Phone Unavailable Care Team Providers Care Supervisor Beater Room Name Role Phone Jonathan De Paz MD PCP Unavailable Encounter Details Care Team Description Date Type Department Manuel Quintana MD NO ADDRESS ON FILE 12/30/1999 Outpatient Historical Social History Date Tobacco Use [...]
--- OUTSIDE RECORDS SUMMARY | 2019-09-01 14:15 | XMS REPORT | Encounter Summary ---
Author Author [facility] Organization [facility] Address Unknown Phone Unavailable Care Team Providers Care Director Trading Name Role Phone Jonathan De Paz MD PCP Unavailable Encounter Details Care Team Description Date Type Department Patricio Perez MD [address] [place] [address] TRISHA VILLALOBOS MD [id number] Chest pain, unspecified (Primary Dx); Nonspecific abnormal unspecified cardiovascular function study 05/20/2000 Outpatient [facility] ITAL Historical IP Social History Date [...] Diagnoses Diagnosis Chest pain, unspecified - Primary Nonspecific abnormal unspecified cardio vascular function study documented in this encounter
--- OUTSIDE RECORDS SUMMARY | 2019-09-01 14:15 | XMS REPORT | Encounter Summary ---
Author Author [facility] Organization [facility] Address Unknown Phone Unavailable Care Team Providers Care Cement Mason Helper Name Role Phone Jonathan De Paz MD PCP Unavailable Encounter Details Care Team Description Date Type Department Daniel Hanna, Edwina Bar MD NO ADDRESS ON FILE Abdominal pain, unspecified site (Primar y Dx); Unspecified asthma(493.90); Migraine, unspecified, without mention of intractable migraine without mention of status migrainosus 01/19/2000 Outpatient [facility] ITAL Historical IP Social History [...] Abdominal pain, unspecified site - Prim salome Unspecified asthma(493.90) Unspecified asthma Migraine, unspecified, without mention of intractable migraine without mention of status migrainosus documented in this encounter
--- OUTSIDE RECORDS SUMMARY | 2019-09-01 14:15 | XMS REPORT | Encounter Summary ---
Author Author [facility] Organization [facility] Address Unknown Phone Unavailable Care Team Providers Care Retail Advertising Account Executive Name Role Phone Jonathan De Paz MD PCP Unavailable Encounter Details Care Team Description Date Type Department Yoko Hills MD [address] [place] [phone] 01/19/2000 Inpatient Historical Social History Date Tobacco Use [...]
--- OUTSIDE RECORDS SUMMARY | 2019-09-01 14:15 | XMS REPORT | Encounter Summary ---
Author Author [facility] Organization [facility] Address Unknown Phone Unavailable Care Team Providers Care Home Health Speech Therapist Name Role Phone Jonathan De Paz MD PCP Unavailable Encounter Details Care Team Description Date Type Department Lorie Graham MD [address] [place], [place] [phone] 02/09/2000 Outpatient Historical Social History Date Tobacco Use [...]
--- OUTSIDE RECORDS SUMMARY | 2019-09-01 14:15 | XMS REPORT | Encounter Summary ---
Author Author [facility] Organization [facility] Address Unknown Phone Unavailable Care Team Providers Care Wired Music Operator Name Role Phone Jonathan De Paz MD PCP Unavailable Encounter Details Care Team Description Date Type Department Fitz Hanna, Kenneth Castillo MD NO ADDRESS ON FILE Influenza with other respiratory manifes tations (Primary Dx); Nausea alone 05/12/[address] [facility] Ce nter Historical After Hours [address] [place] [phone] Social History Date Tobacco Use Types Packs/Day Years Used Never Assessed Sex Assigned at Date Recorded Not on file Industry Job Start Date Occupation Not on file Not on file Not on file Travel End Travel History Travel Start No recent travel history available. documented as of this encounter Plan of Treatment Not on filedocumented as of this encounter Visit Diagnoses Diagnosis Influenza with other respiratory manife stations - Primary Nausea alone documented in this encounter
--- OUTSIDE RECORDS SUMMARY | 2019-09-01 14:18 | XMS REPORT ---
Author Author RADHA Sophianaren OLIVA [facility] Address [address] [place] [address] Care Team Providers Care Operating Systems Programmer Name Role Phone RADHAKATHARINEHAZEL Unavailable PROBLEMS Type Condition ICD9-CM Code AXO26-MM Code Onset Dates Condition S tatus SNOMED Code Problem Generalized abdominal pain R10.84 Act sree [id number] Problem Anxiety F41.9 Active 99272423 Problem Proteinuria R80.9 Active 07865562 Problem Hyperlipidemia, unspecified hyperlipidemia E78.5 Active 33289195 Problem Essential hypertension I10 Active 18074030 Problem Venous insufficiency I87.2 Active 41670587 Problem Type 2 diabetes mellitus without complication E11. 9 Active 34438094 Problem Pneumonia due to infectious organism, unspecified laterality, unspecified part of lung J18.9 Active 312 220939 Problem Major depressive disorder, recurrent episode, un specified severity F33.9 Active 27089910 Problem Acute cystitis with hematuria N30.01 Active 06594025 Problem Sciatica, unspecified laterality M54.30 Active 91397556 Problem Carpal tunnel syndrome, right upper limb G56.01 Active 78872356 Problem Chronic pain syndrome G89.4 Active 017693176 Problem Port catheter in place Z95.828 Active 970531102 Problem History of small bowel obstruction Z87.19 Active 544388249 Problem Chronic pancreatitis, unspecified pancreatitis type K86.1 Active 366418952 Problem Presence of IVC filter Z95.828 Active 695746935 Problem Vitamin D deficiency E55.9 Active 67268531 Problem Gastroesophageal reflux disease, esophagitis pre sence not specified K21.9 Active 981813724 Problem Exacerbation of systemic lupus M32.9 Active 01256499 Problem Hypothyroidism, unspecified type E03.9 Active 33529104 Problem Nausea R11.0 Active 857765952 Problem Gastroesophageal reflux disease without esophagitis K21.9 Active 214464592 Problem Tobacco abuse counseling Z71.6 Activ e 04110222 Problem Hypertension, benign I10 Active 54961240 Problem Chronic obstructive pulmonary disease, unspecified COPD ty pe J44.9 Active 68008432 Problem Other iron deficiency anemia D50.8 A ctive 39294220 Problem Obstructive sleep apnea G47.33 Active 21743145 Problem History of pulmonary embolism Z86.711 Active 069553637 Problem 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 A ctive 905546862 Problem Opiate dependence, continuous F11.20 Active 802630480 Problem Cannabis abuse with physiological dependence F12.1 0 Active 73812334 Problem Violation of controlled substance agreement Z91.14 Active 738996845 ALLERGIES No Information ENCOUNTERS Encounter Location Date Diagnosis [facility] [address] [facility] [id number] [address] [place] [address] August, Type 2 diabetes mellitus wit hout complication E11.9 [place] [address] [place] [id number] [place] [address] 17 Jul, 2019 Essential hypertension I10 ; Type 2 diabetes mellitus without complication E11.9 and Other iron deficiency anemia D50.8 [place] [address] [facility] [id number] [address] [place] [address] Jul, [place] [address] [facility] [id number] [address] [place] [address] May, [facility] [address] [place] [id number] [address] [place] [address] Apr, Tobacco abuse Z72.0 ; Hypert ension, benign I10 and Tobacco abuse counseling Z71.6 [place] [address] [facility] [id number] [address] [place] [address] Sep, [place] [address] [facility] [id number] [address] [place] [address] Sep, [place] [address] [place] [id number] [address] [place] [address] Sep, Essential hypertension I10 [place] [address] [place] [id number] [address] [place] [address] Sep, [place] [address] [place] [id number] [address] [place] [address] Sep, [facility] [address] [facility] [id number] [address] [place] [address] Sep, Neck mass R22.1 [facility] [address] [facility] [id number] [address] [place] [address] August, Neck mass R22.1 [facility] [address] [facility] [id number] [address] [place] [address] Feb, Left foot pain M79.672 [facility] [address] [facility] [id number] [address] [place] [address] Jun, Chronic pain syndrome G89.4 [facility] [address] [place] [id number] [place] [id number] May, [facility] [address] [facility] [id number] [address] [place] [address] May, [facility] [address] [facility] [id number] [address] [place] [address] May, Chronic pain syndrome G89.4 [facility] [address] [facility] [id number] [address] [place] [address] 13 May, 2017 [facility] [address] [facility] [id number] [address] [place] [address] 10 May, 2017 Encounter for immunization Z 23 and Laceration of left index finger without foreign body without damage to nail, initial encounter S61.211A [facility] [address] [facility] [id number] [address] [place] [address] 09 May, 2017 Chronic pain syndrome G89.4 [facility] [address] [facility] [id number] [address] [place] [address] 07 May, 2017 [facility] [address] [facility] [id number] [address] [place] [address] Apr, Cannabis abuse with physiolo gical dependence F12.10 ; Violation of controlled substance agreement Z91.14 and Opiate dependence, continuous F11.20 [facility] [address] [facility] [id number] [address] [place] [address] Apr, Type 2 diabetes mellitus wit hout complication E11.9 [facility] [address] [facility] [id number] [address] [place] [address] Apr, [facility] [address] [facility] [id number] [address] [place] [address] Apr, Chronic pain syndrome G89.4 [facility] [address] [facility] [id number] [address] [place] [address] Apr, Viral syndrome B34.9 [facility] [address] [facility] [id number] [address] [place] [address] Apr, [facility] [address] [place] [id number] [address] [place] [address] Mar, Chronic pain syndrome G89.4 [facility] [address] [place] [id number] [address] [place] [address] Mar, [facility] [address] [facility] [id number] [address] [place] [address] Mar, [facility] [address] [place] [id number] [address] [place] [address] Feb, Essential hypertension I10 ; Chronic pain syndrome G89.4 ; Hyperlipidemia, unspecified hyperlipidemia E78.5 ; 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 and Encounter for immunization Z23 [facility] [address] [facility] [id number] [address] [place] [address] Feb, Chronic pain syndrome G89.4 [facility] [address] [facility] [id number] [address] [place] [address] Jan, Chronic pain syndrome G89.4 [facility] [address] [facility] [id number] [address] [place] [address] Jan, [facility] [address] [place] [id number] [address] [place] [address] Jan, Bronchitis J40 ; Port cathet er in place Z95.828 and Chronic pain syndrome G89.4 [facility] [address] [place] [id number] [place] [id number] Jan, [facility] [address] [id number] [address] [place] [address] Dec, Chronic pain syndrome G89.4 [facility] [address] [id number] [address] [place] [address] Dec, Chronic pain syndrome G89.4 [facility] [address] [id number] [address] [place] [address] Dec, [facility] [address] [id number] [address] [place] [address] Nov, [facility] [address] [id number] [address] [place] [address] Nov, Chronic pain syndrome G89.4 [facility] [address] [id number] [address] [place] [address] Oct, Chronic pain syndrome G89.4 [facility] [address] [id number] [address] [place] [address] Oct, [facility] [address] [id number] [address] [place] [address] Sep, Chronic pain syndrome G89.4 [facility] [address] [id number] [address] [place] [address] Sep, Exacerbation of systemic lup us M32.9 [facility] [address] [id number] [address] [place] [address] Sep, [facility] [address] [id number] [address] [place] [address] Sep, [facility] [address] [id number] [address] [place] [address] Sep, Nausea R11.0 [facility] [address] [facility] [id number] [address] [place] [address] August, Chronic pain syndrome G89.4 [place] [address] [facility] [id number] [address] [place] [address] August, [place] [address] [facility] [id number] [address] [place] [address] August, Chronic pain syndrome G89.4 [place] [address] [facility] [id number] [address] [place] [address] Jul, Pneumonia due to infectious organism, unspecified laterality, unspecified part of lung J18.9 and Tobacco abuse counseling Z71.6 [place] [address] [facility] [id number] [address] [place] [address] Jul, Chronic pain syndrome G89.4 [place] [address] [place] [id number] [address] [place] [address] Jun, Essential hypertension I10 [place] [address] [place] [id number] [address] [place] [address] Jun, Pneumonia due to infectious organism, unspecified laterality, unspecified part of lung J18.9 [place] [address] [place] [id number] [address] [place] [address] Jun, Chronic pain syndrome G89.4 [place] [address] [facility] [id number] [address] [place] [address] May, Essential hypertension I10 ; Type 2 diabetes mellitus without complication E11.9 ; Venous insufficiency I87.2 ; Carpal tunnel syndrome, right upper limb G56.01 ; Chronic obstructive pulmonary disease, unspecified COPD type J44.9 ; Chronic pancreatitis, unspecified pancreatitis type K86.1 ; Hypothyroidism, unspecified type E03.9 ; Exacerbation of systemic lupus M32.9 ; Pneumonia due to infectious organism, unspecified laterality, unspecified part of lung J18.9 ; Chronic pain syndrome G89.4 and Gastroesophageal reflux disease without esophagitis K21.9 [place] [address] [place] [id number] [address] [place] [address] Apr, [facility] [address] [facility] [id number] [address] [place] [address] Apr, Pneumonia due to infectious organism, unspecified laterality, unspecified part of lung J18.9 and Nausea R11.0 [facility] [address] [id number] [address] [place] [address] Apr, Essential hypertension I10 ; Chronic pain syndrome G89.4 ; Type 2 diabetes mellitus without complication E11.9 ; Hyperlipidemia, unspecified hyperlipidemia E78.5 ; Major depressive disorder, recurrent episode, unspecified severity F33.9 ; Sciatica, unspecified laterality M54.30 ; Chronic obstructive pulmonary disease, unspecified COPD type J44.9 ; Pneumonia due to infectious organism, unspecified laterality, unspecified part of lung J18.9 and Nausea R11.0 [facility] [address] [facility] [id number] [address] [place] [address] Mar, [facility] [address] [facility] [id number] [address] [place] [address] Mar, [facility] [address] [facility] [id number] [address] [place] [address] Mar, [place] [address] [facility] [id number] [address] [place] [address] Mar, Anxiety F41.9 and Major depr essive disorder, recurrent episode, unspecified severity F33.9 [place] [id number] [facility] [id number] [address] [place] [address] Mar, [facility] [address] [id number] [address] [place] [address] Mar, [place] [address] [facility] [id number] [address] [place] [address] Mar, Generalized abdominal pain R 10.84 ; Acute cystitis with hematuria N30.01 and Essential hypertension I10 [facility] [address] [facility] [id number] [address] [place] [address] 15 Dec, 2016 Sore throat J02.9 and Exacer bation of systemic lupus M32.9 [place] [id number] [place] [address] Feb, Type 2 diabetes mellitus wit hout complication E11.9 ; Essential hypertension I10 ; Chronic pain syndrome G89.4 ; Venous insufficiency I87.2 ; Carpal tunnel syndrome, right upper limb G56.01 ; Major depressive disorder, recurrent episode, unspecified severity F33.9 ; Sciatica, unspecified laterality M54.30 ; Chronic obstructive pulmonary disease, unspecified COPD type J44.9 ; Obstructive sleep apnea G47.33 ; Hypothyroidism, unspecified type E03.9 ; Vitamin D deficiency E55.9 ; Hypercholesterolemia E78.00 and Gastroesophageal reflux disease, esophagitis presence not specified K21.9 [place] [address] [address] Feb, [place] [address] [address] Jan, [facility] [address] [address] Jan, Right arm pain M79.601 [address] of right wrist, initial encounter S66.911A [place] [address] [address] Jan, [facility] [place] [address] [address] 30 Dec, 2015 Generalized abdominal pain R 10.84 [place] [id number] [place] [address] 23 Dec, 2015 Adenopathy R59.1 [place] [address] [address] 19 Dec, 2016 Bronchitis J40 [place] [address] [place] [id number] [address] [place] [address] 14 Dec, 2015 [place] [address] [address] Dec, Essential hypertension I10 [facility] [address] [facility] [id number] [address] [place] [address] Nov, [facility] [address] [facility] [id number] [address] [place] [address] Nov, [facility] [address] [place] [id number] [address] [place] [address] Nov, Essential hypertension I10 ; Hyperlipidemia, unspecified hyperlipidemia E78.5 ; Proteinuria R80.9 ; Generalized abdominal pain R10.84 ; Carpal tunnel syndrome, right upper limb G56.01 ; Venous insufficiency I87.2 ; Anxiety F41.9 ; Chronic obstructive pulmonary disease, unspecified COPD type J44.9 ; Presence of IVC filter Z95.828 ; Obstructive sleep apnea G47.33 ; Acquired hypothyroidism E03.9 ; Left hip pain M25.552 ; Chronic pain syndrome G89.4 ; Gastroesophageal reflux disease with esophagitis K21.0 ; Open-angle glaucoma of right eye, unspecified glaucoma stage, unspecified open-angle glaucoma type H40.10X0 and Type 2 diabetes mellitus without complication E11.9 [place] [address] [place] [address] Nov, [place] [address] [place] [id number] [address] [place] [address] Oct, Type 2 diabetes mellitus wit hout complication E11.9 ; Essential hypertension I10 ; Other viral warts B07.8 ; [place] or callus L84 and Hyperlipidemia, unspecified hyperlipidemia E78.5 [facility] [address] [facility] [id number] [address] [place] [address] Sep, [place] [address] [place] [id number] [address] [place] [address] Sep, [place] [address] [place] [id number] [address] [place] [address] Jun, [facility] [address] [place] [id number] [address] [place] [address] Jun, [place] [address] [id number] [address] [place] [address] May, [facility] [address] [id number] [address] [place] [address] Apr, [facility] [address] [id number] [address] [place] [address] Feb, [facility] [address] [id number] [address] [place] [address] Feb, COPD exacerbation J44.1 and Acute upper respiratory infection J06.9 [facility] [address] [id number] [address] [place] [address] Feb, [facility] [address] [id number] [address] [place] [address] Feb, [facility] [address] [facility] [id number] [address] [place] [address] Feb, [facility] [address] [id number] [address] [place] [address] Feb, [facility] [address] [facility] [id number] [address] [place] [address] Jan, Left hip pain M25.552 [facility] [address] [facility] [id number] [address] [place] [address] Jan, Essential hypertension I10 ; Chronic pain syndrome G89.4 ; Type 2 diabetes mellitus without complication E11.9 and Hyperlipidemia, unspecified hyperlipidemia E78.5 [facility] [address] [id number] [address] [place] [address] 28 Jul, 2014 [facility] [address] [facility] [id number] [address] [place] [address] 14 Jul, 2014 [facility] [address] [facility] [id number] [address] [place] [address] Jul, [facility] [address] [facility] [id number] [address] [place] [address] Jun, [facility] [address] [id number] [address] [place] [address], [place] [address] Jun, [facility] [address] [id number] [address] [place] [address], [place] [address] Jun, [facility] [address] [id number] [address] [place] [address], [place] [address] Jun, [facility] [address] [id number] [address] [place] [address], [place] [address] Jun, [facility] [address] [id number] [address] [place] [address], [place] [address] Jun, [facility] [address] [id number] [address] [place] [address], [place] [address] Jun, [facility] [address] [id number] [address] [place] [address], [place] [address] Jun, [facility] [address] [id number] [address] [place] [address], [place] [address] Jun, [facility] [address] [id number] [address] [place] [address], [place] [address] Jun, [facility] [address] [id number] [address] [place] [address], [place] [address] Jun, [facility] [address] [id number] [address] [place] [address], [place] [address] Jun, [facility] [address] [id number] [address] [place] [address], [place] [address] Apr, [facility] [address] [id number] [address] [place] [address], [place] [address] Apr, [facility] [address] [id number] [address] [place] [address], [place] [address] Apr, [facility] [address] [id number] [address] [place] [address], [place] [address] Apr, [facility] [address] [id number] [address] [place] [address], [place] [address] Apr, [facility] [address] [id number] [address] [place] [address], [place] [address] Apr, [facility] [address] [id number] [address] [place] [address], [place] [address] Apr, [facility] [address] [id number] [address] [place] [address], [place] [address] Apr, [facility] [address] [id number] [address] [place] [address], [place] [address] Mar, [facility] [address] [id number] [address] [place] [address], [place] [address] Mar, [facility] [address] [id number] [address] [place] [address], [place] [address] Mar, [facility] [address] [id number] [address] [place] [address], [place] [address] Mar, [facility] [address] [id number] [address] [place] [address], [place] [address] Mar, [facility] [address] [id number] [address] [place] [address], [place] [address] Mar, [facility] [address] [id number] [address] [place] [address], [place] [address] 15 Mar, 2014 [facility] [address] [id number] [address] [place] [address], [place] [address] Mar, [facility] [address] [id number] [address] [place] [address], [place] [address] Mar, [facility] [address] [id number] [address] [place] [address], [place] [id number] 08 Mar, 2014 [facility] [address] [id number] [address] [place] [address], [place] [address] 08 Mar, 2014 [facility] [address] [id number] [address] [place] [address], [place] [address] Mar, [facility] [address] [id number] [address] [place] [address], [place] [address] Mar, [facility] [address] [id number] [address] [place] [address], [place] [address] Feb, [facility] [address] [id number] [address] [place] [address], [place] [address] Feb, [facility] [address] [id number] [address] [place] [address], [place] [address] Feb, [facility] [address] [id number] [address] [place] [address], [place] [address] Feb, [facility] [address] [id number] [address] [place] [address], [place] [address] Feb, [facility] [address] [id number] [address] [place] [address], [place] [address] Feb, [facility] [address] [id number] [address] [place] [address], [place] [address] Feb, [facility] [address] [id number] [address] [place] [address], [place] [id number] Feb, [facility] [address] [id number] [address] [place] [address], [place] [address] Jan, [facility] [address] [id number] [address] [place] [address], [place] [address] Jan, [facility] [address] [id number] [address] [place] [address], [place] [address] Jan, [facility] [address] [id number] [address] [place] [address], [place] [address] Jan, [facility] [address] [id number] [address] [place] [address], [place] [address] Jan, [facility] [address] [id number] [address] [place] [address], [place] [address] Jan, [facility] [address] [id number] [address] [place] [address], [place] [address] Jan, [facility] [address] [id number] [address] [place] [address], [place] [address] Jan, [facility] [address] [id number] [address] [place] [address], [place] [address] Jan, [facility] [address] [id number] [address] [place] [address], [place] [address] 30 Dec, 2013 [facility] [address] [id number] [address] [place] [address], [place] [address] 30 Dec, 2013 [facility] [address] [id number] [address] [place] [address], [place] [address] Dec, 2013 [facility] [address] [id number] [address] [place] [address], [place] [address] Dec, 2013 [facility] [address] [id number] [address] [place] [address], [place] [address] 16 Dec, 2013 [facility] [address] [id number] [address] [place] [address], [place] [address] 16 Dec, 2013 [facility] [address] [id number] [address] [place] [address], [place] [address] 08 Dec, 2013 [facility] [address] [id number] [address] [place] [address], [place] [address] 08 Dec, 2013 [facility] [address] [id number] [address] [place] [address], [place] [address] Dec, [facility] [address] [id number] [address] [place] [address], [place] [address] Dec, [facility] [address] [id number] [address] [place] [address], [place] [address] Nov, [facility] [address] [id number] [address] [place] [address], [place] [address] Nov, [facility] [address] [id number] [address] [place] [address], [place] [address] Nov, [facility] [address] [id number] [address] [place] [address], [place] [address] Nov, [facility] [address] [id number] [address] [place] [address], [place] [address] Nov, [facility] [address] [id number] [address] [place] [address], [place] [address] Nov, [facility] [address] [id number] [address] [place] [address], [place] [address] Nov, [facility] [address] [id number] [address] [place] [address], [place] [address] Nov, [facility] [address] [id number] [address] [place] [address], [place] [address] Nov, [facility] [address] [id number] [address] [place] [address], [place] [address] Nov, [facility] [address] [id number] [address] [place] [address], [place] [address] Nov, [facility] [address] [id number] [address] [place] [address], [place] [address] Nov, [facility] [address] [id number] [address] [place] [address], [place] [address] Nov, [facility] [address] [id number] [address] [place] [address], [place] [address] Oct, [facility] [address] [id number] [address] [place] [address], [place] [address] Oct, [facility] [address] [id number] [address] [place] [address], [place] [address] Oct, [facility] [address] [id number] [address] [place] [address], [place] [address] Oct, [facility] [address] [id number] [address] [place] [address], [place] [address] Oct, [facility] [address] [id number] [address] [place] [address], [place] [address] Oct, [facility] [address] [id number] [facility] [place] [address] Sep, [facility] [address] [id number] [facility] [place] [address] Sep, [facility] [address] [id number] [facility] [place] [address] Sep, [facility] [address] [id number] [facility] [place] [address] Sep, [facility] [address] [id number] [address] [place] [address], [place] [address] Sep, [facility] [address] [id number] [address] [place] [address], [place] [address] Sep, [facility] [address] [id number] [address] [place] [address], [place] [address] Sep, [facility] [address] [id number] [address] [place] [address], [place] [address] Sep, [facility] [address] [id number] [address] [place] [address], [place] [address] Sep, [facility] [address] [id number] [address] [place] [address], [place] [address] Sep, [facility] [address] [id number] [address] [place] [address], [place] [address] Sep, [facility] [address] [id number] [address] [place] [address], [place] [address] Sep, [facility] [address] [id number] [address] [place] [address], [place] [address] August, [facility] [address] [id number] [address] [place] [address], [place] [address] August, [facility] [address] [id number] [address] [place] [address], [place] [address] Jul, [facility] [address] [id number] [address] [place] [address], [place] [address] 29 Jul, 2013 [facility] [address] [id number] [facility] [place] [address] Jul, [facility] [address] [id number] [address] [place] [address], [place] [address] 24 Jul, 2013 [facility] [address] [id number] [address] [place] [address], [place] [address] Jul, [facility] [address] [id number] [address] [place] [address], [place] [address] Jul, [facility] [address] [id number] [address] [place] [address], [place] [address] Jul, [facility] [address] [id number] [address] [place] [address], [place] [address] Jul, [facility] [address] [id number] [address] [place] [address], [place] [address] Jul, [facility] [address] [id number] [address] [place] [address], [place] [address] Jul, [facility] [address] [id number] [address] [place] [address], [place] [address] Jul, [facility] [address] [id number] [address] [place] [address], [place] [address] 31 Jun, 2013 [facility] [address] [id number] [address] [place] [address], [place] [address] 31 Jun, 2013 [facility] [address] [id number] [address] [place] [address], [place] [address] 28 Jun, 2013 [facility] [address] [id number] [address] [place] [address], [place] [address] 28 Jun, 2013 [facility] [address] [id number] [address] [place] [address], [place] [address] Jun, [facility] [address] [id number] [address] [place] [address], [place] [address] Jun, [facility] [address] [id number] [address] [place] [address], [place] [address] Jun, [facility] [address] [id number] [address] [place] [address], [place] [address] Jun, [facility] [address] [id number] [address] [place] [address], [place] [address] May, [facility] [address] [id number] [address] [place] [address], [place] [address] May, [facility] [address] [id number] [address] [place] [address], [place] [address] May, [facility] [address] [id number] [address] [place] [address], [place] [address] May, [facility] [address] [id number] [address] [place] [address], [place] [address] May, [facility] [address] [id number] [address] [place] [address], [place] [address] May, [facility] [address] [id number] [address] [place] [address], [place] [address] May, [facility] [address] [id number] [address] [place] [address], [place] [address] May, [facility] [address] [id number] [address] [place] [address], [place] [address] May, [facility] [address] [id number] [address] [place] [address] May, [facility] [address] [id number] [address] [place] [address], [place] [address] May, [facility] [address] [id number] [address] [place] [address], [place] [address] May, [facility] [address] [id number] [address] [place] [address] May, [facility] [address] [id number] [address] [place] [address] Apr, [facility] [address] [id number] [address] [place] [address], [place] [address] Apr, [facility] [address] [id number] [address] [place] [address], [place] [address] Apr, [facility] [address] [id number] [address] [place] [address], [place] [address] Apr, [facility] [address] [id number] [address] [place] [address], [place] [address] Apr, [facility] [address] [id number] [address] [place] [address], [place] [address] Apr, [facility] [address] [id number] [address] [place] [address], [place] [address] Apr, [facility] [address] [id number] [address] [place] [address], [place] [address] Apr, [facility] [address] [id number] [address] [place] [address], [place] [address] Apr, [facility] [address] [id number] [address] [place] [address], [place] [address] Apr, [facility] [address] [id number] [address] [place] [address], [place] [address] Apr, [facility] [address] [id number] [address] [place] [address], [place] [address] Apr, [facility] [address] [id number] [address] [place] [address], [place] [address] Apr, [facility] [address] [id number] [address] [place] [address], [place] [address] Apr, [facility] [address] [id number] [address] [place] [address], [place] [address] Apr, [facility] [address] [id number] [address] [place] [address], [place] [address] Mar, [facility] [address] [id number] [address] [place] [address], [place] [address] Mar, [facility] [address] [id number] [address] [place] [address], [place] [address] Mar, [facility] [address] [id number] [address] [place] [address], [place] [address] Mar, [facility] [address] [id number] [address] [place] [address], [place] [address] Mar, [facility] [address] [id number] [address] [place] [address], [place] [address] Mar, [facility] [address] [id number] [address] [place] [address], [place] [address] Mar, [facility] [address] [id number] [address] [place] [address], [place] [address] Mar, [facility] [address] [id number] [address] [place] [address], [place] [address] Mar, [facility] [address] [id number] [address] [place] [address], [place] [address] Mar, [facility] [address] [id number] [address] [place] [address], [place] [address] Mar, [facility] [address] [id number] [address] [place] [address], [place] [address] Mar, [facility] [address] [id number] [address] [place] [address], [place] [address] Feb, [facility] [address] [id number] [address] [place] [address], [place] [address] Feb, [facility] [address] [id number] [address] [place] [address], [place] [address] Feb, [facility] [address] [id number] [address] [place] [address], [place] [address] Feb, [facility] [address] [id number] [address] [place] [address], [place] [address] Feb, [facility] [address] [id number] [address] [place] [address], [place] [address] Feb, [facility] [address] [id number] [address] [place] [address], [place] [address] Feb, [facility] [address] [id number] [address] [place] [address], [place] [address] Feb, [facility] [address] [id number] [address] [place] [address], [place] [address] Jan, [facility] [address] [id number] [address] [place] [address], [place] [address] Jan, [facility] [address] [id number] [address] [place] [address], [place] [address] Jan, [facility] [address] [id number] [address] [place] [address], [place] [address] Jan, [facility] [address] [id number] [address] [place] [address], [place] [address] Jan, [facility] [address] [id number] [address] [place] [address], [place] [address] Jan, [facility] [address] [id number] [address] [place] [address], [place] [address] Jan, [facility] [address] [id number] [address] [place] [address], [place] [address] 27 Dec, 2012 [facility] [address] [id number] [address] [place] [address] 23 Dec, 2012 [facility] [address] [id number] [address] [place] [address], [place] [address] 23 Dec, 2012 [facility] [address] [id number] [address] [place] [address], [place] [address] 12 Dec, 2012 [facility] [address] [id number] [address] [place] [address], [place] [address] Dec, [facility] [address] [id number] [address] [place] [address], [place] [address] Nov, [facility] [address] [id number] [address] [place] [address], [place] [address] Nov, [facility] [address] [id number] [address] [place] [address], [place] [address] Nov, [facility] [address] [id number] [address] [place] [address], [place] [address] Nov, [facility] [address] [id number] [address] [place] [address], [place] [address] Nov, [facility] [address] [id number] [address] [place] [address], [place] [address] Nov, [facility] [address] [id number] [address] [place] [address], [place] [address] Nov, [facility] [address] [id number] [address] [place] [address], [place] [address] Oct, [facility] [address] [id number] [address] [place] [address], [place] [address] Oct, [facility] [address] [id number] [address] [place] [address], [place] [address] Oct, [facility] [address] [id number] [address] [place] [address], [place] [address] Oct, [facility] [address] [id number] [address] [place] [address], [place] [address] Oct, [facility] [address] [id number] [address] [place] [address], [place] [address] Oct, [facility] [address] [id number] [address] [place] [address], [place] [address] Oct, [facility] [address] [id number] [address] [place] [address], [place] [address] Oct, [facility] [address] [id number] [address] [place] [address], [place] [address] Sep, [facility] [address] [id number] [address] [place] [address], [place] [address] 14 Sep, 2012 [facility] [address] [id number] [address] [place] [address], [place] [address] 13 Sep, 2012 [facility] [address] [id number] [address] [place] [address], [place] [address] 12 Sep, 2012 [facility] [address] [id number] [address] [place] [address], [place] [address] Sep, [facility] [address] [id number] [address] [place] [address], [place] [address] 06 Sep, 2012 [facility] [address] [id number] [address] [place] [address], [place] [address] August, [facility] [address] [id number] [address] [place] [address], [place] [address] August, [facility] [address] [id number] [address] [place] [address], [place] [address] August, [facility] [address] [id number] [address] [place] [address], [place] [address] August, [facility] [address] [id number] [address] [place] [address], [place] [address] August, [facility] [address] [id number] [address] [place] [address], [place] [address] Jul, [facility] [address] [id number] [address] [place] [address], [place] [address] Jul, [facility] [address] [id number] [address] [place] [address], [place] [address] 24 Jul, 2012 [facility] [address] [id number] [address] [place] [address], [place] [address] 15 Jul, 2012 [facility] [address] [id number] [address] [place] [address], [place] [address] 11 Jul, 2012 [facility] [address] [id number] [address] [place] [address], [place] [address] 05 Jul, 2012 [facility] [address] [id number] [address] [place] [address], [place] [address] 14 Jun, 2012 [facility] [address] [id number] [address] [place] [address], [place] [address] 13 Jun, 2012 [facility] [address] [id number] [address] [place] [address], [place] [address] 07 Jun, 2012 [facility] [address] [id number] [address] [place] [address], [place] [address] 07 Jun, 2012 [facility] [address] [id number] [address] [place] [address], [place] [address] 05 Jun, 2012 [facility] [address] [id number] [address] [place] [address], [place] [address] 19 May, [address] [facility] [address] [id number] [address] [place] [address], [place] [address] 13 May, 2012 [facility] [address] [id number] [address] [place] [address], [place] [address] May, [facility] [address] [id number] [address] [place] [address], [place] [address] Apr, [facility] [address] [id number] [address] [place] [address], [place] [address] Apr, [facility] [address] [id number] [address] [place] [address], [place] [address] Mar, [facility] [address] [id number] [address] [place] [address], [place] [address] Mar, [facility] [address] [id number] [address] [place] [address], [place] [address] Mar, [facility] [address] [id number] [address] [place] [address], [place] [address] Mar, [facility] [address] [id number] [address] [place] [address], [place] [address] 17 Mar, 2012 [facility] [address] [id number] [address] [place] [address], [place] [address] 13 Mar, 2012 [facility] [address] [id number] [address] [place] [address], [place] [address] Feb, [facility] [address] [id number] [address] [place] [address], [place] [address] Feb, [facility] [address] [id number] [address] [place] [address], [place] [address] Feb, [facility] [address] [id number] [address] [place] [address], [place] [address] 29 Jan, 2012 [facility] [address] [id number] [address] [place] [address], [place] [address] 29 Jan, 2012 [facility] [address] [id number] [address] [place] [address], [place] [address] Jan, [facility] [address] [id number] [address] [place] [address], [place] [address] 24 Jan, 2012 [facility] [address] [id number] [address] [place] [address], [place] [address] 24 Jan, 2012 [facility] [address] [id number] [address] [place] [address], [place] [address] 17 Jan, 2012 [facility] [address] [id number] [address] [place] [address], [place] [address] 17 Jan, 2012 [facility] [address] [id number] [address] [place] [address], [place] [address] 16 Jan, 2012 [facility] [address] [id number] [address] [place] [address], [place] [address] 16 Jan, 2012 [facility] [address] [id number] [address] [place] [address], [place] [address] 18 Sep2011 [facility] [address] [id number] [address] [place] [address], [place] [address] 13 Dec, 2011 [facility] [address] [id number] [address] [place] [address], [place] [address] Dec, [facility] [address] [id number] [address] [place] [address], [place] [address] Nov, [facility] [address] [id number] [address] [place] [address], [place] [address] Nov, [facility] [address] [id number] [address] [place] [address], [place] [address] Nov, [facility] [address] [id number] [address] [place] [address], [place] [address] Oct, [facility] [address] [id number] [address] [place] [address], [place] [address] Oct, [facility] [address] [id number] [address] [place] [address], [place] [address] Sep, [facility] [address] [id number] [address] [place] [address], [place] [address] Sep, [facility] [address] [id number] [address] [place] [address], [place] [address] Sep, [facility] [address] [id number] [address] [place] [address], [place] [address] Sep, [facility] [address] [id number] [address] [place] [address], [place] [address] Sep, [facility] [address] [id number] [address] [place] [address], [place] [address] August, [facility] [address] [id number] [address] [place] [address], [place] [address] August, [facility] [address] [id number] [address] [place] [address], [place] [address] August, [facility] [address] [address] [id number] [address] [place] [address], [place] [address] August, [facility] [address] [id number] [address] [place] [address], [place] [address] August, [facility] [address] [id number] [address] [place] [address], [place] [address] 14 Aug, 2011 [facility] [address] [id number] [address] [place] [address], [place] [address] August, [facility] [address] [id number] [address] [place] [address], [place] [address] August, [facility] [address] [id number] [address] [place] [address], [place] [address] August, [facility] [address] [id number] [address] [place] [address], [place] [address] 27 Jul, 2011 [facility] [address] [id number] [address] [place] [address], [place] [id number] 19 Jul, 2011 [facility] [address] [id number] [address] [place] [address], [place] [address] 10 Jul, 2011 [facility] [address] [id number] [address] [place] [address], [place] [address] 04 Jul, 2011 [facility] [address] [id number] [address] [place] [address], [place] [address] 27 Jun, 2011 [facility] [address] [id number] [address] [place] [address], [place] [address] 13 Jun, 2011 [facility] [address] [id number] [address] [place] [address], [place] [address] 13 Jun, 2011 [facility] [address] [id number] [address] [place] [address], [place] [address] 27 May, 2011 [facility] [address] [id number] [address] [place] [address], [place] [address] 24 May, 2011 [facility] [address] [id number] [address] [place] [address], [place] [address] 20 May, 2011 [facility] [address] [id number] [address] [place] [address], [place] [address] 16 May, 2011 [facility] [address] [id number] [address] [place] [address], [place] [address] 15 May, 2011 [facility] [address] [id number] [address] [place] [address], [place] [address] 14 May, 2011 [facility] [address] [id number] [address] [place] [address], [place] [address] 10 May, 2011 [facility] [address] [id number] [address] [place] [address], [place] [address] 09 May, 2011 [facility] [address] [id number] [address] [place] [address], [place] [address] 02 May, 2011 [facility] [address] [id number] [address] [place] [address], [place] [address] 30 Apr, 2011 [facility] [address] [id number] [address] [place] [address], [place] [address] Apr, [facility] [address] [id number] [address] [place] [address], [place] [address] Apr, [facility] [address] [id number] [address] [place] [address], [place] [address] Apr, [facility] [address] [id number] [address] [place] [address], [place] [address] Apr, [facility] [address] [id number] [address] [place] [address], [place] [address] Apr, [facility] [address] [id number] [address] [place] [address], [place] [address] Apr, [facility] [address] [id number] [address] [place] [address], [place] [address] Apr, [facility] [address] [id number] [address] [place] [address], [place] [address] Apr, [facility] [address] [id number] [address] [place] [address], [place] [address] Apr, [facility] [address] [id number] [address] [place] [address], [place] [address] Apr, [facility] [address] [id number] [address] [place] [address] Mar, [facility] [address] [facility] [id number] [address] [place] [address] Mar, [facility] [address] [facility] [id number] [address] [place] [id number] Mar, [facility] [address] [facility] [id number] [address] [place] [address] Mar, [facility] [address] [facility] [id number] [address] [place] [id number] Feb, [facility] [address] [facility] [id number] [address] [place] [address] Feb, [facility] [address] [facility] [id number] [address] [place] [address] Jan, [facility] [address] [facility] [id number] [address] [place] [address] Nov, IMMUNIZATIONS No Known Immunizations SOCIAL HISTORY Never Assessed REASON FOR VISIT PLAN OF CARE VITAL SIGNS MEDICATIONS Unknown Medications RESULTS No Results PROCEDURES No Known procedures INSTRUCTIONS MEDICATIONS ADMINISTERED No Known Medications MEDICAL (GENERAL) HISTORY Type Description Date Medical History Essential hypertension, benign Medical History hypertension Medical History respiratory disorder pt curr ently on 3L 0f O2 PRN during day . 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 Medical History PE Medical History Bowel obstruction recurrent- has had 21 surgeries Medical History Lupus Medical History Chronic kidney stones Surgical History small bowel resection- 21 bowel surgerie s Surgical History appendectomy Surgical History hysterectomy Surgical History cholecystectomy Surgical History Left knee x 2 Surgical History Tumor removed from right shoulder- fatty Surgical History Left eye retinal detachment repair Surgical History Left eye laser treatment for glaucoma Hospitalization History [facility]- Right side and back pain related to fall, hurts to breathe (ED at 7 pm) 06/07/2017 Hospitalization History [facility] [place]- Anxiety ( went to ED at 1200) 06/07/2017 Hospitalization History COPD exacerbation - [facility] 2017 Hospitalization History Blood clot, port placement - [facility] Pizano 09/2017
--- OUTSIDE RECORDS SUMMARY | 2019-09-01 14:18 | XMS REPORT ---
Author Author Sophia SEGURA Organization [facility] Address [address] [place] [address] Care Team Providers Care Deputy Coroner Name Role Phone HERMINIA SEGURA Unavailable PROBLEMS Type Condition ICD9-CM Code [id number] Code Onset Dates Condition S tatus SNOMED Code Problem Generalized abdominal pain R10.84 Act sree [id number] Problem Anxiety F41.9 Active 78712360 Problem Proteinuria R80.9 Active 98228293 Problem Hyperlipidemia, unspecified hyperlipidemia E78.5 Active 27389013 Problem Essential hypertension I10 Active 89420727 Problem Venous insufficiency I87.2 Active 62867501 Problem Type 2 diabetes mellitus without complication E11. 9 Active 88758585 Problem Pneumonia due to infectious organism, unspecified laterality, unspecified part of lung J18.9 Active 312 787756 Problem Major depressive disorder, recurrent episode, un specified severity F33.9 Active 59062005 Problem Acute cystitis with hematuria N30.01 Active 96715361 Problem Sciatica, unspecified laterality M54.30 Active 78718549 Problem Carpal tunnel syndrome, right upper limb G56.01 Active 03262990 Problem Chronic pain syndrome G89.4 Active 243096433 Problem Port catheter in place Z95.828 Active 478975652 Problem History of small bowel obstruction Z87.19 Active 677172794 Problem Chronic pancreatitis, unspecified pancreatitis type K86.1 Active 872113992 Problem Presence of IVC filter Z95.828 Active 928438867 Problem Vitamin D deficiency E55.9 Active 67032021 Problem Gastroesophageal reflux disease, esophagitis pre sence not specified K21.9 Active 143830370 Problem Exacerbation of systemic lupus M32.9 Active 97507465 Problem Hypothyroidism, unspecified type E03.9 Active 31946684 Problem Nausea R11.0 Active 786590827 Problem Gastroesophageal reflux disease without esophagitis K21.9 Active 941084115 Problem Tobacco abuse counseling Z71.6 Activ e 68073933 Problem Hypertension, benign I10 Active 41013082 Problem Chronic obstructive pulmonary disease, unspecified COPD ty pe J44.9 Active 62337327 Problem Other iron deficiency anemia D50.8 A ctive 16625399 Problem Obstructive sleep apnea G47.33 Active 61170029 Problem History of pulmonary embolism Z86.711 Active 096745319 Problem 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 A ctive 017137263 Problem Opiate dependence, continuous F11.20 Active 593083838 Problem Cannabis abuse with physiological dependence F12.1 0 Active 52807920 Problem Violation of controlled substance agreement Z91.14 Active 750100710 ALLERGIES No Information ENCOUNTERS Encounter Location Date Diagnosis [place] [id number] [facility] [id number] [address] [place] [phone] August, Type 2 diabetes mellitus wit hout complication E11.9 [place] [address] [address] [place] [id number] [place] [phone] 17 Jul, 2019 Essential hypertension I10 ; Type 2 diabetes mellitus without complication E11.9 and Other iron deficiency anemia D50.8 [place] [address] [address] [facility] [id number] [address] [place] [phone] Jul, [place] [address] [address] [place] [id number] [address] [place] [phone] May, [place] [address] [address] [place] [id number] [address] [place] [phone] Apr, Tobacco abuse Z72.0 ; Hypert ension, benign I10 and Tobacco abuse counseling Z71.6 [place] [address] [address] [facility] [id number] [address] [place] [phone] Sep, [place] [address] [address] [facility] [id number] [address] [place] [phone] Sep, [place] [address] [address] [place] [id number] [address] [place] [phone] Sep, Essential hypertension I10 [place] [address] [address] [place] [id number] [address] [place] [phone] Sep, [place] [address] [address] [place] [id number] [address] [place] [phone] Sep, [facility] [place] [address] [facility] [id number] [address] [place] [phone] Sep, Neck mass R22.1 [facility] [place] [address] [facility] [id number] [address] [place] [phone] August, Neck mass R22.1 [facility] [address] [facility] [id number] [address] [place] [phone] Feb, Left foot pain M79.672 [facility] [place] [address] [facility] [id number] [address] [place] [phone] Jun, Chronic pain syndrome G89.4 [facility] [address] [place] [id number] [place] [id number] May, [facility] [place] [address] [facility] [id number] [address] [place] [phone] May, [facility] [place] [address] [facility] [id number] [address] [place] [phone] May, Chronic pain syndrome G89.4 [facility] [place] [address] [facility] [id number] [address] [place] [id number] 13 May, 2017 [facility] [address] [facility] [id number] [address] [place] [phone] 10 May, 2017 Encounter for immunization Z 23 and Laceration of left index finger without foreign body without damage to nail, initial encounter S61.211A [facility] [place] [address] [facility] [id number] [address] [place] [phone] 09 May, 2017 Chronic pain syndrome G89.4 [facility] [place] [address] [facility] [id number] [address] [place] [phone] 07 May, 2017 [facility] [place] [address] [facility] [id number] [address] [place] [phone] Apr, Cannabis abuse with physiolo gical dependence F12.10 ; Violation of controlled substance agreement Z91.14 and Opiate dependence, continuous F11.20 [facility] [place] [address] [facility] [id number] [address] [place] [phone] Apr, Type 2 diabetes mellitus wit hout complication E11.9 [facility] [place] [address] [facility] [id number] [address] [place] [phone] Apr, [facility] [place] [address] [facility] [id number] [address] [place] [phone] Apr, Chronic pain syndrome G89.4 [facility] [place] [address] [facility] [id number] [address] [place] [phone] Apr, Viral syndrome B34.9 [facility] [place] [address] [facility] [id number] [address] [place] [phone] Apr, [facility] [place] [address] [place] [id number] [address] [place] [id number] Mar, Chronic pain syndrome G89.4 [facility] [place] [address] [place] [id number] [address] [place] [id number] Mar, [facility] [place] [address] [place] [id number] [address] [place] [phone] Mar, [facility] [place] [address] [place] [id number] [address] [place] [phone] Feb, Essential hypertension I10 ; Chronic pain syndrome G89.4 ; Hyperlipidemia, unspecified hyperlipidemia E78.5 ; 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 and Encounter for immunization Z23 [facility] [place] [address] [facility] [id number] [address] [place] [id number] Feb, Chronic pain syndrome G89.4 [facility] [place] [address] [facility] [id number] [address] [place] [phone] Jan, Chronic pain syndrome G89.4 [facility] [place] [address] [facility] [id number] [address] [place] [phone] Jan, [facility] [place] [address] [place] [id number] [address] [place] [id number] Jan, Bronchitis J40 ; Port cathet er in place Z95.828 and Chronic pain syndrome G89.4 [facility] [address] [place] [id number] [place] [id number] Jan, [facility] [place] [address] [id number] [address] [place] [phone] Dec, Chronic pain syndrome G89.4 [facility] [place] [address] [id number] [address] [place] [phone] Dec, Chronic pain syndrome G89.4 [facility] [place] [address] [id number] [address] [place] [id number] Dec, [facility] [place] [address] [id number] [address] [place] [phone] Nov, [facility] [place] [address] [id number] [address] [place] [phone] Nov, Chronic pain syndrome G89.4 [facility] [place] [address] [id number] [address] [place] [phone] Oct, Chronic pain syndrome G89.4 [facility] [place] [address] [id number] [address] [place] [phone] Oct, [facility] [place] [address] [id number] [address] [place] [id number] Sep, Chronic pain syndrome G89.4 [facility] [place] [address] [id number] [address] [place] [id number] Sep, Exacerbation of systemic lup us M32.9 [facility] [place] [address] [id number] [address] [place] [id number] Sep, [facility] [place] [address] [id number] [address] [place] [id number] Sep, [facility] [place] [address] [id number] [address] [place] [phone] Sep, Nausea R11.0 [facility] [place] [address] [place] [id number] August, Chronic pain syndrome G89.4 [place] [address] [place] [id number] August, [place] [address] [address] [place] [id number] [address] [place] [phone] August, Chronic pain syndrome G89.4 [place] [address] [address] [place] [id number] [address] [place] [id number] Jul, Pneumonia due to infectious organism, unspecified laterality, unspecified part of lung J18.9 and Tobacco abuse counseling Z71.6 [place] [address] [id number] Jul, Chronic pain syndrome G89.4 [place] [address] [address] Jun, Essential hypertension I10 [place] [address] [address] Jun, Pneumonia due to infectious organism, unspecified laterality, unspecified part of lung J18.9 [place] [address] [address] [place] [id number] [address] [place] [phone] Jun, Chronic pain syndrome G89.4 [place] [address] [place] [id number] [address] [place] [phone] May, Essential hypertension I10 ; Type 2 [...] and Gastroesophageal reflux disease without esophagitis K21.9 [place] [id number] [address] [place] [id number] Apr, [facility] [place] [address] [facility] [id number] [address] [place] [phone] Apr, Pneumonia due to infectious organism, unspecified laterality, unspecified part of lung J18.9 and Nausea R11.0 [facility] [place] [address] [facility] [id number] [address] [place] [id number] Apr, Essential hypertension I10 ; Chronic pain syndrome G89.4 ; Type 2 diabetes mellitus without complication E11.9 ; Hyperlipidemia, unspecified hyperlipidemia E78.5 ; Major depressive disorder, recurrent episode, unspecified severity F33.9 ; Sciatica, unspecified laterality M54.30 ; Chronic obstructive pulmonary disease, unspecified COPD type J44.9 ; Pneumonia due to infectious organism, unspecified laterality, unspecified part of lung J18.9 and Nausea R11.0 [facility] [address] [facility] [id number] [address] [place] [phone] Mar, [facility] [place] [address] [facility] [id number] [address] [place] [id number] Mar, [facility] [place] [address] [facility] [id number] [address] [place] [phone] Mar, [place] [address] [address] [facility] [id number] [address] [place] [phone] Mar, Anxiety F41.9 and Major depr essive disorder, recurrent episode, unspecified severity F33.9 [facility] [place] [address] [facility] [id number] [address] [place] [id number] Mar, [facility] [place] [address] [facility] [id number] [address] [place] [phone] Mar, [place] [address] [address] [facility] [id number] [address] [place] [id number] Mar, Generalized abdominal pain R 10.84 ; Acute cystitis with hematuria N30.01 and Essential hypertension I10 [facility] [address] [facility] [id number] [address] [place] [phone] Mar, Sore throat J02.9 and Exacer bation of systemic lupus M32.9 [place] [address] [place] [address] Feb, Type 2 diabetes mellitus wit hout [...] reflux disease, esophagitis presence not specified K21.9 [place] [address] [address] Feb, [place] [address] [address] Jan, [facility] [place] [address] [address] Jan, Right arm pain M79.[address] of right wrist, initial encounter S66.911A [place] [address] [address] Jan, [facility] [place] [address] [address] 30 Dec, 2015 Generalized abdominal pain R 10.84 [place] [address] [place] [phone] 23 Dec, 2015 Adenopathy R59.1 [place] [address] [address] 19 Dec, 2016 Bronchitis J40 [place] [address] [address] 14 Dec, 2015 [place] [address] [address] Dec, Essential hypertension I10 [facility] [place] [address] [place] [id number] [address] [place] [phone] Nov, [facility] [place] [address] [place] [id number] [address] [place] [phone] Nov, [place] [address] [address] [place] [id number] [address] [place] [address] Nov, Essential hypertension I10 ; Hyperlipidemia, unspecified [...] Type 2 diabetes mellitus without complication E11.9 [place] [address] [address] Nov, [place] [address] [address] Oct, Type 2 diabetes mellitus wit hout complication E11.9 ; Essential hypertension I10 ; Other viral warts B07.8 ; [place] or callus L84 and Hyperlipidemia, unspecified hyperlipidemia E78.5 [place] [address] [address] [place] [id number] [address] [place] [phone] Sep, [place] [address] [address] [place] [id number] [address] [place] [phone] Sep, [place] [address] [place] [id number] [address] [place] [phone] Jun, [place] [address] [place] [id number] [address] [place] [phone] Jun, [place] [address] [id number] [address] [place] [id number] 16 May, 2015 [facility] [place] [address] [id number] [address] [place] [id number] Apr, [facility] [place] [address] [id number] [address] [place] [phone] Feb, [facility] [place] [address] [id number] [address] [place] [id number] Feb, COPD exacerbation J44.1 and Acute upper respiratory infection J06.9 [facility] [place] [address] [id number] [address] [place] [id number] Feb, [facility] [place] [address] [id number] [address] [place] [phone] Feb, [facility] [place] [address] [facility] [id number] [address] [place] [id number] Feb, [facility] [place] [address] [id number] [address] [place] [id number] Feb, [facility] [place] [address] [id number] [address] [place] [address] Jan, Left hip pain M25.552 [facility] [place] [address] [facility] [id number] [address] [place] [address] Jan, Essential hypertension I10 ; Chronic pain syndrome G89.4 ; Type 2 diabetes mellitus without complication E11.9 and Hyperlipidemia, unspecified hyperlipidemia E78.5 [facility] [place] [address] [id number] [address] [place] [id number] 28 Jul, 2014 [facility] [place] [address] [facility] [id number] [address] [place] [id number] 14 Jul, 2014 [facility] [place] [address] [facility] [id number] [address] [place] [id number] Jul, [facility] [place] [address] [facility] [id number] [address] [place] [phone] Jun, [facility] [address] [id number] [address] [place] [address], [place] [address] Jun, [facility] [address] [id number] [address] [place] [address], [place] [address] Jun, [facility] [address] [id number] [address] [place] [address], [place] [address] Jun, [facility] [address] [id number] [address] [place] [address], [place] [address] Jun, [facility] [address] [id number] [address] [place] [address], [place] [address] Jun, [facility] [address] [id number] [address] [place] [address], [place] [address] Jun, [facility] [address] [id number] [address] [place] [address], [place] [address] Jun, [facility] [address] [id number] [address] [place] [address], [place] [address] Jun, [facility] [address] [id number] [address] [place] [address], [place] [address] Jun, [facility] [address] [id number] [address] [place] [address], [place] [address] Jun, [facility] [address] [id number] [address] [place] [address], [place] [address] Jun, [facility] [address] [id number] [address] [place] [address], [place] [address] Apr, [facility] [address] [id number] [address] [place] [address], [place] [address] Apr, [facility] [address] [id number] [address] [place] [address], [place] [address] Apr, [facility] [address] [id number] [address] [place] [address], [place] [address] Apr, [facility] [address] [id number] [address] [place] [address], [place] [address] Apr, [facility] [address] [id number] [address] [place] [address], [place] [address] Apr, [facility] [address] [id number] [address] [place] [address], [place] [address] Apr, [facility] [address] [id number] [address] [place] [address], [place] [address] Apr, [facility] [address] [id number] [address] [place] [address], [place] [address] Mar, [facility] [address] [id number] [address] [place] [address], [place] [address] Mar, [facility] [address] [id number] [address] [place] [address], [place] [address] Mar, [facility] [address] [id number] [address] [place] [address], [place] [address] Mar, [facility] [address] [id number] [address] [place] [address], [place] [address] Mar, [facility] [address] [id number] [address] [place] [address], [place] [address] Mar, [facility] [address] [id number] [address] [place] [address], [place] [address] 15 Mar, 2014 [facility] [address] [id number] [address] [place] [address], [place] [address] Mar, [facility] [address] [id number] [address] [place] [address], [place] [address] Mar, [facility] [address] [id number] [address] [place] [address], [place] [address] 08 Mar, 2014 [facility] [address] [id number] [address] [place] [address], [place] [address] Mar, [facility] [address] [id number] [address] [place] [address], [place] [address] 05 Mar, 2014 [facility] [address] [id number] [address] [place] [address], [place] [address] Mar, [facility] [address] [id number] [address] [place] [address], [place] [address] Feb, [facility] [address] [id number] [address] [place] [address], [place] [address] Feb, [facility] [address] [id number] [address] [place] [address], [place] [address] Feb, [facility] [address] [id number] [address] [place] [address], [place] [address] Feb, [facility] [address] [id number] [address] [place] [address], [place] [address] Feb, [facility] [address] [id number] [address] [place] [address], [place] [address] Feb, [facility] [address] [id number] [address] [place] [address], [place] [address] Feb, [facility] [address] [id number] [address] [place] [address], [place] [address] Feb, [facility] [address] [id number] [address] [place] [address], [place] [address] Jan, [facility] [address] [id number] [address] [place] [address], [place] [address] Jan, [facility] [address] [id number] [address] [place] [address], [place] [address] Jan, [facility] [address] [id number] [address] [place] [address], [place] [address] Jan, [facility] [address] [id number] [address] [place] [address], [place] [address] Jan, [facility] [address] [id number] [address] [place] [address], [place] [address] Jan, [facility] [address] [id number] [address] [place] [address], [place] [address] Jan, [facility] [address] [id number] [address] [place] [address], [place] [address] Jan, [facility] [address] [id number] [address] [place] [address], [place] [address] Jan, [facility] [address] [id number] [address] [place] [address], [place] [address] 30 Dec, 2013 [facility] [address] [id number] [address] [place] [address], [place] [address] 30 Dec, 2013 [facility] [address] [id number] [address] [place] [address], [place] [address] 26 Dec, 2013 [facility] [address] [id number] [address] [place] [address], [place] [address] 26 Dec, 2013 [facility] [address] [id number] [address] [place] [address], [place] [address] 16 Dec, 2013 [facility] [address] [id number] [address] [place] [address], [place] [address] 16 Dec, 2013 [facility] [address] [id number] [address] [place] [address], [place] [address] 08 Dec, 2013 [facility] [address] [id number] [address] [place] [address], [place] [address] 08 Dec, 2013 [facility] [address] [id number] [address] [place] [address], [place] [address] Dec, [facility] [address] [id number] [address] [place] [address], [place] [address] Dec, [facility] [address] [id number] [address] [place] [address], [place] [address] Nov, [facility] [address] [id number] [address] [place] [address], [place] [address] Nov, [facility] [address] [id number] [address] [place] [address], [place] [address] Nov, [facility] [address] [id number] [address] [place] [address] Nov, [facility] [address] [id number] [address] [place] [address], [place] [address] Nov, [facility] [address] [id number] [address] [place] [address], [place] [address] Nov, [facility] [address] [id number] [address] [place] [address], [place] [address] Nov, [facility] [address] [id number] [address] [place] [address], [place] [address] Nov, [facility] [address] [id number] [address] [place] [address], [place] [address] Nov, [facility] [address] [id number] [address] [place] [address], [place] [address] Nov, [facility] [address] [id number] [address] [place] [address], [place] [address] Nov, [facility] [address] [id number] [address] [place] [address], [place] [address] Nov, [facility] [address] [id number] [address] [place] [address], [place] [address] Nov, [facility] [address] [id number] [address] [place] [address], [place] [address] Oct, [facility] [address] [id number] [address] [place] [address], [place] [address] Oct, [facility] [address] [id number] [address] [place] [address], [place] [address] Oct, [facility] [address] [id number] [address] [place] [address], [place] [address] Oct, [facility] [address] [id number] [address] [place] [address], [place] [address] Oct, [facility] [address] [id number] [address] [place] [address], [place] [address] Oct, [facility] [address] [id number] [facility] [place] [address] Sep, [facility] [address] [id number] [facility] [place] [address] Sep, [facility] [address] [id number] [facility] [place] [address] Sep, [facility] [address] [id number] [facility] [place] [address] Sep, [facility] [address] [id number] [address] [place] [address], [place] [address] Sep, [facility] [address] [id number] [address] [place] [address], [place] [address] Sep, [facility] [address] [id number] [address] [place] [address], [place] [address] Sep, [facility] [address] [id number] [address] [place] [address], [place] [address] Sep, [facility] [address] [id number] [address] [place] [address], [place] [address] Sep, [facility] [address] [id number] [address] [place] [address], [place] [address] Sep, [facility] [address] [id number] [address] [place] [address], [place] [address] Sep, [facility] [address] [id number] [address] [place] [address], [place] [address] Sep, [facility] [address] [id number] [address] [place] [address], [place] [address] August, [facility] [address] [id number] [address] [place] [address], [place] [address] August, [facility] [address] [id number] [address] [place] [address], [place] [address] Jul, [facility] [address] [id number] [address] [place] [address], [place] [address] 29 Jul, 2013 [facility] [address] [id number] [facility] [place] [address] Jul, [facility] [address] [id number] [facility] [place] [address] 24 Jul, 2013 [facility] [address] [id number] [address] [place] [address], [place] [address] Jul, [facility] [address] [id number] [address] [place] [address], [place] [address] Jul, [facility] [address] [id number] [address] [place] [address], [place] [address] Jul, [facility] [address] [id number] [address] [place] [address], [place] [address] 16 Jul, 2013 [facility] [address] [id number] [address] [place] [address], [place] [address] Jul, [facility] [address] [id number] [address] [place] [address], [place] [address] 15 Jul, 2013 [facility] [address] [id number] [address] [place] [address], [place] [address] 09 Jul, 2013 [facility] [address] [id number] [address] [place] [address], [place] [address] 31 Jun, 2013 [facility] [address] [id number] [address] [place] [address], [place] [address] 31 Jun, 2013 [facility] [address] [id number] [address] [place] [address], [place] [address] 28 Jun, 2013 [facility] [address] [id number] [address] [place] [address], [place] [address] 28 Jun, 2013 [facility] [address] [id number] [address] [place] [address], [place] [address] Jun, [facility] [address] [id number] [address] [place] [address], [place] [address] Jun, [facility] [address] [id number] [address] [place] [address], [place] [address] Jun, [facility] [address] [id number] [address] [place] [address], [place] [address] Jun, [facility] [address] [id number] [address] [place] [address], [place] [address] May, [facility] [address] [id number] [address] [place] [address], [place] [address] May, [facility] [address] [id number] [address] [place] [address], [place] [address] May, [facility] [address] [id number] [address] [place] [address], [place] [address] May, [facility] [address] [id number] [address] [place] [address], [place] [address] May, [facility] [address] [id number] [address] [place] [address], [place] [address] May, [facility] [address] [id number] [address] [place] [address], [place] [address] May, [facility] [address] [id number] [address] [place] [address], [place] [address] May, [facility] [address] [id number] [address] [place] [address], [place] [address] May, [facility] [address] [id number] [address] [place] [address], [place] [address] May, [facility] [address] [id number] [address] [place] [address], [place] [address] May, [facility] [address] [id number] [address] [place] [address], [place] [address] May, [facility] [address] [id number] [address] [place] [address], [place] [address] May, [facility] [address] [id number] [address] [place] [address], [place] [address] Apr, [facility] [address] [id number] [address] [place] [address], [place] [address] Apr, [facility] [address] [id number] [address] [place] [address], [place] [address] Apr, [facility] [address] [id number] [address] [place] [address], [place] [address] Apr, [facility] [address] [id number] [address] [place] [address], [place] [address] Apr, [facility] [address] [id number] [address] [place] [address], [place] [address] Apr, [facility] [address] [id number] [address] [place] [address], [place] [address] Apr, [facility] [address] [id number] [address] [place] [address], [place] [address] Apr, [facility] [address] [id number] [address] [place] [address], [place] [address] Apr, [facility] [address] [id number] [address] [place] [address], [place] [address] Apr, [facility] [address] [id number] [address] [place] [address], [place] [address] Apr, [facility] [address] [id number] [address] [place] [address], [place] [address] Apr, [facility] [address] [id number] [address] [place] [address], [place] [address] Apr, [facility] [address] [id number] [address] [place] [address], [place] [address] Apr, [facility] [address] [id number] [address] [place] [address], [place] [address] Apr, [facility] [address] [id number] [address] [place] [address], [place] [address] Mar, [facility] [address] [id number] [address] [place] [address], [place] [address] Mar, [facility] [address] [id number] [address] [place] [address], [place] [address] Mar, [facility] [address] [id number] [address] [place] [address], [place] [address] Mar, [facility] [address] [id number] [address] [place] [address], [place] [address] Mar, [facility] [address] [id number] [address] [place] [address], [place] [address] Mar, [facility] [address] [id number] [address] [place] [address], [place] [address] Mar, [facility] [address] [id number] [address] [place] [address], [place] [address] Mar, [facility] [address] [id number] [address] [place] [address], [place] [address] Mar, [facility] [address] [id number] [address] [place] [address], [place] [address] Mar, [facility] [address] [id number] [address] [place] [address], [place] [address] Mar, [facility] [address] [id number] [address] [place] [address], [place] [address] Mar, [facility] [address] [id number] [address] [place] [address], [place] [address] Feb, [facility] [address] [id number] [address] [place] [address], [place] [address] Feb, [facility] [address] [id number] [address] [place] [address], [place] [address] Feb, [facility] [address] [id number] [address] [place] [address], [place] [address] Feb, [facility] [address] [id number] [address] [place] [address], [place] [address] Feb, [facility] [address] [id number] [address] [place] [address], [place] [address] Feb, [facility] [address] [id number] [address] [place] [address], [place] [address] Feb, [facility] [address] [id number] [address] [place] [address], [place] [address] Feb, [facility] [address] [id number] [address] [place] [address], [place] [address] Jan, [facility] [address] [id number] [address] [place] [address], [place] [address] Jan, [facility] [address] [id number] [address] [place] [address], [place] [address] Jan, [facility] [address] [id number] [address] [place] [address], [place] [address] Jan, [facility] [address] [id number] [address] [place] [address], [place] [address] Jan, [facility] [address] [id number] [address] [place] [address], [place] [address] Jan, [facility] [address] [id number] [address] [place] [address], [place] [address] Jan, [facility] [address] [id number] [address] [place] [address], [place] [address] 27 Dec, 2012 [facility] [address] [id number] [address] [place] [address], [place] [address] 23 Dec, 2012 [facility] [address] [id number] [address] [place] [address], [place] [address] 23 Dec, 2012 [facility] [address] [id number] [address] [place] [address], [place] [address] 12 Dec, 2012 [facility] [address] [id number] [address] [place] [address], [place] [address] Dec, [facility] [address] [id number] [address] [place] [address] [place] [address] Nov, [facility] [address] [id number] [address] [place] [address], [place] [address] Nov, [facility] [address] [id number] [address] [place] [address], [place] [address] Nov, [facility] [address] [id number] [address] [place] [address], [place] [address] Nov, [facility] [address] [id number] [address] [place] [address], [place] [address] Nov, [facility] [address] [id number] [address] [place] [address], [place] [address] Nov, [facility] [address] [id number] [address] [place] [address], [place] [address] Nov, [facility] [address] [id number] [address] [place] [address], [place] [address] Oct, [facility] [address] [id number] [address] [place] [address], [place] [address] Oct, [facility] [address] [id number] [address] [place] [address], [place] [address] Oct, [facility] [address] [id number] [address] [place] [address], [place] [address] Oct, [facility] [address] [id number] [address] [place] [address], [place] [address] Oct, [facility] [address] [id number] [address] [place] [address], [place] [address] Oct, [facility] [address] [id number] [address] [place] [address], [place] [address] Oct, [facility] [address] [id number] [address] [place] [address], [place] [address] Oct, [facility] [address] [id number] [address] [place] [address], [place] [address] Sep, [facility] [address] [id number] [address] [place] [address], [place] [address] 14 Sep, 2012 [facility] [address] [id number] [address] [place] [address], [place] [address] 13 Sep, 2012 [facility] [address] [id number] [address] [place] [address], [place] [address] 12 Sep, 2012 [facility] [address] [id number] [address] [place] [address], [place] [address] 10 Sep, 2012 [facility] [address] [id number] [address] [place] [address], [place] [address] 06 Sep, 2012 [facility] [address] [id number] [address] [place] [address], [place] [address] August, [facility] [address] [id number] [address] [place] [address], [place] [address] August, [facility] [address] [id number] [address] [place] [address], [place] [address] August, [facility] [address] [id number] [address] [place] [address], [place] [address] August, [facility] [address] [id number] [address] [place] [address], [place] [address] August, [facility] [address] [id number] [address] [place] [address], [place] [address] Jul, [facility] [address] [id number] [address] [place] [address], [place] [address] Jul, [facility] [address] [id number] [address] [place] [address], [place] [address] 24 Jul, 2012 [facility] [address] [id number] [address] [place] [address], [place] [address] 15 Jul, 2012 [facility] [address] [id number] [address] [place] [address], [place] [address] 11 Jul, 2012 [facility] [address] [id number] [address] [place] [address], [place] [address] 05 Jul, 2012 [facility] [address] [id number] [address] [place] [address], [place] [address] 14 Jun, 2012 [facility] [address] [id number] [address] [place] [address], [place] [address] 13 Jun, 2012 [facility] [address] [id number] [address] [place] [address], [place] [address] 07 Jun, 2012 [facility] [address] [id number] [address] [place] [address], [place] [address] 07 Jun, 2012 [facility] [address] [id number] [address] [place] [address], [place] [address] 05 Jun, 2012 [facility] [address] [id number] [address] [place] [address], [place] [address] 19 May, 2012 [facility] [address] [id number] [address] [place] [address], [place] [address] 13 May, 2012 [facility] [address] [id number] [address] [place] [address], [place] [address] May, [facility] [address] [id number] [address] [place] [address], [place] [address] Apr, [facility] [address] [id number] [address] [place] [address], [place] [address] Apr, [facility] [address] [id number] [address] [place] [address], [place] [address] Mar, [facility] [address] [id number] [address] [place] [address], [place] [address] Mar, [facility] [address] [id number] [address] [place] [address], [place] [address] Mar, [facility] [address] [id number] [address] [place] [address], [place] [address] Mar, [facility] [address] [id number] [address] [place] [address], [place] [address] Mar, [facility] [address] [id number] [address] [place] [address], [place] [address] 13 Mar, 2012 [facility] [address] [id number] [address] [place] [address], [place] [address] Feb, [facility] [address] [id number] [address] [place] [address], [place] [address] Feb, [facility] [address] [id number] [address] [place] [address], [place] [address] Feb, [facility] [address] [id number] [address] [place] [address], [place] [address] Jan, [facility] [address] [id number] [address] [place] [address], [place] [address] 29 Jan, 2012 [facility] [address] [id number] [address] [place] [address], [place] [address] Jan, [facility] [address] [id number] [address] [place] [address], [place] [address] 24 Jan, 2012 [facility] [address] [id number] [address] [place] [address], [place] [address] 24 Jan, 2012 [facility] [address] [id number] [address] [place] [address], [place] [address] 17 Jan, 2012 [facility] [address] [id number] [address] [place] [address], [place] [address] 17 Jan, 2012 [facility] [address] [id number] [address] [place] [address], [place] [address] 16 Jan, 2012 [facility] [address] [id number] [address] [place] [address], [place] [address] 16 Jan, 2012 [facility] [address] [id number] [address] [place] [address], [place] [address] 18 Sep2011 [facility] [address] [id number] [address] [place] [address], [place] [address] 13 Sep2011 [facility] [address] [id number] [address] [place] [address], [place] [address] Dec, [facility] [address] [id number] [address] [place] [address], [place] [address] Nov, [facility] [address] [id number] [address] [place] [address], [place] [address] Nov, [facility] [address] [id number] [address] [place] [address], [place] [address] Nov, [facility] [address] [id number] [address] [place] [address], [place] [address] Oct, [facility] [address] [id number] [address] [place] [address], [place] [address] Oct, [facility] [address] [id number] [address] [place] [address], [place] [address] Sep, [facility] [address] [id number] [address] [place] [address], [place] [address] Sep, [facility] [address] [id number] [address] [place] [address], [place] [address] Sep, [facility] [address] [id number] [address] [place] [address], [place] [address] Sep, [facility] [address] [id number] [address] [place] [address], [place] [address] Sep, [facility] [address] [id number] [address] [place] [address], [place] [address] August, [facility] [address] [address] [id number] [address] [place] [address], [place] [address] August, [facility] [address] [id number] [address] [place] [address], [place] [address] August, [facility] [address] [id number] [address] [place] [address], [place] [address] August, [facility] [address] [id number] [address] [place] [address], [place] [address] August, [facility] [address] [id number] [address] [place] [address], [place] [address] 14 Aug, 2011 [facility] [address] [id number] [address] [place] [address], [place] [address] August, [facility] [address] [id number] [address] [place] [address], [place] [address] August, [facility] [address] [id number] [address] [place] [address], [place] [address] August, [facility] [address] [id number] [address] [place] [address], [place] [address] 27 Jul, 2011 [facility] [address] [id number] [address] [place] [address], [place] [address] 19 Jul, 2011 [facility] [address] [id number] [address] [place] [address], [place] [address] 10 Jul, 2011 [facility] [address] [id number] [address] [place] [address], [place] [address] 04 Jul, 2011 [facility] [address] [id number] [address] [place] [address], [place] [address] 27 Jun, 2011 [facility] [address] [id number] [address] [place] [address], [place] [address] 13 Jun, 2011 [facility] [address] [id number] [address] [place] [address], [place] [address] 13 Jun, 2011 [facility] [address] [id number] [address] [place] [address], [place] [address] 27 May, 2011 [facility] [address] [id number] [address] [place] [address], [place] [address] 24 May, 2011 [facility] [address] [id number] [address] [place] [address], [place] [address] 20 May, 2011 [facility] [address] [id number] [address] [place] [address], [place] [address] 16 May, 2011 [facility] [address] [id number] [address] [place] [address], [place] [address] 15 May, 2011 [facility] [address] [id number] [address] [place] [address], [place] [address] 14 May, 2011 [facility] [address] [id number] [address] [place] [address], [place] [address] 10 May, 2011 [facility] [address] [id number] [address] [place] [address], [place] [address] 09 May, 2011 [facility] [address] [id number] [address] [place] [address], [place] [address] May, [facility] [address] [id number] [address] [place] [address], [place] [address] Apr, [facility] [address] [id number] [address] [place] [address], [place] [address] Apr, [facility] [address] [id number] [address] [place] [address], [place] [address] Apr, [facility] [address] [id number] [address] [place] [address], [place] [address] Apr, [facility] [address] [id number] [address] [place] [address], [place] [address] Apr, [facility] [address] [id number] [address] [place] [address], [place] [address] Apr, [facility] [address] [id number] [address] [place] [address], [place] [address] Apr, [facility] [address] [id number] [address] [place] [address], [place] [address] Apr, [facility] [address] [id number] [address] [place] [address], [place] [address] Apr, [facility] [address] [id number] [address] [place] [address], [place] [address] Apr, [facility] [address] [id number] [address] [place] [address], [place] [address] Apr, [facility] [address] [id number] [address] [place] [address] Mar, [facility] [place] [address] [id number] [address] [place] [address] Mar, [facility] [place] [address] [id number] [address] [place] [address] Mar, [facility] [place] [address] [id number] [address] [place] [address] Mar, [facility] [place] [address] [id number] [address] [place] [address] Feb, [facility] [place] [address] [id number] [address] [place] [phone] Feb, [facility] [place] [address] [facility] [id number] [address] [place] [phone] Jan, [facility] [place] [address] [facility] [id number] [address] [place] [id number] Nov, IMMUNIZATIONS No Known Immunizations SOCIAL HISTORY Never Assessed REASON FOR VISIT PLAN OF CARE VITAL SIGNS Height 67 in 2012-11-14 Weight 188.6 lbs 2012-11-14 Temperature 97.8 degrees Fahrenheit 2012-11-14 Heart Rate 96 bpm 2012-11-14 Respiratory Rate 18 2012-11-14 Blood pressure systolic 104 mmHg 2012-11-14 Blood pressure diastolic 60 mmHg 2012-11-14 MEDICATIONS Unknown Medications RESULTS No Results PROCEDURES [...] eye laser treatment for glaucoma Hospitalization History [facility]- Right side and back pain related to fall, hurts to breathe (ED at 7 pm) 06/07/2017 Hospital[facility] History [facility] [place]- Anxiety ( went to ED at 1200) 06/07/2017 Hospitalization History COPD exacerbation - Gerald Pizano 2017 Hospitalization History Blood clot, port placement - Gerald Pizano 09/2017
--- OUTSIDE RECORDS SUMMARY | 2019-09-01 14:18 | XMS REPORT ---
Author Author Sophia SEGURA Organization [facility] Address [address] [place] [address] Care Team Providers Care Music Agent Name Role Phone HERMINIA SEGURA Unavailable PROBLEMS Type Condition ICD9-CM Code [id number] Code Onset Dates Condition S tatus SNOMED Code Problem Generalized abdominal pain R10.84 Act sree [id number] Problem Anxiety F41.9 Active 61386133 Problem Proteinuria R80.9 Active 80892521 Problem Hyperlipidemia, unspecified hyperlipidemia E78.5 Active 61681362 Problem Essential hypertension I10 Active 44602905 Problem Venous insufficiency I87.2 Active 78173550 Problem Type 2 diabetes mellitus without complication E11. 9 Active 17424086 Problem Pneumonia due to infectious organism, unspecified laterality, unspecified part of lung J18.9 Active 312 242518 Problem Major depressive disorder, recurrent episode, un specified severity F33.9 Active 93041743 Problem Acute cystitis with hematuria N30.01 Active 22949995 Problem Sciatica, unspecified laterality M54.30 Active 91616375 Problem Carpal tunnel syndrome, right upper limb G56.01 Active 19657070 Problem Chronic pain syndrome G89.4 Active 863447080 Problem Port catheter in place Z95.828 Active 642291365 Problem History of small bowel obstruction Z87.19 Active 823799972 Problem Chronic pancreatitis, unspecified pancreatitis type K86.1 Active 810559433 Problem Presence of IVC filter Z95.828 Active 105195082 Problem Vitamin D deficiency E55.9 Active 60857487 Problem Gastroesophageal reflux disease, esophagitis pre sence not specified K21.9 Active 259461767 Problem Exacerbation of systemic lupus M32.9 Active 13304781 Problem Hypothyroidism, unspecified type E03.9 Active 05004149 Problem Nausea R11.0 Active 849543073 Problem Gastroesophageal reflux disease without esophagitis K21.9 Active 397385419 Problem Tobacco abuse counseling Z71.6 Activ e 07155523 Problem Hypertension, benign I10 Active 77679635 Problem Chronic obstructive pulmonary disease, unspecified COPD ty pe J44.9 Active 83483885 Problem Other iron deficiency anemia D50.8 A ctive 27712335 Problem Obstructive sleep apnea G47.33 Active 79700758 Problem History of pulmonary embolism Z86.711 Active 260585590 Problem 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 A ctive 554284861 Problem Opiate dependence, continuous F11.20 Active 480043589 Problem Cannabis abuse with physiological dependence F12.1 0 Active 77336575 Problem Violation of controlled substance agreement Z91.14 Active 800743768 ALLERGIES No Information ENCOUNTERS Encounter Location Date Diagnosis [place] [id number] [facility] [id number] [address] [place] [phone] August, Type 2 diabetes mellitus wit hout complication E11.9 [place] [address] [place] [id number] [place] [phone] 17 Jul, 2019 Essential hypertension I10 ; Type 2 diabetes mellitus without complication E11.9 and Other iron deficiency anemia D50.8 [place] [address] [facility] [id number] [address] [place] [phone] Jul, [place] [address] [place] [id number] [address] [place] [phone] May, [place] [address] [place] [id number] [address] [place] [phone] Apr, Tobacco abuse Z72.0 ; Hypert ension, benign I10 and Tobacco abuse counseling Z71.6 [place] [address] [facility] [id number] [address] [place] [phone] Sep, [place] [address] [facility] [id number] [address] [place] [phone] Sep, [place] [address] [place] [id number] [address] [place] [phone] Sep, Essential hypertension I10 [place] [address] [place] [id number] [address] [place] [phone] Sep, [place] [address] [place] [id number] [address] [place] [phone] Sep, [facility] [address] [facility] [id number] [address] [place] [phone] Sep, Neck mass R22.1 [facility] [address] [facility] [id number] [address] [place] [phone] August, Neck mass R22.1 [facility] [address] [facility] [id number] [address] [place] [address] Feb, Left foot pain M79.672 [facility] [address] [facility] [id number] [address] [place] [phone] Jun, Chronic pain syndrome G89.4 [facility] [address] [place] [id number] [place] [id number] May, [facility] [address] [facility] [id number] [address] [place] [phone] May, [facility] [address] [facility] [id number] [address] [place] [phone] May, Chronic pain syndrome G89.4 [facility] [address] [facility] [id number] [address] [place] [phone] 13 May, 2017 [facility] [address] [facility] [id number] [address] [place] [phone] 10 May, 2017 Encounter for immunization Z 23 and Laceration of left index finger without foreign body without damage to nail, initial encounter S61.211A [facility] [address] [facility] [id number] [address] [place] [phone] 09 May, 2017 Chronic pain syndrome G89.4 [facility] [address] [facility] [id number] [address] [place] [phone] 07 May, 2017 [facility] [address] [facility] [id number] [address] [place] [phone] Apr, Cannabis abuse with physiolo gical dependence F12.10 ; Violation of controlled substance agreement Z91.14 and Opiate dependence, continuous F11.20 [facility] [address] [facility] [id number] [address] [place] [phone] Apr, Type 2 diabetes mellitus wit hout complication E11.9 [facility] [address] [facility] [id number] [address] [place] [phone] Apr, [facility] [address] [facility] [id number] [address] [place] [phone] Apr, Chronic pain syndrome G89.4 [facility] [address] [facility] [id number] [address] [place] [phone] Apr, Viral syndrome B34.9 [facility] [address] [facility] [id number] [address] [place] [phone] Apr, [facility] [address] [place] [id number] [address] [place] [phone] Mar, Chronic pain syndrome G89.4 [facility] [address] [place] [id number] [address] [place] [phone] Mar, [facility] [address] [place] [id number] [address] [place] [phone] Mar, [facility] [address] [place] [id number] [address] [place] [phone] Feb, Essential hypertension I10 ; Chronic pain syndrome G89.4 ; Hyperlipidemia, unspecified hyperlipidemia E78.5 ; 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 and Encounter for immunization Z23 [facility] [address] [facility] [id number] [address] [place] [phone] Feb, Chronic pain syndrome G89.4 [facility] [address] [facility] [id number] [address] [place] [phone] Jan, Chronic pain syndrome G89.4 [facility] [address] [facility] [id number] [address] [place] [phone] Jan, [facility] [address] [place] [id number] [address] [place] [phone] Jan, Bronchitis J40 ; Port cathet er in place Z95.828 and Chronic pain syndrome G89.4 [facility] [place] [address] [place] [id number] [place] [id number] Jan, [facility] [address] [id number] [address] [place] [phone] Dec, Chronic pain syndrome G89.4 [facility] [address] [id number] [address] [place] [phone] Dec, Chronic pain syndrome G89.4 [facility] [address] [id number] [address] [place] [phone] Dec, [facility] [address] [id number] [address] [place] [phone] Nov, [facility] [address] [id number] [address] [place] [phone] Nov, Chronic pain syndrome G89.4 [facility] [address] [id number] [address] [place] [phone] Oct, Chronic pain syndrome G89.4 [facility] [address] [id number] [address] [place] [phone] Oct, [facility] [address] [id number] [address] [place] [phone] Sep, Chronic pain syndrome G89.4 [facility] [address] [id number] [address] [place] [phone] Sep, Exacerbation of systemic lup us M32.9 [facility] [address] [id number] [address] [place] [phone] Sep, [facility] [address] [id number] [address] [place] [phone] Sep, [facility] [address] [id number] [address] [place] [phone] Sep, Nausea R11.0 [facility] [address] [place] [phone] August, Chronic pain syndrome G89.4 [place] [address] [place] [phone] August, [place] [address] [place] [id number] [address] [place] [phone] August, Chronic pain syndrome G89.4 [place] [address] [place] [id number] [address] [place] [phone] Jul, Pneumonia due to infectious organism, unspecified laterality, unspecified part of lung J18.9 and Tobacco abuse counseling Z71.6 [place] [address] [address] Jul, Chronic pain syndrome G89.4 [place] [address] [id number] Jun, Essential hypertension I10 [place] [address] [address] Jun, Pneumonia due to infectious organism, unspecified laterality, unspecified part of lung J18.9 [place] [address] [place] [id number] [address] [place] [phone] Jun, Chronic pain syndrome G89.4 [place] [address] [place] [id number] [address] [place] [phone] May, Essential hypertension I10 ; Type 2 [...] and Gastroesophageal reflux disease without esophagitis K21.9 [place] [id number] [place] [phone] Apr, [facility] [address] [facility] [id number] [address] [place] [phone] Apr, Pneumonia due to infectious organism, unspecified laterality, unspecified part of lung J18.9 and Nausea R11.0 [facility] [address] [facility] [id number] [address] [place] [phone] Apr, Essential hypertension I10 ; Chronic pain syndrome G89.4 ; Type 2 diabetes mellitus without complication E11.9 ; Hyperlipidemia, unspecified hyperlipidemia E78.5 ; Major depressive disorder, recurrent episode, unspecified severity F33.9 ; Sciatica, unspecified laterality M54.30 ; Chronic obstructive pulmonary disease, unspecified COPD type J44.9 ; Pneumonia due to infectious organism, unspecified laterality, unspecified part of lung J18.9 and Nausea R11.0 [facility] WALK IN [facility] [address] [facility] [id number] [address] [place] [phone] Mar, [facility] [address] [facility] [id number] [address] [place] [phone] Mar, [facility] [address] [facility] [id number] [address] [place] [phone] Mar, [place] [address] [facility] [id number] [address] [place] [phone] Mar, Anxiety F41.9 and Major depr essive disorder, recurrent episode, unspecified severity F33.9 [facility] [address] [facility] [id number] [address] [place] [phone] Mar, [facility] [address] [facility] [id number] [address] [place] [phone] Mar, [place] [address] [facility] [id number] [address] [place] [phone] Mar, Generalized abdominal pain R 10.84 ; Acute cystitis with hematuria N30.01 and Essential hypertension I10 [facility] WALK IN [facility] [address] [facility] [id number] [address] [place] [phone] Mar, Sore throat J02.9 and Exacer bation of systemic lupus M32.9 [place] [address] [place] [phone] Feb, Type 2 diabetes mellitus wit hout [...] reflux disease, esophagitis presence not specified K21.9 [place] [address] [phone] Feb, [place] [address] [address] Jan, [facility] [place] [address] [address] Jan, Right arm pain M79.601 [address] of right wrist, initial encounter S66.911A [place] [address] [address] Jan, [facility] [place] [address] [address] 30 Dec, 2015 Generalized abdominal pain R 10.84 [place] [address] [place] [address] 23 Dec, 2015 Adenopathy R59.1 [place] [address] [phone] 19 Dec, 2016 Bronchitis J40 [place] [address] [address] 14 Dec, 2015 [place] [address] [address] Dec, Essential hypertension I10 [facility] [address] [place] [id number] [address] [place] [phone] Nov, [facility] [address] [place] [id number] [address] [place] [phone] Nov, [place] [address] [place] [id number] [address] [place] [phone] Nov, Essential hypertension I10 ; Hyperlipidemia, unspecified [...] Type 2 diabetes mellitus without complication E11.9 [place] [address] [address] Nov, [place] [address] [address] Oct, Type 2 diabetes mellitus wit hout complication E11.9 ; Essential hypertension I10 ; Other viral warts B07.8 ; [place] or callus L84 and Hyperlipidemia, unspecified hyperlipidemia E78.5 [place] [address] [place] [id number] [address] [place] [phone] Sep, [place] [address] [place] [id number] [address] [place] [phone] Sep, [place] [address] [place] [id number] [address] [place] [phone] Jun, [place] [address] [place] [id number] [address] [place] [phone] Jun, [place] [address] [id number] [address] [place] [phone] 16 May, 2015 [facility] [address] [id number] [address] [place] [phone] Apr, [facility] [address] [id number] [address] [place] [phone] Feb, [facility] [address] [id number] [address] [place] [id number] Feb, COPD exacerbation J44.1 and Acute upper respiratory infection J06.9 [facility] [address] [id number] [address] [place] [phone] Feb, [facility] [address] [id number] [address] [place] [phone] Feb, [facility] [address] [facility] [id number] [address] [place] [phone] Feb, [facility] [address] [id number] [address] [place] [phone] Feb, [facility] [address] [id number] [address] [place] [address] Jan, Left hip pain M25.552 [facility] [address] [facility] [id number] [address] [place] [address] Jan, Essential hypertension I10 ; Chronic pain syndrome G89.4 ; Type 2 diabetes mellitus without complication E11.9 and Hyperlipidemia, unspecified hyperlipidemia E78.5 [facility] [address] [id number] [address] [place] [id number] 28 Jul, 2014 [facility] [address] [facility] [id number] [address] [place] [id number] 14 Jul, 2014 [facility] [address] [facility] [id number] [address] [place] [phone] Jul, [facility] [address] [facility] [id number] [address] [place] [phone] Jun, [facility] [address] [id number] [address] [place] [address], [place] [address] Jun, [facility] [address] [id number] [address] [place] [address], [place] [address] Jun, [facility] [address] [id number] [address] [place] [address], [place] [address] Jun, [facility] [address] [id number] [address] [place] [address], [place] [address] Jun, [facility] [address] [id number] [address] [place] [address], [place] [address] Jun, [facility] [address] [id number] [address] [place] [address], [place] [address] Jun, [facility] [address] [id number] [address] [place] [address], [place] [address] Jun, [facility] [address] [id number] [address] [place] [address], [place] [address] Jun, [facility] [address] [id number] [address] [place] [address], [place] [address] Jun, [facility] [address] [id number] [address] [place] [address], [place] [address] Jun, [facility] [address] [id number] [address] [place] [address], [place] [address] Jun, [facility] [address] [id number] [address] [place] [address], [place] [address] Apr, [facility] [address] [id number] [address] [place] [address], [place] [address] Apr, [facility] [address] [id number] [address] [place] [address], [place] [address] Apr, [facility] [address] [id number] [address] [place] [address], [place] [address] Apr, [facility] [address] [id number] [address] [place] [address], [place] [address] Apr, [facility] [address] [id number] [address] [place] [address], [place] [address] Apr, [facility] [address] [id number] [address] [place] [address], [place] [address] Apr, [facility] [address] [id number] [address] [place] [address], [place] [address] Apr, [facility] [address] [id number] [address] [place] [address], [place] [address] Mar, [facility] [address] [id number] [address] [place] [address], [place] [address] Mar, [facility] [address] [id number] [address] [place] [address], [place] [address] Mar, [facility] [address] [id number] [address] [place] [address], [place] [address] Mar, [facility] [address] [id number] [address] [place] [address], [place] [address] Mar, [facility] [address] [id number] [address] [place] [address], [place] [address] Mar, [facility] [address] [id number] [address] [place] [address], [place] [address] 15 Mar, 2014 [facility] [address] [id number] [address] [place] [address], [place] [address] Mar, [facility] [address] [id number] [address] [place] [address], [place] [address] Mar, [facility] [address] [id number] [address] [place] [address], [place] [address] 08 Mar, 2014 [facility] [address] [id number] [address] [place] [address], [place] [address] Mar, [facility] [address] [id number] [address] [place] [address], [place] [address] 05 Mar, 2014 [facility] [address] [id number] [address] [place] [address], [place] [address] Mar, [facility] [address] [id number] [address] [place] [address], [place] [address] Feb, [facility] [address] [id number] [address] [place] [address], [place] [address] Feb, [facility] [address] [id number] [address] [place] [address], [place] [address] Feb, [facility] [address] [id number] [address] [place] [address], [place] [address] Feb, [facility] [address] [id number] [address] [place] [address], [place] [address] Feb, [facility] [address] [id number] [address] [place] [address], [place] [address] Feb, [facility] [address] [id number] [address] [place] [address], [place] [address] Feb, [facility] [address] [id number] [address] [place] [address], [place] [address] Feb, [facility] [address] [id number] [address] [place] [address], [place] [address] Jan, [facility] [address] [id number] [address] [place] [address], [place] [address] Jan, [facility] [address] [id number] [address] [place] [address], [place] [address] Jan, [facility] [address] [id number] [address] [place] [address], [place] [address] Jan, [facility] [address] [id number] [address] [place] [address], [place] [address] Jan, [facility] [address] [id number] [address] [place] [address], [place] [address] Jan, [facility] [address] [id number] [address] [place] [address], [place] [address] Jan, [facility] [address] [id number] [address] [place] [address] [address] Jan, [facility] [address] [id number] [address] [place] [address], [place] [address] Jan, [facility] [address] [id number] [address] [place] [address], [place] [address] 30 Dec, 2013 [facility] [address] [id number] [address] [place] [address], [place] [address] 30 Dec, 2013 [facility] [address] [id number] [address] [place] [address], [place] [address] 26 Dec, 2013 [facility] [address] [id number] [address] [place] [address], [place] [address] 26 Dec, 2013 [facility] [address] [id number] [address] [place] [address], [place] [address] 16 Dec, 2013 [facility] [address] [id number] [address] [place] [address], [place] [address] 16 Dec, 2013 [facility] [address] [id number] [address] [place] [address], [place] [address] 08 Dec, 2013 [facility] [address] [id number] [address] [place] [address], [place] [address] 08 Dec, 2013 [facility] [address] [id number] [address] [place] [address], [place] [address] Dec, [facility] [address] [id number] [address] [place] [address], [place] [address] Dec, [facility] [address] [id number] [address] [place] [address], [place] [address] Nov, [facility] [address] [id number] [address] [place] [address], [place] [address] Nov, [facility] [address] [id number] [address] [place] [address], [place] [address] Nov, [facility] [address] [id number] [address] [place] [address] Nov, [facility] [address] [id number] [address] [place] [address], [place] [address] Nov, [facility] [address] [id number] [address] [place] [address], [place] [address] Nov, [facility] [address] [id number] [address] [place] [address], [place] [address] Nov, [facility] [address] [id number] [address] [place] [address], [place] [address] Nov, [facility] [address] [id number] [address] [place] [address], [place] [address] Nov, [facility] [address] [id number] [address] [place] [address], [place] [address] Nov, [facility] [address] [id number] [address] [place] [address], [place] [address] Nov, [facility] [address] [id number] [address] [place] [address], [place] [address] Nov, [facility] [address] [id number] [address] [place] [address], [place] [address] Nov, [facility] [address] [id number] [address] [place] [address], [place] [address] Oct, [facility] [address] [id number] [address] [place] [address], [place] [address] Oct, [facility] [address] [id number] [address] [place] [address], [place] [address] Oct, [facility] [address] [id number] [address] [place] [address], [place] [address] Oct, [facility] [address] [id number] [address] [place] [address], [place] [address] Oct, [facility] [address] [id number] [address] [place] [address], [place] [address] Oct, [facility] [address] [id number] [facility] [place] [address] Sep, [facility] [address] [id number] [facility] [place] [address] Sep, [facility] [address] [id number] [facility] [place] [address] Sep, [facility] [address] [id number] [facility] [place] [address] Sep, [facility] [address] [id number] [address] [place] [address], [place] [address] Sep, [facility] [address] [id number] [address] [place] [address], [place] [address] Sep, [facility] [address] [id number] [address] [place] [address], [place] [address] Sep, [facility] [address] [id number] [address] [place] [address], [place] [address] Sep, [facility] [address] [id number] [address] [place] [address], [place] [address] Sep, [facility] [address] [id number] [address] [place] [address], [place] [address] Sep, [facility] [address] [id number] [address] [place] [address], [place] [address] Sep, [facility] [address] [id number] [address] [place] [address], [place] [address] Sep, [facility] [address] [id number] [address] [place] [address], [place] [address] August, [facility] [address] [id number] [address] [place] [address], [place] [address] August, [facility] [address] [id number] [address] [place] [address], [place] [address] Jul, [facility] [address] [id number] [address] [place] [address], [place] [address] 29 Jul, 2013 [facility] [address] [id number] [facility] [place] [address] Jul, [facility] [address] [id number] [facility] [place] [address] 24 Jul, 2013 [facility] [address] [id number] [address] [place] [address], [place] [address] Jul, [facility] [address] [id number] [address] [place] [address], [place] [address] Jul, [facility] [address] [id number] [address] [place] [address], [place] [address] Jul, [facility] [address] [id number] [address] [place] [address], [place] [address] 16 Jul, 2013 [facility] [address] [id number] [address] [place] [address], [place] [address] Jul, [facility] [address] [id number] [address] [place] [address], [place] [address] 15 Jul, 2013 [facility] [address] [id number] [address] [place] [address], [place] [address] 09 Jul, 2013 [facility] [address] [id number] [address] [place] [address], [place] [address] 31 Jun, 2013 [facility] [address] [id number] [address] [place] [address], [place] [address] 31 Jun, 2013 [facility] [address] [id number] [address] [place] [address], [place] [address] 28 Jun, 2013 [facility] [address] [id number] [address] [place] [address], [place] [address] 28 Jun, 2013 [facility] [address] [id number] [address] [place] [address], [place] [address] Jun, [facility] [address] [id number] [address] [place] [address], [place] [address] Jun, [facility] [address] [id number] [address] [place] [address], [place] [address] Jun, [facility] [address] [id number] [address] [place] [address], [place] [address] Jun, [facility] [address] [id number] [address] [place] [address], [place] [address] May, [facility] [address] [id number] [address] [place] [address], [place] [address] May, [facility] [address] [id number] [address] [place] [address], [place] [address] May, [facility] [address] [id number] [address] [place] [address], [place] [address] May, [facility] [address] [id number] [address] [place] [address], [place] [address] May, [facility] [address] [id number] [address] [place] [address], [place] [address] May, [facility] [address] [id number] [address] [place] [address], [place] [address] May, [facility] [address] [id number] [address] [place] [address], [place] [address] May, [facility] [address] [id number] [address] [place] [address], [place] [address] May, [facility] [address] [id number] [address] [place] [address], [place] [address] May, [facility] [address] [id number] [address] [place] [address], [place] [address] May, [facility] [address] [id number] [address] [place] [address], [place] [address] May, [facility] [address] [id number] [address] [place] [address], [place] [address] May, [facility] [address] [id number] [address] [place] [address], [place] [address] Apr, [facility] [address] [id number] [address] [place] [address], [place] [address] Apr, [facility] [address] [id number] [address] [place] [address], [place] [address] Apr, [facility] [address] [id number] [address] [place] [address], [place] [address] Apr, [facility] [address] [id number] [address] [place] [address], [place] [address] Apr, [facility] [address] [id number] [address] [place] [address], [place] [address] Apr, [facility] [address] [id number] [address] [place] [address], [place] [address] Apr, [facility] [address] [id number] [address] [place] [address], [place] [address] Apr, [facility] [address] [id number] [address] [place] [address], [place] [address] Apr, [facility] [address] [id number] [address] [place] [address], [place] [address] Apr, [facility] [address] [id number] [address] [place] [address], [place] [address] Apr, [facility] [address] [id number] [address] [place] [address], [place] [address] Apr, [facility] [address] [id number] [address] [place] [address], [place] [address] Apr, [facility] [address] [id number] [address] [place] [address], [place] [address] Apr, [facility] [address] [id number] [address] [place] [address], [place] [address] Apr, [facility] [address] [id number] [address] [place] [address], [place] [address] Mar, [facility] [address] [id number] [address] [place] [address], [place] [address] Mar, [facility] [address] [id number] [address] [place] [address], [place] [address] Mar, [facility] [address] [id number] [address] [place] [address], [place] [address] Mar, [facility] [address] [id number] [address] [place] [address], [place] [address] Mar, [facility] [address] [id number] [address] [place] [address], [place] [address] Mar, [facility] [address] [id number] [address] [place] [address], [place] [address] Mar, [facility] [address] [id number] [address] [place] [address], [place] [address] Mar, [facility] [address] [id number] [address] [place] [address], [place] [address] Mar, [facility] [address] [id number] [address] [place] [address], [place] [address] Mar, [facility] [address] [id number] [address] [place] [address], [place] [address] Mar, [facility] [address] [id number] [address] [place] [address], [place] [address] Mar, [facility] [address] [id number] [address] [place] [address], [place] [address] Feb, [facility] [address] [id number] [address] [place] [address], [place] [address] Feb, [facility] [address] [id number] [address] [place] [address], [place] [address] Feb, [facility] [address] [id number] [address] [place] [address], [place] [address] Feb, [facility] [address] [id number] [address] [place] [address], [place] [address] Feb, [facility] [address] [id number] [address] [place] [address], [place] [address] Feb, [facility] [address] [id number] [address] [place] [address], [place] [address] Feb, [facility] [address] [id number] [address] [place] [address], [place] [address] Feb, [facility] [address] [id number] [address] [place] [address], [place] [address] Jan, [facility] [address] [id number] [address] [place] [address], [place] [address] Jan, [facility] [address] [id number] [address] [place] [address], [place] [address] Jan, [facility] [address] [id number] [address] [place] [address], [place] [address] Jan, [facility] [address] [id number] [address] [place] [address], [place] [address] Jan, [facility] [address] [id number] [address] [place] [address], [place] [address] Jan, [facility] [address] [id number] [address] [place] [address], [place] [address] Jan, [facility] [address] [id number] [address] [place] [address], [place] [address] 27 Dec, 2012 [facility] [address] [id number] [address] [place] [address], [place] [address] 23 Dec, 2012 [facility] [address] [id number] [address] [place] [address], [place] [address] 23 Dec, 2012 [facility] [address] [id number] [address] [place] [address], [place] [address] 12 Dec, 2012 [facility] [address] [id number] [address] [place] [address], [place] [address] Dec, [facility] [address] [id number] [address] [place] [address] [place] [address] Nov, [facility] [address] [id number] [address] [place] [address], [place] [address] Nov, [facility] [address] [id number] [address] [place] [address], [place] [address] Nov, [facility] [address] [id number] [address] [place] [address], [place] [address] Nov, [facility] [address] [id number] [address] [place] [address], [place] [address] Nov, [facility] [address] [id number] [address] [place] [address], [place] [address] Nov, [facility] [address] [id number] [address] [place] [address], [place] [address] Nov, [facility] [address] [id number] [address] [place] [address], [place] [address] Oct, [facility] [address] [id number] [address] [place] [address], [place] [address] Oct, [facility] [address] [id number] [address] [place] [address], [place] [address] Oct, [facility] [address] [id number] [address] [place] [address], [place] [address] Oct, [facility] [address] [id number] [address] [place] [address], [place] [address] Oct, [facility] [address] [id number] [address] [place] [address], [place] [address] Oct, [facility] [address] [id number] [address] [place] [address], [place] [address] Oct, [facility] [address] [id number] [address] [place] [address], [place] [address] Oct, [facility] [address] [id number] [address] [place] [address], [place] [address] Sep, [facility] [address] [id number] [address] [place] [address], [place] [address] 14 Sep, 2012 [facility] [address] [id number] [address] [place] [address], [place] [address] 13 Sep, 2012 [facility] [address] [id number] [address] [place] [address], [place] [address] 12 Sep, 2012 [facility] [address] [id number] [address] [place] [address], [place] [address] 10 Sep, 2012 [facility] [address] [id number] [address] [place] [address], [place] [address] 06 Sep, 2012 [facility] [address] [id number] [address] [place] [address], [place] [address] August, [facility] [address] [id number] [address] [place] [address], [place] [address] August, [facility] [address] [id number] [address] [place] [address], [place] [address] August, [facility] [address] [id number] [address] [place] [address], [place] [address] August, [facility] [address] [id number] [address] [place] [address], [place] [address] August, [facility] [address] [id number] [address] [place] [address], [place] [address] Jul, [facility] [address] [id number] [address] [place] [address], [place] [address] Jul, [facility] [address] [id number] [address] [place] [address], [place] [address] 24 Jul, 2012 [facility] [address] [id number] [address] [place] [address], [place] [address] 15 Jul, 2012 [facility] [address] [id number] [address] [place] [address], [place] [address] 11 Jul, 2012 [facility] [address] [id number] [address] [place] [address], [place] [address] 05 Jul, 2012 [facility] [address] [id number] [address] [place] [address], [place] [address] 14 Jun, 2012 [facility] [address] [id number] [address] [place] [address], [place] [address] 13 Jun, 2012 [facility] [address] [id number] [address] [place] [address], [place] [address] 07 Jun, 2012 [facility] [address] [id number] [address] [place] [address], [place] [address] 07 Jun, 2012 [facility] [address] [id number] [address] [place] [address], [place] [address] 05 Jun, 2012 [facility] [address] [id number] [address] [place] [address], [place] [address] 19 May, 2012 [facility] [address] [id number] [address] [place] [address], [place] [address] 13 May, 2012 [facility] [address] [id number] [address] [place] [address], [place] [address] May, [facility] [address] [id number] [address] [place] [address], [place] [address] Apr, [facility] [address] [id number] [address] [place] [address], [place] [address] Apr, [facility] [address] [id number] [address] [place] [address], [place] [address] Mar, [facility] [address] [id number] [address] [place] [address], [place] [address] Mar, [facility] [address] [id number] [address] [place] [address], [place] [address] Mar, [facility] [address] [id number] [address] [place] [address], [place] [address] Mar, [facility] [address] [id number] [address] [place] [address], [place] [address] Mar, [facility] [address] [id number] [address] [place] [address], [place] [address] 13 Mar, 2012 [facility] [address] [id number] [address] [place] [address], [place] [address] Feb, [facility] [address] [id number] [address] [place] [address], [place] [address] Feb, [facility] [address] [id number] [address] [place] [address], [place] [address] Feb, [facility] [address] [id number] [address] [place] [address], [place] [address] Jan, [facility] [address] [id number] [address] [place] [address], [place] [address] 29 Jan, 2012 [facility] [address] [id number] [address] [place] [address], [place] [address] Jan, [facility] [address] [id number] [address] [place] [address], [place] [address] 24 Jan, 2012 [facility] [address] [id number] [address] [place] [address], [place] [address] 24 Jan, 2012 [facility] [address] [id number] [address] [place] [address], [place] [address] 17 Jan, 2012 [facility] [address] [id number] [address] [place] [address], [place] [address] 17 Jan, 2012 [facility] [address] [id number] [address] [place] [address], [place] [address] 16 Jan, 2012 [facility] [address] [id number] [address] [place] [address], [place] [address] 16 Jan, 2012 [facility] [address] [id number] [address] [place] [address], [place] [address] 18 Sep2011 [facility] [address] [id number] [address] [place] [address] [address] 13 Sep2011 [facility] [address] [id number] [address] [place] [address], [place] [address] Dec, [facility] [address] [id number] [address] [place] [address], [place] [address] Nov, [facility] [address] [id number] [address] [place] [address], [place] [address] Nov, [facility] [address] [id number] [address] [place] [address], [place] [address] Nov, [facility] [address] [id number] [address] [place] [address], [place] [address] Oct, [facility] [address] [id number] [address] [place] [address], [place] [address] Oct, [facility] [address] [id number] [address] [place] [address], [place] [address] Sep, [facility] [address] [id number] [address] [place] [address], [place] [address] Sep, [facility] [address] [id number] [address] [place] [address], [place] [address] Sep, [facility] [address] [id number] [address] [place] [address], [place] [address] Sep, [facility] [address] [id number] [address] [place] [address], [place] [address] Sep, [facility] [address] [id number] [address] [place] [address], [place] [address] August, [facility] [address] [id number] [address] [place] [address], [place] [address] August, [facility] [address] [id number] [address] [place] [address], [place] [address] August, [facility] [address] [id number] [address] [place] [address], [place] [address] August, [facility] [address] [id number] [address] [place] [address], [place] [address] August, [facility] [address] [id number] [address] [place] [address], [place] [address] 14 Aug, 2011 [facility] [facility] [address] [id number] [address] [place] [address], [place] [address] August, [facility] [address] [id number] [address] [place] [address], [place] [address] August, [facility] [address] [id number] [address] [place] [address], [place] [address] August, [facility] [address] [id number] [address] [place] [address], [place] [address] 27 Jul, 2011 [facility] [address] [id number] [address] [place] [address], [place] [address] 19 Jul, 2011 [facility] [address] [id number] [address] [place] [address], [place] [address] 10 Jul, 2011 [facility] [address] [id number] [address] [place] [address], [place] [address] 04 Jul, 2011 [facility] [address] [id number] [address] [place] [address], [place] [address] 27 Jun, 2011 [facility] [address] [id number] [address] [place] [address], [place] [address] 13 Jun, 2011 [facility] [address] [id number] [address] [place] [address], [place] [address] 13 Jun, 2011 [facility] [address] [id number] [address] [place] [address], [place] [address] 27 May, 2011 [facility] [address] [id number] [address] [place] [address], [place] [address] 24 May, 2011 [facility] [address] [id number] [address] [place] [address], [place] [address] 20 May, 2011 [facility] [address] [id number] [address] [place] [address], [place] [address] 16 May, 2011 [facility] [address] [id number] [address] [place] [address], [place] [address] 15 May, 2011 [facility] [address] [id number] [address] [place] [address], [place] [address] 14 May, 2011 [facility] [address] [id number] [address] [place] [address], [place] [address] 10 May, 2011 [facility] [address] [id number] [address] [place] [address], [place] [address] 09 May, 2011 [facility] [address] [id number] [address] [place] [address], [place] [address] May, [facility] [address] [id number] [address] [place] [address], [place] [address] Apr, [facility] [address] [id number] [address] [place] [address], [place] [address] Apr, [facility] [address] [id number] [address] [place] [address], [place] [address] Apr, [facility] [address] [id number] [address] [place] [address], [place] [address] Apr, [facility] [address] [id number] [address] [place] [address], [place] [address] Apr, [facility] [address] [id number] [address] [place] [address], [place] [address] Apr, [facility] [address] [id number] [address] [place] [address], [place] [address] Apr, [facility] [address] [id number] [address] [place] [address], [place] [address] Apr, [facility] [address] [id number] [address] [place] [address], [place] [address] Apr, [facility] [address] [id number] [address] [place] [address], [place] [address] Apr, [facility] [address] [id number] [address] [place] [address], [place] [address] Apr, [facility] [address] [id number] [address] [place] [phone] Mar, [facility] [address] [id number] [address] [place] [phone] Mar, [facility] [address] [id number] [address] [place] [phone] Mar, [facility] [address] [facility] [id number] [address] [place] [phone] Mar, [facility] [address] [facility] [id number] [address] [place] [phone] Feb, [facility] [address] [facility] [id number] [address] [place] [id number] Feb, [facility] [address] [facility] [id number] [address] [place] [phone] Jan, [facility] [address] [facility] [id number] [address] [place] [phone] Nov, IMMUNIZATIONS No Known Immunizations SOCIAL HISTORY [...] laser treatment for glaucoma Hospitalization History ED [place]- Right side and back pain related to fall, hurts to breathe (ED at 7 pm) 06/07/2017 Hospitalization History [facility] [place]- Anxiety ( went to ED at 1200) 06/07/2017 Hospitalization History COPD exacerbation - Gerald Pizano 2017 Hospitalization History Blood clot, port placement - Gerald Pizano 09/2017
--- OUTSIDE RECORDS SUMMARY | 2019-09-01 14:19 | XMS REPORT ---
Author Author Sophia SEGURA Organization [facility] Address [address] [place] [address] Care Team Providers Care Voice Data Communications Engineer Name Role Phone HERMINIA SEGURA Unavailable PROBLEMS Type Condition ICD9-CM Code [id number] Code Onset Dates Condition S tatus SNOMED Code Problem Generalized abdominal pain R10.84 Act sree 252116217 Problem Anxiety F41.9 Active 13811101 Problem Proteinuria R80.9 Active 76884192 Problem Hyperlipidemia, unspecified hyperlipidemia E78.5 Active 79634960 Problem Essential hypertension I10 Active 13022966 Problem Venous insufficiency I87.2 Active 88324448 Problem Type 2 diabetes mellitus without complication E11. 9 Active 50848025 Problem Pneumonia due to infectious organism, unspecified laterality, unspecified part of lung J18.9 Active 312 154848 Problem Major depressive disorder, recurrent episode, un specified severity F33.9 Active 59620747 Problem Acute cystitis with hematuria N30.01 Active 72462107 Problem Sciatica, unspecified laterality M54.30 Active 73669773 Problem Carpal tunnel syndrome, right upper limb G56.01 Active 72076943 Problem Chronic pain syndrome G89.4 Active 008906552 Problem Port catheter in place Z95.828 Active 796907073 Problem History of small bowel obstruction Z87.19 Active 311625750 Problem Chronic pancreatitis, unspecified pancreatitis type K86.1 Active 207954282 Problem Presence of IVC filter Z95.828 Active 074611064 Problem Vitamin D deficiency E55.9 Active 31978718 Problem Gastroesophageal reflux disease, esophagitis pre sence not specified K21.9 Active 484544646 Problem Exacerbation of systemic lupus M32.9 Active 56081567 Problem Hypothyroidism, unspecified type E03.9 Active 10190041 Problem Nausea R11.0 Active 522271548 Problem Gastroesophageal reflux disease without esophagitis K21.9 Active 003270836 Problem Tobacco abuse counseling Z71.6 Activ e 84342505 Problem Hypertension, benign I10 Active 98305484 Problem Chronic obstructive pulmonary disease, unspecified COPD ty pe J44.9 Active 23253308 Problem Other iron deficiency anemia D50.8 A ctive 96767057 Problem Obstructive sleep apnea G47.33 Active 70030574 Problem History of pulmonary embolism Z86.711 Active 781189577 Problem 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 A ctive 089571312 Problem Opiate dependence, continuous F11.20 Active 938253442 Problem Cannabis abuse with physiological dependence F12.1 0 Active 87562821 Problem Violation of controlled substance agreement Z91.14 Active 579120871 ALLERGIES No Information ENCOUNTERS Encounter Location Date Diagnosis [place] [address] [facility] [id number] [address] [place] [phone] August, Type 2 diabetes mellitus wit hout complication E11.9 [place] [address] [address] [place] [id number] [place] [id number] 17 Jul, 2019 Essential hypertension I10 ; Type 2 diabetes mellitus without complication E11.9 and Other iron deficiency anemia D50.8 [place] [address] [address] [facility] [id number] [address] [place] [phone] Jul, [place] [address] [address] [place] [id number] [address] [place] [phone] May, [place] [address] [address] [place] [id number] [address] [place] [address] Apr, Tobacco abuse Z72.0 ; Hypert ension, benign I10 and Tobacco abuse counseling Z71.6 [place] [address] [address] [facility] [id number] [address] [place] [phone] Sep, [place] [address] [address] [facility] [id number] [address] [place] [phone] Sep, [place] [address] [address] [place] [id number] [address] [place] [address] Sep, Essential hypertension I10 [place] [address] [address] [place] [id number] [address] [place] [phone] Sep, [place] [address] [place] [id number] [address] [place] [address] Sep, [facility] [address] [facility] [id number] [address] [place] [address] Sep, Neck mass R22.1 [facility] [address] [facility] [id number] [address] [place] [phone] August, Neck mass R22.1 [facility] [address] [facility] [id number] [address] [place] [address] Feb, Left foot pain M79.672 [facility] [address] [facility] [id number] [address] [place] [phone] Jun, Chronic pain syndrome G89.4 [facility] [id number] [place] [address] [id number] May, [facility] [address] [facility] [id number] [address] [place] [phone] May, [facility] [address] [facility] [id number] [address] [place] [address] May, Chronic pain syndrome G89.4 [facility] [address] [facility] [id number] [address] [place] [phone] 13 May, 2017 [facility] [address] [facility] [id number] [address] [place] [phone] 10 May, 2017 Encounter for immunization Z 23 and Laceration of left index finger without foreign body without damage to nail, initial encounter S61.211A [facility] [address] [facility] [id number] [address] [place] [address] 09 May, 2017 Chronic pain syndrome G89.4 [facility] [address] [facility] [id number] [address] [place] [phone] 07 May, 2017 [facility] [address] [facility] [id number] [address] [place] [address] Apr, Cannabis abuse with physiolo gical dependence F12.10 ; Violation of controlled substance agreement Z91.14 and Opiate dependence, continuous F11.20 [facility] [address] [facility] [id number] [address] [place] [address] Apr, Type 2 diabetes mellitus wit hout complication E11.9 [facility] [address] [facility] [id number] [address] [place] [address] Apr, [facility] [address] [facility] [id number] [address] [place] [address] Apr, Chronic pain syndrome G89.4 [facility] [address] [facility] [id number] [address] [place] [phone] Apr, Viral syndrome B34.9 [facility] [address] [facility] [id number] [address] [place] [address] Apr, [facility] [address] [place] [id number] [address] [place] [address] Mar, Chronic pain syndrome G89.4 [facility] [address] [place] [id number] [address] [place] [address] Mar, [facility] [address] [place] [id number] [address] [place] [address] Mar, [facility] [address] [place] [id number] [address] [place] [address] Feb, Essential hypertension I10 ; Chronic pain syndrome G89.4 ; Hyperlipidemia, unspecified hyperlipidemia E78.5 ; 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 and Encounter for immunization Z23 [facility] [address] [facility] [id number] [address] [place] [phone] Feb, Chronic pain syndrome G89.4 [facility] [address] [facility] [id number] [address] [place] [address] Jan, Chronic pain syndrome G89.4 [facility] [address] [facility] [id number] [address] [place] [phone] Jan, [facility] [address] [place] [id number] [address] [place] [phone] Jan, Bronchitis J40 ; Port cathet er in place Z95.828 and Chronic pain syndrome G89.4 [facility] [id number] [place] [address] [id number] Jan, [facility] [address] [id number] [address] [place] [address] Dec, Chronic pain syndrome G89.4 [facility] [address] [id number] [address] [place] [address] Dec, Chronic pain syndrome G89.4 [facility] [address] [id number] [address] [place] [phone] Dec, [facility] [address] [id number] [address] [place] [address] Nov, [facility] [address] [id number] [address] [place] [address] Nov, Chronic pain syndrome G89.4 [facility] [address] [id number] [address] [place] [address] Oct, Chronic pain syndrome G89.4 [facility] [address] [id number] [address] [place] [address] Oct, [facility] [address] [id number] [address] [place] [address] Sep, Chronic pain syndrome G89.4 [facility] [address] [id number] [address] [place] [address] Sep, Exacerbation of systemic lup us M32.9 [facility] [address] [id number] [address] [place] [address] Sep, [facility] [address] [id number] [address] [place] [address] Sep, [facility] [address] [id number] [address] [place] [address] Sep, Nausea R11.0 [facility] [id number] [place] [address] August, Chronic pain syndrome G89.4 [place] [id number] [place] [address] August, [place] [address] [place] [id number] [address] [place] [address] August, Chronic pain syndrome G89.4 [place] [address] [address] [place] [id number] [address] [place] [address] Jul, Pneumonia due to infectious organism, unspecified laterality, unspecified part of lung J18.9 and Tobacco abuse counseling Z71.6 [place] [address] [address] Jul, Chronic pain syndrome G89.4 [place] [address] [address] Jun, Essential hypertension I10 [place] [address] [address] Jun, Pneumonia due to infectious organism, unspecified laterality, unspecified part of lung J18.9 [place] [address] [address] [place] [id number] [address] [place] [address] Jun, Chronic pain syndrome G89.4 [place] [address] [place] [id number] [address] [place] [address] May, Essential hypertension I10 ; Type 2 [...] and Gastroesophageal reflux disease without esophagitis K21.9 [place] [id number] [address] [place] [address] Apr, [facility] [address] [facility] [id number] [address] [place] [address] Apr, Pneumonia due to infectious organism, unspecified laterality, unspecified part of lung J18.9 and Nausea R11.0 [facility] [address] [facility] [id number] [address] [place] [address] Apr, Essential hypertension I10 ; Chronic pain syndrome G89.4 ; Type 2 diabetes mellitus without complication E11.9 ; Hyperlipidemia, unspecified hyperlipidemia E78.5 ; Major depressive disorder, recurrent episode, unspecified severity F33.9 ; Sciatica, unspecified laterality M54.30 ; Chronic obstructive pulmonary disease, unspecified COPD type J44.9 ; Pneumonia due to infectious organism, unspecified laterality, unspecified part of lung J18.9 and Nausea R11.0 [facility] [address] [facility] [id number] [address] [place] [address] Mar, [facility] [address] [facility] [id number] [address] [place] [phone] Mar, [facility] [address] [facility] [id number] [address] [place] [phone] Mar, [place] [address] [address] [facility] [id number] [address] [place] [address] Mar, Anxiety F41.9 and Major depr essive disorder, recurrent episode, unspecified severity F33.9 [facility] [address] [facility] [id number] [address] [place] [phone] Mar, [facility] [address] [facility] [id number] [address] [place] [phone] Mar, [place] [address] [address] [facility] [id number] [address] [place] [address] Mar, Generalized abdominal pain R 10.84 ; Acute cystitis with hematuria N30.01 and Essential hypertension I10 [facility] [address] [facility] [id number] [address] [place] [address] Mar, Sore throat J02.9 and Exacer bation of systemic lupus M32.9 [place] [id number] [place] [address] Feb, Type 2 diabetes mellitus wit hout [...] reflux disease, esophagitis presence not specified K21.9 [place] [address] [address] Feb, [place] [address] [address] Jan, [facility] [place] [address] [address] Jan, Right arm pain M79.601 [address] train of right wrist, initial encounter S66.911A [place] [address] [address] Jan, [facility] [place] [address] [address] 30 Dec, 2015 Generalized abdominal pain R 10.84 [place] [id number] [place] [address] 23 Dec, 2015 Adenopathy R59.1 [place] [address] [address] 19 Dec, 2016 Bronchitis J40 [place] [address] [address] 14 Dec, 2015 [place] [address] [address] Dec, Essential hypertension I10 [facility] [address] [place] [id number] [address] [place] [address] Nov, [facility] [address] [place] [id number] [address] [place] [address] Nov, [place] [address] [place] [id number] [address] [place] [address] Nov, Essential hypertension I10 ; Hyperlipidemia, unspecified [...] Type 2 diabetes mellitus without complication E11.9 [place] [address] [address] Nov, [place] [address] [address] Oct, Type 2 diabetes mellitus wit hout complication E11.9 ; Essential hypertension I10 ; Other viral warts B07.8 ; [place] or callus L84 and Hyperlipidemia, unspecified hyperlipidemia E78.5 [place] [address] [place] [id number] [address] [place] [address] Sep, [place] [address] [place] [id number] [address] [place] [address] Sep, [place] [address] [place] [id number] [address] [place] [address] Jun, [place] [address] [place] [id number] [address] [place] [address] Jun, [place] [address] [id number] [address] [place] [address] 16 May, 2015 [facility] [address] [id number] [address] [place] [address] Apr, [facility] [address] [id number] [address] [place] [address] Feb, [facility] [address] [id number] [address] [place] [address] Feb, COPD exacerbation J44.1 and Acute upper respiratory infection J06.9 [facility] [address] [id number] [address] [place] [address] Feb, [facility] [address] [id number] [address] [place] [address] Feb, [facility] [address] [facility] [id number] [address] [place] [address] Feb, [facility] [address] [id number] [address] [place] [address] Feb, [facility] [address] [id number] [address] [place] [address] Jan, Left hip pain M25.552 [facility] [address] [facility] [id number] [address] [place] [address] Jan, Essential hypertension I10 ; Chronic pain syndrome G89.4 ; Type 2 diabetes mellitus without complication E11.9 and Hyperlipidemia, unspecified hyperlipidemia E78.5 [facility] [address] [id number] [address] [place] [address] 28 Jul, 2014 [facility] [address] [facility] [id number] [address] [place] [address] 14 Jul, 2014 [facility] [address] [facility] [id number] [address] [place] [address] Jul, [facility] [address] [facility] [id number] [address] [place] [address] Jun, [facility] [address] [id number] [address] [place] [address], [place] [id number] Jun, [facility] [address] [id number] [address] [place] [address], [place] [id number] Jun, [facility] [address] [id number] [address] [place] [address], [place] [id number] Jun, [facility] [address] [id number] [address] [place] [address], [place] [id number] Jun, [facility] [address] [id number] [address] [place] [address], [place] [id number] Jun, [facility] [address] [id number] [address] [place] [address], [place] [id number] Jun, [facility] [address] [id number] [address] [place] [address], [place] [id number] Jun, [facility] [address] [id number] [address] [place] [address], [place] [id number] Jun, [facility] [address] [id number] [address] [place] [address], [place] [id number] Jun, [facility] [address] [id number] [address] [place] [address], [place] [id number] Jun, [facility] [address] [id number] [address] [place] [address], [place] [id number] Jun, [facility] [address] [id number] [address] [place] [address], [place] [id number] Apr, [facility] [address] [id number] [address] [place] [address], [place] [id number] Apr, [facility] [address] [id number] [address] [place] [address], [place] [id number] Apr, [facility] [address] [id number] [address] [place] [address], [place] [id number] Apr, [facility] [address] [id number] [address] [place] [address], [place] [id number] Apr, [facility] [address] [id number] [address] [place] [address], [place] [id number] Apr, [facility] [address] [id number] [address] [place] [address], [place] [id number] Apr, [facility] [address] [id number] [address] [place] [address], [place] [id number] Apr, [facility] [address] [id number] [address] [place] [address], [place] [id number] Mar, [facility] [address] [id number] [address] [place] [address], [place] [id number] Mar, [facility] [address] [id number] [address] [place] [address], [place] [id number] Mar, [facility] [address] [id number] [address] [place] [address], [place] [id number] Mar, [facility] [address] [id number] [address] [place] [address], [place] [id number] Mar, [facility] [address] [id number] [address] [place] [address], [place] [id number] Mar, [facility] [address] [id number] [address] [place] [address], [place] [id number] 15 Mar, 2014 [facility] [address] [id number] [address] [place] [address], [place] [id number] Mar, [facility] [address] [id number] [address] [place] [address], [place] [id number] Mar, [facility] [address] [id number] [address] [place] [address], [place] [id number] 08 Mar, 2014 [facility] [address] [id number] [address] [place] [address], [place] [id number] Mar, [facility] [address] [id number] [address] [place] [address], [place] [id number] 05 Mar, 2014 [facility] [address] [id number] [address] [place] [address], [place] [id number] Mar, [facility] [address] [id number] [address] [place] [address], [place] [id number] Feb, [facility] [address] [id number] [address] [place] [address], [place] [id number] Feb, [facility] [address] [id number] [address] [place] [address], [place] [id number] Feb, [facility] [address] [id number] [address] [place] [address], [place] [id number] Feb, [facility] [address] [id number] [address] [place] [address], [place] [id number] Feb, [facility] [address] [id number] [address] [place] [address], [place] [id number] Feb, [facility] [address] [id number] [address] [place] [address], [place] [id number] Feb, [facility] [address] [id number] [address] [place] [address], [place] [id number] Feb, [facility] [address] [id number] [address] [place] [address], [place] [id number] Jan, [facility] [address] [id number] [address] [place] [address], [place] [id number] Jan, [facility] [address] [id number] [address] [place] [address], [place] [id number] Jan, [facility] [facility] [address] [id number] [address] [place] [address], [place] [address] Jan, [facility] [address] [id number] [address] [place] [address], [place] [id number] Jan, [facility] [address] [id number] [address] [place] [address], [place] [address] Jan, [facility] [address] [id number] [address] [place] [address], [place] [id number] Jan, [facility] [address] [id number] [address] [place] [address], [place] [address] Jan, [facility] [address] [id number] [address] [place] [address], [place] [id number] Jan, [facility] [address] [id number] [address] [place] [address], [place] [id number] 30 Dec, 2013 [facility] [address] [id number] [address] [address], [place] [id number] 30 Dec, 2013 [facility] [address] [id number] [address] [place] [address], [place] [id number] 26 Dec, 2013 [facility] [address] [id number] [address] [place] [address], [place] [id number] 26 Dec, 2013 [facility] [address] [id number] [address] [place] [address], [place] [id number] 16 Dec, 2013 [facility] [address] [id number] [address] [place] [address], [place] [id number] 16 Dec, 2013 [facility] [address] [id number] [address] [place] [address], [place] [id number] 08 Dec, 2013 [facility] [address] [id number] [address] [place] [address], [place] [id number] 08 Dec, 2013 [facility] [address] [id number] [address] [place] [address], [place] [id number] Dec, [facility] [address] [id number] [address] [place] [address], [place] [address] Dec, [facility] [address] [id number] [address] [place] [address], [place] [id number] Nov, [facility] [address] [id number] [address] [place] [address], [place] [id number] Nov, [facility] [address] [id number] [address] [place] [address], [place] [address] Nov, [facility] [address] [id number] [address] [place] [id number] Nov, [facility] [address] [id number] [address] [place] [address], [place] [id number] Nov, [facility] [address] [id number] [address] [place] [address], [place] [address] Nov, [facility] [address] [id number] [address] [place] [address], [place] [id number] Nov, [facility] [address] [id number] [address] [place] [address], [place] [id number] Nov, [facility] [address] [id number] [address] [place] [address], [place] [address] Nov, [facility] [address] [id number] [address] [place] [address], [place] [id number] Nov, [facility] [address] [id number] [address] [place] [address], [place] [id number] Nov, [facility] [address] [id number] [address] [place] [address], [place] [id number] Nov, [facility] [address] [id number] [address] [place] [address], [place] [id number] Nov, [facility] [address] [id number] [address] [place] [address], [place] [id number] Oct, [facility] [address] [id number] [address] [place] [address], [place] [id number] Oct, [facility] [address] [id number] [address] [place] [address], [place] [id number] Oct, [facility] [address] [id number] [address] [place] [address], [place] [id number] Oct, [facility] [address] [id number] [address] [place] [address], [place] [id number] Oct, [facility] [address] [id number] [address] [place] [address], [place] [id number] Oct, [facility] [address] [id number] [facility] [id number] Sep, [facility] [address] [id number] [facility] [id number] Sep, [facility] [address] [id number] [facility] [address] Sep, [facility] [address] [id number] [facility] [address] Sep, [facility] [address] [id number] [address] [place] [address], [place] [id number] Sep, [facility] [address] [id number] [address] [place] [address], [place] [id number] Sep, [facility] [address] [id number] [address] [place] [address], [place] [id number] Sep, [facility] [address] [id number] [address] [place] [address], [place] [id number] Sep, [facility] [address] [id number] [address] [place] [address], [place] [id number] Sep, [facility] [address] [id number] [address] [place] [address], [place] [id number] Sep, [facility] [address] [id number] [address] [place] [address], [place] [id number] Sep, [facility] [address] [id number] [address] [place] [address], [place] [id number] Sep, [facility] [address] [id number] [address] [place] [address], [place] [address] August, [facility] [address] [id number] [address] [place] [address], [place] [id number] August, [facility] [address] [id number] [address] [place] [address], [place] [id number] Jul, [facility] [address] [id number] [address] [place] [address], [place] [id number] 29 Jul, 2013 [facility] [address] [id number] [facility] [address] Jul, [facility] [address] [id number] [facility] [id number] 24 Jul, 2013 [facility] [address] [id number] [address] [place] [address], [place] [address] Jul, [facility] [address] [id number] [address] [place] [address], [place] [address] Jul, [facility] [address] [id number] [address] [place] [address], [place] [address] Jul, [facility] [address] [id number] [address] [place] [address], [place] [id number] 16 Jul, 2013 [facility] [address] [id number] [address] [place] [address], [place] [address] Jul, [facility] [address] [id number] [address] [place] [address], [place] [id number] 15 Jul, 2013 [facility] [address] [id number] [address] [place] [address], [place] [id number] 09 Jul, 2013 [facility] [address] [id number] [address] [place] [address], [place] [id number] 31 Jun, 2013 [facility] [address] [id number] [address] [place] [address], [place] [id number] 31 Jun, 2013 [facility] [address] [id number] [address] [place] [address], [place] [id number] 28 Jun, 2013 [facility] [address] [id number] [address] [place] [address], [place] [id number] 28 Jun, 2013 [facility] [address] [id number] [address] [place] [address], [place] [address] Jun, [facility] [address] [id number] [address] [place] [address], [place] [address] Jun, [facility] [address] [id number] [address] [place] [address], [place] [id number] Jun, [facility] [address] [id number] [address] [place] [address], [place] [id number] Jun, [facility] [address] [id number] [address] [place] [address], [place] [id number] May, [facility] [address] [id number] [address] [place] [address], [place] [id number] May, [facility] [address] [id number] [address] [place] [address], [place] [address] May, [facility] [address] [id number] [address] [place] [address], [place] [id number] May, [facility] [address] [id number] [address] [place] [address], [place] [id number] May, [facility] [address] [id number] [address] [place] [address], [place] [address] May, [facility] [address] [id number] [address] [place] [address], [place] [id number] May, [facility] [address] [id number] [address] [place] [address], [place] [address] May, [facility] [address] [id number] [address] [place] [address], [place] [address] May, [facility] [address] [id number] [address] [place] [address], [place] [address] May, [facility] [address] [id number] [address] [place] [address], [place] [id number] May, [facility] [address] [id number] [address] [place] [address], [place] [address] May, [facility] [address] [id number] [address] [place] [address], [place] [id number] May, [facility] [address] [id number] [address] [place] [address], [place] [address] Apr, [facility] [address] [id number] [address] [place] [address], [place] [address] Apr, [facility] [address] [id number] [address] [place] [address], [place] [address] Apr, [facility] [address] [id number] [address] [place] [address], [place] [id number] Apr, [facility] [address] [id number] [address] [place] [address], [place] [id number] Apr, [facility] [address] [id number] [address] [place] [address], [place] [address] Apr, [facility] [address] [id number] [address] [place] [address], [place] [address] Apr, [facility] [address] [id number] [address] [place] [address], [place] [id number] Apr, [facility] [address] [id number] [address] [place] [address], [place] [address] Apr, [facility] [address] [id number] [address] [place] [address], [place] [address] Apr, [facility] [address] [id number] [address] [place] [address], [place] [id number] Apr, [facility] [address] [id number] [address] [place] [address], [place] [id number] Apr, [facility] [address] [id number] [address] [place] [address], [place] [id number] Apr, [facility] [address] [id number] [address] [place] [address], [place] [address] Apr, [facility] [address] [id number] [address] [place] [address], [place] [id number] Apr, [facility] [address] [id number] [address] [place] [address], [place] [id number] Mar, [facility] [address] [id number] [address] [place] [address], [place] [id number] Mar, [facility] [address] [id number] [address] [place] [address], [place] [id number] Mar, [facility] [address] [id number] [address] [place] [address], [place] [id number] Mar, [facility] [address] [id number] [address] [place] [address], [place] [id number] Mar, [facility] [address] [id number] [address] [place] [address], [place] [id number] Mar, [facility] [address] [id number] [address] [place] [address], [place] [id number] Mar, [facility] [address] [id number] [address] [place] [address], [place] [id number] Mar, [facility] [address] [id number] [address] [place] [address], [place] [address] Mar, [facility] [address] [id number] [address] [place] [address], [place] [id number] Mar, [facility] [address] [id number] [address] [place] [address], [place] [id number] Mar, [facility] [address] [id number] [address] [place] [address], [place] [id number] Mar, [facility] [address] [id number] [address] [place] [address], [place] [id number] Feb, [facility] [address] [id number] [address] [place] [address], [place] [id number] Feb, [facility] [address] [id number] [address] [place] [address], [place] [id number] Feb, [facility] [address] [id number] [address] [place] [address], [place] [address] Feb, [facility] [address] [id number] [address] [place] [address], [place] [address] Feb, [facility] [address] [id number] [address] [place] [address], [place] [id number] Feb, [facility] [address] [id number] [address] [place] [address], [place] [id number] Feb, [facility] [address] [id number] [address] [place] [address], [place] [id number] Feb, [facility] [address] [id number] [address] [place] [address], [place] [id number] Jan, [facility] [address] [id number] [address] [place] [address], [place] [address] Jan, [facility] [address] [id number] [address] [place] [address], [place] [address] Jan, [facility] [address] [id number] [address] [place] [address], [place] [id number] Jan, [facility] [address] [id number] [address] [place] [address], [place] [id number] Jan, [facility] [address] [id number] [address] [place] [address], [place] [address] Jan, [facility] [address] [id number] [address] [place] [address], [place] [address] Jan, [facility] [address] [id number] [address] [place] [address], [place] [id number] 27 Dec, 2012 [facility] [address] [id number] [address] [place] [address], [place] [id number] 23 Dec, 2012 [facility] [address] [id number] [address] [place] [address], [place] [address] 23 Dec, 2012 [facility] [address] [id number] [address] [place] [address], [place] [id number] 12 Dec, 2012 [facility] [address] [id number] [address] [place] [address], [place] [address] Dec, [facility] [address] [id number] [address] [place] [address] [place] [id number] Nov, [facility] [address] [id number] [address] [place] [address], [place] [id number] Nov, [facility] [address] [id number] [address] [place] [address], [place] [address] Nov, [facility] [address] [id number] [address] [place] [address], [place] [id number] Nov, [facility] [address] [id number] [address] [place] [address], [place] [address] Nov, [facility] [address] [id number] [address] [place] [address], [place] [address] Nov, [facility] [address] [id number] [address] [place] [address], [place] [id number] Nov, [facility] [address] [id number] [address] [place] [address], [place] [id number] Oct, [facility] [address] [id number] [address] [place] [address], [place] [id number] Oct, [facility] [address] [id number] [address] [place] [address], [place] [id number] Oct, [facility] [address] [id number] [address] [place] [address], [place] [id number] Oct, [facility] [address] [id number] [address] [place] [address], [place] [address] Oct, [facility] [address] [id number] [address] [place] [address], [place] [id number] Oct, [facility] [address] [id number] [address] [address], [place] [address] Oct, [facility] [address] [id number] [address] [place] [address], [place] [id number] Oct, [facility] [address] [id number] [address] [place] [address], [place] [address] Sep, [facility] [address] [id number] [address] [place] [address], [place] [id number] 14 Sep, 2012 [facility] [address] [id number] [address] [place] [address], [place] [id number] 13 Sep, 2012 [facility] [address] [id number] [address] [place] [address], [place] [id number] 12 Sep, 2012 [facility] [address] [id number] [address] [address], [place] [id number] 10 Sep, 2012 [facility] [address] [id number] [address] [address], [place] [id number] 06 Sep, 2012 [facility] [address] [id number] [address] [address], [place] [id number] August, [facility] [address] [id number] [address] [place] [address], [place] [address] August, [facility] [address] [id number] [address] [place] [address], [place] [id number] August, [facility] [address] [id number] [address] [place] [address], [place] [id number] August, [facility] [address] [id number] [address] [place] [address], [place] [id number] August, [facility] [address] [id number] [address] [place] [address], [place] [id number] Jul, [facility] [address] [id number] [address] [place] [address], [place] [id number] Jul, [facility] [address] [id number] [address] [place] [address], [place] [id number] 24 Jul, 2012 [facility] [address] [id number] [address] [place] [address], [place] [id number] 15 Jul, 2012 [facility] [address] [id number] [address] [place] [address], [place] [id number] 11 Jul, 2012 [facility] [address] [id number] [address] [place] [address], [place] [id number] 05 Jul, 2012 [facility] [address] [id number] [address] [place] [address], [place] [id number] 14 Jun, 2012 [facility] [address] [id number] [address] [place] [address], [place] [id number] 13 Jun, 2012 [facility] [address] [id number] [address] [place] [address], [place] [id number] 07 Jun, 2012 [facility] [address] [id number] [address] [place] [address], [place] [id number] 07 Jun, 2012 [facility] [address] [id number] [address] [place] [address], [place] [id number] 05 Jun, 2012 [facility] [address] [id number] [address] [place] [address], [place] [id number] 19 May, 2012 [facility] [address] [id number] [address] [place] [address], [place] [id number] 13 May, 2012 [facility] [address] [id number] [address] [place] [address], [place] [id number] May, [facility] [address] [id number] [address] [place] [address], [place] [id number] Apr, [facility] [address] [id number] [address] [place] [address], [place] [id number] Apr, [facility] [address] [id number] [address] [place] [address], [place] [id number] Mar, [facility] [address] [id number] [address] [place] [address], [place] [id number] Mar, [facility] [address] [id number] [address] [place] [address], [place] [id number] Mar, [facility] [address] [id number] [address] [place] [address], [place] [id number] Mar, [facility] [address] [id number] [address] [place] [address], [place] [id number] Mar, [facility] [address] [id number] [address] [place] [address], [place] [id number] 13 Mar, 2012 [facility] [address] [id number] [address] [place] [address], [place] [id number] Feb, [facility] [address] [id number] [address] [place] [address], [place] [id number] Feb, [facility] [address] [id number] [address] [place] [address], [place] [id number] Feb, [facility] [address] [id number] [address] [place] [address], [place] [id number] Jan, [facility] [address] [id number] [address] [place] [address], [place] [id number] 29 Jan, 2012 [facility] [address] [id number] [address] [place] [address], [place] [id number] Jan, [facility] [address] [id number] [address] [place] [address], [place] [id number] 24 Jan, 2012 [facility] [address] [id number] [address] [place] [address], [place] [id number] 24 Jan, 2012 [facility] [address] [id number] [address] [place] [address], [place] [id number] 17 Jan, 2012 [facility] [address] [id number] [address] [place] [address], [place] [id number] 17 Jan, 2012 [facility] [address] [id number] [address] [place] [address], [place] [id number] 16 Jan, 2012 [facility] [address] [id number] [address] [place] [address], [place] [id number] 16 Jan, 2012 [facility] [address] [id number] [address] [place] [address], [place] [id number] 18 Sep2011 [facility] [address] [id number] [address] [place] [address], [place] [id number] 13 Sep2011 [facility] [address] [id number] [address] [place] [address], [place] [id number] Dec, [facility] [address] [id number] [address] [place] [address], [place] [id number] Nov, [facility] [address] [id number] [address] [place] [address], [place] [id number] Nov, [facility] [address] [id number] [address] [place] [address], [place] [id number] Nov, [facility] [address] [id number] [address] [address], [place] [id number] Oct, [facility] [address] [id number] [address] [place] [address], [place] [id number] Oct, [facility] [address] [id number] [address] [place] [address], [place] [id number] Sep, [facility] [address] [id number] [address] [place] [address], [place] [id number] Sep, [facility] [address] [id number] [address] [place] [address], [place] [id number] Sep, [facility] [address] [id number] [address] [place] [address], [place] [id number] Sep, [facility] [address] [id number] [address] [place] [address], [place] [id number] Sep, [facility] [address] [id number] [address] [place] [address], [place] [id number] August, [facility] [address] [id number] [address] [place] [address], [place] [id number] August, [facility] [address] [id number] [address] [place] [address], [place] [id number] August, [facility] [address] [id number] [address] [place] [address], [place] [id number] August, [facility] [address] [id number] [address] [place] [address], [place] [id number] August, [facility] [address] [id number] [address] [place] [address], [place] [id number] 14 Aug, 2011 [facility] [address] [id number] [address] [place] [address], [place] [id number] August, [facility] [address] [id number] [address] [place] [address], [place] [id number] August, [facility] [address] [id number] [address] [place] [address], [place] [id number] August, [facility] [address] [id number] [address] [place] [address], [place] [id number] 27 Jul, 2011 [facility] [address] [id number] [address] [place] [address], [place] [id number] 19 Jul, 2011 [facility] [address] [id number] [address] [place] [address], [place] [id number] 10 Jul, 2011 [facility] [address] [id number] [address] [address], [place] [id number] 04 Jul, 2011 [facility] [address] [id number] [address] [place] [address], [place] [id number] 27 Jun, 2011 [facility] [address] [id number] [address] [place] [address], [place] [id number] 13 Jun, 2011 [facility] [address] [id number] [address] [place] [address], [place] [id number] 13 Jun, 2011 [facility] [address] [id number] [address] [place] [address], [place] [id number] 27 May, 2011 [facility] [address] [id number] [address] [place] [address], [place] [id number] 24 May, 2011 [facility] [address] [id number] [address] [place] [address], [place] [id number] 20 May, 2011 [facility] [address] [id number] [address] [place] [address], [place] [id number] 16 May, 2011 [facility] [address] [id number] [address] [place] [address], [place] [id number] 15 May, 2011 [facility] [address] [id number] [address] [place] [address], [place] [id number] 14 May, 2011 [facility] [address] [id number] [address] [place] [address], [place] [id number] 10 May, 2011 [facility] [address] [id number] [address] [place] [address], [place] [id number] 09 May, 2011 [facility] [address] [id number] [address] [place] [address], [place] [id number] May, [facility] [address] [id number] [address] [place] [address], [place] [id number] Apr, [facility] [address] [id number] [address] [place] [address], [place] [id number] Apr, [facility] [address] [id number] [address] [place] [address], [place] [id number] Apr, [facility] [address] [id number] [address] [place] [address], [place] [id number] Apr, [facility] [address] [id number] [address] [place] [address], [place] [id number] Apr, [facility] [address] [id number] [address] [place] [address], [place] [id number] Apr, [facility] [address] [id number] [address] [place] [address], [place] [id number] Apr, [facility] [address] [id number] [address] [place] [address], [place] [id number] Apr, [facility] [address] [id number] [address] [place] [address], [place] [id number] Apr, [facility] [address] [id number] [address] [place] [address], [place] [id number] Apr, [facility] [address] [id number] [address] [place] [address], [place] [id number] Apr, [facility] [address] [id number] [address] [place] [id number] Mar, [facility] [address] [id number] [address] [place] [id number] Mar, [facility] [address] [id number] [address] [place] [phone] Mar, [facility] [address] [facility] [id number] [address] [place] [id number] Mar, [facility] [address] [facility] [id number] [address] [place] [id number] Feb, [facility] [address] [facility] [id number] [address] [place] [phone] Feb, [facility] [address] [facility] [id number] [address] [place] [phone] Jan, [facility] [address] [facility] [id number] [address] [place] [phone] Nov, IMMUNIZATIONS No Known Immunizations SOCIAL HISTORY [...] laser treatment for glaucoma Hospitalization History [facility] [place]- Right side and back pain related to fall, hurts to breathe (ED at 7 pm) 06/07/2017 Hospitalization History [facility] [place]- Anxiety ( went to ED at 1200) 06/07/2017 Hospitalization History COPD exacerbation - Gerald Pizano 2017 Hospitalization History Blood clot, port placement - Gerald Pizano 09/2017
--- OUTSIDE RECORDS SUMMARY | 2019-09-01 14:19 | XMS REPORT ---
Author Author Sophia SEGURA Organization [facility] Address [address] [place] [address] Care Team Providers Care American Sign Language Teacher Name Role Phone HERMINIA SEGURA Unavailable PROBLEMS Type Condition ICD9-CM Code AIN17-OH Code Onset Dates Condition S tatus SNOMED Code Problem Generalized abdominal pain R10.84 Act sree 465412761 Problem Anxiety F41.9 Active 21731224 Problem Proteinuria R80.9 Active 41938786 Problem Hyperlipidemia, unspecified hyperlipidemia E78.5 Active 64700095 Problem Essential hypertension I10 Active 24546569 Problem Venous insufficiency I87.2 Active 34214412 Problem Type 2 diabetes mellitus without complication E11. 9 Active 73081129 Problem Pneumonia due to infectious organism, unspecified laterality, unspecified part of lung J18.9 Active 312 772521 Problem Major depressive disorder, recurrent episode, un specified severity F33.9 Active 74023273 Problem Acute cystitis with hematuria N30.01 Active 95319317 Problem Sciatica, unspecified laterality M54.30 Active 89145902 Problem Carpal tunnel syndrome, right upper limb G56.01 Active 64158619 Problem Chronic pain syndrome G89.4 Active 848380693 Problem Port catheter in place Z95.828 Active 555339271 Problem History of small bowel obstruction Z87.19 Active 925033616 Problem Chronic pancreatitis, unspecified pancreatitis type K86.1 Active 473473303 Problem Presence of IVC filter Z95.828 Active 795922975 Problem Vitamin D deficiency E55.9 Active 73128800 Problem Gastroesophageal reflux disease, esophagitis pre sence not specified K21.9 Active 376668102 Problem Exacerbation of systemic lupus M32.9 Active 40384009 Problem Hypothyroidism, unspecified type E03.9 Active 98108276 Problem Nausea R11.0 Active 712794394 Problem Gastroesophageal reflux disease without esophagitis K21.9 Active 398144818 Problem Tobacco abuse counseling Z71.6 Activ e 12229459 Problem Hypertension, benign I10 Active 20382857 Problem Chronic obstructive pulmonary disease, unspecified COPD ty pe J44.9 Active 83012633 Problem Other iron deficiency anemia D50.8 A ctive 84903683 Problem Obstructive sleep apnea G47.33 Active 11528553 Problem History of pulmonary embolism Z86.711 Active 035670386 Problem 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 A ctive 949293453 Problem Opiate dependence, continuous F11.20 Active 224710319 Problem Cannabis abuse with physiological dependence F12.1 0 Active 69136303 Problem Violation of controlled substance agreement Z91.14 Active 415239698 ALLERGIES No Information ENCOUNTERS Encounter Location Date Diagnosis [place] [address] [facility] [id number] [address] [place] [address] August, Type 2 diabetes mellitus wit hout complication E11.9 [place] [address] [place] [id number] [place] [id number] 17 Jul, 2019 Essential hypertension I10 ; Type 2 diabetes mellitus without complication E11.9 and Other iron deficiency anemia D50.8 [place] [address] [facility] [id number] [address] [place] [address] Jul, [place] [address] [place] [id number] [address] [place] [address] May, [place] [address] [place] [id number] [address] [place] [address] Apr, Tobacco abuse Z72.0 ; Hypert ension, benign I10 and Tobacco abuse counseling Z71.6 [place] [address] [facility] [id number] [address] [place] [address] Sep, [place] [address] [facility] [id number] [address] [place] [address] Sep, [place] [address] [place] [id number] [address] [place] [address] Sep, Essential hypertension I10 [place] [address] [place] [id number] [address] [place] [address] Sep, [place] [address] [place] [id number] [address] [place] [address] Sep, [facility] [address] [facility] [id number] [address] [place] [address] Sep, Neck mass R22.1 [facility] [address] [facility] [id number] [address] [place] [address] August, Neck mass R22.[address] [facility] [address] [facility] [id number] [address] [place] [address] Feb, Left foot pain M79.672 [facility] [address] [facility] [id number] [address] [place] [address] Jun, Chronic pain syndrome G89.4 [facility] [address] [place] [id number] [place] [id number] May, [facility] [address] [facility] [id number] [address] [place] [address] May, [facility] [address] [facility] [id number] [address] [place] [address] May, Chronic pain syndrome G89.4 [facility] [address] [facility] [id number] [address] [place] [phone] 13 May, 2017 [facility] [address] [facility] [id number] [address] [place] [address] 10 May, 2017 Encounter for immunization Z 23 and Laceration of left index finger without foreign body without damage to nail, initial encounter S61.211A [facility] [address] [facility] [id number] [address] [place] [address] 09 May, 2017 Chronic pain syndrome G89.4 [facility] [address] [facility] [id number] [address] [place] [address] 07 May, 2017 [facility] [address] [facility] [id number] [address] [place] [address] Apr, Cannabis abuse with physiolo gical dependence F12.10 ; Violation of controlled substance agreement Z91.14 and Opiate dependence, continuous F11.20 [facility] [address] [facility] [id number] [address] [place] [address] Apr, Type 2 diabetes mellitus wit hout complication E11.9 [facility] [address] [facility] [id number] [address] [place] [address] Apr, [facility] [address] [facility] [id number] [address] [place] [address] Apr, Chronic pain syndrome G89.4 [facility] [address] [facility] [id number] [address] [place] [address] Apr, Viral syndrome B34.9 [facility] [address] [facility] [id number] [address] [place] [address] Apr, [facility] [address] [place] [id number] [address] [place] [address] Mar, Chronic pain syndrome G89.4 [facility] [address] [place] [id number] [address] [place] [address] Mar, [facility] [address] [place] [id number] [address] [place] [phone] Mar, [facility] [address] [place] [id number] [address] [place] [address] Feb, Essential hypertension I10 ; Chronic pain syndrome G89.4 ; Hyperlipidemia, unspecified hyperlipidemia E78.5 ; 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 and Encounter for immunization Z23 [facility] [address] [facility] [id number] [address] [place] [address] Feb, Chronic pain syndrome G89.4 [facility] [address] [facility] [id number] [address] [place] [address] Jan, Chronic pain syndrome G89.4 [facility] [address] [facility] [id number] [address] [place] [address] Jan, [facility] [address] [place] [id number] [address] [place] [address] Jan, Bronchitis J40 ; Port cathet er in place Z95.828 and Chronic pain syndrome G89.4 [facility] [address] [place] [id number] [place] [address] [id number] Jan, [facility] [address] [id number] [address] [place] [address] Dec, Chronic pain syndrome G89.4 [facility] [address] [id number] [address] [place] [address] Dec, Chronic pain syndrome G89.4 [facility] [address] [id number] [address] [place] [id number] Dec, [facility] [address] [id number] [address] [place] [address] Nov, [facility] [address] [id number] [address] [place] [address] Nov, Chronic pain syndrome G89.4 [facility] [address] [id number] [address] [place] [address] Oct, Chronic pain syndrome G89.4 [facility] [address] [id number] [address] [place] [id number] Oct, [facility] [address] [id number] [address] [place] [address] Sep, Chronic pain syndrome G89.4 [facility] [address] [id number] [address] [place] [address] Sep, Exacerbation of systemic lup us M32.9 [facility] [address] [id number] [address] [place] [address] Sep, [facility] [address] [id number] [address] [place] [address] Sep, [facility] [address] [id number] [address] [place] [address] Sep, Nausea R11.0 [facility] [address] [place] [address] August, Chronic pain syndrome G89.4 [place] [address] [place] [address] August, [place] [address] [place] [id number] [address] [place] [address] August, Chronic pain syndrome G89.4 [place] [address] [place] [id number] [address] [place] [address] Jul, Pneumonia due to infectious organism, unspecified laterality, unspecified part of lung J18.9 and Tobacco abuse counseling Z71.6 [place] [address] [id number] Jul, Chronic pain syndrome G89.4 [place] [address] [id number] Jun, Essential hypertension I10 [place] [address] [address] Jun, Pneumonia due to infectious organism, unspecified laterality, unspecified part of lung J18.9 [place] [address] [place] [id number] [address] [place] [address] Jun, Chronic pain syndrome G89.4 [place] [address] [place] [id number] [address] [place] [address] May, Essential hypertension I10 ; Type 2 [...] and Gastroesophageal reflux disease without esophagitis K21.9 [place] [id number] [address] [place] [address] Apr, [facility] [address] [facility] [id number] [address] [place] [address] Apr, Pneumonia due to infectious organism, unspecified laterality, unspecified part of lung J18.9 and Nausea R11.0 [facility] [address] [facility] [id number] [address] [place] [address] Apr, Essential hypertension I10 ; Chronic pain syndrome G89.4 ; Type 2 diabetes mellitus without complication E11.9 ; Hyperlipidemia, unspecified hyperlipidemia E78.5 ; Major depressive disorder, recurrent episode, unspecified severity F33.9 ; Sciatica, unspecified laterality M54.30 ; Chronic obstructive pulmonary disease, unspecified COPD type J44.9 ; Pneumonia due to infectious organism, unspecified laterality, unspecified part of lung J18.9 and Nausea R11.0 [facility] [address] [facility] [id number] [address] [place] [address] Mar, [facility] [address] [facility] [id number] [address] [place] [address] Mar, [facility] [address] [facility] [id number] [address] [place] [address] Mar, [place] [address] [facility] [id number] [address] [place] [address] Mar, Anxiety F41.9 and Major depr essive disorder, recurrent episode, unspecified severity F33.9 [facility] [address] [facility] [id number] [address] [place] [address] Mar, [facility] [address] [facility] [id number] [address] [place] [address] Mar, [place] [address] [facility] [id number] [address] [place] [address] Mar, Generalized abdominal pain R 10.84 ; Acute cystitis with hematuria N30.01 and Essential hypertension I10 [facility] [address] [facility] [id number] [address] [place] [address] Mar, Sore throat J02.9 and Exacer bation of systemic lupus M32.9 [place] [address] [place] [address] Feb, Type 2 diabetes mellitus wit hout [...] reflux disease, esophagitis presence not specified K21.9 [place] [address] [address] Feb, [place] [address] [address] Jan, [facility] [place] [address] [address] Jan, Right arm pain M79.601 [address] of right wrist, initial encounter S66.911A [place] [address] [address] Jan, [facility] [place] [address] [address] 30 Dec, 2015 Generalized abdominal pain R 10.84 [place] [address] [place] [address] 23 Dec, 2015 Adenopathy R59.1 [place] [address] [address] 19 Dec, 2016 Bronchitis J40 [place] [address] [address] 14 Dec, 2015 [place] [address] [address] Dec, Essential hypertension I10 [facility] [address] [place] [id number] [address] [place] [address] Nov, [facility] [address] [place] [id number] [address] [place] [address] Nov, [place] [address] [place] [id number] [address] [place] [address] Nov, Essential hypertension I10 ; Hyperlipidemia, unspecified [...] Type 2 diabetes mellitus without complication E11.9 [place] [address] [address] Nov, [place] [address] [address] Oct, Type 2 diabetes mellitus wit hout complication E11.9 ; Essential hypertension I10 ; Other viral warts B07.8 ; [place] or callus L84 and Hyperlipidemia, unspecified hyperlipidemia E78.5 [place] [address] [place] [id number] [address] [place] [address] Sep, [place] [address] [place] [id number] [address] [place] [address] Sep, [place] [address] [place] [id number] [address] [place] [address] Jun, [place] [address] [place] [id number] [address] [place] [address] Jun, [place] [address] [id number] [address] [place] [address] 16 May, 2015 [facility] [address] [id number] [address] [place] [address] Apr, [facility] [address] [id number] [address] [place] [address] Feb, [facility] [address] [id number] [address] [place] [address] Feb, COPD exacerbation J44.1 and Acute upper respiratory infection J06.9 [facility] [address] [id number] [address] [place] [address] Feb, [facility] [address] [id number] [address] [place] [address] Feb, [facility] [address] [facility] [id number] [address] [place] [address] Feb, [facility] [address] [id number] [address] [place] [address] Feb, [facility] [address] [id number] [address] [place] [address] Jan, Left hip pain M25.552 [facility] [address] [facility] [id number] [address] [place] [address] Jan, Essential hypertension I10 ; Chronic pain syndrome G89.4 ; Type 2 diabetes mellitus without complication E11.9 and Hyperlipidemia, unspecified hyperlipidemia E78.5 [facility] [address] [id number] [address] [place] [address] 28 Jul, 2014 [facility] [address] [facility] [id number] [address] [place] [address] 14 Jul, 2014 [facility] [address] [facility] [id number] [address] [place] [address] Jul, [facility] [address] [facility] [id number] [address] [place] [address] Jun, [facility] [address] [id number] [address] [place] [address], [place] [address] Jun, [facility] [address] [id number] [address] [place] [address], [place] [address] Jun, [facility] [address] [id number] [address] [place] [address], [place] [address] Jun, [facility] [address] [id number] [address] [place] [address], [place] [address] Jun, [facility] [address] [id number] [address] [place] [address], [place] [address] Jun, [facility] [address] [id number] [address] [place] [address], [place] [address] Jun, [facility] [address] [id number] [address] [place] [address], [place] [address] Jun, [facility] [address] [id number] [address] [place] [address], [place] [address] Jun, [facility] [address] [id number] [address] [place] [address], [place] [address] Jun, [facility] [address] [id number] [address] [place] [address], [place] [address] Jun, [facility] [address] [id number] [address] [place] [address], [place] [address] Jun, [facility] [address] [id number] [address] [place] [address], [place] [address] Apr, [facility] [address] [id number] [address] [place] [address], [place] [address] Apr, [facility] [address] [id number] [address] [place] [address], [place] [address] Apr, [facility] [address] [id number] [address] [place] [address], [place] [address] Apr, [facility] [address] [id number] [address] [place] [address], [place] [address] Apr, [facility] [address] [id number] [address] [place] [address], [place] [address] Apr, [facility] [address] [id number] [address] [place] [address], [place] [address] Apr, [facility] [address] [id number] [address] [place] [address], [place] [address] Apr, [facility] [address] [id number] [address] [place] [address], [place] [address] Mar, [facility] [address] [id number] [address] [place] [address], [place] [address] Mar, [facility] [address] [id number] [address] [place] [address], [place] [address] Mar, [facility] [address] [id number] [address] [place] [address], [place] [address] Mar, [facility] [address] [id number] [address] [place] [address], [place] [address] Mar, [facility] [address] [id number] [address] [place] [address], [place] [address] Mar, [facility] [address] [id number] [address] [place] [address], [place] [address] 15 Mar, 2014 [facility] [address] [id number] [address] [place] [address], [place] [address] Mar, [facility] [address] [id number] [address] [place] [address], [place] [address] Mar, [facility] [address] [id number] [address] [place] [address], [place] [address] 08 Mar, 2014 [facility] [address] [id number] [address] [place] [address], [place] [address] Mar, [facility] [address] [id number] [address] [place] [address], [place] [address] 05 Mar, 2014 [facility] [address] [id number] [address] [place] [address], [place] [address] Mar, [facility] [address] [id number] [address] [place] [address], [place] [address] Feb, [facility] [address] [id number] [address] [place] [address], [place] [address] Feb, [facility] [address] [id number] [address] [place] [address], [place] [address] Feb, [facility] [address] [id number] [address] [place] [address], [place] [address] Feb, [facility] [address] [id number] [address] [place] [address], [place] [address] Feb, [facility] [address] [id number] [address] [place] [address], [place] [address] Feb, [facility] [address] [id number] [address] [place] [address], [place] [address] Feb, [facility] [address] [id number] [address] [place] [address], [place] [address] Feb, [facility] [address] [id number] [address] [place] [address], [place] [address] Jan, [facility] [address] [id number] [address] [place] [address], [place] [address] Jan, [facility] [address] [id number] [address] [place] [address], [place] [address] Jan, [facility] [address] [id number] [address] [place] [address], [place] [id number] Jan, [facility] [address] [id number] [address] [place] [address], [place] [address] Jan, [facility] [address] [id number] [address] [place] [address], [place] [address] Jan, [facility] [address] [id number] [address] [place] [address], [place] [address] Jan, [facility] [address] [id number] [address] [place] [address], [place] [address] Jan, [facility] [address] [id number] [address] [place] [address], [place] [address] Jan, [facility] [address] [id number] [address] [place] [address], [place] [address] 30 Dec, 2013 [facility] [address] [id number] [address] [place] [address], [place] [address] 30 Dec, 2013 [facility] [address] [id number] [address] [place] [address], [place] [address] 26 Dec, 2013 [facility] [address] [id number] [address] [place] [address], [place] [address] 26 Dec, 2013 [facility] [address] [id number] [address] [place] [address], [place] [id number] 16 Dec, 2013 [facility] [address] [id number] [address] [place] [address], [place] [id number] 16 Dec, 2013 [facility] [address] [id number] [address] [place] [address], [place] [address] 08 Dec, 2013 [facility] [address] [id number] [address] [place] [address], [place] [id number] 08 Dec, 2013 [facility] [address] [id number] [address] [place] [address], [place] [address] Dec, [facility] [address] [id number] [address] [place] [address], [place] [address] Dec, [facility] [address] [id number] [address] [place] [address], [place] [address] Nov, [facility] [address] [id number] [address] [place] [address], [place] [address] Nov, [facility] [address] [id number] [address] [place] [address], [place] [address] Nov, [facility] [address] [id number] [address] [place] [address] Nov, [facility] [address] [id number] [address] [place] [address], [place] [address] Nov, [facility] [address] [id number] [address] [place] [address], [place] [address] Nov, [facility] [address] [id number] [address] [place] [address], [place] [address] Nov, [facility] [address] [id number] [address] [place] [address], [place] [address] Nov, [facility] [address] [id number] [address] [place] [address], [place] [address] Nov, [facility] [address] [id number] [address] [place] [address], [place] [address] Nov, [facility] [address] [id number] [address] [place] [address], [place] [address] Nov, [facility] [address] [id number] [address] [place] [address], [place] [address] Nov, [facility] [address] [id number] [address] [place] [address], [place] [address] Nov, [facility] [address] [id number] [address] [place] [address], [place] [address] Oct, [facility] [address] [id number] [address] [place] [address], [place] [address] Oct, [facility] [address] [id number] [address] [place] [address], [place] [address] Oct, [facility] [address] [id number] [address] [place] [address], [place] [address] Oct, [facility] [address] [id number] [address] [place] [address], [place] [address] Oct, [facility] [address] [id number] [address] [place] [address], [place] [address] Oct, [facility] [address] [id number] [facility] [place] [address] Sep, [facility] [address] [id number] [facility] [place] [address] Sep, [facility] [address] [id number] [facility] [place] [address] Sep, [facility] [address] [id number] [facility] [place] [address] Sep, [facility] [address] [id number] [address] [place] [address], [place] [address] Sep, [facility] [address] [id number] [address] [place] [address], [place] [address] Sep, [facility] [address] [id number] [address] [place] [address], [place] [address] Sep, [facility] [address] [id number] [address] [place] [address], [place] [address] Sep, [facility] [address] [id number] [address] [place] [address], [place] [address] Sep, [facility] [address] [id number] [address] [place] [address], [place] [address] Sep, [facility] [address] [id number] [address] [place] [address], [place] [address] Sep, [facility] [address] [id number] [address] [place] [address], [place] [address] Sep, [facility] [address] [id number] [address] [place] [address], [place] [address] August, [facility] [address] [id number] [address] [place] [address], [place] [address] August, [facility] [address] [id number] [address] [place] [address], [place] [address] Jul, [facility] [address] [id number] [address] [place] [address], [place] [address] 29 Jul, 2013 [facility] [address] [id number] [facility] [place] [address] Jul, [facility] [address] [id number] [facility] [place] [address] 24 Jul, 2013 [facility] [address] [id number] [address] [place] [address], [place] [address] Jul, [facility] [address] [id number] [address] [place] [address], [place] [address] Jul, [facility] [address] [id number] [address] [place] [address], [place] [address] Jul, [facility] [address] [id number] [address] [place] [address], [place] [address] 16 Jul, 2013 [facility] [address] [id number] [address] [place] [address], [place] [address] Jul, [facility] [address] [id number] [address] [place] [address], [place] [address] 15 Jul, 2013 [facility] [address] [id number] [address] [place] [address], [place] [address] 09 Jul, 2013 [facility] [address] [id number] [address] [place] [address], [place] [address] 31 Jun, 2013 [facility] [address] [id number] [address] [place] [address], [place] [address] 31 Jun, 2013 [facility] [address] [id number] [address] [place] [address], [place] [address] 28 Jun, 2013 [facility] [address] [id number] [address] [place] [address], [place] [address] 28 Jun, 2013 [facility] [address] [id number] [address] [place] [address], [place] [address] Jun, [facility] [address] [id number] [address] [place] [address], [place] [address] Jun, [facility] [address] [id number] [address] [place] [address], [place] [address] Jun, [facility] [address] [id number] [address] [place] [address], [place] [address] Jun, [facility] [address] [id number] [address] [place] [address], [place] [address] May, [facility] [address] [id number] [address] [place] [address], [place] [address] May, [facility] [address] [id number] [address] [place] [address], [place] [address] May, [facility] [address] [id number] [address] [place] [address], [place] [address] May, [facility] [address] [id number] [address] [place] [address], [place] [address] May, [facility] [address] [id number] [address] [place] [address], [place] [address] May, [facility] [address] [id number] [address] [place] [address], [place] [address] May, [facility] [address] [id number] [address] [place] [address], [place] [address] May, [facility] [address] [id number] [address] [place] [address], [place] [address] May, [facility] [address] [id number] [address] [place] [address], [place] [address] May, [facility] [address] [id number] [address] [place] [address], [place] [address] May, [facility] [address] [id number] [address] [place] [address], [place] [address] May, [facility] [address] [id number] [address] [place] [address], [place] [address] May, [facility] [address] [id number] [address] [place] [address], [place] [address] Apr, [facility] [address] [id number] [address] [place] [address], [place] [address] Apr, [facility] [address] [id number] [address] [place] [address], [place] [address] Apr, [facility] [address] [id number] [address] [place] [address], [place] [address] Apr, [facility] [address] [id number] [address] [place] [address], [place] [address] Apr, [facility] [address] [id number] [address] [place] [address], [place] [address] Apr, [facility] [address] [id number] [address] [place] [address], [place] [address] Apr, [facility] [address] [id number] [address] [place] [address], [place] [address] Apr, [facility] [address] [id number] [address] [place] [address], [place] [address] Apr, [facility] [address] [id number] [address] [place] [address], [place] [address] Apr, [facility] [address] [id number] [address] [place] [address], [place] [address] Apr, [facility] [address] [id number] [address] [place] [address], [place] [address] Apr, [facility] [address] [id number] [address] [place] [address], [place] [address] Apr, [facility] [address] [id number] [address] [place] [address], [place] [address] Apr, [facility] [address] [id number] [address] [place] [address], [place] [address] Apr, [facility] [address] [id number] [address] [place] [address], [place] [address] Mar, [facility] [address] [id number] [address] [place] [address], [place] [address] Mar, [facility] [address] [id number] [address] [place] [address], [place] [address] Mar, [facility] [address] [id number] [address] [place] [address], [place] [address] Mar, [facility] [address] [id number] [address] [place] [address], [place] [address] Mar, [facility] [address] [id number] [address] [place] [address], [place] [address] Mar, [facility] [address] [id number] [address] [place] [address], [place] [address] Mar, [facility] [address] [id number] [address] [place] [address], [place] [address] Mar, [facility] [address] [id number] [address] [place] [address], [place] [address] Mar, [facility] [address] [id number] [address] [place] [address], [place] [address] Mar, [facility] [address] [id number] [address] [place] [address], [place] [address] Mar, [facility] [address] [id number] [address] [place] [address], [place] [address] Mar, [facility] [address] [id number] [address] [place] [address], [place] [address] Feb, [facility] [address] [id number] [address] [place] [address], [place] [address] Feb, [facility] [address] [id number] [address] [place] [address], [place] [address] Feb, [facility] [address] [id number] [address] [place] [address], [place] [address] Feb, [facility] [address] [id number] [address] [place] [address], [place] [address] Feb, [facility] [address] [id number] [address] [place] [address], [place] [address] Feb, [facility] [address] [id number] [address] [place] [address], [place] [address] Feb, [facility] [address] [id number] [address] [place] [address], [place] [address] Feb, [facility] [address] [id number] [address] [place] [address], [place] [address] Jan, [facility] [address] [id number] [address] [place] [address], [place] [address] Jan, [facility] [address] [id number] [address] [place] [address], [place] [address] Jan, [facility] [address] [id number] [address] [place] [address], [place] [address] Jan, [facility] [address] [id number] [address] [place] [address], [place] [address] Jan, [facility] [address] [id number] [address] [place] [address], [place] [address] Jan, [facility] [address] [id number] [address] [place] [address], [place] [address] Jan, [facility] [address] [id number] [address] [place] [address], [place] [address] 27 Dec, 2012 [facility] [address] [id number] [address] [place] [address], [place] [address] 23 Dec, 2012 [facility] [address] [id number] [address] [place] [address], [place] [address] 23 Dec, 2012 [facility] [address] [id number] [address] [place] [address], [place] [address] 12 Dec, 2012 [facility] [address] [id number] [address] [place] [address], [place] [address] Dec, [facility] [address] [id number] [address] [place] [address] [place] [address] Nov, [facility] [address] [id number] [address] [place] [address], [place] [address] Nov, [facility] [address] [id number] [address] [place] [address], [place] [address] Nov, [facility] [address] [id number] [address] [place] [address], [place] [address] Nov, [facility] [address] [id number] [address] [place] [address], [place] [address] Nov, [facility] [address] [id number] [address] [place] [address], [place] [address] Nov, [facility] [address] [id number] [address] [place] [address], [place] [address] Nov, [facility] [address] [id number] [address] [place] [address], [place] [address] Oct, [facility] [address] [id number] [address] [place] [address], [place] [address] Oct, [facility] [address] [id number] [address] [place] [address], [place] [address] Oct, [facility] [address] [id number] [address] [place] [address], [place] [address] Oct, [facility] [address] [id number] [address] [place] [address], [place] [address] Oct, [facility] [address] [id number] [address] [place] [address], [place] [address] Oct, [facility] [address] [id number] [address] [place] [address], [place] [address] Oct, [facility] [address] [id number] [address] [place] [address], [place] [address] Oct, [facility] [address] [id number] [address] [place] [address], [place] [address] Sep, [facility] [address] [id number] [address] [place] [address], [place] [address] 14 Sep, 2012 [facility] [address] [id number] [address] [place] [address], [place] [address] 13 Sep, 2012 [facility] [address] [id number] [address] [place] [address], [place] [address] 12 Sep, 2012 [facility] [address] [id number] [address] [place] [address], [place] [address] 10 Sep, 2012 [facility] [address] [id number] [address] [place] [address], [place] [address] 06 Sep, 2012 [facility] [address] [id number] [address] [place] [address], [place] [address] August, [facility] [address] [id number] [address] [place] [address], [place] [address] August, [facility] [address] [id number] [address] [place] [address], [place] [address] August, [facility] [address] [id number] [address] [place] [address], [place] [address] August, [facility] [address] [id number] [address] [place] [address], [place] [address] August, [facility] [address] [id number] [address] [place] [address], [place] [address] Jul, [facility] [address] [id number] [address] [place] [address], [place] [address] Jul, [facility] [address] [id number] [address] [place] [address], [place] [address] 24 Jul, 2012 [facility] [address] [id number] [address] [place] [address], [place] [address] 15 Jul, 2012 [facility] [address] [id number] [address] [place] [address], [place] [address] 11 Jul, 2012 [facility] [address] [id number] [address] [place] [address], [place] [address] 05 Jul, 2012 [facility] [address] [id number] [address] [place] [address], [place] [address] 14 Jun, 2012 [facility] [address] [id number] [address] [place] [address], [place] [address] 13 Jun, 2012 [facility] [address] [id number] [address] [place] [address], [place] [address] 07 Jun, 2012 [facility] [address] [id number] [address] [place] [address], [place] [address] 07 Jun, 2012 [facility] [address] [id number] [address] [place] [address], [place] [address] 05 Jun, 2012 [facility] [address] [id number] [address] [place] [address], [place] [address] 19 May, 2012 [facility] [address] [id number] [address] [place] [address], [place] [address] 13 May, 2012 [facility] [address] [id number] [address] [place] [address], [place] [address] May, [facility] [address] [id number] [address] [place] [address], [place] [address] Apr, [facility] [address] [id number] [address] [place] [address], [place] [address] Apr, [facility] [address] [id number] [address] [place] [address], [place] [address] Mar, [facility] [address] [id number] [address] [place] [address], [place] [address] Mar, [facility] [address] [id number] [address] [place] [address], [place] [address] Mar, [facility] [address] [id number] [address] [place] [address], [place] [address] Mar, [facility] [address] [id number] [address] [place] [address], [place] [address] Mar, [facility] [address] [id number] [address] [place] [address], [place] [address] 13 Mar, 2012 [facility] [address] [id number] [address] [place] [address], [place] [address] Feb, [facility] [address] [id number] [address] [place] [address], [place] [address] Feb, [facility] [address] [id number] [address] [place] [address], [place] [address] Feb, [facility] [address] [id number] [address] [place] [address], [place] [address] Jan, [facility] [address] [id number] [address] [place] [address], [place] [address] 29 Jan, 2012 [facility] [address] [id number] [address] [place] [address], [place] [address] Jan, [facility] [address] [id number] [address] [place] [address], [place] [address] 24 Jan, 2012 [facility] [address] [id number] [address] [place] [address], [place] [address] 24 Jan, 2012 [facility] [address] [id number] [address] [place] [address], [place] [address] 17 Jan, 2012 [facility] [address] [id number] [address] [place] [address], [place] [address] 17 Jan, 2012 [facility] [address] [id number] [address] [place] [address], [place] [address] 16 Jan, 2012 [facility] [address] [id number] [address] [place] [address], [place] [address] 16 Jan, 2012 [facility] [address] [id number] [address] [place] [address], [place] [address] 18 Sep2011 [facility] [address] [id number] [address] [place] [address], [place] [address] 13 Sep2011 [facility] [address] [id number] [address] [place] [address], [place] [address] Dec, [facility] [address] [id number] [address] [place] [address], [place] [address] Nov, [facility] [address] [id number] [address] [place] [address], [place] [address] Nov, [facility] [address] [id number] [address] [place] [address], [place] [address] Nov, [facility] [address] [id number] [address] [place] [address], [place] [address] Oct, [facility] [address] [id number] [address] [place] [address], [place] [address] Oct, [facility] [address] [id number] [address] [place] [address], [place] [address] Sep, [facility] [address] [id number] [address] [place] [address], [place] [address] Sep, [facility] [address] [id number] [address] [place] [address], [place] [address] Sep, [facility] [address] [id number] [address] [place] [address], [place] [address] Sep, [facility] [address] [id number] [address] [place] [address], [place] [address] Sep, [facility] [address] [id number] [address] [place] [address], [place] [address] August, [facility] [address] [id number] [address] [place] [address], [place] [address] August, [facility] [address] [id number] [address] [place] [address], [place] [address] August, [facility] [address] [id number] [address] [place] [address], [place] [address] August, [facility] [address] [id number] [address] [place] [address], [place] [address] August, [facility] [address] [id number] [address] [place] [address], [place] [address] 14 Aug, 2011 [facility] [address] [id number] [address] [place] [address], [place] [address] August, [facility] [address] [id number] [address] [place] [address], [place] [address] August, [facility] [address] [id number] [address] [place] [address], [place] [address] August, [facility] [address] [id number] [address] [place] [address], [place] [address] 27 Jul, 2011 [facility] [address] [id number] [address] [place] [address], [place] [address] 19 Jul, 2011 [facility] [address] [id number] [address] [place] [address], [place] [address] 10 Jul, 2011 [facility] [address] [id number] [address] [place] [address], [place] [address] 04 Jul, 2011 [facility] [address] [id number] [address] [place] [address], [place] [address] 27 Jun, 2011 [facility] [address] [id number] [address] [place] [address], [place] [address] 13 Jun, 2011 [facility] [address] [id number] [address] [place] [address], [place] [id number] 13 Jun, 2011 [facility] [address] [id number] [address] [place] [address], [place] [address] 27 May, 2011 [facility] [address] [id number] [address] [place] [address], [place] [address] 24 May, 2011 [facility] [address] [id number] [address] [place] [address], [place] [address] 20 May, 2011 [facility] [address] [id number] [address] [place] [address], [place] [address] 16 May, 2011 [facility] [address] [id number] [address] [place] [address], [place] [address] 15 May, 2011 [facility] [address] [id number] [address] [place] [address], [place] [id number] 14 May, 2011 [facility] [address] [id number] [address] [place] [address], [place] [address] 10 May, 2011 [facility] [address] [id number] [address] [place] [address], [place] [address] 09 May, 2011 [facility] [address] [id number] [address] [place] [address], [place] [address] May, [facility] [address] [id number] [address] [place] [address], [place] [address] Apr, [facility] [address] [id number] [address] [place] [address], [place] [address] Apr, [facility] [address] [id number] [address] [place] [address], [place] [address] Apr, [facility] [address] [id number] [address] [place] [address], [place] [address] Apr, [facility] [address] [id number] [address] [place] [address], [place] [address] Apr, [facility] [address] [id number] [address] [place] [address], [place] [address] Apr, [facility] [address] [id number] [address] [place] [address], [place] [address] Apr, [facility] [address] [id number] [address] [place] [address], [place] [address] Apr, [facility] [address] [id number] [address] [place] [address], [place] [address] Apr, [facility] [address] [id number] [address] [place] [address], [place] [address] Apr, [facility] [address] [id number] [address] [place] [address], [place] [address] Apr, [facility] [address] [id number] [address] [place] [id number] Mar, [facility] [address] [id number] [address] [place] [id number] Mar, [facility] [address] [id number] [address] [place] [id number] Mar, [facility] [address] [facility] [id number] [address] [place] [id number] Mar, [facility] [address] [facility] [id number] [address] [place] [id number] Feb, [facility] [address] [facility] [id number] [address] [place] [id number] Feb, [facility] [address] [facility] [id number] [address] [place] [id number] Jan, [facility] [address] [facility] [id number] [address] [place] [id number] Nov, IMMUNIZATIONS No Known Immunizations SOCIAL HISTORY [...] laser treatment for glaucoma Hospitalization History [facility] [place]- Right side and back pain related to fall, hurts to breathe (ED at 7 pm) 06/07/2017 Hospitalization History [facility] [place]- Anxiety ( went to ED at 1200) 06/07/2017 Hospitalization History COPD exacerbation - Gerald Pizano 2017 Hospitalization History Blood clot, port placement - Gerald Pizano 09/2017
--- OUTSIDE RECORDS SUMMARY | 2019-09-01 14:20 | XMS REPORT ---
Author Author Sophia SEGURA Organization [facility] Address [address] [place] [address] Care Team Providers Care Senior Net Application Developer Name Role Phone HERMINIA SEGURA Unavailable PROBLEMS Type Condition ICD9-CM Code [id number] Code Onset Dates Condition S tatus SNOMED Code Problem Generalized abdominal pain R10.84 Act sree [id number] Problem Anxiety F41.9 Active 62231244 Problem Proteinuria R80.9 Active 67020308 Problem Hyperlipidemia, unspecified hyperlipidemia E78.5 Active 15684128 Problem Essential hypertension I10 Active 11365760 Problem Venous insufficiency I87.2 Active 71132748 Problem Type 2 diabetes mellitus without complication E11. 9 Active 25295808 Problem Pneumonia due to infectious organism, unspecified laterality, unspecified part of lung J18.9 Active 312 053805 Problem Major depressive disorder, recurrent episode, un specified severity F33.9 Active 59481004 Problem Acute cystitis with hematuria N30.01 Active 28600288 Problem Sciatica, unspecified laterality M54.30 Active 97052957 Problem Carpal tunnel syndrome, right upper limb G56.01 Active 62329460 Problem Chronic pain syndrome G89.4 Active 552491119 Problem Port catheter in place Z95.828 Active 790911056 Problem History of small bowel obstruction Z87.19 Active 558509276 Problem Chronic pancreatitis, unspecified pancreatitis type K86.1 Active 231803960 Problem Presence of IVC filter Z95.828 Active 012232691 Problem Vitamin D deficiency E55.9 Active 96102621 Problem Gastroesophageal reflux disease, esophagitis pre sence not specified K21.9 Active 014742081 Problem Exacerbation of systemic lupus M32.9 Active 60681887 Problem Hypothyroidism, unspecified type E03.9 Active 86827714 Problem Nausea R11.0 Active 280575065 Problem Gastroesophageal reflux disease without esophagitis K21.9 Active 112678517 Problem Tobacco abuse counseling Z71.6 Activ e 31867820 Problem Hypertension, benign I10 Active 30474000 Problem Chronic obstructive pulmonary disease, unspecified COPD ty pe J44.9 Active 55060219 Problem Other iron deficiency anemia D50.8 A ctive 72173143 Problem Obstructive sleep apnea G47.33 Active 27768767 Problem History of pulmonary embolism Z86.711 Active 774162344 Problem 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 A ctive 542154508 Problem Opiate dependence, continuous F11.20 Active 894880901 Problem Cannabis abuse with physiological dependence F12.1 0 Active 09687749 Problem Violation of controlled substance agreement Z91.14 Active 906346187 ALLERGIES No Information ENCOUNTERS Encounter Location Date Diagnosis [place] [id number] [facility] [id number] [address] [place] [address] August, Type 2 diabetes mellitus wit hout complication E11.9 [place] [address] [address] [place] [id number] [place] [id number] 17 Jul, 2019 Essential hypertension I10 ; Type 2 diabetes mellitus without complication E11.9 and Other iron deficiency anemia D50.8 [place] [address] [address] [facility] [id number] [address] [place] [address] Jul, [place] [address] [place] [id number] [address] [place] [address] May, [place] [address] [place] [id number] [address] [place] [address] Apr, Tobacco abuse Z72.0 ; Hypert ension, benign I10 and Tobacco abuse counseling Z71.6 [place] [address] [address] [facility] [id number] [address] [place] [phone] Sep, [place] [address] [address] [facility] [id number] [address] [place] [address] Sep, [place] [address] [place] [id number] [address] [place] [address] Sep, Essential hypertension I10 [place] [address] [place] [id number] [address] [place] [address] Sep, [place] [address] [place] [id number] [address] [place] [address] Sep, [facility] [address] [facility] [id number] [address] [place] [address] Sep, Neck mass R22.1 [facility] [address] [facility] [id number] [address] [place] [address] August, Neck mass R22.1 [facility] [address] [facility] [id number] [address] [place] [address] Feb, Left foot pain M79.672 [facility] [address] [facility] [id number] [address] [place] [address] Jun, Chronic pain syndrome G89.4 [facility] [address] [place] [id number] [place] [id number] May, [facility] [address] [facility] [id number] [address] [place] [address] May, [facility] [address] [facility] [id number] [address] [place] [address] May, Chronic pain syndrome G89.4 [facility] [address] [facility] [id number] [address] [place] [address] 13 May, 2017 [facility] [address] [facility] [id number] [address] [place] [address] 10 May, 2017 Encounter for immunization Z 23 and Laceration of left index finger without foreign body without damage to nail, initial encounter S61.211A [facility] [address] [facility] [id number] [address] [place] [phone] 09 May, 2017 Chronic pain syndrome G89.4 [facility] [address] [facility] [id number] [address] [place] [address] 07 May, 2017 [facility] [address] [facility] [id number] [address] [place] [address] Apr, Cannabis abuse with physiolo gical dependence F12.10 ; Violation of controlled substance agreement Z91.14 and Opiate dependence, continuous F11.20 [facility] [address] [facility] [id number] [address] [place] [phone] Apr, Type 2 diabetes mellitus wit hout complication E11.9 [facility] [address] [facility] [id number] [address] [place] [address] Apr, [facility] [address] [facility] [id number] [address] [place] [address] Apr, Chronic pain syndrome G89.4 [facility] [address] [facility] [id number] [address] [place] [address] Apr, Viral syndrome B34.9 [facility] [address] [facility] [id number] [address] [place] [address] Apr, [facility] [address] [place] [id number] [address] [place] [address] Mar, Chronic pain syndrome G89.4 [facility] [address] [place] [id number] [address] [place] [phone] Mar, [facility] [address] [place] [id number] [address] [place] [address] Mar, [facility] [address] [place] [id number] [address] [place] [address] Feb, Essential hypertension I10 ; Chronic pain syndrome G89.4 ; Hyperlipidemia, unspecified hyperlipidemia E78.5 ; 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 and Encounter for immunization Z23 [facility] [address] [facility] [id number] [address] [place] [address] Feb, Chronic pain syndrome G89.4 [facility] [address] [facility] [id number] [address] [place] [address] Jan, Chronic pain syndrome G89.4 [facility] [address] [facility] [id number] [address] [place] [address] Jan, [facility] [address] [place] [id number] [address] [place] [address] Jan, Bronchitis J40 ; Port cathet er in place Z95.828 and Chronic pain syndrome G89.4 [facility] [address] [place] [id number] [place] [id number] Jan, [facility] [address] [id number] [address] [place] [address] Dec, Chronic pain syndrome G89.4 [facility] [address] [id number] [address] [place] [address] Dec, Chronic pain syndrome G89.4 [facility] [address] [id number] [address] [place] [address] Dec, [facility] [address] [id number] [address] [place] [phone] Nov, [facility] [address] [id number] [address] [place] [address] Nov, Chronic pain syndrome G89.4 [facility] [address] [id number] [address] [place] [address] Oct, Chronic pain syndrome G89.4 [facility] [address] [id number] [address] [place] [address] Oct, [facility] [address] [id number] [address] [place] [id number] Sep, Chronic pain syndrome G89.4 [facility] [address] [id number] [address] [place] [address] Sep, Exacerbation of systemic lup us M32.9 [facility] [address] [id number] [address] [place] [address] Sep, [facility] [address] [id number] [address] [place] [address] Sep, [facility] [address] [id number] [address] [place] [address] Sep, Nausea R11.0 [facility] [address] [place] [address] August, Chronic pain syndrome G89.4 [place] [address] [place] [address] August, [place] [address] [place] [id number] [address] [place] [id number] August, Chronic pain syndrome G89.4 [place] [address] [place] [id number] [address] [place] [address] Jul, Pneumonia due to infectious organism, unspecified laterality, unspecified part of lung J18.9 and Tobacco abuse counseling Z71.6 [place] [address] [address] Jul, Chronic pain syndrome G89.4 [place] [address] [address] Jun, Essential hypertension I10 [place] [address] [address] Jun, Pneumonia due to infectious organism, unspecified laterality, unspecified part of lung J18.9 [place] [address] [place] [id number] [address] [place] [address] Jun, Chronic pain syndrome G89.4 [place] [address] [place] [id number] [address] [place] [address] May, Essential hypertension I10 ; Type 2 [...] and Gastroesophageal reflux disease without esophagitis K21.9 [place] [id number] [place] [phone] Apr, [facility] [address] [facility] [id number] [address] [place] [address] Apr, Pneumonia due to infectious organism, unspecified laterality, unspecified part of lung J18.9 and Nausea R11.0 [facility] [address] [facility] [id number] [address] [place] [address] Apr, Essential hypertension I10 ; Chronic pain syndrome G89.4 ; Type 2 diabetes mellitus without complication E11.9 ; Hyperlipidemia, unspecified hyperlipidemia E78.5 ; Major depressive disorder, recurrent episode, unspecified severity F33.9 ; Sciatica, unspecified laterality M54.30 ; Chronic obstructive pulmonary disease, unspecified COPD type J44.9 ; Pneumonia due to infectious organism, unspecified laterality, unspecified part of lung J18.9 and Nausea R11.0 [facility] [address] [facility] [id number] [address] [place] [phone] Mar, [facility] [address] [facility] [id number] [address] [place] [address] Mar, [facility] [address] [facility] [id number] [address] [place] [address] Mar, [place] [address] [facility] [id number] [address] [place] [address] Mar, Anxiety F41.9 and Major depr essive disorder, recurrent episode, unspecified severity F33.9 [facility] [address] [facility] [id number] [address] [place] [address] Mar, [facility] [address] [facility] [id number] [address] [place] [address] Mar, [place] [address] [facility] [id number] [address] [place] [address] Mar, Generalized abdominal pain R 10.84 ; Acute cystitis with hematuria N30.01 and Essential hypertension I10 [facility] [address] [facility] [id number] [address] [place] [address] Mar, Sore throat J02.9 and Exacer bation of systemic lupus M32.9 [place] [address] [place] [address] Feb, Type 2 diabetes mellitus wit hout [...] reflux disease, esophagitis presence not specified K21.9 [place] [address] [address] Feb, [place] [address] [address] Jan, [facility] [place] [address] [address] Jan, Right arm pain M79.601 [address] of right wrist, initial encounter S66.911A [place] [address] [address] Jan, [facility] [place] [address] [address] 30 Dec, 2015 Generalized abdominal pain R 10.84 [place] [address] [place] [address] 23 Dec, 2015 Adenopathy R59.1 [place] [address] [address] 19 Dec, 2016 Bronchitis J40 [place] [address] [address] 14 Dec, 2015 [place] [address] [address] Dec, Essential hypertension I10 [facility] [address] [place] [id number] [address] [place] [address] Nov, [facility] [address] [place] [id number] [address] [place] [address] Nov, [place] [address] [place] [id number] [address] [place] [address] Nov, Essential hypertension I10 ; Hyperlipidemia, unspecified [...] Type 2 diabetes mellitus without complication E11.9 [place] [address] [address] Nov, [place] [address] [address] Oct, Type 2 diabetes mellitus wit hout complication E11.9 ; Essential hypertension I10 ; Other viral warts B07.8 ; [place] or callus L84 and Hyperlipidemia, unspecified hyperlipidemia E78.5 [place] [address] [place] [id number] [address] [place] [address] Sep, [place] [address] [place] [id number] [address] [place] [address] Sep, [place] [address] [place] [id number] [address] [place] [address] Jun, [place] [address] [place] [id number] [address] [place] [address] Jun, [place] [address] [id number] [address] [place] [address] 16 May, 2015 [facility] [address] [id number] [address] [place] [address] Apr, [facility] [address] [id number] [address] [place] [address] Feb, [facility] [address] [id number] [address] [place] [phone] Feb, COPD exacerbation J44.1 and Acute upper respiratory infection J06.9 [facility] [address] [id number] [address] [place] [address] Feb, [facility] [address] [id number] [address] [place] [address] Feb, [facility] [address] [facility] [id number] [address] [place] [address] Feb, [facility] [address] [id number] [address] [place] [address] Feb, [facility] [address] [id number] [address] [place] [address] Jan, Left hip pain M25.552 [facility] [address] [facility] [id number] [address] [place] [address] Jan, Essential hypertension I10 ; Chronic pain syndrome G89.4 ; Type 2 diabetes mellitus without complication E11.9 and Hyperlipidemia, unspecified hyperlipidemia E78.5 [facility] [address] [id number] [address] [place] [id number] 28 Jul, 2014 [facility] [address] [facility] [id number] [address] [place] [address] 14 Jul, 2014 [facility] [address] [facility] [id number] [address] [place] [address] Jul, [facility] [address] [facility] [id number] [address] [place] [address] Jun, [facility] [address] [id number] [address] [place] [address], [place] [address] Jun, [facility] [address] [id number] [address] [place] [address], [place] [address] Jun, [facility] [address] [id number] [address] [place] [address], [place] [address] Jun, [facility] [address] [id number] [address] [place] [address], [place] [address] Jun, [facility] [address] [id number] [address] [place] [address], [place] [address] Jun, [facility] [address] [id number] [address] [place] [address], [place] [address] Jun, [facility] [address] [id number] [address] [place] [address], [place] [address] Jun, [facility] [address] [id number] [address] [place] [address], [place] [address] Jun, [facility] [address] [id number] [address] [place] [address], [place] [address] Jun, [facility] [address] [id number] [address] [place] [address], [place] [address] Jun, [facility] [address] [id number] [address] [place] [address], [place] [address] Jun, [facility] [address] [id number] [address] [place] [address], [place] [address] Apr, [facility] [address] [id number] [address] [place] [address], [place] [address] Apr, [facility] [address] [id number] [address] [place] [address], [place] [address] Apr, [facility] [address] [id number] [address] [place] [address], [place] [address] Apr, [facility] [address] [id number] [address] [place] [address], [place] [address] Apr, [facility] [address] [id number] [address] [place] [address], [place] [address] Apr, [facility] [address] [id number] [address] [place] [address], [place] [address] Apr, [facility] [address] [id number] [address] [place] [address], [place] [address] Apr, [facility] [address] [id number] [address] [place] [address], [place] [address] Mar, [facility] [address] [id number] [address] [place] [address], [place] [address] Mar, [facility] [address] [id number] [address] [place] [address], [place] [address] Mar, [facility] [address] [id number] [address] [place] [address], [place] [address] Mar, [facility] [address] [id number] [address] [place] [address], [place] [address] Mar, [facility] [address] [id number] [address] [place] [address], [place] [address] Mar, [facility] [address] [id number] [address] [place] [address], [place] [address] 15 Mar, 2014 [facility] [address] [id number] [address] [place] [address], [place] [address] Mar, [facility] [address] [id number] [address] [place] [address], [place] [address] Mar, [facility] [address] [id number] [address] [place] [address], [place] [address] 08 Mar, 2014 [facility] [address] [id number] [address] [place] [address], [place] [address] Mar, [facility] [address] [id number] [address] [place] [address], [place] [address] 05 Mar, 2014 [facility] [address] [id number] [address] [place] [address], [place] [address] Mar, [facility] [address] [id number] [address] [place] [address], [place] [address] Feb, [facility] [address] [id number] [address] [place] [address], [place] [address] Feb, [facility] [address] [id number] [address] [place] [address], [place] [address] Feb, [facility] [address] [id number] [address] [place] [address], [place] [address] Feb, [facility] [address] [id number] [address] [place] [address], [place] [id number] Feb, [facility] [address] [id number] [address] [place] [address], [place] [id number] Feb, [facility] [address] [id number] [address] [place] [address], [place] [id number] Feb, [facility] [address] [id number] [address] [place] [address], [place] [id number] Feb, [facility] [address] [id number] [address] [place] [address], [place] [id number] Jan, [facility] [address] [id number] [address] [place] [address], [place] [id number] Jan, [facility] [address] [id number] [address] [place] [address], [place] [id number] Jan, [facility] [address] [id number] [address] [place] [address], [place] [id number] Jan, [facility] [address] [id number] [address] [place] [address], [place] [id number] Jan, [facility] [address] [id number] [address] [place] [address], [place] [id number] Jan, [facility] [address] [id number] [address] [place] [address], [place] [id number] Jan, [facility] [address] [id number] [address] [place] [address], [place] [address] Jan, [facility] [address] [id number] [address] [place] [address], [place] [id number] Jan, [facility] [address] [id number] [address] [place] [address], [place] [id number] 30 Dec, 2013 [facility] [address] [id number] [address] [place] [address], [place] [id number] 30 Dec, 2013 [facility] [address] [id number] [address] [place] [address], [place] [id number] 26 Dec, 2013 [facility] [address] [id number] [address] [place] [address], [place] [id number] 26 Dec, 2013 [facility] [address] [id number] [address] [place] [address], [place] [id number] 16 Dec, 2013 [facility] [address] [id number] [address] [place] [address], [place] [id number] 16 Dec, 2013 [facility] [address] [address] [id number] [address] [place] [address], [place] [address] 08 Dec, 2013 [facility] [address] [id number] [address] [place] [address], [place] [address] 08 Dec, 2013 [facility] [address] [id number] [address] [place] [address], [place] [address] Dec, [facility] [address] [id number] [address] [place] [address], [place] [address] Dec, [facility] [address] [id number] [address] [place] [address], [place] [address] Nov, [facility] [address] [id number] [address] [place] [address], [place] [address] Nov, [facility] [address] [id number] [address] [place] [address], [place] [address] Nov, [facility] [address] [id number] [address] [place] [address] Nov, [facility] [address] [id number] [address] [place] [address], [place] [address] Nov, [facility] [address] [id number] [address] [place] [address], [place] [address] Nov, [facility] [address] [id number] [address] [place] [address], [place] [address] Nov, [facility] [address] [id number] [address] [place] [address], [place] [address] Nov, [facility] [address] [id number] [address] [place] [address], [place] [address] Nov, [facility] [address] [id number] [address] [place] [address], [place] [address] Nov, [facility] [address] [id number] [address] [place] [address], [place] [address] Nov, [facility] [address] [id number] [address] [place] [address], [place] [address] Nov, [facility] [address] [id number] [address] [place] [address], [place] [address] Nov, [facility] [address] [id number] [address] [place] [address], [place] [address] Oct, [facility] [address] [id number] [address] [place] [address], [place] [address] Oct, [facility] [address] [id number] [address] [place] [address], [place] [address] Oct, [facility] [address] [id number] [address] [place] [address], [place] [address] Oct, [facility] [address] [id number] [address] [place] [address], [place] [address] Oct, [facility] [address] [id number] [address] [place] [address], [place] [address] Oct, [facility] [address] [id number] [facility] [place] [address] Sep, [facility] [address] [id number] [facility] [place] [address] Sep, [facility] [address] [id number] [facility] [place] [address] Sep, [facility] [address] [id number] [facility] [place] [address] Sep, [facility] [address] [id number] [address] [place] [address], [place] [address] Sep, [facility] [address] [id number] [address] [place] [address], [place] [address] Sep, [facility] [address] [id number] [address] [place] [address], [place] [address] Sep, [facility] [address] [id number] [address] [place] [address], [place] [address] Sep, [facility] [address] [id number] [address] [place] [address], [place] [address] Sep, [facility] [address] [id number] [address] [place] [address], [place] [address] Sep, [facility] [address] [id number] [address] [place] [address], [place] [address] Sep, [facility] [address] [id number] [address] [place] [address], [place] [address] Sep, [facility] [address] [id number] [address] [place] [address], [place] [address] August, [facility] [address] [id number] [address] [place] [address], [place] [address] August, [facility] [address] [id number] [address] [place] [address], [place] [address] Jul, [facility] [address] [id number] [address] [place] [address], [place] [address] 29 Jul, 2013 [facility] [address] [id number] [facility] [place] [address] Jul, [facility] [address] [id number] [facility] [place] [address] 24 Jul, 2013 [facility] [address] [id number] [address] [place] [address], [place] [address] Jul, [facility] [address] [id number] [address] [place] [address], [place] [address] Jul, [facility] [address] [id number] [address] [place] [address], [place] [address] Jul, [facility] [address] [id number] [address] [place] [address], [place] [address] 16 Jul, 2013 [facility] [address] [id number] [address] [place] [address], [place] [address] Jul, [facility] [address] [id number] [address] [place] [address], [place] [address] 15 Jul, 2013 [facility] [address] [id number] [address] [place] [address], [place] [address] 09 Jul, 2013 [facility] [address] [id number] [address] [place] [address], [place] [address] 31 Jun, 2013 [facility] [address] [id number] [address] [place] [address], [place] [address] 31 Jun, 2013 [facility] [address] [id number] [address] [place] [address], [place] [address] 28 Jun, 2013 [facility] [address] [id number] [address] [place] [address], [place] [address] 28 Jun, 2013 [facility] [address] [id number] [address] [place] [address], [place] [address] Jun, [facility] [address] [id number] [address] [place] [address], [place] [address] Jun, [facility] [address] [id number] [address] [place] [address], [place] [address] Jun, [facility] [address] [id number] [address] [place] [address], [place] [address] Jun, [facility] [address] [id number] [address] [place] [address], [place] [address] May, [facility] [address] [id number] [address] [place] [address], [place] [address] May, [facility] [address] [id number] [address] [place] [address], [place] [address] May, [facility] [address] [id number] [address] [place] [address], [place] [address] May, [facility] [address] [id number] [address] [place] [address], [place] [address] May, [facility] [address] [id number] [address] [place] [address], [place] [address] May, [facility] [address] [id number] [address] [place] [address], [place] [address] May, [facility] [address] [id number] [address] [place] [address], [place] [address] May, [facility] [address] [id number] [address] [place] [address], [place] [address] May, [facility] [address] [id number] [address] [place] [address], [place] [address] May, [facility] [address] [id number] [address] [place] [address], [place] [address] May, [facility] [address] [id number] [address] [place] [address], [place] [address] May, [facility] [address] [id number] [address] [place] [address], [place] [address] May, [facility] [address] [id number] [address] [place] [address], [place] [address] Apr, [facility] [address] [id number] [address] [place] [address], [place] [address] Apr, [facility] [address] [id number] [address] [place] [address], [place] [address] Apr, [facility] [address] [id number] [address] [place] [address], [place] [address] Apr, [facility] [address] [id number] [address] [place] [address], [place] [address] Apr, [facility] [address] [id number] [address] [place] [address], [place] [address] Apr, [facility] [address] [id number] [address] [place] [address], [place] [address] Apr, [facility] [address] [id number] [address] [place] [address], [place] [address] Apr, [facility] [address] [id number] [address] [place] [address], [place] [address] Apr, [facility] [address] [id number] [address] [place] [address], [place] [address] Apr, [facility] [address] [id number] [address] [place] [address], [place] [address] Apr, [facility] [address] [id number] [address] [place] [address], [place] [address] Apr, [facility] [address] [id number] [address] [place] [address], [place] [address] Apr, [facility] [address] [id number] [address] [place] [address], [place] [address] Apr, [facility] [address] [id number] [address] [place] [address], [place] [address] Apr, [facility] [address] [id number] [address] [place] [address], [place] [address] Mar, [facility] [address] [id number] [address] [place] [address], [place] [address] Mar, [facility] [address] [id number] [address] [place] [address], [place] [address] Mar, [facility] [address] [id number] [address] [place] [address], [place] [address] Mar, [facility] [address] [id number] [address] [place] [address], [place] [address] Mar, [facility] [address] [id number] [address] [place] [address], [place] [address] Mar, [facility] [address] [id number] [address] [place] [address], [place] [address] Mar, [facility] [address] [id number] [address] [place] [address], [place] [address] Mar, [facility] [address] [id number] [address] [place] [address], [place] [address] Mar, [facility] [address] [id number] [address] [place] [address], [place] [address] Mar, [facility] [address] [id number] [address] [place] [address], [place] [address] Mar, [facility] [address] [id number] [address] [place] [address], [place] [address] Mar, [facility] [address] [id number] [address] [place] [address], [place] [address] Feb, [facility] [address] [id number] [address] [place] [address], [place] [address] Feb, [facility] [address] [id number] [address] [place] [address], [place] [address] Feb, [facility] [address] [id number] [address] [place] [address], [place] [address] Feb, [facility] [address] [id number] [address] [place] [address], [place] [address] Feb, [facility] [address] [id number] [address] [place] [address], [place] [address] Feb, [facility] [address] [id number] [address] [place] [address], [place] [address] Feb, [facility] [address] [id number] [address] [place] [address], [place] [address] Feb, [facility] [address] [id number] [address] [place] [address], [place] [address] Jan, [facility] [address] [id number] [address] [place] [address], [place] [address] Jan, [facility] [address] [id number] [address] [place] [address], [place] [address] Jan, [facility] [address] [id number] [address] [place] [address], [place] [address] Jan, [facility] [address] [id number] [address] [place] [address], [place] [address] Jan, [facility] [address] [id number] [address] [place] [address], [place] [address] Jan, [facility] [address] [id number] [address] [place] [address], [place] [address] Jan, [facility] [address] [id number] [address] [place] [address], [place] [address] 27 Dec, 2012 [facility] [address] [id number] [address] [place] [address], [place] [address] 23 Dec, 2012 [facility] [address] [id number] [address] [place] [address], [place] [address] 23 Dec, 2012 [facility] [address] [id number] [address] [place] [address], [place] [address] 12 Dec, 2012 [facility] [address] [id number] [address] [place] [address], [place] [address] Dec, [facility] [address] [id number] [address] [place] [address] [place] [address] Nov, [facility] [address] [id number] [address] [place] [address], [place] [address] Nov, [facility] [address] [id number] [address] [place] [address], [place] [address] Nov, [facility] [address] [id number] [address] [place] [address], [place] [address] Nov, [facility] [address] [id number] [address] [place] [address], [place] [address] Nov, [facility] [address] [id number] [address] [place] [address], [place] [address] Nov, [facility] [address] [id number] [address] [place] [address], [place] [address] Nov, [facility] [address] [id number] [address] [place] [address], [place] [address] Oct, [facility] [address] [id number] [address] [place] [address], [place] [address] Oct, [facility] [address] [id number] [address] [place] [address], [place] [address] Oct, [facility] [address] [id number] [address] [place] [address], [place] [address] Oct, [facility] [address] [id number] [address] [place] [address], [place] [address] Oct, [facility] [address] [id number] [address] [place] [address], [place] [address] Oct, [facility] [address] [id number] [address] [place] [address], [place] [address] Oct, [facility] [address] [id number] [address] [place] [address], [place] [address] Oct, [facility] [address] [id number] [address] [place] [address], [place] [address] Sep, [facility] [address] [id number] [address] [place] [address], [place] [address] 14 Sep, 2012 [facility] [address] [id number] [address] [place] [address], [place] [address] 13 Sep, 2012 [facility] [address] [id number] [address] [place] [address], [place] [address] 12 Sep, 2012 [facility] [address] [id number] [address] [place] [address], [place] [address] 10 Sep, 2012 [facility] [address] [id number] [address] [place] [address], [place] [address] 06 Sep, 2012 [facility] [address] [id number] [address] [place] [address], [place] [address] August, [facility] [address] [id number] [address] [place] [address], [place] [address] August, [facility] [address] [id number] [address] [place] [address], [place] [address] August, [facility] [address] [id number] [address] [place] [address], [place] [address] August, [facility] [address] [id number] [address] [place] [address], [place] [address] August, [facility] [address] [id number] [address] [place] [address], [place] [address] Jul, [facility] [address] [id number] [address] [place] [address], [place] [address] Jul, [facility] [address] [id number] [address] [place] [address], [place] [address] 24 Jul, 2012 [facility] [address] [id number] [address] [place] [address], [place] [address] 15 Jul, 2012 [facility] [address] [id number] [address] [place] [address], [place] [address] 11 Jul, 2012 [facility] [address] [id number] [address] [place] [address], [place] [address] 05 Jul, 2012 [facility] [address] [id number] [address] [place] [address], [place] [address] 14 Jun, 2012 [facility] [address] [id number] [address] [place] [address], [place] [address] 13 Jun, 2012 [facility] [address] [id number] [address] [place] [address], [place] [address] 07 Jun, 2012 [facility] [address] [id number] [address] [place] [address], [place] [address] 07 Jun, 2012 [facility] [address] [id number] [address] [place] [address], [place] [address] 05 Jun, 2012 [facility] [address] [id number] [address] [place] [address], [place] [address] 19 May, 2012 [facility] [address] [id number] [address] [place] [address], [place] [address] 13 May, 2012 [facility] [address] [id number] [address] [place] [address], [place] [address] May, [facility] [address] [id number] [address] [place] [address], [place] [id number] Apr, [facility] [address] [id number] [address] [place] [address], [place] [id number] Apr, [facility] [address] [id number] [address] [place] [address], [place] [address] Mar, [facility] [address] [id number] [address] [place] [address], [place] [address] Mar, [facility] [address] [id number] [address] [place] [address], [place] [id number] Mar, [facility] [address] [id number] [address] [place] [address], [place] [id number] Mar, [facility] [address] [id number] [address] [place] [address], [place] [id number] Mar, [facility] [address] [id number] [address] [place] [address], [place] [id number] 13 Mar, 2012 [facility] [address] [id number] [address] [place] [address], [place] [address] Feb, [facility] [address] [id number] [address] [place] [address], [place] [id number] Feb, [facility] [address] [id number] [address] [place] [address], [place] [address] Feb, [facility] [address] [id number] [address] [place] [address], [place] [id number] Jan, [facility] [address] [id number] [address] [place] [address], [place] [id number] 29 Jan, 2012 [facility] [address] [id number] [address] [place] [address], [place] [address] Jan, [facility] [address] [id number] [address] [place] [address], [place] [address] 24 Jan, 2012 [facility] [address] [id number] [address] [place] [address], [place] [id number] 24 Jan, 2012 [facility] [address] [id number] [address] [place] [address], [place] [id number] 17 Jan, 2012 [facility] [address] [id number] [address] [place] [address], [place] [id number] 17 Jan, 2012 [facility] [address] [id number] [address] [place] [address], [place] [id number] 16 Jan, 2012 [facility] [address] [id number] [address] [place] [address], [place] [id number] 16 Jan, 2012 [facility] [address] [id number] [address] [place] [address], [place] [id number] 18 Sep2011 [facility] [address] [id number] [address] [place] [address], [place] [id number] 13 Sep2011 [facility] [address] [id number] [address] [place] [address], [place] [address] Dec, [facility] [address] [id number] [address] [place] [address], [place] [address] Nov, [facility] [address] [id number] [address] [place] [address], [place] [address] Nov, [facility] [address] [id number] [address] [place] [address], [place] [id number] Nov, [facility] [address] [id number] [address] [place] [address], [place] [id number] Oct, [facility] [address] [id number] [address] [place] [address], [place] [address] Oct, [facility] [address] [id number] [address] [place] [address], [place] [address] Sep, [facility] [address] [id number] [address] [place] [address], [place] [id number] Sep, [facility] [address] [id number] [address] [place] [address], [place] [id number] Sep, [facility] [address] [id number] [address] [place] [address], [place] [address] Sep, [facility] [address] [id number] [address] [place] [address], [place] [address] Sep, [facility] [address] [id number] [address] [place] [address], [place] [id number] August, [facility] [address] [id number] [address] [place] [address], [place] [address] August, [facility] [address] [id number] [address] [place] [address], [place] [address] August, [facility] [address] [id number] [address] [place] [address], [place] [address] August, [facility] [address] [id number] [address] [place] [address], [place] [id number] August, [facility] [address] [id number] [address] [place] [address], [place] [id number] 14 Aug, 2011 [facility] [address] [id number] [address] [place] [address], [place] [id number] August, [facility] [address] [id number] [address] [place] [address], [place] [address] August, [facility] [address] [id number] [address] [place] [address], [place] [address] August, [facility] [address] [id number] [address] [place] [address], [place] [address] 27 Jul, 2011 [facility] [address] [id number] [address] [place] [address], [place] [id number] 19 Jul, 2011 [facility] [address] [id number] [address] [place] [address], [place] [id number] 10 Jul, 2011 [facility] [address] [id number] [address] [place] [address], [place] [id number] 04 Jul, 2011 [facility] [address] [id number] [address] [place] [address], [place] [id number] 27 Jun, 2011 [facility] [address] [id number] [address] [place] [address], [place] [id number] 13 Jun, 2011 [facility] [address] [id number] [address] [place] [address], [place] [address] 13 Jun, 2011 [facility] [address] [id number] [address] [place] [address], [place] [id number] 27 May, 2011 [facility] [address] [id number] [address] [place] [address], [place] [id number] 24 May, 2011 [facility] [address] [id number] 15 [place] [address], [place] [id number] 20 May, 2011 [facility] [address] [id number] [address] [place] [address], [place] [id number] 16 May, 2011 [facility] [address] [id number] [address] [place] [address], [place] [id number] 15 May, 2011 [facility] [address] [id number] [address] [place] [address], [place] [id number] 14 May, 2011 [facility] [address] [id number] [address] [place] [address], [place] [id number] 10 May, 2011 [facility] [address] [id number] [address] [place] [address], [place] [id number] 09 May, 2011 [facility] [address] [id number] [address] [place] [address], [place] [id number] May, [facility] [address] [id number] [address] [place] [address], [place] [id number] Apr, [facility] [address] [id number] [address] [place] [address], [place] [id number] Apr, [facility] [address] [id number] [address] [place] [address], [place] [id number] Apr, [facility] [address] [id number] [address] [place] [address], [place] [id number] Apr, [facility] [address] [id number] [address] [place] [address], [place] [id number] Apr, [facility] [address] [id number] [address] [place] [address], [place] [id number] Apr, [facility] [address] [id number] [address] [place] [address], [place] [id number] Apr, [facility] [address] [id number] [address] [place] [address], [place] [id number] Apr, [facility] [address] [id number] [address] [place] [address], [place] [id number] Apr, [facility] [address] [id number] [address] [place] [address], [place] [id number] Apr, [facility] [address] [id number] [address] [place] [address], [place] [id number] Apr, [facility] [address] [id number] [address] [place] [id number] Mar, [facility] [address] [id number] [address] [place] [id number] Mar, [facility] [address] [id number] [address] [place] [id number] Mar, [facility] [address] [facility] [id number] [address] [place] [id number] Mar, [facility] [address] [facility] [id number] [address] [place] [id number] Feb, [facility] [address] [facility] [id number] [address] [place] [phone] Feb, [facility] [address] [facility] [id number] [address] [place] [phone] Jan, [facility] [address] [facility] [id number] [address] [place] [phone] Nov, IMMUNIZATIONS No Known Immunizations SOCIAL HISTORY [...] laser treatment for glaucoma Hospitalization History [facility] [place]- Right side and back pain related to fall, hurts to breathe (ED at 7 pm) 06/07/2017 Hospitalization History [facility] Duarte [place]- Anxiety ( went to ED at 1200) 06/07/2017 Hospitalization History COPD exacerbation - Gerald Pizano 2017 Hospitalization History Blood clot, port placement - Gerald Pizano 09/2017
--- OUTSIDE RECORDS SUMMARY | 2019-09-01 14:20 | XMS REPORT ---
Author Author RADHA Sophianaren OLIVA [facility] Address [address] [place] [address] Care Team Providers Care Strategic Manager Name Role Phone RADHAKATHARINEHAZEL Unavailable PROBLEMS Type Condition ICD9-CM Code YEH62-NN Code Onset Dates Condition S tatus SNOMED Code Problem Generalized abdominal pain R10.84 Act sree 151265328 Problem Anxiety F41.9 Active 31266523 Problem Proteinuria R80.9 Active 67419319 Problem Hyperlipidemia, unspecified hyperlipidemia E78.5 Active 37141457 Problem Essential hypertension I10 Active 07103874 Problem Venous insufficiency I87.2 Active 18983117 Problem Type 2 diabetes mellitus without complication E11. 9 Active 21489424 Problem Pneumonia due to infectious organism, unspecified laterality, unspecified part of lung J18.9 Active 312 392272 Problem Major depressive disorder, recurrent episode, un specified severity F33.9 Active 27896841 Problem Acute cystitis with hematuria N30.01 Active 50152967 Problem Sciatica, unspecified laterality M54.30 Active 55685207 Problem Carpal tunnel syndrome, right upper limb G56.01 Active 02225117 Problem Chronic pain syndrome G89.4 Active 129834236 Problem Port catheter in place Z95.828 Active 850590446 Problem History of small bowel obstruction Z87.19 Active 457807026 Problem Chronic pancreatitis, unspecified pancreatitis type K86.1 Active 310429679 Problem Presence of IVC filter Z95.828 Active 912100690 Problem Vitamin D deficiency E55.9 Active 97458634 Problem Gastroesophageal reflux disease, esophagitis pre sence not specified K21.9 Active 582675783 Problem Exacerbation of systemic lupus M32.9 Active 06279593 Problem Hypothyroidism, unspecified type E03.9 Active 57646232 Problem Nausea R11.0 Active 660675342 Problem Gastroesophageal reflux disease without esophagitis K21.9 Active 721323052 Problem Tobacco abuse counseling Z71.6 Activ e 28723402 Problem Hypertension, benign I10 Active 64954204 Problem Chronic obstructive pulmonary disease, unspecified COPD ty pe J44.9 Active 08653441 Problem Other iron deficiency anemia D50.8 A ctive 98317566 Problem Obstructive sleep apnea G47.33 Active 63987913 Problem History of pulmonary embolism Z86.711 Active 829846360 Problem 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 A ctive 331545361 Problem Opiate dependence, continuous F11.20 Active 129198962 Problem Cannabis abuse with physiological dependence F12.1 0 Active 12829325 Problem Violation of controlled substance agreement Z91.14 Active 853860361 ALLERGIES No Information ENCOUNTERS Encounter Location Date Diagnosis [place] [address] [id number] 17 Jul, 2019 Essential hypertension I10 ; Type 2 diabetes mellitus without complication E11.9 and Other iron deficiency anemia D50.8 [place] [address] [address] Jul, [place] [address] [address] May, [place] [address] [address] Apr, Tobacco abuse Z72.0 ; Hypert ension, benign I10 and Tobacco abuse counseling Z71.6 [place] [address] [address] [place] [id number] [address] [place] [address] Sep, [place] [id number] [place] [address] Sep, [place] [address] [address] [place] [id number] [address] [place] [address] Sep, Essential hypertension I10 [place] [address] [place] [id number] [place] [address] Sep, [place] [address] [place] [id number] [address] [place] [address] Sep, [place] [address] [place] [id number] [address] [place] [address] Sep, Neck mass R22.1 [facility] [address] [facility] [place] [place] [id number] [address] [place] [address] August, Neck mass R22.1 [facility] [address] [facility] [place] [id number] [address] [place] [address] Feb, Left foot pain M79.672 [facility] [address] [place] [id number] [address] [place] [address] Jun, Chronic pain syndrome G89.4 [facility] [address] [place] [id number] [place] [id number] May, [facility] [address] [facility] [place] [id number] [address] [place] [address] May, [facility] [address] [facility] [place] [id number] [address] [place] [address] May, Chronic pain syndrome G89.4 [facility] [address] [place] [id number] [address] [place] [address] May, [facility] [address] [facility] [place] [id number] [address] [place] [address] 10 May, 2017 Encounter for immunization Z 23 and Laceration of left index finger without foreign body without damage to nail, initial encounter S61.211A [facility] [address] [place] [id number] [address] [place] [address] 09 May, 2017 Chronic pain syndrome G89.4 [facility] [address] [facility] [place] [id number] [address] [place] [address] May, [facility] [address] [address] Apr, Cannabis abuse with physiolo gical dependence F12.10 ; Violation of controlled substance agreement Z91.14 and Opiate dependence, continuous F11.20 [facility] [address] [place] [id number] [address] [place] [address] Apr, Type 2 diabetes mellitus wit hout complication E11.9 [facility] [address] [facility] [place] [id number] [address] [place] [address] Apr, [facility] [address] [facility] [place] [id number] [address] [place] [address] Apr, Chronic pain syndrome G89.4 [facility] [address] [facility] [place] [id number] [address] [place] [address] Apr, Viral syndrome B34.9 [facility] [address] [facility] [place] [id number] [address] [place] [address] Apr, [facility] [address] [facility] [place] [id number] [address] [place] [address] Mar, Chronic pain syndrome G89.4 [place] [address] [address] [place] [id number] [address] [place] [address] Mar, [facility] [address] [place] [id number] [address] [place] [address] Mar, [facility] [address] [place] [id number] [address] [place] [address] Feb, Essential hypertension I10 ; Chronic pain syndrome G89.4 ; Hyperlipidemia, unspecified hyperlipidemia E78.5 ; 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 and Encounter for immunization Z23 [facility] [address] [place] [id number] [address] [place] [address] Feb, Chronic pain syndrome G89.4 [facility] [address] [facility] [place] [id number] [address] [place] [address] Jan, Chronic pain syndrome G89.4 [facility] [address] [facility] [place] [id number] [address] [place] [address] Jan, [facility] [address] [place] [id number] [address] [place] [address] Jan, Bronchitis J40 ; Port cathet er in place Z95.828 and Chronic pain syndrome G89.4 [facility] [address] [place] [id number] [place] [id number] Jan, [facility] [address] [id number] [address] [place] [address] Dec, Chronic pain syndrome G89.4 [facility] [address] [id number] [address] [place] [address] Dec, Chronic pain syndrome G89.4 [facility] [address] [id number] [address] [place] [address] Dec, [facility] [address] [id number] [address] [place] [address] Nov, [facility] [address] [id number] [address] [place] [address] Nov, Chronic pain syndrome G89.4 [facility] [address] [id number] [address] [place] [address] Oct, Chronic pain syndrome G89.4 [facility] [address] [id number] [address] [place] [address] Oct, [facility] [address] [id number] [address] [place] [address] Sep, Chronic pain syndrome G89.4 [facility] [address] [id number] [address] [place] [address] Sep, Exacerbation of systemic lup us M32.9 [facility] [address] [id number] [address] [place] [address] Sep, [facility] [address] [id number] [address] [place] [address] Sep, [facility] [address] [id number] [address] [place] [address] Sep, Nausea R11.0 [facility] [address] [id number] [address] [place] [address] August, Chronic pain syndrome G89.4 [facility] [address] [place] [id number] [address] [place] [address] August, [place] [address] [address] [place] [id number] [address] [place] [address] August, Chronic pain syndrome G89.4 [place] [address] [address] [place] [id number] [address] [place] [address] Jul, Pneumonia due to infectious organism, unspecified laterality, unspecified part of lung J18.9 and Tobacco abuse counseling Z71.6 [place] [address] [address] [place] [id number] [address] [place] [address] Jul, Chronic pain syndrome G89.4 [place] [address] [address] [place] [id number] [place] [address] Jun, Essential hypertension I10 [place] [address] [address] Jun, Pneumonia due to infectious organism, unspecified laterality, unspecified part of lung J18.9 [place] [address] [address] [place] [id number] [address] [place] [address] Jun, Chronic pain syndrome G89.4 [place] [address] [place] [id number] [place] [address] May, Essential hypertension I10 ; Type 2 [...] and Gastroesophageal reflux disease without esophagitis K21.9 [place] [address] [address] [place] [id number] [address] [place] [address] Apr, [place] [address] [address] Apr, Pneumonia due to infectious organism, unspecified laterality, unspecified part of lung J18.9 and Nausea R11.0 [place] [address] [place] [id number] [address] [place] [address] Apr, Essential hypertension I10 ; Chronic pain syndrome G89.4 ; Type 2 diabetes mellitus without complication E11.9 ; Hyperlipidemia, unspecified hyperlipidemia E78.5 ; Major depressive disorder, recurrent episode, unspecified severity F33.9 ; Sciatica, unspecified laterality M54.30 ; Chronic obstructive pulmonary disease, unspecified COPD type J44.9 ; Pneumonia due to infectious organism, unspecified laterality, unspecified part of lung J18.9 and Nausea R11.0 [facility] [address] [address] Mar, [place] [address] [address] Mar, [place] [address] [address] Mar, [place] [address] [place] [id number] [address] [place] [address] Mar, Anxiety F41.9 and Major depr essive disorder, recurrent episode, unspecified severity F33.9 [place] [address] [place] [id number] [address] [place] [address] Mar, [place] [address] [place] [id number] [address] [place] [address] Mar, [place] [address] [place] [id number] [address] [place] [address] Mar, Generalized abdominal pain R 10.84 ; Acute cystitis with hematuria N30.01 and Essential hypertension I10 [facility] IN [facility] [address] [place] [id number] [address] [place] [address] Mar, Sore throat J02.9 and Exacer bation of systemic lupus M32.9 [place] [address] [address] [place] [id number] [address] [place] [address] Feb, Type 2 diabetes mellitus wit hout [...] reflux disease, esophagitis presence not specified K21.9 [place] [address] [address] Feb, [place] [address] [address] Jan, [facility] IN [place] [address] [address] Jan, Right arm pain M79.[address] of right wrist, initial encounter S66.911A [place] [address] [address] Jan, [facility] IN [place] [address] [address] Dec, Generalized abdominal pain R 10.84 [place] [address] [address] Dec, Adenopathy R59.1 [place] [address] [address] 19 Dec, 2015 Bronchitis J40 [place] [address] [address] 14 Dec, 2015 [place] [address] [address] Dec, Essential hypertension I10 [place] [address] [address] Nov, [place] [address] [place] [id number] [address] [place] [address] Nov, [place] [address] [address] Nov, Essential hypertension I10 ; Hyperlipidemia, unspecified [...] Type 2 diabetes mellitus without complication E11.[address] [address] Nov, [place] [address] [address] Oct, Type 2 diabetes mellitus wit hout complication E11.9 ; Essential hypertension I10 ; Other viral warts B07.8 ; [place] or callus L84 and Hyperlipidemia, unspecified hyperlipidemia E78.5 [place] [address] [place] [id number] [address] [place] [address] Sep, [place] [address] [place] [id number] [address] [place] [address] Sep, [place] [address] [place] [id number] [address] [place] [address] Jun, [place] [address] [address] Jun, [place] [address] [place] [id number] [address] [place] [address] May, [place] [address] [place] [address] Apr, [facility] [address] [id number] [address] [place] [address] Feb, [facility] [address] [facility] [place] [place] [id number] [address] [place] [address] Feb, COPD exacerbation J44.1 and Acute upper respiratory infection J06.9 [facility] [address] [id number] [address] [place] [address] Feb, [facility] [address] [id number] [address] [place] [address] Feb, [facility] [address] [id number] [address] [place] [address] Feb, [facility] [address] [facility] [place] [id number] [address] [place] [address] Feb, [facility] [address] [facility] [place] [id number] [address] [place] [address] Jan, Left hip pain M25.552 [facility] [address] [id number] [address] [place] [address] Jan, Essential hypertension I10 ; Chronic pain syndrome G89.4 ; Type 2 diabetes mellitus without complication E11.9 and Hyperlipidemia, unspecified hyperlipidemia E78.5 [facility] [address] [id number] [address] [place] [address] Jul, [facility] [address] [id number] [address] [place] [address] Jul, [facility] [address] [id number] [address] [place] [address] Jul, [facility] [address] [facility] [place] [place] [id number] [address] [place] [address] Jun, [facility] [address] [id number] [address] [place] [address] Jun, [facility] [place] [facility] [address] [id number] [address] [place] [address], [place] [address] 24 Jun, 2014 [facility] [address] [id number] [address] [place] [address], [place] [address] 20 Jun, 2014 [facility] [address] [id number] [address] [place] [address], [place] [address] 20 Jun, 2014 [facility] [address] [id number] [address] [place] [address], [place] [address] 20 Jun, 2014 [facility] [address] [id number] [address] [place] [address], [place] [address] 20 Jun, 2014 [facility] [address] [id number] [address] [place] [address], [place] [address] 19 Jun, 2014 [facility] [address] [id number] [address] [place] [address], [place] [address] 18 Jun, 2014 [facility] [address] [id number] [address] [place] [address], [place] [address] 18 Jun, 2014 [facility] [place] [facility] [address] [id number] [address] [place] [address], [place] [address] Jun, [facility] [address] [id number] [address] [place] [address], [place] [address] Jun, [facility] [address] [id number] [address] [place] [address], [place] [address] Apr, [facility] [address] [id number] [address] [place] [address], [place] [address] Apr, [facility] [address] [id number] [address] [place] [address], [place] [address] Apr, [facility] [address] [id number] [address] [place] [address], [place] [address] Apr, [facility] [address] [id number] [address] [place] [address], [place] [address] Apr, [facility] [address] [id number] [address] [place] [address], [place] [address] Apr, [facility] [address] [id number] [address] [place] [address], [place] [address] Apr, [facility] [address] [id number] [address] [place] [address], [place] [address] Apr, [facility] [address] [id number] [address] [place] [address], [place] [address] Mar, [facility] [address] [id number] [address] [place] [address], [place] [address] Mar, [facility] [address] [id number] [address] [place] [address], [place] [address] Mar, [facility] [address] [id number] [address] [place] [address], [place] [address] Mar, [facility] [address] [id number] [address] [place] [address], [place] [address] Mar, [facility] [address] [id number] [address] [place] [address], [place] [address] 18 Mar, 2014 [facility] [address] [id number] [address] [place] [address], [place] [address] 15 Mar, 2014 [facility] [address] [id number] [address] [place] [address], [place] [address] Mar, [facility] [address] [id number] [address] [place] [address], [place] [address] Mar, [facility] [address] [id number] [address] [place] [address], [place] [address] 08 Mar, 2014 [facility] [address] [id number] [address] [place] [address], [place] [address] Mar, [facility] [place] [facility] [address] [id number] [address] [place] [address], [place] [address] 05 Mar, 2014 [facility] [address] [id number] [address] [place] [address], [place] [address] 05 Mar, 2014 [facility] [address] [id number] [address] [place] [address], [place] [address] Feb, [facility] [place] [facility] [address] [id number] [address] [place] [address], [place] [address] Feb, [facility] [place] [facility] [address] [id number] [address] [place] [address], [place] [address] Feb, [facility] [place] [facility] [address] [id number] [address] [place] [address], [place] [address] Feb, [facility] [place] [facility] [address] [id number] [address] [place] [address], [place] [address] Feb, [facility] [place] [facility] [address] [id number] [address] [place] [address], [place] [address] Feb, [facility] [place] [facility] [address] [id number] [address] [place] [address], [place] [address] Feb, [facility] [place] [facility] [address] [id number] [address] [place] [address], [place] [address] Feb, [facility] [place] [facility] [address] [id number] [address] [place] [address], [place] [address] Jan, [facility] [address] [id number] [address] [place] [address], [place] [address] Jan, [facility] [address] [id number] [address] [place] [address], [place] [address] Jan, [facility] [address] [id number] [address] [place] [address], [place] [address] Jan, [facility] [address] [id number] [address] [place] [address], [place] [address] Jan, [facility] [address] [id number] [address] [place] [address], [place] [address] Jan, [facility] [address] [id number] [address] [place] [address], [place] [address] Jan, [facility] [address] [id number] [address] [place] [address], [place] [address] Jan, [facility] [address] [id number] [facility] [place] [id number] 20 Jan, 2014 [facility] [address] [id number] [facility] [address] 30 Dec, 2013 [facility] [address] [id number] [facility] [address] 30 Dec, 2013 [facility] [address] [id number] [address] [place] [address], [place] [address] 26 Dec, 2013 [facility] [address] [id number] [address] [place] [address], [place] [address] 26 Dec, 2013 [facility] [address] [id number] [address] [place] [address], [place] [id number] 16 Dec, 2013 [facility] [address] [id number] [address] [place] [address], [place] [id number] 16 Dec, 2013 [facility] [address] [id number] [address] [place] [address], [place] [id number] 08 Dec, 2013 [facility] [address] [id number] [address] [place] [address], [place] [id number] 08 Dec, 2013 [facility] [address] [id number] [address] [place] [address], [place] [address] 04 Dec, 2013 [facility] [address] [id number] [address] [place] [address], [place] [address] Dec, 2013 [facility] [address] [id number] [address] [place] [address], [place] [address] Nov, [facility] [address] [id number] [address] [place] [address], [place] [address] Nov, [facility] [address] [id number] [address] [place] [address], [place] [address] Nov, [facility] [address] [id number] [address] [place] [address], [place] [address] Nov, [facility] [address] [id number] [address] [place] [address], [place] [address] Nov, [facility] [address] [id number] [address] [place] [address] Nov, [facility] [address] [id number] [address] [place] [address], [place] [address] Nov, [facility] [address] [id number] [address] [place] [address], [place] [address] Nov, [facility] [address] [id number] [address] [place] [address], [place] [address] Nov, [facility] [address] [id number] [address] [place] [address], [place] [address] Nov, [facility] [address] [id number] [address] [place] [address], [place] [address] Nov, [facility] [address] [id number] [address] [place] [address], [place] [address] Nov, [facility] [address] [id number] [address] [place] [address], [place] [address] Nov, [facility] [address] [id number] [address] [place] [address], [place] [address] Oct, [facility] [address] [id number] [address] [place] [address], [place] [address] Oct, [facility] [address] [id number] [address] [place] [address], [place] [address] Oct, [facility] [address] [id number] [address] [place] [address], [place] [address] Oct, [facility] [address] [id number] [address] [place] [address], [place] [address] Oct, [facility] [address] [id number] [address] [place] [address], [place] [address] Oct, [facility] [address] [id number] [address] [place] [address], [place] [address] Sep, [facility] [address] [id number] [facility] [address] Sep, [facility] [address] [id number] [address] [place] [address], [place] [address] Sep, [facility] [address] [id number] [address] [place] [address], [place] [address] Sep, [facility] [address] [id number] [address] [place] [address], [place] [address] Sep, [facility] [address] [id number] [address] [place] [address], [place] [address] Sep, [facility] [address] [id number] [address] [place] [address], [place] [address] Sep, [facility] [address] [id number] [address] [place] [address], [place] [address] Sep, [facility] [address] [id number] [address] [place] [address], [place] [address] Sep, [facility] [address] [id number] [address] [place] [address], [place] [address] Sep, [facility] [address] [id number] [address] [place] [address], [place] [address] Sep, [facility] [address] [id number] [address] [place] [address], [place] [address] Sep, [facility] [address] [id number] [address] [place] [address], [place] [address] August, [facility] [address] [id number] [address] [place] [address], [place] [address] August, [facility] [address] [id number] [address] [place] [address], [place] [address] Jul, [facility] [address] [id number] [address] [place] [address], [place] [address] Jul, [facility] [address] [id number] [address] [place] [address], [place] [address] Jul, [facility] [address] [id number] [facility] [place] [address] 24 Jul, 2013 [facility] [address] [id number] [facility] [place] [address] Jul, [facility] [address] [id number] [facility] [place] [address] Jul, [facility] [address] [id number] [address] [place] [address], [place] [address] Jul, [facility] [address] [id number] [facility] [place] [address] 16 Jul, 2013 [facility] [address] [id number] [address] [place] [address], [place] [address] Jul, [facility] [address] [id number] [address] [place] [address], [place] [address] Jul, [facility] [address] [id number] [address] [place] [address], [place] [address] Jul, [facility] [address] [id number] [address] [place] [address], [place] [address] 31 Jun, 2013 [facility] [address] [id number] [address] [place] [address], [place] [address] 31 Jun, 2013 [facility] [address] [id number] [address] [place] [address], [place] [address] 28 Jun, 2013 [facility] [address] [id number] [address] [place] [address], [place] [address] 28 Jun, 2013 [facility] [address] [id number] [address] [place] [address], [place] [address] Jun, [facility] [address] [id number] [address] [place] [address], [place] [address] Jun, [facility] [address] [id number] [address] [place] [address], [place] [address] 25 Jun, 2013 [facility] [address] [id number] [address] [place] [address], [place] [address] Jun, [facility] [address] [id number] [address] [place] [address], [place] [address] May, [facility] [address] [id number] [address] [place] [address], [place] [address] May, [facility] [address] [id number] [address] [place] [address], [place] [address] May, [facility] [address] [id number] [address] [place] [address], [place] [address] May, [facility] [address] [id number] [address] [place] [address], [place] [address] May, [facility] [address] [id number] [address] [place] [address], [place] [address] May, [facility] [address] [id number] [address] [place] [address], [place] [address] May, [facility] [address] [id number] [address] [place] [address], [place] [address] May, [facility] [address] [id number] [address] [place] [address], [place] [address] May, [facility] [address] [id number] [address] [place] [address], [place] [address] May, [facility] [address] [id number] [address] [place] [address], [place] [address] May, [facility] [address] [id number] [address] [place] [address], [place] [address] May, [facility] [address] [id number] [address] [place] [address], [place] [address] May, [facility] [address] [id number] [address] [place] [address], [place] [address] Apr, [facility] [address] [id number] [address] [place] [address], [place] [address] Apr, [facility] [address] [id number] [address] [place] [address], [place] [address] Apr, [facility] [address] [id number] [address] [place] [address], [place] [address] Apr, [facility] [address] [id number] [address] [place] [address], [place] [address] Apr, [facility] [address] [id number] [address] [place] [address], [place] [address] Apr, [facility] [address] [id number] [address] [place] [address], [place] [address] Apr, [facility] [address] [id number] [address] [place] [address], [place] [address] Apr, [facility] [address] [id number] [address] [place] [address], [place] [address] Apr, [facility] [address] [id number] [address] [place] [address], [place] [address] Apr, [facility] [address] [id number] [address] [place] [address], [place] [address] Apr, [facility] [address] [id number] [address] [place] [address], [place] [address] Apr, [facility] [address] [id number] [address] [place] [address], [place] [address] Apr, [facility] [address] [id number] [address] [place] [address], [place] [address] Apr, [facility] [address] [id number] [address] [place] [address], [place] [address] Apr, [facility] [address] [id number] [address] [place] [address], [place] [address] Mar, [facility] [address] [id number] [address] [place] [address], [place] [address] Mar, [facility] [address] [id number] [address] [place] [address], [place] [address] Mar, [facility] [address] [id number] [address] [place] [address], [place] [address] Mar, [facility] [address] [id number] [address] [place] [address], [place] [address] Mar, [facility] [address] [id number] [address] [place] [address], [place] [address] Mar, [facility] [address] [id number] [address] [place] [address], [place] [address] 17 Mar, 2013 [facility] [address] [id number] [address] [place] [address], [place] [address] 17 Mar, 2013 [facility] [address] [id number] [address] [place] [address], [place] [address] Mar, [facility] [address] [id number] [address] [place] [address], [place] [address] Mar, [facility] [address] [id number] [address] [place] [address], [place] [address] Mar, [facility] [address] [id number] [address] [place] [address], [place] [address] Mar, [facility] [address] [id number] [address] [place] [address], [place] [address] Feb, [facility] [address] [id number] [address] [place] [address], [place] [address] Feb, [facility] [address] [id number] [address] [place] [address], [place] [address] Feb, [facility] [address] [id number] [address] [place] [address], [place] [address] Feb, [facility] [address] [id number] [address] [place] [address], [place] [address] Feb, [facility] [address] [id number] [address] [place] [address], [place] [address] 08 Feb, 2013 [facility] [address] [id number] [address] [place] [address], [place] [address] Feb, [facility] [address] [id number] [address] [place] [address], [place] [address] Feb, [facility] [address] [id number] [address] [place] [address], [place] [address] Jan, [facility] [address] [id number] [address] [place] [address], [place] [address] Jan, [facility] [address] [id number] [address] [place] [address], [place] [address] Jan, [facility] [address] [id number] [address] [place] [address], [place] [address] Jan, [facility] [address] [id number] [address] [place] [address], [place] [address] Jan, [facility] [address] [id number] [address] [place] [address], [place] [address] Jan, [facility] [address] [id number] [address] [place] [address], [place] [address] Jan, [facility] [address] [id number] [address] [place] [address], [place] [address] Dec, [facility] [address] [id number] [address] [place] [address], [place] [address] Dec, [facility] [address] [id number] [address] [place] [address], [place] [address] Dec, [facility] [address] [id number] [address] [place] [address], [place] [address] Dec, [facility] [address] [id number] [address] [place] [address], [place] [address] Dec, [facility] [address] [id number] [address] [place] [address], [place] [address] Nov, [facility] [address] [id number] [address] [place] [address], [place] [address] Nov, [facility] [address] [id number] [address] [place] [address], [place] [address] Nov, [facility] [address] [id number] [address] [place] [address], [place] [address] Nov, [facility] [address] [id number] [address] [place] [address], [place] [address] Nov, [facility] [address] [id number] [address] [place] [address], [place] [address] Nov, [facility] [address] [id number] [address] [place] [address], [place] [address] Nov, [facility] [address] [id number] [address] [place] [address], [place] [address] Oct, [facility] [address] [id number] [address] [place] [address], [place] [address] Oct, [facility] [address] [id number] [address] [place] [address], [place] [address] Oct, [facility] [address] [id number] [address] [place] [address], [place] [address] Oct, [facility] [address] [id number] [address] [place] [address], [place] [address] Oct, [facility] [address] [id number] [address] [place] [address], [place] [address] Oct, [facility] [address] [id number] [address] [place] [address], [place] [address] Oct, [facility] [address] [id number] [address] [place] [address], [place] [address] Oct, [facility] [address] [id number] [address] [place] [address], [place] [address] Sep, [facility] [address] [id number] [address] [place] [address], [place] [address] Sep, [facility] [address] [id number] [address] [place] [address], [place] [address] 13 Sep, 2012 [facility] [address] [id number] [address] [place] [address], [place] [address] 12 Sep, 2012 [facility] [address] [id number] [address] [place] [address], [place] [address] Sep, [facility] [address] [id number] [address] [place] [address], [place] [address] Sep, [facility] [address] [id number] [address] [place] [address], [place] [address] August, [facility] [address] [id number] [address] [place] [address], [place] [address] August, [facility] [address] [id number] [address] [place] [address], [place] [address] August, [facility] [address] [id number] [address] [place] [address], [place] [address] August, [facility] [address] [id number] [address] [place] [address], [place] [address] August, [facility] [address] [id number] [address] [place] [address], [place] [address] Jul, [facility] [address] [id number] [address] [place] [address], [place] [address] Jul, [facility] [address] [id number] [address] [place] [address], [place] [address] 24 Jul, 2012 [facility] [address] [id number] [address] [place] [address], [place] [address] 15 Jul, 2012 [facility] [address] [id number] [address] [place] [address], [place] [address] Jul, [facility] [address] [id number] [address] [place] [address], [place] [address] 05 Jul, 2012 [facility] [address] [id number] [address] [place] [address], [place] [address] 14 Jun, 2012 [facility] [address] [id number] [address] [place] [address], [place] [address] 13 Jun, 2012 [facility] [address] [id number] [address] [place] [address], [place] [address] 07 Jun, 2012 [facility] [address] [id number] [address] [place] [address], [place] [address] 07 Jun, 2012 [facility] [address] [id number] [address] [place] [address], [place] [address] 05 Jun, 2012 [facility] [address] [id number] [address] [place] [address], [place] [address] 19 May, 2012 [facility] [address] [id number] [address] [place] [address], [place] [address] 13 May, 2012 [facility] [address] [id number] [address] [place] [address], [place] [address] May, [facility] [address] [id number] [address] [place] [address], [place] [address] Apr, [facility] [address] [id number] [address] [place] [address], [place] [address] Apr, [facility] [address] [id number] [address] [place] [address], [place] [address] Mar, [facility] [address] [id number] [address] [place] [address], [place] [address] 26 Mar, 2012 [facility] [address] [id number] [address] [place] [address], [place] [address] 19 Mar, 2012 [facility] [address] [id number] [address] [place] [address], [place] [address] 17 Mar, 2012 [facility] [address] [id number] [address] [place] [address], [place] [address] 17 Mar, 2012 [facility] [address] [id number] [address] [place] [address], [place] [address] 13 Mar, 2012 [facility] [address] [id number] [address] [place] [address] Feb, [facility] [address] [id number] [address] [place] [address], [place] [address] Feb, [facility] [address] [id number] [address] [place] [address] Feb, [facility] [address] [id number] [address] [place] [address], [place] [address] Jan, [facility] [address] [id number] [address] [place] [address], [place] [address] 29 Jan, 2012 [facility] [address] [id number] [address] [place] [address], [place] [address] Jan, [facility] [address] [id number] [address] [place] [address], [place] [address] Jan, [facility] [address] [id number] [address] [place] [address], [place] [address] 24 Jan, 2012 [facility] [address] [id number] [address] [place] [address], [place] [address] Jan, [facility] [address] [id number] [address] [place] [address], [place] [address] 17 Jan, 2012 [facility] [address] [id number] [address] [place] [address], [place] [address] 16 Jan, 2012 [facility] [address] [id number] [address] [place] [address], [place] [address] 16 Jan, 2012 [facility] [address] [id number] [address] [place] [address], [place] [address] 18 Dec, 2011 [facility] [address] [id number] [address] [place] [address], [place] [address] 13 Dec, 2011 [facility] [address] [id number] [address] [place] [address], [place] [address] 11 Dec, 2011 [facility] [address] [id number] [address] [place] [address], [place] [address] Nov, [facility] [address] [id number] [facility] [place] [address] 17 Nov, 2011 [facility] [address] [id number] [address] [place] [address], [place] [address] Nov, [facility] [address] [id number] [address] [place] [address], [place] [address] Oct, [facility] [address] [id number] [address] [place] [address], [place] [address] Oct, [facility] [address] [id number] [address] [place] [address], [place] [address] Sep, [facility] [address] [id number] [address] [place] [address], [place] [address] Sep, [facility] [address] [id number] [address] [place] [address], [place] [address] Sep, [facility] [address] [id number] [address] [place] [address], [place] [address] Sep, [facility] [address] [id number] [address] [place] [address], [place] [address] Sep, [facility] [address] [id number] [address] [place] [address], [place] [address] August, [facility] [address] [id number] [address] [place] [address], [place] [address] August, [facility] [address] [id number] [address] [place] [address], [place] [address] August, [facility] [address] [id number] [address] [place] [address], [place] [address] August, [facility] [address] [id number] [address] [place] [address], [place] [address] August, [facility] [address] [id number] [address] [place] [address], [place] [address] August, [facility] [address] [id number] [address] [place] [address], [place] [address] August, [facility] [address] [id number] [address] [place] [address], [place] [address] August, [facility] [address] [id number] [address] [place] [address], [place] [address] August, [facility] [address] [id number] [address] [place] [address], [place] [address] 27 Jul, 2011 [facility] [address] [id number] [address] [place] [address], [place] [address] Jul, [facility] [address] [id number] [address] [place] [address], [place] [address] 10 Jul, 2011 [facility] [address] [id number] [address] [place] [address], [place] [address] 04 Jul, 2011 [facility] [address] [id number] [address] [place] [address], [place] [address] 27 Jun, 2011 [facility] [address] [id number] [address] [place] [address], [place] [address] 13 Jun, 2011 [facility] [address] [id number] [address] [place] [address], [place] [address] 13 Jun, 2011 [facility] [address] [id number] [address] [place] [address], [place] [address] 27 May, 2011 [facility] [address] [id number] [address] [place] [address], [place] [address] 24 May, 2011 [facility] [address] [id number] [address] [place] [address], [place] [address] 20 May, 2011 [facility] [address] [id number] [address] [place] [address], [place] [address] 16 May, 2011 [facility] [address] [id number] [address] [place] [address], [place] [address] 15 May, 2011 [facility] [address] [id number] [address] [place] [address], [place] [address] 14 May, 2011 [facility] [address] [id number] [address] [place] [address], [place] [address] 10 May, 2011 [facility] [address] [id number] [address] [place] [address], [place] [address] May, [facility] [address] [id number] [address] [place] [address], [place] [address] May, [facility] [address] [id number] [address] [place] [address], [place] [address] Apr, [facility] [address] [id number] [address] [place] [address], [place] [address] Apr, [facility] [address] [id number] [address] [place] [address], [place] [address] Apr, [facility] [address] [id number] [address] [place] [address], [place] [address] Apr, [facility] [address] [id number] [address] [place] [address], [place] [address] Apr, [facility] [address] [id number] [address] [place] [address], [place] [address] Apr, [facility] [address] [id number] [address] [place] [address], [place] [address] Apr, [facility] [address] [id number] [address] [place] [address], [place] [address] Apr, [facility] [address] [id number] [address] [place] [address], [place] [address] Apr, [facility] [address] [id number] [address] [place] [address], [place] [id number] Apr, [facility] [address] [id number] [address] [place] [address], [place] [id number] Apr, [facility] [address] [id number] [address] [place] [address], [place] [id number] Mar, [facility] [address] [id number] [address] [place] [address] [address] Mar, [facility] [address] [facility] [place] [id number] [address] [place] [phone] Mar, [facility] [address] [facility] [place] [id number] [address] [place] [phone] Mar, [facility] [address] [facility] [place] [id number] [address] [place] [id number] Feb, [facility] [address] [facility] [place] [id number] [address] [place] [id number] Feb, [facility] [address] [facility] [place] [id number] [address] [place] [phone] Jan, [facility] [address] [facility] [place] [id number] [address] [place] [id number] Nov, IMMUNIZATIONS No Known Immunizations SOCIAL HISTORY Never Assessed REASON FOR VISIT PLAN OF CARE VITAL SIGNS MEDICATIONS No Known Medications RESULTS No Results PROCEDURES No Known [...] laser treatment for glaucoma Hospitalization History [facility] [place]- Right side and back pain related to fall, hurts to breathe (ED at 7 pm) 06/07/2017 Hospitalization History [facility] [place]- Anxiety ( went to ED at 1200) 06/07/2017 Hospitalization History COPD exacerbation - Gerald Pizano 2017 Hospitalization History Blood clot, port placement - Gerald Pizano 09/2017
--- OUTSIDE RECORDS SUMMARY | 2019-09-01 14:21 | XMS REPORT ---
Author Author RADHA Sophianaren OLIVA [facility] Address [address] [place] [address] Care Team Providers Care Athletic Coach Name Role Phone RADHAKATHARINEHAZEL Unavailable PROBLEMS Type Condition ICD9-CM Code BZU57-CS Code Onset Dates Condition S tatus SNOMED Code Problem Generalized abdominal pain R10.84 Act sree 533235522 Problem Anxiety F41.9 Active 24580174 Problem Proteinuria R80.9 Active 92340798 Problem Hyperlipidemia, unspecified hyperlipidemia E78.5 Active 53266137 Problem Essential hypertension I10 Active 91307563 Problem Venous insufficiency I87.2 Active 24147003 Problem Type 2 diabetes mellitus without complication E11. 9 Active 44600780 Problem Pneumonia due to infectious organism, unspecified laterality, unspecified part of lung J18.9 Active 312 150911 Problem Major depressive disorder, recurrent episode, un specified severity F33.9 Active 84721002 Problem Acute cystitis with hematuria N30.01 Active 00715243 Problem Sciatica, unspecified laterality M54.30 Active 10162457 Problem Carpal tunnel syndrome, right upper limb G56.01 Active 22064855 Problem Chronic pain syndrome G89.4 Active 326003998 Problem Port catheter in place Z95.828 Active 841872583 Problem History of small bowel obstruction Z87.19 Active 560459011 Problem Chronic pancreatitis, unspecified pancreatitis type K86.1 Active 272817256 Problem Presence of IVC filter Z95.828 Active 003602528 Problem Vitamin D deficiency E55.9 Active 12714408 Problem Gastroesophageal reflux disease, esophagitis pre sence not specified K21.9 Active 807104161 Problem Exacerbation of systemic lupus M32.9 Active 30204573 Problem Hypothyroidism, unspecified type E03.9 Active 10305601 Problem Nausea R11.0 Active 574591600 Problem Gastroesophageal reflux disease without esophagitis K21.9 Active 089663245 Problem Tobacco abuse counseling Z71.6 Activ e 22762680 Problem Hypertension, benign I10 Active 37136469 Problem Chronic obstructive pulmonary disease, unspecified COPD ty pe J44.9 Active 07065882 Problem Other iron deficiency anemia D50.8 A ctive 97778800 Problem Obstructive sleep apnea G47.33 Active 77690140 Problem History of pulmonary embolism Z86.711 Active 872916266 Problem 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 A ctive 462426670 Problem Opiate dependence, continuous F11.20 Active 263744217 Problem Cannabis abuse with physiological dependence F12.1 0 Active 25122199 Problem Violation of controlled substance agreement Z91.14 Active 368564728 ALLERGIES No Information ENCOUNTERS Encounter Location Date Diagnosis [place] [address] [address] 17 Jul, 2019 Essential hypertension I10 ; Type 2 diabetes mellitus without complication E11.9 and Other iron deficiency anemia D50.8 [place] [address] [address] Jul, [place] [address] [address] May, [place] [address] [address] Apr, Tobacco abuse Z72.0 ; Hypert ension, benign I10 and Tobacco abuse counseling Z71.6 [place] [address] [place] [id number] [address] [place] [address] Sep, [place] [id number] [place] [address] Sep, [place] [address] [place] [id number] [address] [place] [address] Sep, Essential hypertension I10 [place] [address] [place] [id number] [place] [address] Sep, [place] [address] [place] [id number] [address] [place] [address] Sep, [place] [address] [place] [id number] [address] [place] [address] Sep, Neck mass R22.1 [facility] [address] [facility] [id number] [address] [place] [address] August, Neck mass R22.1 [facility] [address] [facility] [id number] [address] [place] [address] Feb, Left foot pain M79.672 [facility] [address] [place] [id number] [address] [place] [address] Jun, Chronic pain syndrome G89.4 [facility] [address] [place] [id number] [place] [id number] May, [facility] [address] [facility] [id number] [address] [place] [address] May, [facility] [address] [facility] [id number] [address] [place] [address] May, Chronic pain syndrome G89.4 [facility] [address] [place] [id number] [address] [place] [address] May, [facility] [address] [facility] [id number] [address] [place] [address] 10 May, 2017 Encounter for immunization Z 23 and Laceration of left index finger without foreign body without damage to nail, initial encounter S61.211A [facility] [address] [place] [id number] [address] [place] [address] 09 May, 2017 Chronic pain syndrome G89.4 [facility] [address] [facility] [id number] [address] [place] [address] May, [facility] [address] [address] Apr, Cannabis abuse with physiolo gical dependence F12.10 ; Violation of controlled substance agreement Z91.14 and Opiate dependence, continuous F11.20 [facility] [address] [place] [id number] [address] [place] [address] Apr, Type 2 diabetes mellitus wit hout complication E11.9 [facility] [address] [facility] [id number] [address] [place] [address] Apr, [facility] [address] [facility] [id number] [address] [place] [address] Apr, Chronic pain syndrome G89.4 [facility] [address] [facility] [id number] [address] [place] [address] Apr, Viral syndrome B34.9 [facility] [address] [facility] [id number] [address] [place] [address] Apr, [facility] [address] [facility] [id number] [address] [place] [address] Mar, Chronic pain syndrome G89.4 [place] [address] [place] [id number] [address] [place] [address] Mar, [facility] [address] [place] [id number] [address] [place] [address] Mar, [facility] [address] [place] [id number] [address] [place] [address] Feb, Essential hypertension I10 ; Chronic pain syndrome G89.4 ; Hyperlipidemia, unspecified hyperlipidemia E78.5 ; 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 and Encounter for immunization Z23 [facility] [address] [place] [id number] [address] [place] [address] Feb, Chronic pain syndrome G89.4 [facility] [address] [facility] [id number] [address] [place] [address] Jan, Chronic pain syndrome G89.4 [facility] [address] [facility] [id number] [address] [place] [address] Jan, [facility] [address] [place] [id number] [address] [place] [address] Jan, Bronchitis J40 ; Port cathet er in place Z95.828 and Chronic pain syndrome G89.4 [facility] [address] [place] [id number] [place] [id number] Jan, [facility] [address] [id number] [address] [place] [address] Dec, Chronic pain syndrome G89.4 [facility] [address] [id number] [address] [place] [address] Dec, Chronic pain syndrome G89.4 [facility] [address] [id number] [address] [place] [address] Dec, [facility] [address] [id number] [address] [place] [address] Nov, [facility] [address] [id number] [address] [place] [address] Nov, Chronic pain syndrome G89.4 [facility] [address] [id number] [address] [place] [address] Oct, Chronic pain syndrome G89.4 [facility] [address] [id number] [address] [place] [address] Oct, [facility] [address] [id number] [address] [place] [address] Sep, Chronic pain syndrome G89.4 [facility] [address] [id number] [address] [place] [address] Sep, Exacerbation of systemic lup us M32.9 [facility] [address] [id number] [address] [place] [address] Sep, [facility] [address] [id number] [address] [place] [phone] Sep, [facility] [address] [id number] [address] [place] [address] Sep, Nausea R11.0 [facility] [address] [id number] [address] [place] [address] August, Chronic pain syndrome G89.4 [facility] [address] [place] [id number] [address] [place] [address] August, [place] [address] [place] [id number] [address] [place] [address] August, Chronic pain syndrome G89.4 [place] [address] [place] [id number] [address] [place] [address] Jul, Pneumonia due to infectious organism, unspecified laterality, unspecified part of lung J18.9 and Tobacco abuse counseling Z71.6 [place] [address] [place] [id number] [address] [place] [address] Jul, Chronic pain syndrome G89.4 [place] [address] [place] [id number] [place] [address] Jun, Essential hypertension I10 [place] [address] [address] Jun, Pneumonia due to infectious organism, unspecified laterality, unspecified part of lung J18.9 [place] [address] [place] [id number] [address] [place] [address] Jun, Chronic pain syndrome G89.4 [place] [address] [place] [id number] [place] [address] May, Essential hypertension I10 ; Type 2 [...] and Gastroesophageal reflux disease without esophagitis K21.9 [place] [address] [place] [id number] [address] [place] [address] Apr, [place] [address] [address] Apr, Pneumonia due to infectious organism, unspecified laterality, unspecified part of lung J18.9 and Nausea R11.0 [place] [address] [place] [id number] [address] [place] [address] Apr, Essential hypertension I10 ; Chronic pain syndrome G89.4 ; Type 2 diabetes mellitus without complication E11.9 ; Hyperlipidemia, unspecified hyperlipidemia E78.5 ; Major depressive disorder, recurrent episode, unspecified severity F33.9 ; Sciatica, unspecified laterality M54.30 ; Chronic obstructive pulmonary disease, unspecified COPD type J44.9 ; Pneumonia due to infectious organism, unspecified laterality, unspecified part of lung J18.9 and Nausea R11.0 [facility] [address] [address] Mar, [place] [address] [address] Mar, [place] [address] [address] Mar, [place] [address] [place] [id number] [address] [place] [address] Mar, Anxiety F41.9 and Major depr essive disorder, recurrent episode, unspecified severity F33.9 [place] [address] [place] [id number] [address] [place] [address] Mar, [place] [address] [place] [id number] [address] [place] [address] Mar, [place] [address] [place] [id number] [address] [place] [address] Mar, Generalized abdominal pain R 10.84 ; Acute cystitis with hematuria N30.01 and Essential hypertension I10 [facility] [address] [place] [id number] [address] [place] [address] Mar, Sore throat J02.9 and Exacer bation of systemic lupus M32.9 [place] [address] [place] [id number] [address] [place] [address] Feb, Type 2 diabetes mellitus wit hout [...] reflux disease, esophagitis presence not specified K21.9 [place] [address] [address] Feb, [place] [address] [address] Jan, [facility] [place] [address] [address] Jan, Right arm pain M79.[address] of right wrist, initial encounter S66.911A [place] [address] [address] Jan, [facility] [place] [address] [address] Dec, Generalized abdominal pain R 10.84 [place] [address] [address] Dec, Adenopathy R59.1 [place] [address] [address] 19 Dec, 2015 Bronchitis J40 [place] [address] [address] 14 Dec, 2015 [place] [address] [address] Dec, Essential hypertension I10 [place] [address] [address] Nov, [place] [address] [place] [id number] [address] [place] [address] Nov, [place] [address] [address] Nov, Essential hypertension I10 ; Hyperlipidemia, unspecified [...] Type 2 diabetes mellitus without complication E11.[address] [address] Nov, [place] [address] [address] Oct, Type 2 diabetes mellitus wit hout complication E11.9 ; Essential hypertension I10 ; Other viral warts B07.8 ; [place] or callus L84 and Hyperlipidemia, unspecified hyperlipidemia E78.5 [place] [address] [place] [id number] [address] [place] [address] Sep, [place] [address] [place] [id number] [address] [place] [address] Sep, [place] [address] [place] [id number] [address] [place] [address] Jun, [place] [address] [address] Jun, [place] [address] [place] [id number] [address] [place] [address] May, [place] [address] [place] [address] Apr, [facility] [address] [id number] [address] [place] [address] Feb, [facility] [address] [facility] [id number] [address] [place] [address] Feb, COPD exacerbation J44.1 and Acute upper respiratory infection J06.9 [facility] [address] [id number] [address] [place] [address] Feb, [facility] [address] [id number] [address] [place] [address] Feb, [facility] [address] [id number] [address] [place] [address] Feb, [facility] [address] [facility] [id number] [address] [place] [address] Feb, [facility] [address] [facility] [id number] [address] [place] [address] Jan, Left hip pain M25.552 [facility] [address] [id number] [address] [place] [address] Jan, Essential hypertension I10 ; Chronic pain syndrome G89.4 ; Type 2 diabetes mellitus without complication E11.9 and Hyperlipidemia, unspecified hyperlipidemia E78.5 [facility] [address] [id number] [address] [place] [address] Jul, [facility] [address] [id number] [address] [place] [address] Jul, [facility] [address] [id number] [address] [place] [address] Jul, [facility] [address] [facility] [id number] [address] [place] [address] Jun, [facility] [address] [id number] [address] [place] [address] Jun, [facility] [place] [facility] [address] [id number] [address] [place] [address], [place] [address] 24 Jun, 2014 [facility] [address] [id number] [address] [place] [address], [place] [address] 20 Jun, 2014 [facility] [address] [id number] [address] [place] [address], [place] [address] 20 Jun, 2014 [facility] [address] [id number] [address] [place] [address], [place] [address] 20 Jun, 2014 [facility] [address] [id number] [address] [place] [address], [place] [address] 20 Jun, 2014 [facility] [address] [id number] [address] [place] [address], [place] [address] 19 Jun, 2014 [facility] [address] [id number] [address] [place] [address], [place] [address] 18 Jun, 2014 [facility] [address] [id number] [address] [place] [address], [place] [address] 18 Jun, 2014 [facility] [address] [id number] [address] [place] [address], [place] [address] Jun, [facility] [address] [id number] [address] [place] [address], [place] [address] Jun, [facility] [address] [id number] [address] [place] [address], [place] [address] Apr, [facility] [address] [id number] [address] [place] [address], [place] [address] Apr, [facility] [address] [id number] [address] [place] [address], [place] [address] Apr, [facility] [address] [id number] [address] [place] [address], [place] [address] Apr, [facility] [address] [id number] [address] [place] [address], [place] [address] Apr, [facility] [address] [id number] [address] [place] [address], [place] [address] Apr, [facility] [address] [id number] [address] [place] [address], [place] [address] Apr, [facility] [address] [id number] [address] [place] [address], [place] [address] Apr, [facility] [address] [id number] [address] [place] [address], [place] [address] Mar, [facility] [address] [id number] [address] [place] [address], [place] [address] Mar, [facility] [address] [id number] [address] [place] [address], [place] [address] Mar, [facility] [address] [id number] [address] [place] [address], [place] [address] Mar, [facility] [address] [id number] [address] [place] [address], [place] [address] Mar, [facility] [address] [id number] [address] [place] [address], [place] [address] 18 Mar, 2014 [facility] [address] [id number] [address] [place] [address], [place] [address] 15 Mar, 2014 [facility] [address] [id number] [address] [place] [address], [place] [address] Mar, [facility] [address] [id number] [address] [place] [address], [place] [address] Mar, [facility] [address] [id number] [address] [place] [address], [place] [address] 08 Mar, 2014 [facility] [address] [id number] [address] [place] [address], [place] [address] Mar, [facility] [place] [facility] [address] [id number] [address] [place] [address], [place] [address] 05 Mar, 2014 [facility] [address] [id number] [address] [place] [address], [place] [address] 05 Mar, 2014 [facility] [address] [id number] [address] [place] [address], [place] [address] Feb, [facility] [place] [facility] [address] [id number] [address] [place] [address], [place] [address] Feb, [facility] [place] [facility] [address] [id number] [address] [place] [address], [place] [address] Feb, [facility] [place] [facility] [address] [id number] [address] [place] [address], [place] [address] Feb, [facility] [place] [facility] [address] [id number] [address] [place] [address], [place] [address] Feb, [facility] [place] [facility] [address] [id number] [address] [place] [address], [place] [address] Feb, [facility] [place] [facility] [address] [id number] [address] [place] [address], [place] [address] Feb, [facility] [place] [facility] [address] [id number] [address] [place] [address], [place] [address] Feb, [facility] [place] [facility] [address] [id number] [address] [place] [address], [place] [address] Jan, [facility] [place] [facility] [address] [id number] [address] [place] [address], [place] [address] Jan, [facility] [place] [facility] [address] [id number] [address] [place] [address], [place] [address] Jan, [facility] [place] [facility] [address] [id number] [address] [place] [address], [place] [address] Jan, [facility] [place] [facility] [address] [id number] [address] [place] [address], [place] [address] Jan, [facility] [place] [facility] [address] [id number] [address] [place] [address], [place] [address] Jan, [facility] [place] [facility] [address] [id number] [address] [place] [address], [place] [address] Jan, [facility] [place] [facility] [address] [id number] [address] [place] [address], [place] [address] Jan, [facility] [place] [facility] [address] [id number] [facility] [address] 20 Jan, 2014 [facility] [place] [facility] [address] [id number] [facility] [place] [address] 30 Dec, 2013 [facility] [place] [facility] [address] [id number] [facility] [place] [address] 30 Dec, 2013 [facility] [place] [address] [id number] [address] [place] [address], [place] [address] 26 Dec, 2013 [facility] [place] [address] [id number] [address] [place] [address], [place] [address] 26 Dec, 2013 [facility] [place] [address] [id number] [address] [place] [address], [place] [address] 16 Dec, 2013 [facility] [place] [address] [id number] [address] [place] [address], [place] [address] 16 Dec, 2013 [facility] [place] [address] [id number] [address] [place] [address], [place] [address] 08 Dec, 2013 [facility] [place] [address] [id number] [address] [place] [address], [place] [address] 08 Dec, 2013 [facility] [place] [address] [id number] [address] [place] [address], [place] [address] 04 Dec, 2013 [facility] [facility] [address] [id number] [address] [place] [address], [place] [address] Dec, 2013 [facility] [place] [address] [id number] [address] [place] [address], [place] [address] Nov, [facility] [place] [address] [id number] [address] [place] [address], [place] [address] Nov, [facility] [place] [address] [id number] [address] [place] [address], [place] [address] Nov, [facility] [place] [address] [id number] [address] [place] [address], [place] [address] Nov, [facility] [place] [address] [id number] [address] [place] [address], [place] [address] Nov, [facility] [place] [address] [id number] [facility] [place] [address] Nov, [facility] [place] [address] [id number] [address] [place] [address], [place] [address] Nov, [facility] [place] [address] [id number] [address] [place] [address], [place] [address] Nov, [facility] [place] [address] [id number] [address] [place] [address], [place] [address] Nov, [facility] [place] [address] [id number] [address] [place] [address], [place] [address] Nov, [facility] [address] [id number] [address] [place] [address], [place] [address] Nov, [facility] [address] [id number] [address] [place] [address], [place] [address] Nov, [facility] [address] [id number] [address] [place] [address], [place] [address] Nov, [facility] [address] [id number] [address] [place] [address], [place] [address] Oct, [facility] [address] [id number] [address] [place] [address], [place] [address] Oct, [facility] [address] [id number] [address] [place] [address], [place] [address] Oct, [facility] [address] [id number] [address] [place] [address], [place] [address] Oct, [facility] [address] [id number] [address] [place] [address], [place] [address] Oct, [facility] [address] [id number] [address] [place] [address], [place] [address] Oct, [facility] [address] [id number] [address] [place] [address], [place] [address] Sep, [facility] [address] [id number] [facility] [address] Sep, [facility] [address] [id number] [address] [place] [address], [place] [address] Sep, [facility] [address] [id number] [address] [place] [address], [place] [address] Sep, [facility] [address] [id number] [address] [place] [address], [place] [address] Sep, [facility] [address] [id number] [address] [place] [address], [place] [address] Sep, [facility] [address] [id number] [address] [place] [address], [place] [address] Sep, [facility] [address] [id number] [address] [place] [address], [place] [address] Sep, [facility] [address] [id number] [address] [place] [address], [place] [address] Sep, [facility] [address] [id number] [address] [place] [address], [place] [address] Sep, [facility] [address] [id number] [address] [place] [address], [place] [address] Sep, [facility] [address] [id number] [address] [place] [address], [place] [address] Sep, [facility] [address] [id number] [address] [place] [address], [place] [address] August, [facility] [address] [id number] [address] [place] [address], [place] [address] August, [facility] [address] [id number] [address] [place] [address], [place] [address] Jul, [facility] [address] [id number] [address] [place] [address], [place] [address] Jul, [facility] [address] [id number] [address] [place] [address], [place] [address] Jul, [facility] [address] [id number] [facility] [place] [address] 24 Jul, 2013 [facility] [address] [id number] [facility] [place] [address] Jul, [facility] [address] [id number] [facility] [place] [address] Jul, [facility] [address] [id number] [address] [place] [address], [place] [address] Jul, [facility] [address] [id number] [facility] [place] [address] 16 Jul, 2013 [facility] [address] [id number] [address] [place] [address], [place] [address] Jul, [facility] [address] [id number] [address] [place] [address], [place] [address] Jul, [facility] [address] [id number] [address] [place] [address], [place] [address] Jul, [facility] [address] [id number] [address] [place] [address], [place] [address] 31 Jun, 2013 [facility] [address] [id number] [address] [place] [address], [place] [address] 31 Jun, 2013 [facility] [address] [id number] [address] [place] [address], [place] [address] 28 Jun, 2013 [facility] [address] [id number] [address] [place] [address], [place] [address] 28 Jun, 2013 [facility] [address] [id number] [address] [place] [address], [place] [address] Jun, [facility] [address] [id number] [address] [place] [address], [place] [address] Jun, [facility] [address] [id number] [address] [place] [address], [place] [address] 25 Jun, 2013 [facility] [address] [id number] [address] [place] [address], [place] [address] Jun, [facility] [address] [id number] [address] [place] [address], [place] [address] May, [facility] [address] [id number] [address] [place] [address], [place] [address] May, [facility] [address] [id number] [address] [place] [address], [place] [address] May, [facility] [address] [id number] [address] [place] [address], [place] [address] May, [facility] [address] [id number] [address] [place] [address], [place] [address] May, [facility] [address] [id number] [address] [place] [address], [place] [address] May, [facility] [address] [id number] [address] [place] [address], [place] [address] May, [facility] [address] [id number] [address] [place] [address], [place] [address] May, [facility] [address] [id number] [address] [place] [address], [place] [address] May, [facility] [address] [id number] [address] [place] [address], [place] [address] May, [facility] [address] [id number] [address] [place] [address], [place] [address] May, [facility] [address] [id number] [address] [place] [address], [place] [address] May, [facility] [address] [id number] [address] [place] [address], [place] [address] May, [facility] [address] [id number] [address] [place] [address], [place] [address] Apr, [facility] [address] [id number] [address] [place] [address], [place] [address] Apr, [facility] [address] [id number] [address] [place] [address], [place] [address] Apr, [facility] [address] [id number] [address] [place] [address], [place] [address] Apr, [facility] [address] [id number] [address] [place] [address], [place] [address] Apr, [facility] [address] [id number] [address] [place] [address], [place] [address] Apr, [facility] [address] [id number] [address] [place] [address], [place] [address] Apr, [facility] [address] [id number] [address] [place] [address], [place] [address] Apr, [facility] [address] [id number] [address] [place] [address], [place] [address] Apr, [facility] [address] [id number] [address] [place] [address], [place] [address] Apr, [facility] [address] [id number] [address] [place] [address], [place] [address] Apr, [facility] [address] [id number] [address] [place] [address], [place] [address] Apr, [facility] [address] [id number] [address] [place] [address], [place] [address] Apr, [facility] [address] [id number] [address] [place] [address], [place] [address] Apr, [facility] [address] [id number] [address] [place] [address], [place] [address] Apr, [facility] [address] [id number] [address] [place] [address], [place] [address] Mar, [facility] [address] [id number] [address] [place] [address], [place] [address] Mar, [facility] [address] [id number] [address] [place] [address], [place] [address] Mar, [facility] [address] [id number] [address] [place] [address], [place] [address] Mar, [facility] [address] [id number] [address] [place] [address], [place] [address] Mar, [facility] [address] [id number] [address] [place] [address], [place] [address] Mar, [facility] [address] [id number] [address] [place] [address], [place] [address] 17 Mar, 2013 [facility] [address] [id number] [address] [place] [address], [place] [address] 17 Mar, 2013 [facility] [address] [id number] [address] [place] [address], [place] [address] Mar, [facility] [address] [id number] [address] [place] [address], [place] [address] Mar, [facility] [address] [id number] [address] [place] [address], [place] [address] Mar, [facility] [address] [id number] [address] [place] [address], [place] [address] Mar, [facility] [address] [id number] [address] [place] [address], [place] [address] Feb, [facility] [address] [id number] [address] [place] [address], [place] [address] Feb, [facility] [address] [id number] [address] [place] [address], [place] [address] Feb, [facility] [address] [id number] [address] [place] [address], [place] [address] Feb, [facility] [address] [id number] [address] [place] [address], [place] [address] Feb, [facility] [address] [id number] [address] [place] [address], [place] [address] 08 Feb, 2013 [facility] [address] [id number] [address] [place] [address], [place] [address] Feb, [facility] [address] [id number] [address] [place] [address], [place] [address] Feb, [facility] [address] [id number] [address] [place] [address], [place] [address] Jan, [facility] [address] [id number] [address] [place] [address], [place] [address] Jan, [facility] [address] [id number] [address] [place] [address], [place] [address] Jan, [facility] [address] [id number] [address] [place] [address], [place] [address] Jan, [facility] [address] [id number] [address] [place] [address], [place] [address] Jan, [facility] [address] [id number] [address] [place] [address], [place] [address] Jan, [facility] [address] [id number] [address] [place] [address], [place] [address] Jan, [facility] [address] [id number] [address] [place] [address], [place] [address] Dec, [facility] [address] [id number] [address] [place] [address], [place] [address] Dec, [facility] [address] [id number] [address] [place] [address], [place] [address] Dec, [facility] [address] [id number] [address] [place] [address], [place] [address] Dec, [facility] [address] [id number] [address] [place] [address], [place] [address] Dec, [facility] [address] [id number] [address] [place] [address], [place] [address] Nov, [facility] [address] [id number] [address] [place] [address], [place] [address] Nov, [facility] [address] [id number] [address] [place] [address], [place] [address] Nov, [facility] [address] [id number] [address] [place] [address], [place] [address] Nov, [facility] [address] [id number] [address] [place] [address], [place] [address] Nov, [facility] [address] [id number] [address] [place] [address], [place] [address] Nov, [facility] [address] [id number] [address] [place] [address], [place] [address] Nov, [facility] [address] [id number] [address] [place] [address], [place] [address] Oct, [facility] [address] [id number] [address] [place] [address], [place] [address] Oct, [facility] [address] [id number] [address] [place] [address], [place] [address] Oct, [facility] [address] [id number] [address] [place] [address], [place] [address] Oct, [facility] [address] [id number] [address] [place] [address], [place] [address] Oct, [facility] [address] [id number] [address] [place] [address], [place] [address] Oct, [facility] [address] [id number] [address] [place] [address], [place] [address] Oct, [facility] [address] [id number] [address] [place] [address], [place] [address] Oct, [facility] [address] [id number] [address] [place] [address], [place] [address] Sep, [facility] [address] [id number] [address] [place] [address], [place] [address] Sep, [facility] [address] [id number] [address] [place] [address], [place] [address] 13 Sep, 2012 [facility] [address] [id number] [address] [place] [address], [place] [address] 12 Sep, 2012 [facility] [address] [id number] [address] [place] [address], [place] [address] Sep, [facility] [address] [id number] [address] [place] [address], [place] [address] Sep, [facility] [address] [id number] [address] [place] [address], [place] [address] August, [facility] [address] [id number] [address] [place] [address], [place] [address] August, [facility] [address] [id number] [address] [place] [address], [place] [address] August, [facility] [address] [id number] [address] [place] [address], [place] [address] August, [facility] [address] [id number] [address] [place] [address], [place] [address] August, [facility] [address] [id number] [address] [place] [address], [place] [address] Jul, [facility] [address] [id number] [address] [place] [address], [place] [address] Jul, [facility] [address] [id number] [address] [place] [address], [place] [address] 24 Jul, 2012 [facility] [address] [id number] [address] [place] [address], [place] [address] 15 Jul, 2012 [facility] [address] [id number] [address] [place] [address], [place] [address] Jul, [facility] [address] [id number] [address] [place] [address], [place] [address] 05 Jul, 2012 [facility] [address] [id number] [address] [place] [address], [place] [address] 14 Jun, 2012 [facility] [address] [id number] [address] [place] [address], [place] [address] 13 Jun, 2012 [facility] [address] [id number] [address] [place] [address], [place] [address] 07 Jun, 2012 [facility] [address] [id number] [address] [place] [address], [place] [address] 07 Jun, 2012 [facility] [address] [id number] [address] [place] [address], [place] [address] 05 Jun, 2012 [facility] [address] [id number] [address] [place] [address], [place] [address] 19 May, 2012 [facility] [address] [id number] [address] [place] [address], [place] [address] 13 May, 2012 [facility] [address] [id number] [address] [place] [address], [place] [address] May, [facility] [address] [id number] [address] [place] [address], [place] [address] Apr, [facility] [address] [id number] [address] [place] [address], [place] [address] Apr, [facility] [address] [id number] [address] [place] [address], [place] [address] Mar, [facility] [address] [id number] [address] [place] [address], [place] [address] 26 Mar, 2012 [facility] [address] [id number] [address] [place] [address], [place] [address] 19 Mar, 2012 [facility] [address] [id number] [address] [place] [address], [place] [address] 17 Mar, 2012 [facility] [address] [id number] [address] [place] [address], [place] [address] 17 Mar, 2012 [facility] [address] [id number] [address] [place] [address], [place] [address] 13 Mar, 2012 [facility] [address] [id number] [address] [place] [address] Feb, [facility] [address] [id number] [address] [place] [address], [place] [address] Feb, [facility] [address] [id number] [address] [place] [id number] Feb, [facility] [address] [id number] [address] [place] [address], [place] [address] Jan, [facility] [address] [id number] [address] [place] [address], [place] [address] 29 Jan, 2012 [facility] [address] [id number] [address] [place] [address], [place] [address] Jan, [facility] [address] [id number] [address] [place] [address], [place] [address] Jan, [facility] [address] [id number] [address] [place] [address], [place] [address] 24 Jan, 2012 [facility] [address] [id number] [address] [place] [address], [place] [address] Jan, [facility] [address] [id number] [address] [place] [address], [place] [address] 17 Jan, 2012 [facility] [address] [id number] [address] [place] [address], [place] [address] 16 Jan, 2012 [facility] [address] [id number] [address] [place] [address], [place] [address] 16 Jan, 2012 [facility] [address] [id number] [address] [place] [address], [place] [address] 18 Dec, 2011 [facility] [address] [id number] [address] [place] [address], [place] [address] 13 Dec, 2011 [facility] [address] [id number] [address] [place] [address], [place] [address] 11 Dec, 2011 [facility] [address] [id number] [address] [place] [address], [place] [address] Nov, [facility] [address] [id number] [facility] [address] 17 Nov, 2011 [facility] [address] [id number] [address] [place] [address], [place] [address] Nov, [facility] [address] [id number] [address] [place] [address], [place] [address] Oct, [facility] [address] [id number] [address] [place] [address], [place] [address] Oct, [facility] [address] [id number] [address] [place] [address], [place] [address] Sep, [facility] [address] [id number] [address] [place] [address], [place] [address] Sep, [facility] [address] [id number] [address] [place] [address], [place] [address] Sep, [facility] [address] [id number] [address] [place] [address], [place] [address] Sep, [facility] [address] [id number] [address] [place] [address], [place] [address] Sep, [facility] [address] [id number] [address] [place] [address], [place] [address] August, [facility] [address] [id number] [address] [place] [address], [place] [address] August, [facility] [address] [id number] [address] [place] [address], [place] [address] August, [facility] [address] [id number] [address] [place] [address], [place] [address] August, [facility] [address] [id number] [address] [place] [address], [place] [address] August, [facility] [address] [id number] [address] [place] [address], [place] [address] August, [facility] [address] [id number] [address] [place] [address], [place] [address] August, [facility] [address] [id number] [address] [place] [address], [place] [address] August, [facility] [address] [id number] [address] [place] [address], [place] [address] August, [facility] [address] [id number] [address] [place] [address], [place] [address] 27 Jul, 2011 [facility] [address] [id number] [address] [place] [address], [place] [address] Jul, [facility] [address] [id number] [address] [place] [address], [place] [address] 10 Jul, 2011 [facility] [address] [id number] [address] [place] [address], [place] [address] 04 Jul, 2011 [facility] [address] [id number] [address] [place] [address], [place] [address] 27 Jun, 2011 [facility] [address] [id number] [address] [place] [address], [place] [address] 13 Jun, 2011 [facility] [address] [id number] [address] [place] [address], [place] [address] 13 Jun, 2011 [facility] [address] [id number] [address] [place] [address], [place] [address] 27 May, 2011 [facility] [address] [id number] [address] [place] [address], [place] [address] 24 May, 2011 [facility] [address] [id number] [address] [place] [address], [place] [address] 20 May, 2011 [facility] [address] [id number] [address] [place] [address], [place] [address] 16 May, 2011 [facility] [address] [id number] [address] [place] [address], [place] [address] 15 May, 2011 [facility] [address] [id number] [address] [place] [address], [place] [address] 14 May, 2011 [facility] [address] [id number] [address] [place] [address], [place] [address] 10 May, 2011 [facility] [address] [id number] [address] [place] [address], [place] [address] May, [facility] [address] [id number] [address] [place] [address], [place] [address] May, [facility] [address] [id number] [address] [place] [address], [place] [address] Apr, [facility] [address] [id number] [address] [place] [address], [place] [address] Apr, [facility] [address] [id number] [address] [place] [address], [place] [address] Apr, [facility] [address] [id number] [address] [place] [address], [place] [address] Apr, [facility] [address] [id number] [address] [place] [address], [place] [address] Apr, [facility] [address] [id number] [address] [place] [address], [place] [address] Apr, [facility] [address] [id number] [address] [place] [address], [place] [address] Apr, [facility] [address] [id number] [address] [place] [address], [place] [id number] Apr, [facility] [address] [id number] [address] [place] [address], [place] [phone] Apr, [facility] [address] [id number] [address] [place] [address], [place] [id number] Apr, [facility] [address] [id number] [address] [place] [address], [place] [phone] Apr, [facility] [address] [id number] [address] [place] [address], [place] [phone] Mar, [facility] [address] [id number] [address] [place] [address] [address] Mar, [facility] [address] [facility] [id number] [address] [place] [phone] Mar, [facility] [address] [facility] [id number] [address] [place] [id number] Mar, [facility] [address] [facility] [id number] [address] [place] [id number] Feb, [facility] [address] [facility] [id number] [address] [place] [id number] Feb, [facility] [address] [facility] [id number] [address] [place] [phone] Jan, [facility] [address] [facility] [id number] [address] [place] [id number] Nov, IMMUNIZATIONS No Known Immunizations SOCIAL HISTORY [...] treatment for glaucoma Hospitalization History ED [place]- Right side and back pain related to fall, hurts to breathe (ED at 7 pm) 06/07/2017 Hospitalization History [facility] [place]- Anxiety ( went to ED at 1200) 06/07/2017 Hospitalization History COPD exacerbation - Gerald Pizano 2017 Hospitalization History Blood clot, port placement - Gerald Pizano 09/2017
--- OUTSIDE RECORDS SUMMARY | 2019-09-01 14:21 | XMS REPORT ---
Author Author RADHA Sophianaren OLIVA [facility] Address [address] [place] [address] Care Team Providers Care Plastic Mixer Name Role Phone RADHAKATHARINEHAZEL Unavailable PROBLEMS Type Condition ICD9-CM Code ZIU91-SP Code Onset Dates Condition S tatus SNOMED Code Problem Generalized abdominal pain R10.84 Act sree 070307517 Problem Anxiety F41.9 Active 37475612 Problem Proteinuria R80.9 Active 34253039 Problem Hyperlipidemia, unspecified hyperlipidemia E78.5 Active 34995487 Problem Essential hypertension I10 Active 74062922 Problem Venous insufficiency I87.2 Active 45945402 Problem Type 2 diabetes mellitus without complication E11. 9 Active 65879612 Problem Pneumonia due to infectious organism, unspecified laterality, unspecified part of lung J18.9 Active 312 774064 Problem Major depressive disorder, recurrent episode, un specified severity F33.9 Active 54584577 Problem Acute cystitis with hematuria N30.01 Active 40350668 Problem Sciatica, unspecified laterality M54.30 Active 15507645 Problem Carpal tunnel syndrome, right upper limb G56.01 Active 37236591 Problem Chronic pain syndrome G89.4 Active 231057274 Problem Port catheter in place Z95.828 Active 444964792 Problem History of small bowel obstruction Z87.19 Active 654574596 Problem Chronic pancreatitis, unspecified pancreatitis type K86.1 Active 045537866 Problem Presence of IVC filter Z95.828 Active 793174118 Problem Vitamin D deficiency E55.9 Active 52608441 Problem Gastroesophageal reflux disease, esophagitis pre sence not specified K21.9 Active 227221550 Problem Exacerbation of systemic lupus M32.9 Active 40438623 Problem Hypothyroidism, unspecified type E03.9 Active 08010979 Problem Nausea R11.0 Active 694832445 Problem Gastroesophageal reflux disease without esophagitis K21.9 Active 190522351 Problem Tobacco abuse counseling Z71.6 Activ e 82786105 Problem Hypertension, benign I10 Active 26266845 Problem Chronic obstructive pulmonary disease, unspecified COPD ty pe J44.9 Active 28561031 Problem Other iron deficiency anemia D50.8 A ctive 26982462 Problem Obstructive sleep apnea G47.33 Active 59834705 Problem History of pulmonary embolism Z86.711 Active 269767744 Problem 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 A ctive 955788907 Problem Opiate dependence, continuous F11.20 Active 881537431 Problem Cannabis abuse with physiological dependence F12.1 0 Active 35297441 Problem Violation of controlled substance agreement Z91.14 Active 064264420 ALLERGIES No Information ENCOUNTERS Encounter Location Date Diagnosis [facility] [address] [facility] [id number] [address] [place] [address] August, Type 2 diabetes mellitus wit hout complication E11.9 [place] [address] [place] [id number] [place] [phone] 17 Jul, 2019 Essential hypertension I10 ; Type 2 diabetes mellitus without complication E11.9 and Other iron deficiency anemia D50.8 [place] [address] [facility] [id number] [address] [place] [address] Jul, [place] [address] [facility] [id number] [address] [place] [address] May, [facility] [address] [place] [id number] [address] [place] [address] Apr, Tobacco abuse Z72.0 ; Hypert ension, benign I10 and Tobacco abuse counseling Z71.6 [place] [address] [facility] [id number] [address] [place] [address] Sep, [place] [address] [facility] [id number] [address] [place] [address] Sep, [place] [address] [place] [id number] [address] [place] [address] Sep, Essential hypertension I10 [place] [address] [place] [id number] [address] [place] [address] Sep, [place] [address] [place] [id number] [address] [place] [address] Sep, [facility] [address] [facility] [id number] [address] [place] [address] Sep, Neck mass R22.1 [facility] [address] [facility] [id number] [address] [place] [address] August, Neck mass R22.1 [facility] [address] [facility] [id number] [address] [place] [address] Feb, Left foot pain M79.672 [facility] [address] [facility] [id number] [address] [place] [address] Jun, Chronic pain syndrome G89.4 [facility] [id number] [place] [id number] May, [facility] [address] [facility] [id number] [address] [place] [address] May, [facility] [address] [facility] [id number] [address] [place] [address] May, Chronic pain syndrome G89.4 [facility] [address] [facility] [id number] [address] [place] [address] 13 May, 2017 [facility] [address] [facility] [id number] [address] [place] [address] 10 May, 2017 Encounter for immunization Z 23 and Laceration of left index finger without foreign body without damage to nail, initial encounter S61.211A [facility] [address] [facility] [id number] [address] [place] [address] 09 May, 2017 Chronic pain syndrome G89.4 [facility] [address] [facility] [id number] [address] [place] [address] 07 May, 2017 [facility] [address] [facility] [id number] [address] [place] [address] Apr, Cannabis abuse with physiolo gical dependence F12.10 ; Violation of controlled substance agreement Z91.14 and Opiate dependence, continuous F11.20 [facility] [address] [facility] [id number] [address] [place] [address] Apr, Type 2 diabetes mellitus wit hout complication E11.9 [facility] [address] [facility] [id number] [address] [place] [address] Apr, [facility] [address] [facility] [id number] [address] [place] [address] Apr, Chronic pain syndrome G89.4 [facility] [address] [facility] [id number] [address] [place] [address] Apr, Viral syndrome B34.9 [facility] [address] [facility] [id number] [address] [place] [address] Apr, [facility] [address] [place] [id number] [address] [place] [address] Mar, Chronic pain syndrome G89.4 [facility] [address] [place] [id number] [address] [place] [address] Mar, [facility] [address] [facility] [id number] [address] [place] [address] Mar, [facility] [address] [place] [id number] [address] [place] [address] Feb, Essential hypertension I10 ; Chronic pain syndrome G89.4 ; Hyperlipidemia, unspecified hyperlipidemia E78.5 ; 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 and Encounter for immunization Z23 [facility] [address] [facility] [id number] [address] [place] [address] Feb, Chronic pain syndrome G89.4 [facility] [address] [facility] [id number] [address] [place] [address] Jan, Chronic pain syndrome G89.4 [facility] [address] [facility] [id number] [address] [place] [address] Jan, [facility] [address] [place] [id number] [address] [place] [address] Jan, Bronchitis J40 ; Port cathet er in place Z95.828 and Chronic pain syndrome G89.4 [facility] [id number] [place] [id number] Jan, [facility] [address] [id number] [address] [place] [address] Dec, Chronic pain syndrome G89.4 [facility] [address] [id number] [address] [place] [address] Dec, Chronic pain syndrome G89.4 [facility] [address] [id number] [address] [place] [address] Dec, [facility] [address] [id number] [address] [place] [address] Nov, [facility] [address] [id number] [address] [place] [address] Nov, Chronic pain syndrome G89.4 [facility] [address] [id number] [address] [place] [address] Oct, Chronic pain syndrome G89.4 [facility] [address] [id number] [address] [place] [address] Oct, [facility] [address] [id number] [address] [place] [address] Sep, Chronic pain syndrome G89.4 [facility] [address] [id number] [address] [place] [address] Sep, Exacerbation of systemic lup us M32.9 [facility] [address] [id number] [address] [place] [address] Sep, [facility] [address] [id number] [address] [place] [address] Sep, [facility] [address] [id number] [address] [place] [address] Sep, Nausea R11.0 [facility] [address] [facility] [id number] [address] [place] [address] August, Chronic pain syndrome G89.4 [place] [address] [facility] [id number] [address] [place] [address] August, [place] [address] [facility] [id number] [address] [place] [address] August, Chronic pain syndrome G89.4 [place] [address] [facility] [id number] [address] [place] [address] Jul, Pneumonia due to infectious organism, unspecified laterality, unspecified part of lung J18.9 and Tobacco abuse counseling Z71.6 [place] [address] [facility] [id number] [address] [place] [address] Jul, Chronic pain syndrome G89.4 [place] [address] [place] [id number] [address] [place] [address] Jun, Essential hypertension I10 [place] [address] [place] [id number] [address] [place] [address] Jun, Pneumonia due to infectious organism, unspecified laterality, unspecified part of lung J18.9 [place] [address] [place] [id number] [address] [place] [address] Jun, Chronic pain syndrome G89.4 [place] [address] [facility] [id number] [address] [place] [address] May, Essential hypertension I10 ; Type 2 [...] and Gastroesophageal reflux disease without esophagitis K21.9 [place] [address] [place] [id number] [address] [place] [address] Apr, [facility] [address] [facility] [id number] [address] [place] [address] Apr, Pneumonia due to infectious organism, unspecified laterality, unspecified part of lung J18.9 and Nausea R11.0 [facility] [address] [id number] [address] [place] [address] Apr, Essential hypertension I10 ; Chronic pain syndrome G89.4 ; Type 2 diabetes mellitus without complication E11.9 ; Hyperlipidemia, unspecified hyperlipidemia E78.5 ; Major depressive disorder, recurrent episode, unspecified severity F33.9 ; Sciatica, unspecified laterality M54.30 ; Chronic obstructive pulmonary disease, unspecified COPD type J44.9 ; Pneumonia due to infectious organism, unspecified laterality, unspecified part of lung J18.9 and Nausea R11.0 [facility] [address] [facility] [id number] [address] [place] [phone] Mar, [facility] [address] [facility] [id number] [address] [place] [address] Mar, [facility] [address] [facility] [id number] [address] [place] [address] Mar, [place] [address] [facility] [id number] [address] [place] [address] Mar, Anxiety F41.9 and Major depr essive disorder, recurrent episode, unspecified severity F33.9 [place] [address] [facility] [id number] [address] [place] [address] Mar, [facility] [address] [id number] [address] [place] [address] Mar, [place] [address] [facility] [id number] [address] [place] [address] Mar, Generalized abdominal pain R 10.84 ; Acute cystitis with hematuria N30.01 and Essential hypertension I10 [facility] [address] [facility] [id number] [address] [place] [address] 15 Dec, 2016 Sore throat J02.9 and Exacer bation of systemic lupus M32.9 [place] [address] [place] [address] Feb, Type 2 diabetes mellitus wit hout [...] reflux disease, esophagitis presence not specified K21.9 [place] [address] [address] Feb, [place] [address] [address] Jan, [facility] [address] [address] Jan, Right arm pain M79.601 [address] train of right wrist, initial encounter S66.911A [place] [address] [address] Jan, [facility] [place] [address] [address] 30 Dec, 2015 Generalized abdominal pain R 10.84 [place] [address] [place] [address] 23 Dec, 2015 Adenopathy R59.1 [place] [address] [address] 19 Dec, 2016 Bronchitis J40 [place] [address] [place] [id number] [address] [place] [address] 14 Dec, 2015 [place] [address] [address] Dec, Essential hypertension I10 [facility] [address] [facility] [id number] [address] [place] [address] Nov, [facility] [address] [facility] [id number] [address] [place] [address] Nov, [facility] [address] [place] [id number] [address] [place] [address] Nov, Essential hypertension I10 ; Hyperlipidemia, unspecified [...] Type 2 diabetes mellitus without complication E11.9 [place] [address] [place] [address] Nov, [place] [address] [place] [id number] [address] [place] [address] Oct, Type 2 diabetes mellitus wit hout complication E11.9 ; Essential hypertension I10 ; Other viral warts B07.8 ; [place]iterocks or callus L84 and Hyperlipidemia, unspecified hyperlipidemia E78.5 [facility] [address] [facility] [id number] [address] [place] [address] Sep, [place] [address] [place] [id number] [address] [place] [address] Sep, [place] [address] [place] [id number] [address] [place] [address] Jun, [facility] [address] [place] [id number] [address] [place] [address] Jun, [place] [address] [id number] [address] [place] [address] May, [facility] [address] [id number] [address] [place] [address] Apr, [facility] [address] [id number] [address] [place] [address] Feb, [facility] [address] [id number] [address] [place] [address] Feb, COPD exacerbation J44.1 and Acute upper respiratory infection J06.9 [facility] [address] [id number] [address] [place] [address] Feb, [facility] [address] [id number] [address] [place] [address] Feb, [facility] [address] [facility] [id number] [address] [place] [address] Feb, [facility] [address] [id number] [address] [place] [address] Feb, [facility] [address] [facility] [id number] [address] [place] [address] Jan, Left hip pain M25.552 [facility] [address] [facility] [id number] [address] [place] [address] Jan, Essential hypertension I10 ; Chronic pain syndrome G89.4 ; Type 2 diabetes mellitus without complication E11.9 and Hyperlipidemia, unspecified hyperlipidemia E78.5 [facility] [address] [id number] [address] [place] [address] 28 Jul, 2014 [facility] [address] [facility] [id number] [address] [place] [address] 14 Jul, 2014 [facility] [address] [facility] [id number] [address] [place] [address] Jul, [facility] [address] [facility] [id number] [address] [place] [address] Jun, [facility] [address] [id number] [address] [place] [address], [place] [address] Jun, [facility] [address] [id number] [address] [place] [address], [place] [address] Jun, [facility] [address] [id number] [address] [place] [address], [place] [address] Jun, [facility] [address] [id number] [address] [place] [address], [place] [address] Jun, [facility] [address] [id number] [address] [place] [address], [place] [address] Jun, [facility] [address] [id number] [address] [place] [address], [place] [address] Jun, [facility] [address] [id number] [address] [place] [address], [place] [address] Jun, [facility] [address] [id number] [address] [place] [address], [place] [address] Jun, [facility] [address] [id number] [address] [place] [address], [place] [address] Jun, [facility] [address] [id number] [address] [place] [address], [place] [address] Jun, [facility] [address] [id number] [address] [place] [address], [place] [address] Jun, [facility] [address] [id number] [address] [place] [address], [place] [address] Apr, [facility] [address] [id number] [address] [place] [address], [place] [address] Apr, [facility] [address] [id number] [address] [place] [address], [place] [address] Apr, [facility] [address] [id number] [address] [place] [address], [place] [address] Apr, [facility] [address] [id number] [address] [place] [address], [place] [address] Apr, [facility] [address] [id number] [address] [place] [address], [place] [address] Apr, [facility] [address] [id number] [address] [place] [address], [place] [address] Apr, [facility] [address] [id number] [address] [place] [address], [place] [address] Apr, [facility] [address] [id number] [address] [place] [address], [place] [address] Mar, [facility] [address] [id number] [address] [place] [address], [place] [address] Mar, [facility] [address] [id number] [address] [place] [address], [place] [address] Mar, [facility] [address] [id number] [address] [place] [address], [place] [address] Mar, [facility] [address] [id number] [address] [place] [address], [place] [address] Mar, [facility] [address] [id number] [address] [place] [address], [place] [address] Mar, [facility] [address] [id number] [address] [place] [address], [place] [address] 15 Mar, 2014 [facility] [address] [id number] [address] [place] [address], [place] [address] Mar, [facility] [address] [id number] [address] [place] [address], [place] [address] Mar, [facility] [address] [id number] [address] [place] [address], [place] [address] 08 Mar, 2014 [facility] [address] [id number] [address] [place] [address], [place] [address] 08 Mar, 2014 [facility] [address] [id number] [address] [place] [address], [place] [address] Mar, [facility] [address] [id number] [address] [place] [address], [place] [address] Mar, [facility] [address] [id number] [address] [place] [address], [place] [address] Feb, [facility] [address] [id number] [address] [place] [address], [place] [address] Feb, [facility] [address] [id number] [address] [place] [address], [place] [address] Feb, [facility] [address] [id number] [address] [place] [address], [place] [address] Feb, [facility] [address] [id number] [address] [place] [address], [place] [address] Feb, [facility] [address] [id number] [address] [place] [address], [place] [address] Feb, [facility] [address] [id number] [address] [place] [address], [place] [address] Feb, [facility] [address] [id number] [address] [place] [address], [place] [address] Feb, [facility] [address] [id number] [address] [place] [address], [place] [address] Jan, [facility] [address] [id number] [address] [place] [address], [place] [address] Jan, [facility] [address] [id number] [address] [place] [address], [place] [address] Jan, [facility] [address] [id number] [address] [place] [address], [place] [address] Jan, [facility] [address] [id number] [address] [place] [address], [place] [address] Jan, [facility] [address] [id number] [address] [place] [address], [place] [address] Jan, [facility] [address] [id number] [address] [place] [address], [place] [address] Jan, [facility] [address] [id number] [address] [place] [address], [place] [address] Jan, [facility] [address] [id number] [address] [place] [address], [place] [address] Jan, [facility] [address] [id number] [address] [place] [address], [place] [address] 30 Dec, 2013 [facility] [address] [id number] [address] [place] [address], [place] [address] 30 Dec, 2013 [facility] [address] [id number] [address] [place] [address], [place] [address] Dec, 2013 [facility] [address] [id number] [address] [place] [address], [place] [address] Dec, 2013 [facility] [address] [id number] [address] [place] [address], [place] [address] 16 Dec, 2013 [facility] [address] [id number] [address] [place] [address], [place] [address] 16 Dec, 2013 [facility] [address] [id number] [address] [place] [address], [place] [address] 08 Dec, 2013 [facility] [address] [id number] [address] [place] [address], [place] [address] 08 Dec, 2013 [facility] [address] [id number] [address] [place] [address], [place] [address] Dec, [facility] [address] [id number] [address] [place] [address], [place] [address] Dec, [facility] [address] [id number] [address] [place] [address], [place] [address] Nov, [facility] [address] [id number] [address] [place] [address], [place] [address] Nov, [facility] [address] [id number] [address] [place] [address], [place] [address] Nov, [facility] [address] [id number] [address] [place] [address], [place] [address] Nov, [facility] [address] [id number] [address] [place] [address], [place] [address] Nov, [facility] [address] [id number] [address] [place] [address], [place] [address] Nov, [facility] [address] [id number] [address] [place] [address], [place] [address] Nov, [facility] [address] [id number] [address] [place] [address], [place] [address] Nov, [facility] [address] [id number] [address] [place] [address], [place] [address] Nov, [facility] [address] [id number] [address] [place] [address], [place] [address] Nov, [facility] [address] [id number] [address] [place] [address], [place] [address] Nov, [facility] [address] [id number] [address] [place] [address], [place] [address] Nov, [facility] [address] [id number] [address] [place] [address], [place] [address] Nov, [facility] [address] [id number] [address] [place] [address], [place] [address] Oct, [facility] [address] [id number] [address] [place] [address], [place] [address] Oct, [facility] [address] [id number] [address] [place] [address], [place] [address] Oct, [facility] [address] [id number] [address] [place] [address], [place] [address] Oct, [facility] [address] [id number] [address] [place] [address], [place] [address] Oct, [facility] [address] [id number] [address] [place] [address], [place] [address] Oct, [facility] [address] [id number] [facility] [place] [address] Sep, [facility] [address] [id number] [facility] [place] [address] Sep, [facility] [address] [id number] [facility] [place] [address] Sep, [facility] [address] [id number] [facility] [place] [address] Sep, [facility] [address] [id number] [address] [place] [address], [place] [address] Sep, [facility] [address] [id number] [address] [place] [address], [place] [address] Sep, [facility] [address] [id number] [address] [place] [address], [place] [address] Sep, [facility] [address] [id number] [address] [place] [address], [place] [address] Sep, [facility] [address] [id number] [address] [place] [address], [place] [address] Sep, [facility] [address] [id number] [address] [place] [address], [place] [address] Sep, [facility] [address] [id number] [address] [place] [address], [place] [address] Sep, [facility] [address] [id number] [address] [place] [address], [place] [address] Sep, [facility] [address] [id number] [address] [place] [address], [place] [address] August, [facility] [address] [id number] [address] [place] [address], [place] [address] August, [facility] [address] [id number] [address] [place] [address], [place] [address] Jul, [facility] [address] [id number] [address] [place] [address], [place] [address] 29 Jul, 2013 [facility] [address] [id number] [facility] [address] Jul, [facility] [address] [id number] [address] [place] [address], [place] [address] 24 Jul, 2013 [facility] [address] [id number] [address] [place] [address], [place] [address] Jul, [facility] [address] [id number] [address] [place] [address], [place] [address] Jul, [facility] [address] [id number] [address] [place] [address], [place] [address] Jul, [facility] [address] [id number] [address] [place] [address], [place] [address] Jul, [facility] [address] [id number] [address] [place] [address], [place] [address] Jul, [facility] [address] [id number] [address] [place] [address], [place] [address] Jul, [facility] [address] [id number] [address] [place] [address], [place] [address] Jul, [facility] [address] [id number] [address] [place] [address], [place] [address] 31 Jun, 2013 [facility] [address] [id number] [address] [place] [address], [place] [address] 31 Jun, 2013 [facility] [address] [id number] [address] [place] [address], [place] [address] 28 Jun, 2013 [facility] [address] [id number] [address] [place] [address], [place] [address] 28 Jun, 2013 [facility] [address] [id number] [address] [place] [address], [place] [address] Jun, [facility] [address] [id number] [address] [place] [address], [place] [address] Jun, [facility] [address] [id number] [address] [place] [address], [place] [address] Jun, [facility] [address] [id number] [address] [place] [address], [place] [address] Jun, [facility] [address] [id number] [address] [place] [address], [place] [address] May, [facility] [address] [id number] [address] [place] [address], [place] [address] May, [facility] [address] [id number] [address] [place] [address], [place] [address] May, [facility] [address] [id number] [address] [place] [address], [place] [address] May, [facility] [address] [id number] [address] [place] [address], [place] [address] May, [facility] [address] [id number] [address] [place] [address], [place] [address] May, [facility] [address] [id number] [address] [place] [address], [place] [address] May, [facility] [address] [id number] [address] [place] [address], [place] [address] May, [facility] [address] [id number] [address] [place] [address], [place] [address] May, [facility] [address] [id number] [address] [place] [address] May, [facility] [address] [id number] [address] [place] [address], [place] [address] May, [facility] [address] [id number] [address] [place] [address], [place] [address] May, [facility] [address] [id number] [address] [place] [address] May, [facility] [address] [id number] [address] [place] [address] Apr, [facility] [address] [id number] [address] [place] [address], [place] [address] Apr, [facility] [address] [id number] [address] [place] [address], [place] [address] Apr, [facility] [address] [id number] [address] [place] [address], [place] [address] Apr, [facility] [address] [id number] [address] [place] [address], [place] [address] Apr, [facility] [address] [id number] [address] [place] [address], [place] [address] Apr, [facility] [address] [id number] [address] [place] [address], [place] [address] Apr, [facility] [address] [id number] [address] [place] [address], [place] [address] Apr, [facility] [address] [id number] [address] [place] [address], [place] [address] Apr, [facility] [address] [id number] [address] [place] [address], [place] [address] Apr, [facility] [address] [id number] [address] [place] [address], [place] [address] Apr, [facility] [address] [id number] [address] [place] [address], [place] [address] Apr, [facility] [address] [id number] [address] [place] [address], [place] [address] Apr, [facility] [address] [id number] [address] [place] [address], [place] [address] Apr, [facility] [address] [id number] [address] [place] [address], [place] [address] Apr, [facility] [address] [id number] [address] [place] [address], [place] [address] Mar, [facility] [address] [id number] [address] [place] [address], [place] [address] Mar, [facility] [address] [id number] [address] [place] [address], [place] [address] Mar, [facility] [address] [id number] [address] [place] [address], [place] [address] Mar, [facility] [address] [id number] [address] [place] [address], [place] [address] Mar, [facility] [address] [id number] [address] [place] [address], [place] [address] Mar, [facility] [address] [id number] [address] [place] [address], [place] [address] Mar, [facility] [address] [id number] [address] [place] [address], [place] [address] Mar, [facility] [address] [id number] [address] [place] [address], [place] [address] Mar, [facility] [address] [id number] [address] [place] [address], [place] [address] Mar, [facility] [address] [id number] [address] [place] [address], [place] [address] Mar, [facility] [address] [id number] [address] [place] [address], [place] [address] Mar, [facility] [address] [id number] [address] [place] [address], [place] [address] Feb, [facility] [address] [id number] [address] [place] [address], [place] [address] Feb, [facility] [address] [id number] [address] [place] [address], [place] [address] Feb, [facility] [address] [id number] [address] [place] [address], [place] [address] Feb, [facility] [address] [id number] [address] [place] [address], [place] [address] Feb, [facility] [address] [id number] [address] [place] [address], [place] [address] Feb, [facility] [address] [id number] [address] [place] [address], [place] [address] Feb, [facility] [address] [id number] [address] [place] [address], [place] [address] Feb, [facility] [address] [id number] [address] [place] [address], [place] [address] Jan, [facility] [address] [id number] [address] [place] [address], [place] [address] Jan, [facility] [address] [id number] [address] [place] [address], [place] [address] Jan, [facility] [address] [id number] [address] [place] [address], [place] [address] Jan, [facility] [address] [id number] [address] [place] [address], [place] [address] Jan, [facility] [address] [id number] [address] [place] [address], [place] [address] Jan, [facility] [address] [id number] [address] [place] [address], [place] [address] Jan, [facility] [address] [id number] [address] [place] [address], [place] [address] 27 Dec, 2012 [facility] [address] [id number] [address] [place] [address] 23 Dec, 2012 [facility] [address] [id number] [address] [place] [address], [place] [address] 23 Dec, 2012 [facility] [address] [id number] [address] [place] [address], [place] [address] 12 Dec, 2012 [facility] [address] [id number] [address] [place] [address], [place] [address] Dec, [facility] [address] [id number] [address] [place] [address], [place] [address] Nov, [facility] [address] [id number] [address] [place] [address], [place] [address] Nov, [facility] [address] [id number] [address] [place] [address], [place] [address] Nov, [facility] [address] [id number] [address] [place] [address], [place] [address] Nov, [facility] [address] [id number] [address] [place] [address], [place] [address] Nov, [facility] [address] [id number] [address] [place] [address], [place] [address] Nov, [facility] [address] [id number] [address] [place] [address], [place] [address] Nov, [facility] [address] [id number] [address] [place] [address], [place] [address] Oct, [facility] [address] [id number] [address] [place] [address], [place] [address] Oct, [facility] [address] [id number] [address] [place] [address], [place] [address] Oct, [facility] [address] [id number] [address] [place] [address], [place] [address] Oct, [facility] [address] [id number] [address] [place] [address], [place] [address] Oct, [facility] [address] [id number] [address] [place] [address], [place] [address] Oct, [facility] [address] [id number] [address] [place] [address], [place] [address] Oct, [facility] [address] [id number] [address] [place] [address], [place] [address] Oct, [facility] [address] [id number] [address] [place] [address], [place] [address] Sep, [facility] [address] [id number] [address] [place] [address], [place] [address] 14 Sep, 2012 [facility] [address] [id number] [address] [place] [address], [place] [address] 13 Sep, 2012 [facility] [address] [id number] [address] [place] [address], [place] [address] 12 Sep, 2012 [facility] [address] [id number] [address] [place] [address], [place] [address] Sep, [facility] [address] [id number] [address] [place] [address], [place] [address] 06 Sep, 2012 [facility] [address] [id number] [address] [place] [address], [place] [address] August, [facility] [address] [id number] [address] [place] [address], [place] [address] August, [facility] [address] [id number] [address] [place] [address], [place] [address] August, [facility] [address] [id number] [address] [place] [address], [place] [address] August, [facility] [address] [id number] [address] [place] [address], [place] [address] August, [facility] [address] [id number] [address] [place] [address], [place] [address] Jul, [facility] [address] [id number] [address] [place] [address], [place] [address] Jul, [facility] [address] [id number] [address] [place] [address], [place] [address] 24 Jul, 2012 [facility] [address] [id number] [address] [place] [address], [place] [address] 15 Jul, 2012 [facility] [address] [id number] [address] [place] [address], [place] [address] 11 Jul, 2012 [facility] [address] [id number] [address] [place] [address], [place] [address] 05 Jul, 2012 [facility] [address] [id number] [address] [place] [address], [place] [address] 14 Jun, 2012 [facility] [address] [id number] [address] [place] [address], [place] [address] 13 Jun, 2012 [facility] [address] [id number] [address] [place] [address], [place] [address] 07 Jun, 2012 [facility] [address] [id number] [address] [place] [address], [place] [address] 07 Jun, 2012 [facility] [address] [id number] [address] [place] [address], [place] [address] 05 Jun, 2012 [facility] [address] [id number] [address] [place] [address], [place] [address] 19 May, 2012 [facility] [address] [id number] [address] [place] [address], [place] [address] 13 May, 2012 [facility] [address] [id number] [address] [place] [address], [place] [address] May, [facility] [address] [id number] [address] [place] [address], [place] [address] Apr, [facility] [address] [id number] [address] [place] [address], [place] [address] Apr, [facility] [address] [id number] [address] [place] [address], [place] [address] Mar, [facility] [address] [id number] [address] [place] [address], [place] [address] Mar, [facility] [address] [id number] [address] [place] [address], [place] [address] Mar, [facility] [address] [id number] [address] [place] [address], [place] [address] Mar, [facility] [address] [id number] [address] [place] [address], [place] [address] 17 Mar, 2012 [facility] [address] [id number] [address] [place] [address], [place] [address] 13 Mar, 2012 [facility] [address] [id number] [address] [place] [address], [place] [address] Feb, [facility] [address] [id number] [address] [place] [address], [place] [address] Feb, [facility] [address] [id number] [address] [place] [address], [place] [address] Feb, [facility] [address] [id number] [address] [place] [address], [place] [address] 29 Jan, 2012 [facility] [address] [id number] [address] [place] [address], [place] [address] 29 Jan, 2012 [facility] [address] [id number] [address] [place] [address], [place] [address] Jan, [facility] [address] [id number] [address] [place] [address], [place] [address] 24 Jan, 2012 [facility] [address] [id number] [address] [place] [address], [place] [address] 24 Jan, 2012 [facility] [address] [id number] [address] [place] [address], [place] [address] 17 Jan, 2012 [facility] [address] [id number] [address] [place] [address], [place] [address] 17 Jan, 2012 [facility] [address] [id number] [address] [place] [address], [place] [address] 16 Jan, 2012 [facility] [address] [id number] [address] [place] [address], [place] [address] 16 Jan, 2012 [facility] [address] [id number] [address] [place] [address], [place] [address] 18 Sep2011 [facility] [address] [id number] [address] [place] [address], [place] [address] 13 Dec, 2011 [facility] [address] [id number] [address] [place] [address], [place] [address] Dec, [facility] [address] [id number] [address] [place] [address], [place] [address] Nov, [facility] [address] [id number] [address] [place] [address], [place] [address] Nov, [facility] [address] [id number] [address] [place] [address], [place] [address] Nov, [facility] [address] [id number] [address] [place] [address], [place] [address] Oct, [facility] [address] [id number] [address] [place] [address], [place] [address] Oct, [facility] [address] [id number] [address] [place] [address], [place] [address] Sep, [facility] [address] [id number] [address] [place] [address], [place] [address] Sep, [facility] [address] [id number] [address] [place] [address], [place] [address] Sep, [facility] [address] [id number] [address] [place] [address], [place] [address] Sep, [facility] [address] [id number] [address] [place] [address], [place] [address] Sep, [facility] [address] [id number] [address] [place] [address], [place] [address] August, [facility] [address] [id number] [address] [place] [address], [place] [address] August, [facility] [address] [id number] [address] [place] [address], [place] [address] August, [facility] [address] [id number] [address] [place] [address], [place] [address] August, [facility] [address] [id number] [address] [place] [address], [place] [address] August, [facility] [address] [id number] [address] [place] [address], [place] [address] 14 Aug, 2011 [facility] [address] [id number] [address] [place] [address], [place] [address] August, [facility] [address] [id number] [address] [place] [address], [place] [address] August, [facility] [address] [id number] [address] [place] [address], [place] [address] August, [facility] [address] [id number] [address] [place] [address], [place] [address] 27 Jul, 2011 [facility] [address] [id number] [address] [place] [address], [place] [address] 19 Jul, 2011 [facility] [address] [id number] [address] [place] [address], [place] [address] 10 Jul, 2011 [facility] [address] [id number] [address] [place] [address], [place] [address] 04 Jul, 2011 [facility] [address] [id number] [address] [place] [address], [place] [address] 27 Jun, 2011 [facility] [address] [id number] [address] [place] [address], [place] [address] 13 Jun, 2011 [facility] [address] [id number] [address] [place] [address], [place] [address] 13 Jun, 2011 [facility] [address] [id number] [address] [place] [address], [place] [address] 27 May, 2011 [facility] [address] [id number] [address] [place] [address], [place] [address] 24 May, 2011 [facility] [address] [id number] [address] [place] [address], [place] [address] 20 May, 2011 [facility] [address] [id number] [address] [place] [address], [place] [address] 16 May, 2011 [facility] [address] [id number] [address] [place] [address], [place] [address] 15 May, 2011 [facility] [address] [id number] [address] [place] [address], [place] [address] 14 May, 2011 [facility] [address] [id number] [address] [place] [address], [place] [address] 10 May, 2011 [facility] [address] [id number] [address] [place] [address], [place] [address] 09 May, 2011 [facility] [facility] [address] [id number] [address] [place] [address], [place] [address] 02 May, 2011 [facility] [address] [id number] [address] [place] [address], [place] [address] 30 Apr, 2011 [facility] [address] [id number] [address] [place] [address], [place] [address] Apr, [facility] [address] [id number] [address] [place] [address], [place] [address] Apr, [facility] [address] [id number] [address] [place] [address], [place] [address] Apr, [facility] [address] [id number] [address] [place] [address], [place] [address] Apr, [facility] [address] [id number] [address] [place] [address], [place] [address] Apr, [facility] [address] [id number] [address] [place] [address], [place] [address] Apr, [facility] [address] [id number] [address] [place] [address], [place] [address] Apr, [facility] [address] [id number] [address] [place] [address], [place] [address] Apr, [facility] [address] [id number] [address] [place] [address], [place] [address] Apr, [facility] [address] [id number] [address] [place] [address], [place] [address] Apr, [facility] [address] [id number] [address] [place] [id number] Mar, [facility] [address] [facility] [id number] [address] [place] [phone] Mar, [facility] [address] [facility] [id number] [address] [place] [id number] Mar, [facility] [address] [facility] [place] [id number] [address] [place] [id number] Mar, [facility] [address] [facility] [place] [id number] [address] [place] [phone] Feb, [facility] [address] [facility] [place] [id number] [address] [place] [phone] Feb, [facility] [address] [facility] [place] [id number] [address] [place] [id number] Jan, [facility] [address] [facility] [id number] [address] [place] [id number] Nov, IMMUNIZATIONS No Known Immunizations SOCIAL HISTORY [...] eye laser treatment for glaucoma Hospitalization History [facility]- Right side and back pain related to fall, hurts to breathe (ED at 7 pm) 06/07/2017 Hospitalization History [facility] Du[facility] [place]- Anxiety ( went to ED at 1200) 06/07/2017 Hospitalization History COPD exacerbation - Gerald Pizano 2017 Hospitalization History Blood clot, port placement - Gerald Pizano 09/2017
--- OUTSIDE RECORDS SUMMARY | 2019-09-01 14:21 | XMS REPORT ---
Author Author RADHA Sophianaren OLIVA [facility] Address [address] [place] [address] Care Team Providers Care Commutator Inspector Name Role Phone RADHAKATHARINEHAZEL Unavailable PROBLEMS Type Condition ICD9-CM Code RCQ56-QC Code Onset Dates Condition S tatus SNOMED Code Problem Generalized abdominal pain R10.84 Act sree 410523659 Problem Anxiety F41.9 Active 34130910 Problem Proteinuria R80.9 Active 68276672 Problem Hyperlipidemia, unspecified hyperlipidemia E78.5 Active 13242733 Problem Essential hypertension I10 Active 54155245 Problem Venous insufficiency I87.2 Active 62909693 Problem Type 2 diabetes mellitus without complication E11. 9 Active 52731184 Problem Pneumonia due to infectious organism, unspecified laterality, unspecified part of lung J18.9 Active 312 404221 Problem Major depressive disorder, recurrent episode, un specified severity F33.9 Active 57096944 Problem Acute cystitis with hematuria N30.01 Active 32415245 Problem Sciatica, unspecified laterality M54.30 Active 17977330 Problem Carpal tunnel syndrome, right upper limb G56.01 Active 27488525 Problem Chronic pain syndrome G89.4 Active 054370430 Problem Port catheter in place Z95.828 Active 504710250 Problem History of small bowel obstruction Z87.19 Active 222247444 Problem Chronic pancreatitis, unspecified pancreatitis type K86.1 Active 163999463 Problem Presence of IVC filter Z95.828 Active 408764654 Problem Vitamin D deficiency E55.9 Active 99927445 Problem Gastroesophageal reflux disease, esophagitis pre sence not specified K21.9 Active 897441424 Problem Exacerbation of systemic lupus M32.9 Active 28957489 Problem Hypothyroidism, unspecified type E03.9 Active 37710435 Problem Nausea R11.0 Active 747051880 Problem Gastroesophageal reflux disease without esophagitis K21.9 Active 183983102 Problem Tobacco abuse counseling Z71.6 Activ e 18447572 Problem Hypertension, benign I10 Active 58729940 Problem Chronic obstructive pulmonary disease, unspecified COPD ty pe J44.9 Active 64912562 Problem Other iron deficiency anemia D50.8 A ctive 55006713 Problem Obstructive sleep apnea G47.33 Active 69018949 Problem History of pulmonary embolism Z86.711 Active 818108646 Problem 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 A ctive 061643162 Problem Opiate dependence, continuous F11.20 Active 901185607 Problem Cannabis abuse with physiological dependence F12.1 0 Active 07418477 Problem Violation of controlled substance agreement Z91.14 Active 176508935 ALLERGIES No Information ENCOUNTERS Encounter Location Date Diagnosis [facility] [address] [facility] [id number] [address] [place] [address] August, Type 2 diabetes mellitus wit hout complication E11.9 [place] [address] [place] [id number] [place] [address] 17 Jul, 2019 Essential hypertension I10 ; Type 2 diabetes mellitus without complication E11.9 and Other iron deficiency anemia D50.8 [place] [address] [facility] [id number] [address] [place] [phone] Jul, [place] [address] [facility] [id number] [address] [place] [address] May, [facility] [address] [place] [id number] [address] [place] [phone] Apr, Tobacco abuse Z72.0 ; Hypert ension, benign I10 and Tobacco abuse counseling Z71.6 [place] [address] [facility] [id number] [address] [place] [phone] Sep, [place] [address] [facility] [id number] [address] [place] [address] Sep, [place] [address] [place] [id number] [address] [place] [address] Sep, Essential hypertension I10 [place] [address] [place] [id number] [address] [place] [phone] Sep, [place] [address] [place] [id number] [address] [place] [address] Sep, [facility] [address] [facility] [id number] [address] [place] [phone] Sep, Neck mass R22.1 [facility] [address] [facility] [id number] [address] [place] [phone] August, Neck mass R22.1 [facility] [address] [facility] [id number] [address] [place] [address] Feb, Left foot pain M79.672 [facility] [address] [facility] [id number] [address] [place] [address] Jun, Chronic pain syndrome G89.4 [facility] [address] [place] [id number] [place] [id number] May, [facility] [address] [facility] [id number] [address] [place] [phone] May, [facility] [address] [facility] [id number] [address] [place] [address] May, Chronic pain syndrome G89.4 [facility] [address] [facility] [id number] [address] [place] [phone] 13 May, 2017 [facility] [address] [facility] [id number] [address] [place] [phone] 10 May, 2017 Encounter for immunization Z 23 and Laceration of left index finger without foreign body without damage to nail, initial encounter S61.211A [facility] [address] [facility] [id number] [address] [place] [phone] 09 May, 2017 Chronic pain syndrome G89.4 [facility] [address] [facility] [id number] [address] [place] [phone] 07 May, 2017 [facility] [address] [facility] [id number] [address] [place] [address] Apr, Cannabis abuse with physiolo gical dependence F12.10 ; Violation of controlled substance agreement Z91.14 and Opiate dependence, continuous F11.20 [facility] [address] [facility] [id number] [address] [place] [address] Apr, Type 2 diabetes mellitus wit hout complication E11.9 [facility] [address] [facility] [id number] [address] [place] [phone] Apr, [facility] [address] [facility] [id number] [address] [place] [phone] Apr, Chronic pain syndrome G89.4 [facility] [address] [facility] [id number] [address] [place] [address] Apr, Viral syndrome B34.9 [facility] [address] [facility] [id number] [address] [place] [address] Apr, [facility] [address] [place] [id number] [address] [place] [address] Mar, Chronic pain syndrome G89.4 [facility] [address] [place] [id number] [address] [place] [phone] Mar, [facility] [address] [facility] [id number] [address] [place] [address] Mar, [facility] [address] [place] [id number] [address] [place] [phone] Feb, Essential hypertension I10 ; Chronic pain syndrome G89.4 ; Hyperlipidemia, unspecified hyperlipidemia E78.5 ; 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 and Encounter for immunization Z23 [facility] [address] [facility] [id number] [address] [place] [address] Feb, Chronic pain syndrome G89.4 [facility] [address] [facility] [id number] [address] [place] [address] Jan, Chronic pain syndrome G89.4 [facility] [address] [facility] [id number] [address] [place] [id number] Jan, [facility] [address] [place] [id number] [address] [place] [address] Jan, Bronchitis J40 ; Port cathet er in place Z95.828 and Chronic pain syndrome G89.4 [facility] [place] [address] [place] [id number] [place] [address] [id number] Jan, [facility] [address] [id number] [address] [place] [address] Dec, Chronic pain syndrome G89.4 [facility] [address] [id number] [address] [place] [address] Dec, Chronic pain syndrome G89.4 [facility] [address] [id number] [address] [place] [phone] Dec, [facility] [address] [id number] [address] [place] [address] Nov, [facility] [address] [id number] [address] [place] [phone] Nov, Chronic pain syndrome G89.4 [facility] [address] [id number] [address] [place] [phone] Oct, Chronic pain syndrome G89.4 [facility] [address] [id number] [address] [place] [id number] Oct, [facility] [address] [id number] [address] [place] [phone] Sep, Chronic pain syndrome G89.4 [facility] [address] [id number] [address] [place] [phone] Sep, Exacerbation of systemic lup us M32.9 [facility] [address] [id number] [address] [place] [phone] Sep, [facility] [address] [id number] [address] [place] [phone] Sep, [facility] [address] [id number] [address] [place] [phone] Sep, Nausea R11.0 [facility] [address] [facility] [id number] [address] [place] [phone] August, Chronic pain syndrome G89.4 [place] [address] [facility] [id number] [address] [place] [phone] August, [place] [address] [facility] [id number] [address] [place] [phone] August, Chronic pain syndrome G89.4 [place] [address] [facility] [id number] [address] [place] [phone] Jul, Pneumonia due to infectious organism, unspecified laterality, unspecified part of lung J18.9 and Tobacco abuse counseling Z71.6 [place] [address] [facility] [id number] [address] [place] [phone] Jul, Chronic pain syndrome G89.4 [place] [address] [place] [id number] [address] [place] [id number] Jun, Essential hypertension I10 [place] [address] [place] [id number] [address] [place] [phone] Jun, Pneumonia due to infectious organism, unspecified laterality, unspecified part of lung J18.9 [place] [address] [place] [id number] [address] [place] [phone] Jun, Chronic pain syndrome G89.4 [place] [address] [facility] [id number] [address] [place] [phone] May, Essential hypertension I10 ; Type 2 [...] and Gastroesophageal reflux disease without esophagitis K21.9 [place] [address] [place] [id number] [address] [place] [phone] Apr, [facility] [address] [facility] [id number] [address] [place] [phone] Apr, Pneumonia due to infectious organism, unspecified laterality, unspecified part of lung J18.9 and Nausea R11.0 [facility] [address] [id number] [address] [place] [phone] Apr, Essential hypertension I10 ; Chronic pain syndrome G89.4 ; Type 2 diabetes mellitus without complication E11.9 ; Hyperlipidemia, unspecified hyperlipidemia E78.5 ; Major depressive disorder, recurrent episode, unspecified severity F33.9 ; Sciatica, unspecified laterality M54.30 ; Chronic obstructive pulmonary disease, unspecified COPD type J44.9 ; Pneumonia due to infectious organism, unspecified laterality, unspecified part of lung J18.9 and Nausea R11.0 [facility] [address] [facility] [id number] [address] [place] [phone] Mar, [facility] [address] [facility] [id number] [address] [place] [phone] Mar, [facility] [address] [facility] [id number] [address] [place] [phone] Mar, [place] [address] [facility] [id number] [address] [place] [phone] Mar, Anxiety F41.9 and Major depr essive disorder, recurrent episode, unspecified severity F33.9 [place] [id number] [facility] [id number] [address] [place] [phone] Mar, [facility] [address] [id number] [address] [place] [phone] Mar, [place] [address] [facility] [id number] [address] [place] [phone] Mar, Generalized abdominal pain R 10.84 ; Acute cystitis with hematuria N30.01 and Essential hypertension I10 [facility] [address] [facility] [id number] [address] [place] [phone] 15 Dec, 2016 Sore throat J02.9 and Exacer bation of systemic lupus M32.9 [place] [id number] [place] [address] Feb, Type 2 diabetes mellitus wit hout [...] reflux disease, esophagitis presence not specified K21.9 [place] [address] [address] Feb, [place] [address] [id number] Jan, [facility] [address] [address] Jan, Right arm pain M79.601 [address] of right wrist, initial encounter S66.911A [place] [address] [address] Jan, [facility] [place] [address] [id number] 30 Dec, 2015 Generalized abdominal pain R 10.84 [place] [id number] [place] [address] 23 Dec, 2015 Adenopathy R59.1 [place] [address] [id number] 19 Dec, 2016 Bronchitis J40 [place] [address] [place] [id number] [address] [place] [id number] 14 Dec, 2015 [place] [address] [id number] Dec, Essential hypertension I10 [facility] [address] [facility] [id number] [address] [place] [phone] Nov, [facility] [address] [facility] [id number] [address] [place] [id number] Nov, [facility] [address] [place] [id number] [address] [place] [phone] Nov, Essential hypertension I10 ; Hyperlipidemia, unspecified [...] Type 2 diabetes mellitus without complication E11.9 [place] [id number] [place] [address] Nov, [place] [address] [place] [id number] [address] [place] [phone] Oct, Type 2 diabetes mellitus wit hout complication E11.9 ; Essential hypertension I10 ; Other viral warts B07.8 ; [place] or callus L84 and Hyperlipidemia, unspecified hyperlipidemia E78.5 [facility] [address] [facility] [id number] [address] [place] [phone] Sep, [place] [address] [place] [id number] [address] [place] [phone] Sep, [place] [address] [place] [id number] [address] [place] [phone] Jun, [facility] [address] [place] [id number] [address] [place] [phone] Jun, [place] [address] [id number] [address] [place] [phone] May, [facility] [address] [id number] [address] [place] [phone] Apr, [facility] [address] [id number] [address] [place] [phone] Feb, [facility] [address] [id number] [address] [place] [phone] Feb, COPD exacerbation J44.1 and Acute upper respiratory infection J06.9 [facility] [address] [id number] [address] [place] [phone] Feb, [facility] [address] [id number] [address] [place] [phone] Feb, [facility] [address] [facility] [id number] [address] [place] [phone] Feb, [facility] [address] [id number] [address] [place] [phone] Feb, [facility] [address] [facility] [id number] [address] [place] [phone] Jan, Left hip pain M25.552 [facility] [address] [facility] [id number] [address] [place] [address] Jan, Essential hypertension I10 ; Chronic pain syndrome G89.4 ; Type 2 diabetes mellitus without complication E11.9 and Hyperlipidemia, unspecified hyperlipidemia E78.5 [facility] [address] [id number] [address] [place] [id number] 28 Jul, 2014 [facility] [address] [facility] [id number] [address] [place] [phone] 14 Jul, 2014 [facility] [address] [facility] [id number] [address] [place] [id number] Jul, [facility] [address] [facility] [id number] [address] [place] [phone] Jun, [facility] [address] [id number] [address] [place] [address], [place] [address] Jun, [facility] [address] [id number] [address] [place] [address], [place] [address] Jun, [facility] [address] [id number] [address] [place] [address], [place] [address] Jun, [facility] [address] [id number] [address] [place] [address], [place] [address] Jun, [facility] [address] [id number] [address] [place] [address], [place] [address] Jun, [facility] [address] [id number] [address] [place] [address], [place] [address] Jun, [facility] [address] [id number] [address] [place] [address], [place] [address] Jun, [facility] [address] [id number] [address] [place] [address], [place] [address] Jun, [facility] [address] [id number] [address] [place] [address], [place] [address] Jun, [facility] [address] [id number] [address] [place] [address], [place] [address] Jun, [facility] [address] [id number] [address] [place] [address], [place] [address] Jun, [facility] [address] [id number] [address] [place] [address], [place] [address] Apr, [facility] [address] [id number] [address] [place] [address], [place] [address] Apr, [facility] [address] [id number] [address] [place] [address], [place] [address] Apr, [facility] [address] [id number] [address] [place] [address], [place] [address] Apr, [facility] [address] [id number] [address] [place] [address], [place] [address] Apr, [facility] [address] [id number] [address] [place] [address], [place] [address] Apr, [facility] [address] [id number] [address] [place] [address], [place] [address] Apr, [facility] [address] [id number] [address] [place] [address], [place] [address] Apr, [facility] [address] [id number] [address] [place] [address], [place] [address] Mar, [facility] [address] [id number] [address] [place] [address], [place] [address] Mar, [facility] [address] [id number] [address] [place] [address], [place] [address] Mar, [facility] [address] [id number] [address] [place] [address], [place] [address] Mar, [facility] [address] [id number] [address] [place] [address], [place] [address] Mar, [facility] [address] [id number] [address] [place] [address], [place] [address] Mar, [facility] [address] [id number] [address] [place] [address], [place] [address] 15 Mar, 2014 [facility] [address] [id number] [address] [place] [address], [place] [address] Mar, [facility] [address] [id number] [address] [place] [address], [place] [address] Mar, [facility] [address] [id number] [address] [place] [address], [place] [address] 08 Mar, 2014 [facility] [address] [id number] [address] [place] [address], [place] [address] 08 Mar, 2014 [facility] [address] [id number] [address] [place] [address], [place] [address] Mar, [facility] [address] [id number] [address] [place] [address], [place] [address] Mar, [facility] [address] [id number] [address] [place] [address], [place] [address] Feb, [facility] [address] [id number] [address] [place] [address], [place] [address] Feb, [facility] [address] [id number] [address] [place] [address], [place] [address] Feb, [facility] [address] [id number] [address] [place] [address], [place] [address] Feb, [facility] [address] [id number] [address] [place] [address], [place] [address] Feb, [facility] [address] [id number] [address] [place] [address], [place] [address] Feb, [facility] [address] [id number] [address] [place] [address], [place] [address] Feb, [facility] [address] [id number] [address] [place] [address], [place] [address] Feb, [facility] [address] [id number] [address] [place] [address], [place] [address] Jan, [facility] [address] [id number] [address] [place] [address], [place] [address] Jan, [facility] [address] [id number] [address] [place] [address], [place] [address] Jan, [facility] [address] [id number] [address] [place] [address], [place] [address] Jan, [facility] [address] [id number] [address] [place] [address], [place] [address] Jan, [facility] [address] [id number] [address] [place] [address], [place] [address] Jan, [facility] [address] [id number] [address] [place] [address], [place] [address] Jan, [facility] [address] [id number] [address] [place] [address], [place] [address] Jan, [facility] [address] [id number] [address] [place] [address], [place] [address] Jan, [facility] [address] [id number] [address] [place] [address], [place] [address] 30 Dec, 2013 [facility] [address] [id number] [address] [place] [address], [place] [address] 30 Dec, 2013 [facility] [address] [id number] [address] [place] [address], [place] [address] Dec, 2013 [facility] [address] [id number] [address] [place] [address], [place] [address] Dec, 2013 [facility] [address] [id number] [address] [place] [address], [place] [address] 16 Dec, 2013 [facility] [address] [id number] [address] [place] [address], [place] [address] 16 Dec, 2013 [facility] [address] [id number] [address] [place] [address], [place] [address] 08 Dec, 2013 [facility] [address] [id number] [address] [place] [address], [place] [address] 08 Dec, 2013 [facility] [address] [id number] [address] [place] [address], [place] [address] Dec, [facility] [address] [id number] [address] [place] [address], [place] [address] Dec, [facility] [address] [id number] [address] [place] [address], [place] [address] Nov, [facility] [address] [id number] [address] [place] [address], [place] [address] Nov, [facility] [address] [id number] [address] [place] [address], [place] [address] Nov, [facility] [address] [id number] [address] [place] [address], [place] [address] Nov, [facility] [address] [id number] [address] [place] [address], [place] [address] Nov, [facility] [address] [id number] [address] [place] [address], [place] [address] Nov, [facility] [address] [id number] [address] [place] [address], [place] [address] Nov, [facility] [address] [id number] [address] [place] [address], [place] [address] Nov, [facility] [address] [id number] [address] [place] [address], [place] [address] Nov, [facility] [address] [id number] [address] [place] [address], [place] [address] Nov, [facility] [address] [id number] [address] [place] [address], [place] [address] Nov, [facility] [address] [id number] [address] [place] [address], [place] [address] Nov, [facility] [address] [id number] [address] [place] [address], [place] [address] Nov, [facility] [address] [id number] [address] [place] [address], [place] [address] Oct, [facility] [address] [id number] [address] [place] [address], [place] [address] Oct, [facility] [address] [id number] [address] [place] [address], [place] [address] Oct, [facility] [address] [id number] [address] [place] [address], [place] [address] Oct, [facility] [address] [id number] [address] [place] [address], [place] [address] Oct, [facility] [address] [id number] [address] [place] [address], [place] [address] Oct, [facility] [address] [id number] [facility] [place] [address] Sep, [facility] [address] [id number] [facility] [place] [address] Sep, [facility] [address] [id number] [facility] [place] [address] Sep, [facility] [address] [id number] [facility] [place] [address] Sep, [facility] [address] [id number] [address] [place] [address], [place] [address] Sep, [facility] [address] [id number] [address] [place] [address], [place] [address] Sep, [facility] [address] [id number] [address] [place] [address], [place] [address] Sep, [facility] [address] [id number] [address] [place] [address], [place] [address] Sep, [facility] [address] [id number] [address] [place] [address], [place] [address] Sep, [facility] [address] [id number] [address] [place] [address], [place] [address] Sep, [facility] [address] [id number] [address] [place] [address], [place] [address] Sep, [facility] [address] [id number] [address] [place] [address], [place] [address] Sep, [facility] [address] [id number] [address] [place] [address], [place] [address] August, [facility] [address] [id number] [address] [place] [address], [place] [address] August, [facility] [address] [id number] [address] [place] [address], [place] [address] Jul, [facility] [address] [id number] [address] [place] [address], [place] [address] 29 Jul, 2013 [facility] [address] [id number] [facility] [place] [address] Jul, [facility] [address] [id number] [address] [place] [address], [place] [address] 24 Jul, 2013 [facility] [address] [id number] [address] [place] [address], [place] [address] Jul, [facility] [address] [id number] [address] [place] [address], [place] [address] Jul, [facility] [address] [id number] [address] [place] [address], [place] [address] Jul, [facility] [address] [id number] [address] [place] [address], [place] [address] Jul, [facility] [address] [id number] [address] [place] [address], [place] [address] Jul, [facility] [address] [id number] [address] [place] [address], [place] [address] Jul, [facility] [address] [id number] [address] [place] [address], [place] [address] Jul, [facility] [address] [id number] [address] [place] [address], [place] [address] 31 Jun, 2013 [facility] [address] [id number] [address] [place] [address], [place] [address] 31 Jun, 2013 [facility] [address] [id number] [address] [place] [address], [place] [address] 28 Jun, 2013 [facility] [address] [id number] [address] [place] [address], [place] [address] 28 Jun, 2013 [facility] [address] [id number] [address] [place] [address], [place] [address] Jun, [facility] [address] [id number] [address] [place] [address], [place] [address] Jun, [facility] [address] [id number] [address] [place] [address], [place] [address] Jun, [facility] [address] [id number] [address] [place] [address], [place] [address] Jun, [facility] [address] [id number] [address] [place] [address], [place] [address] May, [facility] [address] [id number] [address] [place] [address], [place] [address] May, [facility] [address] [id number] [address] [place] [address], [place] [address] May, [facility] [address] [id number] [address] [place] [address], [place] [address] May, [facility] [address] [id number] [address] [place] [address], [place] [address] May, [facility] [address] [id number] [address] [place] [address], [place] [address] May, [facility] [address] [id number] [address] [place] [address], [place] [address] May, [facility] [address] [id number] [address] [place] [address], [place] [address] May, [facility] [address] [id number] [address] [place] [address], [place] [address] May, [facility] [address] [id number] [address] [place] [address] May, [facility] [address] [id number] [address] [place] [address], [place] [address] May, [facility] [address] [id number] [address] [place] [address], [place] [address] May, [facility] [address] [id number] [address] [place] [address] May, [facility] [address] [id number] [address] [place] [address] Apr, [facility] [address] [id number] [address] [place] [address], [place] [address] Apr, [facility] [address] [id number] [address] [place] [address], [place] [address] Apr, [facility] [address] [id number] [address] [place] [address], [place] [address] Apr, [facility] [address] [id number] [address] [place] [address], [place] [address] Apr, [facility] [address] [id number] [address] [place] [address], [place] [address] Apr, [facility] [address] [id number] [address] [place] [address], [place] [address] Apr, [facility] [address] [id number] [address] [place] [address], [place] [address] Apr, [facility] [address] [id number] [address] [place] [address], [place] [address] Apr, [facility] [address] [id number] [address] [place] [address], [place] [address] Apr, [facility] [address] [id number] [address] [place] [address], [place] [address] Apr, [facility] [address] [id number] [address] [place] [address], [place] [address] Apr, [facility] [address] [id number] [address] [place] [address], [place] [address] Apr, [facility] [address] [id number] [address] [place] [address], [place] [address] Apr, [facility] [address] [id number] [address] [place] [address], [place] [address] Apr, [facility] [address] [id number] [address] [place] [address], [place] [address] Mar, [facility] [address] [id number] [address] [place] [address], [place] [address] Mar, [facility] [address] [id number] [address] [place] [address], [place] [address] Mar, [facility] [address] [id number] [address] [place] [address], [place] [address] Mar, [facility] [address] [id number] [address] [place] [address], [place] [address] Mar, [facility] [address] [id number] [address] [place] [address], [place] [address] Mar, [facility] [address] [id number] [address] [place] [address], [place] [address] Mar, [facility] [address] [id number] [address] [place] [address], [place] [address] Mar, [facility] [address] [id number] [address] [place] [address], [place] [address] Mar, [facility] [address] [id number] [address] [place] [address], [place] [address] Mar, [facility] [address] [id number] [address] [place] [address], [place] [address] Mar, [facility] [address] [id number] [address] [place] [address], [place] [address] Mar, [facility] [address] [id number] [address] [place] [address], [place] [address] Feb, [facility] [address] [id number] [address] [place] [address], [place] [address] Feb, [facility] [address] [id number] [address] [place] [address], [place] [address] Feb, [facility] [address] [id number] [address] [place] [address], [place] [address] Feb, [facility] [address] [id number] [address] [place] [address], [place] [address] Feb, [facility] [address] [id number] [address] [place] [address], [place] [address] Feb, [facility] [address] [id number] [address] [place] [address], [place] [address] Feb, [facility] [address] [id number] [address] [place] [address], [place] [address] Feb, [facility] [address] [id number] [address] [place] [address], [place] [address] Jan, [facility] [address] [id number] [address] [place] [address], [place] [address] Jan, [facility] [address] [id number] [address] [place] [address], [place] [address] Jan, [facility] [address] [id number] [address] [place] [address], [place] [address] Jan, [facility] [address] [id number] [address] [place] [address], [place] [address] Jan, [facility] [address] [id number] [address] [place] [address], [place] [address] Jan, [facility] [address] [id number] [address] [place] [address], [place] [address] Jan, [facility] [address] [id number] [address] [place] [address], [place] [address] 27 Dec, 2012 [facility] [address] [id number] [address] [place] [address] 23 Dec, 2012 [facility] [address] [id number] [address] [place] [address], [place] [address] 23 Dec, 2012 [facility] [address] [id number] [address] [place] [address], [place] [address] 12 Dec, 2012 [facility] [address] [id number] [address] [place] [address], [place] [address] Dec, [facility] [address] [id number] [address] [place] [address], [place] [address] Nov, [facility] [address] [id number] [address] [place] [address], [place] [address] Nov, [facility] [address] [id number] [address] [place] [address], [place] [address] Nov, [facility] [address] [id number] [address] [place] [address], [place] [address] Nov, [facility] [address] [id number] [address] [place] [address], [place] [address] Nov, [facility] [address] [id number] [address] [place] [address], [place] [address] Nov, [facility] [address] [id number] [address] [place] [address], [place] [address] Nov, [facility] [address] [id number] [address] [place] [address], [place] [address] Oct, [facility] [address] [id number] [address] [place] [address], [place] [address] Oct, [facility] [address] [id number] [address] [place] [address], [place] [address] Oct, [facility] [address] [id number] [address] [place] [address], [place] [address] Oct, [facility] [address] [id number] [address] [place] [address], [place] [address] Oct, [facility] [address] [id number] [address] [place] [address], [place] [address] Oct, [facility] [address] [id number] [address] [place] [address], [place] [address] Oct, [facility] [address] [id number] [address] [place] [address], [place] [address] Oct, [facility] [address] [id number] [address] [place] [address], [place] [address] Sep, [facility] [address] [id number] [address] [place] [address], [place] [address] 14 Sep, 2012 [facility] [address] [id number] [address] [place] [address], [place] [address] 13 Sep, 2012 [facility] [address] [id number] [address] [place] [address], [place] [address] 12 Sep, 2012 [facility] [address] [id number] [address] [place] [address], [place] [address] Sep, [facility] [address] [id number] [address] [place] [address], [place] [address] 06 Sep, 2012 [facility] [address] [id number] [address] [place] [address], [place] [address] August, [facility] [address] [id number] [address] [place] [address], [place] [address] August, [facility] [address] [id number] [address] [place] [address], [place] [address] August, [facility] [address] [id number] [address] [place] [address], [place] [address] August, [facility] [address] [id number] [address] [place] [address], [place] [address] August, [facility] [address] [id number] [address] [place] [address], [place] [address] Jul, [facility] [address] [id number] [address] [place] [address], [place] [address] Jul, [facility] [address] [id number] [address] [place] [address], [place] [address] 24 Jul, 2012 [facility] [address] [id number] [address] [place] [address], [place] [address] 15 Jul, 2012 [facility] [address] [id number] [address] [place] [address], [place] [address] 11 Jul, 2012 [facility] [address] [id number] [address] [place] [address], [place] [address] 05 Jul, 2012 [facility] [address] [id number] [address] [place] [address], [place] [address] 14 Jun, 2012 [facility] [address] [id number] [address] [place] [address], [place] [address] 13 Jun, 2012 [facility] [address] [id number] [address] [place] [address], [place] [address] 07 Jun, 2012 [facility] [address] [id number] [address] [place] [address], [place] [address] 07 Jun, 2012 [facility] [address] [id number] [address] [place] [address], [place] [address] 05 Jun, 2012 [facility] [address] [id number] [address] [place] [address], [place] [address] 19 May, 2012 [facility] [address] [id number] [address] [place] [address], [place] [address] 13 May, 2012 [facility] [address] [id number] [address] [place] [address], [place] [address] May, [facility] [address] [id number] [address] [place] [address], [place] [address] Apr, [facility] [address] [id number] [address] [place] [address], [place] [address] Apr, [facility] [address] [id number] [address] [place] [address], [place] [address] Mar, [facility] [address] [id number] [address] [place] [address], [place] [address] Mar, [facility] [address] [id number] [address] [place] [address], [place] [address] Mar, [facility] [address] [id number] [address] [place] [address], [place] [address] Mar, [facility] [address] [id number] [address] [place] [address], [place] [address] 17 Mar, 2012 [facility] [address] [id number] [address] [place] [address], [place] [address] 13 Mar, 2012 [facility] [address] [id number] [address] [place] [address], [place] [address] Feb, [facility] [address] [id number] [address] [place] [address], [place] [address] Feb, [facility] [address] [id number] [address] [place] [address], [place] [address] Feb, [facility] [address] [id number] [address] [place] [address], [place] [address] 29 Jan, 2012 [facility] [address] [id number] [address] [place] [address], [place] [address] 29 Jan, 2012 [facility] [address] [id number] [address] [place] [address], [place] [address] Jan, [facility] [address] [id number] [address] [place] [address], [place] [address] 24 Jan, 2012 [facility] [address] [id number] [address] [place] [address], [place] [address] 24 Jan, 2012 [facility] [address] [id number] [address] [place] [address], [place] [address] 17 Jan, 2012 [facility] [address] [id number] [address] [place] [address], [place] [address] 17 Jan, 2012 [facility] [address] [id number] [address] [place] [address], [place] [address] 16 Jan, 2012 [facility] [address] [id number] [address] [place] [address], [place] [address] 16 Jan, 2012 [facility] [address] [id number] [address] [place] [address], [place] [address] 18 Sep2011 [facility] [address] [id number] [address] [place] [address], [place] [address] 13 Dec, 2011 [facility] [address] [id number] [address] [place] [address], [place] [address] Dec, [facility] [address] [id number] [address] [place] [address], [place] [address] Nov, [facility] [address] [id number] [address] [place] [address], [place] [address] Nov, [facility] [address] [id number] [address] [place] [address], [place] [address] Nov, [facility] [address] [id number] [address] [place] [address], [place] [address] Oct, [facility] [address] [id number] [address] [place] [address], [place] [address] Oct, [facility] [address] [id number] [address] [place] [address], [place] [address] Sep, [facility] [address] [id number] [address] [place] [address], [place] [address] Sep, [facility] [address] [id number] [address] [place] [address], [place] [address] Sep, [facility] [address] [id number] [address] [place] [address], [place] [address] Sep, [facility] [address] [id number] [address] [place] [address], [place] [address] Sep, [facility] [address] [id number] [address] [place] [address], [place] [address] August, [facility] [address] [id number] [address] [place] [address], [place] [address] August, [facility] [address] [id number] [address] [place] [address], [place] [address] August, [facility] [address] [id number] [address] [place] [address], [place] [address] August, [facility] [address] [id number] [address] [place] [address], [place] [address] August, [facility] [address] [id number] [address] [place] [address], [place] [address] 14 Aug, 2011 [facility] [address] [id number] [address] [place] [address], [place] [address] August, [facility] [address] [id number] [address] [place] [address], [place] [address] August, [facility] [address] [id number] [address] [place] [address], [place] [address] August, [facility] [address] [id number] [address] [place] [address], [place] [address] 27 Jul, 2011 [facility] [address] [id number] [address] [place] [address], [place] [address] 19 Jul, 2011 [facility] [address] [id number] [address] [place] [address], [place] [address] 10 Jul, 2011 [facility] [address] [id number] [address] [place] [address], [place] [address] 04 Jul, 2011 [facility] [address] [id number] [address] [place] [address], [place] [address] 27 Jun, 2011 [facility] [address] [id number] [address] [place] [address], [place] [address] 13 Jun, 2011 [facility] [address] [id number] [address] [place] [address], [place] [address] 13 Jun, 2011 [facility] [address] [id number] [address] [place] [address], [place] [address] 27 May, 2011 [facility] [address] [id number] [address] [place] [address], [place] [address] 24 May, 2011 [facility] [address] [id number] [address] [place] [address], [place] [address] 20 May, 2011 [facility] [address] [id number] [address] [place] [address], [place] [address] 16 May, 2011 [facility] [address] [id number] [address] [place] [address], [place] [address] 15 May, 2011 [facility] [address] [id number] [address] [place] [address], [place] [address] 14 May, 2011 [facility] [address] [id number] [address] [place] [address], [place] [address] 10 May, 2011 [facility] [address] [id number] [address] [place] [address], [place] [address] 09 May, 2011 [facility] [address] [id number] [address] [place] [address], [place] [address] 02 May, 2011 [facility] [address] [id number] [address] [place] [address], [place] [phone] 30 Apr, 2011 [facility] [address] [id number] [address] [place] [address], [place] [address] Apr, [facility] [address] [id number] [address] [place] [address], [place] [address] Apr, [facility] [address] [id number] [address] [place] [address], [place] [address] Apr, [facility] [address] [id number] [address] [place] [address], [place] [address] Apr, [facility] [address] [id number] [address] [place] [address], [place] [address] Apr, [facility] [address] [id number] [address] [place] [address], [place] [address] Apr, [facility] [address] [id number] [address] [place] [address], [place] [address] Apr, [facility] [address] [id number] [address] [place] [address], [place] [address] Apr, [facility] [address] [id number] [address] [place] [address], [place] [address] Apr, [facility] [address] [id number] [address] [place] [address], [place] [address] Apr, [facility] [address] [id number] [address] [place] [phone] Mar, [facility] [address] [facility] [id number] [address] [place] [phone] Mar, [facility] [address] [facility] [id number] [address] [place] [phone] Mar, [facility] [address] [facility] [id number] [address] [place] [phone] Mar, [facility] [address] [facility] [id number] [address] [place] [phone] Feb, [facility] [address] [facility] [id number] [address] [place] [phone] Feb, [facility] [address] [facility] [id number] [address] [place] [phone] Jan, [facility] [address] [facility] [id number] [address] [place] [phone] Nov, IMMUNIZATIONS No Known Immunizations SOCIAL HISTORY [...] eye laser treatment for glaucoma Hospitalization History [facility]- Right side and back pain related to fall, hurts to breathe (ED at 7 pm) 06/07/2017 Hospitalization History [facility] [place]- Anxiety ( went to ED at 1200) 06/07/2017 Hospitalization History COPD exacerbation - Gerald Pizano 2017 Hospitalization History Blood clot, port placement - Gerald Pizano 09/2017
--- OUTSIDE RECORDS SUMMARY | 2019-09-01 14:22 | XMS REPORT ---
Author Author RADHA [facility]ianaren [facility] Address [address] [place] [address] Care Team Providers Care Low Voltage Technician Name Role Phone GASPER GARCIAY Unavailable PROBLEMS Type Condition ICD9-CM Code QTG66-EG Code Onset Dates Condition S tatus SNOMED Code Problem Proteinuria R80.9 Active 95970971 Problem Essential hypertension I10 Active 35215816 Problem Anxiety F41.9 Active 17382399 Problem Type 2 diabetes mellitus without complication E11. 9 Active 74779370 Problem Hyperlipidemia, unspecified hyperlipidemia E78.5 Active 76853439 Problem Major depressive disorder, recurrent episode, un specified severity F33.9 Active 35985832 Problem Sciatica, unspecified laterality M54.30 Active 71958049 Problem Acute cystitis with hematuria N30.01 Active 56054552 Problem Chronic pain syndrome G89.4 Active 822395308 Problem Exacerbation of systemic lupus M32.9 Active 65940655 Problem Generalized abdominal pain R10.84 Act sree 149332484 Problem Carpal tunnel syndrome, right upper limb G56.01 Active 17914379 Problem History of small bowel obstruction Z87.19 Active 071146067 Problem History of pulmonary embolism Z86.711 Active 492628267 Problem Presence of IVC filter Z95.828 Active 952388112 Problem Port catheter in place Z95.828 Active 296972563 Problem Gastroesophageal reflux disease, esophagitis pre sence not specified K21.9 Active 866469397 Problem Chronic pancreatitis, unspecified pancreatitis type K86.1 Active 643557212 Problem Hypothyroidism, unspecified type E03.9 Active 10029565 Problem Vitamin D deficiency E55.9 Active 36925669 Problem Nausea R11.0 Active 010445161 Problem Pneumonia due to infectious organism, unspecified laterality, unspecified part of lung J18.9 Active 312 497187 Problem Gastroesophageal reflux disease without esophagitis K21.9 Active 131897599 Problem Violation of controlled substance agreement Z91.14 Active 662113913 Problem Obstructive sleep apnea G47.33 Active 21563813 Problem Hypertension, benign I10 Active 08500691 Problem Venous insufficiency I87.2 Active 58275053 Problem Chronic obstructive pulmonary disease, unspecified COPD ty pe J44.9 Active 11669583 Problem Tobacco abuse counseling Z71.6 Activ e 52986544 Problem 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 A ctive 896904100 Problem Opiate dependence, continuous F11.20 Active 082933710 Problem Cannabis abuse with physiological dependence F12.1 0 Active 56695737 ALLERGIES No Information ENCOUNTERS Encounter Location Date Diagnosis [facility] [address] [address] Jul, [facility] [address] [address] May, [facility] [address] [address] Apr, Tobacco abuse Z72.0 ; Hypert ension, benign I10 and Tobacco abuse counseling Z71.6 [facility] [address] [place] [id number] [address] [place] [address] Sep, [facility] [address] [address] Sep, [facility] [address] [address] Sep, Essential hypertension I10 [facility] [address] [place] [id number] [place] [address] Sep, [facility] [address] [place] [id number] [address] [place] [address] Sep, [facility] [address] [id number] [address] [place] [address] Sep, Neck mass R22.1 [facility] [address] [id number] [address] [place] [address] August, Neck mass R22.1 [facility] [address] [id number] [address] [place] [address] Feb, Left foot pain M79.672 [facility] [address] [facility] [id number] [address] [place] [address] Jun, Chronic pain syndrome G89.4 [facility] [address] [place] [id number] [place] [id number] May, [facility] [address] [facility] [id number] [address] [place] [phone] May, [facility] [address] [facility] [id number] [address] [place] [address] May, Chronic pain syndrome G89.4 [facility] [address] [facility] [id number] [address] [place] [id number] 13 May, 2017 [facility] [address] [facility] [id number] [address] [place] [id number] 10 May, 2017 Encounter for immunization Z 23 and Laceration of left index finger without foreign body without damage to nail, initial encounter S61.211A [facility] [address] [facility] [id number] [address] [place] [id number] 09 May, 2017 Chronic pain syndrome G89.4 [facility] [address] [facility] [id number] [address] [place] [id number] 07 May, 2017 [facility] [address] [facility] [id number] [address] [place] [id number] Apr, Cannabis abuse with physiolo gical dependence F12.10 ; Violation of controlled substance agreement Z91.14 and Opiate dependence, continuous F11.20 [facility] [address] [facility] [id number] [address] [place] [id number] Apr, Type 2 diabetes mellitus wit hout complication E11.9 [facility] [address] [facility] [id number] [address] [place] [id number] Apr, [facility] [address] [facility] [id number] [address] [place] [address] Apr, Chronic pain syndrome G89.4 [facility] [address] [facility] [id number] [address] [place] [id number] Apr, Viral syndrome B34.9 [facility] [address] [id number] [address] [place] [id number] Apr, [facility] [address] [facility] [id number] [address] [place] [id number] Mar, Chronic pain syndrome G89.4 [facility] [address] [facility] [id number] [address] [place] [address] Mar, [facility] [address] [facility] [id number] [address] [place] [phone] Mar, [facility] [address] [facility] [id number] [address] [place] [id number] Feb, Essential hypertension I10 ; Chronic pain syndrome G89.4 ; Hyperlipidemia, unspecified hyperlipidemia E78.5 ; 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 and Encounter for immunization Z23 [facility] [address] [facility] [id number] [address] [place] [phone] Feb, Chronic pain syndrome G89.4 [facility] [address] [facility] [id number] [address] [place] [phone] Jan, Chronic pain syndrome G89.4 [facility] [address] [facility] [id number] [address] [place] [phone] Jan, [facility] [address] [facility] [id number] [address] [place] [id number] Jan, Bronchitis J40 ; Port cathet er in place Z95.828 and Chronic pain syndrome G89.4 [facility] [address] [place] [id number] [place] [id number] Jan, [facility] [address] [facility] [id number] [address] [place] [address] Dec, Chronic pain syndrome G89.4 [facility] [address] [facility] [id number] [address] [place] [id number] Dec, Chronic pain syndrome G89.4 [facility] [address] [id number] [address] [place] [id number] Dec, [facility] [address] [id number] [address] [place] [id number] Nov, [facility] [address] [id number] [address] [place] [address] Nov, Chronic pain syndrome G89.4 [facility] [address] [id number] [address] [place] [id number] Oct, Chronic pain syndrome G89.4 [facility] [address] [id number] [address] [place] [id number] Oct, [facility] [address] [id number] [address] [place] [id number] Sep, Chronic pain syndrome G89.4 [facility] [address] [id number] [address] [place] [id number] Sep, Exacerbation of systemic lup us M32.9 [facility] [address] [id number] [address] [place] [phone] Sep, [facility] [address] [id number] [address] [place] [id number] Sep, [facility] [address] [id number] [address] [place] [id number] Sep, Nausea R11.0 [facility] [address] [id number] [address] [place] [id number] August, Chronic pain syndrome G89.4 [facility] [address] [id number] [address] [place] [address] August, [facility] [address] [id number] [address] [place] [id number] August, Chronic pain syndrome G89.4 [facility] [address] [place] [id number] [place] [id number] Jul, Pneumonia due to infectious organism, unspecified laterality, unspecified part of lung J18.9 and Tobacco abuse counseling Z71.6 [place] [address] [id number] 06 Jul, 2016 Chronic pain syndrome G89.4 [place] [address] [address] Jun, Essential hypertension I10 [place] [address] [address] Jun, Pneumonia due to infectious organism, unspecified laterality, unspecified part of lung J18.9 [place] [address] [address] Jun, Chronic pain syndrome G89.4 [place] [address] [address] May, Essential hypertension I10 ; Type 2 [...] reflux disease without esophagitis K21.9 [place] [address] [place] [id number] [place] [id number] Apr, [place] [address] [address] Apr, Pneumonia due to infectious organism, unspecified laterality, unspecified part of lung J18.9 and Nausea R11.0 [place] [address] [place] [id number] [place] [id number] Apr, Essential hypertension I10 ; Chronic pain syndrome G89.4 ; Type 2 diabetes mellitus without complication E11.9 ; Hyperlipidemia, unspecified hyperlipidemia E78.5 ; Major depressive disorder, recurrent episode, unspecified severity F33.9 ; Sciatica, unspecified laterality M54.30 ; Chronic obstructive pulmonary disease, unspecified COPD type J44.9 ; Pneumonia due to infectious organism, unspecified laterality, unspecified part of lung J18.9 and Nausea R11.0 [facility] [address] [id number] [place] [id number] Mar, [place] [address] [place] [id number] [place] [address] Mar, [place] [address] [address] Mar, [place] [address] [address] Mar, Anxiety F41.9 and Major depr essive disorder, recurrent episode, unspecified severity F33.9 [place] [address] [place] [id number] [place] [phone] Mar, [place] [address] [place] [id number] [place] [id number] Mar, [place] [address] [address] Mar, Generalized abdominal pain R 10.84 ; Acute cystitis with hematuria N30.01 and Essential hypertension I10 [facility] [address] [id number] [place] [id number] Mar, Sore throat J02.9 and Exacer bation of systemic lupus M32.9 [place] [address] [place] [id number] [place] [id number] Feb, Type 2 diabetes mellitus wit hout [...] reflux disease, esophagitis presence not specified K21.9 [facility] [address] [facility] [id number] [address] [place] [id number] Feb, [place] [address] [facility] [id number] [address] [place] [phone] Jan, [facility] [address] [facility] [id number] [address] [place] [address] Jan, Right arm pain M79.601 [address] train of right wrist, initial encounter S66.911A [place] [address] [place] [id number] [address] [place] [id number] Jan, [facility] [address] [place] [id number] [address] [place] [id number] Dec, Generalized abdominal pain R 10.84 [place] [address] [facility] [id number] [address] [place] [phone] Dec, Adenopathy R59.1 [place] [address] [facility] [id number] [address] [place] [address] Dec, Bronchitis J40 [place] [address] [place] [id number] [address] [place] [id number] 14 Dec, 2015 [place] [address] [place] [id number] [address] [place] [id number] Dec, Essential hypertension I10 [place] [address] [facility] [id number] [address] [place] [phone] Nov, [place] [address] [place] [id number] [address] [place] [phone] Nov, [place] [address] [facility] [id number] [address] [place] [id number] Nov, Essential hypertension I10 ; Hyperlipidemia, unspecified [...] diabetes mellitus without complication E11.9 [place] [address] [address] Nov, [place] [address] [address] Oct, Type 2 diabetes mellitus wit hout complication E11.9 ; Essential hypertension I10 ; Other viral warts B07.8 ; Powell or callus L84 and Hyperlipidemia, unspecified hyperlipidemia E78.5 [place] [id number] [place] [id number] Sep, [place] [address] [place] [id number] [address] [place] [id number] Sep, [place] [address] [place] [id number] [address] [place] [id number] Jun, [place] [address] [place] [id number] [address] [place] [phone] Jun, [place] [address] [place] [id number] [address] [place] [id number] May, [facility] [address] [place] [id number] [address] [place] [phone] Apr, [place] [address] [place] [id number] [address] [place] [id number] Feb, [place] [address] [place] [id number] [place] [phone] Feb, COPD exacerbation J44.1 and Acute upper respiratory infection J06.9 [facility] [address] [id number] [address] [place] [phone] Feb, [facility] [address] [id number] [address] [place] [id number] Feb, [facility] [address] [id number] [address] [place] [id number] Feb, [facility] [address] [id number] [address] [place] [address] Feb, [facility] [address] [id number] [address] [place] [address] Jan, Left hip pain M25.552 [facility] [address] [id number] [address] [place] [id number] Jan, Essential hypertension I10 ; Chronic pain syndrome G89.4 ; Type 2 diabetes mellitus without complication E11.9 and Hyperlipidemia, unspecified hyperlipidemia E78.5 [facility] [address] [id number] [address] [place] [phone] Jul, [facility] [address] [id number] [address] [place] [phone] Jul, [facility] [address] [id number] [address] [place] [phone] Jul, [facility] [address] [id number] [address] [place] [phone] Jun, [facility] [address] [id number] [address] [place] [id number] Jun, [facility] [address] [id number] [address] [place] [id number] Jun, [facility] [address] [id number] [address] [place] [id number] Jun, [facility] [address] [id number] [address] [place] [phone] 20 Jun, 2014 [facility] [address] [id number] [address] [place] [address], [place] [address] Jun, [facility] [address] [id number] [address] [place] [address], [place] [address] Jun, [facility] [address] [id number] [address] [place] [address], [place] [address] 19 Jun, 2014 [facility] [address] [id number] [address] [place] [address], [place] [address] 18 Jun, 2014 [facility] [address] [id number] [address] [place] [address], [place] [address] 18 Jun, 2014 [facility] [address] [id number] [address] [place] [address], [place] [address] Jun, [facility] [address] [id number] [address] [place] [address], [place] [address] Jun, [facility] [address] [id number] [address] [place] [address], [place] [address] Apr, [facility] [address] [id number] [address] [place] [address], [place] [address] Apr, [facility] [address] [id number] [address] [place] [address], [place] [address] Apr, [facility] [address] [id number] [address] [place] [address], [place] [address] Apr, [facility] [address] [id number] [address] [place] [address], [place] [address] Apr, [facility] [address] [id number] [address] [place] [address], [place] [address] Apr, [facility] [address] [id number] [address] [place] [address], [place] [address] Apr, [facility] [address] [id number] [address] [place] [address], [place] [address] Apr, [facility] [address] [id number] [address] [place] [address], [place] [address] 31 Mar, 2014 [facility] [address] [id number] [address] [place] [address], [place] [address] Mar, [facility] [address] [id number] [address] [place] [address], [place] [address] Mar, [facility] [address] [id number] [address] [place] [address], [place] [address] Mar, [facility] [address] [id number] [address] [place] [address], [place] [address] Mar, [facility] [address] [id number] [address] [place] [address], [place] [address] 18 Mar, 2014 [facility] [address] [id number] [address] [place] [address], [place] [address] 15 Mar, 2014 [facility] [address] [id number] [address] [place] [address], [place] [address] Mar, [facility] [address] [id number] [address] [place] [address], [place] [address] Mar, [facility] [address] [id number] [address] [place] [address], [place] [address] 08 Mar, 2014 [facility] [address] [id number] [address] [place] [address], [place] [address] Mar, [facility] [address] [id number] [address] [place] [address], [place] [address] 05 Mar, 2014 [facility] [address] [id number] [address] [place] [address], [place] [address] Mar, [facility] [address] [id number] [address] [place] [address], [place] [address] Feb, [facility] [address] [id number] [address] [place] [address], [place] [address] Feb, [facility] [address] [id number] [address] [place] [address], [place] [address] Feb, [facility] [address] [id number] [address] [place] [address], [place] [address] Feb, [facility] [address] [id number] [address] [place] [address], [place] [address] Feb, [facility] [address] [id number] [address] [place] [address], [place] [address] Feb, [facility] [address] [id number] [address] [place] [address], [place] [address] Feb, [facility] [address] [id number] [address] [place] [address], [place] [address] Feb, [facility] [address] [id number] [address] [place] [address], [place] [address] Jan, [facility] [address] [id number] [address] [place] [address], [place] [address] Jan, [facility] [address] [id number] [address] [place] [address], [place] [address] Jan, [facility] [address] [id number] [address] [place] [address], [place] [address] Jan, [facility] [address] [id number] [address] [place] [address], [place] [address] Jan, [facility] [address] [id number] [address] [place] [address], [place] [address] Jan, [facility] [address] [id number] [address] [place] [id number] Jan, [facility] [address] [id number] [address] [place] [address], [place] [address] Jan, [facility] [address] [id number] [address] [place] [address], [place] [address] Jan, [facility] [address] [id number] [address] [place] [address], [place] [address] 30 Dec, 2013 [facility] [address] [id number] [facility] [place] [address] 30 Dec, 2013 [facility] [address] [id number] [address] [place] [address], [place] [address] 26 Dec, 2013 [facility] [address] [id number] [facility] [place] [address] 26 Dec, 2013 [facility] [address] [id number] [address] [place] [address], [place] [address] 16 Dec, 2013 [facility] [address] [id number] [address] [place] [address], [place] [address] 16 Dec, 2013 [facility] [address] [id number] [address] [place] [address], [place] [address] 08 Dec, 2013 [facility] [address] [id number] [address] [place] [address], [place] [address] 08 Dec, 2013 [facility] [address] [id number] [address] [place] [address], [place] [address] 04 Dec, 2013 [facility] [address] [id number] [address] [place] [address], [place] [address] Dec, 2013 [facility] [address] [id number] [address] [place] [address], [place] [address] Nov, [facility] [address] [id number] [address] [place] [address], [place] [address] Nov, [facility] [address] [id number] [address] [place] [address], [place] [address] Nov, [facility] [address] [id number] [place] [address], [place] [address] Nov, [facility] [address] [id number] [address] [place] [address], [place] [address] Nov, [facility] [address] [id number] [address] [place] [address], [place] [address] Nov, [facility] [address] [id number] [address] [place] [address], [place] [address] Nov, [facility] [address] [id number] [facility] [place] [address] Nov, [facility] [address] [id number] [address] [place] [address], [place] [address] Nov, [facility] [address] [id number] [address] [place] [address], [place] [address] Nov, [facility] [address] [id number] [address] [place] [address], [place] [address] Nov, [facility] [address] [id number] [address] [place] [address], [place] [address] Nov, [facility] [address] [id number] [address] [place] [address], [place] [address] Nov, [facility] [address] [id number] [address] [place] [address], [place] [address] Oct, [facility] [address] [id number] [address] [place] [address], [place] [address] Oct, [facility] [address] [id number] [address] [place] [address], [place] [address] Oct, [facility] [address] [id number] [address] [place] [address], [place] [address] Oct, [facility] [address] [id number] [address] [place] [address], [place] [address] Oct, [facility] [address] [id number] [address] [place] [address], [place] [address] Oct, [facility] [address] [id number] [address] [place] [address], [place] [address] Sep, [facility] [address] [id number] [address] [place] [address], [place] [address] Sep, [facility] [address] [id number] [address] [place] [address], [place] [address] Sep, [facility] [address] [id number] [address] [place] [address], [place] [address] Sep, [facility] [address] [id number] [facility] [place] [address] Sep, [facility] [address] [id number] [address] [place] [address], [place] [address] Sep, [facility] [address] [id number] [address] [place] [address], [place] [address] Sep, [facility] [address] [id number] [address] [place] [address], [place] [address] Sep, [facility] [address] [id number] [address] [place] [address], [place] [address] Sep, [facility] [address] [id number] [address] [place] [address], [place] [address] Sep, [facility] [address] [id number] [address] [place] [address], [place] [address] Sep, [facility] [address] [id number] [address] [place] [address], [place] [address] Sep, [facility] [address] [id number] [address] [place] [address], [place] [address] August, [facility] [address] [id number] [address] [place] [address], [place] [address] August, [facility] [address] [id number] [address] [place] [address], [place] [address] Jul, [facility] [address] [id number] [address] [place] [address], [place] [address] Jul, [facility] [address] [id number] [address] [place] [address], [place] [address] Jul, [facility] [address] [id number] [address] [place] [address], [place] [address] Jul, [facility] [address] [id number] [address] [place] [address], [place] [address] Jul, [facility] [address] [id number] [facility] [place] [address] 22 Jul, 2013 [facility] [address] [id number] [facility] [place] [address] 16 Jul, 2013 [facility] [address] [id number] [facility] [place] [address] 16 Jul, 2013 [facility] [address] [id number] [address] [place] [address], [place] [address] 15 Jul, 2013 [facility] [address] [id number] [address] [place] [address], [place] [address] 15 Jul, 2013 [facility] [address] [id number] [address] [place] [address], [place] [address] Jul, [facility] [address] [id number] [address] [place] [address], [place] [address] Jun, [facility] [address] [id number] [address] [place] [address], [place] [address] Jun, [facility] [address] [id number] [address] [place] [address], [place] [address] Jun, [facility] [address] [id number] [address] [place] [address], [place] [address] Jun, [facility] [address] [id number] [address] [place] [address], [place] [address] Jun, [facility] [address] [id number] [address] [place] [address], [place] [address] Jun, [facility] [address] [id number] [address] [place] [address], [place] [address] Jun, [facility] [address] [id number] [address] [place] [address], [place] [address] Jun, [facility] [address] [id number] [address] [place] [address], [place] [address] May, [facility] [address] [id number] [address] [place] [address], [place] [address] May, [facility] [address] [id number] [address] [place] [address], [place] [address] May, [facility] [address] [id number] [address] [place] [address], [place] [address] May, [facility] [address] [id number] [address] [place] [address], [place] [address] May, [facility] [address] [id number] [address] [place] [address], [place] [address] May, [facility] [address] [id number] [address] [place] [address], [place] [address] May, [facility] [address] [id number] [address] [place] [address], [place] [address] May, [facility] [address] [id number] [address] [place] [address], [place] [address] May, [facility] [address] [id number] [address] [place] [address], [place] [address] May, [facility] [address] [id number] [address] [place] [address], [place] [address] May, [facility] [address] [id number] [address] [place] [address], [place] [address] May, [facility] [address] [id number] [address] [place] [address], [place] [address] May, [facility] [address] [id number] [address] [place] [address], [place] [address] Apr, [facility] [address] [id number] [address] [place] [address], [place] [address] Apr, [facility] [address] [id number] [address] [place] [address], [place] [address] Apr, [facility] [address] [id number] [address] [place] [address], [place] [address] Apr, [facility] [address] [id number] [address] [place] [address], [place] [address] Apr, [facility] [address] [id number] [address] [place] [address], [place] [address] Apr, [facility] [address] [id number] [address] [place] [address], [place] [address] Apr, [facility] [address] [id number] [address] [place] [address], [place] [address] Apr, [facility] [address] [id number] [address] [place] [address], [place] [address] Apr, [facility] [address] [id number] [address] [place] [address], [place] [address] Apr, [facility] [address] [id number] [address] [place] [address], [place] [address] Apr, [facility] [address] [id number] [address] [place] [address], [place] [address] Apr, [facility] [address] [id number] [address] [place] [address], [place] [address] Apr, [facility] [address] [id number] [address] [place] [address], [place] [address] Apr, [facility] [address] [id number] [address] [place] [address], [place] [address] Apr, [facility] [address] [id number] [address] [place] [address], [place] [address] Mar, [facility] [address] [id number] [address] [place] [address], [place] [address] Mar, [facility] [address] [id number] [address] [place] [address], [place] [address] Mar, [facility] [address] [id number] [address] [place] [address], [place] [address] Mar, [facility] [address] [id number] [address] [place] [address], [place] [address] Mar, [facility] [address] [id number] [address] [place] [address], [place] [address] Mar, [facility] [address] [id number] [address] [place] [address], [place] [address] 17 Mar, 2013 [facility] [address] [id number] [address] [place] [address], [place] [address] 17 Mar, 2013 [facility] [address] [id number] [address] [place] [address], [place] [address] Mar, [facility] [address] [id number] [address] [place] [address], [place] [address] Mar, [facility] [address] [id number] [address] [place] [address], [place] [address] Mar, [facility] [address] [id number] [address] [place] [address], [place] [address] Mar, [facility] [address] [id number] [address] [place] [address], [place] [address] Feb, [facility] [address] [id number] [address] [place] [address], [place] [address] Feb, [facility] [address] [id number] [address] [place] [address], [place] [address] Feb, [facility] [address] [id number] [address] [place] [address] Feb, [facility] [address] [id number] [address] [place] [address] Feb, [facility] [address] [id number] [address] [place] [address], [place] [address] Feb, [facility] [address] [id number] [address] [place] [address] Feb, [facility] [address] [id number] [address] [place] [address], [place] [address] Feb, [facility] [address] [id number] [address] [place] [address], [place] [address] Jan, [facility] [address] [id number] [address] [place] [address], [place] [address] Jan, [facility] [address] [id number] [address] [place] [address], [place] [address] Jan, [facility] [address] [id number] [address] [place] [address], [place] [address] Jan, [facility] [address] [id number] [address] [place] [address], [place] [address] Jan, [facility] [address] [id number] [address] [place] [address], [place] [address] Jan, [facility] [address] [id number] [address] [place] [address], [place] [address] Jan, [facility] [address] [id number] [address] [place] [address], [place] [address] Dec, [facility] [address] [id number] [address] [place] [address], [place] [address] Dec, [facility] [address] [id number] [address] [place] [address], [place] [address] Dec, [facility] [address] [id number] [address] [place] [address], [place] [address] Dec, [facility] [address] [id number] [address] [place] [address], [place] [address] Dec, [facility] [address] [id number] [address] [place] [address], [place] [address] Nov, [facility] [address] [id number] [address] [place] [address], [place] [address] Nov, [facility] [address] [id number] [address] [place] [address], [place] [address] Nov, [facility] [address] [id number] [address] [place] [address], [place] [address] Nov, [facility] [address] [id number] [address] [place] [address], [place] [address] Nov, [facility] [address] [id number] [address] [place] [address], [place] [address] Nov, [facility] [address] [id number] [address] [place] [address], [place] [address] Nov, [facility] [address] [id number] [address] [place] [address], [place] [address] Oct, [facility] [address] [id number] [address] [place] [address], [place] [address] Oct, [facility] [address] [id number] [address] [place] [address], [place] [address] Oct, [facility] [address] [id number] [address] [place] [address], [place] [address] Oct, [facility] [address] [id number] [address] [place] [address], [place] [address] Oct, [facility] [address] [id number] [address] [place] [address], [place] [address] Oct, [facility] [address] [id number] [address] [place] [address], [place] [address] Oct, [facility] [address] [id number] [address] [place] [address], [place] [address] Oct, [facility] [address] [id number] [address] [place] [address], [place] [address] Sep, [facility] [address] [id number] [address] [place] [address], [place] [address] Sep, [facility] [address] [id number] [address] [place] [address], [place] [address] Sep, [facility] [address] [id number] [address] [place] [address], [place] [address] Sep, [facility] [address] [id number] [address] [place] [address], [place] [address] Sep, [facility] [address] [id number] [address] [place] [address], [place] [address] Sep, [facility] [address] [id number] [address] [place] [address], [place] [address] August, [facility] [address] [id number] [address] [place] [address], [place] [address] August, [facility] [address] [id number] [address] [place] [address], [place] [address] August, [facility] [address] [id number] [address] [place] [address], [place] [address] August, [facility] [address] [id number] [address] [place] [address], [place] [address] August, [facility] [address] [id number] [address] [place] [address], [place] [address] Jul, [facility] [address] [id number] [address] [place] [address], [place] [address] Jul, [facility] [address] [id number] [address] [place] [address], [place] [address] 24 Jul, 2012 [facility] [address] [id number] [address] [place] [address], [place] [address] Jul, [facility] [address] [id number] [address] [place] [address], [place] [address] Jul, [facility] [address] [id number] [address] [place] [address], [place] [address] 05 Jul, 2012 [facility] [address] [id number] [address] [place] [address], [place] [address] 14 Jun, 2012 [facility] [address] [id number] [address] [place] [address], [place] [address] 13 Jun, 2012 [facility] [address] [id number] [address] [place] [address], [place] [address] 07 Jun, 2012 [facility] [address] [id number] [address] [place] [address], [place] [address] 07 Jun, 2012 [facility] [address] [id number] [address] [place] [address], [place] [address] 05 Jun, 2012 [facility] [address] [id number] [address] [place] [address], [place] [address] 19 May, 2012 [facility] [address] [id number] [address] [place] [address], [place] [address] 13 May, 2012 [facility] [address] [id number] [address] [place] [address], [place] [address] May, [facility] [address] [id number] [address] [place] [address], [place] [address] 23 Apr, 2012 [facility] [address] [id number] [address] [place] [address], [place] [address] Apr, [facility] [address] [id number] [address] [place] [address], [place] [address] Mar, [facility] [address] [id number] [address] [place] [address], [place] [address] 26 Mar, 2012 [facility] [address] [id number] [address] [place] [address], [place] [address] Mar, [facility] [address] [id number] [address] [place] [address], [place] [address] 17 Mar, 2012 [facility] [address] [id number] [address] [place] [address], [place] [address] 17 Mar, 2012 [facility] [address] [id number] [address] [place] [address], [place] [address] 13 Mar, 2012 [facility] [address] [id number] [address] [place] [address], [place] [address] 21 Feb, 2012 [facility] [address] [id number] [address] [place] [address], [place] [address] 13 Feb, 2012 [facility] [address] [id number] [address] [place], [place] [address] [address] Feb, [facility] [address] [id number] [address] [place] [address], [place] [address] 29 Jan, 2012 [facility] [address] [id number] [address] [place] [address], [place] [address] 29 Jan, 2012 [facility] [address] [id number] [address] [place] [address], [place] [address] Jan, [facility] [address] [id number] [address] [place] [address], [place] [address] Jan, [facility] [address] [id number] [address] [place] [address], [place] [address] 24 Jan, 2012 [facility] [address] [id number] [address] [place] [address], [place] [address] Jan, [facility] [address] [id number] [address] [place] [address], [place] [address] Jan, [facility] [address] [id number] [address] [place] [address], [place] [address] 16 Jan, 2012 [facility] [address] [id number] [address] [place] [address], [place] [address] 16 Jan, 2012 [facility] [address] [id number] [address] [place] [address], [place] [address] 18 Dec, 2011 [facility] [address] [id number] [address] [place] [address], [place] [address] 13 Dec, 2011 [facility] [address] [id number] [address] [place] [address] 11 Dec, 2011 [facility] [address] [id number] [address] [place] [address], [place] [address] 22 Nov, 2011 [facility] [address] [id number] [address] [place] [address], [place] [address] 17 Nov, 2011 [facility] [address] [id number] [address] [place] [address], [place] [address] 16 Nov, 2011 [facility] [address] [id number] [address] [place] [address], [place] [address] 16 Oct, 2011 [facility] [address] [id number] [address] [place] [address], [place] [address] 06 Oct, 2011 [facility] [address] [id number] [address] [place] [address], [place] [address] Sep, [facility] [address] [id number] [address] [place] [address], [place] [address] Sep, [facility] [address] [id number] [address] [place] [address], [place] [address] Sep, [facility] [address] [id number] [address] [place] [address], [place] [address] Sep, [facility] [address] [id number] [address] [place] [address], [place] [address] Sep, [facility] [address] [id number] [address] [place] [address], [place] [address] August, [facility] [address] [id number] [address] [place] [address], [place] [address] August, [facility] [address] [id number] [address] [place] [address], [place] [address] August, [facility] [address] [id number] [address] [place] [address], [place] [address] August, [facility] [address] [id number] [address] [place] [address], [place] [address] August, [facility] [address] [id number] [address] [place] [address], [place] [address] August, [facility] [address] [id number] [address] [place] [address], [place] [address] August, [facility] [address] [id number] [address] [place] [address], [place] [address] August, [facility] [address] [id number] [address] [place] [address], [place] [address] August, [facility] [address] [id number] [address] [place] [address], [place] [address] 27 Jul, 2011 [facility] [address] [id number] [address] [place] [address], [place] [address] 19 Jul, 2011 [facility] [address] [id number] [address] [place] [address], [place] [address] 10 Jul, 2011 [facility] [address] [id number] [address] [place] [address], [place] [address] 04 Jul, 2011 [facility] [address] [id number] [address] [place] [address], [place] [address] 27 Jun, 2011 [facility] [address] [id number] [address] [place] [address], [place] [address] 13 Jun, 2011 [facility] [address] [id number] [address] [place] [address], [place] [address] Jun, [facility] [address] [id number] [address] [place] [address], [place] [address] 27 May, 2011 [facility] [facility] [address] [id number] [address] [place] [address], [place] [address] 24 May, 2011 [facility] [address] [id number] [address] [place] [address], [place] [address] 20 May, 2011 [facility] [address] [id number] [address] [place] [address], [place] [address] 16 May, 2011 [facility] [address] [id number] [address] [place] [address], [place] [address] 15 May, 2011 [facility] [address] [id number] [address] [place] [address], [place] [address] 14 May, 2011 [facility] [address] [id number] [address] [place] [address], [place] [address] 10 May, 2011 [facility] [address] [id number] [address] [place] [address], [place] [address] 09 May, 2011 [facility] [address] [id number] [address] [place] [address], [place] [address] 02 May, 2011 [facility] [address] [id number] [address] [place] [address], [place] [address] Apr, [facility] [address] [id number] [address] [place] [address], [place] [address] Apr, [facility] [address] [id number] [address] [place] [address], [place] [address] Apr, [facility] [address] [id number] [address] [place] [address], [place] [address] Apr, [facility] [address] [id number] [address] [place] [address], [place] [address] Apr, [facility] [address] [id number] [address] [place] [address], [place] [address] Apr, [facility] [address] [id number] [address] [place] [address], [place] [address] Apr, [facility] [address] [id number] [address] [place] [address], [place] [address] Apr, [facility] [address] [id number] [address] [place] [address], [place] [address] Apr, [facility] [address] [id number] [address] [place] [address], [place] [address] Apr, [facility] [address] [id number] [address] [place] [address], [place] [address] Apr, [facility] [address] [id number] [address] [place] [address], [place] [address] Mar, [facility] [address] [id number] [address] [place] [address], [place] [address] Mar, [facility] [address] [id number] [address] [place] [address], [place] [address] Mar, [facility] [address] [id number] [address] [place] [address], [place] [address] Mar, [facility] [address] [facility] [id number] [address] [place] [address] Feb, [facility] [address] [facility] [id number] [address] [place] [address] Feb, [facility] [address] [facility] [id number] [address] [place] [id number] Jan, [facility] [address] [facility] [id number] [address] [place] [address] Nov, IMMUNIZATIONS No Known Immunizations SOCIAL HISTORY Never Assessed REASON FOR VISIT PLAN OF CARE VITAL SIGNS Height 67 in 2013-11-08 Weight 209.2 lbs 2013-11-08 Temperature 98.9 degrees Fahrenheit 2013-11-08 Heart Rate 92 bpm 2013-11-08 Respiratory Rate 2013-11-08 Blood pressure systolic 166 mmHg 2013-11-08 Blood pressure diastolic 88 mmHg 2013-11-08 MEDICATIONS Unknown Medications RESULTS No Results PROCEDURES [...] laser treatment for glaucoma Hospitalization History [facility]- Right side and back pain related to fall, hurts to breathe (ED at 7 pm) 06/07/2017 Hospitalization History Jerica Duarte [place]- Anxiety ( went to ED at 1200) 06/07/2017 Hospitalization History COPD exacerbation - Gerald Pizano 2017 Hospitalization History Blood clot, port placement - Gerald Pizano 09/2017
--- OUTSIDE RECORDS SUMMARY | 2019-09-01 14:22 | XMS REPORT ---
Author Author RADHA Sophianaren OLIVA [facility] Address [address] [place] [address] Care Team Providers Care Hand Tube Bender Name Role Phone RADHAKATHARINEHAZEL Unavailable PROBLEMS Type Condition ICD9-CM Code [id number] Code Onset Dates Condition S tatus SNOMED Code Problem Generalized abdominal pain R10.84 Act sree [id number] Problem Anxiety F41.9 Active 72325189 Problem Proteinuria R80.9 Active 53451450 Problem Hyperlipidemia, unspecified hyperlipidemia E78.5 Active 56719928 Problem Essential hypertension I10 Active 50464530 Problem Venous insufficiency I87.2 Active 90990935 Problem Type 2 diabetes mellitus without complication E11. 9 Active 38827360 Problem Pneumonia due to infectious organism, unspecified laterality, unspecified part of lung J18.9 Active 312 020453 Problem Major depressive disorder, recurrent episode, un specified severity F33.9 Active 29612848 Problem Acute cystitis with hematuria N30.01 Active 40615915 Problem Sciatica, unspecified laterality M54.30 Active 71146893 Problem Carpal tunnel syndrome, right upper limb G56.01 Active 81069814 Problem Chronic pain syndrome G89.4 Active 638213790 Problem Port catheter in place Z95.828 Active 046322255 Problem History of small bowel obstruction Z87.19 Active 798166147 Problem Chronic pancreatitis, unspecified pancreatitis type K86.1 Active 412662793 Problem Presence of IVC filter Z95.828 Active 907707281 Problem Vitamin D deficiency E55.9 Active 73443301 Problem Gastroesophageal reflux disease, esophagitis pre sence not specified K21.9 Active 636705254 Problem Exacerbation of systemic lupus M32.9 Active 52057326 Problem Hypothyroidism, unspecified type E03.9 Active 02193396 Problem Nausea R11.0 Active 056919038 Problem Gastroesophageal reflux disease without esophagitis K21.9 Active 289668092 Problem Tobacco abuse counseling Z71.6 Activ e 66533385 Problem Hypertension, benign I10 Active 97357090 Problem Chronic obstructive pulmonary disease, unspecified COPD ty pe J44.9 Active 18984101 Problem Other iron deficiency anemia D50.8 A ctive 61529073 Problem Obstructive sleep apnea G47.33 Active 57838112 Problem History of pulmonary embolism Z86.711 Active 542818133 Problem 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 A ctive 869141537 Problem Opiate dependence, continuous F11.20 Active 918460254 Problem Cannabis abuse with physiological dependence F12.1 0 Active 38014636 Problem Violation of controlled substance agreement Z91.14 Active 110792620 ALLERGIES No Information ENCOUNTERS Encounter Location Date Diagnosis [place] [address] [address] 17 Jul, 2019 Essential hypertension I10 ; Type 2 diabetes mellitus without complication E11.9 and Other iron deficiency anemia D50.8 [place] [address] [address] Jul, [place] [address] [address] May, [place] [address] [address] Apr, Tobacco abuse Z72.0 ; Hypert ension, benign I10 and Tobacco abuse counseling Z71.6 [place] [address] [place] [id number] [address] [place] [address] Sep, [place] [id number] [place] [address] Sep, [place] [address] [place] [id number] [address] [place] [address] Sep, Essential hypertension I10 [place] [address] [place] [id number] [place] [address] Sep, [place] [address] [place] [id number] [address] [place] [address] Sep, [place] [address] [place] [id number] [address] [place] [address] Sep, Neck mass R22.1 [facility] [address] [facility] [id number] [address] [place] [address] August, Neck mass R22.1 [facility] [address] [facility] [id number] [address] [place] [address] Feb, Left foot pain M79.672 [facility] [address] [place] [id number] [address] [place] [address] Jun, Chronic pain syndrome G89.4 [facility] [address] [place] [id number] [place] [id number] May, [facility] [address] [facility] [id number] [address] [place] [address] May, [facility] [address] [facility] [id number] [address] [place] [address] May, Chronic pain syndrome G89.4 [facility] [address] [place] [id number] [address] [place] [address] May, [facility] [address] [facility] [id number] [address] [place] [address] 10 May, 2017 Encounter for immunization Z 23 and Laceration of left index finger without foreign body without damage to nail, initial encounter S61.211A [facility] [address] [place] [id number] [address] [place] [address] 09 May, 2017 Chronic pain syndrome G89.4 [facility] [address] [facility] [id number] [address] [place] [address] May, [facility] [address] [address] Apr, Cannabis abuse with physiolo gical dependence F12.10 ; Violation of controlled substance agreement Z91.14 and Opiate dependence, continuous F11.20 [facility] [address] [place] [id number] [address] [place] [address] Apr, Type 2 diabetes mellitus wit hout complication E11.9 [facility] [address] [facility] [id number] [address] [place] [address] Apr, [facility] [address] [facility] [id number] [address] [place] [address] Apr, Chronic pain syndrome G89.4 [facility] [address] [facility] [id number] [address] [place] [address] Apr, Viral syndrome B34.9 [facility] [address] [facility] [id number] [address] [place] [address] Apr, [facility] [address] [facility] [id number] [address] [place] [address] Mar, Chronic pain syndrome G89.4 [place] [address] [place] [id number] [address] [place] [address] Mar, [facility] [address] [place] [id number] [address] [place] [address] Mar, [facility] [address] [place] [id number] [address] [place] [address] Feb, Essential hypertension I10 ; Chronic pain syndrome G89.4 ; Hyperlipidemia, unspecified hyperlipidemia E78.5 ; 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 and Encounter for immunization Z23 [facility] [address] [place] [id number] [address] [place] [address] Feb, Chronic pain syndrome G89.4 [facility] [address] [facility] [id number] [address] [place] [address] Jan, Chronic pain syndrome G89.4 [facility] [address] [facility] [id number] [address] [place] [address] Jan, [facility] [address] [place] [id number] [address] [place] [address] Jan, Bronchitis J40 ; Port cathet er in place Z95.828 and Chronic pain syndrome G89.4 [facility] [address] [place] [id number] [place] [id number] Jan, [facility] [address] [id number] [address] [place] [address] Dec, Chronic pain syndrome G89.4 [facility] [address] [id number] [address] [place] [address] Dec, Chronic pain syndrome G89.4 [facility] [address] [id number] [address] [place] [address] Dec, [facility] [address] [id number] [address] [place] [address] Nov, [facility] [address] [id number] [address] [place] [address] Nov, Chronic pain syndrome G89.4 [facility] [address] [id number] [address] [place] [address] Oct, Chronic pain syndrome G89.4 [facility] [address] [id number] [address] [place] [address] Oct, [facility] [address] [id number] [address] [place] [address] Sep, Chronic pain syndrome G89.4 [facility] [address] [id number] [address] [place] [address] Sep, Exacerbation of systemic lup us M32.9 [facility] [address] [id number] [address] [place] [address] Sep, [facility] [address] [id number] [address] [place] [address] Sep, [facility] [address] [id number] [address] [place] [address] Sep, Nausea R11.0 [facility] [address] [id number] [address] [place] [address] August, Chronic pain syndrome G89.4 [facility] [address] [place] [id number] [address] [place] [address] August, [place] [address] [place] [id number] [address] [place] [address] August, Chronic pain syndrome G89.4 [place] [address] [place] [id number] [address] [place] [address] Jul, Pneumonia due to infectious organism, unspecified laterality, unspecified part of lung J18.9 and Tobacco abuse counseling Z71.6 [place] [address] [place] [id number] [address] [place] [address] Jul, Chronic pain syndrome G89.4 [place] [address] [place] [id number] [place] [address] Jun, Essential hypertension I10 [place] [address] [address] Jun, Pneumonia due to infectious organism, unspecified laterality, unspecified part of lung J18.9 [place] [address] [place] [id number] [address] [place] [address] Jun, Chronic pain syndrome G89.4 [place] [address] [place] [id number] [place] [address] May, Essential hypertension I10 ; Type 2 [...] and Gastroesophageal reflux disease without esophagitis K21.9 [place] [address] [place] [id number] [address] [place] [address] Apr, [place] [address] [address] Apr, Pneumonia due to infectious organism, unspecified laterality, unspecified part of lung J18.9 and Nausea R11.0 [place] [address] [place] [id number] [address] [place] [address] Apr, Essential hypertension I10 ; Chronic pain syndrome G89.4 ; Type 2 diabetes mellitus without complication E11.9 ; Hyperlipidemia, unspecified hyperlipidemia E78.5 ; Major depressive disorder, recurrent episode, unspecified severity F33.9 ; Sciatica, unspecified laterality M54.30 ; Chronic obstructive pulmonary disease, unspecified COPD type J44.9 ; Pneumonia due to infectious organism, unspecified laterality, unspecified part of lung J18.9 and Nausea R11.0 [facility] [address] [address] Mar, [place] [address] [address] Mar, [place] [address] [address] Mar, [place] [address] [place] [id number] [address] [place] [address] Mar, Anxiety F41.9 and Major depr essive disorder, recurrent episode, unspecified severity F33.9 [place] [address] [place] [id number] [address] [place] [address] Mar, [place] [address] [place] [id number] [address] [place] [address] Mar, [place] [address] [place] [id number] [address] [place] [address] Mar, Generalized abdominal pain R 10.84 ; Acute cystitis with hematuria N30.01 and Essential hypertension I10 [facility] [address] [place] [id number] [address] [place] [address] Mar, Sore throat J02.9 and Exacer bation of systemic lupus M32.9 [place] [address] [place] [id number] [address] [place] [address] Feb, Type 2 diabetes mellitus wit hout [...] reflux disease, esophagitis presence not specified K21.9 [place] [address] [address] Feb, [place] [address] [address] Jan, [facility] [place] [address] [address] Jan, Right arm pain M79.601 [address] of right wrist, initial encounter S66.911A [place] [address] [address] Jan, [facility] [place] [address] [address] Dec, Generalized abdominal pain R 10.84 [place] [address] [address] Dec, Adenopathy R59.1 [place] [address] [address] 19 Dec, 2015 Bronchitis J40 [place] [address] [address] 14 Dec, 2015 [place] [address] [address] Dec, Essential hypertension I10 [place] [address] [address] Nov, [place] [address] [place] [id number] [address] [place] [address] Nov, [place] [address] [address] Nov, Essential hypertension I10 ; Hyperlipidemia, unspecified [...] Type 2 diabetes mellitus without complication E11.[address] [address] Nov, [place] [address] [address] Oct, Type 2 diabetes mellitus wit hout complication E11.9 ; Essential hypertension I10 ; Other viral warts B07.8 ; Carson or callus L84 and Hyperlipidemia, unspecified hyperlipidemia E78.5 [place] [address] [place] [id number] [address] [place] [address] Sep, [place] [address] [place] [id number] [address] [place] [address] Sep, [place] [address] [place] [id number] [address] [place] [address] Jun, [place] [address] [address] Jun, [place] [address] [place] [id number] [address] [place] [address] May, [place] [address] [place] [address] Apr, [facility] [address] [id number] [address] [place] [address] Feb, [facility] [address] [facility] [id number] [address] [place] [address] Feb, COPD exacerbation J44.1 and Acute upper respiratory infection J06.9 [facility] [address] [id number] [address] [place] [address] Feb, [facility] [address] [id number] [address] [place] [address] Feb, [facility] [address] [id number] [address] [place] [address] Feb, [facility] [address] [facility] [id number] [address] [place] [address] Feb, [facility] [address] [facility] [id number] [address] [place] [address] Jan, Left hip pain M25.552 [facility] [address] [id number] [address] [place] [address] Jan, Essential hypertension I10 ; Chronic pain syndrome G89.4 ; Type 2 diabetes mellitus without complication E11.9 and Hyperlipidemia, unspecified hyperlipidemia E78.5 [facility] [address] [id number] [address] [place] [address] Jul, [facility] [address] [id number] [address] [place] [address] Jul, [facility] [address] [id number] [address] [place] [address] Jul, [facility] [address] [facility] [id number] [address] [place] [address] Jun, [facility] [address] [id number] [address] [place] [address] Jun, [facility] [place] [facility] [address] [id number] [address] [place] [address], [place] [address] 24 Jun, 2014 [facility] [address] [id number] [address] [place] [address], [place] [address] 20 Jun, 2014 [facility] [address] [id number] [address] [place] [address], [place] [address] 20 Jun, 2014 [facility] [address] [id number] [address] [place] [address], [place] [address] 20 Jun, 2014 [facility] [address] [id number] [address] [place] [address], [place] [address] 20 Jun, 2014 [facility] [address] [id number] [address] [place] [address], [place] [address] 19 Jun, 2014 [facility] [address] [id number] [address] [place] [address], [place] [address] 18 Jun, 2014 [facility] [address] [id number] [address] [place] [address], [place] [address] 18 Jun, 2014 [facility] [address] [id number] [address] [place] [address], [place] [address] Jun, [facility] [address] [id number] [address] [place] [address], [place] [address] Jun, [facility] [address] [id number] [address] [place] [address], [place] [address] Apr, [facility] [address] [id number] [address] [place] [address], [place] [address] Apr, [facility] [address] [id number] [address] [place] [address], [place] [address] Apr, [facility] [address] [id number] [address] [place] [address], [place] [address] Apr, [facility] [address] [id number] [address] [place] [address], [place] [address] Apr, [facility] [address] [id number] [address] [place] [address], [place] [address] Apr, [facility] [address] [id number] [address] [place] [address], [place] [address] Apr, [facility] [address] [id number] [address] [place] [address], [place] [address] Apr, [facility] [address] [id number] [address] [place] [address], [place] [address] Mar, [facility] [address] [id number] [address] [place] [address], [place] [address] Mar, [facility] [address] [id number] [address] [place] [address], [place] [address] Mar, [facility] [address] [id number] [address] [place] [address], [place] [address] Mar, [facility] [address] [id number] [address] [place] [address], [place] [address] Mar, [facility] [address] [id number] [address] [place] [address], [place] [address] 18 Mar, 2014 [facility] [address] [id number] [address] [place] [address], [place] [address] 15 Mar, 2014 [facility] [address] [id number] [address] [place] [address], [place] [address] Mar, [facility] [address] [id number] [address] [place] [address], [place] [address] Mar, [facility] [address] [id number] [address] [place] [address], [place] [address] 08 Mar, 2014 [facility] [address] [id number] [address] [place] [address], [place] [address] Mar, [facility] [place] [facility] [address] [id number] [address] [place] [address], [place] [address] 05 Mar, 2014 [facility] [address] [id number] [address] [place] [address], [place] [address] 05 Mar, 2014 [facility] [address] [id number] [address] [place] [address], [place] [address] Feb, [facility] [place] [facility] [address] [id number] [address] [place] [address], [place] [address] Feb, [facility] [place] [facility] [address] [id number] [address] [place] [address], [place] [address] Feb, [facility] [place] [facility] [address] [id number] [address] [place] [address], [place] [address] Feb, [facility] [place] [facility] [address] [id number] [address] [place] [address], [place] [address] Feb, [facility] [place] [facility] [address] [id number] [address] [place] [address], [place] [address] Feb, [facility] [place] [facility] [address] [id number] [address] [place] [address], [place] [address] Feb, [facility] [place] [facility] [address] [id number] [address] [place] [address], [place] [address] Feb, [facility] [place] [facility] [address] [id number] [address] [place] [address], [place] [address] Jan, [facility] [place] [facility] [address] [id number] [address] [place] [address], [place] [address] Jan, [facility] [place] [facility] [address] [id number] [address] [place] [address], [place] [address] Jan, [facility] [place] [facility] [address] [id number] [address] [place] [address], [place] [address] Jan, [facility] [place] [facility] [address] [id number] [address] [place] [address], [place] [address] Jan, [facility] [address] [id number] [address] [place] [address], [place] [address] Jan, [facility] [address] [id number] [address] [place] [address], [place] [address] Jan, [facility] [address] [id number] [address] [place] [address], [place] [address] Jan, [facility] [address] [id number] [facility] [place] [address] 20 Jan, 2014 [facility] [address] [id number] [facility] [place] [address] 30 Dec, 2013 [facility] [address] [id number] [facility] [place] [address] 30 Dec, 2013 [facility] [address] [id number] [address] [place] [address], [place] [address] 26 Dec, 2013 [facility] [address] [id number] [address] [place] [address], [place] [address] 26 Dec, 2013 [facility] [address] [id number] [address] [place] [address], [place] [address] 16 Dec, 2013 [facility] [address] [id number] [address] [place] [address], [place] [address] 16 Dec, 2013 [facility] [address] [id number] [address] [place] [address], [place] [address] 08 Dec, 2013 [facility] [address] [id number] [address] [place] [address], [place] [address] 08 Dec, 2013 [facility] [address] [id number] [address] [place] [address], [place] [address] 04 Dec, 2013 [facility] [address] [id number] 70 [place] [address], [place] [address] Dec, 2013 [facility] [address] [id number] [address] [place] [address], [place] [address] Nov, [facility] [address] [id number] [address] [place] [address], [place] [address] Nov, [facility] [address] [id number] [address] [place] [address], [place] [address] Nov, [facility] [address] [id number] [address] [place] [address], [place] [address] Nov, [facility] [address] [id number] [address] [place] [address], [place] [address] Nov, [facility] [address] [id number] [facility] [place] [address] Nov, [facility] [address] [id number] [address] [place] [address], [place] [address] Nov, [facility] [address] [id number] [address] [place] [address], [place] [address] Nov, [facility] [address] [id number] [address] [place] [address], [place] [address] Nov, [facility] [address] [id number] [address] [place] [address], [place] [address] Nov, [facility] [address] [id number] [address] [place] [address], [place] [address] Nov, [facility] [address] [id number] [address] [place] [address], [place] [address] Nov, [facility] [address] [id number] [address] [place] [address], [place] [address] Nov, [facility] [address] [id number] [address] [place] [address], [place] [address] Oct, [facility] [address] [id number] [address] [place] [address], [place] [address] Oct, [facility] [address] [id number] [address] [place] [address], [place] [address] Oct, [facility] [address] [id number] [address] [place] [address], [place] [address] Oct, [facility] [address] [id number] [address] [place] [address], [place] [address] Oct, [facility] [address] [id number] [address] [place] [address], [place] [address] Oct, [facility] [address] [id number] [address] [place] [address], [place] [address] Sep, [facility] [address] [id number] [facility] [place] [address] Sep, [facility] [address] [id number] [address] [place] [address], [place] [address] Sep, [facility] [address] [id number] [address] [place] [address], [place] [address] Sep, [facility] [address] [id number] [address] [place] [address], [place] [address] Sep, [facility] [address] [id number] [address] [place] [address], [place] [address] Sep, [facility] [address] [id number] [address] [place] [address], [place] [address] Sep, [facility] [address] [id number] [address] [place] [address], [place] [address] Sep, [facility] [address] [id number] [address] [place] [address], [place] [address] Sep, [facility] [address] [id number] [address] [place] [address], [place] [address] Sep, [facility] [address] [id number] [address] [place] [address], [place] [address] Sep, [facility] [address] [id number] [address] [place] [address], [place] [address] Sep, [facility] [address] [id number] [address] [place] [address], [place] [address] August, [facility] [address] [id number] [address] [place] [address], [place] [address] August, [facility] [address] [id number] [address] [place] [address], [place] [address] Jul, [facility] [address] [id number] [address] [place] [address], [place] [address] Jul, [facility] [address] [id number] [address] [place] [address], [place] [address] Jul, [facility] [address] [id number] [facility] [place] [address] 24 Jul, 2013 [facility] [address] [id number] [facility] [place] [address] Jul, [facility] [address] [id number] [facility] [place] [address] Jul, [facility] [address] [id number] [address] [place] [address], [place] [address] Jul, [facility] [address] [id number] [facility] [place] [address] 16 Jul, 2013 [facility] [address] [id number] [address] [place] [address], [place] [address] Jul, [facility] [address] [id number] [address] [place] [address], [place] [address] Jul, [facility] [address] [id number] [address] [place] [address], [place] [address] Jul, [facility] [address] [id number] [address] [place] [address], [place] [address] 31 Jun, 2013 [facility] [address] [id number] [address] [place] [address], [place] [address] 31 Jun, 2013 [facility] [address] [id number] [address] [place] [address], [place] [address] 28 Jun, 2013 [facility] [address] [id number] [address] [place] [address], [place] [address] 28 Jun, 2013 [facility] [address] [id number] [address] [place] [address], [place] [address] Jun, [facility] [address] [id number] [address] [place] [address], [place] [address] Jun, [facility] [address] [id number] [address] [place] [address], [place] [address] 25 Jun, 2013 [facility] [address] [id number] [address] [place] [address], [place] [address] Jun, [facility] [address] [id number] [address] [place] [address], [place] [address] May, [facility] [address] [id number] [address] [place] [address], [place] [address] May, [facility] [address] [id number] [address] [place] [address], [place] [address] May, [facility] [address] [id number] [address] [place] [address], [place] [address] May, [facility] [address] [id number] [address] [place] [address], [place] [address] May, [facility] [address] [id number] [address] [place] [address], [place] [address] May, [facility] [address] [id number] [address] [place] [address], [place] [address] May, [facility] [address] [id number] [address] [place] [address], [place] [address] May, [facility] [address] [id number] [address] [place] [address], [place] [address] May, [facility] [address] [id number] [address] [place] [address], [place] [address] May, [facility] [address] [id number] [address] [place] [address], [place] [address] May, [facility] [address] [id number] [address] [place] [address], [place] [address] May, [facility] [address] [id number] [address] [place] [address], [place] [address] May, [facility] [address] [id number] [address] [place] [address], [place] [address] Apr, [facility] [address] [id number] [address] [place] [address], [place] [address] Apr, [facility] [address] [id number] [address] [place] [address], [place] [address] Apr, [facility] [address] [id number] [address] [place] [address], [place] [address] Apr, [facility] [address] [id number] [address] [place] [address], [place] [address] Apr, [facility] [address] [id number] [address] [place] [address], [place] [address] Apr, [facility] [address] [id number] [address] [place] [address], [place] [address] Apr, [facility] [address] [id number] [address] [place] [address], [place] [address] Apr, [facility] [address] [id number] [address] [place] [address], [place] [address] Apr, [facility] [address] [id number] [address] [place] [address], [place] [address] Apr, [facility] [address] [id number] [address] [place] [address], [place] [address] Apr, [facility] [address] [id number] [address] [place] [address], [place] [address] Apr, [facility] [address] [id number] [address] [place] [address], [place] [address] Apr, [facility] [address] [id number] [address] [place] [address], [place] [address] Apr, [facility] [address] [id number] [address] [place] [address], [place] [address] Apr, [facility] [address] [id number] [address] [place] [address], [place] [address] Mar, [facility] [address] [id number] [address] [place] [address], [place] [address] Mar, [facility] [address] [id number] [address] [place] [address], [place] [address] Mar, [facility] [address] [id number] [address] [place] [address], [place] [address] Mar, [facility] [address] [id number] [address] [place] [address], [place] [address] Mar, [facility] [address] [id number] [address] [place] [address], [place] [address] Mar, [facility] [address] [id number] [address] [place] [address], [place] [address] 17 Mar, 2013 [facility] [address] [id number] [address] [place] [address], [place] [address] 17 Mar, 2013 [facility] [address] [id number] [address] [place] [address], [place] [address] Mar, [facility] [address] [id number] [address] [place] [address], [place] [address] Mar, [facility] [address] [id number] [address] [place] [address], [place] [address] Mar, [facility] [address] [id number] [address] [place] [address], [place] [address] Mar, [facility] [address] [id number] [address] [place] [address], [place] [address] Feb, [facility] [address] [id number] [address] [place] [address], [place] [address] Feb, [facility] [address] [id number] [address] [place] [address], [place] [address] Feb, [facility] [address] [id number] [address] [place] [address], [place] [address] Feb, [facility] [address] [id number] [address] [place] [address], [place] [address] Feb, [facility] [address] [id number] [address] [place] [address], [place] [address] 08 Feb, 2013 [facility] [address] [id number] [address] [place] [address], [place] [address] Feb, [facility] [address] [id number] [address] [place] [address], [place] [address] Feb, [facility] [address] [id number] [address] [place] [address], [place] [address] Jan, [facility] [address] [id number] [address] [place] [address], [place] [address] Jan, [facility] [address] [id number] [address] [place] [address], [place] [address] Jan, [facility] [address] [id number] [address] [place] [address], [place] [address] Jan, [facility] [address] [id number] [address] [place] [address], [place] [address] Jan, [facility] [address] [id number] [address] [place] [address], [place] [address] Jan, [facility] [address] [id number] [address] [place] [address], [place] [address] Jan, [facility] [address] [id number] [address] [place] [address], [place] [address] Dec, [facility] [address] [id number] [address] [place] [address], [place] [address] Dec, [facility] [address] [id number] [address] [place] [address], [place] [address] Dec, [facility] [address] [id number] [address] [place] [address], [place] [address] Dec, [facility] [address] [id number] [address] [place] [address], [place] [address] Dec, [facility] [address] [id number] [address] [place] [address], [place] [address] Nov, [facility] [address] [id number] [address] [place] [address], [place] [address] Nov, [facility] [address] [id number] [address] [place] [address], [place] [address] Nov, [facility] [address] [id number] [address] [place] [address], [place] [address] Nov, [facility] [address] [id number] [address] [place] [address], [place] [address] Nov, [facility] [address] [id number] [address] [place] [address], [place] [address] Nov, [facility] [address] [id number] [address] [place] [address], [place] [address] Nov, [facility] [address] [id number] [address] [place] [address], [place] [address] Oct, [facility] [address] [id number] [address] [place] [address], [place] [address] Oct, [facility] [address] [id number] [address] [place] [address], [place] [address] Oct, [facility] [address] [id number] [address] [place] [address], [place] [address] Oct, [facility] [address] [id number] [address] [place] [address], [place] [address] Oct, [facility] [address] [id number] [address] [place] [address], [place] [address] Oct, [facility] [address] [id number] [address] [place] [address], [place] [address] Oct, [facility] [address] [id number] [address] [place] [address], [place] [address] Oct, [facility] [address] [id number] [address] [place] [address], [place] [address] Sep, [facility] [address] [id number] [address] [place] [address], [place] [address] Sep, [facility] [address] [id number] [address] [place] [address], [place] [address] 13 Sep, 2012 [facility] [address] [id number] [address] [place] [address], [place] [address] 12 Sep, 2012 [facility] [address] [id number] [address] [place] [address], [place] [address] Sep, [facility] [address] [id number] [address] [place] [address], [place] [address] Sep, [facility] [address] [id number] [address] [place] [address], [place] [address] August, [facility] [address] [id number] [address] [place] [address], [place] [address] August, [facility] [address] [id number] [address] [place] [address], [place] [address] August, [facility] [address] [id number] [address] [place] [address], [place] [address] August, [facility] [address] [id number] [address] [place] [address], [place] [address] August, [facility] [address] [id number] [address] [place] [address], [place] [address] Jul, [facility] [address] [id number] [address] [place] [address], [place] [address] Jul, [facility] [address] [id number] [address] [place] [address], [place] [address] 24 Jul, 2012 [facility] [address] [id number] [address] [place] [address], [place] [address] 15 Jul, 2012 [facility] [address] [id number] [address] [place] [address], [place] [address] Jul, [facility] [address] [id number] [address] [place] [address], [place] [address] 05 Jul, 2012 [facility] [address] [id number] [address] [place] [address], [place] [address] 14 Jun, 2012 [facility] [address] [id number] [address] [place] [address], [place] [address] 13 Jun, 2012 [facility] [address] [id number] [address] [place] [address], [place] [address] 07 Jun, 2012 [facility] [address] [id number] [address] [place] [address], [place] [address] 07 Jun, 2012 [facility] [address] [id number] [address] [place] [address], [place] [address] 05 Jun, 2012 [facility] [address] [id number] [address] [place] [address], [place] [address] 19 May, 2012 [facility] [address] [id number] [address] [place] [address], [place] [address] 13 May, 2012 [facility] [address] [id number] [address] [place] [address], [place] [address] May, [facility] [address] [id number] [address] [place] [address], [place] [address] Apr, [facility] [address] [id number] [address] [place] [address], [place] [address] Apr, [facility] [address] [id number] [address] [place] [address], [place] [address] Mar, [facility] [address] [id number] [address] [place] [address], [place] [address] 26 Mar, 2012 [facility] [address] [id number] [address] [place] [address], [place] [address] 19 Mar, 2012 [facility] [address] [id number] [address] [place] [address], [place] [address] 17 Mar, 2012 [facility] [address] [id number] [address] [place] [address], [place] [address] 17 Mar, 2012 [facility] [address] [id number] [address] [place] [address], [place] [address] 13 Mar, 2012 [facility] [address] [id number] [address] [place] [address] Feb, [facility] [address] [id number] [address] [place] [address], [place] [address] Feb, [facility] [address] [id number] [address] [place] [address] Feb, [facility] [address] [id number] [address] [place] [address], [place] [address] Jan, [facility] [address] [id number] [address] [place] [address], [place] [address] 29 Jan, 2012 [facility] [address] [id number] [address] [place] [address], [place] [address] Jan, [facility] [address] [id number] [address] [place] [address], [place] [address] Jan, [facility] [address] [id number] [address] [place] [address], [place] [address] 24 Jan, 2012 [facility] [address] [id number] [address] [place] [address], [place] [address] Jan, [facility] [address] [id number] [address] [place] [address], [place] [address] 17 Jan, 2012 [facility] [address] [id number] [address] [place] [address], [place] [address] 16 Jan, 2012 [facility] [address] [id number] [address] [place] [address], [place] [address] 16 Jan, 2012 [facility] [address] [id number] [address] [place] [address], [place] [address] 18 Dec, 2011 [facility] [address] [id number] [address] [place] [address], [place] [address] 13 Dec, 2011 [facility] [address] [id number] [address] [place] [address], [place] [address] 11 Dec, 2011 [facility] [address] [id number] [address] [place] [address], [place] [address] Nov, [facility] [address] [id number] [facility] [place] [address] 17 Nov, 2011 [facility] [address] [id number] [address] [place] [address], [place] [address] Nov, [facility] [address] [id number] [address] [place] [address], [place] [address] Oct, [facility] [address] [id number] [address] [place] [address], [place] [address] Oct, [facility] [address] [id number] [address] [place] [address], [place] [address] Sep, [facility] [address] [id number] [address] [place] [address], [place] [address] Sep, [facility] [address] [id number] [address] [place] [address], [place] [address] Sep, [facility] [address] [id number] [address] [place] [address], [place] [address] Sep, [facility] [address] [id number] [address] [place] [address], [place] [address] Sep, [facility] [address] [id number] [address] [place] [address], [place] [address] August, [facility] [address] [id number] [address] [place] [address], [place] [address] August, [facility] [address] [id number] [address] [place] [address], [place] [address] August, [facility] [address] [id number] [address] [place] [address], [place] [address] August, [facility] [address] [id number] [address] [place] [address], [place] [address] August, [facility] [address] [id number] [address] [place] [address], [place] [address] August, [facility] [address] [id number] [address] [place] [address], [place] [address] August, [facility] [address] [id number] [address] [place] [address], [place] [id number] August, [facility] [address] [id number] [address] [place] [address], [place] [address] August, [facility] [address] [id number] [address] [place] [address], [place] [address] 27 Jul, 2011 [facility] [address] [id number] [address] [place] [address], [place] [address] Jul, [facility] [address] [id number] [address] [place] [address], [place] [address] 10 Jul, 2011 [facility] [address] [id number] [address] [place] [address], [place] [address] 04 Jul, 2011 [facility] [address] [id number] [address] [place] [address], [place] [address] 27 Jun, 2011 [facility] [address] [id number] [address] [place] [address], [place] [address] 13 Jun, 2011 [facility] [address] [id number] [address] [place] [address], [place] [address] 13 Jun, 2011 [facility] [address] [id number] [address] [place] [address], [place] [address] 27 May, 2011 [facility] [address] [id number] [address] [place] [address], [place] [address] 24 May, 2011 [facility] [address] [id number] [address] [place] [address], [place] [address] 20 May, 2011 [facility] [address] [id number] [address] [place] [address], [place] [address] 16 May, 2011 [facility] [address] [id number] [address] [place] [address], [place] [address] 15 May, 2011 [facility] [address] [id number] [address] [place] [address], [place] [address] 14 May, 2011 [facility] [address] [id number] [address] [place] [address], [place] [address] 10 May, 2011 [facility] [address] [id number] [address] [place] [address], [place] [address] May, [facility] [address] [id number] [address] [place] [address], [place] [address] May, [facility] [address] [id number] [address] [place] [address], [place] [address] Apr, [facility] [address] [id number] [address] [place] [address], [place] [address] Apr, [facility] [address] [id number] [address] [place] [address], [place] [address] Apr, [facility] [address] [id number] [address] [place] [address], [place] [address] Apr, [facility] [address] [id number] [address] [place] [address], [place] [address] Apr, [facility] [address] [id number] [address] [place] [address], [place] [address] Apr, [facility] [address] [id number] [address] [place] [address], [place] [address] Apr, [facility] [address] [id number] [address] [place] [address], [place] [address] Apr, [facility] [address] [id number] [address] [place] [address], [place] [address] Apr, [facility] [address] [id number] [address] [place] [address], [place] [address] Apr, [facility] [address] [id number] [address] [place] [address], [place] [address] Apr, [facility] [address] [id number] [address] [place] [address], [place] [address] Mar, [facility] [address] [id number] [address] [place] [address] [address] Mar, [facility] [address] [facility] [id number] [address] [place] [address] Mar, [facility] [address] [facility] [id number] [address] [place] [address] Mar, [facility] [address] [facility] [id number] [address] [place] [address] Feb, [facility] [address] [facility] [id number] [address] [place] [address] Feb, [facility] [address] [facility] [id number] [address] [place] [address] Jan, [facility] [address] [facility] [id number] [address] [place] [address] Nov, IMMUNIZATIONS No Known Immunizations SOCIAL HISTORY [...] laser treatment for glaucoma Hospitalization History [facility]- Right side and back pain related to fall, hurts to breathe (ED at 7 pm) 06/07/2017 Hospitalization History [facility] Duarte [place]- Anxiety ( went to ED at 1200) 06/07/2017 Hospitalization History COPD exacerbation - Gerald Pizano 2017 Hospitalization History Blood clot, port placement - Gerald Pizano 09/2017
--- OUTSIDE RECORDS SUMMARY | 2019-09-01 14:23 | XMS REPORT ---
Author Author RADHA Sophianaren OLIVA [facility] Address [address] [place] [address] Care Team Providers Care Gas Line Servicer Name Role Phone RADHAGASPER MCPHERSONY Unavailable PROBLEMS Type Condition ICD9-CM Code [id number] Code Onset Dates Condition S tatus SNOMED Code Problem Proteinuria R80.9 Active 72646288 Problem Essential hypertension I10 Active 15172305 Problem Anxiety F41.9 Active 37963533 Problem Type 2 diabetes mellitus without complication E11. 9 Active 04937215 Problem Hyperlipidemia, unspecified hyperlipidemia E78.5 Active 07687737 Problem Major depressive disorder, recurrent episode, un specified severity F33.9 Active 82286421 Problem Sciatica, unspecified laterality M54.30 Active 59821566 Problem Acute cystitis with hematuria N30.01 Active 64328975 Problem Chronic pain syndrome G89.4 Active 428830072 Problem Exacerbation of systemic lupus M32.9 Active 70289740 Problem Generalized abdominal pain R10.84 Act sree 430222144 Problem Carpal tunnel syndrome, right upper limb G56.01 Active 20305795 Problem History of small bowel obstruction Z87.19 Active 286848678 Problem History of pulmonary embolism Z86.711 Active 107733216 Problem Presence of IVC filter Z95.828 Active 759487113 Problem Port catheter in place Z95.828 Active 414684995 Problem Gastroesophageal reflux disease, esophagitis pre sence not specified K21.9 Active 965848597 Problem Chronic pancreatitis, unspecified pancreatitis type K86.1 Active 706252187 Problem Hypothyroidism, unspecified type E03.9 Active 57179714 Problem Vitamin D deficiency E55.9 Active 75958465 Problem Nausea R11.0 Active 874640614 Problem Pneumonia due to infectious organism, unspecified laterality, unspecified part of lung J18.9 Active 312 061488 Problem Gastroesophageal reflux disease without esophagitis K21.9 Active 981483069 Problem Violation of controlled substance agreement Z91.14 Active 605929587 Problem Obstructive sleep apnea G47.33 Active 05433823 Problem Hypertension, benign I10 Active 93295147 Problem Venous insufficiency I87.2 Active 44386417 Problem Chronic obstructive pulmonary disease, unspecified COPD ty pe J44.9 Active 73197619 Problem Tobacco abuse counseling Z71.6 Activ e 00135829 Problem 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 A ctive 715596949 Problem Opiate dependence, continuous F11.20 Active 369623879 Problem Cannabis abuse with physiological dependence F12.1 0 Active 93329569 ALLERGIES No Information ENCOUNTERS Encounter Location Date Diagnosis [facility] [address] [id number] Jul, [facility] [address] [id number] May, [facility] [address] [address] Apr, Tobacco abuse Z72.0 ; Hypert ension, benign I10 and Tobacco abuse counseling Z71.6 [facility] [address] [place] [id number] [place] [phone] Sep, [facility] [address] [id number] Sep, [facility] [address] [id number] Sep, Essential hypertension I10 [facility] [address] [id number] [place] [phone] Sep, [facility] [address] [place] [id number] [address] [place] [id number] Sep, [facility] [address] [id number] [address] [place] [id number] Sep, Neck mass R22.1 [facility] [address] [place] [id number] [address] [place] [id number] August, Neck mass R22.1 [facility] [address] [id number] [address] [place] [id number] Feb, Left foot pain M79.672 [facility] [address] [facility] [id number] [address] [place] [id number] Jun, Chronic pain syndrome G89.4 [facility] [place] [id number] [place] [id number] May, [facility] [address] [facility] [id number] [address] [place] [id number] May, [facility] [address] [facility] [id number] [address] [place] [phone] May, Chronic pain syndrome G89.4 [facility] [address] [facility] [id number] [address] [place] [id number] 13 May, 2017 [facility] [address] [facility] [id number] [address] [place] [id number] 10 May, 2017 Encounter for immunization Z 23 and Laceration of left index finger without foreign body without damage to nail, initial encounter S61.211A [facility] [address] [facility] [id number] [address] [place] [id number] 09 May, 2017 Chronic pain syndrome G89.4 [facility] [address] [facility] [id number] [address] [place] [id number] 07 May, 2017 [facility] [address] [facility] [id number] [address] [place] [id number] Apr, Cannabis abuse with physiolo gical dependence F12.10 ; Violation of controlled substance agreement Z91.14 and Opiate dependence, continuous F11.20 [facility] [address] [facility] [id number] [address] [place] [id number] Apr, Type 2 diabetes mellitus wit hout complication E11.9 [facility] [address] [facility] [id number] [address] [place] [phone] Apr, [facility] [address] [facility] [id number] [address] [place] [phone] Apr, Chronic pain syndrome G89.4 [facility] [address] [facility] [id number] [address] [place] [phone] Apr, Viral syndrome B34.9 [facility] [address] [id number] [address] [place] [id number] Apr, [facility] [address] [facility] [id number] [address] [place] [phone] Mar, Chronic pain syndrome G89.4 [facility] [address] [facility] [id number] [address] [place] [id number] Mar, [facility] [address] [facility] [id number] [address] [place] [phone] Mar, [facility] [address] [facility] [id number] [address] [place] [id number] Feb, Essential hypertension I10 ; Chronic pain syndrome G89.4 ; Hyperlipidemia, unspecified hyperlipidemia E78.5 ; 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 and Encounter for immunization Z23 [facility] [address] [facility] [id number] [address] [place] [phone] Feb, Chronic pain syndrome G89.4 [facility] [address] [facility] [id number] [address] [place] [phone] Jan, Chronic pain syndrome G89.4 [facility] [address] [facility] [id number] [address] [place] [phone] Jan, [facility] [address] [facility] [id number] [address] [place] [id number] Jan, Bronchitis J40 ; Port cathet er in place Z95.828 and Chronic pain syndrome G89.4 [facility] [place] [id number] [place] [id number] Jan, [facility] [address] [facility] [id number] [address] [place] [phone] Dec, Chronic pain syndrome G89.4 [facility] [address] [facility] [id number] [address] [place] [phone] Dec, Chronic pain syndrome G89.4 [facility] [address] [id number] [address] [place] [phone] Dec, [facility] [address] [id number] [address] [place] [phone] Nov, [facility] [address] [id number] [address] [place] [phone] Nov, Chronic pain syndrome G89.4 [facility] [address] [id number] [address] [place] [phone] Oct, Chronic pain syndrome G89.4 [facility] [address] [id number] [address] [place] [phone] Oct, [facility] [address] [id number] [address] [place] [phone] Sep, Chronic pain syndrome G89.4 [facility] [address] [id number] [address] [place] [id number] Sep, Exacerbation of systemic lup us M32.9 [facility] [address] [id number] [address] [place] [phone] Sep, [facility] [address] [id number] [address] [place] [phone] Sep, [facility] [address] [id number] [address] [place] [phone] Sep, Nausea R11.0 [facility] [address] [id number] [address] [place] [phone] August, Chronic pain syndrome G89.4 [facility] [address] [id number] [address] [place] [phone] August, [facility] [address] [id number] [address] [place] [phone] August, Chronic pain syndrome G89.4 [facility] [address] [place] [id number] [place] [phone] Jul, Pneumonia due to infectious organism, unspecified laterality, unspecified part of lung J18.9 and Tobacco abuse counseling Z71.6 [place] [address] [id number] 06 Jul, 2016 Chronic pain syndrome G89.4 [place] [address] [address] Jun, Essential hypertension I10 [place] [address] [address] Jun, Pneumonia due to infectious organism, unspecified laterality, unspecified part of lung J18.9 [place] [address] [address] Jun, Chronic pain syndrome G89.4 [place] [address] [id number] May, Essential hypertension I10 ; Type 2 [...] and Gastroesophageal reflux disease without esophagitis K21.9 [place] [address] [place] [id number] [place] [phone] Apr, [place] [address] [id number] Apr, Pneumonia due to infectious organism, unspecified laterality, unspecified part of lung J18.9 and Nausea R11.0 [place] [address] [place] [id number] [place] [id number] Apr, Essential hypertension I10 ; Chronic pain syndrome G89.4 ; Type 2 diabetes mellitus without complication E11.9 ; Hyperlipidemia, unspecified hyperlipidemia E78.5 ; Major depressive disorder, recurrent episode, unspecified severity F33.9 ; Sciatica, unspecified laterality M54.30 ; Chronic obstructive pulmonary disease, unspecified COPD type J44.9 ; Pneumonia due to infectious organism, unspecified laterality, unspecified part of lung J18.9 and Nausea R11.0 [facility] [address] [id number] [place] [id number] Mar, [place] [address] [place] [id number] [place] [id number] Mar, [place] [address] [id number] Mar, [place] [address] [id number] Mar, Anxiety F41.9 and Major depr essive disorder, recurrent episode, unspecified severity F33.9 [place] [address] [place] [id number] [place] [phone] Mar, [place] [address] [place] [id number] [place] [id number] Mar, [place] [address] [id number] Mar, Generalized abdominal pain R 10.84 ; Acute cystitis with hematuria N30.01 and Essential hypertension I10 [facility] [address] [id number] [place] [id number] Mar, Sore throat J02.9 and Exacer bation of systemic lupus M32.9 [place] [address] [place] [id number] [place] [id number] Feb, Type 2 diabetes mellitus wit hout [...] reflux disease, esophagitis presence not specified K21.9 [facility] [address] [facility] [id number] [address] [place] [phone] Feb, [place] [address] [facility] [id number] [address] [place] [id number] Jan, [facility] [address] [facility] [id number] [address] [place] [id number] Jan, Right arm pain M79.[address] of right wrist, initial encounter S66.911A [place] [address] [place] [id number] [address] [place] [phone] Jan, [facility] [address] [place] [id number] [address] [place] [id number] Dec, Generalized abdominal pain R 10.84 [place] [address] [facility] [id number] [address] [place] [phone] Dec, Adenopathy R59.1 [place] [address] [facility] [id number] [address] [place] [phone] Dec, Bronchitis J40 [place] [address] [place] [id number] [address] [place] [id number] 14 Dec, 2015 [place] [address] [place] [id number] [address] [place] [phone] Dec, Essential hypertension I10 [place] [address] [facility] [id number] [address] [place] [id number] Nov, [place] [address] [place] [id number] [address] [place] [id number] Nov, [place] [address] [facility] [id number] [address] [place] [id number] Nov, Essential hypertension I10 ; Hyperlipidemia, unspecified [...] Type 2 diabetes mellitus without complication E11.9 [place] [address] [id number] Nov, [place] [address] [id number] Oct, Type 2 diabetes mellitus wit hout complication E11.9 ; Essential hypertension I10 ; Other viral warts B07.8 ; [place] or callus L84 and Hyperlipidemia, unspecified hyperlipidemia E78.5 [place] [id number] [place] [id number] Sep, [place] [address] [place] [id number] [address] [place] [phone] Sep, [place] [address] [place] [id number] [address] [place] [phone] Jun, [place] [address] [place] [id number] [address] [place] [id number] Jun, [place] [address] [place] [id number] [address] [place] [phone] May, [facility] [address] [place] [id number] [address] [place] [id number] Apr, [place] [address] [place] [id number] [address] [place] [phone] Feb, [place] [address] [place] [id number] [place] [phone] Feb, COPD exacerbation J44.1 and Acute upper respiratory infection J06.9 [facility] [address] [id number] [address] [place] [phone] Feb, [facility] [address] [id number] [address] [place] [phone] Feb, [facility] [address] [id number] [address] [place] [id number] Feb, [facility] [address] [id number] [address] [place] [id number] Feb, [facility] [address] [id number] [address] [place] [id number] Jan, Left hip pain M25.552 [facility] [address] [id number] [address] [place] [id number] Jan, Essential hypertension I10 ; Chronic pain syndrome G89.4 ; Type 2 diabetes mellitus without complication E11.9 and Hyperlipidemia, unspecified hyperlipidemia E78.5 [facility] [address] [id number] [address] [place] [id number] Jul, [facility] [address] [id number] [address] [place] [id number] Jul, [facility] [address] [id number] [address] [place] [id number] Jul, [facility] [address] [id number] [address] [place] [phone] Jun, [facility] [address] [id number] [address] [place] [phone] Jun, [facility] [address] [id number] [address] [place] [id number] Jun, [facility] [address] [id number] [address] [place] [phone] Jun, [facility] [address] [id number] [address] [place] [id number] 20 Jun, 2014 [facility] [address] [id number] [address] [place] [address], [place] [id number] Jun, [facility] [address] [id number] [address] [place] [address], [place] [id number] Jun, [facility] [address] [id number] [address] [place] [address], [place] [id number] 19 Jun, 2014 [facility] [address] [id number] [address] [place] [address], [place] [id number] 18 Jun, 2014 [facility] [address] [id number] [address] [place] [address], [place] [id number] 18 Jun, 2014 [facility] [address] [id number] [address] [place] [address], [place] [id number] Jun, [facility] [address] [id number] [address] [place] [address], [place] [id number] Jun, [facility] [address] [id number] [address] [place] [address], [place] [id number] Apr, [facility] [address] [id number] [address] [place] [address], [place] [id number] Apr, [facility] [address] [id number] [address] [place] [address], [place] [id number] Apr, [facility] [address] [id number] [address] [place] [address], [place] [id number] Apr, [facility] [address] [id number] [address] [place] [address], [place] [id number] Apr, [facility] [address] [id number] [address] [place] [address], [place] [id number] Apr, [facility] [address] [id number] [address] [place] [address], [place] [id number] Apr, [facility] [address] [id number] [address] [place] [address], [place] [id number] Apr, [facility] [address] [id number] [address] [place] [address], [place] [id number] 31 Mar, 2014 [facility] [address] [id number] [address] [place] [address], [place] [id number] Mar, [facility] [address] [id number] [address] [place] [address], [place] [id number] Mar, [facility] [address] [id number] [address] [place] [address], [place] [id number] Mar, [facility] [address] [id number] [address] [place] [address], [place] [id number] Mar, [facility] [address] [id number] [address] [place] [address], [place] [id number] 18 Mar, 2014 [facility] [address] [id number] [address] [place] [address], [place] [id number] 15 Mar, 2014 [facility] [address] [id number] [address] [place] [address], [place] [id number] Mar, [facility] [address] [id number] [address] [place] [address], [place] [id number] Mar, [facility] [address] [id number] [address] [place] [address], [place] [id number] 08 Mar, 2014 [facility] [address] [id number] [address] [place] [address], [place] [id number] Mar, [facility] [address] [id number] [address] [place] [address], [place] [id number] 05 Mar, 2014 [facility] [address] [id number] [address] [place] [address], [place] [id number] Mar, [facility] [address] [id number] [address] [place] [address], [place] [id number] Feb, [facility] [address] [id number] [address] [place] [address], [place] [id number] Feb, [facility] [address] [id number] [address] [place] [address], [place] [id number] Feb, [facility] [address] [id number] [address] [place] [address], [place] [id number] Feb, [facility] [address] [id number] [address] [place] [address], [place] [id number] Feb, [facility] [address] [id number] [address] [place] [address], [place] [id number] Feb, [facility] [address] [id number] [address] [place] [address], [place] [id number] Feb, [facility] [address] [id number] [address] [place] [address], [place] [id number] Feb, [facility] [address] [id number] [address] [place] [address], [place] [id number] Jan, [facility] [address] [id number] [address] [place] [address], [place] [id number] Jan, [facility] [address] [id number] [address] [place] [address], [place] [id number] Jan, [facility] [address] [id number] [address] [place] [address], [place] [id number] Jan, [facility] [address] [id number] [address] [place] [address], [place] [id number] Jan, [facility] [address] [id number] [address] [place] [address], [place] [id number] Jan, [facility] [address] [id number] [address] [place] [id number] Jan, [facility] [address] [id number] [address] [place] [address], [place] [id number] Jan, [facility] [address] [id number] [address] [place] [address], [place] [id number] Jan, [facility] [address] [id number] [address] [place] [address], [place] [id number] 30 Dec, 2013 [facility] [address] [id number] [address] [place] [id number] 30 Dec, 2013 [facility] [address] [id number] [address] [place] [address], [place] [id number] 26 Dec, 2013 [facility] [address] [id number] [address] [place] [id number] 26 Dec, 2013 [facility] [address] [id number] [address] [place] [address], [place] [id number] 16 Dec, 2013 [facility] [address] [id number] [address] [place] [address], [place] [id number] 16 Dec, 2013 [facility] [address] [id number] [address] [place] [address], [place] [id number] 08 Dec, 2013 [facility] [address] [id number] [address] [place] [address], [place] [id number] 08 Dec, 2013 [facility] [address] [id number] [address] [place] [address], [place] [id number] 04 Dec, 2013 [facility] [address] [id number] [address] [place] [address], [place] [id number] Dec, 2013 [facility] [address] [id number] [address] [place] [address], [place] [id number] Nov, [facility] [address] [id number] [address] [place] [address], [place] [id number] Nov, [facility] [address] [id number] [address] [place] [address], [place] [id number] Nov, [facility] [address] [id number] [address] [place] [address], [place] [id number] Nov, [facility] [address] [id number] [address] [place] [address], [place] [id number] Nov, [facility] [address] [id number] [address] [place] [address], [place] [id number] Nov, [facility] [address] [id number] [address] [place] [address], [place] [id number] Nov, [facility] [address] [id number] [address] [place] [id number] Nov, [facility] [address] [id number] [address] [place] [address], [place] [id number] Nov, [facility] [address] [id number] [address] [place] [address], [place] [id number] Nov, [facility] [address] [id number] [address] [place] [address], [place] [id number] Nov, [facility] [address] [id number] [address] [place] [address], [place] [id number] Nov, [facility] [address] [id number] [address] [place] [address], [place] [id number] Nov, [facility] [address] [id number] [address] [place] [address], [place] [id number] Oct, [facility] [address] [id number] [address] [place] [address], [place] [id number] Oct, [facility] [address] [id number] [address] [place] [address], [place] [id number] Oct, [facility] [address] [id number] [address] [place] [address], [place] [id number] Oct, [facility] [facility] [address] [id number] [address] [place] [address], [place] [id number] Oct, [facility] [address] [id number] [address] [place] [address], [place] [id number] Oct, [facility] [address] [id number] [address] [place] [address], [place] [id number] Sep, [facility] [address] [id number] [address] [place] [address], [place] [id number] Sep, [facility] [address] [id number] [address] [place] [address], [place] [id number] Sep, [facility] [address] [id number] [address] [place] [address], [place] [id number] Sep, [facility] [address] [id number] [facility] [place] [id number] Sep, [facility] [address] [id number] [address] [place] [address], [place] [id number] Sep, [facility] [address] [id number] [address] [place] [address], [place] [id number] Sep, [facility] [address] [id number] [address] [place] [address], [place] [id number] Sep, [facility] [address] [id number] [address] [place] [address], [place] [id number] Sep, [facility] [address] [id number] [address] [place] [address], [place] [id number] Sep, [facility] [address] [id number] [address] [place] [address], [place] [id number] Sep, [facility] [address] [id number] [address] [place] [address], [place] [id number] Sep, [facility] [address] [id number] [address] [place] [address], [place] [id number] August, [facility] [address] [id number] [address] [place] [address], [place] [id number] August, [facility] [address] [id number] [address] [place] [address], [place] [id number] Jul, [facility] [address] [id number] [address] [place] [address], [place] [id number] Jul, [facility] [address] [id number] [address] [place] [address], [place] [id number] Jul, [facility] [address] [id number] [address] [place] [address], [place] [id number] Jul, [facility] [address] [id number] [address] [place] [address], [place] [id number] Jul, [facility] [address] [id number] [facility] [place] [id number] 22 Jul, 2013 [facility] [address] [id number] [facility] [place] [id number] 16 Jul, 2013 [facility] [address] [id number] [facility] [place] [id number] 16 Jul, 2013 [facility] [address] [id number] [address] [place] [address], [place] [id number] 15 Jul, 2013 [facility] [address] [id number] [address] [place] [address], [place] [id number] 15 Jul, 2013 [facility] [address] [id number] [address] [place] [address], [place] [id number] Jul, [facility] [address] [id number] [address] [place] [address], [place] [id number] Jun, [facility] [address] [id number] [address] [place] [address], [place] [id number] Jun, [facility] [address] [id number] [address] [place] [address], [place] [id number] Jun, [facility] [address] [id number] [address] [place] [address], [place] [id number] Jun, [facility] [address] [id number] [address] [place] [address], [place] [id number] Jun, [facility] [address] [id number] [address] [place] [address], [place] [id number] Jun, [facility] [address] [id number] [address] [place] [address], [place] [id number] Jun, [facility] [address] [id number] [address] [place] [address], [place] [id number] Jun, [facility] [address] [id number] [address] [place] [address], [place] [id number] May, [facility] [address] [id number] [address] [place] [address], [place] [id number] May, [facility] [address] [id number] [address] [place] [address], [place] [id number] May, [facility] [address] [id number] [address] [place] [address], [place] [id number] May, [facility] [address] [id number] [address] [place] [address], [place] [id number] May, [facility] [address] [id number] [address] [place] [address], [place] [id number] May, [facility] [address] [id number] [address] [place] [address], [place] [id number] May, [facility] [address] [id number] [address] [place] [address], [place] [id number] May, [facility] [address] [id number] [address] [place] [address], [place] [id number] May, [facility] [address] [id number] [address] [place] [address], [place] [id number] May, [facility] [address] [id number] [address] [place] [address], [place] [id number] May, [facility] [address] [id number] [address] [place] [address], [place] [id number] May, [facility] [address] [id number] [address] [place] [address], [place] [id number] May, [facility] [address] [id number] [address] [place] [address], [place] [id number] Apr, [facility] [address] [id number] [address] [place] [address], [place] [id number] Apr, [facility] [address] [id number] [address] [place] [address], [place] [id number] Apr, [facility] [address] [id number] [address] [place] [address], [place] [id number] Apr, [facility] [address] [id number] [address] [place] [address], [place] [id number] Apr, [facility] [address] [id number] [address] [place] [address], [place] [id number] Apr, [facility] [address] [id number] [address] [place] [address], [place] [id number] Apr, [facility] [address] [id number] [address] [place] [address], [place] [id number] Apr, [facility] [address] [id number] [address] [place] [address], [place] [id number] Apr, [facility] [address] [id number] [address] [place] [address], [place] [id number] Apr, [facility] [address] [id number] [address] [place] [address], [place] [id number] Apr, [facility] [address] [id number] [address] [place] [address], [place] [id number] Apr, [facility] [address] [id number] [address] [place] [address], [place] [id number] Apr, [facility] [address] [id number] [address] [place] [address], [place] [id number] Apr, [facility] [address] [id number] [address] [place] [address], [place] [id number] Apr, [facility] [address] [id number] [address] [place] [address], [place] [id number] Mar, [facility] [address] [id number] [address] [place] [address], [place] [id number] Mar, [facility] [address] [id number] [address] [place] [address], [place] [id number] Mar, [facility] [address] [id number] [address] [place] [address], [place] [id number] Mar, [facility] [address] [id number] [address] [place] [address], [place] [id number] Mar, [facility] [address] [id number] [address] [place] [address], [place] [id number] Mar, [facility] [address] [id number] [address] [place] [address], [place] [id number] 17 Mar, 2013 [facility] [address] [id number] [address] [place] [address], [place] [id number] 17 Mar, 2013 [facility] [address] [id number] [address] [place] [address], [place] [id number] Mar, [facility] [address] [id number] [address] [place] [address], [place] [id number] Mar, [facility] [address] [id number] [address] [place] [address], [place] [id number] Mar, [facility] [address] [id number] [address] [place] [address], [place] [id number] Mar, [facility] [address] [id number] [address] [place] [address], [place] [id number] Feb, [facility] [address] [id number] [address] [place] [address], [place] [id number] Feb, [facility] [address] [id number] [address] [place] [address], [place] [id number] Feb, [facility] [address] [id number] [address] [place] [id number] Feb, [facility] [address] [id number] [address] [place] [id number] Feb, [facility] [address] [id number] [address] [place] [address], [place] [id number] Feb, [facility] [address] [id number] [address] [place] [id number] Feb, [facility] [address] [id number] [address] [place] [address], [place] [id number] Feb, [facility] [address] [id number] [address] [place] [address], [place] [id number] Jan, [facility] [address] [id number] [address] [place] [address], [place] [id number] Jan, [facility] [address] [id number] [address] [place] [address], [place] [id number] Jan, [facility] [address] [id number] [address] [place] [address], [place] [id number] Jan, [facility] [address] [id number] [address] [place] [address], [place] [id number] Jan, [facility] [address] [id number] [address] [place] [address], [place] [id number] Jan, [facility] [address] [id number] [address] [place] [address], [place] [id number] Jan, [facility] [address] [id number] [address] [place] [address], [place] [id number] Dec, [facility] [address] [id number] [address] [place] [address], [place] [id number] Dec, [facility] [address] [id number] [address] [place] [address], [place] [id number] Dec, [facility] [address] [id number] [address] [place] [address], [place] [id number] Dec, [facility] [address] [id number] [address] [place] [address], [place] [id number] Dec, [facility] [address] [id number] [address] [place] [address], [place] [id number] Nov, [facility] [address] [id number] [address] [place] [address], [place] [id number] Nov, [facility] [address] [id number] [address] [place] [address], [place] [id number] Nov, [facility] [address] [id number] [address] [place] [address], [place] [id number] Nov, [facility] [address] [id number] [address] [place] [address], [place] [id number] Nov, [facility] [address] [id number] [address] [place] [address], [place] [id number] Nov, [facility] [address] [id number] [address] [place] [address], [place] [id number] Nov, [facility] [address] [id number] [address] [place] [address], [place] [id number] Oct, [facility] [address] [id number] [address] [place] [address], [place] [id number] Oct, [facility] [address] [id number] [address] [place] [address], [place] [id number] Oct, [facility] [address] [id number] [address] [place] [address], [place] [id number] Oct, [facility] [address] [id number] [address] [place] [address], [place] [id number] Oct, [facility] [address] [id number] [address] [place] [address], [place] [id number] Oct, [facility] [address] [id number] [address] [place] [address], [place] [id number] Oct, [facility] [address] [id number] [address] [place] [address], [place] [id number] Oct, [facility] [address] [id number] [address] [place] [address], [place] [id number] Sep, [facility] [address] [id number] [address] [place] [address], [place] [id number] Sep, [facility] [address] [id number] [address] [place] [address], [place] [id number] Sep, [facility] [address] [id number] [address] [place] [address], [place] [id number] Sep, [facility] [address] [id number] [address] [place] [address], [place] [id number] Sep, [facility] [address] [id number] [address] [place] [address], [place] [id number] Sep, [facility] [address] [id number] [address] [place] [address], [place] [id number] August, [facility] [address] [id number] [address] [place] [address], [place] [id number] August, [facility] [address] [id number] [address] [place] [address], [place] [id number] August, [facility] [address] [id number] [address] [place] [address], [place] [id number] August, [facility] [address] [id number] [address] [place] [address], [place] [id number] August, [facility] [address] [id number] [address] [place] [address], [place] [id number] Jul, [facility] [address] [id number] [address] [place] [address], [place] [id number] Jul, [facility] [address] [id number] [address] [place] [address], [place] [id number] 24 Jul, 2012 [facility] [address] [id number] [address] [place] [address], [place] [id number] Jul, [facility] [address] [id number] [address] [place] [address], [place] [id number] Jul, [facility] [address] [id number] [address] [place] [address], [place] [id number] 05 Jul, 2012 [facility] [address] [id number] [address] [place] [address], [place] [id number] 14 Jun, 2012 [facility] [address] [id number] [address] [place] [address], [place] [id number] 13 Jun, 2012 [facility] [address] [id number] [address] [place] [address], [place] [id number] 07 Jun, 2012 [facility] [address] [id number] [address] [place] [address], [place] [id number] 07 Jun, 2012 [facility] [address] [id number] [address] [place] [address], [place] [id number] 05 Jun, 2012 [facility] [address] [id number] [address] [place] [address], [place] [id number] 19 May, 2012 [facility] [address] [id number] [address] [place] [address], [place] [id number] 13 May, 2012 [facility] [address] [id number] [address] [place] [address], [place] [id number] May, [facility] [address] [id number] [address] [place] [address], [place] [id number] 23 Apr, 2012 [facility] [address] [id number] [address] [place] [address], [place] [id number] Apr, [facility] [address] [id number] [address] [place] [address], [place] [id number] Mar, [facility] [address] [id number] [address] [place] [address], [place] [id number] 26 Mar, 2012 [facility] [address] [id number] [address] [place] [address], [place] [id number] Mar, [facility] [address] [id number] [address] [place] [address], [place] [id number] 17 Mar, 2012 [facility] [address] [id number] [address] [place] [address], [place] [id number] 17 Mar, 2012 [facility] [address] [id number] [address] [place] [address], [place] [id number] 13 Mar, 2012 [facility] [address] [id number] [address] [place] [address], [place] [id number] 21 Feb, 2012 [facility] [address] [id number] [address] [place] [address], [place] [id number] 13 Feb, 2012 [facility] [address] [id number] [address] [place] [address] [address] Feb, [facility] [address] [id number] [address] [place] [address], [place] [id number] 29 Jan, 2012 [facility] [address] [id number] [address] [place] [address], [place] [id number] 29 Jan, 2012 [facility] [address] [id number] [address] [place] [address], [place] [id number] Jan, [facility] [address] [id number] [address] [place] [address], [place] [id number] Jan, [facility] [address] [id number] [address] [place] [address], [place] [id number] 24 Jan, 2012 [facility] [address] [id number] [address] [place] [address], [place] [id number] Jan, [facility] [address] [id number] [address] [place] [address], [place] [id number] Jan, [facility] [address] [id number] [address] [place] [address], [place] [id number] 16 Jan, 2012 [facility] [address] [id number] [address] [place] [address], [place] [id number] 16 Jan, 2012 [facility] [address] [id number] [address] [place] [address], [place] [id number] 18 Dec, 2011 [facility] [address] [id number] [address] [place] [address], [place] [id number] 13 Dec, 2011 [facility] [address] [id number] [address] [place] [id number] 11 Dec, 2011 [facility] [address] [id number] [address] [place] [address], [place] [id number] 22 Nov, 2011 [facility] [address] [id number] [address] [place] [address], [place] [id number] 17 Nov, 2011 [facility] [address] [id number] [address] [place] [address], [place] [id number] 16 Nov, 2011 [facility] [address] [id number] [address] [place] [address], [place] [id number] 16 Oct, 2011 [facility] [address] [id number] [address] [place] [address], [place] [id number] 06 Oct, 2011 [facility] [address] [id number] [address] [place] [address], [place] [id number] Sep, [facility] [address] [id number] [address] [place] [address], [place] [id number] Sep, [facility] [address] [id number] [address] [place] [address], [place] [id number] Sep, [facility] [address] [id number] [address] [place] [address], [place] [id number] Sep, [facility] [address] [id number] [address] [place] [address], [place] [id number] Sep, [facility] [address] [id number] [address] [place] [address], [place] [id number] August, [facility] [address] [id number] [address] [place] [address], [place] [id number] August, [facility] [address] [id number] [address] [place] [address], [place] [id number] August, [facility] [address] [id number] [address] [place] [address], [place] [id number] August, [facility] [address] [id number] [address] [place] [address], [place] [id number] August, [facility] [address] [id number] [address] [place] [address], [place] [id number] August, [facility] [address] [id number] [address] [place] [address], [place] [id number] August, [facility] [address] [id number] [address] [place] [address], [place] [id number] August, [facility] [address] [id number] [address] [place] [address], [place] [id number] August, [facility] [address] [id number] [address] [place] [address], [place] [id number] 27 Jul, 2011 [facility] [address] [id number] [address] [place] [address], [place] [id number] 19 Jul, 2011 [facility] [address] [id number] [address] [place] [address], [place] [id number] 10 Jul, 2011 [facility] [address] [id number] [address] [place] [address], [place] [id number] 04 Jul, 2011 [facility] [address] [id number] [address] [place] [address], [place] [id number] 27 Jun, 2011 [facility] [address] [id number] [address] [place] [address], [place] [id number] 13 Jun, 2011 [facility] [address] [id number] [address] [place] [address], [place] [id number] Jun, [facility] [address] [id number] [address] [place] [address], [place] [id number] 27 May, 2011 [facility] [address] [id number] [address] [place] [address], [place] [id number] 24 May, 2011 [facility] [address] [id number] [address] [place] [address], [place] [id number] 20 May, 2011 [facility] [address] [id number] [address] [place] [address], [place] [id number] 16 May, 2011 [facility] [address] [id number] [address] [place] [address], [place] [id number] 15 May, 2011 [facility] [address] [id number] [address] [place] [address], [place] [id number] 14 May, 2011 [facility] [address] [id number] [address] [place] [address], [place] [id number] 10 May, 2011 [facility] [address] [id number] [address] [place] [address], [place] [id number] 09 May, 2011 [facility] [address] [id number] [address] [place] [address], [place] [id number] 02 May, 2011 [facility] [address] [id number] [address] [place] [address], [place] [id number] Apr, [facility] [address] [id number] [address] [place] [address], [place] [id number] Apr, [facility] [address] [id number] [address] [place] [address], [place] [id number] Apr, [facility] [address] [id number] [address] [place] [address], [place] [id number] Apr, [facility] [address] [id number] [address] [place] [address], [place] [id number] Apr, [facility] [address] [id number] [address] [place] [address], [place] [id number] Apr, [facility] [address] [id number] [address] [place] [address], [place] [id number] Apr, [facility] [address] [id number] [address] [place] [address], [place] [id number] Apr, [facility] [address] [id number] [address] [place] [address], [place] [id number] Apr, [facility] [address] [id number] [address] [place] [address], [place] [id number] Apr, [facility] [address] [id number] [address] [place] [address], [place] [id number] Apr, [facility] [address] [id number] [address] [place] [address], [place] [id number] Mar, [facility] [address] [id number] [address] [place] [address], [place] [id number] Mar, [facility] [address] [id number] [address] [place] [address], [place] [id number] Mar, [facility] [address] [id number] [address] [place] [address], [place] [id number] Mar, [facility] [address] [facility] [id number] [address] [place] [id number] Feb, [facility] [address] [facility] [id number] [address] [place] [phone] Feb, [facility] [address] [facility] [id number] [address] [place] [id number] Jan, [facility] [address] [facility] [id number] [address] [place] [phone] Nov, IMMUNIZATIONS No Known Immunizations SOCIAL HISTORY [...] laser treatment for glaucoma Hospitalization History [facility] [place]- Right side and back pain related to fall, hurts to breathe (ED at 7 pm) 06/07/2017 Hospitalization History [facility] Du[facility] [place]- Anxiety ( went to ED at 1200) 06/07/2017 Hospitalization History COPD exacerbation - Gerald Pizano 2017 Hospitalization History Blood clot, port placement - Gerald Pizano 09/2017
--- OUTSIDE RECORDS SUMMARY | 2019-09-01 14:23 | XMS REPORT ---
Author Author Sophia SEGURA Organization [facility] Address [address] [place] [address] Care Team Providers Care Dye Box Operator Name Role Phone HERMINIA SEGURA Unavailable PROBLEMS Type Condition ICD9-CM Code [id number] Code Onset Dates Condition S tatus SNOMED Code Problem Proteinuria R80.9 Active 72200190 Problem Essential hypertension I10 Active 94382961 Problem Anxiety F41.9 Active 61252418 Problem Type 2 diabetes mellitus without complication E11. 9 Active 17783122 Problem Hyperlipidemia, unspecified hyperlipidemia E78.5 Active 19819321 Problem Major depressive disorder, recurrent episode, un specified severity F33.9 Active 31062819 Problem Sciatica, unspecified laterality M54.30 Active 83270056 Problem Acute cystitis with hematuria N30.01 Active 15497838 Problem Chronic pain syndrome G89.4 Active 276432395 Problem Exacerbation of systemic lupus M32.9 Active 75412575 Problem Generalized abdominal pain R10.84 Act sree 542444341 Problem Carpal tunnel syndrome, right upper limb G56.01 Active 94658408 Problem History of small bowel obstruction Z87.19 Active 408631471 Problem History of pulmonary embolism Z86.711 Active 576963245 Problem Presence of IVC filter Z95.828 Active 602684757 Problem Port catheter in place Z95.828 Active 483008030 Problem Gastroesophageal reflux disease, esophagitis pre sence not specified K21.9 Active 857108727 Problem Chronic pancreatitis, unspecified pancreatitis type K86.1 Active 074583058 Problem Hypothyroidism, unspecified type E03.9 Active 54971134 Problem Vitamin D deficiency E55.9 Active 50943884 Problem Nausea R11.0 Active 352163756 Problem Pneumonia due to infectious organism, unspecified laterality, unspecified part of lung J18.9 Active 312 094957 Problem Gastroesophageal reflux disease without esophagitis K21.9 Active 340778015 Problem Violation of controlled substance agreement Z91.14 Active 439376460 Problem Obstructive sleep apnea G47.33 Active 45690633 Problem Hypertension, benign I10 Active 08310345 Problem Venous insufficiency I87.2 Active 49512815 Problem Chronic obstructive pulmonary disease, unspecified COPD ty pe J44.9 Active 95201290 Problem Tobacco abuse counseling Z71.6 Activ e 46062412 Problem 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 A ctive 160886272 Problem Opiate dependence, continuous F11.20 Active 339749626 Problem Cannabis abuse with physiological dependence F12.1 0 Active 72438925 ALLERGIES No Information ENCOUNTERS Encounter Location Date Diagnosis [facility] [address] [place] [address] Jul, [facility] [address] [address] 04 May, 2019 [facility] [address] [address] Apr, Tobacco abuse Z72.0 ; Hypert ension, benign I10 and Tobacco abuse counseling Z71.6 [facility] [address] [place] [id number] [place] [address] Sep, [facility] [address] [address] Sep, [facility] [address] [address] Sep, Essential hypertension I10 [facility] [address] [place] [address] Sep, [facility] [address] [address] [id number] [address] [place] [address] Sep, [facility] [address] [id number] [address] [place] [address] Sep, Neck mass R22.1 [facility] [address] [id number] [address] [place] [address] August, Neck mass R22.1 [facility] [address] [facility] [id number] [address] [place] [address] Feb, Left foot pain M79.672 [facility] [address] [facility] [id number] [address] [place] [address] Jun, Chronic pain syndrome G89.4 [facility] [id number] [place] [id number] May, [facility] [address] [facility] [id number] [address] [place] [address] May, [facility] [address] [facility] [id number] [address] [place] [address] May, Chronic pain syndrome G89.4 [facility] [address] [facility] [id number] [address] [place] [address] 13 May, 2017 [facility] [address] [facility] [id number] [address] [place] [address] 10 May, 2017 Encounter for immunization Z 23 and Laceration of left index finger without foreign body without damage to nail, initial encounter S61.211A [facility] [address] [facility] [id number] [address] [place] [address] 09 May, 2017 Chronic pain syndrome G89.4 [facility] [address] [facility] [id number] [address] [place] [address] May, [facility] [address] [facility] [id number] [address] [place] [address] Apr, Cannabis abuse with physiolo gical dependence F12.10 ; Violation of controlled substance agreement Z91.14 and Opiate dependence, continuous F11.20 [facility] [address] [facility] [id number] [address] [place] [address] Apr, Type 2 diabetes mellitus wit hout complication E11.9 [facility] [address] [facility] [id number] [address] [place] [address] Apr, [facility] [address] [facility] [id number] [address] [place] [address] Apr, Chronic pain syndrome G89.4 [facility] [address] [facility] [id number] [address] [place] [address] Apr, Viral syndrome B34.9 [facility] [address] [facility] [id number] [address] [place] [address] Apr, [facility] [address] [facility] [id number] [address] [place] [address] Mar, Chronic pain syndrome G89.4 [facility] [address] [facility] [id number] [address] [place] [address] Mar, [facility] [address] [facility] [id number] [address] [place] [address] Mar, [facility] [address] [facility] [id number] [address] [place] [address] Feb, Essential hypertension I10 ; Chronic pain syndrome G89.4 ; Hyperlipidemia, unspecified hyperlipidemia E78.5 ; 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 and Encounter for immunization Z23 [facility] [address] [facility] [id number] [address] [place] [address] Feb, Chronic pain syndrome G89.4 [facility] [address] [facility] [id number] [address] [place] [address] Jan, Chronic pain syndrome G89.4 [facility] [address] [facility] [id number] [address] [place] [address] Jan, [facility] [address] [facility] [id number] [address] [place] [address] Jan, Bronchitis J40 ; Port cathet er in place Z95.828 and Chronic pain syndrome G89.4 [facility] [id number] [place] [id number] Jan, [facility] [address] [facility] [id number] [address] [place] [address] Dec, Chronic pain syndrome G89.4 [facility] [address] [facility] [id number] [address] [place] [address] Dec, Chronic pain syndrome G89.4 [facility] [address] [id number] [address] [place] [address] Dec, [facility] [address] [id number] [address] [place] [address] Nov, [facility] [address] [id number] [address] [place] [address] Nov, Chronic pain syndrome G89.4 [facility] [address] [id number] [address] [place] [address] Oct, Chronic pain syndrome G89.4 [facility] [address] [id number] [address] [place] [address] Oct, [facility] [address] [id number] [address] [place] [address] Sep, Chronic pain syndrome G89.4 [facility] [address] [id number] [address] [place] [address] Sep, Exacerbation of systemic lup us M32.9 [facility] [address] [id number] [address] [place] [address] Sep, [facility] [address] [id number] [address] [place] [address] Sep, [facility] [address] [id number] [address] [place] [address] Sep, Nausea R11.0 [facility] [address] [id number] [address] [place] [address] August, Chronic pain syndrome G89.4 [facility] [address] [id number] [address] [place] [address] August, [facility] [address] [id number] [address] [place] [address] August, Chronic pain syndrome G89.4 [facility] [address] [address] Jul, Pneumonia due to infectious organism, unspecified laterality, unspecified part of lung J18.9 and Tobacco abuse counseling Z71.6 [place] [address] [address] Jul, Chronic pain syndrome G89.4 [place] [address] [address] Jun, Essential hypertension I10 [place] [address] [address] Jun, Pneumonia due to infectious organism, unspecified laterality, unspecified part of lung J18.9 [place] [address] [address] Jun, Chronic pain syndrome G89.4 [place] [address] [address] May, Essential hypertension I10 ; Type 2 [...] and Gastroesophageal reflux disease without esophagitis K21.9 [place] [address] [address] Apr, [address] [address] Apr, Pneumonia due to infectious organism, unspecified laterality, unspecified part of lung J18.9 and Nausea R11.0 [place] [address] [address] Apr, Essential hypertension I10 ; Chronic pain syndrome G89.4 ; Type 2 diabetes mellitus without complication E11.9 ; Hyperlipidemia, unspecified hyperlipidemia E78.5 ; Major depressive disorder, recurrent episode, unspecified severity F33.9 ; Sciatica, unspecified laterality M54.30 ; Chronic obstructive pulmonary disease, unspecified COPD type J44.9 ; Pneumonia due to infectious organism, unspecified laterality, unspecified part of lung J18.9 and Nausea R11.0 [facility] [id number] [place] [address] Mar, [place] [address] [address] Mar, [place] [address] [address] Mar, [place] [address] [address] Mar, Anxiety F41.9 and Major depr essive disorder, recurrent episode, unspecified severity F33.9 [place] [address] [place] [id number] [place] [address] Mar, [place] [address] [address] Mar, [place] [address] [address] Mar, Generalized abdominal pain R 10.84 ; Acute cystitis with hematuria N30.01 and Essential hypertension I10 [facility] [address] [place] [address] Mar, Sore throat J02.9 and Exacer bation of systemic lupus M32.9 [place] [address] [place] [id number] [place] [address] Feb, Type 2 diabetes mellitus wit hout [...] reflux disease, esophagitis presence not specified K21.9 [facility] [address] [facility] [id number] [address] [place] [address] Feb, [place] [address] [place] [id number] [address] [place] [address] Jan, [facility] [address] [id number] [address] [place] [address] Jan, Right arm pain M79.[address] of right wrist, initial encounter S66.911A [place] [address] [place] [id number] [address] [place] [address] Jan, [facility] [address] [place] [address] 30 Dec, 2015 Generalized abdominal pain R 10.84 [place] [address] [place] [id number] [address] [place] [address] Dec, Adenopathy R59.1 [place] [address] [place] [id number] [place] [address] Dec, Bronchitis J40 [place] [address] [place] [id number] [place] [address] 14 Dec, 2015 [place] [address] [place] [id number] [address] [place] [address] Dec, Essential hypertension I10 [place] [address] [facility] [id number] [address] [place] [address] Nov, [place] [address] [place] [id number] [address] [place] [address] Nov, [place] [address] [facility] [id number] [address] [place] [address] Nov, Essential hypertension I10 ; Hyperlipidemia, unspecified [...] Type 2 diabetes mellitus without complication E11.9 [place] [address] [address] Nov, [place] [address] [address] Oct, Type 2 diabetes mellitus wit hout complication E11.9 ; Essential hypertension I10 ; Other viral warts B07.8 ; Cypress or callus L84 and Hyperlipidemia, unspecified hyperlipidemia E78.5 [place] [address] [place] [id number] [place] [address] Sep, [place] [address] [place] [id number] [place] [address] Sep, [place] [address] [place] [id number] [place] [address] Jun, [place] [address] [place] [id number] [address] [place] [address] Jun, [place] [address] [place] [id number] [address] [place] [address] May, [place] [address] [place] [id number] [place] [address] Apr, [place] [address] [place] [id number] [address] [place] [address] Feb, [place] [address] [address] Feb, COPD exacerbation J44.1 and Acute upper respiratory infection J06.9 [facility] [address] [id number] [address] [place] [address] Feb, [facility] [address] [id number] [address] [place] [address] Feb, [facility] [address] [id number] [address] [place] [address] Feb, [facility] [address] [id number] [address] [place] [address] Feb, [facility] [address] [id number] [address] [place] [address] Jan, Left hip pain M25.552 [facility] [address] [id number] [address] [place] [address] Jan, Essential hypertension I10 ; Chronic pain syndrome G89.4 ; Type 2 diabetes mellitus without complication E11.9 and Hyperlipidemia, unspecified hyperlipidemia E78.5 [facility] [address] [id number] [address] [place] [address] Jul, [facility] [address] [id number] [address] [place] [address] Jul, [facility] [address] [id number] [address] [place] [address] Jul, [facility] [address] [id number] [address] [place] [address] Jun, [facility] [address] [id number] [address] [place] [address] Jun, [facility] [address] [id number] [address] [place] [address] Jun, [facility] [address] [id number] [address] [place] [address] Jun, [facility] [address] [id number] [address] [place] [address] Jun, [facility] [address] [id number] [address] [place] [address], [place] [address] Jun, [facility] [address] [id number] [address] [place] [address], [place] [address] Jun, [facility] [address] [id number] [address] [place] [address], [place] [address] Jun, [facility] [address] [id number] [address] [place] [address], [place] [address] Jun, [facility] [address] [id number] [address] [place] [address], [place] [address] Jun, [facility] [address] [id number] [address] [place] [address], [place] [address] Jun, [facility] [address] [id number] [address] [place] [address], [place] [address] Jun, [facility] [address] [id number] [address] [place] [address], [place] [address] Apr, [facility] [address] [id number] [address] [place] [address], [place] [address] Apr, [facility] [address] [id number] [address] [place] [address], [place] [address] Apr, [facility] [address] [id number] [address] [place] [address], [place] [address] Apr, [facility] [address] [id number] [address] [place] [address], [place] [address] Apr, [facility] [address] [id number] [address] [place] [address], [place] [address] Apr, [facility] [address] [id number] [address] [place] [address], [place] [address] Apr, [facility] [address] [id number] [address] [place] [address], [place] [address] Apr, [facility] [address] [id number] [address] [place] [address], [place] [address] 31 Mar, 2014 [facility] [address] [id number] [address] [place] [address], [place] [address] Mar, [facility] [address] [id number] [address] [place] [address], [place] [address] Mar, [facility] [address] [id number] [address] [place] [address], [place] [address] Mar, [facility] [address] [id number] [address] [place] [address], [place] [address] Mar, [facility] [address] [id number] [address] [place] [address], [place] [address] Mar, [facility] [address] [id number] [address] [place] [address], [place] [address] 15 Mar, 2014 [facility] [address] [id number] [address] [place] [address], [place] [address] Mar, [facility] [address] [id number] [address] [place] [address], [place] [address] Mar, [facility] [address] [id number] [address] [place] [address], [place] [address] Mar, [facility] [address] [id number] [address] [place] [address], [place] [address] Mar, [facility] [address] [id number] [address] [place] [address], [place] [address] Mar, [facility] [address] [id number] [address] [place] [address], [place] [address] Mar, [facility] [address] [id number] [address] [place] [address], [place] [address] Feb, [facility] [address] [id number] [address] [place] [address], [place] [address] Feb, [facility] [address] [id number] [address] [place] [address], [place] [address] Feb, [facility] [address] [id number] [address] [place] [address], [place] [address] Feb, [facility] [address] [id number] [address] [place] [address], [place] [address] Feb, [facility] [address] [id number] [address] [place] [address], [place] [address] Feb, [facility] [address] [id number] [address] [place] [address], [place] [address] Feb, [facility] [address] [id number] [address] [place] [address], [place] [address] Feb, [facility] [address] [id number] [address] [place] [address], [place] [address] Jan, [facility] [address] [id number] [address] [place] [address], [place] [address] Jan, [facility] [address] [id number] [address] [place] [address], [place] [address] Jan, [facility] [address] [id number] [address] [place] [address], [place] [address] Jan, [facility] [address] [id number] [address] [place] [address], [place] [address] Jan, [facility] [address] [id number] [address] [place] [address], [place] [address] Jan, [facility] [address] [id number] [address] [place] [address] Jan, [facility] [address] [id number] [address] [place] [address], [place] [address] Jan, [facility] [address] [id number] [address] [place] [address], [place] [address] Jan, [facility] [address] [id number] [address] [place] [address], [place] [address] 30 Dec, 2013 [facility] [address] [id number] [address] [place] [address], [place] [address] 30 Dec, 2013 [facility] [address] [id number] [facility] [place] [address] 26 Dec, 2013 [facility] [address] [id number] [facility] [place] [address] 26 Dec, 2013 [facility] [address] [id number] [address] [place] [address], [place] [id number] 16 Dec, 2013 [facility] [address] [id number] [address] [place] [address], [place] [id number] 16 Dec, 2013 [facility] [address] [id number] [address] [place] [address], [place] [id number] 08 Dec, 2013 [facility] [address] [id number] [address] [place] [address], [place] [id number] 08 Dec, 2013 [facility] [address] [id number] [address] [place] [address], [place] [id number] Dec, 2013 [facility] [address] [id number] [address] [place] [address], [place] [id number] Dec, 2013 [facility] [address] [id number] [address] [place] [address], [place] [id number] Nov, [facility] [address] [id number] [address] [place] [address], [place] [id number] Nov, [facility] [address] [id number] [address] [place] [address], [place] [id number] Nov, [facility] [address] [id number] [address] [place] [address], [place] [id number] Nov, [facility] [address] [id number] [address] [place] [address], [place] [id number] Nov, [facility] [address] [id number] [address] [place] [address], [place] [id number] Nov, [facility] [address] [id number] [address] [place] [address], [place] [id number] Nov, [facility] [address] [id number] [address] [place] [address] Nov, [facility] [address] [id number] [address] [place] [address] Nov, [facility] [address] [id number] [address] [place] [address] Nov, [facility] [address] [id number] [address] [place] [address], [place] [id number] Nov, [facility] [address] [id number] [address] [place] [address], [place] [id number] Nov, [facility] [address] [id number] [address] [place] [address], [place] [id number] Nov, [facility] [address] [id number] [address] [place] [address], [place] [id number] Oct, [facility] [address] [id number] [address] [place] [address], [place] [id number] Oct, [facility] [address] [address] [id number] [address] [place] [address], [place] [address] Oct, [facility] [address] [id number] [address] [place] [address], [place] [address] Oct, [facility] [address] [id number] [address] [place] [address], [place] [address] Oct, [facility] [address] [id number] [address] [place] [address], [place] [address] Oct, [facility] [address] [id number] [address] [place] [address], [place] [address] Sep, [facility] [address] [id number] [address] [place] [address], [place] [address] Sep, [facility] [address] [id number] [address] [place] [address], [place] [address] Sep, [facility] [address] [id number] [address] [place] [address], [place] [address] Sep, [facility] [address] [id number] [facility] [place] [address] Sep, [facility] [address] [id number] [address] [place] [address], [place] [address] Sep, [facility] [address] [id number] [address] [place] [address], [place] [address] Sep, [facility] [address] [id number] [address] [place] [address], [place] [address] Sep, [facility] [address] [id number] [address] [place] [address], [place] [address] Sep, [facility] [address] [id number] [address] [place] [address], [place] [address] Sep, [facility] [address] [id number] [address] [place] [address], [place] [address] Sep, [facility] [address] [id number] [address] [place] [address], [place] [address] Sep, [facility] [address] [id number] [address] [place] [address], [place] [address] August, [facility] [address] [id number] [address] [place] [address], [place] [address] August, [facility] [address] [id number] [address] [place] [address], [place] [address] Jul, [facility] [address] [id number] [address] [place] [address], [place] [address] Jul, [facility] [address] [id number] [address] [place] [address], [place] [address] Jul, [facility] [address] [id number] [address] [place] [address], [place] [address] Jul, [facility] [address] [id number] [address] [place] [address], [place] [address] Jul, [facility] [address] [id number] [facility] [place] [address] 22 Jul, 2013 [facility] [address] [id number] [facility] [place] [address] 16 Jul, 2013 [facility] [address] [id number] [facility] [place] [address] 16 Jul, 2013 [facility] [address] [id number] [address] [place] [address], [place] [address] Jul, [facility] [address] [id number] [address] [place] [address], [place] [address] Jul, [facility] [address] [id number] [address] [place] [address], [place] [address] Jul, [facility] [address] [id number] [address] [place] [address], [place] [address] Jun, [facility] [address] [id number] [address] [place] [address], [place] [address] Jun, [facility] [address] [id number] [address] [place] [address], [place] [address] Jun, [facility] [address] [id number] [address] [place] [address], [place] [address] Jun, [facility] [address] [id number] [address] [place] [address], [place] [address] Jun, [facility] [address] [id number] [address] [place] [address], [place] [address] Jun, [facility] [address] [id number] [address] [place] [address], [place] [address] Jun, [facility] [address] [id number] [address] [place] [address], [place] [address] Jun, [facility] [address] [id number] [address] [place] [address], [place] [address] May, [facility] [address] [id number] [address] [place] [address], [place] [address] May, [facility] [address] [id number] [address] [place] [address], [place] [address] May, [facility] [address] [id number] [address] [place] [address], [place] [address] May, [facility] [address] [id number] [address] [place] [address], [place] [address] May, [facility] [address] [id number] [address] [place] [address], [place] [address] May, [facility] [address] [id number] [address] [place] [address], [place] [address] May, [facility] [address] [id number] [address] [place] [address], [place] [address] May, [facility] [address] [id number] [address] [place] [address], [place] [address] May, [facility] [address] [id number] [address] [place] [address], [place] [address] May, [facility] [address] [id number] [address] [place] [address], [place] [address] May, [facility] [address] [id number] [address] [place] [address], [place] [address] May, [facility] [address] [id number] [address] [place] [address], [place] [address] May, [facility] [address] [id number] [address] [place] [address], [place] [address] Apr, [facility] [address] [id number] [address] [place] [address], [place] [address] Apr, [facility] [address] [id number] [address] [place] [address], [place] [address] Apr, [facility] [address] [id number] [address] [place] [address], [place] [address] Apr, [facility] [address] [id number] [address] [place] [address], [place] [address] Apr, [facility] [address] [id number] [address] [place] [address], [place] [address] Apr, [facility] [address] [id number] [address] [place] [address], [place] [address] Apr, [facility] [address] [id number] [address] [place] [address], [place] [address] Apr, [facility] [address] [id number] [address] [place] [address], [place] [address] Apr, [facility] [address] [id number] [address] [place] [address], [place] [address] Apr, [facility] [address] [id number] [address] [place] [address], [place] [address] Apr, [facility] [address] [id number] [address] [place] [address], [place] [address] Apr, [facility] [address] [id number] [address] [place] [address], [place] [address] Apr, [facility] [address] [id number] [address] [place] [address], [place] [address] Apr, [facility] [address] [id number] [address] [place] [address], [place] [address] Apr, [facility] [address] [id number] [address] [place] [address], [place] [address] Mar, [facility] [address] [id number] [address] [place] [address], [place] [address] Mar, [facility] [address] [id number] [address] [place] [address], [place] [address] Mar, [facility] [address] [id number] [address] [place] [address], [place] [address] Mar, [facility] [address] [id number] [address] [place] [address], [place] [address] Mar, [facility] [address] [id number] [address] [place] [address], [place] [address] Mar, [facility] [address] [id number] [address] [place] [address], [place] [address] 17 Mar, 2013 [facility] [address] [id number] [address] [place] [address], [place] [address] 17 Mar, 2013 [facility] [address] [id number] [address] [place] [address], [place] [address] Mar, [facility] [address] [id number] [address] [place] [address], [place] [address] Mar, [facility] [address] [id number] [address] [place] [address], [place] [address] Mar, [facility] [address] [id number] [address] [place] [address], [place] [address] Mar, [facility] [address] [id number] [address] [place] [address], [place] [address] Feb, [facility] [address] [id number] [address] [place] [address], [place] [address] Feb, [facility] [address] [id number] [address] [place] [address], [place] [address] Feb, [facility] [address] [id number] [address] [place] [address], [place] [address] Feb, [facility] [address] [id number] [address] [place] [id number] Feb, [facility] [address] [id number] [address] [place] [address], [place] [address] Feb, [facility] [address] [id number] [address] [place] [address], [place] [address] Feb, [facility] [address] [id number] [address] [place] [address], [place] [address] Feb, [facility] [address] [id number] [address] [place] [address], [place] [address] Jan, [facility] [address] [id number] [address] [place] [address], [place] [address] Jan, [facility] [address] [id number] [address] [place] [address], [place] [address] Jan, [facility] [address] [id number] [address] [place] [address], [place] [address] Jan, [facility] [address] [id number] [address] [place] [address], [place] [address] Jan, [facility] [address] [id number] [address] [place] [address], [place] [address] Jan, [facility] [address] [id number] [address] [place] [address], [place] [address] Jan, [facility] [address] [id number] [address] [place] [address], [place] [address] Dec, [facility] [address] [id number] [address] [place] [address], [place] [address] Dec, [facility] [address] [id number] [address] [place] [address], [place] [address] Dec, [facility] [address] [id number] [address] [place] [address], [place] [address] Dec, [facility] [address] [id number] [address] [place] [address], [place] [address] Dec, [facility] [address] [id number] [address] [place] [address], [place] [address] Nov, [facility] [address] [id number] [address] [place] [address], [place] [address] Nov, [facility] [address] [id number] [address] [place] [address], [place] [address] Nov, [facility] [address] [id number] [address] [place] [address], [place] [address] Nov, [facility] [address] [id number] [facility] [place] [address] Nov, [facility] [address] [id number] [address] [place] [address], [place] [address] Nov, [facility] [address] [id number] [address] [place] [address], [place] [address] Nov, [facility] [address] [id number] [address] [place] [address], [place] [address] Oct, [facility] [address] [id number] [address] [place] [address], [place] [address] Oct, [facility] [address] [id number] [address] [place] [address], [place] [address] Oct, [facility] [address] [id number] [address] [place] [address], [place] [address] Oct, [facility] [address] [id number] [address] [place] [address], [place] [address] Oct, [facility] [address] [id number] [address] [place] [address], [place] [id number] Oct, [facility] [address] [id number] [address] [place] [address], [place] [address] Oct, [facility] [address] [id number] [address] [place] [address], [place] [address] Oct, [facility] [address] [id number] [address] [place] [address], [place] [address] Sep, [facility] [address] [id number] [address] [place] [address], [place] [address] Sep, [facility] [address] [id number] [address] [place] [address], [place] [address] Sep, [facility] [address] [id number] [address] [place] [address], [place] [address] Sep, [facility] [address] [id number] [address] [place] [address], [place] [address] Sep, [facility] [address] [id number] [address] [place] [address], [place] [address] Sep, [facility] [address] [id number] [address] [place] [address], [place] [address] August, [facility] [address] [id number] [address] [place] [address], [place] [address] August, [facility] [address] [id number] [address] [place] [address], [place] [address] August, [facility] [address] [id number] [address] [place] [address], [place] [address] August, [facility] [address] [id number] [address] [place] [address], [place] [address] August, [facility] [address] [id number] [address] [place] [address], [place] [address] Jul, [facility] [address] [id number] [address] [place] [address], [place] [address] Jul, [facility] [address] [id number] [address] [place] [address], [place] [address] 24 Jul, 2012 [facility] [address] [id number] [address] [place] [address], [place] [address] Jul, [facility] [address] [id number] [address] [place] [address], [place] [address] Jul, [facility] [address] [id number] [address] [place] [address], [place] [address] 05 Jul, 2012 [facility] [address] [id number] [address] [place] [address], [place] [address] 14 Jun, 2012 [facility] [address] [id number] [address] [place] [address], [place] [address] 13 Jun, 2012 [facility] [address] [id number] [address] [place] [address], [place] [id number] 07 Jun, 2012 [facility] [address] [id number] [address] [place] [address], [place] [address] 07 Jun, 2012 [facility] [address] [id number] [address] [place] [address], [place] [address] 05 Jun, 2012 [facility] [address] [id number] [address] [place] [address], [place] [address] 19 May, 2012 [facility] [address] [id number] [address] [place] [address], [place] [address] 13 May, 2012 [facility] [address] [id number] [address] [place] [address], [place] [address] May, [facility] [address] [id number] [address] [place] [address], [place] [address] 23 Apr, 2012 [facility] [address] [id number] [address] [place] [address], [place] [address] 14 Apr, 2012 [facility] [address] [id number] [address] [place] [address], [place] [address] Mar, [facility] [address] [id number] [address] [place] [address], [place] [address] Mar, [facility] [address] [id number] [address] [place] [address], [place] [address] Mar, [facility] [address] [id number] [address] [place] [address], [place] [address] 17 Mar, 2012 [facility] [address] [id number] [address] [place] [address], [place] [address] 17 Mar, 2012 [facility] [address] [id number] [address] [place] [address], [place] [address] 13 Mar, 2012 [facility] [address] [id number] [address] [place] [address], [place] [address] Feb, [facility] [address] [id number] [address] [place] [address], [place] [address] Feb, [facility] [address] [id number] [address] [place] [address], [place] [address] Feb, [facility] [address] [id number] [address] [place] [address], [place] [address] 29 Jan, 2012 [facility] [address] [id number] [address] [place] [address], [place] [address] 29 Jan, 2012 [facility] [address] [id number] [address] [place] [address], [place] [address] Jan, [facility] [address] [id number] [address] [place] [address], [place] [address] Jan, [facility] [address] [id number] [address] [place] [address], [place] [id number] 24 Jan, 2012 [facility] [address] [id number] [address] [place] [address], [place] [address] Jan, [facility] [address] [id number] [address] [place] [address], [place] [address] Jan, [facility] [address] [id number] [address] [place] [address], [place] [id number] 16 Jan, 2012 [facility] [address] [id number] [address] [place] [address], [place] [id number] 16 Jan, 2012 [facility] [address] [id number] [address] [place] [id number] 18 Dec, 2011 [facility] [address] [id number] [address] [place] [address], [place] [address] 13 Dec, 2011 [facility] [address] [id number] [address] [place] [id number] 11 Dec, 2011 [facility] [address] [id number] [address] [place] [address], [place] [id number] 22 Nov, 2011 [facility] [address] [id number] [address] [place] [address], [place] [address] 17 Nov, 2011 [facility] [address] [id number] [address] [place] [address], [place] [id number] 16 Nov, 2011 [facility] [address] [id number] [address] [place] [address], [place] [address] 16 Oct, 2011 [facility] [address] [id number] [address] [place] [address], [place] [id number] Oct, [facility] [address] [id number] [address] [place] [address], [place] [id number] Sep, [facility] [address] [id number] [address] [place] [address], [place] [id number] Sep, [facility] [address] [id number] [address] [place] [address], [place] [id number] Sep, [facility] [address] [id number] [address] [place] [address], [place] [id number] Sep, [facility] [address] [id number] [address] [place] [address], [place] [id number] Sep, [facility] [address] [id number] [address] [place] [address], [place] [id number] August, [facility] [address] [id number] [address] [place] [address], [place] [id number] August, [facility] [address] [id number] [address] [place] [address], [place] [address] August, [facility] [address] [id number] [address] [place] [address], [place] [id number] August, [facility] [address] [id number] [address] [place] [address], [place] [id number] August, [facility] [address] [id number] [address] [place] [address], [place] [id number] August, [facility] [address] [id number] [address] [place] [address], [place] [id number] August, [facility] [address] [id number] [address] [place] [address], [place] [id number] August, [facility] [address] [id number] [address] [place] [address], [place] [id number] August, [facility] [address] [id number] [address] [place] [address], [place] [id number] 27 Jul, 2011 [facility] [address] [id number] [address] [place] [address], [place] [id number] 19 Jul, 2011 [facility] [address] [id number] [address] [place] [address], [place] [id number] 10 Jul, 2011 [facility] [address] [id number] [address] [place] [address], [place] [id number] 04 Jul, 2011 [facility] [address] [id number] [address] [place] [address], [place] [id number] 27 Jun, 2011 [facility] [address] [id number] [address] [place] [address], [place] [id number] 13 Jun, 2011 [facility] [address] [id number] [address] [place] [address], [place] [id number] 13 Jun, 2011 [facility] [address] [id number] [address] [place] [address], [place] [id number] 27 May, 2011 [facility] [address] [id number] [address] [place] [address], [place] [id number] 24 May, 2011 [facility] [address] [id number] [address] [place] [address], [place] [id number] 20 May, 2011 [facility] [address] [id number] [address] [place] [address], [place] [id number] 16 May, 2011 [facility] [address] [id number] [address] [place] [address], [place] [id number] 15 May, 2011 [facility] [address] [id number] [address] [place] [address], [place] [id number] 14 May, 2011 [facility] [address] [id number] [address] [place] [address], [place] [id number] 10 May, 2011 [facility] [address] [id number] [address] [place] [address], [place] [id number] 09 May, 2011 [facility] [address] [id number] [address] [place] [address], [place] [id number] 02 May, 2011 [facility] [address] [id number] [address] [place] [address], [place] [id number] Apr, [facility] [address] [id number] [address] [place] [address], [place] [id number] Apr, [facility] [address] [id number] [address] [place] [address], [place] [id number] Apr, [facility] [address] [id number] [address] [place] [address], [place] [address] Apr, [facility] [address] [id number] [address] [place] [address], [place] [address] Apr, [facility] [address] [id number] [address] [place] [address], [place] [address] Apr, [facility] [address] [id number] [address] [place] [address], [place] [id number] Apr, [facility] [address] [id number] [address] [place] [address], [place] [id number] Apr, [facility] [address] [id number] [address] [place] [address], [place] [id number] Apr, [facility] [address] [id number] [address] [place] [address], [place] [id number] Apr, [facility] [address] [id number] [address] [place] [address], [place] [id number] Apr, [facility] [address] [id number] [address] [place] [address], [place] [id number] Mar, [facility] [address] [id number] [address] [place] [address], [place] [id number] Mar, [facility] [address] [id number] [address] [place] [address], [place] [id number] Mar, [facility] [address] [id number] [address] [place] [address], [place] [id number] 05 Mar, 2011 [facility] [address] [facility] [id number] [address] [place] [id number] Feb, [facility] [address] [facility] [id number] [address] [place] [id number] Feb, [facility] [address] [facility] [id number] [address] [place] [id number] Jan, [facility] [address] [facility] [id number] [address] [place] [id number] Nov, IMMUNIZATIONS No Known Immunizations SOCIAL HISTORY [...] laser treatment for glaucoma Hospitalization History [facility] [place]- Right side and back pain related to fall, hurts to breathe (ED at 7 pm) 06/07/2017 [facility] [place] An[facility] ( went to ED at 1200) 06/07/2017 Hospitalization History COPD exacerbation - Gerald Pizano 2017 Hospitalization History Blood clot, port placement - Gerald Piznao 09/2017
--- OUTSIDE RECORDS SUMMARY | 2019-09-01 14:23 | XMS REPORT ---
Author Author Sophia SEGURA Organization [facility] Address [address] [place] [address] Care Team Providers Care Healthcare Administrative Assistant Name Role Phone HERMINIA ESGURA Unavailable PROBLEMS Type Condition ICD9-CM Code [id number] Code Onset Dates Condition S tatus SNOMED Code Problem Proteinuria R80.9 Active 12637702 Problem Essential hypertension I10 Active 10188774 Problem Anxiety F41.9 Active 38869173 Problem Type 2 diabetes mellitus without complication E11. 9 Active 50944301 Problem Hyperlipidemia, unspecified hyperlipidemia E78.5 Active 97795165 Problem Major depressive disorder, recurrent episode, un specified severity F33.9 Active 52998636 Problem Sciatica, unspecified laterality M54.30 Active 19206843 Problem Acute cystitis with hematuria N30.01 Active 29090781 Problem Chronic pain syndrome G89.4 Active 583000988 Problem Exacerbation of systemic lupus M32.9 Active 81217273 Problem Generalized abdominal pain R10.84 Act sree 293632737 Problem Carpal tunnel syndrome, right upper limb G56.01 Active 21080273 Problem History of small bowel obstruction Z87.19 Active 686054467 Problem History of pulmonary embolism Z86.711 Active 230365826 Problem Presence of IVC filter Z95.828 Active 616342910 Problem Port catheter in place Z95.828 Active 730740594 Problem Gastroesophageal reflux disease, esophagitis pre sence not specified K21.9 Active 289549565 Problem Chronic pancreatitis, unspecified pancreatitis type K86.1 Active 142092254 Problem Hypothyroidism, unspecified type E03.9 Active 90755050 Problem Vitamin D deficiency E55.9 Active 85201098 Problem Nausea R11.0 Active 925900898 Problem Pneumonia due to infectious organism, unspecified laterality, unspecified part of lung J18.9 Active 312 175074 Problem Gastroesophageal reflux disease without esophagitis K21.9 Active 047519800 Problem Violation of controlled substance agreement Z91.14 Active 233399862 Problem Obstructive sleep apnea G47.33 Active 50035003 Problem Hypertension, benign I10 Active 95442677 Problem Venous insufficiency I87.2 Active 81477436 Problem Chronic obstructive pulmonary disease, unspecified COPD ty pe J44.9 Active 22473497 Problem Tobacco abuse counseling Z71.6 Activ e 22839723 Problem 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 A ctive 819440980 Problem Opiate dependence, continuous F11.20 Active 724009453 Problem Cannabis abuse with physiological dependence F12.1 0 Active 91464591 ALLERGIES No Information ENCOUNTERS Encounter Location Date Diagnosis [facility] [address] [place] [address] Jul, [facility] [address] [address] 04 May, 2019 [facility] [address] [address] Apr, Tobacco abuse Z72.0 ; Hypert ension, benign I10 and Tobacco abuse counseling Z71.6 [facility] [address] [place] [id number] [address] [place] [address] Sep, [facility] [address] [address] Sep, [facility] [address] [address] Sep, Essential hypertension I10 [facility] [address] [place] [address] Sep, [facility] [address] [place] [id number] [address] [place] [address] Sep, [facility] [address] [id number] [address] [place] [address] Sep, Neck mass R22.1 [facility] [address] [id number] [address] [place] [address] August, Neck mass R22.1 [facility] [address] [facility] [id number] [address] [place] [address] Feb, Left foot pain M79.672 [facility] [address] [facility] [id number] [address] [place] [address] Jun, Chronic pain syndrome G89.4 [facility] [id number] [place] [id number] May, [facility] [address] [facility] [id number] [address] [place] [address] May, [facility] [address] [facility] [id number] [address] [place] [address] May, Chronic pain syndrome G89.4 [facility] [address] [facility] [id number] [address] [place] [address] 13 May, 2017 [facility] [address] [facility] [id number] [address] [place] [address] 10 May, 2017 Encounter for immunization Z 23 and Laceration of left index finger without foreign body without damage to nail, initial encounter S61.211A [facility] [address] [facility] [id number] [address] [place] [address] 09 May, 2017 Chronic pain syndrome G89.4 [facility] [address] [facility] [id number] [address] [place] [address] May, [facility] [address] [facility] [id number] [address] [place] [address] Apr, Cannabis abuse with physiolo gical dependence F12.10 ; Violation of controlled substance agreement Z91.14 and Opiate dependence, continuous F11.20 [facility] [address] [facility] [id number] [address] [place] [address] Apr, Type 2 diabetes mellitus wit hout complication E11.9 [facility] [address] [facility] [id number] [address] [place] [address] Apr, [facility] [address] [facility] [id number] [address] [place] [address] Apr, Chronic pain syndrome G89.4 [facility] [address] [facility] [id number] [address] [place] [address] Apr, Viral syndrome B34.9 [facility] [address] [facility] [id number] [address] [place] [address] Apr, [facility] [address] [facility] [id number] [address] [place] [address] Mar, Chronic pain syndrome G89.4 [facility] [address] [facility] [id number] [address] [place] [address] Mar, [facility] [address] [facility] [id number] [address] [place] [address] Mar, [facility] [address] [facility] [id number] [address] [place] [address] Feb, Essential hypertension I10 ; Chronic pain syndrome G89.4 ; Hyperlipidemia, unspecified hyperlipidemia E78.5 ; 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 and Encounter for immunization Z23 [facility] [address] [facility] [id number] [address] [place] [address] Feb, Chronic pain syndrome G89.4 [facility] [address] [facility] [id number] [address] [place] [address] Jan, Chronic pain syndrome G89.4 [facility] [address] [facility] [id number] [address] [place] [address] Jan, [facility] [address] [facility] [id number] [address] [place] [address] Jan, Bronchitis J40 ; Port cathet er in place Z95.828 and Chronic pain syndrome G89.4 [facility] [id number] [place] [id number] Jan, [facility] [address] [facility] [id number] [address] [place] [address] Dec, Chronic pain syndrome G89.4 [facility] [address] [facility] [id number] [address] [place] [address] Dec, Chronic pain syndrome G89.4 [facility] [address] [id number] [address] [place] [address] Dec, [facility] [address] [id number] [address] [place] [address] Nov, [facility] [address] [id number] [address] [place] [address] Nov, Chronic pain syndrome G89.4 [facility] [address] [id number] [address] [place] [address] Oct, Chronic pain syndrome G89.4 [facility] [address] [id number] [address] [place] [address] Oct, [facility] [address] [id number] [address] [place] [address] Sep, Chronic pain syndrome G89.4 [facility] [address] [id number] [address] [place] [address] Sep, Exacerbation of systemic lup us M32.9 [facility] [address] [id number] [address] [place] [address] Sep, [facility] [address] [id number] [address] [place] [address] Sep, [facility] [address] [id number] [address] [place] [address] Sep, Nausea R11.0 [facility] [address] [id number] [address] [place] [address] August, Chronic pain syndrome G89.4 [facility] [address] [id number] [address] [place] [address] August, [facility] [address] [id number] [address] [place] [address] August, Chronic pain syndrome G89.4 [facility] [address] [address] Jul, Pneumonia due to infectious organism, unspecified laterality, unspecified part of lung J18.9 and Tobacco abuse counseling Z71.6 [place] [address] [address] Jul, Chronic pain syndrome G89.4 [place] [address] [address] Jun, Essential hypertension I10 [place] [address] [address] Jun, Pneumonia due to infectious organism, unspecified laterality, unspecified part of lung J18.9 [place] [address] [address] Jun, Chronic pain syndrome G89.4 [place] [address] [address] May, Essential hypertension I10 ; Type 2 [...] and Gastroesophageal reflux disease without esophagitis K21.9 [place] [address] [address] Apr, [address] [address] Apr, Pneumonia due to infectious organism, unspecified laterality, unspecified part of lung J18.9 and Nausea R11.0 [place] [address] [address] Apr, Essential hypertension I10 ; Chronic pain syndrome G89.4 ; Type 2 diabetes mellitus without complication E11.9 ; Hyperlipidemia, unspecified hyperlipidemia E78.5 ; Major depressive disorder, recurrent episode, unspecified severity F33.9 ; Sciatica, unspecified laterality M54.30 ; Chronic obstructive pulmonary disease, unspecified COPD type J44.9 ; Pneumonia due to infectious organism, unspecified laterality, unspecified part of lung J18.9 and Nausea R11.0 [facility] [address] [place] [id number] [address] [place] [address] Mar, [place] [id number] [address] Mar, [place] [address] [address] Mar, [place] [address] [address] Mar, Anxiety F41.9 and Major depr essive disorder, recurrent episode, unspecified severity F33.9 [place] [address] [place] [id number] [place] [address] Mar, [place] [address] [address] Mar, [place] [address] [address] Mar, Generalized abdominal pain R 10.84 ; Acute cystitis with hematuria N30.01 and Essential hypertension I10 [facility] [address] [place] [address] Mar, Sore throat J02.9 and Exacer bation of systemic lupus M32.9 [place] [address] [place] [id number] [place] [address] Feb, Type 2 diabetes mellitus wit hout [...] reflux disease, esophagitis presence not specified K21.9 [facility] [address] [facility] [id number] [address] [place] [address] Feb, [place] [address] [place] [id number] [address] [place] [address] Jan, [facility] [address] [place] [place] [id number] [address] [place] [address] Jan, Right arm pain M79.601 [address] train of right wrist, initial encounter S66.911A [place] [address] [place] [id number] [address] [place] [address] Jan, [facility] [address] [place] [address] 30 Dec, 2015 Generalized abdominal pain R 10.84 [place] [address] [place] [id number] [address] [place] [address] Dec, Adenopathy R59.1 [place] [address] [place] [id number] [address] [place] [address] Dec, Bronchitis J40 [place] [address] [place] [id number] [address] [place] [address] 14 Dec, 2015 [place] [address] [place] [id number] [address] [place] [address] Dec, Essential hypertension I10 [place] [address] [facility] [id number] [address] [place] [address] Nov, [place] [address] [place] [id number] [address] [place] [address] Nov, [place] [address] [facility] [id number] [address] [place] [address] Nov, Essential hypertension I10 ; Hyperlipidemia, unspecified [...] Type 2 diabetes mellitus without complication E11.9 [place] [address] [address] Nov, [place] [address] [address] Oct, Type 2 diabetes mellitus wit hout complication E11.9 ; Essential hypertension I10 ; Other viral warts B07.8 ; [place] or callus L84 and Hyperlipidemia, unspecified hyperlipidemia E78.5 [place] [address] [place] [id number] [place] [address] Sep, [place] [address] [place] [id number] [place] [address] Sep, [place] [address] [place] [id number] [place] [address] Jun, [place] [address] [place] [id number] [address] [place] [address] Jun, [place] [address] [place] [id number] [address] [place] [address] May, [place] [address] [place] [id number] [place] [address] Apr, [place] [address] [place] [id number] [address] [place] [address] Feb, [place] [address] [address] Feb, COPD exacerbation J44.1 and Acute upper respiratory infection J06.9 [facility] [address] [id number] [address] [place] [address] Feb, [facility] [address] [id number] [address] [place] [address] Feb, [facility] [address] [id number] [address] [place] [address] Feb, [facility] [address] [id number] [address] [place] [address] Feb, [facility] [address] [id number] [address] [place] [address] Jan, Left hip pain M25.552 [facility] [address] [id number] [address] [place] [address] Jan, Essential hypertension I10 ; Chronic pain syndrome G89.4 ; Type 2 diabetes mellitus without complication E11.9 and Hyperlipidemia, unspecified hyperlipidemia E78.5 [facility] [address] [id number] [address] [place] [address] Jul, [facility] [address] [id number] [address] [place] [address] Jul, [facility] [address] [id number] [address] [place] [address] Jul, [facility] [address] [id number] [address] [place] [address] Jun, [facility] [address] [id number] [address] [place] [address] Jun, [facility] [address] [id number] [address] [place] [address] Jun, [facility] [address] [id number] [address] [place] [address] Jun, [facility] [address] [id number] [address] [place] [address] Jun, [facility] [address] [id number] [address] [place] [address], [place] [address] Jun, [facility] [address] [id number] [address] [place] [address], [place] [address] Jun, [facility] [address] [id number] [address] [place] [address], [place] [address] Jun, [facility] [address] [id number] [address] [place] [address], [place] [address] Jun, [facility] [address] [id number] [address] [place] [address], [place] [address] Jun, [facility] [address] [id number] [address] [place] [address], [place] [address] Jun, [facility] [address] [id number] [address] [place] [address], [place] [address] Jun, [facility] [address] [id number] [address] [place] [address], [place] [address] Apr, [facility] [address] [id number] [address] [place] [address], [place] [address] Apr, [facility] [address] [id number] [address] [place] [address], [place] [address] Apr, [facility] [address] [id number] [address] [place] [address], [place] [address] Apr, [facility] [address] [id number] [address] [place] [address], [place] [address] Apr, [facility] [address] [id number] [address] [place] [address], [place] [address] Apr, [facility] [address] [id number] [address] [place] [address], [place] [address] Apr, [facility] [address] [id number] [address] [place] [address], [place] [address] Apr, [facility] [address] [id number] [address] [place] [address], [place] [address] 31 Mar, 2014 [facility] [address] [id number] [address] [place] [address], [place] [address] Mar, [facility] [address] [id number] [address] [place] [address], [place] [address] Mar, [facility] [address] [id number] [address] [place] [address], [place] [address] Mar, [facility] [address] [id number] [address] [place] [address], [place] [address] Mar, [facility] [address] [id number] [address] [place] [address], [place] [address] Mar, [facility] [address] [id number] [address] [place] [address], [place] [address] 15 Mar, 2014 [facility] [address] [id number] [address] [place] [address], [place] [address] Mar, [facility] [address] [id number] [address] [place] [address], [place] [address] Mar, [facility] [address] [id number] [address] [place] [address], [place] [address] Mar, [facility] [address] [id number] [address] [place] [address], [place] [address] Mar, [facility] [address] [id number] [address] [place] [address], [place] [address] Mar, [facility] [address] [id number] [address] [place] [address], [place] [address] Mar, [facility] [address] [id number] [address] [place] [address], [place] [address] Feb, [facility] [address] [id number] [address] [place] [address], [place] [address] Feb, [facility] [address] [id number] [address] [place] [address], [place] [address] Feb, [facility] [address] [id number] [address] [place] [address], [place] [address] Feb, [facility] [address] [id number] [address] [place] [address], [place] [address] Feb, [facility] [address] [id number] [address] [place] [address], [place] [address] Feb, [facility] [address] [id number] [address] [place] [address], [place] [address] Feb, [facility] [address] [id number] [address] [place] [address], [place] [address] Feb, [facility] [address] [id number] [address] [place] [address], [place] [address] Jan, [facility] [address] [id number] [address] [place] [address], [place] [address] Jan, [facility] [address] [id number] [address] [place] [address], [place] [address] Jan, [facility] [address] [id number] [address] [place] [address], [place] [address] Jan, [facility] [address] [id number] [address] [place] [address], [place] [address] Jan, [facility] [address] [id number] [address] [place] [address], [place] [address] Jan, [facility] [address] [id number] [address] [place] [address] Jan, [facility] [address] [id number] [address] [place] [address], [place] [address] Jan, [facility] [address] [id number] [address] [place] [address], [place] [address] Jan, [facility] [address] [id number] [address] [place] [address], [place] [address] 30 Dec, 2013 [facility] [address] [id number] [address] [place] [address], [place] [address] 30 Dec, 2013 [facility] [address] [id number] [address] [place] [address] 26 Dec, 2013 [facility] [address] [id number] [address] [address] 26 Dec, 2013 [facility] [address] [id number] [address] [place] [address], [place] [address] 16 Dec, 2013 [facility] [address] [id number] [address] [place] [address], [place] [address] 16 Dec, 2013 [facility] [address] [id number] [address] [place] [address], [place] [address] 08 Dec, 2013 [facility] [address] [id number] [address] [place] [address], [place] [address] 08 Dec, 2013 [facility] [address] [id number] [address] [place] [address], [place] [address] Dec, 2013 [facility] [address] [id number] [address] [place] [address], [place] [address] Dec, 2013 [facility] [address] [id number] [address] [place] [address], [place] [address] Nov, [facility] [address] [id number] [address] [place] [address], [place] [address] Nov, [facility] [address] [id number] [address] [place] [address], [place] [address] Nov, [facility] [address] [id number] [address] [place] [address], [place] [address] Nov, [facility] [address] [id number] [address] [place] [address], [place] [address] Nov, [facility] [address] [id number] [address] [place] [address], [place] [address] Nov, [facility] [address] [id number] [address] [place] [address], [place] [address] Nov, [facility] [address] [id number] [address] [address] Nov, [facility] [address] [id number] [address] [address] Nov, [facility] [address] [id number] [address] [address] Nov, [facility] [address] [id number] [address] [place] [address], [place] [address] Nov, [facility] [address] [id number] [address] [place] [address], [place] [address] Nov, [facility] [address] [id number] [address] [place] [address], [place] [address] Nov, [facility] [address] [id number] [address] [place] [address], [place] [address] Oct, [facility] [address] [id number] [address] [place] [address], [place] [address] Oct, [facility] [address] [id number] [address] [place] [address], [place] [address] Oct, [facility] [address] [id number] [address] [place] [address], [place] [address] Oct, [facility] [address] [id number] [address] [place] [address], [place] [address] Oct, [facility] [address] [id number] [address] [place] [address], [place] [address] Oct, [facility] [address] [id number] [address] [place] [address], [place] [address] Sep, [facility] [address] [id number] [address] [place] [address], [place] [address] Sep, [facility] [address] [id number] [address] [place] [address], [place] [address] Sep, [facility] [address] [id number] [address] [place] [address], [place] [address] Sep, [facility] [address] [id number] [facility] [address] Sep, [facility] [address] [id number] [address] [place] [address], [place] [address] Sep, [facility] [address] [id number] [address] [place] [address], [place] [address] Sep, [facility] [address] [id number] [address] [place] [address], [place] [address] Sep, [facility] [address] [id number] [address] [place] [address], [place] [address] Sep, [facility] [address] [id number] [address] [place] [address], [place] [address] Sep, [facility] [address] [id number] [address] [place] [address], [place] [address] Sep, [facility] [address] [id number] [address] [place] [address], [place] [address] Sep, [facility] [address] [id number] [address] [place] [address], [place] [address] August, [facility] [address] [id number] [address] [place] [address], [place] [address] August, [facility] [address] [id number] [address] [place] [address], [place] [address] Jul, [facility] [address] [id number] [address] [place] [address], [place] [address] Jul, [facility] [address] [id number] [address] [place] [address], [place] [address] Jul, [facility] [address] [id number] [address] [place] [address], [place] [address] Jul, [facility] [address] [id number] [address] [place] [address], [place] [address] Jul, [facility] [address] [id number] [address] [address] 22 Jul, 2013 [facility] [address] [id number] [facility] [address] 16 Jul, 2013 [facility] [address] [id number] [address] [address] 16 Jul, 2013 [facility] [address] [id number] [address] [place] [address], [place] [address] Jul, [facility] [address] [id number] [address] [place] [address], [place] [address] Jul, [facility] [address] [id number] [address] [place] [address], [place] [address] Jul, [facility] [address] [id number] [address] [place] [address], [place] [address] Jun, [facility] [address] [id number] [address] [place] [address], [place] [address] Jun, [facility] [address] [id number] [address] [place] [address], [place] [address] Jun, [facility] [address] [id number] [address] [place] [address], [place] [address] Jun, [facility] [address] [id number] [address] [place] [address], [place] [address] Jun, [facility] [address] [id number] [address] [place] [address], [place] [address] Jun, [facility] [address] [id number] [address] [place] [address], [place] [address] Jun, [facility] [address] [id number] [address] [place] [address], [place] [address] Jun, [facility] [address] [id number] [address] [place] [address], [place] [address] May, [facility] [address] [id number] [address] [place] [address], [place] [address] May, [facility] [address] [id number] [address] [place] [address], [place] [address] May, [facility] [address] [id number] [address] [place] [address], [place] [address] May, [facility] [address] [id number] [address] [place] [address], [place] [address] May, [facility] [address] [id number] [address] [place] [address], [place] [address] May, [facility] [address] [id number] [address] [place] [address], [place] [address] May, [facility] [address] [id number] [address] [place] [address], [place] [address] May, [facility] [address] [id number] [address] [place] [address], [place] [address] May, [facility] [address] [id number] [address] [place] [address], [place] [address] May, [facility] [address] [id number] [address] [place] [address], [place] [address] May, [facility] [address] [id number] [address] [place] [address], [place] [address] May, [facility] [address] [id number] [address] [place] [address], [place] [address] May, [facility] [address] [id number] [address] [place] [address], [place] [address] Apr, [facility] [address] [id number] [address] [place] [address], [place] [address] Apr, [facility] [address] [id number] [address] [place] [address], [place] [address] Apr, [facility] [address] [id number] [address] [place] [address], [place] [address] Apr, [facility] [address] [id number] [address] [place] [address], [place] [address] Apr, [facility] [address] [id number] [address] [place] [address], [place] [address] Apr, [facility] [address] [id number] [address] [place] [address], [place] [address] Apr, [facility] [address] [id number] [address] [place] [address], [place] [address] Apr, [facility] [address] [id number] [address] [place] [address], [place] [address] Apr, [facility] [address] [id number] [address] [place] [address], [place] [address] Apr, [facility] [address] [id number] [address] [place] [address], [place] [address] Apr, [facility] [address] [id number] [address] [place] [address], [place] [address] Apr, [facility] [address] [id number] [address] [place] [address], [place] [address] Apr, [facility] [address] [id number] [address] [place] [address], [place] [address] Apr, [facility] [address] [id number] [address] [place] [address], [place] [address] Apr, [facility] [address] [id number] [address] [place] [address], [place] [address] Mar, [facility] [address] [id number] [address] [place] [address], [place] [address] Mar, [facility] [address] [id number] [address] [place] [address], [place] [address] Mar, [facility] [address] [id number] [address] [place] [address], [place] [address] Mar, [facility] [address] [id number] [address] [place] [address], [place] [address] Mar, [facility] [address] [id number] [address] [place] [address], [place] [address] Mar, [facility] [address] [id number] [address] [place] [address], [place] [address] 17 Mar, 2013 [facility] [address] [id number] [address] [place] [address], [place] [address] 17 Mar, 2013 [facility] [address] [id number] [address] [place] [address], [place] [address] Mar, [facility] [address] [id number] [address] [place] [address], [place] [address] Mar, [facility] [address] [id number] [address] [place] [address], [place] [address] Mar, [facility] [address] [id number] [address] [place] [address], [place] [address] Mar, [facility] [address] [id number] [address] [place] [address], [place] [address] Feb, [facility] [address] [id number] [address] [place] [address], [place] [address] Feb, [facility] [address] [id number] [address] [place] [address], [place] [address] Feb, [facility] [address] [id number] [address] [place] [address], [place] [address] Feb, [facility] [address] [id number] [address] [place] [address] Feb, [facility] [address] [id number] [address] [place] [address], [place] [address] Feb, [facility] [address] [id number] [address] [place] [address], [place] [address] Feb, [facility] [address] [id number] [address] [place] [address], [place] [address] Feb, [facility] [address] [id number] [address] [place] [address], [place] [address] Jan, [facility] [address] [id number] [address] [place] [address], [place] [address] Jan, [facility] [address] [id number] [address] [place] [address], [place] [address] Jan, [facility] [address] [id number] [address] [place] [address], [place] [address] Jan, [facility] [address] [id number] [address] [place] [address], [place] [address] Jan, [facility] [address] [id number] [address] [place] [address], [place] [address] Jan, [facility] [address] [id number] [address] [place] [address], [place] [address] Jan, [facility] [address] [id number] [address] [place] [address], [place] [address] Dec, [facility] [address] [id number] [address] [place] [address], [place] [address] Dec, [facility] [address] [id number] [address] [place] [address], [place] [address] Dec, [facility] [address] [id number] [address] [place] [address], [place] [address] Dec, [facility] [address] [id number] [address] [place] [address], [place] [address] Dec, [facility] [address] [id number] [address] [place] [address], [place] [address] Nov, [facility] [address] [id number] [address] [place] [address], [place] [address] Nov, [facility] [address] [id number] [address] [place] [address], [place] [address] Nov, [facility] [address] [id number] [address] [place] [address], [place] [address] Nov, [facility] [address] [id number] [address] [address] Nov, [facility] [address] [id number] [address] [place] [address], [place] [address] Nov, [facility] [address] [id number] [address] [place] [address], [place] [address] Nov, [facility] [address] [id number] [address] [place] [address], [place] [address] Oct, [facility] [address] [id number] [address] [place] [address], [place] [address] Oct, [facility] [address] [id number] [address] [place] [address], [place] [address] Oct, [facility] [address] [id number] [address] [place] [address], [place] [address] Oct, [facility] [address] [id number] [address] [place] [address], [place] [address] Oct, [facility] [address] [id number] [address] [place] [address], [place] [address] Oct, [facility] [address] [id number] [address] [place] [address], [place] [address] Oct, [facility] [address] [id number] [address] [place] [address], [place] [address] Oct, [facility] [address] [id number] [address] [place] [address], [place] [address] Sep, [facility] [address] [id number] [address] [place] [address], [place] [address] Sep, [facility] [address] [id number] [address] [place] [address], [place] [address] Sep, [facility] [address] [id number] [address] [place] [address], [place] [address] Sep, [facility] [address] [id number] [address] [place] [address], [place] [address] Sep, [facility] [address] [id number] [address] [place] [address], [place] [address] Sep, [facility] [address] [id number] [address] [place] [address], [place] [address] August, [facility] [address] [id number] [address] [place] [address], [place] [address] August, [facility] [address] [id number] [address] [place] [address], [place] [address] August, [facility] [address] [id number] [address] [place] [address], [place] [address] August, [facility] [address] [id number] [address] [place] [address], [place] [address] August, [facility] [address] [id number] [address] [place] [address], [place] [address] Jul, [facility] [address] [id number] [address] [place] [address], [place] [address] Jul, [facility] [address] [id number] [address] [place] [address], [place] [address] 24 Jul, 2012 [facility] [address] [id number] [address] [place] [address], [place] [address] Jul, [facility] [address] [id number] [address] [place] [address], [place] [address] Jul, [facility] [address] [id number] [address] [place] [address], [place] [address] 05 Jul, 2012 [facility] [address] [id number] [address] [place] [address], [place] [address] 14 Jun, 2012 [facility] [address] [id number] [address] [place] [address], [place] [address] 13 Jun, 2012 [facility] [address] [id number] [address] [place] [address], [place] [address] 07 Jun, 2012 [facility] [address] [id number] [address] [place] [address], [place] [address] 07 Jun, 2012 [facility] [address] [id number] [address] [place] [address], [place] [address] 05 Jun, 2012 [facility] [address] [id number] [address] [place] [address], [place] [address] 19 May, 2012 [facility] [address] [id number] [address] [place] [address], [place] [address] 13 May, 2012 [facility] [address] [id number] [address] [place] [address], [place] [address] May, [facility] [address] [id number] [address] [place] [address], [place] [address] 23 Apr, 2012 [facility] [address] [id number] [address] [place] [address], [place] [address] 14 Apr, 2012 [facility] [address] [id number] [address] [place] [address], [place] [address] Mar, [facility] [address] [id number] [address] [place] [address], [place] [address] Mar, [facility] [address] [id number] [address] [place] [address], [place] [address] Mar, [facility] [address] [id number] [address] [place] [address], [place] [address] 17 Mar, 2012 [facility] [address] [id number] [address] [place] [address], [place] [address] 17 Mar, 2012 [facility] [address] [id number] [address] [place] [address], [place] [address] 13 Mar, 2012 [facility] [address] [id number] [address] [place] [address], [place] [address] Feb, [facility] [address] [id number] [address] [place] [address], [place] [address] Feb, [facility] [address] [id number] [address] [place] [address], [place] [address] Feb, [facility] [address] [id number] [address] [place] [address], [place] [address] 29 Jan, 2012 [facility] [address] [id number] [address] [place] [address], [place] [address] 29 Jan, 2012 [facility] [address] [id number] [address] [place] [address], [place] [address] Jan, [facility] [address] [id number] [address] [place] [address], [place] [address] Jan, [facility] [address] [id number] [address] [place] [address], [place] [address] 24 Jan, 2012 [facility] [address] [id number] [address] [place] [address], [place] [address] Jan, [facility] [address] [id number] [address] [place] [address], [place] [address] Jan, [facility] [address] [id number] [address] [place] [address], [place] [address] 16 Jan, 2012 [facility] [address] [id number] [address] [place] [address], [place] [address] 16 Jan, 2012 [facility] [address] [id number] [address] [place] [address] 18 Dec, 2011 [facility] [address] [id number] [address] [place] [address], [place] [address] 13 Dec, 2011 [facility] [address] [id number] [address] [place] [address] 11 Dec, 2011 [facility] [address] [id number] [address] [place] [address], [place] [address] 22 Nov, 2011 [facility] [address] [id number] [address] [place] [address], [place] [address] 17 Nov, 2011 [facility] [address] [id number] [address] [place] [address], [place] [address] 16 Nov, 2011 [facility] [address] [id number] [address] [place] [address], [place] [address] 16 Oct, 2011 [facility] [address] [id number] [address] [place] [address], [place] [address] Oct, [facility] [address] [id number] [address] [place] [address], [place] [address] Sep, [facility] [address] [id number] [address] [place] [address], [place] [address] Sep, [facility] [address] [id number] [address] [place] [address], [place] [address] Sep, [facility] [address] [id number] [address] [place] [address], [place] [address] Sep, [facility] [address] [id number] [address] [place] [address], [place] [address] Sep, [facility] [address] [id number] [address] [place] [address], [place] [address] August, [facility] [address] [id number] [address] [place] [address], [place] [address] August, [facility] [address] [id number] [address] [place] [address], [place] [address] August, [facility] [address] [id number] [address] [place] [address], [place] [address] August, [facility] [address] [id number] [address] [place] [address], [place] [address] August, [facility] [address] [id number] [address] [place] [address], [place] [address] August, [facility] [address] [id number] [address] [place] [address], [place] [address] August, [facility] [address] [id number] [address] [place] [address], [place] [address] August, [facility] [address] [id number] [address] [place] [address], [place] [address] August, [facility] [address] [id number] [address] [place] [address], [place] [address] 27 Jul, 2011 [facility] [address] [id number] [address] [place] [address], [place] [address] 19 Jul, 2011 [facility] [address] [id number] [address] [place] [address], [place] [address] 10 Jul, 2011 [facility] [address] [id number] [address] [place] [address], [place] [address] 04 Jul, 2011 [facility] [address] [id number] [address] [place] [address], [place] [address] 27 Jun, 2011 [facility] [address] [id number] [address] [place] [address], [place] [address] 13 Jun, 2011 [facility] [address] [id number] [address] [place] [address], [place] [address] 13 Jun, 2011 [facility] [address] [id number] [address] [place] [address], [place] [address] 27 May, 2011 [facility] [address] [id number] [address] [place] [address], [place] [address] 24 May, 2011 [facility] [address] [id number] [address] [place] [address], [place] [address] 20 May, 2011 [facility] [address] [id number] [address] [place] [address], [place] [address] 16 May, 2011 [facility] [address] [id number] [address] [place] [address], [place] [address] 15 May, 2011 [facility] [address] [id number] [address] [place] [address], [place] [address] 14 May, 2011 [facility] [address] [id number] [address] [place] [address], [place] [address] 10 May, 2011 [facility] [address] [id number] [address] [place] [address], [place] [address] 09 May, 2011 [facility] [address] [id number] [address] [place] [address], [place] [address] 02 May, 2011 [facility] [address] [id number] [address] [place] [address], [place] [address] Apr, [facility] [address] [id number] [address] [place] [address], [place] [address] Apr, [facility] [address] [id number] [address] [place] [address], [place] [address] Apr, [facility] [address] [id number] [address] [place] [address], [place] [address] Apr, [facility] [address] [id number] [address] [place] [address], [place] [address] Apr, [facility] [address] [id number] [address] [place] [address], [place] [address] Apr, [facility] [address] [id number] [address] [place] [address], [place] [address] Apr, [facility] [address] [id number] [address] [place] [address], [place] [address] Apr, [facility] [address] [id number] [address] [place] [address], [place] [address] Apr, [facility] [address] [id number] [address] [place] [address], [place] [address] Apr, [facility] [address] [id number] [address] [place] [address], [place] [address] Apr, [facility] [address] [id number] [address] [place] [address], [place] [address] Mar, [facility] [address] [id number] [address] [place] [address], [place] [address] Mar, [facility] [address] [id number] [address] [place] [address], [place] [address] Mar, [facility] [address] [id number] [address] [place] [address], [place] [address] 05 Mar, 2011 [facility] [address] [facility] [id number] [address] [place] [phone] Feb, [facility] [address] [facility] [id number] [address] [place] [id number] Feb, [facility] [address] [facility] [id number] [address] [place] [phone] Jan, [facility] [address] [facility] [id number] [address] [place] [phone] Nov, IMMUNIZATIONS No Known Immunizations SOCIAL HISTORY [...] laser treatment for glaucoma Hospitalization History [facility]- Right side and back pain related to fall, hurts to breathe (ED at 7 pm) 06/07/2017 [facility] [place] ( went to ED at 1200) 06/07/2017 Hospitalization History COPD exacerbation - Gerald Pizano 2017 Hospitalization History Blood clot, port placement - Gerald Pizano 09/2017
--- OUTSIDE RECORDS SUMMARY | 2019-09-01 14:24 | XMS REPORT ---
Author Author Sophia SEGURA Organization [facility] Address [address] [place] [address] Care Team Providers Care Mechanics Supervisor Name Role Phone HERMINIA SEGURA Unavailable PROBLEMS Type Condition ICD9-CM Code ILE15-RE Code Onset Dates Condition S tatus SNOMED Code Problem Proteinuria R80.9 Active 65832093 Problem Essential hypertension I10 Active 43687150 Problem Anxiety F41.9 Active 13868518 Problem Type 2 diabetes mellitus without complication E11. 9 Active 36338563 Problem Hyperlipidemia, unspecified hyperlipidemia E78.5 Active 04821205 Problem Major depressive disorder, recurrent episode, un specified severity F33.9 Active 75926313 Problem Sciatica, unspecified laterality M54.30 Active 36887581 Problem Acute cystitis with hematuria N30.01 Active 01840064 Problem Chronic pain syndrome G89.4 Active 532872123 Problem Exacerbation of systemic lupus M32.9 Active 44874702 Problem Generalized abdominal pain R10.84 Act sree 936260925 Problem Carpal tunnel syndrome, right upper limb G56.01 Active 48284574 Problem History of small bowel obstruction Z87.19 Active 958646824 Problem History of pulmonary embolism Z86.711 Active 758090296 Problem Presence of IVC filter Z95.828 Active 993342431 Problem Port catheter in place Z95.828 Active 399869471 Problem Gastroesophageal reflux disease, esophagitis pre sence not specified K21.9 Active 907535486 Problem Chronic pancreatitis, unspecified pancreatitis type K86.1 Active 109839926 Problem Hypothyroidism, unspecified type E03.9 Active 86191848 Problem Vitamin D deficiency E55.9 Active 69815388 Problem Nausea R11.0 Active 010463027 Problem Pneumonia due to infectious organism, unspecified laterality, unspecified part of lung J18.9 Active 312 976031 Problem Gastroesophageal reflux disease without esophagitis K21.9 Active 946916491 Problem Violation of controlled substance agreement Z91.14 Active 501328359 Problem Obstructive sleep apnea G47.33 Active 11095692 Problem Hypertension, benign I10 Active 69561978 Problem Venous insufficiency I87.2 Active 50815695 Problem Chronic obstructive pulmonary disease, unspecified COPD ty pe J44.9 Active 88861683 Problem Tobacco abuse counseling Z71.6 Activ e 73700544 Problem 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 A ctive 095862027 Problem Opiate dependence, continuous F11.20 Active 273575066 Problem Cannabis abuse with physiological dependence F12.1 0 Active 20896996 ALLERGIES No Information ENCOUNTERS Encounter Location Date Diagnosis [facility] [address] [place] [id number] Jul, [facility] [address] [address] 04 May, 2019 [facility] [address] [address] Apr, Tobacco abuse Z72.0 ; Hypert ension, benign I10 and Tobacco abuse counseling Z71.6 [facility] [address] [place] [id number] [address] [place] [phone] Sep, [facility] [address] [address] Sep, [facility] [address] [address] Sep, Essential hypertension I10 [facility] [address] [place] [phone] Sep, [facility] [address] [place] [id number] [address] [place] [phone] Sep, [facility] [address] [id number] [address] [place] [address] Sep, Neck mass R22.1 [facility] [address] [id number] [address] [place] [phone] August, Neck mass R22.1 [facility] [address] [facility] [id number] [address] [place] [phone] Feb, Left foot pain M79.672 [facility] [address] [facility] [id number] [address] [place] [phone] Jun, Chronic pain syndrome G89.4 [facility] [id number] [place] [id number] May, [facility] [address] [facility] [id number] [address] [place] [phone] May, [facility] [address] [facility] [id number] [address] [place] [address] May, Chronic pain syndrome G89.4 [facility] [address] [facility] [id number] [address] [place] [id number] 13 May, 2017 [facility] [address] [facility] [id number] [address] [place] [id number] 10 May, 2017 Encounter for immunization Z 23 and Laceration of left index finger without foreign body without damage to nail, initial encounter S61.211A [facility] [address] [facility] [id number] [address] [place] [id number] 09 May, 2017 Chronic pain syndrome G89.4 [facility] [address] [facility] [id number] [address] [place] [phone] May, [facility] [address] [facility] [id number] [address] [place] [address] Apr, Cannabis abuse with physiolo gical dependence F12.10 ; Violation of controlled substance agreement Z91.14 and Opiate dependence, continuous F11.20 [facility] [address] [facility] [id number] [address] [place] [phone] Apr, Type 2 diabetes mellitus wit hout complication E11.9 [facility] [address] [facility] [id number] [address] [place] [id number] Apr, [facility] [address] [facility] [id number] [address] [place] [address] Apr, Chronic pain syndrome G89.4 [facility] [address] [facility] [id number] [address] [place] [phone] Apr, Viral syndrome B34.9 [facility] [address] [facility] [id number] [address] [place] [id number] Apr, [facility] [address] [facility] [id number] [address] [place] [phone] Mar, Chronic pain syndrome G89.4 [facility] [address] [facility] [id number] [address] [place] [phone] Mar, [facility] [address] [facility] [id number] [address] [place] [phone] Mar, [facility] [address] [facility] [id number] [address] [place] [address] Feb, Essential hypertension I10 ; Chronic pain syndrome G89.4 ; Hyperlipidemia, unspecified hyperlipidemia E78.5 ; 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 and Encounter for immunization Z23 [facility] [address] [facility] [id number] [address] [place] [address] Feb, Chronic pain syndrome G89.4 [facility] [address] [facility] [id number] [address] [place] [phone] Jan, Chronic pain syndrome G89.4 [facility] [address] [facility] [id number] [address] [place] [phone] Jan, [facility] [address] [facility] [id number] [address] [place] [address] Jan, Bronchitis J40 ; Port cathet er in place Z95.828 and Chronic pain syndrome G89.4 [facility] [id number] [place] [address] [id number] Jan, [facility] [address] [facility] [id number] [address] [place] [id number] Dec, Chronic pain syndrome G89.4 [facility] [address] [facility] [id number] [address] [place] [id number] Dec, Chronic pain syndrome G89.4 [facility] [address] [id number] [address] [place] [phone] Dec, [facility] [address] [id number] [address] [place] [phone] Nov, [facility] [address] [id number] [address] [place] [phone] Nov, Chronic pain syndrome G89.4 [facility] [address] [id number] [address] [place] [phone] Oct, Chronic pain syndrome G89.4 [facility] [address] [id number] [address] [place] [phone] Oct, [facility] [address] [id number] [address] [place] [address] Sep, Chronic pain syndrome G89.4 [facility] [address] [id number] [address] [place] [id number] Sep, Exacerbation of systemic lup us M32.9 [facility] [address] [id number] [address] [place] [phone] Sep, [facility] [address] [id number] [address] [place] [phone] Sep, [facility] [address] [id number] [address] [place] [id number] Sep, Nausea R11.0 [facility] [address] [id number] [address] [place] [address] August, Chronic pain syndrome G89.4 [facility] [address] [id number] [address] [place] [id number] August, [facility] [address] [id number] [address] [place] [phone] August, Chronic pain syndrome G89.4 [facility] [address] [address] Jul, Pneumonia due to infectious organism, unspecified laterality, unspecified part of lung J18.9 and Tobacco abuse counseling Z71.6 [place] [address] [address] Jul, Chronic pain syndrome G89.4 [place] [address] [address] Jun, Essential hypertension I10 [place] [address] [address] Jun, Pneumonia due to infectious organism, unspecified laterality, unspecified part of lung J18.9 [place] [address] [address] Jun, Chronic pain syndrome G89.4 [place] [address] [address] May, Essential hypertension I10 ; Type 2 [...] and Gastroesophageal reflux disease without esophagitis K21.9 [place] [address] [address] Apr, [address] [address] Apr, Pneumonia due to infectious organism, unspecified laterality, unspecified part of lung J18.9 and Nausea R11.0 [place] [address] [address] Apr, Essential hypertension I10 ; Chronic pain syndrome G89.4 ; Type 2 diabetes mellitus without complication E11.9 ; Hyperlipidemia, unspecified hyperlipidemia E78.5 ; Major depressive disorder, recurrent episode, unspecified severity F33.9 ; Sciatica, unspecified laterality M54.30 ; Chronic obstructive pulmonary disease, unspecified COPD type J44.9 ; Pneumonia due to infectious organism, unspecified laterality, unspecified part of lung J18.9 and Nausea R11.0 [facility] [id number] [place] [phone] Mar, [place] [address] [address] Mar, [place] [address] [address] Mar, [place] [address] [address] Mar, Anxiety F41.9 and Major depr essive disorder, recurrent episode, unspecified severity F33.9 [place] [address] [place] [id number] [place] [address] Mar, [place] [address] [address] Mar, [place] [address] [address] Mar, Generalized abdominal pain R 10.84 ; Acute cystitis with hematuria N30.01 and Essential hypertension I10 [facility] [address] [place] [address] Mar, Sore throat J02.9 and Exacer bation of systemic lupus M32.9 [place] [address] [place] [id number] [place] [address] Feb, Type 2 diabetes mellitus wit hout [...] reflux disease, esophagitis presence not specified K21.9 [facility] [address] [facility] [id number] [address] [place] [phone] Feb, [place] [address] [place] [id number] [address] [place] [address] Jan, [facility] [address] [place] [id number] [address] [place] [address] Jan, Right arm pain M79.601 [address] of right wrist, initial encounter S66.911A [place] [address] [place] [id number] [address] [place] [phone] Jan, [facility] [address] [place] [address] 30 Dec, 2015 Generalized abdominal pain R 10.84 [place] [address] [place] [id number] [address] [place] [id number] Dec, Adenopathy R59.1 [place] [address] [place] [id number] [address] [place] [phone] Dec, Bronchitis J40 [place] [address] [place] [id number] [place] [phone] 14 Dec, 2015 [place] [address] [place] [id number] [place] [id number] Dec, Essential hypertension I10 [place] [address] [facility] [id number] [address] [place] [address] Nov, [place] [address] [place] [id number] [address] [place] [phone] Nov, [place] [address] [facility] [id number] [address] [place] [address] Nov, Essential hypertension I10 ; Hyperlipidemia, unspecified [...] Type 2 diabetes mellitus without complication E11.9 [place] [address] [address] Nov, [place] [address] [address] Oct, Type 2 diabetes mellitus wit hout complication E11.9 ; Essential hypertension I10 ; Other viral warts B07.8 ; [place] or callus L84 and Hyperlipidemia, unspecified hyperlipidemia E78.5 [place] [address] [place] [id number] [place] [address] Sep, [place] [address] [place] [id number] [place] [address] Sep, [place] [address] [place] [id number] [place] [phone] Jun, [place] [address] [place] [id number] [address] [place] [phone] Jun, [place] [address] [place] [id number] [address] [place] [phone] May, [place] [address] [place] [id number] [place] [address] Apr, [place] [address] [place] [id number] [address] [place] [phone] Feb, [place] [address] [address] Feb, COPD exacerbation J44.1 and Acute upper respiratory infection J06.9 [facility] [address] [id number] [address] [place] [id number] Feb, [facility] [address] [id number] [address] [place] [phone] Feb, [facility] [address] [id number] [address] [place] [id number] Feb, [facility] [address] [id number] [address] [place] [id number] Feb, [facility] [address] [id number] [address] [place] [address] Jan, Left hip pain M25.552 [facility] [address] [id number] [address] [place] [id number] Jan, Essential hypertension I10 ; Chronic pain syndrome G89.4 ; Type 2 diabetes mellitus without complication E11.9 and Hyperlipidemia, unspecified hyperlipidemia E78.5 [facility] [address] [id number] [address] [place] [phone] Jul, [facility] [address] [id number] [address] [place] [id number] Jul, [facility] [address] [id number] [address] [place] [phone] Jul, [facility] [address] [id number] [address] [place] [phone] Jun, [facility] [address] [id number] [address] [place] [phone] Jun, [facility] [address] [id number] [address] [place] [id number] Jun, [facility] [address] [id number] [address] [place] [phone] Jun, [facility] [address] [id number] [address] [place] [id number] Jun, [facility] [address] [id number] [address] [place] [address], [place] [address] Jun, [facility] [address] [id number] [address] [place] [address], [place] [address] Jun, [facility] [address] [id number] [address] [place] [address], [place] [address] Jun, [facility] [address] [id number] [address] [place] [address], [place] [address] Jun, [facility] [address] [id number] [address] [place] [address], [place] [address] Jun, [facility] [address] [id number] [address] [place] [address], [place] [address] Jun, [facility] [address] [id number] [address] [place] [address], [place] [address] Jun, [facility] [address] [id number] [address] [place] [address], [place] [address] Apr, [facility] [address] [id number] [address] [place] [address], [place] [address] Apr, [facility] [address] [id number] [address] [place] [address], [place] [address] Apr, [facility] [address] [id number] [address] [place] [address], [place] [address] Apr, [facility] [address] [id number] [address] [place] [address], [place] [address] Apr, [facility] [address] [id number] [address] [place] [address], [place] [address] Apr, [facility] [address] [id number] [address] [place] [address], [place] [address] Apr, [facility] [address] [id number] [address] [place] [address], [place] [address] Apr, [facility] [address] [id number] [address] [place] [address], [place] [address] 31 Mar, 2014 [facility] [address] [id number] [address] [place] [address], [place] [address] Mar, [facility] [address] [id number] [address] [place] [address], [place] [address] Mar, [facility] [address] [id number] [address] [place] [address], [place] [address] Mar, [facility] [address] [id number] [address] [place] [address], [place] [address] Mar, [facility] [address] [id number] [address] [place] [address], [place] [address] Mar, [facility] [address] [id number] [address] [place] [address], [place] [address] 15 Mar, 2014 [facility] [address] [id number] [address] [place] [address], [place] [address] Mar, [facility] [address] [id number] [address] [place] [address], [place] [address] Mar, [facility] [address] [id number] [address] [place] [address], [place] [address] Mar, [facility] [address] [id number] [address] [place] [address], [place] [address] Mar, [facility] [address] [id number] [address] [place] [address], [place] [address] Mar, [facility] [address] [id number] [address] [place] [address], [place] [address] Mar, [facility] [address] [id number] [address] [place] [address], [place] [address] Feb, [facility] [address] [id number] [address] [place] [address], [place] [address] Feb, [facility] [address] [id number] [address] [place] [address], [place] [address] Feb, [facility] [address] [id number] [address] [place] [address], [place] [address] Feb, [facility] [address] [id number] [address] [place] [address], [place] [address] Feb, [facility] [address] [id number] [address] [place] [address], [place] [address] Feb, [facility] [address] [id number] [address] [place] [address], [place] [address] Feb, [facility] [address] [id number] [address] [place] [address], [place] [address] Feb, [facility] [address] [id number] [address] [place] [address], [place] [address] Jan, [facility] [address] [id number] [address] [place] [address], [place] [address] Jan, [facility] [address] [id number] [address] [place] [address], [place] [address] Jan, [facility] [address] [id number] [address] [place] [address], [place] [address] Jan, [facility] [address] [id number] [address] [place] [address], [place] [address] Jan, [facility] [address] [id number] [address] [place] [address], [place] [address] Jan, [facility] [address] [id number] [address] [place] [id number] Jan, [facility] [address] [id number] [address] [place] [address], [place] [address] Jan, [facility] [address] [id number] [address] [place] [address], [place] [address] Jan, [facility] [address] [id number] [address] [place] [address], [place] [address] 30 Dec, 2013 [facility] [address] [id number] [address] [place] [address], [place] [address] 30 Dec, 2013 [facility] [address] [id number] [facility] [place] [address] 26 Dec, 2013 [facility] [address] [id number] [facility] [place] [address] 26 Dec, 2013 [facility] [address] [id number] [address] [place] [address], [place] [address] 16 Dec, 2013 [facility] [address] [id number] [address] [place] [address], [place] [address] 16 Dec, 2013 [facility] [address] [id number] [address] [place] [address], [place] [address] 08 Dec, 2013 [facility] [address] [id number] [address] [place] [address], [place] [address] 08 Dec, 2013 [facility] [address] [id number] [address] [place] [address], [place] [address] Dec, 2013 [facility] [address] [id number] [address] [place] [address], [place] [address] Dec, 2013 [facility] [address] [id number] [address] [place] [address], [place] [address] Nov, [facility] [address] [id number] [address] [place] [address], [place] [address] Nov, [facility] [address] [id number] [address] [place] [address], [place] [address] Nov, [facility] [address] [id number] [address] [place] [address], [place] [address] Nov, [facility] [address] [id number] [address] [place] [address], [place] [address] Nov, [facility] [address] [id number] [address] [place] [address], [place] [address] Nov, [facility] [address] [id number] [address] [place] [address], [place] [address] Nov, [facility] [address] [id number] [address] [place] [address] Nov, [facility] [address] [id number] [address] [place] [address] Nov, [facility] [address] [id number] [address] [place] [address] Nov, [facility] [address] [id number] [address] [place] [address], [place] [address] Nov, [facility] [address] [id number] [address] [place] [address], [place] [address] Nov, [facility] [address] [id number] [address] [place] [address], [place] [address] Nov, [facility] [address] [id number] [address] [place] [address], [place] [address] Oct, [facility] [address] [id number] [address] [place] [address], [place] [address] Oct, [facility] [address] [id number] [address] [place] [address], [place] [address] Oct, [facility] [address] [id number] [address] [place] [address], [place] [address] Oct, [facility] [address] [id number] [address] [place] [address], [place] [address] Oct, [facility] [address] [id number] [address] [place] [address], [place] [address] Oct, [facility] [address] [address] [id number] [address] [place] [address], [place] [address] Sep, [facility] [address] [id number] [address] [place] [address], [place] [address] Sep, [facility] [address] [id number] [address] [place] [address], [place] [address] Sep, [facility] [address] [id number] [address] [place] [address], [place] [address] Sep, [facility] [address] [id number] [facility] [place] [address] Sep, [facility] [address] [id number] [address] [place] [address], [place] [address] Sep, [facility] [address] [id number] [address] [place] [address], [place] [address] Sep, [facility] [address] [id number] [address] [place] [address], [place] [address] Sep, [facility] [address] [id number] [address] [place] [address], [place] [address] Sep, [facility] [address] [id number] [address] [place] [address], [place] [address] Sep, [facility] [address] [id number] [address] [place] [address], [place] [address] Sep, [facility] [address] [id number] [address] [place] [address], [place] [address] Sep, [facility] [address] [id number] [address] [place] [address], [place] [address] August, [facility] [address] [id number] [address] [place] [address], [place] [address] August, [facility] [address] [id number] [address] [place] [address], [place] [address] Jul, [facility] [address] [id number] [address] [place] [address], [place] [address] Jul, [facility] [address] [id number] [address] [place] [address], [place] [address] Jul, [facility] [address] [id number] [address] [place] [address], [place] [address] Jul, [facility] [address] [id number] [address] [place] [address], [place] [address] Jul, [facility] [address] [id number] [facility] [place] [address] 22 Jul, 2013 [facility] [address] [id number] [facility] [place] [address] 16 Jul, 2013 [facility] [address] [id number] [facility] [place] [address] 16 Jul, 2013 [facility] [address] [id number] [address] [place] [address], [place] [address] Jul, [facility] [address] [id number] [address] [place] [address], [place] [address] Jul, [facility] [address] [id number] [address] [place] [address], [place] [address] Jul, [facility] [address] [id number] [address] [place] [address], [place] [address] Jun, [facility] [address] [id number] [address] [place] [address], [place] [address] Jun, [facility] [address] [id number] [address] [place] [address], [place] [address] Jun, [facility] [address] [id number] [address] [place] [address], [place] [address] Jun, [facility] [address] [id number] [address] [place] [address], [place] [address] Jun, [facility] [address] [id number] [address] [place] [address], [place] [address] Jun, [facility] [address] [id number] [address] [place] [address], [place] [address] Jun, [facility] [address] [id number] [address] [place] [address], [place] [address] Jun, [facility] [address] [id number] [address] [place] [address], [place] [address] May, [facility] [address] [id number] [address] [place] [address], [place] [address] May, [facility] [address] [id number] [address] [place] [address], [place] [address] May, [facility] [address] [id number] [address] [place] [address], [place] [address] May, [facility] [address] [id number] [address] [place] [address], [place] [address] May, [facility] [address] [id number] [address] [place] [address], [place] [address] May, [facility] [address] [id number] [address] [place] [address], [place] [address] May, [facility] [address] [id number] [address] [place] [address], [place] [address] May, [facility] [address] [id number] [address] [place] [address], [place] [address] May, [facility] [address] [id number] [address] [place] [address], [place] [address] May, [facility] [address] [id number] [address] [place] [address], [place] [address] May, [facility] [address] [id number] [address] [place] [address], [place] [address] May, [facility] [address] [id number] [address] [place] [address], [place] [address] May, [facility] [address] [id number] [address] [place] [address], [place] [address] Apr, [facility] [address] [id number] [address] [place] [address], [place] [address] Apr, [facility] [address] [id number] [address] [place] [address], [place] [address] Apr, [facility] [address] [id number] [address] [place] [address], [place] [address] Apr, [facility] [address] [id number] [address] [place] [address], [place] [address] Apr, [facility] [address] [id number] [address] [place] [address], [place] [address] Apr, [facility] [address] [id number] [address] [place] [address], [place] [address] Apr, [facility] [address] [id number] [address] [place] [address], [place] [address] Apr, [facility] [address] [id number] [address] [place] [address], [place] [address] Apr, [facility] [address] [id number] [address] [place] [address], [place] [address] Apr, [facility] [address] [id number] [address] [place] [address], [place] [address] Apr, [facility] [address] [id number] [address] [place] [address], [place] [address] Apr, [facility] [address] [id number] [address] [place] [address], [place] [address] Apr, [facility] [address] [id number] [address] [place] [address], [place] [address] Apr, [facility] [address] [id number] [address] [place] [address], [place] [address] Apr, [facility] [address] [id number] [address] [place] [address], [place] [address] Mar, [facility] [address] [id number] [address] [place] [address], [place] [address] Mar, [facility] [address] [id number] [address] [place] [address], [place] [address] Mar, [facility] [address] [id number] [address] [place] [address], [place] [address] Mar, [facility] [address] [id number] [address] [place] [address], [place] [address] Mar, [facility] [address] [id number] [address] [place] [address], [place] [address] Mar, [facility] [address] [id number] [address] [place] [address], [place] [address] 17 Mar, 2013 [facility] [address] [id number] [address] [place] [address], [place] [address] 17 Mar, 2013 [facility] [address] [id number] [address] [place] [address], [place] [address] Mar, [facility] [address] [id number] [address] [place] [address], [place] [address] Mar, [facility] [address] [id number] [address] [place] [address], [place] [address] Mar, [facility] [address] [id number] [address] [place] [address], [place] [address] Mar, [facility] [address] [id number] [address] [place] [address], [place] [address] Feb, [facility] [address] [id number] [address] [place] [address], [place] [address] Feb, [facility] [address] [id number] [address] [place] [address], [place] [address] Feb, [facility] [address] [id number] [address] [place] [address], [place] [address] Feb, [facility] [address] [id number] [address] [place] [address] Feb, [facility] [address] [id number] [address] [place] [address], [place] [address] Feb, [facility] [address] [id number] [address] [place] [address], [place] [address] Feb, [facility] [address] [id number] [address] [place] [address], [place] [address] Feb, [facility] [address] [id number] [address] [place] [address], [place] [address] Jan, [facility] [address] [id number] [address] [place] [address], [place] [address] Jan, [facility] [address] [id number] [address] [place] [address], [place] [address] Jan, [facility] [address] [id number] [address] [place] [address], [place] [address] Jan, [facility] [address] [id number] [address] [place] [address], [place] [address] Jan, [facility] [address] [id number] [address] [place] [address], [place] [address] Jan, [facility] [address] [id number] [address] [place] [address], [place] [address] Jan, [facility] [address] [id number] [address] [place] [address], [place] [address] Dec, [facility] [address] [id number] [address] [place] [address], [place] [address] Dec, [facility] [address] [id number] [address] [place] [address], [place] [address] Dec, [facility] [address] [id number] [address] [place] [address], [place] [address] Dec, [facility] [address] [id number] [address] [place] [address], [place] [address] Dec, [facility] [address] [id number] [address] [place] [address], [place] [address] Nov, [facility] [address] [id number] [address] [place] [address], [place] [address] Nov, [facility] [address] [id number] [address] [place] [address], [place] [address] Nov, [facility] [address] [id number] [address] [place] [address], [place] [address] Nov, [facility] [address] [id number] [facility] [place] [address] Nov, [facility] [address] [id number] [address] [place] [address], [place] [address] Nov, [facility] [address] [id number] [address] [place] [address], [place] [address] Nov, [facility] [address] [id number] [address] [place] [address], [place] [address] Oct, [facility] [address] [id number] [address] [place] [address], [place] [address] Oct, [facility] [address] [id number] [address] [place] [address], [place] [address] Oct, [facility] [address] [id number] [address] [place] [address], [place] [address] Oct, [facility] [address] [id number] [address] [place] [address], [place] [address] Oct, [facility] [address] [id number] [address] [place] [address], [place] [address] Oct, [facility] [address] [id number] [address] [place] [address], [place] [address] Oct, [facility] [address] [id number] [address] [place] [address], [place] [address] Oct, [facility] [address] [id number] [address] [place] [address], [place] [address] Sep, [facility] [address] [id number] [address] [place] [address], [place] [address] Sep, [facility] [address] [id number] [address] [place] [address], [place] [address] Sep, [facility] [address] [id number] [address] [place] [address], [place] [address] Sep, [facility] [address] [id number] [address] [place] [address], [place] [address] Sep, [facility] [address] [id number] [address] [place] [address], [place] [address] Sep, [facility] [address] [id number] [address] [place] [address], [place] [address] August, [facility] [address] [id number] [address] [place] [address], [place] [address] August, [facility] [address] [id number] [address] [place] [address], [place] [address] August, [facility] [address] [id number] [address] [place] [address], [place] [address] August, [facility] [address] [id number] [address] [place] [address], [place] [address] August, [facility] [address] [id number] [address] [place] [address], [place] [address] Jul, [facility] [address] [id number] [address] [place] [address], [place] [address] Jul, [facility] [address] [id number] [address] [place] [address], [place] [address] 24 Jul, 2012 [facility] [address] [id number] [address] [place] [address], [place] [address] Jul, [facility] [address] [id number] [address] [place] [address], [place] [address] Jul, [facility] [address] [id number] [address] [place] [address], [place] [address] 05 Jul, 2012 [facility] [address] [id number] [address] [place] [address], [place] [address] 14 Jun, 2012 [facility] [address] [id number] [address] [place] [address], [place] [address] 13 Jun, 2012 [facility] [address] [id number] [address] [place] [address], [place] [address] 07 Jun, 2012 [facility] [address] [id number] [address] [place] [address], [place] [address] 07 Jun, 2012 [facility] [address] [id number] [address] [place] [address], [place] [address] 05 Jun, 2012 [facility] [address] [id number] [address] [place] [address], [place] [address] 19 May, 2012 [facility] [address] [id number] [address] [place] [address], [place] [address] 13 May, 2012 [facility] [address] [id number] [address] [place] [address], [place] [address] May, [facility] [address] [id number] [address] [place] [address], [place] [address] 23 Apr, 2012 [facility] [address] [id number] [address] [place] [address], [place] [address] 14 Apr, 2012 [facility] [address] [id number] [address] [place] [address], [place] [address] Mar, [facility] [address] [id number] [address] [place] [address], [place] [address] Mar, [facility] [address] [id number] [address] [place] [address], [place] [address] Mar, [facility] [address] [id number] [address] [place] [address], [place] [address] 17 Mar, 2012 [facility] [address] [id number] [address] [place] [address], [place] [address] 17 Mar, 2012 [facility] [address] [id number] [address] [place] [address], [place] [address] 13 Mar, 2012 [facility] [address] [id number] [address] [place] [address], [place] [address] Feb, [facility] [address] [id number] [address] [place] [address], [place] [address] Feb, [facility] [address] [id number] [address] [place] [address], [place] [address] Feb, [facility] [address] [id number] [address] [place] [address], [place] [address] 29 Jan, 2012 [facility] [address] [id number] [address] [place] [address], [place] [address] 29 Jan, 2012 [facility] [address] [id number] [address] [place] [address], [place] [address] Jan, [facility] [address] [id number] [address] [place] [address], [place] [address] Jan, [facility] [address] [id number] [address] [place] [address], [place] [address] 24 Jan, 2012 [facility] [address] [id number] [address] [place] [address], [place] [address] Jan, [facility] [address] [id number] [address] [place] [address], [place] [address] Jan, [facility] [address] [id number] [address] [place] [address], [place] [address] 16 Jan, 2012 [facility] [address] [id number] [address] [place] [address], [place] [address] 16 Jan, 2012 [facility] [address] [id number] [address] [place] [address] 18 Dec, 2011 [facility] [address] [id number] [address] [place] [address], [place] [address] 13 Dec, 2011 [facility] [address] [id number] [address] [place] [address] 11 Dec, 2011 [facility] [address] [id number] [address] [place] [address], [place] [address] 22 Nov, 2011 [facility] [address] [id number] [address] [place] [address], [place] [address] 17 Nov, 2011 [facility] [address] [id number] [address] [place] [address], [place] [address] 16 Nov, 2011 [facility] [address] [id number] [address] [place] [address], [place] [address] 16 Oct, 2011 [facility] [address] [id number] [address] [place] [address], [place] [address] Oct, [facility] [address] [id number] [address] [place] [address], [place] [address] Sep, [facility] [address] [id number] [address] [place] [address], [place] [address] Sep, [facility] [address] [id number] [address] [place] [address], [place] [address] Sep, [facility] [address] [id number] [address] [place] [address], [place] [address] Sep, [facility] [address] [id number] [address] [place] [address], [place] [address] Sep, [facility] [address] [id number] [address] [place] [address], [place] [address] August, [facility] [address] [id number] [address] [place] [address], [place] [address] August, [facility] [address] [id number] [address] [place] [address], [place] [address] August, [facility] [address] [id number] [address] [place] [address], [place] [address] August, [facility] [address] [id number] [address] [place] [address], [place] [address] August, [facility] [address] [id number] [address] [place] [address], [place] [address] August, [facility] [address] [id number] [address] [place] [address], [place] [address] August, [facility] [address] [id number] [address] [place] [address], [place] [address] August, [facility] [address] [id number] [address] [place] [address], [place] [address] August, [facility] [address] [id number] [address] [place] [address], [place] [address] 27 Jul, 2011 [facility] [address] [id number] [address] [place] [address], [place] [address] 19 Jul, 2011 [facility] [address] [id number] [address] [place] [address], [place] [address] 10 Jul, 2011 [facility] [address] [id number] [address] [place] [address], [place] [address] 04 Jul, 2011 [facility] [address] [id number] [address] [place] [address], [place] [address] 27 Jun, 2011 [facility] [address] [id number] [address] [place] [address], [place] [id number] 13 Jun, 2011 [facility] [address] [id number] [address] [place] [address], [place] [address] 13 Jun, 2011 [facility] [address] [id number] [address] [place] [address], [place] [address] 27 May, 2011 [facility] [address] [id number] [address] [place] [address], [place] [address] 24 May, 2011 [facility] [address] [id number] [address] [place] [address], [place] [address] 20 May, 2011 [facility] [address] [id number] [address] [place] [address], [place] [address] 16 May, 2011 [facility] [address] [id number] [address] [place] [address], [place] [address] 15 May, 2011 [facility] [address] [id number] [address] [place] [address], [place] [address] 14 May, 2011 [facility] [address] [id number] [address] [place] [address], [place] [address] 10 May, 2011 [facility] [address] [id number] [address] [place] [address], [place] [address] 09 May, 2011 [facility] [address] [id number] [address] [place] [address], [place] [address] 02 May, 2011 [facility] [address] [id number] [address] [place] [address], [place] [address] Apr, [facility] [address] [id number] [address] [place] [address], [place] [address] Apr, [facility] [address] [id number] [address] [place] [address], [place] [address] Apr, [facility] [address] [id number] [address] [place] [address], [place] [address] Apr, [facility] [address] [id number] [address] [place] [address], [place] [address] Apr, [facility] [address] [id number] [address] [place] [address], [place] [address] Apr, [facility] [address] [id number] [address] [place] [address], [place] [address] Apr, [facility] [address] [id number] [address] [place] [address], [place] [address] Apr, [facility] [address] [id number] [address] [place] [address], [place] [address] Apr, [facility] [address] [id number] [address] [place] [address], [place] [address] Apr, [facility] [address] [id number] [address] [place] [address], [place] [address] Apr, [facility] [address] [id number] [address] [place] [address], [place] [address] Mar, [facility] [address] [id number] [address] [place] [address], [place] [address] Mar, [facility] [address] [id number] [address] [place] [address], [place] [address] Mar, [facility] [address] [id number] [address] [place] [address], [place] [address] 05 Mar, 2011 [facility] [address] [facility] [id number] [address] [place] [id number] Feb, [facility] [address] [facility] [id number] [address] [place] [id number] Feb, [facility] [address] [facility] [id number] [address] [place] [id number] Jan, [facility] [address] [facility] [id number] [address] [place] [id number] Nov, IMMUNIZATIONS No Known Immunizations SOCIAL HISTORY [...] laser treatment for glaucoma Hospitalization History [facility]- Right side and back pain related to fall, hurts to breathe (ED at 7 pm) 06/07/2017 [facility] [place] ( went to ED at 1200) 06/07/2017 Hospitalization History COPD exacerbation - Gerald Piznao 2017 Hospitalization History Blood clot, port placement - Gerald Pizano 09/2017
--- OUTSIDE RECORDS SUMMARY | 2019-09-01 14:24 | XMS REPORT ---
Author Author Sophia Palacios [facility] Address [address] [place] [address] Care Team Providers Care Mexican [employer] Hand Name Role Phone JUSTICE Palacios Unavailable PROBLEMS Type Condition ICD9-CM Code [id number] Code Onset Dates Condition S tatus SNOMED Code Problem Proteinuria R80.9 Active 13828779 Problem Essential hypertension I10 Active 08583278 Problem Anxiety F41.9 Active 43434731 Problem Type 2 diabetes mellitus without complication E11. 9 Active 61337090 Problem Hyperlipidemia, unspecified hyperlipidemia E78.5 Active 08307363 Problem Major depressive disorder, recurrent episode, un specified severity F33.9 Active 42247440 Problem Sciatica, unspecified laterality M54.30 Active 96807382 Problem Acute cystitis with hematuria N30.01 Active 34684934 Problem Chronic pain syndrome G89.4 Active 582594649 Problem Exacerbation of systemic lupus M32.9 Active 27648442 Problem Generalized abdominal pain R10.84 Act sree 872143779 Problem Carpal tunnel syndrome, right upper limb G56.01 Active 42320732 Problem History of small bowel obstruction Z87.19 Active 041250655 Problem History of pulmonary embolism Z86.711 Active 133499463 Problem Presence of IVC filter Z95.828 Active 973136825 Problem Port catheter in place Z95.828 Active 736331661 Problem Gastroesophageal reflux disease, esophagitis pre sence not specified K21.9 Active 748007741 Problem Chronic pancreatitis, unspecified pancreatitis type K86.1 Active 947413113 Problem Hypothyroidism, unspecified type E03.9 Active 86669837 Problem Vitamin D deficiency E55.9 Active 52106212 Problem Nausea R11.0 Active 899179904 Problem Pneumonia due to infectious organism, unspecified laterality, unspecified part of lung J18.9 Active 312 817640 Problem Gastroesophageal reflux disease without esophagitis K21.9 Active 763925627 Problem Violation of controlled substance agreement Z91.14 Active 571855816 Problem Obstructive sleep apnea G47.33 Active 12150204 Problem Hypertension, benign I10 Active 22711244 Problem Venous insufficiency I87.2 Active 45422309 Problem Chronic obstructive pulmonary disease, unspecified COPD ty pe J44.9 Active 75166170 Problem Tobacco abuse counseling Z71.6 Activ e 76665645 Problem 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 A ctive 922380435 Problem Opiate dependence, continuous F11.20 Active 083024594 Problem Cannabis abuse with physiological dependence F12.1 0 Active 94305456 ALLERGIES No Information ENCOUNTERS Encounter Location Date Diagnosis [facility] [address] [address] May, [facility] [address] [address] Apr, Tobacco abuse Z72.0 ; Hypert ension, benign I10 and Tobacco abuse counseling Z71.6 [facility] [address] [address] Sep, [facility] [address] [address] Sep, [facility] [address] [address] Sep, Essential hypertension I10 [facility] [address] [address] Sep, [facility] [address] [address] Sep, [facility] [address] [place] [id number] [address] [place] [phone] Sep, Neck mass R22.1 [facility] [address] [address] August, Neck mass R22.1 [facility] [address] [id number] [address] [place] [address] Feb, Left foot pain M79.672 [facility] [address] [place] [address] [place] [address] 08 Jun, 2017 Chronic pain syndrome G89.4 [facility] [id number] [place] [id number] May, [facility] [address] [facility] [id number] [address] [place] [address] May, [facility] [address] [address] May, Chronic pain syndrome G89.4 [facility] [address] [id number] [address] [place] [address] 13 May, 2017 [facility] [id number] [place] [address] 10 May, 2017 Encounter for immunization Z 23 and Laceration of left index finger without foreign body without damage to nail, initial encounter S61.211A [facility] [address] [place] [id number] [address] [place] [address] 09 May, 2017 Chronic pain syndrome G89.4 [facility] [address] [id number] [address] [place] [address] May, [facility] [address] [address] Apr, Cannabis abuse with physiolo gical dependence F12.10 ; Violation of controlled substance agreement Z91.14 and Opiate dependence, continuous F11.20 [facility] [address] [id number] [address] [place] [address] Apr, Type 2 diabetes mellitus wit hout complication E11.9 [facility] [address] [id number] [address] [place] [address] Apr, [facility] [id number] [place] [address] Apr, Chronic pain syndrome G89.4 [facility] [address] [id number] [address] [place] [address] Apr, Viral syndrome B34.9 [facility] [address] [facility] [id number] [address] [place] [address] Apr, [facility] [address] [facility] [id number] [address] [place] [address] Mar, Chronic pain syndrome G89.4 [facility] [address] [facility] [id number] [address] [place] [phone] Mar, [facility] [address] [facility] [id number] [address] [place] [address] Mar, [facility] [address] [facility] [id number] [address] [place] [address] Feb, Essential hypertension I10 ; Chronic pain syndrome G89.4 ; Hyperlipidemia, unspecified hyperlipidemia E78.5 ; 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 and Encounter for immunization Z23 [facility] [address] [facility] [id number] [address] [place] [address] Feb, Chronic pain syndrome G89.4 [facility] [address] [facility] [id number] [address] [place] [phone] Jan, Chronic pain syndrome G89.4 [facility] [address] [facility] [id number] [address] [place] [address] Jan, [facility] [address] [facility] [id number] [address] [place] [address] Jan, Bronchitis J40 ; Port cathet er in place Z95.828 and Chronic pain syndrome G89.4 [facility] [address] [id number] [id number] Jan, [facility] [address] [facility] [id number] [address] [place] [address] 22 Dec, 2016 Chronic pain syndrome G89.4 [facility] [address] [facility] [id number] [address] [place] [address] 18 Dec, 2016 Chronic pain syndrome G89.4 [facility] [address] [id number] [address] [place] [address] Dec, [facility] [address] [id number] [address] [place] [phone] Nov, [facility] [address] [id number] [address] [place] [address] Nov, Chronic pain syndrome G89.4 [facility] [address] [id number] [address] [place] [phone] Oct, Chronic pain syndrome G89.4 [facility] [address] [id number] [address] [place] [phone] Oct, [facility] [address] [id number] [address] [place] [address] Sep, Chronic pain syndrome G89.4 [facility] [address] [id number] [address] [place] [phone] Sep, Exacerbation of systemic lup us M32.9 [facility] [address] [id number] [address] [place] [phone] Sep, [facility] [address] [id number] [address] [place] [phone] Sep, [facility] [address] [id number] [address] [place] [phone] Sep, Nausea R11.0 [facility] [address] [id number] [address] [place] [phone] August, Chronic pain syndrome G89.4 [facility] [address] [id number] [address] [place] [phone] August, [facility] [address] [id number] [address] [place] [phone] August, Chronic pain syndrome G89.4 [facility] [address] [id number] [address] [place] [address] Jul, Pneumonia due to infectious organism, unspecified laterality, unspecified part of lung J18.9 and Tobacco abuse counseling Z71.6 [place] [address] [place] [address] Jul, Chronic pain syndrome G89.4 [place] [address] [place] [id number] [address] [place] [address] 31 Jun, 2016 Essential hypertension I10 [address] [address] Jun, Pneumonia due to infectious organism, unspecified laterality, unspecified part of lung J18.9 [place] [address] [address] 10 Jun, 2016 Chronic pain syndrome G89.4 [place] [address] [place] [id number] [place] [address] 10 May, 2016 Essential hypertension I10 ; Type 2 diabetes [...] and Gastroesophageal reflux disease without esophagitis K21.9 [address] [place] [address] Apr, [address] [address] Apr, Pneumonia due to infectious organism, unspecified laterality, unspecified part of lung J18.9 and Nausea R11.0 [place] [id number] [address] [place] [address] Apr, Essential hypertension I10 ; Chronic pain syndrome G89.4 ; Type 2 diabetes mellitus without complication E11.9 ; Hyperlipidemia, unspecified hyperlipidemia E78.5 ; Major depressive disorder, recurrent episode, unspecified severity F33.9 ; Sciatica, unspecified laterality M54.30 ; Chronic obstructive pulmonary disease, unspecified COPD type J44.9 ; Pneumonia due to infectious organism, unspecified laterality, unspecified part of lung J18.9 and Nausea R11.0 [facility] [address] [facility] [id number] [address] [place] [phone] Mar, [facility] [address] [facility] [id number] [address] [place] [phone] Mar, [facility] [address] [facility] [id number] [address] [place] [address] Mar, [place] [address] [facility] [id number] [address] [place] [phone] Mar, Anxiety F41.9 and Major depr essive disorder, recurrent episode, unspecified severity F33.9 [place] [address] [facility] [id number] [address] [place] [phone] Mar, [place] [address] [facility] [id number] [address] [place] [phone] Mar, [place] [address] [facility] [id number] [address] [place] [address] Mar, Generalized abdominal pain R 10.84 ; Acute cystitis with hematuria N30.01 and Essential hypertension I10 [facility] [address] [facility] [id number] [address] [place] [address] Mar, Sore throat J02.9 and Exacer bation of systemic lupus M32.9 [place] [address] [facility] [id number] [address] [place] [address] Feb, Type 2 diabetes mellitus wit hout [...] reflux disease, esophagitis presence not specified K21.9 [place] [address] [address] Feb, [place] [address] [address] Jan, [facility] [address] [address] Jan, Right arm pain M79.601 and [address] train of right wrist, initial encounter S66.911A [place] [address] [address] Jan, [facility] [place] [address] [address] 30 Dec, 2015 Generalized abdominal pain R 10.84 [place] [address] [address] Dec, Adenopathy R59.1 [place] [address] [address] 19 Dec, 2015 Bronchitis J40 [place] [address] [address] 14 Dec, 2015 [place] [address] [address] Dec, Essential hypertension I10 [place] [address] [address] Nov, [place] [address] [address] Nov, [place] [address] [address] Nov, Essential hypertension I10 ; Hyperlipidemia, unspecified [...] Type 2 diabetes mellitus without complication E11.9 [place] [address] [place] [id number] [place] [address] Nov, [place] [address] [address] Oct, Type 2 diabetes mellitus wit hout complication E11.9 ; Essential hypertension I10 ; Other viral warts B07.8 ; [place] or callus L84 and Hyperlipidemia, unspecified hyperlipidemia E78.5 [place] [address] [place] [address] Sep, [place] [address] [place] [id number] [address] [place] [address] Sep, [place] [address] [place] [id number] [address] [place] [phone] Jun, [place] [address] [place] [id number] [address] [place] [address] Jun, [place] [address] [place] [id number] [address] [place] [address] May, [place] [address] [place] [id number] [address] [place] [address] Apr, [place] [address] [place] [id number] [address] [place] [address] Feb, [place] [address] [place] [id number] [address] [place] [address] Feb, COPD exacerbation J44.1 and Acute upper respiratory infection J06.9 [place] [address] [id number] [address] [place] [address] Feb, [facility] [address] [id number] [address] [place] [phone] Feb, [facility] [address] [id number] [address] [place] [address] Feb, [facility] [address] [id number] [address] [place] [address] Feb, [facility] [address] [id number] [address] [place] [address] Jan, Left hip pain M25.552 [facility] [address] [id number] [address] [place] [address] Jan, Essential hypertension I10 ; Chronic pain syndrome G89.4 ; Type 2 diabetes mellitus without complication E11.9 and Hyperlipidemia, unspecified hyperlipidemia E78.5 [facility] [address] [id number] [address] [place] [address] Jul, [facility] [address] [id number] [address] [place] [address] Jul, [facility] [address] [id number] [address] [place] [address] Jul, [facility] [address] [id number] [address] [place] [phone] Jun, [facility] [address] [id number] [address] [place] [phone] Jun, [facility] [address] [id number] [address] [place] [address] Jun, [facility] [address] [id number] [address] [place] [phone] Jun, [facility] [address] [id number] [address] [place] [phone] Jun, [facility] [address] [id number] [address] [place] [address], [place] [address] 20 Jun, 2014 [facility] [address] [id number] [address] [place] [address], [place] [address] 20 Jun, 2014 [facility] [address] [id number] [address] [place] [address], [place] [address] 19 Jun, 2014 [facility] [address] [id number] [address] [place] [address], [place] [address] 18 Jun, 2014 [facility] [address] [id number] [address] [place] [address], [place] [address] 18 Jun, 2014 [facility] [address] [id number] [address] [place] [address], [place] [address] Jun, [facility] [address] [id number] [address] [place] [address], [place] [address] Jun, [facility] [address] [id number] [address] [place] [address], [place] [address] Apr, [facility] [address] [id number] [address] [place] [address], [place] [address] Apr, [facility] [address] [id number] [address] [place] [address], [place] [address] Apr, [facility] [address] [id number] [address] [place] [address], [place] [address] Apr, [facility] [address] [id number] [address] [place] [address], [place] [address] Apr, [facility] [address] [id number] [address] [place] [address], [place] [address] Apr, [facility] [address] [id number] [address] [place] [address], [place] [address] Apr, [facility] [address] [id number] [address] [place] [address], [place] [address] Apr, [facility] [address] [id number] [address] [place] [address], [place] [address] Mar, [facility] [address] [id number] [address] [place] [address], [place] [address] Mar, [facility] [address] [id number] [address] [place] [address], [place] [address] Mar, [facility] [address] [id number] [address] [place] [address], [place] [address] Mar, [facility] [address] [id number] [address] [place] [address], [place] [address] Mar, [facility] [address] [id number] [address] [place] [address], [place] [address] Mar, [facility] [address] [id number] [address] [place] [address], [place] [address] 15 Mar, 2014 [facility] [address] [id number] [address] [place] [address], [place] [address] Mar, [facility] [address] [id number] [address] [place] [address], [place] [address] Mar, [facility] [address] [id number] [address] [place] [address], [place] [address] Mar, [facility] [address] [id number] [address] [place] [address], [place] [address] Mar, [facility] [address] [id number] [address] [place] [address], [place] [address] Mar, [facility] [address] [id number] [address] [place] [address], [place] [address] Mar, [facility] [address] [id number] [address] [place] [address], [place] [address] Feb, [facility] [place] [facility] [address] [id number] [address] [place] [address], [place] [address] Feb, [facility] [place] [facility] [address] [id number] [address] [place] [address], [place] [address] Feb, [facility] [place] [facility] [address] [id number] [address] [place] [address], [place] [address] Feb, [facility] [place] [facility] [address] [id number] [address] [place] [address], [place] [address] Feb, [facility] [place] [facility] [address] [id number] [address] [place] [address], [place] [address] Feb, [facility] [place] [facility] [address] [id number] [address] [place] [address], [place] [address] Feb, [facility] [place] [facility] [address] [id number] [address] [place] [address], [place] [address] Feb, [facility] [place] [facility] [address] [id number] [address] [place] [address], [place] [address] Jan, [facility] [place] [facility] [address] [id number] [address] [place] [address], [place] [address] Jan, [facility] [place] [facility] [address] [id number] [address] [place] [address], [place] [address] Jan, [facility] [place] [facility] [address] [id number] [address] [place] [address], [place] [address] Jan, [facility] [place] [facility] [address] [id number] [address] [place] [address], [place] [address] Jan, [facility] [place] [facility] [address] [id number] [address] [place] [address], [place] [address] Jan, [facility] [place] [facility] [address] [id number] [address] [place] [address], [place] [address] Jan, [facility] [place] [facility] [address] [id number] [address] [place] [address], [place] [address] Jan, [facility] [place] [address] [id number] [address] [place] [address], [place] [address] Jan, [facility] [address] [id number] [address] [place] [address], [place] [address] 30 Dec, 2013 [facility] [address] [id number] [address] [place] [address], [place] [address] 30 Dec, 2013 [facility] [address] [id number] [facility] [place] [address] 26 Dec, 2013 [facility] [address] [id number] [address] [place] [address], [place] [address] 26 Dec, 2013 [facility] [address] [id number] [address] [place] [address], [place] [address] 16 Dec, 2013 [facility] [address] [id number] [address] [place] [address], [place] [address] 16 Dec, 2013 [facility] [address] [id number] [address] [place] [address], [place] [address] 08 Dec, 2013 [facility] [address] [id number] [address] [place] [address], [place] [address] 08 Dec, 2013 [facility] [address] [id number] [address] [place] [address], [place] [address] Dec, 2013 [facility] [address] [id number] [address] [place] [address], [place] [address] Dec, 2013 [facility] [address] [id number] [address] [place] [address], [place] [address] Nov, [facility] [address] [id number] [address] [place] [address], [place] [address] Nov, [facility] [address] [id number] [address] [place] [address], [place] [address] Nov, [facility] [address] [id number] [address] [place] [address], [place] [address] Nov, [facility] [address] [id number] [address] [place] [address], [place] [address] Nov, [facility] [address] [id number] [address] [place] [address], [place] [address] Nov, [facility] [address] [id number] [address] [place] [address], [place] [address] Nov, [facility] [address] [id number] [address] [place] [address], [place] [address] Nov, [facility] [address] [id number] [address] [place] [address], [place] [address] Nov, [facility] [address] [id number] [address] [place] [address], [place] [address] Nov, [facility] [address] [id number] [address] [place] [address], [place] [address] Nov, [facility] [address] [id number] [address] [place] [address], [place] [address] Nov[facility] [facility] [address] [id number] [address] [place] [address], [place] [address] Nov, [facility] [address] [id number] [address] [place] [address], [place] [address] Oct, [facility] [address] [id number] [address] [place] [address], [place] [address] Oct, [facility] [address] [id number] [address] [place] [address], [place] [address] Oct, [facility] [address] [id number] [address] [place] [address], [place] [address] Oct, [facility] [address] [id number] [address] [place] [address], [place] [address] Oct, [facility] [address] [id number] [address] [place] [address], [place] [address] Oct, [facility] [address] [id number] [address] [place] [address], [place] [address] Sep, [facility] [address] [id number] [address] [place] [address], [place] [address] Sep, [facility] [address] [id number] [address] [place] [address], [place] [address] Sep, [facility] [address] [id number] [address] [place] [address], [place] [address] Sep, [facility] [address] [id number] [address] [place] [address], [place] [address] Sep, [facility] [address] [id number] [address] [place] [address], [place] [address] Sep, [facility] [address] [id number] [address] [place] [address], [place] [address] Sep, [facility] [address] [id number] [address] [place] [address], [place] [address] Sep, [facility] [address] [id number] [address] [place] [address], [place] [address] Sep, [facility] [address] [id number] [address] [place] [address], [place] [address] Sep, [facility] [address] [id number] [address] [place] [address], [place] [address] Sep, [facility] [address] [id number] [address] [place] [address], [place] [address] Sep, [facility] [address] [id number] [address] [place] [address], [place] [address] August, [facility] [address] [id number] [address] [place] [address], [place] [address] August, [facility] [address] [id number] [address] [place] [address], [place] [address] Jul, [facility] [address] [id number] [address] [place] [address], [place] [address] Jul, [facility] [address] [id number] [address] [place] [address], [place] [address] Jul, [facility] [address] [id number] [address] [place] [address], [place] [address] Jul, [facility] [address] [id number] [address] [place] [address], [place] [address] Jul, [facility] [address] [id number] [address] [place] [address], [place] [address] Jul, [facility] [address] [id number] [facility] [place] [address] 16 Jul, 2013 [facility] [address] [id number] [facility] [place] [address] 16 Jul, 2013 [facility] [address] [id number] [facility] [place] [address] 15 Jul, 2013 [facility] [address] [id number] [address] [place] [address], [place] [address] Jul, [facility] [address] [id number] [address] [place] [address], [place] [address] Jul, [facility] [address] [id number] [address] [place] [address], [place] [address] Jun, [facility] [address] [id number] [address] [place] [address], [place] [address] Jun, [facility] [address] [id number] [address] [place] [address], [place] [address] Jun, [facility] [address] [id number] [address] [place] [address], [place] [address] Jun, [facility] [address] [id number] [address] [place] [address], [place] [address] Jun, [facility] [address] [id number] [address] [place] [address], [place] [address] Jun, [facility] [address] [id number] [address] [place] [address], [place] [address] Jun, [facility] [address] [id number] [address] [place] [address], [place] [address] Jun, [facility] [address] [id number] [address] [place] [address], [place] [address] May, [facility] [address] [id number] [address] [place] [address], [place] [address] May, [facility] [address] [id number] [address] [place] [address], [place] [address] May, [facility] [address] [id number] [address] [place] [address], [place] [address] May, [facility] [address] [id number] [address] [place] [address], [place] [address] May, [facility] [address] [id number] [address] [place] [address], [place] [address] May, [facility] [address] [id number] [address] [place] [address], [place] [address] May, [facility] [address] [id number] [address] [place] [address], [place] [address] May, [facility] [address] [id number] [address] [place] [address], [place] [address] May, [facility] [address] [id number] [address] [place] [address], [place] [address] May, [facility] [address] [id number] [address] [place] [address], [place] [address] May, [facility] [address] [id number] [address] [place] [address], [place] [address] May, [facility] [address] [id number] [address] [place] [address], [place] [address] May, [facility] [address] [id number] [address] [place] [address], [place] [address] Apr, [facility] [address] [id number] [address] [place] [address], [place] [address] Apr, [facility] [address] [id number] [address] [place] [address], [place] [address] Apr, [facility] [address] [id number] [address] [place] [address], [place] [address] Apr, [facility] [address] [id number] [address] [place] [address], [place] [address] Apr, [facility] [address] [id number] [address] [place] [address], [place] [address] Apr, [facility] [address] [id number] [address] [place] [address], [place] [address] Apr, [facility] [address] [id number] [address] [place] [address], [place] [address] Apr, [facility] [address] [id number] [address] [place] [address], [place] [address] Apr, [facility] [address] [id number] [address] [place] [address], [place] [address] Apr, [facility] [address] [id number] [address] [place] [address], [place] [address] Apr, [facility] [address] [id number] [address] [place] [address], [place] [address] Apr, [facility] [address] [id number] [address] [place] [address], [place] [address] Apr, [facility] [address] [id number] [address] [place] [address], [place] [address] Apr, [facility] [address] [id number] [address] [place] [address], [place] [address] Apr, [facility] [address] [id number] [address] [place] [address], [place] [address] Mar, [facility] [address] [id number] [address] [place] [address], [place] [address] Mar, [facility] [address] [id number] [address] [place] [address], [place] [address] Mar, [facility] [address] [id number] [address] [place] [address], [place] [address] Mar, [facility] [address] [id number] [address] [place] [address], [place] [address] Mar, [facility] [address] [id number] [address] [place] [address], [place] [address] 20 Mar, 2013 [facility] [address] [id number] [address] [place] [address], [place] [address] 17 Mar, 2013 [facility] [address] [id number] [address] [place] [address], [place] [address] 17 Mar, 2013 [facility] [address] [id number] [address] [place] [address], [place] [address] Mar, [facility] [address] [id number] [address] [place] [address], [place] [address] Mar, [facility] [address] [id number] [address] [place] [address], [place] [address] Mar, [facility] [address] [id number] [address] [place] [address], [place] [address] Mar, [facility] [address] [id number] [address] [place] [address], [place] [address] Feb, [facility] [address] [id number] [address] [place] [address], [place] [address] Feb, [facility] [address] [id number] [address] [place] [address], [place] [address] Feb, [facility] [address] [id number] [address] [place] [address], [place] [address] Feb, [facility] [address] [id number] [address] [place] [address] Feb, [facility] [address] [id number] [address] [place] [address] Feb, [facility] [address] [id number] [address] [place] [address], [place] [address] Feb, [facility] [address] [id number] [address] [place] [address] Feb, [facility] [address] [id number] [address] [place] [address], [place] [address] Jan, [facility] [address] [id number] [address] [place] [address], [place] [address] Jan, [facility] [address] [id number] [address] [place] [address], [place] [address] Jan, [facility] [address] [id number] [address] [place] [address], [place] [address] Jan, [facility] [address] [id number] [address] [place] [address], [place] [address] Jan, [facility] [address] [id number] [address] [place] [address], [place] [address] Jan, [facility] [address] [id number] [address] [place] [address], [place] [address] Jan, [facility] [address] [id number] [address] [place] [address], [place] [address] Dec, [facility] [address] [id number] [address] [place] [address], [place] [address] Dec, [facility] [address] [id number] [address] [place] [address], [place] [address] Dec, [facility] [address] [id number] [address] [place] [address], [place] [address] Dec, [facility] [address] [id number] [address] [place] [address], [place] [address] Dec, [facility] [address] [id number] [address] [place] [address], [place] [address] Nov, [facility] [address] [id number] [address] [place] [address], [place] [address] Nov, [facility] [address] [id number] [address] [place] [address], [place] [address] Nov, [facility] [address] [id number] [address] [place] [address], [place] [address] Nov, [facility] [address] [id number] [address] [place] [address], [place] [address] Nov, [facility] [address] [id number] [address] [place] [address], [place] [address] Nov, [facility] [address] [id number] [address] [place] [address], [place] [address] Nov, [facility] [address] [id number] [address] [place] [address], [place] [address] Oct, [facility] [address] [id number] [address] [place] [address], [place] [address] Oct, [facility] [address] [id number] [address] [place] [address], [place] [address] Oct, [facility] [address] [id number] [address] [place] [address], [place] [address] Oct, [facility] [address] [id number] [address] [place] [address], [place] [address] Oct, [facility] [address] [id number] [address] [place] [address], [place] [address] Oct, [facility] [address] [id number] [address] [place] [address], [place] [address] Oct, [facility] [address] [id number] [address] [place] [address], [place] [address] Oct, [facility] [address] [id number] [address] [place] [address], [place] [address] Sep, [facility] [address] [id number] [address] [place] [address], [place] [address] Sep, [facility] [address] [id number] [address] [place] [address], [place] [address] Sep, [facility] [address] [id number] [address] [place] [address], [place] [address] Sep, [facility] [address] [id number] [address] [place] [address], [place] [address] Sep, [facility] [address] [id number] [address] [place] [address], [place] [address] Sep, [facility] [address] [id number] [address] [place] [address], [place] [address] August, [facility] [address] [id number] [address] [place] [address], [place] [address] August, [facility] [address] [id number] [address] [place] [address], [place] [address] August, [facility] [address] [id number] [address] [place] [address], [place] [address] August, [facility] [address] [id number] [address] [place] [address], [place] [address] August, [facility] [address] [id number] [address] [place] [address], [place] [address] Jul, [facility] [address] [id number] [address] [place] [address], [place] [address] Jul, [facility] [address] [id number] [address] [place] [address], [place] [address] Jul, [facility] [address] [id number] [address] [place] [address], [place] [address] 15 Jul, 2012 [facility] [address] [id number] [address] [place] [address], [place] [address] Jul, [facility] [address] [id number] [address] [place] [address], [place] [address] 05 Jul, 2012 [facility] [address] [id number] [address] [place] [address], [place] [address] 14 Jun, 2012 [facility] [address] [id number] [address] [place] [address], [place] [address] 13 Jun, 2012 [facility] [address] [id number] [address] [place] [address], [place] [address] 07 Jun, 2012 [facility] [address] [id number] [address] [place] [address], [place] [address] 07 Jun, 2012 [facility] [address] [id number] [address] [place] [address], [place] [address] 05 Jun, 2012 [facility] [address] [id number] [address] [place] [address], [place] [address] 19 May, 2012 [facility] [address] [id number] [address] [place] [address], [place] [address] 13 May, 2012 [facility] [address] [id number] [address] [place] [address], [place] [address] May, [facility] [address] [id number] [address] [place] [address], [place] [address] 23 Apr, 2012 [facility] [address] [id number] [address] [place] [address], [place] [address] Apr, [facility] [address] [id number] [address] [place] [address], [place] [address] Mar, [facility] [address] [id number] [address] [place] [address], [place] [address] Mar, [facility] [address] [id number] [address] [place] [address], [place] [address] Mar, [facility] [address] [id number] [address] [place] [address], [place] [address] Mar, [facility] [address] [id number] [address] [place] [address], [place] [address] 17 Mar, 2012 [facility] [address] [id number] [address] [place] [address], [place] [address] Mar, [facility] [address] [id number] [address] [place] [address], [place] [address] Feb, [facility] [address] [id number] [address] [place] [address], [place] [address] Feb, [facility] [address] [id number] [address] [place] [address], [place] [address] 13 Feb, 2012 [facility] [address] [id number] [address] [place] [address], [place] [address] Jan, [facility] [address] [id number] [address] [place] [address], [place] [address] 29 Jan, 2012 [facility] [address] [id number] [address] [place] [address], [place] [address] Jan, [facility] [address] [id number] [address] [place] [address], [place] [address] Jan, [facility] [address] [id number] [address] [place] [address], [place] [address] Jan, [facility] [address] [id number] [address] [place] [address], [place] [address] Jan, [facility] [address] [id number] [address] [place] [address], [place] [address] Jan, [facility] [address] [id number] [address] [place] [address], [place] [address] Jan, [facility] [address] [id number] [address] [place] [address], [place] [address] 16 Jan, 2012 [facility] [address] [id number] [address] [place] [address], [place] [address] 18 Dec, 2011 [facility] [address] [id number] [address] [place] [address], [place] [address] 13 Dec, 2011 [facility] [address] [id number] [address] [place] [address], [place] [address] 11 Dec, 2011 [facility] [address] [id number] [address] [place] [address], [place] [address] Nov, [facility] [address] [id number] [address] [place] [address], [place] [address] Nov, [facility] [address] [id number] [address] [place] [address], [place] [address] 16 Nov, 2011 [facility] [address] [id number] [address] [place] [address], [place] [address] Oct, [facility] [address] [id number] [address] [place] [address], [place] [address] 06 Oct, 2011 [facility] [address] [id number] [address] [place] [address], [place] [address] Sep, [facility] [address] [id number] [address] [place] [address], [place] [address] Sep, [facility] [address] [id number] [address] [place] [address], [place] [address] Sep, [facility] [address] [id number] [address] [place] [address], [place] [address] Sep, [facility] [address] [id number] [address] [place] [address], [place] [address] Sep, [facility] [address] [id number] [address] [place] [address], [place] [address] August, [facility] [address] [id number] [address] [place] [address], [place] [address] August, [facility] [address] [id number] [address] [place] [address], [place] [address] August, [facility] [address] [id number] [address] [place] [address], [place] [address] August, [facility] [address] [id number] [address] [place] [address], [place] [address] August, [facility] [address] [id number] [address] [place] [address], [place] [address] August, [facility] [address] [id number] [address] [place] [address], [place] [address] August, [facility] [address] [id number] [address] [place] [address], [place] [address] August, [facility] [address] [id number] [address] [place] [address], [place] [address] August, [facility] [address] [id number] [address] [place] [address], [place] [address] Jul, [facility] [address] [id number] [address] [place] [address], [place] [address] 19 Jul, 2011 [facility] [address] [id number] [address] [place] [address], [place] [address] 10 Jul, 2011 [facility] [address] [id number] [address] [place] [address], [place] [address] 04 Jul, 2011 [facility] [address] [id number] [address] [place] [address], [place] [address] 27 Jun, 2011 [facility] [address] [id number] [address] [place] [address], [place] [address] 13 Jun, 2011 [facility] [address] [id number] [address] [place] [address], [place] [address] 13 Jun, 2011 [facility] [address] [id number] [address] [place] [address], [place] [address] 27 May, 2011 [facility] [address] [id number] [address] [place] [address], [place] [address] 24 May, 2011 [facility] [address] [id number] [address] [place] [address], [place] [address] 20 May, 2011 [facility] [address] [id number] [address] [place] [address], [place] [address] 16 May, 2011 [facility] [address] [id number] [address] [place] [address], [place] [address] 15 May, 2011 [facility] [address] [id number] [address] [place] [address], [place] [address] 14 May, 2011 [facility] [address] [id number] [address] [place] [address], [place] [address] 10 May, 2011 [facility] [address] [id number] [address] [place] [address], [place] [address] 09 May, 2011 [facility] [address] [id number] [address] [place] [address], [place] [address] 02 May, 2011 [facility] [address] [id number] [address] [place] [address], [place] [address] 30 Apr, 2011 [facility] [address] [id number] [address] [place] [address], [place] [address] Apr, [facility] [address] [id number] [address] [place] [address], [place] [address] Apr, [facility] [address] [id number] [address] [place] [address], [place] [address] Apr, [facility] [address] [id number] [address] [place] [address], [place] [address] 16 Apr, 2011 [facility] [address] [id number] [address] [place] [address], [place] [address] Apr, [facility] [address] [id number] [address] [place] [address], [place] [address] Apr, [facility] [address] [id number] [address] [place] [address], [place] [address] Apr, [facility] [address] [id number] [address] [place] [address], [place] [id number] Apr, [facility] [address] [id number] [address] [place] [address], [place] [address] Apr, [facility] [address] [id number] [address] [place] [address], [place] [address] Apr, [facility] [address] [id number] [address] [place] [address], [place] [address] Mar, [facility] [address] [id number] [address] [place] [address], [place] [address] Mar, [facility] [address] [id number] [address] [place] [address], [place] [address] Mar, [facility] [address] [id number] [address] [place] [address], [place] [id number] 05 Mar, 2011 [facility] [address] [id number] [address] [place] [address], [place] [address] Feb, [facility] [address] [facility] [id number] [address] [place] [id number] Feb, [facility] [address] [facility] [id number] [address] [place] [id number] Jan, [facility] [address] [facility] [id number] [address] [place] [id number] Nov, IMMUNIZATIONS No Known Immunizations SOCIAL HISTORY Never Assessed REASON FOR VISIT PLAN OF CARE VITAL SIGNS Height 67 in 2013-05-10 Weight 199.18 lbs 2013-05-10 Temperature 97.9 degrees Fahrenheit 2013-05-10 Heart Rate 88 bpm 2013-05-10 Respiratory Rate 20 2013-05-10 Blood pressure systolic 128 mmHg 2013-05-10 Blood pressure diastolic 72 mmHg 2013-05-10 MEDICATIONS Unknown Medications RESULTS No Results PROCEDURES [...] eye laser treatment for glaucoma Hospitalization History [facility]- Right side and back pain related to fall, hurts to breathe (ED at 7 pm) 06/07/2017 Hospitalization History [facility] [place]I [place], [place]- Anxiety ( went to ED at 1200) 06/07/2017 Hospitalization History COPD exacerbation - Gerald Pizano 2017 Hospitalization History Blood clot, port placement - Gerald Pizano 09/2017
--- NOTE | 2019-09-01 14:25 | Diagnostic Imaging Report ---
INDICATION: Knee pain TECHNIQUE: 3 views of the right knee CORRELATION STUDY: None FINDINGS: The joint spaces are maintained. The articular surfaces are smooth and preserved. There is no acute bony abnormality. Mild diffuse bony demineralization. IMPRESSION: 1. Negative for acute bony abnormality of the knee. Dictated by: Dictated on workstation # [id number]
--- OUTSIDE RECORDS SUMMARY | 2019-09-01 14:25 | XMS REPORT ---
Author Author RADHA Sophianaren OLIVA [facility] Address [address] [place] [address] Care Team Providers Care Basic Sciences Professor Name Role Phone RADHAGASPER MCPHERSONY Unavailable PROBLEMS Type Condition ICD9-CM Code KXV25-SX Code Onset Dates Condition S tatus SNOMED Code Problem Proteinuria R80.9 Active 01918638 Problem Essential hypertension I10 Active 10035107 Problem Anxiety F41.9 Active 82133006 Problem Type 2 diabetes mellitus without complication E11. 9 Active 28351854 Problem Hyperlipidemia, unspecified hyperlipidemia E78.5 Active 87485160 Problem Major depressive disorder, recurrent episode, un specified severity F33.9 Active 18649021 Problem Sciatica, unspecified laterality M54.30 Active 93027152 Problem Acute cystitis with hematuria N30.01 Active 43070129 Problem Chronic pain syndrome G89.4 Active 245272483 Problem Exacerbation of systemic lupus M32.9 Active 09536862 Problem Generalized abdominal pain R10.84 Act sree 761614187 Problem Carpal tunnel syndrome, right upper limb G56.01 Active 44283891 Problem History of small bowel obstruction Z87.19 Active 648199021 Problem History of pulmonary embolism Z86.711 Active 602398365 Problem Presence of IVC filter Z95.828 Active 373699848 Problem Port catheter in place Z95.828 Active 328108106 Problem Gastroesophageal reflux disease, esophagitis pre sence not specified K21.9 Active 242332903 Problem Chronic pancreatitis, unspecified pancreatitis type K86.1 Active 739429363 Problem Hypothyroidism, unspecified type E03.9 Active 37995994 Problem Vitamin D deficiency E55.9 Active 02593699 Problem Nausea R11.0 Active 059667732 Problem Pneumonia due to infectious organism, unspecified laterality, unspecified part of lung J18.9 Active 312 387151 Problem Gastroesophageal reflux disease without esophagitis K21.9 Active 471083832 Problem Violation of controlled substance agreement Z91.14 Active 660577588 Problem Obstructive sleep apnea G47.33 Active 42019962 Problem Hypertension, benign I10 Active 93507377 Problem Venous insufficiency I87.2 Active 82614420 Problem Chronic obstructive pulmonary disease, unspecified COPD ty pe J44.9 Active 63451864 Problem Tobacco abuse counseling Z71.6 Activ e 50485067 Problem 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 A ctive 604734185 Problem Opiate dependence, continuous F11.20 Active 841616215 Problem Cannabis abuse with physiological dependence F12.1 0 Active 61134003 ALLERGIES No Information ENCOUNTERS Encounter Location Date Diagnosis [facility] [address] [address] May, [place] [address] [address] Apr, Tobacco abuse Z72.0 ; Hypertension, stefan gn I10 and Tobacco abuse counseling Z71.6 [place] [address] [address] Sep, [place] [address] [address] Sep, [facility] [address] [address] Sep, Essential hypertension I10 [place] [address] [address] Sep, [facility] [address] [address] Sep, [place] [address] [address] Sep, Neck mass R22.1 [facility] [address] [address] August, Neck mass R22.1 [facility] [address] [facility] [id number] [address] [place] [address] Feb, Left foot pain M79.672 [facility] [address] [address] Jun, Chronic pain syndrome G89.4 [facility] [id number] [id number] May, [facility] [address] [place] [id number] [place] [address] May, [facility] [address] [place] [id number] [place] [address] May, Chronic pain syndrome G89.4 [facility] [address] [place] [id number] [place] [address] May, [facility] [address] [facility] [id number] [address] [place] [address] 10 May, 2017 Encounter for immunization Z 23 and Laceration of left index finger without foreign body without damage to nail, initial encounter S61.211A [place] [address] [address] 09 May, 2017 Chronic pain syndrome G89.4 [facility] [address] [place] [id number] [place] [address] May, [place] [address] [address] Apr, Cannabis abuse with physiological depend ence F12.10 ; Violation of controlled substance agreement Z91.14 and Opiate dependence, continuous F11.20 [place] [address] [place] [id number] [place] [address] Apr, Type 2 diabetes mellitus without complic ation E11.9 [facility] [address] [place] [id number] [place] [address] Apr, [place] [address] [address] Apr, Chronic pain syndrome G89.4 [facility] [address] [place] [id number] [place] [address] Apr, Viral syndrome B34.9 [facility] [address] [address] Apr, [facility] [address] [address] Mar, Chronic pain syndrome G89.4 [facility] [address] [address] Mar, [facility] [address] [address] Mar, [facility] [address] [address] Feb, Essential hypertension I10 ; Chronic nataly n syndrome G89.4 ; Hyperlipidemia, unspecified hyperlipidemia E78.5 ; 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 and Encounter for immunization Z23 [place] [address] [address] Feb, Chronic pain syndrome G89.4 [facility] [address] [address] Jan, Chronic pain syndrome G89.4 [facility] [address] [address] Jan, [facility] [address] [address] Jan, Bronchitis J40 ; Port catheter in place Z95.828 and Chronic pain syndrome G89.4 [facility] [id number] [id number] Jan, [facility] [address] [address] 22 Dec, 2016 Chronic pain syndrome G89.4 [facility] [address] [address] 18 Dec, 2016 Chronic pain syndrome G89.4 [facility] [address] [address] 08 Dec, 2016 [facility] [address] [address] Nov, [facility] [address] [address] Nov, Chronic pain syndrome G89.4 [facility] [address] [address] Oct, Chronic pain syndrome G89.4 [facility] [address] [address] Oct, [facility] [address] [address] Sep, Chronic pain syndrome G89.4 [facility] [address] [address] Sep, Exacerbation of systemic lupus M32.9 [facility] [address] [address] Sep, [facility] [address] [address] Sep, [facility] [address] [address] Sep, Nausea R11.0 [facility] [address] [address] August, Chronic pain syndrome G89.4 [facility] [address] [address] August, [facility] [address] [address] August, Chronic pain syndrome G89.4 [facility] [address] [address] Jul, Pneumonia due to infectious organism, un specified laterality, unspecified part of lung J18.9 and Tobacco abuse counseling Z71.6 [facility] [address] [address] Jul, Chronic pain syndrome G89.4 [facility] [address] [address] Jun, Essential hypertension I10 [facility] [address] [address] Jun, Pneumonia due to infectious organism, un specified laterality, unspecified part of lung J18.9 [place] [address] [address] Jun, Chronic pain syndrome G89.4 [place] [address] [address] May, Essential hypertension I10 ; Type 2 diab etes mellitus without complication E11.9 ; Venous insufficiency [...] and Gastroesophageal reflux disease without esophagitis K21.9 [place] [address] [address] Apr, [address] [address] Apr, Pneumonia due to infectious organism, un specified laterality, unspecified part of lung J18.9 and Nausea R11.[address] [address] Apr, Essential hypertension I10 ; Chronic nataly n syndrome G89.4 ; Type 2 diabetes mellitus without complication E11.9 ; Hyperlipidemia, unspecified hyperlipidemia E78.5 ; Major depressive disorder, recurrent episode, unspecified severity F33.9 ; Sciatica, unspecified laterality M54.30 ; Chronic obstructive pulmonary disease, unspecified COPD type J44.9 ; Pneumonia due to infectious organism, unspecified laterality, unspecified part of lung J18.9 and Nausea R11.0 [facility] [address] [facility] [id number] [address] [place] [address] Mar, [address] [address] Mar, [place] [address] [address] Mar, [place] [address] [address] Mar, Anxiety F41.9 and Major depressive disor rita, recurrent episode, unspecified severity F33.9 [place] [address] [address] Mar, [place] [address] [address] Mar, [place] [address] [address] Mar, Generalized abdominal pain R10.84 ; Acut e cystitis with hematuria N30.01 and Essential hypertension I10 [facility] [address] [place] [address] Mar, Sore throat J02.9 and Exacer bation of systemic lupus M32.9 [place] [address] [address] Feb, Type 2 diabetes mellitus without complic ation E11.9 ; Essential hypertension I10 ; Chronic [...] reflux disease, esophagitis presence not specified K21.9 [place] [address] [address] Feb, [place] [address] [address] Jan, [facility] [place] [id number] [place] [address] Jan, Right arm pain M79.[address] of right wrist, initial encounter S66.911A [place] [address] [address] Jan, [facility] [address] [facility] [id number] [address] [place] [address] 30 Dec, 2015 Generalized abdominal pain R 10.84 [place] [address] [address] Dec, Adenopathy R59.1 [place] [address] [address] 19 Dec, 2015 Bronchitis J40 [place] [address] [address] 14 Dec, 2015 [place] [address] [address] Dec, Essential hypertension I10 [place] [address] [address] Nov, [place] [address] [address] Nov, [place] [address] [address] Nov, Essential hypertension I10 ; Hyperlipide martha, unspecified hyperlipidemia E78.5 ; Proteinuria R80.9 ; [...] Type 2 diabetes mellitus without complication E11.9 [place] [address] [address] Nov, [facility] [address] [address] Oct, Type 2 diabetes mellitus without complic ation E11.9 ; Essential hypertension I10 ; Other viral warts B07.8 ; [place] or callus L84 and Hyperlipidemia, unspecified hyperlipidemia E78.5 [facility] [address] [address] Sep, [facility] [address] [address] Sep, [facility] [address] [address] Jun, [facility] [address] [address] Jun, [facility] [address] [address] May, [facility] [address] [address] Apr, [facility] [address] [address] Feb, [facility] [address] [address] Feb, COPD exacerbation J44.1 and Acute upper respiratory infection J06.9 [facility] [address] [address] Feb, [facility] [address] [address] Feb, [facility] [address] [address] Feb, [facility] [address] [address] Feb, [facility] [address] [address] Jan, Left hip pain M25.552 [facility] [address] [id number] [place] [address] Jan, Essential hypertension I10 ; Chronic nataly n syndrome G89.4 ; Type 2 diabetes mellitus without complication E11.9 and Hyperlipidemia, unspecified hyperlipidemia E78.5 [facility] [address] [id number] [place] [address] 28 Jul, 2014 [facility] [address] [place] [id number] [place] [address] 14 Jul, 2014 [facility] [address] [id number] [place] [address] Jul, [facility] [address] [place] [id number] [place] [address] 25 Jun, 2014 [facility] [address] [place] [address] [id number] [place] [address] Jun, [facility] [address] [place] [id number] [place] [address] 24 Jun, 2014 [facility] [address] [place] [address] [id number] [place] [address] Jun, [facility] [address] [place] [address] [id number] [place] [address] Jun, [facility] [address] [place] [id number] [place] [address] Jun, [facility] [address] [place] [address] [id number] [place] [address] Jun, [facility] [address] [place] [id number] [place] [address] Jun, [facility] [address] [place] [id number] [place] [address] 18 Jun, 2014 [facility] [address] [place] [address] [id number] [place] [address] 18 Jun, 2014 [facility] [address] [place] [id number] [place] [address] Jun, [facility] [address] [place] [id number] [place] [address] Jun, [facility] [place] [facility] [address] [facility] [id number] [place] [address] Apr, [facility] [place] [facility] [address] [id number] [place] [address] Apr, [facility] [place] [facility] [address] [id number] [place] [address] Apr, [facility] [place] [facility] [address] [id number] [place] [address] Apr, [facility] [place] [facility] [address] [id number] [place] [address] Apr, [facility] [place] [facility] [address] [id number] [place] [address] Apr, [facility] [place] [facility] [address] [id number] [place] [address] Apr, [facility] [place] [facility] [address] [id number] [place] [address] Apr, [facility] [place] [facility] [address] [id number] [place] [address] Mar, [facility] [place] [facility] [address] [id number] [place] [address] Mar, [facility] [place] [facility] [address] [id number] [place] [address] Mar, [facility] [place] [facility] [address] [id number] [place] [address] Mar, [facility] [place] [facility] [address] [id number] [place] [address] Mar, [facility] [place] [facility] [address] [id number] [place] [address] 18 Mar, 2014 [facility] [place] [facility] [address] [id number] [place] [address] 15 Mar, 2014 [facility] [place] [facility] [address] [id number] [place] [address] Mar, [facility] [place] [facility] [address] [id number] [place] [address] Mar, [facility] [place] [facility] [address] [id number] [place] [address] Mar, [facility] [place] [facility] [address] [id number] [place] [address] Mar, [facility] [place] [facility] [address] [id number] [place] [address] Mar, [facility] [place] [facility] [address] [id number] [place] [address] Mar, [facility] [place] [facility] [address] [id number] [place] [address] Feb, [facility] [place] [facility] [address] [id number] [place] [address] Feb, [facility] [place] [facility] [address] [place] [id number] [place] [address] Feb, [facility] [place] [facility] [address] [id number] [place] [address] Feb, [facility] [place] [facility] [address] [id number] [place] [address] Feb, [facility] [place] [facility] [address] [id number] [place] [address] Feb, [facility] [place] [facility] [address] [id number] [place] [address] Feb, [facility] [place] [facility] [address] [id number] [place] [address] Feb, [facility] [place] [facility] [address] [id number] [place] [address] Jan, [facility] [place] [facility] [address] [place] [id number] [place] [address] Jan, [facility] [place] [facility] [address] [id number] [place] [address] Jan, [facility] [place] [facility] [address] [place] [id number] [place] [address] Jan, [facility] [place] [facility] [address] [id number] [place] [address] Jan, [facility] [place] [facility] [address] [id number] [place] [address] Jan, [facility] [place] [facility] [address] [id number] [place] [address] Jan, 2013 [facility] [place] [facility] [address] [id number] [place] [address] Jan, [facility] [place] [facility] [address] [facility] [id number] [place] [address] Jan, 2013 [facility] [place] [facility] [address] [id number] [place] [address] 30 Dec, 2013 [facility] [place] [facility] [address] [id number] [place] [address] 30 Dec, 2013 [facility] [place] [facility] [address] [id number] [place] [address] 26 Dec, 2013 [facility] [place] [facility] [address] [id number] [place] [address] 26 Sep, 2013 [facility] [place] [facility] [address] [id number] [place] [address] 16 Sep, 2013 [facility] [place] [facility] [address] [id number] [place] [address] 16 Sep, 2013 [facility] [place] [facility] [address] [id number] [place] [address] 08 Sep, 2013 [facility] [place] [facility] [address] [id number] [place] [address] 08 Sep, 2013 [facility] [place] [facility] [address] [id number] [place] [address] 04 Sep, 2013 [facility] [place] [facility] [address] [id number] [place] [address] 04 Dec, 2013 [facility] [place] [facility] [address] [id number] [place] [address] 29 Nov, 2013 [facility] [place] [facility] [address] [id number] [place] [address] Nov, [facility] [place] [facility] [address] [id number] [place] [address] Nov, [facility] [place] [facility] [address] [facility] [id number] [place] [address] Nov, [facility] [place] [facility] [address] [id number] [place] [address] Nov, [facility] [place] [facility] [address] [facility] [id number] [place] [address] Nov, [facility] [place] [facility] [address] [facility] [id number] [place] [address] Nov, [facility] [place] [facility] [address] [id number] [place] [address] Nov, [facility] [place] [facility] [address] [id number] [place] [address] Nov, [facility] [place] [facility] [address] [id number] [place] [address] Nov, [facility] [place] [facility] [address] [facility] [id number] [place] [address] Nov, [facility] [place] [facility] [address] [id number] [place] [address] Nov, [facility] [place] [facility] [address] [id number] [place] [address] Nov, [facility] [place] [facility] [address] [id number] [place] [address] Oct, [facility] [place] [facility] [address] [facility] [id number] [place] [address] Oct, [facility] [place] [facility] [address] [id number] [place] [address] Oct, [facility] [place] [facility] [address] [facility] [id number] [place] [address] Oct, [facility] [place] [facility] [address] [id number] [place] [address] Oct, [facility] [place] [facility] [address] [facility] [id number] [place] [address] Oct, [facility] [place] [facility] [address] [facility] [id number] [place] [address] Sep, [facility] [place] [facility] [address] [facility] [id number] [place] [address] Sep, [facility] [place] [facility] [address] [id number] [place] [address] Sep, [facility] [place] [facility] [address] [facility] [id number] [place] [address] Sep, [facility] [place] [facility] [address] [id number] [place] [address] Sep, [facility] [place] [facility] [address] [id number] [place] [address] Sep, [facility] [place] [facility] [address] [id number] [place] [address] Sep, [facility] [place] [facility] [address] [id number] [place] [address] Sep, [facility] [place] [facility] [address] [id number] [place] [address] Sep, [facility] [address] [id number] [place] [address] Sep, [facility] [address] [id number] [place] [address] Sep, [facility] [address] [id number] [place] [address] Sep, [facility] [address] [id number] [place] [address] August, [facility] [address] [id number] [place] [address] August, [facility] [address] [id number] [place] [address] Jul, [facility] [address] [id number] [place] [address] Jul, [facility] [address] [facility] [id number] [place] [address] Jul, [facility] [address] [facility] [id number] [place] [address] 24 Jul, 2013 [facility] [address] [id number] [place] [address] Jul, [facility] [address] [id number] [place] [address] Jul, [facility] [address] [facility] [id number] [place] [address] Jul, [facility] [address] [id number] [place] [address] 16 Jul, 2013 [facility] [address] [id number] [place] [address] Jul, [facility] [address] [id number] [place] [address] Jul, [facility] [address] [id number] [place] [address] Jul, [facility] [address] [id number] [place] [address] Jun, [facility] [address] [id number] [place] [address] Jun, [facility] [address] [id number] [place] [address] Jun, [facility] [address] [id number] [place] [address] Jun, [facility] [address] [id number] [place] [address] Jun, [facility] [address] [id number] [place] [address] Jun, [facility] [place] [facility] [address] [id number] [place] [address] Jun, [facility] [place] [facility] [address] [id number] [place] [address] Jun, [facility] [place] [facility] [address] [facility] [id number] [place] [address] May, [facility] [place] [facility] [address] [id number] [place] [address] May, [facility] [place] [facility] [address] [id number] [place] [address] May, [facility] [place] [facility] [address] [id number] [place] [address] May, [facility] [place] [facility] [address] [id number] [place] [address] May, [facility] [place] [facility] [address] [id number] [place] [address] May, [facility] [place] [facility] [address] [id number] [place] [address] May, [facility] [place] [facility] [address] [id number] [place] [address] May, [facility] [place] [facility] [address] [id number] [place] [address] May, [facility] [place] [facility] [address] [id number] [place] [address] May, [facility] [place] [facility] [address] [id number] [place] [address] May, [facility] [place] [facility] [address] [id number] [place] [address] May, [facility] [place] [facility] [address] [id number] [place] [address] May, [facility] [place] [facility] [address] [id number] [place] [address] Apr, [facility] [place] [facility] [address] [id number] [place] [address] Apr, [facility] [place] [facility] [address] [id number] [place] [address] Apr, [facility] [address] [facility] [id number] [place] [address] Apr, [facility] [place] [facility] [address] [facility] [id number] [place] [address] Apr, [facility] [place] [facility] [address] [id number] [place] [address] Apr, [facility] [place] [facility] [address] [id number] [place] [address] Apr, [facility] [place] [facility] [address] [facility] [id number] [place] [address] Apr, [facility] [place] [facility] [address] [id number] [place] [address] Apr, [facility] [place] [facility] [address] [id number] [place] [address] Apr, [facility] [place] [facility] [address] [id number] [place] [address] Apr, [facility] [place] [facility] [address] [id number] [place] [address] Apr, [facility] [place] [facility] [address] [id number] [place] [address] Apr, [facility] [place] [facility] [address] [id number] [place] [address] Apr, [facility] [place] [facility] [address] [id number] [place] [address] Apr, [facility] [place] [facility] [address] [facility] [id number] [place] [address] Mar, [facility] [place] [facility] [address] [facility] [id number] [place] [address] Mar, [facility] [place] [facility] [address] [id number] [place] [address] Mar, [facility] [place] [facility] [address] [id number] [place] [address] Mar, [facility] [place] [facility] [address] [id number] [place] [address] 20 Mar, 2013 [facility] [place] [facility] [address] [id number] [place] [address] 20 Mar, 2013 [facility] [place] [facility] [address] [id number] [place] [address] 17 Mar, 2013 [facility] [place] [facility] [address] [id number] [place] [address] 17 Mar, 2013 [facility] [place] [facility] [address] [id number] [place] [address] Mar, [facility] [place] [facility] [address] [id number] [place] [address] Mar, [facility] [place] [facility] [address] [id number] [place] [address] Mar, [facility] [place] [facility] [address] [id number] [place] [address] Mar, [facility] [place] [facility] [address] [id number] [place] [address] Feb, [facility] [place] [facility] [address] [id number] [place] [address] Feb, [facility] [place] [facility] [id number] [place] [address] Feb, [facility] [place] [facility] [address] [id number] [place] [address] Feb, [facility] [place] [facility] [address] [id number] [place] [address] Feb, [facility] [place] [facility] [address] [id number] [place] [address] Feb, [facility] [place] [facility] [id number] [place] [address] Feb, [facility] [place] [facility] [address] [id number] [place] [address] Feb, [facility] [place] [facility] [address] [id number] [place] [address] Jan, [facility] [place] [facility] [address] [id number] [place] [address] Jan, [facility] [place] [facility] [address] [id number] [place] [address] Jan, [facility] [place] [facility] [address] [id number] [place] [address] Jan, [facility] [place] [facility] [address] [id number] [place] [address] Jan, [facility] [place] [facility] [address] [facility] [id number] [place] [address] Jan, [facility] [place] [facility] [address] [id number] [place] [address] Jan, [facility] [place] [facility] [address] [id number] [place] [address] Dec, [facility] [place] [facility] [address] [id number] [place] [address] Dec, [facility] [place] [facility] [address] [id number] [place] [address] Dec, [facility] [place] [facility] [address] [id number] [place] [address] Dec, [facility] [place] [facility] [address] [id number] [place] [address] Dec, [facility] [place] [facility] [address] [id number] [place] [address] Nov, [facility] [place] [facility] [address] [id number] [place] [address] Nov, [facility] [place] [facility] [address] [facility] [id number] [place] [address] Nov, [facility] [place] [facility] [address] [id number] [place] [address] Nov, [facility] [place] [facility] [address] [id number] [place] [address] Nov, [facility] [place] [facility] [address] [id number] [place] [address] Nov, [facility] [place] [facility] [address] [facility] [id number] [place] [address] Nov, [facility] [place] [facility] [address] [facility] [id number] [place] [address] Oct, [facility] [place] [facility] [address] [facility] [id number] [place] [address] Oct, [facility] [place] [facility] [address] [facility] [id number] [place] [address] Oct, [facility] [place] [facility] [address] [facility] [id number] [place] [address] Oct, [facility] [place] [facility] [address] [id number] [place] [address] Oct, [facility] [place] [facility] [address] [id number] [place] [address] Oct, [facility] [place] [facility] [address] [id number] [place] [address] Oct, [facility] [place] [facility] [address] [facility] [id number] [place] [address] Oct, [facility] [place] [facility] [address] [id number] [place] [address] Sep, [facility] [place] [facility] [address] [id number] [place] [address] Sep, [facility] [place] [facility] [address] [id number] [place] [address] Sep, [facility] [place] [facility] [address] [facility] [id number] [place] [address] Sep, [facility] [place] [facility] [address] [facility] [id number] [place] [address] Sep, [facility] [place] [facility] [address] [facility] [id number] [place] [address] Sep, [facility] [place] [facility] [address] [id number] [place] [address] August, [facility] [place] [facility] [address] [id number] [place] [address] August, [facility] [address] [id number] [place] [address] August, [facility] [place] [facility] [address] [id number] [place] [address] August, [facility] [place] [facility] [address] [id number] [place] [address] August, [facility] [place] [facility] [address] [id number] [place] [address] Jul, [facility] [place] [facility] [address] [id number] [place] [address] Jul, [facility] [place] [facility] [address] [id number] [place] [address] Jul, [facility] [place] [facility] [address] [id number] [place] [address] Jul, [facility] [place] [facility] [address] [id number] [place] [address] Jul, [facility] [place] [facility] [address] [id number] [place] [address] Jul, [facility] [place] [facility] [address] [id number] [place] [address] 14 Jun, 2012 [facility] [place] [facility] [address] [id number] [place] [address] Jun, [facility] [place] [facility] [address] [id number] [place] [address] Jun, [facility] [place] [facility] [address] [id number] [place] [address] Jun, [facility] [place] [facility] [address] [id number] [place] [address] 05 Jun, 2012 [facility] [place] [facility] [address] [id number] [place] [address] May, [facility] [place] [facility] [address] [id number] [place] [address] 13 May, 2012 [facility] [place] [facility] [address] [id number] [place] [address] May, [facility] [place] [facility] [address] [id number] [place] [address] Apr, [facility] [place] [facility] [address] [id number] [place] [address] Apr, [facility] [place] [facility] [address] [id number] [place] [address] Mar, [facility] [place] [facility] [address] [id number] [place] [address] Mar, [facility] [place] [facility] [address] [id number] [place] [address] Mar, [facility] [place] [facility] [address] [id number] [place] [address] Mar, [facility] [place] [facility] [address] [id number] [place] [address] Mar, [facility] [place] [facility] [address] [id number] [place] [address] Mar, [facility] [place] [facility] [address] [id number] [place] [address] Feb, [facility] [place] [facility] [address] [id number] [place] [address] Feb, [facility] [place] [facility] [address] [id number] [place] [address] Feb, [facility] [place] [facility] [address] [id number] [place] [address] Jan, [facility] [place] [facility] [address] [id number] [place] [address] Jan, [facility] [place] [facility] [address] [id number] [place] [address] Jan, [facility] [place] [facility] [address] [id number] [place] [address] 24 Jan, 2012 [facility] [place] [facility] [address] [id number] [place] [address] 24 Jan, 2012 [facility] [place] [facility] [address] [facility] [id number] [place] [address] Jan, [facility] [place] [facility] [address] [id number] [place] [address] 17 Jan, 2012 [facility] [place] [facility] [address] [id number] [place] [address] 16 Jan, 2012 [facility] [place] [facility] [address] [id number] [place] [address] Jan, [facility] [place] [facility] [address] [id number] [place] [address] Dec, [facility] [place] [facility] [address] [id number] [place] [address] Dec, [facility] [place] [facility] [address] [id number] [place] [address] Dec, [facility] [place] [facility] [address] [id number] [place] [address] Nov, [facility] [place] [facility] [address] [id number] [place] [address] Nov, [facility] [place] [facility] [address] [id number] [place] [address] Nov, [facility] [place] [facility] [address] [id number] [place] [address] Oct, [facility] [place] [facility] [address] [id number] [place] [address] Oct, [facility] [place] [facility] [address] [id number] [place] [address] Sep, [facility] [place] [facility] [address] [id number] [place] [address] Sep, [facility] [place] [facility] [address] [id number] [place] [address] 18 Sep, 2011 [facility] [place] [facility] [address] [id number] [place] [address] Sep, [facility] [place] [facility] [address] [id number] [place] [address] Sep, [facility] [place] [facility] [address] [id number] [place] [address] August, [facility] [place] [facility] [address] [id number] [place] [address] August, [facility] [place] [facility] [address] [id number] [place] [address] August, [facility] [place] [facility] [address] [id number] [place] [address] August, [facility] [place] [facility] [address] [id number] [place] [address] August, [facility] [place] [facility] [address] [id number] [place] [address] August, [facility] [place] [facility] [address] [id number] [place] [address] August, [facility] [place] [facility] [address] [id number] [place] [address] August, [facility] [place] [facility] [address] [id number] [place] [address] August, [facility] [place] [facility] [address] [id number] [place] [address] Jul, [facility] [place] [facility] [address] [id number] [place] [address] Jul, [facility] [place] [facility] [address] [id number] [place] [address] Jul, [facility] [place] [facility] [address] [id number] [place] [address] 04 Jul, 2011 [facility] [place] [facility] [address] [id number] [place] [address] 27 Jun, 2011 [facility] [place] [facility] [address] [id number] [place] [address] Jun, [facility] [place] [facility] [address] [id number] [place] [address] Jun, [facility] [place] [facility] [address] [id number] [place] [address] 27 May, 2011 [facility] [place] [facility] [address] [id number] [place] [address] 24 May, 2011 [facility] [place] [facility] [address] [facility] [id number] [place] [address] 20 May, 2011 [facility] [place] [facility] [address] [id number] [place] [address] 16 May, 2011 [facility] [place] [facility] [address] [facility] [id number] [place] [address] 15 May, 2011 [facility] [place] [facility] [address] [id number] [place] [address] 14 May, 2011 [facility] [place] [facility] [address] [id number] [place] [address] 10 May, 2011 [facility] [place] [facility] [address] [id number] [place] [address] 09 May, 2011 [facility] [place] [facility] [address] [id number] [place] [address] 02 May, 2011 [facility] [place] [facility] [address] [id number] [place] [address] 30 Apr, 2011 [facility] [place] [facility] [address] [id number] [place] [address] Apr, [facility] [place] [facility] [address] [id number] [place] [address] Apr, [facility] [place] [facility] [address] [id number] [place] [address] 17 Apr, 2011 [facility] [place] [facility] [address] [id number] [place] [address] 16 Apr, 2011 [facility] [place] [facility] [address] [id number] [place] [address] 13 Apr, 2011 [facility] [place] [facility] [address] [id number] [place] [address] 09 Apr, 2011 [facility] [place] [facility] [id number] [place] [address] Apr, [facility] [id number] [place] [address] Apr, [facility] [address] [id number] [place] [address] Apr, [facility] [address] [address] Apr, [facility] [address] [address] Mar, [facility] [address] [address] Mar, [facility] [address] [address] Mar, [facility] [address] [address] Mar, [facility] [address] [address] Feb, [facility] [id number] [place] [address] Feb, [facility] [address] [address] Jan, [facility] [address] [address] Nov, IMMUNIZATIONS No Known Immunizations SOCIAL HISTORY [...] laser treatment for glaucoma Hospitalization History [facility] [place]- Right side and back pain related to fall, hurts to breathe (ED at 7 pm) 06/07/2017 Hospitalization History [facility] [place]- Anxiety ( went to ED at 1200) 06/07/2017 Hospitalization History COPD exacerbation - [facility] 2017 Hospitalization History Blood clot, port placement - [facility]ano 09/2017
--- OUTSIDE RECORDS SUMMARY | 2019-09-01 14:25 | XMS REPORT ---
Author Author RADHA Sophianaren OLIVA [facility] Address [address] [place] [address] Care Team Providers Care Washtub Worker Name Role Phone RADHAGASPER MCPHERSONY Unavailable PROBLEMS Type Condition ICD9-CM Code TON93-UL Code Onset Dates Condition S tatus SNOMED Code Problem Proteinuria R80.9 Active 53524044 Problem Essential hypertension I10 Active 66063931 Problem Anxiety F41.9 Active 88692663 Problem Type 2 diabetes mellitus without complication E11. 9 Active 31753272 Problem Hyperlipidemia, unspecified hyperlipidemia E78.5 Active 68173778 Problem Major depressive disorder, recurrent episode, un specified severity F33.9 Active 75371080 Problem Sciatica, unspecified laterality M54.30 Active 07870258 Problem Acute cystitis with hematuria N30.01 Active 39310042 Problem Chronic pain syndrome G89.4 Active 651224259 Problem Exacerbation of systemic lupus M32.9 Active 29434372 Problem Generalized abdominal pain R10.84 Act sree 643621519 Problem Carpal tunnel syndrome, right upper limb G56.01 Active 71782947 Problem History of small bowel obstruction Z87.19 Active 595804585 Problem History of pulmonary embolism Z86.711 Active 921073266 Problem Presence of IVC filter Z95.828 Active 513020813 Problem Port catheter in place Z95.828 Active 331742374 Problem Gastroesophageal reflux disease, esophagitis pre sence not specified K21.9 Active 383901784 Problem Chronic pancreatitis, unspecified pancreatitis type K86.1 Active 910925987 Problem Hypothyroidism, unspecified type E03.9 Active 23472618 Problem Vitamin D deficiency E55.9 Active 33668258 Problem Nausea R11.0 Active 842041773 Problem Pneumonia due to infectious organism, unspecified laterality, unspecified part of lung J18.9 Active 312 912004 Problem Gastroesophageal reflux disease without esophagitis K21.9 Active 503151994 Problem Violation of controlled substance agreement Z91.14 Active 219588081 Problem Obstructive sleep apnea G47.33 Active 76070551 Problem Hypertension, benign I10 Active 49875398 Problem Venous insufficiency I87.2 Active 70240712 Problem Chronic obstructive pulmonary disease, unspecified COPD ty pe J44.9 Active 88102273 Problem Tobacco abuse counseling Z71.6 Activ e 18967666 Problem 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 A ctive 148783916 Problem Opiate dependence, continuous F11.20 Active 008853779 Problem Cannabis abuse with physiological dependence F12.1 0 Active 30481216 ALLERGIES No Information ENCOUNTERS Encounter Location Date Diagnosis [facility] [address] [address] May, [facility] [address] [address] Apr, Tobacco abuse Z72.0 ; Hypert ension, benign I10 and Tobacco abuse counseling Z71.6 [facility] [address] [address] Sep, [facility] [address] [address] Sep, [facility] [address] [address] Sep, Essential hypertension I10 [facility] [address] [address] Sep, [facility] [address] [address] Sep, [facility] [address] [place] [id number] [address] [place] [address] Sep, Neck mass R22.1 [facility] [address] [address] August, Neck mass R22.1 [facility] [address] [id number] [address] [place] [address] 14 Feb, 2018 Left foot pain M79.672 [facility] [address] [place] [address] 08 Jun, 2017 Chronic pain syndrome G89.4 [facility] [address] [place] [id number] [place] [id number] May, [facility] [address] [facility] [id number] [address] [place] [address] May, [facility] [address] [place] [id number] [address] [place] [address] May, Chronic pain syndrome G89.4 [facility] [id number] [place] [address] 13 May, 2017 [facility] [address] [id number] [address] [place] [address] 10 May, 2017 Encounter for immunization Z 23 and Laceration of left index finger without foreign body without damage to nail, initial encounter S61.211A [facility] [address] [id number] [address] [place] [address] 09 May, 2017 Chronic pain syndrome G89.4 [facility] [address] [id number] [address] [place] [address] May, [facility] [address] [address] Apr, Cannabis abuse with physiolo gical dependence F12.10 ; Violation of controlled substance agreement Z91.14 and Opiate dependence, continuous F11.20 [facility] [address] [place] [id number] [address] [place] [address] Apr, Type 2 diabetes mellitus wit hout complication E11.9 [facility] [address] [place] [address] Apr, [facility] [address] [address] Apr, Chronic pain syndrome G89.4 [facility] [address] [place] [id number] [address] [place] [address] Apr, Viral syndrome B34.9 [facility] [address] [facility] [id number] [address] [place] [address] Apr, [facility] [address] [facility] [id number] [address] [place] [address] Mar, Chronic pain syndrome G89.4 [facility] [address] [facility] [id number] [address] [place] [address] Mar, [facility] [address] [facility] [id number] [address] [place] [address] Mar, [facility] [address] [facility] [id number] [address] [place] [address] Feb, Essential hypertension I10 ; Chronic pain syndrome G89.4 ; Hyperlipidemia, unspecified hyperlipidemia E78.5 ; 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 and Encounter for immunization Z23 [facility] [address] [facility] [id number] [address] [place] [address] Feb, Chronic pain syndrome G89.4 [facility] [address] [facility] [id number] [address] [place] [address] Jan, Chronic pain syndrome G89.4 [facility] [address] [facility] [id number] [address] [place] [address] Jan, [facility] [address] [facility] [id number] [address] [place] [address] Jan, Bronchitis J40 ; Port cathet er in place Z95.828 and Chronic pain syndrome G89.4 [facility] [address] [id number] [id number] Jan, [facility] [address] [facility] [id number] [address] [place] [address] 22 Dec, 2016 Chronic pain syndrome G89.4 [facility] [address] [facility] [id number] [address] [place] [address] 18 Dec, 2016 Chronic pain syndrome G89.4 [facility] [address] [id number] [address] [place] [address] Dec, [facility] [address] [id number] [address] [place] [address] Nov, [facility] [address] [id number] [address] [place] [address] Nov, Chronic pain syndrome G89.4 [facility] [address] [id number] [address] [place] [address] Oct, Chronic pain syndrome G89.4 [facility] [address] [id number] [address] [place] [address] Oct, [facility] [address] [id number] [address] [place] [address] Sep, Chronic pain syndrome G89.4 [facility] [address] [id number] [address] [place] [phone] Sep, Exacerbation of systemic lup us M32.9 [facility] [address] [id number] [address] [place] [address] Sep, [facility] [address] [id number] [address] [place] [address] Sep, [facility] [address] [id number] [address] [place] [address] Sep, Nausea R11.0 [facility] [address] [id number] [address] [place] [address] August, Chronic pain syndrome G89.4 [facility] [address] [id number] [address] [place] [address] August, [facility] [address] [id number] [address] [place] [address] August, Chronic pain syndrome G89.4 [facility] [address] [id number] [address] [place] [address] Jul, Pneumonia due to infectious organism, unspecified laterality, unspecified part of lung J18.9 and Tobacco abuse counseling Z71.6 [place] [address] [place] [id number] [address] [place] [address] Jul, Chronic pain syndrome G89.4 [place] [address] [place] [id number] [address] [place] [phone] 31 Jun, 2016 Essential hypertension I10 [place] [address] [address] Jun, Pneumonia due to infectious organism, unspecified laterality, unspecified part of lung J18.9 [place] [address] [place] [id number] [address] [place] [address] Jun, Chronic pain syndrome G89.4 [place] [address] [place] [id number] [place] [address] 10 May, 2016 Essential hypertension I10 ; [...] and Gastroesophageal reflux disease without esophagitis K21.9 [place] [address] [place] [address] Apr, [place] [address] [place] [id number] [address] [place] [address] Apr, Pneumonia due to infectious organism, unspecified laterality, unspecified part of lung J18.9 and Nausea R11.0 [place] [address] [place] [id number] [address] [place] [address] Apr, Essential hypertension I10 ; Chronic pain syndrome G89.4 ; Type 2 diabetes mellitus without complication E11.9 ; Hyperlipidemia, unspecified hyperlipidemia E78.5 ; Major depressive disorder, recurrent episode, unspecified severity F33.9 ; Sciatica, unspecified laterality M54.30 ; Chronic obstructive pulmonary disease, unspecified COPD type J44.9 ; Pneumonia due to infectious organism, unspecified laterality, unspecified part of lung J18.9 and Nausea R11.0 [facility] [address] [facility] [id number] [address] [place] [address] Mar, [facility] [address] [facility] [id number] [address] [place] [address] Mar, [facility] [address] [facility] [id number] [address] [place] [address] Mar, [place] [address] [facility] [id number] [address] [place] [address] Mar, Anxiety F41.9 and Major depr essive disorder, recurrent episode, unspecified severity F33.9 [place] [address] [facility] [id number] [address] [place] [address] Mar, [place] [address] [facility] [id number] [address] [place] [address] Mar, [place] [address] [facility] [id number] [address] [place] [address] Mar, Generalized abdominal pain R 10.84 ; Acute cystitis with hematuria N30.01 and Essential hypertension I10 [facility] [address] [facility] [id number] [address] [place] [address] Mar, Sore throat J02.9 and Exacer bation of systemic lupus M32.9 [place] [address] [facility] [id number] [address] [place] [address] Feb, Type 2 diabetes mellitus wit hout [...] reflux disease, esophagitis presence not specified K21.9 [place] [address] [address] Feb, [place] [address] [address] Jan, [facility] [address] [address] Jan, Right arm pain M79.[address] of right wrist, initial encounter S66.911A [place] [address] [address] Jan, [facility] [address] [address] Dec, Generalized abdominal pain R 10.84 [place] [address] [address] Dec, Adenopathy R59.1 [place] [address] [address] 19 Dec, 2015 Bronchitis J40 [place] [address] [address] 14 Dec, 2015 [place] [address] [address] Dec, Essential hypertension I10 [place] [address] [place] [id number] [address] [place] [address] Nov, [place] [address] [address] Nov, [place] [address] [address] Nov, Essential hypertension I10 ; Hyperlipidemia, unspecified [...] Type 2 diabetes mellitus without complication E11.9 [place] [address] [place] [id number] [address] [place] [address] Nov, [place] [address] [address] Oct, Type 2 diabetes mellitus wit hout complication E11.9 ; Essential hypertension I10 ; Other viral warts B07.8 ; Hauula or callus L84 and Hyperlipidemia, unspecified hyperlipidemia E78.5 [place] [address] [place] [address] Sep, [place] [address] [place] [id number] [address] [place] [address] Sep, [place] [address] [place] [id number] [address] [place] [address] Jun, [place] [address] [place] [id number] [address] [place] [address] Jun, [place] [address] [place] [id number] [address] [place] [address] May, [place] [address] [place] [id number] [address] [place] [address] Apr, [place] [address] [place] [id number] [address] [place] [address] Feb, [place] [address] [place] [id number] [address] [place] [address] Feb, COPD exacerbation J44.1 and Acute upper respiratory infection J06.9 [place] [address] [id number] [address] [place] [address] Feb, [facility] [address] [id number] [address] [place] [address] Feb, [facility] [address] [id number] [address] [place] [address] Feb, [facility] [address] [id number] [address] [place] [address] Feb, [facility] [address] [id number] [address] [place] [address] Jan, Left hip pain M25.552 [facility] [address] [id number] [address] [place] [address] Jan, Essential hypertension I10 ; Chronic pain syndrome G89.4 ; Type 2 diabetes mellitus without complication E11.9 and Hyperlipidemia, unspecified hyperlipidemia E78.5 [facility] [address] [id number] [address] [place] [address] Jul, [facility] [address] [id number] [address] [place] [address] Jul, [facility] [address] [id number] [address] [place] [address] Jul, [facility] [address] [id number] [address] [place] [address] Jun, [facility] [address] [id number] [address] [place] [address] Jun, [facility] [address] [id number] [address] [place] [address] Jun, [facility] [address] [id number] [address] [place] [address] Jun, [facility] [address] [id number] [address] [place] [address] Jun, [facility] [address] [id number] [address] [place] [address] Jun, [facility] [address] [id number] [address] [place] [address], [place] [address] Jun, [facility] [address] [id number] [address] [place] [address], [place] [address] Jun, [facility] [address] [id number] [address] [place] [address], [place] [address] 18 Jun, 2014 [facility] [address] [id number] [address] [place] [address], [place] [address] Jun, [facility] [address] [id number] [address] [place] [address], [place] [address] Jun, [facility] [address] [id number] [address] [place] [address], [place] [address] Jun, [facility] [address] [id number] [address] [place] [address], [place] [address] Apr, [facility] [address] [id number] [address] [place] [address], [place] [address] Apr, [facility] [address] [id number] [address] [place] [address], [place] [address] Apr, [facility] [address] [id number] [address] [place] [address], [place] [address] Apr, [facility] [address] [id number] [address] [place] [address], [place] [address] Apr, [facility] [address] [id number] [address] [place] [address], [place] [address] Apr, [facility] [address] [id number] [address] [place] [address], [place] [address] Apr, [facility] [address] [id number] [address] [place] [address], [place] [address] Apr, [facility] [address] [id number] [address] [place] [address], [place] [address] Mar, [facility] [address] [id number] [facility] [place] [address] Mar, [facility] [address] [id number] [address] [place] [address], [place] [address] Mar, [facility] [address] [id number] [address] [place] [address], [place] [address] Mar, [facility] [address] [id number] [address] [place] [address], [place] [address] Mar, [facility] [address] [id number] [address] [place] [address], [place] [address] 18 Mar, 2014 [facility] [address] [id number] [address] [place] [address], [place] [address] 15 Mar, 2014 [facility] [address] [id number] [address] [place] [address], [place] [address] Mar, [facility] [address] [id number] [address] [place] [address], [place] [address] Mar, [facility] [address] [id number] [address] [place] [address], [place] [address] Mar, [facility] [address] [id number] [address] [place] [address], [place] [address] Mar, [facility] [address] [id number] [address] [place] [address], [place] [address] 05 Mar, 2014 [facility] [address] [id number] [address] [place] [address], [place] [address] Mar, [facility] [address] [id number] [address] [place] [address], [place] [address] Feb, [facility] [address] [id number] [address] [place] [address], [place] [address] Feb, [facility] [address] [id number] [address] [place] [address], [place] [address] Feb, [facility] [address] [id number] [address] [place] [address], [place] [address] Feb, [facility] [address] [id number] [address] [place] [address], [place] [address] Feb, [facility] [address] [id number] [address] [place] [address], [place] [address] Feb, [facility] [address] [id number] [address] [place] [address], [place] [address] Feb, [facility] [address] [id number] [address] [place] [address], [place] [address] Feb, [facility] [address] [id number] [address] [place] [address], [place] [address] Jan, [facility] [address] [id number] [address] [place] [address], [place] [address] Jan, [facility] [address] [id number] [address] [place] [address], [place] [address] Jan, [facility] [address] [id number] [address] [place] [address], [place] [address] Jan, [facility] [address] [id number] [address] [place] [address], [place] [address] Jan, [facility] [address] [id number] [address] [place] [address], [place] [address] Jan, [facility] [address] [id number] [address] [place] [address], [place] [address] Jan, [facility] [address] [id number] [address] [place] [address], [place] [address] Jan, [facility] [address] [id number] [address] [place] [address], [place] [address] Jan, [facility] [address] [id number] [address] [place] [address], [place] [address] 30 Dec, 2013 [facility] [address] [id number] [address] [place] [address], [place] [address] 30 Dec, 2013 [facility] [address] [id number] [facility] [place] [address] 26 Dec, 2013 [facility] [address] [id number] [address] [place] [address], [place] [address] 26 Dec, 2013 [facility] [address] [id number] [address] [place] [address], [place] [address] 16 Dec, 2013 [facility] [address] [id number] [address] [place] [address], [place] [address] 16 Dec, 2013 [facility] [address] [id number] [address] [place] [address], [place] [address] 08 Dec, 2013 [facility] [address] [id number] [address] [place] [address], [place] [address] 08 Dec, 2013 [facility] [address] [id number] [address] [place] [address], [place] [address] Dec, 2013 [facility] [address] [id number] [address] [place] [address], [place] [address] Dec, 2013 [facility] [address] [id number] [address] [place] [address], [place] [address] Nov, [facility] [address] [id number] [address] [place] [address], [place] [address] Nov, [facility] [address] [id number] [address] [place] [address], [place] [address] Nov, [facility] [address] [id number] [address] [place] [address], [place] [address] Nov, [facility] [address] [id number] [address] [place] [address], [place] [address] Nov, [facility] [address] [id number] [address] [place] [address], [place] [address] Nov, [facility] [address] [id number] [address] [place] [address], [place] [address] Nov, [facility] [address] [id number] [address] [place] [address], [place] [address] Nov, [facility] [address] [id number] [facility] [place] [address] Nov, [facility] [address] [id number] [address] [place] [address], [place] [address] Nov, [facility] [address] [id number] [address] [place] [address], [place] [address] Nov, [facility] [address] [id number] [address] [place] [address], [place] [address] Nov, [facility] [address] [id number] [address] [place] [address], [place] [address] Nov, [facility] [address] [id number] [address] [place] [address], [place] [address] Oct, [facility] [address] [id number] [address] [place] [address], [place] [address] Oct, [facility] [facility] [address] [id number] [address] [place] [address], [place] [address] Oct, [facility] [address] [id number] [address] [place] [address], [place] [address] Oct, [facility] [address] [id number] [address] [place] [address], [place] [address] Oct, [facility] [address] [id number] [address] [place] [address], [place] [address] Oct, [facility] [address] [id number] [address] [place] [address], [place] [address] Sep, [facility] [address] [id number] [address] [place] [address], [place] [address] Sep, [facility] [address] [id number] [address] [place] [address], [place] [address] Sep, [facility] [address] [id number] [address] [place] [address], [place] [address] Sep, [facility] [address] [id number] [address] [place] [address], [place] [address] Sep, [facility] [address] [id number] [facility] [place] [address] Sep, [facility] [address] [id number] [address] [place] [address], [place] [address] Sep, [facility] [address] [id number] [address] [place] [address], [place] [address] Sep, [facility] [address] [id number] [address] [place] [address], [place] [address] Sep, [facility] [address] [id number] [address] [place] [address], [place] [address] Sep, [facility] [address] [id number] [address] [place] [address], [place] [address] Sep, [facility] [address] [id number] [address] [place] [address], [place] [address] Sep, [facility] [address] [id number] [address] [place] [address], [place] [address] August, [facility] [address] [id number] [address] [place] [address], [place] [address] August, [facility] [address] [id number] [address] [place] [address], [place] [address] Jul, [facility] [address] [id number] [address] [place] [address], [place] [address] Jul, [facility] [address] [id number] [address] [place] [address], [place] [address] Jul, [facility] [address] [id number] [address] [place] [address], [place] [address] Jul, [facility] [address] [id number] [address] [place] [address], [place] [address] Jul, [facility] [address] [id number] [address] [place] [address], [place] [address] Jul, [facility] [address] [id number] [facility] [place] [address] 16 Jul, 2013 [facility] [address] [id number] [facility] [place] [address] 16 Jul, 2013 [facility] [address] [id number] [facility] [place] [address] 15 Jul, 2013 [facility] [address] [id number] [address] [place] [address], [place] [address] Jul, [facility] [address] [id number] [address] [place] [address], [place] [address] Jul, [facility] [address] [id number] [address] [place] [address], [place] [address] Jun, [facility] [address] [id number] [address] [place] [address], [place] [address] Jun, [facility] [address] [id number] [address] [place] [address], [place] [address] Jun, [facility] [address] [id number] [address] [place] [address], [place] [address] Jun, [facility] [address] [id number] [address] [place] [address], [place] [address] Jun, [facility] [address] [id number] [address] [place] [address], [place] [address] Jun, [facility] [address] [id number] [address] [place] [address], [place] [address] Jun, [facility] [address] [id number] [address] [place] [address], [place] [address] Jun, [facility] [address] [id number] [address] [place] [address], [place] [address] May, [facility] [address] [id number] [address] [place] [address], [place] [address] May, [facility] [address] [id number] [address] [place] [address], [place] [address] May, [facility] [address] [id number] [address] [place] [address], [place] [address] May, [facility] [address] [id number] [address] [place] [address], [place] [address] May, [facility] [address] [id number] [address] [place] [address], [place] [address] May, [facility] [address] [id number] [address] [place] [address], [place] [address] May, [facility] [address] [id number] [address] [place] [address], [place] [address] May, [facility] [address] [id number] [address] [place] [address], [place] [address] May, [facility] [address] [id number] [address] [place] [address], [place] [address] May, [facility] [address] [id number] [address] [place] [address], [place] [address] May, [facility] [address] [id number] [address] [place] [address], [place] [address] May, [facility] [address] [id number] [address] [place] [address], [place] [address] May, [facility] [address] [id number] [address] [place] [address], [place] [address] Apr, [facility] [address] [id number] [address] [place] [address], [place] [address] Apr, [facility] [address] [id number] [address] [place] [address], [place] [address] Apr, [facility] [address] [id number] [address] [place] [address], [place] [address] Apr, [facility] [address] [id number] [address] [place] [address], [place] [address] Apr, [facility] [address] [id number] [address] [place] [address], [place] [address] Apr, [facility] [address] [id number] [address] [place] [address], [place] [address] Apr, [facility] [address] [id number] [address] [place] [address], [place] [address] Apr, [facility] [address] [id number] [address] [place] [address], [place] [address] Apr, [facility] [address] [id number] [address] [place] [address], [place] [address] Apr, [facility] [address] [id number] [address] [place] [address], [place] [address] Apr, [facility] [address] [id number] [address] [place] [address], [place] [address] Apr, [facility] [address] [id number] [address] [place] [address], [place] [address] Apr, [facility] [address] [id number] [address] [place] [address], [place] [address] Apr, [facility] [address] [id number] [address] [place] [address], [place] [address] Apr, [facility] [address] [id number] [address] [place] [address], [place] [address] Mar, [facility] [address] [id number] [address] [place] [address], [place] [address] Mar, [facility] [address] [id number] [address] [place] [address], [place] [address] Mar, [facility] [address] [id number] [address] [place] [address], [place] [address] Mar, [facility] [address] [id number] [address] [place] [address], [place] [address] Mar, [facility] [address] [id number] [address] [place] [address], [place] [address] 20 Mar, 2013 [facility] [address] [id number] [address] [place] [address], [place] [address] 17 Mar, 2013 [facility] [address] [id number] [address] [place] [address], [place] [address] 17 Mar, 2013 [facility] [address] [id number] [address] [place] [address], [place] [address] Mar, [facility] [address] [id number] [address] [place] [address], [place] [address] Mar, [facility] [address] [id number] [address] [place] [address], [place] [address] Mar, [facility] [address] [id number] [address] [place] [address], [place] [address] Mar, [facility] [address] [id number] [address] [place] [address], [place] [address] Feb, [facility] [address] [id number] [address] [place] [address], [place] [address] Feb, [facility] [address] [id number] [address] [place] [address], [place] [address] Feb, [facility] [address] [id number] [address] [place] [address], [place] [address] Feb, [facility] [address] [id number] [address] [place] [address] Feb, [facility] [address] [id number] [address] [place] [address] Feb, [facility] [address] [id number] [address] [place] [address], [place] [address] Feb, [facility] [address] [id number] [address] [place] [address] Feb, [facility] [address] [id number] [address] [place] [address], [place] [address] Jan, [facility] [address] [id number] [address] [place] [address], [place] [address] Jan, [facility] [address] [id number] [address] [place] [address], [place] [address] Jan, [facility] [address] [id number] [address] [place] [address], [place] [address] Jan, [facility] [address] [id number] [address] [place] [address], [place] [address] Jan, [facility] [address] [id number] [address] [place] [address], [place] [address] Jan, [facility] [address] [id number] [address] [place] [address], [place] [address] Jan, [facility] [address] [id number] [address] [place] [address], [place] [address] Dec, [facility] [address] [id number] [address] [place] [address], [place] [address] Dec, [facility] [address] [id number] [address] [place] [address], [place] [address] Dec, [facility] [address] [id number] [address] [place] [address], [place] [address] Dec, [facility] [address] [id number] [address] [place] [address], [place] [address] Dec, [facility] [address] [id number] [address] [place] [address], [place] [address] Nov, [facility] [address] [id number] [address] [place] [address], [place] [address] Nov, [facility] [address] [id number] [address] [place] [address], [place] [address] Nov, [facility] [address] [id number] [address] [place] [address], [place] [address] Nov, [facility] [address] [id number] [address] [place] [address], [place] [address] Nov, [facility] [address] [id number] [address] [place] [address], [place] [address] Nov, [facility] [address] [id number] [address] [place] [address], [place] [address] Nov, [facility] [address] [id number] [address] [place] [address], [place] [address] Oct, [facility] [address] [id number] [address] [place] [address], [place] [address] Oct, [facility] [address] [id number] [address] [place] [address], [place] [address] Oct, [facility] [address] [id number] [address] [place] [address], [place] [address] Oct, [facility] [address] [id number] [address] [place] [address], [place] [address] Oct, [facility] [address] [id number] [address] [place] [address], [place] [address] Oct, [facility] [address] [id number] [address] [place] [address], [place] [address] Oct, [facility] [address] [id number] [address] [place] [address], [place] [address] Oct, [facility] [address] [id number] [address] [place] [address], [place] [address] Sep, [facility] [address] [id number] [address] [place] [address], [place] [address] Sep, [facility] [address] [id number] [address] [place] [address], [place] [address] Sep, [facility] [address] [id number] [address] [place] [address], [place] [address] Sep, [facility] [address] [id number] [address] [place] [address], [place] [address] Sep, [facility] [address] [id number] [address] [place] [address], [place] [address] Sep, [facility] [address] [id number] [address] [place] [address], [place] [address] August, [facility] [address] [id number] [address] [place] [address], [place] [address] August, [facility] [address] [id number] [address] [place] [address], [place] [address] August, [facility] [address] [id number] [address] [place] [address], [place] [address] August, [facility] [address] [id number] [address] [place] [address], [place] [address] August, [facility] [address] [id number] [address] [place] [address], [place] [address] Jul, [facility] [address] [id number] [address] [place] [address], [place] [address] Jul, [facility] [address] [id number] [address] [place] [address], [place] [address] Jul, [facility] [address] [id number] [address] [place] [address], [place] [address] Jul, [facility] [address] [id number] [address] [place] [address], [place] [address] Jul, [facility] [address] [id number] [address] [place] [address], [place] [address] 05 Jul, 2012 [facility] [address] [id number] [address] [place] [address], [place] [address] 14 Jun, 2012 [facility] [address] [id number] [address] [place] [address], [place] [address] 13 Jun, 2012 [facility] [address] [id number] [address] [place] [address], [place] [address] 07 Jun, 2012 [facility] [address] [id number] [address] [place] [address], [place] [address] 07 Jun, 2012 [facility] [address] [id number] [address] [place] [address], [place] [address] 05 Jun, 2012 [facility] [address] [id number] [address] [place] [address], [place] [address] 19 May, 2012 [facility] [address] [id number] [address] [place] [address], [place] [address] 13 May, 2012 [facility] [address] [id number] [address] [place] [address], [place] [address] May, [facility] [address] [id number] [address] [place] [address], [place] [address] 23 Apr, 2012 [facility] [address] [id number] [address] [place] [address], [place] [address] Apr, [facility] [address] [id number] [address] [place] [address], [place] [address] Mar, [facility] [address] [id number] [address] [place] [address], [place] [address] Mar, [facility] [address] [id number] [address] [place] [address], [place] [address] Mar, [facility] [address] [id number] [address] [place] [address], [place] [address] Mar, [facility] [address] [id number] [address] [place] [address], [place] [address] 17 Mar, 2012 [facility] [address] [id number] [address] [place] [address], [place] [address] 13 Mar, 2012 [facility] [address] [id number] [address] [place] [address], [place] [address] Feb, [facility] [address] [id number] [address] [place] [address], [place] [address] 13 Feb, [address] [facility] [address] [id number] [address] [place] [address], [place] [address] 13 Feb, 2012 [facility] [address] [id number] [address] [place] [address], [place] [address] Jan, [facility] [address] [id number] [address] [place] [address], [place] [address] Jan, [facility] [address] [id number] [address] [place] [address], [place] [address] Jan, [facility] [address] [id number] [address] [place] [address], [place] [address] Jan, [facility] [address] [id number] [address] [place] [address], [place] [address] Jan, [facility] [address] [id number] [address] [place] [address], [place] [address] Jan, [facility] [address] [id number] [address] [place] [address], [place] [address] Jan, [facility] [address] [id number] [address] [place] [address], [place] [address] Jan, [facility] [address] [id number] [address] [place] [address], [place] [address] 16 Jan, 2012 [facility] [address] [id number] [address] [place] [address], [place] [address] 18 Dec, 2011 [facility] [address] [id number] [address] [place] [address], [place] [address] 13 Dec, 2011 [facility] [address] [id number] [address] [place] [address], [place] [address] 11 Dec, 2011 [facility] [address] [id number] [address] [place] [address], [place] [address] Nov, [facility] [address] [id number] [address] [place] [address], [place] [address] Nov, [facility] [address] [id number] [address] [place] [address], [place] [address] 16 Nov, 2011 [facility] [address] [id number] [address] [place] [address], [place] [address] Oct, [facility] [address] [id number] [address] [place] [address], [place] [address] 06 Oct, 2011 [facility] [address] [id number] [address] [place] [address], [place] [address] Sep, [facility] [address] [id number] [address] [place] [address], [place] [address] Sep, [facility] [address] [id number] [address] [place] [address], [place] [address] Sep, [facility] [address] [id number] [address] [place] [address], [place] [address] Sep, [facility] [address] [id number] [address] [place] [address], [place] [address] Sep, [facility] [address] [id number] [address] [place] [address], [place] [address] August, [facility] [address] [id number] [address] [place] [address], [place] [address] August, [facility] [address] [id number] [address] [place] [address], [place] [address] August, [facility] [address] [id number] [address] [place] [address], [place] [address] August, [facility] [address] [id number] [address] [place] [address], [place] [address] August, [facility] [address] [id number] [address] [place] [address], [place] [address] August, [facility] [address] [id number] [address] [place] [address], [place] [address] August, [facility] [address] [id number] [address] [place] [address], [place] [address] August, [facility] [address] [id number] [address] [place] [address], [place] [address] August, [facility] [address] [id number] [address] [place] [address], [place] [address] Jul, [facility] [address] [id number] [address] [place] [address], [place] [address] 19 Jul, 2011 [facility] [address] [id number] [address] [place] [address], [place] [address] 10 Jul, 2011 [facility] [address] [id number] [address] [place] [address], [place] [address] 04 Jul, 2011 [facility] [address] [id number] [address] [place] [address], [place] [address] 27 Jun, 2011 [facility] [address] [id number] [address] [place] [address], [place] [address] 13 Jun, 2011 [facility] [address] [id number] [address] [place] [address], [place] [address] Jun, [facility] [address] [id number] [address] [place] [address], [place] [address] 27 May, 2011 [facility] [address] [id number] [address] [place] [address], [place] [address] 24 May, 2011 [facility] [address] [id number] [address] [place] [address], [place] [address] 20 May, 2011 [facility] [address] [id number] [address] [place] [address], [place] [address] 16 May, 2011 [facility] [address] [id number] [address] [place] [address], [place] [address] 15 May, 2011 [facility] [address] [id number] [address] [place] [address], [place] [address] 14 May, 2011 [facility] [address] [id number] [address] [place] [address], [place] [address] 10 May, 2011 [facility] [address] [id number] [address] [place] [address], [place] [address] 09 May, 2011 [facility] [address] [id number] [address] [place] [address], [place] [address] 02 May, 2011 [facility] [address] [id number] [address] [place] [address], [place] [address] 30 Apr, 2011 [facility] [address] [address] [id number] [address] [place] [address], [place] [address] Apr, [facility] [place] [facility] [address] [id number] [address] [place] [address], [place] [address] Apr, [facility] [address] [id number] [address] [place] [address], [place] [address] 17 Apr, 2011 [facility] [address] [id number] [address] [place] [address], [place] [address] 16 Apr, 2011 [facility] [place] [facility] [address] [id number] [address] [place] [address], [place] [address] Apr, [facility] [address] [id number] [address] [place] [address], [place] [address] Apr, [facility] [address] [id number] [address] [place] [address], [place] [address] Apr, [facility] [address] [id number] [address] [place] [address], [place] [address] Apr, [facility] [address] [id number] [address] [place] [address], [place] [address] Apr, [facility] [address] [id number] [address] [place] [address], [place] [address] Apr, [facility] [address] [id number] [address] [place] [address], [place] [address] Mar, [facility] [address] [id number] [address] [place] [address], [place] [address] Mar, [facility] [address] [id number] [address] [place] [address], [place] [address] Mar, [facility] [address] [id number] [address] [place] [address], [place] [address] 05 Mar, 2011 [facility] [address] [id number] [address] [place] [address], [place] [address] Feb, [facility] [address] [facility] [id number] [address] [place] [phone] Feb, [facility] [address] [facility] [id number] [address] [place] [phone] Jan, [facility] [address] [facility] [id number] [address] [place] [phone] Nov, IMMUNIZATIONS No Known Immunizations SOCIAL HISTORY [...] laser treatment for glaucoma Hospitalization History [facility] [place]- Right side and back pain related to fall, hurts to breathe (ED at 7 pm) 06/07/2017 Hospitalization History [facility] [place], [place]- Anxiety ( went to ED at 1200) 06/07/2017 Hospitalization History COPD exacerbation - Gerald Pizano 2017 Hospitalization History Blood clot, port placement - Gerald Pizano 09/2017
--- OUTSIDE RECORDS SUMMARY | 2019-09-01 14:26 | XMS REPORT ---
Author Author RADHA Sophianaren OLIVA [facility] Address [address] [place] [address] Care Team Providers Care Cell Tender Helper Name Role Phone RADHAGASPER MCPHERSONY Unavailable PROBLEMS Type Condition ICD9-CM Code GZE14-QE Code Onset Dates Condition S tatus SNOMED Code Problem Proteinuria R80.9 Active 51687973 Problem Essential hypertension I10 Active 94537936 Problem Anxiety F41.9 Active 33424132 Problem Type 2 diabetes mellitus without complication E11. 9 Active 04012154 Problem Hyperlipidemia, unspecified hyperlipidemia E78.5 Active 28987910 Problem Major depressive disorder, recurrent episode, un specified severity F33.9 Active 12255840 Problem Sciatica, unspecified laterality M54.30 Active 78811901 Problem Acute cystitis with hematuria N30.01 Active 45841610 Problem Chronic pain syndrome G89.4 Active 858011644 Problem Exacerbation of systemic lupus M32.9 Active 31658200 Problem Generalized abdominal pain R10.84 Act sree 021256002 Problem Carpal tunnel syndrome, right upper limb G56.01 Active 98179431 Problem History of small bowel obstruction Z87.19 Active 450553600 Problem History of pulmonary embolism Z86.711 Active 112668714 Problem Presence of IVC filter Z95.828 Active 427320393 Problem Port catheter in place Z95.828 Active 242377815 Problem Gastroesophageal reflux disease, esophagitis pre sence not specified K21.9 Active 925343533 Problem Chronic pancreatitis, unspecified pancreatitis type K86.1 Active 528554304 Problem Hypothyroidism, unspecified type E03.9 Active 21516163 Problem Vitamin D deficiency E55.9 Active 91047427 Problem Nausea R11.0 Active 204476369 Problem Pneumonia due to infectious organism, unspecified laterality, unspecified part of lung J18.9 Active 312 105465 Problem Gastroesophageal reflux disease without esophagitis K21.9 Active 363688855 Problem Violation of controlled substance agreement Z91.14 Active 987052058 Problem Obstructive sleep apnea G47.33 Active 61957317 Problem Hypertension, benign I10 Active 25831913 Problem Venous insufficiency I87.2 Active 84398194 Problem Chronic obstructive pulmonary disease, unspecified COPD ty pe J44.9 Active 50549867 Problem Tobacco abuse counseling Z71.6 Activ e 42797764 Problem 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 A ctive 977097868 Problem Opiate dependence, continuous F11.20 Active 617694823 Problem Cannabis abuse with physiological dependence F12.1 0 Active 12069894 ALLERGIES No Information ENCOUNTERS Encounter Location Date Diagnosis [facility] [address] [address] May, [place] [address] [address] Apr, Tobacco abuse Z72.0 ; Hypertension, stefan gn I10 and Tobacco abuse counseling Z71.6 [place] [address] [address] Sep, [place] [address] [address] Sep, [facility] [address] [address] Sep, Essential hypertension I10 [place] [address] [address] Sep, [facility] [address] [address] Sep, [place] [address] [address] Sep, Neck mass R22.1 [facility] [address] [address] August, Neck mass R22.1 [facility] [address] [facility] [id number] [address] [place] [address] Feb, Left foot pain M79.672 [facility] [address] [address] Jun, Chronic pain syndrome G89.4 [facility] [id number] [place] [id number] May, [facility] [address] [place] [id number] [place] [address] May, [facility] [address] [place] [id number] [place] [address] May, Chronic pain syndrome G89.4 [facility] [address] [place] [id number] [place] [address] May, [facility] [address] [facility] [id number] [address] [place] [address] 10 May, 2017 Encounter for immunization Z 23 and Laceration of left index finger without foreign body without damage to nail, initial encounter S61.211A [place] [address] [address] 09 May, 2017 Chronic pain syndrome G89.4 [facility] [address] [place] [id number] [place] [address] May, [place] [address] [address] Apr, Cannabis abuse with physiological depend ence F12.10 ; Violation of controlled substance agreement Z91.14 and Opiate dependence, continuous F11.20 [place] [address] [place] [id number] [place] [address] Apr, Type 2 diabetes mellitus without complic ation E11.9 [facility] [address] [place] [id number] [place] [address] Apr, [place] [address] [address] Apr, Chronic pain syndrome G89.4 [facility] [address] [place] [id number] [place] [address] Apr, Viral syndrome B34.9 [facility] [address] [address] Apr, [facility] [address] [address] Mar, Chronic pain syndrome G89.4 [facility] [address] [address] Mar, [facility] [address] [address] Mar, [facility] [address] [address] Feb, Essential hypertension I10 ; Chronic nataly n syndrome G89.4 ; Hyperlipidemia, unspecified hyperlipidemia E78.5 ; 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 and Encounter for immunization Z23 [place] [address] [address] Feb, Chronic pain syndrome G89.4 [facility] [address] [address] Jan, Chronic pain syndrome G89.4 [facility] [address] [address] Jan, [facility] [address] [address] Jan, Bronchitis J40 ; Port catheter in place Z95.828 and Chronic pain syndrome G89.4 [facility] [address] [id number] [place] [id number] Jan, [facility] [address] [address] 22 Dec, 2016 Chronic pain syndrome G89.4 [facility] [address] [address] 18 Dec, 2016 Chronic pain syndrome G89.4 [facility] [address] [address] 08 Dec, 2016 [facility] [address] [address] Nov, [facility] [address] [address] Nov, Chronic pain syndrome G89.4 [facility] [address] [address] Oct, Chronic pain syndrome G89.4 [facility] [address] [address] Oct, [facility] [address] [address] Sep, Chronic pain syndrome G89.4 [facility] [address] [address] Sep, Exacerbation of systemic lupus M32.9 [facility] [address] [address] Sep, [facility] [address] [address] Sep, [facility] [address] [address] Sep, Nausea R11.0 [facility] [address] [address] August, Chronic pain syndrome G89.4 [facility] [address] [address] August, [facility] [address] [address] August, Chronic pain syndrome G89.4 [facility] [address] [address] Jul, Pneumonia due to infectious organism, un specified laterality, unspecified part of lung J18.9 and Tobacco abuse counseling Z71.6 [facility] [address] [address] Jul, Chronic pain syndrome G89.4 [facility] [address] [address] Jun, Essential hypertension I10 [facility] [address] [address] Jun, Pneumonia due to infectious organism, un specified laterality, unspecified part of lung J18.9 [place] [address] [address] Jun, Chronic pain syndrome G89.4 [place] [address] [address] May, Essential hypertension I10 ; Type 2 [...] and Gastroesophageal reflux disease without esophagitis K21.9 [place] [address] [address] Apr, [address] [address] Apr, Pneumonia due to infectious organism, un specified laterality, unspecified part of lung J18.9 and Nausea R11.[address] [address] Apr, Essential hypertension I10 ; Chronic nataly [...] lung J18.9 and Nausea R11.0 [facility] [address] [facility] [id number] [address] [place] [address] Mar, [address] [address] Mar, [place] [address] [address] Mar, [place] [address] [address] Mar, Anxiety F41.9 and Major depressive disor rita, recurrent episode, unspecified severity F33.9 [place] [address] [address] Mar, [place] [address] [address] Mar, [place] [address] [address] Mar, Generalized abdominal pain R10.84 ; Acut e cystitis with hematuria N30.01 and Essential hypertension I10 [facility] [address] [place] [address] Mar, Sore throat J02.9 and Exacer bation of systemic lupus M32.9 [place] [address] [address] Feb, Type 2 diabetes mellitus without complic [...] reflux disease, esophagitis presence not specified K21.9 [place] [address] [address] Feb, [place] [address] [address] Jan, [facility] [place] [id number] [place] [address] Jan, Right arm pain M79.601 [address] train of right wrist, initial encounter S66.911A [place] [address] [address] Jan, [facility] [address] [facility] [id number] [address] [place] [address] 30 Dec, 2015 Generalized abdominal pain R 10.84 [place] [address] [address] Dec, Adenopathy R59.1 [place] [address] [address] 19 Dec, 2015 Bronchitis J40 [place] [address] [address] 14 Dec, 2015 [place] [address] [address] Dec, Essential hypertension I10 [place] [address] [address] Nov, [place] [address] [address] Nov, [place] [address] [address] Nov, Essential hypertension I10 ; Hyperlipide martha, [...] Type 2 diabetes mellitus without complication E11.9 [place] [address] [address] Nov, [facility] [address] [address] Oct, Type 2 diabetes mellitus without complic ation E11.9 ; Essential hypertension I10 ; Other viral warts B07.8 ; Vernon or callus L84 and Hyperlipidemia, unspecified hyperlipidemia E78.5 [facility] [address] [address] Sep, [facility] [address] [address] Sep, [facility] [address] [address] Jun, [facility] [address] [address] Jun, [facility] [address] [address] May, [facility] [address] [address] Apr, [facility] [address] [address] Feb, [facility] [address] [address] Feb, COPD exacerbation J44.1 and Acute upper respiratory infection J06.9 [facility] [address] [address] Feb, [facility] [address] [address] Feb, [facility] [address] [address] Feb, [facility] [address] [address] Feb, [facility] [address] [address] Jan, Left hip pain M25.552 [facility] [address] [id number] [place] [address] Jan, Essential hypertension I10 ; Chronic nataly n syndrome G89.4 ; Type 2 diabetes mellitus without complication E11.9 and Hyperlipidemia, unspecified hyperlipidemia E78.5 [facility] [address] [id number] [place] [address] 28 Jul, 2014 [facility] [address] [place] [id number] [place] [address] 14 Jul, 2014 [facility] [address] [id number] [place] [address] Jul, [facility] [address] [place] [id number] [place] [address] 25 Jun, 2014 [facility] [address] [place] [id number] [place] [address] Jun, [facility] [address] [place] [id number] [place] [address] 24 Jun, 2014 [facility] [address] [place] [id number] [place] [address] Jun, [facility] [address] [place] [id number] [place] [address] Jun, [facility] [address] [place] [id number] [place] [address] Jun, [facility] [address] [place] [id number] [place] [address] Jun, [facility] [address] [place] [id number] [place] [address] Jun, [facility] [address] [place] [id number] [place] [address] 18 Jun, 2014 [facility] [address] [place] [address] [id number] [place] [address] 18 Jun, 2014 [facility] [address] [place] [address] [id number] [place] [address] Jun, [facility] [address] [place] [id number] [place] [address] Jun, [facility] [place] [facility] [address] [facility] [id number] [place] [address] Apr, [facility] [place] [facility] [address] [id number] [place] [address] Apr, [facility] [place] [facility] [address] [id number] [place] [address] Apr, [facility] [place] [facility] [address] [id number] [place] [address] Apr, [facility] [place] [facility] [address] [id number] [place] [address] Apr, [facility] [place] [facility] [address] [id number] [place] [address] Apr, [facility] [place] [facility] [address] [id number] [place] [address] Apr, [facility] [place] [facility] [address] [id number] [place] [address] Apr, [facility] [place] [facility] [address] [id number] [place] [address] Mar, [facility] [place] [facility] [address] [id number] [place] [address] Mar, [facility] [place] [facility] [address] [id number] [place] [address] Mar, [facility] [place] [facility] [address] [id number] [place] [address] Mar, [facility] [place] [facility] [address] [id number] [place] [address] Mar, [facility] [place] [facility] [address] [id number] [place] [address] 18 Mar, 2014 [facility] [place] [facility] [address] [id number] [place] [address] 15 Mar, 2014 [facility] [place] [facility] [address] [id number] [place] [address] Mar, [facility] [place] [facility] [address] [id number] [place] [address] Mar, [facility] [place] [facility] [address] [id number] [place] [address] Mar, [facility] [place] [facility] [address] [id number] [place] [address] Mar, [facility] [place] [facility] [address] [id number] [place] [address] Mar, [facility] [place] [facility] [address] [id number] [place] [address] Mar, [facility] [place] [facility] [address] [id number] [place] [address] Feb, [facility] [place] [facility] [address] [id number] [place] [address] Feb, [facility] [place] [facility] [address] [place] [id number] [place] [address] Feb, [facility] [place] [facility] [address] [id number] [place] [address] Feb, [facility] [place] [facility] [address] [id number] [place] [address] Feb, [facility] [place] [facility] [address] [id number] [place] [address] Feb, [facility] [place] [facility] [address] [id number] [place] [address] Feb, [facility] [place] [facility] [address] [id number] [place] [address] Feb, [facility] [place] [facility] [address] [id number] [place] [address] Jan, [facility] [place] [facility] [address] [place] [id number] [place] [address] Jan, [facility] [place] [facility] [address] [id number] [place] [address] Jan, [facility] [place] [facility] [address] [place] [id number] [place] [address] Jan, [facility] [place] [facility] [address] [id number] [place] [address] Jan, [facility] [place] [facility] [address] [id number] [place] [address] Jan, [facility] [place] [facility] [address] [id number] [place] [address] Jan, 2013 [facility] [place] [facility] [address] [id number] [place] [address] Jan, [facility] [place] [facility] [address] [facility] [id number] [place] [address] Jan, 2013 [facility] [place] [facility] [address] [id number] [place] [address] 30 Dec, 2013 [facility] [place] [facility] [address] [id number] [place] [address] 30 Dec, 2013 [facility] [place] [facility] [address] [id number] [place] [address] 26 Dec, 2013 [facility] [place] [facility] [address] [id number] [place] [address] 26 Sep, 2013 [facility] [place] [facility] [address] [id number] [place] [address] 16 Sep, 2013 [facility] [place] [facility] [address] [id number] [place] [address] 16 Sep, 2013 [facility] [place] [facility] [address] [id number] [place] [address] 08 Sep, 2013 [facility] [place] [facility] [address] [id number] [place] [address] 08 Sep, 2013 [facility] [place] [facility] [address] [id number] [place] [address] 04 Sep, 2013 [facility] [place] [facility] [address] [id number] [place] [address] 04 Dec, 2013 [facility] [place] [facility] [address] [id number] [place] [address] 29 Nov, 2013 [facility] [place] [facility] [address] [id number] [place] [address] Nov, [facility] [place] [facility] [address] [id number] [place] [address] Nov, [facility] [place] [facility] [address] [facility] [id number] [facility] [place] [address] Nov, [facility] [place] [facility] [address] [id number] [facility] [place] [address] Nov, [facility] [place] [facility] [address] [facility] [id number] [facility] [place] [address] Nov, [facility] [place] [facility] [address] [facility] [id number] [place] [address] Nov, [facility] [place] [facility] [address] [id number] [facility] [place] [address] Nov, [facility] [place] [facility] [address] [id number] [facility] [place] [address] Nov, [facility] [place] [facility] [address] [id number] [facility] [place] [address] Nov, [facility] [place] [facility] [address] [facility] [id number] [facility] [place] [address] Nov, [facility] [place] [facility] [address] [id number] [facility] [place] [address] Nov, [facility] [place] [facility] [address] [id number] [place] [address] Nov, [facility] [place] [facility] [address] [id number] [facility] [place] [address] Oct, [facility] [place] [facility] [address] [facility] [id number] [facility] [place] [address] Oct, [facility] [place] [facility] [address] [id number] [facility] [address] Oct, [facility] [place] [facility] [address] [facility] [id number] [place] [address] Oct, [facility] [place] [facility] [address] [id number] [place] [address] Oct, [facility] [place] [facility] [address] [facility] [id number] [place] [address] Oct, [facility] [place] [facility] [address] [facility] [id number] [place] [address] Sep, [facility] [place] [facility] [address] [facility] [id number] [place] [address] Sep, [facility] [place] [facility] [address] [id number] [place] [address] Sep, [facility] [place] [facility] [address] [facility] [id number] [place] [address] Sep, [facility] [place] [facility] [address] [id number] [place] [address] Sep, [facility] [place] [facility] [address] [id number] [place] [address] Sep, [facility] [place] [address] [id number] [place] [address] Sep, [facility] [address] [id number] [place] [address] Sep, [facility] [address] [id number] [place] [address] Sep, [facility] [address] [id number] [place] [address] Sep, [facility] [address] [id number] [place] [address] Sep, [facility] [address] [id number] [place] [address] Sep, [facility] [address] [id number] [place] [address] August, [facility] [address] [id number] [place] [address] August, [facility] [address] [id number] [place] [address] Jul, [facility] [address] [id number] [place] [address] Jul, [facility] [address] [facility] [id number] [place] [address] Jul, [facility] [address] [facility] [id number] [place] [address] 24 Jul, 2013 [facility] [address] [id number] [place] [address] Jul, [facility] [address] [id number] [place] [address] Jul, [facility] [address] [facility] [id number] [place] [address] Jul, [facility] [address] [id number] [place] [address] 16 Jul, 2013 [facility] [address] [id number] [place] [address] Jul, [facility] [address] [id number] [place] [address] Jul, [facility] [address] [id number] [place] [address] Jul, [facility] [address] [id number] [place] [address] Jun, [facility] [address] [id number] [place] [address] Jun, [facility] [address] [id number] [place] [address] Jun, [facility] [address] [id number] [place] [address] Jun, [facility] [address] [id number] [place] [address] Jun, [facility] [address] [id number] [place] [address] Jun, [facility] [address] [id number] [place] [address] Jun, [facility] [address] [id number] [place] [address] Jun, [facility] [address] [facility] [id number] [place] [address] May, [facility] [address] [id number] [place] [address] May, [facility] [address] [facility] [id number] [place] [address] May, [facility] [place] [facility] [address] [id number] [place] [address] May, [facility] [place] [facility] [address] [id number] [place] [address] May, [facility] [place] [facility] [address] [id number] [place] [address] May, [facility] [place] [facility] [address] [id number] [place] [address] May, [facility] [place] [facility] [address] [id number] [place] [address] May, [facility] [place] [facility] [address] [id number] [place] [address] May, [facility] [place] [facility] [address] [id number] [place] [address] May, [facility] [place] [facility] [address] [id number] [place] [address] May, [facility] [place] [facility] [address] [id number] [place] [address] May, [facility] [place] [facility] [address] [id number] [place] [address] May, [facility] [place] [facility] [address] [id number] [place] [address] Apr, [facility] [place] [facility] [address] [id number] [place] [address] Apr, [facility] [place] [facility] [address] [id number] [place] [address] Apr, [facility] [address] [facility] [id number] [place] [address] Apr, [facility] [place] [facility] [address] [facility] [id number] [place] [address] Apr, [facility] [place] [facility] [address] [id number] [place] [address] Apr, [facility] [place] [facility] [address] [id number] [place] [address] Apr, [facility] [place] [facility] [address] [facility] [id number] [place] [address] Apr, [facility] [place] [facility] [address] [id number] [place] [address] Apr, [facility] [place] [facility] [address] [id number] [place] [address] Apr, [facility] [place] [facility] [address] [id number] [place] [address] Apr, [facility] [place] [facility] [address] [id number] [place] [address] Apr, [facility] [place] [facility] [address] [id number] [place] [address] Apr, [facility] [place] [facility] [address] [id number] [place] [address] Apr, [facility] [place] [facility] [address] [id number] [place] [address] Apr, [facility] [place] [facility] [address] [facility] [id number] [place] [address] Mar, [facility] [place] [facility] [address] [facility] [id number] [place] [address] Mar, [facility] [place] [facility] [address] [id number] [place] [address] Mar, [facility] [place] [facility] [address] [id number] [place] [address] Mar, [facility] [place] [facility] [address] [id number] [place] [address] 20 Mar, 2013 [facility] [place] [facility] [address] [id number] [place] [address] 20 Mar, 2013 [facility] [place] [facility] [address] [id number] [place] [address] 17 Mar, 2013 [facility] [place] [facility] [address] [id number] [place] [address] 17 Mar, 2013 [facility] [place] [facility] [address] [id number] [place] [address] Mar, [facility] [place] [facility] [address] [id number] [place] [address] Mar, [facility] [place] [facility] [address] [id number] [place] [address] Mar, [facility] [place] [facility] [address] [id number] [place] [address] Mar, [facility] [place] [facility] [address] [id number] [place] [address] Feb, [facility] [place] [facility] [address] [id number] [place] [address] Feb, [facility] [place] [facility] [id number] [place] [address] Feb, [facility] [place] [facility] [address] [id number] [place] [address] Feb, [facility] [place] [facility] [address] [id number] [place] [address] Feb, [facility] [place] [facility] [address] [id number] [place] [address] Feb, [facility] [place] [facility] [id number] [place] [address] Feb, [facility] [place] [facility] [address] [id number] [place] [address] Feb, [facility] [place] [facility] [address] [id number] [place] [address] Jan, [facility] [place] [facility] [address] [id number] [place] [address] Jan, [facility] [place] [facility] [address] [id number] [place] [address] Jan, [facility] [place] [facility] [address] [id number] [place] [address] Jan, [facility] [place] [facility] [address] [id number] [place] [address] Jan, [facility] [place] [facility] [address] [facility] [id number] [place] [address] Jan, [facility] [place] [facility] [address] [id number] [place] [address] Jan, [facility] [place] [facility] [address] [id number] [place] [address] Dec, [facility] [place] [facility] [address] [id number] [place] [address] Dec, [facility] [place] [facility] [address] [id number] [place] [address] Dec, [facility] [place] [facility] [address] [id number] [place] [address] Dec, [facility] [place] [facility] [address] [id number] [place] [address] Dec, [facility] [place] [facility] [address] [id number] [place] [address] Nov, [facility] [place] [facility] [address] [id number] [place] [address] Nov, [facility] [place] [facility] [address] [facility] [id number] [place] [address] Nov, [facility] [place] [facility] [address] [id number] [place] [address] Nov, [facility] [place] [facility] [address] [id number] [place] [address] Nov, [facility] [place] [facility] [address] [id number] [place] [address] Nov, [facility] [place] [facility] [address] [facility] [id number] [facility] [place] [address] Nov, [facility] [place] [facility] [address] [facility] [id number] [facility] [place] [address] Oct, [facility] [place] [facility] [address] [facility] [id number] [facility] [place] [address] Oct, [facility] [place] [facility] [address] [facility] [id number] [place] [address] Oct, [facility] [place] [facility] [address] [facility] [id number] [facility] [place] [address] Oct, [facility] [place] [facility] [address] [id number] [facility] [place] [address] Oct, [facility] [place] [facility] [address] [id number] [place] [address] Oct, [facility] [place] [facility] [address] [id number] [facility] [place] [address] Oct, [facility] [place] [facility] [address] [facility] [id number] [facility] [place] [address] Oct, [facility] [place] [facility] [address] [id number] [facility] [place] [address] Sep, [facility] [place] [facility] [address] [id number] [place] [address] Sep, [facility] [place] [facility] [address] [id number] [place] [address] Sep, [facility] [place] [facility] [address] [facility] [id number] [facility] [place] [address] Sep, [facility] [place] [facility] [address] [facility] [id number] [place] [address] Sep, [facility] [place] [facility] [address] [facility] [id number] [place] [address] Sep, [facility] [place] [facility] [address] [id number] [facility] [place] [address] August, [facility] [place] [facility] [address] [id number] [place] [address] August, [facility] [address] [id number] [place] [address] August, [facility] [place] [facility] [address] [id number] [place] [address] August, [facility] [place] [facility] [address] [id number] [place] [address] August, [facility] [place] [facility] [address] [id number] [place] [address] Jul, [facility] [place] [facility] [address] [id number] [place] [address] Jul, [facility] [place] [facility] [address] [id number] [place] [address] Jul, [facility] [place] [facility] [address] [id number] [place] [address] Jul, [facility] [place] [facility] [address] [id number] [place] [address] Jul, [facility] [place] [facility] [address] [id number] [place] [address] Jul, [facility] [place] [facility] [address] [id number] [place] [address] 14 Jun, 2012 [facility] [place] [facility] [address] [id number] [place] [address] Jun, [facility] [place] [facility] [address] [id number] [place] [address] Jun, [facility] [place] [facility] [address] [id number] [place] [address] Jun, [facility] [place] [facility] [address] [id number] [place] [address] 05 Jun, 2012 [facility] [place] [facility] [address] [id number] [place] [address] May, [facility] [place] [facility] [address] [id number] [place] [address] 13 May, 2012 [facility] [place] [facility] [address] [id number] [place] [address] May, [facility] [place] [facility] [address] [id number] [place] [address] Apr, [facility] [place] [facility] [address] [id number] [place] [address] Apr, [facility] [place] [facility] [address] [id number] [place] [address] Mar, [facility] [place] [facility] [address] [id number] [place] [address] Mar, [facility] [place] [facility] [address] [id number] [place] [address] Mar, [facility] [place] [facility] [address] [id number] [place] [address] Mar, [facility] [place] [facility] [address] [id number] [place] [address] Mar, [facility] [place] [facility] [address] [id number] [place] [address] Mar, [facility] [place] [facility] [address] [id number] [place] [address] Feb, [facility] [place] [facility] [address] [id number] [place] [address] Feb, [facility] [place] [facility] [address] [id number] [place] [address] Feb, [facility] [place] [facility] [address] [id number] [place] [address] Jan, [facility] [place] [facility] [address] [id number] [place] [address] Jan, [facility] [place] [facility] [address] [id number] [place] [address] Jan, [facility] [place] [facility] [address] [id number] [place] [address] 24 Jan, 2012 [facility] [place] [facility] [address] [id number] [place] [address] 24 Jan, 2012 [facility] [place] [facility] [address] [facility] [id number] [place] [address] Jan, [facility] [place] [facility] [address] [id number] [place] [address] 17 Jan, 2012 [facility] [place] [facility] [address] [id number] [place] [address] 16 Jan, 2012 [facility] [place] [facility] [address] [id number] [place] [address] Jan, [facility] [place] [facility] [address] [id number] [place] [address] Dec, [facility] [place] [facility] [address] [id number] [place] [address] Dec, [facility] [place] [facility] [address] [id number] [place] [address] Dec, [facility] [place] [facility] [address] [id number] [place] [address] Nov, [facility] [place] [facility] [address] [id number] [place] [address] Nov, [facility] [place] [facility] [address] [id number] [place] [address] Nov, [facility] [place] [facility] [address] [id number] [place] [address] Oct, [facility] [place] [facility] [address] [id number] [place] [address] Oct, [facility] [place] [facility] [address] [id number] [place] [address] Sep, [facility] [place] [facility] [address] [id number] [place] [address] Sep, [facility] [place] [facility] [address] [id number] [place] [address] 18 Sep, 2011 [facility] [place] [facility] [address] [id number] [place] [address] Sep, [facility] [place] [facility] [address] [id number] [place] [address] Sep, [facility] [place] [facility] [address] [id number] [place] [address] August, [facility] [place] [facility] [address] [id number] [place] [address] August, [facility] [place] [facility] [address] [id number] [place] [address] August, [facility] [place] [facility] [address] [id number] [place] [address] August, [facility] [place] [facility] [address] [id number] [place] [address] August, [facility] [place] [facility] [address] [id number] [place] [address] August, [facility] [place] [facility] [address] [id number] [place] [address] August, [facility] [place] [facility] [address] [id number] [place] [address] August, [facility] [place] [facility] [address] [id number] [place] [address] August, [facility] [place] [facility] [address] [id number] [place] [address] Jul, [facility] [place] [facility] [address] [id number] [place] [address] Jul, [facility] [place] [facility] [address] [id number] [place] [address] Jul, [facility] [place] [facility] [address] [id number] [place] [address] 04 Jul, 2011 [facility] [place] [facility] [address] [id number] [place] [address] 27 Jun, 2011 [facility] [place] [facility] [address] [id number] [place] [address] Jun, [facility] [place] [facility] [address] [id number] [place] [address] Jun, [facility] [place] [facility] [address] [id number] [facility] [address] 27 May, 2011 [facility] [place] [facility] [address] [id number] [place] [address] 24 May, 2011 [facility] [place] [facility] [address] [facility] [id number] [facility] [address] 20 May, 2011 [facility] [place] [facility] [address] [id number] [place] [address] 16 May, 2011 [facility] [place] [facility] [address] [facility] [id number] [facility] [address] 15 May, 2011 [facility] [place] [facility] [address] [id number] [place] [address] 14 May, 2011 [facility] [place] [facility] [address] [id number] [place] [address] 10 May, 2011 [facility] [place] [facility] [address] [id number] [place] [address] 09 May, 2011 [facility] [place] [facility] [address] [id number] [place] [address] 02 May, 2011 [facility] [place] [facility] [address] [id number] [place] [address] 30 Apr, 2011 [facility] [place] [facility] [address] [id number] [place] [address] Apr, [facility] [place] [facility] [address] [id number] [place] [address] Apr, [facility] [place] [facility] [address] [id number] [place] [address] 17 Apr, 2011 [facility] [place] [facility] [address] [id number] [place] [address] 16 Apr, 2011 [facility] [place] [facility] [address] [id number] [place] [address] 13 Apr, 2011 [facility] [place] [facility] [address] [id number] [place] [address] 09 Apr, 2011 [facility] [place] [facility] [id number] [place] [address] Apr, [facility] [id number] [place] [address] Apr, [facility] [id number] [place] [address] Apr, [facility] [address] [address] Apr, [facility] [address] [address] Mar, [facility] [address] [address] Mar, [facility] [address] [address] Mar, [facility] [address] [address] Mar, [facility] [address] [address] Feb, [facility] [id number] [place] [address] Feb, [facility] [address] [address] Jan, [facility] [address] [address] Nov, IMMUNIZATIONS No Known Immunizations SOCIAL HISTORY Never Assessed REASON FOR VISIT PLAN OF CARE VITAL SIGNS Height 67 in 2013-05-01 Weight 196.4 lbs 2013-05-01 Temperature 97.9 degrees Fahrenheit 2013-05-01 Heart Rate 84 bpm 2013-05-01 Respiratory Rate 20 2013-05-01 Blood pressure systolic 128 mmHg 2013-05-01 Blood pressure diastolic 79 mmHg 2013-05-01 MEDICATIONS Unknown Medications RESULTS No Results PROCEDURES Procedure Date Ordered Result Body Site COMPLETE CBC W/AUTO DIFF WBC May 01, 2013 ASSAY THYROID STIM HORMONE May 01, 2013 INSTRUCTIONS MEDICATIONS ADMINISTERED No Known Medications MEDICAL [...] laser treatment for glaucoma Hospitalization History [facility]- Right side and back pain related to fall, hurts to breathe (ED at 7 pm) 06/07/2017 [facility] [place], [place]- Anxiety ( went to ED at 1200) 06/07/2017 Hospitalization History COPD exacerbation - [facility] 2017 Hospitalization History Blood clot, port placement - [facility] 09/2017
--- OUTSIDE RECORDS SUMMARY | 2019-09-01 14:26 | XMS REPORT ---
Author Author Sophia SEGURA Organization [facility] Address [address] [place] [address] Care Team Providers Care Spine Specialist Name Role Phone HERMINIA SEGURA Unavailable PROBLEMS Type Condition ICD9-CM Code KWO29-W[place] Code Onset Dates Condition S tatus SNOMED Code Problem Proteinuria R80.9 Active 00135705 Problem Essential hypertension I10 Active 94133577 Problem Anxiety F41.9 Active 51749653 Problem Type 2 diabetes mellitus without complication E11. 9 Active 47883662 Problem Hyperlipidemia, unspecified hyperlipidemia E78.5 Active 43410184 Problem Major depressive disorder, recurrent episode, un specified severity F33.9 Active 58838261 Problem Sciatica, unspecified laterality M54.30 Active 80135666 Problem Acute cystitis with hematuria N30.01 Active 12402524 Problem Chronic pain syndrome G89.4 Active 574060349 Problem Exacerbation of systemic lupus M32.9 Active 74972421 Problem Generalized abdominal pain R10.84 Act sree 781367715 Problem Carpal tunnel syndrome, right upper limb G56.01 Active 47777885 Problem History of small bowel obstruction Z87.19 Active 293026898 Problem History of pulmonary embolism Z86.711 Active 752597084 Problem Presence of IVC filter Z95.828 Active 160446400 Problem Port catheter in place Z95.828 Active 403314037 Problem Gastroesophageal reflux disease, esophagitis pre sence not specified K21.9 Active 487829564 Problem Chronic pancreatitis, unspecified pancreatitis type K86.1 Active 324261111 Problem Hypothyroidism, unspecified type E03.9 Active 34155231 Problem Vitamin D deficiency E55.9 Active 45194992 Problem Nausea R11.0 Active 645780046 Problem Pneumonia due to infectious organism, unspecified laterality, unspecified part of lung J18.9 Active 312 853760 Problem Gastroesophageal reflux disease without esophagitis K21.9 Active 845139908 Problem Violation of controlled substance agreement Z91.14 Active 299786340 Problem Obstructive sleep apnea G47.33 Active 97332318 Problem Hypertension, benign I10 Active 11425942 Problem Venous insufficiency I87.2 Active 06848298 Problem Chronic obstructive pulmonary disease, unspecified COPD ty pe J44.9 Active 52227618 Problem Tobacco abuse counseling Z71.6 Activ e 13680925 Problem 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 A ctive 193936120 Problem Opiate dependence, continuous F11.20 Active 124093931 Problem Cannabis abuse with physiological dependence F12.1 0 Active 93123422 ALLERGIES No Information ENCOUNTERS Encounter Location Date Diagnosis [facility] [address] [address] May, [place] [address] [address] Apr, Tobacco abuse Z72.0 ; Hypertension, stefan gn I10 and Tobacco abuse counseling Z71.6 [place] [address] [address] Sep, [place] [address] [address] Sep, [facility] [address] [address] Sep, Essential hypertension I10 [place] [address] [address] Sep, [facility] [address] [address] Sep, [facility] [address] [address] Sep, Neck mass R22.1 [facility] [address] [address] August, Neck mass R22.1 [facility] [address] [facility] [id number] [address] [place] [address] Feb, Left foot pain M79.672 [facility] [address] [facility] [place] [address] Jun, Chronic pain syndrome G89.4 [facility] [place] [facility] [address] [id number] [place] [id number] May, [facility] [address] [place] [id number] [place] [address] May, [facility] [address] [place] [id number] [place] [address] May, Chronic pain syndrome G89.4 [facility] [address] [place] [id number] [place] [address] 13 May, 2017 [facility] [address] [facility] [id number] [address] [place] [address] 10 May, 2017 Encounter for immunization Z 23 and Laceration of left index finger without foreign body without damage to nail, initial encounter S61.211A [place] [address] [address] 09 May, 2017 Chronic pain syndrome G89.4 [facility] [address] [place] [id number] [place] [address] May, [facility] [address] [address] Apr, Cannabis abuse with physiological depend ence F12.10 ; Violation of controlled substance agreement Z91.14 and Opiate dependence, continuous F11.20 [facility] [address] [place] [id number] [place] [address] Apr, Type 2 diabetes mellitus without complic ation E11.9 [facility] [address] [place] [id number] [place] [address] Apr, [facility] [address] [address] Apr, Chronic pain syndrome G89.4 [facility] [address] [place] [id number] [place] [address] Apr, Viral syndrome B34.9 [facility] [address] [address] Apr, [facility] [address] [address] Mar, Chronic pain syndrome G89.4 [facility] [address] [address] Mar, [facility] [address] [address] Mar, [facility] [address] [address] Feb, Essential hypertension I10 ; Chronic nataly n syndrome G89.4 ; Hyperlipidemia, unspecified hyperlipidemia E78.5 ; 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 and Encounter for immunization Z23 [place] [address] [address] Feb, Chronic pain syndrome G89.4 [facility] [address] [address] Jan, Chronic pain syndrome G89.4 [facility] [address] [address] Jan, [facility] [address] [address] Jan, Bronchitis J40 ; Port catheter in place Z95.828 and Chronic pain syndrome G89.4 [facility] [address] [id number] [place] [id number] Jan, [facility] [address] [address] 22 Dec, 2016 Chronic pain syndrome G89.4 [facility] [address] [address] 18 Dec, 2016 Chronic pain syndrome G89.4 [facility] [address] [address] 08 Dec, 2016 [facility] [address] [address] Nov, [facility] [address] [address] Nov, Chronic pain syndrome G89.4 [facility] [address] [place] [id number] [place] [address] Oct, Chronic pain syndrome G89.4 [facility] [address] [place] [id number] [place] [address] Oct, [facility] [address] [address] Sep, Chronic pain syndrome G89.4 [facility] [address] [address] Sep, Exacerbation of systemic lupus M32.9 [facility] [address] [address] Sep, [facility] [address] [address] Sep, [facility] [address] [address] Sep, Nausea R11.0 [facility] [address] [address] August, Chronic pain syndrome G89.4 [facility] [address] [address] August, [facility] [address] [address] August, Chronic pain syndrome G89.4 [facility] [address] [address] Jul, Pneumonia due to infectious organism, un specified laterality, unspecified part of lung J18.9 and Tobacco abuse counseling Z71.6 [facility] [address] [place] [id number] [place] [address] Jul, Chronic pain syndrome G89.4 [facility] [address] [place] [id number] [place] [address] Jun, Essential hypertension I10 [facility] [address] [address] Jun, Pneumonia due to infectious organism, un specified laterality, unspecified part of lung J18.9 [place] [address] [address] Jun, Chronic pain syndrome G89.4 [place] [address] [address] 10 May, 2016 Essential hypertension I10 ; Type 2 diab [...] and Gastroesophageal reflux disease without esophagitis K21.9 [place] [address] [address] Apr, [address] [address] Apr, Pneumonia due to infectious organism, un specified laterality, unspecified part of lung J18.9 and Nausea R11.0 [place] [address] [address] Apr, Essential hypertension I10 ; Chronic nataly n syndrome G89.4 ; Type 2 diabetes mellitus without complication E11.9 ; Hyperlipidemia, unspecified hyperlipidemia E78.5 ; Major depressive disorder, recurrent episode, unspecified severity F33.9 ; Sciatica, unspecified laterality M54.30 ; Chronic obstructive pulmonary disease, unspecified COPD type J44.9 ; Pneumonia due to infectious organism, unspecified laterality, unspecified part of lung J18.9 and Nausea R11.0 [facility] [address] [facility] [id number] [address] [place] [address] Mar, [address] [address] Mar, [place] [id number] [address] Mar, [place] [address] [address] Mar, Anxiety F41.9 and Major depressive disor rita, recurrent episode, unspecified severity F33.9 [place] [address] [address] Mar, [place] [address] [address] Mar, [place] [address] [address] Mar, Generalized abdominal pain R10.84 ; Acut e cystitis with hematuria N30.01 and Essential hypertension I10 [facility] [place] [id number] [address] [place] [address] Mar, Sore throat J02.9 and Exacer bation of systemic lupus M32.9 [place] [address] [address] Feb, Type 2 diabetes mellitus without complic [...] reflux disease, esophagitis presence not specified K21.9 [place] [address] [address] Feb, [place] [address] [address] Jan, [facility] [place] [id number] [address] [place] [address] Jan, Right arm pain M79.601 [address] train of right wrist, initial encounter S66.911A [place] [address] [address] Jan, [facility] [address] [facility] [id number] [address] [place] [address] 30 Dec, 2015 Generalized abdominal pain R 10.84 [place] [address] [address] 23 Dec, 2015 Adenopathy R59.1 [place] [address] [address] 19 Dec, 2015 Bronchitis J40 [place] [address] [address] 14 Dec, 2015 [place] [address] [address] Dec, Essential hypertension I10 [place] [address] [address] Nov, [place] [address] [address] Nov, [place] [address] [address] Nov, Essential hypertension I10 ; Hyperlipide martha, [...] Type 2 diabetes mellitus without complication E11.9 [place] [address] [address] Nov, [facility] [address] [address] Oct, Type 2 diabetes mellitus without complic ation E11.9 ; Essential hypertension I10 ; Other viral warts B07.8 ; Tridell or callus L84 and Hyperlipidemia, unspecified hyperlipidemia E78.5 [facility] [address] [address] Sep, [facility] [address] [address] Sep, [facility] [address] [address] Jun, [facility] [address] [address] Jun, [facility] [address] [address] May, [facility] [address] [address] Apr, [facility] [address] [address] Feb, [facility] [address] [address] Feb, COPD exacerbation J44.1 and Acute upper respiratory infection J06.9 [facility] [address] [address] Feb, [facility] [address] [address] Feb, [facility] [address] [address] Feb, [facility] [address] [address] Feb, [facility] [address] [address] Jan, Left hip pain M25.552 [facility] [address] [facility] [place] [address] Jan, Essential hypertension I10 ; Chronic nataly n syndrome G89.4 ; Type 2 diabetes mellitus without complication E11.9 and Hyperlipidemia, unspecified hyperlipidemia E78.5 [facility] [address] [id number] [place] [address] 28 Jul, 2014 [facility] [address] [place] [id number] [place] [address] 14 Jul, 2014 [facility] [address] [id number] [place] [address] Jul, [facility] [address] [place] [id number] [place] [address] 25 Jun, 2014 [facility] [address] [place] [id number] [place] [address] Jun, [facility] [address] [place] [id number] [place] [address] Jun, [facility] [address] [place] [id number] [place] [address] Jun, [facility] [address] [place] [id number] [place] [address] Jun, [facility] [address] [place] [id number] [place] [address] Jun, [facility] [address] [place] [id number] [place] [address] Jun, [facility] [address] [place] [id number] [place] [address] Jun, [facility] [address] [place] [id number] [place] [address] 18 Jun, 2014 [facility] [address] [place] [id number] [place] [address] 18 Jun, 2014 [facility] [address] [id number] [place] [address] Jun, [facility] [address] [place] [id number] [place] [address] Jun, [facility] [place] [facility] [address] [id number] [place] [address] Apr, [facility] [place] [facility] [address] [id number] [place] [address] Apr, [facility] [place] [facility] [address] [id number] [place] [address] Apr, [facility] [place] [facility] [address] [id number] [place] [address] Apr, [facility] [place] [facility] [address] [id number] [place] [address] Apr, [facility] [place] [facility] [address] [id number] [place] [address] Apr, [facility] [place] [facility] [address] [id number] [place] [address] Apr, [facility] [place] [facility] [address] [id number] [place] [address] Apr, [facility] [place] [facility] [address] [id number] [place] [address] Mar, [facility] [place] [facility] [address] [id number] [place] [address] Mar, [facility] [place] [facility] [address] [id number] [place] [address] Mar, [facility] [place] [facility] [address] [id number] [place] [address] Mar, [facility] [place] [facility] [address] [id number] [place] [address] Mar, [facility] [place] [facility] [address] [id number] [place] [address] 18 Mar, 2014 [facility] [place] [facility] [address] [id number] [place] [address] 15 Mar, 2014 [facility] [place] [facility] [address] [id number] [place] [address] Mar, [facility] [place] [facility] [address] [id number] [place] [address] Mar, [facility] [place] [facility] [address] [id number] [place] [address] Mar, [facility] [place] [facility] [address] [id number] [place] [address] Mar, [facility] [place] [facility] [address] [id number] [place] [address] Mar, [facility] [place] [facility] [address] [id number] [place] [address] Mar, [facility] [place] [facility] [address] [id number] [place] [address] Feb, [facility] [place] [facility] [address] [id number] [place] [address] Feb, [facility] [place] [facility] [address] [id number] [place] [address] Feb, [facility] [place] [facility] [address] [id number] [place] [address] Feb, [facility] [place] [facility] [address] [id number] [place] [address] Feb, [facility] [place] [facility] [address] [id number] [place] [address] Feb, [facility] [place] [facility] [address] [id number] [place] [address] Feb, [facility] [place] [facility] [address] [id number] [place] [address] Feb, [facility] [place] [facility] [address] [id number] [place] [address] Jan, [facility] [place] [facility] [address] [place] [id number] [place] [address] Jan, [facility] [place] [facility] [address] [id number] [place] [address] Jan, [facility] [place] [facility] [address] [place] [id number] [place] [address] Jan, [facility] [place] [facility] [address] [id number] [place] [address] Jan, [facility] [place] [facility] [address] [id number] [place] [address] Jan, [facility] [place] [facility] [address] [id number] [place] [address] Jan, 2013 [facility] [place] [facility] [address] [id number] [place] [address] Jan, [facility] [place] [facility] [address] [id number] [place] [address] Jan, [facility] [place] [facility] [address] [id number] [place] [address] 30 Dec, 2013 [facility] [place] [facility] [address] [id number] [place] [address] 30 Dec, 2013 [facility] [place] [facility] [address] [id number] [place] [address] 26 Dec, 2013 [facility] [place] [facility] [address] [id number] [place] [address] 26 Dec, 2013 [facility] [place] [facility] [address] [id number] [place] [address] 16 Dec, 2013 [facility] [place] [facility] [address] [id number] [place] [address] 16 Sep, 2013 [facility] [place] [facility] [address] [id number] [place] [address] 08 Sep, 2013 [facility] [place] [facility] [address] [id number] [place] [address] 08 Sep, 2013 [facility] [place] [facility] [address] [id number] [place] [address] 04 Sep, 2013 [facility] [place] [facility] [address] [id number] [place] [address] 04 Dec, 2013 [facility] [place] [facility] [address] [id number] [place] [address] 29 Nov, 2013 [facility] [place] [facility] [address] [id number] [facility] [place] [address] Nov, [facility] [place] [facility] [address] [id number] [facility] [place] [address] Nov, [facility] [place] [facility] [address] [facility] [id number] [place] [address] Nov, [facility] [place] [facility] [address] [id number] [facility] [place] [address] Nov, [facility] [place] [facility] [address] [facility] [id number] [place] [address] Nov, [facility] [place] [facility] [address] [facility] [id number] [place] [address] Nov, [facility] [place] [facility] [address] [id number] [facility] [place] [address] Nov, [facility] [place] [facility] [address] [id number] [facility] [place] [address] Nov, [facility] [place] [facility] [address] [id number] [facility] [place] [address] Nov, [facility] [place] [facility] [address] [id number] [facility] [place] [address] Nov, [facility] [place] [facility] [address] [id number] [facility] [place] [address] Nov, [facility] [place] [facility] [address] [id number] [place] [address] Nov, [facility] [place] [facility] [address] [id number] [place] [address] Oct, [facility] [place] [facility] [address] [facility] [id number] [facility] [place] [address] Oct, [facility] [place] [facility] [address] [id number] [place] [address] Oct, [facility] [place] [facility] [address] [id number] [place] [address] Oct, [facility] [place] [facility] [address] [id number] [place] [address] Oct, [facility] [place] [facility] [address] [facility] [id number] [place] [address] Oct, [facility] [place] [facility] [address] [facility] [id number] [place] [address] Sep, [facility] [place] [facility] [address] [facility] [id number] [place] [address] Sep, [facility] [place] [facility] [address] [id number] [place] [address] Sep, [facility] [address] [facility] [id number] [place] [address] Sep, [facility] [address] [facility] [id number] [place] [address] Sep, [facility] [address] [id number] [place] [address] Sep, [facility] [address] [id number] [place] [address] Sep, [facility] [address] [id number] [place] [address] Sep, [facility] [address] [id number] [place] [address] Sep, [facility] [address] [id number] [place] [address] Sep, [facility] [address] [id number] [place] [address] Sep, [facility] [address] [id number] [place] [address] Sep, [facility] [address] [facility] [id number] [place] [address] August, [facility] [address] [id number] [place] [address] August, [facility] [address] [id number] [place] [address] Jul, [facility] [address] [id number] [place] [address] Jul, [facility] [address] [facility] [id number] [place] [address] Jul, [facility] [address] [id number] [place] [address] 24 Jul, 2013 [facility] [address] [id number] [place] [address] Jul, [facility] [address] [id number] [place] [address] Jul, [facility] [address] [facility] [id number] [place] [address] Jul, [facility] [address] [id number] [place] [address] 16 Jul, 2013 [facility] [address] [id number] [place] [address] Jul, [facility] [address] [id number] [place] [address] Jul, [facility] [address] [id number] [place] [address] Jul, [facility] [address] [id number] [place] [address] Jun, [facility] [address] [id number] [place] [address] Jun, [facility] [address] [id number] [place] [address] Jun, [facility] [address] [id number] [place] [address] Jun, [facility] [address] [id number] [place] [address] Jun, [facility] [address] [id number] [place] [address] Jun, [facility] [address] [id number] [place] [address] Jun, [facility] [address] [id number] [place] [address] Jun, [facility] [address] [facility] [id number] [place] [address] May, [facility] [address] [id number] [place] [address] May, [facility] [address] [id number] [place] [address] May, [facility] [address] [id number] [place] [address] May, [facility] [address] [id number] [place] [address] May, [facility] [address] [id number] [place] [address] May, [facility] [address] [id number] [place] [address] May, [facility] [address] [id number] [place] [address] May, [facility] [address] [id number] [place] [address] May, [facility] [address] [id number] [place] [address] May, [facility] [address] [id number] [place] [address] May, [facility] [address] [id number] [place] [address] May, [facility] [address] [id number] [place] [address] May, [facility] [address] [id number] [place] [address] Apr, [facility] [address] [id number] [place] [address] Apr, [facility] [address] [id number] [place] [address] Apr, [facility] [address] [id number] [place] [address] Apr, [facility] [address] [id number] [place] [address] Apr, [facility] [address] [id number] [place] [address] Apr, [facility] [address] [id number] [place] [address] Apr, [facility] [address] [facility] [id number] [place] [address] Apr, [facility] [address] [id number] [place] [address] Apr, [facility] [address] [id number] [place] [address] Apr, [facility] [address] [id number] [place] [address] Apr, [facility] [address] [id number] [place] [address] Apr, [facility] [address] [id number] [place] [address] Apr, [facility] [address] [id number] [place] [address] Apr, [facility] [address] [id number] [place] [address] Apr, [facility] [address] [id number] [place] [address] Mar, [facility] [address] [id number] [place] [address] Mar, [facility] [address] [id number] [place] [address] Mar, [facility] [address] [id number] [place] [address] Mar, [facility] [address] [id number] [place] [address] 20 Mar, 2013 [facility] [address] [id number] [place] [address] Mar, [facility] [address] [id number] [place] [address] Mar, [facility] [address] [id number] [place] [address] 17 Mar, 2013 [facility] [address] [id number] [place] [address] Mar, [facility] [address] [id number] [place] [address] Mar, [facility] [address] [id number] [place] [address] Mar, [facility] [address] [id number] [place] [address] Mar, [facility] [address] [id number] [place] [address] Feb, [facility] [address] [id number] [place] [address] Feb, [facility] [address] [id number] [place] [address] Feb, [facility] [address] [id number] [place] [address] Feb, [facility] [address] [id number] [place] [address] Feb, [facility] [address] [id number] [place] [address] Feb, [facility] [id number] [place] [address] Feb, [facility] [address] [id number] [place] [address] Feb, [facility] [address] [id number] [place] [address] Jan, [facility] [address] [id number] [place] [address] Jan, [facility] [address] [facility] [id number] [place] [address] Jan, [facility] [address] [facility] [id number] [place] [address] Jan, [facility] [address] [id number] [place] [address] Jan, [facility] [address] [facility] [id number] [place] [address] Jan, [facility] [address] [facility] [id number] [place] [address] Jan, [facility] [address] [id number] [place] [address] Dec, [facility] [address] [id number] [place] [address] Dec, [facility] [address] [id number] [place] [address] Dec, [facility] [address] [id number] [place] [address] Dec, [facility] [address] [id number] [place] [address] Dec, [facility] [address] [id number] [place] [address] Nov, [facility] [address] [id number] [place] [address] Nov, [facility] [address] [facility] [id number] [place] [address] Nov, [facility] [address] [id number] [place] [address] Nov, [facility] [address] [id number] [place] [address] Nov, [facility] [address] [id number] [place] [address] Nov, [facility] [address] [id number] [place] [address] Nov, [facility] [address] [facility] [id number] [facility] [place] [address] Oct, [facility] [address] [id number] [place] [address] Oct, [facility] [address] [id number] [facility] [place] [address] Oct, [facility] [address] [facility] [id number] [facility] [place] [address] Oct, [facility] [address] [id number] [place] [address] Oct, [facility] [address] [id number] [place] [address] Oct, [facility] [address] [id number] [place] [address] Oct, [facility] [address] [id number] [place] [address] Oct, [facility] [address] [id number] [place] [address] Sep, [facility] [address] [id number] [place] [address] Sep, [facility] [address] [id number] [place] [address] Sep, [facility] [address] [id number] [place] [address] Sep, [facility] [address] [id number] [place] [address] Sep, [facility] [address] [id number] [place] [address] Sep, [facility] [address] [id number] [place] [address] August, [facility] [address] [id number] [place] [address] August, [facility] [address] [id number] [facility] [place] [address] August, [facility] [address] [id number] [place] [address] August, [facility] [address] [id number] [place] [address] August, [facility] [address] [id number] [place] [address] Jul, [facility] [address] [id number] [place] [address] Jul, [facility] [address] [id number] [place] [address] Jul, [facility] [address] [id number] [place] [address] Jul, [facility] [address] [id number] [place] [address] Jul, [facility] [address] [id number] [place] [address] Jul, [facility] [address] [id number] [place] [address] Jun, [facility] [address] [id number] [place] [address] Jun, [facility] [address] [id number] [place] [address] Jun, [facility] [address] [id number] [place] [address] Jun, [facility] [address] [id number] [place] [address] 05 Jun, 2012 [facility] [address] [id number] [place] [address] May, [facility] [address] [id number] [place] [address] May, [facility] [address] [id number] [place] [address] May, [facility] [address] [id number] [place] [address] Apr, [facility] [address] [id number] [place] [address] Apr, [facility] [id number] [place] [address] Mar, [facility] [address] [id number] [place] [address] Mar, [facility] [address] [id number] [place] [address] Mar, [facility] [address] [id number] [place] [address] Mar, [facility] [id number] [place] [address] Mar, [facility] [id number] [place] [address] Mar, [facility] [address] [id number] [place] [address] Feb, [facility] [id number] [place] [address] Feb, [facility] [id number] [place] [address] Feb, [facility] [address] [id number] [place] [address] Jan, [facility] [address] [id number] [place] [address] Jan, [facility] [id number] [place] [address] Jan, [facility] [address] [id number] [place] [address] Jan, [facility] [id number] [place] [address] Jan, 2012 [facility] [address] [facility] [id number] [place] [address] Jan, [facility] [address] [facility] [id number] [place] [address] Jan, [facility] [address] [id number] [place] [address] 16 Jan, 2012 [facility] [address] [id number] [place] [address] Jan, [facility] [address] [facility] [id number] [place] [address] 18 Dec, 2011 [facility] [address] [id number] [place] [address] Dec, [facility] [address] [id number] [place] [address] Dec, [facility] [address] [id number] [place] [address] Nov, [facility] [address] [id number] [place] [address] Nov, [facility] [address] [id number] [place] [address] Nov, [facility] [address] [id number] [place] [address] Oct, [facility] [address] [id number] [place] [address] Oct, [facility] [address] [id number] [place] [address] Sep, [facility] [address] [facility] [id number] [place] [address] Sep, [facility] [address] [id number] [place] [address] 18 Sep, 2011 [facility] [address] [id number] [place] [address] Sep, [facility] [address] [id number] [place] [address] Sep, [facility] [address] [id number] [place] [address] August, [facility] [address] [id number] [place] [address] August, [facility] [address] [id number] [place] [address] August, [facility] [address] [id number] [place] [address] August, [facility] [address] [id number] [place] [address] August, [facility] [address] [id number] [place] [address] August, [facility] [address] [id number] [place] [address] August, [facility] [address] [id number] [place] [address] August, [facility] [address] [id number] [place] [address] August, [facility] [address] [id number] [place] [address] Jul, [facility] [address] [id number] [place] [address] Jul, [facility] [address] [id number] [place] [address] Jul, [facility] [address] [id number] [place] [address] 04 Jul, 2011 [facility] [address] [id number] [place] [address] 27 Jun, 2011 [facility] [address] [id number] [place] [address] Jun, [facility] [address] [id number] [place] [address] Jun, [facility] [address] [facility] [id number] [facility] [place] [address] May, [facility] [address] [id number] [place] [address] 24 May, 2011 [facility] [address] [id number] [facility] [place] [address] 20 May, 2011 [facility] [address] [id number] [place] [address] 16 May, 2011 [facility] [address] [id number] [facility] [place] [address] 15 May, 2011 [facility] [address] [id number] [place] [address] 14 May, 2011 [facility] [address] [id number] [place] [address] 10 May, 2011 [facility] [address] [id number] [place] [address] 09 May, 2011 [facility] [address] [id number] [place] [address] 02 May, 2011 [facility] [address] [id number] [place] [address] Apr, [facility] [address] [id number] [place] [address] Apr, [facility] [address] [id number] [place] [address] Apr, [facility] [address] [id number] [place] [address] 17 Apr, 2011 [facility] [address] [id number] [place] [address] 16 Apr, 2011 [facility] [address] [id number] [place] [address] Apr, [facility] [address] [id number] [place] [address] Apr, [facility] [id number] [place] [address] Apr, [facility] [address] [address] Apr, [facility] [id number] [place] [address] Apr, [facility] [address] [address] Apr, [facility] [address] [address] Mar, [facility] [address] [address] Mar, [facility] [address] [address] Mar, [facility] [address] [address] Mar, [facility] [address] [address] Feb, [facility] [address] [address] Feb, [facility] [address] [address] Jan, [facility] [address] [address] Nov, IMMUNIZATIONS No Known Immunizations SOCIAL HISTORY [...] laser treatment for glaucoma Hospitalization History ED [employer]- Right side and back pain related to fall, hurts to breathe (ED at 7 pm) 06/07/2017 Hospitalization History [facility] [place]- Anxiety ( went to ED at 1200) 06/07/2017 Hospitalization History COPD exacerbation - [facility]ano 2017 Hospitalization History Blood clot, port placement - [facility]ano 09/2017
--- OUTSIDE RECORDS SUMMARY | 2019-09-01 14:26 | XMS REPORT ---
Author Author Sophia HOWARD [facility] Address [address] [place] [address] Care Team Providers Care Skin Care Instructor Name Role Phone MILEY HOWARD Unavailable PROBLEMS Type Condition ICD9-CM Code VLB34-HX Code Onset Dates Condition S tatus SNOMED Code Problem Proteinuria R80.9 Active 51013840 Problem Essential hypertension I10 Active 83954099 Problem Anxiety F41.9 Active 20380438 Problem Type 2 diabetes mellitus without complication E11. 9 Active 59957031 Problem Hyperlipidemia, unspecified hyperlipidemia E78.5 Active 88650550 Problem Major depressive disorder, recurrent episode, un specified severity F33.9 Active 81415401 Problem Sciatica, unspecified laterality M54.30 Active 36131108 Problem Acute cystitis with hematuria N30.01 Active 65227066 Problem Chronic pain syndrome G89.4 Active 241848781 Problem Exacerbation of systemic lupus M32.9 Active 77167075 Problem Generalized abdominal pain R10.84 Act sree 319948909 Problem Carpal tunnel syndrome, right upper limb G56.01 Active 82547343 Problem History of small bowel obstruction Z87.19 Active 888002868 Problem History of pulmonary embolism Z86.711 Active 675377561 Problem Presence of IVC filter Z95.828 Active 577781302 Problem Port catheter in place Z95.828 Active 756247503 Problem Gastroesophageal reflux disease, esophagitis pre sence not specified K21.9 Active 619405662 Problem Chronic pancreatitis, unspecified pancreatitis type K86.1 Active 566418148 Problem Hypothyroidism, unspecified type E03.9 Active 07652449 Problem Vitamin D deficiency E55.9 Active 52238866 Problem Nausea R11.0 Active 348833492 Problem Pneumonia due to infectious organism, unspecified laterality, unspecified part of lung J18.9 Active 312 003773 Problem Gastroesophageal reflux disease without esophagitis K21.9 Active 069928775 Problem Violation of controlled substance agreement Z91.14 Active 271945057 Problem Obstructive sleep apnea G47.33 Active 92705447 Problem Hypertension, benign I10 Active 23843167 Problem Venous insufficiency I87.2 Active 44547031 Problem Chronic obstructive pulmonary disease, unspecified COPD ty pe J44.9 Active 78553342 Problem Tobacco abuse counseling Z71.6 Activ e 33107813 Problem 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 A ctive 075675124 Problem Opiate dependence, continuous F11.20 Active 207356367 Problem Cannabis abuse with physiological dependence F12.1 0 Active 10577985 ALLERGIES No Information ENCOUNTERS Encounter Location Date Diagnosis [facility] [address] [address] May, [place] [address] [address] Apr, Tobacco abuse Z72.0 ; Hypertension, stefan gn I10 and Tobacco abuse counseling Z71.6 [place] [address] [address] Sep, [place] [address] [address] Sep, [facility] [address] [address] Sep, Essential hypertension I10 [place] [address] [address] Sep, [place] [address] [address] Sep, [place] [address] [address] Sep, Neck mass R22.1 [facility] [address] [address] August, Neck mass R22.[address] [facility] [address] [facility] [id number] [address] [place] [address] Feb, Left foot pain M79.672 [facility] [address] [address] Jun, Chronic pain syndrome G89.4 [facility] [id number] [id number] May, [facility] [address] [place] [address] [place] [address] May, [facility] [address] [place] [address] [place] [address] May, Chronic pain syndrome G89.4 [facility] [address] [address] 13 May, 2017 [facility] [address] [facility] [id number] [address] [place] [address] 10 May, 2017 Encounter for immunization Z 23 and Laceration of left index finger without foreign body without damage to nail, initial encounter S61.211A [place] [address] [address] 09 May, 2017 Chronic pain syndrome G89.4 [facility] [address] [place] [address] [place] [address] May, [place] [address] [address] Apr, Cannabis abuse with physiological depend ence F12.10 ; Violation of controlled substance agreement Z91.14 and Opiate dependence, continuous F11.20 [place] [address] [address] Apr, Type 2 diabetes mellitus without complic ation E11.9 [facility] [address] [address] Apr, [place] [address] [address] Apr, Chronic pain syndrome G89.4 [facility] [address] [place] [address] [place] [address] Apr, Viral syndrome B34.9 [facility] [address] [address] Apr, [facility] [address] [address] Mar, Chronic pain syndrome G89.4 [facility] [address] [address] Mar, [facility] [address] [address] Mar, [facility] [address] [address] Feb, Essential hypertension I10 ; Chronic nataly n syndrome G89.4 ; Hyperlipidemia, unspecified hyperlipidemia E78.5 ; 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 and Encounter for immunization Z23 [facility] [address] [address] Feb, Chronic pain syndrome G89.4 [facility] [address] [address] Jan, Chronic pain syndrome G89.4 [facility] [address] [address] Jan, [facility] [address] [address] Jan, Bronchitis J40 ; Port catheter in place Z95.828 and Chronic pain syndrome G89.4 [facility] [address] [id number] [place] [id number] Jan, [facility] [address] [address] 22 Dec, 2016 Chronic pain syndrome G89.4 [facility] [address] [place] [id number] [place] [address] 18 Dec, 2016 Chronic pain syndrome G89.4 [facility] [address] [address] 08 Dec, 2016 [facility] [address] [address] Nov, [facility] [address] [place] [address] [place] [address] Nov, Chronic pain syndrome G89.4 [facility] [address] [address] Oct, Chronic pain syndrome G89.4 [facility] [address] [address] Oct, [facility] [address] [address] Sep, Chronic pain syndrome G89.4 [facility] [address] [address] Sep, Exacerbation of systemic lupus M32.9 [facility] [address] [address] Sep, [facility] [address] [address] Sep, [facility] [address] [address] Sep, Nausea R11.0 [facility] [address] [address] August, Chronic pain syndrome G89.4 [facility] [address] [address] August, [facility] [address] [address] August, Chronic pain syndrome G89.4 [facility] [address] [address] Jul, Pneumonia due to infectious organism, un specified laterality, unspecified part of lung J18.9 and Tobacco abuse counseling Z71.6 [facility] [address] [address] Jul, Chronic pain syndrome G89.4 [facility] [address] [address] Jun, Essential hypertension I10 [place] [address] [address] Jun, Pneumonia due to infectious organism, un specified laterality, unspecified part of lung J18.9 [place] [address] [address] Jun, Chronic pain syndrome G89.4 [place] [address] [address] May, Essential hypertension I10 ; Type 2 [...] reflux disease without esophagitis K21.9 [place] [address] [address] Apr, [address] [address] Apr, Pneumonia due to infectious organism, un specified laterality, unspecified part of lung J18.9 and Nausea R11.[address] [address] Apr, Essential hypertension I10 ; Chronic nataly n syndrome G89.4 ; Type 2 diabetes mellitus without complication E11.9 ; Hyperlipidemia, unspecified hyperlipidemia E78.5 ; Major depressive disorder, recurrent episode, unspecified severity F33.9 ; Sciatica, unspecified laterality M54.30 ; Chronic obstructive pulmonary disease, unspecified COPD type J44.9 ; Pneumonia due to infectious organism, unspecified laterality, unspecified part of lung J18.9 and Nausea R11.0 [facility] [address] [facility] [id number] [address] [place] [address] Mar, [address] [address] Mar, [facility] [address] [address] Mar, [place] [address] [address] Mar, Anxiety F41.9 and Major depressive disor rita, recurrent episode, unspecified severity F33.9 [place] [address] [address] Mar, [place] [address] [address] Mar, [place] [address] [address] Mar, Generalized abdominal pain R10.84 ; Acut e cystitis with hematuria N30.01 and Essential hypertension I10 [facility] [place] [id number] [address] [place] [address] Mar, Sore throat J02.9 and Exacer bation of systemic lupus M32.9 [place] [address] [address] Feb, Type 2 diabetes mellitus without complic [...] esophagitis presence not specified K21.9 [place] [address] [address] Feb, [place] [address] [address] Jan, [facility] [place] [address] [place] [id number] [address] [place] [address] Jan, Right arm pain M79.601 and S train of right wrist, initial encounter S66.911A [place] [address] [address] Jan, [facility] [address] [facility] [id number] [place] [address] 30 Dec, 2015 Generalized abdominal pain R 10.84 [place] [address] [address] 23 Dec, 2015 Adenopathy R59.1 [place] [address] [address] 19 Dec, 2015 Bronchitis J40 [place] [address] [address] 14 Dec, 2015 [place] [address] [address] Dec, Essential hypertension I10 [place] [address] [address] Nov, [place] [address] [address] Nov, [place] [address] [address] Nov, Essential hypertension I10 ; Hyperlipide martha, [...] diabetes mellitus without complication E11.9 [place] [address] [address] Nov, [facility] [address] [address] Oct, Type 2 diabetes mellitus without complic ation E11.9 ; Essential hypertension I10 ; Other viral warts B07.8 ; [place] or callus L84 and Hyperlipidemia, unspecified hyperlipidemia E78.5 [facility] [address] [address] Sep, [facility] [address] [address] Sep, [facility] [address] [address] Jun, [facility] [address] [address] Jun, [facility] [address] [address] May, [facility] [address] [address] Apr, [facility] [address] [address] Feb, [facility] [address] [address] Feb, COPD exacerbation J44.1 and Acute upper respiratory infection J06.9 [facility] [address] [address] Feb, [facility] [address] [address] Feb, [facility] [address] [address] Feb, [facility] [address] [address] Feb, [facility] [address] [address] Jan, Left hip pain M25.552 [facility] [address] [id number] [place] [address] Jan, Essential hypertension I10 ; Chronic nataly n syndrome G89.4 ; Type 2 diabetes mellitus without complication E11.9 and Hyperlipidemia, unspecified hyperlipidemia E78.5 [facility] [address] [id number] [place] [address] 28 Jul, 2014 [facility] [address] [place] [id number] [place] [address] 14 Jul, 2014 [facility] [address] [id number] [place] [address] 13 Jul, 2014 [facility] [address] [place] [id number] [place] [address] 25 Jun, 2014 [facility] [address] [place] [id number] [place] [address] Jun, [facility] [address] [place] [id number] [place] [address] Jun, [facility] [address] [id number] [place] [address] Jun, [facility] [address] [place] [id number] [place] [address] Jun, [facility] [address] [place] [id number] [place] [address] Jun, [facility] [address] [place] [id number] [place] [address] Jun, [facility] [address] [place] [id number] [place] [address] Jun, [facility] [address] [place] [id number] [place] [address] 18 Jun, 2014 [facility] [address] [place] [id number] [place] [address] 18 Jun, 2014 [facility] [address] [place] [id number] [place] [address] Jun, [facility] [address] [place] [id number] [place] [address] Jun, [facility] [address] [id number] [place] [address] Apr, [facility] [address] [id number] [place] [address] Apr, [facility] [address] [id number] [place] [address] Apr, [facility] [address] [id number] [place] [address] Apr, [facility] [address] [id number] [place] [address] Apr, [facility] [address] [id number] [place] [address] Apr, [facility] [address] [id number] [place] [address] Apr, [facility] [address] [id number] [place] [address] Apr, [facility] [address] [id number] [place] [address] Mar, [facility] [address] [id number] [place] [address] Mar, [facility] [address] [id number] [place] [address] Mar, [facility] [address] [id number] [place] [address] Mar, [facility] [address] [id number] [place] [address] Mar, [facility] [address] [id number] [place] [address] 18 Mar, 2014 [facility] [address] [id number] [place] [address] 15 Mar, 2014 [facility] [address] [id number] [place] [address] Mar, [facility] [address] [id number] [place] [address] Mar, [facility] [address] [id number] [place] [address] Mar, [facility] [address] [id number] [place] [address] Mar, [facility] [address] [id number] [place] [address] Mar, [facility] [address] [id number] [place] [address] Mar, [facility] [address] [id number] [place] [address] Feb, [facility] [address] [id number] [place] [address] Feb, [facility] [address] [place] [id number] [place] [address] Feb, [facility] [address] [id number] [place] [address] Feb, [facility] [address] [id number] [place] [address] Feb, [facility] [address] [place] [id number] [place] [address] Feb, [facility] [address] [id number] [place] [address] Feb, [facility] [address] [id number] [place] [address] Feb, [facility] [address] [id number] [place] [address] Jan, [facility] [address] [place] [id number] [place] [address] Jan, [facility] [address] [id number] [place] [address] Jan, [facility] [address] [id number] [place] [address] Jan, [facility] [address] [facility] [id number] [place] [address] Jan, [facility] [address] [facility] [id number] [place] [address] 23 Jan, 2014 [facility] [address] [id number] [place] [address] Jan, [facility] [address] [id number] [place] [address] Jan, [facility] [address] [facility] [id number] [place] [address] Jan, [facility] [address] [id number] [place] [address] 30 Dec, 2013 [facility] [address] [id number] [place] [address] 30 Dec, 2013 [facility] [address] [id number] [place] [address] 26 Dec, 2013 [facility] [address] [id number] [place] [address] 26 Sep, 2013 [facility] [address] [id number] [place] [address] 16 Dec, 2013 [facility] [address] [id number] [place] [address] 16 Sep, 2013 [facility] [address] [id number] [place] [address] 08 Sep, 2013 [facility] [address] [id number] [place] [address] 08 Sep, 2013 [facility] [address] [id number] [place] [address] 04 Sep, 2013 [facility] [address] [id number] [place] [address] 04 Dec, 2013 [facility] [address] [id number] [place] [address] 29 Nov, 2013 [facility] [address] [id number] [facility] [place] [address] Nov, [facility] [address] [id number] [facility] [place] [address] Nov, [facility] [address] [facility] [id number] [facility] [place] [address] Nov, [facility] [address] [id number] [place] [address] Nov, [facility] [address] [facility] [id number] [facility] [place] [address] Nov, [facility] [address] [facility] [id number] [facility] [place] [address] Nov, [facility] [address] [id number] [place] [address] Nov, [facility] [address] [id number] [place] [address] Nov, [facility] [address] [id number] [place] [address] Nov, [facility] [address] [facility] [id number] [place] [address] Nov, [facility] [address] [id number] [place] [address] Nov, [facility] [address] [id number] [place] [address] Nov, [facility] [address] [id number] [place] [address] Oct, [facility] [address] [id number] [place] [address] Oct, [facility] [address] [id number] [place] [address] Oct, [facility] [address] [facility] [id number] [place] [address] Oct, [facility] [address] [id number] [place] [address] Oct, [facility] [address] [id number] [place] [address] Oct, [facility] [address] [id number] [place] [address] Sep, [facility] [address] [id number] [place] [address] Sep, [facility] [address] [id number] [place] [address] Sep, [facility] [address] [facility] [id number] [place] [address] Sep, [facility] [address] [id number] [place] [address] Sep, [facility] [address] [id number] [place] [address] Sep, [facility] [address] [id number] [place] [address] Sep, [facility] [address] [id number] [place] [address] Sep, [facility] [address] [id number] [place] [address] Sep, [facility] [address] [id number] [place] [address] Sep, [facility] [address] [id number] [place] [address] Sep, [facility] [address] [id number] [place] [address] Sep, [facility] [address] [id number] [place] [address] August, [facility] [address] [id number] [place] [address] August, [facility] [address] [id number] [place] [address] Jul, [facility] [place] [facility] [address] [id number] [place] [address] 29 Jul, 2013 [facility] [place] [facility] [address] [facility] [id number] [facility] [place] [address] Jul, [facility] [place] [facility] [address] [facility] [id number] [place] [address] 24 Jul, 2013 [facility] [facility] [address] [facility] [id number] [facility] [place] [address] Jul, [facility] [place] [facility] [address] [facility] [id number] [place] [address] Jul, [facility] [place] [facility] [address] [facility] [id number] [place] [address] Jul, [facility] [place] [facility] [address] [id number] [place] [address] 16 Jul, 2013 [facility] [place] [facility] [address] [id number] [place] [address] Jul, [facility] [facility] [address] [id number] [facility] [place] [address] 15 Jul, 2013 [facility] [facility] [address] [facility] [id number] [facility] [place] [address] Jul, [facility] [address] [id number] [facility] [place] [address] Jun, [facility] [facility] [address] [id number] [place] [address] Jun, [facility] [facility] [address] [id number] [place] [address] Jun, [facility] [address] [facility] [id number] [facility] [place] [address] Jun, [facility] [facility] [address] [id number] [place] [address] Jun, [facility] [address] [id number] [place] [address] Jun, [facility] [address] [id number] [place] [address] Jun, [facility] [address] [id number] [place] [address] Jun, [facility] [address] [facility] [id number] [place] [address] May, [facility] [facility] [address] [id number] [place] [address] May, [facility] [facility] [address] [id number] [place] [address] May, [facility] [address] [id number] [place] [address] May, [facility] [place] [facility] [address] [id number] [place] [address] May, [facility] [place] [facility] [address] [id number] [place] [address] May, [facility] [place] [facility] [address] [id number] [place] [address] May, [facility] [place] [facility] [address] [id number] [place] [address] May, [facility] [place] [facility] [address] [id number] [place] [address] May, [facility] [place] [facility] [address] [id number] [place] [address] May, [facility] [place] [facility] [address] [id number] [place] [address] May, [facility] [place] [facility] [address] [id number] [place] [address] May, [facility] [place] [facility] [address] [id number] [place] [address] May, [facility] [place] [facility] [address] [id number] [place] [address] Apr, [facility] [place] [facility] [address] [id number] [place] [address] Apr, [facility] [place] [facility] [address] [id number] [place] [address] Apr, [facility] [place] [facility] [address] [id number] [place] [address] Apr, [facility] [place] [facility] [address] [facility] [id number] [place] [address] Apr, [facility] [place] [facility] [address] [id number] [place] [address] Apr, [facility] [place] [facility] [address] [id number] [place] [address] Apr, [facility] [place] [facility] [address] [facility] [id number] [place] [address] Apr, [facility] [place] [facility] [address] [id number] [place] [address] Apr, [facility] [place] [facility] [address] [id number] [place] [address] Apr, [facility] [place] [facility] [address] [id number] [place] [address] Apr, [facility] [place] [facility] [address] [id number] [place] [address] Apr, [facility] [place] [facility] [address] [id number] [place] [address] Apr, [facility] [place] [facility] [address] [id number] [place] [address] Apr, [facility] [place] [facility] [address] [id number] [place] [address] Apr, [facility] [place] [facility] [address] [facility] [id number] [place] [address] Mar, [facility] [place] [facility] [address] [id number] [place] [address] Mar, [facility] [place] [facility] [address] [facility] [id number] [place] [address] Mar, [facility] [place] [facility] [address] [id number] [place] [address] Mar, [facility] [place] [facility] [address] [id number] [place] [address] 20 Mar, 2013 [facility] [place] [facility] [address] [id number] [place] [address] 20 Mar, 2013 [facility] [place] [facility] [address] [id number] [place] [address] 17 Mar, 2013 [facility] [place] [facility] [address] [id number] [place] [address] 17 Mar, 2013 [facility] [place] [facility] [address] [id number] [place] [address] Mar, [facility] [place] [facility] [address] [id number] [place] [address] Mar, [facility] [place] [facility] [address] [id number] [place] [address] Mar, [facility] [place] [facility] [address] [id number] [place] [address] Mar, [facility] [place] [facility] [address] [id number] [place] [address] Feb, [facility] [place] [facility] [address] [id number] [place] [address] Feb, [facility] [place] [facility] [address] [id number] [place] [address] Feb, [facility] [place] [facility] [address] [id number] [place] [address] Feb, [facility] [place] [facility] [address] [id number] [place] [address] Feb, [facility] [place] [facility] [address] [id number] [place] [address] Feb, [facility] [place] [facility] [id number] [place] [address] Feb, [facility] [place] [facility] [address] [id number] [place] [address] 06 Feb, 2013 [facility] [place] [facility] [address] [id number] [place] [address] Jan, [facility] [place] [facility] [address] [id number] [place] [address] Jan, [facility] [place] [facility] [address] [facility] [id number] [place] [address] Jan, [facility] [place] [facility] [address] [facility] [id number] [place] [address] Jan, [facility] [place] [facility] [address] [id number] [place] [address] Jan, [facility] [place] [facility] [address] [facility] [id number] [place] [address] Jan, [facility] [place] [facility] [address] [id number] [place] [address] Jan, [facility] [place] [facility] [address] [id number] [place] [address] Dec, [facility] [place] [facility] [address] [id number] [place] [address] Dec, [facility] [place] [facility] [address] [id number] [place] [address] Dec, [facility] [place] [facility] [address] [id number] [place] [address] Dec, [facility] [place] [facility] [address] [id number] [place] [address] Dec, [facility] [place] [facility] [address] [id number] [place] [address] Nov, [facility] [place] [facility] [address] [id number] [place] [address] Nov, [facility] [place] [facility] [address] [facility] [id number] [place] [address] Nov, [facility] [place] [facility] [address] [id number] [place] [address] Nov, [facility] [place] [facility] [address] [id number] [place] [address] Nov, [facility] [place] [facility] [address] [id number] [place] [address] Nov, [facility] [place] [facility] [address] [id number] [facility] [place] [address] Nov, [facility] [place] [facility] [address] [facility] [id number] [place] [address] Oct, [facility] [place] [facility] [address] [facility] [id number] [facility] [place] [address] Oct, [facility] [place] [facility] [address] [facility] [id number] [place] [address] Oct, [facility] [place] [facility] [address] [facility] [id number] [place] [address] Oct, [facility] [place] [facility] [address] [facility] [id number] [place] [address] Oct, [facility] [place] [facility] [address] [id number] [facility] [place] [address] Oct, [facility] [place] [facility] [address] [id number] [facility] [place] [address] Oct, [facility] [place] [facility] [address] [facility] [id number] [facility] [place] [address] Oct, [facility] [place] [facility] [address] [id number] [facility] [place] [address] Sep, [facility] [place] [facility] [address] [id number] [place] [address] Sep, [facility] [place] [facility] [address] [id number] [place] [address] Sep, [facility] [place] [facility] [address] [facility] [id number] [facility] [place] [address] Sep, [facility] [place] [facility] [address] [id number] [place] [address] Sep, [facility] [place] [facility] [address] [facility] [id number] [place] [address] Sep, [facility] [place] [facility] [address] [id number] [place] [address] August, [facility] [place] [facility] [address] [id number] [place] [address] August, [facility] [place] [facility] [address] [id number] [place] [address] August, [facility] [place] [facility] [address] [id number] [place] [address] August, [facility] [place] [facility] [address] [id number] [place] [address] August, [facility] [place] [facility] [address] [id number] [place] [address] Jul, [facility] [place] [facility] [address] [id number] [place] [address] Jul, [facility] [place] [facility] [address] [id number] [place] [address] Jul, [facility] [place] [facility] [address] [id number] [place] [address] Jul, [facility] [place] [facility] [address] [id number] [place] [address] Jul, [facility] [place] [facility] [address] [id number] [place] [address] Jul, [facility] [place] [facility] [address] [id number] [place] [address] 14 Jun, 2012 [facility] [place] [facility] [address] [id number] [place] [address] Jun, [facility] [place] [facility] [address] [id number] [place] [address] Jun, [facility] [place] [facility] [address] [id number] [place] [address] Jun, [facility] [place] [facility] [address] [id number] [place] [address] 05 Jun, 2012 [facility] [place] [facility] [address] [id number] [place] [address] 19 May, 2012 [facility] [place] [facility] [address] [id number] [place] [address] 13 May, 2012 [facility] [place] [facility] [address] [id number] [place] [address] May, [facility] [place] [facility] [address] [id number] [place] [address] Apr, [facility] [place] [facility] [address] [id number] [place] [address] Apr, [facility] [place] [facility] [address] [id number] [place] [address] Mar, [facility] [place] [facility] [address] [id number] [place] [address] Mar, [facility] [place] [facility] [address] [id number] [place] [address] Mar, [facility] [place] [facility] [address] [id number] [place] [address] Mar, [facility] [place] [facility] [address] [id number] [place] [address] Mar, [facility] [place] [facility] [address] [id number] [place] [address] Mar, [facility] [place] [facility] [address] [id number] [place] [address] Feb, [facility] [place] [facility] [address] [id number] [place] [address] Feb, [facility] [place] [facility] [address] [id number] [place] [address] Feb, [facility] [place] [facility] [address] [id number] [place] [address] Jan, [facility] [place] [facility] [address] [id number] [place] [address] Jan, [facility] [place] [facility] [address] [id number] [place] [address] Jan, [facility] [place] [facility] [address] [id number] [place] [address] Jan, [facility] [place] [facility] [address] [id number] [place] [address] 24 Jan, 2012 [facility] [place] [facility] [address] [facility] [id number] [place] [address] Jan, [facility] [place] [facility] [address] [id number] [place] [address] 17 Jan, 2012 [facility] [place] [facility] [address] [id number] [place] [address] 16 Jan, 2012 [facility] [place] [facility] [address] [id number] [place] [address] 16 Jan, 2012 [facility] [place] [facility] [address] [id number] [place] [address] Dec, [facility] [place] [facility] [address] [id number] [place] [address] Dec, [facility] [place] [facility] [address] [id number] [place] [address] Dec, [facility] [place] [facility] [address] [id number] [place] [address] Nov, [facility] [place] [facility] [address] [id number] [place] [address] Nov, [facility] [place] [facility] [address] [id number] [place] [address] Nov, [facility] [place] [facility] [address] [id number] [place] [address] Oct, [facility] [place] [facility] [address] [id number] [place] [address] Oct, [facility] [place] [facility] [address] [id number] [place] [address] Sep, [facility] [place] [facility] [address] [id number] [place] [address] Sep, [facility] [place] [facility] [address] [id number] [place] [address] 18 Sep, 2011 [facility] [place] [facility] [address] [id number] [place] [address] Sep, [facility] [place] [facility] [address] [id number] [place] [address] 04 Sep, 2011 [facility] [place] [facility] [address] [id number] [place] [address] August, [facility] [place] [facility] [address] [id number] [place] [address] August, [facility] [place] [facility] [address] [id number] [place] [address] August, [facility] [place] [facility] [address] [id number] [place] [address] August, [facility] [place] [facility] [address] [id number] [place] [address] August, [facility] [place] [facility] [address] [id number] [place] [address] August, [facility] [place] [facility] [address] [id number] [place] [address] August, [facility] [place] [facility] [address] [id number] [place] [address] August, [facility] [place] [facility] [address] [id number] [place] [address] August, [facility] [place] [facility] [address] [id number] [place] [address] Jul, [facility] [place] [facility] [address] [id number] [place] [address] Jul, [facility] [place] [facility] [address] [id number] [place] [address] Jul, [facility] [place] [facility] [address] [id number] [place] [address] 04 Jul, 2011 [facility] [place] [facility] [address] [id number] [place] [address] 27 Jun, 2011 [facility] [place] [facility] [address] [id number] [place] [address] Jun, [facility] [place] [facility] [address] [id number] [place] [address] 13 Jun, 2011 [facility] [address] [id number] [place] [address] 27 May, 2011 [facility] [place] [facility] [address] [id number] [place] [address] 24 May, 2011 [facility] [place] [facility] [address] [id number] [place] [address] 20 May, 2011 [facility] [place] [facility] [address] [id number] [place] [address] 16 May, 2011 [facility] [place] [facility] [address] [id number] [place] [address] 15 May, 2011 [facility] [place] [facility] [address] [id number] [place] [address] 14 May, 2011 [facility] [place] [facility] [address] [id number] [place] [address] 10 May, 2011 [facility] [place] [facility] [address] [id number] [place] [address] 09 May, 2011 [facility] [place] [facility] [address] [id number] [place] [address] 02 May, 2011 [facility] [place] [facility] [address] [id number] [place] [address] 30 Apr, 2011 [facility] [place] [facility] [address] [id number] [place] [address] 26 Apr, 2011 [facility] [place] [facility] [address] [id number] [place] [address] Apr, [facility] [place] [facility] [address] [id number] [place] [address] 17 Apr, 2011 [facility] [place] [facility] [address] [id number] [place] [address] 16 Apr, 2011 [facility] [place] [facility] [address] [id number] [place] [address] 13 Apr, 2011 [facility] [place] [facility] [address] [id number] [place] [address] 09 Apr, 2011 [facility] [place] [facility] [address] [id number] [place] [address] Apr, [facility] [id number] [place] [address] Apr, [facility] [id number] [place] [address] Apr, [facility] [id number] [place] [address] Apr, [facility] [address] [address] Mar, [facility] [address] [address] Mar, [facility] [address] [address] Mar, [facility] [address] [address] Mar, [facility] [address] [address] Feb, [facility] [id number] [place] [address] Feb, [facility] [address] [address] Jan, [facility] [id number] [place] [address] Nov, IMMUNIZATIONS No Known Immunizations SOCIAL HISTORY [...] laser treatment for glaucoma Hospitalization History ED [place]- Right side and back pain related to fall, hurts to breathe (ED at 7 pm) 06/07/2017 Hospitalization History [facility] [place] [facility] [place], [place]- Anxiety ( went to ED at 1200) 06/07/2017 Hospitalization History COPD exacerbation - [facility] 2017 Hospitalization History Blood clot, port placement - [facility] 09/2017
--- OUTSIDE RECORDS SUMMARY | 2019-09-01 14:27 | XMS REPORT ---
Author Author RADHA Sophianaren OLIVA [facility] Address [address] [place] [address] Care Team Providers Care Blood [facility] Laboratory Professional Name Role Phone RADHAGASPER MCPHERSONY Unavailable PROBLEMS Type Condition ICD9-CM Code LTO66-GO Code Onset Dates Condition S tatus SNOMED Code Problem Proteinuria R80.9 Active 56420503 Problem Essential hypertension I10 Active 69005656 Problem Anxiety F41.9 Active 84814697 Problem Type 2 diabetes mellitus without complication E11. 9 Active 86826957 Problem Hyperlipidemia, unspecified hyperlipidemia E78.5 Active 55841063 Problem Major depressive disorder, recurrent episode, un specified severity F33.9 Active 28952354 Problem Sciatica, unspecified laterality M54.30 Active 31242712 Problem Acute cystitis with hematuria N30.01 Active 31876719 Problem Chronic pain syndrome G89.4 Active 355986326 Problem Exacerbation of systemic lupus M32.9 Active 15112782 Problem Generalized abdominal pain R10.84 Act sree 507195101 Problem Carpal tunnel syndrome, right upper limb G56.01 Active 74400565 Problem History of small bowel obstruction Z87.19 Active 749874427 Problem History of pulmonary embolism Z86.711 Active 574128969 Problem Presence of IVC filter Z95.828 Active 696799409 Problem Port catheter in place Z95.828 Active 341419739 Problem Gastroesophageal reflux disease, esophagitis pre sence not specified K21.9 Active 807252265 Problem Chronic pancreatitis, unspecified pancreatitis type K86.1 Active 862591415 Problem Hypothyroidism, unspecified type E03.9 Active 23804096 Problem Vitamin D deficiency E55.9 Active 51658759 Problem Nausea R11.0 Active 190369828 Problem Pneumonia due to infectious organism, unspecified laterality, unspecified part of lung J18.9 Active 312 814187 Problem Gastroesophageal reflux disease without esophagitis K21.9 Active 320486605 Problem Violation of controlled substance agreement Z91.14 Active 885664153 Problem Obstructive sleep apnea G47.33 Active 07195675 Problem Hypertension, benign I10 Active 85865856 Problem Venous insufficiency I87.2 Active 80648687 Problem Chronic obstructive pulmonary disease, unspecified COPD ty pe J44.9 Active 09294595 Problem Tobacco abuse counseling Z71.6 Activ e 30297388 Problem 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 A ctive 292772241 Problem Opiate dependence, continuous F11.20 Active 772890038 Problem Cannabis abuse with physiological dependence F12.1 0 Active 47590050 ALLERGIES No Information ENCOUNTERS Encounter Location Date Diagnosis [facility] [address] [address] May, [place] [address] [address] Apr, Tobacco abuse Z72.0 ; Hypertension, stefan gn I10 and Tobacco abuse counseling Z71.6 [place] [address] [address] Sep, [place] [address] [address] Sep, [facility] [address] [address] Sep, Essential hypertension I10 [place] [address] [address] Sep, [facility] [address] [address] Sep, [place] [address] [address] Sep, Neck mass R22.1 [facility] [address] [address] August, Neck mass R22.1 [facility] [address] [facility]NOTE 3] [id number] [address] [place] [address] Feb, Left foot pain M79.672 [facility] [address] [address] Jun, Chronic pain syndrome G89.4 [facility] [address] [id number] [place] [id number] May, [facility] [address] [place] [id number] [place] [address] May, [facility] [address] [id number] [place] [address] May, Chronic pain syndrome G89.4 [facility] [address] [place] [id number] [place] [address] May, [facility] [address] [facility]NOTE 3] [id number] [address] [place] [address] 10 May, 2017 Encounter for immunization Z 23 and Laceration of left index finger without foreign body without damage to nail, initial encounter S61.211A [place] [address] [address] 09 May, 2017 Chronic pain syndrome G89.4 [facility] [address] [place] [id number] [place] [address] May, [place] [address] [address] Apr, Cannabis abuse with physiological depend ence F12.10 ; Violation of controlled substance agreement Z91.14 and Opiate dependence, continuous F11.20 [place] [address] [place] [id number] [place] [address] Apr, Type 2 diabetes mellitus without complic ation E11.9 [facility] [address] [place] [id number] [place] [address] Apr, [place] [address] [address] Apr, Chronic pain syndrome G89.4 [facility] [address] [place] [address] [place] [address] Apr, Viral syndrome B34.9 [facility] [address] [address] Apr, [facility] [address] [address] Mar, Chronic pain syndrome G89.4 [facility] [address] [address] Mar, [facility] [address] [address] Mar, [facility] [address] [address] Feb, Essential hypertension I10 ; Chronic nataly n syndrome G89.4 ; Hyperlipidemia, unspecified hyperlipidemia E78.5 ; 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 and Encounter for immunization Z23 [place] [address] [address] Feb, Chronic pain syndrome G89.4 [facility] [address] [address] Jan, Chronic pain syndrome G89.4 [facility] [address] [address] Jan, [facility] [address] [address] Jan, Bronchitis J40 ; Port catheter in place Z95.828 and Chronic pain syndrome G89.4 [facility] [address] [id number] [place] [id number] Jan, [facility] [address] [address] 22 Dec, 2016 Chronic pain syndrome G89.4 [facility] [address] [address] 18 Dec, 2016 Chronic pain syndrome G89.4 [facility] [address] [address] 08 Dec, 2016 [facility] [address] [address] Nov, [facility] [address] [address] Nov, Chronic pain syndrome G89.4 [facility] [address] [address] Oct, Chronic pain syndrome G89.4 [facility] [address] [address] Oct, [facility] [address] [address] Sep, Chronic pain syndrome G89.4 [facility] [address] [address] Sep, Exacerbation of systemic lupus M32.9 [facility] [address] [address] Sep, [facility] [address] [address] Sep, [facility] [address] [address] Sep, Nausea R11.0 [facility] [address] [address] August, Chronic pain syndrome G89.4 [facility] [address] [address] August, [facility] [address] [address] August, Chronic pain syndrome G89.4 [facility] [address] [address] Jul, Pneumonia due to infectious organism, un specified laterality, unspecified part of lung J18.9 and Tobacco abuse counseling Z71.6 [facility] [address] [address] Jul, Chronic pain syndrome G89.4 [facility] [address] [address] Jun, Essential hypertension I10 [facility] [address] [address] Jun, Pneumonia due to infectious organism, un specified laterality, unspecified part of lung J18.9 [place] [address] [address] Jun, Chronic pain syndrome G89.4 [place] [address] [address] May, Essential hypertension I10 ; Type 2 [...] and Gastroesophageal reflux disease without esophagitis K21.9 [place] [address] [address] Apr, [address] [address] Apr, Pneumonia due to infectious organism, un specified laterality, unspecified part of lung J18.9 and Nausea R11.[address] [address] Apr, Essential hypertension I10 ; Chronic nataly [...] J18.9 and Nausea R11.0 [facility] [address] [facility]NOTE 3] [id number] [address] [place] [address] Mar, [address] [address] Mar, [place] [address] [address] Mar, [place] [address] [address] Mar, Anxiety F41.9 and Major depressive disor rita, recurrent episode, unspecified severity F33.9 [place] [address] [address] Mar, [place] [address] [address] Mar, [place] [address] [address] Mar, Generalized abdominal pain R10.84 ; Acut e cystitis with hematuria N30.01 and Essential hypertension I10 [facility] [address] [place] [address] Mar, Sore throat J02.9 and Exacer bation of systemic lupus M32.9 [place] [address] [address] Feb, Type 2 diabetes mellitus without complic [...] reflux disease, esophagitis presence not specified K21.9 [place] [address] [address] Feb, [place] [address] [address] Jan, [facility] [place] [id number] [place] [address] Jan, Right arm pain M79.[address] of right wrist, initial encounter S66.911A [place] [address] [address] Jan, [facility] [address] [facility]NOTE 3] [id number] [address] [place] [address] 30 Dec, 2015 Generalized abdominal pain R 10.84 [place] [address] [address] Dec, Adenopathy R59.1 [place] [address] [address] 19 Dec, 2015 Bronchitis J40 [place] [address] [address] 14 Dec, 2015 [place] [address] [address] Dec, Essential hypertension I10 [place] [address] [address] Nov, [place] [address] [address] Nov, [place] [address] [address] Nov, Essential hypertension I10 ; Hyperlipide martha, [...] Type 2 diabetes mellitus without complication E11.9 [place] [address] [address] Nov, [facility] [address] [address] Oct, Type 2 diabetes mellitus without complic ation E11.9 ; Essential hypertension I10 ; Other viral warts B07.8 ; [place] or callus L84 and Hyperlipidemia, unspecified hyperlipidemia E78.5 [facility] [address] [address] Sep, [facility] [address] [address] Sep, [facility] [address] [address] Jun, [facility] [address] [address] Jun, [facility] [address] [address] May, [facility] [address] [address] Apr, [facility] [address] [address] Feb, [facility] [address] [address] Feb, COPD exacerbation J44.1 and Acute upper respiratory infection J06.9 [facility] [address] [address] Feb, [facility] [address] [address] Feb, [facility] [address] [address] Feb, [facility] [address] [address] Feb, [facility] [address] [address] Jan, Left hip pain M25.552 [facility] [address] [id number] [place] [address] Jan, Essential hypertension I10 ; Chronic nataly n syndrome G89.4 ; Type 2 diabetes mellitus without complication E11.9 and Hyperlipidemia, unspecified hyperlipidemia E78.5 [facility] [address] [id number] [place] [address] 28 Jul, 2014 [facility] [id number] [place] [address] 14 Jul, 2014 [facility] [address] [id number] [place] [address] Jul, [facility] [id number] [place] [address] 25 Jun, 2014 [facility] [id number] [place] [address] Jun, [facility] [id number] [place] [address] 24 Jun, 2014 [facility] [address] [place] [id number] [place] [address] Jun, [facility] [id number] [place] [address] Jun, [facility] [address] [place] [id number] [place] [address] Jun, [facility] [address] [id number] [place] [address] Jun, [facility] [address] [place] [address] [id number] [place] [address] Jun, [facility] [id number] [place] [address] 18 Jun, 2014 [facility] [id number] [place] [address] 18 Jun, 2014 [facility] [address] [place] [address] [id number] [place] [address] Jun, [facility] [address] [place] [address] [id number] [place] [address] Jun, [facility] [place] [facility] [address] [facility]NOTE 3] [id number] [place] [address] Apr, [facility] [place] [facility] [address] [id number] [place] [address] Apr, [facility] [place] [facility] [address] [id number] [place] [address] Apr, [facility] [place] [facility] [address] [id number] [place] [address] Apr, [facility] [place] [facility] [address] [id number] [place] [address] Apr, [facility] [place] [facility] [address] [id number] [place] [address] Apr, [facility] [place] [facility] [address] [id number] [place] [address] Apr, [facility] [place] [facility] [address] [id number] [place] [address] Apr, [facility] [place] [facility] [address] [id number] [place] [address] Mar, [facility] [place] [facility] [address] [id number] [place] [address] Mar, [facility] [place] [facility] [address] [id number] [place] [address] Mar, [facility] [place] [facility] [address] [id number] [place] [address] Mar, [facility] [place] [facility] [address] [id number] [place] [address] Mar, [facility] [place] [facility] [address] [id number] [place] [address] 18 Mar, 2014 [facility] [place] [facility] [address] [id number] [place] [address] 15 Mar, 2014 [facility] [place] [facility] [address] [id number] [place] [address] Mar, [facility] [place] [facility] [address] [id number] [place] [address] Mar, [facility] [place] [facility] [address] [id number] [place] [address] Mar, [facility] [place] [facility] [address] [id number] [place] [address] Mar, [facility] [place] [facility] [address] [id number] [place] [address] Mar, [facility] [place] [facility] [address] [id number] [place] [address] Mar, [facility] [place] [facility] [address] [id number] [place] [address] Feb, [facility] [place] [facility] [address] [id number] [place] [address] Feb, [facility] [place] [facility] [id number] [place] [address] Feb, [facility] [place] [facility] [address] [id number] [place] [address] Feb, [facility] [place] [facility] [address] [id number] [place] [address] Feb, [facility] [place] [facility] [address] [id number] [place] [address] Feb, [facility] [place] [facility] [address] [id number] [place] [address] Feb, [facility] [place] [facility] [address] [id number] [place] [address] Feb, [facility] [place] [facility] [address] [id number] [place] [address] Jan, [facility] [place] [facility] [id number] [place] [address] Jan, [facility] [place] [facility] [address] [id number] [place] [address] Jan, [facility] [place] [facility] [id number] [place] [address] Jan, [facility] [place] [facility] [address] [id number] [place] [address] Jan, [facility] [place] [facility] [address] [id number] [place] [address] Jan, [facility] [place] [facility] [address] [id number] [place] [address] Jan, 2013 [facility] [place] [facility] [address] [id number] [place] [address] Jan, [facility] [place] [facility] [address] [facility]] [id number] [place] [address] Jan, 2013 [facility] [place] [facility] [address] [id number] [place] [address] 30 Dec, 2013 [facility] [place] [facility] [address] [id number] [place] [address] 30 Dec, 2013 [facility] [place] [facility] [address] [id number] [place] [address] 26 Dec, 2013 [facility] [place] [facility] [address] [id number] [place] [address] 26 Sep, 2013 [facility] [place] [facility] [address] [id number] [place] [address] 16 Sep, 2013 [facility] [place] [facility] [address] [id number] [place] [address] 16 Sep, 2013 [facility] [place] [facility] [address] [id number] [place] [address] 08 Sep, 2013 [facility] [place] [facility] [address] [id number] [place] [address] 08 Sep, 2013 [facility] [place] [facility] [address] [id number] [place] [address] 04 Sep, 2013 [facility] [place] [facility] [address] [id number] [place] [address] 04 Dec, 2013 [facility] [place] [facility] [address] [id number] [place] [address] 29 Nov, 2013 [facility] [place] [facility] [address] [id number] [place] [address] Nov, [facility] [place] [facility] [address] [id number] [place] [address] Nov, [facility] [place] [facility] [address] [facility]] [id number] [place] [address] Nov, [facility] [place] [facility] [address] [id number] [place] [address] Nov, [facility] [place] [facility] [address] [facility] 3] [id number] [place] [address] Nov, [facility] [place] [facility] [address] [facility] 3] [id number] [place] [address] Nov, [facility] [place] [facility] [address] [id number] [place] [address] Nov, [facility] [place] [facility] [address] [id number] [place] [address] Nov, [facility] [place] [facility] [address] [id number] [place] [address] Nov, [facility] [place] [facility] [address] [facility] 3] [id number] [place] [address] Nov, [facility] [place] [facility] [address] [id number] [place] [address] Nov, [facility] [place] [facility] [address] [id number] [place] [address] Nov, [facility] [place] [facility] [address] [id number] [place] [address] Oct, [facility] [place] [facility] [address] [facility] 3] [id number] [place] [address] Oct, [facility] [place] [facility] [address] [id number] [place] [address] Oct, [facility] [place] [facility] [address] [facility] 3] [id number] [place] [address] Oct, [facility] [place] [facility] [address] [id number] [place] [address] Oct, [facility] [place] [facility] [address] [facility] 3] [id number] [place] [address] Oct, [facility] [place] [facility] [address] [facility] 3] [id number] [place] [address] Sep, [facility] [place] [facility] [address] [facility] 3] [id number] [place] [address] Sep, [facility] [place] [facility] [address] [id number] [place] [address] Sep, [facility] [place] [facility] [address] [facility] 3] [id number] [place] [address] Sep, [facility] [place] [facility] [address] [id number] [place] [address] Sep, [facility] [place] [facility] [address] [id number] [place] [address] Sep, [facility] [place] [facility] [address] [id number] [place] [address] Sep, [facility] [place] [facility] [address] [id number] [place] [address] Sep, [facility] [place] [facility] [address] [id number] [place] [address] Sep, [facility] [place] [facility] [address] [id number] [place] [address] Sep, [facility] [place] [facility] [address] [id number] [place] [address] Sep, [facility] [place] [facility] [address] [id number] [place] [address] Sep, [facility] [address] [facility] [id number] [place] [address] August, [facility] [address] [facility] [id number] [place] [address] August, [facility] [address] [facility] [id number] [place] [address] Jul, [facility] [address] [facility] [id number] [place] [address] Jul, [facility] [address] [facility]] [id number] [place] [address] Jul, [facility] [address] [facility]NOTE 3] [id number] [place] [address] 24 Jul, 2013 [facility] [address] [facility] [id number] [place] [address] Jul, [facility] [address] [facility] [id number] [place] [address] Jul, [facility] [address] [facility][NOTE 3] [id number] [place] [address] Jul, [facility] [address] [facility] [id number] [place] [address] 16 Jul, 2013 [facility] [address] [facility] [id number] [place] [address] Jul, [facility] [address] [facility] [id number] [place] [address] Jul, [facility] [address] [facility] [id number] [place] [address] Jul, [facility] [address] [facility] [id number] [place] [address] Jun, [facility] [address] [facility] [id number] [place] [address] Jun, [facility] [address] [facility] [id number] [place] [address] Jun, [facility] [address] [facility] [id number] [place] [address] Jun, [facility] [address] [facility] [id number] [place] [address] Jun, [facility] [address] [facility] [id number] [place] [address] Jun, [facility] [address] [facility] [id number] [place] [address] Jun, [facility] [address] [facility] [id number] [place] [address] Jun, [facility] [address] [facility]NOTE 3] [id number] [place] [address] May, [facility] [address] [facility] [id number] [place] [address] May, [facility] [address] [facility] [id number] [place] [address] May, [facility] [address] [facility] [id number] [place] [address] May, [facility] [address] [facility] [id number] [place] [address] May, [facility] [address] [facility] [id number] [place] [address] May, [facility] [facility] [address] [facility] [id number] [place] [address] May, [facility] [address] [facility] [id number] [place] [address] May, [facility] [address] [facility] [id number] [place] [address] May, [facility] [address] [facility] [id number] [place] [address] May, [facility] [address] [facility] [id number] [place] [address] May, [facility] [address] [facility] [id number] [place] [address] May, [facility] [address] [facility] [id number] [place] [address] May, [facility] [address] [facility] [id number] [place] [address] Apr, [facility] [address] [facility] [id number] [place] [address] Apr, [facility] [address] [facility] [id number] [place] [address] Apr, [facility] [address] [facility]NOTE 3] [id number] [place] [address] Apr, [facility] [address] [facility][NOTE 3] [id number] [place] [address] Apr, [facility] [address] [facility] [id number] [place] [address] Apr, [facility] [address] [facility] [id number] [place] [address] Apr, [facility] [address] [facility][NOTE 3] [id number] [place] [address] Apr, [facility] [address] [facility] [id number] [place] [address] Apr, [facility] [address] [facility] [id number] [place] [address] Apr, [facility] [address] [facility] [id number] [place] [address] Apr, [facility] [address] [facility] [id number] [place] [address] Apr, [facility] [address] [facility] [id number] [place] [address] Apr, [facility] [address] [facility] [id number] [place] [address] Apr, [facility] [address] [facility] [id number] [place] [address] Apr, [facility] [address] [facility][NOTE 3] [id number] [place] [address] Mar, [facility] [address] [facility][NOTE 3] [id number] [place] [address] Mar, [facility] [address] [facility] [id number] [place] [address] Mar, [facility] [address] [facility] [id number] [place] [address] Mar, [facility] [address] [facility] [id number] [place] [address] 20 Mar, 2013 [facility] [address] [facility] [id number] [place] [address] 20 Mar, 2013 [facility] [address] [facility] [id number] [place] [address] 17 Mar, 2013 [facility] [address] [facility] [id number] [place] [address] 17 Mar, 2013 [facility] [address] [facility] [id number] [place] [address] Mar, [facility] [address] [facility] [id number] [place] [address] Mar, [facility] [address] [facility] [id number] [place] [address] Mar, [facility] [address] [facility] [id number] [place] [address] Mar, [facility] [address] [facility] [id number] [place] [address] Feb, [facility] [address] [facility] [id number] [place] [address] Feb, [facility] [id number] [place] [address] Feb, [facility] [address] [facility] [id number] [place] [address] Feb, [facility] [address] [facility] [id number] [place] [address] Feb, [facility] [address] [facility] [id number] [place] [address] Feb, [facility] [id number] [place] [address] Feb, [facility] [address] [facility] [id number] [place] [address] Feb, [facility] [address] [facility] [id number] [place] [address] Jan, [facility] [address] [id number] [place] [address] Jan, [facility] [address] [facility] [id number] [place] [address] Jan, [facility] [address] [facility] [id number] [place] [address] Jan, [facility] [address] [facility] [id number] [place] [address] Jan, [facility] [address] [facility][NOTE 3] [id number] [place] [address] Jan, [facility] [address] [facility] [id number] [place] [address] Jan, [facility] [address] [facility] [id number] [place] [address] Dec, [facility] [address] [facility] [id number] [place] [address] Dec, [facility] [address] [facility] [id number] [place] [address] Dec, [facility] [address] [facility] [id number] [place] [address] Dec, [facility] [address] [facility] [id number] [place] [address] Dec, [facility] [address] [facility] [id number] [place] [address] Nov, [facility] [address] [facility] [id number] [place] [address] Nov, [facility] [address] [facility][NOTE 3] [id number] [place] [address] Nov, [facility] [address] [facility] [id number] [place] [address] Nov, [facility] [address] [facility] [id number] [place] [address] Nov, [facility] [address] [facility] [id number] [place] [address] Nov, [facility] [address] [facility][NOTE 3] [id number] [place] [address] Nov, [facility] [address] [facility][NOTE 3] [id number] [place] [address] Oct, [facility] [address] [facility][NOTE 3] [id number] [place] [address] Oct, [facility] [address] [facility][NOTE 3] [id number] [place] [address] Oct, [facility] [address] [facility][NOTE 3] [id number] [place] [address] Oct, [facility] [address] [facility] [id number] [place] [address] Oct, [facility] [address] [facility] [id number] [place] [address] Oct, [facility] [address] [facility] [id number] [place] [address] Oct, [facility] [address] [facility][NOTE 3] [id number] [place] [address] Oct, [facility] [address] [facility] [id number] [place] [address] Sep, [facility] [address] [facility] [id number] [place] [address] Sep, [facility] [address] [facility] [id number] [place] [address] Sep, [facility] [address] [facility][NOTE 3] [id number] [place] [address] Sep, [facility] [address] [facility][NOTE 3] [id number] [place] [address] Sep, [facility] [address] [facility][NOTE 3] [id number] [place] [address] Sep, [facility] [address] [facility] [id number] [place] [address] August, [facility] [address] [facility] [id number] [place] [address] August, [facility] [address] [facility] [id number] [place] [address] August, [facility] [address] [facility] [id number] [place] [address] August, [facility] [address] [facility] [id number] [place] [address] August, [facility] [address] [facility] [id number] [place] [address] Jul, [facility] [address] [facility] [id number] [place] [address] Jul, [facility] [address] [facility] [id number] [place] [address] Jul, [facility] [address] [facility] [id number] [place] [address] Jul, [facility] [address] [facility] [id number] [place] [address] Jul, [facility] [address] [facility] [id number] [place] [address] Jul, [facility] [address] [facility] [id number] [place] [address] 14 Jun, 2012 [facility] [address] [facility] [id number] [place] [address] Jun, [facility] [address] [facility] [id number] [place] [address] Jun, [facility] [address] [facility] [id number] [place] [address] Jun, [facility] [address] [facility] [id number] [place] [address] 05 Jun, 2012 [facility] [address] [facility] [id number] [place] [address] May, [facility] [address] [facility] [id number] [place] [address] 13 May, 2012 [facility] [address] [facility] [id number] [place] [address] May, [facility] [address] [facility] [id number] [place] [address] Apr, [facility] [address] [facility] [id number] [place] [address] Apr, [facility] [address] [facility] [id number] [place] [address] Mar, [facility] [address] [facility] [id number] [place] [address] Mar, [facility] [address] [facility] [id number] [place] [address] Mar, [facility] [address] [facility] [id number] [place] [address] Mar, [facility] [address] [facility] [id number] [place] [address] Mar, [facility] [address] [facility] [id number] [place] [address] Mar, [facility] [address] [facility] [id number] [place] [address] Feb, [facility] [address] [facility] [id number] [place] [address] Feb, [facility] [address] [facility] [id number] [place] [address] Feb, [facility] [address] [facility] [id number] [place] [address] Jan, [facility] [address] [facility] [id number] [place] [address] Jan, [facility] [address] [facility] [id number] [place] [address] Jan, [facility] [address] [facility] [id number] [place] [address] 24 Jan, 2012 [facility] [address] [facility] [id number] [place] [address] 24 Jan, 2012 [facility] [address] [facility][NOTE 3] [id number] [place] [address] Jan, [facility] [address] [facility] [id number] [place] [address] 17 Jan, 2012 [facility] [address] [facility] [id number] [place] [address] 16 Jan, 2012 [facility] [address] [facility] [id number] [place] [address] Jan, [facility] [address] [facility] [id number] [place] [address] Dec, [facility] [address] [facility] [id number] [place] [address] Dec, [facility] [address] [facility] [id number] [place] [address] Dec, [facility] [address] [facility] [id number] [place] [address] Nov, [facility] [address] [facility] [id number] [place] [address] Nov, [facility] [address] [facility] [id number] [place] [address] Nov, [facility] [address] [facility] [id number] [place] [address] Oct, [facility] [address] [facility] [id number] [place] [address] Oct, [facility] [address] [facility] [id number] [place] [address] Sep, [facility] [address] [facility] [id number] [place] [address] Sep, [facility] [address] [facility] [id number] [place] [address] 18 Sep, 2011 [facility] [address] [facility] [id number] [place] [address] Sep, [facility] [address] [facility] [id number] [place] [address] Sep, [facility] [address] [id number] [place] [address] August, [facility] [address] [facility] [id number] [place] [address] August, [facility] [address] [facility] [id number] [place] [address] August, [facility] [address] [facility] [id number] [place] [address] August, [facility] [address] [facility] [id number] [place] [address] August, [facility] [address] [facility] [id number] [place] [address] August, [facility] [address] [facility] [id number] [place] [address] August, [facility] [address] [facility] [id number] [place] [address] August, [facility] [address] [facility] [id number] [place] [address] August, [facility] [address] [facility] [id number] [place] [address] Jul, [facility] [address] [facility] [id number] [place] [address] Jul, [facility] [address] [facility] [id number] [place] [address] Jul, [facility] [address] [facility] [id number] [place] [address] 04 Jul, 2011 [facility] [address] [facility] [id number] [place] [address] 27 Jun, 2011 [facility] [address] [facility] [id number] [place] [address] Jun, [facility] [address] [facility] [id number] [place] [address] Jun, [facility] [address] [id number] [place] [address] 27 May, 2011 [facility] [address] [id number] [place] [address] 24 May, 2011 [facility] [address] [facility][NOTE 3] [id number] [place] [address] 20 May, 2011 [facility] [address] [id number] [place] [address] 16 May, 2011 [facility] [address] [facility][NOTE 3] [id number] [place] [address] 15 May, 2011 [facility] [address] [facility] [id number] [place] [address] 14 May, 2011 [facility] [address] [id number] [place] [address] 10 May, 2011 [facility] [address] [facility] [id number] [place] [address] 09 May, 2011 [facility] [address] [facility] [id number] [place] [address] 02 May, 2011 [facility] [address] [id number] [place] [address] 30 Apr, 2011 [facility] [address] [id number] [place] [address] Apr, [facility] [address] [facility] [id number] [place] [address] Apr, [facility] [address] [facility] [id number] [place] [address] 17 Apr, 2011 [facility] [address] [id number] [place] [address] 16 Apr, 2011 [facility] [address] [facility] [id number] [place] [address] 13 Apr, 2011 [facility] [address] [id number] [place] [address] 09 Apr, 2011 [facility] [id number] [place] [address] Apr, [facility] [id number] [place] [address] Apr, [facility] [id number] [place] [address] Apr, [facility] [address] [address] Apr, [facility] [address] [address] Mar, [facility] [address] [address] Mar, [facility] [address] [address] Mar, [facility] [address] [address] Mar, [facility] [address] [address] Feb, [facility] [id number] [place] [address] Feb, [facility] [address] [address] Jan, [facility] [address] [address] Nov, IMMUNIZATIONS No Known Immunizations SOCIAL HISTORY [...] laser treatment for glaucoma Hospitalization History [facility]- Right side and back pain related to fall, hurts to breathe (ED at 7 pm) 06/07/2017 Hospitalization History [facility] ED [place]- Anxiety ( went to ED at 1200) 06/07/2017 Hospitalization History COPD exacerbation - Gerald Pizano 2017 Hospitalization History Blood clot, port placement - Gerald Pizano 09/2017
--- OUTSIDE RECORDS SUMMARY | 2019-09-01 14:27 | XMS REPORT ---
Author Author RADHA Sophianaren OLIVA [facility] Address [address] [place] [address] Care Team Providers Care Water Inspector Name Role Phone RADHAGASPER MCPHERSONY Unavailable PROBLEMS Type Condition ICD9-CM Code HRS41-BW Code Onset Dates Condition S tatus SNOMED Code Problem Proteinuria R80.9 Active 84111116 Problem Essential hypertension I10 Active 59106975 Problem Anxiety F41.9 Active 88137421 Problem Type 2 diabetes mellitus without complication E11. 9 Active 17143732 Problem Hyperlipidemia, unspecified hyperlipidemia E78.5 Active 63755849 Problem Major depressive disorder, recurrent episode, un specified severity F33.9 Active 63153986 Problem Sciatica, unspecified laterality M54.30 Active 58733136 Problem Acute cystitis with hematuria N30.01 Active 59298373 Problem Chronic pain syndrome G89.4 Active 022018968 Problem Exacerbation of systemic lupus M32.9 Active 14383601 Problem Generalized abdominal pain R10.84 Act sree 809522661 Problem Carpal tunnel syndrome, right upper limb G56.01 Active 72035747 Problem History of small bowel obstruction Z87.19 Active 236116611 Problem History of pulmonary embolism Z86.711 Active 274185133 Problem Presence of IVC filter Z95.828 Active 154507589 Problem Port catheter in place Z95.828 Active 574822329 Problem Gastroesophageal reflux disease, esophagitis pre sence not specified K21.9 Active 961869223 Problem Chronic pancreatitis, unspecified pancreatitis type K86.1 Active 293859550 Problem Hypothyroidism, unspecified type E03.9 Active 29582372 Problem Vitamin D deficiency E55.9 Active 33255043 Problem Nausea R11.0 Active 437748256 Problem Pneumonia due to infectious organism, unspecified laterality, unspecified part of lung J18.9 Active 312 084764 Problem Gastroesophageal reflux disease without esophagitis K21.9 Active 449118025 Problem Violation of controlled substance agreement Z91.14 Active 931137123 Problem Obstructive sleep apnea G47.33 Active 40158065 Problem Hypertension, benign I10 Active 19683981 Problem Venous insufficiency I87.2 Active 39565928 Problem Chronic obstructive pulmonary disease, unspecified COPD ty pe J44.9 Active 15258099 Problem Tobacco abuse counseling Z71.6 Activ e 83972712 Problem 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 A ctive 224730620 Problem Opiate dependence, continuous F11.20 Active 053982411 Problem Cannabis abuse with physiological dependence F12.1 0 Active 57480247 ALLERGIES No Information ENCOUNTERS Encounter Location Date Diagnosis [facility] [address] [address] May, [place] [address] [address] Apr, Tobacco abuse Z72.0 ; Hypertension, stefan gn I10 and Tobacco abuse counseling Z71.6 [place] [address] [address] Sep, [place] [address] [address] Sep, [facility] [address] [address] Sep, Essential hypertension I10 [place] [address] [address] Sep, [facility] [address] [address] Sep, [place] [address] [address] Sep, Neck mass R22.1 [facility] [address] [address] August, Neck mass R22.1 [facility] [address] [facility] [id number] [address] [place] [address] Feb, Left foot pain M79.672 [facility] [address] [address] Jun, Chronic pain syndrome G89.4 [facility] [address] [id number] [place] [id number] May, [facility] [address] [place] [id number] [place] [address] May, [facility] [address] [place] [id number] [place] [address] May, Chronic pain syndrome G89.4 [facility] [address] [place] [id number] [place] [address] May, [facility] [address] [facility] [id number] [address] [place] [address] 10 May, 2017 Encounter for immunization Z 23 and Laceration of left index finger without foreign body without damage to nail, initial encounter S61.211A [place] [address] [address] 09 May, 2017 Chronic pain syndrome G89.4 [facility] [address] [place] [id number] [place] [address] May, [place] [address] [address] Apr, Cannabis abuse with physiological depend ence F12.10 ; Violation of controlled substance agreement Z91.14 and Opiate dependence, continuous F11.20 [place] [address] [place] [id number] [place] [address] Apr, Type 2 diabetes mellitus without complic ation E11.9 [facility] [address] [place] [address] [place] [address] Apr, [place] [address] [address] Apr, Chronic pain syndrome G89.4 [facility] [address] [place] [id number] [place] [address] Apr, Viral syndrome B34.9 [facility] [address] [address] Apr, [facility] [address] [address] Mar, Chronic pain syndrome G89.4 [facility] [address] [address] Mar, [facility] [address] [address] Mar, [facility] [address] [address] Feb, Essential hypertension I10 ; Chronic nataly n syndrome G89.4 ; Hyperlipidemia, unspecified hyperlipidemia E78.5 ; 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 and Encounter for immunization Z23 [place] [address] [address] Feb, Chronic pain syndrome G89.4 [facility] [address] [address] Jan, Chronic pain syndrome G89.4 [facility] [address] [address] Jan, [facility] [address] [address] Jan, Bronchitis J40 ; Port catheter in place Z95.828 and Chronic pain syndrome G89.4 [facility] [address] [id number] [place] [id number] Jan, [facility] [address] [address] 22 Dec, 2016 Chronic pain syndrome G89.4 [facility] [address] [address] 18 Dec, 2016 Chronic pain syndrome G89.4 [facility] [address] [address] 08 Dec, 2016 [facility] [address] [address] Nov, [facility] [address] [address] Nov, Chronic pain syndrome G89.4 [facility] [address] [address] Oct, Chronic pain syndrome G89.4 [facility] [address] [address] Oct, [facility] [address] [address] Sep, Chronic pain syndrome G89.4 [facility] [address] [address] Sep, Exacerbation of systemic lupus M32.9 [facility] [address] [address] Sep, [facility] [address] [address] Sep, [facility] [address] [address] Sep, Nausea R11.0 [facility] [address] [address] August, Chronic pain syndrome G89.4 [facility] [address] [address] August, [facility] [address] [address] August, Chronic pain syndrome G89.4 [facility] [address] [address] Jul, Pneumonia due to infectious organism, un specified laterality, unspecified part of lung J18.9 and Tobacco abuse counseling Z71.6 [facility] [address] [address] Jul, Chronic pain syndrome G89.4 [facility] [address] [address] Jun, Essential hypertension I10 [facility] [address] [address] Jun, Pneumonia due to infectious organism, un specified laterality, unspecified part of lung J18.9 [place] [address] [address] Jun, Chronic pain syndrome G89.4 [place] [address] [address] May, Essential hypertension I10 ; Type 2 [...] reflux disease without esophagitis K21.9 [place] [address] [address] Apr, [address] [address] Apr, Pneumonia due to infectious organism, un specified laterality, unspecified part of lung J18.9 and Nausea R11.[address] [address] Apr, Essential hypertension I10 ; Chronic nataly n syndrome G89.4 ; Type 2 diabetes mellitus without complication E11.9 ; Hyperlipidemia, unspecified hyperlipidemia E78.5 ; Major depressive disorder, recurrent episode, unspecified severity F33.9 ; Sciatica, unspecified laterality M54.30 ; Chronic obstructive pulmonary disease, unspecified COPD type J44.9 ; Pneumonia due to infectious organism, unspecified laterality, unspecified part of lung J18.9 and Nausea R11.0 [facility] [address] [facility] [id number] [address] [place] [address] Mar, [address] [address] Mar, [place] [address] [address] Mar, [place] [address] [address] Mar, Anxiety F41.9 and Major depressive disor rita, recurrent episode, unspecified severity F33.9 [place] [address] [address] Mar, [place] [address] [address] Mar, [place] [address] [address] Mar, Generalized abdominal pain R10.84 ; Acut e cystitis with hematuria N30.01 and Essential hypertension I10 [facility] [address] [place] [address] Mar, Sore throat J02.9 and Exacer bation of systemic lupus M32.9 [place] [address] [address] Feb, Type 2 diabetes mellitus without complic [...] reflux disease, esophagitis presence not specified K21.9 [place] [address] [address] Feb, [place] [address] [address] Jan, [facility] [place] [id number] [place] [address] Jan, Right arm pain M79.[address] of right wrist, initial encounter S66.911A [place] [address] [address] Jan, [facility] [address] [facility] [id number] [address] [place] [address] 30 Dec, 2015 Generalized abdominal pain R 10.84 [place] [address] [address] Dec, Adenopathy R59.1 [place] [address] [address] 19 Dec, 2015 Bronchitis J40 [place] [address] [address] 14 Dec, 2015 [place] [address] [address] Dec, Essential hypertension I10 [place] [address] [address] Nov, [place] [address] [address] Nov, [place] [address] [address] Nov, Essential hypertension I10 ; Hyperlipide martha, [...] Type 2 diabetes mellitus without complication E11.9 [place] [address] [address] Nov, [facility] [address] [address] Oct, Type 2 diabetes mellitus without complic ation E11.9 ; Essential hypertension I10 ; Other viral warts B07.8 ; Mosheim or callus L84 and Hyperlipidemia, unspecified hyperlipidemia E78.5 [facility] [address] [address] Sep, [facility] [address] [address] Sep, [facility] [address] [address] Jun, [facility] [address] [address] Jun, [facility] [address] [address] May, [facility] [address] [address] Apr, [facility] [address] [address] Feb, [facility] [address] [address] Feb, COPD exacerbation J44.1 and Acute upper respiratory infection J06.9 [facility] [address] [address] Feb, [facility] [address] [address] Feb, [facility] [address] [address] Feb, [facility] [address] [address] Feb, [facility] [address] [address] Jan, Left hip pain M25.552 [facility] [address] [id number] [place] [address] Jan, Essential hypertension I10 ; Chronic nataly n syndrome G89.4 ; Type 2 diabetes mellitus without complication E11.9 and Hyperlipidemia, unspecified hyperlipidemia E78.5 [facility] [address] [id number] [place] [address] 28 Jul, 2014 [facility] [address] [place] [id number] [place] [address] 14 Jul, 2014 [facility] [address] [id number] [place] [address] Jul, [facility] [address] [place] [address] [id number] [place] [address] 25 Jun, 2014 [facility] [address] [place] [address] [id number] [place] [address] Jun, [facility] [address] [place] [address] [id number] [place] [address] 24 Jun, 2014 [facility] [address] [place] [address] [id number] [place] [address] Jun, [facility] [address] [place] [address] [id number] [place] [address] Jun, [facility] [address] [place] [address] [id number] [place] [address] Jun, [facility] [address] [place] [address] [id number] [place] [address] Jun, [facility] [address] [place] [id number] [place] [address] Jun, [facility] [address] [place] [id number] [place] [address] 18 Jun, 2014 [facility] [address] [place] [address] [id number] [place] [address] 18 Jun, 2014 [facility] [address] [place] [address] [id number] [place] [address] Jun, [facility] [address] [place] [id number] [place] [address] Jun, [facility] [place] [facility] [address] [facility] [id number] [place] [address] Apr, [facility] [place] [facility] [address] [id number] [place] [address] Apr, [facility] [place] [facility] [address] [id number] [place] [address] Apr, [facility] [place] [facility] [address] [id number] [place] [address] Apr, [facility] [place] [facility] [address] [id number] [place] [address] Apr, [facility] [place] [facility] [address] [id number] [place] [address] Apr, [facility] [place] [facility] [address] [id number] [place] [address] Apr, [facility] [place] [facility] [address] [id number] [place] [address] Apr, [facility] [place] [facility] [address] [id number] [place] [address] Mar, [facility] [place] [facility] [address] [id number] [place] [address] Mar, [facility] [place] [facility] [address] [id number] [place] [address] Mar, [facility] [place] [facility] [address] [id number] [place] [address] Mar, [facility] [place] [facility] [address] [id number] [place] [address] Mar, [facility] [place] [facility] [address] [id number] [place] [address] 18 Mar, 2014 [facility] [place] [facility] [address] [id number] [place] [address] 15 Mar, 2014 [facility] [place] [facility] [address] [id number] [place] [address] Mar, [facility] [place] [facility] [address] [id number] [place] [address] Mar, [facility] [place] [facility] [address] [id number] [place] [address] Mar, [facility] [place] [facility] [address] [id number] [place] [address] Mar, [facility] [place] [facility] [address] [id number] [place] [address] Mar, [facility] [place] [facility] [address] [id number] [place] [address] Mar, [facility] [place] [facility] [address] [id number] [place] [address] Feb, [facility] [place] [facility] [address] [id number] [place] [address] Feb, [facility] [place] [facility] [address] [place] [address] [id number] [place] [address] Feb, [facility] [place] [facility] [address] [id number] [place] [address] Feb, [facility] [place] [facility] [address] [id number] [place] [address] Feb, [facility] [place] [facility] [address] [id number] [place] [address] Feb, [facility] [place] [facility] [address] [id number] [place] [address] Feb, [facility] [place] [facility] [address] [id number] [place] [address] Feb, [facility] [place] [facility] [address] [id number] [place] [address] Jan, [facility] [place] [facility] [address] [place] [address] [id number] [place] [address] Jan, [facility] [place] [facility] [address] [id number] [place] [address] Jan, [facility] [place] [facility] [address] [place] [address] [id number] [place] [address] Jan, [facility] [place] [facility] [address] [id number] [place] [address] Jan, [facility] [place] [facility] [address] [id number] [place] [address] Jan, [facility] [place] [facility] [address] [id number] [place] [address] Jan, 2013 [facility] [place] [facility] [address] [id number] [place] [address] Jan, [facility] [place] [facility] [address] [facility] [id number] [place] [address] Jan, 2013 [facility] [place] [facility] [address] [id number] [place] [address] 30 Dec, 2013 [facility] [place] [facility] [address] [id number] [place] [address] 30 Dec, 2013 [facility] [place] [facility] [address] [id number] [place] [address] 26 Dec, 2013 [facility] [place] [facility] [address] [id number] [place] [address] 26 Sep, 2013 [facility] [place] [facility] [address] [id number] [place] [address] 16 Sep, 2013 [facility] [place] [facility] [address] [id number] [place] [address] 16 Sep, 2013 [facility] [place] [facility] [address] [id number] [place] [address] 08 Sep, 2013 [facility] [place] [facility] [address] [id number] [place] [address] 08 Sep, 2013 [facility] [place] [facility] [address] [id number] [place] [address] 04 Sep, 2013 [facility] [place] [facility] [address] [id number] [place] [address] 04 Dec, 2013 [facility] [place] [facility] [address] [id number] [place] [address] 29 Nov, 2013 [facility] [place] [facility] [address] [id number] [place] [address] Nov, [facility] [place] [facility] [address] [id number] [place] [address] Nov, [facility] [place] [facility] [address] [facility] [id number] [facility] [place] [facility] [place] [address] Nov, [facility] [place] [facility] [address] [id number] [facility] [place] [address] Nov, [facility] [place] [facility] [address] [facility] [id number] [facility] [place] [facility] [address] Nov, [facility] [place] [facility] [address] [facility] [id number] [place] [address] Nov, [facility] [place] [facility] [address] [id number] [facility] [place] [facility] [address] Nov, [facility] [place] [facility] [address] [id number] [facility] [place] [facility] [place] [address] Nov, [facility] [place] [facility] [address] [id number] [facility] [place] [address] Nov, [facility] [place] [facility] [address] [facility] [id number] [facility] [place] [facility] [address] Nov, [facility] [place] [facility] [address] [id number] [facility] [place] [facility] [address] Nov, [facility] [place] [facility] [address] [id number] [place] [address] Nov, [facility] [place] [facility] [address] [id number] [facility] [place] [facility] [address] Oct, [facility] [place] [facility] [address] [facility] [id number] [facility] [place] [address] Oct, [facility] [place] [facility] [address] [id number] [facility] [place] [facility] [address] Oct, [facility] [place] [facility] [address] [facility] [id number] [place] [address] Oct, [facility] [place] [facility] [address] [id number] [place] [address] Oct, [facility] [place] [facility] [address] [facility] [id number] [place] [address] Oct, [facility] [place] [facility] [address] [facility] [id number] [place] [address] Sep, [facility] [place] [facility] [address] [facility] [id number] [place] [address] Sep, [facility] [place] [facility] [address] [id number] [place] [address] Sep, [facility] [place] [facility] [address] [facility] [id number] [place] [address] Sep, [facility] [place] [facility] [address] [id number] [place] [address] Sep, [facility] [place] [facility] [address] [id number] [place] [address] Sep, [facility] [place] [facility] [address] [id number] [place] [address] Sep, [facility] [place] [facility] [address] [id number] [place] [address] Sep, [facility] [place] [facility] [address] [id number] [place] [address] Sep, [facility] [place] [facility] [address] [id number] [place] [address] Sep, [facility] [place] [facility] [address] [id number] [place] [address] Sep, [facility] [place] [facility] [address] [id number] [place] [address] Sep, [facility] [place] [facility] [address] [id number] [place] [address] August, [facility] [place] [facility] [address] [id number] [place] [address] August, [facility] [place] [facility] [address] [id number] [place] [address] Jul, [facility] [place] [facility] [address] [id number] [place] [address] Jul, [facility] [place] [facility] [address] [facility] [id number] [place] [address] Jul, [facility] [place] [facility] [address] [facility] [id number] [place] [address] 24 Jul, 2013 [facility] [place] [facility] [address] [id number] [place] [address] Jul, [facility] [place] [facility] [address] [id number] [place] [address] Jul, [facility] [place] [facility] [address] [facility] [id number] [place] [address] Jul, [facility] [place] [facility] [address] [id number] [place] [address] 16 Jul, 2013 [facility] [place] [facility] [address] [id number] [place] [address] Jul, [facility] [place] [facility] [address] [id number] [place] [address] Jul, [facility] [place] [facility] [address] [id number] [place] [address] Jul, [facility] [place] [facility] [address] [id number] [place] [address] Jun, [facility] [place] [facility] [address] [id number] [place] [address] Jun, [facility] [address] [id number] [place] [address] Jun, [facility] [address] [id number] [place] [address] Jun, [facility] [address] [id number] [place] [address] Jun, [facility] [address] [id number] [place] [address] Jun, [facility] [address] [id number] [place] [address] Jun, [facility] [address] [id number] [place] [address] Jun, [facility] [address] [facility] [id number] [place] [address] May, [facility] [address] [id number] [place] [address] May, [facility] [address] [id number] [place] [address] May, [facility] [address] [id number] [place] [address] May, [facility] [address] [id number] [place] [address] May, [facility] [address] [id number] [place] [address] May, [facility] [address] [id number] [place] [address] May, [facility] [address] [id number] [place] [address] May, [facility] [address] [id number] [place] [address] May, [facility] [address] [id number] [place] [address] May, [facility] [address] [id number] [place] [address] May, [facility] [address] [id number] [place] [address] May, [facility] [address] [id number] [place] [address] May, [facility] [address] [id number] [place] [address] Apr, [facility] [address] [id number] [place] [address] Apr, [facility] [address] [id number] [place] [address] Apr, [facility] [address] [facility] [id number] [place] [address] Apr, [facility] [address] [facility] [id number] [place] [address] Apr, [facility] [address] [id number] [place] [address] Apr, [facility] [address] [id number] [place] [address] Apr, [facility] [address] [facility] [id number] [place] [address] Apr, [facility] [address] [id number] [place] [address] Apr, [facility] [address] [id number] [place] [address] Apr, [facility] [address] [id number] [place] [address] Apr, [facility] [address] [id number] [place] [address] Apr, [facility] [address] [id number] [place] [address] Apr, [facility] [place] [facility] [address] [id number] [place] [address] Apr, [facility] [place] [facility] [address] [id number] [place] [address] Apr, [facility] [place] [facility] [address] [facility] [id number] [place] [address] Mar, [facility] [place] [facility] [address] [facility] [id number] [place] [address] Mar, [facility] [place] [facility] [address] [id number] [place] [address] Mar, [facility] [place] [facility] [address] [id number] [place] [address] Mar, [facility] [place] [facility] [address] [id number] [place] [address] 20 Mar, 2013 [facility] [place] [facility] [address] [id number] [place] [address] 20 Mar, 2013 [facility] [place] [facility] [address] [id number] [place] [address] 17 Mar, 2013 [facility] [place] [facility] [address] [id number] [place] [address] 17 Mar, 2013 [facility] [place] [facility] [address] [id number] [place] [address] Mar, [facility] [place] [facility] [address] [id number] [place] [address] Mar, [facility] [place] [facility] [address] [id number] [place] [address] Mar, [facility] [place] [facility] [address] [id number] [place] [address] Mar, [facility] [place] [facility] [address] [id number] [place] [address] Feb, [facility] [place] [facility] [address] [id number] [place] [address] Feb, [facility] [place] [facility] [id number] [place] [address] Feb, [facility] [place] [facility] [address] [id number] [place] [address] Feb, [facility] [place] [facility] [address] [id number] [place] [address] Feb, [facility] [place] [facility] [address] [id number] [place] [address] Feb, [facility] [place] [facility] [id number] [place] [address] Feb, [facility] [place] [facility] [address] [id number] [place] [address] Feb, [facility] [place] [facility] [address] [id number] [place] [address] Jan, [facility] [place] [facility] [address] [id number] [place] [address] Jan, [facility] [place] [facility] [address] [id number] [place] [address] Jan, [facility] [place] [facility] [address] [id number] [place] [address] Jan, [facility] [place] [facility] [address] [id number] [place] [address] Jan, [facility] [place] [facility] [address] [facility] [id number] [place] [address] Jan, [facility] [place] [facility] [address] [id number] [place] [address] Jan, [facility] [place] [facility] [address] [id number] [place] [address] Dec, [facility] [place] [facility] [address] [id number] [place] [address] Dec, [facility] [place] [facility] [address] [id number] [place] [address] Dec, [facility] [place] [facility] [address] [id number] [place] [address] Dec, [facility] [place] [facility] [address] [id number] [place] [address] Dec, [facility] [place] [facility] [address] [id number] [place] [address] Nov, [facility] [place] [facility] [address] [id number] [place] [address] Nov, [facility] [place] [facility] [address] [facility] [id number] [place] [address] Nov, [facility] [place] [facility] [address] [id number] [place] [address] Nov, [facility] [place] [facility] [address] [id number] [place] [address] Nov, [facility] [place] [facility] [address] [id number] [place] [address] Nov, [facility] [place] [facility] [address] [facility] [id number] [facility] [place] [facility] [place] [address] Nov, [facility] [place] [facility] [address] [facility] [id number] [facility] [place] [facility] [place] [address] Oct, [facility] [place] [facility] [address] [facility] [id number] [facility] [place] [facility] [place] [address] Oct, [facility] [place] [facility] [address] [facility] [id number] [place] [address] Oct, [facility] [place] [facility] [address] [facility] [id number] [facility] [place] [facility] [place] [address] Oct, [facility] [place] [facility] [address] [id number] [facility] [place] [facility] [place] [address] Oct, [facility] [place] [facility] [address] [id number] [place] [address] Oct, [facility] [place] [facility] [address] [id number] [facility] [place] [address] Oct, [facility] [place] [facility] [address] [facility] [id number] [facility] [place] [facility] [address] Oct, [facility] [place] [facility] [address] [id number] [facility] [place] [facility] [address] Sep, [facility] [place] [facility] [address] [id number] [place] [address] Sep, [facility] [place] [facility] [address] [id number] [place] [address] Sep, [facility] [place] [facility] [address] [facility] [id number] [facility] [place] [facility] [place] [address] Sep, [facility] [place] [facility] [address] [facility] [id number] [place] [address] Sep, [facility] [place] [facility] [address] [facility] [id number] [place] [address] Sep, [facility] [place] [facility] [address] [id number] [facility] [place] [facility] [address] August, [facility] [place] [facility] [address] [id number] [place] [address] August, [facility] [address] [id number] [place] [address] August, [facility] [place] [facility] [address] [id number] [place] [address] August, [facility] [place] [facility] [address] [id number] [place] [address] August, [facility] [place] [facility] [address] [id number] [place] [address] Jul, [facility] [place] [facility] [address] [id number] [place] [address] Jul, [facility] [place] [facility] [address] [id number] [place] [address] Jul, [facility] [place] [facility] [address] [id number] [place] [address] Jul, [facility] [place] [facility] [address] [id number] [place] [address] Jul, [facility] [place] [facility] [address] [id number] [place] [address] Jul, [facility] [place] [facility] [address] [id number] [place] [address] 14 Jun, 2012 [facility] [place] [facility] [address] [id number] [place] [address] Jun, [facility] [place] [facility] [address] [id number] [place] [address] Jun, [facility] [place] [facility] [address] [id number] [place] [address] Jun, [facility] [place] [facility] [address] [id number] [place] [address] 05 Jun, 2012 [facility] [place] [facility] [address] [id number] [place] [address] May, [facility] [place] [facility] [address] [id number] [place] [address] 13 May, 2012 [facility] [place] [facility] [address] [id number] [place] [address] May, [facility] [place] [facility] [address] [id number] [place] [address] Apr, [facility] [place] [facility] [address] [id number] [place] [address] Apr, [facility] [place] [facility] [address] [id number] [place] [address] Mar, [facility] [place] [facility] [address] [id number] [place] [address] Mar, [facility] [place] [facility] [address] [id number] [place] [address] Mar, [facility] [place] [facility] [address] [id number] [place] [address] Mar, [facility] [place] [facility] [address] [id number] [place] [address] Mar, [facility] [place] [facility] [address] [id number] [place] [address] Mar, [facility] [place] [facility] [address] [id number] [place] [address] Feb, [facility] [place] [facility] [address] [id number] [place] [address] Feb, [facility] [place] [facility] [address] [id number] [place] [address] Feb, [facility] [place] [facility] [address] [id number] [place] [address] Jan, [facility] [place] [facility] [address] [id number] [place] [address] Jan, [facility] [place] [facility] [address] [id number] [place] [address] Jan, [facility] [place] [facility] [address] [id number] [place] [address] 24 Jan, 2012 [facility] [place] [facility] [address] [id number] [place] [address] 24 Jan, 2012 [facility] [place] [facility] [address] [facility] [id number] [place] [address] Jan, [facility] [place] [facility] [address] [id number] [place] [address] 17 Jan, 2012 [facility] [place] [facility] [address] [id number] [place] [address] 16 Jan, 2012 [facility] [place] [facility] [address] [id number] [place] [address] Jan, [facility] [place] [facility] [address] [id number] [place] [address] Dec, [facility] [place] [facility] [address] [id number] [place] [address] Dec, [facility] [place] [facility] [address] [id number] [place] [address] Dec, [facility] [place] [facility] [address] [id number] [place] [address] Nov, [facility] [place] [facility] [address] [id number] [place] [address] Nov, [facility] [place] [facility] [address] [id number] [place] [address] Nov, [facility] [place] [facility] [address] [id number] [place] [address] Oct, [facility] [place] [facility] [address] [id number] [place] [address] Oct, [facility] [place] [facility] [address] [id number] [place] [address] Sep, [facility] [place] [facility] [address] [id number] [place] [address] Sep, [facility] [place] [facility] [address] [id number] [place] [address] 18 Sep, 2011 [facility] [place] [facility] [address] [id number] [place] [address] Sep, [facility] [place] [facility] [address] [id number] [place] [address] Sep, [facility] [place] [facility] [address] [id number] [place] [address] August, [facility] [place] [facility] [address] [id number] [place] [address] August, [facility] [place] [facility] [address] [id number] [place] [address] August, [facility] [place] [facility] [address] [id number] [place] [address] August, [facility] [place] [facility] [address] [id number] [place] [address] August, [facility] [place] [facility] [address] [id number] [place] [address] August, [facility] [place] [facility] [address] [id number] [place] [address] August, [facility] [place] [facility] [address] [id number] [place] [address] August, [facility] [place] [facility] [address] [id number] [place] [address] August, [facility] [place] [facility] [address] [id number] [place] [address] Jul, [facility] [place] [facility] [address] [id number] [place] [address] Jul, [facility] [place] [facility] [address] [id number] [place] [address] Jul, [facility] [place] [facility] [address] [id number] [place] [address] 04 Jul, 2011 [facility] [place] [facility] [address] [id number] [place] [address] 27 Jun, 2011 [facility] [place] [facility] [address] [id number] [place] [address] Jun, [facility] [place] [facility] [address] [id number] [place] [address] Jun, [facility] [place] [facility] [address] [id number] [facility] [place] [place] [address] 27 May, 2011 [facility] [place] [facility] [address] [id number] [place] [address] 24 May, 2011 [facility] [place] [facility] [address] [facility] [id number] [facility] [place] [place] [address] 20 May, 2011 [facility] [place] [facility] [address] [id number] [place] [address] 16 May, 2011 [facility] [place] [facility] [address] [facility] [id number] [facility] [place] [address] 15 May, 2011 [facility] [place] [facility] [address] [id number] [place] [address] 14 May, 2011 [facility] [place] [facility] [address] [id number] [place] [address] 10 May, 2011 [facility] [place] [facility] [address] [id number] [place] [address] 09 May, 2011 [facility] [place] [facility] [address] [id number] [place] [address] 02 May, 2011 [facility] [place] [facility] [address] [id number] [place] [address] 30 Apr, 2011 [facility] [place] [facility] [address] [id number] [place] [address] Apr, [facility] [place] [facility] [address] [id number] [place] [address] Apr, [facility] [place] [facility] [address] [id number] [place] [address] 17 Apr, 2011 [facility] [place] [facility] [address] [id number] [place] [address] 16 Apr, 2011 [facility] [place] [facility] [address] [id number] [place] [address] 13 Apr, 2011 [facility] [place] [facility] [address] [id number] [place] [address] 09 Apr, 2011 [facility] [place] [facility] [id number] [place] [address] Apr, [facility] [id number] [place] [address] Apr, [facility] [id number] [place] [address] Apr, [facility] [address] [address] Apr, [facility] [address] [address] Mar, [facility] [address] [address] Mar, [facility] [address] [address] Mar, [facility] [address] [address] Mar, [facility] [address] [address] Feb, [facility] [id number] [place] [address] Feb, [facility] [address] [address] Jan, [facility] [address] [address] Nov, IMMUNIZATIONS No Known Immunizations SOCIAL HISTORY [...] laser treatment for glaucoma Hospitalization History [facility]- Right side and back pain related to fall, hurts to breathe (ED at 7 pm) 06/07/2017 Hospitalization History [facility] [place]- Anxiety ( went to ED at 1200) 06/07/2017 Hospitalization History COPD exacerbation - [facility] 2017 Hospitalization History Blood clot, port placement - [facility] 09/2017
--- OUTSIDE RECORDS SUMMARY | 2019-09-01 14:28 | XMS REPORT ---
Author Author RADHA Sophianaren OLIVA [facility] Address [address] [place] [address] Care Team Providers Care Property Management Intern Name Role Phone RADHAGASPER MCPHERSONY Unavailable PROBLEMS Type Condition ICD9-CM Code TED06-IY Code Onset Dates Condition S tatus SNOMED Code Problem Proteinuria R80.9 Active 83119380 Problem Essential hypertension I10 Active 46847766 Problem Anxiety F41.9 Active 79737460 Problem Type 2 diabetes mellitus without complication E11. 9 Active 61632208 Problem Hyperlipidemia, unspecified hyperlipidemia E78.5 Active 83394482 Problem Major depressive disorder, recurrent episode, un specified severity F33.9 Active 50667554 Problem Sciatica, unspecified laterality M54.30 Active 08007005 Problem Acute cystitis with hematuria N30.01 Active 47204606 Problem Chronic pain syndrome G89.4 Active 289918948 Problem Exacerbation of systemic lupus M32.9 Active 12268858 Problem Generalized abdominal pain R10.84 Act sree 539235422 Problem Carpal tunnel syndrome, right upper limb G56.01 Active 33064653 Problem History of small bowel obstruction Z87.19 Active 299320363 Problem History of pulmonary embolism Z86.711 Active 454699038 Problem Presence of IVC filter Z95.828 Active 353576467 Problem Port catheter in place Z95.828 Active 238461533 Problem Gastroesophageal reflux disease, esophagitis pre sence not specified K21.9 Active 387994957 Problem Chronic pancreatitis, unspecified pancreatitis type K86.1 Active 148668545 Problem Hypothyroidism, unspecified type E03.9 Active 74737317 Problem Vitamin D deficiency E55.9 Active 40287060 Problem Nausea R11.0 Active 543920704 Problem Pneumonia due to infectious organism, unspecified laterality, unspecified part of lung J18.9 Active 312 428025 Problem Gastroesophageal reflux disease without esophagitis K21.9 Active 563489248 Problem Violation of controlled substance agreement Z91.14 Active 549159195 Problem Obstructive sleep apnea G47.33 Active 99743396 Problem Hypertension, benign I10 Active 29888658 Problem Venous insufficiency I87.2 Active 92059173 Problem Chronic obstructive pulmonary disease, unspecified COPD ty pe J44.9 Active 45332194 Problem Tobacco abuse counseling Z71.6 Activ e 40537385 Problem 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 A ctive 482664099 Problem Opiate dependence, continuous F11.20 Active 705297633 Problem Cannabis abuse with physiological dependence F12.1 0 Active 78055106 ALLERGIES No Information ENCOUNTERS Encounter Location Date Diagnosis [facility] [address] [address] May, [place] [address] [address] Apr, Tobacco abuse Z72.0 ; Hypertension, stefan gn I10 and Tobacco abuse counseling Z71.6 [place] [address] [address] Sep, [place] [address] [address] Sep, [facility] [address] [address] Sep, Essential hypertension I10 [place] [address] [address] Sep, [facility] [address] [address] Sep, [place] [address] [address] Sep, Neck mass R22.1 [facility] [address] [address] August, Neck mass R22.1 [facility] [address] [facility] [id number] [address] [place] [address] Feb, Left foot pain M79.672 [facility] [address] [address] Jun, Chronic pain syndrome G89.4 [facility] [address] [id number] [id number] May, [facility] [address] [place] [id number] [place] [address] May, [facility] [address] [place] [id number] [place] [address] May, Chronic pain syndrome G89.4 [facility] [address] [place] [id number] [place] [address] May, [facility] [address] [facility] [id number] [address] [place] [address] 10 May, 2017 Encounter for immunization Z 23 and Laceration of left index finger without foreign body without damage to nail, initial encounter S61.211A [place] [address] [address] 09 May, 2017 Chronic pain syndrome G89.4 [facility] [address] [place] [id number] [place] [address] May, [place] [address] [address] Apr, Cannabis abuse with physiological depend ence F12.10 ; Violation of controlled substance agreement Z91.14 and Opiate dependence, continuous F11.20 [place] [address] [place] [id number] [place] [address] Apr, Type 2 diabetes mellitus without complic ation E11.9 [facility] [address] [place] [id number] [place] [address] Apr, [place] [address] [address] Apr, Chronic pain syndrome G89.4 [facility] [address] [place] [id number] [place] [address] Apr, Viral syndrome B34.9 [facility] [address] [address] Apr, [facility] [address] [address] Mar, Chronic pain syndrome G89.4 [facility] [address] [address] Mar, [facility] [address] [address] Mar, [facility] [address] [address] Feb, Essential hypertension I10 ; Chronic nataly n syndrome G89.4 ; Hyperlipidemia, unspecified hyperlipidemia E78.5 ; 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 and Encounter for immunization Z23 [place] [address] [address] Feb, Chronic pain syndrome G89.4 [facility] [address] [address] Jan, Chronic pain syndrome G89.4 [facility] [address] [address] Jan, [facility] [address] [address] Jan, Bronchitis J40 ; Port catheter in place Z95.828 and Chronic pain syndrome G89.4 [facility] [address] [id number] [id number] Jan, [facility] [address] [address] 22 Dec, 2016 Chronic pain syndrome G89.4 [facility] [address] [address] 18 Dec, 2016 Chronic pain syndrome G89.4 [facility] [address] [address] 08 Dec, 2016 [facility] [address] [address] Nov, [facility] [address] [address] Nov, Chronic pain syndrome G89.4 [facility] [address] [address] Oct, Chronic pain syndrome G89.4 [facility] [address] [address] Oct, [facility] [address] [address] Sep, Chronic pain syndrome G89.4 [facility] [address] [address] Sep, Exacerbation of systemic lupus M32.9 [facility] [address] [address] Sep, [facility] [address] [address] Sep, [facility] [address] [address] Sep, Nausea R11.0 [facility] [address] [address] August, Chronic pain syndrome G89.4 [facility] [address] [address] August, [facility] [address] [address] August, Chronic pain syndrome G89.4 [facility] [address] [address] Jul, Pneumonia due to infectious organism, un specified laterality, unspecified part of lung J18.9 and Tobacco abuse counseling Z71.6 [facility] [address] [address] Jul, Chronic pain syndrome G89.4 [facility] [address] [address] Jun, Essential hypertension I10 [facility] [address] [address] Jun, Pneumonia due to infectious organism, un specified laterality, unspecified part of lung J18.9 [place] [address] [address] Jun, Chronic pain syndrome G89.4 [place] [address] [address] May, Essential hypertension I10 ; Type 2 [...] and Gastroesophageal reflux disease without esophagitis K21.9 [place] [address] [address] Apr, [address] [address] Apr, Pneumonia due to infectious organism, un specified laterality, unspecified part of lung J18.9 and Nausea R11.[address] [address] Apr, Essential hypertension I10 ; Chronic nataly n syndrome G89.4 ; Type 2 diabetes mellitus without complication E11.9 ; Hyperlipidemia, unspecified hyperlipidemia E78.5 ; Major depressive disorder, recurrent episode, unspecified severity F33.9 ; Sciatica, unspecified laterality M54.30 ; Chronic obstructive pulmonary disease, unspecified COPD type J44.9 ; Pneumonia due to infectious organism, unspecified laterality, unspecified part of lung J18.9 and Nausea R11.0 [facility] [address] [facility] [id number] [address] [place] [address] Mar, [address] [address] Mar, [place] [address] [address] Mar, [place] [address] [address] Mar, Anxiety F41.9 and Major depressive disor rita, recurrent episode, unspecified severity F33.9 [place] [address] [address] Mar, [place] [address] [address] Mar, [place] [address] [address] Mar, Generalized abdominal pain R10.84 ; Acut e cystitis with hematuria N30.01 and Essential hypertension I10 [facility] [address] [place] [address] Mar, Sore throat J02.9 and Exacer bation of systemic lupus M32.9 [place] [address] [address] Feb, Type 2 diabetes mellitus without complic [...] reflux disease, esophagitis presence not specified K21.9 [place] [address] [address] Feb, [place] [address] [address] Jan, [facility] [place] [id number] [place] [address] Jan, Right arm pain M79.601 [address] train of right wrist, initial encounter S66.911A [place] [address] [address] Jan, [facility] [address] [facility] [id number] [address] [place] [address] 30 Dec, 2015 Generalized abdominal pain R 10.84 [place] [address] [address] Dec, Adenopathy R59.1 [place] [address] [address] 19 Dec, 2015 Bronchitis J40 [place] [address] [address] 14 Dec, 2015 [place] [address] [address] Dec, Essential hypertension I10 [place] [address] [address] Nov, [place] [address] [address] Nov, [place] [address] [address] Nov, Essential hypertension I10 ; Hyperlipide martha, [...] Type 2 diabetes mellitus without complication E11.9 [place] [address] [address] Nov, [facility] [address] [address] Oct, Type 2 diabetes mellitus without complic ation E11.9 ; Essential hypertension I10 ; Other viral warts B07.8 ; [place] or callus L84 and Hyperlipidemia, unspecified hyperlipidemia E78.5 [facility] [address] [address] Sep, [facility] [address] [address] Sep, [facility] [address] [address] Jun, [facility] [address] [address] Jun, [facility] [address] [address] May, [facility] [address] [address] Apr, [facility] [address] [address] Feb, [facility] [address] [address] Feb, COPD exacerbation J44.1 and Acute upper respiratory infection J06.9 [facility] [address] [address] Feb, [facility] [address] [address] Feb, [facility] [address] [address] Feb, [facility] [address] [address] Feb, [facility] [address] [address] Jan, Left hip pain M25.552 [facility] [address] [id number] [place] [address] Jan, Essential hypertension I10 ; Chronic nataly n syndrome G89.4 ; Type 2 diabetes mellitus without complication E11.9 and Hyperlipidemia, unspecified hyperlipidemia E78.5 [facility] [address] [id number] [place] [address] 28 Jul, 2014 [facility] [address] [place] [id number] [place] [address] 14 Jul, 2014 [facility] [address] [id number] [place] [address] Jul, [facility] [address] [place] [id number] [place] [address] 25 Jun, 2014 [facility] [address] [place] [id number] [place] [address] Jun, [facility] [address] [place] [id number] [place] [address] 24 Jun, 2014 [facility] [address] [place] [id number] [place] [address] Jun, [facility] [address] [place] [id number] [place] [address] Jun, [facility] [address] [place] [id number] [place] [address] Jun, [facility] [address] [place] [id number] [place] [address] Jun, [facility] [address] [place] [id number] [place] [address] Jun, [facility] [address] [place] [id number] [place] [address] 18 Jun, 2014 [facility] [address] [place] [address] [id number] [place] [address] 18 Jun, 2014 [facility] [address] [place] [id number] [place] [address] Jun, [facility] [address] [place] [id number] [place] [address] Jun, [facility] [place] [facility] [address] [facility] [id number] [place] [address] Apr, [facility] [place] [facility] [address] [id number] [place] [address] Apr, [facility] [place] [facility] [address] [id number] [place] [address] Apr, [facility] [place] [facility] [address] [id number] [place] [address] Apr, [facility] [place] [facility] [address] [id number] [place] [address] Apr, [facility] [place] [facility] [address] [id number] [place] [address] Apr, [facility] [place] [facility] [address] [id number] [place] [address] Apr, [facility] [place] [facility] [address] [id number] [place] [address] Apr, [facility] [place] [facility] [address] [id number] [place] [address] Mar, [facility] [place] [facility] [address] [id number] [place] [address] Mar, [facility] [place] [facility] [address] [id number] [place] [address] Mar, [facility] [place] [facility] [address] [id number] [place] [address] Mar, [facility] [place] [facility] [address] [id number] [place] [address] Mar, [facility] [place] [facility] [address] [id number] [place] [address] 18 Mar, 2014 [facility] [place] [facility] [address] [id number] [place] [address] 15 Mar, 2014 [facility] [place] [facility] [address] [id number] [place] [address] Mar, [facility] [place] [facility] [address] [id number] [place] [address] Mar, [facility] [place] [facility] [address] [id number] [place] [address] Mar, [facility] [place] [facility] [address] [id number] [place] [address] Mar, [facility] [place] [facility] [address] [id number] [place] [address] Mar, [facility] [place] [facility] [address] [id number] [place] [address] Mar, [facility] [place] [facility] [address] [id number] [place] [address] Feb, [facility] [place] [facility] [address] [id number] [place] [address] Feb, [facility] [place] [facility] [address] [place] [id number] [place] [address] Feb, [facility] [place] [facility] [address] [id number] [place] [address] Feb, [facility] [place] [facility] [address] [id number] [place] [address] Feb, [facility] [place] [facility] [address] [id number] [place] [address] Feb, [facility] [place] [facility] [address] [id number] [place] [address] Feb, [facility] [place] [facility] [address] [id number] [place] [address] Feb, [facility] [place] [facility] [address] [id number] [place] [address] Jan, [facility] [place] [facility] [address] [place] [id number] [place] [address] Jan, [facility] [place] [facility] [address] [id number] [place] [address] Jan, [facility] [place] [facility] [address] [place] [id number] [place] [address] Jan, [facility] [place] [facility] [address] [id number] [place] [address] Jan, [facility] [place] [facility] [address] [id number] [place] [address] Jan, [facility] [place] [facility] [address] [id number] [place] [address] Jan, 2013 [facility] [place] [facility] [address] [id number] [place] [address] Jan, [facility] [place] [facility] [address] [facility] [id number] [place] [address] Jan, 2013 [facility] [place] [facility] [address] [id number] [place] [address] 30 Dec, 2013 [facility] [place] [facility] [address] [id number] [place] [address] 30 Dec, 2013 [facility] [place] [facility] [address] [id number] [place] [address] 26 Dec, 2013 [facility] [place] [facility] [address] [id number] [place] [address] 26 Sep, 2013 [facility] [place] [facility] [address] [id number] [place] [address] 16 Sep, 2013 [facility] [place] [facility] [address] [id number] [place] [address] 16 Sep, 2013 [facility] [place] [facility] [address] [id number] [place] [address] 08 Sep, 2013 [facility] [place] [facility] [address] [id number] [place] [address] 08 Sep, 2013 [facility] [place] [facility] [address] [id number] [place] [address] 04 Sep, 2013 [facility] [place] [facility] [address] [id number] [place] [address] 04 Dec, 2013 [facility] [place] [facility] [address] [id number] [place] [address] 29 Nov, 2013 [facility] [place] [facility] [address] [id number] [place] [address] Nov, [facility] [place] [facility] [address] [id number] [place] [address] Nov, [facility] [place] [facility] [address] [facility] [id number] [place] [address] Nov, [facility] [place] [facility] [address] [id number] [place] [address] Nov, [facility] [place] [facility] [address] [facility] [id number] [place] [address] Nov, [facility] [place] [facility] [address] [facility] [id number] [place] [address] Nov, [facility] [place] [facility] [address] [id number] [place] [address] Nov, [facility] [place] [facility] [address] [id number] [place] [address] Nov, [facility] [place] [facility] [address] [id number] [place] [address] Nov, [facility] [place] [facility] [address] [facility] [id number] [place] [address] Nov, [facility] [place] [facility] [address] [id number] [place] [address] Nov, [facility] [place] [facility] [address] [id number] [place] [address] Nov, [facility] [place] [facility] [address] [id number] [place] [address] Oct, [facility] [place] [facility] [address] [facility] [id number] [place] [address] Oct, [facility] [place] [facility] [address] [id number] [place] [address] Oct, [facility] [place] [facility] [address] [facility] [id number] [place] [address] Oct, [facility] [place] [facility] [address] [id number] [place] [address] Oct, [facility] [place] [facility] [address] [facility] [id number] [place] [address] Oct, [facility] [place] [facility] [address] [facility] [id number] [place] [address] Sep, [facility] [place] [facility] [address] [facility] [id number] [place] [address] Sep, [facility] [place] [facility] [address] [id number] [place] [address] Sep, [facility] [place] [facility] [address] [facility] [id number] [place] [address] Sep, [facility] [place] [facility] [address] [id number] [place] [address] Sep, [facility] [place] [facility] [address] [id number] [place] [address] Sep, [facility] [place] [facility] [address] [id number] [place] [address] Sep, [facility] [place] [facility] [address] [id number] [place] [address] Sep, [facility] [place] [facility] [address] [id number] [place] [address] Sep, [facility] [place] [facility] [address] [id number] [place] [address] Sep, [facility] [place] [facility] [address] [id number] [place] [address] Sep, [facility] [place] [facility] [address] [id number] [place] [address] Sep, [facility] [place] [facility] [address] [id number] [place] [address] August, [facility] [place] [facility] [address] [id number] [place] [address] August, [facility] [place] [facility] [address] [id number] [place] [address] Jul, [facility] [place] [facility] [address] [id number] [place] [address] Jul, [facility] [place] [facility] [address] [facility] [id number] [place] [address] Jul, [facility] [place] [facility] [address] [facility] [id number] [place] [address] 24 Jul, 2013 [facility] [place] [facility] [address] [id number] [place] [address] Jul, [facility] [place] [facility] [address] [id number] [place] [address] Jul, [facility] [address] [facility] [id number] [place] [address] Jul, [facility] [address] [id number] [place] [address] 16 Jul, 2013 [facility] [address] [id number] [place] [address] Jul, [facility] [address] [id number] [place] [address] Jul, [facility] [address] [id number] [place] [address] Jul, [facility] [address] [id number] [place] [address] Jun, [facility] [address] [id number] [place] [address] Jun, [facility] [address] [id number] [place] [address] Jun, [facility] [address] [id number] [place] [address] Jun, [facility] [address] [id number] [place] [address] Jun, [facility] [address] [id number] [place] [address] Jun, [facility] [address] [id number] [place] [address] Jun, [facility] [address] [id number] [place] [address] Jun, [facility] [address] [facility] [id number] [place] [address] May, [facility] [address] [id number] [place] [address] May, [facility] [address] [id number] [place] [address] May, [facility] [address] [id number] [place] [address] May, [facility] [address] [id number] [place] [address] May, [facility] [address] [id number] [place] [address] May, [facility] [address] [id number] [place] [address] May, [facility] [address] [id number] [place] [address] May, [facility] [address] [id number] [place] [address] May, [facility] [address] [id number] [place] [address] May, [facility] [address] [id number] [place] [address] May, [facility] [address] [id number] [place] [address] May, [facility] [address] [id number] [place] [address] May, [facility] [address] [id number] [place] [address] Apr, [facility] [address] [id number] [place] [address] Apr, [facility] [address] [id number] [place] [address] Apr, [facility] [address] [facility] [id number] [place] [address] Apr, [facility] [facility] [address] [facility] [id number] [place] [address] Apr, [facility] [address] [id number] [place] [address] Apr, [facility] [address] [id number] [place] [address] Apr, [facility] [address] [facility] [id number] [place] [address] Apr, [facility] [address] [id number] [place] [address] Apr, [facility] [address] [id number] [place] [address] Apr, [facility] [address] [id number] [place] [address] Apr, [facility] [address] [id number] [place] [address] Apr, [facility] [address] [id number] [place] [address] Apr, [facility] [address] [id number] [place] [address] Apr, [facility] [address] [id number] [place] [address] Apr, [facility] [address] [facility] [id number] [place] [address] Mar, [facility] [address] [facility] [id number] [place] [address] Mar, [facility] [address] [id number] [place] [address] Mar, [facility] [address] [id number] [place] [address] Mar, [facility] [address] [id number] [place] [address] 20 Mar, 2013 [facility] [address] [id number] [place] [address] 20 Mar, 2013 [facility] [address] [id number] [place] [address] 17 Mar, 2013 [facility] [address] [id number] [place] [address] 17 Mar, 2013 [facility] [address] [id number] [place] [address] Mar, [facility] [address] [id number] [place] [address] Mar, [facility] [address] [id number] [place] [address] Mar, [facility] [address] [id number] [place] [address] Mar, [facility] [address] [id number] [place] [address] Feb, [facility] [address] [id number] [place] [address] Feb, [facility] [id number] [place] [address] Feb, [facility] [address] [id number] [place] [address] Feb, [facility] [address] [id number] [place] [address] Feb, [facility] [address] [id number] [place] [address] Feb, [facility] [id number] [place] [address] Feb, [facility] [address] [id number] [place] [address] Feb, [facility] [address] [id number] [place] [address] Jan, [facility] [address] [id number] [place] [address] Jan, [facility] [address] [id number] [place] [address] Jan, [facility] [address] [id number] [place] [address] Jan, [facility] [address] [id number] [place] [address] Jan, [facility] [address] [facility] [id number] [place] [address] Jan, [facility] [address] [id number] [place] [address] Jan, [facility] [address] [id number] [place] [address] Dec, [facility] [address] [id number] [place] [address] Dec, [facility] [address] [id number] [place] [address] Dec, [facility] [address] [id number] [place] [address] Dec, [facility] [address] [id number] [place] [address] Dec, [facility] [address] [id number] [place] [address] Nov, [facility] [address] [id number] [place] [address] Nov, [facility] [address] [facility] [id number] [place] [address] Nov, [facility] [address] [id number] [place] [address] Nov, [facility] [address] [id number] [place] [address] Nov, [facility] [address] [id number] [place] [address] Nov, [facility] [address] [facility] [id number] [place] [address] Nov, [facility] [address] [facility] [id number] [place] [address] Oct, [facility] [address] [facility] [id number] [place] [address] Oct, [facility] [address] [facility] [id number] [place] [address] Oct, [facility] [address] [facility] [id number] [place] [address] Oct, [facility] [address] [id number] [place] [address] Oct, [facility] [address] [id number] [place] [address] Oct, [facility] [address] [id number] [place] [address] Oct, [facility] [address] [facility] [id number] [place] [address] Oct, [facility] [address] [id number] [place] [address] Sep, [facility] [address] [id number] [place] [address] Sep, [facility] [address] [id number] [place] [address] Sep, [facility] [address] [facility] [id number] [place] [address] Sep, [facility] [address] [facility] [id number] [place] [address] Sep, [facility] [address] [facility] [id number] [place] [address] Sep, [facility] [address] [id number] [place] [address] August, [facility] [address] [id number] [place] [address] August, [facility] [address] [id number] [place] [address] August, [facility] [address] [id number] [place] [address] August, [facility] [address] [id number] [place] [address] August, [facility] [address] [id number] [place] [address] Jul, [facility] [address] [id number] [place] [address] Jul, [facility] [address] [id number] [place] [address] Jul, [facility] [address] [id number] [place] [address] Jul, [facility] [address] [id number] [place] [address] Jul, [facility] [address] [id number] [place] [address] Jul, [facility] [address] [id number] [place] [address] 14 Jun, 2012 [facility] [address] [id number] [place] [address] Jun, [facility] [address] [id number] [place] [address] Jun, [facility] [address] [id number] [place] [address] Jun, [facility] [address] [id number] [place] [address] 05 Jun, 2012 [facility] [address] [id number] [place] [address] May, [facility] [address] [id number] [place] [address] 13 May, 2012 [facility] [address] [id number] [place] [address] May, [facility] [address] [id number] [place] [address] Apr, [facility] [address] [id number] [place] [address] Apr, [facility] [address] [id number] [place] [address] Mar, [facility] [address] [id number] [place] [address] Mar, [facility] [address] [id number] [place] [address] Mar, [facility] [address] [id number] [place] [address] Mar, [facility] [address] [id number] [place] [address] Mar, [facility] [address] [id number] [place] [address] Mar, [facility] [address] [id number] [place] [address] Feb, [facility] [address] [id number] [place] [address] Feb, [facility] [address] [id number] [place] [address] Feb, [facility] [address] [id number] [place] [address] Jan, [facility] [address] [id number] [place] [address] Jan, [facility] [address] [id number] [place] [address] Jan, [facility] [address] [id number] [place] [address] 24 Jan, 2012 [facility] [address] [id number] [place] [address] 24 Jan, 2012 [facility] [address] [facility] [id number] [place] [address] Jan, [facility] [address] [id number] [place] [address] 17 Jan, 2012 [facility] [address] [id number] [place] [address] 16 Jan, 2012 [facility] [address] [id number] [place] [address] Jan, [facility] [address] [id number] [place] [address] Dec, [facility] [address] [id number] [place] [address] Dec, [facility] [address] [id number] [place] [address] Dec, [facility] [address] [id number] [place] [address] Nov, [facility] [address] [id number] [place] [address] Nov, [facility] [address] [id number] [place] [address] Nov, [facility] [address] [id number] [place] [address] Oct, [facility] [address] [id number] [place] [address] Oct, [facility] [address] [id number] [place] [address] Sep, [facility] [address] [id number] [place] [address] Sep, [facility] [address] [id number] [place] [address] 18 Sep, 2011 [facility] [address] [id number] [place] [address] Sep, [facility] [address] [id number] [place] [address] Sep, [facility] [address] [id number] [place] [address] August, [facility] [address] [id number] [place] [address] August, [facility] [address] [id number] [place] [address] August, [facility] [address] [id number] [place] [address] August, [facility] [address] [id number] [place] [address] August, [facility] [address] [id number] [place] [address] August, [facility] [address] [id number] [place] [address] August, [facility] [address] [id number] [place] [address] August, [facility] [address] [id number] [place] [address] August, [facility] [address] [id number] [place] [address] Jul, [facility] [address] [id number] [place] [address] Jul, [facility] [address] [id number] [place] [address] Jul, [facility] [address] [id number] [place] [address] 04 Jul, 2011 [facility] [address] [id number] [place] [address] 27 Jun, 2011 [facility] [address] [id number] [place] [address] Jun, [facility] [address] [id number] [place] [address] Jun, [facility] [address] [id number] [place] [address] 27 May, 2011 [facility] [address] [id number] [place] [address] 24 May, 2011 [facility] [address] [facility] [id number] [place] [address] 20 May, 2011 [facility] [address] [id number] [place] [address] 16 May, 2011 [facility] [address] [facility] [id number] [place] [address] 15 May, 2011 [facility] [address] [id number] [place] [address] 14 May, 2011 [facility] [address] [id number] [place] [address] 10 May, 2011 [facility] [address] [id number] [place] [address] 09 May, 2011 [facility] [address] [id number] [place] [address] 02 May, 2011 [facility] [address] [id number] [place] [address] 30 Apr, 2011 [facility] [address] [id number] [place] [address] Apr, [facility] [address] [id number] [place] [address] Apr, [facility] [address] [id number] [place] [address] 17 Apr, 2011 [facility] [address] [id number] [place] [address] 16 Apr, 2011 [facility] [address] [id number] [place] [address] 13 Apr, 2011 [facility] [address] [id number] [place] [address] 09 Apr, 2011 [facility] [id number] [place] [address] Apr, [facility] [id number] [place] [address] Apr, [facility] [id number] [place] [address] Apr, [facility] [address] [address] Apr, [facility] [address] [address] Mar, [facility] [address] [address] Mar, [facility] [address] [address] Mar, [facility] [address] [address] Mar, [facility] [address] [address] Feb, [facility] [id number] [place] [address] Feb, [facility] [address] [address] Jan, [facility] [address] [address] Nov, IMMUNIZATIONS No Known Immunizations SOCIAL HISTORY [...] laser treatment for glaucoma Hospitalization History ED [place]- Right side and back pain related to fall, hurts to breathe (ED at 7 pm) 06/07/2017 Hospitalization History [facility] [place]- Anxiety ( went to ED at 1200) 06/07/2017 Hospitalization History COPD exacerbation - [place] 2017 Hospitalization History Blood clot, port placement - [place] [facility] 09/2017
--- OUTSIDE RECORDS SUMMARY | 2019-09-01 14:28 | XMS REPORT ---
Author Author Sophia SEGURA Organization [facility] Address [address] [place] [address] Care Team Providers Care Coal Handler Name Role Phone HERMINIA SEGURA Unavailable PROBLEMS Type Condition ICD9-CM Code FUG98-PV Code Onset Dates Condition S tatus SNOMED Code Problem Proteinuria R80.9 Active 56871205 Problem Essential hypertension I10 Active 74162884 Problem Anxiety F41.9 Active 73083025 Problem Type 2 diabetes mellitus without complication E11. 9 Active 13301345 Problem Hyperlipidemia, unspecified hyperlipidemia E78.5 Active 36160909 Problem Major depressive disorder, recurrent episode, un specified severity F33.9 Active 03752699 Problem Sciatica, unspecified laterality M54.30 Active 33648359 Problem Acute cystitis with hematuria N30.01 Active 48467088 Problem Chronic pain syndrome G89.4 Active 454433543 Problem Exacerbation of systemic lupus M32.9 Active 08814523 Problem Generalized abdominal pain R10.84 Act sree 714838256 Problem Carpal tunnel syndrome, right upper limb G56.01 Active 32109369 Problem History of small bowel obstruction Z87.19 Active 788273835 Problem History of pulmonary embolism Z86.711 Active 536122982 Problem Presence of IVC filter Z95.828 Active 265085463 Problem Port catheter in place Z95.828 Active 063940810 Problem Gastroesophageal reflux disease, esophagitis pre sence not specified K21.9 Active 582441786 Problem Chronic pancreatitis, unspecified pancreatitis type K86.1 Active 994784827 Problem Hypothyroidism, unspecified type E03.9 Active 37022375 Problem Vitamin D deficiency E55.9 Active 93764504 Problem Nausea R11.0 Active 578210891 Problem Pneumonia due to infectious organism, unspecified laterality, unspecified part of lung J18.9 Active 312 098395 Problem Gastroesophageal reflux disease without esophagitis K21.9 Active 121486919 Problem Violation of controlled substance agreement Z91.14 Active 538272810 Problem Obstructive sleep apnea G47.33 Active 37628413 Problem Hypertension, benign I10 Active 41222723 Problem Venous insufficiency I87.2 Active 48609900 Problem Chronic obstructive pulmonary disease, unspecified COPD ty pe J44.9 Active 87381018 Problem Tobacco abuse counseling Z71.6 Activ e 27236470 Problem 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 A ctive 875078972 Problem Opiate dependence, continuous F11.20 Active 976872255 Problem Cannabis abuse with physiological dependence F12.1 0 Active 88080353 ALLERGIES No Information ENCOUNTERS Encounter Location Date Diagnosis [facility] [address] [address] May, [place] [address] [address] Apr, Tobacco abuse Z72.0 ; Hypertension, stefan gn I10 and Tobacco abuse counseling Z71.6 [place] [address] [address] Sep, [place] [address] [address] Sep, [facility] [address] [address] Sep, Essential hypertension I10 [place] [address] [address] Sep, [facility] [address] [address] Sep, [facility] [address] [address] Sep, Neck mass R22.1 [facility] [address] [address] August, Neck mass R22.1 [facility] [address] [facility] [id number] [address] [place] [address] Feb, Left foot pain M79.672 [facility] [address] [facility] [place] [address] Jun, Chronic pain syndrome G89.4 [facility] [place] [facility] [address] [id number] [id number] May, [facility] [address] [place] [id number] [place] [address] May, [facility] [address] [place] [id number] [place] [address] May, Chronic pain syndrome G89.4 [facility] [address] [place] [id number] [place] [address] 13 May, 2017 [facility] [address] [facility] [id number] [address] [place] [address] 10 May, 2017 Encounter for immunization Z 23 and Laceration of left index finger without foreign body without damage to nail, initial encounter S61.211A [place] [address] [address] 09 May, 2017 Chronic pain syndrome G89.4 [facility] [address] [place] [id number] [place] [address] May, [facility] [address] [address] Apr, Cannabis abuse with physiological depend ence F12.10 ; Violation of controlled substance agreement Z91.14 and Opiate dependence, continuous F11.20 [facility] [address] [place] [id number] [place] [address] Apr, Type 2 diabetes mellitus without complic ation E11.9 [facility] [address] [place] [id number] [place] [address] Apr, [facility] [address] [address] Apr, Chronic pain syndrome G89.4 [facility] [address] [place] [id number] [place] [address] Apr, Viral syndrome B34.9 [facility] [address] [address] Apr, [facility] [address] [address] Mar, Chronic pain syndrome G89.4 [facility] [address] [address] Mar, [facility] [address] [address] Mar, [facility] [address] [address] Feb, Essential hypertension I10 ; Chronic nataly n syndrome G89.4 ; Hyperlipidemia, unspecified hyperlipidemia E78.5 ; 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 and Encounter for immunization Z23 [place] [address] [address] Feb, Chronic pain syndrome G89.4 [facility] [address] [address] Jan, Chronic pain syndrome G89.4 [facility] [address] [address] Jan, [facility] [address] [address] Jan, Bronchitis J40 ; Port catheter in place Z95.828 and Chronic pain syndrome G89.4 [facility] [address] [id number] [place] [id number] Jan, [facility] [address] [address] 22 Dec, 2016 Chronic pain syndrome G89.4 [facility] [address] [address] 18 Dec, 2016 Chronic pain syndrome G89.4 [facility] [address] [address] 08 Dec, 2016 [facility] [address] [address] Nov, [facility] [address] [address] Nov, Chronic pain syndrome G89.4 [facility] [address] [place] [id number] [place] [address] Oct, Chronic pain syndrome G89.4 [facility] [address] [place] [id number] [place] [address] Oct, [facility] [address] [address] Sep, Chronic pain syndrome G89.4 [facility] [address] [address] Sep, Exacerbation of systemic lupus M32.9 [facility] [address] [address] Sep, [facility] [address] [address] Sep, [facility] [address] [address] Sep, Nausea R11.0 [facility] [address] [address] August, Chronic pain syndrome G89.4 [facility] [address] [address] August, [facility] [address] [address] August, Chronic pain syndrome G89.4 [facility] [address] [address] Jul, Pneumonia due to infectious organism, un specified laterality, unspecified part of lung J18.9 and Tobacco abuse counseling Z71.6 [facility] [address] [place] [id number] [place] [address] Jul, Chronic pain syndrome G89.4 [facility] [address] [place] [id number] [place] [address] Jun, Essential hypertension I10 [facility] [address] [address] Jun, Pneumonia due to infectious organism, un specified laterality, unspecified part of lung J18.9 [place] [address] [address] Jun, Chronic pain syndrome G89.4 [place] [address] [address] 10 May, 2016 Essential hypertension I10 ; [...] reflux disease without esophagitis K21.9 [place] [address] [address] Apr, [address] [address] Apr, Pneumonia due to infectious organism, un specified laterality, unspecified part of lung J18.9 and Nausea R11.0 [place] [address] [address] Apr, Essential hypertension I10 ; Chronic nataly n syndrome G89.4 ; Type 2 diabetes mellitus without complication E11.9 ; Hyperlipidemia, unspecified hyperlipidemia E78.5 ; Major depressive disorder, recurrent episode, unspecified severity F33.9 ; Sciatica, unspecified laterality M54.30 ; Chronic obstructive pulmonary disease, unspecified COPD type J44.9 ; Pneumonia due to infectious organism, unspecified laterality, unspecified part of lung J18.9 and Nausea R11.0 [facility] [address] [facility] [id number] [address] [place] [address] Mar, [address] [address] Mar, [place] [id number] [address] Mar, [place] [address] [address] Mar, Anxiety F41.9 and Major depressive disor rita, recurrent episode, unspecified severity F33.9 [place] [address] [address] Mar, [place] [address] [address] Mar, [place] [address] [address] Mar, Generalized abdominal pain R10.84 ; Acut e cystitis with hematuria N30.01 and Essential hypertension I10 [facility] [place] [id number] [place] [address] Mar, Sore throat J02.9 and Exacer bation of systemic lupus M32.9 [place] [address] [address] Feb, Type 2 diabetes mellitus without complic [...] reflux disease, esophagitis presence not specified K21.9 [place] [address] [address] Feb, [place] [address] [address] Jan, [facility] [place] [id number] [place] [address] Jan, Right arm pain M79.601 [address] of right wrist, initial encounter S66.911A [place] [address] [address] Jan, [facility] [address] [facility] [id number] [address] [place] [address] 30 Dec, 2015 Generalized abdominal pain R 10.84 [place] [address] [address] 23 Dec, 2015 Adenopathy R59.1 [place] [address] [address] 19 Dec, 2015 Bronchitis J40 [place] [address] [address] 14 Dec, 2015 [place] [address] [address] Dec, Essential hypertension I10 [place] [address] [address] Nov, [place] [address] [address] Nov, [place] [address] [address] Nov, Essential hypertension I10 ; Hyperlipide martha, [...] Type 2 diabetes mellitus without complication E11.9 [place] [address] [address] Nov, [facility] [address] [address] Oct, Type 2 diabetes mellitus without complic ation E11.9 ; Essential hypertension I10 ; Other viral warts B07.8 ; Pickens or callus L84 and Hyperlipidemia, unspecified hyperlipidemia E78.5 [facility] [address] [address] Sep, [facility] [address] [address] Sep, [facility] [address] [address] Jun, [facility] [address] [address] Jun, [facility] [address] [address] May, [facility] [address] [address] Apr, [facility] [address] [address] Feb, [facility] [address] [address] Feb, COPD exacerbation J44.1 and Acute upper respiratory infection J06.9 [facility] [address] [address] Feb, [facility] [address] [address] Feb, [facility] [address] [address] Feb, [facility] [address] [address] Feb, [facility] [address] [address] Jan, Left hip pain M25.552 [facility] [address] [id number] [place] [address] Jan, Essential hypertension I10 ; Chronic nataly n syndrome G89.4 ; Type 2 diabetes mellitus without complication E11.9 and Hyperlipidemia, unspecified hyperlipidemia E78.5 [facility] [address] [id number] [place] [address] 28 Jul, 2014 [facility] [address] [place] [id number] [place] [address] 14 Jul, 2014 [facility] [address] [id number] [place] [address] Jul, [facility] [address] [place] [id number] [place] [address] 25 Jun, 2014 [facility] [address] [place] [id number] [place] [address] Jun, [facility] [address] [place] [id number] [place] [address] Jun, [facility] [address] [place] [id number] [place] [address] Jun, [facility] [address] [place] [id number] [place] [address] Jun, [facility] [address] [place] [id number] [place] [address] Jun, [facility] [address] [place] [id number] [place] [address] Jun, [facility] [address] [place] [id number] [place] [address] Jun, [facility] [address] [place] [id number] [place] [address] 18 Jun, 2014 [facility] [address] [place] [id number] [place] [address] 18 Jun, 2014 [facility] [address] [id number] [place] [address] Jun, [facility] [address] [place] [id number] [place] [address] Jun, [facility] [place] [facility] [address] [id number] [place] [address] Apr, [facility] [place] [facility] [address] [id number] [place] [address] Apr, [facility] [place] [facility] [address] [id number] [place] [address] Apr, [facility] [place] [facility] [address] [id number] [place] [address] Apr, [facility] [place] [facility] [address] [id number] [place] [address] Apr, [facility] [place] [facility] [address] [id number] [place] [address] Apr, [facility] [place] [facility] [address] [id number] [place] [address] Apr, [facility] [place] [facility] [address] [id number] [place] [address] Apr, [facility] [place] [facility] [address] [id number] [place] [address] Mar, [facility] [place] [facility] [address] [id number] [place] [address] Mar, [facility] [place] [facility] [address] [id number] [place] [address] Mar, [facility] [place] [facility] [address] [id number] [place] [address] Mar, [facility] [place] [facility] [address] [id number] [place] [address] Mar, [facility] [place] [facility] [address] [id number] [place] [address] 18 Mar, 2014 [facility] [place] [facility] [address] [id number] [place] [address] 15 Mar, 2014 [facility] [place] [facility] [address] [id number] [place] [address] Mar, [facility] [place] [facility] [address] [id number] [place] [address] Mar, [facility] [place] [facility] [address] [id number] [place] [address] Mar, [facility] [place] [facility] [address] [id number] [place] [address] Mar, [facility] [place] [facility] [address] [id number] [place] [address] Mar, [facility] [place] [facility] [address] [id number] [place] [address] Mar, [facility] [place] [facility] [address] [id number] [place] [address] Feb, [facility] [place] [facility] [address] [id number] [place] [address] Feb, [facility] [place] [facility] [address] [id number] [place] [address] Feb, [facility] [place] [facility] [address] [id number] [place] [address] Feb, [facility] [place] [facility] [address] [id number] [place] [address] Feb, [facility] [place] [facility] [address] [id number] [place] [address] Feb, [facility] [place] [facility] [address] [id number] [place] [address] Feb, [facility] [place] [facility] [address] [id number] [place] [address] Feb, [facility] [place] [facility] [address] [id number] [place] [address] Jan, [facility] [place] [facility] [address] [place] [id number] [place] [address] Jan, [facility] [place] [facility] [address] [id number] [place] [address] Jan, [facility] [place] [facility] [address] [place] [id number] [place] [address] Jan, [facility] [place] [facility] [address] [id number] [place] [address] Jan, [facility] [place] [facility] [address] [id number] [place] [address] Jan, [facility] [place] [facility] [address] [id number] [place] [address] Jan, 2013 [facility] [place] [facility] [address] [id number] [place] [address] Jan, [facility] [place] [facility] [address] [id number] [place] [address] Jan, [facility] [place] [facility] [address] [id number] [place] [address] 30 Dec, 2013 [facility] [place] [facility] [address] [id number] [place] [address] 30 Dec, 2013 [facility] [place] [facility] [address] [id number] [place] [address] 26 Dec, 2013 [facility] [place] [facility] [address] [id number] [place] [address] 26 Dec, 2013 [facility] [place] [facility] [address] [id number] [place] [address] 16 Dec, 2013 [facility] [place] [facility] [address] [id number] [place] [address] 16 Sep, 2013 [facility] [place] [facility] [address] [id number] [place] [address] 08 Sep, 2013 [facility] [place] [facility] [address] [id number] [place] [address] 08 Sep, 2013 [facility] [place] [facility] [address] [id number] [place] [address] 04 Sep, 2013 [facility] [place] [facility] [address] [id number] [place] [address] 04 Dec, 2013 [facility] [place] [facility] [address] [id number] [place] [address] 29 Nov, 2013 [facility] [place] [facility] [address] [id number] [facility] [place] [address] Nov, [facility] [place] [facility] [address] [id number] [facility] [place] [address] Nov, [facility] [place] [facility] [address] [facility] [id number] [place] [address] Nov, [facility] [place] [facility] [address] [id number] [facility] [place] [address] Nov, [facility] [place] [facility] [address] [facility] [id number] [place] [address] Nov, [facility] [place] [facility] [address] [facility] [id number] [place] [address] Nov, [facility] [place] [facility] [address] [id number] [facility] [place] [address] Nov, [facility] [place] [facility] [address] [id number] [facility] [place] [address] Nov, [facility] [place] [facility] [address] [id number] [facility] [place] [address] Nov, [facility] [place] [facility] [address] [id number] [facility] [place] [address] Nov, [facility] [place] [facility] [address] [id number] [facility] [place] [address] Nov, [facility] [place] [facility] [address] [id number] [place] [address] Nov, [facility] [place] [facility] [address] [id number] [place] [address] Oct, [facility] [place] [facility] [address] [facility] [id number] [facility] [place] [address] Oct, [facility] [place] [facility] [address] [id number] [place] [address] Oct, [facility] [place] [facility] [address] [id number] [place] [address] Oct, [facility] [place] [facility] [address] [id number] [place] [address] Oct, [facility] [place] [facility] [address] [facility] [id number] [place] [address] Oct, [facility] [place] [facility] [address] [facility] [id number] [place] [address] Sep, [facility] [place] [facility] [address] [facility] [id number] [place] [address] Sep, [facility] [place] [facility] [address] [id number] [place] [address] Sep, [facility] [place] [facility] [address] [facility] [id number] [place] [address] Sep, [facility] [place] [facility] [address] [facility] [id number] [place] [address] Sep, [facility] [place] [facility] [address] [id number] [place] [address] Sep, [facility] [place] [facility] [address] [id number] [place] [address] Sep, [facility] [place] [facility] [address] [id number] [place] [address] Sep, [facility] [place] [facility] [address] [id number] [place] [address] Sep, [facility] [place] [facility] [address] [id number] [place] [address] Sep, [facility] [place] [facility] [address] [id number] [place] [address] Sep, [facility] [place] [facility] [address] [id number] [place] [address] Sep, [facility] [place] [facility] [address] [facility] [id number] [place] [address] August, [facility] [place] [facility] [address] [id number] [place] [address] August, [facility] [place] [facility] [address] [id number] [place] [address] Jul, [facility] [place] [facility] [address] [id number] [place] [address] Jul, [facility] [place] [facility] [address] [facility] [id number] [place] [address] Jul, [facility] [place] [facility] [address] [id number] [place] [address] 24 Jul, 2013 [facility] [place] [facility] [address] [id number] [place] [address] Jul, [facility] [place] [facility] [address] [id number] [place] [address] Jul, [facility] [place] [facility] [address] [facility] [id number] [place] [address] Jul, [facility] [place] [facility] [address] [id number] [place] [address] 16 Jul, 2013 [facility] [place] [facility] [address] [id number] [place] [address] Jul, [facility] [address] [id number] [place] [address] Jul, [facility] [address] [id number] [place] [address] Jul, [facility] [address] [id number] [place] [address] Jun, [facility] [address] [id number] [place] [address] Jun, [facility] [address] [id number] [place] [address] Jun, [facility] [address] [id number] [place] [address] Jun, [facility] [address] [id number] [place] [address] Jun, [facility] [address] [id number] [place] [address] Jun, [facility] [address] [id number] [place] [address] Jun, [facility] [address] [id number] [place] [address] Jun, [facility] [address] [facility] [id number] [place] [address] May, [facility] [address] [id number] [place] [address] May, [facility] [address] [id number] [place] [address] May, [facility] [address] [id number] [place] [address] May, [facility] [address] [id number] [place] [address] May, [facility] [address] [id number] [place] [address] May, [facility] [address] [id number] [place] [address] May, [facility] [address] [id number] [place] [address] May, [facility] [address] [id number] [place] [address] May, [facility] [address] [id number] [place] [address] May, [facility] [address] [id number] [place] [address] May, [facility] [address] [id number] [place] [address] May, [facility] [address] [id number] [place] [address] May, [facility] [address] [id number] [place] [address] Apr, [facility] [address] [id number] [place] [address] Apr, [facility] [address] [id number] [place] [address] Apr, [facility] [address] [id number] [place] [address] Apr, [facility] [address] [id number] [place] [address] Apr, [facility] [address] [id number] [place] [address] Apr, [facility] [address] [id number] [place] [address] Apr, [facility] [address] [facility] [id number] [place] [address] Apr, [facility] [id number] [place] [address] Apr, [facility] [id number] [place] [address] Apr, [facility] [id number] [place] [address] Apr, [facility] [id number] [place] [address] Apr, [facility] [id number] [place] [address] Apr, [facility] [id number] [place] [address] Apr, [facility] [id number] [place] [address] Apr, [facility] [id number] [place] [address] Mar, [facility] [id number] [place] [address] Mar, [facility] [id number] [place] [address] Mar, [facility] [id number] [place] [address] Mar, [facility] [id number] [place] [address] 20 Mar, 2013 [facility] [id number] [place] [address] Mar, [facility] [id number] [place] [address] Mar, [facility] [id number] [place] [address] 17 Mar, 2013 [facility] [id number] [place] [address] Mar, [facility] [id number] [place] [address] Mar, [facility] [id number] [place] [address] Mar, [facility] [id number] [place] [address] Mar, [facility] [id number] [place] [address] Feb, [facility] [id number] [place] [address] Feb, [facility] [id number] [place] [address] Feb, [facility] [id number] [place] [address] Feb, [facility] [id number] [place] [address] Feb, [facility] [id number] [place] [address] Feb, [facility] [id number] [place] [address] Feb, [facility] [id number] [place] [address] Feb, [facility] [id number] [place] [address] Jan, [facility] [address] [id number] [place] [address] Jan, [facility] [address] [facility] [id number] [place] [address] Jan, [facility] [address] [facility] [id number] [place] [address] Jan, [facility] [id number] [place] [address] Jan, [facility] [address] [facility] [id number] [place] [address] Jan, [facility] [address] [facility] [id number] [place] [address] Jan, [facility] [id number] [place] [address] Dec, [facility] [id number] [place] [address] Dec, [facility] [id number] [place] [address] Dec, [facility] [id number] [place] [address] Dec, [facility] [id number] [place] [address] Dec, [facility] [id number] [place] [address] Nov, [facility] [id number] [place] [address] Nov, [facility] [address] [facility] [facility] [id number] [place] [address] Nov, [facility] [id number] [place] [address] Nov, [facility] [id number] [place] [address] Nov, [facility] [id number] [place] [address] Nov, [facility] [address] [id number] [place] [address] Nov, [facility] [address] [facility] [facility] [id number] [facility] [place] [address] Oct, [facility] [id number] [place] [address] Oct, [facility] [id number] [facility] [place] [address] Oct, [facility] [address] [facility] [id number] [facility] [place] [address] Oct, [facility] [id number] [place] [address] Oct, [facility] [id number] [place] [address] Oct, [facility] [id number] [place] [address] Oct, [facility] [id number] [place] [address] Oct, [facility] [id number] [place] [address] Sep, [facility] [id number] [place] [address] Sep, [facility] [id number] [place] [address] Sep, [facility] [id number] [place] [address] Sep, [facility] [id number] [place] [address] Sep, [facility] [id number] [place] [address] Sep, [facility] [id number] [place] [address] August, [facility] [id number] [place] [address] August, [facility] [id number] [facility] [place] [address] August, [facility] [id number] [place] [address] August, [facility] [id number] [place] [address] August, [facility] [id number] [place] [address] Jul, [facility] [id number] [place] [address] Jul, [facility] [id number] [place] [address] Jul, [facility] [id number] [place] [address] Jul, [facility] [id number] [place] [address] Jul, [facility] [id number] [place] [address] Jul, [facility] [id number] [place] [address] Jun, [facility] [id number] [place] [address] Jun, [facility] [id number] [place] [address] Jun, [facility] [id number] [place] [address] Jun, [facility] [id number] [place] [address] 05 Jun, 2012 [facility] [id number] [place] [address] May, [facility] [id number] [place] [address] May, [facility] [id number] [place] [address] May, [facility] [id number] [place] [address] Apr, [facility] [id number] [place] [address] Apr, [facility] [id number] [place] [address] Mar, [facility] [id number] [place] [address] Mar, [facility] [id number] [place] [address] Mar, [facility] [id number] [place] [address] Mar, [facility] [id number] [place] [address] Mar, [facility] [id number] [place] [address] Mar, [facility] [id number] [place] [address] Feb, [facility] [id number] [place] [address] Feb, [facility] [id number] [place] [address] Feb, [facility] [id number] [place] [address] Jan, [facility] [id number] [place] [address] Jan, [facility] [id number] [place] [address] Jan, [facility] [id number] [place] [address] Jan, [facility] [id number] [place] [address] Jan, 2012 [facility] [address] [facility] [id number] [place] [address] Jan, [facility] [address] [facility] [id number] [place] [address] Jan, [facility] [id number] [place] [address] 16 Jan, 2012 [facility] [id number] [place] [address] Jan, [facility] [address] [facility] [id number] [place] [address] 18 Dec, 2011 [facility] [id number] [place] [address] Dec, [facility] [id number] [place] [address] Dec, [facility] [id number] [place] [address] Nov, [facility] [id number] [place] [address] Nov, [facility] [id number] [place] [address] Nov, [facility] [id number] [place] [address] Oct, [facility] [id number] [place] [address] Oct, [facility] [id number] [place] [address] Sep, [facility] [address] [facility] [id number] [place] [address] Sep, [facility] [id number] [place] [address] 18 Sep, 2011 [facility] [id number] [place] [address] Sep, [facility] [id number] [place] [address] Sep, [facility] [address] [id number] [place] [address] August, [facility] [id number] [place] [address] August, [facility] [id number] [place] [address] August, [facility] [id number] [place] [address] August, [facility] [id number] [place] [address] August, [facility] [id number] [place] [address] August, [facility] [id number] [place] [address] August, [facility] [id number] [place] [address] August, [facility] [id number] [place] [address] August, [facility] [id number] [place] [address] Jul, [facility] [id number] [place] [address] Jul, [facility] [id number] [place] [address] Jul, [facility] [id number] [place] [address] 04 Jul, 2011 [facility] [id number] [place] [address] 27 Jun, 2011 [facility] [id number] [place] [address] Jun, [facility] [id number] [place] [address] Jun, [facility] [address] [facility] [id number] [facility] [place] [address] May, [facility] [id number] [place] [address] 24 May, 2011 [facility] [id number] [facility] [place] [address] 20 May, 2011 [facility] [id number] [place] [address] 16 May, 2011 [facility] [id number] [facility] [place] [address] 15 May, 2011 [facility] [id number] [place] [address] 14 May, 2011 [facility] [id number] [place] [address] 10 May, 2011 [facility] [id number] [place] [address] 09 May, 2011 [facility] [id number] [place] [address] 02 May, 2011 [facility] [id number] [place] [address] Apr, [facility] [id number] [place] [address] Apr, [facility] [id number] [place] [address] Apr, [facility] [id number] [place] [address] 17 Apr, 2011 [facility] [id number] [place] [address] 16 Apr, 2011 [facility] [id number] [place] [address] Apr, [facility] [id number] [place] [address] Apr, [facility] [id number] [place] [address] Apr, [facility] [address] [address] Apr, [facility] [id number] [place] [address] Apr, [facility] [address] [address] Apr, [facility] [address] [address] Mar, [facility] [address] [address] Mar, [facility] [address] [address] Mar, [facility] [address] [address] Mar, [facility] [address] [address] Feb, [facility] [address] [address] Feb, [facility] [address] [address] Jan, [facility] [address] [address] Nov, IMMUNIZATIONS No Known Immunizations SOCIAL HISTORY [...] laser treatment for glaucoma Hospitalization History [facility]- Right side and back pain related to fall, hurts to breathe (ED at 7 pm) 06/07/2017 Hospitalization History [facility] [place]- Anxiety ( went to ED at 1200) 06/07/2017 Hospitalization History COPD exacerbation - [facility] 2017 Hospitalization History Blood clot, port placement - [facility] 09/2017
--- OUTSIDE RECORDS SUMMARY | 2019-09-01 14:29 | XMS REPORT ---
Author Author RADHA Sophianaren OLIVA [facility] Address [address] [place] [address] Care Team Providers Care Lubricating Specialist Name Role Phone RADHAGASPER MCPHERSONY Unavailable PROBLEMS Type Condition ICD9-CM Code CXO91-PT Code Onset Dates Condition S tatus SNOMED Code Problem Proteinuria R80.9 Active 12546528 Problem Essential hypertension I10 Active 73250254 Problem Anxiety F41.9 Active 02223917 Problem Type 2 diabetes mellitus without complication E11. 9 Active 89846470 Problem Hyperlipidemia, unspecified hyperlipidemia E78.5 Active 65560411 Problem Major depressive disorder, recurrent episode, un specified severity F33.9 Active 44303617 Problem Sciatica, unspecified laterality M54.30 Active 88182179 Problem Acute cystitis with hematuria N30.01 Active 96502922 Problem Chronic pain syndrome G89.4 Active 994224161 Problem Exacerbation of systemic lupus M32.9 Active 24389856 Problem Generalized abdominal pain R10.84 Act sree 340007919 Problem Carpal tunnel syndrome, right upper limb G56.01 Active 90765478 Problem History of small bowel obstruction Z87.19 Active 019685653 Problem History of pulmonary embolism Z86.711 Active 909374391 Problem Presence of IVC filter Z95.828 Active 521156651 Problem Port catheter in place Z95.828 Active 870083237 Problem Gastroesophageal reflux disease, esophagitis pre sence not specified K21.9 Active 354438581 Problem Chronic pancreatitis, unspecified pancreatitis type K86.1 Active 176158129 Problem Hypothyroidism, unspecified type E03.9 Active 60987897 Problem Vitamin D deficiency E55.9 Active 65928952 Problem Nausea R11.0 Active 422222748 Problem Pneumonia due to infectious organism, unspecified laterality, unspecified part of lung J18.9 Active 312 868694 Problem Gastroesophageal reflux disease without esophagitis K21.9 Active 329140790 Problem Violation of controlled substance agreement Z91.14 Active 361970478 Problem Obstructive sleep apnea G47.33 Active 11467974 Problem Hypertension, benign I10 Active 39698169 Problem Venous insufficiency I87.2 Active 95761756 Problem Chronic obstructive pulmonary disease, unspecified COPD ty pe J44.9 Active 08749534 Problem Tobacco abuse counseling Z71.6 Activ e 08127140 Problem 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 A ctive 512541104 Problem Opiate dependence, continuous F11.20 Active 378474168 Problem Cannabis abuse with physiological dependence F12.1 0 Active 43114301 ALLERGIES No Information ENCOUNTERS Encounter Location Date Diagnosis [facility] [address] [address] May, [place] [address] [address] Apr, Tobacco abuse Z72.0 ; Hypertension, stefan gn I10 and Tobacco abuse counseling Z71.6 [place] [address] [address] Sep, [place] [address] [address] Sep, [facility] [address] [address] Sep, Essential hypertension I10 [place] [address] [address] Sep, [facility] [address] [address] Sep, [place] [address] [address] Sep, Neck mass R22.1 [facility] [address] [address] August, Neck mass R22.1 [facility] [address] [facility] [id number] [address] [place] [address] Feb, Left foot pain M79.672 [facility] [address] [address] Jun, Chronic pain syndrome G89.4 [facility] [address] [id number] [place] [id number] May, [facility] [address] [place] [id number] [place] [address] May, [facility] [address] [place] [id number] [place] [address] May, Chronic pain syndrome G89.4 [facility] [address] [place] [id number] [place] [address] May, [facility] [address] [facility] [id number] [address] [place] [address] 10 May, 2017 Encounter for immunization Z 23 and Laceration of left index finger without foreign body without damage to nail, initial encounter S61.211A [place] [address] [address] 09 May, 2017 Chronic pain syndrome G89.4 [facility] [address] [place] [id number] [place] [address] May, [place] [address] [address] Apr, Cannabis abuse with physiological depend ence F12.10 ; Violation of controlled substance agreement Z91.14 and Opiate dependence, continuous F11.20 [place] [address] [place] [id number] [place] [address] Apr, Type 2 diabetes mellitus without complic ation E11.9 [facility] [address] [place] [id number] [place] [address] Apr, [place] [address] [address] Apr, Chronic pain syndrome G89.4 [facility] [address] [place] [id number] [place] [address] Apr, Viral syndrome B34.9 [facility] [address] [address] Apr, [facility] [address] [address] Mar, Chronic pain syndrome G89.4 [facility] [address] [address] Mar, [facility] [address] [address] Mar, [facility] [address] [address] Feb, Essential hypertension I10 ; Chronic nataly n syndrome G89.4 ; Hyperlipidemia, unspecified hyperlipidemia E78.5 ; 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 and Encounter for immunization Z23 [place] [address] [address] Feb, Chronic pain syndrome G89.4 [facility] [address] [address] Jan, Chronic pain syndrome G89.4 [facility] [address] [address] Jan, [facility] [address] [address] Jan, Bronchitis J40 ; Port catheter in place Z95.828 and Chronic pain syndrome G89.4 [facility] [address] [id number] [place] [id number] Jan, [facility] [address] [address] 22 Dec, 2016 Chronic pain syndrome G89.4 [facility] [address] [address] 18 Dec, 2016 Chronic pain syndrome G89.4 [facility] [address] [address] 08 Dec, 2016 [facility] [address] [address] Nov, [facility] [address] [address] Nov, Chronic pain syndrome G89.4 [facility] [address] [address] Oct, Chronic pain syndrome G89.4 [facility] [address] [address] Oct, [facility] [address] [address] Sep, Chronic pain syndrome G89.4 [facility] [address] [address] Sep, Exacerbation of systemic lupus M32.9 [facility] [address] [address] Sep, [facility] [address] [address] Sep, [facility] [address] [address] Sep, Nausea R11.0 [facility] [address] [address] August, Chronic pain syndrome G89.4 [facility] [address] [address] August, [facility] [address] [address] August, Chronic pain syndrome G89.4 [facility] [address] [address] Jul, Pneumonia due to infectious organism, un specified laterality, unspecified part of lung J18.9 and Tobacco abuse counseling Z71.6 [facility] [address] [address] Jul, Chronic pain syndrome G89.4 [facility] [address] [address] Jun, Essential hypertension I10 [facility] [address] [address] Jun, Pneumonia due to infectious organism, un specified laterality, unspecified part of lung J18.9 [place] [address] [address] Jun, Chronic pain syndrome G89.4 [place] [address] [address] May, Essential hypertension I10 ; Type 2 [...] and Gastroesophageal reflux disease without esophagitis K21.9 [place] [address] [address] Apr, [address] [address] Apr, Pneumonia due to infectious organism, un specified laterality, unspecified part of lung J18.9 and Nausea R11.[address] [address] Apr, Essential hypertension I10 ; Chronic nataly n syndrome G89.4 ; Type 2 diabetes mellitus without complication E11.9 ; Hyperlipidemia, unspecified hyperlipidemia E78.5 ; Major depressive disorder, recurrent episode, unspecified severity F33.9 ; Sciatica, unspecified laterality M54.30 ; Chronic obstructive pulmonary disease, unspecified COPD type J44.9 ; Pneumonia due to infectious organism, unspecified laterality, unspecified part of lung J18.9 and Nausea R11.0 [facility] [address] [facility] [id number] [address] [place] [address] Mar, [address] [address] Mar, [place] [address] [address] Mar, [place] [address] [address] Mar, Anxiety F41.9 and Major depressive disor rita, recurrent episode, unspecified severity F33.9 [place] [address] [address] Mar, [place] [address] [address] Mar, [place] [address] [address] Mar, Generalized abdominal pain R10.84 ; Acut e cystitis with hematuria N30.01 and Essential hypertension I10 [facility] [address] [place] [address] Mar, Sore throat J02.9 and Exacer bation of systemic lupus M32.9 [place] [address] [address] Feb, Type 2 diabetes mellitus without complic [...] reflux disease, esophagitis presence not specified K21.9 [place] [address] [address] Feb, [place] [address] [address] Jan, [facility] [place] [id number] [place] [address] Jan, Right arm pain M79.[address] of right wrist, initial encounter S66.911A [place] [address] [address] Jan, [facility] [address] [facility] [id number] [address] [place] [address] 30 Dec, 2015 Generalized abdominal pain R 10.84 [place] [address] [address] Dec, Adenopathy R59.1 [place] [address] [address] 19 Dec, 2015 Bronchitis J40 [place] [address] [address] 14 Dec, 2015 [place] [address] [address] Dec, Essential hypertension I10 [place] [address] [address] Nov, [place] [address] [address] Nov, [place] [address] [address] Nov, Essential hypertension I10 ; Hyperlipide martha, [...] Type 2 diabetes mellitus without complication E11.9 [place] [address] [address] Nov, [facility] [address] [address] Oct, Type 2 diabetes mellitus without complic ation E11.9 ; Essential hypertension I10 ; Other viral warts B07.8 ; Lavelle or callus L84 and Hyperlipidemia, unspecified hyperlipidemia E78.5 [facility] [address] [address] Sep, [facility] [address] [address] Sep, [facility] [address] [address] Jun, [facility] [address] [address] Jun, [facility] [address] [address] May, [facility] [address] [address] Apr, [facility] [address] [address] Feb, [facility] [address] [address] Feb, COPD exacerbation J44.1 and Acute upper respiratory infection J06.9 [facility] [address] [address] Feb, [facility] [address] [address] Feb, [facility] [address] [address] Feb, [facility] [address] [address] Feb, [facility] [address] [address] Jan, Left hip pain M25.552 [facility] [address] [id number] [place] [address] Jan, Essential hypertension I10 ; Chronic nataly n syndrome G89.4 ; Type 2 diabetes mellitus without complication E11.9 and Hyperlipidemia, unspecified hyperlipidemia E78.5 [facility] [address] [id number] [place] [address] 28 Jul, 2014 [facility] [address] [place] [id number] [place] [address] 14 Jul, 2014 [facility] [address] [id number] [place] [address] Jul, [facility] [address] [place] [id number] [place] [address] 25 Jun, 2014 [facility] [address] [place] [id number] [place] [address] Jun, [facility] [address] [place] [id number] [place] [address] 24 Jun, 2014 [facility] [address] [place] [id number] [place] [address] Jun, [facility] [address] [place] [id number] [place] [address] Jun, [facility] [address] [place] [address] [id number] [place] [address] Jun, [facility] [address] [place] [id number] [place] [address] Jun, [facility] [address] [place] [address] [id number] [place] [address] Jun, [facility] [address] [place] [address] [id number] [place] [address] 18 Jun, 2014 [facility] [address] [place] [id number] [place] [address] 18 Jun, 2014 [facility] [address] [id number] [place] [address] Jun, [facility] [address] [place] [id number] [place] [address] Jun, [facility] [place] [facility] [address] [facility] [id number] [place] [address] Apr, [facility] [place] [facility] [address] [id number] [place] [address] Apr, [facility] [place] [facility] [address] [id number] [place] [address] Apr, [facility] [place] [facility] [address] [id number] [place] [address] Apr, [facility] [place] [facility] [address] [id number] [place] [address] Apr, [facility] [place] [facility] [address] [id number] [place] [address] Apr, [facility] [place] [facility] [address] [id number] [place] [address] Apr, [facility] [place] [facility] [address] [id number] [place] [address] Apr, [facility] [place] [facility] [address] [id number] [place] [address] Mar, [facility] [place] [facility] [address] [id number] [place] [address] Mar, [facility] [place] [facility] [address] [id number] [place] [address] Mar, [facility] [place] [facility] [address] [id number] [place] [address] Mar, [facility] [place] [facility] [address] [id number] [place] [address] Mar, [facility] [place] [facility] [address] [id number] [place] [address] 18 Mar, 2014 [facility] [place] [facility] [address] [id number] [place] [address] 15 Mar, 2014 [facility] [place] [facility] [address] [id number] [place] [address] Mar, [facility] [place] [facility] [address] [id number] [place] [address] Mar, [facility] [place] [facility] [address] [id number] [place] [address] Mar, [facility] [place] [facility] [address] [id number] [place] [address] Mar, [facility] [place] [facility] [address] [id number] [place] [address] Mar, [facility] [place] [facility] [address] [id number] [place] [address] Mar, [facility] [place] [facility] [address] [id number] [place] [address] Feb, [facility] [place] [facility] [address] [id number] [place] [address] Feb, [facility] [place] [facility] [address] [place] [id number] [place] [address] Feb, [facility] [place] [facility] [address] [id number] [place] [address] Feb, [facility] [place] [facility] [address] [id number] [place] [address] Feb, [facility] [place] [facility] [address] [id number] [place] [address] Feb, [facility] [place] [facility] [address] [id number] [place] [address] Feb, [facility] [place] [facility] [address] [id number] [place] [address] Feb, [facility] [place] [facility] [address] [id number] [place] [address] Jan, [facility] [place] [facility] [address] [place] [id number] [place] [address] Jan, [facility] [place] [facility] [address] [id number] [place] [address] Jan, [facility] [place] [facility] [address] [place] [id number] [place] [address] Jan, [facility] [place] [facility] [address] [id number] [place] [address] Jan, [facility] [place] [facility] [address] [id number] [place] [address] Jan, [facility] [place] [facility] [address] [id number] [place] [address] Jan, 2013 [facility] [place] [facility] [address] [id number] [place] [address] Jan, [facility] [place] [facility] [address] [facility] [id number] [place] [address] Jan, 2013 [facility] [place] [facility] [address] [id number] [place] [address] 30 Dec, 2013 [facility] [place] [facility] [address] [id number] [place] [address] 30 Dec, 2013 [facility] [place] [facility] [address] [id number] [place] [address] 26 Dec, 2013 [facility] [place] [facility] [address] [id number] [place] [address] 26 Sep, 2013 [facility] [place] [facility] [address] [id number] [place] [address] 16 Sep, 2013 [facility] [place] [facility] [address] [id number] [place] [address] 16 Sep, 2013 [facility] [place] [facility] [address] [id number] [place] [address] 08 Sep, 2013 [facility] [place] [facility] [address] [id number] [place] [address] 08 Sep, 2013 [facility] [place] [facility] [address] [id number] [place] [address] 04 Sep, 2013 [facility] [place] [facility] [address] [id number] [place] [address] 04 Dec, 2013 [facility] [place] [facility] [address] [id number] [place] [address] 29 Nov, 2013 [facility] [place] [facility] [address] [id number] [place] [address] Nov, [facility] [place] [facility] [address] [id number] [place] [address] Nov, [facility] [place] [facility] [address] [facility] [id number] [place] [address] Nov, [facility] [place] [facility] [address] [id number] [place] [address] Nov, [facility] [place] [facility] [address] [facility] [id number] [place] [address] Nov, [facility] [place] [facility] [address] [facility] [id number] [place] [address] Nov, [facility] [place] [facility] [address] [id number] [place] [address] Nov, [facility] [place] [facility] [address] [id number] [place] [address] Nov, [facility] [place] [facility] [address] [id number] [place] [address] Nov, [facility] [place] [facility] [address] [facility] [id number] [place] [address] Nov, [facility] [place] [facility] [address] [id number] [place] [address] Nov, [facility] [place] [facility] [address] [id number] [place] [address] Nov, [facility] [place] [facility] [address] [id number] [place] [address] Oct, [facility] [place] [facility] [address] [facility] [id number] [place] [address] Oct, [facility] [address] [id number] [place] [address] Oct, [facility] [address] [facility] [id number] [place] [address] Oct, [facility] [address] [id number] [place] [address] Oct, [facility] [address] [facility] [id number] [place] [address] Oct, [facility] [address] [facility] [id number] [place] [address] Sep, [facility] [address] [facility] [id number] [place] [address] Sep, [facility] [address] [id number] [place] [address] Sep, [facility] [address] [facility] [id number] [place] [address] Sep, [facility] [address] [id number] [place] [address] Sep, [facility] [address] [id number] [place] [address] Sep, [facility] [address] [id number] [place] [address] Sep, [facility] [address] [id number] [place] [address] Sep, [facility] [address] [id number] [place] [address] Sep, [facility] [address] [id number] [place] [address] Sep, [facility] [address] [id number] [place] [address] Sep, [facility] [address] [id number] [place] [address] Sep, [facility] [address] [id number] [place] [address] August, [facility] [address] [id number] [place] [address] August, [facility] [address] [id number] [place] [address] Jul, [facility] [address] [id number] [place] [address] Jul, [facility] [address] [facility] [id number] [place] [address] Jul, [facility] [address] [facility] [id number] [place] [address] 24 Jul, 2013 [facility] [address] [id number] [place] [address] Jul, [facility] [address] [id number] [place] [address] Jul, [facility] [address] [facility] [id number] [place] [address] Jul, [facility] [address] [id number] [place] [address] 16 Jul, 2013 [facility] [address] [id number] [place] [address] Jul, [facility] [address] [id number] [place] [address] Jul, [facility] [address] [id number] [place] [address] Jul, [facility] [address] [id number] [place] [address] Jun, [facility] [address] [id number] [place] [address] Jun, [facility] [address] [id number] [place] [address] Jun, [facility] [address] [id number] [place] [address] Jun, [facility] [address] [id number] [place] [address] Jun, [facility] [place] [facility] [address] [id number] [place] [address] Jun, [facility] [place] [facility] [address] [id number] [place] [address] Jun, [facility] [place] [facility] [address] [id number] [place] [address] Jun, [facility] [place] [facility] [address] [facility] [id number] [place] [address] May, [facility] [place] [facility] [address] [id number] [place] [address] May, [facility] [place] [facility] [address] [id number] [place] [address] May, [facility] [place] [facility] [address] [id number] [place] [address] May, [facility] [place] [facility] [address] [id number] [place] [address] May, [facility] [place] [facility] [address] [id number] [place] [address] May, [facility] [place] [facility] [address] [id number] [place] [address] May, [facility] [place] [facility] [address] [id number] [place] [address] May, [facility] [place] [facility] [address] [id number] [place] [address] May, [facility] [place] [facility] [address] [id number] [place] [address] May, [facility] [place] [facility] [address] [id number] [place] [address] May, [facility] [place] [facility] [address] [id number] [place] [address] May, [facility] [place] [facility] [address] [id number] [place] [address] May, [facility] [place] [facility] [address] [id number] [place] [address] Apr, [facility] [place] [facility] [address] [id number] [place] [address] Apr, [facility] [place] [facility] [address] [id number] [place] [address] Apr, [facility] [address] [facility] [id number] [place] [address] Apr, [facility] [place] [facility] [address] [facility] [id number] [place] [address] Apr, [facility] [place] [facility] [address] [id number] [place] [address] Apr, [facility] [place] [facility] [address] [id number] [place] [address] Apr, [facility] [place] [facility] [address] [facility] [id number] [place] [address] Apr, [facility] [place] [facility] [address] [id number] [place] [address] Apr, [facility] [place] [facility] [address] [id number] [place] [address] Apr, [facility] [place] [facility] [address] [id number] [place] [address] Apr, [facility] [place] [facility] [address] [id number] [place] [address] Apr, [facility] [place] [facility] [address] [id number] [place] [address] Apr, [facility] [place] [facility] [address] [id number] [place] [address] Apr, [facility] [place] [facility] [address] [id number] [place] [address] Apr, [facility] [place] [facility] [address] [facility] [id number] [place] [address] Mar, [facility] [place] [facility] [address] [facility] [id number] [place] [address] Mar, [facility] [place] [facility] [address] [id number] [place] [address] Mar, [facility] [place] [facility] [address] [id number] [place] [address] Mar, [facility] [place] [facility] [address] [id number] [place] [address] 20 Mar, 2013 [facility] [place] [facility] [address] [id number] [place] [address] 20 Mar, 2013 [facility] [place] [facility] [address] [id number] [place] [address] 17 Mar, 2013 [facility] [place] [facility] [address] [id number] [place] [address] 17 Mar, 2013 [facility] [place] [facility] [address] [id number] [place] [address] Mar, [facility] [place] [facility] [address] [id number] [place] [address] Mar, [facility] [place] [facility] [address] [id number] [place] [address] Mar, [facility] [place] [facility] [address] [id number] [place] [address] Mar, [facility] [place] [facility] [address] [id number] [place] [address] Feb, [facility] [place] [facility] [address] [id number] [place] [address] Feb, [facility] [place] [facility] [id number] [place] [address] Feb, [facility] [place] [facility] [address] [id number] [place] [address] Feb, [facility] [place] [facility] [address] [id number] [place] [address] Feb, [facility] [place] [facility] [address] [id number] [place] [address] Feb, [facility] [place] [facility] [id number] [place] [address] Feb, [facility] [place] [facility] [address] [id number] [place] [address] Feb, [facility] [place] [facility] [address] [id number] [place] [address] Jan, [facility] [place] [facility] [address] [id number] [place] [address] Jan, [facility] [place] [facility] [address] [id number] [place] [address] Jan, [facility] [place] [facility] [address] [id number] [place] [address] Jan, [facility] [place] [facility] [address] [id number] [place] [address] Jan, [facility] [place] [facility] [address] [facility] [id number] [place] [address] Jan, [facility] [place] [facility] [address] [id number] [place] [address] Jan, [facility] [place] [facility] [address] [id number] [place] [address] Dec, [facility] [place] [facility] [address] [id number] [place] [address] Dec, [facility] [place] [facility] [address] [id number] [place] [address] Dec, [facility] [place] [facility] [address] [id number] [place] [address] Dec, [facility] [place] [facility] [address] [id number] [place] [address] Dec, [facility] [place] [facility] [address] [id number] [place] [address] Nov, [facility] [place] [facility] [address] [id number] [place] [address] Nov, [facility] [place] [facility] [address] [facility] [id number] [place] [address] Nov, [facility] [place] [facility] [address] [id number] [place] [address] Nov, [facility] [place] [facility] [address] [id number] [place] [address] Nov, [facility] [place] [facility] [address] [id number] [place] [address] Nov, [facility] [place] [facility] [address] [facility] [id number] [place] [address] Nov, [facility] [place] [facility] [address] [facility] [id number] [place] [address] Oct, [facility] [place] [facility] [address] [facility] [id number] [place] [address] Oct, [facility] [place] [facility] [address] [facility] [id number] [place] [address] Oct, [facility] [place] [facility] [address] [facility] [id number] [place] [address] Oct, [facility] [place] [facility] [address] [id number] [place] [address] Oct, [facility] [place] [facility] [address] [id number] [place] [address] Oct, [facility] [place] [facility] [address] [id number] [place] [address] Oct, [facility] [place] [facility] [address] [facility] [id number] [place] [address] Oct, [facility] [place] [facility] [address] [id number] [place] [address] Sep, [facility] [place] [facility] [address] [id number] [place] [address] Sep, [facility] [place] [facility] [address] [id number] [place] [address] Sep, [facility] [place] [facility] [address] [facility] [id number] [place] [address] Sep, [facility] [place] [facility] [address] [facility] [id number] [place] [address] Sep, [facility] [place] [facility] [address] [facility] [id number] [place] [address] Sep, [facility] [place] [facility] [address] [id number] [place] [address] August, [facility] [place] [facility] [address] [id number] [place] [address] August, [facility] [address] [id number] [place] [address] August, [facility] [place] [facility] [address] [id number] [place] [address] August, [facility] [place] [facility] [address] [id number] [place] [address] August, [facility] [place] [facility] [address] [id number] [place] [address] Jul, [facility] [place] [facility] [address] [id number] [place] [address] Jul, [facility] [place] [facility] [address] [id number] [place] [address] Jul, [facility] [place] [facility] [address] [id number] [place] [address] Jul, [facility] [place] [facility] [address] [id number] [place] [address] Jul, [facility] [place] [facility] [address] [id number] [place] [address] Jul, [facility] [place] [facility] [address] [id number] [place] [address] 14 Jun, 2012 [facility] [place] [facility] [address] [id number] [place] [address] Jun, [facility] [place] [facility] [address] [id number] [place] [address] Jun, [facility] [place] [facility] [address] [id number] [place] [address] Jun, [facility] [place] [facility] [address] [id number] [place] [address] 05 Jun, 2012 [facility] [place] [facility] [address] [id number] [place] [address] May, [facility] [place] [facility] [address] [id number] [place] [address] 13 May, 2012 [facility] [place] [facility] [address] [id number] [place] [address] May, [facility] [place] [facility] [address] [id number] [place] [address] Apr, [facility] [place] [facility] [address] [id number] [place] [address] Apr, [facility] [place] [facility] [address] [id number] [place] [address] Mar, [facility] [place] [facility] [address] [id number] [place] [address] Mar, [facility] [place] [facility] [address] [id number] [place] [address] Mar, [facility] [place] [facility] [address] [id number] [place] [address] Mar, [facility] [place] [facility] [address] [id number] [place] [address] Mar, [facility] [place] [facility] [address] [id number] [place] [address] Mar, [facility] [place] [facility] [address] [id number] [place] [address] Feb, [facility] [place] [facility] [address] [id number] [place] [address] Feb, [facility] [place] [facility] [address] [id number] [place] [address] Feb, [facility] [place] [facility] [address] [id number] [place] [address] Jan, [facility] [place] [facility] [address] [id number] [place] [address] Jan, [facility] [place] [facility] [address] [id number] [place] [address] Jan, [facility] [place] [facility] [address] [id number] [place] [address] 24 Jan, 2012 [facility] [place] [facility] [address] [id number] [place] [address] 24 Jan, 2012 [facility] [place] [facility] [address] [facility] [id number] [place] [address] Jan, [facility] [place] [facility] [address] [id number] [place] [address] 17 Jan, 2012 [facility] [place] [facility] [address] [id number] [place] [address] 16 Jan, 2012 [facility] [place] [facility] [address] [id number] [place] [address] Jan, [facility] [place] [facility] [address] [id number] [place] [address] Dec, [facility] [place] [facility] [address] [id number] [place] [address] Dec, [facility] [place] [facility] [address] [id number] [place] [address] Dec, [facility] [place] [facility] [address] [id number] [place] [address] Nov, [facility] [place] [facility] [address] [id number] [place] [address] Nov, [facility] [place] [facility] [address] [id number] [place] [address] Nov, [facility] [place] [facility] [address] [id number] [place] [address] Oct, [facility] [place] [facility] [address] [id number] [place] [address] Oct, [facility] [place] [facility] [address] [id number] [place] [address] Sep, [facility] [place] [facility] [address] [id number] [place] [address] Sep, [facility] [place] [facility] [address] [id number] [place] [address] 18 Sep, 2011 [facility] [place] [facility] [address] [id number] [place] [address] Sep, [facility] [place] [facility] [address] [id number] [place] [address] Sep, [facility] [place] [facility] [address] [id number] [place] [address] August, [facility] [place] [facility] [address] [id number] [place] [address] August, [facility] [place] [facility] [address] [id number] [place] [address] August, [facility] [place] [facility] [address] [id number] [place] [address] August, [facility] [place] [facility] [address] [id number] [place] [address] August, [facility] [place] [facility] [address] [id number] [place] [address] August, [facility] [place] [facility] [address] [id number] [place] [address] August, [facility] [place] [facility] [address] [id number] [place] [address] August, [facility] [place] [facility] [address] [id number] [place] [address] August, [facility] [place] [facility] [address] [id number] [place] [address] Jul, [facility] [place] [facility] [address] [id number] [place] [address] Jul, [facility] [place] [facility] [address] [id number] [place] [address] Jul, [facility] [place] [facility] [address] [id number] [place] [address] 04 Jul, 2011 [facility] [place] [facility] [address] [id number] [place] [address] 27 Jun, 2011 [facility] [place] [facility] [address] [id number] [place] [address] Jun, [facility] [place] [facility] [address] [id number] [place] [address] Jun, [facility] [place] [facility] [address] [id number] [place] [address] 27 May, 2011 [facility] [place] [facility] [address] [id number] [place] [address] 24 May, 2011 [facility] [place] [facility] [address] [facility] [id number] [place] [address] 20 May, 2011 [facility] [place] [facility] [address] [id number] [place] [address] 16 May, 2011 [facility] [place] [facility] [address] [facility] [id number] [place] [address] 15 May, 2011 [facility] [place] [facility] [address] [id number] [place] [address] 14 May, 2011 [facility] [place] [facility] [address] [id number] [place] [address] 10 May, 2011 [facility] [place] [facility] [address] [id number] [place] [address] 09 May, 2011 [facility] [place] [facility] [address] [id number] [place] [address] 02 May, 2011 [facility] [place] [facility] [address] [id number] [place] [address] 30 Apr, 2011 [facility] [place] [facility] [address] [id number] [place] [address] Apr, [facility] [place] [facility] [address] [id number] [place] [address] Apr, [facility] [place] [facility] [address] [id number] [place] [address] 17 Apr, 2011 [facility] [place] [facility] [address] [id number] [place] [address] 16 Apr, 2011 [facility] [place] [facility] [address] [id number] [place] [address] 13 Apr, 2011 [facility] [place] [facility] [address] [id number] [place] [address] 09 Apr, 2011 [facility] [place] [facility] [id number] [place] [address] Apr, [facility] [id number] [place] [address] Apr, [facility] [id number] [place] [address] Apr, [facility] [id number] [place] [address] Apr, [facility] [address] [address] Mar, [facility] [address] [address] Mar, [facility] [address] [address] Mar, [facility] [address] [address] Mar, [facility] [address] [address] Feb, [facility] [id number] [place] [address] Feb, [facility] [address] [address] Jan, [facility] [address] [address] Nov, IMMUNIZATIONS No Known Immunizations SOCIAL HISTORY Never Assessed REASON FOR VISIT PLAN OF CARE VITAL SIGNS Height 67 in 2013-07-11 Weight 189.3 lbs 2013-07-11 Temperature 97.9 degrees Fahrenheit 2013-07-11 Heart Rate 92 bpm 2013-07-11 Respiratory Rate 22 2013-07-11 Blood pressure systolic 128 mmHg 2013-07-11 Blood pressure diastolic 72 mmHg 2013-07-11 MEDICATIONS Unknown Medications RESULTS No Results PROCEDURES [...] laser treatment for glaucoma Hospitalization History ED [place]- Right side and back pain related to fall, hurts to breathe (ED at 7 pm) 06/07/2017 Hospitalization History [facility] ED [place], [place]- Anxiety ( went to ED at 1200) 06/07/2017 Hospitalization History COPD exacerbation - [facility] 2017 Hospitalization History Blood clot, port placement - [facility]ano 09/2017
--- OUTSIDE RECORDS SUMMARY | 2019-09-01 14:29 | XMS REPORT ---
Author Author RADHA Sophianaren OLIVA [facility] Address [address] [place] [address] Care Team Providers Care Fitter/Welder Name Role Phone RADHAGASPER MCPHERSONY Unavailable PROBLEMS Type Condition ICD9-CM Code XUU92-ET Code Onset Dates Condition S tatus SNOMED Code Problem Proteinuria R80.9 Active 60577360 Problem Essential hypertension I10 Active 79555084 Problem Anxiety F41.9 Active 18538343 Problem Type 2 diabetes mellitus without complication E11. 9 Active 74482481 Problem Hyperlipidemia, unspecified hyperlipidemia E78.5 Active 79119302 Problem Major depressive disorder, recurrent episode, un specified severity F33.9 Active 16804652 Problem Sciatica, unspecified laterality M54.30 Active 33744999 Problem Acute cystitis with hematuria N30.01 Active 26195332 Problem Chronic pain syndrome G89.4 Active 160172713 Problem Exacerbation of systemic lupus M32.9 Active 49716527 Problem Generalized abdominal pain R10.84 Act sree 506548065 Problem Carpal tunnel syndrome, right upper limb G56.01 Active 23907571 Problem History of small bowel obstruction Z87.19 Active 250612142 Problem History of pulmonary embolism Z86.711 Active 536151223 Problem Presence of IVC filter Z95.828 Active 308518474 Problem Port catheter in place Z95.828 Active 977888824 Problem Gastroesophageal reflux disease, esophagitis pre sence not specified K21.9 Active 060371639 Problem Chronic pancreatitis, unspecified pancreatitis type K86.1 Active 414923419 Problem Hypothyroidism, unspecified type E03.9 Active 89696977 Problem Vitamin D deficiency E55.9 Active 88028294 Problem Nausea R11.0 Active 454041321 Problem Pneumonia due to infectious organism, unspecified laterality, unspecified part of lung J18.9 Active 312 113616 Problem Gastroesophageal reflux disease without esophagitis K21.9 Active 552723706 Problem Violation of controlled substance agreement Z91.14 Active 349150575 Problem Obstructive sleep apnea G47.33 Active 18166692 Problem Hypertension, benign I10 Active 00868113 Problem Venous insufficiency I87.2 Active 24154835 Problem Chronic obstructive pulmonary disease, unspecified COPD ty pe J44.9 Active 84627074 Problem Tobacco abuse counseling Z71.6 Activ e 79663617 Problem 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 A ctive 925866315 Problem Opiate dependence, continuous F11.20 Active 022669980 Problem Cannabis abuse with physiological dependence F12.1 0 Active 83861859 ALLERGIES No Information ENCOUNTERS Encounter Location Date Diagnosis [facility] [address] [address] May, [place] [address] [address] Apr, Tobacco abuse Z72.0 ; Hypertension, stefan gn I10 and Tobacco abuse counseling Z71.6 [place] [address] [address] Sep, [place] [address] [address] Sep, [facility] [address] [address] Sep, Essential hypertension I10 [place] [address] [address] Sep, [facility] [address] [address] Sep, [place] [address] [address] Sep, Neck mass R22.1 [facility] [address] [address] August, Neck mass R22.1 [facility] [address] [facility] [id number] [address] [place] [address] Feb, Left foot pain M79.672 [facility] [address] [address] Jun, Chronic pain syndrome G89.4 [facility] [address] [id number] [place] [id number] May, [facility] [address] [place] [id number] [place] [address] May, [facility] [address] [place] [id number] [place] [address] May, Chronic pain syndrome G89.4 [facility] [address] [place] [id number] [place] [address] May, [facility] [address] [facility] [id number] [address] [place] [address] 10 May, 2017 Encounter for immunization Z 23 and Laceration of left index finger without foreign body without damage to nail, initial encounter S61.211A [place] [address] [address] 09 May, 2017 Chronic pain syndrome G89.4 [facility] [address] [place] [id number] [place] [address] May, [place] [address] [address] Apr, Cannabis abuse with physiological depend ence F12.10 ; Violation of controlled substance agreement Z91.14 and Opiate dependence, continuous F11.20 [place] [address] [place] [id number] [place] [address] Apr, Type 2 diabetes mellitus without complic ation E11.9 [facility] [address] [place] [id number] [place] [address] Apr, [place] [address] [address] Apr, Chronic pain syndrome G89.4 [facility] [address] [place] [id number] [place] [address] Apr, Viral syndrome B34.9 [facility] [address] [address] Apr, [facility] [address] [address] Mar, Chronic pain syndrome G89.4 [facility] [address] [address] Mar, [facility] [address] [address] Mar, [facility] [address] [address] Feb, Essential hypertension I10 ; Chronic nataly n syndrome G89.4 ; Hyperlipidemia, unspecified hyperlipidemia E78.5 ; 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 and Encounter for immunization Z23 [place] [address] [address] Feb, Chronic pain syndrome G89.4 [facility] [address] [address] Jan, Chronic pain syndrome G89.4 [facility] [address] [address] Jan, [facility] [address] [address] Jan, Bronchitis J40 ; Port catheter in place Z95.828 and Chronic pain syndrome G89.4 [facility] [address] [id number] [place] [id number] Jan, [facility] [address] [address] 22 Dec, 2016 Chronic pain syndrome G89.4 [facility] [address] [address] 18 Dec, 2016 Chronic pain syndrome G89.4 [facility] [address] [address] 08 Dec, 2016 [facility] [address] [address] Nov, [facility] [address] [address] Nov, Chronic pain syndrome G89.4 [facility] [address] [address] Oct, Chronic pain syndrome G89.4 [facility] [address] [address] Oct, [facility] [address] [address] Sep, Chronic pain syndrome G89.4 [facility] [address] [address] Sep, Exacerbation of systemic lupus M32.9 [facility] [address] [address] Sep, [facility] [address] [address] Sep, [facility] [address] [address] Sep, Nausea R11.0 [facility] [address] [address] August, Chronic pain syndrome G89.4 [facility] [address] [address] August, [facility] [address] [address] August, Chronic pain syndrome G89.4 [facility] [address] [address] Jul, Pneumonia due to infectious organism, un specified laterality, unspecified part of lung J18.9 and Tobacco abuse counseling Z71.6 [facility] [address] [address] Jul, Chronic pain syndrome G89.4 [facility] [address] [address] Jun, Essential hypertension I10 [facility] [address] [address] Jun, Pneumonia due to infectious organism, un specified laterality, unspecified part of lung J18.9 [place] [address] [address] Jun, Chronic pain syndrome G89.4 [place] [address] [address] May, Essential hypertension I10 ; Type 2 [...] and Gastroesophageal reflux disease without esophagitis K21.9 [place] [address] [address] Apr, [address] [address] Apr, Pneumonia due to infectious organism, un specified laterality, unspecified part of lung J18.9 and Nausea R11.[address] [address] Apr, Essential hypertension I10 ; Chronic nataly n syndrome G89.4 ; Type 2 diabetes mellitus without complication E11.9 ; Hyperlipidemia, unspecified hyperlipidemia E78.5 ; Major depressive disorder, recurrent episode, unspecified severity F33.9 ; Sciatica, unspecified laterality M54.30 ; Chronic obstructive pulmonary disease, unspecified COPD type J44.9 ; Pneumonia due to infectious organism, unspecified laterality, unspecified part of lung J18.9 and Nausea R11.0 [facility] [address] [facility] [id number] [address] [place] [address] Mar, [address] [address] Mar, [place] [address] [address] Mar, [place] [address] [address] Mar, Anxiety F41.9 and Major depressive disor rita, recurrent episode, unspecified severity F33.9 [place] [address] [address] Mar, [place] [address] [address] Mar, [place] [address] [address] Mar, Generalized abdominal pain R10.84 ; Acut e cystitis with hematuria N30.01 and Essential hypertension I10 [facility] [address] [place] [address] Mar, Sore throat J02.9 and Exacer bation of systemic lupus M32.9 [place] [address] [address] Feb, Type 2 diabetes mellitus without complic [...] reflux disease, esophagitis presence not specified K21.9 [place] [address] [address] Feb, [place] [address] [address] Jan, [facility] [place] [id number] [place] [address] Jan, Right arm pain M79.601 [address] of right wrist, initial encounter S66.911A [place] [address] [address] Jan, [facility] [address] [facility] [id number] [address] [place] [address] 30 Dec, 2015 Generalized abdominal pain R 10.84 [place] [address] [address] Dec, Adenopathy R59.1 [place] [address] [address] 19 Dec, 2015 Bronchitis J40 [place] [address] [address] 14 Dec, 2015 [place] [address] [address] Dec, Essential hypertension I10 [place] [address] [address] Nov, [place] [address] [address] Nov, [place] [address] [address] Nov, Essential hypertension I10 ; Hyperlipide martha, [...] Type 2 diabetes mellitus without complication E11.9 [place] [address] [address] Nov, [facility] [address] [address] Oct, Type 2 diabetes mellitus without complic ation E11.9 ; Essential hypertension I10 ; Other viral warts B07.8 ; [place] or callus L84 and Hyperlipidemia, unspecified hyperlipidemia E78.5 [facility] [address] [address] Sep, [facility] [address] [address] Sep, [facility] [address] [address] Jun, [facility] [address] [address] Jun, [facility] [address] [address] May, [facility] [address] [address] Apr, [facility] [address] [address] Feb, [facility] [address] [address] Feb, COPD exacerbation J44.1 and Acute upper respiratory infection J06.9 [facility] [address] [address] Feb, [facility] [address] [address] Feb, [facility] [address] [address] Feb, [facility] [address] [address] Feb, [facility] [address] [address] Jan, Left hip pain M25.552 [facility] [address] [id number] [place] [address] Jan, Essential hypertension I10 ; Chronic nataly n syndrome G89.4 ; Type 2 diabetes mellitus without complication E11.9 and Hyperlipidemia, unspecified hyperlipidemia E78.5 [facility] [address] [id number] [place] [address] 28 Jul, 2014 [facility] [address] [place] [address] [id number] [place] [address] 14 Jul, 2014 [facility] [address] [id number] [place] [address] Jul, [facility] [address] [place] [id number] [place] [address] 25 Jun, 2014 [facility] [address] [place] [address] [id number] [place] [address] Jun, [facility] [address] [place] [id number] [place] [address] 24 Jun, 2014 [facility] [address] [place] [id number] [place] [address] Jun, [facility] [address] [place] [address] [id number] [place] [address] Jun, [facility] [address] [place] [address] [id number] [place] [address] Jun, [facility] [address] [place] [id number] [place] [address] Jun, [facility] [address] [place] [id number] [place] [address] Jun, [facility] [address] [place] [id number] [place] [address] 18 Jun, 2014 [facility] [address] [place] [address] [id number] [place] [address] 18 Jun, 2014 [facility] [address] [place] [id number] [place] [address] Jun, [facility] [address] [place] [id number] [place] [address] Jun, [facility] [place] [facility] [address] [facility] [id number] [place] [address] Apr, [facility] [place] [facility] [address] [id number] [place] [address] Apr, [facility] [place] [facility] [address] [id number] [place] [address] Apr, [facility] [place] [facility] [address] [id number] [place] [address] Apr, [facility] [place] [facility] [address] [id number] [place] [address] Apr, [facility] [place] [facility] [address] [id number] [place] [address] Apr, [facility] [place] [facility] [address] [id number] [place] [address] Apr, [facility] [place] [facility] [address] [id number] [place] [address] Apr, [facility] [place] [facility] [address] [id number] [place] [address] Mar, [facility] [place] [facility] [address] [id number] [place] [address] Mar, [facility] [place] [facility] [address] [id number] [place] [address] Mar, [facility] [place] [facility] [address] [id number] [place] [address] Mar, [facility] [place] [facility] [address] [id number] [place] [address] Mar, [facility] [place] [facility] [address] [id number] [place] [address] 18 Mar, 2014 [facility] [place] [facility] [address] [id number] [place] [address] 15 Mar, 2014 [facility] [place] [facility] [address] [id number] [place] [address] Mar, [facility] [place] [facility] [address] [id number] [place] [address] Mar, [facility] [place] [facility] [address] [id number] [place] [address] Mar, [facility] [place] [facility] [address] [id number] [place] [address] Mar, [facility] [place] [facility] [address] [id number] [place] [address] Mar, [facility] [place] [facility] [address] [id number] [place] [address] Mar, [facility] [place] [facility] [address] [id number] [place] [address] Feb, [facility] [place] [facility] [address] [id number] [place] [address] Feb, [facility] [place] [facility] [address] [place] [address] [id number] [place] [address] Feb, [facility] [place] [facility] [address] [id number] [place] [address] Feb, [facility] [place] [facility] [address] [id number] [place] [address] Feb, [facility] [place] [facility] [address] [id number] [place] [address] Feb, [facility] [place] [facility] [address] [id number] [place] [address] Feb, [facility] [place] [facility] [address] [id number] [place] [address] Feb, [facility] [place] [facility] [address] [id number] [place] [address] Jan, [facility] [place] [facility] [address] [place] [id number] [place] [address] Jan, [facility] [place] [facility] [address] [id number] [place] [address] Jan, [facility] [place] [facility] [address] [place] [id number] [place] [address] Jan, [facility] [place] [facility] [address] [id number] [place] [address] Jan, [facility] [place] [facility] [address] [id number] [place] [address] Jan, [facility] [place] [facility] [address] [id number] [place] [address] Jan, 2013 [facility] [place] [facility] [address] [id number] [place] [address] Jan, [facility] [place] [facility] [address] [facility] [id number] [place] [address] Jan, 2013 [facility] [place] [facility] [address] [id number] [place] [address] 30 Dec, 2013 [facility] [place] [facility] [address] [id number] [place] [address] 30 Dec, 2013 [facility] [place] [facility] [address] [id number] [place] [address] 26 Dec, 2013 [facility] [place] [facility] [address] [id number] [place] [address] 26 Sep, 2013 [facility] [place] [facility] [address] [id number] [place] [address] 16 Sep, 2013 [facility] [place] [facility] [address] [id number] [place] [address] 16 Sep, 2013 [facility] [place] [facility] [address] [id number] [place] [address] 08 Sep, 2013 [facility] [place] [facility] [address] [id number] [place] [address] 08 Sep, 2013 [facility] [place] [facility] [address] [id number] [place] [address] 04 Sep, 2013 [facility] [place] [facility] [address] [id number] [place] [address] 04 Dec, 2013 [facility] [place] [facility] [address] [id number] [place] [address] 29 Nov, 2013 [facility] [place] [facility] [address] [id number] [place] [address] Nov, [facility] [place] [facility] [address] [id number] [place] [address] Nov, [facility] [place] [facility] [address] [facility] [id number] [place] [address] Nov, [facility] [place] [facility] [address] [id number] [place] [address] Nov, [facility] [place] [facility] [address] [facility] [id number] [place] [address] Nov, [facility] [place] [facility] [address] [facility] [id number] [place] [address] Nov, [facility] [place] [facility] [address] [id number] [place] [address] Nov, [facility] [place] [facility] [address] [id number] [place] [address] Nov, [facility] [place] [facility] [address] [id number] [place] [address] Nov, [facility] [place] [facility] [address] [facility] [id number] [place] [address] Nov, [facility] [place] [facility] [address] [id number] [place] [address] Nov, [facility] [place] [facility] [address] [id number] [place] [address] Nov, [facility] [place] [facility] [address] [id number] [place] [address] Oct, [facility] [place] [facility] [address] [facility] [id number] [place] [address] Oct, [facility] [place] [facility] [address] [id number] [place] [address] Oct, [facility] [place] [facility] [address] [facility] [id number] [place] [address] Oct, [facility] [place] [facility] [address] [id number] [place] [address] Oct, [facility] [place] [facility] [address] [facility] [id number] [place] [address] Oct, [facility] [place] [facility] [address] [facility] [id number] [place] [address] Sep, [facility] [place] [facility] [address] [facility] [id number] [place] [address] Sep, [facility] [place] [facility] [address] [id number] [place] [address] Sep, [facility] [place] [facility] [address] [facility] [id number] [place] [address] Sep, [facility] [place] [facility] [address] [id number] [place] [address] Sep, [facility] [place] [facility] [address] [id number] [place] [address] Sep, [facility] [place] [facility] [address] [id number] [place] [address] Sep, [facility] [place] [facility] [address] [id number] [place] [address] Sep, [facility] [place] [facility] [address] [id number] [place] [address] Sep, [facility] [address] [id number] [place] [address] Sep, [facility] [address] [id number] [place] [address] Sep, [facility] [address] [id number] [place] [address] Sep, [facility] [address] [id number] [place] [address] August, [facility] [address] [id number] [place] [address] August, [facility] [address] [id number] [place] [address] Jul, [facility] [address] [id number] [place] [address] Jul, [facility] [address] [facility] [id number] [place] [address] Jul, [facility] [address] [facility] [id number] [place] [address] 24 Jul, 2013 [facility] [address] [id number] [place] [address] Jul, [facility] [address] [id number] [place] [address] Jul, [facility] [address] [facility] [id number] [place] [address] Jul, [facility] [address] [id number] [place] [address] 16 Jul, 2013 [facility] [address] [id number] [place] [address] Jul, [facility] [address] [id number] [place] [address] Jul, [facility] [address] [id number] [place] [address] Jul, [facility] [address] [id number] [place] [address] Jun, [facility] [address] [id number] [place] [address] Jun, [facility] [address] [id number] [place] [address] Jun, [facility] [address] [id number] [place] [address] Jun, [facility] [address] [id number] [place] [address] Jun, [facility] [address] [id number] [place] [address] Jun, [facility] [address] [id number] [place] [address] Jun, [facility] [address] [id number] [place] [address] Jun, [facility] [address] [facility] [id number] [place] [address] May, [facility] [facility] [address] [id number] [place] [address] May, [facility] [address] [id number] [place] [address] May, [facility] [address] [id number] [place] [address] May, [facility] [address] [id number] [place] [address] May, [facility] [address] [id number] [place] [address] May, [facility] [address] [id number] [place] [address] May, [facility] [address] [id number] [place] [address] May, [facility] [address] [id number] [place] [address] May, [facility] [address] [id number] [place] [address] May, [facility] [address] [id number] [place] [address] May, [facility] [address] [id number] [place] [address] May, [facility] [address] [id number] [place] [address] May, [facility] [address] [id number] [place] [address] Apr, [facility] [address] [id number] [place] [address] Apr, [facility] [address] [id number] [place] [address] Apr, [facility] [address] [facility] [id number] [place] [address] Apr, [facility] [address] [facility] [id number] [place] [address] Apr, [facility] [address] [id number] [place] [address] Apr, [facility] [address] [id number] [place] [address] Apr, [facility] [address] [facility] [id number] [place] [address] Apr, [facility] [address] [id number] [place] [address] Apr, [facility] [address] [id number] [place] [address] Apr, [facility] [address] [id number] [place] [address] Apr, [facility] [address] [id number] [place] [address] Apr, [facility] [address] [id number] [place] [address] Apr, [facility] [address] [id number] [place] [address] Apr, [facility] [address] [id number] [place] [address] Apr, [facility] [address] [facility] [id number] [place] [address] Mar, [facility] [address] [facility] [id number] [place] [address] Mar, [facility] [address] [id number] [place] [address] Mar, [facility] [address] [id number] [place] [address] Mar, [facility] [address] [id number] [place] [address] 20 Mar, 2013 [facility] [address] [id number] [place] [address] 20 Mar, 2013 [facility] [address] [id number] [place] [address] 17 Mar, 2013 [facility] [address] [id number] [place] [address] 17 Mar, 2013 [facility] [address] [id number] [place] [address] Mar, [facility] [address] [id number] [place] [address] Mar, [facility] [address] [id number] [place] [address] Mar, [facility] [address] [id number] [place] [address] Mar, [facility] [address] [id number] [place] [address] Feb, [facility] [address] [id number] [place] [address] Feb, [facility] [id number] [place] [address] Feb, [facility] [address] [id number] [place] [address] Feb, [facility] [address] [id number] [place] [address] Feb, [facility] [address] [id number] [place] [address] Feb, [facility] [id number] [place] [address] Feb, [facility] [address] [id number] [place] [address] Feb, [facility] [address] [id number] [place] [address] Jan, [facility] [address] [id number] [place] [address] Jan, [facility] [address] [id number] [place] [address] Jan, [facility] [address] [id number] [place] [address] Jan, [facility] [address] [id number] [place] [address] Jan, [facility] [address] [facility] [id number] [place] [address] Jan, [facility] [address] [id number] [place] [address] Jan, [facility] [address] [id number] [place] [address] Dec, [facility] [address] [id number] [place] [address] Dec, [facility] [address] [id number] [place] [address] Dec, [facility] [address] [id number] [place] [address] Dec, [facility] [address] [id number] [place] [address] Dec, [facility] [address] [id number] [place] [address] Nov, [facility] [address] [id number] [place] [address] Nov, [facility] [address] [facility] [id number] [place] [address] Nov, [facility] [address] [id number] [place] [address] Nov, [facility] [address] [id number] [place] [address] Nov, [facility] [address] [id number] [place] [address] Nov, [facility] [address] [facility] [id number] [place] [address] Nov, [facility] [address] [facility] [id number] [place] [address] Oct, [facility] [address] [facility] [id number] [place] [address] Oct, [facility] [address] [facility] [id number] [place] [address] Oct, [facility] [address] [facility] [id number] [place] [address] Oct, [facility] [address] [id number] [place] [address] Oct, [facility] [address] [id number] [place] [address] Oct, [facility] [address] [id number] [place] [address] Oct, [facility] [address] [facility] [id number] [place] [address] Oct, [facility] [address] [id number] [place] [address] Sep, [facility] [address] [id number] [place] [address] Sep, [facility] [address] [id number] [place] [address] Sep, [facility] [address] [facility] [id number] [place] [address] Sep, [facility] [address] [facility] [id number] [place] [address] Sep, [facility] [address] [facility] [id number] [place] [address] Sep, [facility] [address] [id number] [place] [address] August, [facility] [address] [id number] [place] [address] August, [facility] [address] [id number] [place] [address] August, [facility] [address] [id number] [place] [address] August, [facility] [address] [id number] [place] [address] August, [facility] [address] [id number] [place] [address] Jul, [facility] [address] [id number] [place] [address] Jul, [facility] [address] [id number] [place] [address] Jul, [facility] [address] [id number] [place] [address] Jul, [facility] [address] [id number] [place] [address] Jul, [facility] [address] [id number] [place] [address] Jul, [facility] [address] [id number] [place] [address] 14 Jun, 2012 [facility] [address] [id number] [place] [address] Jun, [facility] [address] [id number] [place] [address] Jun, [facility] [address] [id number] [place] [address] Jun, [facility] [address] [id number] [place] [address] 05 Jun, 2012 [facility] [address] [id number] [place] [address] May, [facility] [address] [id number] [place] [address] 13 May, 2012 [facility] [address] [id number] [place] [address] May, [facility] [address] [id number] [place] [address] Apr, [facility] [address] [id number] [place] [address] Apr, [facility] [address] [id number] [place] [address] Mar, [facility] [address] [id number] [place] [address] Mar, [facility] [address] [id number] [place] [address] Mar, [facility] [address] [id number] [place] [address] Mar, [facility] [address] [id number] [place] [address] Mar, [facility] [address] [id number] [place] [address] Mar, [facility] [address] [id number] [place] [address] Feb, [facility] [address] [id number] [place] [address] Feb, [facility] [address] [id number] [place] [address] Feb, [facility] [address] [id number] [place] [address] Jan, [facility] [address] [id number] [place] [address] Jan, [facility] [address] [id number] [place] [address] Jan, [facility] [address] [id number] [place] [address] 24 Jan, 2012 [facility] [address] [id number] [place] [address] 24 Jan, 2012 [facility] [address] [facility] [id number] [place] [address] Jan, [facility] [address] [id number] [place] [address] 17 Jan, 2012 [facility] [address] [id number] [place] [address] 16 Jan, 2012 [facility] [address] [id number] [place] [address] Jan, [facility] [address] [id number] [place] [address] Dec, [facility] [address] [id number] [place] [address] Dec, [facility] [address] [id number] [place] [address] Dec, [facility] [address] [id number] [place] [address] Nov, [facility] [address] [id number] [place] [address] Nov, [facility] [address] [id number] [place] [address] Nov, [facility] [address] [id number] [place] [address] Oct, [facility] [address] [id number] [place] [address] Oct, [facility] [address] [id number] [place] [address] Sep, [facility] [address] [id number] [place] [address] Sep, [facility] [address] [id number] [place] [address] 18 Sep, 2011 [facility] [address] [id number] [place] [address] Sep, [facility] [address] [id number] [place] [address] Sep, [facility] [address] [id number] [place] [address] August, [facility] [address] [id number] [place] [address] August, [facility] [address] [id number] [place] [address] August, [facility] [address] [id number] [place] [address] August, [facility] [address] [id number] [place] [address] August, [facility] [address] [id number] [place] [address] August, [facility] [address] [id number] [place] [address] August, [facility] [address] [id number] [place] [address] August, [facility] [address] [id number] [place] [address] August, [facility] [address] [id number] [place] [address] Jul, [facility] [address] [id number] [place] [address] Jul, [facility] [address] [id number] [place] [address] Jul, [facility] [address] [id number] [place] [address] 04 Jul, 2011 [facility] [facility] [address] [id number] [place] [address] 27 Jun, 2011 [facility] [facility] [address] [id number] [place] [address] Jun, [facility] [facility] [address] [id number] [place] [address] Jun, [facility] [facility] [address] [id number] [place] [address] 27 May, 2011 [facility] [facility] [address] [id number] [place] [address] 24 May, 2011 [facility] [facility] [address] [facility] [id number] [place] [address] 20 May, 2011 [facility] [facility] [address] [id number] [place] [address] 16 May, 2011 [facility] [facility] [address] [facility] [id number] [place] [address] 15 May, 2011 [facility] [facility] [address] [id number] [place] [address] 14 May, 2011 [facility] [facility] [address] [id number] [place] [address] 10 May, 2011 [facility] [facility] [address] [id number] [place] [address] 09 May, 2011 [facility] [facility] [address] [id number] [place] [address] 02 May, 2011 [facility] [place] [facility] [address] [id number] [place] [address] 30 Apr, 2011 [facility] [facility] [address] [id number] [place] [address] Apr, [facility] [place] [facility] [address] [id number] [place] [address] Apr, [facility] [place] [facility] [address] [id number] [place] [address] 17 Apr, 2011 [facility] [place] [facility] [address] [id number] [place] [address] 16 Apr, 2011 [facility] [place] [facility] [address] [id number] [place] [address] 13 Apr, 2011 [facility] [place] [facility] [address] [id number] [place] [address] 09 Apr, 2011 [facility] [place] [facility] [id number] [place] [address] Apr, [facility] [id number] [place] [address] Apr, [facility] [id number] [place] [address] Apr, [facility] [address] [address] Apr, [facility] [address] [address] Mar, [facility] [address] [address] Mar, [facility] [address] [address] Mar, [facility] [address] [address] Mar, [facility] [address] [address] Feb, [facility] [id number] [place] [address] Feb, [facility] [address] [address] Jan, [facility] [address] [address] Nov, IMMUNIZATIONS No Known Immunizations SOCIAL HISTORY [...] laser treatment for glaucoma Hospitalization History [facility] [place]- Right side and back pain related to fall, hurts to breathe (ED at 7 pm) 06/07/2017 Hospitalization History [facility] [place]- Anxiety ( went to ED at 1200) 06/07/2017 Hospitalization History COPD exacerbation - [place] Pizano 2017 Hospitalization History Blood clot, port placement - [place]izano 09/2017
--- OUTSIDE RECORDS SUMMARY | 2019-09-01 14:29 | XMS REPORT ---
Author Author RADHA Sophianaren [facility] Address [address] [place] [address] Care Team Providers Care Core Driller Name Role Phone RADHAGASPER MCPHERSONY Unavailable PROBLEMS Type Condition ICD9-CM Code [id number] Code Onset Dates Condition S tatus SNOMED Code Problem Proteinuria R80.9 Active 43743435 Problem Essential hypertension I10 Active 08102548 Problem Anxiety F41.9 Active 12254557 Problem Type 2 diabetes mellitus without complication E11. 9 Active 24364569 Problem Hyperlipidemia, unspecified hyperlipidemia E78.5 Active 69604449 Problem Major depressive disorder, recurrent episode, un specified severity F33.9 Active 48192883 Problem Sciatica, unspecified laterality M54.30 Active 56133724 Problem Acute cystitis with hematuria N30.01 Active 49644128 Problem Chronic pain syndrome G89.4 Active 138712119 Problem Exacerbation of systemic lupus M32.9 Active 14976477 Problem Generalized abdominal pain R10.84 Act sree 737735836 Problem Carpal tunnel syndrome, right upper limb G56.01 Active 60820533 Problem History of small bowel obstruction Z87.19 Active 889889787 Problem History of pulmonary embolism Z86.711 Active 595968496 Problem Presence of IVC filter Z95.828 Active 134534131 Problem Port catheter in place Z95.828 Active 663815185 Problem Gastroesophageal reflux disease, esophagitis pre sence not specified K21.9 Active 184924246 Problem Chronic pancreatitis, unspecified pancreatitis type K86.1 Active 163900493 Problem Hypothyroidism, unspecified type E03.9 Active 02096269 Problem Vitamin D deficiency E55.9 Active 31938211 Problem Nausea R11.0 Active 324050919 Problem Pneumonia due to infectious organism, unspecified laterality, unspecified part of lung J18.9 Active 312 361646 Problem Gastroesophageal reflux disease without esophagitis K21.9 Active 847174390 Problem Violation of controlled substance agreement Z91.14 Active 597615874 Problem Obstructive sleep apnea G47.33 Active 02997195 Problem Hypertension, benign I10 Active 55582335 Problem Venous insufficiency I87.2 Active 48640316 Problem Chronic obstructive pulmonary disease, unspecified COPD ty pe J44.9 Active 43175591 Problem Tobacco abuse counseling Z71.6 Activ e 62222280 Problem 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 A ctive 532748744 Problem Opiate dependence, continuous F11.20 Active 304924631 Problem Cannabis abuse with physiological dependence F12.1 0 Active 83839874 ALLERGIES No Information ENCOUNTERS Encounter Location Date Diagnosis [facility] [address] [address] May, [place] [address] [address] Apr, Tobacco abuse Z72.0 ; Hypertension, stefan gn I10 and Tobacco abuse counseling Z71.6 [place] [address] [address] Sep, [place] [address] [address] Sep, [facility] [address] [address] Sep, Essential hypertension I10 [place] [address] [address] Sep, [facility] [address] [address] Sep, [place] [address] [address] Sep, Neck mass R22.1 [facility] [address] [address] August, Neck mass R22.1 [facility] [address] [facility] [id number] [address] [place] [address] Feb, Left foot pain M79.672 [facility] [address] [address] Jun, Chronic pain syndrome G89.4 [facility] [id number] [place] [id number] May, [facility] [address] [place] [id number] [place] [address] May, [facility] [address] [place] [id number] [place] [address] May, Chronic pain syndrome G89.4 [facility] [address] [place] [id number] [place] [address] May, [facility] [address] [facility] [id number] [address] [place] [address] 10 May, 2017 Encounter for immunization Z 23 and Laceration of left index finger without foreign body without damage to nail, initial encounter S61.211A [place] [address] [address] 09 May, 2017 Chronic pain syndrome G89.4 [facility] [address] [place] [id number] [place] [address] May, [place] [address] [address] Apr, Cannabis abuse with physiological depend ence F12.10 ; Violation of controlled substance agreement Z91.14 and Opiate dependence, continuous F11.20 [place] [address] [place] [id number] [place] [address] Apr, Type 2 diabetes mellitus without complic ation E11.9 [facility] [address] [place] [id number] [place] [address] Apr, [place] [address] [address] Apr, Chronic pain syndrome G89.4 [facility] [address] [place] [id number] [place] [address] Apr, Viral syndrome B34.9 [facility] [address] [address] Apr, [facility] [address] [address] Mar, Chronic pain syndrome G89.4 [facility] [address] [address] Mar, [facility] [address] [address] Mar, [facility] [address] [address] Feb, Essential hypertension I10 ; Chronic nataly n syndrome G89.4 ; Hyperlipidemia, unspecified hyperlipidemia E78.5 ; 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 and Encounter for immunization Z23 [place] [address] [address] Feb, Chronic pain syndrome G89.4 [facility] [address] [address] Jan, Chronic pain syndrome G89.4 [facility] [address] [address] Jan, [facility] [address] [address] Jan, Bronchitis J40 ; Port catheter in place Z95.828 and Chronic pain syndrome G89.4 [facility] [address] [id number] [place] [id number] Jan, [facility] [address] [address] 22 Dec, 2016 Chronic pain syndrome G89.4 [facility] [address] [address] 18 Dec, 2016 Chronic pain syndrome G89.4 [facility] [address] [address] 08 Dec, 2016 [facility] [address] [address] Nov, [facility] [address] [address] Nov, Chronic pain syndrome G89.4 [facility] [address] [address] Oct, Chronic pain syndrome G89.4 [facility] [address] [address] Oct, [facility] [address] [address] Sep, Chronic pain syndrome G89.4 [facility] [address] [address] Sep, Exacerbation of systemic lupus M32.9 [facility] [address] [address] Sep, [facility] [address] [address] Sep, [facility] [address] [address] Sep, Nausea R11.0 [facility] [address] [address] August, Chronic pain syndrome G89.4 [facility] [address] [address] August, [facility] [address] [address] August, Chronic pain syndrome G89.4 [facility] [address] [address] Jul, Pneumonia due to infectious organism, un specified laterality, unspecified part of lung J18.9 and Tobacco abuse counseling Z71.6 [facility] [address] [address] Jul, Chronic pain syndrome G89.4 [facility] [address] [address] Jun, Essential hypertension I10 [facility] [address] [address] Jun, Pneumonia due to infectious organism, un specified laterality, unspecified part of lung J18.9 [place] [address] [address] Jun, Chronic pain syndrome G89.4 [place] [address] [address] May, Essential hypertension I10 ; Type 2 [...] and Gastroesophageal reflux disease without esophagitis K21.9 [place] [address] [address] Apr, [address] [address] Apr, Pneumonia due to infectious organism, un specified laterality, unspecified part of lung J18.9 and Nausea R11.[address] [address] Apr, Essential hypertension I10 ; Chronic nataly [...] lung J18.9 and Nausea R11.0 [facility] [address] [facility] [id number] [address] [place] [address] Mar, [address] [address] Mar, [place] [address] [address] Mar, [place] [address] [address] Mar, Anxiety F41.9 and Major depressive disor rita, recurrent episode, unspecified severity F33.9 [place] [address] [address] Mar, [place] [address] [address] Mar, [place] [address] [address] Mar, Generalized abdominal pain R10.84 ; Acut e cystitis with hematuria N30.01 and Essential hypertension I10 [facility] [address] [place] [address] Mar, Sore throat J02.9 and Exacer bation of systemic lupus M32.9 [place] [address] [address] Feb, Type 2 diabetes mellitus without complic [...] reflux disease, esophagitis presence not specified K21.9 [place] [address] [address] Feb, [place] [address] [address] Jan, [facility] [place] [id number] [place] [address] Jan, Right arm pain M79.601 [address] of right wrist, initial encounter S66.911A [place] [address] [address] Jan, [facility] [address] [facility] [id number] [address] [place] [address] 30 Dec, 2015 Generalized abdominal pain R 10.84 [place] [address] [address] Dec, Adenopathy R59.1 [place] [address] [address] 19 Dec, 2015 Bronchitis J40 [place] [address] [address] 14 Dec, 2015 [place] [address] [address] Dec, Essential hypertension I10 [place] [address] [address] Nov, [place] [address] [address] Nov, [place] [address] [address] Nov, Essential hypertension I10 ; Hyperlipide martha, [...] Type 2 diabetes mellitus without complication E11.9 [place] [address] [address] Nov, [facility] [address] [address] Oct, Type 2 diabetes mellitus without complic ation E11.9 ; Essential hypertension I10 ; Other viral warts B07.8 ; [place] or callus L84 and Hyperlipidemia, unspecified hyperlipidemia E78.5 [facility] [address] [address] Sep, [facility] [address] [address] Sep, [facility] [address] [address] Jun, [facility] [address] [address] Jun, [facility] [address] [address] May, [facility] [address] [address] Apr, [facility] [address] [address] Feb, [facility] [address] [address] Feb, COPD exacerbation J44.1 and Acute upper respiratory infection J06.9 [facility] [address] [address] Feb, [facility] [address] [address] Feb, [facility] [address] [address] Feb, [facility] [address] [address] Feb, [facility] [address] [address] Jan, Left hip pain M25.552 [facility] [address] [id number] [place] [address] Jan, Essential hypertension I10 ; Chronic nataly n syndrome G89.4 ; Type 2 diabetes mellitus without complication E11.9 and Hyperlipidemia, unspecified hyperlipidemia E78.5 [facility] [address] [id number] [place] [address] 28 Jul, 2014 [facility] [address] [place] [id number] [place] [address] 14 Jul, 2014 [facility] [address] [id number] [place] [address] Jul, [facility] [address] [place] [id number] [place] [address] 25 Jun, 2014 [facility] [address] [place] [id number] [place] [address] Jun, [facility] [address] [place] [address] [id number] [place] [address] 24 Jun, 2014 [facility] [address] [place] [id number] [place] [address] Jun, [facility] [address] [place] [id number] [place] [address] Jun, [facility] [address] [place] [id number] [place] [address] Jun, [facility] [address] [place] [id number] [place] [address] Jun, [facility] [address] [place] [id number] [place] [address] Jun, [facility] [address] [place] [id number] [place] [address] 18 Jun, 2014 [facility] [address] [place] [id number] [place] [address] 18 Jun, 2014 [facility] [address] [place] [id number] [place] [address] Jun, [facility] [address] [place] [id number] [place] [address] Jun, [facility] [place] [facility] [address] [facility] [id number] [place] [address] Apr, [facility] [place] [facility] [address] [id number] [place] [address] Apr, [facility] [place] [facility] [address] [id number] [place] [address] Apr, [facility] [place] [facility] [address] [id number] [place] [address] Apr, [facility] [place] [facility] [address] [id number] [place] [address] Apr, [facility] [place] [facility] [address] [id number] [place] [address] Apr, [facility] [place] [facility] [address] [id number] [place] [address] Apr, [facility] [place] [facility] [address] [id number] [place] [address] Apr, [facility] [place] [facility] [address] [id number] [place] [address] Mar, [facility] [place] [facility] [address] [id number] [place] [address] Mar, [facility] [place] [facility] [address] [id number] [place] [address] Mar, [facility] [place] [facility] [address] [id number] [place] [address] Mar, [facility] [place] [facility] [address] [id number] [place] [address] Mar, [facility] [place] [facility] [address] [id number] [place] [address] 18 Mar, 2014 [facility] [place] [facility] [address] [id number] [place] [address] 15 Mar, 2014 [facility] [place] [facility] [address] [id number] [place] [address] Mar, [facility] [place] [facility] [address] [id number] [place] [address] Mar, [facility] [place] [facility] [address] [id number] [place] [address] Mar, [facility] [place] [facility] [address] [id number] [place] [address] Mar, [facility] [place] [facility] [address] [id number] [place] [address] Mar, [facility] [place] [facility] [address] [id number] [place] [address] Mar, [facility] [place] [facility] [address] [id number] [place] [address] Feb, [facility] [place] [facility] [address] [id number] [place] [address] Feb, [facility] [place] [facility] [address] [place] [id number] [place] [address] Feb, [facility] [place] [facility] [address] [id number] [place] [address] Feb, [facility] [place] [facility] [address] [id number] [place] [address] Feb, [facility] [place] [facility] [address] [id number] [place] [address] Feb, [facility] [place] [facility] [address] [id number] [place] [address] Feb, [facility] [place] [facility] [address] [id number] [place] [address] Feb, [facility] [place] [facility] [address] [id number] [place] [address] Jan, [facility] [place] [facility] [address] [place] [id number] [place] [address] Jan, [facility] [place] [facility] [address] [id number] [place] [address] Jan, [facility] [place] [facility] [address] [place] [id number] [place] [address] Jan, [facility] [place] [facility] [address] [id number] [place] [address] Jan, [facility] [place] [facility] [address] [id number] [place] [address] Jan, [facility] [place] [facility] [address] [id number] [place] [address] Jan, 2013 [facility] [place] [facility] [address] [id number] [place] [address] Jan, [facility] [place] [facility] [address] [facility] [id number] [place] [address] Jan, 2013 [facility] [place] [facility] [address] [id number] [place] [address] 30 Dec, 2013 [facility] [place] [facility] [address] [id number] [place] [address] 30 Dec, 2013 [facility] [place] [facility] [address] [id number] [place] [address] 26 Dec, 2013 [facility] [place] [facility] [address] [id number] [place] [address] 26 Sep, 2013 [facility] [place] [facility] [address] [id number] [place] [address] 16 Sep, 2013 [facility] [place] [facility] [address] [id number] [place] [address] 16 Sep, 2013 [facility] [place] [facility] [address] [id number] [place] [address] 08 Sep, 2013 [facility] [place] [facility] [address] [id number] [place] [address] 08 Sep, 2013 [facility] [place] [facility] [address] [id number] [place] [address] 04 Sep, 2013 [facility] [place] [facility] [address] [id number] [place] [address] 04 Dec, 2013 [facility] [place] [facility] [address] [id number] [place] [address] 29 Nov, 2013 [facility] [place] [facility] [address] [id number] [place] [address] Nov, [facility] [place] [facility] [address] [id number] [place] [address] Nov, [facility] [place] [facility] [address] [facility] [id number] [facility] [place] [address] Nov, [facility] [place] [facility] [address] [id number] [facility] [place] [address] Nov, [facility] [place] [facility] [address] [facility] [id number] [facility] [place] [address] Nov, [facility] [place] [facility] [address] [facility] [id number] [place] [address] Nov, [facility] [place] [facility] [address] [id number] [facility] [place] [address] Nov, [facility] [place] [facility] [address] [id number] [facility] [place] [address] Nov, [facility] [place] [facility] [address] [id number] [facility] [place] [address] Nov, [facility] [place] [facility] [address] [facility] [id number] [facility] [place] [address] Nov, [facility] [place] [facility] [address] [id number] [facility] [place] [address] Nov, [facility] [place] [facility] [address] [id number] [place] [address] Nov, [facility] [place] [facility] [address] [id number] [facility] [place] [address] Oct, [facility] [place] [facility] [address] [facility] [id number] [facility] [place] [address] Oct, [facility] [place] [facility] [address] [id number] [facility] [place] [address] Oct, [facility] [place] [facility] [address] [facility] [id number] [place] [address] Oct, [facility] [place] [facility] [address] [id number] [place] [address] Oct, [facility] [place] [facility] [address] [facility] [id number] [place] [address] Oct, [facility] [place] [facility] [address] [facility] [id number] [place] [address] Sep, [facility] [place] [facility] [address] [facility] [id number] [place] [address] Sep, [facility] [place] [facility] [address] [id number] [place] [address] Sep, [facility] [place] [facility] [address] [facility] [id number] [place] [address] Sep, [facility] [place] [facility] [address] [id number] [place] [address] Sep, [facility] [place] [facility] [address] [id number] [place] [address] Sep, [facility] [place] [facility] [address] [id number] [place] [address] Sep, [facility] [place] [facility] [address] [id number] [place] [address] Sep, [facility] [place] [facility] [address] [id number] [place] [address] Sep, [facility] [place] [facility] [address] [id number] [place] [address] Sep, [facility] [place] [facility] [address] [id number] [place] [address] Sep, [facility] [place] [facility] [address] [id number] [place] [address] Sep, [facility] [place] [facility] [address] [id number] [place] [address] August, [facility] [place] [facility] [address] [id number] [place] [address] August, [facility] [place] [facility] [address] [id number] [place] [address] Jul, [facility] [place] [facility] [address] [id number] [place] [address] Jul, [facility] [place] [facility] [address] [facility] [id number] [place] [address] Jul, [facility] [place] [facility] [address] [facility] [id number] [place] [address] 24 Jul, 2013 [facility] [place] [facility] [address] [id number] [place] [address] Jul, [facility] [place] [facility] [address] [id number] [place] [address] Jul, [facility] [place] [facility] [address] [facility] [id number] [place] [address] Jul, [facility] [address] [id number] [place] [address] 16 Jul, 2013 [facility] [address] [id number] [place] [address] Jul, [facility] [address] [id number] [place] [address] Jul, [facility] [address] [id number] [place] [address] Jul, [facility] [address] [id number] [place] [address] Jun, [facility] [address] [id number] [place] [address] Jun, [facility] [address] [id number] [place] [address] Jun, [facility] [address] [id number] [place] [address] Jun, [facility] [address] [id number] [place] [address] Jun, [facility] [address] [id number] [place] [address] Jun, [facility] [address] [id number] [place] [address] Jun, [facility] [address] [id number] [place] [address] Jun, [facility] [address] [facility] [id number] [place] [address] May, [facility] [address] [id number] [place] [address] May, [facility] [address] [id number] [place] [address] May, [facility] [address] [id number] [place] [address] May, [facility] [address] [id number] [place] [address] May, [facility] [address] [id number] [place] [address] May, [facility] [address] [id number] [place] [address] May, [facility] [address] [id number] [place] [address] May, [facility] [address] [id number] [place] [address] May, [facility] [address] [id number] [place] [address] May, [facility] [address] [id number] [place] [address] May, [facility] [address] [id number] [place] [address] May, [facility] [address] [id number] [place] [address] May, [facility] [address] [id number] [place] [address] Apr, [facility] [address] [id number] [place] [address] Apr, [facility] [address] [id number] [place] [address] Apr, [facility] [address] [facility] [id number] [place] [address] Apr, [facility] [place] [facility] [address] [facility] [id number] [place] [address] Apr, [facility] [place] [facility] [address] [id number] [place] [address] Apr, [facility] [place] [facility] [address] [id number] [place] [address] Apr, [facility] [place] [facility] [address] [facility] [id number] [place] [address] Apr, [facility] [place] [facility] [address] [id number] [place] [address] Apr, [facility] [place] [facility] [address] [id number] [place] [address] Apr, [facility] [place] [facility] [address] [id number] [place] [address] Apr, [facility] [place] [facility] [address] [id number] [place] [address] Apr, [facility] [place] [facility] [address] [id number] [place] [address] Apr, [facility] [place] [facility] [address] [id number] [place] [address] Apr, [facility] [place] [facility] [address] [id number] [place] [address] Apr, [facility] [place] [facility] [address] [facility] [id number] [place] [address] Mar, [facility] [place] [facility] [address] [facility] [id number] [place] [address] Mar, [facility] [place] [facility] [address] [id number] [place] [address] Mar, [facility] [place] [facility] [address] [id number] [place] [address] Mar, [facility] [place] [facility] [address] [id number] [place] [address] 20 Mar, 2013 [facility] [place] [facility] [address] [id number] [place] [address] 20 Mar, 2013 [facility] [place] [facility] [address] [id number] [place] [address] 17 Mar, 2013 [facility] [place] [facility] [address] [id number] [place] [address] 17 Mar, 2013 [facility] [place] [facility] [address] [id number] [place] [address] Mar, [facility] [place] [facility] [address] [id number] [place] [address] Mar, [facility] [place] [facility] [address] [id number] [place] [address] Mar, [facility] [place] [facility] [address] [id number] [place] [address] Mar, [facility] [place] [facility] [address] [id number] [place] [address] Feb, [facility] [place] [facility] [address] [id number] [place] [address] Feb, [facility] [place] [facility] [id number] [place] [address] Feb, [facility] [place] [facility] [address] [id number] [place] [address] Feb, [facility] [place] [facility] [address] [id number] [place] [address] Feb, [facility] [place] [facility] [address] [id number] [place] [address] Feb, [facility] [place] [facility] [id number] [place] [address] Feb, [facility] [place] [facility] [address] [id number] [place] [address] Feb, [facility] [place] [facility] [address] [id number] [place] [address] Jan, [facility] [place] [facility] [address] [place] [id number] [place] [address] Jan, [facility] [place] [facility] [address] [id number] [place] [address] Jan, [facility] [place] [facility] [address] [id number] [place] [address] Jan, [facility] [place] [facility] [address] [id number] [place] [address] Jan, [facility] [place] [facility] [address] [facility] [id number] [place] [address] Jan, [facility] [place] [facility] [address] [id number] [place] [address] Jan, [facility] [place] [facility] [address] [id number] [place] [address] Dec, [facility] [place] [facility] [address] [id number] [place] [address] Dec, [facility] [place] [facility] [address] [id number] [place] [address] Dec, [facility] [place] [facility] [address] [id number] [place] [address] Dec, [facility] [place] [facility] [address] [id number] [place] [address] Dec, [facility] [place] [facility] [address] [id number] [place] [address] Nov, [facility] [place] [facility] [address] [id number] [place] [address] Nov, [facility] [place] [facility] [address] [facility] [id number] [place] [address] Nov, [facility] [place] [facility] [address] [id number] [place] [address] Nov, [facility] [place] [facility] [address] [id number] [place] [address] Nov, [facility] [place] [facility] [address] [id number] [place] [address] Nov, [facility] [place] [facility] [address] [facility] [id number] [facility] [place] [address] Nov, [facility] [place] [facility] [address] [facility] [id number] [facility] [place] [address] Oct, [facility] [place] [facility] [address] [facility] [id number] [facility] [place] [address] Oct, [facility] [place] [facility] [address] [facility] [id number] [place] [address] Oct, [facility] [place] [facility] [address] [facility] [id number] [facility] [place] [address] Oct, [facility] [place] [facility] [address] [id number] [facility] [place] [address] Oct, [facility] [place] [facility] [address] [id number] [place] [address] Oct, [facility] [place] [facility] [address] [id number] [facility] [place] [address] Oct, [facility] [place] [facility] [address] [facility] [id number] [facility] [place] [address] Oct, [facility] [place] [facility] [address] [id number] [facility] [place] [address] Sep, [facility] [place] [facility] [address] [id number] [place] [address] Sep, [facility] [place] [facility] [address] [id number] [place] [address] Sep, [facility] [place] [facility] [address] [facility] [id number] [facility] [place] [address] Sep, [facility] [place] [facility] [address] [facility] [id number] [place] [address] Sep, [facility] [place] [facility] [address] [facility] [id number] [place] [address] Sep, [facility] [place] [facility] [address] [id number] [facility] [place] [address] August, [facility] [place] [facility] [address] [id number] [place] [address] August, [facility] [address] [id number] [place] [address] August, [facility] [place] [facility] [address] [id number] [place] [address] August, [facility] [place] [facility] [address] [id number] [place] [address] August, [facility] [place] [facility] [address] [id number] [place] [address] Jul, [facility] [place] [facility] [address] [id number] [place] [address] Jul, [facility] [place] [facility] [address] [id number] [place] [address] Jul, [facility] [place] [facility] [address] [id number] [place] [address] Jul, [facility] [place] [facility] [address] [id number] [place] [address] Jul, [facility] [place] [facility] [address] [id number] [place] [address] Jul, [facility] [place] [facility] [address] [id number] [place] [address] 14 Jun, 2012 [facility] [place] [facility] [address] [id number] [place] [address] Jun, [facility] [place] [facility] [address] [id number] [place] [address] Jun, [facility] [place] [facility] [address] [id number] [place] [address] Jun, [facility] [place] [facility] [address] [id number] [place] [address] 05 Jun, 2012 [facility] [place] [facility] [address] [id number] [place] [address] May, [facility] [place] [facility] [address] [id number] [place] [address] 13 May, 2012 [facility] [place] [facility] [address] [id number] [place] [address] May, [facility] [place] [facility] [address] [id number] [place] [address] Apr, [facility] [place] [facility] [address] [id number] [place] [address] Apr, [facility] [place] [facility] [address] [id number] [place] [address] Mar, [facility] [place] [facility] [address] [id number] [place] [address] Mar, [facility] [place] [facility] [address] [id number] [place] [address] Mar, [facility] [place] [facility] [address] [id number] [place] [address] Mar, [facility] [place] [facility] [address] [id number] [place] [address] Mar, [facility] [place] [facility] [address] [id number] [place] [address] Mar, [facility] [place] [facility] [address] [id number] [place] [address] Feb, [facility] [place] [facility] [address] [id number] [place] [address] Feb, [facility] [place] [facility] [address] [id number] [place] [address] Feb, [facility] [place] [facility] [address] [id number] [place] [address] Jan, [facility] [place] [facility] [address] [id number] [place] [address] Jan, [facility] [place] [facility] [address] [id number] [place] [address] Jan, [facility] [place] [facility] [address] [id number] [place] [address] 24 Jan, 2012 [facility] [place] [facility] [address] [id number] [place] [address] 24 Jan, 2012 [facility] [place] [facility] [address] [facility] [id number] [place] [address] Jan, [facility] [place] [facility] [address] [id number] [place] [address] 17 Jan, 2012 [facility] [place] [facility] [address] [id number] [place] [address] 16 Jan, 2012 [facility] [place] [facility] [address] [id number] [place] [address] Jan, [facility] [place] [facility] [address] [id number] [place] [address] Dec, [facility] [place] [facility] [address] [id number] [place] [address] Dec, [facility] [place] [facility] [address] [id number] [place] [address] Dec, [facility] [place] [facility] [address] [id number] [place] [address] Nov, [facility] [place] [facility] [address] [id number] [place] [address] Nov, [facility] [place] [facility] [address] [id number] [place] [address] Nov, [facility] [place] [facility] [address] [id number] [place] [address] Oct, [facility] [place] [facility] [address] [id number] [place] [address] Oct, [facility] [place] [facility] [address] [id number] [place] [address] Sep, [facility] [place] [facility] [address] [id number] [place] [address] Sep, [facility] [place] [facility] [address] [id number] [place] [address] 18 Sep, 2011 [facility] [place] [facility] [address] [id number] [place] [address] Sep, [facility] [place] [facility] [address] [id number] [place] [address] Sep, [facility] [place] [facility] [address] [id number] [place] [address] August, [facility] [place] [facility] [address] [id number] [place] [address] August, [facility] [place] [facility] [address] [id number] [place] [address] August, [facility] [place] [facility] [address] [id number] [place] [address] August, [facility] [place] [facility] [address] [id number] [place] [address] August, [facility] [place] [facility] [address] [id number] [place] [address] August, [facility] [place] [facility] [address] [id number] [place] [address] August, [facility] [place] [facility] [address] [id number] [place] [address] August, [facility] [place] [facility] [address] [id number] [place] [address] August, [facility] [place] [facility] [address] [id number] [place] [address] Jul, [facility] [place] [facility] [address] [id number] [place] [address] Jul, [facility] [place] [facility] [address] [id number] [place] [address] Jul, [facility] [place] [facility] [address] [id number] [place] [address] 04 Jul, 2011 [facility] [place] [facility] [address] [id number] [place] [address] 27 Jun, 2011 [facility] [place] [facility] [address] [id number] [place] [address] Jun, [facility] [place] [facility] [address] [id number] [place] [address] Jun, [facility] [place] [facility] [address] [id number] [facility] [place] [address] 27 May, 2011 [facility] [place] [facility] [address] [id number] [place] [address] 24 May, 2011 [facility] [place] [facility] [address] [facility] [id number] [facility] [place] [address] 20 May, 2011 [facility] [place] [facility] [address] [id number] [place] [address] 16 May, 2011 [facility] [place] [facility] [address] [facility] [id number] [facility] [place] [address] 15 May, 2011 [facility] [place] [facility] [address] [id number] [place] [address] 14 May, 2011 [facility] [place] [facility] [address] [id number] [place] [address] 10 May, 2011 [facility] [place] [facility] [address] [id number] [place] [address] 09 May, 2011 [facility] [place] [facility] [address] [id number] [place] [address] 02 May, 2011 [facility] [place] [facility] [address] [id number] [place] [address] 30 Apr, 2011 [facility] [place] [facility] [address] [id number] [place] [address] Apr, [facility] [place] [facility] [address] [id number] [place] [address] Apr, [facility] [place] [facility] [address] [id number] [place] [address] 17 Apr, 2011 [facility] [place] [facility] [address] [id number] [place] [address] 16 Apr, 2011 [facility] [place] [facility] [address] [id number] [place] [address] 13 Apr, 2011 [facility] [place] [facility] [address] [id number] [place] [address] 09 Apr, 2011 [facility] [place] [facility] [id number] [place] [address] Apr, [facility] [id number] [place] [address] Apr, [facility] [id number] [place] [address] Apr, [facility] [id number] [place] [address] Apr, [facility] [address] [address] Mar, [facility] [address] [address] Mar, [facility] [address] [address] Mar, [facility] [address] [address] Mar, [facility] [address] [address] Feb, [facility] [id number] [place] [address] Feb, [facility] [address] [address] Jan, [facility] [id number] [place] [address] Nov, IMMUNIZATIONS No Known Immunizations SOCIAL HISTORY Never Assessed REASON FOR VISIT PLAN OF CARE VITAL SIGNS Height 67 in 2013-06-05 Weight 190.8 lbs 2013-06-05 Temperature 98.4 degrees Fahrenheit 2013-06-05 Heart Rate 120 bpm 2013-06-05 Respiratory Rate 28 2013-06-05 Blood pressure systolic 122 mmHg 2013-06-05 Blood pressure diastolic 78 mmHg 2013-06-05 MEDICATIONS Unknown Medications RESULTS No Results PROCEDURES Procedure Date Ordered Result Body Site GLYCATED HEMOGLOBIN TEST Jun 05, 2013 MICROALBUMIN, SEMIQUANT Jun 05, 2013 MICROALBUMIN, QUANTITATIVE Jun 05, 2013 DRUG SCREEN, QUALITATE/MULTI Jun 05, 2013 INSTRUCTIONS MEDICATIONS ADMINISTERED No Known Medications [...] laser treatment for glaucoma Hospitalization History ED [place]- Right side and back pain related to fall, hurts to breathe (ED at 7 pm) 06/07/2017 Hospitalization History [facility] [place], [place]- Anxiety ( went to ED at 1200) 06/07/2017 Hospitalization History COPD exacerbation - Gerald Pizano 2017 Hospitalization History Blood clot, port placement - Gerald Pizano 09/2017
--- OUTSIDE RECORDS SUMMARY | 2019-09-01 14:30 | XMS REPORT ---
Author Author RADHA Sophianaren OLIVA [facility] Address [address] [place] [address] Care Team Providers Care Beater Head Name Role Phone RADHAGASPER MCPHERSONY Unavailable PROBLEMS Type Condition ICD9-CM Code EXC08-KA Code Onset Dates Condition S tatus SNOMED Code Problem Proteinuria R80.9 Active 19037206 Problem Essential hypertension I10 Active 10684892 Problem Anxiety F41.9 Active 61672474 Problem Type 2 diabetes mellitus without complication E11. 9 Active 16345139 Problem Hyperlipidemia, unspecified hyperlipidemia E78.5 Active 27689262 Problem Major depressive disorder, recurrent episode, un specified severity F33.9 Active 78455294 Problem Sciatica, unspecified laterality M54.30 Active 33010259 Problem Acute cystitis with hematuria N30.01 Active 23757886 Problem Chronic pain syndrome G89.4 Active 286112346 Problem Exacerbation of systemic lupus M32.9 Active 27562902 Problem Generalized abdominal pain R10.84 Act sree 223841326 Problem Carpal tunnel syndrome, right upper limb G56.01 Active 47275668 Problem History of small bowel obstruction Z87.19 Active 550086612 Problem History of pulmonary embolism Z86.711 Active 352466253 Problem Presence of IVC filter Z95.828 Active 867616095 Problem Port catheter in place Z95.828 Active 213632012 Problem Gastroesophageal reflux disease, esophagitis pre sence not specified K21.9 Active 870866945 Problem Chronic pancreatitis, unspecified pancreatitis type K86.1 Active 516085702 Problem Hypothyroidism, unspecified type E03.9 Active 52686476 Problem Vitamin D deficiency E55.9 Active 40662418 Problem Nausea R11.0 Active 054960494 Problem Pneumonia due to infectious organism, unspecified laterality, unspecified part of lung J18.9 Active 312 003699 Problem Gastroesophageal reflux disease without esophagitis K21.9 Active 036561587 Problem Violation of controlled substance agreement Z91.14 Active 362913932 Problem Obstructive sleep apnea G47.33 Active 10148034 Problem Hypertension, benign I10 Active 38372226 Problem Venous insufficiency I87.2 Active 34448728 Problem Chronic obstructive pulmonary disease, unspecified COPD ty pe J44.9 Active 48072700 Problem Tobacco abuse counseling Z71.6 Activ e 99369638 Problem 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 A ctive 205946156 Problem Opiate dependence, continuous F11.20 Active 235444399 Problem Cannabis abuse with physiological dependence F12.1 0 Active 57096340 ALLERGIES No Information ENCOUNTERS Encounter Location Date Diagnosis [facility] [address] [address] May, [place] [address] [address] Apr, Tobacco abuse Z72.0 ; Hypertension, stefan gn I10 and Tobacco abuse counseling Z71.6 [place] [address] [address] Sep, [place] [address] [address] Sep, [facility] [address] [address] Sep, Essential hypertension I10 [place] [address] [address] Sep, [facility] [address] [address] Sep, [place] [address] [address] Sep, Neck mass R22.1 [facility] [address] [address] August, Neck mass R22.1 [facility] [address] [facility] [id number] [address] [place] [address] Feb, Left foot pain M79.672 [facility] [address] [address] Jun, Chronic pain syndrome G89.4 [facility] [address] [id number] [place] [id number] May, [facility] [address] [place] [id number] [place] [address] May, [facility] [address] [place] [id number] [place] [address] May, Chronic pain syndrome G89.4 [facility] [address] [place] [id number] [place] [address] May, [facility] [address] [facility] [id number] [address] [place] [address] 10 May, 2017 Encounter for immunization Z 23 and Laceration of left index finger without foreign body without damage to nail, initial encounter S61.211A [place] [address] [address] 09 May, 2017 Chronic pain syndrome G89.4 [facility] [address] [place] [id number] [place] [address] May, [place] [address] [address] Apr, Cannabis abuse with physiological depend ence F12.10 ; Violation of controlled substance agreement Z91.14 and Opiate dependence, continuous F11.20 [place] [address] [place] [id number] [place] [address] Apr, Type 2 diabetes mellitus without complic ation E11.9 [facility] [address] [place] [id number] [place] [address] Apr, [place] [address] [address] Apr, Chronic pain syndrome G89.4 [facility] [address] [place] [id number] [place] [address] Apr, Viral syndrome B34.9 [facility] [address] [address] Apr, [facility] [address] [address] Mar, Chronic pain syndrome G89.4 [facility] [address] [address] Mar, [facility] [address] [address] Mar, [facility] [address] [address] Feb, Essential hypertension I10 ; Chronic nataly n syndrome G89.4 ; Hyperlipidemia, unspecified hyperlipidemia E78.5 ; 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 and Encounter for immunization Z23 [place] [address] [address] Feb, Chronic pain syndrome G89.4 [facility] [address] [address] Jan, Chronic pain syndrome G89.4 [facility] [address] [address] Jan, [facility] [address] [address] Jan, Bronchitis J40 ; Port catheter in place Z95.828 and Chronic pain syndrome G89.4 [facility] [address] [id number] [place] [id number] Jan, [facility] [address] [address] 22 Dec, 2016 Chronic pain syndrome G89.4 [facility] [address] [address] 18 Dec, 2016 Chronic pain syndrome G89.4 [facility] [address] [address] 08 Dec, 2016 [facility] [address] [address] Nov, [facility] [address] [address] Nov, Chronic pain syndrome G89.4 [facility] [address] [address] Oct, Chronic pain syndrome G89.4 [facility] [address] [address] Oct, [facility] [address] [address] Sep, Chronic pain syndrome G89.4 [facility] [address] [address] Sep, Exacerbation of systemic lupus M32.9 [facility] [address] [address] Sep, [facility] [address] [address] Sep, [facility] [address] [address] Sep, Nausea R11.0 [facility] [address] [address] August, Chronic pain syndrome G89.4 [facility] [address] [address] August, [facility] [address] [address] August, Chronic pain syndrome G89.4 [facility] [address] [address] Jul, Pneumonia due to infectious organism, un specified laterality, unspecified part of lung J18.9 and Tobacco abuse counseling Z71.6 [facility] [address] [address] Jul, Chronic pain syndrome G89.4 [facility] [address] [address] Jun, Essential hypertension I10 [facility] [address] [address] Jun, Pneumonia due to infectious organism, un specified laterality, unspecified part of lung J18.9 [place] [address] [address] Jun, Chronic pain syndrome G89.4 [place] [address] [address] May, Essential hypertension I10 ; Type 2 [...] and Gastroesophageal reflux disease without esophagitis K21.9 [place] [address] [address] Apr, [address] [address] Apr, Pneumonia due to infectious organism, un specified laterality, unspecified part of lung J18.9 and Nausea R11.[address] [address] Apr, Essential hypertension I10 ; Chronic nataly n syndrome G89.4 ; Type 2 diabetes mellitus without complication E11.9 ; Hyperlipidemia, unspecified hyperlipidemia E78.5 ; Major depressive disorder, recurrent episode, unspecified severity F33.9 ; Sciatica, unspecified laterality M54.30 ; Chronic obstructive pulmonary disease, unspecified COPD type J44.9 ; Pneumonia due to infectious organism, unspecified laterality, unspecified part of lung J18.9 and Nausea R11.0 [facility] [address] [facility] [id number] [address] [place] [address] Mar, [address] [address] Mar, [place] [address] [address] Mar, [place] [address] [address] Mar, Anxiety F41.9 and Major depressive disor rita, recurrent episode, unspecified severity F33.9 [place] [address] [address] Mar, [place] [address] [address] Mar, [place] [address] [address] Mar, Generalized abdominal pain R10.84 ; Acut e cystitis with hematuria N30.01 and Essential hypertension I10 [facility] [address] [place] [address] Mar, Sore throat J02.9 and Exacer bation of systemic lupus M32.9 [place] [address] [address] Feb, Type 2 diabetes mellitus without complic [...] reflux disease, esophagitis presence not specified K21.9 [place] [address] [address] Feb, [place] [address] [address] Jan, [facility] [place] [id number] [place] [address] Jan, Right arm pain M79.601 [address] of right wrist, initial encounter S66.911A [place] [address] [address] Jan, [facility] [address] [facility] [id number] [address] [place] [address] 30 Dec, 2015 Generalized abdominal pain R 10.84 [place] [address] [address] Dec, Adenopathy R59.1 [place] [address] [address] 19 Dec, 2015 Bronchitis J40 [place] [address] [address] 14 Dec, 2015 [place] [address] [address] Dec, Essential hypertension I10 [place] [address] [address] Nov, [place] [address] [address] Nov, [place] [address] [address] Nov, Essential hypertension I10 ; Hyperlipide martha, [...] Type 2 diabetes mellitus without complication E11.9 [place] [address] [address] Nov, [facility] [address] [address] Oct, Type 2 diabetes mellitus without complic ation E11.9 ; Essential hypertension I10 ; Other viral warts B07.8 ; [place] or callus L84 and Hyperlipidemia, unspecified hyperlipidemia E78.5 [facility] [address] [address] Sep, [facility] [address] [address] Sep, [facility] [address] [address] Jun, [facility] [address] [address] Jun, [facility] [address] [address] May, [facility] [address] [address] Apr, [facility] [address] [address] Feb, [facility] [address] [address] Feb, COPD exacerbation J44.1 and Acute upper respiratory infection J06.9 [facility] [address] [address] Feb, [facility] [address] [address] Feb, [facility] [address] [address] Feb, [facility] [address] [address] Feb, [facility] [address] [address] Jan, Left hip pain M25.552 [facility] [address] [id number] [place] [address] Jan, Essential hypertension I10 ; Chronic nataly n syndrome G89.4 ; Type 2 diabetes mellitus without complication E11.9 and Hyperlipidemia, unspecified hyperlipidemia E78.5 [facility] [address] [id number] [place] [address] 28 Jul, 2014 [facility] [address] [place] [id number] [place] [address] 14 Jul, 2014 [facility] [address] [id number] [place] [address] Jul, [facility] [address] [place] [id number] [place] [address] 25 Jun, 2014 [facility] [address] [place] [id number] [place] [address] Jun, [facility] [address] [place] [id number] [place] [address] 24 Jun, 2014 [facility] [address] [place] [id number] [place] [address] Jun, [facility] [address] [place] [id number] [place] [address] Jun, [facility] [address] [place] [id number] [place] [address] Jun, [facility] [address] [place] [id number] [place] [address] Jun, [facility] [address] [place] [id number] [place] [address] Jun, [facility] [address] [place] [id number] [place] [address] 18 Jun, 2014 [facility] [address] [place] [id number] [place] [address] 18 Jun, 2014 [facility] [address] [place] [id number] [place] [address] Jun, [facility] [address] [place] [id number] [place] [address] Jun, [facility] [place] [facility] [address] [facility] [id number] [place] [address] Apr, [facility] [place] [facility] [address] [id number] [place] [address] Apr, [facility] [place] [facility] [address] [id number] [place] [address] Apr, [facility] [place] [facility] [address] [id number] [place] [address] Apr, [facility] [place] [facility] [address] [id number] [place] [address] Apr, [facility] [place] [facility] [address] [id number] [place] [address] Apr, [facility] [place] [facility] [address] [id number] [place] [address] Apr, [facility] [place] [facility] [address] [id number] [place] [address] Apr, [facility] [place] [facility] [address] [id number] [place] [address] Mar, [facility] [place] [facility] [address] [id number] [place] [address] Mar, [facility] [place] [facility] [address] [id number] [place] [address] Mar, [facility] [place] [facility] [address] [id number] [place] [address] Mar, [facility] [place] [facility] [address] [id number] [place] [address] Mar, [facility] [place] [facility] [address] [id number] [place] [address] 18 Mar, 2014 [facility] [place] [facility] [address] [id number] [place] [address] 15 Mar, 2014 [facility] [place] [facility] [address] [id number] [place] [address] Mar, [facility] [place] [facility] [address] [id number] [place] [address] Mar, [facility] [place] [facility] [address] [id number] [place] [address] Mar, [facility] [place] [facility] [address] [id number] [place] [address] Mar, [facility] [place] [facility] [address] [id number] [place] [address] Mar, [facility] [place] [facility] [address] [id number] [place] [address] Mar, [facility] [place] [facility] [address] [id number] [place] [address] Feb, [facility] [place] [facility] [address] [id number] [place] [address] Feb, [facility] [place] [facility] [address] [place] [id number] [place] [address] Feb, [facility] [place] [facility] [address] [id number] [place] [address] Feb, [facility] [place] [facility] [address] [id number] [place] [address] Feb, [facility] [place] [facility] [address] [id number] [place] [address] Feb, [facility] [place] [facility] [address] [id number] [place] [address] Feb, [facility] [place] [facility] [address] [id number] [place] [address] Feb, [facility] [place] [facility] [address] [id number] [place] [address] Jan, [facility] [place] [facility] [address] [place] [id number] [place] [address] Jan, [facility] [place] [facility] [address] [id number] [place] [address] Jan, [facility] [place] [facility] [address] [place] [id number] [place] [address] Jan, [facility] [place] [facility] [address] [id number] [place] [address] Jan, [facility] [place] [facility] [address] [id number] [place] [address] Jan, [facility] [place] [facility] [address] [id number] [place] [address] Jan, 2013 [facility] [place] [facility] [address] [id number] [place] [address] Jan, [facility] [place] [facility] [address] [facility] [id number] [place] [address] Jan, 2013 [facility] [place] [facility] [address] [id number] [place] [address] 30 Dec, 2013 [facility] [place] [facility] [address] [id number] [place] [address] 30 Dec, 2013 [facility] [place] [facility] [address] [id number] [place] [address] 26 Dec, 2013 [facility] [place] [facility] [address] [id number] [place] [address] 26 Sep, 2013 [facility] [place] [facility] [address] [id number] [place] [address] 16 Sep, 2013 [facility] [place] [facility] [address] [id number] [place] [address] 16 Sep, 2013 [facility] [place] [facility] [address] [id number] [place] [address] 08 Sep, 2013 [facility] [place] [facility] [address] [id number] [place] [address] 08 Sep, 2013 [facility] [place] [facility] [address] [id number] [place] [address] 04 Sep, 2013 [facility] [place] [facility] [address] [id number] [place] [address] 04 Dec, 2013 [facility] [place] [facility] [address] [id number] [place] [address] 29 Nov, 2013 [facility] [place] [facility] [address] [id number] [place] [address] Nov, [facility] [place] [facility] [address] [id number] [place] [address] Nov, [facility] [place] [facility] [address] [facility] [id number] [facility] [place] [address] Nov, [facility] [place] [facility] [address] [id number] [facility] [place] [address] Nov, [facility] [place] [facility] [address] [facility] [id number] [facility] [place] [address] Nov, [facility] [place] [facility] [address] [facility] [id number] [place] [address] Nov, [facility] [place] [facility] [address] [id number] [facility] [place] [address] Nov, [facility] [place] [facility] [address] [id number] [facility] [place] [address] Nov, [facility] [place] [facility] [address] [id number] [facility] [place] [address] Nov, [facility] [place] [facility] [address] [facility] [id number] [facility] [place] [address] Nov, [facility] [place] [facility] [address] [id number] [facility] [place] [address] Nov, [facility] [place] [facility] [address] [id number] [place] [address] Nov, [facility] [place] [facility] [address] [id number] [facility] [place] [address] Oct, [facility] [place] [facility] [address] [facility] [id number] [facility] [place] [address] Oct, [facility] [place] [facility] [address] [id number] [facility] [place] [address] Oct, [facility] [place] [facility] [address] [facility] [id number] [place] [address] Oct, [facility] [place] [facility] [address] [id number] [place] [address] Oct, [facility] [place] [facility] [address] [facility] [id number] [place] [address] Oct, [facility] [place] [facility] [address] [facility] [id number] [place] [address] Sep, [facility] [place] [facility] [address] [facility] [id number] [place] [address] Sep, [facility] [place] [facility] [address] [id number] [place] [address] Sep, [facility] [place] [facility] [address] [facility] [id number] [place] [address] Sep, [facility] [place] [facility] [address] [id number] [place] [address] Sep, [facility] [place] [facility] [address] [id number] [place] [address] Sep, [facility] [place] [facility] [id number] [place] [address] Sep, [facility] [id number] [place] [address] Sep, [facility] [id number] [place] [address] Sep, [facility] [id number] [place] [address] Sep, [facility] [id number] [place] [address] Sep, [facility] [id number] [place] [address] Sep, [facility] [id number] [place] [address] August, [facility] [id number] [place] [address] August, [facility] [id number] [place] [address] Jul, [facility] [id number] [place] [address] Jul, [facility] [address] [facility] [place] [id number] [place] [address] Jul, [facility] [address] [facility] [place] [id number] [place] [address] 24 Jul, 2013 [facility] [id number] [place] [address] Jul, [facility] [id number] [place] [address] Jul, [facility] [address] [facility] [place] [id number] [place] [address] Jul, [facility] [id number] [place] [address] 16 Jul, 2013 [facility] [id number] [place] [address] Jul, [facility] [id number] [place] [address] Jul, [facility] [id number] [place] [address] Jul, [facility] [id number] [place] [address] Jun, [facility] [id number] [place] [address] Jun, [facility] [id number] [place] [address] Jun, [facility] [id number] [place] [address] Jun, [facility] [id number] [place] [address] Jun, [facility] [id number] [place] [address] Jun, [facility] [place] [facility] [id number] [place] [address] Jun, [facility] [place] [facility] [id number] [place] [address] Jun, [facility] [place] [facility] [address] [facility] [id number] [place] [address] May, [facility] [place] [facility] [id number] [place] [address] May, [facility] [place] [facility] [id number] [place] [address] May, [facility] [place] [facility] [id number] [place] [address] May, [facility] [place] [facility] [id number] [place] [address] May, [facility] [place] [facility] [id number] [place] [address] May, [facility] [place] [facility] [id number] [place] [address] May, [facility] [place] [facility] [id number] [place] [address] May, [facility] [place] [facility] [id number] [place] [address] May, [facility] [place] [facility] [id number] [place] [address] May, [facility] [place] [facility] [id number] [place] [address] May, [facility] [place] [facility] [id number] [place] [address] May, [facility] [place] [facility] [id number] [place] [address] May, [facility] [place] [facility] [id number] [place] [address] Apr, [facility] [place] [facility] [id number] [place] [address] Apr, [facility] [place] [facility] [id number] [place] [address] Apr, [facility] [address] [facility] [id number] [place] [address] Apr, [facility] [place] [facility] [address] [facility] [id number] [place] [address] Apr, [facility] [place] [facility] [id number] [place] [address] Apr, [facility] [place] [facility] [id number] [place] [address] Apr, [facility] [place] [facility] [address] [facility] [id number] [place] [address] Apr, [facility] [place] [facility] [id number] [place] [address] Apr, [facility] [place] [facility] [id number] [place] [address] Apr, [facility] [place] [facility] [id number] [place] [address] Apr, [facility] [place] [facility] [id number] [place] [address] Apr, [facility] [place] [facility] [id number] [place] [address] Apr, [facility] [place] [facility] [id number] [place] [address] Apr, [facility] [place] [facility] [id number] [place] [address] Apr, [facility] [place] [facility] [address] [facility] [id number] [place] [address] Mar, [facility] [place] [facility] [address] [facility] [id number] [place] [address] Mar, [facility] [place] [facility] [id number] [place] [address] Mar, [facility] [place] [facility] [id number] [place] [address] Mar, [facility] [place] [facility] [id number] [place] [address] 20 Mar, 2013 [facility] [place] [facility] [id number] [place] [address] 20 Mar, 2013 [facility] [place] [facility] [id number] [place] [address] 17 Mar, 2013 [facility] [place] [facility] [id number] [place] [address] 17 Mar, 2013 [facility] [place] [facility] [id number] [place] [address] Mar, [facility] [place] [facility] [id number] [place] [address] Mar, [facility] [place] [facility] [id number] [place] [address] Mar, [facility] [place] [facility] [id number] [place] [address] Mar, [facility] [place] [facility] [id number] [place] [address] Feb, [facility] [place] [facility] [id number] [place] [address] Feb, [facility] [place] [facility] [id number] [place] [address] Feb, [facility] [place] [facility] [id number] [place] [address] Feb, [facility] [place] [facility] [id number] [place] [address] Feb, [facility] [place] [facility] [id number] [place] [address] Feb, [facility] [place] [facility] [id number] [place] [address] Feb, [facility] [place] [facility] [id number] [place] [address] Feb, [facility] [place] [facility] [id number] [place] [address] Jan, [facility] [place] [facility] [address] [id number] [place] [address] Jan, [facility] [place] [facility] [id number] [place] [address] Jan, [facility] [place] [facility] [id number] [place] [address] Jan, [facility] [place] [facility] [id number] [place] [address] Jan, [facility] [place] [facility] [address] [facility] [id number] [place] [address] Jan, [facility] [place] [facility] [id number] [place] [address] Jan, [facility] [place] [facility] [id number] [place] [address] Dec, [facility] [place] [facility] [id number] [place] [address] Dec, [facility] [place] [facility] [id number] [place] [address] Dec, [facility] [place] [facility] [id number] [place] [address] Dec, [facility] [place] [facility] [id number] [place] [address] Dec, [facility] [place] [facility] [id number] [place] [address] Nov, [facility] [place] [facility] [id number] [place] [address] Nov, [facility] [place] [facility] [address] [facility] [id number] [place] [address] Nov, [facility] [place] [facility] [id number] [place] [address] Nov, [facility] [place] [facility] [id number] [place] [address] Nov, [facility] [place] [facility] [id number] [place] [address] Nov, [facility] [place] [facility] [address] [facility] [id number] [facility] [place] [address] Nov, [facility] [place] [facility] [address] [facility] [id number] [facility] [place] [address] Oct, [facility] [place] [facility] [address] [facility] [id number] [facility] [place] [address] Oct, [facility] [place] [facility] [address] [facility] [id number] [place] [address] Oct, [facility] [place] [facility] [address] [facility] [id number] [facility] [place] [address] Oct, [facility] [place] [facility] [id number] [facility] [place] [address] Oct, [facility] [place] [facility] [id number] [place] [address] Oct, [facility] [place] [facility] [id number] [facility] [place] [address] Oct, [facility] [place] [facility] [address] [facility] [id number] [facility] [place] [address] Oct, [facility] [place] [facility] [id number] [facility] [place] [address] Sep, [facility] [place] [facility] [id number] [place] [address] Sep, [facility] [place] [facility] [id number] [place] [address] Sep, [facility] [place] [facility] [address] [facility] [id number] [facility] [place] [address] Sep, [facility] [place] [facility] [address] [facility] [id number] [place] [address] Sep, [facility] [place] [facility] [address] [facility] [id number] [place] [address] Sep, [facility] [place] [facility] [id number] [facility] [place] [address] August, [facility] [place] [facility] [id number] [place] [address] August, [facility] [id number] [place] [address] August, [facility] [place] [facility] [id number] [place] [address] August, [facility] [place] [facility] [id number] [place] [address] August, [facility] [place] [facility] [id number] [place] [address] Jul, [facility] [place] [facility] [id number] [place] [address] Jul, [facility] [place] [facility] [id number] [place] [address] Jul, [facility] [place] [facility] [id number] [place] [address] Jul, [facility] [place] [facility] [id number] [place] [address] Jul, [facility] [place] [facility] [id number] [place] [address] Jul, [facility] [place] [facility] [id number] [place] [address] 14 Jun, 2012 [facility] [place] [facility] [id number] [place] [address] Jun, [facility] [place] [facility] [id number] [place] [address] Jun, [facility] [place] [facility] [id number] [place] [address] Jun, [facility] [place] [facility] [id number] [place] [address] 05 Jun, 2012 [facility] [place] [facility] [id number] [place] [address] May, [facility] [place] [facility] [id number] [place] [address] 13 May, 2012 [facility] [place] [facility] [id number] [place] [address] May, [facility] [place] [facility] [id number] [place] [address] Apr, [facility] [place] [facility] [id number] [place] [address] Apr, [facility] [place] [facility] [id number] [place] [address] Mar, [facility] [place] [facility] [id number] [place] [address] Mar, [facility] [place] [facility] [id number] [place] [address] Mar, [facility] [place] [facility] [id number] [place] [address] Mar, [facility] [place] [facility] [id number] [place] [address] Mar, [facility] [place] [facility] [id number] [place] [address] Mar, [facility] [place] [facility] [id number] [place] [address] Feb, [facility] [place] [facility] [id number] [place] [address] Feb, [facility] [place] [facility] [id number] [place] [address] Feb, [facility] [place] [facility] [id number] [place] [address] Jan, [facility] [place] [facility] [id number] [place] [address] Jan, [facility] [place] [facility] [id number] [place] [address] Jan, [facility] [place] [facility] [id number] [place] [address] 24 Jan, 2012 [facility] [place] [facility] [id number] [place] [address] 24 Jan, 2012 [facility] [place] [facility] [address] [facility] [id number] [place] [address] Jan, [facility] [place] [facility] [id number] [place] [address] 17 Jan, 2012 [facility] [place] [facility] [id number] [place] [address] 16 Jan, 2012 [facility] [place] [facility] [id number] [place] [address] Jan, [facility] [place] [facility] [id number] [place] [address] Dec, [facility] [place] [facility] [id number] [place] [address] Dec, [facility] [place] [facility] [id number] [place] [address] Dec, [facility] [place] [facility] [id number] [place] [address] Nov, [facility] [place] [facility] [id number] [place] [address] Nov, [facility] [place] [facility] [id number] [place] [address] Nov, [facility] [place] [facility] [id number] [place] [address] Oct, [facility] [place] [facility] [id number] [place] [address] Oct, [facility] [place] [facility] [id number] [place] [address] Sep, [facility] [place] [facility] [id number] [place] [address] Sep, [facility] [place] [facility] [id number] [place] [address] 18 Sep, 2011 [facility] [place] [facility] [id number] [place] [address] Sep, [facility] [place] [facility] [id number] [place] [address] Sep, [facility] [place] [facility] [address] [id number] [place] [address] August, [facility] [place] [facility] [id number] [place] [address] August, [facility] [place] [facility] [id number] [place] [address] August, [facility] [place] [facility] [id number] [place] [address] August, [facility] [place] [facility] [id number] [place] [address] August, [facility] [place] [facility] [id number] [place] [address] August, [facility] [place] [facility] [id number] [place] [address] August, [facility] [place] [facility] [id number] [place] [address] August, [facility] [place] [facility] [id number] [place] [address] August, [facility] [place] [facility] [id number] [place] [address] Jul, [facility] [place] [facility] [id number] [place] [address] Jul, [facility] [place] [facility] [id number] [place] [address] Jul, [facility] [place] [facility] [id number] [place] [address] 04 Jul, 2011 [facility] [place] [facility] [id number] [place] [address] 27 Jun, 2011 [facility] [place] [facility] [id number] [place] [address] Jun, [facility] [place] [facility] [id number] [place] [address] Jun, [facility] [place] [facility] [address] [id number] [facility] [place] [address] 27 May, 2011 [facility] [place] [facility] [address] [id number] [place] [address] 24 May, 2011 [facility] [place] [facility] [address] [facility] [id number] [facility] [place] [address] 20 May, 2011 [facility] [place] [facility] [address] [id number] [place] [address] 16 May, 2011 [facility] [place] [facility] [address] [facility] [id number] [facility] [place] [address] 15 May, 2011 [facility] [place] [facility] [id number] [place] [address] 14 May, 2011 [facility] [place] [facility] [id number] [place] [address] 10 May, 2011 [facility] [place] [facility] [id number] [place] [address] 09 May, 2011 [facility] [place] [facility] [id number] [place] [address] 02 May, 2011 [facility] [place] [facility] [id number] [place] [address] 30 Apr, 2011 [facility] [place] [facility] [id number] [place] [address] Apr, [facility] [place] [facility] [id number] [place] [address] Apr, [facility] [place] [facility] [id number] [place] [address] 17 Apr, 2011 [facility] [place] [facility] [address] [id number] [place] [address] 16 Apr, 2011 [facility] [place] [facility] [id number] [place] [address] 13 Apr, 2011 [facility] [place] [facility] [id number] [place] [address] 09 Apr, 2011 [facility] [place] [facility] [id number] [place] [address] Apr, [facility] [id number] [place] [address] Apr, [facility] [id number] [place] [address] Apr, [facility] [address] [address] Apr, [facility] [address] [address] Mar, [facility] [address] [address] Mar, [facility] [address] [address] Mar, [facility] [address] [address] Mar, [facility] [address] [address] Feb, [facility] [id number] [place] [address] Feb, [facility] [address] [address] Jan, [facility] [address] [address] Nov, IMMUNIZATIONS No Known Immunizations SOCIAL HISTORY [...] laser treatment for glaucoma Hospitalization History ED [place]- Right side and back pain related to fall, hurts to breathe (ED at 7 pm) 06/07/[address] [facility] ED [place]- Anxiety ( went to ED at 1200) 06/07/2017 Hospitalization History COPD exacerbation - Gerald Pizano 2017 Hospitalization History Blood clot, port placement - [facility] Pizano 09/2017
--- OUTSIDE RECORDS SUMMARY | 2019-09-01 14:30 | XMS REPORT ---
Author Author RADHA Sophianaren OLIVA [facility] Address [address] [place] [address] Care Team Providers Care Process Control Supervisor Name Role Phone RADHAGASPER MCPHERSONY Unavailable PROBLEMS Type Condition ICD9-CM Code DKR83-MD Code Onset Dates Condition S tatus SNOMED Code Problem Proteinuria R80.9 Active 56847923 Problem Essential hypertension I10 Active 27189675 Problem Anxiety F41.9 Active 04057395 Problem Type 2 diabetes mellitus without complication E11. 9 Active 79190608 Problem Hyperlipidemia, unspecified hyperlipidemia E78.5 Active 22809002 Problem Major depressive disorder, recurrent episode, un specified severity F33.9 Active 92673258 Problem Sciatica, unspecified laterality M54.30 Active 70584790 Problem Acute cystitis with hematuria N30.01 Active 03336620 Problem Chronic pain syndrome G89.4 Active 878297850 Problem Exacerbation of systemic lupus M32.9 Active 60007948 Problem Generalized abdominal pain R10.84 Act sree 127750317 Problem Carpal tunnel syndrome, right upper limb G56.01 Active 12512356 Problem History of small bowel obstruction Z87.19 Active 857138336 Problem History of pulmonary embolism Z86.711 Active 256656797 Problem Presence of IVC filter Z95.828 Active 949621515 Problem Port catheter in place Z95.828 Active 973551201 Problem Gastroesophageal reflux disease, esophagitis pre sence not specified K21.9 Active 303437685 Problem Chronic pancreatitis, unspecified pancreatitis type K86.1 Active 500069763 Problem Hypothyroidism, unspecified type E03.9 Active 62340356 Problem Vitamin D deficiency E55.9 Active 78503662 Problem Nausea R11.0 Active 392661750 Problem Pneumonia due to infectious organism, unspecified laterality, unspecified part of lung J18.9 Active 312 381295 Problem Gastroesophageal reflux disease without esophagitis K21.9 Active 064411444 Problem Violation of controlled substance agreement Z91.14 Active 695002127 Problem Obstructive sleep apnea G47.33 Active 77643272 Problem Hypertension, benign I10 Active 26268149 Problem Venous insufficiency I87.2 Active 17071443 Problem Chronic obstructive pulmonary disease, unspecified COPD ty pe J44.9 Active 95155086 Problem Tobacco abuse counseling Z71.6 Activ e 64570939 Problem 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 A ctive 238684562 Problem Opiate dependence, continuous F11.20 Active 095889061 Problem Cannabis abuse with physiological dependence F12.1 0 Active 15666415 ALLERGIES No Information ENCOUNTERS Encounter Location Date Diagnosis [facility] [address] [address] May, [place] [address] [address] Apr, Tobacco abuse Z72.0 ; Hypertension, stefan gn I10 and Tobacco abuse counseling Z71.6 [place] [address] [address] Sep, [place] [address] [address] Sep, [facility] [address] [address] Sep, Essential hypertension I10 [place] [address] [address] Sep, [facility] [address] [address] Sep, [place] [address] [address] Sep, Neck mass R22.1 [facility] [address] [address] August, Neck mass R22.1 [facility] [address] [facility] [id number] [address] [place] [address] Feb, Left foot pain M79.672 [facility] [address] [address] Jun, Chronic pain syndrome G89.4 [facility] [address] [id number] [place] [id number] May, [facility] [address] [place] [id number] [place] [address] May, [facility] [address] [place] [address] [id number] [place] [address] May, Chronic pain syndrome G89.4 [facility] [address] [place] [id number] [place] [address] May, [facility] [address] [facility] [id number] [address] [place] [address] 10 May, 2017 Encounter for immunization Z 23 and Laceration of left index finger without foreign body without damage to nail, initial encounter S61.211A [place] [address] [address] 09 May, 2017 Chronic pain syndrome G89.4 [facility] [address] [address] [id number] [place] [address] May, [place] [address] [address] Apr, Cannabis abuse with physiological depend ence F12.10 ; Violation of controlled substance agreement Z91.14 and Opiate dependence, continuous F11.20 [place] [address] [address] [id number] [place] [address] Apr, Type 2 diabetes mellitus without complic ation E11.9 [facility] [address] [place] [address] [id number] [place] [address] Apr, [place] [address] [address] Apr, Chronic pain syndrome G89.4 [facility] [address] [place] [id number] [place] [address] Apr, Viral syndrome B34.9 [facility] [address] [address] Apr, [facility] [address] [address] Mar, Chronic pain syndrome G89.4 [facility] [address] [address] Mar, [facility] [address] [address] Mar, [facility] [address] [address] Feb, Essential hypertension I10 ; Chronic nataly n syndrome G89.4 ; Hyperlipidemia, unspecified hyperlipidemia E78.5 ; 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 and Encounter for immunization Z23 [place] [address] [address] Feb, Chronic pain syndrome G89.4 [facility] [address] [address] Jan, Chronic pain syndrome G89.4 [facility] [address] [address] Jan, [facility] [address] [address] Jan, Bronchitis J40 ; Port catheter in place Z95.828 and Chronic pain syndrome G89.4 [facility] [address] [id number] [place] [id number] Jan, [facility] [address] [address] 22 Dec, 2016 Chronic pain syndrome G89.4 [facility] [address] [address] 18 Dec, 2016 Chronic pain syndrome G89.4 [facility] [address] [address] 08 Dec, 2016 [facility] [address] [address] Nov, [facility] [address] [address] Nov, Chronic pain syndrome G89.4 [facility] [address] [address] Oct, Chronic pain syndrome G89.4 [facility] [address] [address] Oct, [facility] [address] [address] Sep, Chronic pain syndrome G89.4 [facility] [address] [address] Sep, Exacerbation of systemic lupus M32.9 [facility] [address] [address] Sep, [facility] [address] [address] Sep, [facility] [address] [address] Sep, Nausea R11.0 [facility] [address] [address] August, Chronic pain syndrome G89.4 [facility] [address] [address] August, [facility] [address] [address] August, Chronic pain syndrome G89.4 [facility] [address] [address] Jul, Pneumonia due to infectious organism, un specified laterality, unspecified part of lung J18.9 and Tobacco abuse counseling Z71.6 [facility] [address] [address] Jul, Chronic pain syndrome G89.4 [facility] [address] [address] Jun, Essential hypertension I10 [facility] [address] [address] Jun, Pneumonia due to infectious organism, un specified laterality, unspecified part of lung J18.9 [place] [address] [address] Jun, Chronic pain syndrome G89.4 [place] [address] [address] May, Essential hypertension I10 ; Type 2 [...] and Gastroesophageal reflux disease without esophagitis K21.9 [place] [address] [address] Apr, [address] [address] Apr, Pneumonia due to infectious organism, un specified laterality, unspecified part of lung J18.9 and Nausea R11.[address] [address] Apr, Essential hypertension I10 ; Chronic nataly [...] lung J18.9 and Nausea R11.0 [facility] [address] [facility] [id number] [address] [place] [address] Mar, [address] [address] Mar, [place] [address] [address] Mar, [place] [address] [address] Mar, Anxiety F41.9 and Major depressive disor rita, recurrent episode, unspecified severity F33.9 [place] [address] [address] Mar, [place] [address] [address] Mar, [place] [address] [address] Mar, Generalized abdominal pain R10.84 ; Acut e cystitis with hematuria N30.01 and Essential hypertension I10 [facility] [address] [place] [address] Mar, Sore throat J02.9 and Exacer bation of systemic lupus M32.9 [place] [address] [address] Feb, Type 2 diabetes mellitus without complic [...] reflux disease, esophagitis presence not specified K21.9 [place] [address] [address] Feb, [place] [address] [address] Jan, [facility] [place] [id number] [place] [address] Jan, Right arm pain M79.601 and S train of right wrist, initial encounter S66.911A [place] [address] [address] Jan, [facility] [address] [facility] [id number] [address] [place] [address] 30 Dec, 2015 Generalized abdominal pain R 10.84 [place] [address] [address] Dec, Adenopathy R59.1 [place] [address] [address] 19 Dec, 2015 Bronchitis J40 [place] [address] [address] 14 Dec, 2015 [place] [address] [address] Dec, Essential hypertension I10 [place] [address] [address] Nov, [place] [address] [address] Nov, [place] [address] [address] Nov, Essential hypertension I10 ; Hyperlipide martha, [...] Type 2 diabetes mellitus without complication E11.9 [place] [address] [address] Nov, [facility] [address] [address] Oct, Type 2 diabetes mellitus without complic ation E11.9 ; Essential hypertension I10 ; Other viral warts B07.8 ; [place] or callus L84 and Hyperlipidemia, unspecified hyperlipidemia E78.5 [facility] [address] [address] Sep, [facility] [address] [address] Sep, [facility] [address] [address] Jun, [facility] [address] [address] Jun, [facility] [address] [address] May, [facility] [address] [address] Apr, [facility] [address] [address] Feb, [facility] [address] [address] Feb, COPD exacerbation J44.1 and Acute upper respiratory infection J06.9 [facility] [address] [address] Feb, [facility] [address] [address] Feb, [facility] [address] [address] Feb, [facility] [address] [address] Feb, [facility] [address] [address] Jan, Left hip pain M25.552 [facility] [address] [id number] [place] [address] Jan, Essential hypertension I10 ; Chronic nataly n syndrome G89.4 ; Type 2 diabetes mellitus without complication E11.9 and Hyperlipidemia, unspecified hyperlipidemia E78.5 [facility] [address] [id number] [place] [address] 28 Jul, 2014 [facility] [address] [id number] [place] [address] 14 Jul, 2014 [facility] [address] [id number] [place] [address] Jul, [facility] [address] [place] [address] [id number] [place] [address] 25 Jun, 2014 [facility] [id number] [place] [address] Jun, [facility] [address] [place] [address] [id number] [place] [address] 24 Jun, 2014 [facility] [address] [id number] [place] [address] Jun, [facility] [address] [address] [id number] [place] [address] Jun, [facility] [address] [id number] [place] [address] Jun, [facility] [address] [id number] [place] [address] Jun, [facility] [address] [address] [id number] [place] [address] Jun, [facility] [address] [id number] [place] [address] 18 Jun, 2014 [facility] [address] [id number] [place] [address] 18 Jun, 2014 [facility] [id number] [place] [address] Jun, [facility] [id number] [place] [address] Jun, [facility] [place] [facility] [address] [facility] [id number] [place] [address] Apr, [facility] [place] [facility] [address] [id number] [place] [address] Apr, [facility] [place] [facility] [address] [id number] [place] [address] Apr, [facility] [place] [facility] [address] [id number] [place] [address] Apr, [facility] [place] [facility] [address] [id number] [place] [address] Apr, [facility] [place] [facility] [address] [id number] [place] [address] Apr, [facility] [place] [facility] [address] [id number] [place] [address] Apr, [facility] [place] [facility] [address] [id number] [place] [address] Apr, [facility] [place] [facility] [address] [id number] [place] [address] Mar, [facility] [place] [facility] [address] [id number] [place] [address] Mar, [facility] [place] [facility] [address] [id number] [place] [address] Mar, [facility] [place] [facility] [address] [id number] [place] [address] Mar, [facility] [place] [facility] [address] [id number] [place] [address] Mar, [facility] [place] [facility] [address] [id number] [place] [address] 18 Mar, 2014 [facility] [place] [facility] [address] [id number] [place] [address] 15 Mar, 2014 [facility] [place] [facility] [address] [id number] [place] [address] Mar, [facility] [place] [facility] [address] [id number] [place] [address] Mar, [facility] [place] [facility] [address] [id number] [place] [address] Mar, [facility] [place] [facility] [address] [id number] [place] [address] Mar, [facility] [place] [facility] [address] [id number] [place] [address] Mar, [facility] [place] [facility] [address] [id number] [place] [address] Mar, [facility] [place] [facility] [address] [id number] [place] [address] Feb, [facility] [place] [facility] [address] [id number] [place] [address] Feb, [facility] [place] [facility] [address] [id number] [place] [address] Feb, [facility] [place] [facility] [address] [id number] [place] [address] Feb, [facility] [place] [facility] [address] [id number] [place] [address] Feb, [facility] [place] [facility] [address] [id number] [place] [address] Feb, [facility] [place] [facility] [address] [id number] [place] [address] Feb, [facility] [place] [facility] [address] [id number] [place] [address] Feb, [facility] [place] [facility] [address] [id number] [place] [address] Jan, [facility] [place] [facility] [id number] [place] [address] Jan, [facility] [place] [facility] [address] [id number] [place] [address] Jan, [facility] [place] [facility] [id number] [place] [address] Jan, [facility] [place] [facility] [address] [id number] [place] [address] Jan, [facility] [place] [facility] [address] [id number] [place] [address] Jan, [facility] [place] [facility] [address] [id number] [place] [address] Jan, 2013 [facility] [place] [facility] [address] [id number] [place] [address] Jan, [facility] [place] [facility] [address] [facility] [id number] [place] [address] Jan, 2013 [facility] [place] [facility] [address] [id number] [place] [address] 30 Dec, 2013 [facility] [place] [facility] [address] [id number] [place] [address] 30 Dec, 2013 [facility] [place] [facility] [address] [id number] [place] [address] 26 Dec, 2013 [facility] [place] [facility] [address] [id number] [place] [address] 26 Sep, 2013 [facility] [place] [facility] [address] [id number] [place] [address] 16 Sep, 2013 [facility] [place] [facility] [address] [id number] [place] [address] 16 Sep, 2013 [facility] [place] [facility] [address] [id number] [place] [address] 08 Sep, 2013 [facility] [place] [facility] [address] [id number] [place] [address] 08 Sep, 2013 [facility] [place] [facility] [address] [id number] [place] [address] 04 Sep, 2013 [facility] [place] [facility] [address] [id number] [place] [address] 04 Dec, 2013 [facility] [place] [facility] [address] [id number] [place] [address] 29 Nov, 2013 [facility] [place] [facility] [address] [id number] [place] [address] Nov, [facility] [place] [facility] [address] [id number] [place] [address] Nov, [facility] [place] [facility] [address] [facility] [id number] [place] [address] Nov, [facility] [place] [facility] [address] [id number] [place] [address] Nov, [facility] [place] [facility] [address] [facility] [id number] [place] [address] Nov, [facility] [place] [facility] [address] [facility] [id number] [place] [address] Nov, [facility] [place] [facility] [address] [id number] [place] [address] Nov, [facility] [place] [facility] [address] [id number] [place] [address] Nov, [facility] [place] [facility] [address] [id number] [place] [address] Nov, [facility] [place] [facility] [address] [facility] [id number] [place] [address] Nov, [facility] [place] [facility] [address] [id number] [place] [address] Nov, [facility] [place] [facility] [address] [id number] [place] [address] Nov, [facility] [place] [facility] [address] [id number] [place] [address] Oct, [facility] [place] [facility] [address] [facility] [id number] [place] [address] Oct, [facility] [place] [facility] [address] [id number] [place] [address] Oct, [facility] [place] [facility] [address] [facility] [id number] [place] [address] Oct, [facility] [place] [facility] [address] [id number] [place] [address] Oct, [facility] [place] [facility] [address] [facility] [id number] [place] [address] Oct, [facility] [place] [facility] [address] [facility] [id number] [place] [address] Sep, [facility] [address] [facility] [id number] [place] [address] Sep, [facility] [address] [id number] [place] [address] Sep, [facility] [address] [facility] [id number] [place] [address] Sep, [facility] [address] [id number] [place] [address] Sep, [facility] [address] [id number] [place] [address] Sep, [facility] [address] [id number] [place] [address] Sep, [facility] [address] [id number] [place] [address] Sep, [facility] [address] [id number] [place] [address] Sep, [facility] [address] [id number] [place] [address] Sep, [facility] [address] [id number] [place] [address] Sep, [facility] [address] [id number] [place] [address] Sep, [facility] [address] [id number] [place] [address] August, [facility] [address] [id number] [place] [address] August, [facility] [address] [id number] [place] [address] Jul, [facility] [address] [id number] [place] [address] Jul, [facility] [address] [facility] [id number] [place] [address] Jul, [facility] [address] [facility] [id number] [place] [id number] 24 Jul, 2013 [facility] [address] [id number] [place] [address] Jul, [facility] [address] [id number] [place] [address] Jul, [facility] [address] [facility] [id number] [place] [address] Jul, [facility] [address] [id number] [place] [address] 16 Jul, 2013 [facility] [address] [id number] [place] [address] Jul, [facility] [address] [id number] [place] [address] Jul, [facility] [address] [id number] [place] [address] Jul, [facility] [address] [id number] [place] [address] Jun, [facility] [address] [id number] [place] [address] Jun, [facility] [address] [id number] [place] [address] Jun, [facility] [address] [id number] [place] [address] Jun, [facility] [address] [id number] [place] [address] Jun, [facility] [address] [id number] [place] [address] Jun, [facility] [address] [id number] [place] [address] Jun, [facility] [address] [id number] [place] [id number] Jun, [facility] [place] [facility] [address] [facility] [id number] [place] [address] May, [facility] [place] [facility] [address] [id number] [place] [address] May, [facility] [place] [facility] [address] [id number] [place] [address] May, [facility] [place] [facility] [address] [id number] [place] [address] May, [facility] [place] [facility] [address] [id number] [place] [address] May, [facility] [place] [facility] [address] [id number] [place] [address] May, [facility] [place] [facility] [address] [id number] [place] [address] May, [facility] [place] [facility] [address] [id number] [place] [address] May, [facility] [place] [facility] [address] [id number] [place] [address] May, [facility] [place] [facility] [address] [id number] [place] [address] May, [facility] [place] [facility] [address] [id number] [place] [address] May, [facility] [place] [facility] [address] [id number] [place] [address] May, [facility] [place] [facility] [address] [id number] [place] [address] May, [facility] [place] [facility] [address] [id number] [place] [address] Apr, [facility] [place] [facility] [address] [id number] [place] [address] Apr, [facility] [place] [facility] [address] [id number] [place] [address] Apr[facility] [address] [facility] [id number] [place] [address] Apr, [facility] [place] [facility] [address] [facility] [id number] [place] [address] Apr, [facility] [place] [facility] [address] [id number] [place] [address] Apr, [facility] [place] [facility] [address] [id number] [place] [address] Apr, [facility] [place] [facility] [address] [facility] [id number] [place] [address] Apr, [facility] [place] [facility] [address] [id number] [place] [address] Apr, [facility] [place] [facility] [address] [id number] [place] [address] Apr, [facility] [place] [facility] [address] [id number] [place] [address] Apr, [facility] [place] [facility] [address] [id number] [place] [address] Apr, [facility] [place] [facility] [address] [id number] [place] [address] Apr, [facility] [place] [facility] [address] [id number] [place] [address] Apr, [facility] [place] [facility] [address] [id number] [place] [address] Apr, [facility] [place] [facility] [address] [facility] [id number] [place] [address] Mar, [facility] [place] [facility] [address] [facility] [id number] [place] [address] Mar, [facility] [place] [facility] [address] [id number] [place] [address] Mar, [facility] [place] [facility] [address] [id number] [place] [address] Mar, [facility] [place] [facility] [address] [id number] [place] [address] 20 Mar, 2013 [facility] [place] [facility] [address] [id number] [place] [address] 20 Mar, 2013 [facility] [place] [facility] [address] [id number] [place] [address] 17 Mar, 2013 [facility] [place] [facility] [address] [id number] [place] [address] 17 Mar, 2013 [facility] [place] [facility] [address] [id number] [place] [address] Mar, [facility] [place] [facility] [address] [id number] [place] [address] Mar, [facility] [place] [facility] [address] [id number] [place] [address] Mar, [facility] [place] [facility] [address] [id number] [place] [address] Mar, [facility] [place] [facility] [address] [id number] [place] [address] Feb, [facility] [place] [facility] [address] [id number] [place] [address] Feb, [facility] [place] [facility] [id number] [place] [address] Feb, [facility] [place] [facility] [address] [id number] [place] [address] Feb, [facility] [place] [facility] [address] [id number] [place] [address] Feb, [facility] [place] [facility] [address] [id number] [place] [address] Feb, [facility] [place] [facility] [id number] [place] [address] Feb, [facility] [place] [facility] [address] [id number] [place] [address] Feb, [facility] [place] [facility] [address] [id number] [place] [address] Jan, [facility] [place] [facility] [address] [id number] [place] [address] Jan, [facility] [place] [facility] [address] [id number] [place] [address] Jan, [facility] [place] [facility] [address] [id number] [place] [address] Jan, [facility] [place] [facility] [address] [id number] [place] [address] Jan, [facility] [place] [facility] [address] [facility] [id number] [place] [address] Jan, [facility] [place] [facility] [address] [id number] [place] [address] Jan, [facility] [place] [facility] [address] [id number] [place] [address] Dec, [facility] [place] [facility] [address] [id number] [place] [address] Dec, [facility] [place] [facility] [address] [id number] [place] [address] Dec, [facility] [place] [facility] [address] [id number] [place] [address] Dec, [facility] [place] [facility] [address] [id number] [place] [address] Dec, [facility] [place] [facility] [address] [id number] [place] [address] Nov, [facility] [place] [facility] [address] [id number] [place] [address] Nov, [facility] [place] [facility] [address] [facility] [id number] [place] [address] Nov, [facility] [place] [facility] [address] [id number] [place] [address] Nov, [facility] [place] [facility] [address] [id number] [place] [address] Nov, [facility] [place] [facility] [address] [id number] [place] [address] Nov, [facility] [place] [facility] [address] [facility] [id number] [facility] [place] [address] Nov, [facility] [place] [facility] [address] [facility] [id number] [facility] [place] [address] Oct, [facility] [place] [facility] [address] [facility] [id number] [facility] [place] [address] Oct, [facility] [place] [facility] [address] [facility] [id number] [place] [address] Oct, [facility] [place] [facility] [address] [facility] [id number] [facility] [place] [address] Oct, [facility] [place] [facility] [address] [id number] [place] [address] Oct, [facility] [place] [facility] [address] [id number] [place] [address] Oct, [facility] [place] [facility] [address] [id number] [place] [address] Oct, [facility] [place] [facility] [address] [facility] [id number] [facility] [place] [address] Oct, [facility] [place] [facility] [address] [id number] [place] [address] Sep, [facility] [place] [facility] [address] [id number] [place] [address] Sep, [facility] [place] [facility] [address] [id number] [place] [address] Sep, [facility] [place] [facility] [address] [facility] [id number] [place] [address] Sep, [facility] [place] [facility] [address] [facility] [id number] [place] [address] Sep, [facility] [place] [facility] [address] [facility] [id number] [place] [address] Sep, [facility] [place] [facility] [address] [id number] [place] [address] August, [facility] [place] [facility] [address] [id number] [place] [address] August, [facility] [address] [id number] [place] [address] August, [facility] [place] [facility] [address] [id number] [place] [address] August, [facility] [place] [facility] [address] [id number] [place] [address] August, [facility] [place] [facility] [address] [id number] [place] [address] Jul, [facility] [place] [facility] [address] [id number] [place] [address] Jul, [facility] [place] [facility] [address] [id number] [place] [address] Jul, [facility] [place] [facility] [address] [id number] [place] [address] Jul, [facility] [place] [facility] [address] [id number] [place] [address] Jul, [facility] [place] [facility] [address] [id number] [place] [address] Jul, [facility] [place] [facility] [address] [id number] [place] [address] 14 Jun, 2012 [facility] [place] [facility] [address] [id number] [place] [address] Jun, [facility] [place] [facility] [address] [id number] [place] [address] Jun, [facility] [place] [facility] [address] [id number] [place] [address] Jun, [facility] [place] [facility] [address] [id number] [place] [address] 05 Jun, 2012 [facility] [place] [facility] [address] [id number] [place] [address] May, [facility] [place] [facility] [address] [id number] [place] [address] 13 May, 2012 [facility] [place] [facility] [address] [id number] [place] [address] May, [facility] [place] [facility] [address] [id number] [place] [address] Apr, [facility] [place] [facility] [address] [id number] [place] [address] Apr, [facility] [place] [facility] [address] [id number] [place] [address] Mar, [facility] [place] [facility] [address] [id number] [place] [address] Mar, [facility] [place] [facility] [address] [id number] [place] [address] Mar, [facility] [place] [facility] [address] [id number] [place] [address] Mar, [facility] [place] [facility] [address] [id number] [place] [address] Mar, [facility] [place] [facility] [address] [id number] [place] [address] Mar, [facility] [place] [facility] [address] [id number] [place] [address] Feb, [facility] [place] [facility] [address] [id number] [place] [address] Feb, [facility] [place] [facility] [address] [id number] [place] [address] Feb, [facility] [place] [facility] [address] [id number] [place] [address] Jan, [facility] [place] [facility] [address] [id number] [place] [address] Jan, [facility] [place] [facility] [address] [id number] [place] [address] Jan, [facility] [place] [facility] [address] [id number] [place] [address] 24 Jan, 2012 [facility] [place] [facility] [address] [id number] [place] [address] 24 Jan, 2012 [facility] [place] [facility] [address] [facility] [id number] [place] [address] Jan, [facility] [place] [facility] [address] [id number] [place] [address] 17 Jan, 2012 [facility] [place] [facility] [address] [id number] [place] [address] 16 Jan, 2012 [facility] [place] [facility] [address] [id number] [place] [address] Jan, [facility] [place] [facility] [address] [id number] [place] [address] Dec, [facility] [place] [facility] [address] [id number] [place] [address] Dec, [facility] [place] [facility] [address] [id number] [place] [address] Dec, [facility] [place] [facility] [address] [id number] [place] [address] Nov, [facility] [place] [facility] [address] [id number] [place] [address] Nov, [facility] [place] [facility] [address] [id number] [place] [address] Nov, [facility] [place] [facility] [address] [id number] [place] [address] Oct, [facility] [place] [facility] [address] [id number] [place] [address] Oct, [facility] [place] [facility] [address] [id number] [place] [address] Sep, [facility] [place] [facility] [address] [id number] [place] [address] Sep, [facility] [place] [facility] [address] [id number] [place] [address] 18 Sep, 2011 [facility] [place] [facility] [address] [id number] [place] [address] Sep, [facility] [place] [facility] [address] [id number] [place] [address] Sep, [facility] [place] [facility] [address] [id number] [place] [address] August, [facility] [place] [facility] [address] [id number] [place] [address] August, [facility] [place] [facility] [address] [id number] [place] [address] August, [facility] [place] [facility] [address] [id number] [place] [address] August, [facility] [place] [facility] [address] [id number] [place] [address] August, [facility] [place] [facility] [address] [id number] [place] [address] August, [facility] [place] [facility] [address] [id number] [place] [address] August, [facility] [place] [facility] [address] [id number] [place] [address] August, [facility] [place] [facility] [address] [id number] [place] [address] August, [facility] [place] [facility] [address] [id number] [place] [address] Jul, [facility] [place] [facility] [address] [id number] [place] [address] Jul, [facility] [place] [facility] [address] [id number] [place] [address] Jul, [facility] [place] [facility] [address] [id number] [place] [address] 04 Jul, 2011 [facility] [place] [facility] [address] [id number] [place] [address] 27 Jun, 2011 [facility] [place] [facility] [address] [id number] [place] [address] Jun, [facility] [place] [facility] [address] [id number] [place] [address] Jun, [facility] [place] [facility] [address] [id number] [facility] [address] 27 May, 2011 [facility] [place] [facility] [address] [id number] [place] [address] 24 May, 2011 [facility] [place] [facility] [address] [facility] [id number] [place] [address] 20 May, 2011 [facility] [place] [facility] [address] [id number] [place] [address] 16 May, 2011 [facility] [place] [facility] [address] [facility] [id number] [facility] [address] 15 May, 2011 [facility] [place] [facility] [address] [id number] [place] [address] 14 May, 2011 [facility] [place] [facility] [address] [id number] [place] [address] 10 May, [address] [place] [facility] [address] [id number] [place] [address] 09 May, 2011 [facility] [place] [facility] [address] [id number] [place] [address] 02 May, 2011 [facility] [place] [facility] [address] [id number] [place] [address] 30 Apr, [address] [place] [facility] [address] [id number] [place] [address] Apr, [facility] [place] [facility] [address] [id number] [place] [address] Apr, [facility] [place] [facility] [address] [id number] [place] [address] 17 Apr, 2011 [facility] [place] [facility] [address] [id number] [place] [address] 16 Apr, 2011 [facility] [place] [facility] [address] [id number] [place] [address] 13 Apr, 2011 [facility] [place] [facility] [address] [id number] [place] [address] 09 Apr, 2011 [facility] [id number] [place] [address] Apr, [facility] [address] [id number] [place] [address] Apr, [facility] [id number] [place] [address] Apr, [facility] [address] [address] Apr, [facility] [address] [address] Mar, [facility] [address] [address] Mar, [facility] [address] [address] Mar, [facility] [address] [address] Mar, [facility] [address] [address] Feb, [facility] [address] [id number] [place] [address] Feb, [facility] [address] [address] Jan, [facility] [address] [address] Nov, IMMUNIZATIONS No Known Immunizations SOCIAL HISTORY [...] laser treatment for glaucoma Hospitalization History [facility] [place]- Right side and back pain related to fall, hurts to breathe (ED at 7 pm) 06/07/2017 Hospitalization History [facility] [place]- Anxiety ( went to ED at 1200) 06/07/2017 Hospitalization History COPD exacerbation - [facility] 2017 Hospitalization History Blood clot, port placement - [facility] 09/2017
[2019-09-01 14:40] VITALS: BP 167/102
--- OUTSIDE RECORDS SUMMARY | 2019-09-01 14:43 | XMS REPORT ---
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 9 Active 60733690 Problem Hyperlipidemia, unspecified hyperlipidemia E78.5 Active 39974578 Problem Major depressive disorder, recurrent episode, un specified severity F33.9 Active 84997933 Problem Sciatica, unspecified laterality M54.30 Active 09963025 Problem Acute cystitis with hematuria N30.01 Active 38990544 Problem Chronic pain syndrome G89.4 Active 172335707 Problem Exacerbation of systemic lupus M32.9 Active 35442992 Problem Generalized abdominal pain R10.84 Act sree 152705967 Problem Carpal tunnel syndrome, right upper limb G56.01 Active 71212599 Problem History of small bowel obstruction Z87.19 Active 149963768 Problem History of pulmonary embolism Z86.711 Active 300070079 Problem Presence of IVC filter Z95.828 Active 446921112 Problem Port catheter in place Z95.828 Active 802557501 Problem Gastroesophageal reflux disease, esophagitis pre sence not specified K21.9 Active 132873858 Problem Chronic pancreatitis, unspecified pancreatitis type K86.1 Active 555457181 Problem Hypothyroidism, unspecified type E03.9 Active 10308105 Problem Vitamin D deficiency E55.9 Active 66122102 Problem Nausea R11.0 Active 746747385 Problem Pneumonia due to infectious organism, unspecified laterality, unspecified part of lung J18.9 Active 312 343524 Problem Gastroesophageal reflux disease without esophagitis K21.9 Active 370353756 Problem Violation of controlled substance agreement Z91.14 Active 461218525 Problem Obstructive sleep apnea G47.33 Active 76831046 Problem Hypertension, benign I10 Active 84185312 Problem Venous insufficiency I87.2 Active 58705717 Problem Chronic obstructive pulmonary disease, unspecified COPD ty pe J44.9 Active 27061766 Problem Tobacco abuse counseling Z71.6 Activ e 79631949 Problem 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 A ctive 910630631 Problem Opiate dependence, continuous F11.20 Active 096315749 Problem Cannabis abuse with physiological dependence F12.1 0 Active 94273447 ALLERGIES No Information ENCOUNTERS Encounter Location Date Diagnosis [facility] [address] [address] May, [place] [address] [address] Apr, Tobacco abuse Z72.0 ; Hypertension, stefan gn I10 and Tobacco abuse counseling Z71.6 [place] [address] [address] Sep, [place] [address] [address] Sep, [facility] [address] [address] Sep, Essential hypertension I10 [place] [address] [address] Sep, [facility] [address] [address] Sep, [place] [address] [address] Sep, Neck mass R22.1 [facility] [address] [address] August, Neck mass R22.1 [facility] [address] [facility] [id number] [address] [place] [address] Feb, Left foot pain M79.672 [facility] [address] [address] Jun, Chronic pain syndrome G89.4 [facility] [address] [id number] [place] [id number] May, [facility] [address] [place] [id number] [place] [address] May, [facility] [address] [place] [id number] [place] [address] May, Chronic pain syndrome G89.4 [facility] [address] [place] [id number] [place] [address] May, [facility] [address] [facility] [id number] [address] [place] [address] 10 May, 2017 Encounter for immunization Z 23 and Laceration of left index finger without foreign body without damage to nail, initial encounter S61.211A [place] [address] [address] 09 May, 2017 Chronic pain syndrome G89.4 [facility] [address] [place] [id number] [place] [address] May, [place] [address] [address] Apr, Cannabis abuse with physiological depend ence F12.10 ; Violation of controlled substance agreement Z91.14 and Opiate dependence, continuous F11.20 [place] [address] [place] [id number] [place] [address] Apr, Type 2 diabetes mellitus without complic ation E11.9 [facility] [address] [place] [id number] [place] [address] Apr, [place] [address] [address] Apr, Chronic pain syndrome G89.4 [facility] [address] [place] [id number] [place] [address] Apr, Viral syndrome B34.9 [facility] [address] [address] Apr, [facility] [address] [address] Mar, Chronic pain syndrome G89.4 [facility] [address] [address] Mar, [facility] [address] [address] Mar, [facility] [address] [address] Feb, Essential hypertension I10 ; Chronic nataly n syndrome G89.4 ; Hyperlipidemia, unspecified hyperlipidemia E78.5 ; 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 and Encounter for immunization Z23 [place] [address] [address] Feb, Chronic pain syndrome G89.4 [facility] [address] [address] Jan, Chronic pain syndrome G89.4 [facility] [address] [address] Jan, [facility] [address] [address] Jan, Bronchitis J40 ; Port catheter in place Z95.828 and Chronic pain syndrome G89.4 [facility] [address] [id number] [place] [id number] Jan, [facility] [address] [address] 22 Dec, 2016 Chronic pain syndrome G89.4 [facility] [address] [address] 18 Dec, 2016 Chronic pain syndrome G89.4 [facility] [address] [address] 08 Dec, 2016 [facility] [address] [address] Nov, [facility] [address] [address] Nov, Chronic pain syndrome G89.4 [facility] [address] [address] Oct, Chronic pain syndrome G89.4 [facility] [address] [address] Oct, [facility] [address] [address] Sep, Chronic pain syndrome G89.4 [facility] [address] [address] Sep, Exacerbation of systemic lupus M32.9 [facility] [address] [address] Sep, [facility] [address] [address] Sep, [facility] [address] [address] Sep, Nausea R11.0 [facility] [address] [address] August, Chronic pain syndrome G89.4 [facility] [address] [address] August, [facility] [address] [address] August, Chronic pain syndrome G89.4 [facility] [address] [address] Jul, Pneumonia due to infectious organism, un specified laterality, unspecified part of lung J18.9 and Tobacco abuse counseling Z71.6 [facility] [address] [address] Jul, Chronic pain syndrome G89.4 [facility] [address] [address] Jun, Essential hypertension I10 [facility] [address] [address] Jun, Pneumonia due to infectious organism, un specified laterality, unspecified part of lung J18.9 [place] [address] [address] Jun, Chronic pain syndrome G89.4 [place] [address] [address] May, Essential hypertension I10 ; Type 2 [...] and Gastroesophageal reflux disease without esophagitis K21.9 [place] [address] [address] Apr, [address] [address] Apr, Pneumonia due to infectious organism, un specified laterality, unspecified part of lung J18.9 and Nausea R11.[address] [address] Apr, Essential hypertension I10 ; Chronic nataly n syndrome G89.4 ; Type 2 diabetes mellitus without complication E11.9 ; Hyperlipidemia, unspecified hyperlipidemia E78.5 ; Major depressive disorder, recurrent episode, unspecified severity F33.9 ; Sciatica, unspecified laterality M54.30 ; Chronic obstructive pulmonary disease, unspecified COPD type J44.9 ; Pneumonia due to infectious organism, unspecified laterality, unspecified part of lung J18.9 and Nausea R11.0 [facility] [address] [facility] [id number] [address] [place] [address] Mar, [address] [address] Mar, [place] [address] [address] Mar, [place] [address] [address] Mar, Anxiety F41.9 and Major depressive disor rita, recurrent episode, unspecified severity F33.9 [place] [address] [address] Mar, [place] [address] [address] Mar, [place] [address] [address] Mar, Generalized abdominal pain R10.84 ; Acut e cystitis with hematuria N30.01 and Essential hypertension I10 [facility] [address] [place] [address] Mar, Sore throat J02.9 and Exacer bation of systemic lupus M32.9 [place] [address] [address] Feb, Type 2 diabetes mellitus without complic [...] reflux disease, esophagitis presence not specified K21.9 [place] [address] [address] Feb, [place] [address] [address] Jan, [facility] [place] [id number] [place] [address] Jan, Right arm pain M79.[address] of right wrist, initial encounter S66.911A [place] [address] [address] Jan, [facility] [address] [facility] [id number] [address] [place] [address] 30 Dec, 2015 Generalized abdominal pain R 10.84 [place] [address] [address] Dec, Adenopathy R59.1 [place] [address] [address] 19 Dec, 2015 Bronchitis J40 [place] [address] [address] 14 Dec, 2015 [place] [address] [address] Dec, Essential hypertension I10 [place] [address] [address] Nov, [place] [address] [address] Nov, [place] [address] [address] Nov, Essential hypertension I10 ; Hyperlipide martha, [...] Type 2 diabetes mellitus without complication E11.9 [place] [address] [address] Nov, [facility] [address] [address] Oct, Type 2 diabetes mellitus without complic ation E11.9 ; Essential hypertension I10 ; Other viral warts B07.8 ; Hurley or callus L84 and Hyperlipidemia, unspecified hyperlipidemia E78.5 [facility] [address] [address] Sep, [facility] [address] [address] Sep, [facility] [address] [address] Jun, [facility] [address] [address] Jun, [facility] [address] [address] May, [facility] [address] [address] Apr, [facility] [address] [address] Feb, [facility] [address] [address] Feb, COPD exacerbation J44.1 and Acute upper respiratory infection J06.9 [facility] [address] [address] Feb, [facility] [address] [address] Feb, [facility] [address] [address] Feb, [facility] [address] [address] Feb, [facility] [address] [address] Jan, Left hip pain M25.552 [facility] [address] [id number] [place] [address] Jan, Essential hypertension I10 ; Chronic nataly n syndrome G89.4 ; Type 2 diabetes mellitus without complication E11.9 and Hyperlipidemia, unspecified hyperlipidemia E78.5 [facility] [address] [id number] [place] [address] 28 Jul, 2014 [facility] [address] [place] [address] [id number] [place] [address] 14 Jul, 2014 [facility] [address] [id number] [place] [address] Jul, [facility] [address] [place] [address] [id number] [place] [address] 25 Jun, 2014 [facility] [address] [place] [address] [id number] [place] [address] Jun, [facility] [address] [place] [address] [id number] [place] [address] 24 Jun, 2014 [facility] [address] [place] [address] [id number] [place] [address] Jun, [facility] [address] [place] [address] [id number] [place] [address] Jun, [facility] [address] [place] [address] [id number] [place] [address] Jun, [facility] [address] [place] [address] [id number] [place] [address] Jun, [facility] [address] [place] [address] [id number] [place] [address] Jun, [facility] [address] [place] [address] [id number] [place] [address] 18 Jun, 2014 [facility] [address] [place] [address] [id number] [place] [address] 18 Jun, 2014 [facility] [address] [place] [id number] [place] [address] Jun, [facility] [address] [place] [id number] [place] [address] Jun, [facility] [place] [facility] [address] [facility] [id number] [place] [address] Apr, [facility] [place] [facility] [address] [id number] [place] [address] Apr, [facility] [place] [facility] [address] [id number] [place] [address] Apr, [facility] [place] [facility] [address] [id number] [place] [address] Apr, [facility] [place] [facility] [address] [id number] [place] [address] Apr, [facility] [place] [facility] [address] [id number] [place] [address] Apr, [facility] [place] [facility] [address] [id number] [place] [address] Apr, [facility] [place] [facility] [address] [id number] [place] [address] Apr, [facility] [place] [facility] [address] [id number] [place] [address] Mar, [facility] [place] [facility] [address] [id number] [place] [address] Mar, [facility] [place] [facility] [address] [id number] [place] [address] Mar, [facility] [place] [facility] [address] [id number] [place] [address] Mar, [facility] [place] [facility] [address] [id number] [place] [address] Mar, [facility] [place] [facility] [address] [id number] [place] [address] 18 Mar, 2014 [facility] [place] [facility] [address] [id number] [place] [address] 15 Mar, 2014 [facility] [place] [facility] [address] [id number] [place] [address] Mar, [facility] [place] [facility] [address] [id number] [place] [address] Mar, [facility] [place] [facility] [address] [id number] [place] [address] Mar, [facility] [place] [facility] [address] [id number] [place] [address] Mar, [facility] [place] [facility] [address] [id number] [place] [address] Mar, [facility] [place] [facility] [address] [id number] [place] [address] Mar, [facility] [place] [facility] [address] [id number] [place] [address] Feb, [facility] [place] [facility] [address] [id number] [place] [address] Feb, [facility] [place] [facility] [address] [place] [address] [id number] [place] [address] Feb, [facility] [place] [facility] [address] [id number] [place] [address] Feb, [facility] [place] [facility] [address] [id number] [place] [address] Feb, [facility] [place] [facility] [address] [id number] [place] [address] Feb, [facility] [place] [facility] [address] [id number] [place] [address] Feb, [facility] [place] [facility] [address] [id number] [place] [address] Feb, [facility] [place] [facility] [address] [id number] [place] [address] Jan, [facility] [place] [facility] [address] [place] [id number] [place] [address] Jan, [facility] [place] [facility] [address] [id number] [place] [address] Jan, [facility] [place] [facility] [address] [place] [id number] [place] [address] Jan, [facility] [place] [facility] [address] [id number] [place] [address] Jan, [facility] [place] [facility] [address] [id number] [place] [address] Jan, [facility] [place] [facility] [address] [id number] [place] [address] Jan, 2013 [facility] [place] [facility] [address] [id number] [place] [address] Jan, [facility] [place] [facility] [address] [facility] [id number] [place] [address] Jan, 2013 [facility] [place] [facility] [address] [id number] [place] [address] 30 Dec, 2013 [facility] [place] [facility] [address] [id number] [place] [address] 30 Dec, 2013 [facility] [place] [facility] [address] [id number] [place] [address] 26 Dec, 2013 [facility] [place] [facility] [address] [id number] [place] [address] 26 Sep, 2013 [facility] [place] [facility] [address] [id number] [place] [address] 16 Sep, 2013 [facility] [place] [facility] [address] [id number] [place] [address] 16 Sep, 2013 [facility] [place] [facility] [address] [id number] [place] [address] 08 Sep, 2013 [facility] [place] [facility] [address] [id number] [place] [address] 08 Sep, 2013 [facility] [place] [facility] [address] [id number] [place] [address] 04 Sep, 2013 [facility] [place] [facility] [address] [id number] [place] [address] 04 Dec, 2013 [facility] [place] [facility] [address] [id number] [place] [address] 29 Nov, 2013 [facility] [place] [facility] [address] [id number] [place] [address] Nov, [facility] [place] [facility] [address] [id number] [place] [address] Nov, [facility] [place] [facility] [address] [facility] [id number] [facility] [place] [address] Nov, [facility] [place] [facility] [address] [id number] [facility] [place] [address] Nov, [facility] [place] [facility] [address] [facility] [id number] [facility] [place] [address] Nov, [facility] [place] [facility] [address] [facility] [id number] [place] [address] Nov, [facility] [place] [facility] [address] [id number] [facility] [place] [address] Nov, [facility] [place] [facility] [address] [id number] [facility] [place] [address] Nov, [facility] [place] [facility] [address] [id number] [facility] [place] [address] Nov, [facility] [place] [facility] [address] [facility] [id number] [facility] [place] [address] Nov, [facility] [place] [facility] [address] [id number] [facility] [place] [address] Nov, [facility] [place] [facility] [address] [id number] [place] [address] Nov, [facility] [place] [facility] [address] [id number] [facility] [place] [address] Oct, [facility] [place] [facility] [address] [facility] [id number] [facility] [place] [address] Oct, [facility] [place] [facility] [address] [id number] [facility] [place] [address] Oct, [facility] [place] [facility] [address] [facility] [id number] [place] [address] Oct, [facility] [place] [facility] [address] [id number] [place] [address] Oct, [facility] [place] [facility] [address] [facility] [id number] [place] [address] Oct, [facility] [place] [facility] [address] [facility] [id number] [place] [address] Sep, [facility] [place] [facility] [address] [facility] [id number] [place] [address] Sep, [facility] [place] [facility] [address] [id number] [place] [address] Sep, [facility] [place] [facility] [address] [facility] [id number] [place] [address] Sep, [facility] [place] [facility] [address] [id number] [place] [address] Sep, [facility] [place] [facility] [address] [id number] [place] [address] Sep, [facility] [place] [facility] [address] [id number] [place] [address] Sep, [facility] [place] [facility] [address] [id number] [place] [address] Sep, [facility] [place] [facility] [address] [id number] [place] [address] Sep, [facility] [place] [facility] [address] [id number] [place] [address] Sep, [facility] [place] [facility] [address] [id number] [place] [address] Sep, [facility] [place] [facility] [address] [id number] [place] [address] Sep, [facility] [place] [facility] [address] [id number] [place] [address] August, [facility] [address] [id number] [place] [address] August, [facility] [address] [id number] [place] [address] Jul, [facility] [address] [id number] [place] [address] Jul, [facility] [address] [facility] [id number] [place] [address] Jul, [facility] [address] [facility] [id number] [place] [address] 24 Jul, 2013 [facility] [address] [id number] [place] [address] Jul, [facility] [address] [id number] [place] [address] Jul, [facility] [address] [facility] [id number] [place] [address] Jul, [facility] [address] [id number] [place] [address] 16 Jul, 2013 [facility] [address] [id number] [place] [address] Jul, [facility] [address] [id number] [place] [address] Jul, [facility] [address] [id number] [place] [address] Jul, [facility] [address] [id number] [place] [address] Jun, [facility] [address] [id number] [place] [address] Jun, [facility] [address] [id number] [place] [address] Jun, [facility] [address] [id number] [place] [address] Jun, [facility] [address] [id number] [place] [address] Jun, [facility] [address] [id number] [place] [address] Jun, [facility] [address] [id number] [place] [address] Jun, [facility] [address] [id number] [place] [address] Jun, [facility] [address] [facility] [id number] [place] [address] May, [facility] [address] [id number] [place] [address] May, [facility] [address] [id number] [place] [address] May, [facility] [address] [id number] [place] [address] May, [facility] [place] [facility] [address] [id number] [place] [address] May, [facility] [place] [facility] [address] [id number] [place] [address] May, [facility] [place] [facility] [address] [id number] [place] [address] May, [facility] [place] [facility] [address] [id number] [place] [address] May, [facility] [place] [facility] [address] [id number] [place] [address] May, [facility] [place] [facility] [address] [id number] [place] [address] May, [facility] [place] [facility] [address] [id number] [place] [address] May, [facility] [place] [facility] [address] [id number] [place] [address] May, [facility] [place] [facility] [address] [id number] [place] [address] May, [facility] [place] [facility] [address] [id number] [place] [address] Apr, [facility] [place] [facility] [address] [id number] [place] [address] Apr, [facility] [place] [facility] [address] [id number] [place] [address] Apr, [facility] [address] [facility] [id number] [place] [address] Apr, [facility] [place] [facility] [address] [facility] [id number] [place] [address] Apr, [facility] [place] [facility] [address] [id number] [place] [address] Apr, [facility] [place] [facility] [address] [id number] [place] [address] Apr, [facility] [place] [facility] [address] [facility] [id number] [place] [address] Apr, [facility] [place] [facility] [address] [id number] [place] [address] Apr, [facility] [place] [facility] [address] [id number] [place] [address] Apr, [facility] [place] [facility] [address] [id number] [place] [address] Apr, [facility] [place] [facility] [address] [id number] [place] [address] Apr, [facility] [place] [facility] [address] [id number] [place] [address] Apr, [facility] [place] [facility] [address] [id number] [place] [address] Apr, [facility] [place] [facility] [address] [id number] [place] [address] Apr, [facility] [place] [facility] [address] [facility] [id number] [place] [address] Mar, [facility] [place] [facility] [address] [facility] [id number] [place] [address] Mar, [facility] [place] [facility] [address] [id number] [place] [address] Mar, [facility] [place] [facility] [address] [id number] [place] [address] Mar, [facility] [place] [facility] [address] [id number] [place] [address] 20 Mar, 2013 [facility] [place] [facility] [address] [id number] [place] [address] 20 Mar, 2013 [facility] [place] [facility] [address] [id number] [place] [address] 17 Mar, 2013 [facility] [place] [facility] [address] [id number] [place] [address] 17 Mar, 2013 [facility] [place] [facility] [address] [id number] [place] [address] Mar, [facility] [place] [facility] [address] [id number] [place] [address] Mar, [facility] [place] [facility] [address] [id number] [place] [address] Mar, [facility] [place] [facility] [address] [id number] [place] [address] Mar, [facility] [place] [facility] [address] [id number] [place] [address] Feb, [facility] [place] [facility] [address] [id number] [place] [address] Feb, [facility] [place] [facility] [id number] [place] [address] Feb, [facility] [place] [facility] [address] [id number] [place] [address] Feb, [facility] [place] [facility] [address] [id number] [place] [address] Feb, [facility] [place] [facility] [address] [id number] [place] [address] Feb, [facility] [place] [facility] [address] [id number] [place] [address] Feb, [facility] [place] [facility] [address] [id number] [place] [address] Feb, [facility] [place] [facility] [address] [id number] [place] [address] Jan, [facility] [place] [facility] [address] [id number] [place] [address] Jan, [facility] [place] [facility] [address] [id number] [place] [address] Jan, [facility] [place] [facility] [address] [id number] [place] [address] Jan, [facility] [place] [facility] [address] [id number] [place] [address] Jan, [facility] [place] [facility] [address] [facility] [id number] [place] [address] Jan, [facility] [place] [facility] [address] [id number] [place] [address] Jan, [facility] [place] [facility] [address] [id number] [place] [address] Dec, [facility] [place] [facility] [address] [id number] [place] [address] Dec, [facility] [place] [facility] [address] [id number] [place] [address] Dec, [facility] [place] [facility] [address] [id number] [place] [address] Dec, [facility] [place] [facility] [address] [id number] [place] [address] Dec, [facility] [place] [facility] [address] [id number] [place] [address] Nov, [facility] [place] [facility] [address] [id number] [place] [address] Nov, [facility] [place] [facility] [address] [facility] [id number] [place] [address] Nov, [facility] [place] [facility] [address] [id number] [place] [address] Nov, [facility] [place] [facility] [address] [id number] [place] [address] Nov, [facility] [place] [facility] [address] [id number] [place] [address] Nov, [facility] [place] [facility] [address] [facility] [id number] [facility] [place] [address] Nov, [facility] [place] [facility] [address] [facility] [id number] [facility] [place] [address] Oct, [facility] [place] [facility] [address] [facility] [id number] [facility] [place] [address] Oct, [facility] [place] [facility] [address] [facility] [id number] [place] [address] Oct, [facility] [place] [facility] [address] [facility] [id number] [facility] [place] [address] Oct, [facility] [place] [facility] [address] [id number] [facility] [place] [address] Oct, [facility] [place] [facility] [address] [id number] [place] [address] Oct, [facility] [place] [facility] [address] [id number] [facility] [place] [address] Oct, [facility] [place] [facility] [address] [facility] [id number] [facility] [place] [address] Oct, [facility] [place] [facility] [address] [id number] [facility] [place] [address] Sep, [facility] [place] [facility] [address] [id number] [place] [address] Sep, [facility] [place] [facility] [address] [id number] [place] [address] Sep, [facility] [place] [facility] [address] [facility] [id number] [facility] [place] [address] Sep, [facility] [place] [facility] [address] [facility] [id number] [place] [address] Sep, [facility] [place] [facility] [address] [facility] [id number] [place] [address] Sep, [facility] [place] [facility] [address] [id number] [facility] [place] [address] August, [facility] [place] [facility] [address] [id number] [place] [address] August, [facility] [address] [id number] [place] [address] August, [facility] [place] [facility] [address] [id number] [place] [address] August, [facility] [place] [facility] [address] [id number] [place] [address] August, [facility] [place] [facility] [address] [id number] [place] [address] Jul, [facility] [place] [facility] [address] [id number] [place] [address] Jul, [facility] [place] [facility] [address] [id number] [place] [address] Jul, [facility] [place] [facility] [address] [id number] [place] [address] Jul, [facility] [place] [facility] [address] [id number] [place] [address] Jul, [facility] [place] [facility] [address] [id number] [place] [address] Jul, [facility] [place] [facility] [address] [id number] [place] [address] 14 Jun, 2012 [facility] [place] [facility] [address] [id number] [place] [address] Jun, [facility] [place] [facility] [address] [id number] [place] [address] Jun, [facility] [place] [facility] [address] [id number] [place] [address] Jun, [facility] [place] [facility] [address] [id number] [place] [address] 05 Jun, 2012 [facility] [place] [facility] [address] [id number] [place] [address] May, [facility] [place] [facility] [address] [id number] [place] [address] 13 May, 2012 [facility] [place] [facility] [address] [id number] [place] [address] May, [facility] [place] [facility] [address] [id number] [place] [address] Apr, [facility] [place] [facility] [address] [id number] [place] [address] Apr, [facility] [place] [facility] [address] [id number] [place] [address] Mar, [facility] [place] [facility] [address] [id number] [place] [address] Mar, [facility] [place] [facility] [address] [id number] [place] [address] Mar, [facility] [place] [facility] [address] [id number] [place] [address] Mar, [facility] [place] [facility] [address] [id number] [place] [address] Mar, [facility] [place] [facility] [address] [id number] [place] [address] Mar, [facility] [place] [facility] [address] [id number] [place] [address] Feb, [facility] [place] [facility] [address] [id number] [place] [address] Feb, [facility] [place] [facility] [address] [id number] [place] [address] Feb, [facility] [place] [facility] [address] [id number] [place] [address] Jan, [facility] [place] [facility] [address] [id number] [place] [address] Jan, [facility] [place] [facility] [address] [id number] [place] [address] Jan, [facility] [place] [facility] [address] [id number] [place] [address] 24 Jan, 2012 [facility] [place] [facility] [address] [id number] [place] [address] 24 Jan, 2012 [facility] [place] [facility] [address] [facility] [id number] [place] [address] Jan, [facility] [place] [facility] [address] [id number] [place] [address] 17 Jan, 2012 [facility] [place] [facility] [address] [id number] [place] [address] 16 Jan, 2012 [facility] [place] [facility] [address] [id number] [place] [address] Jan, [facility] [place] [facility] [address] [id number] [place] [address] Dec, [facility] [place] [facility] [address] [id number] [place] [address] Dec, [facility] [place] [facility] [address] [id number] [place] [address] Dec, [facility] [place] [facility] [address] [id number] [place] [address] Nov, [facility] [place] [facility] [address] [id number] [place] [address] Nov, [facility] [place] [facility] [address] [id number] [place] [address] Nov, [facility] [place] [facility] [address] [id number] [place] [address] Oct, [facility] [place] [facility] [address] [id number] [place] [address] Oct, [facility] [place] [facility] [address] [id number] [place] [address] Sep, [facility] [place] [facility] [address] [id number] [place] [address] Sep, [facility] [place] [facility] [address] [id number] [place] [address] 18 Sep, 2011 [facility] [place] [facility] [address] [id number] [place] [address] Sep, [facility] [place] [facility] [address] [id number] [place] [address] Sep, [facility] [place] [facility] [address] [id number] [place] [address] August, [facility] [place] [facility] [address] [id number] [place] [address] August, [facility] [place] [facility] [address] [id number] [place] [address] August, [facility] [place] [facility] [address] [id number] [place] [address] August, [facility] [place] [facility] [address] [id number] [place] [address] August, [facility] [place] [facility] [address] [id number] [place] [address] August, [facility] [place] [facility] [address] [id number] [place] [address] August, [facility] [place] [facility] [address] [id number] [place] [address] August, [facility] [place] [facility] [address] [id number] [place] [address] August, [facility] [place] [facility] [address] [id number] [place] [address] Jul, [facility] [place] [facility] [address] [id number] [place] [address] Jul, [facility] [place] [facility] [address] [id number] [place] [address] Jul, [facility] [place] [facility] [address] [id number] [place] [address] 04 Jul, 2011 [facility] [place] [facility] [address] [id number] [place] [address] 27 Jun, 2011 [facility] [place] [facility] [address] [id number] [place] [address] Jun, [facility] [place] [facility] [address] [id number] [place] [address] Jun, [facility] [place] [facility] [address] [id number] [facility] [place] [address] 27 May, 2011 [facility] [place] [facility] [address] [id number] [place] [address] 24 May, 2011 [facility] [place] [facility] [address] [facility] [id number] [facility] [place] [address] 20 May, 2011 [facility] [place] [facility] [address] [id number] [place] [address] 16 May, 2011 [facility] [place] [facility] [address] [facility] [id number] [facility] [place] [address] 15 May, 2011 [facility] [place] [facility] [address] [id number] [place] [address] 14 May, 2011 [facility] [place] [facility] [address] [id number] [place] [address] 10 May, 2011 [facility] [place] [facility] [address] [id number] [place] [address] 09 May, 2011 [facility] [place] [facility] [address] [id number] [place] [address] 02 May, 2011 [facility] [place] [facility] [address] [id number] [place] [address] 30 Apr, 2011 [facility] [place] [facility] [address] [id number] [place] [address] Apr, [facility] [place] [facility] [address] [id number] [place] [address] Apr, [facility] [place] [facility] [address] [id number] [place] [address] 17 Apr, 2011 [facility] [place] [facility] [address] [id number] [place] [address] 16 Apr, 2011 [facility] [place] [facility] [address] [id number] [place] [address] 13 Apr, 2011 [facility] [place] [facility] [address] [id number] [place] [address] 09 Apr, 2011 [facility] [place] [facility] [id number] [place] [address] Apr, [facility] [id number] [place] [address] Apr, [facility] [id number] [place] [address] Apr, [facility] [address] [address] Apr, [facility] [address] [address] Mar, [facility] [address] [address] Mar, [facility] [address] [address] Mar, [facility] [address] [address] Mar, [facility] [address] [address] Feb, [facility] [address] [id number] [place] [address] Feb, [facility] [address] [address] Jan, [facility] [address] [address] Nov, IMMUNIZATIONS No Known Immunizations SOCIAL HISTORY [...] laser treatment for glaucoma Hospitalization History [facility] [place]- Right side and back pain related to fall, hurts to breathe (ED at 7 pm) 06/07/2017 Hospitalization History [facility] ED [place]- Anxiety ( went to ED at 1200) 06/07/2017 Hospitalization History COPD exacerbation - [facility] 2017 Hospitalization History Blood clot, port placement - [facility] 09/2017
--- OUTSIDE RECORDS SUMMARY | 2019-09-01 14:43 | XMS REPORT ---
Author Author RADHA Sophianaren OLIVA [facility] Address [address] [place] [address] Care Team Providers Care Cigar Tobacco Processing Supervisor Name Role Phone RADHAGASPER MCPHERSONY Unavailable PROBLEMS Type Condition ICD9-CM Code ZZU15-UM Code Onset Dates Condition S tatus SNOMED Code Problem Proteinuria R80.9 Active 54270923 Problem Essential hypertension I10 Active 70448809 Problem Anxiety F41.9 Active 70051045 Problem Type 2 diabetes mellitus without complication E11. 9 Active 78006017 Problem Hyperlipidemia, unspecified hyperlipidemia E78.5 Active 65699608 Problem Major depressive disorder, recurrent episode, un specified severity F33.9 Active 58995440 Problem Sciatica, unspecified laterality M54.30 Active 02093260 Problem Acute cystitis with hematuria N30.01 Active 14301430 Problem Chronic pain syndrome G89.4 Active 262167241 Problem Exacerbation of systemic lupus M32.9 Active 71831343 Problem Generalized abdominal pain R10.84 Act sree 829942057 Problem Carpal tunnel syndrome, right upper limb G56.01 Active 23177323 Problem History of small bowel obstruction Z87.19 Active 047499771 Problem History of pulmonary embolism Z86.711 Active 374762844 Problem Presence of IVC filter Z95.828 Active 943753662 Problem Port catheter in place Z95.828 Active 508046554 Problem Gastroesophageal reflux disease, esophagitis pre sence not specified K21.9 Active 103211596 Problem Chronic pancreatitis, unspecified pancreatitis type K86.1 Active 471418833 Problem Hypothyroidism, unspecified type E03.9 Active 62601537 Problem Vitamin D deficiency E55.9 Active 77114016 Problem Nausea R11.0 Active 732131944 Problem Pneumonia due to infectious organism, unspecified laterality, unspecified part of lung J18.9 Active 312 376269 Problem Gastroesophageal reflux disease without esophagitis K21.9 Active 369041318 Problem Violation of controlled substance agreement Z91.14 Active 493664259 Problem Obstructive sleep apnea G47.33 Active 42661977 Problem Hypertension, benign I10 Active 86328754 Problem Venous insufficiency I87.2 Active 09216101 Problem Chronic obstructive pulmonary disease, unspecified COPD ty pe J44.9 Active 51035796 Problem Tobacco abuse counseling Z71.6 Activ e 93319816 Problem 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 A ctive 798795733 Problem Opiate dependence, continuous F11.20 Active 887366180 Problem Cannabis abuse with physiological dependence F12.1 0 Active 05890086 ALLERGIES No Information ENCOUNTERS Encounter Location Date Diagnosis [facility] [address] [address] May, [place] [address] [address] Apr, Tobacco abuse Z72.0 ; Hypertension, stefan gn I10 and Tobacco abuse counseling Z71.6 [place] [address] [address] Sep, [place] [address] [address] Sep, [facility] [address] [address] Sep, Essential hypertension I10 [place] [address] [address] Sep, [facility] [address] [address] Sep, [place] [address] [address] Sep, Neck mass R22.1 [facility] [address] [address] August, Neck mass R22.1 [facility] [address] [facility] [id number] [address] [place] [address] Feb, Left foot pain M79.672 [facility] [address] [address] Jun, Chronic pain syndrome G89.4 [facility] [id number] [id number] May, [facility] [address] [place] [id number] [place] [address] May, [facility] [address] [place] [id number] [place] [address] May, Chronic pain syndrome G89.4 [facility] [address] [place] [id number] [place] [address] May, [facility] [address] [facility] [id number] [address] [place] [address] 10 May, 2017 Encounter for immunization Z 23 and Laceration of left index finger without foreign body without damage to nail, initial encounter S61.211A [place] [address] [address] 09 May, 2017 Chronic pain syndrome G89.4 [facility] [address] [place] [id number] [place] [address] May, [place] [address] [address] Apr, Cannabis abuse with physiological depend ence F12.10 ; Violation of controlled substance agreement Z91.14 and Opiate dependence, continuous F11.20 [place] [address] [place] [id number] [place] [address] Apr, Type 2 diabetes mellitus without complic ation E11.9 [facility] [address] [place] [id number] [place] [address] Apr, [place] [address] [address] Apr, Chronic pain syndrome G89.4 [facility] [address] [place] [id number] [place] [address] Apr, Viral syndrome B34.9 [facility] [address] [address] Apr, [facility] [address] [address] Mar, Chronic pain syndrome G89.4 [facility] [address] [address] Mar, [facility] [address] [address] Mar, [facility] [address] [address] Feb, Essential hypertension I10 ; Chronic nataly n syndrome G89.4 ; Hyperlipidemia, unspecified hyperlipidemia E78.5 ; 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 and Encounter for immunization Z23 [place] [address] [address] Feb, Chronic pain syndrome G89.4 [facility] [address] [address] Jan, Chronic pain syndrome G89.4 [facility] [address] [address] Jan, [facility] [address] [address] Jan, Bronchitis J40 ; Port catheter in place Z95.828 and Chronic pain syndrome G89.4 [facility] [address] [id number] [place] [id number] Jan, [facility] [address] [address] 22 Dec, 2016 Chronic pain syndrome G89.4 [facility] [address] [address] 18 Dec, 2016 Chronic pain syndrome G89.4 [facility] [address] [address] 08 Dec, 2016 [facility] [address] [address] Nov, [facility] [address] [address] Nov, Chronic pain syndrome G89.4 [facility] [address] [address] Oct, Chronic pain syndrome G89.4 [facility] [address] [address] Oct, [facility] [address] [address] Sep, Chronic pain syndrome G89.4 [facility] [address] [address] Sep, Exacerbation of systemic lupus M32.9 [facility] [address] [address] Sep, [facility] [address] [address] Sep, [facility] [address] [address] Sep, Nausea R11.0 [facility] [address] [address] August, Chronic pain syndrome G89.4 [facility] [address] [address] August, [facility] [address] [address] August, Chronic pain syndrome G89.4 [facility] [address] [address] Jul, Pneumonia due to infectious organism, un specified laterality, unspecified part of lung J18.9 and Tobacco abuse counseling Z71.6 [facility] [address] [address] Jul, Chronic pain syndrome G89.4 [facility] [address] [address] Jun, Essential hypertension I10 [facility] [address] [address] Jun, Pneumonia due to infectious organism, un specified laterality, unspecified part of lung J18.9 [place] [address] [address] Jun, Chronic pain syndrome G89.4 [place] [address] [address] May, Essential hypertension I10 ; Type 2 [...] reflux disease without esophagitis K21.9 [place] [address] [address] Apr, [address] [address] Apr, Pneumonia due to infectious organism, un specified laterality, unspecified part of lung J18.9 and Nausea R11.[address] [address] Apr, Essential hypertension I10 ; Chronic nataly n syndrome G89.4 ; Type 2 diabetes mellitus without complication E11.9 ; Hyperlipidemia, unspecified hyperlipidemia E78.5 ; Major depressive disorder, recurrent episode, unspecified severity F33.9 ; Sciatica, unspecified laterality M54.30 ; Chronic obstructive pulmonary disease, unspecified COPD type J44.9 ; Pneumonia due to infectious organism, unspecified laterality, unspecified part of lung J18.9 and Nausea R11.0 [facility] [address] [facility] [id number] [address] [place] [address] Mar, [address] [address] Mar, [place] [address] [address] Mar, [place] [address] [address] Mar, Anxiety F41.9 and Major depressive disor rita, recurrent episode, unspecified severity F33.9 [place] [address] [address] Mar, [place] [address] [address] Mar, [place] [address] [address] Mar, Generalized abdominal pain R10.84 ; Acut e cystitis with hematuria N30.01 and Essential hypertension I10 [facility] [address] [place] [address] Mar, Sore throat J02.9 and Exacer bation of systemic lupus M32.9 [place] [address] [address] Feb, Type 2 diabetes mellitus without complic [...] esophagitis presence not specified K21.9 [place] [address] [address] Feb, [place] [address] [address] Jan, [facility] [place] [id number] [place] [address] Jan, Right arm pain M79.[address] of right wrist, initial encounter S66.911A [place] [address] [address] Jan, [facility] [address] [facility] [id number] [address] [place] [address] 30 Dec, 2015 Generalized abdominal pain R 10.84 [place] [address] [address] Dec, Adenopathy R59.1 [place] [address] [address] 19 Dec, 2015 Bronchitis J40 [place] [address] [address] 14 Dec, 2015 [place] [address] [address] Dec, Essential hypertension I10 [place] [address] [address] Nov, [place] [address] [address] Nov, [place] [address] [address] Nov, Essential hypertension I10 ; Hyperlipide martha, [...] diabetes mellitus without complication E11.9 [place] [address] [address] Nov, [facility] [address] [address] Oct, Type 2 diabetes mellitus without complic ation E11.9 ; Essential hypertension I10 ; Other viral warts B07.8 ; [place] or callus L84 and Hyperlipidemia, unspecified hyperlipidemia E78.5 [facility] [address] [address] Sep, [facility] [address] [address] Sep, [facility] [address] [address] Jun, [facility] [address] [address] Jun, [facility] [address] [address] May, [facility] [address] [address] Apr, [facility] [address] [address] Feb, [facility] [address] [address] Feb, COPD exacerbation J44.1 and Acute upper respiratory infection J06.9 [facility] [address] [address] Feb, [facility] [address] [address] Feb, [facility] [address] [address] Feb, [facility] [address] [address] Feb, [facility] [address] [address] Jan, Left hip pain M25.552 [facility] [address] [id number] [place] [address] Jan, Essential hypertension I10 ; Chronic nataly n syndrome G89.4 ; Type 2 diabetes mellitus without complication E11.9 and Hyperlipidemia, unspecified hyperlipidemia E78.5 [facility] [address] [id number] [place] [address] 28 Jul, 2014 [facility] [address] [place] [id number] [place] [address] 14 Jul, 2014 [facility] [address] [id number] [place] [address] Jul, [facility] [address] [place] [id number] [place] [address] 25 Jun, 2014 [facility] [address] [place] [id number] [place] [address] Jun, [facility] [address] [place] [id number] [place] [address] 24 Jun, 2014 [facility] [address] [place] [id number] [place] [address] Jun, [facility] [address] [place] [id number] [place] [address] Jun, [facility] [address] [place] [id number] [place] [address] Jun, [facility] [address] [place] [id number] [place] [address] Jun, [facility] [address] [place] [id number] [place] [address] Jun, [facility] [address] [place] [id number] [place] [address] 18 Jun, 2014 [facility] [address] [place] [id number] [place] [address] 18 Jun, 2014 [facility] [address] [place] [id number] [place] [address] Jun, [facility] [address] [place] [id number] [place] [address] Jun, [facility] [place] [facility] [address] [facility] [id number] [place] [address] Apr, [facility] [place] [facility] [address] [id number] [place] [address] Apr, [facility] [place] [facility] [address] [id number] [place] [address] Apr, [facility] [place] [facility] [address] [id number] [place] [address] Apr, [facility] [place] [facility] [address] [id number] [place] [address] Apr, [facility] [place] [facility] [address] [id number] [place] [address] Apr, [facility] [place] [facility] [address] [id number] [place] [address] Apr, [facility] [place] [facility] [address] [id number] [place] [address] Apr, [facility] [place] [facility] [address] [id number] [place] [address] Mar, [facility] [place] [facility] [address] [id number] [place] [address] Mar, [facility] [place] [facility] [address] [id number] [place] [address] Mar, [facility] [place] [facility] [address] [id number] [place] [address] Mar, [facility] [place] [facility] [address] [id number] [place] [address] Mar, [facility] [place] [facility] [address] [id number] [place] [address] 18 Mar, 2014 [facility] [place] [facility] [address] [id number] [place] [address] 15 Mar, 2014 [facility] [place] [facility] [address] [id number] [place] [address] Mar, [facility] [place] [facility] [address] [id number] [place] [address] Mar, [facility] [place] [facility] [address] [id number] [place] [address] Mar, [facility] [place] [facility] [address] [id number] [place] [address] Mar, [facility] [place] [facility] [address] [id number] [place] [address] Mar, [facility] [place] [facility] [address] [id number] [place] [address] Mar, [facility] [place] [facility] [address] [id number] [place] [address] Feb, [facility] [place] [facility] [address] [id number] [place] [address] Feb, [facility] [place] [facility] [address] [place] [id number] [place] [address] Feb, [facility] [place] [facility] [address] [id number] [place] [address] Feb, [facility] [place] [facility] [address] [id number] [place] [address] Feb, [facility] [place] [facility] [address] [id number] [place] [address] Feb, [facility] [place] [facility] [address] [id number] [place] [address] Feb, [facility] [place] [facility] [address] [id number] [place] [address] Feb, [facility] [place] [facility] [address] [id number] [place] [address] Jan, [facility] [place] [facility] [address] [place] [id number] [place] [address] Jan, [facility] [place] [facility] [address] [id number] [place] [address] Jan, [facility] [place] [facility] [address] [place] [id number] [place] [address] Jan, [facility] [place] [facility] [address] [id number] [place] [address] Jan, [facility] [place] [facility] [address] [id number] [place] [address] Jan, [facility] [place] [facility] [address] [id number] [place] [address] Jan, 2013 [facility] [place] [facility] [address] [id number] [place] [address] Jan, [facility] [place] [facility] [address] [facility] [id number] [place] [address] Jan, 2013 [facility] [place] [facility] [address] [id number] [place] [address] 30 Dec, 2013 [facility] [place] [facility] [address] [id number] [place] [address] 30 Dec, 2013 [facility] [place] [facility] [address] [id number] [place] [address] 26 Dec, 2013 [facility] [place] [facility] [address] [id number] [place] [address] 26 Sep, 2013 [facility] [place] [facility] [address] [id number] [place] [address] 16 Sep, 2013 [facility] [place] [facility] [address] [id number] [place] [address] 16 Sep, 2013 [facility] [place] [facility] [address] [id number] [place] [address] 08 Sep, 2013 [facility] [place] [facility] [address] [id number] [place] [address] 08 Sep, 2013 [facility] [place] [facility] [address] [id number] [place] [address] 04 Sep, 2013 [facility] [place] [facility] [address] [id number] [place] [address] 04 Dec, 2013 [facility] [place] [facility] [address] [id number] [place] [address] 29 Nov, 2013 [facility] [place] [facility] [address] [id number] [place] [address] Nov, [facility] [place] [facility] [address] [id number] [place] [address] Nov, [facility] [place] [facility] [address] [facility] [id number] [facility] [place] [address] Nov, [facility] [place] [facility] [address] [id number] [facility] [place] [address] Nov, [facility] [place] [facility] [address] [facility] [id number] [facility] [place] [address] Nov, [facility] [place] [facility] [address] [facility] [id number] [place] [address] Nov, [facility] [place] [facility] [address] [id number] [facility] [place] [address] Nov, [facility] [place] [facility] [address] [id number] [facility] [place] [address] Nov, [facility] [place] [facility] [address] [id number] [facility] [place] [address] Nov, [facility] [place] [facility] [address] [facility] [id number] [facility] [place] [address] Nov, [facility] [place] [facility] [address] [id number] [facility] [place] [address] Nov, [facility] [place] [facility] [address] [id number] [place] [address] Nov, [facility] [place] [facility] [address] [id number] [facility] [place] [address] Oct, [facility] [place] [facility] [address] [facility] [id number] [facility] [place] [address] Oct, [facility] [place] [facility] [address] [id number] [facility] [place] [address] Oct, [facility] [place] [facility] [address] [facility] [id number] [place] [address] Oct, [facility] [place] [facility] [address] [id number] [place] [address] Oct, [facility] [place] [facility] [address] [facility] [id number] [place] [address] Oct, [facility] [place] [facility] [address] [facility] [id number] [place] [address] Sep, [facility] [place] [facility] [address] [facility] [id number] [place] [address] Sep, [facility] [place] [facility] [address] [id number] [place] [address] Sep, [facility] [place] [facility] [address] [facility] [id number] [place] [address] Sep, [facility] [place] [facility] [address] [id number] [place] [address] Sep, [facility] [place] [facility] [address] [id number] [place] [address] Sep, [facility] [address] [id number] [place] [address] Sep, [facility] [address] [id number] [place] [address] Sep, [facility] [address] [id number] [place] [address] Sep, [facility] [address] [id number] [place] [address] Sep, [facility] [address] [id number] [place] [address] Sep, [facility] [address] [id number] [place] [address] Sep, [facility] [address] [id number] [place] [address] August, [facility] [address] [id number] [place] [address] August, [facility] [address] [id number] [place] [address] Jul, [facility] [address] [id number] [place] [address] Jul, [facility] [address] [facility] [id number] [place] [address] Jul, [facility] [address] [facility] [id number] [place] [address] 24 Jul, 2013 [facility] [address] [id number] [place] [address] Jul, [facility] [address] [id number] [place] [address] Jul, [facility] [address] [facility] [id number] [place] [address] Jul, [facility] [address] [id number] [place] [address] 16 Jul, 2013 [facility] [address] [id number] [place] [address] Jul, [facility] [address] [id number] [place] [address] Jul, [facility] [address] [id number] [place] [address] Jul, [facility] [address] [id number] [place] [address] Jun, [facility] [address] [id number] [place] [address] Jun, [facility] [address] [id number] [place] [address] Jun, [facility] [address] [id number] [place] [address] Jun, [facility] [address] [id number] [place] [address] Jun, [facility] [address] [id number] [place] [address] Jun, [facility] [address] [id number] [place] [address] Jun, [facility] [address] [id number] [place] [address] Jun, [facility] [address] [facility] [id number] [place] [address] May, [facility] [address] [id number] [place] [address] May, [facility] [address] [id number] [place] [address] May, [facility] [address] [id number] [place] [address] May, [facility] [address] [id number] [place] [address] May, [facility] [place] [facility] [address] [id number] [place] [address] May, [facility] [place] [facility] [address] [id number] [place] [address] May, [facility] [place] [facility] [address] [id number] [place] [address] May, [facility] [place] [facility] [address] [id number] [place] [address] May, [facility] [place] [facility] [address] [id number] [place] [address] May, [facility] [place] [facility] [address] [id number] [place] [address] May, [facility] [place] [facility] [address] [id number] [place] [address] May, [facility] [place] [facility] [address] [id number] [place] [address] May, [facility] [place] [facility] [address] [id number] [place] [address] Apr, [facility] [place] [facility] [address] [id number] [place] [address] Apr, [facility] [place] [facility] [address] [id number] [place] [address] Apr, [facility] [address] [facility] [id number] [place] [address] Apr, [facility] [place] [facility] [address] [facility] [id number] [place] [address] Apr, [facility] [place] [facility] [address] [id number] [place] [address] Apr, [facility] [place] [facility] [address] [id number] [place] [address] Apr, [facility] [place] [facility] [address] [facility] [id number] [place] [address] Apr, [facility] [place] [facility] [address] [id number] [place] [address] Apr, [facility] [place] [facility] [address] [id number] [place] [address] Apr, [facility] [place] [facility] [address] [id number] [place] [address] Apr, [facility] [place] [facility] [address] [id number] [place] [address] Apr, [facility] [place] [facility] [address] [id number] [place] [address] Apr, [facility] [place] [facility] [address] [id number] [place] [address] Apr, [facility] [place] [facility] [address] [id number] [place] [address] Apr, [facility] [place] [facility] [address] [facility] [id number] [place] [address] Mar, [facility] [place] [facility] [address] [facility] [id number] [place] [address] Mar, [facility] [place] [facility] [address] [id number] [place] [address] Mar, [facility] [place] [facility] [address] [id number] [place] [address] Mar, [facility] [place] [facility] [address] [id number] [place] [address] 20 Mar, 2013 [facility] [place] [facility] [address] [id number] [place] [address] 20 Mar, 2013 [facility] [place] [facility] [address] [id number] [place] [address] 17 Mar, 2013 [facility] [place] [facility] [address] [id number] [place] [address] 17 Mar, 2013 [facility] [place] [facility] [address] [id number] [place] [address] Mar, [facility] [place] [facility] [address] [id number] [place] [address] Mar, [facility] [place] [facility] [address] [id number] [place] [address] Mar, [facility] [place] [facility] [address] [id number] [place] [address] Mar, [facility] [place] [facility] [address] [id number] [place] [address] Feb, [facility] [place] [facility] [address] [id number] [place] [address] Feb, [facility] [place] [facility] [id number] [place] [address] Feb, [facility] [place] [facility] [address] [id number] [place] [address] Feb, [facility] [place] [facility] [address] [id number] [place] [address] Feb, [facility] [place] [facility] [address] [id number] [place] [address] Feb, [facility] [place] [facility] [id number] [place] [address] Feb, [facility] [place] [facility] [address] [id number] [place] [address] Feb, [facility] [place] [facility] [address] [id number] [place] [address] Jan, [facility] [place] [facility] [address] [id number] [place] [address] Jan, [facility] [place] [facility] [address] [id number] [place] [address] Jan, [facility] [place] [facility] [address] [id number] [place] [address] Jan, [facility] [place] [facility] [address] [id number] [place] [address] Jan, [facility] [place] [facility] [address] [facility] [id number] [place] [address] Jan, [facility] [place] [facility] [address] [id number] [place] [address] Jan, [facility] [place] [facility] [address] [id number] [place] [address] Dec, [facility] [place] [facility] [address] [id number] [place] [address] Dec, [facility] [place] [facility] [address] [id number] [place] [address] Dec, [facility] [place] [facility] [address] [id number] [place] [address] Dec, [facility] [place] [facility] [address] [id number] [place] [address] Dec, [facility] [place] [facility] [address] [id number] [place] [address] Nov, [facility] [place] [facility] [address] [id number] [place] [address] Nov, [facility] [place] [facility] [address] [facility] [id number] [place] [address] Nov, [facility] [place] [facility] [address] [id number] [place] [address] Nov, [facility] [place] [facility] [address] [id number] [place] [address] Nov, [facility] [place] [facility] [address] [id number] [place] [address] Nov, [facility] [place] [facility] [address] [facility] [id number] [facility] [place] [address] Nov, [facility] [place] [facility] [address] [facility] [id number] [facility] [place] [address] Oct, [facility] [place] [facility] [address] [facility] [id number] [facility] [place] [address] Oct, [facility] [place] [facility] [address] [facility] [id number] [place] [address] Oct, [facility] [place] [facility] [address] [facility] [id number] [facility] [place] [address] Oct, [facility] [place] [facility] [address] [id number] [facility] [place] [address] Oct, [facility] [place] [facility] [address] [id number] [place] [address] Oct, [facility] [place] [facility] [address] [id number] [facility] [place] [address] Oct, [facility] [place] [facility] [address] [facility] [id number] [facility] [place] [address] Oct, [facility] [place] [facility] [address] [id number] [facility] [place] [address] Sep, [facility] [place] [facility] [address] [id number] [place] [address] Sep, [facility] [place] [facility] [address] [id number] [place] [address] Sep, [facility] [place] [facility] [address] [facility] [id number] [facility] [place] [address] Sep, [facility] [place] [facility] [address] [facility] [id number] [place] [address] Sep, [facility] [place] [facility] [address] [facility] [id number] [place] [address] Sep, [facility] [place] [facility] [address] [id number] [facility] [place] [address] August, [facility] [place] [facility] [address] [id number] [place] [address] August, [facility] [address] [id number] [place] [address] August, [facility] [place] [facility] [address] [id number] [place] [address] August, [facility] [place] [facility] [address] [id number] [place] [address] August, [facility] [place] [facility] [address] [id number] [place] [address] Jul, [facility] [place] [facility] [address] [id number] [place] [address] Jul, [facility] [place] [facility] [address] [id number] [place] [address] Jul, [facility] [place] [facility] [address] [id number] [place] [address] Jul, [facility] [place] [facility] [address] [id number] [place] [address] Jul, [facility] [place] [facility] [address] [id number] [place] [address] Jul, [facility] [place] [facility] [address] [id number] [place] [address] 14 Jun, 2012 [facility] [place] [facility] [address] [id number] [place] [address] Jun, [facility] [place] [facility] [address] [id number] [place] [address] Jun, [facility] [place] [facility] [address] [id number] [place] [address] Jun, [facility] [place] [facility] [address] [id number] [place] [address] 05 Jun, 2012 [facility] [place] [facility] [address] [id number] [place] [address] May, [facility] [place] [facility] [address] [id number] [place] [address] 13 May, 2012 [facility] [place] [facility] [address] [id number] [place] [address] May, [facility] [place] [facility] [address] [id number] [place] [address] Apr, [facility] [place] [facility] [address] [id number] [place] [address] Apr, [facility] [place] [facility] [address] [id number] [place] [address] Mar, [facility] [place] [facility] [address] [id number] [place] [address] Mar, [facility] [place] [facility] [address] [id number] [place] [address] Mar, [facility] [place] [facility] [address] [id number] [place] [address] Mar, [facility] [place] [facility] [address] [id number] [place] [address] Mar, [facility] [place] [facility] [address] [id number] [place] [address] Mar, [facility] [place] [facility] [address] [id number] [place] [address] Feb, [facility] [place] [facility] [address] [id number] [place] [address] Feb, [facility] [place] [facility] [address] [id number] [place] [address] Feb, [facility] [place] [facility] [address] [id number] [place] [address] Jan, [facility] [place] [facility] [address] [id number] [place] [address] Jan, [facility] [place] [facility] [address] [id number] [place] [address] Jan, [facility] [place] [facility] [address] [id number] [place] [address] 24 Jan, 2012 [facility] [place] [facility] [address] [id number] [place] [address] 24 Jan, 2012 [facility] [place] [facility] [address] [facility] [id number] [place] [address] Jan, [facility] [place] [facility] [address] [id number] [place] [address] 17 Jan, 2012 [facility] [place] [facility] [address] [id number] [place] [address] 16 Jan, 2012 [facility] [place] [facility] [address] [id number] [place] [address] Jan, [facility] [place] [facility] [address] [id number] [place] [address] Dec, [facility] [place] [facility] [address] [id number] [place] [address] Dec, [facility] [place] [facility] [address] [id number] [place] [address] Dec, [facility] [place] [facility] [address] [id number] [place] [address] Nov, [facility] [place] [facility] [address] [id number] [place] [address] Nov, [facility] [place] [facility] [address] [id number] [place] [address] Nov, [facility] [place] [facility] [address] [id number] [place] [address] Oct, [facility] [place] [facility] [address] [id number] [place] [address] Oct, [facility] [place] [facility] [address] [id number] [place] [address] Sep, [facility] [place] [facility] [address] [id number] [place] [address] Sep, [facility] [place] [facility] [address] [id number] [place] [address] 18 Sep, 2011 [facility] [place] [facility] [address] [id number] [place] [address] Sep, [facility] [place] [facility] [address] [id number] [place] [address] Sep, [facility] [place] [facility] [address] [id number] [place] [address] August, [facility] [place] [facility] [address] [id number] [place] [address] August, [facility] [place] [facility] [address] [id number] [place] [address] August, [facility] [place] [facility] [address] [id number] [place] [address] August, [facility] [place] [facility] [address] [id number] [place] [address] August, [facility] [place] [facility] [address] [id number] [place] [address] August, [facility] [place] [facility] [address] [id number] [place] [address] August, [facility] [place] [facility] [address] [id number] [place] [address] August, [facility] [place] [facility] [address] [id number] [place] [address] August, [facility] [place] [facility] [address] [id number] [place] [address] Jul, [facility] [place] [facility] [address] [id number] [place] [address] Jul, [facility] [place] [facility] [address] [id number] [place] [address] Jul, [facility] [place] [facility] [address] [id number] [place] [address] 04 Jul, 2011 [facility] [place] [facility] [address] [id number] [place] [address] 27 Jun, 2011 [facility] [place] [facility] [address] [id number] [place] [address] Jun, [facility] [place] [facility] [address] [id number] [place] [address] Jun, [facility] [place] [facility] [address] [id number] [facility] [place] [address] 27 May, 2011 [facility] [place] [facility] [address] [id number] [place] [address] 24 May, 2011 [facility] [place] [facility] [address] [facility] [id number] [facility] [place] [address] 20 May, 2011 [facility] [place] [facility] [address] [id number] [place] [address] 16 May, 2011 [facility] [place] [facility] [address] [facility] [id number] [facility] [place] [address] 15 May, 2011 [facility] [place] [facility] [address] [id number] [place] [address] 14 May, 2011 [facility] [place] [facility] [address] [id number] [place] [address] 10 May, 2011 [facility] [place] [facility] [address] [id number] [place] [address] 09 May, 2011 [facility] [place] [facility] [address] [id number] [place] [address] 02 May, 2011 [facility] [place] [facility] [address] [id number] [place] [address] 30 Apr, 2011 [facility] [place] [facility] [address] [id number] [place] [address] Apr, [facility] [place] [facility] [address] [id number] [place] [address] Apr, [facility] [place] [facility] [address] [id number] [place] [address] 17 Apr, 2011 [facility] [place] [facility] [address] [id number] [place] [address] 16 Apr, 2011 [facility] [place] [facility] [address] [id number] [place] [address] 13 Apr, 2011 [facility] [place] [facility] [address] [id number] [place] [address] 09 Apr, 2011 [facility] [place] [facility] [id number] [place] [address] Apr, [facility] [id number] [place] [address] Apr, [facility] [address] [id number] [place] [address] Apr, [facility] [address] [address] Apr, [facility] [address] [address] Mar, [facility] [address] [address] Mar, [facility] [address] [address] Mar, [facility] [address] [address] Mar, [facility] [address] [address] Feb, [facility] [id number] [place] [address] Feb, [facility] [address] [address] Jan, [facility] [address] [address] Nov, IMMUNIZATIONS No Known Immunizations SOCIAL HISTORY [...] laser treatment for glaucoma Hospitalization History [facility]- Right side and back pain related to fall, hurts to breathe (ED at 7 pm) 06/07/2017 Hospitalization History [facility] ED [place]- Anxiety ( went to ED at 1200) 06/07/2017 Hospitalization History COPD exacerbation - Gerald Pizano 2017 Hospitalization History Blood clot, port placement - Gerald Pizano 09/2017
--- OUTSIDE RECORDS SUMMARY | 2019-09-01 14:57 | XMS REPORT | Continuity of Care Document ---
Author Organization Unknown Address Unknown Phone Unavailable Allergies Active Description [...] Yes Toradol Drug Allergy 02/05/2011 Yes droperidol [id number] Drug Allerg y Severe SOB 02/22/[address] [id number] Dr ug Allergy Moderate SOB, DIAPHORETI 1 Yes Ativan Drug Allergy N/A N/A 08/31/2011 Yes Ativan 1 mg Tablet Drug Allerg y 08/31/2011 Yes aspirin [id number] Drug Allergy Unknown N/A 07/03/2013 Yes codeine [id number] Drug Allergy Unknown N/A 07/03/2013 Yes ketorolac tromethamine [id number] Drug Allergy Unknown N/A 07/03/2013 Yes metoclopramide HCl [id number] Drug Allergy Unknown N/A 07/03/2013 Yes povidone-iodine [id number] D rug Allergy Unknown RASH 07/03/2013 Yes prochlorperazine edisylate [id number] Drug Allergy Unknown N/A 07/03/2013 Yes prochlorperazine maleate [id number] Drug Allergy Unknown N/A 07/03/2013 Yes Soap [id number] Drug Allergy Unknown RASH 07/03/2013 Yes sumatriptan [id number] Drug Aller gy Unknown N/A 07/03/2013 Yes sumatriptan succinate [id number] Drug Allergy Unknown N/A 07/03/2013 Medications There is no data. Problems Date Dx Coded Attending Type Code Diagnosis Diagnosed By 10/19/2010 Ot 276.8 HYPO POTASSEMIA 10/19/[address] PAIN NOS 10/19/2010 Ot 786.52 TAMEKA NFUL RESPIRATION 10/23/2010 Ot 250.00 LETICIA B WALLY WO COMPL, TYPE II OR UNSPEC TY 10/23/2010 Ot 401.9 HYPE RTENSION NOS 10/23/2010 Ot 496 CHR AI RWAY OBSTRUCT NEC 10/23/2010 Ot 710.0 SYST LUPUS ERYTHEMATOSIS 10/23/2010 Ot 786.52 TAMEKA NFUL RESPIRATION 10/23/2010 Ot V58.69 OTH MED,LT,CURRENT USE 10/28/2010 Ot 244.9 HYPO THYROIDISM NOS 10/28/2010 Ot 272.4 HYPE RLIPIDEMIA NEC/NOS 10/28/2010 Ot 286.9 COAG ULAT DEFECT NEC/NOS 10/28/2010 Ot 305.1 TOBA HOME HEALTH ADMINISTRATOR USE DISORDER 10/28/2010 Ot 311 DEPRES SIVE DISORDER NEC 10/28/2010 Ot 338.29 OTH ER CHRONIC PAIN 10/28/2010 Ot 401.9 HYPE RTENSION NOS 10/28/2010 Ot 453.41 ACU TE VENOUS EMBOLISM THROMBOSIS DEEP 10/28/2010 Ot 453.77 CHR ON VENOUS EMBOLISM THROMBOSIS OF OT 10/28/2010 Ot 710.0 SYST LUPUS ERYTHEMATOSIS 10/28/2010 Ot 719.40 CHRISTIN NT PAIN-UNSPEC 10/28/2010 Ot 789.00 ABD OMINAL PAIN, UNSPECIFIED SITE 10/28/2010 Ot 996.1 MALF UNC VASC DEVICE/JAMES 10/28/2010 Ot V12.51 HX- VENOUS THROMBOSIS EMBOLISM 11/09/2010 496 CHRONI C AIRWAY OBSTRUCTION NOT ELSEWHERE CLASSIFIED 11/09/2010 710.0 SYST EMIC LUPUS ERYTHEMATOSUS 11/09/2010 496 CHRONI C AIRWAY OBSTRUCTION NOT ELSEWHERE CLASSIFIED 11/09/2010 710.0 SYST EMIC LUPUS ERYTHEMATOSUS 11/09/2010 COLTON POLLARD, HERMINIA 496 CHRONIC AIRWAY OBSTRUCTION NOT ELSEWHERE CLASSIFIED 11/09/2010 HERMINIA SEGURA MD 710.0 SYSTEMIC LUPUS ERYTHEMATOSUS 11/09/2010 HERMINIA SEGURA MD 496 CHRONIC AIRWAY OBSTRUCTION NOT ELSEWHERE CLASSIFIED 11/09/2010 HERMINIA SEGURA MD 710.0 SYSTEMIC LUPUS ERYTHEMATOSUS 11/09/2010 496 CHRONI C AIRWAY OBSTRUCTION NOT ELSEWHERE CLASSIFIED 11/09/2010 710.0 SYST EMIC LUPUS ERYTHEMATOSUS 11/09/2010 496 CHRONI C AIRWAY OBSTRUCTION NOT ELSEWHERE CLASSIFIED 11/09/2010 710.0 SYST EMIC LUPUS ERYTHEMATOSUS 11/09/2010 496 CHRONI C AIRWAY OBSTRUCTION NOT ELSEWHERE CLASSIFIED 11/09/2010 710.0 SYST EMIC LUPUS ERYTHEMATOSUS 11/09/2010 496 CHRONI C AIRWAY OBSTRUCTION NOT ELSEWHERE CLASSIFIED 11/09/2010 710.0 SYST EMIC LUPUS ERYTHEMATOSUS 11/09/2010 ANDERSON SEGURA PSYD L 496 CHRONIC AIRWAY OBSTRUCTION NOT ELSEWHERE CLASSIFIED 11/09/2010 ANDERSON SEGURA PSYD ANN L 710.0 SYSTEMIC LUPUS ERYTHEMATOSUS 11/09/2010 HICKEY DO FADUMO K 496 CHRONIC AIRWAY OBSTRUCTION NOT ELSEWHERE CLASSIFIED 11/09/2010 HICKEY DO FADUMO K 710.0 SYSTEMIC LUPUS ERYTHEMATOSUS 11/09/2010 HICKEY DO FADUMO K 496 CHRONIC AIRWAY OBSTRUCTION NOT ELSEWHERE CLASSIFIED 11/09/2010 HICKEY DO FADUMO K 710.0 SYSTEMIC LUPUS ERYTHEMATOSUS 11/09/2010 ANDERSON SEGURA PSYD L 496 CHRONIC AIRWAY OBSTRUCTION NOT ELSEWHERE CLASSIFIED 11/09/2010 ANDERSON SEGURA PSYD L 710.0 SYSTEMIC LUPUS ERYTHEMATOSUS 11/09/2010 HAZEL GARCIA MD 496 CHRONIC AIRWAY OBSTRUCTION NOT ELSEWHERE CLASSIFIED 11/09/2010 HAZEL GARCIA MD 710 .0 SYSTEMIC LUPUS ERYTHEMATOSUS 11/09/2010 HAZEL GARCIA MD 496 CHRONIC AIRWAY OBSTRUCTION NOT ELSEWHERE CLASSIFIED 11/09/2010 HAZEL GARCIA MD 710 .0 SYSTEMIC LUPUS ERYTHEMATOSUS 11/09/2010 HAZEL GARCIA MD 49Florentino CHRONIC AIRWAY OBSTRUCTION NOT ELSEWHERE CLASSIFIED 11/09/2010 HAZEL GARCIA MD 710 .0 SYSTEMIC LUPUS ERYTHEMATOSUS 11/09/2010 JUSTICE TRIPATHI APRN A 49 6 CHRONIC AIRWAY OBSTRUCTION NOT ELSEWHERE CLASSIFIED 11/09/2010 JUSTICE TRIPATHI APRN A 71 0.0 SYSTEMIC LUPUS ERYTHEMATOSUS 11/09/2010 RADHA MD, HAZEL N 496 CHRONIC AIRWAY OBSTRUCTION NOT ELSEWHERE CLASSIFIED 11/09/2010 HAZEL GARCIA MD N 710 .0 SYSTEMIC LUPUS ERYTHEMATOSUS 11/09/2010 HAZEL GARCIA MD N 496 CHRONIC AIRWAY OBSTRUCTION NOT ELSEWHERE CLASSIFIED 11/09/2010 HAZEL GARCIA MD N 710 .0 SYSTEMIC LUPUS ERYTHEMATOSUS 11/09/2010 HAZEL GARCIA MD N 496 CHRONIC AIRWAY OBSTRUCTION NOT ELSEWHERE CLASSIFIED 11/09/2010 HAZEL GARCIA MD N 710 .0 SYSTEMIC LUPUS ERYTHEMATOSUS 11/09/2010 HAZEL GARCIA MD N 496 CHRONIC AIRWAY OBSTRUCTION NOT ELSEWHERE CLASSIFIED 11/09/2010 HAZEL GARCIA MD N 710 .0 SYSTEMIC LUPUS ERYTHEMATOSUS 11/09/2010 496 CHRONI C AIRWAY OBSTRUCTION NOT ELSEWHERE CLASSIFIED 11/09/2010 710.0 SYST EMIC LUPUS ERYTHEMATOSUS 11/09/2010 HAZEL GARCIA MD N 496 CHRONIC AIRWAY OBSTRUCTION NOT ELSEWHERE CLASSIFIED 11/09/2010 HAZEL GARCIA MD N 710 .0 SYSTEMIC LUPUS ERYTHEMATOSUS 11/09/2010 HAZEL GARCIA MD N 496 CHRONIC AIRWAY OBSTRUCTION NOT ELSEWHERE CLASSIFIED 11/09/2010 HAZEL GARCIA MD N 710 .0 SYSTEMIC LUPUS ERYTHEMATOSUS 11/09/2010 HAZEL GARCIA MD N 496 CHRONIC AIRWAY OBSTRUCTION NOT ELSEWHERE CLASSIFIED 11/09/2010 HAZEL GARCIA MD N 710 .0 SYSTEMIC LUPUS ERYTHEMATOSUS 11/09/2010 HAZEL GARCIA MD N 496 CHRONIC AIRWAY OBSTRUCTION NOT ELSEWHERE CLASSIFIED 11/09/2010 HAZEL GARCIA MD N 710 .0 SYSTEMIC LUPUS ERYTHEMATOSUS 11/09/2010 HICKEY DO FADUMO K 496 CHRONIC AIRWAY OBSTRUCTION NOT ELSEWHERE CLASSIFIED 11/09/2010 HICKEY DO, FADUMO K 710.0 SYSTEMIC LUPUS ERYTHEMATOSUS 11/09/2010 HAZEL GARCIA MD N 496 CHRONIC AIRWAY OBSTRUCTION NOT ELSEWHERE CLASSIFIED 11/09/2010 HAZEL GARCIA MD N 710 .0 SYSTEMIC LUPUS ERYTHEMATOSUS 11/09/2010 HAZEL GARCIA MD N 496 CHRONIC AIRWAY OBSTRUCTION NOT ELSEWHERE CLASSIFIED 11/09/2010 HAZEL GARCIA MD N 710 .0 SYSTEMIC LUPUS ERYTHEMATOSUS 11/09/2010 496 CHRONI C AIRWAY OBSTRUCTION NOT ELSEWHERE CLASSIFIED 11/09/2010 710.0 SYST EMIC LUPUS ERYTHEMATOSUS 11/09/2010 HAZEL GARCIA MD N 496 CHRONIC AIRWAY OBSTRUCTION NOT ELSEWHERE CLASSIFIED 11/09/2010 HAZEL GARCIA MD 710 .0 SYSTEMIC LUPUS ERYTHEMATOSUS 11/09/2010 FADUMO HICKEY DO 496 CHRONIC AIRWAY OBSTRUCTION NOT ELSEWHERE CLASSIFIED 11/09/2010 FADUMO HICKEY DO 710.0 SYSTEMIC LUPUS ERYTHEMATOSUS 11/28/2010 Ot 244.9 HYPO THYROIDISM NOS 11/28/2010 Ot 272.4 HYPE RLIPIDEMIA NEC/NOS 11/28/2010 Ot 286.9 COAG ULAT DEFECT NEC/NOS 11/28/2010 Ot 401.9 HYPE RTENSION NOS 11/28/2010 Ot 710.0 SYST LUPUS ERYTHEMATOSIS 11/28/[address] PAIN NOS 11/28/2010 Ot 786.52 TAMEKA NFUL RESPIRATION 11/28/2010 Ot V12.51 HX- VENOUS THROMBOSIS EMBOLISM 11/28/2010 Ot V58.69 OTH MED,LT,CURRENT USE 11/30/2010 Ot 729.5 PAIN IN LIMB 12/01/2010 729.1 Myal giovani And Myositis Unspecified 12/01/2010 729.1 Myal giovani And Myositis Unspecified 12/01/2010 HERMINIA SEGURA MD 729.1 Myalgia And Myositis Unspecified 12/01/2010 HERMINIA SEGURA MD 729.1 Myalgia And Myositis Unspecified 12/01/2010 729.1 Myal giovani And Myositis Unspecified 12/01/2010 729.1 Myal giovani And Myositis Unspecified 12/01/2010 729.1 Myal giovani And Myositis Unspecified 12/01/2010 729.1 Myal giovani And Myositis Unspecified 12/01/2010 ANDERSON SEGURA PSYD 729.1 Myalgia And Myositis Unspecified 12/01/2010 FADUMO HICKEY DO 729.1 Myalgia And Myositis Unspecified 12/01/2010 FADUMO HICKEY DO 729.1 Myalgia And Myositis Unspecified 12/01/2010 ANDERSON SEGURA PSYD 729.1 Myalgia And Myositis Unspecified 12/01/2010 HAZEL GARCIA MD 729 .1 Myalgia And Myositis Unspecified 12/01/2010 HAZEL GARCIA MD N 729 .1 Myalgia And Myositis Unspecified 12/01/2010 HAZEL GARCIA MD N 729 .1 Myalgia And Myositis Unspecified 12/01/2010 JUSTICE TRIPATHI APRN 72 9.1 Myalgia And Myositis Unspecified 12/01/2010 HAZEL GARCIA MD N 729 .1 Myalgia And Myositis Unspecified 12/01/2010 HAZEL GARCIA MD N 729 .1 Myalgia And Myositis Unspecified 12/01/2010 HAZEL GARCIA MD N 729 .1 Myalgia And Myositis Unspecified 12/01/2010 HAZEL GARCIA MD N 729 .1 Myalgia And Myositis Unspecified 12/01/2010 729.1 Myal giovani And Myositis Unspecified 12/01/2010 HAZEL GARCIA MD N 729 .1 Myalgia And Myositis Unspecified 12/01/2010 HAZEL GARCIA MD N 729 .1 Myalgia And Myositis Unspecified 12/01/2010 HAZEL GARCIA MD N 729 .1 Myalgia And Myositis Unspecified 12/01/2010 HAZEL GARCIA MD N 729 .1 Myalgia And Myositis Unspecified 12/01/2010 FADUMO HICKEY DO 729.1 Myalgia And Myositis Unspecified 12/01/2010 HAZEL GARCIA MD N 729 .1 Myalgia And Myositis Unspecified 12/01/2010 HAZEL GARCIA MD N 729 .1 Myalgia And Myositis Unspecified 12/01/2010 729.1 Myal giovani And Myositis Unspecified 12/01/2010 HAZEL GARCIA MD N 729 .1 Myalgia And Myositis Unspecified 12/01/2010 FADUMO HICKEY DO 729.1 Myalgia And Myositis Unspecified 02/05/2011 466.0 Acut e Bronchitis 02/05/2011 466.0 Acut e Bronchitis 02/05/2011 HERMINIA SEGURA MD 466.0 Acute Bronchitis 02/05/2011 HERMINIA SEGURA MD 466.0 Acute Bronchitis 02/05/2011 466.0 Acut e Bronchitis 02/05/2011 466.0 Acut e Bronchitis 02/05/2011 466.0 Acut e Bronchitis 02/05/2011 466.0 Acut e Bronchitis 02/05/2011 ANDERSON SEGURA PSYD L 466.0 Acute Bronchitis 02/05/2011 FAHEEM HICKEY DOA K 466.0 Acute Bronchitis 02/05/2011 FADUMO HICKEY DO K 466.0 Acute Bronchitis 02/05/2011 ANDERSON SEGURA PSYD L 466.0 Acute Bronchitis 02/05/2011 HAZEL GARCIA MD 466 .0 Acute Bronchitis 02/05/2011 HAZEL GARCIA MD 466 .0 Acute Bronchitis 02/05/2011 HAZEL GARCIA MD 466 .0 Acute Bronchitis 02/05/2011 JUSTICE TRIPATHI APRN 46 6.0 Acute Bronchitis 02/05/2011 HAZEL GARCIA MD 466 .0 Acute Bronchitis 02/05/2011 HAZEL GARCIA MD 466 .0 Acute Bronchitis 02/05/2011 HAZEL GARCIA MD 466 .0 Acute Bronchitis 02/05/2011 HAZEL GARCIA MD 466 .0 Acute Bronchitis 02/05/2011 466.0 Acut e Bronchitis 02/05/2011 HAZEL GARCIA MD 466 .0 Acute Bronchitis 02/05/2011 HAZEL GARCIA MD 466 .0 Acute Bronchitis 02/05/2011 HAZEL GARCIA MD 466 .0 Acute Bronchitis 02/05/2011 HAZEL GARCIA MD 466 .0 Acute Bronchitis 02/05/2011 FADUMO HICKEY DO K 466.0 Acute Bronchitis 02/05/2011 HAZEL GARCIA MD 466 .0 Acute Bronchitis 02/05/2011 HAZEL GARCIA MD 466 .0 Acute Bronchitis 02/05/2011 466.0 Acut e Bronchitis 02/05/2011 HAZEL GARCIA MD N 466 .0 Acute Bronchitis 02/05/2011 FADUMO HICKEY DO K 466.0 Acute Bronchitis 02/11/2011 Ot 451.89 THR OMBOPHLEBITIS NEC 02/11/2011 Ot 611.0 INFL AM DISEASE OF BREAST 02/11/2011 Ot 611.71 MAS TODYNIA 02/22/2011 Ot 286.9 COAG ULAT DEFECT NEC/NOS 02/22/2011 Ot 401.9 HYPE RTENSION NOS 02/22/2011 Ot 459.81 LUCAS OUS INSUFFICIENCY NOS 02/22/2011 Ot 496 CHR LYNNE HOLLEY OBSTRUCT NEC 02/22/2011 Ot 710.0 SYST LUPUS ERYTHEMATOSIS 02/22/2011 Ot V12.51 HX- VENOUS THROMBOSIS EMBOLISM 02/22/2011 Ot V58.69 OTH MED,LT,CURRENT USE 03/06/2011 Ot 496 CHR LYNNE HOLLEY OBSTRUCT NEC 03/06/2011 Ot 786.05 CALLIE RTNESS OF BREATH 04/19/2011 Ot 244.9 HYPO THYROIDISM NOS 04/19/2011 Ot 249.00 SEC DIABETES MELLITUS W/OUT MENTION COMP 04/19/2011 Ot 272.4 HYPE RLIPIDEMIA NEC/NOS 04/19/2011 Ot 305.1 TOBA HOME HEALTH ADMINISTRATOR USE DISORDER 04/19/2011 Ot 401.9 HYPE RTENSION NOS 04/19/2011 Ot 416.2 THIRD RAIL INSTALLER KOLBY PULMONARY EMBOLISM 04/19/2011 Ot 453.50 CHR ONIC VENOUS EMBOLISM THROMBOSIS UNS 04/19/2011 Ot 496 CHR LYNNE HOLLEY OBSTRUCT NEC 04/19/2011 Ot 710.0 SYST LUPUS ERYTHEMATOSIS 04/19/[address] ABSENCE OF GENITAL ORGANS 04/19/2011 Ot V58.63 JOSE G- TERM(CURRENT)USE OF ANTIPLATELET/AN 04/19/2011 Ot V58.69 OTH MED,LT,CURRENT USE 04/19/2011 Ot V58.81 FIT /ADJ VASCULAR CATHETER 04/20/2011 401.1 HYPE RTENSION, BENIGN ESSENTIAL 04/20/2011 782.3 Edema 04/20/2011 784.0 Headache 04/20/2011 401.1 HYPE RTENSION, BENIGN ESSENTIAL 04/20/2011 782.3 Edema 04/20/2011 784.0 Headache 04/20/2011 HERMINIA SEGURA MD 401.1 HYPERTENSION, BENIGN ESSENTIAL 04/20/2011 COLTON POLLARD, HERMINIA 782.3 Edema 04/20/2011 HERMINIA SEGURA MD 784.0 Headache 04/20/2011 HERMINIA SEGURA MD 401.1 HYPERTENSION, BENIGN ESSENTIAL 04/20/2011 HERMINIA SEGURA MD 782.3 Edema 04/20/2011 HERMINIA SEGURA MD 784.0 Headache 04/20/2011 401.1 HYPE RTENSION, BENIGN ESSENTIAL 04/20/2011 782.3 Edema 04/20/2011 784.0 Headache 04/20/2011 401.1 HYPE RTENSION, BENIGN ESSENTIAL 04/20/2011 782.3 Edema 04/20/2011 784.0 Headache 04/20/2011 401.1 HYPE RTENSION, BENIGN ESSENTIAL 04/20/2011 782.3 Edema 04/20/2011 784.0 Headache 04/20/2011 401.1 HYPE RTENSION, BENIGN ESSENTIAL 04/20/2011 782.3 Edema 04/20/2011 784.0 Headache 04/20/2011 ANDERSON SEGURA PSYD 401.1 HYPERTENSION, BENIGN ESSENTIAL 04/20/2011 ANDERSON SEGURA PSYD 782.3 Edema 04/20/2011 ANDERSON SEGURA PSYD 784.0 Headache 04/20/2011 HICKEY DO, FADUMO K 401.1 HYPERTENSION, BENIGN ESSENTIAL 04/20/2011 HICKEY DO, FADUMO K 782.3 Edema 04/20/2011 HICKEY DO, FADUMO K 784.0 Headache 04/20/2011 HICKEY DO, FADUMO K 401.1 HYPERTENSION, BENIGN ESSENTIAL 04/20/2011 HICKEY DO, FADUMO K 782.3 Edema 04/20/2011 HICKEY DO, FADUMO K 784.0 Headache 04/20/2011 ANDERSON SEGURA PSYD L 401.1 HYPERTENSION, BENIGN ESSENTIAL 04/20/2011 ANDERSON SEGURA PSYD L 782.3 Edema 04/20/2011 ANDERSON SEGURA PSYD L 784.0 Headache 04/20/2011 HAZEL GARCIA MD 401 .1 HYPERTENSION, BENIGN ESSENTIAL 04/20/2011 HAZEL GARCIA MD N 782 .3 Edema 04/20/2011 HAZEL GARCIA MD N 784 .0 Headache 04/20/2011 HAZEL GARCIA MD 401 .1 HYPERTENSION, BENIGN ESSENTIAL 04/20/2011 HAZEL GARCIA MD N 782 .3 Edema 04/20/2011 HAZEL GARCIA MD N 784 .0 Headache 04/20/2011 RADHA MD, HAZEL N 401 .1 HYPERTENSION, BENIGN ESSENTIAL 04/20/2011 RADHA POLLARD, HAZEL N 782 .3 Edema 04/20/2011 HAZEL GARCIA MD N 784 .0 Headache 04/20/2011 DEUCE PSYCHOLOGIST EXPERIMENTAL, JUSTICE A 40 1.1 HYPERTENSION, BENIGN ESSENTIAL 04/20/2011 DEUCE PSYCHOLOGIST EXPERIMENTAL, JUSTICE A 78 2.3 Edema 04/20/2011 DEUCE PSYCHOLOGIST EXPERIMENTAL, JUSTICE A 78 4.0 Headache 04/20/2011 HAZEL GARCIA MD N 401 .1 HYPERTENSION, BENIGN ESSENTIAL 04/20/2011 HAZEL GARCIA MD N 782 .3 Edema 04/20/2011 HAZEL GARCIA MD N 784 .0 Headache 04/20/2011 HAZEL GARCIA MD N 401 .1 HYPERTENSION, BENIGN ESSENTIAL 04/20/2011 HAZEL GARCIA MD N 782 .3 Edema 04/20/2011 HAZEL GARCIA MD N 784 .0 Headache 04/20/2011 HAZEL GARCIA MD N 401 .1 HYPERTENSION, BENIGN ESSENTIAL 04/20/2011 GASPER GARCIA MDY N 782 .3 Edema 04/20/2011 GASPER GARCIA MDY N 784 .0 Headache 04/20/2011 HAZEL GARCIA MD N 401 .1 HYPERTENSION, BENIGN ESSENTIAL 04/20/2011 GASPER GARCIA MDY N 782 .3 Edema 04/20/2011 GASPER GARCIA MDY N 784 .0 Headache 04/20/2011 401.1 HYPE RTENSION, BENIGN ESSENTIAL 04/20/2011 782.3 Edema 04/20/2011 784.0 Headache 04/20/2011 HAZEL GARCIA MD N 401 .1 HYPERTENSION, BENIGN ESSENTIAL 04/20/2011 GASPER GARCIA MDY N 782 .3 Edema 04/20/2011 GASPER GARCIA MDY N 784 .0 Headache 04/20/2011 HAZEL GARCIA MD N 401 .1 HYPERTENSION, BENIGN ESSENTIAL 04/20/2011 GASPER GARCIA MDY N 782 .3 Edema 04/20/2011 GASPER GARCIA MDY N 784 .0 Headache 04/20/2011 HAZEL GARCIA MD N 401 .1 HYPERTENSION, BENIGN ESSENTIAL 04/20/2011 HAZEL GARCIA MD N 782 .3 Edema 04/20/2011 HAZEL GARCIA MD N 784 .0 Headache 04/20/2011 HAZEL GARCIA MD N 401 .1 HYPERTENSION, BENIGN ESSENTIAL 04/20/2011 RADHA POLLARD, HAZEL N 782 .3 Edema 04/20/2011 HAZEL GARCIA MD N 784 .0 Headache 04/20/2011 HICKEY DO, FADUMO K 401.1 HYPERTENSION, BENIGN ESSENTIAL 04/20/2011 HICKEY DO, FADUMO K 782.3 Edema 04/20/2011 HICKEY DO, FADUMO K 784.0 Headache 04/20/2011 HAZEL GARCIA MD N 401 .1 HYPERTENSION, BENIGN ESSENTIAL 04/20/2011 HAZEL GARCIA MD N 782 .3 Edema 04/20/2011 RADHA POLLARD, HAZEL N 784 .0 Headache 04/20/2011 HAZEL GARCIA MD N 401 .1 HYPERTENSION, BENIGN ESSENTIAL 04/20/2011 HAZEL GARCIA MD N 782 .3 Edema 04/20/2011 HAZEL GARCIA MD N 784 .0 Headache 04/20/2011 401.1 HYPE RTENSION, BENIGN ESSENTIAL 04/20/2011 782.3 Edema 04/20/2011 784.0 Headache 04/20/2011 HAZEL GARCIA MD N 401 .1 HYPERTENSION, BENIGN ESSENTIAL 04/20/2011 RADHA POLLARD, HAZEL N 782 .3 Edema 04/20/2011 GASPER GARCIA MDY N 784 .0 Headache 04/20/2011 HICKEY , FADUMO K 401.1 HYPERTENSION, BENIGN ESSENTIAL 04/20/2011 HICKEY DO, FADUMO K 782.3 Edema 04/20/2011 HICKEY , FADUMO K 784.0 Headache 04/23/2011 729.5 Pain In Limb 04/23/2011 729.5 Pain In Limb 04/23/2011 HERMINIA SEGURA MD 729.5 Pain In Limb 04/23/2011 HERMINIA SEGURA MD 729.5 Pain In Limb 04/23/2011 729.5 Pain In Limb 04/23/2011 729.5 Pain In Limb 04/23/2011 729.5 Pain In Limb 04/23/2011 729.5 Pain In Limb 04/23/2011 ANDERSON SEGURA PSYD 729.5 Pain In Limb 04/23/2011 HICKEY FADUMO BOWIE K 729.5 Pain In Limb 04/23/2011 FADUMO HICKEY DO K 729.5 Pain In Limb 04/23/2011 ANDERSON SEGURA PSYD 729.5 Pain In Limb 04/23/2011 HAZEL GARCIA MD N 729 .5 Pain In Limb 04/23/2011 HAZEL GARCIA MD N 729 .5 Pain In Limb 04/23/2011 HAZEL GARCIA MD N 729 .5 Pain In Limb 04/23/2011 JUSTICE TRIPATHI APRN 72 9.5 Pain In Limb 04/23/2011 HAZEL GARCIA MD N 729 .5 Pain In Limb 04/23/2011 HAZEL GARCIA MD 729 .5 Pain In Limb 04/23/2011 HAZEL GARCIA MD N 729 .5 Pain In Limb 04/23/2011 HAZEL GARCIA MD 729 .5 Pain In Limb 04/23/2011 729.5 Pain In Limb 04/23/2011 HAZEL GARCIA MD N 729 .5 Pain In Limb 04/23/2011 HAZEL GARCIA MD N 729 .5 Pain In Limb 04/23/2011 HAZEL GARCIA MD N 729 .5 Pain In Limb 04/23/2011 HAZEL GARCIA MD N 729 .5 Pain In Limb 04/23/2011 FADUMO HICKEY DO K 729.5 Pain In Limb 04/23/2011 HAZEL GARCIA MD N 729 .5 Pain In Limb 04/23/2011 HAZEL GARCIA MD N 729 .5 Pain In Limb 04/23/2011 729.5 Pain In Limb 04/23/2011 HAZEL GARCIA MD N 729 .5 Pain In Limb 04/23/2011 FADUMO HICKEY DO 729.5 Pain In Limb 04/25/2011 Ot 244.9 HYPO THYROIDISM NOS 04/25/2011 Ot 272.4 HYPE RLIPIDEMIA NEC/NOS 04/25/2011 Ot 311 DEPRES SIVE DISORDER NEC 04/25/2011 Ot 338.29 OTH ER CHRONIC PAIN 04/25/2011 Ot 491.21 OBS TR CHRONIC BRONCHITIS, W (ACUTE) EXAC 04/25/2011 Ot 710.0 SYST LUPUS ERYTHEMATOSIS 04/25/2011 Ot 996.1 MALF UNC VASC DEVICE/JAMES 04/25/2011 Ot 996.74 OTH COMPL DUE TO OTH VASCULAR DEVICE,IMP 04/25/2011 Ot V12.51 HX- VENOUS THROMBOSIS EMBOLISM 04/25/2011 Ot V12.55 PER JS HISTORY OF PULMONARY EMBOLISM 04/26/2011 Ot 250.00 LETICIA B WALLY WO COMPL, TYPE II OR UNSPEC TY 04/26/2011 Ot 305.1 TOBA HOME HEALTH ADMINISTRATOR USE DISORDER 04/26/2011 Ot 491.21 OBS TR CHRONIC BRONCHITIS, W (ACUTE) EXAC 04/26/2011 Ot V12.51 HX- VENOUS THROMBOSIS EMBOLISM 04/26/2011 Ot V58.67 JOSE G-TERM (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 OF INSULIN 04/30/2011 786.07 Whe ezing 04/30/2011 786.07 Whe ezing 04/30/2011 HERMINIA SEGURA MD 786.0 7 Wheezing 04/30/2011 HERMINIA SEGURA MD 786.0 7 Wheezing 04/30/2011 786.07 Whe ezing 04/30/2011 786.07 Whe ezing 04/30/2011 786.07 Whe ezing 04/30/2011 786.07 Whe ezing 04/30/2011 ANDERSON SEGURA PSYD 786.07 Wheezing 04/30/2011 FADUMO HICKEY DO 786.07 Wheezing 04/30/2011 FADUMO HICKEY DO 786.07 Wheezing 04/30/2011 ANDERSON SEGURA PSYD 786.07 Wheezing 04/30/2011 HAZEL GARCIA MD N 786 .07 Wheezing 04/30/2011 HAZEL GARCIA MD N 786 .07 Wheezing 04/30/2011 RADHA POLLARD, HAZEL N 786 .07 Wheezing 04/30/2011 JUSTICE TRIPATHI APRN 786.07 Wheezing 04/30/2011 RADHA POLLARD, HAZEL N 786 .07 Wheezing 04/30/2011 RADHA POLLARD, HAZEL N 786 .07 Wheezing 04/30/2011 RADHA POLLARD, HAZEL N 786 .07 Wheezing 04/30/2011 RADHA POLLARD, HAZEL N 786 .07 Wheezing 04/30/2011 786.07 Whe ezing 04/30/2011 RADHA POLLARD, HAZEL N 786 .07 Wheezing 04/30/2011 RADHA POLLARD, HAZEL N 786 .07 Wheezing 04/30/2011 RADHA POLLARD, HAZEL N 786 .07 Wheezing 04/30/2011 RADHA POLLARD, HAZEL N 786 .07 Wheezing 04/30/2011 FADUMO HICKEY DO K 786.07 Wheezing 04/30/2011 HAZEL GARCIA MD N 786 .07 Wheezing 04/30/2011 HAZEL GARCIA MD N 786 .07 Wheezing 04/30/2011 786.07 Whe ezing 04/30/2011 RADHA POLLARD, HAZEL N 786 .07 Wheezing 04/30/2011 FADUMO HICKEY DO 786.07 Wheezing 05/03/2011 Ot 305.1 TOBA HOME HEALTH ADMINISTRATOR USE DISORDER 05/03/2011 Ot 496 CHR AI RWAY OBSTRUCT NEC 05/03/2011 Ot 786.05 CALLIE RTNESS OF BREATH 05/03/2011 Ot V58.69 OTH MED,LT,CURRENT USE 05/03/2011 Ot 250.02 LETICIA B WALLY WO COMPL, TYPE II OR UNSPEC TY 05/03/2011 Ot 272.4 HYPE RLIPIDEMIA NEC/NOS 05/03/2011 Ot 311 DEPRES SIVE DISORDER NEC 05/03/2011 Ot 401.9 HYPE RTENSION NOS 05/03/2011 Ot 491.21 OBS TR CHRONIC BRONCHITIS, W (ACUTE) EXAC 05/03/2011 Ot 710.0 SYST LUPUS ERYTHEMATOSIS 05/03/2011 Ot V12.51 HX- VENOUS THROMBOSIS EMBOLISM 05/05/2011 Ot 459.81 LUCAS OUS INSUFFICIENCY NOS 05/05/2011 Ot V74.8 SCRE EN-BACTERIAL DIS NEC 05/08/2011 Ot 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 05/08/2011 Ot 451.9 THRO MBOPHLEBITIS NOS 05/08/2011 Ot 453.77 CHR ON VENOUS EMBOLISM THROMBOSIS OF OT 05/12/2011 250.02 Leticia betes Ii Uncontrolled (uncomplicated) 05/12/2011 300.00 ANX IETY UNSPEC 05/12/2011 786.05 Callie rtness Of Breath 05/12/2011 250.02 Leticia betes Ii Uncontrolled (uncomplicated) 05/12/2011 300.00 ANX IETY UNSPEC 05/12/2011 786.05 Callie rtness Of Breath 05/12/2011 HERMINIA SEGURA MD 250.0 2 Diabetes Ii Uncontrolled (uncomplicated) 05/12/2011 HERMINIA SEGURA MD 300.0 0 ANXIETY UNSPEC 05/12/2011 HERMINIA SEGURA MD 786.0 5 Shortness Of Breath 05/12/2011 HERMINIA SEGURA MD 250.0 2 Diabetes Ii Uncontrolled (uncomplicated) 05/12/2011 HERMINIA SEGURA MD 300.0 0 ANXIETY UNSPEC 05/12/2011 HERMINIA SEGURA MD 786.0 5 Shortness Of Breath 05/12/2011 250.02 Leticia betes Ii Uncontrolled (uncomplicated) 05/12/2011 300.00 ANX IETY UNSPEC 05/12/2011 786.05 Callie rtness Of Breath 05/12/2011 250.02 Leticia betes Ii Uncontrolled (uncomplicated) 05/12/2011 300.00 ANX IETY UNSPEC 05/12/2011 786.05 Callie rtness Of Breath 05/12/2011 250.02 Leticia betes Ii Uncontrolled (uncomplicated) 05/12/2011 300.00 ANX IETY UNSPEC 05/12/2011 786.05 Callie rtness Of Breath 05/12/2011 250.02 Leticia betes Ii Uncontrolled (uncomplicated) 05/12/2011 300.00 ANX IETY UNSPEC 05/12/2011 786.05 Callie rtness Of Breath 05/12/2011 ANDERSON SEGURA PSYD L 250.02 Diabetes Ii Uncontrolled (uncomplicated) 05/12/2011 ANDERSON SEGURA PSYD L 300.00 ANXIETY UNSPEC 05/12/2011 ANDERSON SEGURA PSYD L 786.05 Shortness Of Breath 05/12/2011 RUPERTO DO FADUMO K 250.02 Diabetes Ii Uncontrolled (uncomplicated) 05/12/2011 HICKEY DO, FADUMO K 300.00 ANXIETY UNSPEC 05/12/2011 HICKEY DO, FADUMO K 786.05 Shortness Of Breath 05/12/2011 HICKEY DO, FADUMO K 250.02 Diabetes Ii Uncontrolled (uncomplicated) 05/12/2011 HICKEY DO, FADUMO K 300.00 ANXIETY UNSPEC 05/12/2011 HICKEY DO, FADUMO K 786.05 Shortness Of Breath 05/12/2011 ANDERSON SEGURA PSYD L 250.02 Diabetes Ii Uncontrolled (uncomplicated) 05/12/2011 ANDERSON SEGURA PSYD L 300.00 ANXIETY UNSPEC 05/12/2011 ANDERSON SEGURA PSYD 786.05 Shortness Of Breath 05/12/2011 HAZEL GARCIA MD N 250 .02 Diabetes Ii Uncontrolled (uncomplicated) 05/12/2011 HAZEL GARCIA MD N 300 .00 ANXIETY UNSPEC 05/12/2011 HAZEL GARCIA MD N 786 .05 Shortness Of Breath 05/12/2011 HAZEL GARCIA MD N 250 .02 Diabetes Ii Uncontrolled (uncomplicated) 05/12/2011 HAZEL GARCIA MD N 300 .00 ANXIETY UNSPEC 05/12/2011 HAZEL GARCIA MD N 786 .05 Shortness Of Breath 05/12/2011 HAZEL GARCIA MD N 250 .02 Diabetes Ii Uncontrolled (uncomplicated) 05/12/2011 HAZEL GARCIA MD N 300 .00 ANXIETY UNSPEC 05/12/2011 HAZEL GARCIA MD 786 .05 Shortness Of Breath 05/12/2011 JUSTICE TRIPATHI APRN A 250.02 Diabetes Ii Uncontrolled (uncomplicated) 05/12/2011 JUSTICE TRIPATHI APRN A 300.00 ANXIETY UNSPEC 05/12/2011 JUSTICE TRIPATHI APRN 786.05 Shortness Of Breath 05/12/2011 HAZEL GARCIA MD N 250 .02 Diabetes Ii Uncontrolled (uncomplicated) 05/12/2011 HAZEL GARCIA MD N 300 .00 ANXIETY UNSPEC 05/12/2011 HAZEL GARCIA MD N 786 .05 Shortness Of Breath 05/12/2011 HAZEL GARCIA MD N 250 .02 Diabetes Ii Uncontrolled (uncomplicated) 05/12/2011 HAZEL GARCIA MD N 300 .00 ANXIETY UNSPEC 05/12/2011 HAZEL GARCIA MD N 786 .05 Shortness Of Breath 05/12/2011 HAZEL GARCIA MD N 250 .02 Diabetes Ii Uncontrolled (uncomplicated) 05/12/2011 HAZEL GARCIA MD N 300 .00 ANXIETY UNSPEC 05/12/2011 HAZEL GARCIA MD N 786 .05 Shortness Of Breath 05/12/2011 HAZEL GARCIA MD N 250 .02 Diabetes Ii Uncontrolled (uncomplicated) 05/12/2011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 05/01/2013 HAZEL GARCIA MD N 780 .4 DIZZINESS AND GIDDINESS 05/01/2013 HAZEL GARCIA MD N 338 .4 CHRONIC PAIN SYNDROME 05/01/2013 HAZEL GARCIA MD N 780 .4 DIZZINESS AND GIDDINESS 05/01/2013 HAZEL GARCIA MD 338 .4 CHRONIC PAIN SYNDROME 05/01/2013 HAZEL GARCIA MD N 780 .4 DIZZINESS AND GIDDINESS 05/01/2013 HAZEL GARCIA MD N 338 .4 CHRONIC PAIN SYNDROME 05/01/2013 HAZEL GARCIA MD N 780 .4 DIZZINESS AND GIDDINESS 05/01/2013 FAHEEM HICKEY DOA K 338.4 CHRONIC PAIN SYNDROME 05/01/2013 FAHEEM HICKEY DOA K 780.4 DIZZINESS AND GIDDINESS 05/01/2013 HAZEL GARCIA MD N 338 .4 CHRONIC PAIN SYNDROME 05/01/2013 HAZEL GARCIA MD 780 .4 DIZZINESS AND GIDDINESS 05/01/2013 HAZEL GARCIA MD N 338 .4 CHRONIC PAIN SYNDROME 05/01/2013 HAZEL GARCIA MD 780 .4 DIZZINESS AND GIDDINESS 05/01/2013 HAZEL GARCIA MD N 338 .4 CHRONIC PAIN SYNDROME 05/01/2013 HAZEL GARCIA MD 780 .4 DIZZINESS AND GIDDINESS 05/01/2013 FADUMO HICKEY DO K 338.4 CHRONIC PAIN SYNDROME 05/01/2013 FAHEEM HICKEY DOA K 780.4 DIZZINESS AND GIDDINESS 05/10/2013 JUSTICE TRIPATHI APRN 611.71 MASTODYNIA 05/10/2013 HAZEL GARCIA MD N 611 .71 MASTODYNIA 05/10/2013 HAZEL GARCIA MD 611 .71 MASTODYNIA 05/10/2013 HAZEL GARCIA MD N 611 .71 MASTODYNIA 05/10/2013 HAZEL GARCIA MD N 611 .71 MASTODYNIA 05/10/2013 611.71 MAS TODYNIA 05/10/2013 HAZEL GARCIA MD N 611 .71 MASTODYNIA 05/10/2013 HAZEL GARCIA MD N 611 .71 MASTODYNIA 05/10/2013 HAZEL GARCIA MD N 611 .71 MASTODYNIA 05/10/2013 HAZEL GARCIA MD N 611 .71 MASTODYNIA 05/10/2013 FAHEEM HICKEY DOA K 611.71 MASTODYNIA 05/10/2013 HAZEL GARCIA MD N 611 .71 MASTODYNIA 05/10/2013 RADHA MD, HAZEL N 611 .71 MASTODYNIA 05/10/2013 HAZEL GARCIA MD N 611 .71 MASTODYNIA 05/10/2013 FADUMO HICKEY DO K 611.71 MASTODYNIA 06/05/2013 HAZEL GARCIA MD N 272 .4 HYPERLIPIDEMIA 06/05/2013 HAZEL GARCIA MD N 459 .81 VENOUS (PERIPHERAL) INSUFFICIENCY UNSPECIFIED 06/05/2013 HAZEL GARCIA MD N 709 .9 UNSPECIFIED DISORDER OF SKIN AND SUBCUTANEOUS TISSUE 06/05/2013 HAZEL GARCIA MD N 791 .0 PROTEINURIA 06/05/2013 HAZEL GARCIA MD N 272 .4 HYPERLIPIDEMIA 06/05/2013 HAZEL GARCIA MD N 459 .81 VENOUS (PERIPHERAL) INSUFFICIENCY UNSPECIFIED 06/05/2013 HAZEL GARCIA MD N 709 .9 UNSPECIFIED DISORDER OF SKIN AND SUBCUTANEOUS TISSUE 06/05/2013 HAZEL GARCIA MD N 791 .0 PROTEINURIA 06/05/2013 HAZEL GARCIA MD N 272 .4 HYPERLIPIDEMIA 06/05/2013 HAZEL GARCIA MD N 459 .81 VENOUS (PERIPHERAL) INSUFFICIENCY UNSPECIFIED 06/05/2013 HAZEL GARCIA MD N 709 .9 UNSPECIFIED DISORDER OF SKIN AND SUBCUTANEOUS TISSUE 06/05/2013 HAZEL GARCIA MD N 791 .0 PROTEINURIA 06/05/2013 272.4 HYPE RLIPIDEMIA 06/05/2013 459.81 LUCAS OUS (PERIPHERAL) INSUFFICIENCY UNSPECIFIED 06/05/2013 709.9 UNSP ECIFIED DISORDER OF SKIN AND SUBCUTANEOUS TISSUE 06/05/2013 791.0 PROT EINURIA 06/05/2013 HAZEL GARCIA MD N 272 .4 HYPERLIPIDEMIA 06/05/2013 HAZEL GARCIA MD N 459 .81 VENOUS (PERIPHERAL) INSUFFICIENCY UNSPECIFIED 06/05/2013 HAZEL GARCIA MD N 709 .9 UNSPECIFIED DISORDER OF SKIN AND SUBCUTANEOUS TISSUE 06/05/2013 HAZEL GARCIA MD N 791 .0 PROTEINURIA 06/05/2013 HAZEL GARCIA MD N 272 .4 HYPERLIPIDEMIA 06/05/2013 HAZEL GARCIA MD N 459 .81 VENOUS (PERIPHERAL) INSUFFICIENCY UNSPECIFIED 06/05/2013 HAZEL GARCIA MD N 709 .9 UNSPECIFIED DISORDER OF SKIN AND SUBCUTANEOUS TISSUE 06/05/2013 HAZEL GARCIA MD N 791 .0 PROTEINURIA 06/05/2013 HAZEL GARCIA MD N 272 .4 HYPERLIPIDEMIA 06/05/2013 HAZEL GARCIA MD N 459 .81 VENOUS (PERIPHERAL) INSUFFICIENCY UNSPECIFIED 06/05/2013 HAZEL GARCIA MD N 709 .9 UNSPECIFIED DISORDER OF SKIN AND SUBCUTANEOUS TISSUE 06/05/2013 HAZEL GARCIA MD N 791 .0 PROTEINURIA 06/05/2013 HAZEL GARCIA MD N 272 .4 HYPERLIPIDEMIA 06/05/2013 HAZEL GARCIA MD N 459 .81 VENOUS (PERIPHERAL) INSUFFICIENCY UNSPECIFIED 06/05/2013 HAZEL GARCIA MD N 709 .9 UNSPECIFIED DISORDER OF SKIN AND SUBCUTANEOUS TISSUE 06/05/2013 HZAEL GARCIA MD N 791 .0 PROTEINURIA 06/05/2013 FADUMO HICKEY DO K 272.4 HYPERLIPIDEMIA 06/05/2013 FADUMO HICKEY DO K 459.81 VENOUS (PERIPHERAL) INSUFFICIENCY UNSPECIFIED 06/05/2013 FADUMO HICKEY DO K 709.9 UNSPECIFIED DISORDER OF SKIN AND SUBCUTANEOUS TISSUE 06/05/2013 FADUMO HICKEY DO K 791.0 PROTEINURIA 06/05/2013 HAZEL GARCIA MD N 272 .4 HYPERLIPIDEMIA 06/05/2013 HAZEL GARCIA MD N 459 .81 VENOUS (PERIPHERAL) INSUFFICIENCY UNSPECIFIED 06/05/2013 HAZEL GARCIA MD N 709 .9 UNSPECIFIED DISORDER OF SKIN AND SUBCUTANEOUS TISSUE 06/05/2013 HAZEL GARCIA MD N 791 .0 PROTEINURIA 06/05/2013 HAZEL GARCIA MD N 272 .4 HYPERLIPIDEMIA 06/05/2013 HAZEL GARCIA MD N 459 .81 VENOUS (PERIPHERAL) INSUFFICIENCY UNSPECIFIED 06/05/2013 HAZEL GARCIA MD N 709 .9 UNSPECIFIED DISORDER OF SKIN AND SUBCUTANEOUS TISSUE 06/05/2013 HAZEL GARCIA MD N 791 .0 PROTEINURIA 06/05/2013 HAZEL GARCIA MD N 272 .4 HYPERLIPIDEMIA 06/05/2013 HAZEL GARCIA MD N 459 .81 VENOUS (PERIPHERAL) INSUFFICIENCY UNSPECIFIED 06/05/2013 HAZEL GARCIA MD N 709 .9 UNSPECIFIED DISORDER OF SKIN AND SUBCUTANEOUS TISSUE 06/05/2013 HAZEL GARCIA MD 791 .0 PROTEINURIA 06/05/2013 FADUMO HICKEY DO 272.4 HYPERLIPIDEMIA [...] ERYTHEMATOSIS 08/05/2013 MONICO VALLE MD Ot V12.3 HX- BLOOD DISEASES 08/05/2013 MONICO VALLE MD Ot V12.51 HX- VENOUS THROMBOSIS EMBOLISM 08/05/2013 MONICO VALLE MD Ot V12.55 PERSONAL HISTORY OF PULMONARY EMBOLISM 08/05/2013 MONICO VALLE MD Ot V58.61 ANTICOAGULANTS,LT,CURRENT USE 08/05/2013 MONICO VALLE MD, Ot V58.69 OTH MED,LT,CURRENT USE 10/09/2013 HAZEL GARCIA MD N 354 .0 CARPAL TUNNEL SYNDROME 10/09/2013 HAZEL GARCIA MD 354 .0 CARPAL TUNNEL SYNDROME 10/09/2013 HAZEL GARCIA MD 354 .0 CARPAL TUNNEL SYNDROME 10/09/2013 HAZEL GARCIA MD 354 .0 CARPAL TUNNEL SYNDROME 10/09/2013 FADUMO HICKEY DO 354.0 CARPAL TUNNEL SYNDROME 10/09/2013 HAZEL GARCIA MD 354 .0 CARPAL TUNNEL SYNDROME 10/09/2013 HAZEL GARCIA MD 354 .0 CARPAL TUNNEL SYNDROME 10/09/2013 HAZEL GARCIA MD 354 .0 CARPAL TUNNEL SYNDROME 10/09/2013 FADUMO HICKEY DO 354.0 CARPAL TUNNEL SYNDROME 10/21/2013 PATRICE PAREDES PSYCHOLOGIST EXPERIMENTAL Ot 244 .9 HYPOTHYROIDISM NOS 10/21/2013 PATRICE PAREDES PSYCHOLOGIST EXPERIMENTAL Ot 250.00 DIAB WALLY WO COMPL, TYPE II OR UNSPEC TY 10/21/2013 PATRICE PAREDES PSYCHOLOGIST EXPERIMENTAL Ot 311 DEPRESSIVE DISORDER NEC 10/21/2013 PATRICE PAREDES PSYCHOLOGIST EXPERIMENTAL Ot 369.60 BLINDNESS, ONE EYE 10/21/2013 PATRICE PAREDES PSYCHOLOGIST EXPERIMENTAL Ot 496 CHR AIRWAY OBSTRUCT NEC 10/21/2013 PATRICE PAREDES PSYCHOLOGIST EXPERIMENTAL Ot 710 .0 SYST LUPUS ERYTHEMATOSIS 10/21/2013 PATRICE PAREDES PSYCHOLOGIST EXPERIMENTAL Ot 716.90 ARTHROPATHY NOS-UNSPEC 10/21/2013 PATRICE PAREDES PSYCHOLOGIST EXPERIMENTAL Ot 729 .5 PAIN IN LIMB 10/21/2013 PATRICE PAREDES PSYCHOLOGIST EXPERIMENTAL Ot 729.81 SWELLING OF LIMB 10/21/2013 PATRICE PAREDES PSYCHOLOGIST EXPERIMENTAL Ot V58.67 LONG-TERM (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 OF INSULIN 10/21/2013 PATRICE PAREDES PSYCHOLOGIST EXPERIMENTAL Ot V58.69 OT MED,LT,CURRENT USE 12/11/2013 HAZEL GARCIA MD N 078 .10 VIRAL WARTS UNSPECIFIED 12/11/2013 HAZEL GARCIA MD N 782 .2 LOCALIZED SUPERFICIAL SWELLING MASS OR LUMP 12/11/2013 HAZEL GARCIA MD N 078 .10 VIRAL WARTS UNSPECIFIED 12/11/2013 HAZEL GARCIA MD 782 .2 LOCALIZED SUPERFICIAL SWELLING MASS OR LUMP 12/11/2013 FADUMO HICKEY DO 078.10 VIRAL WARTS UNSPECIFIED 12/11/2013 FADUMO HICKEY DO 782.2 LOCALIZED SUPERFICIAL SWELLING MASS OR LUMP 12/11/2013 HAZEL GARCIA MD N 078 .10 VIRAL WARTS UNSPECIFIED 12/11/2013 HAZEL GARCIA MD 782 .2 LOCALIZED SUPERFICIAL SWELLING MASS OR LUMP 12/11/2013 HAZEL GARCIA MD 078 .10 VIRAL WARTS UNSPECIFIED 12/11/2013 HAZEL GARCIA MD 782 .2 LOCALIZED SUPERFICIAL SWELLING MASS OR LUMP 12/11/2013 HAZEL GARCIA MD 078 .10 VIRAL WARTS UNSPECIFIED 12/11/2013 HAZEL GARCIA MD 782 .2 LOCALIZED SUPERFICIAL SWELLING MASS OR LUMP 12/11/2013 [...] LUPUS ERYTHEMATOSIS 01/15/2014 JOSE GARZA Ot V12.3 HX- BLOOD DISEASES 01/15/2014 JOSE GARZA Ot V12.51 HX- VENOUS THROMBOSIS EMBOLISM 01/15/2014 JOSE GARZA Ot V12.55 [...] DEGREE OF FOREARM 03/15/2014 HAZEL GARCIA MD 454 .1 VARICOSE VEINS OF LOWER EXTREMITIES WITH INFLAMMATION 03/15/2014 HAZEL GARCIA MD 454 .9 ASYMPTOMATIC VARICOSE VEINS 03/15/2014 HAZEL GARCIA MD N 724 .3 SCIATICA 03/15/2014 HAZEL GARCIA MD N 943 .01 BURN OF UNSPECIFIED DEGREE OF FOREARM 03/15/2014 HAZEL GARCIA MD N 454 .1 VARICOSE VEINS OF LOWER EXTREMITIES WITH INFLAMMATION 03/15/2014 HAZEL GARCIA MD N 454 .9 ASYMPTOMATIC VARICOSE VEINS 03/15/2014 HAZEL GARCIA MD N 724 .3 SCIATICA 03/15/2014 HAZEL GARCIA MD N 943 .01 BURN OF UNSPECIFIED DEGREE OF FOREARM 03/15/2014 HAZEL GARCIA MD N 454 .1 VARICOSE VEINS OF LOWER EXTREMITIES WITH INFLAMMATION 03/15/2014 HAZEL GARCIA MD N 454 .9 ASYMPTOMATIC VARICOSE VEINS 03/15/2014 HAZEL GARCIA MD N 724 .3 SCIATICA 03/15/2014 HAZEL GARCIA MD N 943 .01 BURN OF UNSPECIFIED DEGREE OF FOREARM 03/15/2014 RUPERTO BOWIE FADUMO K 454.1 VARICOSE VEINS OF LOWER EXTREMITIES WITH INFLAMMATION 03/15/2014 RUPERTO BOWIE FADUMO K 454.9 ASYMPTOMATIC VARICOSE VEINS 03/15/2014 RUPERTO BOWIE FADUMO K 724.3 SCIATICA 03/15/2014 RUPERTO BOWIE FADUMO K 943.01 BURN OF UNSPECIFIED DEGREE OF FOREARM 03/22/2014 RICARDO CHACKO CAR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 Ot 280.9 03/22/2014 RICARDO CHACKO CAR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 Ot 585.3 03/22/2014 RICARDO CHACKO CAR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 Ot 795.79 03/22/2014 RICARDO CHACKO CAR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 Ot V12.51 03/22/2014 RICARDO CHACKO CAR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 Ot V12.55 03/22/2014 RICARDO CHACKO CAR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 Ot V58.69 05/01/2014 JOSE GARZA N Ot 244.9 05/01/2014 KAYLAJOSE ACOSTA N Ot 250.00 05/01/2014 KAYLAJOSE ACOSTA N Ot 305.1 05/01/2014 KAYLAJOSE ACOSTA N [...] JOSE GARZA Ot 244.9 05/02/2014 KAYLAJOSE ACOSTA N Ot 250.00 05/02/2014 KAYLAJOSE ACOSTA N Ot 305.1 05/02/2014 KAYLAJOSE ACOSTA N Ot 311 05/02/2014 KAYLAJOSE ACOSTA N Ot 327.23 05/02/2014 KAYLAJOSE ACOSTA N Ot 401.9 05/02/2014 KAYLAJOSE ACOSTA N Ot 496 05/02/2014 KAYLAJOSE ACOSTA N Ot 710.0 05/02/2014 KAYLAJOSE ACOSTA N Ot V12.3 05/02/2014 KAYLAJOSE ACOSTA N Ot V12.51 05/02/2014 KAYLAJOSE ACOSTA Ot V12.55 05/02/2014 JOSE GARZA Ot V58.61 [...] LEONARD POLLARD, MONICO Jones Ot V58.69 05/16/2014 MIKAL BRUNNER DO M Ot 285. 9 05/16/2014 MYESHA BOWIE, MIKAL M Ot 305. 1 05/16/2014 QUINCY BRUNNER DOSON M Ot 327. 23 05/16/2014 QUINCY BRUNNER DOSON M Ot 493. 20 05/16/2014 QUINCY BRUNNER DOSON M Ot 710. 0 05/16/2014 QUINCY BRUNNER DOSON M Ot 716. 90 05/16/2014 QUINCY BRUNNER DOSON M Ot 786. 05 05/16/2014 RADHA POLLARD, HAZEL Fleming Ot 728.85 05/16/2014 CANDE GRIFFIN MD Ot 724. 2 05/16/2014 KAYLA, BOBAN N Ot 244.9 05/16/2014 [...] N Ot V58.69 05/16/2014 GINNA RICARDO Alexandra CAR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 Ot 280.9 05/16/2014 GINNA RICARDO S CAR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 Ot 585.3 05/16/2014 GINNA RICARDO Alexandra CAR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 Ot 795.79 05/16/2014 GINNA RICARDO S CAR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 Ot V12.51 05/16/2014 CHACKO, RICARDO S CAR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 Ot V12.55 05/16/2014 CHACKO, RICARDO Alexandra CAR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 Ot V58.69 05/16/2014 JEWELS ROMANO Ot 729.5 [...] K Ot 250.00 05/21/2014 LEONARD POLLARD, MONICO K Ot 305.1 05/21/2014 LEONARD POLLARD, MONICO K Ot 311 05/21/2014 LEONARD POLLARD, MONICO Jones Ot 327.23 05/21/2014 LEONARD POLLARD, MONICO Jones Ot 401.9 05/21/2014 LEONARD POLLARD, MONICO Jones Ot 416.2 05/21/2014 LEONARD POLLARD, MONICO Jones Ot 453.50 05/21/2014 LEONARD POLLARD, MONICO Jones Ot 496 05/21/2014 LEONARD POLLARD, MONICO Jones Ot 710.0 05/21/2014 LEONARD POLLARD, MONICO Jones Ot V58.61 05/21/2014 LEONARD POLLARD, MONICO Jones Ot V58.69 05/21/2014 MIKAL BRUNNER DO M Ot 285. 9 05/21/2014 MIKAL BRUNNER DO M Ot 305. 1 05/21/2014 QUINCY BRUNNER DOSON M Ot 327. 23 05/21/2014 MIKAL BRUNNER DO M Ot 493. 20 05/21/2014 MIKAL BRUNNER DO M Ot 710. 0 05/21/2014 MIKAL BRUNNER DO M Ot 716. 90 05/21/2014 QUINCY BRUNNER DOSON M Ot 786. 05 05/21/2014 RADHA POLLARD, HAZEL Fleming Ot 728.85 05/21/2014 CANDE GRIFFIN MD Ot 724. 2 05/21/2014 KAYLA, BOBAN N Ot 244.9 05/21/2014 [...] N Ot V58.69 05/21/2014 CHACKO HILAH S CAR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 Ot 280.9 05/21/2014 CHACKO, HILAH S CAR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 Ot 585.3 05/21/2014 CHACKO HILAH S CAR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 Ot 795.79 05/21/2014 CHACKO, HILAH S CAR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 Ot V12.51 05/21/2014 CHACKO, HILAH S CAR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 Ot V12.55 05/21/2014 CHACKO, HILAH S CAR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 Ot V58.69 07/11/2014 KAYLA, BOBAN N Ot [...] 07/11/2014 KAYLA BOBAN N Ot V12.55 07/11/2014 KAYLA, BOBAN N Ot V58.61 07/11/2014 KAYLA, BOBAN N Ot V58.69 07/30/2014 KAYLA, BOBAN N Ot 244.9 HYPOTHYROIDISM NOS 07/30/2014 KAYLA, BOBAN N Ot 250.00 DIAB WALLY WO COMPL, TYPE II OR UNSPEC TY 07/30/2014 KAYLA, BOBAN N Ot 305.1 TOBACCO USE DISORDER 07/30/2014 KAYLA BOBAN N Ot 311 DEPRESSIVE DISORDER NEC 07/30/2014 KAYLA, BOBAN N Ot 327.23 OBSTRUCTIVE SLEEP APNEA (ADULT) (PEDIATR 07/30/2014 KAYLAGREYSON ACOSTAAN N Ot 401.9 HYPERTENSION NOS 07/30/2014 KAYLA BOBAN N Ot 496 CHR AIRWAY OBSTRUCT NEC 07/30/2014 KAYLAJOSE N Ot 710.0 SYST LUPUS ERYTHEMATOSIS 07/30/2014 KAYLAJOSE N Ot V12.3 HX- BLOOD DISEASES 07/30/2014 KAYLA, BOBAN N Ot V12.51 HX- VENOUS THROMBOSIS EMBOLISM 07/30/2014 KAYLA BOBAN N Ot V12.55 PERSONAL HISTORY OF PULMONARY EMBOLISM 07/30/2014 GREYSON GARZAAN N Ot V58.61 ANTICOAGULANTS,LT,CURRENT USE 07/30/2014 KAYLAJOSE N Ot V58.69 OTH MED,LT,CURRENT USE 07/31/2014 KAYLA BOBAN N Ot 244.9 07/31/2014 KAYLA, BOBAN N Ot 250.00 07/31/2014 KAYLA BOBAN N Ot 305.1 07/31/2014 KAYLA BOBAN N Ot 311 07/31/2014 KAYLA, BOBAN N Ot 327.23 07/31/2014 KAYLA, BOBAN N Ot 401.9 07/31/2014 KAYLA, BOBAN [...] V58.69 08/13/2014 COLTON POLLARD, HERMINIA Guzman Ot 244 .9 HYPOTHYROIDISM NOS 08/13/2014 COLTON POLLARD, HERMINIA Guzman Ot 250.00 DIAB WALLY WO COMPL, TYPE II OR UNSPEC TY 08/13/2014 COLTON POLLARD, HERMINIA Guzman Ot 272 .4 HYPERLIPIDEMIA NEC/NOS 08/13/2014 HERMINIA SEGURA MD Ot 275 .2 DIS MAGNESIUM METABOLISM 08/13/2014 HERMINIA SEGURA MD Ot 327.23 OBSTRUCTIVE SLEEP APNEA (ADULT) (PEDIATR 08/13/2014 HERMINIA SEGURA MD Ot 401 .9 HYPERTENSION NOS 08/13/2014 HERMINIA SEGURA MD Ot 491.21 OBSTR CHRONIC BRONCHITIS, W (ACUTE) EXAC 08/13/2014 HERMINIA SEGURA MD Ot 787.01 NAUSEA WITH VOMITING 08/13/2014 HERMINIA SEGURA MD Ot 789.00 ABDOMINAL PAIN, UNSPECIFIED SITE 08/13/2014 HERMINIA SEGURA MD Ot V58.69 OTH MED,LT,CURRENT USE 08/14/2014 RADHA POLLARD, HAZEL Fleming Ot 599 .0 08/21/2014 RADHA POLLARD, HAZEL N Ot 790 .5 09/06/2014 RADHA POLLARD, HAZEL N Ot 790 .5 09/25/2014 RADHA POLLARD, HAZEL N Ot 599 .0 09/27/2014 KAYLA, BOBAN N Ot 244.9 09/27/2014 [...] N Ot V58.69 09/27/2014 MONICA POLLARD, MAI S Ot 285.9 09/30/2014 KAYLA, BOBAN N Ot 244.9 09/30/2014 KAYLA, BOBAN N Ot 250.00 09/30/2014 KAYLA, BOBAN N Ot 305.1 09/30/2014 KAYLA, BOBAN N Ot 311 09/30/2014 KAYLA, BOBAN N Ot 327.23 09/30/2014 KAYLA, BOBAN N Ot 401.9 09/30/2014 KAYLA, BOBAN N Ot 496 09/30/2014 KAYLA, BOBAN N Ot 710.0 09/30/2014 KAYLA, BOBAN N Ot V12.3 09/30/2014 KAYLA BOBAN N Ot V12.51 09/30/2014 KAYLA, BOBAN N Ot V12.55 09/30/2014 KAYLA, BOBAN N Ot V58.61 09/30/2014 KAYLA, BOBAN N Ot V58.69 09/30/2014 MONICA POLLARD, MAI S Ot 285.9 10/30/2014 KAYLA, BOBDONELL N Ot 244.9 HYPOTHYROIDISM NOS 10/30/2014 KAYLA BOBAN N Ot 250.00 DIAB WALLY WO COMPL, TYPE II OR UNSPEC TY 10/30/2014 KAYLA, BOBAN N Ot 305.1 TOBACCO USE DISORDER 10/30/2014 KAYLA, BOBAN N Ot 311 DEPRESSIVE DISORDER NEC 10/30/2014 KAYLA, BOBAN N Ot 327.23 OBSTRUCTIVE SLEEP APNEA (ADULT) (PEDIATR 10/30/2014 KAYLA, BOBAN N Ot 401.9 HYPERTENSION NOS 10/30/2014 KAYLA BOBDONELL N Ot 496 CHR AIRWAY OBSTRUCT NEC 10/30/2014 KAYLA BOBAN N Ot 710.0 SYST LUPUS ERYTHEMATOSIS 10/30/2014 KAYLAJOSE ACOSTA N Ot V12.3 HX- BLOOD DISEASES 10/30/2014 KAYLA BOBAN N Ot V12.51 HX- VENOUS THROMBOSIS EMBOLISM 10/30/2014 KAYLA, BOBAN N Ot V12.55 PERSONAL HISTORY OF PULMONARY EMBOLISM 10/30/2014 KAYLAOJSE ACOSTA N Ot V58.61 ANTICOAGULANTS,LT,CURRENT USE 10/30/2014 [...] LEONARD POLLARD, MONICO Jones Ot 496 03/31/2015 LEOANRD POLLARD, MONICO Jones Ot 710.0 03/31/2015 LEONARD POLLARD, MONICO Jones Ot V58.61 03/31/2015 LEONARD POLLARD, MONICO Jones Ot V58.69 03/31/2015 MIKAL BRUNNER DO Ot 285. 9 03/31/2015 MIKAL BRUNNER DO Ot 305. 1 03/31/2015 MIKAL BRUNNER DO Ot 327. 23 03/31/2015 MIKAL BRUNNER DO Ot 493. 20 03/31/2015 MIKAL BRUNNER DO Ot 710. 0 03/31/2015 MIKAL BRUNNER DO Ot 716. 90 03/31/2015 MIKAL BRUNNER DO Ot 786. 05 03/31/2015 RADHA POLLARD, HAZEL N Ot 728.85 03/31/2015 GABY POLLARD, CANDE Gibbs Ot 724. 2 03/31/2015 RICARDO CHACKO S CAR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 Ot 280.9 03/31/2015 RICARDO CHACKO S CAR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 Ot 585.3 03/31/2015 CHACKORICARDO Alexandra S CAR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 Ot 795.79 03/31/2015 CHACKORICARDO Alexandra S CAR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 Ot V12.51 03/31/2015 CHACKORICARDO Alexandra S CAR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 Ot V12.55 03/31/2015 RICARDO CHACKO S CAR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 Ot V58.69 03/31/2015 RADHA POLLARD, HAZEL N Ot 790 .5 03/31/2015 RADHA POLLARD, HAZEL N Ot 599 .0 03/31/2015 MONICA POLLARD, MAI Alexandra Ot 285.9 03/31/2015 KAYLA, BOBDONELL N Ot 244.9 03/31/2015 KAYLA, BOBAN N [...] 03/31/2015 KAYLA, BOBAN N Ot V58.69 04/23/2015 DANIEL PORTER DO Ot M51.37 05/02/2015 DANIEL [...] PORTER DO Ot M51.37 06/27/2015 RICARDO CHACKO CAR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 Ot E03.9 06/27/2015 RICARDO CHACKO CAR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 Ot E11.9 06/27/2015 RICARDO CHACKO CAR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 Ot F17.200 06/27/2015 RICARDO CHACKO CAR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 Ot F32.9 06/27/2015 RICARDO CHACKO CAR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 Ot G47.33 06/27/2015 RICARDO CHACKO CAR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 Ot I 10 06/27/2015 RICARDO CHACKO CAR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 Ot J44.9 06/27/2015 RICARDO CHACKO CAR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 Ot M32.10 06/27/2015 RICARDO CHACKO CAR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 Ot Z79.01 06/27/2015 RICARDO CHACKO CAR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 Ot Z86.2 06/27/2015 RICARDO CHACKO CAR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 Ot Z86.711 06/27/2015 RICARDO CHACKO CAR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 Ot Z86.718 07/03/2015 Ot 244.9 07/03/2015 Ot [...] Jones Ot 305.1 07/03/2015 LEONARD POLLARD, MONICO oRbert Ot 311 07/03/2015 LEONARD POLLARD, MONICO Robert Ot 327.23 07/03/2015 LEONARD POLLARD, MONICO Robert Ot 401.9 07/03/2015 LEONARD POLLARD, MONICO Robert Ot 416.2 07/03/2015 LEONARD POLLARD, MONICO Robert Ot 453.50 07/03/2015 LEONARD POLLARD, MONICO Robert Ot 496 07/03/2015 LEONARD POLLARD, MONICO Jones Ot 710.0 07/03/2015 LEONARD POLLARD, MONICO Jones Ot V58.61 07/03/2015 LEONARD POLLARD, MONICO Jones Ot V58.69 07/03/2015 MIKAL BRUNNER DO Ot 285. 9 07/03/2015 MIKAL BRUNNER DO Ot 305. 1 07/03/2015 MIKAL BRUNNER DO Ot 327. 23 07/03/2015 MIKAL BRUNNER DO Ot 493. 20 07/03/2015 MIKAL BRUNNER DO Ot 710. 0 07/03/2015 MIKAL BRUNNER DO Ot 716. 90 07/03/2015 MIKAL BRUNNER DO Ot 786. 05 07/03/2015 RADHA POLLARD, HAZEL N Ot 728.85 07/03/2015 GABY POLLARD, CANDE Gibbs Ot 724. 2 07/03/2015 RICARDO CHACKO S CAR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 Ot 280.9 07/03/2015 RICARDO CHACKO S CAR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 Ot 585.3 07/03/2015 RICARDO CHACKO S CAR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 Ot 795.79 07/03/2015 RICARDO CHACKO S CAR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 Ot V12.51 07/03/2015 CHACKORICARDO Alexandra S CAR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 Ot V12.55 07/03/2015 RICARDO CHACKO S CAR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 Ot V58.69 07/03/2015 RADHA POLLARD, HAZEL N Ot 790 .5 07/03/2015 RADHA POLLARD, HAZEL N Ot 599 .0 07/03/2015 MONICA POLLARD, MAI S Ot 285.9 [...] 07/03/2015 KAYLA, BOBAN N Ot Z86.711 07/03/2015 KAYLAJOES ACOSTA N Ot Z86.718 07/03/2015 DANIEL PORTER DO Ot M51.37 07/03/2015 GINNARICARDO S CAR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 Ot E03.9 07/03/2015 CHACKORICARDO Alexandra S CAR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 Ot E11.9 07/03/2015 GINNA RICARDO S CAR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 Ot F17.200 07/03/2015 GINNA RICARDO S CAR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 Ot F32.9 07/03/2015 GINNA RICARDO S CAR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 Ot G47.33 07/03/2015 GINNA RICARDO S CAR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 Ot I 10 07/03/2015 GINNA RICARDO S CAR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 Ot J44.9 07/03/2015 GINNA RICARDO S CAR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 Ot M32.10 07/03/2015 GINNA RICARDO S CAR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 Ot Z79.01 07/03/2015 GINNA RICARDO S CAR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 Ot Z86.2 07/03/2015 GINNA RICARDO S CAR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 Ot Z86.711 07/03/2015 GINNA RICARDO S CAR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 Ot Z86.718 07/03/2015 MILEY SANCHEZ CAR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 Ot M46.04 07/04/2015 MILEY SANCHEZ CAR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 Ot M46.04 07/04/2015 GINNA RICARDO S CAR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 Ot E03.9 07/04/2015 GINNA RICARDO S CAR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 Ot E11.9 07/04/2015 GINNA RICARDO S CAR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 Ot F17.200 07/04/2015 GINNA RICARDO S CAR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 Ot F32.9 07/04/2015 GINNA RICARDO S CAR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 Ot G47.33 07/04/2015 GINNA RICARDO S CAR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 Ot I 10 07/04/2015 GINNA RICARDO S CAR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 Ot J44.9 07/04/2015 GNINA RICARDO S CAR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 Ot M32.10 07/04/2015 GINNA RICARDO S CAR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 Ot Z79.01 07/04/2015 GINNA RICARDO S CAR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 Ot Z86.2 07/04/2015 GINNA RICARDO S CAR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 Ot Z86.711 07/04/2015 GINNA RICARDO S CAR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 Ot Z86.718 07/14/2015 JOSE GARZA Ot E03.9 07/14/2015 JOSE GARZA Ot E11.9 07/14/2015 JOSE GARZA Ot F17.200 07/14/2015 JOSE GARZA Ot F32.9 07/14/2015 JOSE GARZA Ot G47.33 07/14/2015 JOSE GARZA Ot I10 07/14/2015 JOSE GARZA Ot J44.9 07/14/2015 JOSE GARZA Ot M32.10 07/14/2015 JOSE GARZA Ot Z79.01 07/14/2015 JOSE GARZA Ot Z86.2 [...] LEONARD POLLARD, MONICO Jones Ot 311 07/15/2015 LEONARD POLLARD, MONICO Jones Ot 327.23 07/15/2015 LEONARD POLLARD, MONICO Jones Ot 401.9 07/15/2015 LEONARD POLLARD, MONICO Jones Ot 416.2 07/15/2015 LEONARD POLLARD, MONICO Jones Ot 453.50 07/15/2015 LEONARD POLLARD, MONICO Jones Ot 496 07/15/2015 LEONARD POLLARD, MONICO Jones Ot 710.0 07/15/2015 LEONARD POLLARD, MONICO Jones Ot V58.61 07/15/2015 LEONARD POLLARD, MONICO Jones Ot V58.69 07/15/2015 MYESHA BOWIE MIKAL M Ot 285. 9 07/15/2015 MIKAL BRUNNER DO M Ot 305. 1 07/15/2015 MYESHA BOWIE MIKAL M Ot 327. 23 07/15/2015 MYESHA BOWIE MIKAL M Ot 493. 20 07/15/2015 MYESHA BOWIE MIKAL M Ot 710. 0 07/15/2015 QUINCY BRUNNER DOSON M Ot 716. 90 07/15/2015 MIKAL BRUNNER DO M Ot 786. 05 07/15/2015 RADHA POLLARD, HAZEL Fleming Ot 728.85 07/15/2015 GABY POLLARD, CANDE Gibbs Ot 724. 2 07/15/2015 RICARDO CHACKO 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 Ot 280.9 07/15/2015 RICARDO HCACKO CAR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 Ot 585.3 07/15/2015 RICARDO CHACKO 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 Ot 795.79 07/15/2015 RICARDO CHACKO CAR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 Ot V12.51 07/15/2015 RICARDO CHACKO 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 Ot V12.55 07/15/2015 RICARDO CHACKO 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 Ot V58.69 07/15/2015 RADHA POLLARD, HAZEL N Ot 790 .5 07/15/2015 RADHA POLLARD, HAZEL N Ot 599 .0 07/15/2015 MONICA POLLARD, MAI S Ot 285.9 07/15/2015 KAYLAJOSE N Ot E03.9 07/15/2015 KAYLA, JOSE N Ot E11.9 07/15/2015 KAYLA, BOBAN N [...] 07/15/2015 DANIEL PORTER DO Ot M51.37 07/15/2015 TAMAR CHACKOTERE S CAR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 Ot E03.9 07/15/2015 RICARDO CHACKO S CAR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 Ot E11.9 07/15/2015 TAMAR CHACKOTERE S CAR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 Ot F17.200 07/15/2015 TAMAR CHACKOTERE S CAR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 Ot F32.9 07/15/2015 RICARDO CHACKO S CAR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 Ot G47.33 07/15/2015 RICARDO CHACKO S CAR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 Ot I 10 07/15/2015 TAMAR CHACKOTERE S CAR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 Ot J44.9 07/15/2015 CHACKO, HILTERE S CAR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 Ot M32.10 07/15/2015 RICARDO CHACKO S CAR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 Ot Z79.01 07/15/2015 RICARDO CHACKO S CAR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 Ot Z86.2 07/15/2015 RICARDO CHACKO S CAR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 Ot Z86.711 07/15/2015 RICARDO CHACKO S CAR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 Ot Z86.718 07/15/2015 MILEY SANCHEZ CAR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 Ot M46.04 07/15/2015 COLIN POLLARD, RODNEY Rai [...] INFECTION, SITE NOT SPECIF 07/15/2015 RICARDO CHACKO 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 Ot E03.9 07/15/2015 RICARDO CHACKO 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 Ot E11.9 07/15/2015 RICARDO CHACKO 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 Ot F17.200 07/15/2015 RICARDO CHACKO 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 Ot F32.9 07/15/2015 RICARDO CHACKO 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 Ot G47.33 07/15/2015 RIACRDO CHACKO CAR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 Ot I 10 07/15/2015 RICARDO CHACKO CAR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 Ot J44.9 07/15/2015 RICARDO CHACKO 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 Ot M32.10 07/15/2015 RICARDO CHACKO 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 Ot Z79.01 07/15/2015 RICARDO CHACKO 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 Ot Z86.2 07/15/2015 RICARDO CHACKO 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 Ot Z86.711 07/15/2015 RICARDO CHACKO 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 Ot Z86.718 08/01/2015 MILEY SANCHEZ CAR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 Ot M46.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, THORACIC REGION 08/08/2015 MILEY SANCHEZ CAR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 Ot M46.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, THORACIC REGION 08/25/2015 JOSE GARZA Ot E03.9 HYPOTHYROIDISM, UNSPECIFIED 08/25/2015 JOSE GARZA Ot E11.9 TYPE 2 DIABETES MELLITUS WITHOUT COMPLIC 08/25/2015 JOSE GARZA Ot F17.200 NICOTINE DEPENDENCE, UNSPECIFIED, UNCOMP 08/25/2015 JOSE GARZA Ot F32.9 MAJOR DEPRESSIVE DISORDER, SINGLE EPISOD 08/25/2015 JOSE GARZA Lonnie Ot G47.33 OBSTRUCTIVE SLEEP APNEA (ADULT) (PEDIATR 08/25/2015 KAYLA, JOSE Fleming Ot I10 ESSENTIAL (PRIMARY) HYPERTENSION 08/25/2015 KAYLA JOSE Fleming Ot J44.9 CHRONIC OBSTRUCTIVE PULMONARY DISEASE, U 08/25/2015 KAYLA GREYSONDONELL Lonnie Ot M32.10 SYSTEMIC LUPUS ERYTHEMATOSUS, ORGAN OR S 08/25/2015 KAYLA JOSE Fleming Ot 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 08/25/2015 KAYLA JOSE Fleming Ot Z86.2 PRSNL HISTORY OF DIS OF THE BLD/BLD-FORM 08/25/2015 KAYLA JOSE Fleming Ot Z86.711 PERSONAL HISTORY OF PULMONARY EMBOLISM 08/25/2015 KAYLAJOSE Ot Z86.718 PERSONAL HISTORY OF OTHER VENOUS THROMBO 09/17/2015 Ot 305.1 TOBA HOME HEALTH ADMINISTRATOR USE DISORDER 09/17/2015 Ot 496 CHR AI RWAY OBSTRUCT NEC 09/17/2015 Ot 786.05 CALLIE RTNESS OF BREATH 09/17/2015 Ot V58.69 OTH MED,LT,CURRENT USE 10/13/2015 RODNEY SHAW MD Ot G89.29 OTHER CHRONIC PAIN 10/13/2015 RODNEY SHAW MD Ot J44.1 CHRONIC OBSTRUCTIVE PULMONARY DISEASE W 10/13/2015 COLIN POLLARD, RODNEY Rai Ot R00.0 TACHYCARDIA, UNSPECIFIED 10/13/2015 RODNEY SHAW MD Ot R07.89 OTHER CHEST PAIN 10/13/2015 RODNEY SHAW MD Ot Z79.891 PRISON (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 OF OPIATE ANALGE 10/13/2015 RODNEY SHAW MD Ot Z87.891 PERSONAL HISTORY OF NICOTINE DEPENDENCE 10/14/2015 RODNEY SHAW MD Ot G89.29 OTHER CHRONIC PAIN 10/14/2015 RODNEY SHAW MD Ot J44.1 CHRONIC OBSTRUCTIVE PULMONARY DISEASE W 10/14/2015 RODNEY SHAW MD Ot R00.0 TACHYCARDIA, UNSPECIFIED 10/14/2015 RODNEY SHAW MD Ot R07.89 OTHER CHEST PAIN 10/14/2015 RODNEY SHAW MD Ot Z79.891 RESIDENTIAL TEAM LEADER (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 OF OPIATE ANALGE 10/14/2015 RODNEY SHAW MD T Ot Z87.891 PERSONAL HISTORY OF NICOTINE DEPENDENCE 10/14/2015 RODNEY SHAW MD Ot G89.29 OTHER CHRONIC PAIN 10/14/2015 RODNEY SHAW MD Ot J44.1 CHRONIC OBSTRUCTIVE PULMONARY DISEASE W 10/14/2015 RODNEY SHAW MD Ot R00.0 TACHYCARDIA, UNSPECIFIED 10/14/2015 RODNEY SHAW MD Ot R07.89 OTHER CHEST PAIN 10/14/2015 RODNEY SHAW MD Ot Z79.891 RESIDENTIAL TEAM LEADER (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 OF OPIATE ANALGE 10/14/2015 RODNEY SHAW MD T Ot Z87.891 PERSONAL HISTORY OF NICOTINE DEPENDENCE [...] OR S 11/19/2015 JOSE GARZA Ot Z79.01 PRISON (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 OF ANTICOAGULANT 11/19/2015 JOSE GARZA Ot Z86.2 PRSNL HISTORY OF DIS OF THE BLD/BLD-FORM 11/19/2015 JOSE GARZA Ot Z86.711 PERSONAL HISTORY OF PULMONARY EMBOLISM 11/19/2015 JOSE GARZA Ot Z86.718 PERSONAL HISTORY OF OTHER VENOUS THROMBO 11/28/2015 KAYLAJOSE Ot D68.8 OTHER SPECIFIED COAGULATION DEFECTS 12/05/2015 KAYLAJOSE Ot D68.8 OTHER SPECIFIED COAGULATION DEFECTS 12/09/2015 KAYLAJOSE Ot E03.9 HYPOTHYROIDISM, UNSPECIFIED 12/09/2015 JOSE GARZA N Ot E11.9 TYPE 2 DIABETES MELLITUS WITHOUT COMPLIC 12/09/2015 JOSE GARZA Ot F17.200 NICOTINE DEPENDENCE, UNSPECIFIED, UNCOMP 12/09/2015 JOSE GARZA Ot F32.9 MAJOR DEPRESSIVE DISORDER, SINGLE EPISOD 12/09/2015 JOSE GARZA N Ot G47.33 OBSTRUCTIVE SLEEP APNEA (ADULT) (PEDIATR 12/09/2015 JOSE GARZA N Ot I10 ESSENTIAL (PRIMARY) HYPERTENSION 12/09/2015 JOSE GARZA Ot J44.9 CHRONIC OBSTRUCTIVE PULMONARY DISEASE, U 12/09/2015 JOSE GARZA N Ot M32.10 SYSTEMIC LUPUS ERYTHEMATOSUS, ORGAN OR S 12/09/2015 JOSE GARZA Ot 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 12/09/2015 JOSE GARZA Ot Z86.2 PRSNL HISTORY OF DIS OF THE BLD/BLD-FORM 12/09/2015 JOSE GARZA Ot Z86.711 PERSONAL HISTORY OF PULMONARY EMBOLISM 12/09/2015 JOSE GARZA Ot Z86.718 PERSONAL HISTORY OF [...] OR S 12/18/2015 JOSE GARZA Ot Z79.01 PRISON (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 OF ANTICOAGULANT 12/18/2015 JOSE GARZA Ot Z86.2 PRSNL HISTORY OF DIS OF THE BLD/BLD-FORM 12/18/2015 JOSE GARZA Ot Z86.711 PERSONAL HISTORY OF PULMONARY EMBOLISM 12/18/2015 JOSE GARZA Ot Z86.718 PERSONAL HISTORY OF OTHER VENOUS THROMBO 12/18/2015 Ot 244.9 HYPO THYROIDISM NOS 12/18/2015 Ot 249.00 SEC DIABETES MELLITUS W/OUT MENTION COMP 12/18/2015 Ot 272.4 HYPE RLIPIDEMIA NEC/NOS 12/18/2015 Ot 305.1 TOBA HOME HEALTH ADMINISTRATOR USE DISORDER 12/18/2015 Ot 401.9 HYPE RTENSION NOS 12/18/2015 Ot 453.50 CHR ONIC VENOUS EMBOLISM THROMBOSIS UNS 12/18/2015 Ot 496 CHR AI RWAY OBSTRUCT NEC 12/18/2015 Ot 710.0 SYST LUPUS ERYTHEMATOSIS 12/18/[address] ABSENCE OF GENITAL ORGANS 12/18/2015 Ot V58.63 JOSE G- TERM(CURRENT)USE OF ANTIPLATELET/AN 12/18/2015 Ot V58.69 OTH MED,LT,CURRENT USE 12/18/2015 Ot 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 12/18/[address] PAIN NOS 12/18/2015 Ot V12.51 HX- VENOUS THROMBOSIS EMBOLISM 12/18/2015 Ot 244.9 HYPO THYROIDISM NOS 12/18/2015 Ot 249.00 SEC DIABETES MELLITUS W/OUT MENTION COMP 12/18/2015 Ot 272.4 HYPE RLIPIDEMIA NEC/NOS 12/18/2015 Ot 305.1 TOBA HOME HEALTH ADMINISTRATOR USE DISORDER 12/18/2015 Ot 311 DEPRES SIVE DISORDER NEC 12/18/2015 Ot 416.2 THIRD RAIL INSTALLER KOLBY PULMONARY EMBOLISM 12/18/2015 Ot 453.50 CHR ONIC VENOUS EMBOLISM THROMBOSIS UNS 12/18/2015 Ot 496 CHR AI RWAY OBSTRUCT NEC 12/18/2015 Ot 710.0 SYST LUPUS ERYTHEMATOSIS 12/18/2015 Ot 780.57 UNS PECIFIED SLEEP APNEA 12/18/[address] ABSENCE OF GENITAL ORGANS 12/18/2015 Ot V58.63 JOSE G- TERM(CURRENT)USE OF ANTIPLATELET/AN 12/18/2015 Ot V58.69 OTH MED,LT,CURRENT USE 12/18/2015 Ot V12.51 HX- VENOUS THROMBOSIS EMBOLISM 12/18/2015 Ot V72.83 EXA M PRE- OPERATIVE NEC 12/18/2015 Ot 453.50 CHR ONIC VENOUS EMBOLISM THROMBOSIS UNS 12/18/2015 Ot 784.0 HEAD ACHE 12/18/2015 Ot V64.3 NO P VERA FOR REASONS NEC 12/18/2015 Ot 996.74 OTH COMPL DUE TO OT VASCULAR DEVICE,IMP 12/18/2015 Ot 286.9 COAG ULAT DEFECT NEC/NOS 12/18/2015 Ot V72.84 EXA M PRE- OPERATIVE NOS 12/18/2015 Ot 453.41 ACU TE VENOUS EMBOLISM THROMBOSIS DEEP 12/18/2015 MONICA POLLARD, MAI Alexandra Ot 553.21 INCISIONAL HERNIA 12/18/2015 MAI ANDERSON MD Ot V72.84 EXAM PRE-OPERATIVE NOS 12/18/2015 MONICA POLLARD, MAI Alexandra Ot V74.8 SCREEN-BACTERIAL DIS NEC 12/18/2015 MONICO VALLE MD Ot 244.9 HYPOTHYROIDISM NOS 12/18/2015 MONICO VALLE MD Ot 250.00 DIAB WALLY [...] MED,LT,CURRENT USE 12/18/2015 MIKAL BRUNNER DO Ot 285. 9 ANEMIA NOS 12/18/2015 MIKAL BRUNNER DO Ot 305. 1 TOBACCO USE DISORDER 12/18/2015 MIKAL BRUNNER DO Ot 327. 23 OBSTRUCTIVE SLEEP APNEA (ADULT) (PEDIATR 12/18/2015 MIKAL BRUNNER DO Ot 493. 20 CHRONIC OBSTRUCTIVE ASTHMA, NOS 12/18/2015 MIKAL BRUNNER DO Ot 710. 0 SYST LUPUS ERYTHEMATOSIS 12/18/2015 MIKAL BRUNNER DO Ot 716. 90 ARTHROPATHY NOS-UNSPEC 12/18/2015 MIKAL BRUNNER DO Ot 786. 05 SHORTNESS OF BREATH 12/18/2015 RADHA POLLARD, HAZEL N Ot 728.85 SPASM OF MUSCLE 12/18/2015 GABY POLLARD, CANDE Gibbs Ot 724. 2 LUMBAGO 12/18/2015 RICARDO CHACKO 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 Ot 280.9 IRON DEFIC ANEMIA NOS 12/18/2015 RICARDO CHACKO [employer]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 Ot 585.3 CHRONIC KIDNEY DISEASE, STAGE III (MODER 12/18/2015 RICARDO CHACKOP Ot 795.79 OTH AND UNSPEC NONSPECIFIC IMMUNOLOGICAL 12/18/2015 RICARDO CHACKO [employer]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 Ot V12.51 HX-VENOUS THROMBOSIS EMBOLISM 12/18/2015 RICARDO CHACKO [employer]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 Ot V12.55 PERSONAL HISTORY OF PULMONARY EMBOLISM 12/18/2015 RICARDO CHACKOP Ot V58.69 OTH MED,LT,CURRENT USE 12/18/2015 RADHA POLLARD, HAZEL N Ot 790 .5 ABN SERUM ENZY LEVEL NEC 12/18/2015 HAZEL GARCIA MD Ot 599 .0 URIN TRACT INFECTION NOS 12/18/2015 MONICA POLLARD, MAI S Ot 285.9 ANEMIA NOS 12/18/2015 DANIEL PORTER DO Ot M51.37 OTHER INTERVERTEBRAL DISC DEGENERATION, 12/18/2015 RICARDO CHACKO 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 Ot E03.9 HYPOTHYROIDISM, UNSPECIFIED 12/18/2015 RICARDO CHACKO [employer]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 Ot E11.9 TYPE 2 DIABETES MELLITUS WITHOUT COMPLIC 12/18/2015 RICARDO CHACKO [employer]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 Ot F17.200 NICOTINE DEPENDENCE, UNSPECIFIED, UNCOMP 12/18/2015 RICARDO CHACKO 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 Ot F32.9 MAJOR DEPRESSIVE DISORDER, SINGLE EPISOD 12/18/2015 RICARDO CHACKO 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 Ot G47.33 OBSTRUCTIVE SLEEP APNEA (ADULT) (PEDIATR 12/18/2015 RICARDO CHACKOP Ot I 10 ESSENTIAL (PRIMARY) HYPERTENSION 12/18/2015 RICARDO CHACKOP Ot J44.9 CHRONIC OBSTRUCTIVE PULMONARY DISEASE, U 12/18/2015 RICARDO CHACKO 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 Ot M32.10 SYSTEMIC LUPUS ERYTHEMATOSUS, ORGAN OR S 12/18/2015 RICARDO CHACKOP Ot Z79.01 PRISON (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 OF ANTICOAGULANT 12/18/2015 RICARDO CHACKOP Ot Z86.2 PRSNL HISTORY OF DIS OF THE BLD/BLD-FORM 12/18/2015 RICARDO CHACKOP Ot Z86.711 PERSONAL HISTORY OF PULMONARY EMBOLISM 12/18/2015 RICARDO CHACKOP Ot Z86.718 PERSONAL HISTORY OF OTHER VENOUS THROMBO 12/18/2015 MILEY SANCHEZP Ot M46.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, THORACIC REGION 12/18/2015 [...] S 12/18/2015 JOSE GARZA Ot 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 12/18/2015 JOSE GARZA Ot Z86.2 PRSNL HISTORY OF DIS OF THE BLD/BLD-FORM 12/18/2015 JOSE GARZA Ot Z86.711 PERSONAL HISTORY OF PULMONARY EMBOLISM 12/18/2015 JOSE GARZA Ot Z86.718 PERSONAL HISTORY OF OTHER VENOUS THROMBO 12/18/2015 JOSE GARZA Ot D68.8 OTHER SPECIFIED COAGULATION DEFECTS 12/19/2015 JOSE GARZA Lonnie Ot E03.9 HYPOTHYROIDISM, UNSPECIFIED 12/19/2015 KAYLA JOSE Fleming Ot E11.9 TYPE 2 DIABETES MELLITUS WITHOUT COMPLIC 12/19/2015 KAYLA JOSE Felming Ot F17.200 NICOTINE DEPENDENCE, UNSPECIFIED, UNCOMP 12/19/2015 KAYLA JOSE Fleming Ot F32.9 MAJOR DEPRESSIVE DISORDER, SINGLE EPISOD 12/19/2015 KAYLA JOSE Fleming Ot G47.33 OBSTRUCTIVE SLEEP APNEA (ADULT) (PEDIATR 12/19/2015 KAYLAJOSE Ot I10 ESSENTIAL (PRIMARY) HYPERTENSION 12/19/2015 KAYLA JOSE Fleming Ot J44.9 CHRONIC OBSTRUCTIVE PULMONARY DISEASE, U 12/19/2015 KAYLA JOSE Fleming Ot M32.10 SYSTEMIC LUPUS ERYTHEMATOSUS, ORGAN OR S 12/19/2015 KAYLAJOSE Ot 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 12/19/2015 KAYLA JOSE Fleming Ot Z86.2 PRSNL HISTORY OF DIS OF THE BLD/BLD-FORM 12/19/2015 KAYLAJOSE Ot Z86.711 PERSONAL HISTORY OF PULMONARY EMBOLISM 12/19/2015 JOSE GARZA Ot Z86.718 PERSONAL HISTORY OF OTHER VENOUS THROMBO 01/16/2016 JENNY MARIE MD Ot F17.210 NICOTINE DEPENDENCE, CIGARETTES, UNCOMPL 01/16/2016 JENNY MARIE MD Ot I10 ESSENTIAL (PRIMARY) HYPERTENSION 01/16/2016 JENNY MARIE MD, Ot J44.9 CHRONIC OBSTRUCTIVE PULMONARY DISEASE, U 01/16/2016 JENNY MARIE MD Ot R10.12 LEFT UPPER QUADRANT PAIN 01/16/2016 JENNY MARIE MD, Ot R10.32 LEFT LOWER QUADRANT PAIN 01/16/2016 JENNY MARIE MD, Ot R11.2 NAUSEA WITH VOMITING, UNSPECIFIED 01/16/2016 JENNY MARIE MD, Ot R19.7 DIARRHEA, UNSPECIFIED 01/16/2016 JENNY MARIE MD, Ot Z79.891 PRISON (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 OF OPIATE ANALGE 01/16/2016 JENNY MARIE MD, Ot Z79.899 OTHER RESIDENTIAL TEAM LEADER (CURRENT) DRUG THERAPY 01/16/2016 JENNY MARIE MD [...] 01/19/2016 JENNY MARIE MD Ot Z79.891 RESIDENTIAL TEAM LEADER (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 OF OPIATE ANALGE 01/19/2016 JENNY MARIE MD Ot Z79.899 OTHER RESIDENTIAL TEAM LEADER (CURRENT) DRUG THERAPY 01/19/2016 JENNY MARIE MD [...] UNSPECIFIED 01/19/2016 JENNY MARIE MD Ot Z79.891 PRISON (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 OF OPIATE ANALGE 01/19/2016 JENNY MARIE MD Ot Z79.899 OTHER PRISON (CURRENT) DRUG THERAPY 01/19/2016 JENNY MARIE MD Ot Z98.0 INTESTINAL BYPASS AND ANASTOMOSIS STATUS 02/09/2016 JOSE GARZA N Ot E03.9 HYPOTHYROIDISM, UNSPECIFIED 02/09/2016 KAYLA, JOSE N Ot E11.9 TYPE 2 DIABETES MELLITUS WITHOUT COMPLIC 02/09/2016 KAYLA JOSE N Ot F17.200 NICOTINE DEPENDENCE, UNSPECIFIED, UNCOMP 02/09/2016 JOSE GARZA N Ot F32.9 MAJOR DEPRESSIVE DISORDER, SINGLE EPISOD 02/09/2016 KAYLA, JOSE N Ot G47.33 OBSTRUCTIVE SLEEP APNEA (ADULT) (PEDIATR 02/09/2016 KAYLA JOSE N Ot I10 ESSENTIAL (PRIMARY) HYPERTENSION 02/09/2016 KAYLAJOSE N Ot J44.9 CHRONIC OBSTRUCTIVE PULMONARY DISEASE, U 02/09/2016 KAYLA JOSE N Ot M32.10 SYSTEMIC LUPUS ERYTHEMATOSUS, ORGAN OR S 02/09/2016 KAYLA, JOSE N Ot 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 02/09/2016 JOSE GARZA N Ot Z86.2 PRSNL HISTORY OF DIS OF THE BLD/BLD-FORM 02/09/2016 JOSE GARZA N Ot Z86.711 PERSONAL HISTORY OF PULMONARY EMBOLISM 02/09/2016 KAYLAJOSE N Ot Z86.718 PERSONAL HISTORY OF OTHER VENOUS THROMBO 02/20/2016 KAYLA, GREYSONDONELL N Ot E03.9 HYPOTHYROIDISM, UNSPECIFIED 02/20/2016 KAYLA JOSE N Ot E11.9 TYPE 2 DIABETES MELLITUS WITHOUT COMPLIC 02/20/2016 JOSE GARZA N Ot F17.200 NICOTINE DEPENDENCE, UNSPECIFIED, UNCOMP 02/20/2016 KAYLA, JOSE N Ot F32.9 MAJOR DEPRESSIVE DISORDER, SINGLE EPISOD 02/20/2016 KAYLA JOSE N Ot G47.33 OBSTRUCTIVE SLEEP APNEA (ADULT) (PEDIATR 02/20/2016 KAYLA BOBDONELL N Ot I10 ESSENTIAL (PRIMARY) HYPERTENSION 02/20/2016 JOSE GARZA N Ot J44.9 CHRONIC OBSTRUCTIVE PULMONARY DISEASE, U 02/20/2016 KAYLAJOSE N Ot M32.10 SYSTEMIC LUPUS ERYTHEMATOSUS, ORGAN OR S 02/20/2016 KAYLAJOSE N Ot Z79.01 PRISON (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 OF ANTICOAGULANT 02/20/2016 JOSE GARZA N Ot Z86.2 PRSNL HISTORY OF DIS OF THE BLD/BLD-FORM 02/20/2016 JOSE GARZA N Ot Z86.711 PERSONAL HISTORY OF PULMONARY EMBOLISM 02/20/2016 KAYLA GREYSONDONELL N Ot Z86.718 PERSONAL HISTORY OF OTHER VENOUS THROMBO 03/17/2016 JOSE GARZA Lonnie Ot E03.9 HYPOTHYROIDISM, UNSPECIFIED 03/17/2016 JOSE GARZA N Ot E11.9 TYPE 2 DIABETES MELLITUS WITHOUT COMPLIC 03/17/2016 KAYLA JOSE N Ot F17.200 NICOTINE DEPENDENCE, UNSPECIFIED, UNCOMP 03/17/2016 KAYLA GREYSONDONELL N Ot F32.9 MAJOR DEPRESSIVE DISORDER, SINGLE EPISOD 03/17/2016 KAYLA, JOSE N Ot G47.33 OBSTRUCTIVE SLEEP APNEA (ADULT) (PEDIATR 03/17/2016 JOSE GARZA N Ot I10 ESSENTIAL (PRIMARY) HYPERTENSION 03/17/2016 KAYLAGREYSONDONELL N Ot J44.9 CHRONIC OBSTRUCTIVE PULMONARY DISEASE, U 03/17/2016 KAYLA, GREYSONDONELL N Ot M32.10 SYSTEMIC LUPUS ERYTHEMATOSUS, ORGAN OR S 03/17/2016 KAYLAGREYSONDONELL Lonnie Ot Z79.01 PRISON (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 OF ANTICOAGULANT 03/17/2016 JOSE GARZA N Ot Z86.2 PRSNL HISTORY OF DIS OF THE BLD/BLD-FORM 03/17/2016 JOSE GARZA N Ot Z86.711 PERSONAL HISTORY OF PULMONARY EMBOLISM 03/17/2016 JOSE GARZA N Ot Z86.718 PERSONAL HISTORY OF OTHER VENOUS THROMBO 03/18/2016 Ot 305.1 TOBA HOME HEALTH ADMINISTRATOR USE DISORDER 03/18/2016 Ot 496 CHR AI RWAY OBSTRUCT NEC 03/18/2016 Ot 786.05 CALLIE RTNESS OF BREATH 03/18/2016 Ot V58.69 OTH MED,LT,CURRENT USE 03/18/2016 JOSE GARZA N Ot E03.9 HYPOTHYROIDISM, UNSPECIFIED 03/18/2016 KAYLAJOSE N Ot E11.9 TYPE 2 DIABETES MELLITUS WITHOUT COMPLIC 03/18/2016 KAYLAJOSE N Ot F17.200 NICOTINE DEPENDENCE, UNSPECIFIED, UNCOMP 03/18/2016 KAYLA, GREYSONDONELL N Ot F32.9 MAJOR DEPRESSIVE DISORDER, SINGLE EPISOD 03/18/2016 KAYLAJOSE N Ot G47.33 OBSTRUCTIVE SLEEP APNEA (ADULT) (PEDIATR 03/18/2016 KAYLA GREYSONDONELL Lonnie Ot I10 ESSENTIAL (PRIMARY) HYPERTENSION 03/18/2016 JOSE GARZA Lonnie Ot J44.9 CHRONIC OBSTRUCTIVE PULMONARY DISEASE, U 03/18/2016 JOSE GARZA Lonnie Ot M32.10 SYSTEMIC LUPUS ERYTHEMATOSUS, ORGAN OR S 03/18/2016 JOSE GARZA Lonnie Ot 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 03/18/2016 JOSE GARZA Lonnie Ot Z86.2 PRSNL HISTORY OF DIS OF THE BLD/BLD-FORM 03/18/2016 JOSE GARZA Lonnie Ot Z86.711 PERSONAL HISTORY OF PULMONARY EMBOLISM 03/18/2016 KAYLA GREYSONDONELL Lonnie Ot Z86.718 PERSONAL HISTORY OF OTHER VENOUS THROMBO 04/05/2016 ABRAN DO FLORIAN K Ot E11.9 TYPE 2 DIABETES MELLITUS WITHOUT COMPLIC 04/05/2016 ABRAN DO FLORIAN K Ot F17.210 NICOTINE DEPENDENCE, CIGARETTES, UNCOMPL 04/05/2016 ABRAN DO FLORIAN K Ot I10 ESSENTIAL (PRIMARY) HYPERTENSION 04/05/2016 ABRAN DO FLORIAN K Ot J44.9 CHRONIC OBSTRUCTIVE PULMONARY DISEASE, U 04/05/2016 ABRAN DO FLORIAN K Ot K59.00 CONSTIPATION, UNSPECIFIED 04/05/2016 ABRAN DO FLORIAN K Ot L93.0 DISCOID LUPUS ERYTHEMATOSUS 04/05/2016 ABRAN DO FLORIAN K Ot N20.0 CALCULUS OF KIDNEY 04/05/2016 ABRAN DO FLORIAN K Ot N39.0 URINARY TRACT INFECTION, SITE NOT SPECIF 04/05/2016 ABRAN DO FLORIAN K Ot R10.31 RIGHT LOWER QUADRANT PAIN 04/05/2016 ABRAN DO FLORIAN K Ot Z79.891 PRISON (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 OF OPIATE ANALGE 04/05/2016 ABRAN DO FLORIAN K Ot Z79.899 OTHER RESIDENTIAL TEAM LEADER (CURRENT) DRUG THERAPY 04/06/2016 ABRAN DO FLORIAN K Ot E11.9 TYPE 2 DIABETES MELLITUS WITHOUT COMPLIC 04/06/2016 ABRAN DO, LFORIAN K Ot F17.210 NICOTINE DEPENDENCE, CIGARETTES, UNCOMPL 04/06/2016 ABRAN DO FLORIAN K Ot I10 ESSENTIAL (PRIMARY) HYPERTENSION 04/06/2016 ABRAN DO FLORIAN K Ot J44.9 CHRONIC OBSTRUCTIVE PULMONARY DISEASE, U 04/06/2016 FLORIAN OSULLIVAN DO Ot K59.00 CONSTIPATION, UNSPECIFIED 04/06/2016 FLORIAN OSULLIVAN DO Ot L93.0 DISCOID LUPUS ERYTHEMATOSUS 04/06/2016 FLORIAN OSULLIVAN DO Ot N20.0 CALCULUS OF KIDNEY 04/06/2016 FLORIAN OSULLIVAN DO Ot N39.0 URINARY TRACT INFECTION, SITE NOT SPECIF 04/06/2016 FLORIAN OSULLIVAN DO Ot R10.31 RIGHT LOWER QUADRANT PAIN 04/06/2016 FLORIAN OSULLIVAN DO Ot Z79.891 PRISON (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 OF OPIATE ANALGE 04/06/2016 FLORIAN OSULLIVAN DO Ot Z79.899 OTHER RESIDENTIAL TEAM LEADER (CURRENT) DRUG THERAPY 04/07/2016 Ot 244.9 HYPO THYROIDISM NOS 04/07/2016 Ot 249.00 SEC DIABETES MELLITUS W/OUT MENTION COMP 04/07/2016 Ot 272.4 HYPE RLIPIDEMIA NEC/NOS 04/07/2016 Ot 305.1 TOBA HOME HEALTH ADMINISTRATOR USE DISORDER 04/07/2016 Ot 401.9 HYPE RTENSION NOS 04/07/2016 Ot 453.50 CHR ONIC VENOUS EMBOLISM THROMBOSIS UNS 04/07/2016 Ot 496 CHR AI RWAY OBSTRUCT NEC 04/07/2016 Ot 710.0 SYST LUPUS ERYTHEMATOSIS 04/07/[address] ABSENCE OF GENITAL ORGANS 04/07/2016 Ot V58.63 JOSE G- TERM(CURRENT)USE OF ANTIPLATELET/AN 04/07/2016 Ot V58.69 OTH MED,LT,CURRENT USE 04/07/2016 Ot 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 04/07/[address] PAIN NOS 04/07/2016 Ot V12.51 HX- VENOUS THROMBOSIS EMBOLISM 04/07/2016 Ot 244.9 HYPO THYROIDISM NOS 04/07/2016 Ot 249.00 SEC DIABETES MELLITUS W/OUT MENTION COMP 04/07/2016 Ot 272.4 HYPE RLIPIDEMIA NEC/NOS 04/07/2016 Ot 305.1 TOBA HOME HEALTH ADMINISTRATOR USE DISORDER 04/07/2016 Ot 311 DEPRES SIVE DISORDER NEC 04/07/2016 Ot 416.2 THIRD RAIL INSTALLER KOLBY PULMONARY EMBOLISM 04/07/2016 Ot 453.50 CHR ONIC VENOUS EMBOLISM THROMBOSIS UNS 04/07/2016 Ot 496 CHR AI RWAY OBSTRUCT NEC 04/07/2016 Ot 710.0 SYST LUPUS ERYTHEMATOSIS 04/07/2016 Ot 780.57 UNS PECIFIED SLEEP APNEA 04/07/[address] ABSENCE OF GENITAL ORGANS 04/07/2016 Ot V58.63 JOSE G- TERM(CURRENT)USE OF ANTIPLATELET/AN 04/07/2016 Ot V58.69 OTH MED,LT,CURRENT USE 04/07/2016 Ot V12.51 HX- VENOUS THROMBOSIS EMBOLISM 04/07/2016 Ot V72.83 EXA M PRE- OPERATIVE NEC 04/07/2016 Ot 453.50 CHR ONIC VENOUS EMBOLISM THROMBOSIS UNS 04/07/2016 Ot 784.0 HEAD ACHE 04/07/2016 Ot V64.3 NO P VERA FOR REASONS NEC 04/07/2016 Ot 996.74 OTH COMPL DUE TO OT VASCULAR DEVICE,IMP 04/07/2016 Ot 286.9 COAG ULAT DEFECT NEC/NOS 04/07/2016 Ot V72.84 EXA M PRE- OPERATIVE NOS 04/07/2016 Ot 453.41 ACU TE VENOUS EMBOLISM THROMBOSIS DEEP 04/07/2016 MONICA POLLARD, MAI Alexandra Ot 553.21 INCISIONAL HERNIA 04/07/2016 MONICA POLLARD, MAI Alexandra Ot V72.84 EXAM PRE-OPERATIVE NOS 04/07/2016 MONICA POLLARD, MAI Alexandra Ot V74.8 SCREEN-BACTERIAL DIS NEC 04/07/2016 LEONARD POLLARD, MONICO Jones Ot 244.9 HYPOTHYROIDISM NOS 04/07/2016 LEONARD POLLARD, MONICO Jones Ot 250.00 DIAB WALLY WO COMPL, TYPE II OR UNSPEC TY 04/07/2016 LEONARD POLLARD, MONICO Jones Ot 305.1 TOBACCO USE DISORDER 04/07/2016 MONICO VALLE MD Ot 311 DEPRESSIVE DISORDER NEC 04/07/2016 MONICO VALLE MD Ot 327.23 OBSTRUCTIVE SLEEP APNEA (ADULT) (PEDIATR 04/07/2016 LEONARD POLLARD, MONICO Jones Ot 401.9 HYPERTENSION NOS 04/07/2016 MONICO VALLE MD Ot 416.2 CHRONIC PULMONARY EMBOLISM 04/07/2016 MONICO VALLE MD Ot 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 9 ANEMIA NOS 04/07/2016 MIKAL BRUNNER DO Ot 305. 1 TOBACCO USE DISORDER 04/07/2016 MIKAL BRUNNER DO Ot 327. 23 OBSTRUCTIVE SLEEP APNEA (ADULT) (PEDIATR 04/07/2016 MIKAL BRUNNER DO Ot 493. 20 CHRONIC OBSTRUCTIVE ASTHMA, NOS 04/07/2016 MIKAL BRUNNER DO Ot 710. 0 SYST LUPUS ERYTHEMATOSIS 04/07/2016 MIKAL BRUNNER DO Ot 716. 90 ARTHROPATHY NOS-UNSPEC 04/07/2016 MIKAL BRUNNER DO Ot 786. 05 SHORTNESS OF BREATH 04/07/2016 RADHA POLLARD, HAZEL Fleming Ot 728.85 SPASM OF MUSCLE 04/07/2016 GABY POLLARD, CANDE Gibbs Ot 724. 2 LUMBAGO 04/07/2016 RICARDO CHACKO Ot 280.9 IRON DEFIC ANEMIA NOS 04/07/2016 RICARDO CHACKO Ot 585.3 CHRONIC KIDNEY DISEASE, STAGE III (MODER 04/07/2016 RICARDO CHACKO Ot 795.79 OTH AND UNSPEC NONSPECIFIC IMMUNOLOGICAL 04/07/2016 RICARDO CHACKO Ot V12.51 HX-VENOUS THROMBOSIS EMBOLISM 04/07/2016 RICARDO CHACKO Ot V12.55 PERSONAL HISTORY OF PULMONARY EMBOLISM 04/07/2016 RICARDO CHACKO Ot V58.69 OTH MED,LT,CURRENT USE 04/07/2016 HAZEL GARCIA MD Ot 790 .5 ABN SERUM ENZY LEVEL NEC 04/07/2016 HAZEL GARCIA MD Ot 599 .0 URIN TRACT INFECTION NOS 04/07/2016 MONICA POLLARD, MAI Alexandra Ot 285.9 ANEMIA NOS 04/07/2016 DANIEL PORTER DO Ot M51.37 OTHER INTERVERTEBRAL DISC DEGENERATION, 04/07/2016 RICARDO CHACKO Ot E03.9 HYPOTHYROIDISM, UNSPECIFIED 04/07/2016 RICARDO CHACKO Ot E11.9 TYPE 2 DIABETES MELLITUS WITHOUT COMPLIC 04/07/2016 CHACKO, HILAH S 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 Ot F17.200 NICOTINE DEPENDENCE, UNSPECIFIED, UNCOMP 04/07/2016 CHACKORICARDO Alexandra Ibrahima 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 Ot F32.9 MAJOR DEPRESSIVE DISORDER, SINGLE EPISOD 04/07/2016 CHACKO, TAMARTERE Ibrahima 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 Ot G47.33 OBSTRUCTIVE SLEEP APNEA (ADULT) (PEDIATR 04/07/2016 RICARDO CHACKO 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 Ot I 10 ESSENTIAL (PRIMARY) HYPERTENSION 04/07/2016 RICARDO CHACKOP Ot J44.9 CHRONIC OBSTRUCTIVE PULMONARY DISEASE, U 04/07/2016 RICARDO CHACKO 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 Ot M32.10 SYSTEMIC LUPUS ERYTHEMATOSUS, ORGAN OR S 04/07/2016 RICARDO CHACKO 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 Ot 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 04/07/2016 RICARDO CHACKO 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 Ot Z86.2 PRSNL HISTORY OF DIS OF THE BLD/BLD-FORM 04/07/2016 RICARDO CHACKO 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 Ot Z86.711 PERSONAL HISTORY OF PULMONARY EMBOLISM 04/07/2016 RICARDO CHACKO 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 Ot Z86.718 PERSONAL HISTORY OF OTHER VENOUS THROMBO 04/07/2016 MILEY SANCHEZ 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 Ot M46.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, THORACIC REGION 04/07/2016 JOSE GARZA Ot D68.8 OTHER SPECIFIED COAGULATION DEFECTS 04/07/2016 JOSE GARZA Ot E03.9 HYPOTHYROIDISM, UNSPECIFIED 04/07/2016 JOSE GARZA N Ot E11.9 TYPE 2 DIABETES MELLITUS WITHOUT COMPLIC 04/07/2016 JOSE GARZA Ot F17.200 NICOTINE DEPENDENCE, UNSPECIFIED, UNCOMP 04/07/2016 JOSE GARZA Ot F32.9 MAJOR DEPRESSIVE DISORDER, SINGLE EPISOD 04/07/2016 JOSE GARZA N Ot G47.33 OBSTRUCTIVE SLEEP APNEA (ADULT) (PEDIATR 04/07/2016 JOSE GARZA N Ot I10 ESSENTIAL (PRIMARY) HYPERTENSION 04/07/2016 JOSE GARZA N Ot J44.9 CHRONIC OBSTRUCTIVE PULMONARY DISEASE, U 04/07/2016 JOSE GARZA N Ot M32.10 SYSTEMIC LUPUS ERYTHEMATOSUS, ORGAN OR S 04/07/2016 JOSE GARZA Ot Z79.01 PRISON (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 OF ANTICOAGULANT 04/07/2016 JOSE GARZA N Ot Z86.2 PRSNL HISTORY OF DIS OF THE BLD/BLD-FORM 04/07/2016 JOSE GARZA Lonnie Ot Z86.711 PERSONAL HISTORY OF PULMONARY EMBOLISM 04/07/2016 JOSE GARZA Lonnie Ot Z86.718 PERSONAL HISTORY OF OTHER VENOUS THROMBO 04/07/2016 JENNY MARIE MD Ot E11.9 TYPE 2 DIABETES MELLITUS WITHOUT COMPLIC 04/07/2016 JENNY MARIE MD Ot F17.210 NICOTINE DEPENDENCE, CIGARETTES, UNCOMPL 04/07/2016 JENNY MARIE MD Ot I10 ESSENTIAL (PRIMARY) HYPERTENSION 04/07/2016 JENNY MARIE MD Ot J44.9 CHRONIC OBSTRUCTIVE PULMONARY DISEASE, U 04/07/2016 JENNY MARIE MD Ot K59.03 DRUG INDUCED CONSTIPATION 04/07/2016 JENNY MARIE MD Ot R10.31 RIGHT LOWER QUADRANT PAIN 04/07/2016 JENNY MARIE MD Ot R11.2 NAUSEA WITH VOMITING, UNSPECIFIED 04/07/2016 JENNY MARIE MD Ot Z79.4 RESIDENTIAL TEAM LEADER (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 OF INSULIN 04/07/2016 JENNY MARIE MD Ot Z79.899 OTHER RESIDENTIAL TEAM LEADER (CURRENT) DRUG THERAPY 04/08/2016 JENNY MARIE MD Ot E11.9 TYPE 2 DIABETES MELLITUS WITHOUT COMPLIC 04/08/2016 JENNY MARIE MD Ot F17.210 NICOTINE DEPENDENCE, CIGARETTES, UNCOMPL 04/08/2016 JENNY MARIE MD Ot I10 ESSENTIAL (PRIMARY) HYPERTENSION 04/08/2016 JENNY MARIE MD, Ot J44.9 CHRONIC OBSTRUCTIVE PULMONARY DISEASE, U 04/08/2016 JENNY MARIE MD Ot K59.03 DRUG INDUCED CONSTIPATION 04/08/2016 JENNY MARIE MD Ot R10.31 RIGHT LOWER QUADRANT PAIN 04/08/2016 JENNY MARIE MD Ot R11.2 NAUSEA WITH VOMITING, UNSPECIFIED 04/08/2016 JENNY MARIE MD Ot Z79.899 OTHER PRISON (CURRENT) DRUG THERAPY 04/09/2016 JENNY MARIE MD Ot E11.9 TYPE 2 DIABETES MELLITUS WITHOUT COMPLIC 04/09/2016 JENNY MARIE MD Ot F17.210 NICOTINE DEPENDENCE, CIGARETTES, UNCOMPL 04/09/2016 JENNY MARIE MD Ot I10 ESSENTIAL (PRIMARY) HYPERTENSION 04/09/2016 JENNY MARIE MD Ot J44.9 CHRONIC OBSTRUCTIVE PULMONARY DISEASE, U 04/09/2016 JENNY MARIE MD, Ot K59.03 DRUG INDUCED CONSTIPATION 04/09/2016 JENNY MARIE MD Ot R10.31 RIGHT LOWER QUADRANT PAIN 04/09/2016 JENNY MARIE MD Ot R11.2 NAUSEA WITH VOMITING, UNSPECIFIED 04/09/2016 JENNY MARIE MD Ot Z79.4 RESIDENTIAL TEAM LEADER (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 OF INSULIN 04/09/2016 JENNY MARIE MD, Ot Z79.899 OTHER PRISON (CURRENT) DRUG THERAPY 09/20/2016 MANA DUENAS APRN Ot G47.33 OBSTRUCTIVE SLEEP APNEA (ADULT) (PEDIATR 09/21/2016 MANA DUENAS APRN Ot G47.33 OBSTRUCTIVE SLEEP APNEA (ADULT) (PEDIATR 09/21/2016 MANA DUENAS APRN Ot G47.33 OBSTRUCTIVE SLEEP APNEA (ADULT) (PEDIATR 09/21/2016 Ot 996.74 OTH COMPL DUE TO OTH VASCULAR DEVICE,IMP 09/21/2016 Ot 286.9 COAG ULAT DEFECT NEC/NOS 09/21/2016 Ot V72.84 EXA M PRE- OPERATIVE NOS 09/21/2016 Ot 453.41 ACU TE VENOUS EMBOLISM THROMBOSIS DEEP 09/21/2016 MAI ANDERSON [...] VALLE MD Ot V58.61 ANTICOAGULANTS,LT,CURRENT USE 09/21/2016 MNOICO VALLE MD Ot V58.69 OTH MED,LT,CURRENT USE 09/21/2016 MIKAL BRUNNER DO Ot 285. 9 ANEMIA NOS 09/21/2016 MIKAL BRUNNER DO Ot 305. 1 TOBACCO USE DISORDER 09/21/2016 MIKAL BRUNNER DO Ot 327. 23 OBSTRUCTIVE SLEEP APNEA (ADULT) (PEDIATR 09/21/2016 MIKAL BRUNNER DO Ot 493. 20 CHRONIC OBSTRUCTIVE ASTHMA, NOS 09/21/2016 MIKAL BRUNNER DO Ot 710. 0 SYST LUPUS ERYTHEMATOSIS 09/21/2016 MIKAL BRUNNER DO Ot 716. 90 ARTHROPATHY NOS-UNSPEC 09/21/2016 MIKAL BRUNNER DO Ot 786. 05 SHORTNESS OF BREATH 09/21/2016 HAZLE GARCIA MD Ot 728.85 SPASM OF MUSCLE 09/21/2016 GABY POLLARD, CANDE Gibbs Ot 724. 2 LUMBAGO 09/21/2016 RICARDO CHACKO Ot 280.9 IRON DEFIC ANEMIA NOS 09/21/2016 RICARDO CHACKO Ot 585.3 CHRONIC KIDNEY DISEASE, STAGE III (MODER 09/21/2016 RICARDO CHACKO Ot 795.79 OTH AND UNSPEC NONSPECIFIC IMMUNOLOGICAL 09/21/2016 RICARDO CHACKO Ot V12.51 HX-VENOUS THROMBOSIS EMBOLISM 09/21/2016 RICARDO CHACKO Ot V12.55 PERSONAL HISTORY OF PULMONARY EMBOLISM 09/21/2016 RICARDO CHACKO Ot V58.69 OTH MED,LT,CURRENT USE 09/21/2016 HAZEL GARCIA MD Ot 790 .5 ABN SERUM ENZY LEVEL NEC 09/21/2016 HAZEL GARCIA MD Ot 599 .0 URIN TRACT INFECTION NOS 09/21/2016 MONICA POLLARD, MAI S Ot 285.9 ANEMIA NOS 09/21/2016 DANIEL PORTER DO Ot M51.37 OTHER INTERVERTEBRAL DISC DEGENERATION, 09/21/2016 RICARDO CHACKOP Ot E03.9 HYPOTHYROIDISM, UNSPECIFIED 09/21/2016 RICARDO CHACKO 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 Ot E11.9 TYPE 2 DIABETES MELLITUS WITHOUT COMPLIC 09/21/2016 RICARDO CHACKO 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 Ot F17.200 NICOTINE DEPENDENCE, UNSPECIFIED, UNCOMP 09/21/2016 RICARDO CHACKO 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 Ot F32.9 MAJOR DEPRESSIVE DISORDER, SINGLE EPISOD 09/21/2016 RICARDO CHACKO 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 Ot G47.33 OBSTRUCTIVE SLEEP APNEA (ADULT) (PEDIATR 09/21/2016 RICARDO CHACKO 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 Ot I 10 ESSENTIAL (PRIMARY) HYPERTENSION 09/21/2016 RICARDO CHACKOP Ot J44.9 CHRONIC OBSTRUCTIVE PULMONARY DISEASE, U 09/21/2016 RICARDO CHACKOP Ot M32.10 SYSTEMIC LUPUS ERYTHEMATOSUS, ORGAN OR S 09/21/2016 RICARDO CHACKOP Ot Z79.01 PRISON (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 OF ANTICOAGULANT 09/21/2016 RICARDO CHACKO 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 Ot Z86.2 PRSNL HISTORY OF DIS OF THE BLD/BLD-FORM 09/21/2016 RICARDO CHACOK 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 Ot Z86.711 PERSONAL HISTORY OF PULMONARY EMBOLISM 09/21/2016 RICARDO CHACKO 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 Ot Z86.718 PERSONAL HISTORY OF OTHER VENOUS THROMBO 09/21/2016 MILEY SANCHEZ 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 Ot M46.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, THORACIC REGION 09/21/2016 JOSE GARZA Ot D68.8 OTHER SPECIFIED COAGULATION DEFECTS 09/21/2016 JOSE GARZA N Ot E03.9 HYPOTHYROIDISM, UNSPECIFIED 09/21/2016 JOSE GARZA N Ot E11.9 TYPE 2 DIABETES MELLITUS WITHOUT COMPLIC 09/21/2016 JOSE GARZA N Ot F17.200 NICOTINE DEPENDENCE, UNSPECIFIED, UNCOMP 09/21/2016 JOSE GARZA N Ot F32.9 MAJOR DEPRESSIVE DISORDER, SINGLE EPISOD 09/21/2016 JOSE GARZA N Ot G47.33 OBSTRUCTIVE SLEEP APNEA (ADULT) (PEDIATR 09/21/2016 JOSE GARZA N Ot I10 ESSENTIAL (PRIMARY) HYPERTENSION 09/21/2016 KAYLAJOSE N Ot J44.9 CHRONIC OBSTRUCTIVE PULMONARY DISEASE, U 09/21/2016 KAYLA JOSE N Ot M32.10 SYSTEMIC LUPUS ERYTHEMATOSUS, ORGAN OR S 09/21/2016 KAYLA JOSE N Ot Z79.01 PRISON (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 OF ANTICOAGULANT 09/21/2016 KAYLAJOSE N Ot Z86.2 PRSNL HISTORY OF DIS OF THE BLD/BLD-FORM 09/21/2016 JOSE GARZA N Ot Z86.711 PERSONAL HISTORY OF PULMONARY EMBOLISM 09/21/2016 JOSE GARZA N Ot Z86.718 PERSONAL HISTORY OF OTHER VENOUS THROMBO 09/21/2016 MANA DUENAS APRN Ot G47.33 OBSTRUCTIVE SLEEP APNEA (ADULT) (PEDIATR 09/21/2016 MANA DUENAS PSYCHOLOGIST EXPERIMENTAL Ot G47.33 OBSTRUCTIVE SLEEP APNEA (ADULT) (PEDIATR 09/29/2016 JOSE GARZA N Ot E03.9 HYPOTHYROIDISM, UNSPECIFIED 09/29/2016 JOSE GARZA N Ot E11.9 TYPE 2 DIABETES MELLITUS WITHOUT COMPLIC 09/29/2016 JOSE GARZA N Ot F17.200 NICOTINE DEPENDENCE, UNSPECIFIED, UNCOMP 09/29/2016 JOSE GARZA N Ot F32.9 MAJOR DEPRESSIVE DISORDER, SINGLE EPISOD 09/29/2016 JOSE GARZA N Ot G47.33 OBSTRUCTIVE SLEEP APNEA (ADULT) (PEDIATR 09/29/2016 JOSE GARZA N Ot I10 ESSENTIAL (PRIMARY) HYPERTENSION 09/29/2016 JOSE GARZA N Ot J44.9 CHRONIC OBSTRUCTIVE PULMONARY DISEASE, U 09/29/2016 KAYLAJOSE N Ot M32.10 SYSTEMIC LUPUS ERYTHEMATOSUS, ORGAN OR S 09/29/2016 KAYLAJOSE N Ot Z79.01 PRISON (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 OF ANTICOAGULANT 09/29/2016 JOSE GARZA N Ot Z86.2 PRSNL HISTORY OF DIS OF THE BLD/BLD-FORM 09/29/2016 KAYLAJOSE ACOSTA N Ot Z86.711 PERSONAL HISTORY OF PULMONARY EMBOLISM 09/29/2016 JOSE GARZA N Ot Z86.718 PERSONAL HISTORY OF OTHER VENOUS THROMBO 10/11/2016 RICARDO CHACKO [employer]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 Ot N 63 UNSPECIFIED LUMP IN BREAST 10/12/2016 RICARDO CHACKO CAR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 Ot N 63 UNSPECIFIED LUMP IN BREAST 10/12/2016 RICARDO CHACKO CAR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 Ot N 63 UNSPECIFIED LUMP IN BREAST 10/17/2016 RICARDO CHACKO [employer]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 Ot N 63 UNSPECIFIED LUMP IN BREAST 11/04/2016 RICARDO CHACKO CAR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 Ot N 63 UNSPECIFIED LUMP IN BREAST 11/04/2016 MIKAL BRUNNER DO Ot E66. 9 OBESITY, UNSPECIFIED 11/04/2016 MIKAL BRUNNER DO Ot J44. 9 CHRONIC OBSTRUCTIVE PULMONARY DISEASE, U 11/04/2016 MIKAL BRUNNER DO Ot M32. 9 SYSTEMIC LUPUS ERYTHEMATOSUS, UNSPECIFIE 11/04/2016 MIKAL BRUNNER DO Ot N63 UNSPECIFIED LUMP IN BREAST 11/04/2016 MIKAL BRUNNER DO Ot R06. 02 SHORTNESS OF BREATH 11/04/2016 MIKAL BRUNNER DO Ot Z72. 0 TOBACCO USE 11/07/2016 MARIBELL RIVERA MD Ot E03 .9 HYPOTHYROIDISM, UNSPECIFIED 11/07/2016 MARIBELL RIVERA MD Ot E11.40 TYPE 2 DIABETES MELLITUS WITH DIABETIC N 11/07/2016 MARIBELL RIVERA MD Ot E78.00 PURE HYPERCHOLESTEROLEMIA, UNSPECIFIED 11/07/2016 MARIBELL RIVERA MD Ot F32 .9 MAJOR DEPRESSIVE DISORDER, SINGLE EPISOD 11/07/2016 MARIBELL RIVERA MD Ot F41 .9 ANXIETY DISORDER, UNSPECIFIED 11/07/2016 MARIBELL RIVERA MD Ot G47.30 SLEEP APNEA, UNSPECIFIED 11/07/2016 MARIBELL RIVERA MD Ot G89.29 OTHER CHRONIC PAIN 11/07/2016 MARIBELL RIVERA MD Ot I10 ESSENTIAL (PRIMARY) HYPERTENSION 11/07/2016 MARIBELL RIVERA MD Ot I73 .9 PERIPHERAL VASCULAR DISEASE, UNSPECIFIED 11/07/2016 MARIBELL RIVERA MD Ot J44 .9 CHRONIC OBSTRUCTIVE PULMONARY DISEASE, U 11/07/2016 MARIBELL RIVERA MD Ot K21 .9 GASTRO-ESOPHAGEAL REFLUX DISEASE WITHOUT 11/07/2016 MARIBELL RIVERA MD Ot M19.90 UNSPECIFIED OSTEOARTHRITIS, UNSPECIFIED 11/07/2016 MARIBELL RIVERA MD Ot M54 .9 DORSALGIA, UNSPECIFIED 11/07/2016 MARIBELL RIVERA MD Ot R10.30 LOWER ABDOMINAL PAIN, UNSPECIFIED 11/07/2016 MARIBELL RIVERA MD Ot 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 11/07/2016 MARIBELL RIVERA MD Ot Z82.49 FAMILY HX OF ISCHEM HEART DIS AND OTH DI 11/07/2016 MARIBELL RIVERA MD Ot Z86.718 PERSONAL HISTORY OF OTHER VENOUS THROMBO 11/07/2016 MARIBELL RIVERA MD Ot Z87.19 PERSONAL HISTORY OF OTHER DISEASES OF TH 11/07/2016 MARIBELL RIVERA MD, Ot Z87.442 PERSONAL HISTORY OF URINARY CALCULI 11/07/2016 MARIBELL RIVERA MD, Ot Z90.49 ACQUIRED ABSENCE OF OTHER SPECIFIED PART 11/07/2016 MARIBELL RIVERA MD, Ot Z90.710 ACQUIRED ABSENCE OF BOTH CERVIX AND UTER 11/09/2016 MARIBELL RIVERA MD Ot R10 .9 UNSPECIFIED ABDOMINAL PAIN 11/09/2016 MARIBELL RIVERA MD Ot 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 11/09/2016 MARIBELL RIVERA MD, Ot Z87.442 PERSONAL HISTORY OF URINARY CALCULI 11/12/2016 RICARDO CHACKO [employer]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 Ot N 63 UNSPECIFIED LUMP IN BREAST 11/12/2016 MIKAL BRUNNER DO Ot E66. 9 OBESITY, UNSPECIFIED 11/12/2016 MIKAL BRUNNER DO Ot J44. 9 CHRONIC OBSTRUCTIVE PULMONARY DISEASE, U 11/12/2016 MIKAL BRUNNER DO Ot M32. 9 SYSTEMIC LUPUS ERYTHEMATOSUS, UNSPECIFIE 11/12/2016 MIKAL BRUNNER DO Ot N63 UNSPECIFIED LUMP IN BREAST 11/12/2016 MIKAL BRUNNER DO Ot R06. 02 SHORTNESS OF BREATH 11/12/2016 MIKAL BRUNNER DO Ot Z72. 0 TOBACCO USE 11/13/2016 MARIBELL RIVERA MD Ot E03 .9 HYPOTHYROIDISM, UNSPECIFIED 11/13/2016 MARIBELL RIVERA MD Ot E11.40 TYPE 2 DIABETES MELLITUS WITH DIABETIC N 11/13/2016 MARIBELL RIVERA MD Ot E78.00 PURE HYPERCHOLESTEROLEMIA, UNSPECIFIED 11/13/2016 MARIBELL RIVERA MD Ot F32 .9 MAJOR DEPRESSIVE DISORDER, SINGLE EPISOD 11/13/2016 MARIBELL RIVERA MD Ot F41 .9 ANXIETY DISORDER, UNSPECIFIED 11/13/2016 MARIBELL RIVERA MD Ot G47.30 SLEEP APNEA, UNSPECIFIED 11/13/2016 MARIBELL RIVERA MD Ot G89.29 OTHER CHRONIC PAIN 11/13/2016 MARIBELL RIVERA MD Ot I10 ESSENTIAL (PRIMARY) HYPERTENSION 11/13/2016 MARIBELL RIVERA MD Ot I73 .9 PERIPHERAL VASCULAR DISEASE, UNSPECIFIED 11/13/2016 MARIBELL RIVERA MD, Ot J44 .9 CHRONIC OBSTRUCTIVE PULMONARY DISEASE, U 11/13/2016 MARIBELL RIVERA MD, Ot K21 .9 GASTRO-ESOPHAGEAL REFLUX DISEASE WITHOUT 11/13/2016 MARIBELL RIVERA MD Ot M19.90 UNSPECIFIED OSTEOARTHRITIS, UNSPECIFIED 11/13/2016 MARIBELL RIVERA MD Ot M54 .9 DORSALGIA, UNSPECIFIED 11/13/2016 MARIBELL RIVERA MD Ot R10.30 LOWER ABDOMINAL PAIN, UNSPECIFIED 11/13/2016 MARIBELL RIVERA MD Ot 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 11/13/2016 MARIBELL RIVERA MD Ot Z82.49 FAMILY HX OF ISCHEM HEART DIS AND OTH DI 11/13/2016 MARIBELL RIVERA MD Ot Z86.718 PERSONAL HISTORY OF OTHER VENOUS THROMBO 11/13/2016 MARIBELL RIVERA MD Ot Z87.19 PERSONAL HISTORY OF OTHER DISEASES OF TH 11/13/2016 MARIBELL RIVERA MD Ot Z87.442 PERSONAL HISTORY OF URINARY CALCULI 11/13/2016 MARIBELL RIVERA MD Ot Z90.49 ACQUIRED ABSENCE OF OTHER SPECIFIED PART 11/13/2016 MARIBELL RIVERA MD Ot Z90.710 ACQUIRED ABSENCE OF BOTH CERVIX AND UTER 12/10/2016 JOSE GARZA Ot E03.9 HYPOTHYROIDISM, UNSPECIFIED 12/10/2016 JOSE AGRZA Ot E11.9 TYPE 2 DIABETES MELLITUS WITHOUT COMPLIC 12/10/2016 JOSE GARZA Ot F17.200 NICOTINE DEPENDENCE, UNSPECIFIED, UNCOMP 12/10/2016 JOSE GARZA Ot F32.9 MAJOR DEPRESSIVE DISORDER, SINGLE EPISOD 12/10/2016 GREYSON GARZAAN N Ot G47.33 OBSTRUCTIVE SLEEP APNEA (ADULT) (PEDIATR 12/10/2016 KAYLA JOSE N Ot I10 ESSENTIAL (PRIMARY) HYPERTENSION 12/10/2016 KAYLAJOSE N Ot J44.9 CHRONIC OBSTRUCTIVE PULMONARY DISEASE, U 12/10/2016 KAYLA JOSE N Ot M32.10 SYSTEMIC LUPUS ERYTHEMATOSUS, ORGAN OR S 12/10/2016 JOSE GARZA N Ot 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 12/10/2016 JOSE GARZA N Ot Z86.2 PRSNL HISTORY OF DIS OF THE BLD/BLD-FORM 12/10/2016 JOSE GARZA N Ot Z86.711 PERSONAL HISTORY OF PULMONARY EMBOLISM 12/10/2016 JOSE GARZA N Ot Z86.718 PERSONAL HISTORY OF OTHER VENOUS THROMBO 12/13/2016 JOSE GARZA Ot E03.9 HYPOTHYROIDISM, UNSPECIFIED 12/13/2016 JOSE GARZA N Ot E11.9 TYPE 2 DIABETES MELLITUS WITHOUT COMPLIC 12/13/2016 JOSE GARZA N Ot F17.200 NICOTINE DEPENDENCE, UNSPECIFIED, UNCOMP 12/13/2016 JOSE GARZA N Ot F32.9 MAJOR DEPRESSIVE DISORDER, SINGLE EPISOD 12/13/2016 JOSE GARZA N Ot G47.33 OBSTRUCTIVE SLEEP APNEA (ADULT) (PEDIATR 12/13/2016 KAYLA JOSE N Ot I10 ESSENTIAL (PRIMARY) HYPERTENSION 12/13/2016 JOSE GARZA N Ot J44.9 CHRONIC OBSTRUCTIVE PULMONARY DISEASE, U 12/13/2016 KAYLAJOSE N Ot M32.10 SYSTEMIC LUPUS ERYTHEMATOSUS, ORGAN OR S 12/13/2016 JOSE GARZA N Ot Z79.01 PRISON (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 OF ANTICOAGULANT 12/13/2016 JOSE GARZA N Ot Z86.2 PRSNL HISTORY OF DIS OF THE BLD/BLD-FORM 12/13/2016 JOSE GARZA N Ot Z86.711 PERSONAL HISTORY OF PULMONARY EMBOLISM 12/13/2016 JOSE GARZA N Ot Z86.718 PERSONAL HISTORY OF OTHER VENOUS THROMBO 12/15/2016 PATRICE PAREDES APRN Ot E03 .9 HYPOTHYROIDISM, UNSPECIFIED 12/15/2016 PATRICE PAREDES APRN Ot E11.40 TYPE 2 DIABETES MELLITUS WITH DIABETIC N 12/15/2016 PATRICE PAREDES APRN Ot E78.00 PURE HYPERCHOLESTEROLEMIA, UNSPECIFIED 12/15/2016 PATRICE PAREDES APRN Ot F32 .9 MAJOR DEPRESSIVE DISORDER, SINGLE EPISOD 12/15/2016 PATRICE PAREDES APRN Ot F41 .9 ANXIETY DISORDER, UNSPECIFIED 12/15/2016 PATRICE PAREDES APRN Ot G47.30 SLEEP APNEA, UNSPECIFIED 12/15/2016 PATRICE PAREDES APRN Ot I10 ESSENTIAL (PRIMARY) HYPERTENSION 12/15/2016 PATRICE PAREDES APRN Ot J44 .9 CHRONIC OBSTRUCTIVE PULMONARY DISEASE, U 12/15/2016 PATRICE PAREDES APRN Ot K21 .9 GASTRO-ESOPHAGEAL REFLUX DISEASE WITHOUT 12/15/2016 PATRICE PAREDES APRN Ot R10.31 RIGHT LOWER QUADRANT PAIN 12/15/2016 PATRICE PAREDES APRN Ot R10.32 LEFT LOWER QUADRANT PAIN 12/15/2016 PATRICE PAREDES APRN Ot 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 12/15/2016 PATRICE PAREDES [...] AND UTER 12/18/2016 PATRICE PAREDES APRN Ot E03 .9 HYPOTHYROIDISM, UNSPECIFIED 12/18/2016 PATRICE PAREDES APRN Ot E11.40 TYPE 2 DIABETES MELLITUS WITH DIABETIC N 12/18/2016 PATRICE PAREDES APRN Ot E78.00 PURE HYPERCHOLESTEROLEMIA, UNSPECIFIED 12/18/2016 PATRICE PAREDES APRN Ot F32 .9 MAJOR DEPRESSIVE DISORDER, SINGLE EPISOD 12/18/2016 PATRICE PAREDES APRN Ot F41 .9 ANXIETY DISORDER, UNSPECIFIED 12/18/2016 PATRICE PAREDES APRN Ot G47.30 SLEEP APNEA, UNSPECIFIED 12/18/2016 PATRICE PAREDES APRN Ot I10 ESSENTIAL (PRIMARY) HYPERTENSION 12/18/2016 PATRICE PAREDES APRN Ot J44 .9 CHRONIC OBSTRUCTIVE PULMONARY DISEASE, U 12/18/2016 PATRICE PAREDES APRN Ot K21 .9 GASTRO-ESOPHAGEAL REFLUX DISEASE WITHOUT 12/18/2016 PATRICE PAREDES APRN Ot R10.31 RIGHT LOWER QUADRANT PAIN 12/18/2016 PATRICE PAREDES APRN Ot R10.32 LEFT LOWER QUADRANT PAIN 12/18/2016 PATRICE PAREDES APRN Ot Z79.01 PRISON (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 OF ANTICOAGULANT 12/18/2016 PATRICE PAREDES APRN Ot Z82.49 FAMILY HX OF ISCHEM HEART DIS AND OTH DI 12/18/2016 PATRIEC PAREDES APRN Ot Z86.718 PERSONAL HISTORY OF [...] SYSTEMIC LUPUS ERYTHEMATOSUS, ORGAN OR S 12/27/2016 KAYLA JOSE N Ot Z79.01 PRISON (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 OF ANTICOAGULANT 12/27/2016 KAYLA, JOSE Fleming Ot Z86.2 PRSNL HISTORY OF DIS OF THE BLD/BLD-FORM 12/27/2016 KAYLAJOSE Ot Z86.711 PERSONAL HISTORY OF PULMONARY EMBOLISM 12/27/2016 KAYLAJOSE Ot Z86.718 PERSONAL HISTORY OF OTHER VENOUS THROMBO 12/28/2016 KAYLAJOSE Ot E03.9 HYPOTHYROIDISM, UNSPECIFIED 12/28/2016 KAYLAJOSE Ot E11.9 TYPE 2 DIABETES MELLITUS WITHOUT COMPLIC 12/28/2016 JOSE GARZA Ot F17.200 NICOTINE DEPENDENCE, UNSPECIFIED, UNCOMP 12/28/2016 KAYLAJOSE Ot F32.9 MAJOR DEPRESSIVE DISORDER, SINGLE EPISOD 12/28/2016 KAYLAJOSE Ot G47.33 OBSTRUCTIVE SLEEP APNEA (ADULT) (PEDIATR 12/28/2016 JOSE GARZA Ot I10 ESSENTIAL (PRIMARY) HYPERTENSION 12/28/2016 KAYLAJOSE Ot J44.9 CHRONIC OBSTRUCTIVE PULMONARY DISEASE, U 12/28/2016 KAYLAJOSE Ot M32.10 SYSTEMIC LUPUS ERYTHEMATOSUS, ORGAN OR S 12/28/2016 KAYLAJOSE Ot 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 12/28/2016 KAYLAJOSE Ot Z86.2 PRSNL HISTORY OF DIS OF THE BLD/BLD-FORM 12/28/2016 KAYLAJOSE Ot Z86.711 PERSONAL HISTORY OF PULMONARY EMBOLISM 12/28/2016 JOSE GARZA Ot Z86.718 PERSONAL HISTORY OF OTHER VENOUS THROMBO 01/11/2017 MANA DUENAS PSYCHOLOGIST EXPERIMENTAL Ot J44.9 CHRONIC OBSTRUCTIVE PULMONARY DISEASE, U 01/11/2017 MANA DUENAS PSYCHOLOGIST EXPERIMENTAL Ot J96.20 ACUTE AND CHR RESP FAILURE, UNSP W HYPOX 01/11/2017 MANA DUENAS PSYCHOLOGIST EXPERIMENTAL Ot Z72.0 TOBACCO USE 01/12/2017 MANA DUENAS PSYCHOLOGIST EXPERIMENTAL Ot J44.9 CHRONIC OBSTRUCTIVE PULMONARY DISEASE, U 01/12/2017 MANA DUENAS PSYCHOLOGIST EXPERIMENTAL Ot J96.20 ACUTE AND CHR RESP FAILURE, UNSP W HYPOX 01/12/2017 YULISSAGISELLEMANA Indra PSYCHOLOGIST EXPERIMENTAL Ot Z72.0 TOBACCO USE 02/01/2017 YULISSAGISELLE ORTEGAINE Indra PSYCHOLOGIST EXPERIMENTAL Ot J44.9 CHRONIC OBSTRUCTIVE PULMONARY DISEASE, U 02/01/2017 YULISSA MANA E PSYCHOLOGIST EXPERIMENTAL Ot J96.20 ACUTE AND CHR RESP FAILURE, UNSP W HYPOX 02/01/2017 YULISSAGISELLE ORTEGAINE Indra PSYCHOLOGIST EXPERIMENTAL Ot Z72.0 TOBACCO USE 02/11/2017 YULISSAGISELLEMANA Indra PSYCHOLOGIST EXPERIMENTAL Ot J44.9 CHRONIC OBSTRUCTIVE PULMONARY DISEASE, U 02/11/2017 YULISSA MANA E PSYCHOLOGIST EXPERIMENTAL Ot J96.20 ACUTE AND CHR RESP FAILURE, UNSP W HYPOX 02/11/2017 YULISSAGISELLE ORTEGAINE E PSYCHOLOGIST EXPERIMENTAL Ot Z72.0 TOBACCO USE 04/05/2017 JOSE GARZA Ot D50.0 IRON DEFICIENCY ANEMIA SECONDARY TO BLOO 04/05/2017 JOSE GARZA N Ot 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 04/05/2017 JOSE GARZA Ot E03.9 HYPOTHYROIDISM, UNSPECIFIED 04/05/2017 JOSE GARZA Ot E11.9 TYPE 2 DIABETES MELLITUS WITHOUT COMPLIC 04/05/2017 JOSE GARZA Ot F17.200 NICOTINE DEPENDENCE, UNSPECIFIED, UNCOMP 04/05/2017 JOSE GARZA Ot F32.9 MAJOR DEPRESSIVE DISORDER, SINGLE EPISOD 04/05/2017 JOSE GARZA Ot G47.33 OBSTRUCTIVE SLEEP APNEA (ADULT) (PEDIATR 04/05/2017 JOSE GARZA Ot I10 ESSENTIAL (PRIMARY) HYPERTENSION 04/05/2017 JOSE GARZA Ot J44.9 CHRONIC OBSTRUCTIVE PULMONARY DISEASE, U 04/05/2017 JOSE GARZA Ot 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 04/05/2017 JOSE GARZA Ot Z86.2 PRSNL HISTORY OF DIS OF THE BLD/BLD-FORM 04/05/2017 JOSE GARZA Ot Z86.711 PERSONAL HISTORY OF PULMONARY EMBOLISM 04/05/2017 JOSE GARZA Ot Z86.718 PERSONAL HISTORY OF OTHER VENOUS THROMBO 05/10/2017 JOSE GARZA Ot D50.0 IRON DEFICIENCY ANEMIA SECONDARY TO BLOO 05/10/2017 JOSE GARZA N Ot 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 05/10/2017 KAYLA JOSE N Ot E03.9 HYPOTHYROIDISM, UNSPECIFIED 05/10/2017 KAYLAJOSE N Ot E11.9 TYPE 2 DIABETES MELLITUS WITHOUT COMPLIC 05/10/2017 KAYLA JOSE N Ot F17.200 NICOTINE DEPENDENCE, UNSPECIFIED, UNCOMP 05/10/2017 KAYLA JOSE N Ot F32.9 MAJOR DEPRESSIVE DISORDER, SINGLE EPISOD 05/10/2017 KAYLAJOSE N Ot G47.33 OBSTRUCTIVE SLEEP APNEA (ADULT) (PEDIATR 05/10/2017 KAYLAJOSE N Ot I10 ESSENTIAL (PRIMARY) HYPERTENSION 05/10/2017 JOSE GARZA N Ot J44.9 CHRONIC OBSTRUCTIVE PULMONARY DISEASE, U 05/10/2017 JOSE GARZA N Ot 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 05/10/2017 JOSE GARZA N Ot Z86.2 PRSNL HISTORY OF DIS OF THE BLD/BLD-FORM 05/10/2017 JOSE GARZA Ot Z86.711 PERSONAL HISTORY OF PULMONARY EMBOLISM 05/10/2017 JOSE GARZA N Ot Z86.718 PERSONAL HISTORY OF OTHER VENOUS THROMBO 05/20/2017 JOSE GARZA Ot D50.0 IRON DEFICIENCY ANEMIA SECONDARY TO BLOO 05/20/2017 JOSE GARZA N Ot 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 05/20/2017 KAYLAJOSE N Ot E03.9 HYPOTHYROIDISM, UNSPECIFIED 05/20/2017 KAYLAJOSE N Ot E11.9 TYPE 2 DIABETES MELLITUS WITHOUT COMPLIC 05/20/2017 JOSE GARZA Ot F17.200 NICOTINE DEPENDENCE, UNSPECIFIED, UNCOMP 05/20/2017 KAYLAJOSE N Ot F32.9 MAJOR DEPRESSIVE DISORDER, SINGLE EPISOD 05/20/2017 KAYLAJOES N Ot G47.33 OBSTRUCTIVE SLEEP APNEA (ADULT) (PEDIATR 05/20/2017 JOSE GARZA N Ot I10 ESSENTIAL (PRIMARY) HYPERTENSION 05/20/2017 JOSE GARZA N Ot J44.9 CHRONIC OBSTRUCTIVE PULMONARY DISEASE, U 05/20/2017 JOSE GARZA N Ot Z79.01 PRISON (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 OF ANTICOAGULANT 05/20/2017 JOSE GARZA N Ot Z86.2 PRSNL HISTORY OF DIS OF THE BLD/BLD-FORM 05/20/2017 JOSE GARZA Ot Z86.711 PERSONAL HISTORY OF PULMONARY EMBOLISM 05/20/2017 JOSE GARZA Ot Z86.718 PERSONAL HISTORY OF OTHER VENOUS THROMBO 06/07/2017 EVERETT ERNST Ot E03.9 HYPOTHYROIDISM, UNSPECIFIED 06/07/2017 SUJATA 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 Ot E11.40 TYPE 2 DIABETES MELLITUS WITH DIABETIC N 06/07/2017 EVERETT ERNSTP Ot E78.00 PURE HYPERCHOLESTEROLEMIA, UNSPECIFIED 06/07/2017 EVERETT ERNST 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 Ot F17.210 NICOTINE DEPENDENCE, CIGARETTES, UNCOMPL 06/07/2017 EVERETT ERNSTP Ot F32.9 MAJOR DEPRESSIVE DISORDER, SINGLE EPISOD 06/07/2017 EVERETT ERNSTP Ot F41.9 ANXIETY DISORDER, UNSPECIFIED 06/07/2017 SUJATA 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 Ot I10 ESSENTIAL (PRIMARY) HYPERTENSION 06/07/2017 EVERETT ERNSTP Ot J44.9 CHRONIC OBSTRUCTIVE PULMONARY DISEASE, U 06/07/2017 EVERETT ERNSTP Ot K21.9 GASTRO-ESOPHAGEAL REFLUX DISEASE WITHOUT 06/07/2017 EVERETT ERNST 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 Ot R07.81 PLEURODYNIA 06/07/2017 EVERETT ERNST 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 Ot S20.211A CONTUSION OF RIGHT FRONT WALL OF THORAX, 06/07/2017 EVERETT ERNSTP Ot W10.2XXA FALL (ON)(FROM) INCLINE, INITIAL ENCOUNT 06/07/2017 EVERETT ERNSTP Ot Y92.009 [facility] PL[facility] IN [facility] (PR[facility] 06/07/2017 EVERETT ERNSTP Ot Z86.711 PERSONAL HISTORY OF PULMONARY EMBOLISM 06/07/2017 EVERETT ERNSTP Ot Z86.718 PERSONAL HISTORY OF OTHER VENOUS THROMBO 06/07/2017 EVERETT ERNSTP Ot Z87.442 PERSONAL HISTORY OF URINARY CALCULI 06/07/2017 EVERETT ERNST 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 Ot Z88.1 ALLERGY STATUS TO OTHER ANTIBIOTIC AGENT 06/07/2017 EVERETT ERNST 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 Ot Z88.5 ALLERGY STATUS TO NARCOTIC AGENT STATUS 06/07/2017 EVERETT ERNST 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 Ot Z88.6 ALLERGY STATUS TO ANALGESIC AGENT STATUS 06/07/2017 SUJATA, EVERETT 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 Ot Z88.8 ALLERGY STATUS TO [facility] DRUG/MEDS/BIOL SUB 06/07/2017 SUJATAEVERETT BurrellP Ot Z90.49 ACQUIRED ABSENCE OF OTHER SPECIFIED PART 06/07/2017 SUJATAEVERETT BurrellP Ot Z90.710 ACQUIRED ABSENCE OF BOTH CERVIX AND UTER 06/07/2017 SUJATAEVERETT BurrellP Ot Z99.81 DEPENDENCE ON SUPPLEMENTAL OXYGEN 06/13/2017 SUJATAEVERETT BurrellP Ot E03.9 HYPOTHYROIDISM, UNSPECIFIED 06/13/2017 SUJATAEVERETT BurrellP Ot E11.40 TYPE 2 DIABETES MELLITUS WITH DIABETIC N 06/13/2017 SUJATAEVERETT BurrellP Ot E78.00 PURE HYPERCHOLESTEROLEMIA, UNSPECIFIED 06/13/2017 SUJATAEVERETT BurrellP Ot F17.210 NICOTINE DEPENDENCE, CIGARETTES, UNCOMPL 06/13/2017 EVERETT ERNSTP Ot F32.9 MAJOR DEPRESSIVE DISORDER, SINGLE EPISOD 06/13/2017 SUJATAEVERETT BurrellP Ot F41.9 ANXIETY DISORDER, UNSPECIFIED 06/13/2017 EVERETT ERNSTP Ot I10 ESSENTIAL (PRIMARY) HYPERTENSION 06/13/2017 EVERETT ERNSTP Ot J44.9 CHRONIC OBSTRUCTIVE PULMONARY DISEASE, U 06/13/2017 EVERETT ERNSTP Ot K21.9 GASTRO-ESOPHAGEAL REFLUX DISEASE WITHOUT 06/13/2017 EVERETT ERNSTP Ot R07.81 PLEURODYNIA 06/13/2017 EVERETT ERNST 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 Ot S20.211A CONTUSION OF RIGHT FRONT WALL OF THORAX, 06/13/2017 EVERETT ERNSTP Ot W10.2XXA FALL (ON)(FROM) INCLINE, INITIAL ENCOUNT 06/13/2017 EVERETT ERNSTP Ot Y92.009 [facility] IN [facility] 06/13/2017 EVERETT ERNSTP Ot Z86.711 PERSONAL HISTORY OF PULMONARY EMBOLISM 06/13/2017 EVERETT ERNSTP Ot Z86.718 PERSONAL HISTORY OF OTHER VENOUS THROMBO 06/13/2017 EVERETT ERNSTP Ot Z87.442 PERSONAL HISTORY OF URINARY CALCULI 06/13/2017 EVERETT ERNST 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 Ot Z88.1 ALLERGY STATUS TO OTHER ANTIBIOTIC AGENT 06/13/2017 EVERETT ERNSTP Ot Z88.5 ALLERGY STATUS TO NARCOTIC AGENT STATUS 06/13/2017 EVERETT ERNST Ot Z88.6 ALLERGY STATUS TO ANALGESIC AGENT STATUS 06/13/2017 EVERETT ERNST Ot Z88.8 ALLERGY STATUS TO OTH DRUG/MEDS/BIOL SUB 06/13/2017 EVERETT ERNST Ot Z90.49 ACQUIRED ABSENCE OF OTHER SPECIFIED PART 06/13/2017 EVERETT ERNST Ot Z90.710 ACQUIRED ABSENCE OF BOTH CERVIX AND UTER 06/13/2017 EVERETT ERNST Ot Z99.81 DEPENDENCE ON SUPPLEMENTAL OXYGEN 06/29/2017 KAYLAJOSE Ot D50.0 IRON DEFICIENCY ANEMIA SECONDARY TO BLOO 06/29/2017 JOSE GARZA Ot 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 06/29/2017 JOSE GARZA Ot E03.9 HYPOTHYROIDISM, UNSPECIFIED 06/29/2017 JOSE GARZA Ot E11.9 TYPE 2 DIABETES MELLITUS WITHOUT COMPLIC 06/29/2017 JOSE GARZA Ot F17.200 NICOTINE DEPENDENCE, UNSPECIFIED, UNCOMP 06/29/2017 JOSE GARZA Ot F32.9 MAJOR DEPRESSIVE DISORDER, SINGLE EPISOD 06/29/2017 JOSE GARZA Ot G47.33 OBSTRUCTIVE SLEEP APNEA (ADULT) (PEDIATR 06/29/2017 JOSE GARZA Ot I10 ESSENTIAL (PRIMARY) HYPERTENSION 06/29/2017 JOSE GARZA Ot J44.9 CHRONIC OBSTRUCTIVE PULMONARY DISEASE, U 06/29/2017 JOSE GARZA Ot 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 06/29/2017 JOSE GARZA Ot Z86.2 PRSNL HISTORY OF DIS OF THE BLD/BLD-FORM 06/29/2017 JOSE GARZA Ot Z86.711 PERSONAL HISTORY OF PULMONARY EMBOLISM 06/29/2017 JSOE GARZA Ot Z86.718 PERSONAL HISTORY OF OTHER VENOUS THROMBO 07/27/2017 Ot 286.9 COAG ULAT DEFECT NEC/NOS 07/27/2017 Ot V72.84 EXA M PRE- OPERATIVE NOS 07/27/2017 Ot 453.41 ACU TE VENOUS EMBOLISM THROMBOSIS DEEP 07/27/2017 MONICA POLLARD, MAI Alexandra Ot 553.21 INCISIONAL HERNIA 07/27/2017 MONICA POLLARD, MAI Alexandra Ot V72.84 EXAM PRE-OPERATIVE NOS 07/27/2017 MONICA POLLARD, MAI Alexandra Ot V74.8 SCREEN-BACTERIAL DIS NEC 07/27/2017 MONICO VALLE MD Ot 244.9 HYPOTHYROIDISM NOS 07/27/2017 MONICO VALLE MD Ot 250.00 DIAB WALLY WO COMPL, TYPE II OR UNSPEC TY 07/27/2017 MONICO VALLE MD Ot 305.1 TOBACCO USE DISORDER 07/27/2017 MONICO VALLE MD Ot 311 DEPRESSIVE DISORDER NEC 07/27/2017 MONICO VALLE MD Ot 327.23 OBSTRUCTIVE SLEEP APNEA (ADULT) (PEDIATR 07/27/2017 MONICO VALLE MD Ot 401.9 HYPERTENSION NOS 07/27/2017 MONICO VALLE MD Ot 416.2 CHRONIC PULMONARY EMBOLISM 07/27/2017 MONICO VALLE MD Ot 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 9 ANEMIA NOS 07/27/2017 MIKAL BRUNNER DO Ot 305. 1 TOBACCO USE DISORDER 07/27/2017 MIKAL BRUNNER DO Ot 327. 23 OBSTRUCTIVE SLEEP APNEA (ADULT) (PEDIATR 07/27/2017 MIKAL BRUNNER DO Ot 493. 20 CHRONIC OBSTRUCTIVE ASTHMA, NOS 07/27/2017 MIKAL BRUNNER DO Ot 710. 0 SYST LUPUS ERYTHEMATOSIS 07/27/2017 MIKAL BRUNNER DO Ot 716. 90 ARTHROPATHY NOS-UNSPEC 07/27/2017 MIKAL BRUNNER DO Ot 786. 05 SHORTNESS OF BREATH 07/27/2017 RADHA POLLARD, HAZEL Fleming Ot 728.85 SPASM OF MUSCLE 07/27/2017 GABY POLLARD, CANDE Gibbs Ot 724. 2 LUMBAGO 07/27/2017 RICARDO CHACKO 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 Ot 280.9 IRON DEFIC ANEMIA NOS 07/27/2017 RICARDO CHACKO 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 Ot 585.3 CHRONIC KIDNEY DISEASE, STAGE III (MODER 07/27/2017 RICARDO CHACKO 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 Ot 795.79 OTH AND UNSPEC NONSPECIFIC IMMUNOLOGICAL 07/27/2017 RICARDO CHACKO 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 Ot V12.51 HX-VENOUS THROMBOSIS EMBOLISM 07/27/2017 RICARDO CHACKO 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 Ot V12.55 PERSONAL HISTORY OF PULMONARY EMBOLISM 07/27/2017 RICARDO CHACKOP Ot V58.69 OTH MED,LT,CURRENT USE 07/27/2017 RADHA POLLARD, HAZEL Fleming Ot 790 .5 ABN SERUM ENZY LEVEL NEC 07/27/2017 RADHA POLLARD, HAZEL Fleming Ot 599 .0 URIN TRACT INFECTION NOS 07/27/2017 MONICA POLLARD, MAI S Ot 285.9 ANEMIA NOS 07/27/2017 DANIEL PORTER DO Ot M51.37 OTHER INTERVERTEBRAL DISC DEGENERATION, 07/27/2017 RICARDO CHACKOP Ot E03.9 HYPOTHYROIDISM, UNSPECIFIED 07/27/2017 RICARDO CHACKO 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 Ot E11.9 TYPE 2 DIABETES MELLITUS WITHOUT COMPLIC 07/27/2017 RICARDO CHACKOP Ot F17.200 NICOTINE DEPENDENCE, UNSPECIFIED, UNCOMP 07/27/2017 RICARDO CHACKOP Ot F32.9 MAJOR DEPRESSIVE DISORDER, SINGLE EPISOD 07/27/2017 RICARDO CHACKO 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 Ot G47.33 OBSTRUCTIVE SLEEP APNEA (ADULT) (PEDIATR 07/27/2017 RICARDO CHACKO 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 Ot I 10 ESSENTIAL (PRIMARY) HYPERTENSION 07/27/2017 RICARDO CHACKO 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 Ot J44.9 CHRONIC OBSTRUCTIVE PULMONARY DISEASE, U 07/27/2017 RICARDO CHACKO 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 Ot M32.10 SYSTEMIC LUPUS ERYTHEMATOSUS, ORGAN OR S 07/27/2017 RICARDO CHACKO 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 Ot 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 07/27/2017 RICARDO CHACKO 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 Ot Z86.2 PRSNL HISTORY OF DIS OF THE BLD/BLD-FORM 07/27/2017 RICARDO CHACKO 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 Ot Z86.711 PERSONAL HISTORY OF PULMONARY EMBOLISM 07/27/2017 RICARDO CHACKO 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 Ot Z86.718 PERSONAL HISTORY OF OTHER VENOUS THROMBO 07/27/2017 MILEY SANCHEZ 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 Ot M46.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, THORACIC REGION 07/27/2017 JOSE GARZA Ot D68.8 OTHER SPECIFIED COAGULATION DEFECTS 07/27/2017 RICARDO CHACKO 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 Ot N 63 UNSPECIFIED LUMP IN BREAST 07/27/2017 MIKAL BRUNNER DO Ot E66. 9 OBESITY, UNSPECIFIED 07/27/2017 MIKAL BRUNNER DO Ot J44. 9 CHRONIC OBSTRUCTIVE PULMONARY DISEASE, U 07/27/2017 MIKAL BRUNNER DO Ot M32. 9 SYSTEMIC LUPUS ERYTHEMATOSUS, UNSPECIFIE 07/27/2017 MIKAL BRUNNER DO Ot N63 UNSPECIFIED LUMP IN BREAST 07/27/2017 MIKAL BRUNNER DO Ot R06. 02 SHORTNESS OF BREATH 07/27/2017 MIKAL BRUNNER DO Ot Z72. 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 07/27/2017 JOSE GARZA Ot E03.9 HYPOTHYROIDISM, UNSPECIFIED 07/27/2017 JOSE GARZA Ot E11.9 TYPE 2 DIABETES MELLITUS WITHOUT COMPLIC 07/27/2017 JOSE GARZA Ot F17.200 NICOTINE DEPENDENCE, UNSPECIFIED, UNCOMP 07/27/2017 JOSE GARZA Ot F32.9 MAJOR DEPRESSIVE DISORDER, SINGLE EPISOD 07/27/2017 JOSE GARZA Ot G47.33 OBSTRUCTIVE SLEEP APNEA (ADULT) (PEDIATR 07/27/2017 JOSE GARZA Ot I10 ESSENTIAL (PRIMARY) HYPERTENSION 07/27/2017 JOSE GARZA Ot J44.9 CHRONIC OBSTRUCTIVE PULMONARY DISEASE, U 07/27/2017 JOSE GARZA Ot 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 07/27/2017 JOSE GARZA Ot Z86.2 PRSNL HISTORY OF DIS OF THE BLD/BLD-FORM 07/27/2017 JOSE GARZA Ot Z86.711 PERSONAL HISTORY OF PULMONARY EMBOLISM 07/27/2017 JOSE GARZA Ot Z86.718 PERSONAL HISTORY OF OTHER VENOUS THROMBO 07/28/2017 MAI EDWARDS MD Ot F17.210 NICOTINE DEPENDENCE, CIGARETTES, UNCOMPL 07/28/2017 MAI EDWARDS MD Ot G62. 9 POLYNEUROPATHY, UNSPECIFIED 07/28/2017 MAI EDWARDS MD Ot G89. 4 CHRONIC PAIN SYNDROME 07/28/2017 MAI EDWARDS MD, Ot J44. 9 CHRONIC OBSTRUCTIVE PULMONARY DISEASE, U 07/28/2017 MAI EDWARDS MD Ot M25.519 PAIN IN UNSPECIFIED SHOULDER 07/28/2017 MAI EDWARDS MD Ot R10. 9 UNSPECIFIED ABDOMINAL PAIN 07/28/2017 MAI EDWARDS MD Ot Z79.891 PRISON (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 OF OPIATE ANALGE 07/28/2017 MAI EDWARDS MD, Ot F17.210 NICOTINE DEPENDENCE, CIGARETTES, UNCOMPL 07/28/2017 MAI EDWARDS MD, Ot G62. 9 POLYNEUROPATHY, UNSPECIFIED 07/28/2017 MAI EDWARDS MD Ot G89. 4 CHRONIC PAIN SYNDROME 07/28/2017 MAI EDWARDS MD, Ot J44. 9 CHRONIC OBSTRUCTIVE PULMONARY DISEASE, U 07/28/2017 MAI EDWARDS MD Ot M25.519 PAIN IN UNSPECIFIED SHOULDER 07/28/2017 MAI EDWARDS MD Ot R10. 9 UNSPECIFIED ABDOMINAL PAIN 07/28/2017 MAI EDWARDS MD Ot Z79.891 PRISON (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 OF OPIATE ANALGE 07/28/2017 Ot 286.9 COAG ULAT DEFECT NEC/NOS 07/28/2017 Ot V72.84 EXA M PRE- OPERATIVE NOS 07/28/2017 Ot 453.41 ACU TE VENOUS EMBOLISM THROMBOSIS DEEP 07/28/2017 MAI ANDERSON MD Ot 553.21 INCISIONAL HERNIA 07/28/2017 MAI ANDERSON MD Ot V72.84 EXAM PRE-OPERATIVE NOS 07/28/2017 MAI ANDERSON MD Ot V74.8 SCREEN-BACTERIAL DIS NEC 07/28/2017 MONICO VALLE MD Ot 244.9 HYPOTHYROIDISM NOS 07/28/2017 MONICO VALLE MD Ot 250.00 DIAB WALLY WO COMPL, TYPE II OR UNSPEC TY 07/28/2017 MONICO VALLE MD Ot 305.1 TOBACCO USE DISORDER 07/28/2017 MONICO VALLE MD Ot 311 DEPRESSIVE DISORDER NEC 07/28/2017 MONICO VALLE MD Ot 327.23 OBSTRUCTIVE SLEEP APNEA (ADULT) (PEDIATR 07/28/2017 MONICO VALLE MD Ot 401.9 HYPERTENSION NOS 07/28/2017 MONICO VALLE MD Ot 416.2 CHRONIC PULMONARY EMBOLISM 07/28/2017 MONICO VALLE MD Ot 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 07/28/2017 MONICO VALLE MD Ot 496 CHR AIRWAY OBSTRUCT NEC 07/28/2017 MONICO VALLE MD Ot 710.0 SYST LUPUS ERYTHEMATOSIS 07/28/2017 MONICO VALLE MD Ot V58.61 ANTICOAGULANTS,LT,CURRENT USE 07/28/2017 MONICO VALLE MD Ot V58.69 OTH MED,LT,CURRENT USE 07/28/2017 MIKAL BRUNNER DO Ot 285. 9 ANEMIA NOS 07/28/2017 MIKAL BRUNNER DO Ot 305. 1 TOBACCO USE DISORDER 07/28/2017 MIKAL BRUNNER DO Ot 327. 23 OBSTRUCTIVE SLEEP APNEA (ADULT) (PEDIATR 07/28/2017 MIKAL BRUNNER DO Ot 493. 20 CHRONIC OBSTRUCTIVE ASTHMA, NOS 07/28/2017 MIKAL BRUNNER DO Ot 710. 0 SYST LUPUS ERYTHEMATOSIS 07/28/2017 MIKAL BRUNNER DO Ot 716. 90 ARTHROPATHY NOS-UNSPEC 07/28/2017 MIKAL BRUNNER DO Ot 786. 05 SHORTNESS OF BREATH 07/28/2017 RADHA POLLARD, HAZEL Fleming Ot 728.85 SPASM OF MUSCLE 07/28/2017 GABY POLLARD, CANDE Gibbs Ot 724. 2 LUMBAGO 07/28/2017 RICARDO CHACKOP Ot 280.9 IRON DEFIC ANEMIA NOS 07/28/2017 RICARDO CHACKO 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 Ot 585.3 CHRONIC KIDNEY DISEASE, STAGE III (MODER 07/28/2017 RICARDO CHACKOP Ot 795.79 OTH AND UNSPEC NONSPECIFIC IMMUNOLOGICAL 07/28/2017 RICARDO CHACKOP Ot V12.51 HX-VENOUS THROMBOSIS EMBOLISM 07/28/2017 RICARDO HCACKOP Ot V12.55 PERSONAL HISTORY OF PULMONARY EMBOLISM 07/28/2017 RICARDO CHACKO Ot V58.69 OTH MED,LT,CURRENT USE 07/28/2017 RADHA POLLARD, HAZEL Fleming Ot 790 .5 ABN SERUM ENZY LEVEL NEC 07/28/2017 RADHA POLLARD, HAZEL Fleming Ot 599 .0 URIN TRACT INFECTION NOS 07/28/2017 MONICA POLLARD, MAI S Ot 285.9 ANEMIA NOS 07/28/2017 DANIEL PORTER DO Ot M51.37 OTHER INTERVERTEBRAL DISC DEGENERATION, 07/28/2017 RICARDO CHACKO 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 Ot E03.9 HYPOTHYROIDISM, UNSPECIFIED 07/28/2017 RICARDO CHACKO 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 Ot E11.9 TYPE 2 DIABETES MELLITUS WITHOUT COMPLIC 07/28/2017 RICARDO CHACKO 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 Ot F17.200 NICOTINE DEPENDENCE, UNSPECIFIED, UNCOMP 07/28/2017 RICARDO CHACKO CAR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 Ot F32.9 MAJOR DEPRESSIVE DISORDER, SINGLE EPISOD 07/28/2017 RICARDO CHACKO 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 Ot G47.33 OBSTRUCTIVE SLEEP APNEA (ADULT) (PEDIATR 07/28/2017 RICARDO CHACKO 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 Ot I 10 ESSENTIAL (PRIMARY) HYPERTENSION 07/28/2017 RICARDO CHACKOP Ot J44.9 CHRONIC OBSTRUCTIVE PULMONARY DISEASE, U 07/28/2017 RICARDO CHACKO [employer]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 Ot M32.10 SYSTEMIC LUPUS ERYTHEMATOSUS, ORGAN OR S 07/28/2017 RICARDO CHACKO CAR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 Ot Z79.01 PRISON (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 OF ANTICOAGULANT 07/28/2017 RICARDO CHACKO CAR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 Ot Z86.2 PRSNL HISTORY OF DIS OF THE BLD/BLD-FORM 07/28/2017 RICARDO CHACKO CAR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 Ot Z86.711 PERSONAL HISTORY OF PULMONARY EMBOLISM 07/28/2017 RICARDO CHACKO [employer]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 Ot Z86.718 PERSONAL HISTORY OF OTHER VENOUS THROMBO 07/28/2017 MILEY SANCHEZP Ot M46.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, THORACIC REGION 07/28/2017 JOSE GARZA Ot D68.8 OTHER SPECIFIED COAGULATION DEFECTS 07/28/2017 RICARDO CHACKO 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 Ot N 63 UNSPECIFIED LUMP IN BREAST 07/28/2017 MIKAL BRUNNER DO Ot E66. 9 OBESITY, UNSPECIFIED 07/28/2017 MIKAL BRUNNER DO Ot J44. 9 CHRONIC OBSTRUCTIVE PULMONARY DISEASE, U 07/28/2017 MIKAL BRUNNER DO Ot M32. 9 SYSTEMIC LUPUS ERYTHEMATOSUS, UNSPECIFIE 07/28/2017 MIKAL BRUNNER DO Ot N63 UNSPECIFIED LUMP IN BREAST 07/28/2017 MIKAL BRUNNER DO Ot R06. 02 SHORTNESS OF BREATH 07/28/2017 MIKAL BRUNNER DO Ot Z72. 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 07/28/2017 JOSE GARZA Ot E03.9 HYPOTHYROIDISM, UNSPECIFIED 07/28/2017 JOSE GARZA Ot E11.9 TYPE 2 DIABETES MELLITUS WITHOUT COMPLIC 07/28/2017 JOSE GARZA Ot F17.200 NICOTINE DEPENDENCE, UNSPECIFIED, UNCOMP 07/28/2017 JOSE GARZA Ot F32.9 MAJOR DEPRESSIVE DISORDER, SINGLE EPISOD 07/28/2017 JOSE GARZA Ot G47.33 OBSTRUCTIVE SLEEP APNEA (ADULT) (PEDIATR 07/28/2017 JOSE GARZA Ot I10 ESSENTIAL (PRIMARY) HYPERTENSION 07/28/2017 JOSE GARZA Ot J44.9 CHRONIC OBSTRUCTIVE PULMONARY DISEASE, U 07/28/2017 JOSE GARZA Ot Z79.01 PRISON (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 OF ANTICOAGULANT 07/28/2017 JOSE GARZA Ot Z86.2 PRSNL HISTORY OF DIS OF THE BLD/BLD-FORM 07/28/2017 JOSE GARZA Ot Z86.711 PERSONAL HISTORY OF PULMONARY EMBOLISM 07/28/2017 JOSE GARZA Ot Z86.718 PERSONAL HISTORY OF OTHER VENOUS THROMBO 07/28/2017 JERRY POLLARD, MAI Vieira Ot F17.210 NICOTINE DEPENDENCE, CIGARETTES, UNCOMPL 07/28/2017 MAI EDWARDS MD Ot G62. 9 POLYNEUROPATHY, UNSPECIFIED 07/28/2017 MAI EDWARDS MD Ot G89. 4 CHRONIC PAIN SYNDROME 07/28/2017 MAI EDWARDS MD, Ot J44. 9 CHRONIC OBSTRUCTIVE PULMONARY DISEASE, U 07/28/2017 MAI EDWARDS MD Ot M25.519 PAIN IN UNSPECIFIED SHOULDER 07/28/2017 MAI EDWARDS MD Ot R10. 9 UNSPECIFIED ABDOMINAL PAIN 07/28/2017 MAI EDWARDS MD Ot Z79.891 PRISON (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 OF OPIATE ANALGE 08/16/2017 MAI EDWARDS MD Ot F17.210 NICOTINE DEPENDENCE, CIGARETTES, UNCOMPL 08/16/2017 MAI EDWARDS MD Ot G62. 9 POLYNEUROPATHY, UNSPECIFIED 08/16/2017 MAI EDWARDS MD, Ot G89. 4 CHRONIC PAIN SYNDROME 08/16/2017 MAI EDWARDS MD, Ot J44. 9 CHRONIC OBSTRUCTIVE PULMONARY DISEASE, U 08/16/2017 MAI EDWARDS MD Ot M25.519 PAIN IN UNSPECIFIED SHOULDER 08/16/2017 MAI EDWARDS MD Ot R10. 9 UNSPECIFIED ABDOMINAL PAIN 08/16/2017 MAI EDWARDS MD, Ot Z79.891 PRISON (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 OF OPIATE ANALGE 08/26/2017 MAI EDWARDS MD Ot F17.210 NICOTINE DEPENDENCE, CIGARETTES, UNCOMPL 08/26/2017 MAI EDWARDS MD, Ot G62. 9 POLYNEUROPATHY, UNSPECIFIED 08/26/2017 MAI EDWARDS MD Ot G89. 4 CHRONIC PAIN SYNDROME 08/26/2017 MAI EDWARDS MD, Ot J44. 9 CHRONIC OBSTRUCTIVE PULMONARY DISEASE, U 08/26/2017 MAI EDWARDS MD Ot M25.519 PAIN IN UNSPECIFIED SHOULDER 08/26/2017 MAI EDWARDS MD Ot R10. 9 UNSPECIFIED ABDOMINAL PAIN 08/26/2017 MAI EDWARDS MD Ot Z79.891 PRISON (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 OF OPIATE ANALGE 09/16/2017 MANA DUENAS APRN Ot G47.33 OBSTRUCTIVE SLEEP APNEA (ADULT) (PEDIATR 09/16/2017 MANA DUENAS APRN Ot I82.819 EMBOLISM AND THROMBOSIS OF SUPERFICIAL V 09/16/2017 MANA DUENAS APRN Ot J44.1 CHRONIC OBSTRUCTIVE PULMONARY DISEASE W 09/16/2017 MANA DUENAS APRN Ot J96.20 ACUTE AND CHR RESP FAILURE, UNSP W HYPOX 09/16/2017 MANA DUENAS APRN Ot M32.9 SYSTEMIC LUPUS ERYTHEMATOSUS, UNSPECIFIE 09/16/2017 MANA DUENAS APRN Ot R63.4 ABNORMAL WEIGHT LOSS 09/16/2017 MANA DUENAS APRN Ot Z72.0 TOBACCO USE 09/18/2017 MARIBELL RIVERA MD Ot E03 .9 HYPOTHYROIDISM, UNSPECIFIED 09/18/2017 MARIBELL RIVERA MD Ot E11 .9 TYPE 2 DIABETES MELLITUS WITHOUT COMPLIC 09/18/2017 MARIBELL RIVERA MD Ot E78.00 PURE HYPERCHOLESTEROLEMIA, UNSPECIFIED 09/18/2017 MARIBELL RIVERA MD Ot F17.210 NICOTINE DEPENDENCE, CIGARETTES, UNCOMPL 09/18/2017 MARIBELL RIVERA MD Ot F32 .9 MAJOR DEPRESSIVE DISORDER, SINGLE EPISOD 09/18/2017 MARIBELL RIVERA MD Ot F41 .9 ANXIETY DISORDER, UNSPECIFIED 09/18/2017 MARIBELL RIVERA MD Ot G47.30 SLEEP APNEA, UNSPECIFIED 09/18/2017 MARIBELL RIVERA MD Ot I10 ESSENTIAL (PRIMARY) HYPERTENSION 09/18/2017 MARIBELL RIVERA MD Ot I73 .9 PERIPHERAL VASCULAR DISEASE, UNSPECIFIED 09/18/2017 MARIBELL RIVERA MD Ot J44 .1 CHRONIC OBSTRUCTIVE PULMONARY DISEASE W 09/18/2017 MARIBELL RIVERA MD Ot K21 .9 GASTRO-ESOPHAGEAL REFLUX DISEASE WITHOUT 09/18/2017 MARIBELL RIVERA MD Ot R06.02 SHORTNESS OF BREATH 09/18/2017 MARIBELL RIVERA MD Ot Z79.01 PRISON (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 OF ANTICOAGULANT 09/18/2017 MARIBELL RIVERA MD Ot Z79.51 PRISON (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 OF INHALED STERO 09/18/2017 MARIBELL RIVERA MD Ot Z82.49 FAMILY HX OF ISCHEM HEART DIS AND OTH DI 09/18/2017 MARIBELL RIVERA MD Ot Z86.718 PERSONAL HISTORY OF OTHER VENOUS THROMBO 09/18/2017 MARIBELL RIVERA MD Ot Z87.19 PERSONAL HISTORY OF OTHER DISEASES OF TH 09/18/2017 MARIBELL RIVERA MD Ot Z87.442 PERSONAL HISTORY OF URINARY CALCULI 09/18/2017 MARIBELL RIVERA MD Ot Z88 .5 ALLERGY STATUS TO NARCOTIC AGENT STATUS 09/18/2017 MARIBELL RIVERA MD Ot Z88 .6 ALLERGY STATUS TO ANALGESIC AGENT STATUS 09/18/2017 MARIBELL RIVERA MD Ot Z88 .8 ALLERGY STATUS TO OTH DRUG/MEDS/BIOL SUB 09/18/2017 MARIBELL RIVERA MD Ot Z90.710 ACQUIRED ABSENCE OF BOTH CERVIX AND UTER 09/18/2017 MARIBELL RIVERA MD Ot Z90.89 ACQUIRED ABSENCE OF OTHER ORGANS 09/18/2017 MARIBELL RIVERA MD Ot Z95 .5 PRESENCE OF CORONARY ANGIOPLASTY IMPLANT 09/20/2017 MARIBELL RIVERA MD Ot E03 .9 HYPOTHYROIDISM, UNSPECIFIED 09/20/2017 MARIBELL RIVERA MD Ot E11 .9 TYPE 2 DIABETES MELLITUS WITHOUT COMPLIC 09/20/2017 MARIBELL RIVERA MD Ot E78.00 PURE HYPERCHOLESTEROLEMIA, UNSPECIFIED 09/20/2017 MARIBELL RIVERA MD Ot F17.210 NICOTINE DEPENDENCE, CIGARETTES, UNCOMPL 09/20/2017 MARIBELL RIVERA MD Ot F32 .9 MAJOR DEPRESSIVE DISORDER, SINGLE EPISOD 09/20/2017 MARIBELL RIVERA MD Ot F41 .9 ANXIETY DISORDER, UNSPECIFIED 09/20/2017 MARIBELL RIVERA MD Ot G47.30 SLEEP APNEA, UNSPECIFIED 09/20/2017 MARIBELL RIVERA MD Ot I10 ESSENTIAL (PRIMARY) HYPERTENSION 09/20/2017 MARIBELL RIVERA MD Ot I73 .9 PERIPHERAL VASCULAR DISEASE, UNSPECIFIED 09/20/2017 MARIBELL RIVERA MD Ot J44 .1 CHRONIC OBSTRUCTIVE PULMONARY DISEASE W 09/20/2017 MARIBELL RIVERA MD Ot K21 .9 GASTRO-ESOPHAGEAL REFLUX DISEASE WITHOUT 09/20/2017 MARIBELL RIVERA MD Ot R06.02 SHORTNESS OF BREATH 09/20/2017 MARIBELL RIVERA MD Ot 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 09/20/2017 MARIBELL RIVERA MD Ot Z79.51 RESIDENTIAL TEAM LEADER (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 OF INHALED STERO 09/20/2017 MARIBELL RIVERA MD Ot Z82.49 FAMILY HX OF ISCHEM HEART DIS AND OTH DI 09/20/2017 MARIBELL RIVERA MD Ot Z86.718 PERSONAL HISTORY OF OTHER VENOUS THROMBO 09/20/2017 MARIBELL RIVERA MD Ot Z87.19 PERSONAL HISTORY OF OTHER DISEASES OF TH 09/20/2017 MARIBELL RIVERA MD Ot Z87.442 PERSONAL HISTORY OF URINARY CALCULI 09/20/2017 MARIBELL RIVERA MD Ot Z88 .5 ALLERGY STATUS TO NARCOTIC AGENT STATUS 09/20/2017 MARIBELL RIVERA MD Ot Z88 .6 ALLERGY STATUS TO ANALGESIC AGENT STATUS 09/20/2017 MARIBELL RIVERA MD Ot Z88 .8 ALLERGY STATUS TO OTH DRUG/MEDS/BIOL SUB 09/20/2017 MARIBELL RIVERA MD Ot Z90.710 ACQUIRED ABSENCE OF BOTH CERVIX AND UTER 09/20/2017 MARIBELL RIVERA MD Ot Z90.89 ACQUIRED ABSENCE OF OTHER ORGANS 09/20/2017 MARIBELL RIVERA MD Ot Z95 .5 PRESENCE OF CORONARY ANGIOPLASTY IMPLANT 09/20/2017 Ot 286.9 COAG ULAT DEFECT NEC/NOS 09/20/2017 Ot V72.84 EXA M PRE- OPERATIVE NOS 09/20/2017 Ot 453.41 ACU TE VENOUS EMBOLISM THROMBOSIS DEEP 09/20/2017 MAI ANDERSON MD Ot 553.21 INCISIONAL HERNIA 09/20/2017 MAI ANDERSON MD Ot V72.84 EXAM PRE-OPERATIVE NOS 09/20/2017 MAI ANDERSON MD Ot V74.8 SCREEN-BACTERIAL DIS NEC 09/20/2017 MONICO VALLE MD Ot 244.9 HYPOTHYROIDISM NOS 09/20/2017 MONICO VALLE MD Ot 250.00 DIAB WALLY WO COMPL, TYPE II OR UNSPEC TY 09/20/2017 MONICO VALLE MD Ot 305.1 TOBACCO USE DISORDER 09/20/2017 MONICO VALLE MD Ot 311 DEPRESSIVE DISORDER NEC 09/20/2017 MONICO VALLE MD Ot 327.23 OBSTRUCTIVE SLEEP APNEA (ADULT) (PEDIATR 09/20/2017 MONICO VALLE MD Ot 401.9 HYPERTENSION NOS 09/20/2017 MONICO VALLE MD Ot 416.2 CHRONIC PULMONARY EMBOLISM 09/20/2017 MONICO VALLE MD Ot 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 09/20/2017 MONICO VALLE MD Ot 496 CHR AIRWAY OBSTRUCT NEC 09/20/2017 MONICO VALLE MD Ot 710.0 SYST LUPUS ERYTHEMATOSIS 09/20/2017 MONICO VALLE MD Ot V58.61 ANTICOAGULANTS,LT,CURRENT USE 09/20/2017 MONICO VALLE MD Ot V58.69 OTH MED,LT,CURRENT USE 09/20/2017 MYESHA BOWIE MIKAL Na Ot 285. 9 ANEMIA NOS 09/20/2017 MYESHA DO MIKAL Na Ot 305. 1 TOBACCO USE DISORDER 09/20/2017 MIKAL BRUNNER DO Ot 327. 23 OBSTRUCTIVE SLEEP APNEA (ADULT) (PEDIATR 09/20/2017 MYESHA BOWIE MIKAL Na Ot 493. 20 CHRONIC OBSTRUCTIVE ASTHMA, NOS 09/20/2017 MYESHA BOWIE MIKAL M Ot 710. 0 SYST LUPUS ERYTHEMATOSIS 09/20/2017 MIKAL BRUNNER DO Ot 716. 90 ARTHROPATHY NOS-UNSPEC 09/20/2017 MIKAL BRUNNER DO Ot 786. 05 SHORTNESS OF BREATH 09/20/2017 RADHA POLLARD, HAZEL Fleming Ot 728.85 SPASM OF MUSCLE 09/20/2017 GABY POLLARD, CANDE Gibbs Ot 724. 2 LUMBAGO 09/20/2017 RICARDO CHACKO 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 Ot 280.9 IRON DEFIC ANEMIA NOS 09/20/2017 RICARDO CHACKOP Ot 585.3 CHRONIC KIDNEY DISEASE, STAGE III (MODER 09/20/2017 RICARDO CHACKO 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 Ot 795.79 OTH AND UNSPEC NONSPECIFIC IMMUNOLOGICAL 09/20/2017 RICARDO CHACKO 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 Ot V12.51 HX-VENOUS THROMBOSIS EMBOLISM 09/20/2017 RICARDO CHACKO 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 Ot V12.55 PERSONAL HISTORY OF PULMONARY EMBOLISM 09/20/2017 RICARDO CHACKOP Ot V58.69 OTH MED,LT,CURRENT USE 09/20/2017 HAZEL GARCIA MD Ot 790 .5 ABN SERUM ENZY LEVEL NEC 09/20/2017 HAZEL GARCIA MD Ot 599 .0 URIN TRACT INFECTION NOS 09/20/2017 MONICA POLLARD, MAI S Ot 285.9 ANEMIA NOS 09/20/2017 DANIEL PORTER DO Ot M51.37 OTHER INTERVERTEBRAL DISC DEGENERATION, 09/20/2017 RICARDO CHACKO 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 Ot E03.9 HYPOTHYROIDISM, UNSPECIFIED 09/20/2017 RICARDO CHACKO 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 Ot E11.9 TYPE 2 DIABETES MELLITUS WITHOUT COMPLIC 09/20/2017 RICARDO CHACKO 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 Ot F17.200 NICOTINE DEPENDENCE, UNSPECIFIED, UNCOMP 09/20/2017 RICARDO CHACKO 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 Ot F32.9 MAJOR DEPRESSIVE DISORDER, SINGLE EPISOD 09/20/2017 CHACKORICARDO Alexandra 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 Ot G47.33 OBSTRUCTIVE SLEEP APNEA (ADULT) (PEDIATR 09/20/2017 RICARDO CHACKO Ot I 10 ESSENTIAL (PRIMARY) HYPERTENSION 09/20/2017 TAMAR CHACKOTERE Ibrahima AKHTARP Ot J44.9 CHRONIC OBSTRUCTIVE PULMONARY DISEASE, U 09/20/2017 RICARDO CHACKOP Ot M32.10 SYSTEMIC LUPUS ERYTHEMATOSUS, ORGAN OR S 09/20/2017 TAMAR CHACKOTERE Ibrahima AKHTARP Ot Z79.01 PRISON (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 OF ANTICOAGULANT 09/20/2017 TAMAR CHACKOTERE Alexandra 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 Ot Z86.2 PRSNL HISTORY OF DIS OF THE BLD/BLD-FORM 09/20/2017 TAMAR CHACKOTERE Ibrahima AKHTARP Ot Z86.711 PERSONAL HISTORY OF PULMONARY EMBOLISM 09/20/2017 RICARDO CHACKOP Ot Z86.718 PERSONAL HISTORY OF OTHER VENOUS THROMBO 09/20/2017 MILEY SANCHEZ Ot M46.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, THORACIC REGION 09/20/2017 JOSE GARZA Ot D68.8 OTHER SPECIFIED COAGULATION DEFECTS 09/20/2017 RICARDO CHACKOP Ot N 63 UNSPECIFIED LUMP IN BREAST 09/20/2017 MIKAL BRUNNER DO Ot E66. 9 OBESITY, UNSPECIFIED 09/20/2017 MIKAL BRUNNER DO Ot J44. 9 CHRONIC OBSTRUCTIVE PULMONARY DISEASE, U 09/20/2017 MIKAL BRUNNER DO Ot M32. 9 SYSTEMIC LUPUS ERYTHEMATOSUS, UNSPECIFIE 09/20/2017 MIKAL BRUNNER DO Ot N63 UNSPECIFIED LUMP IN BREAST 09/20/2017 MIKAL BRUNNER DO Ot R06. 02 SHORTNESS OF BREATH 09/20/2017 MIKAL BRUNNER DO Ot Z72. 0 TOBACCO USE 09/20/2017 MANA DUENAS APRN Ot J44.9 CHRONIC OBSTRUCTIVE PULMONARY DISEASE, U 09/20/2017 MANA DUENAS APRN Ot J96.20 ACUTE AND CHR RESP FAILURE, UNSP W HYPOX 09/20/2017 MANA DUENAS APRN Ot Z72.0 TOBACCO USE 09/20/2017 JOSE GARZA Ot D50.0 IRON DEFICIENCY ANEMIA SECONDARY TO BLOO 09/20/2017 JOSE GARZA Lonnie Ot 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 09/20/2017 JOSE GARZA Lonnie Ot E03.9 HYPOTHYROIDISM, UNSPECIFIED 09/20/2017 JOSE GARZA Lonnie Ot E11.9 TYPE 2 DIABETES MELLITUS WITHOUT COMPLIC 09/20/2017 JOSE GARZA Lonnie Ot F17.200 NICOTINE DEPENDENCE, UNSPECIFIED, UNCOMP 09/20/2017 JOSE GARZA Lonnie Ot F32.9 MAJOR DEPRESSIVE DISORDER, SINGLE EPISOD 09/20/2017 JOSE GARZA Lonnie Ot G47.33 OBSTRUCTIVE SLEEP APNEA (ADULT) (PEDIATR 09/20/2017 KAYLA GREYSONDONELL Lonnie Ot I10 ESSENTIAL (PRIMARY) HYPERTENSION 09/20/2017 KAYLA GREYSONDONELL Lonnie Ot J44.9 CHRONIC OBSTRUCTIVE PULMONARY DISEASE, U 09/20/2017 JOSE GARZA Lonnie Ot Z79.01 PRISON (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 OF ANTICOAGULANT 09/20/2017 JOSE GARZA Lonnie Ot Z86.2 PRSNL HISTORY OF DIS OF THE BLD/BLD-FORM 09/20/2017 KAYLAGREYSONDONELL Lonnie Ot Z86.711 PERSONAL HISTORY OF PULMONARY EMBOLISM 09/20/2017 KAYLAJOSE Ot Z86.718 PERSONAL HISTORY OF OTHER VENOUS THROMBO 09/20/2017 MAI EDWARDS MD Ot F17.210 NICOTINE DEPENDENCE, CIGARETTES, UNCOMPL 09/20/2017 MAI EDWARDS MD, Ot G62. 9 POLYNEUROPATHY, UNSPECIFIED 09/20/2017 MAI EDWARDS MD Ot G89. 4 CHRONIC PAIN SYNDROME 09/20/2017 MAI EDWARDS MD Ot J44. 9 CHRONIC OBSTRUCTIVE PULMONARY DISEASE, U 09/20/2017 MAI EDWARDS MD Ot M25.519 PAIN IN UNSPECIFIED SHOULDER 09/20/2017 MAI EDWARDS MD Ot R10. 9 UNSPECIFIED ABDOMINAL PAIN 09/20/2017 MAI EDWARDS MD Ot Z79.891 RESIDENTIAL TEAM LEADER (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 OF OPIATE ANALGE 09/20/2017 MANA DUENAS APRN Ot G47.33 OBSTRUCTIVE SLEEP APNEA (ADULT) (PEDIATR 09/20/2017 MANA DUENAS APRN Ot I82.819 EMBOLISM AND THROMBOSIS OF SUPERFICIAL V 09/20/2017 MANA DUENAS APRN Ot J44.1 CHRONIC OBSTRUCTIVE PULMONARY DISEASE W 09/20/2017 GISELLE DUENASINE E PSYCHOLOGIST EXPERIMENTAL Ot J96.20 ACUTE AND CHR RESP FAILURE, UNSP W HYPOX 09/20/2017 YULISSAGISELLE ORTEGAINE E PSYCHOLOGIST EXPERIMENTAL Ot M32.9 SYSTEMIC LUPUS ERYTHEMATOSUS, UNSPECIFIE 09/20/2017 YULISSA, MANA E PSYCHOLOGIST EXPERIMENTAL Ot R63.4 ABNORMAL WEIGHT LOSS 09/20/2017 GISELLE DUENASINE E PSYCHOLOGIST EXPERIMENTAL Ot Z72.0 TOBACCO USE 09/23/2017 GISELLE DUENASINE E PSYCHOLOGIST EXPERIMENTAL Ot G47.33 OBSTRUCTIVE SLEEP APNEA (ADULT) (PEDIATR 09/23/2017 YULISSA, MANA E PSYCHOLOGIST EXPERIMENTAL Ot I82.819 EMBOLISM AND THROMBOSIS OF SUPERFICIAL V 09/23/2017 YULISSAGISELLE ORTEGAINE E PSYCHOLOGIST EXPERIMENTAL Ot J44.1 CHRONIC OBSTRUCTIVE PULMONARY DISEASE W 09/23/2017 YULISSAGISELLE ORTEGAINE E PSYCHOLOGIST EXPERIMENTAL Ot J96.20 ACUTE AND CHR RESP FAILURE, UNSP W HYPOX 09/23/2017 GISELLE DUENASINE E PSYCHOLOGIST EXPERIMENTAL Ot M32.9 SYSTEMIC LUPUS ERYTHEMATOSUS, UNSPECIFIE 09/23/2017 GISELLE DUENASINE E PSYCHOLOGIST EXPERIMENTAL Ot R63.4 ABNORMAL WEIGHT LOSS 09/23/2017 GISELLE DUENASINE E PSYCHOLOGIST EXPERIMENTAL Ot Z72.0 TOBACCO USE 09/23/2017 GISELLE DUENASINE E PSYCHOLOGIST EXPERIMENTAL Ot G47.33 OBSTRUCTIVE SLEEP APNEA (ADULT) (PEDIATR 09/23/2017 GISELLE DUENASINE E PSYCHOLOGIST EXPERIMENTAL Ot I82.819 EMBOLISM AND THROMBOSIS OF SUPERFICIAL V 09/23/2017 MANA DUENAS PSYCHOLOGIST EXPERIMENTAL Ot J44.1 CHRONIC OBSTRUCTIVE PULMONARY DISEASE W 09/23/2017 GISELLE DUENASINE Indra PSYCHOLOGIST EXPERIMENTAL Ot J96.20 ACUTE AND CHR RESP FAILURE, UNSP W HYPOX 09/23/2017 GISELLE DUENASINE E PSYCHOLOGIST EXPERIMENTAL Ot M32.9 SYSTEMIC LUPUS ERYTHEMATOSUS, UNSPECIFIE 09/23/2017 GISELLE DUENASINE E PSYCHOLOGIST EXPERIMENTAL Ot R63.4 ABNORMAL WEIGHT LOSS 09/23/2017 GISELLE DUENASINE E PSYCHOLOGIST EXPERIMENTAL Ot Z72.0 TOBACCO USE 09/27/2017 YULISSA MANA E PSYCHOLOGIST EXPERIMENTAL Ot D50.9 IRON DEFICIENCY ANEMIA, UNSPECIFIED 09/27/2017 GISELLE DUENASINE E PSYCHOLOGIST EXPERIMENTAL Ot G47.33 OBSTRUCTIVE SLEEP APNEA (ADULT) (PEDIATR 09/27/2017 GISELLE DUENASINE E PSYCHOLOGIST EXPERIMENTAL Ot J44.1 CHRONIC OBSTRUCTIVE PULMONARY DISEASE W 09/27/2017 MANA DUENAS PSYCHOLOGIST EXPERIMENTAL Ot J96.20 ACUTE AND CHR RESP FAILURE, UNSP W HYPOX 09/27/2017 GISELLE DUENASINE E PSYCHOLOGIST EXPERIMENTAL Ot M32.9 SYSTEMIC LUPUS ERYTHEMATOSUS, UNSPECIFIE 09/27/2017 GISELLE DUENASINE E PSYCHOLOGIST EXPERIMENTAL Ot R63.4 ABNORMAL WEIGHT LOSS 09/27/2017 GISELLE DUENASINE E PSYCHOLOGIST EXPERIMENTAL Ot Z72.0 TOBACCO USE 09/27/2017 GISELLE DUENASINE E PSYCHOLOGIST EXPERIMENTAL Ot G47.33 OBSTRUCTIVE SLEEP APNEA (ADULT) (PEDIATR 09/27/2017 MANA DUENAS PSYCHOLOGIST EXPERIMENTAL Ot J44.1 CHRONIC OBSTRUCTIVE PULMONARY DISEASE W 09/27/2017 MANA DUENAS PSYCHOLOGIST EXPERIMENTAL Ot J96.20 ACUTE AND CHR RESP FAILURE, UNSP W HYPOX 09/27/2017 MANA DUENAS PSYCHOLOGIST EXPERIMENTAL Ot M32.9 SYSTEMIC LUPUS ERYTHEMATOSUS, UNSPECIFIE 09/27/2017 MANA DUENAS E PSYCHOLOGIST EXPERIMENTAL Ot R63.4 ABNORMAL WEIGHT LOSS 09/27/2017 MANA DUENAS PSYCHOLOGIST EXPERIMENTAL Ot Z72.0 TOBACCO USE 10/13/2017 MANA DUENAS PSYCHOLOGIST EXPERIMENTAL Ot D50.9 IRON DEFICIENCY ANEMIA, UNSPECIFIED 10/13/2017 MANA DUENAS PSYCHOLOGIST EXPERIMENTAL Ot G47.33 OBSTRUCTIVE SLEEP APNEA (ADULT) (PEDIATR 10/13/2017 MANA DUENAS PSYCHOLOGIST EXPERIMENTAL Ot J44.1 CHRONIC OBSTRUCTIVE PULMONARY DISEASE W 10/13/2017 MANA DUENAS PSYCHOLOGIST EXPERIMENTAL Ot J96.20 ACUTE AND CHR RESP FAILURE, UNSP W HYPOX 10/13/2017 MANA DUENAS E PSYCHOLOGIST EXPERIMENTAL Ot M32.9 SYSTEMIC LUPUS ERYTHEMATOSUS, UNSPECIFIE 10/13/2017 GISELLE DUENASINE E PSYCHOLOGIST EXPERIMENTAL Ot R63.4 ABNORMAL WEIGHT LOSS 10/13/2017 MANA DUENAS PSYCHOLOGIST EXPERIMENTAL Ot Z72.0 TOBACCO USE 10/14/2017 MANA DUENAS E PSYCHOLOGIST EXPERIMENTAL Ot G47.33 OBSTRUCTIVE SLEEP APNEA (ADULT) (PEDIATR 10/14/2017 GISELLE DUENASINE E PSYCHOLOGIST EXPERIMENTAL Ot I82.819 EMBOLISM AND THROMBOSIS OF SUPERFICIAL V 10/14/2017 MANA DUENAS PSYCHOLOGIST EXPERIMENTAL Ot J44.1 CHRONIC OBSTRUCTIVE PULMONARY DISEASE W 10/14/2017 GISELLE DUENASINE Indra PSYCHOLOGIST EXPERIMENTAL Ot J96.20 ACUTE AND CHR RESP FAILURE, UNSP W HYPOX 10/14/2017 GISELLE DUENASINE Indra PSYCHOLOGIST EXPERIMENTAL Ot M32.9 SYSTEMIC LUPUS ERYTHEMATOSUS, UNSPECIFIE 10/14/2017 GISELLE DUENASINE E PSYCHOLOGIST EXPERIMENTAL Ot R63.4 ABNORMAL WEIGHT LOSS 10/14/2017 MANA DUENAS PSYCHOLOGIST EXPERIMENTAL Ot Z72.0 TOBACCO USE 10/20/2017 RICARDO CHACKO S 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 Ot R92.2 INCONCLUSIVE MAMMOGRAM 10/21/2017 MANA DUENAS PSYCHOLOGIST EXPERIMENTAL Ot G47.33 OBSTRUCTIVE SLEEP APNEA (ADULT) (PEDIATR 10/21/2017 GISELLE DUENASINE E PSYCHOLOGIST EXPERIMENTAL Ot I82.819 EMBOLISM AND THROMBOSIS OF SUPERFICIAL V 10/21/2017 MANA DUENAS PSYCHOLOGIST EXPERIMENTAL Ot J44.1 CHRONIC OBSTRUCTIVE PULMONARY DISEASE W 10/21/2017 MANA DUENAS PSYCHOLOGIST EXPERIMENTAL Ot J96.20 ACUTE AND CHR RESP FAILURE, UNSP W HYPOX 10/21/2017 MAAN DUENAS PSYCHOLOGIST EXPERIMENTAL Ot M32.9 SYSTEMIC LUPUS ERYTHEMATOSUS, UNSPECIFIE 10/21/2017 MANA DUENAS PSYCHOLOGIST EXPERIMENTAL Ot R63.4 ABNORMAL WEIGHT LOSS 10/21/2017 MANA DUENAS PSYCHOLOGIST EXPERIMENTAL Ot Z72.0 TOBACCO USE 10/28/2017 MANA DUENAS PSYCHOLOGIST EXPERIMENTAL Ot D50.9 IRON DEFICIENCY ANEMIA, UNSPECIFIED 10/28/2017 MANA DUENAS PSYCHOLOGIST EXPERIMENTAL Ot G47.33 OBSTRUCTIVE SLEEP APNEA (ADULT) (PEDIATR 10/28/2017 MANA DUENAS PSYCHOLOGIST EXPERIMENTAL Ot J44.1 CHRONIC OBSTRUCTIVE PULMONARY DISEASE W 10/28/2017 MANA DUENAS PSYCHOLOGIST EXPERIMENTAL Ot J96.20 ACUTE AND CHR RESP FAILURE, UNSP W HYPOX 10/28/2017 GISELLE DUENASINE E PSYCHOLOGIST EXPERIMENTAL Ot M32.9 SYSTEMIC LUPUS ERYTHEMATOSUS, UNSPECIFIE 10/28/2017 MANA DUENAS E PSYCHOLOGIST EXPERIMENTAL Ot R63.4 ABNORMAL WEIGHT LOSS 10/28/2017 MANA DUENAS PSYCHOLOGIST EXPERIMENTAL Ot Z72.0 TOBACCO USE 11/02/2017 RICARDO CHACKO S 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 Ot R92.2 INCONCLUSIVE MAMMOGRAM 11/15/2017 JOSE GARZA Ot D50.0 IRON DEFICIENCY ANEMIA SECONDARY TO BLOO 11/15/2017 JOSE GARZA Ot 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 11/15/2017 KAYLA, BOBAN N Ot E03.9 HYPOTHYROIDISM, UNSPECIFIED 11/15/2017 KAYLAJOSE N Ot E11.9 TYPE 2 DIABETES MELLITUS WITHOUT COMPLIC 11/15/2017 JOSE GARZA N Ot F17.200 NICOTINE DEPENDENCE, UNSPECIFIED, UNCOMP 11/15/2017 KAYLAJOSE N Ot F32.9 MAJOR DEPRESSIVE DISORDER, SINGLE EPISOD 11/15/2017 JOSE GARZA N Ot G47.33 OBSTRUCTIVE SLEEP APNEA (ADULT) (PEDIATR 11/15/2017 JOSE GARZA N Ot I10 ESSENTIAL (PRIMARY) HYPERTENSION 11/15/2017 JOSE GARZA N Ot J44.9 CHRONIC OBSTRUCTIVE PULMONARY DISEASE, U 11/15/2017 JOSE GARZA N Ot Z79.01 PRISON (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 OF ANTICOAGULANT 11/15/2017 JOSE GARZA N Ot Z86.2 PRSNL HISTORY OF DIS OF THE BLD/BLD-FORM 11/15/2017 JOSE GARZA Ot Z86.711 PERSONAL HISTORY OF PULMONARY EMBOLISM 11/15/2017 JOSE GARZA Ot Z86.718 PERSONAL HISTORY OF OTHER VENOUS THROMBO 12/06/2017 KINGS POLLARD, ADAM Ot N20. 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 12/06/2017 JOSE GARZA N Ot E03.9 HYPOTHYROIDISM, UNSPECIFIED 12/06/2017 JOSE AGRZA N Ot E11.9 TYPE 2 DIABETES MELLITUS WITHOUT COMPLIC 12/06/2017 JOSE GARZA Ot F17.200 NICOTINE DEPENDENCE, UNSPECIFIED, UNCOMP 12/06/2017 JOSE GARZA N Ot F32.9 MAJOR DEPRESSIVE DISORDER, SINGLE EPISOD 12/06/2017 JOSE GARZA N Ot G47.33 OBSTRUCTIVE SLEEP APNEA (ADULT) (PEDIATR 12/06/2017 KAYLAJOSE N Ot I10 ESSENTIAL (PRIMARY) HYPERTENSION 12/06/2017 JOSE GARZA N Ot J44.9 CHRONIC OBSTRUCTIVE PULMONARY DISEASE, U 12/06/2017 JOSE GARZA N Ot 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 12/06/2017 JOSE GARZA N Ot Z86.2 PRSNL HISTORY OF DIS OF THE BLD/BLD-FORM 12/06/2017 JOSE GARZA Lonnie Ot Z86.711 PERSONAL HISTORY OF PULMONARY EMBOLISM 12/06/2017 KAYLAJOSE Ot Z86.718 PERSONAL HISTORY OF OTHER VENOUS THROMBO 12/16/2017 KAYLAJOSE Ot D50.0 IRON DEFICIENCY ANEMIA SECONDARY TO BLOO 12/16/2017 KAYLAJOSE Ot 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 12/16/2017 KAYLAJOSE Ot E03.9 HYPOTHYROIDISM, UNSPECIFIED 12/16/2017 KAYLAJOSE Ot E11.9 TYPE 2 DIABETES MELLITUS WITHOUT COMPLIC 12/16/2017 KAYLAJOSE Ot F17.200 NICOTINE DEPENDENCE, UNSPECIFIED, UNCOMP 12/16/2017 KAYLAJOSE Ot F32.9 MAJOR DEPRESSIVE DISORDER, SINGLE EPISOD 12/16/2017 KAYLAJOES Ot G47.33 OBSTRUCTIVE SLEEP APNEA (ADULT) (PEDIATR 12/16/2017 JOSE GARZA Ot I10 ESSENTIAL (PRIMARY) HYPERTENSION 12/16/2017 JOSE GARZA Ot J44.9 CHRONIC OBSTRUCTIVE PULMONARY DISEASE, U 12/16/2017 KAYLAGREYSONDONELL Lonnie Ot Z79.01 PRISON (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 OF ANTICOAGULANT 12/16/2017 KAYLAJOSE Ot Z86.2 PRSNL HISTORY OF DIS OF THE BLD/BLD-FORM 12/16/2017 KAYLAJOSE Ot Z86.711 PERSONAL HISTORY OF PULMONARY EMBOLISM 12/16/2017 JOSE GARZA Ot Z86.718 PERSONAL HISTORY OF OTHER VENOUS THROMBO 12/16/2017 KINGS POLLARD, ADAM Ot N20. 0 CALCULUS OF KIDNEY 03/24/2018 MAI ANDERSON MD Ot 553.21 INCISIONAL HERNIA 03/24/2018 MAI ANDERSON MD Ot V72.84 EXAM PRE-OPERATIVE NOS 03/24/2018 MAI ANDERSON MD Ot V74.8 SCREEN-BACTERIAL DIS NEC 03/24/2018 MONICO VALLE MD Ot 244.9 HYPOTHYROIDISM NOS 03/24/2018 MONICO VALLE MD Ot 250.00 DIAB WALLY WO COMPL, TYPE II OR UNSPEC TY 03/24/2018 MONICO VALLE MD Ot 305.1 TOBACCO USE DISORDER 03/24/2018 MONICO VALLE MD Ot 311 DEPRESSIVE DISORDER NEC 03/24/2018 MONICO VALLE MD Ot 327.23 OBSTRUCTIVE SLEEP APNEA (ADULT) (PEDIATR 03/24/2018 MONICO VALLE MD Ot 401.9 HYPERTENSION NOS 03/24/2018 MONICO VALLE MD Ot 416.2 CHRONIC PULMONARY EMBOLISM 03/24/2018 MONICO VALLE MD Ot 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 9 ANEMIA NOS 03/24/2018 MIKAL BRUNNER DO Ot 305. 1 TOBACCO USE DISORDER 03/24/2018 MIKAL BRUNNER DO Ot 327. 23 OBSTRUCTIVE SLEEP APNEA (ADULT) (PEDIATR 03/24/2018 MIKAL BRUNNER DO Ot 493. 20 CHRONIC OBSTRUCTIVE ASTHMA, NOS 03/24/2018 MIKAL BRUNNER DO Ot 710. 0 SYST LUPUS ERYTHEMATOSIS 03/24/2018 MIKAL BRUNNER DO Ot 716. 90 ARTHROPATHY NOS-UNSPEC 03/24/2018 MIKAL BRUNNER DO Ot 786. 05 SHORTNESS OF BREATH 03/24/2018 RADHA POLLARD, HAZEL Fleming Ot 728.85 SPASM OF MUSCLE 03/24/2018 GABY POLLARD, CANDE Gibbs Ot 724. 2 LUMBAGO 03/24/2018 RICARDO CHACKO Ot 280.9 IRON DEFIC ANEMIA NOS 03/24/2018 RICARDO CHACKO Ot 585.3 CHRONIC KIDNEY DISEASE, STAGE III (MODER 03/24/2018 RICARDO CHACKO Ot 795.79 OTH AND UNSPEC NONSPECIFIC IMMUNOLOGICAL 03/24/2018 RICARDO CHACKO Ot V12.51 HX-VENOUS THROMBOSIS EMBOLISM 03/24/2018 RICARDO CHACKO Ot V12.55 PERSONAL HISTORY OF PULMONARY EMBOLISM 03/24/2018 RICARDO CHACKO Ot V58.69 OTH MED,LT,CURRENT USE 03/24/2018 HAZEL GARCIA MD Ot 790 .5 ABN SERUM ENZY LEVEL NEC 03/24/2018 HAZEL GARCIA MD Ot 599 .0 URIN TRACT INFECTION NOS 03/24/2018 MONICA POLLARD, MAI S Ot 285.9 ANEMIA NOS 03/24/2018 DANIEL PORTER DO Ot M51.37 OTHER INTERVERTEBRAL DISC DEGENERATION, 03/24/2018 RICARDO CHACKOP Ot E03.9 HYPOTHYROIDISM, UNSPECIFIED 03/24/2018 RICARDO CHACKO CAR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 Ot E11.9 TYPE 2 DIABETES MELLITUS WITHOUT COMPLIC 03/24/2018 RICARDO CHACKO 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 Ot F17.200 NICOTINE DEPENDENCE, UNSPECIFIED, UNCOMP 03/24/2018 RICARDO CHACKOP Ot F32.9 MAJOR DEPRESSIVE DISORDER, SINGLE EPISOD 03/24/2018 RICARDO CHACKO 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 Ot G47.33 OBSTRUCTIVE SLEEP APNEA (ADULT) (PEDIATR 03/24/2018 RICARDO CHACKOP Ot I 10 ESSENTIAL (PRIMARY) HYPERTENSION 03/24/2018 RICARDO CHACKOP Ot J44.9 CHRONIC OBSTRUCTIVE PULMONARY DISEASE, U 03/24/2018 RICARDO CHACKOP Ot M32.10 SYSTEMIC LUPUS ERYTHEMATOSUS, ORGAN OR S 03/24/2018 RICARDO CHACKO 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 Ot 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 03/24/2018 RICARDO CHACKO [employer]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 Ot Z86.2 PRSNL HISTORY OF DIS OF THE BLD/BLD-FORM 03/24/2018 RICARDO CHACKOP Ot Z86.711 PERSONAL HISTORY OF PULMONARY EMBOLISM 03/24/2018 RICARDO CHACKOP Ot Z86.718 PERSONAL HISTORY OF OTHER VENOUS THROMBO 03/24/2018 MILEY SANCHEZP Ot M46.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, THORACIC REGION 03/24/2018 JOSE GARZA Ot D68.8 OTHER SPECIFIED COAGULATION DEFECTS 03/24/2018 RICARDO CHACKOP Ot N 63 UNSPECIFIED LUMP IN BREAST 03/24/2018 MIKAL BRUNNER DO Ot E66. 9 OBESITY, UNSPECIFIED 03/24/2018 MIKAL BRUNNER DO Ot J44. 9 CHRONIC OBSTRUCTIVE PULMONARY DISEASE, U 03/24/2018 MIKAL BRUNNER DO Ot M32. 9 SYSTEMIC LUPUS ERYTHEMATOSUS, UNSPECIFIE 03/24/2018 MYESHA MIKAL Ot N63 UNSPECIFIED LUMP IN BREAST 03/24/2018 MYESHA MIKAL Ot R06. 02 SHORTNESS OF BREATH 03/24/2018 MIKAL BRUNNER DO Ot Z72. 0 TOBACCO USE 03/24/2018 MANA DUENAS APRN Ot J44.9 CHRONIC OBSTRUCTIVE PULMONARY DISEASE, U 03/24/2018 MANA DUENAS APRN Ot J96.20 ACUTE AND CHR RESP FAILURE, UNSP W HYPOX 03/24/2018 MANA DUENAS APRN Ot Z72.0 TOBACCO USE 03/24/2018 MAI EDWARDS MD Ot F17.210 NICOTINE DEPENDENCE, CIGARETTES, UNCOMPL 03/24/2018 MAI EDWARDS MD Ot G62. 9 POLYNEUROPATHY, UNSPECIFIED 03/24/2018 MAI EDWARDS MD Ot G89. 4 CHRONIC PAIN SYNDROME 03/24/2018 MAI EDWARDS MD Ot J44. 9 CHRONIC OBSTRUCTIVE PULMONARY DISEASE, U 03/24/2018 MAI EDWARDS MD Ot M25.519 PAIN IN UNSPECIFIED SHOULDER 03/24/2018 MAI EDWARDS MD Ot R10. 9 UNSPECIFIED ABDOMINAL PAIN 03/24/2018 MAI EDWARDS MD Ot Z79.891 RESIDENTIAL TEAM LEADER (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 OF OPIATE ANALGE 03/24/2018 MANA DUENAS APRN Ot G47.33 OBSTRUCTIVE SLEEP APNEA (ADULT) (PEDIATR 03/24/2018 MANA DUENAS APRN Ot I82.819 EMBOLISM AND THROMBOSIS OF SUPERFICIAL V 03/24/2018 MANA DUENAS APRN Ot J44.1 CHRONIC OBSTRUCTIVE PULMONARY DISEASE W 03/24/2018 MANA DUENAS APRN Ot J96.20 ACUTE AND CHR RESP FAILURE, UNSP W HYPOX 03/24/2018 MANA DUENAS APRN Ot M32.9 SYSTEMIC LUPUS ERYTHEMATOSUS, UNSPECIFIE 03/24/2018 MANA DUENAS APRN Ot R63.4 ABNORMAL WEIGHT LOSS 03/24/2018 MANA DUENAS APRN Ot Z72.0 TOBACCO USE 03/24/2018 MANA DUENAS APRN Ot D50.9 IRON DEFICIENCY ANEMIA, UNSPECIFIED 03/24/2018 MANA DUENAS APRN Ot G47.33 OBSTRUCTIVE SLEEP APNEA (ADULT) (PEDIATR 03/24/2018 MANA DUENAS APRN Ot J44.1 CHRONIC OBSTRUCTIVE PULMONARY DISEASE W 03/24/2018 MANA DUENAS APRN Ot J96.20 ACUTE AND CHR RESP FAILURE, UNSP W HYPOX 03/24/2018 MANA DUENAS APRN Ot M32.9 SYSTEMIC LUPUS ERYTHEMATOSUS, UNSPECIFIE 03/24/2018 MANA DUENAS APRN Ot R63.4 ABNORMAL WEIGHT LOSS 03/24/2018 MANA DUENAS APRN Ot Z72.0 TOBACCO USE 03/24/2018 KINGS POLLARD, ADAM Ot N20. 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 03/24/2018 JOSE GARZA Ot E03.9 HYPOTHYROIDISM, UNSPECIFIED 03/24/2018 JOSE GARZA Ot E11.9 TYPE 2 DIABETES MELLITUS WITHOUT COMPLIC 03/24/2018 JOSE GARZA Ot F17.200 NICOTINE DEPENDENCE, UNSPECIFIED, UNCOMP 03/24/2018 JOSE GARZA Ot F32.9 MAJOR DEPRESSIVE DISORDER, SINGLE EPISOD 03/24/2018 JOSE GARZA Ot G47.33 OBSTRUCTIVE SLEEP APNEA (ADULT) (PEDIATR 03/24/2018 JOSE GARZA Ot I10 ESSENTIAL (PRIMARY) HYPERTENSION 03/24/2018 JOSE GARZA Ot J44.9 CHRONIC OBSTRUCTIVE PULMONARY DISEASE, U 03/24/2018 JOSE GARZA Ot Z79.01 PRISON (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 OF ANTICOAGULANT 03/24/2018 JOSE GARZA Ot Z86.2 PRSNL HISTORY OF DIS OF THE BLD/BLD-FORM 03/24/2018 JOSE GARZA Ot Z86.711 PERSONAL HISTORY OF PULMONARY EMBOLISM 03/24/2018 JOSE GARZA Ot Z86.718 PERSONAL HISTORY OF OTHER VENOUS THROMBO 03/24/2018 JHOAN RODRIGUEZ Ot E03.9 HYPOTHYROIDISM, UNSPECIFIED 03/24/2018 JHOAN RODRIGUEZ Ot E11.40 TYPE 2 DIABETES MELLITUS WITH DIABETIC N 03/24/2018 JHOAN RODRIGUEZ Ot E11.59 TYPE 2 DIABETES MELLITUS WITH OTH CIRCUL 03/24/2018 JHOAN RODRIGUEZ Ot E78.00 PURE HYPERCHOLESTEROLEMIA, UNSPECIFIED 03/24/2018 KATI RODRIGUEZIS Ot F17.210 NICOTINE DEPENDENCE, CIGARETTES, UNCOMPL 03/24/2018 JHOAN RODRIGUEZ Ot F32.9 MAJOR DEPRESSIVE DISORDER, SINGLE EPISOD 03/24/2018 JHOAN RODRIGUEZ Ot F41.9 ANXIETY DISORDER, UNSPECIFIED 03/24/2018 JHOAN RODRIGUEZ Ot G47.30 SLEEP APNEA, UNSPECIFIED 03/24/2018 JHOAN RODRIGUEZ Ot I10 ESSENTIAL (PRIMARY) HYPERTENSION 03/24/2018 JHOAN RODRIGUEZ Ot I73.9 PERIPHERAL VASCULAR DISEASE, UNSPECIFIED 03/24/2018 JHOAN RODRIGUEZ Ot J44.1 CHRONIC OBSTRUCTIVE PULMONARY DISEASE W 03/24/2018 JHOAN RODRIGUEZ Ot J44.9 CHRONIC OBSTRUCTIVE PULMONARY DISEASE, U 03/24/2018 JHOAN RODRIGUEZ Ot K21.9 GASTRO-ESOPHAGEAL REFLUX DISEASE WITHOUT 03/24/2018 JHOAN RODRIGUEZ Ot M32.9 SYSTEMIC LUPUS ERYTHEMATOSUS, UNSPECIFIE 03/24/2018 JHOAN RODRIGUEZ Ot Z79.01 PRISON (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 OF ANTICOAGULANT 03/24/2018 KATI RODRIGUEZIS Ot Z79.51 RESIDENTIAL TEAM LEADER (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 OF INHALED STERO 03/24/2018 JHOAN RODRIGUEZ Ot Z79.52 RESIDENTIAL TEAM LEADER (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 OF SYSTEMIC STER 03/24/2018 JHOAN RODRIGUEZ Ot Z82.49 FAMILY HX OF ISCHEM HEART DIS AND OTH DI 03/24/2018 JHOAN RODRIGUEZ Ot Z86.711 PERSONAL HISTORY OF PULMONARY EMBOLISM 03/24/2018 JHOAN RODRIGUEZ Ot Z86.718 PERSONAL HISTORY OF OTHER VENOUS THROMBO 03/24/2018 JHOAN RODRIGUEZ Ot Z87.19 PERSONAL HISTORY OF OTHER DISEASES OF TH 03/24/2018 JHOAN RODRIGUEZ Ot Z87.442 PERSONAL HISTORY OF URINARY CALCULI 03/24/2018 JHOAN RODRIGUEZ Ot Z88.4 ALLERGY STATUS TO ANESTHETIC AGENT STATU 03/24/2018 JHOAN RODRIGUEZ Ot Z88.5 ALLERGY STATUS TO NARCOTIC AGENT STATUS 03/24/2018 JHOAN RODRIGUEZ Ot Z88.6 ALLERGY STATUS TO ANALGESIC AGENT STATUS 03/24/2018 JHOAN RODRIGUEZ Ot Z88.8 ALLERGY STATUS TO OTH DRUG/MEDS/BIOL SUB 03/24/2018 BERNJAZIEL JHOAN Ot Z90.49 ACQUIRED ABSENCE OF OTHER SPECIFIED PART 03/24/2018 BERNJAZIEL JHOAN Ot Z90.710 ACQUIRED ABSENCE OF BOTH CERVIX AND UTER 03/24/2018 JENNIFER JHOAN Ot Z91.041 RADIOGRAPHIC DYE ALLERGY STATUS 03/24/2018 JENNIFER JHOAN Ot Z95.5 PRESENCE OF CORONARY ANGIOPLASTY IMPLANT 03/24/2018 JENNIFER JHOAN Ot Z98.890 OTHER SPECIFIED POSTPROCEDURAL STATES 03/27/2018 JENNIFER JHOAN Ot E03.9 HYPOTHYROIDISM, UNSPECIFIED 03/27/2018 BERNJAZIEL JHOAN Ot E11.40 TYPE 2 DIABETES MELLITUS WITH DIABETIC N 03/27/2018 JENNIFER JHOAN Ot E11.59 TYPE 2 DIABETES MELLITUS WITH OTH CIRCUL 03/27/2018 JENNIFER JHOAN Ot E78.00 PURE HYPERCHOLESTEROLEMIA, UNSPECIFIED 03/27/2018 JENNIFER, JHOAN Ot F17.210 NICOTINE DEPENDENCE, CIGARETTES, UNCOMPL 03/27/2018 JENNIFER JHOAN Ot F32.9 MAJOR DEPRESSIVE DISORDER, SINGLE EPISOD 03/27/2018 STEVEOT JHOAN Ot F41.9 ANXIETY DISORDER, UNSPECIFIED 03/27/2018 STEVEOT JHOAN Ot G47.30 SLEEP APNEA, UNSPECIFIED 03/27/2018 BERNOT, JHOAN Ot I10 ESSENTIAL (PRIMARY) HYPERTENSION 03/27/2018 JENNIFER, JHOAN Ot I73.9 PERIPHERAL VASCULAR DISEASE, UNSPECIFIED 03/27/2018 JENNIFER, JHOAN Ot J44.1 CHRONIC OBSTRUCTIVE PULMONARY DISEASE W 03/27/2018 JENNIFER JHOAN Ot J44.9 CHRONIC OBSTRUCTIVE PULMONARY DISEASE, U 03/27/2018 STEVEOT, JHOAN Ot K21.9 GASTRO-ESOPHAGEAL REFLUX DISEASE WITHOUT 03/27/2018 BERNOT, JHOAN Ot M32.9 SYSTEMIC LUPUS ERYTHEMATOSUS, UNSPECIFIE 03/27/2018 JENNIFER, JHOAN Ot 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 03/27/2018 BERNOT, JHOAN Ot Z79.51 PRISON (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 OF INHALED STERO 03/27/2018 JENNIFER, JHOAN Ot Z79.52 RESIDENTIAL TEAM LEADER (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 OF SYSTEMIC STER 03/27/2018 JENNIFER, JHOAN Ot Z82.49 FAMILY HX OF ISCHEM HEART DIS AND OTH DI 03/27/2018 JHOAN RODRIGUEZ Ot Z86.711 PERSONAL HISTORY OF PULMONARY EMBOLISM 03/27/2018 KATI RODRIGUEZIS Ot Z86.718 PERSONAL HISTORY OF OTHER VENOUS THROMBO 03/27/2018 KATI RODRIGUEZIS Ot Z87.19 PERSONAL HISTORY OF OTHER DISEASES OF TH 03/27/2018 KATI RODRIGUEZIS Ot Z87.442 PERSONAL HISTORY OF URINARY CALCULI 03/27/2018 JENNIFER JHOAN Ot Z88.4 ALLERGY STATUS TO ANESTHETIC AGENT STATU 03/27/2018 JENNIFERJHOAN Ot Z88.5 ALLERGY STATUS TO NARCOTIC AGENT STATUS 03/27/2018 JENNIFERJHOAN Ot Z88.6 ALLERGY STATUS TO ANALGESIC AGENT STATUS 03/27/2018 STEVEJHOAN SHERIFF Ot Z88.8 ALLERGY STATUS TO OTH DRUG/MEDS/BIOL SUB 03/27/2018 KATI RODRIGUEZIS Ot Z90.49 ACQUIRED ABSENCE OF OTHER SPECIFIED PART 03/27/2018 JENNIFERJHOAN Ot Z90.710 ACQUIRED ABSENCE OF BOTH CERVIX AND UTER 03/27/2018 JHOAN RODRIGUEZ Ot Z91.041 RADIOGRAPHIC DYE ALLERGY STATUS 03/27/2018 KATI RODRIGUEZIS Ot Z95.5 PRESENCE OF CORONARY ANGIOPLASTY IMPLANT 03/27/2018 KATI RODRIGUEZIS Ot Z98.890 OTHER SPECIFIED POSTPROCEDURAL STATES 06/21/2018 RICARDO CHACKO 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 Ot M79.89 OTHER SPECIFIED SOFT TISSUE DISORDERS 07/12/2018 RICARDO CHACKO 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 Ot M79.89 OTHER SPECIFIED SOFT TISSUE DISORDERS 07/27/2018 RICARDO CHACKO 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 Ot M79.89 OTHER SPECIFIED SOFT TISSUE DISORDERS 08/09/2018 JOSE GARZA Ot D50.0 IRON DEFICIENCY ANEMIA SECONDARY TO BLOO 08/09/2018 JOSE GARZA Ot 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 08/09/2018 JOSE GARZA Ot E03.9 HYPOTHYROIDISM, UNSPECIFIED 08/09/2018 JOSE GARZA Ot E11.9 TYPE 2 DIABETES MELLITUS WITHOUT COMPLIC 08/09/2018 JOSE GARZA Ot F17.200 NICOTINE DEPENDENCE, UNSPECIFIED, UNCOMP 08/09/2018 JOSE GARZA Ot F32.9 MAJOR DEPRESSIVE DISORDER, SINGLE EPISOD 08/09/2018 KAYLA, BOBAN N Ot G47.33 OBSTRUCTIVE SLEEP APNEA (ADULT) (PEDIATR 08/09/2018 KAYLA JOSE Fleming Ot I10 ESSENTIAL (PRIMARY) HYPERTENSION 08/09/2018 KAYLA, JOSE Fleming Ot J44.9 CHRONIC OBSTRUCTIVE PULMONARY DISEASE, U 08/09/2018 KAYLA JOSE Fleming Ot Z45.2 ENCOUNTER FOR ADJUSTMENT AND MANAGEMENT 08/09/2018 KAYLA JOSE Fleming Ot Z79.01 PRISON (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 OF ANTICOAGULANT 08/09/2018 JOSE GARZA Ot Z86.2 PRSNL HISTORY OF DIS OF THE BLD/BLD-FORM 08/09/2018 JOSE GARZA Ot Z86.711 PERSONAL HISTORY OF PULMONARY EMBOLISM 08/09/2018 JOSE GARZA Ot Z86.718 PERSONAL HISTORY OF OTHER VENOUS THROMBO 08/18/2018 JOSE GARZA Ot D50.0 IRON DEFICIENCY ANEMIA SECONDARY TO BLOO 08/18/2018 JOSE GARZA Ot 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 08/18/2018 JOSE GARZA Ot E03.9 HYPOTHYROIDISM, UNSPECIFIED 08/18/2018 JOSE GARZA Ot E11.9 TYPE 2 DIABETES MELLITUS WITHOUT COMPLIC 08/18/2018 JOSE GARZA Ot F17.200 NICOTINE DEPENDENCE, UNSPECIFIED, UNCOMP 08/18/2018 JOSE GARZA Ot F32.9 MAJOR DEPRESSIVE DISORDER, SINGLE EPISOD 08/18/2018 JOSE GARZA Ot G47.33 OBSTRUCTIVE SLEEP APNEA (ADULT) (PEDIATR 08/18/2018 KAYLAJOSE Ot I10 ESSENTIAL (PRIMARY) HYPERTENSION 08/18/2018 JOSE GARZA Ot J44.9 CHRONIC OBSTRUCTIVE PULMONARY DISEASE, U 08/18/2018 KAYLAJOSE Ot Z45.2 ENCOUNTER FOR ADJUSTMENT AND MANAGEMENT 08/18/2018 JOSE GARZA Ot 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 08/18/2018 JOSE GARZA Ot Z86.2 PRSNL HISTORY OF DIS OF THE BLD/BLD-FORM 08/18/2018 JOSE GARZA Ot Z86.711 PERSONAL HISTORY OF PULMONARY EMBOLISM 08/18/2018 JOSE GARZA Ot Z86.718 PERSONAL HISTORY OF OTHER VENOUS THROMBO 09/14/2018 JOSE GARZA Ot D50.0 IRON DEFICIENCY ANEMIA SECONDARY TO BLOO 09/14/2018 JOSE GARZA Lonnie Ot 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2 ENCOUNTER FOR ADJUSTMENT AND MANAGEMENT 09/14/2018 JOSE GARZA Lonnie Ot 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 09/14/2018 KAYLA GREYSONDONELL Lonnie Ot Z86.2 PRSNL HISTORY OF DIS OF THE BLD/BLD-FORM 09/14/2018 KAYLA GREYSONDONELL Fleming Ot Z86.711 PERSONAL HISTORY OF PULMONARY EMBOLISM 09/14/2018 KAYLAJOSE Ot Z86.718 PERSONAL HISTORY OF OTHER VENOUS THROMBO 09/18/2018 MIKAL BRUNNER DO Ot 285. 9 ANEMIA NOS 09/18/2018 MIKAL BRUNNER DO Ot 305. 1 TOBACCO USE DISORDER 09/18/2018 MIKAL BRUNNER DO Ot 327. 23 OBSTRUCTIVE SLEEP APNEA (ADULT) (PEDIATR 09/18/2018 MIKAL BRUNNER DO Ot 493. 20 CHRONIC OBSTRUCTIVE ASTHMA, NOS 09/18/2018 MIKAL BRUNNER DO Ot 710. 0 SYST LUPUS ERYTHEMATOSIS 09/18/2018 MIKAL BRUNNER DO Ot 716. 90 ARTHROPATHY NOS-UNSPEC 09/18/2018 MIKAL BRUNNER DO Ot 786. 05 SHORTNESS OF BREATH 09/18/2018 RADHA POLLARD, HAZEL Fleming Ot 728.85 SPASM OF MUSCLE 09/18/2018 GABY POLLARD, CANDE Gibbs Ot 724. 2 LUMBAGO 09/18/2018 CHACKO, HILAH S [employer]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 Ot 280.9 IRON DEFIC ANEMIA NOS 09/18/2018 RICARDO CHACKO CAR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 Ot 585.3 CHRONIC KIDNEY DISEASE, STAGE III (MODER 09/18/2018 RICARDO CHACKOP Ot 795.79 OTH AND UNSPEC NONSPECIFIC IMMUNOLOGICAL 09/18/2018 RICARDO CHACKO CAR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 Ot V12.51 HX-VENOUS THROMBOSIS EMBOLISM 09/18/2018 RICARDO CHACKOP Ot V12.55 PERSONAL HISTORY OF PULMONARY EMBOLISM 09/18/2018 RICARDO CHACKOP Ot V58.69 OTH MED,LT,CURRENT USE 09/18/2018 RADHA POLLARD, HAZEL Fleming Ot 790 .5 ABN SERUM ENZY LEVEL NEC 09/18/2018 RADHA POLLARD, HAZEL Fleming Ot 599 .0 URIN TRACT INFECTION NOS 09/18/2018 MONICA POLLARD, MAI S Ot 285.9 ANEMIA NOS 09/18/2018 DANIEL PORTER DO C Ot M51.37 OTHER INTERVERTEBRAL DISC DEGENERATION, 09/18/2018 RICARDO CHACKO CAR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 Ot E03.9 HYPOTHYROIDISM, UNSPECIFIED 09/18/2018 RICARDO CHACKO CARGO SERVICES COORDINATOR Ot E11.9 TYPE 2 DIABETES MELLITUS WITHOUT COMPLIC 09/18/2018 RICARDO CHACKO CARGO SERVICES COORDINATOR Ot F17.200 NICOTINE DEPENDENCE, UNSPECIFIED, UNCOMP 09/18/2018 RICARDO CHACKO CARGO SERVICES COORDINATOR Ot F32.9 MAJOR DEPRESSIVE DISORDER, SINGLE EPISOD 09/18/2018 RICARDO CHACKO CARGO SERVICES COORDINATOR Ot G47.33 OBSTRUCTIVE SLEEP APNEA (ADULT) (PEDIATR 09/18/2018 RICARDO CHACKOP Ot I 10 ESSENTIAL (PRIMARY) HYPERTENSION 09/18/2018 RICARDO CHACKO CARGO SERVICES COORDINATOR Ot J44.9 CHRONIC OBSTRUCTIVE PULMONARY DISEASE, U 09/18/2018 RICARDO CHACKO CARGO SERVICES COORDINATOR Ot M32.10 SYSTEMIC LUPUS ERYTHEMATOSUS, ORGAN OR S 09/18/2018 RICARDO CHACKO CARGO SERVICES COORDINATOR Ot Z79.01 PRISON (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 OF ANTICOAGULANT 09/18/2018 RICARDO CHACKO CARGO SERVICES COORDINATOR Ot Z86.2 PRSNL HISTORY OF DIS OF THE BLD/BLD-FORM 09/18/2018 RICARDO CHACKOP Ot Z86.711 PERSONAL HISTORY OF PULMONARY EMBOLISM 09/18/2018 RICARDO CHACKO CARGO SERVICES COORDINATOR Ot Z86.718 PERSONAL HISTORY OF OTHER VENOUS THROMBO 09/18/2018 MILEY SANCHEZ CARGO SERVICES COORDINATOR Ot M46.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, THORACIC REGION 09/18/2018 JOSE GARZA Lonnie Ot D68.8 OTHER SPECIFIED COAGULATION DEFECTS 09/18/2018 RICARDO CHACKO CARGO SERVICES COORDINATOR Ot N 63 UNSPECIFIED LUMP IN BREAST 09/18/2018 MIKAL BRUNNER DO Ot E66. 9 OBESITY, UNSPECIFIED 09/18/2018 MIKAL BRUNNER DO Ot J44. 9 CHRONIC OBSTRUCTIVE PULMONARY DISEASE, U 09/18/2018 MIKAL BRUNNER DO Ot M32. 9 SYSTEMIC LUPUS ERYTHEMATOSUS, UNSPECIFIE 09/18/2018 MIKAL BRUNNER DO Ot N63 UNSPECIFIED LUMP IN BREAST 09/18/2018 MIKAL BRUNNER DO Ot R06. 02 SHORTNESS OF BREATH 09/18/2018 MIKAL BRUNNER DO Ot Z72. 0 TOBACCO USE 09/18/2018 MANA DUENAS APRN Ot J44.9 CHRONIC OBSTRUCTIVE PULMONARY DISEASE, U 09/18/2018 MANA DUENAS APRN Ot J96.20 ACUTE AND CHR RESP FAILURE, UNSP W HYPOX 09/18/2018 MANA DUENAS APRN Ot Z72.0 TOBACCO USE 09/18/2018 MAI EDWARDS MD Ot F17.210 NICOTINE DEPENDENCE, CIGARETTES, UNCOMPL 09/18/2018 MAI EDWARDS MD Ot G62. 9 POLYNEUROPATHY, UNSPECIFIED 09/18/2018 MAI EDWARDS MD Ot G89. 4 CHRONIC PAIN SYNDROME 09/18/2018 MAI EDWARDS MD Ot J44. 9 CHRONIC OBSTRUCTIVE PULMONARY DISEASE, U 09/18/2018 MAI EDWARDS MD Ot M25.519 PAIN IN UNSPECIFIED SHOULDER 09/18/2018 MAI EDWARDS MD Ot R10. 9 UNSPECIFIED ABDOMINAL PAIN 09/18/2018 MAI EDWARDS MD Ot Z79.891 PRISON (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 OF OPIATE ANALGE 09/18/2018 MANA DUENAS APRN Ot G47.33 OBSTRUCTIVE SLEEP APNEA (ADULT) (PEDIATR 09/18/2018 MANA DUENAS APRN Ot I82.819 EMBOLISM AND THROMBOSIS OF SUPERFICIAL V 09/18/2018 MANA DUENAS APRN Ot J44.1 CHRONIC OBSTRUCTIVE PULMONARY DISEASE W 09/18/2018 YULISSAGISELLEMANA Indra PSYCHOLOGIST EXPERIMENTAL Ot J96.20 ACUTE AND CHR RESP FAILURE, UNSP W HYPOX 09/18/2018 YULISSAGISELLE ORTEGAINE E PSYCHOLOGIST EXPERIMENTAL Ot M32.9 SYSTEMIC LUPUS ERYTHEMATOSUS, UNSPECIFIE 09/18/2018 YULISSAGISELLEMANA E PSYCHOLOGIST EXPERIMENTAL Ot R63.4 ABNORMAL WEIGHT LOSS 09/18/2018 YULISSA MANA E PSYCHOLOGIST EXPERIMENTAL Ot Z72.0 TOBACCO USE 09/18/2018 YULISSAGISELLE ORTEGAINE E PSYCHOLOGIST EXPERIMENTAL Ot D50.9 IRON DEFICIENCY ANEMIA, UNSPECIFIED 09/18/2018 YULISSA MANA E PSYCHOLOGIST EXPERIMENTAL Ot G47.33 OBSTRUCTIVE SLEEP APNEA (ADULT) (PEDIATR 09/18/2018 YULISASMANA ORTEGA PSYCHOLOGIST EXPERIMENTAL Ot J44.1 CHRONIC OBSTRUCTIVE PULMONARY DISEASE W 09/18/2018 YULISSAGISELLEMANA Indra PSYCHOLOGIST EXPERIMENTAL Ot J96.20 ACUTE AND CHR RESP FAILURE, UNSP W HYPOX 09/18/2018 YULISSAGISELLE ORTEGAINE Indra PSYCHOLOGIST EXPERIMENTAL Ot M32.9 SYSTEMIC LUPUS ERYTHEMATOSUS, UNSPECIFIE 09/18/2018 YULISSAMANA ORTEGA PSYCHOLOGIST EXPERIMENTAL Ot R63.4 ABNORMAL WEIGHT LOSS 09/18/2018 YULISSAMANA ORTEGA PSYCHOLOGIST EXPERIMENTAL Ot Z72.0 TOBACCO USE 09/18/2018 KINGS POLLARD, ADAM Ot N20. 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 09/18/2018 JOSE GARZA Ot E03.9 HYPOTHYROIDISM, UNSPECIFIED 09/18/2018 JOSE GARZA Ot E11.9 TYPE 2 DIABETES MELLITUS WITHOUT COMPLIC 09/18/2018 JOSE GARZA Ot F17.200 NICOTINE DEPENDENCE, UNSPECIFIED, UNCOMP 09/18/2018 JOSE GARZA Ot F32.9 MAJOR DEPRESSIVE DISORDER, SINGLE EPISOD 09/18/2018 JOSE GARZA Ot G47.33 OBSTRUCTIVE SLEEP APNEA (ADULT) (PEDIATR 09/18/2018 JOSE GARZA Ot I10 ESSENTIAL (PRIMARY) HYPERTENSION 09/18/2018 JOSE GARZA Ot J44.9 CHRONIC OBSTRUCTIVE PULMONARY DISEASE, U 09/18/2018 KAYLA JOSE Fleming Ot Z45.2 ENCOUNTER FOR ADJUSTMENT AND MANAGEMENT 09/18/2018 KAYLA, JOSE Fleming Ot 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 09/18/2018 KAYLAJOSE N Ot Z86.2 PRSNL HISTORY OF DIS OF THE BLD/BLD-FORM 09/18/2018 JOSE GARZA N Ot Z86.711 PERSONAL HISTORY OF PULMONARY EMBOLISM 09/18/2018 JOSE GARZA Ot Z86.718 PERSONAL HISTORY OF OTHER VENOUS THROMBO 09/20/2018 JOSE GARZA N Ot D50.0 IRON DEFICIENCY ANEMIA SECONDARY TO BLOO 09/20/2018 JOSE GARZA N Ot 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 09/20/2018 JOSE GARZA N Ot E03.9 HYPOTHYROIDISM, UNSPECIFIED 09/20/2018 JOSE GARZA N Ot E11.9 TYPE 2 DIABETES MELLITUS WITHOUT COMPLIC 09/20/2018 JOSE GARZA Ot F17.200 NICOTINE DEPENDENCE, UNSPECIFIED, UNCOMP 09/20/2018 JOSE GARZA Ot F32.9 MAJOR DEPRESSIVE DISORDER, SINGLE EPISOD 09/20/2018 JOSE GARZA Ot G47.33 OBSTRUCTIVE SLEEP APNEA (ADULT) (PEDIATR 09/20/2018 JOSE GARZA Ot I10 ESSENTIAL (PRIMARY) HYPERTENSION 09/20/2018 JOSE GARZA Ot J44.9 CHRONIC OBSTRUCTIVE PULMONARY DISEASE, U 09/20/2018 KAYLAJOSE Ot Z45.2 ENCOUNTER FOR ADJUSTMENT AND MANAGEMENT 09/20/2018 JOSE GARZA Ot 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 09/20/2018 JOSE GARZA N Ot Z86.2 PRSNL HISTORY OF DIS OF THE BLD/BLD-FORM 09/20/2018 JOSE GARZA Ot Z86.711 PERSONAL HISTORY OF PULMONARY EMBOLISM 09/20/2018 JOSE GARZA Ot Z86.718 PERSONAL HISTORY OF OTHER VENOUS THROMBO 09/22/2018 JOSE GARZA N Ot D50.0 IRON DEFICIENCY ANEMIA SECONDARY TO BLOO 09/22/2018 JOSE GARZA N Ot 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 09/22/2018 JOSE GARZA N Ot E03.9 HYPOTHYROIDISM, UNSPECIFIED 09/22/2018 KAYLA JOSE Fleming Ot E11.9 TYPE 2 DIABETES MELLITUS WITHOUT COMPLIC 09/22/2018 KAYLA GREYSONDONELL Lonnie Ot F17.200 NICOTINE DEPENDENCE, UNSPECIFIED, UNCOMP 09/22/2018 KAYLA GREYSONDONELL Lonnie Ot F32.9 MAJOR DEPRESSIVE DISORDER, SINGLE EPISOD 09/22/2018 JOSE GARZA Lonnie Ot G47.33 OBSTRUCTIVE SLEEP APNEA (ADULT) (PEDIATR 09/22/2018 KAYLA JOSE Fleming Ot I10 ESSENTIAL (PRIMARY) HYPERTENSION 09/22/2018 KAYLA JOSE Fleming Ot J44.9 CHRONIC OBSTRUCTIVE PULMONARY DISEASE, U 09/22/2018 KAYLA JOSE Fleming Ot Z45.2 ENCOUNTER FOR ADJUSTMENT AND MANAGEMENT 09/22/2018 KAYLA JOSE Fleming Ot 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 09/22/2018 KAYLAJOSE Ot Z86.2 PRSNL HISTORY OF DIS OF THE BLD/BLD-FORM 09/22/2018 KAYLAJOSE Ot Z86.711 PERSONAL HISTORY OF PULMONARY EMBOLISM 09/22/2018 JOSE GARZA Ot Z86.718 PERSONAL HISTORY OF OTHER VENOUS THROMBO 09/25/2018 JIM AMAYA Ot R22.1 LOCALIZED SWELLING, MASS AND LUMP, NECK 09/26/2018 MIKAL BRUNNER DO Ot 285. 9 ANEMIA NOS 09/26/2018 MIKAL BRUNNER DO Ot 305. 1 TOBACCO USE DISORDER 09/26/2018 MIKAL BRUNNER DO Ot 327. 23 OBSTRUCTIVE SLEEP APNEA (ADULT) (PEDIATR 09/26/2018 MIKAL BRUNNER DO Ot 493. 20 CHRONIC OBSTRUCTIVE ASTHMA, NOS 09/26/2018 MIKAL BRUNNER DO Ot 710. 0 SYST LUPUS ERYTHEMATOSIS 09/26/2018 MIKAL BRUNNER DO Ot 716. 90 ARTHROPATHY NOS-UNSPEC 09/26/2018 MIKAL BRUNNER DO Ot 786. 05 SHORTNESS OF BREATH 09/26/2018 RADHA POLLARD, HAZEL Fleming Ot 728.85 SPASM OF MUSCLE 09/26/2018 GABY POLLARD, CANDE Gibbs Ot 724. 2 LUMBAGO 09/26/2018 RICARDO CHACKO CARGO SERVICES COORDINATOR Ot 280.9 IRON DEFIC ANEMIA NOS 09/26/2018 RICARDO CHACKO CARGO SERVICES COORDINATOR Ot 585.3 CHRONIC KIDNEY DISEASE, STAGE III (MODER 09/26/2018 RICARDO CHACKOP Ot 795.79 OTH AND UNSPEC NONSPECIFIC IMMUNOLOGICAL 09/26/2018 RICARDO CHACKO CARGO SERVICES COORDINATOR Ot V12.51 HX-VENOUS THROMBOSIS EMBOLISM 09/26/2018 RICARDO CHACKO CARGO SERVICES COORDINATOR Ot V12.55 PERSONAL HISTORY OF PULMONARY EMBOLISM 09/26/2018 RICARDO CHACKOP Ot V58.69 OTH MED,LT,CURRENT USE 09/26/2018 RADHA POLLARD, HAZEL Fleming Ot 790 .5 ABN SERUM ENZY LEVEL NEC 09/26/2018 RADHA POLLARD, HAZEL Fleming Ot 599 .0 URIN TRACT INFECTION NOS 09/26/2018 MONICA POLLARD, MAI S Ot 285.9 ANEMIA NOS 09/26/2018 DANIEL PORTER DO Ot M51.37 OTHER INTERVERTEBRAL DISC DEGENERATION, 09/26/2018 RICARDO CHACKO CARGO SERVICES COORDINATOR Ot E03.9 HYPOTHYROIDISM, UNSPECIFIED 09/26/2018 RICARDO CHACKO CARGO SERVICES COORDINATOR Ot E11.9 TYPE 2 DIABETES MELLITUS WITHOUT COMPLIC 09/26/2018 RICARDO CHACKO CARGO SERVICES COORDINATOR Ot F17.200 NICOTINE DEPENDENCE, UNSPECIFIED, UNCOMP 09/26/2018 RICARDO CHACKO CARGO SERVICES COORDINATOR Ot F32.9 MAJOR DEPRESSIVE DISORDER, SINGLE EPISOD 09/26/2018 RICARDO CHACKO CARGO SERVICES COORDINATOR Ot G47.33 OBSTRUCTIVE SLEEP APNEA (ADULT) (PEDIATR 09/26/2018 RICARDO CHACKO CARGO SERVICES COORDINATOR Ot I 10 ESSENTIAL (PRIMARY) HYPERTENSION 09/26/2018 RICARDO CHACKO CARGO SERVICES COORDINATOR Ot J44.9 CHRONIC OBSTRUCTIVE PULMONARY DISEASE, U 09/26/2018 RICARDO CHACKO CARGO SERVICES COORDINATOR Ot M32.10 SYSTEMIC LUPUS ERYTHEMATOSUS, ORGAN OR S 09/26/2018 RICARDO CHACKO CARGO SERVICES COORDINATOR Ot 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 09/26/2018 RICARDO CHACKO CARGO SERVICES COORDINATOR Ot Z86.2 PRSNL HISTORY OF DIS OF THE BLD/BLD-FORM 09/26/2018 RICARDO CHACKO CARGO SERVICES COORDINATOR Ot Z86.711 PERSONAL HISTORY OF PULMONARY EMBOLISM 09/26/2018 RICARDO CHACKO CARGO SERVICES COORDINATOR Ot Z86.718 PERSONAL HISTORY OF OTHER VENOUS THROMBO 09/26/2018 DANIEL, MILEY K CARGO SERVICES COORDINATOR Ot M46.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, THORACIC REGION 09/26/2018 JOSE GARZA Lonnie Ot D68.8 OTHER SPECIFIED COAGULATION DEFECTS 09/26/2018 CHACKORICARDO Alexandra CARGO SERVICES COORDINATOR Ot N 63 UNSPECIFIED LUMP IN BREAST 09/26/2018 MIKAL BRUNNER DO Ot E66. 9 OBESITY, UNSPECIFIED 09/26/2018 MIKAL BRUNNER DO Ot J44. 9 CHRONIC OBSTRUCTIVE PULMONARY DISEASE, U 09/26/2018 MIKAL BRUNNER DO Ot M32. 9 SYSTEMIC LUPUS ERYTHEMATOSUS, UNSPECIFIE 09/26/2018 MIKAL BRUNNER DO Ot N63 UNSPECIFIED LUMP IN BREAST 09/26/2018 MIKAL BRUNNER DO Ot R06. 02 SHORTNESS OF BREATH 09/26/2018 MIKAL BRUNNER DO Ot Z72. 0 TOBACCO USE 09/26/2018 MANA DUENAS APRN Ot J44.9 CHRONIC OBSTRUCTIVE PULMONARY DISEASE, U 09/26/2018 MANA DUENAS APRN Ot J96.20 ACUTE AND CHR RESP FAILURE, UNSP W HYPOX 09/26/2018 MANA DUENAS APRN Ot Z72.0 TOBACCO USE 09/26/2018 MAI EDWARDS MD Ot F17.210 NICOTINE DEPENDENCE, CIGARETTES, UNCOMPL 09/26/2018 MAI EDWARDS MD Ot G62. 9 POLYNEUROPATHY, UNSPECIFIED 09/26/2018 MAI EDWARDS MD Ot G89. 4 CHRONIC PAIN SYNDROME 09/26/2018 MAI EDWARDS MD Ot J44. 9 CHRONIC OBSTRUCTIVE PULMONARY DISEASE, U 09/26/2018 MAI EDWARDS MD Ot M25.519 PAIN IN UNSPECIFIED SHOULDER 09/26/2018 MAI EDWARDS MD Ot R10. 9 UNSPECIFIED ABDOMINAL PAIN 09/26/2018 MAI EDWARDS MD Ot Z79.891 RESIDENTIAL TEAM LEADER (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 OF OPIATE ANALGE 09/26/2018 MANA DUENAS APRN Ot G47.33 OBSTRUCTIVE SLEEP APNEA (ADULT) (PEDIATR 09/26/2018 MANA DUENAS APRN Ot I82.819 EMBOLISM AND THROMBOSIS OF SUPERFICIAL V 09/26/2018 MANA DUENAS APRN Ot J44.1 CHRONIC OBSTRUCTIVE PULMONARY DISEASE W 09/26/2018 MANA DUENAS APRN Ot J96.20 ACUTE AND CHR RESP FAILURE, UNSP W HYPOX 09/26/2018 MANA DUENAS PSYCHOLOGIST EXPERIMENTAL Ot M32.9 SYSTEMIC LUPUS ERYTHEMATOSUS, UNSPECIFIE 09/26/2018 MANA DUENAS PSYCHOLOGIST EXPERIMENTAL Ot R63.4 ABNORMAL WEIGHT LOSS 09/26/2018 MANA DUENAS PSYCHOLOGIST EXPERIMENTAL Ot Z72.0 TOBACCO USE 09/26/2018 MANA DUENAS PSYCHOLOGIST EXPERIMENTAL Ot D50.9 IRON DEFICIENCY ANEMIA, UNSPECIFIED 09/26/2018 MANA DUENAS APRN Ot G47.33 OBSTRUCTIVE SLEEP APNEA (ADULT) (PEDIATR 09/26/2018 MANA DUENAS APRN Ot J44.1 CHRONIC OBSTRUCTIVE PULMONARY DISEASE W 09/26/2018 MANA DUENAS APRN Ot J96.20 ACUTE AND CHR RESP FAILURE, UNSP W HYPOX 09/26/2018 MANA DUENAS APRN Ot M32.9 SYSTEMIC LUPUS ERYTHEMATOSUS, UNSPECIFIE 09/26/2018 MANA DUENAS APRN Ot R63.4 ABNORMAL WEIGHT LOSS 09/26/2018 MANA DUENAS APRN Ot Z72.0 TOBACCO USE 09/26/2018 ADAM MALDONADO MD Ot N20. 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 09/26/2018 JOSE GARZA Ot E03.9 HYPOTHYROIDISM, UNSPECIFIED 09/26/2018 JOSE GARZA Ot E11.9 TYPE 2 DIABETES MELLITUS WITHOUT COMPLIC 09/26/2018 JOSE GARZA Ot F17.200 NICOTINE DEPENDENCE, UNSPECIFIED, UNCOMP 09/26/2018 JOSE GARZA Ot F32.9 MAJOR DEPRESSIVE DISORDER, SINGLE EPISOD 09/26/2018 JOSE GARZA Ot G47.33 OBSTRUCTIVE SLEEP APNEA (ADULT) (PEDIATR 09/26/2018 JOSE GARZA Ot I10 ESSENTIAL (PRIMARY) HYPERTENSION 09/26/2018 JOSE GARZA Ot J44.9 CHRONIC OBSTRUCTIVE PULMONARY DISEASE, U 09/26/2018 JOSE GARZA Ot Z45.2 ENCOUNTER FOR ADJUSTMENT AND MANAGEMENT 09/26/2018 JOSE GARZA Ot 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 09/26/2018 JOSE GARZA Ot Z86.2 PRSNL HISTORY OF DIS OF THE BLD/BLD-FORM 09/26/2018 JOSE GARZA Ot Z86.711 PERSONAL HISTORY OF PULMONARY EMBOLISM 09/26/2018 JOSE GARZA Ot Z86.718 PERSONAL HISTORY OF OTHER VENOUS THROMBO 09/26/2018 JIM AMAYA Ot R22.1 LOCALIZED SWELLING, MASS AND LUMP, NECK 09/28/2018 JIM AMAYAP Ot I1 0 ESSENTIAL (PRIMARY) HYPERTENSION 10/08/2018 EVERETT ERNSTP Ot E03.9 HYPOTHYROIDISM, UNSPECIFIED 10/08/2018 SUJATA EVERETT CARGO SERVICES COORDINATOR Ot E11.40 TYPE 2 DIABETES MELLITUS WITH DIABETIC N 10/08/2018 SUJATA EVERETT CARGO SERVICES COORDINATOR Ot E11.51 TYPE 2 DIABETES W DIABETIC PERIPHERAL AN 10/08/2018 EVERETT ERNST CARGO SERVICES COORDINATOR Ot E78.00 PURE HYPERCHOLESTEROLEMIA, UNSPECIFIED 10/08/2018 SUJATA EVERETT CARGO SERVICES COORDINATOR Ot F32.9 MAJOR DEPRESSIVE DISORDER, SINGLE EPISOD 10/08/2018 SUJATA EVERETT CARGO SERVICES COORDINATOR Ot F41.9 ANXIETY DISORDER, UNSPECIFIED 10/08/2018 SUJATA EVERETT CARGO SERVICES COORDINATOR Ot I10 ESSENTIAL (PRIMARY) HYPERTENSION 10/08/2018 SUJATA EVERETT CARGO SERVICES COORDINATOR Ot J44.9 CHRONIC OBSTRUCTIVE PULMONARY DISEASE, U 10/08/2018 SUJATA EVERETT CARGO SERVICES COORDINATOR Ot K21.9 GASTRO-ESOPHAGEAL REFLUX DISEASE WITHOUT 10/08/2018 SUJATA EVERETT CARGO SERVICES COORDINATOR Ot L02.11 CUTANEOUS ABSCESS OF NECK 10/08/2018 SUJATA EVERETT CARGO SERVICES COORDINATOR Ot M32.9 SYSTEMIC LUPUS ERYTHEMATOSUS, UNSPECIFIE 10/08/2018 SUJATA EVERETT CARGO SERVICES COORDINATOR Ot R22.1 LOCALIZED SWELLING, MASS AND LUMP, NECK 10/08/2018 EVERETT ERNST CARGO SERVICES COORDINATOR Ot Z82.49 FAMILY HX OF ISCHEM HEART DIS AND OTH DI 10/08/2018 EVERETT ERNST CARGO SERVICES COORDINATOR Ot Z86.711 PERSONAL HISTORY OF PULMONARY EMBOLISM 10/08/2018 EVERETT ERNST CARGO SERVICES COORDINATOR Ot Z86.718 PERSONAL HISTORY OF OTHER VENOUS THROMBO 10/08/2018 EVERETT ERNSTP Ot Z87.442 PERSONAL HISTORY OF URINARY CALCULI 10/08/2018 EVERETT ERNST Ot Z88.5 ALLERGY STATUS TO NARCOTIC AGENT STATUS 10/08/2018 EVERETT ERNSTP Ot Z88.6 ALLERGY STATUS TO ANALGESIC AGENT STATUS 10/08/2018 EVERETT ERNST Ot Z88.8 ALLERGY STATUS TO OTH DRUG/MEDS/BIOL SUB 10/08/2018 EVERETT ERNSTP Ot Z90.49 ACQUIRED ABSENCE OF OTHER SPECIFIED PART 10/08/2018 EVERETT ERNSTP Ot Z90.710 ACQUIRED ABSENCE OF BOTH CERVIX AND UTER 10/08/2018 EVERETT ERNSTP Ot Z95.5 PRESENCE OF CORONARY ANGIOPLASTY IMPLANT 10/10/2018 EVERETT ERNSTP Ot E03.9 HYPOTHYROIDISM, UNSPECIFIED 10/10/2018 EVERETT ERNSTP Ot E11.40 TYPE 2 DIABETES MELLITUS WITH DIABETIC N 10/10/2018 EVERETT ERNSTP Ot E11.51 TYPE 2 DIABETES W DIABETIC PERIPHERAL AN 10/10/2018 EVERETT ERNSTP Ot E78.00 PURE HYPERCHOLESTEROLEMIA, UNSPECIFIED 10/10/2018 EVERETT ERNSTP Ot F32.9 MAJOR DEPRESSIVE DISORDER, SINGLE EPISOD 10/10/2018 EVERETT ERNSTP Ot F41.9 ANXIETY DISORDER, UNSPECIFIED 10/10/2018 EVERETT ERNST CARGO SERVICES COORDINATOR Ot I10 ESSENTIAL (PRIMARY) HYPERTENSION 10/10/2018 EVERETT ERNSTP Ot J44.9 CHRONIC OBSTRUCTIVE PULMONARY DISEASE, U 10/10/2018 EVERETT ERNSTP Ot K21.9 GASTRO-ESOPHAGEAL REFLUX DISEASE WITHOUT 10/10/2018 EVERETT ERNSTP Ot L02.11 CUTANEOUS ABSCESS OF NECK 10/10/2018 EVERETT ERNSTP Ot M32.9 SYSTEMIC LUPUS ERYTHEMATOSUS, UNSPECIFIE 10/10/2018 EVERETT ERNSTP Ot R22.1 LOCALIZED SWELLING, MASS AND LUMP, NECK 10/10/2018 EVERETT ERNSTP Ot Z82.49 FAMILY HX OF ISCHEM HEART DIS AND OTH DI 10/10/2018 EVERETT ERNSTP Ot Z86.711 PERSONAL HISTORY OF PULMONARY EMBOLISM 10/10/2018 EVERETT ERNSTP Ot Z86.718 PERSONAL HISTORY OF OTHER VENOUS THROMBO 10/10/2018 EVERETT ERNSTP Ot Z87.442 PERSONAL HISTORY OF URINARY CALCULI 10/10/2018 EVERETT ERNST Ot Z88.5 ALLERGY STATUS TO NARCOTIC AGENT STATUS 10/10/2018 EVERETT ERNST Ot Z88.6 ALLERGY STATUS TO ANALGESIC AGENT STATUS 10/10/2018 EVERETT ERNST Ot Z88.8 ALLERGY STATUS TO OTH DRUG/MEDS/BIOL SUB 10/10/2018 SUJATAEVERETT Burrell Ot Z90.49 ACQUIRED ABSENCE OF OTHER SPECIFIED PART 10/10/2018 EVERETT ERNST Ot Z90.710 ACQUIRED ABSENCE OF BOTH CERVIX AND UTER 10/10/2018 EVERETT ERNST Ot Z95.5 PRESENCE OF CORONARY ANGIOPLASTY IMPLANT 10/10/2018 MIKAL BRUNNER DO Ot 285. 9 ANEMIA NOS 10/10/2018 MIKAL BRUNNER DO Ot 305. 1 TOBACCO USE DISORDER 10/10/2018 MIKAL BRUNNER DO Ot 327. 23 OBSTRUCTIVE SLEEP APNEA (ADULT) (PEDIATR 10/10/2018 MIKAL BRUNNER DO Ot 493. 20 CHRONIC OBSTRUCTIVE ASTHMA, NOS 10/10/2018 MIKAL BRUNNER DO Ot 710. 0 SYST LUPUS ERYTHEMATOSIS 10/10/2018 MIKAL BRUNNER DO Ot 716. 90 ARTHROPATHY NOS-UNSPEC 10/10/2018 MIKAL BRUNNER DO Ot 786. 05 SHORTNESS OF BREATH 10/10/2018 RADHA POLLARD, HAZEL Fleming Ot 728.85 SPASM OF MUSCLE 10/10/2018 GABY POLLARD, CANDE Gibbs Ot 724. 2 LUMBAGO 10/10/2018 RICARDO CHACKOP Ot 280.9 IRON DEFIC ANEMIA NOS 10/10/2018 RICARDO CHACKOP Ot 585.3 CHRONIC KIDNEY DISEASE, STAGE III (MODER 10/10/2018 RICARDO CHACKOP Ot 795.79 OTH AND UNSPEC NONSPECIFIC IMMUNOLOGICAL 10/10/2018 RICARDO CHACKOP Ot V12.51 HX-VENOUS THROMBOSIS EMBOLISM 10/10/2018 RICARDO CHACKOP Ot V12.55 PERSONAL HISTORY OF PULMONARY EMBOLISM 10/10/2018 RICARDO CHACKOP Ot V58.69 OTH MED,LT,CURRENT USE 10/10/2018 HAZEL GARCIA MD Ot 790 .5 ABN SERUM ENZY LEVEL NEC 10/10/2018 RADHA MD, HAZEL N Ot 599 .0 URIN TRACT INFECTION NOS 10/10/2018 MONICA POLLARD, MAI S Ot 285.9 ANEMIA NOS 10/10/2018 DANIEL PORTER DO Ot M51.37 OTHER INTERVERTEBRAL DISC DEGENERATION, 10/10/2018 RICARDO CHACKOP Ot E03.9 HYPOTHYROIDISM, UNSPECIFIED 10/10/2018 RICARDO CHACKO CARGO SERVICES COORDINATOR Ot E11.9 TYPE 2 DIABETES MELLITUS WITHOUT COMPLIC 10/10/2018 RICARDO CHACKOP Ot F17.200 NICOTINE DEPENDENCE, UNSPECIFIED, UNCOMP 10/10/2018 RICARDO CHACKOP Ot F32.9 MAJOR DEPRESSIVE DISORDER, SINGLE EPISOD 10/10/2018 RICARDO CHACKOP Ot G47.33 OBSTRUCTIVE SLEEP APNEA (ADULT) (PEDIATR 10/10/2018 RICARDO CHACKOP Ot I 10 ESSENTIAL (PRIMARY) HYPERTENSION 10/10/2018 RICARDO CHACKOP Ot J44.9 CHRONIC OBSTRUCTIVE PULMONARY DISEASE, U 10/10/2018 RICARDO CHACKOP Ot M32.10 SYSTEMIC LUPUS ERYTHEMATOSUS, ORGAN OR S 10/10/2018 RICARDO CHACKO [employer] SERVICES COORDINATOR Ot Z79.01 PRISON (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 OF ANTICOAGULANT 10/10/2018 RICARDO CHACKOP Ot Z86.2 PRSNL HISTORY OF DIS OF THE BLD/BLD-FORM 10/10/2018 RICARDO CHACKO [employer] SERVICES COORDINATOR Ot Z86.711 PERSONAL HISTORY OF PULMONARY EMBOLISM 10/10/2018 RICARDO CHACKO [employer] SERVICES COORDINATOR Ot Z86.718 PERSONAL HISTORY OF OTHER VENOUS THROMBO 10/10/2018 MILEY SANCHEZP Ot M46.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, THORACIC REGION 10/10/2018 JOSE GARZA Ot D68.8 OTHER SPECIFIED COAGULATION DEFECTS 10/10/2018 RICARDO CHACKOP Ot N 63 UNSPECIFIED LUMP IN BREAST 10/10/2018 MIKAL BRUNNER DO Ot E66. 9 OBESITY, UNSPECIFIED 10/10/2018 MIKAL BRUNNER DO Ot J44. 9 CHRONIC OBSTRUCTIVE PULMONARY DISEASE, U 10/10/2018 MIKAL BRUNNER DO Ot M32. 9 SYSTEMIC LUPUS ERYTHEMATOSUS, UNSPECIFIE 10/10/2018 MIKAL BRUNNER DO, Ot N63 UNSPECIFIED LUMP IN BREAST 10/10/2018 MIKAL BRUNNER DO Ot R06. 02 SHORTNESS OF BREATH 10/10/2018 MIKAL BRUNNER DO Ot Z72. 0 TOBACCO USE 10/10/2018 MANA DUENAS APRN Ot J44.9 CHRONIC OBSTRUCTIVE PULMONARY DISEASE, U 10/10/2018 MANA DUENAS APRN Ot J96.20 ACUTE AND CHR RESP FAILURE, UNSP W HYPOX 10/10/2018 MANA DUENAS APRN Ot Z72.0 TOBACCO USE 10/10/2018 JERRY POLLARD, MAI Vieira Ot F17.210 NICOTINE DEPENDENCE, CIGARETTES, UNCOMPL 10/10/2018 MAI EDWARDS MD Ot G62. 9 POLYNEUROPATHY, UNSPECIFIED 10/10/2018 MAI EDWARDS MD Ot G89. 4 CHRONIC PAIN SYNDROME 10/10/2018 MAI EDWARDS MD Ot J44. 9 CHRONIC OBSTRUCTIVE PULMONARY DISEASE, U 10/10/2018 MAI EDWARDS MD Ot M25.519 PAIN IN UNSPECIFIED SHOULDER 10/10/2018 MAI EDWARDS MD Ot R10. 9 UNSPECIFIED ABDOMINAL PAIN 10/10/2018 MAI EDWARDS MD Ot Z79.891 PRISON (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 OF OPIATE ANALGE 10/10/2018 MANA DUENAS APRN Ot G47.33 OBSTRUCTIVE SLEEP APNEA (ADULT) (PEDIATR 10/10/2018 MANA DUENAS APRN Ot I82.819 EMBOLISM AND THROMBOSIS OF SUPERFICIAL V 10/10/2018 MANA DUENAS APRN Ot J44.1 CHRONIC OBSTRUCTIVE PULMONARY DISEASE W 10/10/2018 MANA DUENAS APRN Ot J96.20 ACUTE AND CHR RESP FAILURE, UNSP W HYPOX 10/10/2018 MANA DUENAS APRN Ot M32.9 SYSTEMIC LUPUS ERYTHEMATOSUS, UNSPECIFIE 10/10/2018 MANA DUENAS APRN Ot R63.4 ABNORMAL WEIGHT LOSS 10/10/2018 MANA DUENAS APRN Ot Z72.0 TOBACCO USE 10/10/2018 MANA DUENAS APRN Ot D50.9 IRON DEFICIENCY ANEMIA, UNSPECIFIED 10/10/2018 MANA DUENAS APRN Ot G47.33 OBSTRUCTIVE SLEEP APNEA (ADULT) (PEDIATR 10/10/2018 MANA DUENAS APRN Ot J44.1 CHRONIC OBSTRUCTIVE PULMONARY DISEASE W 10/10/2018 MANA DUENAS APRN Ot J96.20 ACUTE AND CHR RESP FAILURE, UNSP W HYPOX 10/10/2018 MANA DUENAS APRN Ot M32.9 SYSTEMIC LUPUS ERYTHEMATOSUS, UNSPECIFIE 10/10/2018 MANA DUENAS APRN Ot R63.4 ABNORMAL WEIGHT LOSS 10/10/2018 MANA DUENAS APRN Ot Z72.0 TOBACCO USE 10/10/2018 ADAM MALDONADO MD Ot N20. 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 10/10/2018 JOSE GARZA Ot E03.9 HYPOTHYROIDISM, UNSPECIFIED 10/10/2018 JOSE GARZA Ot E11.9 TYPE 2 DIABETES MELLITUS WITHOUT COMPLIC 10/10/2018 JOSE GARZA Ot F17.200 NICOTINE DEPENDENCE, UNSPECIFIED, UNCOMP 10/10/2018 JOSE GARZA Ot F32.9 MAJOR DEPRESSIVE DISORDER, SINGLE EPISOD 10/10/2018 JOSE GARZA Ot G47.33 OBSTRUCTIVE SLEEP APNEA (ADULT) (PEDIATR 10/10/2018 JOSE GARZA Ot I10 ESSENTIAL (PRIMARY) HYPERTENSION 10/10/2018 JOSE GARZA Ot J44.9 CHRONIC OBSTRUCTIVE PULMONARY DISEASE, U 10/10/2018 JOSE GARZA Ot Z45.2 ENCOUNTER FOR ADJUSTMENT AND MANAGEMENT 10/10/2018 JOSE GARZA Ot Z79.01 PRISON (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 OF ANTICOAGULANT 10/10/2018 JOSE GARZA Ot Z86.2 PRSNL HISTORY OF DIS OF THE BLD/BLD-FORM 10/10/2018 JOSE GARZA Ot Z86.711 PERSONAL HISTORY OF PULMONARY EMBOLISM 10/10/2018 JOSE GARZA Ot Z86.718 PERSONAL HISTORY OF OTHER VENOUS THROMBO 10/10/2018 JIM AMAYA Ot R22.1 LOCALIZED SWELLING, MASS AND LUMP, NECK 10/10/2018 JIM AMAYA Ot I1 0 ESSENTIAL (PRIMARY) HYPERTENSION 10/10/2018 JIM AMAYA Ot R22.1 LOCALIZED SWELLING, MASS AND LUMP, NECK 10/10/2018 JIM AMAYA Ot I1 0 ESSENTIAL (PRIMARY) HYPERTENSION 10/11/2018 BRANDI DIAZ DO Ot Z01.818 ENCOUNTER FOR OTHER PREPROCEDURAL EXAMIN 10/11/2018 JIM AMAYA Ot R22.1 LOCALIZED SWELLING, MASS AND LUMP, NECK 10/12/2018 BRANDI DIAZ DO Ot F17.210 NICOTINE DEPENDENCE, CIGARETTES, UNCOMPL 10/12/2018 BRANDI DIAZ DO Ot G47. 33 OBSTRUCTIVE SLEEP APNEA (ADULT) (PEDIATR 10/12/2018 BRANDI DIAZ DO Ot I12. 9 HYPERTENSIVE CHRONIC KIDNEY DISEASE W ST 10/12/2018 BRANDI DIAZ DO Ot I25. 10 ATHSCL HEART DISEASE OF [place] CORONARY 10/12/2018 BRANDI DIAZ DO Ot I73. 9 PERIPHERAL VASCULAR DISEASE, UNSPECIFIED 10/12/2018 BRANDI DIAZ DO Ot J44. 9 CHRONIC OBSTRUCTIVE PULMONARY DISEASE, U 10/12/2018 BRANDI DIAZ DO Ot K21. 9 GASTRO-ESOPHAGEAL REFLUX DISEASE WITHOUT 10/12/2018 BRANDI DIAZ DO Ot L72. 0 EPIDERMAL CYST 10/12/2018 BRANDI DIAZ DO Ot M32. 9 SYSTEMIC LUPUS ERYTHEMATOSUS, UNSPECIFIE 10/12/2018 BRANDI DIAZ DO Ot N18. 9 CHRONIC KIDNEY DISEASE, UNSPECIFIED 10/12/2018 BRANDI DIAZ DO Ot Z79. 01 RESIDENTIAL TEAM LEADER (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 OF ANTICOAGULANT 10/12/2018 BRANDI DIAZ DO Ot Z79.899 OTHER RESIDENTIAL TEAM LEADER (CURRENT) DRUG THERAPY 10/12/2018 BRANDI DIAZ DO Ot Z95. 5 PRESENCE OF CORONARY ANGIOPLASTY IMPLANT 10/14/2018 EVERETT ERNST Ot E03.9 HYPOTHYROIDISM, UNSPECIFIED 10/14/2018 EVERETT ERNST Ot E11.40 TYPE 2 DIABETES MELLITUS WITH DIABETIC N 10/14/2018 EVERETT ERNST Ot E11.51 TYPE 2 DIABETES W DIABETIC PERIPHERAL AN 10/14/2018 EVERETT ERNST Ot E78.00 PURE HYPERCHOLESTEROLEMIA, UNSPECIFIED 10/14/2018 EVERETT ERNST Ot F32.9 MAJOR DEPRESSIVE DISORDER, SINGLE EPISOD 10/14/2018 EVERETT ERNST Ot F41.9 ANXIETY DISORDER, UNSPECIFIED 10/14/2018 EVERETT ERNST Ot I10 ESSENTIAL (PRIMARY) HYPERTENSION 10/14/2018 EVERETT ERNST Ot J44.9 CHRONIC OBSTRUCTIVE PULMONARY DISEASE, U 10/14/2018 EVERETT ERNST Ot K21.9 GASTRO-ESOPHAGEAL REFLUX DISEASE WITHOUT 10/14/2018 EVERETT ERNST Ot L02.11 CUTANEOUS ABSCESS OF NECK 10/14/2018 EVERETT ERNST Ot M32.9 SYSTEMIC LUPUS ERYTHEMATOSUS, UNSPECIFIE 10/14/2018 SUJATAEVERETT Burrell Ot R22.1 LOCALIZED SWELLING, MASS AND LUMP, NECK 10/14/2018 EVERETT ERNST Ot Z82.49 FAMILY HX OF ISCHEM HEART DIS AND OTH DI 10/14/2018 EVERETT ERNST Ot Z86.711 PERSONAL HISTORY OF PULMONARY EMBOLISM 10/14/2018 EVERETT ERNST Ot Z86.718 PERSONAL HISTORY OF OTHER VENOUS THROMBO 10/14/2018 EVERETT ERNST Ot Z87.442 PERSONAL HISTORY OF URINARY CALCULI 10/14/2018 EVERETT ERNST Ot Z88.5 ALLERGY STATUS TO NARCOTIC AGENT STATUS 10/14/2018 EVERETT ERNST Ot Z88.6 ALLERGY STATUS TO ANALGESIC AGENT STATUS 10/14/2018 EVERETT ERNST Ot Z88.8 ALLERGY STATUS TO OT DRUG/MEDS/BIOL SUB 10/14/2018 EVERETT ERNST Ot Z90.49 ACQUIRED ABSENCE OF OTHER SPECIFIED PART 10/14/2018 EVERETT ERNST Ot Z90.710 ACQUIRED ABSENCE OF BOTH CERVIX AND UTER 10/14/2018 EVERETT ERNST Ot Z95.5 PRESENCE OF CORONARY ANGIOPLASTY IMPLANT 10/14/2018 BRANDI DIAZ DO Ot F17.210 NICOTINE DEPENDENCE, CIGARETTES, UNCOMPL 10/14/2018 BRANDI DIAZ DO Ot G47. 33 OBSTRUCTIVE SLEEP APNEA (ADULT) (PEDIATR 10/14/2018 BRANDI DIAZ DO Ot I12. 9 HYPERTENSIVE CHRONIC KIDNEY DISEASE W ST 10/14/2018 BRANDI DIAZ DO Ot I25. 10 ATHSCL HEART DISEASE OF [place] CORONARY 10/14/2018 BRANDI DIAZ DO Ot I73. 9 PERIPHERAL VASCULAR DISEASE, UNSPECIFIED 10/14/2018 BRANDI DIAZ DO Ot J44. 9 CHRONIC OBSTRUCTIVE PULMONARY DISEASE, U 10/14/2018 BRANDI DIAZ DO Ot K21. 9 GASTRO-ESOPHAGEAL REFLUX DISEASE WITHOUT 10/14/2018 BRANDI DIAZ DO Ot L72. 0 EPIDERMAL CYST 10/14/2018 BRANDI DIAZ DO Ot M32. 9 SYSTEMIC LUPUS ERYTHEMATOSUS, UNSPECIFIE 10/14/2018 BRANDI DIAZ DO Ot N18. 9 CHRONIC KIDNEY DISEASE, UNSPECIFIED 10/14/2018 BRANDI DIAZ DO Ot Z79. 01 PRISON (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 OF ANTICOAGULANT 10/14/2018 BRANDI DIAZ DO Ot Z79.899 OTHER PRISON (CURRENT) DRUG THERAPY 10/14/2018 BRANDI DIAZ DO Ot Z95. 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 11/22/2018 JOSE GARZA Ot E03.9 HYPOTHYROIDISM, UNSPECIFIED 11/22/2018 JOSE GARZA Ot E11.9 TYPE 2 DIABETES MELLITUS WITHOUT COMPLIC 11/22/2018 JOSE GARZA Ot F17.200 NICOTINE DEPENDENCE, UNSPECIFIED, UNCOMP 11/22/2018 JOSE GARZA Ot F32.9 MAJOR DEPRESSIVE DISORDER, SINGLE EPISOD 11/22/2018 JOSE GARZA Ot G47.33 OBSTRUCTIVE SLEEP APNEA (ADULT) (PEDIATR 11/22/2018 JOSE GARZA Ot I10 ESSENTIAL (PRIMARY) HYPERTENSION 11/22/2018 JOSE GARZA Ot J44.9 CHRONIC OBSTRUCTIVE PULMONARY DISEASE, U 11/22/2018 JOSE GARZA Ot Z45.2 ENCOUNTER FOR ADJUSTMENT AND MANAGEMENT 11/22/2018 JOSE GARZA N Ot Z79.01 PRISON (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 OF ANTICOAGULANT 11/22/2018 JOSE GARZA N Ot Z86.2 PRSNL HISTORY OF DIS OF THE BLD/BLD-FORM 11/22/2018 JOSE GARZA Ot Z86.711 PERSONAL HISTORY OF PULMONARY EMBOLISM 11/22/2018 JOSE GARZA Ot Z86.718 PERSONAL HISTORY OF OTHER VENOUS THROMBO 12/19/2018 JOSE GARZA N Ot D50.0 IRON DEFICIENCY ANEMIA SECONDARY TO BLOO 12/19/2018 JOSE GARZA N Ot 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 12/19/2018 JOSE GARZA Ot E03.9 HYPOTHYROIDISM, UNSPECIFIED 12/19/2018 JOSE GARZA N Ot E11.9 TYPE 2 DIABETES MELLITUS WITHOUT COMPLIC 12/19/2018 JOSE GARZA Ot F17.200 NICOTINE DEPENDENCE, UNSPECIFIED, UNCOMP 12/19/2018 JOSE GARZA Ot F32.9 MAJOR DEPRESSIVE DISORDER, SINGLE EPISOD 12/19/2018 JOSE GARZA Ot G47.33 OBSTRUCTIVE SLEEP APNEA (ADULT) (PEDIATR 12/19/2018 JOSE GARZA Ot I10 ESSENTIAL (PRIMARY) HYPERTENSION 12/19/2018 JOSE GARZA Ot J44.9 CHRONIC OBSTRUCTIVE PULMONARY DISEASE, U 12/19/2018 JOSE GARZA Ot Z45.2 ENCOUNTER FOR ADJUSTMENT AND MANAGEMENT 12/19/2018 JOSE GARZA Ot 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 12/19/2018 JOSE GARZA Ot Z86.2 PRSNL HISTORY OF DIS OF THE BLD/BLD-FORM 12/19/2018 JOSE GARZA Ot Z86.711 PERSONAL HISTORY OF PULMONARY EMBOLISM 12/19/2018 JOSE GARZA Ot Z86.718 PERSONAL HISTORY OF OTHER VENOUS THROMBO 12/19/2018 JOSE GARZA Ot D50.0 IRON DEFICIENCY ANEMIA SECONDARY TO BLOO 12/19/2018 JOSE GARZA N Ot 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 12/19/2018 JOSE GARZA Ot E03.9 HYPOTHYROIDISM, UNSPECIFIED 12/19/2018 JOSE GARZA N Ot E11.9 TYPE 2 DIABETES MELLITUS WITHOUT COMPLIC 12/19/2018 KAYLAJOSE N Ot F17.200 NICOTINE DEPENDENCE, UNSPECIFIED, UNCOMP 12/19/2018 KAYLAJOSE N Ot F32.9 MAJOR DEPRESSIVE DISORDER, SINGLE EPISOD 12/19/2018 KAYLAJOSE N Ot G47.33 OBSTRUCTIVE SLEEP APNEA (ADULT) (PEDIATR 12/19/2018 KAYLAJOSE N Ot I10 ESSENTIAL (PRIMARY) HYPERTENSION 12/19/2018 JOSE GARZA Ot J44.9 CHRONIC OBSTRUCTIVE PULMONARY DISEASE, U 12/19/2018 KAYLAJOSE N Ot Z45.2 ENCOUNTER FOR ADJUSTMENT AND MANAGEMENT 12/19/2018 JOSE GARZA N Ot 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 12/19/2018 JOSE GARZA N Ot Z86.2 PRSNL HISTORY OF DIS OF THE BLD/BLD-FORM 12/19/2018 JOSE GARZA Ot Z86.711 PERSONAL HISTORY OF PULMONARY EMBOLISM 12/19/2018 JOSE GARZA Ot Z86.718 PERSONAL HISTORY OF OTHER VENOUS THROMBO 12/20/2018 JOSE GARZA Ot D50.0 IRON DEFICIENCY ANEMIA SECONDARY TO BLOO 12/20/2018 JOSE GARZA N Ot 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 12/20/2018 JOSE GARZA Ot E03.9 HYPOTHYROIDISM, UNSPECIFIED 12/20/2018 JOSE GARZA N Ot E11.9 TYPE 2 DIABETES MELLITUS WITHOUT COMPLIC 12/20/2018 JOSE GARZA N Ot F17.200 NICOTINE DEPENDENCE, UNSPECIFIED, UNCOMP 12/20/2018 JOSE GARZA Ot F32.9 MAJOR DEPRESSIVE DISORDER, SINGLE EPISOD 12/20/2018 KAYLAJOSE N Ot G47.33 OBSTRUCTIVE SLEEP APNEA (ADULT) (PEDIATR 12/20/2018 KAYLAJOSE N Ot I10 ESSENTIAL (PRIMARY) HYPERTENSION 12/20/2018 JOSE GARZA N Ot J44.9 CHRONIC OBSTRUCTIVE PULMONARY DISEASE, U 12/20/2018 JOSE GARZA N Ot Z45.2 ENCOUNTER FOR ADJUSTMENT AND MANAGEMENT 12/20/2018 JOSE GARZA Ot Z79.01 PRISON (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 OF ANTICOAGULANT 12/20/2018 JOSE GARZA N Ot Z86.2 PRSNL HISTORY OF DIS OF THE BLD/BLD-FORM 12/20/2018 JOSE GARZA Ot Z86.711 PERSONAL HISTORY OF PULMONARY EMBOLISM 12/20/2018 JOSE GARZA Ot Z86.718 PERSONAL HISTORY OF OTHER VENOUS THROMBO 01/24/2019 JOSE GARZA Ot D50.0 IRON DEFICIENCY ANEMIA SECONDARY TO BLOO 01/24/2019 JOSE GARZA N Ot 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 01/24/2019 JOSE GARZA N Ot E03.9 HYPOTHYROIDISM, UNSPECIFIED 01/24/2019 JOSE GARZA N Ot E11.9 TYPE 2 DIABETES MELLITUS WITHOUT COMPLIC 01/24/2019 JOSE GARZA N Ot F17.200 NICOTINE DEPENDENCE, UNSPECIFIED, UNCOMP 01/24/2019 JOSE GARZA N Ot F32.9 MAJOR DEPRESSIVE DISORDER, SINGLE EPISOD 01/24/2019 JOSE GARZA Ot G47.33 OBSTRUCTIVE SLEEP APNEA (ADULT) (PEDIATR 01/24/2019 JOSE GARZA Ot I10 ESSENTIAL (PRIMARY) HYPERTENSION 01/24/2019 JOSE GARZA Ot J44.9 CHRONIC OBSTRUCTIVE PULMONARY DISEASE, U 01/24/2019 JOSE GARZA Ot Z45.2 ENCOUNTER FOR ADJUSTMENT AND MANAGEMENT 01/24/2019 JOSE GARZA Ot 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 01/24/2019 JOSE GARZA Ot Z86.2 PRSNL HISTORY OF DIS OF THE BLD/BLD-FORM 01/24/2019 JOSE GARZA Ot Z86.711 PERSONAL HISTORY OF PULMONARY EMBOLISM 01/24/2019 JOSE GARZA Ot Z86.718 PERSONAL HISTORY OF OTHER VENOUS THROMBO 02/12/2019 JOSE GARZA Ot D50.0 IRON DEFICIENCY ANEMIA SECONDARY TO BLOO 02/12/2019 JOSE GARZA Ot 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 02/12/2019 JOES GARZA Ot E03.9 HYPOTHYROIDISM, UNSPECIFIED 02/12/2019 JOSE GARZA N Ot E11.9 TYPE 2 DIABETES MELLITUS WITHOUT COMPLIC 02/12/2019 JOSE GARZA N Ot F17.200 NICOTINE DEPENDENCE, UNSPECIFIED, UNCOMP 02/12/2019 JOSE GARZA N Ot F32.9 MAJOR DEPRESSIVE DISORDER, SINGLE EPISOD 02/12/2019 GREYSON GARZADONELL N Ot G47.33 OBSTRUCTIVE SLEEP APNEA (ADULT) (PEDIATR 02/12/2019 KAYLA, JOSE N Ot I10 ESSENTIAL (PRIMARY) HYPERTENSION 02/12/2019 KAYLA JOSE N Ot J44.9 CHRONIC OBSTRUCTIVE PULMONARY DISEASE, U 02/12/2019 JOSE GARZA Lonnie Ot Z45.2 ENCOUNTER FOR ADJUSTMENT AND MANAGEMENT 02/12/2019 KAYLA, JOSE Fleming Ot Z79.01 PRISON (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 OF ANTICOAGULANT 02/12/2019 KAYLA, JOSE N Ot Z86.2 PRSNL HISTORY OF DIS OF THE BLD/BLD-FORM 02/12/2019 JOSE GARZA N Ot Z86.711 PERSONAL HISTORY OF PULMONARY EMBOLISM 02/12/2019 JOSE GARZA Ot Z86.718 PERSONAL HISTORY OF OTHER VENOUS THROMBO 03/20/2019 RICARDO CHACKO [employer] SERVICES COORDINATOR Ot D68.59 OTHER PRIMARY THROMBOPHILIA 03/20/2019 RICARDO CHACKO [employer] SERVICES COORDINATOR Ot I82.811 EMBOLISM AND THROMBOSIS OF SUPERF[place] 03/26/2019 KAYLAJOSE N Ot D50.0 IRON DEFICIENCY ANEMIA SECONDARY TO BLOO 03/26/2019 JOSE GARZA N Ot 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 03/26/2019 KAYLAJOSE Ot E03.9 HYPOTHYROIDISM, UNSPECIFIED 03/26/2019 KAYLAJOSE N Ot E11.9 TYPE 2 DIABETES MELLITUS WITHOUT COMPLIC 03/26/2019 KAYLAJOSE N Ot F17.200 NICOTINE DEPENDENCE, UNSPECIFIED, UNCOMP 03/26/2019 JOSE GARZA Ot F32.9 MAJOR DEPRESSIVE DISORDER, SINGLE EPISOD 03/26/2019 KAYLA, JOSE N Ot G47.33 OBSTRUCTIVE SLEEP APNEA (ADULT) (PEDIATR 03/26/2019 KAYLAJOSE N Ot I10 ESSENTIAL (PRIMARY) HYPERTENSION 03/26/2019 KAYLAJOSE N Ot J44.9 CHRONIC OBSTRUCTIVE PULMONARY DISEASE, U 03/26/2019 KAYLA JOSE N Ot Z45.2 ENCOUNTER FOR ADJUSTMENT AND MANAGEMENT 03/26/2019 KAYLA, JOSE Fleming Ot 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 03/26/2019 JOSE GARZA N Ot Z86.2 PRSNL HISTORY OF DIS OF THE BLD/BLD-FORM 03/26/2019 JOSE GARZA Ot Z86.711 PERSONAL HISTORY OF PULMONARY EMBOLISM 03/26/2019 JOSE GARZA Ot Z86.718 PERSONAL HISTORY OF OTHER VENOUS THROMBO 03/27/2019 JOSE GARZA Ot D50.0 IRON DEFICIENCY ANEMIA SECONDARY TO BLOO 03/27/2019 JOSE GARZA Ot 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 03/27/2019 JOSE GARZA Ot E03.9 HYPOTHYROIDISM, UNSPECIFIED 03/27/2019 JOSE GARZA N Ot E11.9 TYPE 2 DIABETES MELLITUS WITHOUT COMPLIC 03/27/2019 JOSE GARZA Ot F17.200 NICOTINE DEPENDENCE, UNSPECIFIED, UNCOMP 03/27/2019 JOSE GARZA Ot F32.9 MAJOR DEPRESSIVE DISORDER, SINGLE EPISOD 03/27/2019 JOSE GARZA Ot G47.33 OBSTRUCTIVE SLEEP APNEA (ADULT) (PEDIATR 03/27/2019 JOSE GARZA Ot I10 ESSENTIAL (PRIMARY) HYPERTENSION 03/27/2019 JOSE GARZA Ot J44.9 CHRONIC OBSTRUCTIVE PULMONARY DISEASE, U 03/27/2019 JOSE GARZA Ot Z45.2 ENCOUNTER FOR ADJUSTMENT AND MANAGEMENT 03/27/2019 JOSE GARZA Ot Z79.01 PRISON (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 OF ANTICOAGULANT 03/27/2019 JOSE GARZA Ot Z86.2 PRSNL HISTORY OF DIS OF THE BLD/BLD-FORM 03/27/2019 JOSE GARZA Ot Z86.711 PERSONAL HISTORY OF PULMONARY EMBOLISM 03/27/2019 JOSE GARZA Ot Z86.718 PERSONAL HISTORY OF OTHER VENOUS THROMBO 04/25/2019 JOSE GARZA Ot D50.0 IRON DEFICIENCY ANEMIA SECONDARY TO BLOO 04/25/2019 JOSE GARZA Ot 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 04/25/2019 JOSE GARZA Ot E03.9 HYPOTHYROIDISM, UNSPECIFIED 04/25/2019 JOSE GARZA Ot E11.9 TYPE 2 DIABETES MELLITUS WITHOUT COMPLIC 04/25/2019 JOSE GARZA Ot F17.200 NICOTINE DEPENDENCE, UNSPECIFIED, UNCOMP 04/25/2019 JOSE GARZA Ot F32.9 MAJOR DEPRESSIVE DISORDER, SINGLE EPISOD 04/25/2019 JOSE GARZA Ot G47.33 OBSTRUCTIVE SLEEP APNEA (ADULT) (PEDIATR 04/25/2019 JOSE GARZA Ot I10 ESSENTIAL (PRIMARY) HYPERTENSION 04/25/2019 JOSE GARZA Ot J44.9 CHRONIC OBSTRUCTIVE PULMONARY DISEASE, U 04/25/2019 JOSE GARZA Ot Z45.2 ENCOUNTER FOR ADJUSTMENT AND MANAGEMENT 04/25/2019 JOSE GARZA Ot 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 04/25/2019 JOSE GARZA Ot Z86.2 PRSNL HISTORY OF DIS OF THE BLD/BLD-FORM 04/25/2019 JOSE GARZA Ot Z86.711 PERSONAL HISTORY OF PULMONARY EMBOLISM 04/25/2019 JOSE GARZA Ot Z86.718 PERSONAL HISTORY OF OTHER VENOUS THROMBO 04/27/2019 RICARDO CHACKO [employer] SERVICES COORDINATOR Ot I82.612 ACUTE EMBOLISM AND THOMBOS OF SUPERFIC V 05/04/2019 RICARDO CHACKO [employer] SERVICES COORDINATOR Ot I82.612 ACUTE EMBOLISM AND THOMBOS OF SUPERFIC V 05/04/2019 RICARDO CHACKO [employer] SERVICES COORDINATOR Ot I82.612 ACUTE EMBOLISM AND THOMBOS OF SUPERFIC V 05/07/2019 RICARDO CHACKO [employer] SERVICES COORDINATOR Ot I82.612 ACUTE EMBOLISM AND THOMBOS OF SUPERFIC V 05/07/2019 RICARDO CHACKO S [employer]GO SERVICES COORDINATOR Ot I82.612 ACUTE EMBOLISM AND THOMBOS OF SUPERFIC V 05/08/2019 RICARDO CHACKO [employer] SERVICES COORDINATOR Ot I82.612 ACUTE EMBOLISM AND THOMBOS OF SUPERFIC V 05/10/2019 RICARDO CHACKO [employer] SERVICES COORDINATOR Ot I82.409 ACUTE EMBOLISM AND THOMBOS UNSP DEEP VN 05/14/2019 JOSE GARZA Ot D50.0 IRON DEFICIENCY ANEMIA SECONDARY TO BLOO 05/14/2019 JOSE AGRZA Ot 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 05/14/2019 JOSE GARZA Ot E03.9 HYPOTHYROIDISM, UNSPECIFIED 05/14/2019 JOSE GARZA Ot E11.9 TYPE 2 DIABETES MELLITUS WITHOUT COMPLIC 05/14/2019 JOSE GARZA Ot F17.200 NICOTINE DEPENDENCE, UNSPECIFIED, UNCOMP 05/14/2019 JOSE GARZA Ot F32.9 MAJOR DEPRESSIVE DISORDER, SINGLE EPISOD 05/14/2019 JOSE GARZA Ot G47.33 OBSTRUCTIVE SLEEP APNEA (ADULT) (PEDIATR 05/14/2019 JOSE GARZA Ot I10 ESSENTIAL (PRIMARY) HYPERTENSION 05/14/2019 JOSE GARZA Ot J44.9 CHRONIC OBSTRUCTIVE PULMONARY DISEASE, U 05/14/2019 JOSE GARZA Ot Z45.2 ENCOUNTER FOR ADJUSTMENT AND MANAGEMENT 05/14/2019 JOSE GARZA Ot 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 05/14/2019 JOSE GARZA Ot Z86.2 PRSNL HISTORY OF DIS OF THE BLD/BLD-FORM 05/14/2019 JOSE GARZA Ot Z86.711 PERSONAL HISTORY OF PULMONARY EMBOLISM 05/14/2019 JOSE GARZA Ot Z86.718 PERSONAL HISTORY OF OTHER VENOUS THROMBO 05/17/2019 RICARDO CHACKO [employer] SERVICES COORDINATOR Ot I82.612 ACUTE EMBOLISM AND THOMBOS OF SUPERFIC V 05/21/2019 RICARDO CHACKO [employer] SERVICES COORDINATOR Ot I82.409 ACUTE EMBOLISM AND THOMBOS UNSP DEEP VN 05/31/2019 JOSE GARZA Ot D50.0 IRON DEFICIENCY ANEMIA SECONDARY TO BLOO 05/31/2019 JOSE GARZA Ot 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 05/31/2019 JOSE GARZA Ot E03.9 HYPOTHYROIDISM, UNSPECIFIED 05/31/2019 JOSE GARZA Ot E11.9 TYPE 2 DIABETES MELLITUS WITHOUT COMPLIC 05/31/2019 JOSE GARZA Ot F17.200 NICOTINE DEPENDENCE, UNSPECIFIED, UNCOMP 05/31/2019 JOSE GARZA Ot F32.9 MAJOR DEPRESSIVE DISORDER, SINGLE EPISOD 05/31/2019 JOSE GARZA Ot G47.33 OBSTRUCTIVE SLEEP APNEA (ADULT) (PEDIATR 05/31/2019 JOSE GARZA N Ot I10 ESSENTIAL (PRIMARY) HYPERTENSION 05/31/2019 JOSE GARZA Ot J44.9 CHRONIC OBSTRUCTIVE PULMONARY DISEASE, U 05/31/2019 JOSE GARZA Ot Z45.2 ENCOUNTER FOR ADJUSTMENT AND MANAGEMENT 05/31/2019 JOSE GARZA Ot Z79.01 PRISON (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 OF ANTICOAGULANT 05/31/2019 JOSE GARZA Ot Z86.2 PRSNL HISTORY OF DIS OF THE BLD/BLD-FORM 05/31/2019 KAYLA JOSE Fleming Ot Z86.711 PERSONAL HISTORY OF PULMONARY EMBOLISM 05/31/2019 KAYLA JOSE Fleming Ot Z86.718 PERSONAL HISTORY OF OTHER VENOUS THROMBO 06/04/2019 SAYRA WADE MD Ot E03.9 HYPOTHYROIDISM, UNSPECIFIED 06/04/2019 SAYRA WADE MD Ot E11.40 TYPE 2 DIABETES MELLITUS WITH DIABETIC N 06/04/2019 SAYRA WADE MD, Ot E78.00 PURE HYPERCHOLESTEROLEMIA, UNSPECIFIED 06/04/2019 SAYRA WADE MD, Ot E78.5 HYPERLIPIDEMIA, UNSPECIFIED 06/04/2019 SAYRA WADE MD Ot F17.210 NICOTINE DEPENDENCE, CIGARETTES, UNCOMPL 06/04/2019 SAYRA WADE MD, Ot F41.9 ANXIETY DISORDER, UNSPECIFIED 06/04/2019 SAYRA WADE MD Ot G89.29 OTHER CHRONIC PAIN 06/04/2019 SAYRA WADE MD Ot I10 ESSENTIAL (PRIMARY) HYPERTENSION 06/04/2019 SAYRA WADE MD Ot I82.509 CHRONIC EMBOLISM AND THOMBOS UNSP DEEP V 06/04/2019 SAYRA WADE MD, Ot J18.9 PNEUMONIA, UNSPECIFIED ORGANISM 06/04/2019 SAYRA WADE MD, Ot J44.9 CHRONIC OBSTRUCTIVE PULMONARY DISEASE, U 06/04/2019 SAYRA WADE MD Ot K21.0 GASTRO-ESOPHAGEAL REFLUX DISEASE WITH ES 06/04/2019 SAYRA WADE MD Ot M19.90 UNSPECIFIED OSTEOARTHRITIS, UNSPECIFIED 06/04/2019 SAYRA WADE MD, Ot M54.9 DORSALGIA, UNSPECIFIED 06/04/2019 ASYRA WADE MD Ot R00.0 TACHYCARDIA, UNSPECIFIED 06/04/2019 SAYRA WADE MD Ot 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 06/04/2019 SAYRA WADE MD, Ot Z79.891 PRISON (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 OF OPIATE ANALGE 06/04/2019 SAYRA WADE MD, Ot Z79.899 OTHER RESIDENTIAL TEAM LEADER (CURRENT) DRUG THERAPY 06/04/2019 SAYRA WADE MD Ot Z88.5 ALLERGY STATUS TO NARCOTIC AGENT STATUS 06/04/2019 SAYRA WADE MD Ot Z88.6 ALLERGY STATUS TO ANALGESIC AGENT STATUS 06/04/2019 SAYRA WADE MD Ot Z88.8 ALLERGY STATUS TO OTH DRUG/MEDS/BIOL SUB 06/04/2019 SAYRA WADE MD Ot Z90.49 ACQUIRED ABSENCE OF OTHER SPECIFIED PART 06/04/2019 SAYRA WADE MD Ot Z90.710 ACQUIRED ABSENCE OF BOTH CERVIX AND UTER 06/04/2019 SAYRA WADE MD Ot Z90.89 ACQUIRED ABSENCE OF OTHER ORGANS 06/04/2019 SAYRA WADE MD Ot Z91.09 OTH ALLERGY STATUS, OTH THAN TO DRUGS AN 06/04/2019 SAYRA WADE MD Ot E03.9 HYPOTHYROIDISM, UNSPECIFIED 06/04/2019 SAYRA WADE MD Ot E11.40 TYPE 2 DIABETES MELLITUS WITH DIABETIC N 06/04/2019 SAYRA WADE MD Ot E78.00 PURE HYPERCHOLESTEROLEMIA, UNSPECIFIED 06/04/2019 SAYRA WADE MD Ot E78.5 HYPERLIPIDEMIA, UNSPECIFIED 06/04/2019 SAYRA WADE MD Ot F17.210 NICOTINE DEPENDENCE, CIGARETTES, UNCOMPL 06/04/2019 SAYRA WADE MD Ot F41.9 ANXIETY DISORDER, UNSPECIFIED 06/04/2019 SAYRA WADE MD Ot G89.29 OTHER CHRONIC PAIN 06/04/2019 SAYRA WADE MD Ot I10 ESSENTIAL (PRIMARY) HYPERTENSION 06/04/2019 SAYRA WADE MD Ot I82.509 CHRONIC EMBOLISM AND THOMBOS UNSP DEEP V 06/04/2019 SAYRA WADE MD Ot J18.9 PNEUMONIA, UNSPECIFIED ORGANISM 06/04/2019 SAYRA WADE MD, Ot J44.9 CHRONIC OBSTRUCTIVE PULMONARY DISEASE, U 06/04/2019 SAYRA WADE MD Ot K21.0 GASTRO-ESOPHAGEAL REFLUX DISEASE WITH ES 06/04/2019 SAYRA WADE MD Ot M19.90 UNSPECIFIED OSTEOARTHRITIS, UNSPECIFIED 06/04/2019 SAYRA WADE MD Ot M54.9 DORSALGIA, UNSPECIFIED 06/04/2019 SAYRA WADE MD, Ot R00.0 TACHYCARDIA, UNSPECIFIED 06/04/2019 SAYRA WADE MD, Ot 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 06/04/2019 SAYRA WADE MD, Ot Z79.891 PRISON (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 OF OPIATE ANALGE 06/04/2019 SAYRA WADE MD, Ot Z79.899 OTHER PRISON (CURRENT) DRUG THERAPY 06/04/2019 SAYRA WADE MD, Ot Z88.5 ALLERGY STATUS TO NARCOTIC AGENT STATUS 06/04/2019 SAYRA WADE MD, Ot Z88.6 ALLERGY STATUS TO ANALGESIC AGENT STATUS 06/04/2019 SAYRA WADE MD, Ot Z88.8 ALLERGY STATUS TO OTH DRUG/MEDS/BIOL SUB 06/04/2019 SAYRA WADE MD Ot Z90.49 ACQUIRED ABSENCE OF OTHER SPECIFIED PART 06/04/2019 SAYRA WADE MD, Ot Z90.710 ACQUIRED ABSENCE OF BOTH CERVIX AND UTER 06/04/2019 SAYRA WADE MD Ot Z90.89 ACQUIRED ABSENCE OF OTHER ORGANS 06/04/2019 SAYRA WADE MD, Ot Z91.09 OTH ALLERGY STATUS, OTH THAN TO DRUGS AN 06/12/2019 RICARDO CHACKO [employer] SERVICES COORDINATOR Ot I27.20 PULMONARY HYPERTENSION, UNSPECIFIED 06/26/2019 JOSE GARZA Ot D50.0 IRON DEFICIENCY ANEMIA SECONDARY TO BLOO 06/26/2019 JOSE GARZA Ot 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 06/26/2019 JOSE GARZA Ot E03.9 HYPOTHYROIDISM, UNSPECIFIED 06/26/2019 JOSE GARZA Ot E11.9 TYPE 2 DIABETES MELLITUS WITHOUT COMPLIC 06/26/2019 JOSE GARZA Ot F17.200 NICOTINE DEPENDENCE, UNSPECIFIED, UNCOMP 06/26/2019 JOSE GARZA Ot F32.9 MAJOR DEPRESSIVE DISORDER, SINGLE EPISOD 06/26/2019 JOSE GARZA Ot G47.33 OBSTRUCTIVE SLEEP APNEA (ADULT) (PEDIATR 06/26/2019 JOSE GARZA Ot I10 ESSENTIAL (PRIMARY) HYPERTENSION 06/26/2019 JOSE GARZA Ot J44.9 CHRONIC OBSTRUCTIVE PULMONARY DISEASE, U 06/26/2019 KAYLA JOSE N Ot Z45.2 ENCOUNTER FOR ADJUSTMENT AND MANAGEMENT 06/26/2019 JOSE GARZA Lonnie Ot Z79.01 PRISON (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 OF ANTICOAGULANT 06/26/2019 KAYLAJOSE N Ot Z86.2 PRSNL HISTORY OF DIS OF THE BLD/BLD-FORM 06/26/2019 KAYLAJOSE N Ot Z86.711 PERSONAL HISTORY OF PULMONARY EMBOLISM 06/26/2019 KAYLAJOSE Ot Z86.718 PERSONAL HISTORY OF OTHER VENOUS THROMBO 06/27/2019 RICARDO CHACKOP Ot M79.89 OTHER SPECIFIED SOFT TISSUE DISORDERS 06/27/2019 KAYLAJOSE Ot D50.0 IRON DEFICIENCY ANEMIA SECONDARY TO BLOO 06/27/2019 JOSE GARZA Ot 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 06/27/2019 KAYLAJOSE Ot E03.9 HYPOTHYROIDISM, UNSPECIFIED 06/27/2019 KAYLAJOSE Ot E11.9 TYPE 2 DIABETES MELLITUS WITHOUT COMPLIC 06/27/2019 KAYLAJOSE N Ot F17.200 NICOTINE DEPENDENCE, UNSPECIFIED, UNCOMP 06/27/2019 KAYLAJOSE N Ot F32.9 MAJOR DEPRESSIVE DISORDER, SINGLE EPISOD 06/27/2019 JOSE GARZA Ot G47.33 OBSTRUCTIVE SLEEP APNEA (ADULT) (PEDIATR 06/27/2019 KAYLAJOSE N Ot I10 ESSENTIAL (PRIMARY) HYPERTENSION 06/27/2019 JOSE GARZA Ot J44.9 CHRONIC OBSTRUCTIVE PULMONARY DISEASE, U 06/27/2019 KAYLAJOSE Ot Z45.2 ENCOUNTER FOR ADJUSTMENT AND MANAGEMENT 06/27/2019 KAYLAJOSE N Ot Z79.01 PRISON (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 OF ANTICOAGULANT 06/27/2019 KAYLAJOSE N Ot Z86.2 PRSNL HISTORY OF DIS OF THE BLD/BLD-FORM 06/27/2019 KAYLAJOSE N Ot Z86.711 PERSONAL HISTORY OF PULMONARY EMBOLISM 06/27/2019 KAYLAJOSE N Ot Z86.718 PERSONAL HISTORY OF OTHER VENOUS THROMBO 06/28/2019 RICARDO CHACKO [employer] SERVICES COORDINATOR Ot M79.89 OTHER SPECIFIED SOFT TISSUE DISORDERS 07/03/2019 MARAL SHEPARD Ot R06.02 SHORTNESS OF BREATH 07/03/2019 MARAL SHEPARD Ot R07.9 CHEST PAIN, UNSPECIFIED 07/05/2019 RICARDO CHACKO Ot D68.59 OTHER PRIMARY THROMBOPHILIA 07/05/2019 RICARDO CHACKO Ot I82.401 ACUTE EMBOLISM AND THOMBOS UNSP DEEP VEI 07/05/2019 RICARDO CHACKOP Ot Z86.718 PERSONAL HISTORY OF OTHER VENOUS THROMBO 07/20/2019 MARAL SHEPARD Ot R06.02 SHORTNESS OF BREATH 07/20/2019 MARAL SHEPARD Ot R07.9 CHEST PAIN, UNSPECIFIED 07/20/2019 RICARDO CHACKO Ot D68.59 OTHER PRIMARY THROMBOPHILIA 07/20/2019 RICARDO CHACKO Ot I82.401 ACUTE EMBOLISM AND THOMBOS UNSP DEEP VEI 07/20/2019 RICARDO CHACKOP Ot Z86.718 PERSONAL HISTORY OF OTHER VENOUS THROMBO 07/25/2019 JOSE GARZA Ot D50.0 IRON DEFICIENCY ANEMIA SECONDARY TO BLOO 07/25/2019 JOSE GARZA Ot 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 07/25/2019 JOSE GARZA Ot E03.9 HYPOTHYROIDISM, UNSPECIFIED 07/25/2019 JOSE GARZA Ot E11.9 TYPE 2 DIABETES MELLITUS WITHOUT COMPLIC 07/25/2019 JOSE GARZA Ot F17.200 NICOTINE DEPENDENCE, UNSPECIFIED, UNCOMP 07/25/2019 JOSE GARZA Ot F32.9 MAJOR DEPRESSIVE DISORDER, SINGLE EPISOD 07/25/2019 JOSE GARZA Ot G47.33 OBSTRUCTIVE SLEEP APNEA (ADULT) (PEDIATR 07/25/2019 JOSE GARZA Ot I10 ESSENTIAL (PRIMARY) HYPERTENSION 07/25/2019 JOSE GARZA Ot J44.9 CHRONIC OBSTRUCTIVE PULMONARY DISEASE, U 07/25/2019 JOSE GARZA Ot Z51.11 ENCOUNTER FOR ANTINEOPLASTIC CHEMOTHERAP 07/25/2019 JOSE GARZA Ot Z79.01 PRISON (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 OF ANTICOAGULANT 07/25/2019 JOSE GARZA Ot Z86.2 PRSNL HISTORY OF DIS OF THE BLD/BLD-FORM 07/25/2019 JOSE GARZA Ot Z86.711 PERSONAL HISTORY OF PULMONARY EMBOLISM 07/25/2019 JOSE GARZA Ot Z86.718 PERSONAL HISTORY OF OTHER VENOUS THROMBO 07/30/2019 MARAL SHEPARD Ot R06.02 SHORTNESS OF BREATH 07/30/2019 MARAL SHEPARD Ot R07.9 CHEST PAIN, UNSPECIFIED 07/30/2019 RICARDO CHACKOP Ot D68.59 OTHER PRIMARY THROMBOPHILIA 07/30/2019 RICARDO CHACKOP Ot I82.401 ACUTE EMBOLISM AND THOMBOS UNSP DEEP VEI 07/30/2019 RICARDO CHACKOP Ot Z86.718 PERSONAL HISTORY OF OTHER VENOUS THROMBO 08/08/2019 JIM AMAYAP Ot D50.8 OTHER IRON DEFICIENCY ANEMIAS 08/08/2019 JIM AMAYAP Ot E11.9 TYPE 2 DIABETES MELLITUS WITHOUT COMPLIC 08/08/2019 JIM AMAYAP Ot I1 0 ESSENTIAL (PRIMARY) HYPERTENSION 08/09/2019 JOSE GARZA Ot D50.0 IRON DEFICIENCY ANEMIA SECONDARY TO BLOO 08/09/2019 JOSE GARZA Ot D68.59 OTHER PRIMARY THROMBOPHILIA 08/09/2019 JOSE GARZA Ot 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 08/09/2019 JOSE GARZA Ot E03.9 HYPOTHYROIDISM, UNSPECIFIED 08/09/2019 JOSE GARZA Ot E11.9 TYPE 2 DIABETES MELLITUS WITHOUT COMPLIC 08/09/2019 JOSE GARZA Ot F17.200 NICOTINE DEPENDENCE, UNSPECIFIED, UNCOMP 08/09/2019 JOSE GARZA Ot F32.9 MAJOR DEPRESSIVE DISORDER, SINGLE EPISOD 08/09/2019 JOSE GARZA Ot F41.9 ANXIETY DISORDER, UNSPECIFIED 08/09/2019 JOSE GARZA Ot G47.33 OBSTRUCTIVE SLEEP APNEA (ADULT) (PEDIATR 08/09/2019 JOSE GARZA Ot J44.9 CHRONIC OBSTRUCTIVE PULMONARY DISEASE, U 08/09/2019 JOSE GARZA Ot M19.90 UNSPECIFIED OSTEOARTHRITIS, UNSPECIFIED 08/09/2019 JOSE GARZA Ot N18.9 CHRONIC KIDNEY DISEASE, UNSPECIFIED 08/09/2019 JOSE GARZA Ot R00.0 TACHYCARDIA, UNSPECIFIED 08/09/2019 JOSE GARZA Ot Z51.11 ENCOUNTER FOR ANTINEOPLASTIC CHEMOTHERAP 08/09/2019 JOSE GARZA Ot Z79.01 PRISON (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 OF ANTICOAGULANT 08/09/2019 JOSE GARZA Ot Z86.2 PRSNL HISTORY OF DIS OF THE BLD/BLD-FORM 08/09/2019 JOSE GARZA Ot Z86.711 PERSONAL HISTORY OF PULMONARY EMBOLISM 08/09/2019 JOSE GARZA Ot Z86.718 PERSONAL HISTORY OF OTHER VENOUS THROMBO 08/09/2019 JOSE GARZA Ot Z90.49 ACQUIRED ABSENCE OF OTHER SPECIFIED PART 08/09/2019 JOSE GARZA Ot Z90.710 ACQUIRED ABSENCE OF BOTH CERVIX AND UTER 08/09/2019 JOSE GARZA Ot Z95.828 PRESENCE OF OTHER VASCULAR IMPLANTS AND 08/09/2019 JOSE GARZA Ot Z98.890 OTHER SPECIFIED POSTPROCEDURAL STATES 08/09/2019 RICARDO [employer] COORDINATOR Ot D68.59 OTHER PRIMARY THROMBOPHILIA 08/09/2019 RICARDO CH[employer] COORDINATOR Ot I82.409 ACUTE EMBOLISM AND THOMBOS UNSP DEEP VN 08/23/2019 JOSE GARZA Ot D50.0 IRON DEFICIENCY ANEMIA SECONDARY TO BLOO 08/23/2019 JOSE GARZA Ot D68.59 OTHER PRIMARY THROMBOPHILIA 08/23/2019 JOSE GARZA Ot 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 08/23/2019 JOSE GARZA Ot E03.9 HYPOTHYROIDISM, UNSPECIFIED 08/23/2019 JOSE GARZA Ot E11.9 TYPE 2 DIABETES MELLITUS WITHOUT COMPLIC 08/23/2019 JOSE GARZA Ot F17.200 NICOTINE DEPENDENCE, UNSPECIFIED, UNCOMP 08/23/2019 JOSE GARZA Ot F32.9 MAJOR DEPRESSIVE DISORDER, SINGLE EPISOD 08/23/2019 JOSE GARZA Ot F41.9 ANXIETY DISORDER, UNSPECIFIED 08/23/2019 JOSE GARZA Ot G47.33 OBSTRUCTIVE SLEEP APNEA (ADULT) (PEDIATR 08/23/2019 KAYLAJOSE Ot J44.9 CHRONIC OBSTRUCTIVE PULMONARY DISEASE, U 08/23/2019 KAYLAJOSE Ot M19.90 UNSPECIFIED OSTEOARTHRITIS, UNSPECIFIED 08/23/2019 KAYLAJOSE Ot N18.9 CHRONIC KIDNEY DISEASE, UNSPECIFIED 08/23/2019 JOSE GARZA Ot R00.0 TACHYCARDIA, UNSPECIFIED 08/23/2019 JOSE GARZA Ot Z51.11 ENCOUNTER FOR ANTINEOPLASTIC CHEMOTHERAP 08/23/2019 JOSE GARZA Ot 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 08/23/2019 JOSE GARZA Ot Z86.2 PRSNL HISTORY OF DIS OF THE BLD/BLD-FORM 08/23/2019 JOSE GARZA Ot Z86.711 PERSONAL HISTORY OF PULMONARY EMBOLISM 08/23/2019 JOSE GARZA Ot Z86.718 PERSONAL HISTORY OF OTHER VENOUS THROMBO 08/23/2019 JOSE GARZA Ot Z90.49 ACQUIRED ABSENCE OF OTHER SPECIFIED PART 08/23/2019 JOSE GARZA Ot Z90.710 ACQUIRED ABSENCE OF BOTH CERVIX AND UTER 08/23/2019 JOSE GARZA Ot Z95.828 PRESENCE OF OTHER VASCULAR IMPLANTS AND 08/23/2019 JOSE GARZA Ot Z98.890 OTHER SPECIFIED POSTPROCEDURAL STATES 08/28/2019 JIM AMAYA Ot D50.8 OTHER IRON DEFICIENCY ANEMIAS 08/28/2019 JIM AMAYA Ot E11.9 TYPE 2 DIABETES MELLITUS WITHOUT COMPLIC 08/28/2019 JIM AMAYA Ot I1 0 ESSENTIAL (PRIMARY) HYPERTENSION Procedures Code Description Performed By Per formed On 88.51 VENA CAV ANGIOCARDIOGRAM 10/26/2010 38.7 PLICA TION OF VENA CAVA 10/27/2010 39.99 VESS EL OPERATION NEC 10/27/2010 86.07 INSE RTION OF TOTALLY IMPLANTABLE VASC AC 10/27/2010 38.93 VENO US CATHETERIZATION NEC 04/02/2012 20427 MICR O ALBUMIN-IN HOUSE 06/20/2012 56687 A1C (IN-HOUSE) 06/20/2012 64905 MICR OALBUMIN 06/20/2012 13604 PSYT X PT&/FAMILY 45 MINUTES 12/28/2012 56746 PSYT X PT&/FAMILY 45 MINUTES 03/14/2013 30939 OXIMETRY 03/27/2013 23098 TSH 05/01/2013 95086 CBC 05/01/2013 PULMONARY MyeshaMikal 05/01/2013 97266 MAMM OGRAM DX, MIRTA 05/10/2013 DERMATOLO JU CORMIER 06/05/2013 05414 A1C (IN-HOUSE) 06/05/2013 15582 MICR O ALBUMIN-IN HOUSE 06/05/2013 61583 URIN E DRUG SCREEN (IN-HOUSE) 06/05/2013 76458 MICR OALBUMIN 06/06/2013 Medical O [facility] 06/11/2013 69343 A1C (IN-HOUSE) 10/09/2013 23097 BMP 10/09/2013 16002 OXIMETRY 10/09/2013 NEUROLOGY PABLO GRANDA 11/08/2013 ORTHOPEDI EDU KISER 12/11/2013 52883 S OFT TISSUE (SPECIFY LOCATION) 12/11/2013 71272 A1C (IN-HOUSE) 03/22/2014 General S Brandi Diaz 06/27/2014 S8037 MRCP 07/18/2014 Urology Duane Mcdonald 07/18/2014 33464 UA W / CULTURE IF INDICATED 07/18/2014 Results Test Result Range Complete urinalysis with reflex to cultu re - 01/16/16 18:09 Urine color determination YELLOW NRG Urine clarity determination CLEAR NR G Urine pH measurement by test strip 7 5-9 Specific gravity of urine by test strip 1.010 1.016-1.022 Urine protein assay by test strip, semi-quantitative NEGATIVE NEGATIVE Urine glucose detection by automated test strip NE GATIVE NEGATIVE Erythrocytes detection in urine sediment by light micr oscopy 3+ NEGATIVE Urine ketones detection by automated test strip NE GATIVE NEGATIVE Urine nitrite detection by test strip NEGATIVE NEGATIVE Urine total bilirubin detection by test strip NEGA TIVE NEGATIVE Urine urobilinogen measurement by automated test strip (mass/volume) NORMAL NORMAL Urine leukocyte esterase detection by dipstick 1+ NEGATIVE Automated urine sediment erythrocyte cou nt by microscopy (number/high power field) [HPF] NRG Automated urine sediment leukocyte count by microscopy (number/high power field) [HPF] NRG Bacteria detection in urine sediment by light microsco py NEGATIVE NRG Squamous epithelial cells detection in u rine sediment by light microscopy 5-10 NRG Crystals detection in urine sediment by light microsco py NONE NRG Casts detection in urine sediment by light microscopy NONE NRG Mucus detection in urine sediment by light microscopy NEGATIVE NRG Complete urinalysis with reflex to culture NO NRG Complete blood count (CBC) with automate d white blood cell (WBC) differential - 01/16/16 18:45 Blood leukocytes automated count (number/volume) 6.8 10*3/uL 4.3-11.0 Blood erythrocytes automated count (number/volume) 4.60 10*6/uL 4.35-5.85 Venous blood hemoglobin measurement (mass/volume) 15.8 g/dL 11.5-16.0 Blood hematocrit (volume fraction) 45 % 35-52 Automated erythrocyte mean corpuscular volume 97 [ foz_us] 80-99 Automated erythrocyte mean corpuscular h emoglobin (mass per erythrocyte) 34 pg 25-34 Automated erythrocyte mean corpuscular h emoglobin concentration measurement (mass/volume) 35 g/dL 32-36 Automated erythrocyte distribution width ratio 12. 0 % 10.0- 14.5 Automated blood platelet count (count/volume) 134 10*3/uL [...] 10*3 1.0-4.0 Blood monocytes automated count (number/volume) 0. 4 10*3 0.0-1.0 Automated eosinophil count 0.2 10*3/uL 0 .0-0.3 Automated blood basophil count (count/volume) 0.0 10*3/uL 0.0-0.1 Comprehensive metabolic panel - 01/16/16 18:45 Serum or plasma sodium measurement (moles/volume) 138 mmol/L 135-145 Serum or plasma potassium measurement (moles/volume) 3.8 mmol/L 3.6-5.0 Serum or plasma chloride measurement (moles/volume) 103 mmol/L 98-107 Carbon dioxide 26 mmol/L 21-32 Serum or plasma anion gap determination (moles/volume) 9 mmol/L 5-14 Serum or plasma urea nitrogen measurement (mass/volume ) 10 mg/dL 7-18 Serum or plasma creatinine measurement (mass/volume) 0.73 mg/dL 0.60-1.30 Serum or plasma urea nitrogen/creatinine mass ratio 14 NRG Serum or plasma creatinine measurement w ith calculation of estimated glomerular filtration rate > NRG Serum or plasma glucose measurement (mass/volume) 93 mg/dL 70-105 Serum or plasma calcium measurement (mass/volume) 9.8 mg/dL 8.5-10.1 Serum or plasma total bilirubin measurement (mass/volu me) 0.5 mg/dL 0.1-1.0 Serum or plasma alkaline phosphatase alma surement (enzymatic activity/volume) 80 U/L 40-136 Serum or plasma aspartate aminotransfera se measurement (enzymatic activity/volume) 13 U/L 5-34 Serum or plasma alanine aminotransferase measurement (enzymatic activity/volume) 8 U/L 0-55 Serum or plasma protein measurement (mass/volume) 6.9 g/dL 6.4-8.2 Serum or plasma albumin measurement (mass/volume) 4.2 g/dL 3.2-4.5 Serum or plasma amylase measurement (enz ymatic activity/volume) - 01/16/16 18:45 Serum or plasma amylase measurement (enzymatic activit y/volume) 50 U/L 25-125 Lipase - 01/16/16 18:45 Lipase 12 U/L 8-78 Complete blood count (CBC) with automate d white blood cell (WBC) differential - 04/05/16 06:03 Blood leukocytes automated count (number/volume) 10.5 10*3/uL 4.3-11.0 Blood erythrocytes automated count (number/volume) 4.30 10*6/uL 4.35-5.85 Venous blood hemoglobin measurement (mass/volume) 14.5 g/dL 11.5-16.0 Blood hematocrit (volume fraction) 42 % 35-52 Automated erythrocyte mean corpuscular volume 98 [ foz_us] 80-99 Automated erythrocyte mean corpuscular h emoglobin (mass per erythrocyte) 34 pg 25-34 Automated erythrocyte mean corpuscular h emoglobin concentration measurement (mass/volume) 34 g/dL 32-36 Automated erythrocyte distribution width ratio 12. 4 % 10.0- 14.5 Automated blood platelet count (count/volume) 150 10*3/uL [...] 10*3 1.0-4.0 Blood monocytes automated count (number/volume) 0. 6 10*3 0.0-1.0 Automated eosinophil count 0.1 10*3/uL 0 .0-0.3 Automated blood basophil count (count/volume) 0.0 10*3/uL 0.0-0.1 Comprehensive metabolic panel - 04/05/16 06:03 Serum or plasma sodium measurement (moles/volume) 139 mmol/L 135-145 Serum or plasma potassium measurement (moles/volume) 3.5 mmol/L 3.6-5.0 Serum or plasma chloride measurement (moles/volume) 105 mmol/L 98-107 Carbon dioxide 27 mmol/L 21-32 Serum or plasma anion gap determination (moles/volume) 7 mmol/L 5-14 Serum or plasma urea nitrogen measurement (mass/volume ) 10 mg/dL 7-18 Serum or plasma creatinine measurement (mass/volume) 0.71 mg/dL 0.60-1.30 Serum or plasma urea nitrogen/creatinine mass ratio 14 NRG Serum or plasma creatinine measurement w ith calculation of estimated glomerular filtration rate > NRG Serum or plasma glucose measurement (mass/volume) 114 mg/dL 70-105 Serum or plasma calcium measurement (mass/volume) 9.4 mg/dL 8.5-10.1 Serum or plasma total bilirubin measurement (mass/volu me) 0.3 mg/dL 0.1-1.0 Serum or plasma alkaline phosphatase alma surement (enzymatic activity/volume) 98 U/L 40-136 Serum or plasma aspartate aminotransfera se measurement (enzymatic activity/volume) 15 U/L 5-34 Serum or plasma alanine aminotransferase measurement (enzymatic activity/volume) 15 U/L 0-55 Serum or plasma protein measurement (mass/volume) 6.9 g/dL 6.4-8.2 Serum or plasma albumin measurement (mass/volume) 4.3 g/dL 3.2-4.5 Serum or plasma amylase measurement (enz ymatic activity/volume) - 04/05/16 06:03 Serum or plasma amylase measurement (enzymatic activit y/volume) 72 U/L 25-125 Lipase - 04/05/16 06:03 Lipase 37 U/L 8-78 Complete urinalysis with reflex to cultu re - 04/05/16 07:00 Urine color determination YELLOW NRG Urine clarity determination SLIGHTLY CLOUDY NRG Urine pH measurement by test strip 5 5-9 Specific gravity of urine by test strip 1.030 1.016-1.022 Urine protein assay by test strip, semi-quantitative 2+ NEGATIVE Urine glucose detection by automated test strip 1+ NEGATIVE Erythrocytes detection in urine sediment by light micr oscopy 4+ NEGATIVE Urine ketones detection by automated test strip 1+ NEGATIVE Urine nitrite detection by test strip NEGATIVE NEGATIVE Urine total bilirubin detection by test strip NEGA TIVE NEGATIVE Urine urobilinogen measurement by automated test strip (mass/volume) 1 mg/dL NORMAL Urine leukocyte esterase detection by dipstick 2+ NEGATIVE Automated urine sediment erythrocyte cou nt by microscopy (number/high power field) [HPF] NRG Automated urine sediment leukocyte count by microscopy (number/high power field) [HPF] NRG Bacteria detection in urine sediment by light microsco py MODERATE NRG Squamous epithelial cells detection in u rine sediment by light microscopy 25-50 NRG Crystals detection in urine sediment by light microsco py PRESENT NRG Casts detection in urine sediment by light microscopy NONE NRG Mucus detection in urine sediment by light microscopy NEGATIVE NRG Complete urinalysis with reflex to culture YES NRG Uric acid crystals detection in urine sediment by ligh t microscopy MODERATE NRG Urine drug screening test - 04/05/16 07: 00 Urine phencyclidine detection by screening method NEGATIVE NEGATIVE Urine benzodiazepines detection by screening method NEGATIVE NEGATIVE Urine cocaine detection NEGATIVE NEGATI VE Urine amphetamines detection by screening method N EGATIVE NEGATIVE Urine methamphetamine detection by screening method NEGATIVE NEGATIVE Urine cannabinoids detection by screening method P OSITIVE NEGATIVE Urine opiates detection by screening method NEGATI VE NEGATIVE Urine barbiturates detection NEGATIVE N EGATIVE Screening urine tricyclic antidepressants detection NEGATIVE NEGATIVE Urine methadone detection by screening method NEGA TIVE NEGATIVE Urine oxycodone detection POSITIVE NEGA TIVE Urine propoxyphene detection NEGATIVE N EGATIVE Bacterial urine culture - 04/05/16 07:00 URINE CULTURE RESULTS <10,000/ML NRG Complete blood count (CBC) with automate d white blood cell (WBC) differential - 04/07/16 14:10 Blood leukocytes automated count (number/volume) 7.0 10*3/uL 4.3-11.0 Blood erythrocytes automated count (number/volume) 4.00 10*6/uL 4.35-5.85 Venous blood hemoglobin measurement (mass/volume) 13.6 g/dL 11.5-16.0 Blood hematocrit (volume fraction) 39 % 35-52 Automated erythrocyte mean corpuscular volume 98 [ foz_us] 80-99 Automated erythrocyte mean corpuscular h emoglobin (mass per erythrocyte) 34 pg 25-34 Automated erythrocyte mean corpuscular h emoglobin concentration measurement (mass/volume) 35 g/dL 32-36 Automated erythrocyte distribution width ratio 12. 5 % 10.0- 14.5 Automated blood platelet count (count/volume) 145 10*3/uL [...] 10*3 1.0-4.0 Blood monocytes automated count (number/volume) 0. 5 10*3 0.0-1.0 Automated eosinophil count 0.2 10*3/uL 0 .0-0.3 Automated blood basophil count (count/volume) 0.0 10*3/uL 0.0-0.1 Complete urinalysis with reflex to cultu re - 04/07/16 14:10 Urine color determination YELLOW NRG Urine clarity determination CLEAR NR G Urine pH measurement by test strip 6 5-9 Specific gravity of urine by test strip 1.015 1.016-1.022 Urine protein assay by test strip, semi-quantitative 1+ NEGATIVE Urine glucose detection by automated test strip NE GATIVE NEGATIVE Erythrocytes detection in urine sediment by light micr oscopy 4+ NEGATIVE Urine ketones detection by automated test strip NE GATIVE NEGATIVE Urine nitrite detection by test strip NEGATIVE NEGATIVE Urine total bilirubin detection by test strip NEGA TIVE NEGATIVE Urine urobilinogen measurement by automated test strip (mass/volume) NORMAL NORMAL Urine leukocyte esterase detection by dipstick NEG ATIVE NEGATIVE Automated urine sediment erythrocyte cou nt by microscopy (number/high power field) [HPF] NRG Automated urine sediment leukocyte count by microscopy (number/high power field) NONE NRG Bacteria detection in urine sediment by light microsco py NEGATIVE NRG Squamous epithelial cells detection in u rine sediment by light microscopy RARE NRG Crystals detection in urine sediment by light microsco py NONE NRG Casts detection in urine sediment [...] 5-14 Serum or plasma urea nitrogen measurement (mass/volume ) 8 mg/dL 7-18 Serum or plasma creatinine measurement (mass/volume) 0.69 mg/dL 0.60-1.30 Serum or plasma urea nitrogen/creatinine mass ratio 12 NRG Serum or plasma creatinine measurement w ith calculation of estimated glomerular filtration rate > NRG Serum or plasma glucose measurement (mass/volume) 84 mg/dL 70-105 Serum or plasma calcium measurement (mass/volume) 9.1 mg/dL 8.5-10.1 Serum or plasma total bilirubin measurement (mass/volu me) 0.4 mg/dL 0.1-1.0 Serum or plasma alkaline phosphatase alma surement (enzymatic activity/volume) 88 U/L 40-136 Serum or plasma aspartate aminotransfera se measurement (enzymatic activity/volume) 15 U/L 5-34 Serum or plasma alanine aminotransferase measurement (enzymatic activity/volume) 16 U/L 0-55 Serum or plasma protein measurement (mass/volume) 6.5 g/dL 6.4-8.2 Serum or plasma albumin measurement (mass/volume) 4.0 g/dL 3.2-4.5 Serum or plasma C reactive protein measu rement (mass/volume) - 04/07/16 14:10 Serum or plasma C reactive protein measurement (mass/v olume) 0.31 mg/dL 0.00-0.50 Arterial blood gas measurement - 7 13:50 Blood pCO2 52 mm[Hg] 35-45 Blood pO2 52 mm[Hg] 79-93 Arterial blood bicarbonate measurement (moles/volume) 27 mmol/L 23-27 Arterial blood base excess by calculation 1.5 mmol /L -2.5-2.5 Arterial blood oxygen saturation measurement 89 % 94-100 * Inhaled oxygen flow rate ROOM AIR NRG Arterial blood pH measurement with patient temperature correction 7.33 7.37-7.43 Arterial blood carbon dioxide, total measurement (mole s/volume) 28.7 mmol/L 21.0-31.0 Body site RIGHT BRACHIAL NRG Assessment of wrist artery patency prior to arterial p uncture NA NRG Setting of ventilation mode NO NR G Measurement of body temperature 96.6 NRG Complete urinalysis with reflex to cultu re - 11/07/16 08:22 Urine color determination YELLOW NRG Urine clarity determination CLEAR NR G Urine pH measurement by test strip 6 5-9 Specific gravity of urine by test strip 1.025 1.016-1.022 Urine protein assay by test strip, semi-quantitative NEGATIVE NEGATIVE Urine glucose detection by automated test strip NE GATIVE NEGATIVE Erythrocytes detection in urine sediment by light micr oscopy 2+ NEGATIVE Urine ketones detection by automated test strip NE GATIVE NEGATIVE Urine nitrite detection by test strip NEGATIVE NEGATIVE Urine total bilirubin detection by test strip NEGA TIVE NEGATIVE Urine urobilinogen measurement by automated test strip (mass/volume) NORMAL NORMAL Urine leukocyte esterase detection by dipstick 1+ NEGATIVE Automated urine sediment erythrocyte cou nt by microscopy (number/high power field) [HPF] NRG Automated urine sediment leukocyte count by microscopy (number/high power field) [HPF] NRG Bacteria detection in urine sediment by light microsco py FEW NRG Squamous epithelial cells detection in u rine sediment by light microscopy 10-25 NRG Crystals detection in urine sediment by light microsco py NONE NRG Casts detection in urine sediment by light microscopy NONE NRG Mucus detection in urine sediment by light microscopy NEGATIVE NRG Complete urinalysis with reflex to culture YES NRG Bacterial urine culture - 11/07/16 08:22 URINE CULTURE RESULTS <10,000/ML NRG Complete blood count (CBC) with automate d white blood cell (WBC) differential - 11/07/16 08:45 Blood leukocytes automated count (number/volume) 7.0 10*3/uL 4.3-11.0 Blood erythrocytes automated count (number/volume) 4.33 10*6/uL 4.35-5.85 Venous blood hemoglobin measurement (mass/volume) 14.5 g/dL 11.5-16.0 Blood hematocrit (volume fraction) 42 % 35-52 Automated erythrocyte mean corpuscular volume 96 [ foz_us] 80-99 Automated erythrocyte mean corpuscular h emoglobin (mass per erythrocyte) 34 pg 25-34 Automated erythrocyte mean corpuscular h emoglobin concentration measurement (mass/volume) 35 g/dL 32-36 Automated erythrocyte distribution width ratio 12. 4 % 10.0- 14.5 Automated blood platelet count (count/volume) 136 10*3/uL [...] 10*3 1.0-4.0 Blood monocytes automated count (number/volume) 0. 4 10*3 0.0-1.0 Automated eosinophil count 0.2 10*3/uL 0 .0-0.3 Automated blood basophil count (count/volume) 0.0 10*3/uL 0.0-0.1 Comprehensive metabolic panel - 11/07/16 08:45 Serum or plasma sodium measurement (moles/volume) 138 mmol/L 135-145 Serum or plasma potassium measurement (moles/volume) 3.8 mmol/L 3.6-5.0 Serum or plasma chloride measurement (moles/volume) 101 mmol/L 98-107 Carbon dioxide 23 mmol/L 21-32 Serum or plasma anion gap determination (moles/volume) 14 mmol/L 5-14 Serum or plasma urea nitrogen measurement (mass/volume ) 18 mg/dL 7-18 Serum or plasma creatinine measurement (mass/volume) 0.81 mg/dL 0.60-1.30 Serum or plasma urea nitrogen/creatinine mass ratio 22 NRG Serum or plasma creatinine measurement w ith calculation of estimated glomerular filtration rate > NRG Serum or plasma glucose measurement (mass/volume) 107 mg/dL 70-105 Serum or plasma calcium measurement (mass/volume) 9.9 mg/dL 8.5-10.1 Serum or plasma total bilirubin measurement (mass/volu me) 0.4 mg/dL 0.1-1.0 Serum or plasma alkaline phosphatase alma surement (enzymatic activity/volume) 114 U/L 40-136 Serum or plasma aspartate aminotransfera se measurement (enzymatic activity/volume) 17 U/L 5-34 Serum or plasma alanine aminotransferase measurement (enzymatic activity/volume) 18 U/L 0-55 Serum or plasma protein measurement (mass/volume) 7.2 g/dL 6.4-8.2 Serum or plasma albumin measurement (mass/volume) 4.2 g/dL 3.2-4.5 Lipase - 11/07/16 08:45 Lipase 28 U/L 8-78 Complete urinalysis with reflex to cultu re - 12/15/16 18:02 Urine color determination YELLOW NRG Urine clarity determination CLEAR NR G Urine pH measurement by test strip 6 5-9 Specific gravity of urine by test strip 1.010 1.016-1.022 Urine protein assay by test strip, semi-quantitative NEGATIVE NEGATIVE Urine glucose detection by automated test strip NE GATIVE NEGATIVE Erythrocytes detection in urine sediment by light micr oscopy 1+ NEGATIVE Urine ketones detection by automated test strip NE GATIVE NEGATIVE Urine nitrite detection by test strip NEGATIVE NEGATIVE Urine total bilirubin detection by test strip NEGA TIVE NEGATIVE Urine urobilinogen measurement by automated test strip (mass/volume) NORMAL NORMAL Urine leukocyte esterase detection by dipstick NEG ATIVE NEGATIVE Automated urine sediment erythrocyte cou nt by microscopy (number/high power field) NONE NRG Automated urine sediment leukocyte count by microscopy (number/high power field) RARE NRG Bacteria detection in urine sediment by light microsco py NEGATIVE NRG Squamous epithelial cells detection in u rine sediment by light microscopy 5-10 NRG Crystals detection in urine sediment by light microsco py NONE NRG Casts detection in urine sediment by light microscopy NONE NRG Mucus detection in urine sediment by light microscopy NEGATIVE NRG Complete urinalysis with reflex to culture NO NRG Complete blood count (CBC) with automate d white blood cell (WBC) differential - 09/14/17 16:18 Blood leukocytes automated count (number/volume) 7.1 10*3/uL 4.3-11.0 Blood erythrocytes automated count (number/volume) 4.26 10*6/uL 4.35-5.85 Venous blood hemoglobin measurement (mass/volume) 14.3 g/dL 11.5-16.0 Blood hematocrit (volume fraction) 41 % 35-52 Automated erythrocyte mean corpuscular volume 96 [ foz_us] 80-99 Automated erythrocyte mean corpuscular h emoglobin (mass per erythrocyte) 34 pg 25-34 Automated erythrocyte mean corpuscular h emoglobin concentration measurement (mass/volume) 35 g/dL 32-36 Automated erythrocyte distribution width ratio 12. 7 % 10.0- 14.5 Automated blood platelet count (count/volume) 158 10*3/uL 130-400 Automated blood platelet mean volume measurement 10.9 [foz_us] 7.4-10.4 Automated blood neutrophils/100 leukocytes 48 % 42-75 Automated blood lymphocytes/100 leukocytes 41 % 12-44 Blood monocytes/100 leukocytes 6 % 0-12 Automated blood eosinophils/100 leukocytes 5 % 0-10 Automated blood basophils/100 leukocytes 0 % 0-10 Blood neutrophils automated count (number/volume) 3.4 10*3 1.8-7.8 Blood lymphocytes automated count (number/volume) 2.9 10*3 1.0-4.0 Blood monocytes automated count (number/volume) 0. 4 10*3 0.0-1.0 Automated eosinophil count 0.4 10*3/uL 0 .0-0.3 Automated blood basophil count (count/volume) 0.0 10*3/uL 0.0-0.1 [id number] - 09/14/17 16:18 Serum or plasma urea nitrogen measurement (mass/volume ) 12 mg/dL 7-18 Serum or plasma creatinine measurement (mass/volume) 0.78 mg/dL 0.60-1.30 Serum or plasma urea nitrogen/creatinine mass ratio 15 NRG Serum or plasma creatinine measurement w ith calculation of estimated glomerular filtration rate > NRG Serum or plasma ferritin measurement (ma ss/volume) - 09/14/17 16:18 Serum or plasma ferritin measurement (mass/volume) 182.4 % 20.0-177.0 Complete blood count (CBC) with automate d white blood cell (WBC) differential - 09/18/17 07:14 Blood leukocytes automated count (number/volume) 7.8 10*3/uL 4.3-11.0 Blood erythrocytes automated count (number/volume) 4.21 10*6/uL 4.35-5.85 Venous blood hemoglobin measurement (mass/volume) 14.2 g/dL 11.5-16.0 Blood hematocrit (volume fraction) 41 % 35-52 Automated erythrocyte mean corpuscular volume 96 [ foz_us] 80-99 Automated erythrocyte mean corpuscular h emoglobin (mass per erythrocyte) 34 pg 25-34 Automated erythrocyte mean corpuscular h emoglobin concentration measurement (mass/volume) 35 g/dL 32-36 Automated erythrocyte distribution width ratio 12. 9 % 10.0- 14.5 Automated blood platelet count (count/volume) 161 10*3/uL 130-400 Automated blood platelet mean volume measurement 10.3 [foz_us] 7.4-10.4 Automated blood neutrophils/100 leukocytes 60 % 42-75 Automated blood lymphocytes/100 leukocytes 30 % 12-44 Blood monocytes/100 leukocytes 6 % 0-12 Automated blood eosinophils/100 leukocytes 4 % 0-10 Automated blood basophils/100 leukocytes 1 % 0-10 Blood neutrophils automated count (number/volume) 4.7 10*3 1.8-7.8 Blood lymphocytes automated count (number/volume) 2.3 10*3 1.0-4.0 Blood monocytes automated count (number/volume) 0. 5 10*3 0.0-1.0 Automated eosinophil count 0.3 10*3/uL 0 .0-0.3 Automated blood basophil count (count/volume) 0.0 10*3/uL 0.0-0.1 Comprehensive metabolic panel - 09/18/17 07:14 Serum or plasma sodium measurement (moles/volume) 139 mmol/L 135-145 Serum or plasma potassium measurement (moles/volume) 4.0 mmol/L 3.6-5.0 Serum or plasma chloride measurement (moles/volume) 105 mmol/L 98-107 Carbon dioxide 24 mmol/L 21-32 Serum or plasma anion gap determination (moles/volume) 10 mmol/L 5-14 Serum or plasma urea nitrogen measurement (mass/volume ) 11 mg/dL 7-18 Serum or plasma creatinine measurement (mass/volume) 0.77 mg/dL 0.60-1.30 Serum or plasma urea nitrogen/creatinine mass ratio 14 NRG Serum or plasma creatinine measurement w ith calculation of estimated glomerular filtration rate > NRG Serum or plasma glucose measurement (mass/volume) 147 mg/dL 70-105 Serum or plasma calcium measurement (mass/volume) 9.6 mg/dL 8.5-10.1 Serum or plasma total bilirubin measurement (mass/volu me) 0.9 mg/dL 0.1-1.0 Serum or plasma alkaline phosphatase alma surement (enzymatic activity/volume) 98 U/L 40-136 Serum or plasma aspartate aminotransfera se measurement (enzymatic activity/volume) 15 U/L 5-34 Serum or plasma alanine aminotransferase measurement (enzymatic activity/volume) 11 U/L 0-55 Serum or plasma protein measurement (mass/volume) 7.3 g/dL 6.4-8.2 Serum or plasma albumin measurement (mass/volume) 4.1 g/dL 3.2-4.5 Arterial blood gas measurement - 8 07:40 Blood pCO2 44 mm[Hg] 35-45 Blood pO2 57 mm[Hg] 79-93 Arterial blood bicarbonate measurement (moles/volume) 27 mmol/L 23-27 Arterial blood base excess by calculation 2.1 mmol /L -2.5-2.5 Arterial blood oxygen saturation measurement 89 % 94-100 * Inhaled oxygen flow rate ROOM AIR NRG Arterial blood pH measurement with patient temperature correction 7.40 7.37-7.43 Arterial blood carbon dioxide, total measurement (mole s/volume) 28.1 mmol/L 21.0-31.0 Body site LR NRG Assessment of wrist artery patency prior to arterial p uncture YES-POS NRG Setting of ventilation mode NO NR G Measurement of body temperature 96.9 NRG Complete urinalysis with reflex to cultu re - 09/18/17 12:28 Urine color determination ORANGE NRG Urine clarity determination VERY CLOUDY NRG Urine pH measurement by test strip 8 5-9 Specific gravity of urine by test strip 1.015 1.016-1.022 Urine protein assay by test strip, semi-quantitative 2+ NEGATIVE Urine glucose detection by automated test strip NE GATIVE NEGATIVE Erythrocytes detection in urine sediment by light micr oscopy 3+ NEGATIVE Urine ketones detection by automated test strip 1+ NEGATIVE Urine nitrite detection by test strip POSITIVE NEGATIVE Urine total bilirubin detection by test strip 3+ NEGATIVE Urine urobilinogen measurement by automated test strip (mass/volume) 12 mg/dL NORMAL Urine leukocyte esterase detection by dipstick 1+ NEGATIVE Automated urine sediment erythrocyte cou nt by microscopy (number/high power field) [HPF] NRG Automated urine sediment leukocyte count by microscopy (number/high power field) [HPF] NRG Bacteria detection in urine sediment by light microsco py FEW NRG Squamous epithelial cells detection in u rine sediment by light microscopy 2-5 NRG Crystals detection in urine sediment by light microsco py NONE NRG Casts detection in urine sediment by light microscopy NONE NRG Mucus detection in urine sediment by light microscopy NEGATIVE NRG Complete urinalysis with reflex to culture YES NRG Amorphous sediment detection in urine sediment by ligh t microscopy LARGE SARAH PHOSPHATE NRG Bacterial urine culture - 09/18/17 12:28 Bacterial urine culture RML NRG COLONY COUNT . NRG Whole blood basic metabolic panel - 10/18 09:48 Serum or plasma sodium measurement (moles/volume) 139 mmol/L 135-145 Serum or plasma potassium measurement (moles/volume) 4.5 mmol/L 3.6-5.0 Serum or plasma chloride measurement (moles/volume) 106 mmol/L 98-107 Carbon dioxide 22 mmol/L 21-32 Serum or plasma anion gap determination (moles/volume) 11 mmol/L 5-14 Serum or plasma urea nitrogen measurement (mass/volume ) 13 mg/dL 7-18 Serum or plasma creatinine measurement (mass/volume) 0.78 mg/dL 0.60-1.30 Serum or plasma urea nitrogen/creatinine mass ratio 17 NRG Serum or plasma creatinine measurement w ith calculation of estimated glomerular filtration rate > NRG Serum or plasma glucose measurement (mass/volume) 118 mg/dL 70-105 Serum or plasma calcium measurement (mass/volume) 10.5 mg/dL 8.5-10.1 Serum or plasma uric acid measurement (m ass/volume) - 11/14/17 09:48 Serum or plasma uric acid measurement (mass/volume) 6.9 mg/dL 2.6-7.2 Magnesium - 11/14/17 09:48 Magnesium 2.0 mg/dL 1.8-2.4 Complete blood count (CBC) with automate d white blood cell (WBC) differential - 03/24/18 17:40 Blood leukocytes automated count (number/volume) 8.6 10*3/uL 4.3-11.0 Blood erythrocytes automated count (number/volume) 4.73 10*6/uL 4.35-5.85 Venous blood hemoglobin measurement (mass/volume) 15.9 g/dL 11.5-16.0 Blood hematocrit (volume fraction) 46 % 35-52 Automated erythrocyte mean corpuscular volume 98 [ foz_us] 80-99 Automated erythrocyte mean corpuscular h emoglobin (mass per erythrocyte) 34 pg 25-34 Automated erythrocyte mean corpuscular h emoglobin concentration measurement (mass/volume) 34 g/dL 32-36 Automated erythrocyte distribution width ratio 12. 2 % 10.0- 14.5 Automated blood platelet count (count/volume) 176 10*3/uL 130-400 Automated blood platelet mean volume measurement 11.0 [foz_us] 7.4-10.4 Automated blood neutrophils/100 leukocytes 58 % 42-75 Automated blood lymphocytes/100 leukocytes 32 % 12-44 Blood monocytes/100 leukocytes 7 % 0-12 Automated blood eosinophils/100 leukocytes 2 % 0-10 Automated blood basophils/100 leukocytes 1 % 0-10 Blood neutrophils automated count (number/volume) 5.0 10*3 1.8-7.8 Blood lymphocytes automated count (number/volume) 2.8 10*3 1.0-4.0 Blood monocytes automated count (number/volume) 0. 6 10*3 0.0-1.0 Automated eosinophil count 0.2 10*3/uL 0 .0-0.3 Automated blood basophil count (count/volume) 0.1 10*3/uL 0.0-0.1 Comprehensive metabolic panel - 03/24/18 17:40 Serum or plasma sodium measurement (moles/volume) 139 mmol/L 135-145 Serum or plasma potassium measurement (moles/volume) 4.2 mmol/L 3.6-5.0 Serum or plasma chloride measurement (moles/volume) 103 mmol/L 98-107 Carbon dioxide 24 mmol/L 21-32 Serum or plasma anion gap determination (moles/volume) 12 mmol/L 5-14 Serum or plasma urea nitrogen measurement (mass/volume ) 12 mg/dL 7-18 Serum or plasma creatinine measurement (mass/volume) 0.79 mg/dL 0.60-1.30 Serum or plasma urea nitrogen/creatinine mass ratio 15 NRG Serum or plasma creatinine measurement w ith calculation of estimated glomerular filtration rate > NRG Serum or plasma glucose measurement (mass/volume) 125 mg/dL 70-105 Serum or plasma calcium measurement (mass/volume) 10.9 mg/dL 8.5-10.1 Serum or plasma total bilirubin measurement (mass/volu me) 1.1 mg/dL 0.1-1.0 Serum or plasma alkaline phosphatase alma surement (enzymatic activity/volume) 109 U/L 40-136 Serum or plasma aspartate aminotransfera se measurement (enzymatic activity/volume) 15 U/L 5-34 Serum or plasma alanine aminotransferase measurement (enzymatic activity/volume) 12 U/L 0-55 Serum or plasma protein measurement (mass/volume) 8.4 g/dL 6.4-8.2 Serum or plasma albumin measurement (mass/volume) 4.6 g/dL 3.2-4.5 Complete blood count (CBC) with automate d white blood cell (WBC) differential - 10/08/18 13:35 Blood leukocytes automated count (number/volume) 6.8 10*3/uL 4.3-11.0 Blood erythrocytes automated count (number/volume) 4.20 10*6/uL 4.35-5.85 Venous blood hemoglobin measurement (mass/volume) 14.7 g/dL 11.5-16.0 Blood hematocrit (volume fraction) 42 % 35-52 Automated erythrocyte mean corpuscular volume 100 [foz_us] 80-99 Automated erythrocyte mean corpuscular h emoglobin (mass per erythrocyte) 35 pg 25-34 Automated erythrocyte mean corpuscular h emoglobin concentration measurement (mass/volume) 35 g/dL 32-36 Automated erythrocyte distribution width ratio 12. 8 % 10.0- 14.5 Automated blood platelet count (count/volume) 165 10*3/uL 130-400 Automated blood platelet mean volume measurement 10.6 [foz_us] 7.4-10.4 Automated blood neutrophils/100 leukocytes 63 % 42-75 Automated blood lymphocytes/100 leukocytes 28 % 12-44 Blood monocytes/100 leukocytes 6 % 0-12 Automated blood eosinophils/100 leukocytes 3 % 0-10 Automated blood basophils/100 leukocytes 0 % 0-10 Blood neutrophils automated count (number/volume) 4.2 10*3 1.8-7.8 Blood lymphocytes automated count (number/volume) 1.9 10*3 1.0-4.0 Blood monocytes automated count (number/volume) 0. 4 10*3 0.0-1.0 Automated eosinophil count 0.2 10*3/uL 0 .0-0.3 Automated blood basophil count (count/volume) 0.0 10*3/uL 0.0-0.1 Comprehensive metabolic panel - 10/08/18 13:35 Serum or plasma sodium measurement (moles/volume) 139 mmol/L 135-145 Serum or plasma potassium measurement (moles/volume) 4.1 mmol/L 3.6-5.0 Serum or plasma chloride measurement (moles/volume) 103 mmol/L 98-107 Carbon dioxide 25 mmol/L 21-32 Serum or plasma anion gap determination (moles/volume) 11 mmol/L 5-14 Serum or plasma urea nitrogen measurement (mass/volume ) 10 mg/dL 7-18 Serum or plasma creatinine measurement (mass/volume) 0.78 mg/dL 0.60-1.30 Serum or plasma urea nitrogen/creatinine mass ratio 13 NRG Serum or plasma creatinine measurement w ith calculation of estimated glomerular filtration rate > NRG Serum or plasma glucose measurement (mass/volume) 132 mg/dL 70-105 Serum or plasma calcium measurement (mass/volume) 10.0 mg/dL 8.5-10.1 Serum or plasma total bilirubin measurement (mass/volu me) 0.5 mg/dL 0.1-1.0 Serum or plasma alkaline phosphatase alma surement (enzymatic activity/volume) 101 U/L 40-136 Serum or plasma aspartate aminotransfera se measurement (enzymatic activity/volume) 13 U/L 5-34 Serum or plasma alanine aminotransferase measurement (enzymatic activity/volume) 11 U/L 0-55 Serum or plasma protein measurement (mass/volume) 7.6 g/dL 6.4-8.2 Serum or plasma albumin measurement (mass/volume) 4.3 g/dL 3.2-4.5 CALCIUM CORRECTED 9.8 mg/dL 8.5-10.1 Serum or plasma C reactive protein measu rement (mass/volume) - 10/08/18 13:35 Serum or plasma C reactive protein measurement (mass/v olume) 1.35 mg/dL 0.00-0.50 Gram stain microscopy - 10/08/18 13:40 Gram stain microscopy No bacteria seen NRG Bacteria identification in wound by cult ure - 10/08/18 13:40 Bacteria identification in wound by culture UMSF NRG FREE TEXT EXTERNAL AND NRG QUANTITY OF GROWTH Rare NRG Methicillin resistant Staphylococcus aur eus (MRSA) screening culture - 10/12/18 12:10 Methicillin resistant Staphylococcus aureus (MRSA) scr eening culture NEG NRG Complete blood count (CBC) with automate d white blood cell (WBC) differential - 06/03/19 17:02 Blood leukocytes automated count (number/volume) 7.3 10*3/uL 4.3-11.0 Blood erythrocytes automated count (number/volume) 4.51 10*6/uL 4.35-5.85 Venous blood hemoglobin measurement (mass/volume) 13.6 g/dL 11.5-16.0 Blood hematocrit (volume fraction) 42 % 35-52 Automated erythrocyte mean corpuscular volume 94 [ foz_us] 80-99 Automated erythrocyte mean corpuscular h emoglobin (mass per erythrocyte) 30 pg 25-34 Automated erythrocyte mean corpuscular h emoglobin concentration measurement (mass/volume) 32 g/dL 32-36 Automated erythrocyte distribution width ratio 13. 4 % 10.0- 14.5 Automated blood platelet count (count/volume) 183 10*3/uL 130-400 Automated blood platelet mean volume measurement 11.2 [foz_us] 7.4-10.4 Automated blood neutrophils/100 leukocytes 54 % 42-75 Automated blood lymphocytes/100 leukocytes 36 % 12-44 Blood monocytes/100 leukocytes 7 % 0-12 Automated blood eosinophils/100 leukocytes 3 % 0-10 Automated blood basophils/100 leukocytes 0 % 0-10 Blood neutrophils automated count (number/volume) 3.9 10*3 1.8-7.8 Blood lymphocytes automated count (number/volume) 2.6 10*3 1.0-4.0 Blood monocytes automated count (number/volume) 0. 5 10*3 0.0-1.0 Automated eosinophil count 0.2 10*3/uL 0 .0-0.3 Automated blood basophil count (count/volume) 0.0 10*3/uL 0.0-0.1 PT panel in platelet poor plasma by coag ulation assay - 06/03/19 17:02 Prothrombin time (PT) in platelet poor plasma by coagu lation assay 12.3 s 12.2-14.7 INR in platelet poor plasma or blood by coagulation as say 0.9 0.8-1.4 Activated partial thromboplastin time (a PTT) in platelet poor plasma bycoagulation assay - 06/03/19 17:02 Activated partial thromboplastin time (a PTT) in platelet poor plasma bycoagulation assay 32 s 24-35 Serum or plasma troponin i.cardiac measu rement (mass/volume) - 06/03/19 17:02 Serum or plasma troponin i.cardiac measurement (mass/v olume) < ng/mL <0.028 Comprehensive metabolic panel - 06/03/19 17:02 Serum or plasma sodium measurement (moles/volume) 138 mmol/L 135-145 Serum or plasma potassium measurement (moles/volume) 4.0 mmol/L 3.6-5.0 Serum or plasma chloride measurement (moles/volume) 101 mmol/L 98-107 Carbon dioxide 26 mmol/L 21-32 Serum or plasma anion gap determination (moles/volume) 11 mmol/L 5-14 Serum or plasma urea nitrogen measurement (mass/volume ) 6 mg/dL 7-18 Serum or plasma creatinine measurement (mass/volume) 0.90 mg/dL 0.60-1.30 Serum or plasma urea nitrogen/creatinine mass ratio 7 NRG Serum or plasma creatinine measurement w ith calculation of estimated glomerular filtration rate > NRG Serum or plasma glucose measurement (mass/volume) 250 mg/dL 70-105 Serum or plasma calcium measurement (mass/volume) 9.5 mg/dL 8.5-10.1 Serum or plasma total bilirubin measurement (mass/volu me) 0.3 mg/dL 0.1-1.0 Serum or plasma alkaline phosphatase alma surement (enzymatic activity/volume) 151 U/L 40-136 Serum or plasma aspartate aminotransfera se measurement (enzymatic activity/volume) 19 U/L 5-34 Serum or plasma alanine aminotransferase measurement (enzymatic activity/volume) 17 U/L 0-55 Serum or plasma protein measurement (mass/volume) 7.2 g/dL 6.4-8.2 Serum or plasma albumin measurement (mass/volume) 4.0 g/dL 3.2-4.5 CALCIUM CORRECTED 9.5 mg/dL 8.5-10.1 Magnesium - 06/03/19 17:02 Magnesium 1.8 mg/dL 1.6-2.4 Myoglobin, serum - 06/03/19 17:02 Myoglobin, serum 21.5 ng/mL 10.0-92.0 Lipase - 06/03/19 17:02 Lipase 31 U/L 8-78 THYROID STIMULATING HORMONE - 06/03/19 1 7:02 THYROID STIMULATING HORMONE 1.08 u[iU]/mL 0.35-4.94 Serum or plasma thyroxine (T4) free josey urement (mass/volume) - 06/03/19 17:02 Serum or plasma thyroxine (T4) free measurement (mass/ volume) 1.15 ng/dL 0.70-1.48 Serum or plasma C reactive protein measu rement (mass/volume) - 06/03/19 17:02 Serum or plasma C reactive protein measurement (mass/v olume) 1.72 mg/dL 0.00-0.50 Serum or plasma lithium measurement (mol es/volume) - 06/03/19 17:02 BNP PT 19.5 pg/mL <100.0 Complete urinalysis with reflex to cultu re - 06/03/19 18:32 Urine color determination YELLOW NRG Urine clarity determination SL CLOUDY N RG Urine pH measurement by test strip 8.0 5-9 Specific gravity of urine by test strip 1.010 1.016-1.022 Urine protein assay by test strip, semi-quantitative NEGATIVE NEGATIVE Urine glucose detection by automated test strip 1+ NEGATIVE Erythrocytes detection in urine sediment by light micr oscopy NEGATIVE NEGATIVE Urine ketones detection by automated test strip NE GATIVE NEGATIVE Urine nitrite detection by test strip NEGATIVE NEGATIVE Urine total bilirubin detection by test strip NEGA TIVE NEGATIVE Urine urobilinogen measurement by automated test strip (mass/volume) 0.2 mg/dL < = 1.0 Urine leukocyte esterase detection by dipstick TRA CE NEGATIVE Automated urine sediment erythrocyte cou nt by microscopy (number/high power field) RARE NRG Automated urine sediment leukocyte count by microscopy (number/high power field) [HPF] NRG Bacteria detection in urine sediment by light microsco py FEW NRG Squamous epithelial cells detection in u rine sediment by light microscopy 5-10 NRG Crystals detection in urine sediment by light microsco py NONE NRG Casts detection in urine sediment by light microscopy NONE NRG Mucus detection in urine sediment by light microscopy NEGATIVE NRG Complete urinalysis with reflex to culture NO NRG Urine drug screening test - 06/03/19 18: 32 Urine phencyclidine detection by screening method NEGATIVE NEGATIVE Urine benzodiazepines detection by screening method NEGATIVE NEGATIVE Urine cocaine detection NEGATIVE NEGATI VE Urine amphetamines detection by screening method N EGATIVE NEGATIVE Urine methamphetamine detection by screening method NEGATIVE NEGATIVE Urine cannabinoids detection by screening method P OSITIVE NEGATIVE Urine opiates detection by screening method POSITI VE NEGATIVE Urine barbiturates detection NEGATIVE N EGATIVE Screening urine tricyclic antidepressants detection NEGATIVE NEGATIVE Urine methadone detection by screening method NEGA TIVE NEGATIVE Urine oxycodone detection NEGATIVE NEGA TIVE Urine propoxyphene detection NEGATIVE N EGATIVE Influenza virus A and B antigen detectio n - 06/03/19 18:37 FLU RESULT NEGATIVE FOR INFLUENZA A AND B ANTIGENS BY IA NRG Serum or plasma troponin i.cardiac measu rement (mass/volume) - 06/03/19 21:53 Serum or plasma troponin i.cardiac measurement (mass/v olume) < ng/mL <0.028 Complete blood count (CBC) with automate d white blood cell (WBC) differential - 06/04/19 05:05 Blood leukocytes automated count (number/volume) 5.4 10*3/uL 4.3-11.0 Blood erythrocytes automated count (number/volume) 3.83 10*6/uL 4.35-5.85 Venous blood hemoglobin measurement (mass/volume) 11.5 g/dL 11.5-16.0 Blood hematocrit (volume fraction) 36 % 35-52 Automated erythrocyte mean corpuscular volume 95 [ foz_us] 80-99 Automated erythrocyte mean corpuscular h emoglobin (mass per erythrocyte) 30 pg 25-34 Automated erythrocyte mean corpuscular h emoglobin concentration measurement (mass/volume) 32 g/dL 32-36 Automated erythrocyte distribution width ratio 13. 2 % 10.0- 14.5 Automated blood platelet count (count/volume) 155 10*3/uL 130-400 Automated blood platelet mean volume measurement 11.1 [foz_us] 7.4-10.4 Automated blood neutrophils/100 leukocytes 51 % 42-75 Automated blood lymphocytes/100 leukocytes 38 % 12-44 Blood monocytes/100 leukocytes 7 % 0-12 Automated blood eosinophils/100 leukocytes 3 % 0-10 Automated blood basophils/100 leukocytes 0 % 0-10 Blood neutrophils automated count (number/volume) 2.8 10*3 1.8-7.8 Blood lymphocytes automated count (number/volume) 2.1 10*3 1.0-4.0 Blood monocytes automated count (number/volume) 0. 4 10*3 0.0-1.0 Automated eosinophil count 0.2 10*3/uL 0 .0-0.3 Automated blood basophil count (count/volume) 0.0 10*3/uL 0.0-0.1 Comprehensive metabolic panel - 06/04/19 05:05 Serum or plasma sodium measurement (moles/volume) 138 mmol/L 135-145 Serum or plasma potassium measurement (moles/volume) 4.1 mmol/L 3.6-5.0 Serum or plasma chloride measurement (moles/volume) 104 mmol/L 98-107 Carbon dioxide 27 mmol/L 21-32 Serum or plasma anion gap determination (moles/volume) 7 mmol/L 5-14 Serum or plasma urea nitrogen measurement (mass/volume ) 8 mg/dL 7-18 Serum or plasma creatinine measurement (mass/volume) 0.72 mg/dL 0.60-1.30 Serum or plasma urea nitrogen/creatinine mass ratio 11 NRG Serum or plasma creatinine measurement w ith calculation of estimated glomerular filtration rate > NRG Serum or plasma glucose measurement (mass/volume) 221 mg/dL 70-105 Serum or plasma calcium measurement (mass/volume) 8.8 mg/dL 8.5-10.1 Serum or plasma total bilirubin measurement (mass/volu me) 0.2 mg/dL 0.1-1.0 Serum or plasma alkaline phosphatase alam surement (enzymatic activity/volume) 117 U/L 40-136 Serum or plasma aspartate aminotransfera se measurement (enzymatic activity/volume) 16 U/L 5-34 Serum or plasma alanine aminotransferase measurement (enzymatic activity/volume) 15 U/L 0-55 Serum or plasma protein measurement (mass/volume) 6.0 g/dL 6.4-8.2 Serum or plasma albumin measurement (mass/volume) 3.3 g/dL 3.2-4.5 CALCIUM CORRECTED 9.4 mg/dL 8.5-10.1 Lipid 1996 panel - 06/04/19 05:05 Serum or plasma triglyceride measurement (mass/volume) 110 mg/dL <150 Serum or plasma cholesterol measurement (mass/volume) 166 mg/dL < 200 Serum or plasma cholesterol in HDL measurement (mass/v olume) 43 mg/dL 40-60 Cholesterol in LDL [mass/volume] in serum or plasma by direct assay 117 mg/dL 1-129 Serum or plasma cholesterol in VLDL measurement (mass/ volume) 22 mg/dL 5-40 Encounters ACCT No. Visit Date/Time Discharge Status Pt. Type Provider Facility Loc./Unit Complaint [id number] 06/15/2018 14:33:54 06/15/2018 23:59: 59 [facility] Jose Corona [id number] 12/09/2017 11:57:08 12/09/2017 23:59: 59 [facility] Adam Maldonado [id number] 10/31/2017 16:06:38 10/31/2017 23:59: 59 [facility] Outpatient MarcecorineAdam [id number] 10/07/2017 12:22:44 10/07/2017 23:59: 59 [facility] Adam Maldonado [id number] 10/07/2017 10:54:33 10/07/2017 23:59: 59 [facility] Jose Corona [id number] 09/29/2017 10:15:14 09/29/2017 23:59: 59 [facility] Out[facility] Jose Corona [id number] 08/18/2017 15:49:37 08/18/2017 23:59: 59 [facility] Jose Corona [id number] 08/07/2019 11:00:00 04/21/2 020 23:59:59 [facility] Outpatient MONIQUE JIM Rai [employer] [facility] LAB [id number] 06/29/2019 08:52:00 23:59:59 CLS Outpatient RICARDO CHACKO [employer] [facility] RAD SWELLING OF RIG HT LOWER EXTREMITY [id number] 06/27/2019 11:48:00 23:59:59 CLS Outpatient DAMARIS SHEPARD [facility] CARD CHEST PAIN, SOB [id number] 06/21/2019 14:10:00 00:01:00 DIS Outpatient JOSE GARZA [facility] ONC [id number] 06/03/2019 19:36:00 13:55:00 DIS Outpatient SAYRA WADE MD [facility] 4TH CHEST PAIN, SOA , SINUS TACHYCARDIA [id number] 05/17/2019 13:05:00 23:59:59 CLS Outpatient RICARDO CHACKO [employer] [facility] CARD DVT [id number] 05/08/2019 13:10:00 23:59:59 CLS Outpatient RICARDO CHACKO [employer] [facility] RAD DVT [id number] 04/27/2019 10:08:00 23:59:59 CLS Preadmit RICARDO CHACKO [employer] [facility] CARD PULM HTN [id number] 03/21/2019 10:47:00 00:01:00 DIS Outpatient JOSE GARZA [facility] ONC [id number] 02/22/2019 14:07:00 23:59:59 CLS Outpatient RICARDO CHACKO [employer] [facility] RAD SWELLING OF RIG HT LOWER EXTREMITY,THROMBOPHILIA [id number] 12/19/2018 14:42:00 00:01:00 DIS Outpatient JOSE GARZA [facility] ONC [id number] 10/12/2018 11:37:00 18:50:00 DIS Outpatient BRANDI DIAZ DO [facility] SDC SEBACEOUS CYST RIGHT NE CK [id number] 10/10/2018 05:44:00 10:43:00 DIS Outpatient BRANDI DIAZ DO [facility] PREOP SEBACEOUS CYST RIGHT NE CK [id number] 10/08/2018 12:33:00 14:20:00 DIS Emergency EVERETT ERNST [employer]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 [facility] ER LUMP ON R SIDE COLLARBO NE OOZING [id number] 09/28/2018 09:08:00 23:59:59 CLS Outpatient JIM AMAYA [facility] RAD NECK MASS [id number] 09/26/2018 13:55:00 23:59:59 CLS Outpatient JIM AMAYA [facility] LAB [id number] 09/20/2018 08:56:00 23:59:59 CLS Outpatient JIM AMAYA [facility] RAD NECK MASS [id number] 09/13/2018 10:09:00 00:01:00 DIS Outpatient JOSE GARZA [facility] ONC [id number] 06/21/2018 08:38:00 23:59:59 CLS Outpatient RICARDO CHACKO [employer] SERVICES COORDINATOR [facility] RAD LEFT LEG PAIN,L EFT LEG SWELLING [id number] 03/24/2018 15:49:00 19:30:00 DIS Emergency JHOAN RODRIGUEZ [facility] ER COPD/SOB [id number] 10/20/2017 11:00:00 018 00:01:00 DIS Outpatient JOSE GARZA [facility] ONC [id number] 11/14/2017 08:00:00 07/30/2 018 23:59:59 CLS Outpatient KINGS POLLARD, ADAM [facility] HH KIDNEY STONES [id number] 10/27/2017 13:15:00 23:59:59 CLS Preadmit RICARDO CHACKO [employer] SERVICES COORDINATOR [facility] RAD DENSE BREAST TISSUE, FA JUDY HISTORY OF BREAST CA [id number] 09/18/2017 07:05:00 018 13:00:00 DIS Emergency NICOLE POLLARD, MARIBELL Jones [facility] ER SOB [id number] 09/15/2017 11:34:00 018 23:59:59 CLS Outpatient MANA DUENAS APRN [facility] RAD J44.1 COPD [id number] 09/14/2017 08:00:00 018 23:59:59 CLS Outpatient MANA DUENAS APRN [facility] LAB COPD EXACERBATI ON [id number] 07/27/2017 15:14:00 018 23:59:59 CLS Outpatient JERRY POLLARD, MAI Vieira [facility] RAD J44.9 [id number] 03/31/2017 14:48:00 018 00:01:00 DIS Outpatient JOSE GARZA [facility] ONC [id number] 06/07/2017 19:17:00 018 21:00:00 DIS Emergency SUJATA EVERETT [employer] SERVICES COORDINATOR [facility] ER FALL WITH R SIDE AND BA CK PAIN, HURTS TO BREATHE [id number] 01/10/2017 10:39:00 017 23:59:59 CLS Outpatient MANA DUENAS APRN [facility] RAD J44.1 R06.00 [id number] 11/04/2016 14:50:00 017 00:01:00 DIS Outpatient JOSE GARZA [facility] ONC [id number] 12/15/2016 17:39:00 017 18:28:00 DIS Emergency PATRICE PAREDES APRN [facility] ER ABDOMINAL/BACK PAIN [id number] 11/07/2016 07:59:00 017 13:50:00 DIS Emergency MARIBELL RIVERA MD [facility] ER BACK PAIN [id number] 10/12/2016 15:24:00 017 23:59:59 CLS Outpatient MYESHA DO MIKAL Monzon [facility] RT J44.9 M32.9 [id number] 10/11/2016 13:48:00 017 23:59:59 CLS Outpatient RICARDO CHACKO [employer] SERVICES COORDINATOR [facility] RAD LUMP OF RT [address] N63 [id number] 09/21/2016 14:00:00 14:37:00 DIS Outpatient MANA DUENAS APRN [facility] SLEEP JUDI [id number] 04/07/2016 12:56:00 16:56:00 DIS Emergency CYNTHIA POLLARD, JENNY Zarate [facility] ER UTI SYMPTOMS EL EV BP/PULSE [id number] 04/05/2016 05:03:00 07:45:00 DIS Emergency FLORIAN OSULLIVAN DO [facility] ER POSSIBLE KIDNEY STONES [id number] 12/18/2015 10:58:00 00:01:00 DIS Outpatient JOSE GARZA [facility] ONC [id number] 01/16/2016 16:34:00 016 21:27:00 DIS Emergency JENNY MARIE MD [facility] ER BOWEL PROBLLEMS [id number] 11/05/2015 16:09:00 016 23:59:59 CLS Outpatient JOSE GARZA [facility] LABNPT HYPER COAGULATION [id number] 10/13/2015 13:33:00 16:33:00 DIS Emergency RODNEY SHAW MD [facility] ER CHEST/LEFT ARM/ JAW PAIN [id number] 06/04/2015 14:12:00 016 00:01:00 DIS Outpatient JOSE GARZA V [facility] ONC [id number] 07/14/2015 23:16:00 016 02:40:00 DIS Emergency COLIN POLLARD, RODNEY Rai [facility] ER LOWER BACK HI P PAIN [id number] 07/03/2015 12:23:00 016 23:59:59 CLS Outpatient MILEY SANCHEZ CAR[employer] SERVICES COORDINATOR [facility] RAD THORAICALGIA [id number] 06/03/2015 13:07:00 016 23:59:59 CLS Outpatient RICARDO CHACKO [employer] SERVICES COORDINATOR [facility] ONC [id number] 03/31/2015 13:02:00 23:59:59 CLS Outpatient DANIEL PORTER DO [facility] RAD LUMBAGO,RADICULOPATHY [id number] 10/28/2014 08:04:00 015 00:01:00 DIS Outpatient JOSE GARZA [facility] ONC [id number] 08/30/2014 17:42:00 23:59:59 CLS Outpatient MONICA POLLARD, MAI Alexandra [facility] LABNPT ANEMIA [id number] 08/13/2014 15:17:00 015 23:05:00 DIS Inpatient COLTON POLLARD, HERMINIA Guzman [facility] 4TH N/V;COPD;ABD PAIN [id number] 05/10/2014 10:06:00 015 00:01:00 DIS Outpatient JOSE GARZA [facility] ONC [id number] 07/16/2014 08:48:00 015 23:59:59 CLS Outpatient RADHA POLLARD, HAZEL Fleming [facility] RAD ELEVATED LIVER ENZYMES [id number] 07/15/2014 09:30:00 015 23:59:59 CLS Preadmit HAZEL GARCIA MD [facility] RAD OROPHARYNGEAL DYSPHAGIA [id number] 07/12/2014 11:00:00 23:59:59 CLS Outpatient HAZEL GARCIA MD [facility] LABNPT UTI [id number] 05/16/2014 17:20:00 015 20:30:00 DIS Emergency JEWELS ROMANO [facility] ER POSS BLOOD CLOT [id number] 02/19/2014 13:11:00 014 23:59:59 CLS Outpatient RICARDO CHACKO CAR[employer] SERVICES COORDINATOR [facility] ONC [id number] 10/24/2013 10:25:00 014 00:01:00 DIS Outpatient JOSE GARZA [facility] ONC [id number] 10/21/2013 13:47:00 014 17:32:00 DIS Emergency PATRICE PAREDES APRN [facility] ER L LEG PAIN [id number] 10/17/2013 13:30:00 014 23:59:59 CLS Outpatient CANDE GRIFFIN MD [facility] RAD LUMBAGO [id number] 10/15/2013 17:48:00 014 23:59:59 CLS Outpatient HAZEL GARCIA MD [facility] LABNPT SPASM OF MUSCLES [id number] 08/27/2013 14:07:00 014 23:59:59 CLS Outpatient MIKAL BRUNNER DO [facility] RT COPD,ASTHMA [id number] 06/11/2013 13:49:00 00:01:00 DIS Outpatient MONICO VALLE MD, V [facility] ONC [id number] 07/03/2013 00:06:00 014 02:37:00 DIS Emergency RODNEY SHAW MD [facility] ER L EYE PAIN,MOSES SEA [id number] 01/11/2013 15:31:00 013 00:01:00 DIS Outpatient LEONARD POLLARD, MONICO kilgore [facility] ONC [id number] 12/14/2012 15:12:00 23:59:59 CLS Outpatient MONICO VALLE MD [facility] ONC [id number] 11/22/2012 06:00:00 013 12:35:00 DIS Outpatient MAI ANDERSON MD [facility] SDC INCISIONAL HERNIA X3 [id number] 11/20/2012 10:26:00 013 23:59:59 CLS Outpatient MAI ANDERSON MD [facility] PREOP INCISIONAL HERNIA X3 [id number] 11/14/2012 10:56:00 23:59:59 CLS Outpatient [id number] 11/14/2012 11:08:00 013 11:44:00 DIS Emergency JENNY MARIE MD [facility] ER BACK PAIN [id number] 08/29/2019 12:05:[address] Outpatient KAYLAJOSE [facility] ONC [id number] 05/16/2014 12:32:00 Document Registration [id number] 07/17/2012 16:14:00 Document Registration [id number] 06/12/2012 13:12:00 Document Registration [id number] 04/20/2012 07:25:00 Document Registration [id number] 04/14/2012 10:17:00 Document Registration [id number] 04/02/2012 16:11:00 Document Registration [id number] 03/22/2012 02:00:00 Document Registration [id number] 10/29/2011 15:30:00 Document Registration [id number] 09/15/2011 20:41:00 Document Registration [id number] 08/29/2011 09:57:00 Document Registration [id number] 08/17/2011 03:30:00 Document Registration [id number] 05/16/2011 12:59:00 Document Registration [id number] 05/06/2011 09:02:00 Document Registration [id number] 05/05/2011 10:14:00 Document Registration [id number] 05/03/2011 12:42:00 Document Registration [id number] 05/03/2011 04:10:00 Document Registration [id number] 04/26/2011 10:35:00 Document Registration [id number] 04/25/2011 02:52:00 Document Registration [id number] 04/21/2011 09:49:00 Document Registration [id number] 04/08/2011 14:16:00 Document Registration [id number] 03/06/2011 10:42:00 Document Registration [id number] 02/22/2011 12:20:00 Document Registration [id number] 02/19/2011 08:19:00 Document Registration [id number] 02/11/2011 12:42:00 Document Registration [id number] 02/04/2011 14:52:00 Document Registration [id number] 01/18/2011 14:16:00 Document Registration [id number] 11/30/2010 14:27:00 Document Registration [id number] 11/28/2010 19:46:00 Document Registration [id number] 11/26/2010 15:23:00 Document Registration [id number] 11/24/2010 14:12:00 Document Registration [id number] 10/25/2010 21:40:00 Document Registration [id number] 10/21/2010 01:00:00 Document Registration [id number] 10/19/2010 08:34:00 Document Registration [id number] 07/18/2014 13:49:00 07/18/2014 23:59: 59 CLS Outpatient RUPERTO BOWIEFADUMO Robert [id number] 06/27/2014 13:42:00 06/27/2014 23:59: 59 CLS Outpatient HAZEL GARCIA MD [id number] 03/22/2014 14:59:00 03/22/2014 23:59: 59 CLS Outpatient HAZEL GARCIA MD [id number] 03/22/2014 14:59:00 03/22/2014 23:59: 59 CLS Outpatient HAZEL GARCIA MD [id number] 03/15/2014 15:41:00 03/15/2014 23:59: 59 CLS Outpatient FADUMO HICKEY DO [id number] 02/13/2014 00:00:00 02/13/2014 23:59: 59 CLS Outpatient HAZEL GARCIA MD [id number] 12/11/2013 13:57:00 12/11/2013 23:59: 59 CLS Outpatient HAZEL GARCIA MD [id number] 11/08/2013 14:36:00 11/08/2013 23:59: 59 CLS Outpatient HAZEL GARCIA MD [id number] 10/09/2013 14:02:00 10/09/2013 23:59: 59 CLS Outpatient HAZEL GARCIA MD [id number] 07/19/2013 08:54:00 07/19/2013 23:59: 59 CLS Outpatient [id number] 07/11/2013 14:37:00 07/11/2013 23:59: 59 CLS Outpatient HAZEL GARCIA MD [id number] 06/05/2013 15:27:00 06/05/2013 23:59: 59 CLS Outpatient HAZEL GARCIA MD [id number] 06/05/2013 15:27:00 06/05/2013 23:59: 59 CLS Outpatient HAZEL GARCIA MD [id number] 05/10/2013 14:37:00 05/10/2013 23:59: 59 CLS Outpatient JUSTICE TRIPATHI APRN Radha [id number] 05/01/2013 15:14:00 05/01/2013 23:59: 59 CLS Outpatient HAZEL GARCIA MD [id number] 05/01/2013 15:14:00 05/01/2013 23:59: 59 CLS Outpatient HAZEL GARCIA MD [id number] 03/27/2013 15:20:00 03/27/2013 23:59: 59 CLS Outpatient HAZEL GARCIA MD [id number] 03/27/2013 15:20:00 03/27/2013 23:59: 59 CLS Outpatient HAZEL GARCIA MD [id number] 03/13/2013 13:14:00 03/13/2013 23:59: 59 CLS Outpatient ANDERSON SEGURA PSYD [id number] 02/06/2013 14:09:00 02/06/2013 23:59: 59 CLS Outpatient FADUMO HICKEY DO Robert [id number] 02/06/2013 14:09:00 02/06/2013 23:59: 59 CLS Outpatient FADUMO HICKEY DO Robert [id number] 12/28/2012 16:14:00 12/28/2012 23:59: 59 CLS Outpatient ANDERSON SEGURA PSYD [id number] 06/20/2012 13:54:00 06/20/2012 23:59: 59 CLS Outpatient HERMINIA SEGURA MD [id number] 06/20/2012 13:54:00 06/20/2012 23:59: 59 CLS Outpatient [id number] 05/01/2012 16:50:00 05/01/2012 23:59: 59 CLS Outpatient HERMINIA SEGURA MD [id number] 04/10/2012 08:15:00 04/10/2012 23:59: 59 CLS Outpatient [id number] 02/01/2012 13:55:00 02/01/2012 23:59:5 9 CLS Outpatient [id number] 02/01/2012 13:55:00 02/01/2012 23:59: 59 CLS Outpatient [id number] 12/09/2012 11:08:00 Document Registration [id number] 11/14/2012 16:25:00 Document Registration [id number] 08/08/2012 14:35:00 Document Registration
== END 2019-09-01 14:40 | disposition home or self-care (01) ==
LOC: EDUNIT# 13:51 → ER 13:52
DX: M23.91 Unspecified internal derangement of right knee (principal); M25.561 Pain in right knee; G89.29 Other chronic pain; J44.9 Chronic obstructive pulmonary disease, unspecified; E11.51 Type 2 diabetes mellitus with diabetic peripheral angiopathy without gangrene; E11.40 Type 2 diabetes mellitus with diabetic neuropathy, unspecified; I10 Essential (primary) hypertension; K21.9 Gastro-esophageal reflux disease without esophagitis; E03.9 Hypothyroidism, unspecified; F41.9 Anxiety disorder, unspecified; F32.9 Major depressive disorder, single episode, unspecified; Z82.49 Family history of ischemic heart disease and other diseases of the circulatory system; Z86.718 Personal history of other venous thrombosis and embolism; Z86.711 Personal history of pulmonary embolism; Z88.8 Allergy status to other drugs, medicaments and biological substances; Z88.6 Allergy status to analgesic agent; Z88.2 Allergy status to sulfonamides; Z90.49 Acquired absence of other specified parts of digestive tract; Z95.5 Presence of coronary angioplasty implant and graft; Z90.710 Acquired absence of both cervix and uterus; X50.1XXA Overexertion from prolonged static or awkward postures, initial encounter
CPT/HCPCS: 73562

== ENCOUNTER → 2019-09-06 | Outpatient (CLI) | payer MEDICARE, MEDICAID ==
--- NOTE | 2019-09-06 18:52 | Diagnostic Imaging Report ---
EXAMINATION: Magnetic resonance imaging of the right knee without intravenous contrast. DATE: September 06, 2019. COMPARISON: Right knee radiographs September 01, 2019. INDICATION: 54-year-old female, right knee pain. Recent twisting injury. TECHNIQUE: Multiplanar, multisequence non contrast enhanced MR imaging was accomplished. FINDINGS: MENISCI: The medial meniscus is intact. The lateral meniscus is intact. LIGAMENTS AND TENDONS: The anterior and posterior cruciate ligaments are intact. The medial collateral ligament is intact. The iliotibial band, mid third lateral capsular ligament, fibular collateral ligament, biceps femoris tendon and conjoined tendon are intact. The quadriceps tendon and patella ligament are intact. JOINT: The articular cartilage surfaces are intact. There is no knee joint effusion, prominent synovitis, or intra-articular body. BONE: There is low-level edema-like signal in the lateral tibial plateau without identified fracture line most consistent with a bone contusion. There is no identified acute fracture. There is no evidence of osteonecrosis. There are patchy foci of T2 hyperintense signal in the marrow which may relate to islands of red marrow. BURSAE AND SOFT TISSUES: There is no Pelletier's cyst. There is low level edema in the tibialis anterior muscle and extensor digitorum longus muscle. IMPRESSION: 1. Intact menisci and cruciate ligaments. Additional ligaments and tendons are intact. 2. Bone contusion of the lateral tibial plateau. No acute fracture. 3. Increased signal in the tibialis anterior and extensor digitorum longus muscles which may reflect low-grade muscle contusions and/or muscle sprains. 4. Intact articular cartilage. No knee joint effusion. Dictated by: Dictated on workstation # [id number]
== END ==
LOC: RAD 15:03
PROVIDERS: ATTEND Nurse Practitioner Community Health
DX: M25.561 Pain in right knee (principal); S80.02XA Contusion of left knee, initial encounter
CPT/HCPCS: 73721

== ENCOUNTER → 2019-10-02 | Outpatient (RCR) | payer MEDICARE, MEDICAID ==
[~2019-10-02] MED LIST changes: +FERRIC CARBOXYMALTOSE (CANCER) 750 MG in NS (IVPB) CANCER CENTER 250 ML IV SCH; +ONDANSETRON IV ONE
== END | disposition home or self-care (01) ==
LOC: ONC 07-04 14:29
PROVIDERS: ATTEND Internal Medicine Hematology & Oncology
DX: D68.62 Lupus anticoagulant syndrome (principal); D50.0 Iron deficiency anemia secondary to blood loss (chronic); E11.9 Type 2 diabetes mellitus without complications; E03.9 Hypothyroidism, unspecified; J44.9 Chronic obstructive pulmonary disease, unspecified; F32.9 Major depressive disorder, single episode, unspecified; F17.200 Nicotine dependence, unspecified, uncomplicated; G47.33 Obstructive sleep apnea (adult) (pediatric); R00.0 Tachycardia, unspecified; N18.9 Chronic kidney disease, unspecified; M19.90 Unspecified osteoarthritis, unspecified site; F41.9 Anxiety disorder, unspecified; Z98.890 Other specified postprocedural states; Z90.710 Acquired absence of both cervix and uterus; Z90.49 Acquired absence of other specified parts of digestive tract; Z95.828 Presence of other vascular implants and grafts; Z86.718 Personal history of other venous thrombosis and embolism; Z86.711 Personal history of pulmonary embolism; Z86.2 Personal history of diseases of the blood and blood-forming organs and certain disorders involving the immune mechanism; Z79.01 Long term (current) use of anticoagulants; Z45.2 Encounter for adjustment and management of vascular access device
CPT/HCPCS: 36591; 96365; 96375; 96523

== ENCOUNTER → 2019-10-16 | Outpatient (CLI) | payer MEDICARE, MEDICAID ==
[~2019-10-16] MED LIST changes: -FERRIC CARBOXYMALTOSE (CANCER) 750 MG in NS (IVPB) CANCER CENTER 250 ML IV SCH; -ONDANSETRON IV ONE
--- NOTE | 2019-10-16 16:14 | Diagnostic Imaging Report ---
EXAMINATION: MRI lumbar spine without contrast from 10/16/2019. TECHNIQUE: Multiplanar, multisequence MRI of the lumbar spine was performed without contrast. INDICATION: Chronic low back pain. COMPARISON: Comparison made to 03/31/2015. FINDINGS: Alignment of the spine is preserved. There are no fractures or subluxations. The tip of the conus is unremarkable in appearance and location. There is a transitional-type appearing vertebral body which will be labeled on the sagittal imaging. The S1 vertebral body is partially lumbarized. The L1-L2 through the L3-L4 levels are unremarkable. L4-L5 demonstrates minimal broad-based bulging disc material flattening the ventral thecal sac without central stenosis. There is bilateral facet and ligamentum flavum hypertrophy. There is minimal bilateral neuroforaminal stenosis. L5-S1: There is intervertebral disc space narrowing, disc desiccation, and a rather prominent broad-based bulging disc containing a central annular tear. These findings are slightly more diffuse than on previous imaging causing flattening of the ventral thecal sac but no central stenosis. They do abut the transiting right nerve root without obvious encroachment. Correlate with symptoms. There is bilateral mild neuroforaminal narrowing slightly greater on the right. The visualized intra-abdominal structures are unremarkable. IMPRESSION: 1. Degenerative findings predominantly at the L5-S1 level, slightly advanced when compared to previous but without significant central or neuroforaminal stenosis. Dictated by: Dictated on workstation # [id number]
== END ==
LOC: RAD 12:54
PROVIDERS: ATTEND Physician Assistant Medical
DX: M47.817 Spondylosis without myelopathy or radiculopathy, lumbosacral region (principal); Z79.891 Long term (current) use of opiate analgesic; Z79.899 Other long term (current) drug therapy
CPT/HCPCS: 72148

== ENCOUNTER 2019-11-20 13:02 | Outpatient (RCR) | payer MEDICARE, MEDICAID | END 2019-11-28 13:57 | disposition home or self-care (01) | LOC: ONC 13:02 | PROVIDERS: ATTEND Internal Medicine Hematology & Oncology | DX: Z45.2 Encounter for adjustment and management of vascular access device (principal); D68.62 Lupus anticoagulant syndrome; D50.0 Iron deficiency anemia secondary to blood loss (chronic); E03.9 Hypothyroidism, unspecified; J44.9 Chronic obstructive pulmonary disease, unspecified; G47.33 Obstructive sleep apnea (adult) (pediatric); N18.9 Chronic kidney disease, unspecified; M19.90 Unspecified osteoarthritis, unspecified site; E11.22 Type 2 diabetes mellitus with diabetic chronic kidney disease; D63.1 Anemia in chronic kidney disease; F41.9 Anxiety disorder, unspecified; F32.9 Major depressive disorder, single episode, unspecified; F17.200 Nicotine dependence, unspecified, uncomplicated; Z98.890 Other specified postprocedural states; Z90.710 Acquired absence of both cervix and uterus; Z90.49 Acquired absence of other specified parts of digestive tract; Z95.828 Presence of other vascular implants and grafts; Z86.718 Personal history of other venous thrombosis and embolism; Z86.711 Personal history of pulmonary embolism; Z86.2 Personal history of diseases of the blood and blood-forming organs and certain disorders involving the immune mechanism; Z79.01 Long term (current) use of anticoagulants | CPT/HCPCS: 96523 ==

== ENCOUNTER → 2020-01-02 | Outpatient (CLI) | payer MEDICARE, MEDICAID | LOC: LAB 13:42 | PROVIDERS: ATTEND Nurse Practitioner Community Health | DX: I10 Essential (primary) hypertension (principal); E11.9 Type 2 diabetes mellitus without complications; D50.8 Other iron deficiency anemias | CPT/HCPCS: 36415; 84443 ==

== ENCOUNTER 2020-02-13 13:32 | Outpatient (RCR) | payer MEDICARE, MEDICAID ==
[2019-12-27 15:22] LABS: BASOPHILS % (AUTO) 1 % (0-10); EOSINOPHILS # (AUTO) 0.2 10^3/uL (0.0-0.3); EOSINOPHILS % (AUTO) 3 % (0-10); HEMATOCRIT 44 % (35-52); HEMOGLOBIN 15.7 G/DL (11.5-16.0); LYMPHOCYTES # (AUTO) 3.1 X 10^3 (1.0-4.0); LYMPHOCYTES % (AUTO) 48 % (12-44); MEAN CORPUSCULAR HEMOGLOBIN 37 PG (25-34); MEAN CORPUSCULAR HGB CONC 36 G/DL (32-36); MEAN CORPUSCULAR VOLUME 102 FL (80-99); MEAN PLATELET VOLUME 10.8 FL (7.4-10.4); MONOCYTES # (AUTO) 0.4 X 10^3 (0.0-1.0); MONOCYTES % (AUTO) 7 % (0-12); NEUTROPHILS # (AUTO) 2.8 X 10^3 (1.8-7.8); NEUTROPHILS % (AUTO) 42 % (42-75); PLATELET COUNT 124 10^3/uL (130-400); WHITE BLOOD COUNT 6.6 10^3/uL (4.3-11.0)
[2019-12-27 15:40] LABS: ALANINE AMINOTRANSFERASE 8 U/L (0-55); ALKALINE PHOSPHATASE 87 U/L (40-136); BILIRUBIN,TOTAL 0.5 MG/DL (0.1-1.0); BUN/CREATININE RATIO 13; CARBON DIOXIDE 32 MMOL/L (21-32); CHLORIDE 103 MMOL/L (98-107); CREATININE SERUM 0.76 MG/DL (0.60-1.30); GFR ESTIMATED > 60; GLUCOSE 105 MG/DL (70-105); POTASSIUM 4.6 MMOL/L (3.6-5.0); SODIUM 138 MMOL/L (135-145); TOTAL PROTEIN 6.9 GM/DL (6.4-8.2)
[~2020-02-13 13:32] MED LIST changes: +OXC5T; -OXYC5TAB96
== END 2020-02-18 | disposition home or self-care (01) ==
LOC: ONC 13:32
PROVIDERS: ATTEND Internal Medicine Hematology & Oncology
DX: Z45.2 Encounter for adjustment and management of vascular access device (principal); D68.62 Lupus anticoagulant syndrome; D50.0 Iron deficiency anemia secondary to blood loss (chronic); E03.9 Hypothyroidism, unspecified; J44.9 Chronic obstructive pulmonary disease, unspecified; G47.33 Obstructive sleep apnea (adult) (pediatric); N18.9 Chronic kidney disease, unspecified; M19.90 Unspecified osteoarthritis, unspecified site; E11.22 Type 2 diabetes mellitus with diabetic chronic kidney disease; D63.1 Anemia in chronic kidney disease; F41.9 Anxiety disorder, unspecified; F32.9 Major depressive disorder, single episode, unspecified; F17.200 Nicotine dependence, unspecified, uncomplicated; Z98.890 Other specified postprocedural states; Z90.710 Acquired absence of both cervix and uterus; Z90.49 Acquired absence of other specified parts of digestive tract; Z95.828 Presence of other vascular implants and grafts; Z86.718 Personal history of other venous thrombosis and embolism; Z86.711 Personal history of pulmonary embolism; Z86.2 Personal history of diseases of the blood and blood-forming organs and certain disorders involving the immune mechanism; Z79.01 Long term (current) use of anticoagulants
CPT/HCPCS: 36591; 80053; 82728; 85025; 96523

== ENCOUNTER 2020-02-20 01:14 | Emergency (ER) | payer MEDICARE, MEDICAID ==
[~2020-02-20] VITALS: Ht 170 cm; Wt 70.0 kg
[2020-02-20 01:20] VITALS: BP 148/101
--- NOTE | 2020-02-20 01:29 | ED Upper Extremity ---
General Stated Complaint: LEFT SHOULDER PAIN Source: patient History of Present Illness Date Seen by Provider: Feb 20, 2020 Time Seen by Provider: 01:20 Initial Comments PT ARRIVES VIA POV FROM [place]OUND 0045, SHE RAN INTO COFFEE TABLE WITH HER RIGHT LEG, AND FELL, LANDING ON HER LEFT SHOULDER, ONTO CARPETED FLOOR DID NOT HIT HEAD AND NO LOSS OF CONSCIOUSNESS NO NECK OR BACK PAIN NO CHEST OR ABDOMINAL PAIN NO PAIN TO LEG, AND IS ABLE TO BEAR WEIGHT WITHOUT DIFFICULTY ONLY C/O PAIN TO LEFT SHOULDER AND RADIATES DOWN ENTIRE LEFT ARM AND LEFT HAND AND FINGERS FEEL A LITTLE TINGLY NO PRIOR INJURY TO THIS SHOULDER PT IS RIGHT HANDED HAS NOT TAKEN ANYTHING FOR PAIN BUT PT IS NARCOTIC DEPENDENT FOR CHRONIC GENERALIZED PAIN PCP: [facility] Allergies and Home Medications Allergies Coded Allergies: droperidol (Unverified Allergy, Severe, SOB, 02/20/20) ranitidine HCl (Verified Allergy, Intermediate, SOB, DIAPHORETIC, 02/20/20) Soap (Unverified Allergy, Unknown, RASH, 02/20/20) aspirin (Verified Allergy, Unknown, 02/20/20) codeine (Verified Allergy, Unknown, 02/20/20) ketorolac tromethamine (Verified Allergy, Unknown, 02/20/20) metoclopramide HCl (Unverified Allergy, Unknown, 02/20/20) povidone-iodine (Unverified Allergy, Unknown, RASH, 02/20/20) prochlorperazine edisylate (Unverified Allergy, Unknown, 02/20/20) prochlorperazine maleate (Unverified Allergy, Unknown, 02/20/20) sumatriptan (Verified Allergy, Unknown, 02/20/20) sumatriptan succinate (Verified Allergy, Unknown, 02/20/20) Home Medications Albuterol Sulfate 18 Gm Hfa.aer.ad, 2 PUFF IH Q4H PRN for WHEEZING, (Reported) Buprenorphine HCl 600 Mcg Film, 600 MCG MM Q12H, (Reported) Cyclobenzaprine HCl 10 Mg Tablet, 10 MG PO Q12H, (Reported) Doxycycline Hyclate 100 Mg Tablet, 100 MG PO BID Prescribed by: EVERETT ERNST on 10/08/18 1402 Fluticasone/Umeclidin/Vilanter 1 Each Blst.w.dev, 1 PUFF IH BID, (Reported) Fondaparinux Sodium 7.5 Mg/0.6 Ml Syringe, 7.5 MG SQ DAILY Prescribed by: WARNER DASILVA on 06/04/19 0821 Levothyroxine Sodium 75 Mcg Tablet, 75 MCG PO DAILY, (Reported) Morphine Sulfate 15 Mg Tablet, 15 MG PO Q12H PRN for PAIN-MILD TO MODERATE, (Reported) Omeprazole 20 Mg Capsule.dr, 20 MG PO DAILY, (Reported) Ondansetron 8 Mg Tab.rapdis, 8 MG PO Q8H PRN for NAUSEA/VOMITING, (Reported) Patient Home Medication List Home Medication List Reviewed: Yes Review of Systems Constitutional: no symptoms reported EENTM: no symptoms reported Respiratory: no symptoms reported Cardiovascular: no symptoms reported Gastrointestinal: no symptoms reported Genitourinary: no symptoms reported Musculoskeletal: see HPI Skin: no symptoms reported Psychiatric/Neurological: See HPI Past Cuayeot-Uawimu-Ryfcmo Hx Past Med/Social Hx: Reviewed and Corrections made Patient Social History Smoking Status: Current Everyday Smoker Type Used: Cigarettes 2nd Hand Smoke Exposure: No Recent Foreign Travel: No Contact w/Someone Who Travel: No Recent Hopitalizations: No Immunizations Up To Date Tetanus Booster (TDap): Less than 5yrs Date of Pneumonia Vaccine: Jan 16, 2014 Date of Influenza Vaccine: Jan 31, 2019 Seasonal Allergies Seasonal Allergies: No Past Medical History Surgeries: Yes (port, several bowel obstruction sx, IVC filter, bile duct stent) Abdominal, Appendectomy, Bowel Surgery, Cardiac, Coronary Stent, Eye Surgery, Gallbladder, Hysterectomy, Oophorectomy, Orthopedic, Vascular Surgery Respiratory: Yes (O2 AND trilogy machine) Asthma, Chronic Bronchitis, Pulmonary Embolism, Sleep Apnea, COPD Cardiac: Yes (MULTIPLE DVT'S IN ARMS AND LEGS, 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, Menopausal Sexually Transmitted Disease: No HIV/AIDS: No Genitourinary: Yes Kidney Stones, Renal Failure Gastrointestinal: Yes Gastroesophageal Reflux, Obstructive Bowel, Pancreatitis, Gall Bladder Disease Musculoskeletal: Yes (CHRONIC GENERALIZED PAIN--NARCOTIC DEPENDENT) Arthritis, Chronic Back Pain Endocrine: Yes (diabetes prior to wt loss) Hypothyroidsim, Diabetes, Non-Insulin dep, Lupus HEENT: Yes Glaucoma Hearing Impairment: Denies Cancer: No Psychosocial: Yes Anxiety, Suicide Attempts, Depression Integumentary: No Blood Disorders: Yes (DVT'S/P.E.'S ; PAD) Adverse Reaction/Blood Tranf: No Family Medical History Asthma 19 FATHER G8 SISTER Diabetes mellitus G8 SISTER Hypercholesterolemia G8 SISTER Hypertension G8 SISTER Kidney disease 19 MOTHER Myocardial infarction 19 FATHER No Family History of: AIDS Abdominal aortic aneurysm Talmage's disease Alcoholism Alzheimer's disease Aphasia Arthritis Cancer of mouth Cardiovascular disease Cataracts Colon cancer Completed stroke Congenital disease Congenital heart disease Coronary thrombosis Cystic fibrosis Deafness or hearing loss Dementia Drug abuse Dysphasia Fibrocystic disease of breast Gastroenteritis Glaucoma Headache disorder Infertility Neoplasm Not obtainable due to adoption Osteoporosis Parkinson's disease Prostate cancer Psychosocial problem Respiratory disorder Seizure disorder Severe allergy Thyroid disease Tuberculosis Visual disorder Heart Disease, Cancer, GI Disease ADDITIONAL PAST SURGICAL AND MEDICAL HISTORY -REMOVAL OF BENIGN TUMOR RIGHT NECK -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 0.0oz. 70.475175fw; 26.00 BMI Method:Stated General Appearance: WD/WN, no apparent distress Neck: non-tender, normal inspection Cardiovascular: normal peripheral pulses, regular rate, rhythm, no murmur Respiratory: chest non-tender, normal breath sounds Gastrointestinal: non tender, soft Back: normal inspection, no CVA tenderness, no vertebral tenderness Shoulder: No asymmetry; bone tenderness; No deformity, No ecchymosis; limited ROM, pain, soft tissue tenderness; No swelling Elbow/Forearm: normal inspection, non-tender, no evidence of injury, limited ROM (DUE TO SHOULDER PAIN ) Wrist: Yes normal inspection, Yes non-tender, Yes no evidence of injury, Yes limited ROM (DUE TO SHOULDER PAIN ) Hand: normal inspection, non-tender, no evidence of injury, Left (DISTAL MOTOR/SENSORY/VASCULAR INTACT. 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 as tested, no motor/sensory deficits, alert, oriented x 3 Skin: normal color, warm/dry, other (NO EXTERNAL EVIDENCE OF TRAUMA) Procedures/Interventions Splinting and Joint Reduction : Immobilizers: Large Shoulder Progress/Results/Core Measures Results/Orders My Orders Orders - FLORIAN OSULLIVAN DO Shoulder, Left, 3 Views (02/20/20 01:24) Humerus, Left, 2 Views (02/20/20 01:24) Shoulder Immoblizer (02/20/20 01:58) Vital Signs/I&O 02/20/20 01:20 Temp 36.0 Pulse 101 Resp 20 B/P (MAP) 148/101 (117) Pulse Ox 94 Progress Progress Note : Progress Note PT BECAME BELLIGERENT AND YELLING WHEN I ADVISED THAT I WOULD NOT BE PRESCRIBING ADDITIONAL NARCOTICS SHE IS ALREADY ON MORPHINE IR 15 MG AND BUPRENO RPHINE/BELBUCA BUCCAL FILM EACH BID, AND HAS A VERY EXTENSIVE ALLERGY LIST. Diagnostic Imaging Comments XRAYS LEFT SHOULDER AND HUMERUS-NO FRACTURE OR DISLOCATION, PENDING RADIOLOGIST REVIEW Reviewed: Reviewed by Me Departure Impression Primary Impression: Contusion of left shoulder Disposition: HOME, SELF-CARE Condition: Stable Departure-Patient Inst. Referrals: HERMINIA SEGURA MD (PCP) Primary Care Physician JIM AMAYA (Family) Primary Care Physician TROY العلي MD Patient Instructions: How to Use a Shoulder Sling, Shoulder Pain (DC) Add. Discharge Instructions: WEAR SHOULDER IMMOBILIZER NEEDED FOR COMFORT ICE TO AREA AT 20 MINUTE INTERVALS TAKE YOUR HOME PAIN MEDICATION PRESCRIBED FOLLOW UP WITH DR. KAT OR ORTHOPEDIC SURGEON OF CHOICE IN THE NEXT WEEK FOR FURTHER CARE FLORIAN OSULLIVAN DO Feb 20, 2020 01:29
--- NOTE | 2020-02-20 02:10 | NUR ---
DISCHARGE INSTRUCTIONS FOR THIS PATIENT INCLUDE PATIENT TAKE AN EXTRA PAIN PILL FROM HER HOME SUPPLY FOR HER PAIN TONIGHT PER DR OSULLIVAN. THIS PATIENT IS VERY WORRIED HER COUNT WILL BE OFF IF SHE USES HER OWN SUPPLY BY TAKING AN EXTRA PILL. DR OSULLIVAN TO ROOM TO INSTRUCT PATIENT TO USE HER HOME PAIN MEDICATION FOR HER PAIN TONIGHT. THIS RN INSTRUCTED PATIENT TO CALL HER REGULAR PHYSICIAN IN THE AM AND REPORT HER INJURY AND TRIP TO THE ER AND HER NEED FOR AN ADDITIONAL PAIN PILL OVERNIGHT. INSTRUCTED TO TALK TO HER REGULAR DR IF SHE NEEDS ADDITIONAL PAIN RELIEF ONGOING.
--- NOTE | 2020-02-20 06:58 | Diagnostic Imaging Report ---
INDICATION: Left shoulder pain. FINDINGS: 3 views. Glenohumeral joint is in good alignment with smooth articulating surfaces. AC joint shows good alignment with mild hypertrophic changes. There are no fractures. No soft tissue calcification. IMPRESSION: Mild arthritic changes left shoulder with no acute abnormality. Dictated by: Dictated on workstation # [id number]
--- NOTE | 2020-02-20 07:07 | Diagnostic Imaging Report ---
INDICATION: Left shoulder pain. No history of trauma. FINDINGS: 2 views. Left humerus is intact without fractures. The shoulder and elbow show good alignment. No joint effusion. No soft tissue calcifications. IMPRESSION: Normal left humerus. Dictated by: Dictated on workstation # [id number]
== END 2020-02-20 02:15 | disposition home or self-care (01) ==
LOC: EDUNIT# 01:14 → ER 01:16
DX: S40.012A Contusion of left shoulder, initial encounter (principal); J44.9 Chronic obstructive pulmonary disease, unspecified; K21.9 Gastro-esophageal reflux disease without esophagitis; E03.9 Hypothyroidism, unspecified; F17.210 Nicotine dependence, cigarettes, uncomplicated; Z83.3 Family history of diabetes mellitus; Z82.49 Family history of ischemic heart disease and other diseases of the circulatory system; Z79.890 Hormone replacement therapy; Z86.718 Personal history of other venous thrombosis and embolism; Z88.5 Allergy status to narcotic agent; Z88.8 Allergy status to other drugs, medicaments and biological substances; Z86.711 Personal history of pulmonary embolism; Z95.5 Presence of coronary angioplasty implant and graft; W22.03XA Walked into furniture, initial encounter
CPT/HCPCS: 73030; 73060; L3650

== ENCOUNTER → 2020-02-25 | Outpatient (CLI) | payer MEDICARE, MEDICAID ==
[~2020-02-25] MED LIST changes: +RT-ALBUTEROL SULF 2.5 MG/3 ML PRE-MIX VIAL INH ONE
== END ==
LOC: RT 10:16
PROVIDERS: ATTEND Internal Medicine Critical Care Medicine
DX: J44.9 Chronic obstructive pulmonary disease, unspecified (principal)
CPT/HCPCS: 94060; 94621; 94726; 94729

== ENCOUNTER → 2020-02-27 | Outpatient (CLI) | payer MEDICARE, MEDICAID ==
[~2020-02-27] MED LIST changes: -RT-ALBUTEROL SULF 2.5 MG/3 ML PRE-MIX VIAL INH ONE
--- NOTE | 2020-02-27 11:57 | Diagnostic Imaging Report ---
EXAMINATION: Magnetic resonance imaging of the left shoulder without contrast. DATE: February 27, 2020. COMPARISON: Left shoulder radiographs February 20, 2020. HISTORY: 54-year-old female, left shoulder pain. TECHNIQUE: Magnetic Resonance Imaging sequences were performed of the shoulder without contrast. FINDINGS: ROTATOR CUFF, LIGAMENTS, TENDONS, AND MUSCLES: The supraspinatus, infraspinatus, teres minor, and subscapularis tendons and muscles are intact. There is normal rotator cuff muscle bulk and signal. LONG HEAD OF BICEPS: The biceps labral attachment and long head of the biceps tendon are intact. The long head of the biceps tendon is normally positioned within the bicipital groove. GLENOHUMERAL JOINT: The humeral head is well positioned relative to the glenoid. The labrum is grossly intact. There is no identified paralabral cyst. The articular cartilage is grossly intact. There is no joint effusion. ACROMIOCLAVICULAR JOINT: The acromioclavicular joint is normally aligned. The coracoclavicular and coracoacromial ligaments are intact. There are no degenerative changes of the acromioclavicular joint. BONE: There is an acute nondisplaced fracture of the greater tuberosity with adjacent marrow edema. There are small areas of subcortical cystic change underlying the infraspinatus tendon insertion within the superior humeral head. The additional bone marrow signal is unremarkable. BURSAE AND SOFT TISSUES: The bursae and soft tissue surrounding the shoulder are unremarkable. IMPRESSION: 1. Acute nondisplaced fracture of the greater tuberosity. 2. Intact rotator cuff and proximal long head of the biceps tendon. 3. Intact acromioclavicular joint. 4. Grossly intact labrum and unremarkable additional glenohumeral joint evaluation. Dictated by: Dictated on workstation # [id number]
== END ==
LOC: RAD 10:21
PROVIDERS: ATTEND Orthopaedic Surgery
DX: S46.012A Strain of muscle(s) and tendon(s) of the rotator cuff of left shoulder, initial encounter (principal); S42.254A Nondisplaced fracture of greater tuberosity of right humerus, initial encounter for closed fracture; X58.XXXA Exposure to other specified factors, initial encounter
CPT/HCPCS: 73221

== ENCOUNTER → 2020-04-09 | Outpatient (CLI) | payer MEDICARE, MEDICAID | LOC: LAB 11:21 | PROVIDERS: ATTEND Internal Medicine Critical Care Medicine | DX: J44.9 Chronic obstructive pulmonary disease, unspecified (principal) | CPT/HCPCS: 82103; 82784; 82785; 86003; 86606 ==

== ENCOUNTER 2020-04-16 13:07 | Outpatient (RCR) | payer MEDICARE, MEDICAID | END 2020-04-21 10:23 | disposition home or self-care (01) | LOC: ONC 13:07 | PROVIDERS: ATTEND Internal Medicine Hematology & Oncology | DX: Z45.2 Encounter for adjustment and management of vascular access device (principal); D68.62 Lupus anticoagulant syndrome; D50.0 Iron deficiency anemia secondary to blood loss (chronic); E03.9 Hypothyroidism, unspecified; J44.9 Chronic obstructive pulmonary disease, unspecified; G47.33 Obstructive sleep apnea (adult) (pediatric); N18.9 Chronic kidney disease, unspecified; M19.90 Unspecified osteoarthritis, unspecified site; E11.22 Type 2 diabetes mellitus with diabetic chronic kidney disease; D63.1 Anemia in chronic kidney disease; F41.9 Anxiety disorder, unspecified; F32.9 Major depressive disorder, single episode, unspecified; F17.200 Nicotine dependence, unspecified, uncomplicated; Z98.890 Other specified postprocedural states; Z90.710 Acquired absence of both cervix and uterus; Z90.49 Acquired absence of other specified parts of digestive tract; Z95.828 Presence of other vascular implants and grafts; Z86.718 Personal history of other venous thrombosis and embolism; Z86.711 Personal history of pulmonary embolism; Z86.2 Personal history of diseases of the blood and blood-forming organs and certain disorders involving the immune mechanism; Z79.01 Long term (current) use of anticoagulants | CPT/HCPCS: 36591; 96523 ==

== ENCOUNTER 2020-05-14 13:03 | Outpatient (RCR) | payer MEDICARE, MEDICAID ==
[2020-05-22] MEDS ORDERED: NS IV 1000 ML (CANCER CTR) 1,000 ML ONE (10:25)
== END 2020-05-22 10:51 | disposition home or self-care (01) ==
LOC: ONC 13:03
PROVIDERS: ATTEND Internal Medicine Hematology & Oncology
DX: Z45.2 Encounter for adjustment and management of vascular access device (principal); D68.62 Lupus anticoagulant syndrome; D50.0 Iron deficiency anemia secondary to blood loss (chronic); E03.9 Hypothyroidism, unspecified; J44.9 Chronic obstructive pulmonary disease, unspecified; G47.33 Obstructive sleep apnea (adult) (pediatric); N18.9 Chronic kidney disease, unspecified; M19.90 Unspecified osteoarthritis, unspecified site; E11.22 Type 2 diabetes mellitus with diabetic chronic kidney disease; D63.1 Anemia in chronic kidney disease; F41.9 Anxiety disorder, unspecified; F32.9 Major depressive disorder, single episode, unspecified; F17.200 Nicotine dependence, unspecified, uncomplicated; Z98.890 Other specified postprocedural states; Z90.710 Acquired absence of both cervix and uterus; Z90.49 Acquired absence of other specified parts of digestive tract; Z95.828 Presence of other vascular implants and grafts; Z86.718 Personal history of other venous thrombosis and embolism; Z86.711 Personal history of pulmonary embolism; Z86.2 Personal history of diseases of the blood and blood-forming organs and certain disorders involving the immune mechanism; Z79.01 Long term (current) use of anticoagulants
CPT/HCPCS: 96523

== ENCOUNTER → 2020-05-28 | Outpatient (CLI) | payer MEDICARE, MEDICAID ==
--- NOTE | 2020-05-29 18:02 | Diagnostic Imaging Report ---
EXAM: Digital mammogram, bilateral screening. COMPARISON: This study was compared to the prior exam of 10/11/2016. At this time, there are no current complaints. The current study was also evaluated with a Computer Aided Detection (CAD) system. FINDINGS: The fibroglandular tissue in both breasts is heterogeneously dense. This does limit the sensitivity of this exam. Overall, there does not appear to have been any significant change when compared to the prior study. No primary or secondary sign of malignancy is noted. IMPRESSION: 1. There is no radiographic evidence for malignancy. 2. The patient should have her annual bilateral screening mammogram on schedule in May of 2021. ACR category 1 ACR BI-RADS Category 1: Negative. Result letter will be mailed to the patient. Note: At least 10% of breast cancer is not imaged by mammography. Dictated on workstation # [id number]
== END ==
LOC: RAD 14:21
PROVIDERS: ATTEND Nurse Practitioner Family
DX: Z12.31 Encounter for screening mammogram for malignant neoplasm of breast (principal)
CPT/HCPCS: 77063; 77067

== ENCOUNTER → 2020-08-20 | Outpatient (RCR) | payer MEDICARE, MEDICAID | END | disposition home or self-care (01) | LOC: ONC 05-22 10:53 | PROVIDERS: ATTEND Internal Medicine Hematology & Oncology | DX: Z45.2 Encounter for adjustment and management of vascular access device (principal); D68.62 Lupus anticoagulant syndrome; D50.0 Iron deficiency anemia secondary to blood loss (chronic); E03.9 Hypothyroidism, unspecified; J44.9 Chronic obstructive pulmonary disease, unspecified; G47.33 Obstructive sleep apnea (adult) (pediatric); N18.9 Chronic kidney disease, unspecified; M19.90 Unspecified osteoarthritis, unspecified site; E11.22 Type 2 diabetes mellitus with diabetic chronic kidney disease; D63.1 Anemia in chronic kidney disease; F41.9 Anxiety disorder, unspecified; F32.9 Major depressive disorder, single episode, unspecified; F17.200 Nicotine dependence, unspecified, uncomplicated; Z98.890 Other specified postprocedural states; Z90.710 Acquired absence of both cervix and uterus; Z90.49 Acquired absence of other specified parts of digestive tract; Z95.828 Presence of other vascular implants and grafts; Z86.718 Personal history of other venous thrombosis and embolism; Z86.711 Personal history of pulmonary embolism; Z86.2 Personal history of diseases of the blood and blood-forming organs and certain disorders involving the immune mechanism; Z79.01 Long term (current) use of anticoagulants | CPT/HCPCS: 96523 ==

== ENCOUNTER → 2020-08-20 | Outpatient (CLI) | payer MEDICARE, MEDICAID ==
[~2020-08-20] MED LIST changes: +RT-ALBUTEROL SULF 2.5 MG/3 ML PRE-MIX VIAL INH ONE
--- NOTE | 2020-08-20 15:23 | Diagnostic Imaging Report ---
EXAMINATION: CT chest without contrast (lung screening). TECHNIQUE: Multiple contiguous axial images were obtained through the chest without the use of intravenous contrast according to lung cancer screening protocol. All CT scans use one or more of the following dose optimizing techniques: automated exposure control, MA and/or KvP adjustment based on patient size and exam type or iterative reconstruction. HISTORY: 33 pack year history of smoking. COMPARISON: None available. FINDINGS: There is no edema or pneumonia. No pleural effusion. No pneumothorax. No suspicious nodules. There is mucous in the trachea. There is minimal atelectasis in the bases. There is scarring in the right apex. There is no axillary or supraclavicular lymphadenopathy. There is no mediastinal lymphadenopathy. Heart size is normal. There are mild coronary artery calcifications. No pericardial effusion. Aorta is normal in caliber. There are extensive collateral vessels in the chest wall with marked narrowing of the superior vena cava and brachiocephalic veins. Limited views of the upper abdomen are unremarkable. There are no suspicious osseus lesions. IMPRESSION: 1. No suspicious pulmonary nodules. 2. 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 LUNG-RADS CATEGORY: 1 MODIFIER: S Dictated by: Dictated on workstation # [id number]
== END ==
LOC: RT 14:13
PROVIDERS: ATTEND Internal Medicine Critical Care Medicine
DX: J44.9 Chronic obstructive pulmonary disease, unspecified (principal); Z87.891 Personal history of nicotine dependence
CPT/HCPCS: 71271; 94060; 94726; 94729

== ENCOUNTER → 2020-08-27 | Outpatient (CLI) | payer MEDICARE, MEDICAID ==
[~2020-08-27] MED LIST changes: -RT-ALBUTEROL SULF 2.5 MG/3 ML PRE-MIX VIAL INH ONE
[2020-08-27 13:17] LABS: BASOPHILS # (AUTO) 0.1 10^3/uL (0.0-0.1); BASOPHILS % (AUTO) 1 % (0-10); EOSINOPHILS # (AUTO) 0.3 10^3/uL (0.0-0.3); EOSINOPHILS % (AUTO) 4 % (0-10); HEMATOCRIT 44 % (35-52); HEMOGLOBIN 15.2 g/dL (11.5-16.0); LYMPHOCYTES # (AUTO) 2.8 10^3/uL (1.0-4.0); LYMPHOCYTES % (AUTO) 40 % (12-44); MEAN CORPUSCULAR HEMOGLOBIN 35 pg (25-34); MEAN CORPUSCULAR HGB CONC 35 g/dL (32-36); MEAN CORPUSCULAR VOLUME 101 fL (80-99); MEAN PLATELET VOLUME 10.8 fL (9.0-12.2); MONOCYTES # (AUTO) 0.5 10^3/uL (0.0-1.0); MONOCYTES % (AUTO) 7 % (0-12); NEUTROPHILS # (AUTO) 3.3 10^3/uL (1.8-7.8); NEUTROPHILS % (AUTO) 47 % (42-75); PLATELET COUNT 159 10^3/uL (130-400); WHITE BLOOD COUNT 6.9 10^3/uL (4.3-11.0)
[2020-08-27 13:59] LABS: PROTHROMBIN TIME PATIENT 13.6 SEC (12.2-14.7)
== END ==
LOC: LAB 13:05
PROVIDERS: ATTEND Nurse Practitioner Family
DX: R21 Rash and other nonspecific skin eruption (principal); Z86.2 Personal history of diseases of the blood and blood-forming organs and certain disorders involving the immune mechanism
CPT/HCPCS: 36415; 85025; 85610; 85730

== ENCOUNTER 2020-10-09 09:17 | Emergency (ER) | payer MEDICARE, MEDICAID ==
[~2020-10-09] VITALS: Ht 170 cm; Wt 72.5 kg
--- NOTE | 2020-10-09 09:54 | ED Back Pain ---
General Chief Complaint: Back Problems Stated Complaint: BACK PAIN, DIFFICULTY WALKING, DIARRHEA, N/V Source of Information: Patient Exam Limitations: No Limitations (JU CONTE MED STUDENT) History of Present Illness Date Seen by Provider: Oct 09, 2020 Time Seen by Provider: 09:49 Initial Comments Mrs Hawkins is a 55 yo female that presents today with diarrhea, nausea, vomiting, and back and groin pain. She has a history of chronic kidney stones and SVC Syndrome. She has been feeling symptoms similar to a kidney stone and her chronic pain for about a week now but she says that this morning it became much worse. She is also experiencing nausea and vomiting as well. Pain is in the lateral lower lumbar area of her back and she also has pain that is radiating into her groin. She describes the pain as sharp, constant, and rates a 25 out of 10. Nothing triggered the increase in pain as far as she can tell. She took morphine today as part of her normal pain regiment around 0230 today and states that is has not touched the pain at all. She also states she has a blood clot in her leg that was diagnosed with U/S at about 3 weeks ago. She is taking AZO for her urinary symptoms (JU CONTE MED STUDENT) Allergies and Home Medications Allergies Coded Allergies: droperidol (Unverified Allergy, Severe, SOB, 02/20/20) ranitidine HCl (Verified Allergy, Intermediate, SOB, DIAPHORETIC, 02/20/20) Soap (Unverified Allergy, Unknown, RASH, 02/20/20) aspirin (Verified Allergy, Unknown, 02/20/20) codeine (Verified Allergy, Unknown, 02/20/20) ketorolac tromethamine (Verified Allergy, Unknown, 02/20/20) metoclopramide HCl (Unverified Allergy, Unknown, 02/20/20) povidone-iodine (Unverified Allergy, Unknown, RASH, 02/20/20) prochlorperazine edisylate (Unverified Allergy, Unknown, 02/20/20) prochlorperazine maleate (Unverified Allergy, Unknown, 02/20/20) sumatriptan (Verified Allergy, Unknown, 02/20/20) sumatriptan succinate (Verified Allergy, Unknown, 11/4/20) Home Medications Albuterol Sulfate 18 Gm Hfa.aer.ad, 2 PUFF IH Q4H PRN for WHEEZING, (Reported) Buprenorphine HCl 600 Mcg Film, 600 MCG MM Q12H, (Reported) Cyclobenzaprine HCl 10 Mg Tablet, 10 MG PO Q12H, (Reported) Doxycycline Hyclate 100 Mg Tablet, 100 MG PO BID Prescribed by: EVERETT ERNST on 10/08/18 1402 Fluticasone/Umeclidin/Vilanter 1 Each Blst.w.dev, 1 PUFF IH BID, (Reported) Fondaparinux Sodium 7.5 Mg/0.6 Ml Syringe, 7.5 MG SQ DAILY Prescribed by: WARNER DAISLVA on 06/04/19 0821 Levothyroxine Sodium 75 Mcg Tablet, 75 MCG PO DAILY, (Reported) Morphine Sulfate 15 Mg Tablet, 15 MG PO Q12H PRN for PAIN-MILD TO MODERATE, (Reported) Omeprazole 20 Mg Capsule.dr, 20 MG PO DAILY, (Reported) Ondansetron 8 Mg Tab.rapdis, 8 MG PO Q8H PRN for NAUSEA/VOMITING, (Reported) Patient Home Medication List Home Medication List Reviewed: Yes (JU CONTE [employer] STUDENT) Review of Systems Constitutional: No chills, No fever; malaise EENTM: vision loss (Chronic); No hearing loss Respiratory: No dyspnea on exertion, No short of breath Cardiovascular: chest pain (Related to SVC syndrome); No edema Gastrointestinal: abdominal pain (Lower quardants and groin area); No constipation; diarrhea, nausea, vomiting Genitourinary: dysuria; No frequency, No hematuria Musculoskeletal: back pain; No joint pain Skin: No pruritus, No rash Psychiatric/Neurological: Headache (JU CONTE [employer] STUDENT) Past Vnhwafu-Kzcgpx-Qnktgk Hx Patient Social History Type Used: Cigarettes 2nd Hand Smoke Exposure: No Recent Hopitalizations: No (JU CONTE [employer] STUDENT) Immunizations Up To Date Tetanus Booster (TDap): Less than 5yrs Date of Pneumonia Vaccine: Jan 16, 2014 Date of Influenza Vaccine: Jan 31, 2019 (JU CONTE [employer] STUDENT) Seasonal Allergies Seasonal Allergies: No (DGNAVA JANGRECESS. STUDENT) Past Medical History Surgeries: Yes (port, several bowel obstruction sx, IVC filter, bile duct stent) Abdominal, Appendectomy, Bowel Surgery, Cardiac, Coronary Stent, Eye Surgery, Gallbladder, Hysterectomy, Oophorectomy, Orthopedic, Vascular Surgery Respiratory: Yes (O2 AND trilogy machine) Asthma, Chronic Bronchitis, Pulmonary Embolism, Sleep Apnea, COPD Cardiac: Yes (MULTIPLE DVT'S IN ARMS AND LEGS, 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 History: Hysterectomy, Menopausal Sexually Transmitted Disease: No HIV/AIDS: No Genitourinary: Yes Kidney Stones, Renal Failure Gastrointestinal: Yes Gastroesophageal Reflux, Obstructive Bowel, Pancreatitis, Gall Bladder Disease Musculoskeletal: Yes (CHRONIC GENERALIZED PAIN--NARCOTIC DEPENDENT) Arthritis, Chronic Back Pain Endocrine: Yes (diabetes prior to wt loss) Hypothyroidsim, Diabetes, Non-Insulin dep, Lupus HEENT: Yes Glaucoma Loss of Vision: Left Hearing Impairment: Denies Cancer: No Psychosocial: Yes Anxiety, Suicide Attempts, Depression Integumentary: No Blood Disorders: Yes (DVT'S/P.E.'S ; PAD) Adverse Reaction/Blood Tranf: No (JU CONTE STUDENT) Family Medical History Asthma 19 FATHER G8 SISTER Diabetes mellitus G8 SISTER Hypercholesterolemia G8 SISTER Hypertension G8 SISTER Kidney disease 19 MOTHER Myocardial infarction 19 FATHER No Family History of: AIDS Abdominal aortic aneurysm Bland's disease Alcoholism Alzheimer's disease Aphasia Arthritis Cancer of mouth Cardiovascular disease Cataracts Colon cancer Completed stroke Congenital disease Congenital heart disease Coronary thrombosis Cystic fibrosis Deafness or hearing loss Dementia Drug abuse Dysphasia Fibrocystic disease of breast Gastroenteritis Glaucoma Headache disorder Infertility Neoplasm Not obtainable due to adoption Osteoporosis Parkinson's disease Prostate cancer Psychosocial problem Respiratory disorder Seizure disorder Severe allergy Thyroid disease Tuberculosis Visual disorder Heart Disease, Cancer, GI Disease ADDITIONAL PAST SURGICAL AND MEDICAL HISTORY -REMOVAL OF BENIGN TUMOR RIGHT NECK -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 0.0oz. 70.342526ti; 24.00 BMI Method:Stated General Appearance: Anxious, Chronically ill, Moderate Distress Cardiovascular: Regular Rate, Rhythm, No Edema, No Murmur, Normal Peripheral Pulses Respiratory: Chest Non Tender, Lungs Clear, Normal Breath Sounds, No Accessory Muscle Use, No Respiratory Distress Peripheral Pulses: 2+ Radial Pulses (R), 2+ Radial Pulses (L) Gastrointestinal: Normal Bowel Sounds, No Organomegaly, No Pulsatile Mass, Non Tender, Soft Back: No CVA Tenderness, No Vertebral Tenderness, Other (Tenderness over Lateral posterior lumbar area) Extremity: Non Tender, No Calf Tenderness, No Pedal Edema Neurologic/Psychiatric: Alert, Oriented x3 Skin: Normal Color, Warm/Dry (JU CONTE MED STUDENT) Progress/Results/Core Measures Results/Orders Lab Results Laboratory Tests Test 10/09/20 10:09 10/09/20 10:56 Range/Units White Blood Count 5.5 4.3-11.0 10^3/uL Red Blood Count 4.15 3.80-5.11 10^6/uL Hemoglobin 14.7 11.5-16.0 g/dL Hematocrit 42 35-52 % Mean Corpuscular Volume 102 H 80-99 fL Mean Corpuscular Hemoglobin 35 H 25-34 pg Mean Corpuscular Hemoglobin Concent 35 32-36 g/dL Red Cell Distribution Width 12.6 10.0-14.5 % Platelet Count 133 130-400 10^3/uL Mean Platelet Volume 11.1 9.0-12.2 fL Immature Granulocyte % (Auto) 1 % Neutrophils (%) (Auto) 51 42-75 % Lymphocytes (%) (Auto) 36 12-44 % Monocytes (%) (Auto) 7 0-12 % Eosinophils (%) (Auto) 4 0-10 % Basophils (%) (Auto) 1 0-10 % Neutrophils # (Auto) 2.8 1.8-7.8 10^3/uL Lymphocytes # (Auto) 2.0 1.0-4.0 10^3/uL Monocytes # (Auto) 0.4 0.0-1.0 10^3/uL Eosinophils # (Auto) 0.2 0.0-0.3 10^3/uL Basophils # (Auto) 0.1 0.0-0.1 10^3/uL Immature Granulocyte # (Auto) 0.0 0.0-0.1 10^3/uL Sodium Level 138 135-145 MMOL/L Potassium Level 4.2 3.6-5.0 MMOL/L Chloride Level 100 98-107 MMOL/L Carbon Dioxide Level 26 21-32 MMOL/L Anion Gap 12 5-14 MMOL/L Blood Urea Nitrogen 8 7-18 MG/DL Creatinine 0.79 0.60-1.30 MG/DL Estimat Glomerular Filtration Rate > 60 BUN/Creatinine Ratio 10 Glucose Level 215 H 70-105 MG/DL Calcium Level 9.5 8.5-10.1 MG/DL Corrected Calcium 9.3 8.5-10.1 MG/DL Total Bilirubin 0.5 0.1-1.0 MG/DL Aspartate Amino Transf (AST/SGOT) 23 5-34 U/L Alanine Aminotransferase (ALT/SGPT) 12 0-55 U/L Alkaline Phosphatase 91 40-136 U/L C-Reactive Protein High Sensitivity 1.16 H 0.00-0.50 MG/DL Total Protein 7.7 6.4-8.2 GM/DL Albumin 4.2 3.2-4.5 GM/DL Lipase 34 8-78 U/L Urine Color YELLOW Urine Clarity CLEAR Urine pH 6.5 5-9 Urine Specific [place] 1.020 1.016-1.022 Urine Protein 1+ H NEGATIVE Urine Glucose (UA) NEGATIVE NEGATIVE Urine Ketones NEGATIVE NEGATIVE Urine Nitrite POSITIVE H NEGATIVE Urine Bilirubin NEGATIVE NEGATIVE Urine Urobilinogen 4.0 < = 1.0 MG/DL Urine Leukocyte Esterase TRACE H NEGATIVE Urine RBC (Auto) 2+ H NEGATIVE Urine RBC 25-50 H /HPF Urine WBC 2-5 /HPF Urine Squamous Epithelial Cells 5-10 /HPF Urine Crystals PRESENT H /LPF Urine Calcium Oxalate Crystals RARE H /LPF Urine Amorphous Sediment RARE SARAH URATES H /LPF Urine Bacteria TRACE /HPF Urine Casts NONE /LPF Urine Mucus NEGATIVE /LPF Urine Culture Indicated NO (RODNEY SHAW MD) My Orders Orders - RODNEY SHAW MD Cbc With Automated Diff (10/09/20 10:47) Comprehensive Metabolic Panel (10/09/20 10:47) Hs C Reactive Protein (10/09/20 10:47) Lipase (10/09/20 10:47) Ua Culture If Indicated (10/09/20 10:47) Morphine Injection (Morphine Injection (10/09/20 10:47) Ondansetron Injection (Zofran Injectio (10/09/20 11:00) Ct Abd/Pelvis Wo(Kidney Stone) (10/09/20 11:39) Morphine Injection (Morphine Injection (10/09/20 13:02) Fentanyl Patch (Duragesic Patch) (10/09/20 13:15) Urine Culture (10/09/20 13:20) Heparin (Central Iv Flush) (Heparin ([place] (10/09/20 13:30) (RODNEY SHAW MD) Medications Given in ED (RODNEY SHAW MD) Vital Signs/I&O 10/09/20 10/09/20 09:48 13:39 Temp 36.8 Pulse 101 74 Resp 18 16 B/P (MAP) 155/108 (124) 163/100 Pulse Ox 96 96 (RODNEY SHAW MD) Progress Progress Note : Progress Note Pain was treated with IV morphine and this dose was later repeated. Nausea was treated with Zofran. Because of history of ureteral stones and hematuria noted on urinalysis, CT of the abdomen and pelvis was offered. Patient elected to proceed with CT which was unremarkable, in particular, it was negative for ureteral stone or bowel obstruction. We discussed the potential for further imaging such as repeating CT scan with contrast to evaluate her vascular status. We had a long discussion about this. Patient states that had been made very clear to her by her vascular specialist that there is no amount of procedural intervention that could improve her current vascular status and SVC syndrome. She therefore wishes to forego any further studies as it is unlikely to impact her course of care. She is to receive fentanyl patches in the near future, possibly this afternoon, as an alternative form of chronic pain management. We have placed a fentanyl patch on her in the ER to bridge her over until she can receive the outpatient prescription. She does not know the dose of the patch she is to receive. A 25 mcg patch was placed here. (RODNEY SHAW MD) Diagnostic Imaging Diagonstic Imaging: CT Plain Films/CT/US/NM/MRI: abdomen, pelvis Comments NAME: MEGAN HAWKINS [facility] REC#: [id number] PT STATUS: REG ER : 1965 PHYSICIAN: RODNEY SHAW MD ADMIT DATE: 10/09/20/ER Signed Date of Exam:10/09/20 CT ABD/PELVIS WO(KIDNEY STONE) PROCEDURE: CT urinary tract, rule out kidney stone. TECHNIQUE: Multiple contiguous axial images were obtained through the abdomen and pelvis without the use of intravenous contrast. Auto Exposure Controls were utilized during the CT exam to meet ALARA standards for radiation dose reduction. INDICATION: Low back pain and bilateral flank pain. Worsening. COMPARISON: 11/07/2016. FINDINGS: The heart is unremarkable. The lung bases are clear. The liver, spleen, pancreas, adrenal glands, and kidneys have a normal appearance. The gallbladder is surgically absent. There is no pathologically enlarged mesenteric or retroperitoneal adenopathy. The bowel loops are nondilated. Prior surgical changes are visualized in the left hemiabdomen. There is no free fluid or free air. No acute osseous abnormalities. Stable appearance of the IVC filter and catheter extending from the left common femoral vein to the inferior cavoatrial juncture. Stent within the left common and external iliac veins is also stable. There is calcified aortic and iliac atherosclerotic plaque without aneurysm. Ureters and bladder are normal. There is no free air, loculated collection, or adenopathy in the pelvis. IMPRESSION: 1. No evidence of renal calculi or hydronephrosis. 2. No bowel obstruction. No free fluid or free air. Dictated by: Dictated on workstation # [id number] Dict: 10/09/20 1237 Trans: 10/09/20 1247 [facility] [id number] Interpreted by: MARIA DOLORES CLEMENT DO Electronically signed by: MARIA DOLORES CLEMENT DO 10/09/20 1247 (RODNEY SHAW MD) Departure Impression Primary Impression: Lower back pain Qualified Codes: M54.5 - Low back pain; G89.29 - Other chronic pain Additional Impressions: Lower abdominal pain Hematuria Qualified Codes: R31.29 - Other microscopic hematuria Nausea vomiting and diarrhea Superior vena cava syndrome Disposition: 01 HOME, SELF-CARE Condition: Improved Departure-Patient Inst. Referrals: [facility] (PCP/Family) Primary Care Physician Patient Instructions: Abdominal Pain, Adult ED, Low Back Pain in Adults Add. Discharge Instructions: Drink plenty of clear liquids to stay well-hydrated. Continue your medications as previously directed. Use the fentanyl patch placed in the ER as your primary pain control. Use morphine as previously prescribed for breakthrough pain. Remove the fentanyl patch when you start your new long- acting pain medication. A urine culture is pending. Call your primary care provider or the ER on Tuesday morning to review results to determine if antibiotics are necessary. Call with questions or concerns. Return to the emergency room if you have worsening symptoms. All discharge instructions reviewed with patient and/or family. Voiced understanding. Medical Student Attestation and Attending Note: I have personally interviewed and examined this patient along with SASHA Tinoco. I have reviewed student documentation including history, physical, and assessments. I agree with the documentation except where otherwise noted. Exam: General: Alert, oriented, no acute distress, well developed HEENT: Normocephalic and atraumatic Heart: Regular rate and rhythm without murmur Lungs: Clear to auscultation bilaterally with normal effort Abdomen: Soft, generalized lower abd TTP, nondistended, normal bowel sounds Neuropsych: Alert, oriented, no focal deficits Skin: Warm and dry without rashes, varicosities noted on the chest (RODNEY SHAW MD) Copy Copies To 1: FADUMO HICKEY DEREK MED STUDENT Oct 09, 2020 09:54 RODNEY SHAW MD Oct 09, 2020 13:20
[2020-10-09] MEDS ORDERED: morphine INJ 10 MG/ML 1ML (SYR OR VIAL) IVP STA ×2 (10:47→13:02)
[2020-10-09 10:57] LABS: BASOPHILS # (AUTO) 0.1 10^3/uL (0.0-0.1); BASOPHILS % (AUTO) 1 % (0-10); EOSINOPHILS # (AUTO) 0.2 10^3/uL (0.0-0.3); EOSINOPHILS % (AUTO) 4 % (0-10); HEMATOCRIT 42 % (35-52); HEMOGLOBIN 14.7 g/dL (11.5-16.0); LYMPHOCYTES % (AUTO) 36 % (12-44); MEAN CORPUSCULAR HEMOGLOBIN 35 pg (25-34); MEAN CORPUSCULAR HGB CONC 35 g/dL (32-36); MEAN CORPUSCULAR VOLUME 102 fL (80-99); MEAN PLATELET VOLUME 11.1 fL (9.0-12.2); MONOCYTES # (AUTO) 0.4 10^3/uL (0.0-1.0); MONOCYTES % (AUTO) 7 % (0-12); NEUTROPHILS # (AUTO) 2.8 10^3/uL (1.8-7.8); NEUTROPHILS % (AUTO) 51 % (42-75); PLATELET COUNT 133 10^3/uL (130-400); WHITE BLOOD COUNT 5.5 10^3/uL (4.3-11.0)
[2020-10-09 10:59] LABS: ALBUMIN 4.2 GM/DL (3.2-4.5); CHLORIDE 100 MMOL/L (98-107); POTASSIUM 4.2 MMOL/L (3.6-5.0); SODIUM 138 MMOL/L (135-145)
[2020-10-09] MEDS ORDERED: ONDANSETRON 4 MG/2 ML (SDV) Z0FRAN IVP ONE (11:00)
[2020-10-09 11:01] LABS: CALCIUM 9.5 MG/DL (8.5-10.1)
[2020-10-09 11:02] LABS: GLUCOSE 215 MG/DL (70-105); TOTAL PROTEIN 7.7 GM/DL (6.4-8.2)
[2020-10-09 11:03] LABS: BILIRUBIN,TOTAL 0.5 MG/DL (0.1-1.0); CARBON DIOXIDE 26 MMOL/L (21-32)
[2020-10-09 11:03] LABS: BILIRUBIN,URINE NEGATIVE (NEGATIVE); CLARITY,URINE CLEAR; COLOR,URINE YELLOW; GLUCOSE, URINE (UA) NEGATIVE (NEGATIVE); KETONES,URINE NEGATIVE (NEGATIVE); LEUKOCYTE ESTERASE ,URINE TRACE (NEGATIVE); NITRITE,URINE POSITIVE (NEGATIVE); PH,URINE 6.5 (5-9); PROTEIN,URINE 1+ (NEGATIVE)
[2020-10-09 11:05] LABS: ALKALINE PHOSPHATASE 91 U/L (40-136); CREATININE SERUM 0.79 MG/DL (0.60-1.30); GFR ESTIMATED > 60
[2020-10-09 11:06] LABS: BUN/CREATININE RATIO 10
[2020-10-09 11:08] LABS: ALANINE AMINOTRANSFERASE 12 U/L (0-55)
[2020-10-09 11:09] LABS: LIPASE 34 U/L (8-78)
[2020-10-09 11:19] LABS: AMORPHOUS SEDIMENT,UR RARE AMOR URATES /LPF; BACTERIA,URINE TRACE /HPF; CALCIUM OXALATE CRYSTALS,UR RARE /LPF; RBC,URINE 25-50 /HPF
--- NOTE | 2020-10-09 12:44 | Diagnostic Imaging Report ---
PROCEDURE: CT urinary tract, rule out kidney stone. TECHNIQUE: Multiple contiguous axial images were obtained through the abdomen and pelvis without the use of intravenous contrast. Auto Exposure Controls were utilized during the CT exam to meet ALARA standards for radiation dose reduction. INDICATION: Low back pain and bilateral flank pain. Worsening. COMPARISON: 11/07/2016. FINDINGS: The heart is unremarkable. The lung bases are clear. The liver, spleen, pancreas, adrenal glands, and kidneys have a normal appearance. The gallbladder is surgically absent. There is no pathologically enlarged mesenteric or retroperitoneal adenopathy. The bowel loops are nondilated. Prior surgical changes are visualized in the left hemiabdomen. There is no free fluid or free air. No acute osseous abnormalities. Stable appearance of the IVC filter and catheter extending from the left common femoral vein to the inferior cavoatrial juncture. Stent within the left common and external iliac veins is also stable. There is calcified aortic and iliac atherosclerotic plaque without aneurysm. Ureters and bladder are normal. There is no free air, loculated collection, or adenopathy in the pelvis. IMPRESSION: 1. No evidence of renal calculi or hydronephrosis. 2. No bowel obstruction. No free fluid or free air. Dictated by: Dictated on workstation # [id number]
[2020-10-09] MEDS ORDERED: fentaNYL PATCH 25 MCG (DURAGESIC) TD SCH (13:15)
[2020-10-09] MEDS ORDERED: HEParin (CENTRAL IV FLUSH) 500 UNIT/5 ML SYR ONE (13:30)
[2020-10-09 13:39] VITALS: BP 163/100
== END 2020-10-09 13:36 | disposition home or self-care (01) ==
LOC: EDUNIT# 09:17 → ER 09:19
DX: M54.5 Low back pain (principal); R10.30 Lower abdominal pain, unspecified; R31.9 Hematuria, unspecified; R11.2 Nausea with vomiting, unspecified; R19.7 Diarrhea, unspecified; I87.1 Compression of vein; I10 Essential (primary) hypertension; J44.9 Chronic obstructive pulmonary disease, unspecified; E03.9 Hypothyroidism, unspecified; K21.9 Gastro-esophageal reflux disease without esophagitis; Z79.890 Hormone replacement therapy; Z88.6 Allergy status to analgesic agent; Z86.711 Personal history of pulmonary embolism; Z86.718 Personal history of other venous thrombosis and embolism; Z79.899 Other long term (current) drug therapy; Z79.01 Long term (current) use of anticoagulants
CPT/HCPCS: 36415; 74176; 80053; 81000; 83690; 85025; 86141; 87088

== ENCOUNTER 2020-10-16 16:24 | Emergency (ER) | payer MEDICARE, MEDICAID ==
[~2020-10-16] VITALS: Ht 170 cm; Wt 72.5 kg
[2020-10-16] MEDS ORDERED: NS IV 1000 ML 1,000 ML IV SCH (16:30)
[2020-10-16] MEDS ORDERED: KETAMINE SYRINGE 50 MG/5 ML SYRINGE IV ONE (16:30)
--- NOTE | 2020-10-16 16:32 | ED Back Pain ---
General Chief Complaint: Back Problems Stated Complaint: BACK PAIN Nursing Triage Note: PT TO [facility] BY [facility] WITH CC OF BACK PAIN DOWN THE RT LEG WITH NO KNOWN CAUSE. Source of Information: Patient Exam Limitations: No Limitations History of Present Illness Date Seen by Provider: Oct 16, 2020 Time Seen by Provider: 16:31 Initial Comments To ER by EMS from home with reports of pain in the right low back that radiates all the way down the right leg no known injury. No fevers or chills no loss of bowel or bladder control. She is already on a fentanyl patch and morphine at home. She is on lovenox for tx of a DVT. Location: Lumbar Spine Timing/Duration: 1-2 Days Severity: Moderate Pain/Injury Location: Back Method of Injury: Unknown Associated Symptoms: denies symptoms Allergies and Home Medications Allergies Coded Allergies: droperidol (Unverified Allergy, Severe, SOB, 02/20/20) ranitidine HCl (Verified Allergy, Intermediate, SOB, DIAPHORETIC, 02/20/20) Soap (Unverified Allergy, Unknown, RASH, 02/20/20) aspirin (Verified Allergy, Unknown, 02/20/20) codeine (Verified Allergy, Unknown, 02/20/20) ketorolac tromethamine (Verified Allergy, Unknown, 02/20/20) metoclopramide HCl (Unverified Allergy, Unknown, 02/20/20) povidone-iodine (Unverified Allergy, Unknown, RASH, 02/20/20) prochlorperazine edisylate (Unverified Allergy, Unknown, 02/20/20) prochlorperazine maleate (Unverified Allergy, Unknown, 02/20/20) sumatriptan (Verified Allergy, Unknown, 02/20/20) sumatriptan succinate (Verified Allergy, Unknown, 02/20/20) Home Medications Albuterol Sulfate 18 Gm Hfa.aer.ad, 2 PUFF IH Q4H PRN for WHEEZING, (Reported) Buprenorphine HCl 600 Mcg Film, 600 MCG MM Q12H, (Reported) Cyclobenzaprine HCl 10 Mg Tablet, 10 MG PO Q12H, (Reported) Doxycycline Hyclate 100 Mg Tablet, 100 MG PO BID Prescribed by: EVERETT ERNST on 10/08/18 1402 Fluticasone/Umeclidin/Vilanter 1 Each Blst.w.dev, 1 PUFF IH BID, (Reported) Fondaparinux Sodium 7.5 Mg/0.6 Ml Syringe, 7.5 MG SQ DAILY Prescribed by: WARNER DASILVA on 06/04/19 0821 Levothyroxine Sodium 75 Mcg Tablet, 75 MCG PO DAILY, (Reported) Morphine Sulfate 15 Mg Tablet, 15 MG PO Q12H PRN for PAIN-MILD TO MODERATE, (Reported) Omeprazole 20 Mg Capsule.dr, 20 MG PO DAILY, (Reported) Ondansetron 8 Mg Tab.rapdis, 8 MG PO Q8H PRN for NAUSEA/VOMITING, (Reported) Patient Home Medication List Home Medication List Reviewed: Yes Review of Systems Constitutional: see HPI EENTM: see HPI Respiratory: no symptoms reported Cardiovascular: no symptoms reported Genitourinary: no symptoms reported Musculoskeletal: see HPI, back pain Skin: no symptoms reported Psychiatric/Neurological: No Symptoms Reported Past Wqfttqb-Hqmtsp-Erxumd Hx Immunizations Up To Date Tetanus Booster (TDap): Less than 5yrs Seasonal Allergies Seasonal Allergies: No Past Medical History Surgeries: Yes (port, several bowel obstruction sx, IVC filter, bile duct stent) Abdominal, Appendectomy, Bowel Surgery, Cardiac, Coronary Stent, Eye Surgery, Gallbladder, Hysterectomy, Oophorectomy, Orthopedic, Vascular Surgery Respiratory: Yes (O2 AND trilogy machine) Asthma, Chronic Bronchitis, Pulmonary Embolism, Sleep Apnea, COPD Cardiac: Yes (MULTIPLE DVT'S, vena cava syndrome, 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, Menopausal Sexually Transmitted Disease: No HIV/AIDS: No Genitourinary: Yes Kidney Stones, Renal Failure Gastrointestinal: Yes Gastroesophageal Reflux, Obstructive Bowel, Pancreatitis, Gall Bladder Disease Musculoskeletal: Yes (CHRONIC GENERALIZED PAIN--NARCOTIC DEPENDENT) Arthritis, Chronic Back Pain Endocrine: Yes (diabetes prior to wt loss) Hypothyroidsim, Diabetes, Non-Insulin dep, Lupus HEENT: Yes Glaucoma Loss of Vision: Left Hearing Impairment: Denies Cancer: No Psychosocial: Yes Anxiety, Suicide Attempts, Depression Integumentary: No Blood Disorders: Yes (DVT'S/P.E.'S ; PAD) Adverse Reaction/Blood Tranf: No Family Medical History Asthma 19 FATHER G8 SISTER Diabetes mellitus G8 SISTER Hypercholesterolemia G8 SISTER Hypertension G8 SISTER Kidney disease 19 MOTHER Myocardial infarction 19 FATHER No Family History of: AIDS Abdominal aortic aneurysm [place]'s disease Alcoholism Alzheimer's disease Aphasia Arthritis Cancer of mouth Cardiovascular disease Cataracts Colon cancer Completed stroke Congenital disease Congenital heart disease Coronary thrombosis Cystic fibrosis Deafness or hearing loss Dementia Drug abuse Dysphasia Fibrocystic disease of breast Gastroenteritis Glaucoma Headache disorder Infertility Neoplasm Not obtainable due to adoption Osteoporosis Parkinson's disease Prostate cancer Psychosocial problem Respiratory disorder Seizure disorder Severe allergy Thyroid disease Tuberculosis Visual disorder Heart Disease, Cancer, GI Disease ADDITIONAL PAST SURGICAL AND MEDICAL HISTORY -REMOVAL OF BENIGN TUMOR RIGHT NECK -LONG-TERM TPN IN THE PAST LONG HISTORY OF NONCOMPLIANCE Physical Exam Vital Signs Vital Signs - First Documented 10/16/20 16:27 Temp 37.0 Resp 22 B/P (MAP) 185/126 (145) Pulse Ox 94 O2 Delivery Room Air Capillary Refill : Less Than 3 Seconds Height, Weight, BMI Height: 5'7.00" Weight: 155lbs. 0.0oz. [id number]; 25.00 BMI Method:Stated General Appearance: No Apparent Distress, WD/WN, Chronically ill Neck: Full Range of Motion, Normal Inspection Cardiovascular: Regular Rate, Rhythm, Normal Peripheral Pulses Respiratory: No Accessory Muscle Use, No Respiratory Distress Gastrointestinal: Non Tender, Soft Extremity: Normal Capillary Refill, Normal Inspection Neurologic/Psychiatric: Alert, Oriented x3 Skin: Normal Color, Warm/Dry Progress/Results/Core Measures Results/Orders Lab Results Laboratory Tests Test 10/16/20 16:35 10/16/20 18:36 Range/Units White Blood Count 5.3 4.3-11.0 10^3/uL Red Blood Count 4.08 3.80-5.11 10^6/uL Hemoglobin 14.2 11.5-16.0 g/dL Hematocrit 42 35-52 % Mean Corpuscular Volume 103 H 80-99 fL Mean Corpuscular Hemoglobin 35 H 25-34 pg Mean Corpuscular Hemoglobin Concent 34 32-36 g/dL Red Cell Distribution Width 12.2 10.0-14.5 % Platelet Count 135 130-400 10^3/uL Mean Platelet Volume 11.0 9.0-12.2 fL Immature Granulocyte % (Auto) 0 % Neutrophils (%) (Auto) 41 L 42-75 % Lymphocytes (%) (Auto) 46 H 12-44 % Monocytes (%) (Auto) 8 0-12 % Eosinophils (%) (Auto) 3 0-10 % Basophils (%) (Auto) 1 0-10 % Neutrophils # (Auto) 2.2 1.8-7.8 10^3/uL Lymphocytes # (Auto) 2.5 1.0-4.0 10^3/uL Monocytes # (Auto) 0.4 0.0-1.0 10^3/uL Eosinophils # (Auto) 0.2 0.0-0.3 10^3/uL Basophils # (Auto) 0.0 0.0-0.1 10^3/uL Immature Granulocyte # (Auto) 0.0 0.0-0.1 10^3/uL Sodium Level 141 135-145 MMOL/L Potassium Level 3.7 3.6-5.0 MMOL/L Chloride Level 106 98-107 MMOL/L Carbon Dioxide Level 27 21-32 MMOL/L Anion Gap 8 5-14 MMOL/L Blood Urea Nitrogen 8 7-18 MG/DL Creatinine 0.74 0.60-1.30 MG/DL Estimat Glomerular Filtration Rate > 60 BUN/Creatinine Ratio 11 Glucose Level 172 H 70-105 MG/DL Calcium Level 8.6 8.5-10.1 MG/DL Urine Color SHIKHA H Urine Clarity CLEAR Urine pH 6.0 5-9 Urine Specific [place] 1.015 L 1.016-1.022 Urine Protein TRACE H NEGATIVE Urine Glucose (UA) TRACE H NEGATIVE Urine Ketones NEGATIVE NEGATIVE Urine Nitrite POSITIVE H NEGATIVE Urine Bilirubin NEGATIVE NEGATIVE Urine Urobilinogen 4.0 < = 1.0 MG/DL Urine Leukocyte Esterase TRACE H NEGATIVE Urine RBC (Auto) 2+ H NEGATIVE Urine RBC 2-5 H /HPF Urine WBC 2-5 /HPF Urine Crystals NONE /LPF Urine Bacteria TRACE /HPF Urine Casts NONE /LPF Urine Mucus NEGATIVE /LPF Urine Culture Indicated NO Urine Opiates Screen POSITIVE H NEGATIVE Urine Oxycodone Screen NEGATIVE NEGATIVE Urine Methadone Screen NEGATIVE NEGATIVE Urine Propoxyphene Screen NEGATIVE NEGATIVE Urine Barbiturates Screen NEGATIVE NEGATIVE Ur Tricyclic Antidepressants Screen NEGATIVE NEGATIVE Urine Phencyclidine Screen NEGATIVE NEGATIVE Urine Amphetamines Screen NEGATIVE NEGATIVE Urine Methamphetamines Screen NEGATIVE NEGATIVE Urine Benzodiazepines Screen NEGATIVE NEGATIVE Urine Cocaine Screen NEGATIVE NEGATIVE Urine Cannabinoids Screen POSITIVE H NEGATIVE My Orders Orders - PATRICE PAREDES APRN Cbc With Automated Diff (10/16/20 16:29) Basic Metabolic Panel (10/16/20 16:29) Ua Culture If Indicated (10/16/20 16:29) Drug Screen Stat (Urine) (10/16/20 16:29) Ns Iv 1000 Ml (Sodium Chloride 0.9%) (10/16/20 16:30) Ketamine Syringe (Ketamine Syringe) (10/16/20 16:30) Ct Lumbar Spine Wo (10/16/20 16:48) Ondansetron Injection (Zofran Injectio (10/16/20 17:30) Medications Given in ED Current Medications Medications Dose Ordered Sig/Aye Route Start Time Stop Time Status Last Admin Dose Admin Ketamine HCl 50 mg ONCE ONCE IV 10/16/20 16:30 10/16/20 16:31 DC 10/16/20 16:50 50 MG Ondansetron HCl 8 mg ONCE ONCE IVP 10/16/20 17:30 10/16/20 17:31 DC 10/16/20 17:29 8 MG Vital Signs/I&O 10/16/20 16:27 Temp 37.0 Resp 22 B/P (MAP) 185/126 (145) Pulse Ox 94 O2 Delivery Room Air Blood Pressure Mean: 145 Departure Communication (Admissions) 838-patient was given 50 mg of ketamine and a 1 L bag of IV fluids to run open by gravity. She was subsequently able to stand up out of bed and onto the bedside commode. She states this is an improvement as she was previously not able to get out of bed. Impression Primary Impression: Lumbar radiculopathy Disposition: 01 HOME, SELF-CARE Condition: Stable Departure-Patient Inst. Decision time for Depature: 19:12 Referrals: [facility] (PCP/Family) Primary Care Physician Patient Instructions: Radiculopathy Add. Discharge Instructions: 1. Take the steroid as directed. Return to ER for any concerns. Follow-up with your doctor next week. All discharge instructions reviewed with patient and/or family. Voiced understanding. Scripts Prednisone (Prednisone) 20 Mg Tab 40 MG PO DAILY, #6 TAB 0 Refills Prov: PATRICE PAREDES APRN 10/16/20 PATRICE PAREDES APRN Oct 16, 2020 16:32
[2020-10-16 16:53] LABS: BASOPHILS % (AUTO) 1 % (0-10); EOSINOPHILS # (AUTO) 0.2 10^3/uL (0.0-0.3); EOSINOPHILS % (AUTO) 3 % (0-10); HEMATOCRIT 42 % (35-52); HEMOGLOBIN 14.2 g/dL (11.5-16.0); LYMPHOCYTES # (AUTO) 2.5 10^3/uL (1.0-4.0); LYMPHOCYTES % (AUTO) 46 % (12-44); MEAN CORPUSCULAR HEMOGLOBIN 35 pg (25-34); MEAN CORPUSCULAR HGB CONC 34 g/dL (32-36); MEAN CORPUSCULAR VOLUME 103 fL (80-99); MONOCYTES # (AUTO) 0.4 10^3/uL (0.0-1.0); MONOCYTES % (AUTO) 8 % (0-12); NEUTROPHILS # (AUTO) 2.2 10^3/uL (1.8-7.8); NEUTROPHILS % (AUTO) 41 % (42-75); PLATELET COUNT 135 10^3/uL (130-400); WHITE BLOOD COUNT 5.3 10^3/uL (4.3-11.0)
[2020-10-16 16:55] LABS: CHLORIDE 106 MMOL/L (98-107); POTASSIUM 3.7 MMOL/L (3.6-5.0)
[2020-10-16 16:56] LABS: SODIUM 141 MMOL/L (135-145)
[2020-10-16 16:57] LABS: CALCIUM 8.6 MG/DL (8.5-10.1); GLUCOSE 172 MG/DL (70-105)
[2020-10-16 16:59] LABS: CARBON DIOXIDE 27 MMOL/L (21-32)
[2020-10-16 17:01] LABS: CREATININE SERUM 0.74 MG/DL (0.60-1.30); GFR ESTIMATED > 60
[2020-10-16 17:02] LABS: BUN/CREATININE RATIO 11
--- NOTE | 2020-10-16 17:27 | Diagnostic Imaging Report ---
EXAMINATION: CT lumbar spine without contrast from 10/16/2020. TECHNIQUE: Multiple contiguous axial images were obtained through the lumbar spine without the use of intravenous contrast. Sagittal and coronal reformations were then performed. Auto Exposure Controls were utilized during the CT exam to meet ALARA standards for radiation dose reduction. INDICATION: Back pain radiating down the right leg with no known cause. FINDINGS: Axial imaging of the lumbar spine coronal and sagittal reconstructed imaging performed. There is normal height and alignment of the vertebral bodies. No fractures or subluxations appreciated. Bulging disc is suspected at L4-L5 and L5-S1 with bulging disc material right paracentral at the L5-S1 level, causing at least mild central narrowing. These findings are better characterized with MRI, as clinically indicated. IVC filter incidentally noted with a stent in the left common iliac and external iliac artery. The remaining visualized intra-abdominal structures are grossly unremarkable. IMPRESSION: 1. Degenerative findings in the lower lumbar spine as described with no acute osseous abnormality. Other incidental findings, as described above. Dictated by: Dictated on workstation # [id number]
[2020-10-16] MEDS ORDERED: ONDANSETRON 4 MG/2 ML (SDV) Z0FRAN IVP ONE (17:30)
[2020-10-16 18:43] LABS: BILIRUBIN,URINE NEGATIVE (NEGATIVE); CLARITY,URINE CLEAR; COLOR,URINE AMBER; GLUCOSE, URINE (UA) TRACE (NEGATIVE); KETONES,URINE NEGATIVE (NEGATIVE); LEUKOCYTE ESTERASE ,URINE TRACE (NEGATIVE); NITRITE,URINE POSITIVE (NEGATIVE); PROTEIN,URINE TRACE (NEGATIVE)
[2020-10-16 19:03] LABS: AMPHETAMINE SCREEN, URINE NEGATIVE (NEGATIVE); BARBITURATE SCREEN URINE NEGATIVE (NEGATIVE); BENZODIAZEPINES SCREEN URINE NEGATIVE (NEGATIVE); CANNABINOID SCREEN, URINE POSITIVE (NEGATIVE); COCAINE SCREEN URINE NEGATIVE (NEGATIVE); METHADONE STAT NEGATIVE (NEGATIVE); METHAMPHETAMINE SCREEN URINE S NEGATIVE (NEGATIVE); OPIATE SCREEN URINE POSITIVE (NEGATIVE); OXYCODONE STAT NEGATIVE (NEGATIVE); PROPOXYPHENE STAT NEGATIVE (NEGATIVE); TRICYCLIC ANTIDEPRESSANTS SCRE NEGATIVE (NEGATIVE)
[2020-10-16 19:09] LABS: BACTERIA,URINE TRACE /HPF
[2020-10-16] MEDS ORDERED: PRD20T PO (19:13)
[2020-10-16] MEDS ORDERED: HEParin (CENTRAL IV FLUSH) 500 UNIT/5 ML SYR IV ONE (19:15)
[2020-10-16 19:33] VITALS: BP 129/70
== END 2020-10-16 19:33 | disposition home or self-care (01) ==
LOC: EDUNIT# 16:24 → ER 16:26
DX: M54.16 Radiculopathy, lumbar region (principal); J44.9 Chronic obstructive pulmonary disease, unspecified; I10 Essential (primary) hypertension; K21.9 Gastro-esophageal reflux disease without esophagitis; Z79.899 Other long term (current) drug therapy; E03.9 Hypothyroidism, unspecified; G89.29 Other chronic pain; M54.9 Dorsalgia, unspecified; E11.9 Type 2 diabetes mellitus without complications; Z79.890 Hormone replacement therapy; Z88.5 Allergy status to narcotic agent; Z86.711 Personal history of pulmonary embolism; Z86.718 Personal history of other venous thrombosis and embolism; Z79.01 Long term (current) use of anticoagulants; Z79.891 Long term (current) use of opiate analgesic
CPT/HCPCS: 36415; 72131; 80048; 80306; 81000; 85025; 87088

== ENCOUNTER 2020-11-20 12:19 | Outpatient (RCR) | payer MEDICARE, MEDICAID | END 2020-11-25 | disposition home or self-care (01) | LOC: ONC 12:19 | PROVIDERS: ATTEND Internal Medicine Hematology & Oncology | DX: Z45.2 Encounter for adjustment and management of vascular access device (principal); D68.59 Other primary thrombophilia | CPT/HCPCS: 36591; 96523 ==

== ENCOUNTER 2020-12-19 10:47 | Outpatient (RCR) | payer MEDICAID, MEDICARE | END 2021-02-26 | disposition home or self-care (01) | LOC: ONC 10:47 | PROVIDERS: ATTEND Internal Medicine Hematology & Oncology | DX: Z45.2 Encounter for adjustment and management of vascular access device (principal); I87.1 Compression of vein; D68.62 Lupus anticoagulant syndrome; I10 Essential (primary) hypertension; E11.9 Type 2 diabetes mellitus without complications; F41.9 Anxiety disorder, unspecified; E66.9 Obesity, unspecified; R07.89 Other chest pain; Z86.718 Personal history of other venous thrombosis and embolism; Z86.711 Personal history of pulmonary embolism; Z72.0 Tobacco use | CPT/HCPCS: 36591; 96523 ==

== ENCOUNTER 2021-10-26 17:14 | Emergency (ER) | payer MEDICARE, MEDICAID ==
[~2021-10-26] VITALS: Ht 170.1 cm; Wt 74.8 kg
[~2021-10-26 17:14] MED LIST changes: +CYCL10TA25 PO
--- NOTE | 2021-10-26 17:56 | ED Fall/Injury ---
General Chief Complaint: Trauma-Non Activation Stated Complaint: FALL Nursing Triage Note: pt to room by [facility]. 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 pt states her hospice nurse gave her "1mL" of morphine orally before sending her to ER. pt reports 10/10 pain to right lower leg and knee Source: patient Exam Limitations: no limitations (HIEN VENCES) History of Present Illness Date Seen by Provider: Oct 26, 2021 Time Seen by Provider: 17:38 (HIEN VENCES) Initial Comments Patient is a 56-year-old female with a history of superior vena cava syndrome, COPD currently on hospice who presents ED with right leg pain. Patient fell about 2 hours ago. She was brought to the ED by EMS. She states her right leg gave out. She is complaining of right carballo and bilateral foot pain. She denies hitting her head or loss of consciousness. She is currently on blood thinners. She does wear oxygen at home chronically. Was recommended come to ED for fur ther evaluation. She states yesterday she did not feel well. Had episodes of vomiting last night and early this morning. According to family she appeared slightly altered this morning but that has improved. Patient states she does feel somewhat weak and was given her normal pain medication by her hospice nurse without much improvement. She denies of any current chest pain, cough, fever, sore throat, headache, dizziness, abdominal pain, diarrhea, or urinary symptoms. She reports normal urination (RUBIO MCDANIEL) Allergies and Home Medications Allergies Coded Allergies: droperidol (Unverified Allergy, Severe, SOB, 02/20/20) ranitidine HCl (Verified Allergy, Intermediate, SOB, DIAPHORETIC, 02/20/20) Soap (Unverified Allergy, Unknown, RASH, 02/20/20) aspirin (Verified Allergy, Unknown, 02/20/20) codeine (Verified Allergy, Unknown, 02/20/20) ketorolac tromethamine (Verified Allergy, Unknown, 02/20/20) metoclopramide HCl (Unverified Allergy, Unknown, 02/20/20) povidone-iodine (Unverified Allergy, Unknown, RASH, 02/20/20) prochlorperazine edisylate (Unverified Allergy, Unknown, 02/20/20) prochlorperazine maleate (Unverified Allergy, Unknown, 02/20/20) sumatriptan (Verified Allergy, Unknown, 02/20/20) sumatriptan succinate (Verified Allergy, Unknown, 02/20/20) Patient Home Medication List Home Medication List Reviewed: Yes (RUBIO MCDANIEL) Albuterol Sulfate (Ventolin Hfa) 18 Gm Hfa.aer.ad, 2 PUFF IH Q4H PRN for WHEEZING, (Reported) Entered as Reported by: KALIN CHOPRA on 10/10/18 1029 Buprenorphine HCl (Belbuca) 600 Mcg Film, 600 MCG MM Q12H, (Reported) Entered as Reported by: KALIN CHOPRA on 10/10/18 1029 Cyclobenzaprine HCl (Cyclobenzaprine HCl) 10 Mg Tablet, 10 MG PO Q12H, (Reported) Entered as Reported by: KALIN CHOPRA on 10/10/18 1029 Doxycycline Hyclate (Doxycycline Hyclate) 100 Mg Tablet, 100 MG PO BID Prescribed by: EVERETT ERNST on 10/08/18 1402 Fluticasone/Umeclidin/Vilanter (Trelegy Ellipta 100-62.5-25) 1 Each Blst.w.dev, 1 PUFF IH BID, (Reported) Entered as Reported by: KALIN CHOPRA on 10/10/18 1029 Fondaparinux Sodium (Fondaparinux Sodium) 7.5 Mg/0.6 Ml Syringe, 7.5 MG SQ DAILY Prescribed by: WARNER DASILVA on 06/04/19 0821 Levothyroxine Sodium (Levothyroxine Sodium) 75 Mcg Tablet, 75 MCG PO DAILY, (Reported) Entered as Reported by: KALIN CHOPRA on 10/10/18 1029 Morphine Sulfate (Morphine Sulfate IR Tablet) 15 Mg Tablet, 15 MG PO Q12H PRN for PAIN-MILD TO MODERATE, (Reported) Entered as Reported by: KALIN CHOPRA on 10/10/18 1029 Omeprazole (Omeprazole) 20 Mg Capsule.dr, 20 MG PO DAILY, (Reported) Entered as Reported by: KALIN CHOPRA on 10/10/18 1029 Ondansetron (Ondansetron Odt) 8 Mg Tab.rapdis, 8 MG PO Q8H PRN for NAUSEA/VOMITING, (Reported) Entered as Reported by: KALIN CHOPRA on 10/10/18 1029 Prednisone (Prednisone) 20 Mg Tab, 40 MG PO DAILY Prescribed by: PATRICE PAREDES on 10/16/201912 Review of Systems Review of Systems Constitutional: No chills, No diaphoresis; malaise, weakness Eyes: Denies Drainage, Denies Decreased Acuity Ears, Nose, Mouth, Throat: denies ear pain, denies ear discharge Respiratory: No cough Cardiovascular: No chest pain Gastrointestinal: No abdominal pain, No diarrhea; nausea, vomiting Genitourinary: No decreased output, No discharge Musculoskeletal: No back pain; joint pain, muscle pain, muscle stiffness Skin: change in color (RUBIO MCDANIEL) All Other Systems Reviewed Negative Unless Noted: Yes (RUBIO MCDANIEL) Past Oryvdow-Rdcpaz-Hqxfcj Hx Immunizations Up To Date Tetanus Booster (TDap): Less than 5yrs (HIEN VENCES) Seasonal Allergies Seasonal Allergies: No (HIEN VENCES) Past Medical History Surgeries: Yes (port, several bowel obstruction sx, IVC filter, bile duct stent) Abdominal, Appendectomy, Bowel Surgery, Cardiac, Coronary Stent, Eye Surgery, Gallbladder, Hysterectomy, Oophorectomy, Orthopedic, Vascular Surgery Respiratory: Yes (O2 AND trilogy machine) Asthma, Chronic Bronchitis, Pulmonary Embolism, Sleep Apnea, COPD Cardiac: Yes (MULTIPLE DVT'S, vena cava syndrome, 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 Sexually Transmitted Disease: No HIV/AIDS: No Genitourinary: Yes Kidney Stones, Renal Failure Gastrointestinal: Yes Gastroesophageal Reflux, Obstructive Bowel, Pancreatitis, Gall Bladder Disease Musculoskeletal: Yes (CHRONIC GENERALIZED PAIN--NARCOTIC DEPENDENT) Arthritis, Chronic Back Pain Endocrine: Yes (diabetes prior to wt loss) Hypothyroidsim, Diabetes, Non-Insulin dep, Lupus HEENT: Yes Glaucoma Loss of Vision: Left Hearing Impairment: Denies Cancer: No Psychosocial: Yes Anxiety, Suicide Attempts, Depression Integumentary: No Blood Disorders: Yes (DVT'S/P.E.'S ; PAD) Adverse Reaction/Blood Tranf: No (HIEN VENCES) Family Medical History Asthma 19 FATHER G8 SISTER Diabetes mellitus G8 SISTER Hypercholesterolemia G8 SISTER Hypertension G8 SISTER Kidney disease 19 MOTHER Myocardial infarction 19 FATHER No Family History of: AIDS Abdominal aortic aneurysm [place]'s disease Alcoholism Alzheimer's disease Aphasia Arthritis Cancer of mouth Cardiovascular disease Cataracts Colon cancer Completed stroke Congenital disease Congenital heart disease Coronary thrombosis Cystic fibrosis Deafness or hearing loss Dementia Drug abuse Dysphasia Fibrocystic disease of breast Gastroenteritis Glaucoma Headache disorder Infertility Neoplasm Not obtainable due to adoption Osteoporosis Parkinson's disease Prostate cancer Psychosocial problem Respiratory disorder Seizure disorder Severe allergy Thyroid disease Tuberculosis Visual disorder Heart Disease, Cancer, GI Disease ADDITIONAL PAST SURGICAL AND MEDICAL HISTORY -REMOVAL OF BENIGN TUMOR RIGHT NECK -JAIL TPN IN THE PAST LONG HISTORY OF NONCOMPLIANCE (HIEN VENCES) Physical Exam Vital Signs Vital Signs - First Documented 10/26/21 17:18 Temp 37.8 Pulse 115 Resp 20 B/P (MAP) 150/100 (117) Pulse Ox 99 (RUBIO MCDANIEL) Vital Signs Capillary Refill : (HIEN VENCES) Height, Weight, BMI Height: 5'7.00" Weight: 155lbs. 0.0oz. 70.760387wq; 25.00 BMI Method:Stated (HIEN VENCES) General Appearance: WD/WN, no apparent distress HEENT: PERRL/EOMI, normal ENT inspection, TMs normal, pharynx normal Neck: non-tender, full range of motion, supple Cardiovascular: regular rate, rhythm, no edema, no gallop, no JVD Respiratory: chest non-tender, lungs clear, normal breath sounds, no respiratory distress, no accessory muscle use Pelvic: normal external exam Back: normal inspection, no CVA tenderness, no vertebral tenderness Extremities: other (Right lateral mid carballo tenderness, bilateral dorsum foot tenderness. 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, no motor/sensory deficits, alert, normal mood/affect, oriented x 3 Skin: normal color, warm/dry (RUBIO MCDANIEL) [place] Coma Score Best Eye Response: (4) Open Spontaneously Best Verbal Response: (5) Oriented Best Motor Response: (6) Obeys Commands Sara Total: 15 (RUBIO MCDANIEL) Progress/Results/Core Measures Results/Orders Lab Results Laboratory Tests Test 10/26/21 18:55 Range/Units White Blood Count 4.4 4.3-11.0 10^3/uL Red Blood Count 5.04 3.80-5.11 10^6/uL Hemoglobin 13.5 11.5-16.0 g/dL Hematocrit 46 35-52 % Mean Corpuscular Volume 92 80-99 fL Mean Corpuscular Hemoglobin 27 25-34 pg Mean Corpuscular Hemoglobin Concent 29 L 32-36 g/dL Red Cell Distribution Width 15.4 H 10.0-14.5 % Platelet Count 162 130-400 10^3/uL Mean Platelet Volume 11.2 9.0-12.2 fL Immature Granulocyte % (Auto) 1 % Neutrophils (%) (Auto) 75 42-75 % Lymphocytes (%) (Auto) 18 12-44 % Monocytes (%) (Auto) 5 0-12 % Eosinophils (%) (Auto) 0 0-10 % Basophils (%) (Auto) 1 0-10 % Neutrophils # (Auto) 3.3 1.8-7.8 10^3/uL Lymphocytes # (Auto) 0.8 L 1.0-4.0 10^3/uL Monocytes # (Auto) 0.2 0.0-1.0 10^3/uL Eosinophils # (Auto) 0.0 0.0-0.3 10^3/uL Basophils # (Auto) 0.0 0.0-0.1 10^3/uL Immature Granulocyte # (Auto) 0.0 0.0-0.1 10^3/uL Sodium Level 137 135-145 MMOL/L Potassium Level 3.8 3.6-5.0 MMOL/L Chloride Level 93 L 98-107 MMOL/L Carbon Dioxide Level 31 21-32 MMOL/L Anion Gap 13 5-14 MMOL/L Blood Urea Nitrogen 8 7-18 MG/DL Creatinine 0.78 0.60-1.30 MG/DL Estimat Glomerular Filtration Rate 89 BUN/Creatinine Ratio 10 Glucose Level 310 H 70-105 MG/DL Calcium Level 9.1 8.5-10.1 MG/DL Corrected Calcium 9.6 8.5-10.1 MG/DL Total Bilirubin 0.6 0.1-1.0 MG/DL Aspartate Amino Transf (AST/SGOT) 12 5-34 U/L Alanine Aminotransferase (ALT/SGPT) 13 0-55 U/L Alkaline Phosphatase 163 H 40-136 U/L Total Protein 6.5 6.4-8.2 GM/DL Albumin 3.4 3.2-4.5 GM/DL (RUBIO MCDANIEL) My Orders Orders - RUBIO MCDANIEL Ns Iv 1000 Ml (Sodium Chloride 0.9%) (10/26/21 18:13) Cbc With Automated Diff (10/26/21 18:13) Comprehensive Metabolic Panel (10/26/21 18:13) Fentanyl Inj (Sublimaze Injection) (10/26/21 18:16) Ondansetron Injection (Zofran Injectio (10/26/21 19:45) Fentanyl Inj (Sublimaze Injection) (10/26/21 19:42) Heparin (Central Iv Flush) (Heparin ([place] (10/26/21 20:00) (RUBIO MCDANIEL) Medications Given in ED Current Medications Medications Dose Ordered Sig/Aye Route Start Time Stop Time Status Last Admin Dose Admin Ondansetron HCl 4 mg ONCE ONCE IVP 10/26/21 19:45 10/26/21 19:46 DC 10/26/21 19:51 4 MG (RUBIO MCDANIEL) Vital Signs/I&O 10/26/21 17:18 Temp 37.8 Pulse 115 Resp 20 B/P (MAP) 150/100 (117) Pulse Ox 99 (RUBIO MCDANIEL) Blood Pressure Mean: 117 Departure Communication (PCP) X-ray of the right tib-fib and bilateral feet were negative for fracture. Lab work was ordered secondary to not feeling well with weakness. She does wear oxygen daily. History of superior vena cava syndrome and COPD. She denies any current chest pain or shortness of breath. Neuro exam unremarkable. No focal neural deficits, slurred speech, headache, visual changes. Patient was given a liter of fluid. Improvement of pain with IV fentanyl. She does have morphine at home. She is a hospice patient. Patient able to bear some weight at this time. Patient states she is feeling much better at this time. Recommend orthopedic follow-up in 7 to 10 days. If any worsening pain to return back to ED. Crutches as needed. Cristobal wrap for support. Ice and elevate. Return precaution were discussed with patient (RUBIO MCDANIEL) Impression Primary Impression: Foot pain Additional Impression: Pain in right leg Disposition: 01 HOME, SELF-CARE Condition: Stable Departure-Patient Inst. Decision time for Depature: 19:59 (RUBIO MCDANIEL) Referrals: [facility] [place] (PCP/Family) Primary Care Physician GENNY BASHIR MD Patient Instructions: Foot Sprain ED ATTENDING PHYSICIAN NOTE: I WAS PHYSICALLY PRESENT ER PHYSICIAN, BUT I WAS NOT INVOLVED IN ANY DECISION MAKING OR ANY CARE OF THIS PATIENT. (FLORIAN OSULLIVAN DO) HIEN VENCES Oct 26, 2021 17:56 RUBIO MCDANIEL Oct 26, 2021 18:16 FLORIAN OSULLIVAN DO Oct 27, 2021 01:26
[2021-10-26] MEDS ORDERED: NS IV 1000 ML 1,000 ML IV STA (18:13)
[2021-10-26] MEDS ORDERED: fentaNYL INJ 100 MCG/2 ML AMP IVP STA ×2 (18:16→19:42)
--- NOTE | 2021-10-26 18:37 | Diagnostic Imaging Report ---
CLINICAL HISTORY: Left foot pain. COMPARISON: None. TECHNIQUE: 3 views of the left foot. FINDINGS: There is no acute fracture or dislocation of the left foot. Alignment is anatomic. The imaged joint spaces are preserved. There is mild soft tissue edema in the left foot. IMPRESSION: 1. No acute fracture or dislocation is seen in the left foot. 2. Mild soft tissue edema. Dictated by: Dictated on workstation # [id number]
--- NOTE | 2021-10-26 18:40 | Diagnostic Imaging Report ---
CLINICAL HISTORY: Fall. Right leg pain. COMPARISON: None. TECHNIQUE: 4 views of the right tibia and fibula. FINDINGS: There is no acute fracture or dislocation of the right tibia and fibula. Alignment is anatomic. The imaged joint spaces are preserved. No focal osseous lesions are seen. IMPRESSION: 1. No acute fracture or dislocation in the right tibia and fibula. Dictated by: Dictated on workstation # [id number]
--- NOTE | 2021-10-26 18:41 | Diagnostic Imaging Report ---
CLINICAL HISTORY: Right foot pain. Fall. COMPARISON: None. TECHNIQUE: 3 views of the right foot. FINDINGS: There is no acute fracture or dislocation of the right foot. Alignment is anatomic. The imaged joint spaces are preserved. IMPRESSION: 1. No acute fracture or dislocation of the right foot. Dictated by: Dictated on workstation # [id number]
[2021-10-26 19:05] LABS: BASOPHILS % (AUTO) 1 % (0-10); EOSINOPHILS % (AUTO) 0 % (0-10); HEMATOCRIT 46 % (35-52); HEMOGLOBIN 13.5 g/dL (11.5-16.0); LYMPHOCYTES # (AUTO) 0.8 10^3/uL (1.0-4.0); LYMPHOCYTES % (AUTO) 18 % (12-44); MEAN CORPUSCULAR HEMOGLOBIN 27 pg (25-34); MEAN CORPUSCULAR HGB CONC 29 g/dL (32-36); MEAN CORPUSCULAR VOLUME 92 fL (80-99); MEAN PLATELET VOLUME 11.2 fL (9.0-12.2); MONOCYTES # (AUTO) 0.2 10^3/uL (0.0-1.0); MONOCYTES % (AUTO) 5 % (0-12); NEUTROPHILS # (AUTO) 3.3 10^3/uL (1.8-7.8); NEUTROPHILS % (AUTO) 75 % (42-75); PLATELET COUNT 162 10^3/uL (130-400); WHITE BLOOD COUNT 4.4 10^3/uL (4.3-11.0)
[2021-10-26 19:40] LABS: ALBUMIN 3.4 GM/DL (3.2-4.5); BILIRUBIN,TOTAL 0.6 MG/DL (0.1-1.0); CALCIUM 9.1 MG/DL (8.5-10.1); CREATININE SERUM 0.78 MG/DL (0.60-1.30); POTASSIUM 3.8 MMOL/L (3.6-5.0); TOTAL PROTEIN 6.5 GM/DL (6.4-8.2)
[2021-10-26] MEDS ORDERED: ONDANSETRON 4 MG/2 ML (SDV) Z0FRAN IVP ONE (19:45)
[2021-10-26] MEDS ORDERED: HEParin (CENTRAL IV FLUSH) 500 UNIT/5 ML SYR IV ONE (20:00)
[2021-10-26 20:25] VITALS: BP 127/85
== END 2021-10-26 20:28 | disposition home or self-care (01) ==
LOC: EDUNIT# 17:14 → ER 17:16
DX: M79.671 Pain in right foot (principal); M79.604 Pain in right leg; J44.9 Chronic obstructive pulmonary disease, unspecified; Z86.79 Personal history of other diseases of the circulatory system; Z99.81 Dependence on supplemental oxygen; Z79.01 Long term (current) use of anticoagulants; W19.XXXA Unspecified fall, initial encounter; Y92.121 Bathroom in nursing home as the place of occurrence of the external cause
CPT/HCPCS: 36415; 73590; 73630; 80053; 85025

== ENCOUNTER 2021-10-27 22:03 | Emergency (ER) | payer MEDICARE, MEDICAID ==
[2021-10-27 22:12] VITALS: BP 134/82
--- NOTE | 2021-10-27 23:14 | ED Lower Extremity ---
General Chief Complaint: Trauma-Non Activation Stated Complaint: RT HIP AND KNEE PAIN Nursing Triage Note: PT PRESENTS VIA EMS. HOSPICE NURSE CALLED REPORTING PT FELL YESTERDAY AND WAS SEEN HERE FOR RIGHT ANKLE PAIN. REPORTS PT HAS CONTINUED TO HAVE RIGHT KNEE AND HIP PAIN AND IS ON ELIQUIS SO HER PCP IS WORRIED SHE MAY BE INTERNALLY BLEEDING. 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 PT IS CURRENTLY RECEIVING MORPHINE EVERY HOUR WITH LAST DOSE BEING GIIVEN AT 1900. PT CURRENTLY IS WEARING A FENTANYL PATCH THAT IS 100MCG. PT IS ALSO RECEIVING LOREZEPAM EVERY 2 HOURS WITH THE LAST DOSE BEING GIVEN AT 1900. NURSE REPORTS PT IS UNABLE TO STAND OR BARE WEIGHT. Source: patient (POOR HISTORIAN), EMS History of Present Illness Date Seen by Provider: Oct 27, 2021 Time Seen by Provider: 22:10 Allergies and Home Medications Allergies Coded Allergies: droperidol (Unverified Allergy, Severe, SOB, 02/20/20) ranitidine HCl (Verified Allergy, Intermediate, SOB, DIAPHORETIC, 02/20/20) Soap (Unverified Allergy, Unknown, RASH, 02/20/20) aspirin (Verified Allergy, Unknown, 02/20/20) codeine (Verified Allergy, Unknown, 02/20/20) ketorolac tromethamine (Verified Allergy, Unknown, 02/20/20) metoclopramide HCl (Unverified Allergy, Unknown, 02/20/20) povidone-iodine (Unverified Allergy, Unknown, RASH, 02/20/20) prochlorperazine edisylate (Unverified Allergy, Unknown, 02/20/20) prochlorperazine maleate (Unverified Allergy, Unknown, 02/20/20) sumatriptan (Verified Allergy, Unknown, 02/20/20) sumatriptan succinate (Verified Allergy, Unknown, 02/20/20) Patient Home Medication List Albuterol Sulfate (Ventolin Hfa) 18 Gm Hfa.aer.ad, 2 PUFF IH Q4H PRN for WHEEZING, (Reported) Entered as Reported by: KALIN CHOPRA on 10/10/18 1029 Buprenorphine HCl (Belbuca) 600 Mcg Film, 600 MCG MM Q12H, (Reported) Entered as Reported by: KALIN CHOPRA on 10/10/18 1029 Cyclobenzaprine HCl (Cyclobenzaprine HCl) 10 Mg Tablet, 10 MG PO Q12H, (Reporte d) Entered as Reported by: KALIN CHOPRA on 10/10/18 1029 Doxycycline Hyclate (Doxycycline Hyclate) 100 Mg Tablet, 100 MG PO BID Prescribed by: EVERETT ERNST on 10/08/18 1402 Fluticasone/Umeclidin/Vilanter (Trelegy Ellipta 100-62.5-25) 1 Each Blst.w.dev, 1 PUFF IH BID, (Reported) Entered as Reported by: KALIN CHOPRA on 10/10/18 1029 Fondaparinux Sodium (Fondaparinux Sodium) 7.5 Mg/0.6 Ml Syringe, 7.5 MG SQ DAILY Prescribed by: WARNER DASILVA on 06/04/19 0821 Levothyroxine Sodium (Levothyroxine Sodium) 75 Mcg Tablet, 75 MCG PO DAILY, (Reported) Entered as Reported by: KALIN CHOPRA on 10/10/18 1029 Morphine Sulfate (Morphine Sulfate IR Tablet) 15 Mg Tablet, 15 MG PO Q12H PRN for PAIN-MILD TO MODERATE, (Reported) Entered as Reported by: KALIN CHOPRA on 10/10/18 1029 Omeprazole (Omeprazole) 20 Mg Capsule.dr, 20 MG PO DAILY, (Reported) Entered as Reported by: KALIN CHOPRA on 10/10/18 1029 Ondansetron (Ondansetron Odt) 8 Mg Tab.rapdis, 8 MG PO Q8H PRN for NAUSEA/VOMITING, (Reported) Entered as Reported by: KALIN CHOPRA on 10/10/18 1029 Prednisone (Prednisone) 20 Mg Tab, 40 MG PO DAILY Prescribed by: PATRICE PAREDES on 10/16/20 191 Past Zquybej-Clfblz-Ybfanr Hx Immunizations Up To Date Tetanus Booster (TDap): Less than 5yrs Influenza Vaccine Up-to-Date: No; Not Current Seasonal Allergies Seasonal Allergies: No Past Medical History Surgeries: Yes (port, several bowel obstruction sx, IVC filter, bile duct stent) Abdominal, Appendectomy, Bowel Surgery, Cardiac, Coronary Stent, Eye Surgery, Gallbladder, Hysterectomy, Oophorectomy, Orthopedic, Vascular Surgery Respiratory: Yes (O2 AND trilogy machine) Asthma, Chronic Bronchitis, Pulmonary Embolism, Sleep Apnea, COPD Cardiac: Yes (MULTIPLE DVT'S, vena cava syndrome, 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, Menopausal Sexually Transmitted Disease: No HIV/AIDS: No Genitourinary: Yes Kidney Stones, Renal Failure Gastrointestinal: Yes Gastroesophageal Reflux, Obstructive Bowel, Pancreatitis, Gall Bladder Disease Musculoskeletal: Yes (CHRONIC GENERALIZED PAIN--NARCOTIC DEPENDENT) Arthritis, Chronic Back Pain Endocrine: Yes (diabetes prior to wt loss) Hypothyroidsim, Diabetes, Non-Insulin dep, Lupus HEENT: Yes Glaucoma Loss of Vision: Left Hearing Impairment: Denies Cancer: No Psychosocial: Yes Anxiety, Suicide Attempts, Depression Integumentary: No Blood Disorders: Yes (DVT'S/P.E.'S ; PAD) Adverse Reaction/Blood Tranf: No Family Medical History Asthma 19 FATHER G8 SISTER Diabetes mellitus G8 SISTER Hypercholesterolemia G8 SISTER Hypertension G8 SISTER Kidney disease 19 MOTHER Myocardial infarction 19 FATHER No Family History of: AIDS Abdominal aortic aneurysm Nhan's disease Alcoholism Alzheimer's disease Aphasia Arthritis Cancer of mouth Cardiovascular disease Cataracts Colon cancer Completed stroke Congenital disease Congenital heart disease Coronary thrombosis Cystic fibrosis Deafness or hearing loss Dementia Drug abuse Dysphasia Fibrocystic disease of breast Gastroenteritis Glaucoma Headache disorder Infertility Neoplasm Not obtainable due to adoption Osteoporosis Parkinson's disease Prostate cancer Psychosocial problem Respiratory disorder Seizure disorder Severe allergy Thyroid disease Tuberculosis Visual disorder Heart Disease, Cancer, GI Disease ADDITIONAL PAST SURGICAL AND MEDICAL HISTORY -REMOVAL OF BENIGN TUMOR RIGHT NECK -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 0.0oz. 70.967575gs; 25.00 BMI Method:Stated Progress/Results/Core Measures Results/Orders My Orders Orders - FLORIAN OSULLIVAN DO Femur, Right, 2 Views (10/27/21 22:21) Knee, Right, 3 Views (10/27/21 22:21) Pelvis (10/27/21 22:21) Vital Signs/I&O 10/27/21 22:12 Pulse 146 Resp 24 B/P (MAP) 134/82 (99) Pulse Ox 96 O2 Delivery Non Rebreather O2 Flow Rate 15.00 Blood Pressure Mean: 99 Departure Impression Primary Impression: Pain in right leg Disposition: 01 HOME, SELF-CARE Condition: Stable Departure-Patient Inst. Decision time for Depature: 23:36 Referrals: [facility] (PCP/Family) Primary Care Physician Patient Instructions: Muscle and Bone Pain (DC) Add. Discharge Instructions: CONTINUE YOUR REGULAR MEDICATIONS PRESCRIBED FOLLOW UP WITH YOUR DR THIS WEEK FOR FURTHER CARE All discharge instructions reviewed with patient and/or family. Voiced u nderstanding. FLORIAN OSULLIVAN DO Oct 27, 2021 23:14
--- NOTE | 2021-10-28 06:23 | Diagnostic Imaging Report ---
INDICATION: Right knee pain. TIME OF EXAM: 10:51 PM FINDINGS: 3 views right knee were obtained. Alignment is normal. Joint spaces are well maintained. Articular surfaces are smooth. No fracture or dislocation is seen. There is no effusion. IMPRESSION: No acute abnormality is detected. Dictated by: Dictated on workstation # [id number]
--- NOTE | 2021-10-28 06:23 | Diagnostic Imaging Report ---
INDICATION: Right leg pain. Time of Exam: 10:49 PM Two views of the right femur were obtained. Femoral acetabular alignment is normal. Alignment at the knee is normal. Femur appears to be intact. There are no fractures. There are dystrophic calcifications in the soft tissues lateral to the right iliac bone as well as lateral to the midshaft of the right femur. IMPRESSION: Chronic changes. No acute abnormality is detected. Dictated by: Dictated on workstation # [id number]
--- NOTE | 2021-10-28 06:25 | Diagnostic Imaging Report ---
INDICATION: Pelvic pain. Time of Exam: 10:48 PM AP view of the pelvis shows normal femoral acetabular alignment. Both hips are intact. Rami are intact. No fractures are seen. There are multiple left iliac stents noted. There appears to be a port entering the left groin extending into the IVC. There is an IVC filter in place. IMPRESSION: No acute bony abnormality is detected. Dictated by: Dictated on workstation # [id number]
== END 2021-10-28 01:01 | disposition home or self-care (01) ==
LOC: EDUNIT# 22:03 → ER 22:04
DX: M79.604 Pain in right leg (principal); Z86.718 Personal history of other venous thrombosis and embolism; Z79.01 Long term (current) use of anticoagulants
CPT/HCPCS: 72170; 73552; 73562; 99283

== ENCOUNTER 2022-10-29 02:02 | Emergency (ER) | payer OTHER, MEDICARE, MEDICAID ==
--- NOTE | 2022-10-29 02:26 | ED Fall/Injury ---
General Chief Complaint: Lower Extremity Stated Complaint: FALL,RT ANKLE PAIN Source: patient, EMS, old records History of Present Illness Date Seen by Provider: Oct 29, 2022 Time Seen by Provider: 02:05 Initial Comments PT ARRIVES VIA EMS FROM HOME PT IS HOSPICE PATIENT, WITH COPD, HX OF DVT'S IN RIGHT LEG, ON ELIQUIS, AND CHRONIC GENERALIZED PAIN PT FELL TONIGHT PRIOR TO ARRIVAL, HOSPICE STAFF WAS AT SCENE WHEN EMS ARRIVED C/O RIGHT ANKLE PAIN AND RIGHT MEDIAL THIGH PAIN HOSPICE GAVE HER 2 HYDROCODONE 5/325 AND 20 MG MORPHINE PRIOR TO ARRIVAL, AND PT HAS FENTANYL PATCHES IN PLACE ( PT IS ON TOTAL OF 150 MCG FENTANYL PATCH, 20-40 MG MORPHINE EVERY HOUR, 1-2 HYDROCODONE EVERY 4 HOURS, PLUS GABAPENTIN AND TIZANIDINE FOR CHRONIC GENERALIZED PAIN ) PT STATES SHE GOT UP AND LOST HER BALANCE AND FELL SHE DENIES HITTING HER HEAD OR HAVING LOSS OF CONSCIOUSNESS SHE DENIES NECK OR BACK PAIN THAT IS NEW SHE DENIES ANY OTHER PAIN OR INJURIES NO NEW BRUISING OR BLEEDING ANYWHERE PT IS YELLING ON ARRIVAL AND DEMANDING PAIN MEDICATION SOON SHE ARRIVES. SHE IS YELLING "CALL DR. MORRIS" WANTS DR. MORRIS CALLED TO ER SO HE CAN ORDER HER PAIN MEDICATION--ADVISED PT THAT DR MORRIS IS A HOSPITALIST AND IS NOT THE ER PHYSICIAN, AND HE IS NOT UPHOLSTERY REPAIRER. ( HE IS CURRENTLY THE PHYSICIAN FOR [facility] ) PCP: [facility] Allergies and Home Medications Allergies Coded Allergies: droperidol (Unverified Allergy, Severe, SOB, 02/20/20) ranitidine HCl (Verified Allergy, Intermediate, SOB, DIAPHORETIC, 02/20/20) Soap (Unverified Allergy, Unknown, RASH, 02/20/20) aspirin (Verified Allergy, Unknown, 02/20/20) codeine (Verified Allergy, Unknown, 02/20/20) ketorolac tromethamine (Verified Allergy, Unknown, 02/20/20) metoclopramide HCl (Unverified Allergy, Unknown, 02/20/20) povidone-iodine (Unverified Allergy, Unknown, RASH, 02/20/20) prochlorperazine edisylate (Unverified Allergy, Unknown, 02/20/20) prochlorperazine maleate (Unverified Allergy, Unknown, 02/20/20) sumatriptan (Verified Allergy, Unknown, 02/20/20) sumatriptan succinate (Verified Allergy, Unknown, 02/20/20) Patient Home Medication List Home Medication List Reviewed: Yes Albuterol Sulfate (Ventolin Hfa) 18 Gm Hfa.aer.ad, 2 PUFF IH Q4H PRN for WHEEZING, (Reported) Entered as Reported by: KALIN CHOPRA on 10/10/18 1029 Buprenorphine HCl (Belbuca) 600 Mcg Film, 600 MCG MM Q12H, (Reported) Entered as Reported by: KALIN CHOPRA on 10/10/18 1029 Cyclobenzaprine HCl (Cyclobenzaprine HCl) 10 Mg Tablet, 10 MG PO Q12H, (Reported) Entered as Reported by: KALIN CHOPRA on 10/10/18 1029 Doxycycline Hyclate (Doxycycline Hyclate) 100 Mg Tablet, 100 MG PO BID Prescribed by: EVERETT ERNST on 10/08/18 1402 Fluticasone/Umeclidin/Vilanter (Trelegy Ellipta 100-62.5-25) 1 Each Blst.w.dev, 1 PUFF IH BID, (Reported) Entered as Reported by: KALIN CHOPRA on 10/10/18 1029 Fondaparinux Sodium (Fondaparinux Sodium) 7.5 Mg/0.6 Ml Syringe, 7.5 MG SQ DAILY Prescribed by: WARNER DASILVA on 06/04/19 0821 Levothyroxine Sodium (Levothyroxine Sodium) 75 Mcg Tablet, 75 MCG PO DAILY, (Reported) Entered as Reported by: KALIN CHOPRA on 10/10/18 1029 Morphine Sulfate (Morphine Sulfate IR Tablet) 15 Mg Tablet, 15 MG PO Q12H PRN for PAIN-MILD TO MODERATE, (Reported) Entered as Reported by: KALIN CHOPRA on 10/10/18 1029 Omeprazole (Omeprazole) 20 Mg Capsule.dr, 20 MG PO DAILY, (Reported) Entered as Reported by: KALIN CHOPRA on 10/10/18 1029 Ondansetron (Ondansetron Odt) 8 Mg Tab.rapdis, 8 MG PO Q8H PRN for NAUSEA/VOMITING, (Reported) Entered as Reported by: KALIN CHOPRA on 10/10/18 1029 Prednisone (Prednisone) 20 Mg Tab, 40 MG PO DAILY Prescribed by: PATRICE PAREDES on 10/16/20 1913 Review of Systems Review of Systems Constitutional: no symptoms reported Respiratory: no symptoms reported Cardiovascular: no symptoms reported Musculoskeletal: see HPI Skin: no symptoms reported Psychiatric/Neurological: No Symptoms Reported Past Qevebql-Fegwvg-Yjsrei Hx Patient Social History Tobacco Use?: Yes (> 1 PPD) Tobacco type used: Cigarettes Smoking Status: Current Everyday Smoker Substance use?: No Alcohol Use?: No Immunizations Up To Date Tetanus Booster (TDap): Less than 5yrs Seasonal Allergies Seasonal Allergies: No Past Medical History Surgeries: Yes (port, several bowel obstruction sx, IVC filter, bile duct stent) Abdominal, Appendectomy, Bowel Surgery, Cardiac, Coronary Stent, Eye Surgery, Gallbladder, Hysterectomy, Oophorectomy, Orthopedic, Vascular Surgery Respiratory: Yes (O2 AT 8L/NC CONTINUOUSLY AND trilogy machine; ) Asthma, Chronic Bronchitis, Pulmonary Embolism, Sleep Apnea, COPD Currently Using CPAP: No Currently Using BIPAP: No Cardiac: Yes (MULTIPLE DVT'S;SUPERIOR VENA CAVA SYND;MULT P.E.'S DUE TO LUPUS;RBBB/LAFB; ) Coronary Artery Disease, Deep Vein Thrombosis, High Cholesterol, Hypertension, Peripheral Vascular Neurological: Yes Neuropathy Reproductive Disorders: Yes Female Reproductive Disorders: 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, 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 Sexually Transmitted Disease: No HIV/AIDS: No Genitourinary: Yes (KIDNEY STONE X 1--NO INTERVENTION) Kidney Stones, Renal Failure Gastrointestinal: Yes (MULTIPLE SURGERIES FOR BOWEL OBSTRUCTIONS;APPY;KEKE) Gastroesophageal Reflux, Obstructive Bowel, Pancreatitis, Gall Bladder Disease Musculoskeletal: Yes (CHRONIC GENERALIZED PAIN--NARCOTIC DEPENDENT) Arthritis, Chronic Back Pain Endocrine: Yes Diabetes, Insulin dep, Hypothyroidsim, Lupus HEENT: Yes Glaucoma Loss of Vision: Left Hearing Impairment: Denies Cancer: No Psychosocial: Yes Anxiety, Suicide Attempts, Depression Integumentary: No Blood Disorders: Yes (DVT'S/P.E.'S ; PAD) Adverse Reaction/Blood Tranf: No Family Medical History Asthma 19 FATHER G8 SISTER Diabetes mellitus G8 SISTER Hypercholesterolemia G8 SISTER Hypertension G8 SISTER Kidney disease 19 MOTHER Myocardial infarction 19 FATHER No Family History of: AIDS Abdominal aortic aneurysm [place]'s disease Alcoholism Alzheimer's disease Aphasia Arthritis Cancer of mouth Cardiovascular disease Cataracts Colon cancer Completed stroke Congenital disease Congenital heart disease Coronary thrombosis Cystic fibrosis Deafness or hearing loss Dementia Drug abuse Dysphasia Fibrocystic disease of breast Gastroenteritis Glaucoma Headache disorder Infertility Neoplasm Not obtainable due to adoption Osteoporosis Parkinson's disease Prostate cancer Psychosocial problem Respiratory disorder Seizure disorder Severe allergy Thyroid disease Tuberculosis Visual disorder Heart Disease, Cancer, GI Disease SOCIAL HISTORY: -SMOKES > 1 PPD -ETOH--DENIES USE -DRUGS-- + THC USE ADDITIONAL PAST SURGICAL AND MEDICAL HISTORY: -MULTIPLE DVT'S IN BOTH ARMS AND LEGS, BUT ESPECIALLY TO RIGHT LEG DUE TO LUPUS -MULTIPLE P.E.'S DUE TO LUPUS -SUPERIOR VENA CAVA SYNDROME -PERIPHERAL ARTERY DISEASE -NARCOTIC DEPENDENT FOR CHRONIC GENERALIZED PAIN -CHRONIC ABDOMINAL PAIN -CHRONIC PANCREATITIS -MULTIPLE ABDOMINAL SURGERIES FOR BOWEL OBSTRUCTIONS "21 BOWEL OBSTRUCTIONS" AND CLAIMS SHE HAS HAD SURGERY FOR EVERY ONE OF THEM, PER PT -BILE DUCT STENT -IVC FILTER -APPENDECTOMY -CHOLECYSTECTOMY -HYSTERECTOMY/BILATERAL SALPINGO-OOPHORECTOMY -CARDIAC CATHS WITH STENT -EYE SURGERY -REMOVAL OF BENIGN TUMORS FROM RIGHT NECK, LEFT SHOULDER AND ABDOMEN -JAIL TPN IN THE PAST -MULTITUDE OF PORTS AND CENTRAL LINES--CURRENTLY HAS A PORT IN LEFT GROIN OF 10/29/22 -LEFT ILIAC STENT--PT STATES SHE HAD THEM IN BOTH ILIAC ARTERIES "BUT THE RIGHT ONE MIGRATED TO THE LEFT" -THROMBECTOMIES STRESS TEST 06/27/[address] HALL: CONCLUSION: 1. The patient tolerated Lexiscan well. 2. No ischemia or infarction on SPECT images. 3. Normal left ventricular size with normal contractility. Calculated ejection fraction 66%. LONG HISTORY OF NONCOMPLIANCE PT IS ON HOSPICE FOR COPD Physical Exam Vital Signs Capillary Refill : Height, Weight, BMI Height: 5'7.00" Weight: 155lbs. 0.0oz. 70.980138rf; 25.00 BMI Method:Stated General Appearance: no apparent distress, other (REEKS OF CIGARETTES, PILLOW AND CLOTHING WITH MULTIPLE GONZALES FROM CIGARETTES. PT IS FILTHY AND UNKEMPT ) Cardiovascular: normal peripheral pulses, regular rate, rhythm Respiratory: chest non-tender, normal breath sounds Peripheral Pulses: 2+ Dorsalis Pedis (R), 2+ Left Dors-Pedis (L) Gastrointestinal: non tender Extremities: other (EXTENSIVE CHRONIC VENOUS STASIS CHANGES TO BILATERAL LOWER LEGS--MUCH GREATER ON RIGHT. THERE ARE ALSO CHRONIC STASIS CHANGES TO RIGHT LATERAL THIGH AREA WELL. THERE IS DIFFUSE TENDERNESS TO RIGHT ANKLE, WITHOUT SIGNIFICANT SWELLING ( TRACE TO 1+ EDEMA ON RIGHT) NO BRUISING, NO DEFORMITY, NO SHORTNENING OR ROTATION. DISTAL PULSES +2/4 BILATERALLY. MOTOR AND SENSORY INTACT. MILD TENDERNESS TO RIGHT MEDIAL THIGH. NO SWELLING OR BRUISING TO THIS AREA. LEFT LEG WITH TRACE EDEMA. NON-TENDER. 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, no motor/sensory deficits, alert, oriented x 3 Skin: normal color, warm/dry [place] Coma Score Best Eye Response: (4) Open Spontaneously Best Verbal Response: (5) Oriented Best Motor Response: (6) Obeys Commands Procedures/Interventions Splinting and Joint Reduction : Pre-Proc Neuro Vasc Exam: normal Post-Proc Neuro Vasc Exam: normal Hand-Made Type: orthoglass Splint Application: Short Leg Progress/Results/Core Measures Results/Orders My Orders Orders - FLORIAN OSULLIVAN DO Chest 1 View, Ap/Pa Only (10/29/22 02:10) Femur, Right, 2 Views (10/29/22 02:10) Tibia/Fibula, Right, 2 Views (10/29/22 02:10) Ankle, Right, 3 Views (10/29/22 02:10) Pelvis 1 To 2 Views (10/29/22 02:10) Ed Ortho/Other Supplies Order (10/29/22 03:02) Ortho Glass (10/29/22 03:02) Hydrocodone/Apap 10/325 Tablet (Lortab 1 (10/29/22 03:15) Hydrocodone/Apap 10/325 Tablet (Lortab 1 (10/29/22 03:13) Medications Given in ED Current Medications Medications Dose Ordered Sig/Aye Route Start Time Stop Time Status Last Admin Dose Admin Acetaminophen/ Hydrocodone Bitart 1 ea ONCE ONCE PO 10/29/22 03:15 10/29/22 03:17 DC 10/29/22 03:15 1 EA Progress Progress Note : Progress Note DISCUSSED TEST RESULTS WITH PT AND SON, ANTICIPATED COURSE, SPLINT CARE, SYMPTOMATIC TREATMENT, NEED FOR FOLLOW UP WITH ORTHOPEDIC SURGEON, AND RETURN PRECAUTIONS. SPLINT CHECKED AND PT IS NEUROVASCULARLY INTACT AFTER SPLINTING. PT HAS A WALKER, A WHEELCHAIR AND A BEDSIDE COMMODE AT HOME BOTH OF HER SONS LIVE WITH HER AND CAN ASSIST HER AT HOME WITH ADL'S ADDITIONALLY, SHE IS ON HOSPICE AND CAN GET ASSISTANCE WITH ADL'S THROUGH THEM WELL SHE IS ON LARGE DOSES OF PAIN MEDICATION DAILY, THEREFORE NO ADDITIONAL PAIN MEDICATIONS WILL BE ORDERED. REVIEWED PRIOR RECORDS INCLUDING ER VISITS, ADMITS/H&P'S/CONSULTS/DISCHARGE SUMMARIES, TESTS/PROCEDURES. Diagnostic Imaging Comments XRAYS ---ALL PENDING RADIOLOGIST REVIEW CXR--COPD/CHRONIC LUNG CHANGES, NO ACUTE PROCESS PELVIS XRAY--NO ACUTE PROCESS RIGHT FEMUR--NO ACUTE PROCESS RIGHT TIB-FIB--BIMALLEOLAR FRACTURE; HEALED/HEALING FRACTURE OF PROXIMAL FIBULA WITH CALLOUS FORMATION RIGHT ANKLE--BIMALLEOLAR FRACTURE. Reviewed: Reviewed by Me Departure Impression Primary Impression: Fall from standing Additional Impression: Closed bimalleolar fracture of right ankle Disposition: HOME, SELF-CARE Condition: Stable Departure-Patient Inst. Decision time for Depature: 03:00 [address]errals: [facility] [place] (PCP/Family) Primary Care Physician TROY اللعي MD Patient Instructions: Preventing Falls ED, Ankle Fracture ED, SPLINT CARE Add. Discharge Instructions: WEAR SPLINT AT ALL TIMES ELEVATE LEG AND FOOT MUCH POSSIBLE NO WEIGHT BEARING--USE YOUR WHEELCHAIR AT ALL TIMES USE YOUR BEDSIDE COMMODE WITH ASSISTANCE AT ALL TIMES TAKE YOUR HOME PAIN MEDICATIONS PRESCRIBED FOLLOW UP WITH DR. العلي IN A FEW DAYS FOR FURTHER CARE--CALL IN THE MORNING TO SCHEDULE AN APPOINTMENT All discharge instructions reviewed with patient and/or family. Voiced understan ding. FLORIAN OSULLIVAN DO Oct 29, 2022 02:26
[2022-10-29 03:44] VITALS: BP 95/76
--- NOTE | 2022-10-29 06:13 | Diagnostic Imaging Report ---
INDICATION: Pain post fall TECHNIQUE: Frontal and lateral views of the right femur CORRELATION STUDY: 10/27/2021 FINDINGS: Examination of the femur demonstrates no evidence for acute bony abnormality or fracture of the femur. No chloe bony destructive change. Imaging of the hip and knee are unremarkable. Dystrophic calcific aeration soft tissues lateral to right iliac bone and lateral to the midshaft of the right femur unchanged. IMPRESSION: 1. Negative for acute bony abnormality of the femur. Dictated by: Dictated on workstation # [id number]
--- NOTE | 2022-10-29 06:13 | Diagnostic Imaging Report ---
INDICATION: Pain post fall TECHNIQUE: Three views of the right ankle 2:46 AM CORRELATION STUDY: None FINDINGS: Relatively nondisplaced transversely oriented fracture at the medial malleolus. Nondisplaced longitudinally to obliquely oriented fracture of the distal fibula. Also suspect for nondisplaced longitudinally oriented fracture of the distal posterior tibia. Ankle mortise maintained. Soft tissue edema. IMPRESSION: Nondisplaced trimalleolar fracture with associated soft tissue swelling. Dictated by: Dictated on workstation # [id number]
--- NOTE | 2022-10-29 06:15 | Diagnostic Imaging Report ---
INDICATION: Pain post fall TECHNIQUE: AP and lateral views of the right tibia and fibula CORRELATION STUDY: 10/26/2021 FINDINGS: Old healed proximal fibular shaft fracture. Findings positive for relatively nondisplaced trimalleolar fracture at the level of the ankle. Better assessed at dedicated ankle views. Visualized portion of the knee unremarkable. Mild generalized soft tissue edema. IMPRESSION: 1.Relatively nondisplaced trimalleolar fracture at the ankle. Better assessed at dedicated ankle views. 2. Findings compatible with previous old healed proximal fibular shaft fracture. Dictated by: Dictated on workstation # [id number]
--- NOTE | 2022-10-29 06:15 | Diagnostic Imaging Report ---
INDICATION: Pain post fall. TECHNIQUE: Single AP pelvis. CORRELATION STUDY: 10/27/2021 FINDINGS: Pelvis intact without evidence for acute displaced pelvic fracture. Bilateral hip joints maintained. Pubic rami intact. Multiple left-sided iliac stents are present. There is an Kcabjp-c-Rafc catheter projecting through the stents extending into the IVC and above the film. IMPRESSION: 1. Negative for acute displaced pelvic fracture. Dictated by: Dictated on workstation # [id number]
--- NOTE | 2022-10-29 06:16 | Diagnostic Imaging Report ---
INDICATION: Pain post fall TECHNIQUE: Single view chest 2:40 AM CORRELATION STUDY: 06/03/2019 FINDINGS: Heart size within normal limits. Azygos vein very mildly distended, may reflect a very mild edema. Lung bryan with prominent interstitial markings likely largely chronic. No infiltrate. Small right pleural effusion. Multiple surgical clips soft tissue neck on the right. IMPRESSION: 1. Findings suggest mild edema. Also chronic change about the lung parenchyma. Dictated by: Dictated on workstation # [id number]
== END 2022-10-29 03:44 | disposition home or self-care (01) ==
LOC: EDUNIT# 02:02 → ER 02:05
DX: S82.841A Displaced bimalleolar fracture of right lower leg, initial encounter for closed fracture (principal); J44.9 Chronic obstructive pulmonary disease, unspecified; F17.210 Nicotine dependence, cigarettes, uncomplicated; Z88.5 Allergy status to narcotic agent; Z86.718 Personal history of other venous thrombosis and embolism; Z79.01 Long term (current) use of anticoagulants; Z99.81 Dependence on supplemental oxygen; W18.30XA Fall on same level, unspecified, initial encounter
CPT/HCPCS: 29515; 71045; 72170; 73552; 73590; 73610